=== PATIENT | female | born 1950 | race Caucasian/White ===

== ENCOUNTER 2019-07-11 01:48 | Emergency (ER) | payer MEDICARE, MEDICAID, SELFPAY ==
[2019-07-11 01:57] VITALS: BP 163/74; PULSE 77; RESP 16; TEMP 36.4; O2SAT 98; BMI 31.2
--- NOTE | 2019-07-11 02:05 | ED_ITS ---
Entered by Tram Arauz, acting as scribe for Everette Koroma MD Jul 11, 2019 01:48 HPI - Weakness General: Chief complaint: Weakness Stated complaint: LOW BLOOD SUGER Time Seen by Provider: 07/11/19 02:00 Source: patient and family Mode of arrival: ambulatory History of Present Illness: HPI Narrative: 68 y/o female presents to the ED with complaint of low BS and weakness. Pt states she accidentally took 40 units of novalog at 2130, instead of her Levemir. Her sugar was 76 at home; 117 upon triage. She has had increased lethargy since then. Complaint: lack of energy Onset (ago): hour(s) Duration: now resolved Severity: mild Associated symptoms: Denies chest pain, chills, dysuria, easy bruising, fever(s), headache(s), nausea or vomiting Review of Systems Const: Denies: fever, chills, body aches or change in appetite Eyes: Denies: blurry vision or eye discomfort ENMT: Denies: throat pain or dental pain Card: Denies: chest pain Resp: Denies: shortness of breath GI: Denies: abdominal pain, nausea, vomiting or diarrhea : Denies: painful urination Musc: Denies: neck pain or back pain Skin/Breast: Denies: rash Neuro: Denies: headache Psych: Denies: depression Alonzo/Lymph: Denies: easy bruising All/Imm: Denies: hives PFSH ED PFSH: Statuses (acute, chronic, etc) shown below reflect problem list status as previously entered and may not be historically accurate Social History Smoking and tobacco status: former smoker Physical Exam Const: COMMON NORMALS: no apparent distress, oriented x3, healthy appearing and alert HENMT: COMMON NORMALS: normocephalic and head/scalp atraumatic HEAD & SCALP: normocephalic and atraumatic Eye: COMMON NORMALS: PERRL and EOMs intact bilaterally PUPIL: Yes PERRL Neck/C-Spine: COMMON NORMALS: full ROM and supple Chest: COMMONS NORMALS: inspection of chest normal and palpation of chest normal Resp: COMMON NORMALS: normal respiratory effort, no retractions, no use of accessory muscles and clear to auscultation bilaterally AUSCULTATION: clear to auscultation bilaterally Cardio: COMMON NORMALS: regular rate, regular rhythm and no murmurs RATE: regular rate RHYTHM: regular rhythm GI: COMMON NORMALS: normal to inspection, nondistended, normoactive bowel sounds, soft to palpation, non-tender and no masses PALPATION: Yes soft Extremity: COMMON NORMALS: normal to inspection and full ROM Neuro: COMMON NORMALS: oriented x3, moves all extremities and no focal motor deficits SENSORIUM/ORIENTATION: Yes alert Psych: COMMON NORMALS: mental status grossly normal, thought process normal and cooperative THOUGHT PROCESS: normal thought process Skin: COMMON NORMALS: no rashes or lesions noted and no wounds GENERAL SKIN EXAM: no rashes or lesions noted Course Vital Signs: Vital signs: Vital Signs Temperature 97.6 F 07/11/19 01:57 Pulse Rate 67 07/11/19 03:01 Respiratory Rate 15 07/11/19 03:01 Blood Pressure 137/61 07/11/19 03:01 Pulse Oximetry 97 07/11/19 03:01 MDM - Weakness MDM Narrative: Medical decision making narrative: Patient presents here with hyperglycemia from taking too much insulin on accident. Patient took the insulin 4 hours ago and this past did speak. Patient's glucose is stabilized here and she is stable for discharge. Patient is to follow-up with primary care doctor in 3 to 5 days return if worsening. Lab Data: Labs: Lab Results 07/11/19 07/11/19 07/11/19 Range/Units 01:56 02:38 02:58 POC Glucose 117 140 140 (70-110) mg/dL Discharge Plan Discharge Patient Disposition: Home, Self-Care Clinical Impression: Hypoglycemia Condition: Stable Discharge Orders: Discharge Order (Routine); Ordered 07/11/19 Ordered By: Everette Koroma Referrals: Aquilino Kirby MD [Family Provider] - 4-7 days Discharge Diet: Advance as tolerated Discharge Activity: Resume usual activity Patient Instructions: Diabetic Hypoglycemia (ED) Discharge Date/Time: 07/11/19 03:02 Coding Level of Care Code ED Blind Eyeletter for Chg Fwd Exam Problem Focused The documentation recorded by the Davonte byrd Ashley, accurately reflects the service I personally performed and the decisions made by Ga blair Korby, MD Jul 11, 2019 01:48
[2019-07-11 02:12] LABS: Glucose Point of Care 117 mg/dL (70-110)
--- NOTE | 2019-07-11 02:15 | PC.NURSE ---
Patient reports that she took 40 units of her insulin by accident last night around 2100. Patient states that she has been trying to keep her BS up by eating some sugar. Patient reports that she feels very tired and just concerned that her BS is going to decrease.
[2019-07-11 02:42] LABS: Glucose Point of Care 140 mg/dL (70-110)
[2019-07-11 03:01] VITALS: BP 137/61; PULSE 67; RESP 15; O2SAT 97
[2019-07-11 03:03] LABS: Glucose Point of Care 140 mg/dL (70-110)
== END 2019-07-11 03:02 | disposition home or self-care (01) ==
PROVIDERS: Emergency Provider Emergency Medicine; Family Provider Family Medicine
DX: E16.0 Drug-induced hypoglycemia without coma (principal); T38.3X5A Adverse effect of insulin and oral hypoglycemic [antidiabetic] drugs, initial encounter; Z87.891 Personal history of nicotine dependence
CPT/HCPCS: 36416; 82962; 99281; 99282

== ENCOUNTER 2019-08-25 14:00 | Outpatient (CLI) | payer MEDICARE, MEDICAID, SELFPAY ==
--- NOTE | 2019-08-25 14:09 | CT_ITS ---
WS: [id number] CT scan of the abdominal aorta and arteries of the lower extremities. Additional two-dimensional joe nal and sagittal reconstruction was performed. MIP images were also performed. 08/25/2019 Clinical Data: PERIPHERAL ARTERIAL DISEASE Comparison: CTA abdominal aorta, 10/03/2012 DLP: 1340.[address] scans at [facility] use at least one of these dose optimization techniques: automat ed exposure control; mA and/or kV adjustment per patient size (includes targeted exams where dose is matched to clinical indication); or iterative reconstruction. Findings: The abdominal aorta shows atherosclerotic dilatation but no aneurysm. There is calcification of the w all with mural thrombus throughout the abdominal aorta. The patient is had a stent graft from the low er abdominal aorta extending into the right common iliac artery. The right internal iliac artery show s a central filling defect seen best at axial image 131 of 483. Contrast does flow about this central intraluminal filling defect. The common femoral arteries can bifurcate in the superficial femoral ar teries, popliteal arteries and arteries of the trifurcations show atherosclerotic change on the surfa ce but no occlusions or significant stenoses. Contrast material flows down to the ankles and feet. The lower lungs show no nodules masses or effusions. The intra-abdominal contents are unremarkable. T here are clips in the gallbladder fossa from cholecystectomy. The pelvis is unremarkable. There is de generative arthritic change of the lower thoracic vertebral bodies. There is bilateral spondylolysis at L5-S1. Impression: 1. 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 2. Distal abdominal aortic stent with extension into right common iliac artery. 3. Unusual central filling defect of the right internal iliac artery. 4. Moderate peripheral vascular disease of all the arteries of the lower extremities.
[2019-08-25 14:33] LABS: Blood Urea Nitrogen 21 mg/dL (8-23); Glomerular Filtration Rate 40.7 mL/min (90-130)
[2019-08-25] MEDS: iodixanol 320 mg/mL 100mL Btl IV (14:49)
== END 2019-08-25 14:01 | disposition home or self-care (01) ==
PROVIDERS: Family Provider Family Medicine; PCP Physician Assistant; Visit Provider Surgery
DX: I73.9 Peripheral vascular disease, unspecified (principal); I70.0 Atherosclerosis of aorta
CPT/HCPCS: 75635; 82565; 84520; Q9967

== ENCOUNTER 2019-10-19 17:58 | Inpatient (IN) | payer MEDICARE, MEDICAID, SELFPAY ==
[2019-10-19] VITALS (7 sets, daily range): BP systolic 139–173; BP diastolic 68–84; PULSE 87–93; RESP 15–18; TEMP 36.8–37.1; O2SAT 95–100; BMI 31.6
[2019-10-19 19:43] LABS: Basophils % 0.3 %; Eosinophils # 0.2 10^3/uL (0.0-0.8); Eosinophils % 1.7 %; Hematocrit 41.2 % (37.0-47.0); Hemoglobin 14.3 g/dL (11.5-15.3); Lymphocytes % 22.4 %; Mean Corpuscular HGB Conc 34.7 g/dL (30.0-36.0); Mean Corpuscular Hemoglobin 29.1 pg (28.0-34.0); Mean Corpuscular Volume 83.7 fL (81-99); Mean Platelet Volume 9.8 fL (7.4-10.4); Monocytes # 0.6 10^3/uL (0.2-0.9); Monocytes % 6.7 %; Neutrophils # 6.1 10^3/uL (1.8-7.7); Neutrophils % 68.3 %; Nucleated Red Blood Cells % 0 %; Platelet Count 363 10^3/cmm (130-400); Red Blood Count 4.92 10^6/uL (4.1-5.3); Red Cell Distribution Width 12.8 % (12.1-15.1)
[2019-10-19 20:01] LABS: Alanine Aminotransferase 14 U/L (0-33); Albumin Level 4.1 g/dL (3.5-5.2); Alkaline Phosphatase 80 IU/L (35-105); Anion Gap 16.7 (5-19); Aspartate Amino Transferase 29 U/L (0-32); Blood Urea Nitrogen 12 mg/dL (8-23); Calcium 9.9 mg/dL (8.5-10.5); Carbon Dioxide 27 mmol/L (22-29); Chloride 77 mmol/L (98-107); Globulin 3.2 g/dL (1.3-4.6); Glomerular Filtration Rate 44.7 mL/min (90-130); Glucose 185 mg/dL (65-115); Osmolality Calculated 245 mOsm/kg (285-295); Potassium 3.7 mmol/L (3.5-5.1); Total Bilirubin 0.6 mg/dL (0.15-1.2); Total Protein 7.3 g/dL (6.6-8.7)
[2019-10-19 20:08] LABS: Sodium 117 mmol/L (136-145)
--- NOTE | 2019-10-19 20:09 | W.ED.GENADLT ---
HPI - General Adult General: Chief complaint: General Medical Stated complaint: abnormal labs Time Seen by Provider: 10/19/19 20:09 Source: patient and RN notes reviewed History of Present Illness: HPI narrative: 68-year-old female sent by PCP for low sodium. Patient states that she has had generalized weakness for a week or more gradually worsening. She says day by day this gets worse as well as she feels a little fuzzy or confused at times. She had some loose stool last week that is now back to normal. No vomiting. No new medications. She tells me she is taking all of her medicines as directed. On review of systems she admits to some coughing that she attributes to seasonal allergies but does not feel short of breath at this time. No fever. Associated symptoms: Reports confusion (fuzzy at times and has trouble thinking but not actually confused); Deny chest pain, dyspnea, headache(s), nausea, rash or vomiting Review of Systems General: Reports: 10 or more systems reviewed and unremarkable except in HPI and below Const: Denies: fever(s) or chills Eyes: Denies: change in vision ENMT: Denies: throat pain Card: Denies: chest pain Resp: Denies: dyspnea GI: Denies: abdominal pain, nausea, vomiting or change in bowel habits : Denies: difficulty voiding Musc: Denies: muscle weakness Skin/Breast: Denies: rash Neuro: Reports: difficulty walking and confusion (fuzzy at times and has trouble thinking but not actually confused); Denies: headache(s) Psych: Denies: hopelessness or suicidal ideation Endo: Denies: polyuria Alonzo/Lymph: Denies: easy bruising or easy bleeding All/Imm: Denies: urticaria PFSH ED PFSH: Family History (Updated 07/20/19 @ 11:03 by Janet Zapata LPN) Other Anesthesia complication Social History Smoking and tobacco status: former smoker Physical Exam Const: COMMON NORMALS: no acute distress, average body habitus, patient oriented x3, no limitations, healthy appearing, alert and well nourished HENMT: COMMON NORMALS: normocephalic, external ears normal and Normal external nose present HEAD & SCALP: normocephalic NOSE: Normal external nose present EXTERNAL EAR: Yes external ears normal MOUTH: Normal oral and palatal mucosa present THROAT: posterior oropharynx normal Eye: COMMON NORMALS: Equal, round and reactive pupils present, EOMs intact bilaterally, conjunctivae normal, no scleral icterus and normal visual manning by confrontation CONJUNCTIVA: Yes conjunctivae normal PUPIL: Yes Equal, round and reactive pupils present Neck/C-Spine: COMMON NORMALS: full ROM, no lymphadenopathy, supple, no meningeal signs and no JVD CERVICAL SPINE: Yes cervical ROM normal Lymph: LYMPHATIC: no lymphadenopathy noted Chest: COMMONS NORMALS: normal inspection of the chest Resp: COMMON NORMALS: normal respiratory effort, No retractions, No use of accessory muscles and clear to auscultation bilaterally AUSCULTATION: clear to auscultation bilaterally Cardio: COMMON NORMALS: no JVD, regular rate, regular rhythm, No gallops present (Cardio), No clicks present (Cardio), No murmurs present (Cardio) and No rub (Cardio) RATE: regular rate RHYTHM: regular rhythm GI: COMMON NORMALS: Normal to inspection, nondistended, normoactive bowel sounds present, Soft to palpation and non-tender AUSCULTATION: Yes normoactive bowel sounds PALPATION: Yes Soft to palpation : COMMON NORMALS: Yes no CVA tenderness BLADDER/KIDNEY EXAM: Yes no CVA tenderness Back/Pelvis: COMMON NORMALS: no CVA tenderness Extremity: COMMON NORMALS: normal to inspection Neuro: COMMON NORMALS: patient oriented x3 SENSORIUM/ORIENTATION: Yes alert MENINGEAL SIGNS: Yes no meningeal signs SPEECH: speech normal Psych: COMMON NORMALS: mental status grossly normal, Normal thought process present, cooperative, normal affect, speech normal, activity/motor behavior normal, denies hallucinations, denies homicidal ideation and denies suicidal ideation SPEECH: Yes normal speech THOUGHT PROCESS: Normal thought process present Skin: COMMON NORMALS: no rashes or lesions noted GENERAL SKIN EXAM: no rashes or lesions noted Course Vital Signs: Vital signs: Vital Signs Temperature 98.2 F 10/19/19 18:10 Pulse Rate 92 10/19/19 20:30 Respiratory Rate 18 10/19/19 20:30 Blood Pressure 172/84 10/19/19 20:30 Pulse Oximetry 98 10/19/19 20:30 MDM - General Adult MDM Narrative: Medical decision making narrative: Hyponatremia without clear cause, patient is on hydrochlorothiazide but that is on a new medication. She is nontoxic-appearing. I discussed with the hospitalist who will admit her I have placed bridge orders and included a BMP. Continue IV fluids she received a bolus here and will get maintenance fluids of normal saline at 75 mL's an hour. She is alert and oriented x3 and can go to the [facility] floor at this point. Lab Data: Labs: Lab Results 10/19/19 10/19/19 Range/Units 19:00 19:00 WBC 9.0 (4.0-10.0) 10^3/ uL RBC 4.92 (4.1-5.3) 10^6/u L Hgb 14.3 (11.5-15.3) g/dL Hct 41.2 (37.0-47.0) % MCV 83.7 (81-99) fL MCH 29.1 (28.0-34.0) pg MCHC 34.7 (30.0-36.0) g/dL RDW 12.8 (12.1-15.1) % Plt Count 363 (130-400) 10^3/c mm MPV 9.8 (7.4-10.4) fL Neut % (Auto) 68.3 % Lymph % (Auto) 22.4 % [place] % (Auto) 6.7 % Eos % (Auto) 1.7 % Baso % (Auto) 0.3 % Neut # (Auto) 6.1 (1.8-7.7) 10^3/u L Lymph # (Auto) 2.0 (0.8-4.8) 10^3/u L [place] # (Auto) 0.6 (0.2-0.9) 10^3/u L Eos # (Auto) 0.2 (0.0-0.8) 10^3/u L Baso # (Auto) 0.0 (0.0-0.1) 10^3/u L Nucleated RBC % (a uto) 0 % Nucleated RBCs # 0.0 /100WBC Sodium 117 L* (136-145) mmol/L Potassium 3.7 (3.5-5.1) mmol/L Chloride 77 L (98-107) mmol/L Carbon Dioxide 27 (22-29) mmol/L Anion Gap 16.7 (5-19) BUN 12 (8-23) mg/dL Creatinine 1.2 H (0.5-0.9) mg/dL GFR Calculation 44.7 L (90-130) mL/min Glucose 185 H (65-115) mg/dL Calculated Osmolal ity 245 L (285-295) mOsm/k g Calcium 9.9 (8.5-10.5) mg/dL Total Bilirubin 0.6 (0.15-1.2) mg/dL AST 29 (0-32) U/L ALT 14 (0-33) U/L Alkaline Phosphata se 80 (35-105) IU/L Total Protein 7.3 (6.6-8.7) g/dL Albumin 4.1 (3.5-5.2) g/dL Globulin 3.2 (1.3-4.6) g/dL Imaging Data^: CXR: My impression: NAD Discharge Plan Discharge Patient Disposition: Admitted As Inpatient Condition: Stable Prescriptions: No Action carvedilol 25 mg tablet 25 mg PO BID RF: 0 methimazole 5 mg tablet 5 mg PO DAILY RF: 0 insulin aspart U-100 [Novolog U-100 Insulin aspart] 100 unit/mL solution 2 unit SUBCUT TID RF: 0 clopidogrel [Plavix] 75 mg tablet 75 mg PO DAILY RF: 0 fenofibrate nanocrystallized [Tricor] 145 mg tablet 145 mg PO DAILY RF: 0 rosuvastatin [Crestor] 40 mg tablet 40 mg PO DAILY RF: 0 losartan 50 mg tablet 50 mg PO BID RF: 0 Levemir U-100 Insulin 100 unit/mL solution 40 unit SUBCUT DAILY RF: 0 Anoro Ellipta 62.5-25 mcg/actuation blister with device 1 inh INHALATION DAILY RF: 0 isosorbide mononitrate 60 mg tablet extended release 24 hr 60 mg PO BID RF: 0 venlafaxine [Effexor XR] 150 mg capsule,extended release 24hr 150 mg PO DAILY RF: 0 tizanidine [Zanaflex] 4 mg capsule 4 mg PO DAILY PRN (Reason: MUSCLE SPASMS) RF: 0 hydrochlorothiazide 25 mg tablet 25 mg PO DAILY 90 Days Qty: 90 RF: 3 omeprazole 40 mg capsule,delayed release(DR/EC) See Rx Instructions .ROUTE .COMPLEX RF: 0 nitroglycerin 0.4 mg tablet, sublingual 0.4 mg sublingual PRN PRN (Reason: CHEST PAINS) RF: 0 Ventolin HFA 90 mcg/actuation HFA aerosol inhaler See Rx Instructions .ROUTE .COMPLEX RF: 0 Centrum Silver Women 8 mg iron-400 mcg-300 mcg Tablet 1 tab PO DAILY RF: 0 Referrals: Jocelyne Kirby PA [Primary Care Provider] - Coding Level of Care Code ED Button Tufting Machine Operator for Chg Fwd Exam Comprehensive
[2019-10-19] MEDS: sodium chloride 0.9% 1,000 ML 999 ML IV (20:28)
--- NOTE | 2019-10-19 20:31 | XR_ITS ---
WS: [id number] PORTABLE CHEST HISTORY: cough COMPARISON: 03/22/2019 Prior CABG. Lungs are clear and well expanded. No pleural effusion or pneumothorax. Cardiac size: Normal. Mediastinum/Aorta: Moderate atherosclerosis aorta. No mediastinal widening. No osseous abnormality seen. XR/XR chest 1V portable [id number] IMPRESSION: Moderate calcification thoracic aorta and prior CABG. No acute findings.
[2019-10-19] MEDS: ondansetron 4 MG Tablet PO (20:50)
[2019-10-19] MEDS: sodium chloride 0.9% 500 ML 75 ML IV (22:19)
--- NOTE | 2019-10-19 23:00 | ECG_ITS ---
Measurements Intervals [place] Rate: 90 P: 64 MO: 209 QRS: -47 QRSD: 110 T: 77 QT: 398 QTc: 488 SINUS RHYTHM MARKED LEFT AXIS DEVIATION [QRS AXIS < -30] INFERIOR MYOCARDIAL INFARCTION [40+ ms Q WAVE AND/OR ST/T ABNORMALITY IN II/aVF], OF INDETERMINATE AGE WITH POSTERIOR EXTENSION Compared to ECG 03/22/2019 05:54:43 Left-axis deviation now present T-wave abnormality no longer present Possible ischemia no longer present Myocardial infarct finding still present Electronically Signed On 10-20-2019 13:07:59 CDT by Rikki Stallworth M.D. [id number]
--- NOTE | 2019-10-19 23:12 | PM.HP ---
Providers/Chief Complaint Admitting Physician: Sb Varghese Primary Care Provider: Jocelyne Kirby Chief Complaint: HYPONATREMIA History of Present Illness Romi Yuan is a 68 year old female with past medical history of hypertension, diabetes, coronary artery disease, possible chronic kidney disease who was sent by the primary care provider due to hyponatremia. The patient is found to have sodium of 117. The patient reported generalized weakness and tiredness. The symptoms are present for a week or so. Mild symptoms. No modifying factors. There were no recent changes to her medications. The patient takes hydrochlorothiazide for management of the hypertension. She also reports that she is on strict low-sodium diet. Also the patient reports that she tries to drink a lot of fluids mostly water. She states that it helps with constant dysuria. She denies any chest pain, palpitations, focal muscle weaknesses or sensory loss. Denies headache. She states that her oxygen saturation was low in ER. However it is recorded as 95 on room air. No shortness of breath. She reports loose stools last several days currently resolved. Denies vomiting but reports decreased appetite. Denies fevers or chills. The patient denies any prior episodes of hyponatremia. Review of Systems General: Reports: 10 or more systems reviewed and unremarkable except in HPI and below Medications/Allergies Home Medications Medication Instructions Recorded Confirmed Last Taken Type carvedilol 25 mg tablet 25 mg PO BID 07/20/19 10/19/19 10/18/19 History clopidogrel 75 mg tablet 75 mg PO DAILY 07/20/19 10/19/19 10/18/19 History fenofibrate nanocrystallized 145 145 mg PO DAILY 07/20/19 10/19/19 10/18/19 History mg tablet insulin aspart U-100 100 unit/mL 2 unit SUBCUT TID ml 07/20/19 10/19/19 10/18/19 History subcutaneous solution insulin detemir U-100 100 unit/mL 40 unit SUBCUT DAILY ml 07/20/19 10/19/19 10/18/19 History subcutaneous solution isosorbide mononitrate 60 mg 60 mg PO BID tab 07/20/19 10/19/19 10/18/19 History tablet,extended release 24 hr losartan 50 mg tablet 50 mg PO BID 07/20/19 10/19/19 10/18/19 History methimazole 5 mg tablet 5 mg PO DAILY 07/20/19 10/19/19 10/18/19 History rosuvastatin 40 mg tablet 40 mg PO DAILY 07/20/19 10/19/19 10/18/19 History tizanidine 4 mg capsule 4 mg PO DAILY PRN cap 07/20/19 10/19/19 10/18/19 History umeclidinium 62.5 mcg-vilanterol 1 inh INHALATION DAILY 07/20/19 10/19/19 Unknown History 25 mcg/actuation powdr for inhalation venlafaxine 150 mg 150 mg PO DAILY 07/20/19 10/19/19 10/18/19 History capsule,extended release 24 hr hydrochlorothiazide 25 mg tablet 25 mg PO DAILY 90 Days #90 tab 08/31/19 10/19/19 10/18/19 Rx albuterol sulfate [Ventolin HFA] See Rx Instructions .ROUTE .COMPLEX 10/19/19 10/19/19 Unknown History deojfmvh-aoe-edmt-FA-lutein 1 tab PO DAILY 10/19/19 10/19/19 10/18/19 History [Centrum Silver Women] nitroglycerin 0.4 mg SUBLINGUAL PRN PRN 10/19/19 10/19/19 Unknown History omeprazole See Rx Instructions .ROUTE .COMPLEX 10/19/19 10/19/19 Unknown History Allergies Allergy/AdvReac Type Severity Reaction Status Date / Time cefuroxime [From Ceftin] Allergy ALGY-Rash Verified 07/11/19 02:06 cephalexin [From Keflex] Allergy ALGY-Rash Verified 07/11/19 02:06 hydroxyzine [From Vistaril] Allergy ALGY-Anaphy Verified 07/11/19 02:06 laxis Penicillins Allergy ALGY-Redness Verified 07/11/19 02:06 of Skin prochlorperazine Allergy ALGY-Anaphy Verified 07/11/19 02:06 [From Compazine] laxis promethazine [From Phenergan] Allergy ALGY-Anaphy Verified 07/11/19 02:06 laxis venom-honey bee Allergy ALGY-Anaphy Verified 07/11/19 02:06 laxis PFSH Acute PFSH: Family History (Updated 07/20/19 @ 11:03 by Janet Zapata LPN) Other Anesthesia complication Social History Smoking and tobacco status: former smoker Vitals/I&O/Wt Last Vital Signs Temp 98.8 F 10/19/19 22:00 Pulse 93 10/19/19 22:00 Resp 18 10/19/19 22:00 BP 159/75 10/19/19 22:00 Pulse Ox 95 10/19/19 22:00 Weight last 48 hrs Weight 73.482 kg Physical Exam Narrative: EXAM NARRATIVE: The patient is awake alert and oriented x3. No acute distress. Mood and affect are appropriate. Responses are adequate. Skin is warm and dry. Dry mucous membranes. Eyes PERRLA, extraocular muscle intact. Normal speech. No focal deficits. Cranial nerves II through XII are grossly intact. Heart S1, S2, regular Neck supple, no JVD Lungs are clear bilaterally. No respiratory distress Extremities. No edema cyanosis or calf tenderness bilaterally Data : 10/19/19 19:00 10/19/19 19:00 Other data: Chest x-ray. No significant cardiopulmonary abnormalities. Please see official radiology report when it is available. A&P Additional A&P Information 68-year-old female admitted for hyponatremia. No significant symptoms at this time. Most likely it was progressing for last several days or weeks. Most likely cause is polydipsia, salt restricted diet and hydrochlorothiazide. She might be a little bit dehydrated today due to recent diarrhea which is resolved. She is given a bolus of normal saline in the emergency room and is currently on maintenance NS at 75 cc/h. I am waiting for her second chemistry panel. I asked the nurse to call me with the results. We will adjust the treatments depending on the changes in the sodium level. I am ordering TSH, urine osmolality and sodium level. Additional testing might be necessary. Reported frequent urinations and dysuria. I will check UA. History of coronary artery disease. We will continue home beta-lexy, cholesterol medications and Plavix. Hypertension. Currently stable. I will order as needed hydralazine. DVT prophylaxis. Lovenox. CODE STATUS. Limited code. The patient is okay with chest compressions and defibrillator use but does not want intubation or mechanical ventilation. The plan of care was discussed with the patient. She verbalized understanding and agreement. Attestations Medical Necessity Statement*: Based on my assessment of her current condition and findings the patient will require more than 2 midnights in the hospital. Coding Level of Care Code Acute Career Guidance Counselor for Kiran Holland
[2019-10-19 23:16] LABS: Anion Gap 16.6 (5-19); Blood Urea Nitrogen 10 mg/dL (8-23); Calcium 9.4 mg/dL (8.5-10.5); Carbon Dioxide 26 mmol/L (22-29); Chloride 83 mmol/L (98-107); Creatinine Clr Calc Pharmacy 43.8081; Glomerular Filtration Rate 49.4 mL/min (90-130); Glucose 255 mg/dL (65-115); Osmolality Calculated 259 mOsm/kg (285-295); Potassium 3.6 mmol/L (3.5-5.1); Sodium 122 mmol/L (136-145)
[2019-10-19 23:57] LABS: Thyroid Stimulating Hormone 2.93 uIU/mL (0.27-4.20)
[2019-10-20] VITALS (11 sets, daily range): BP systolic 114–161; BP diastolic 62–78; PULSE 71–104; RESP 16–19; TEMP 36.7–37; O2SAT 93–98
[2019-10-20] MEDS: enoxaparin 40 mg/0.4 mL Syringe SUBCUT ×2 (00:39→22:15)
[2019-10-20 04:13] LABS: Add Urine Microscopic? NO
[2019-10-20 04:33] LABS: Bilirubin Urine Neg (NEGATIVE); Blood Urine Neg (Negative); Glucose Urine UA 1+ (Normal); Ketones Urine Negative (Negative); Leukocyte Esterase Urine Negative (Negative); Nitrate Urine Negative (Negative); Protein Urine Neg (Negative); Urine Appearance Clear (CLEAR); Urine Color Yellow (Yellow); Urobilinogen Urine Norm (Negative); pH Urine 8 (5-7)
[2019-10-20 04:34] LABS: Urine Random Sodium 36 mmol/L
[2019-10-20 04:35] LABS: Basophils % 0.6 %; Eosinophils # 0.1 10^3/uL (0.0-0.8); Eosinophils % 1.9 %; Hematocrit 40.5 % (37.0-47.0); Lymphocytes # 1.5 10^3/uL (0.8-4.8); Lymphocytes % 21.1 %; Mean Corpuscular HGB Conc 34.6 g/dL (30.0-36.0); Mean Corpuscular Hemoglobin 29.2 pg (28.0-34.0); Mean Corpuscular Volume 84.4 fL (81-99); Mean Platelet Volume 9.6 fL (7.4-10.4); Monocytes # 0.6 10^3/uL (0.2-0.9); Monocytes % 8.5 %; Neutrophils # 4.7 10^3/uL (1.8-7.7); Neutrophils % 67.6 %; Nucleated Red Blood Cells % 0 %; Platelet Count 325 10^3/cmm (130-400); Red Cell Distribution Width 12.9 % (12.1-15.1); White Blood Count 6.9 10^3/uL (4.0-10.0)
[2019-10-20 04:55] LABS: Anion Gap 14.6 (5-19); Blood Urea Nitrogen 10 mg/dL (8-23); Calcium 9.2 mg/dL (8.5-10.5); Carbon Dioxide 26 mmol/L (22-29); Chloride 89 mmol/L (98-107); Glomerular Filtration Rate 55.1 mL/min (90-130); Glucose 188 mg/dL (65-115); Osmolality Calculated 263 mOsm/kg (285-295); Potassium 3.6 mmol/L (3.5-5.1); Sodium 126 mmol/L (136-145)
[2019-10-20 04:58] LABS: Albumin Level 3.8 g/dL (3.5-5.2); Anion Gap 16.9 (5-19); Blood Urea Nitrogen 10 mg/dL (8-23); Calcium 9.4 mg/dL (8.5-10.5); Carbon Dioxide 25 mmol/L (22-29); Chloride 88 mmol/L (98-107); Glomerular Filtration Rate 55.1 mL/min (90-130); Glucose 186 mg/dL (65-115); Phosphorus 2.9 mg/dL (2.5-4.5); Potassium 3.9 mmol/L (3.5-5.1); Sodium 126 mmol/L (136-145)
[2019-10-20 05:01] LABS: Estmated Average Glucose 209; Hemoglobin A1C 8.9 % (4.0-6.0)
[2019-10-20 06:55] LABS: Glucose Point of Care 212 mg/dL (70-110)
[2019-10-20] MEDS: clopidogrel 75 mg Tablet PO (08:30)
[2019-10-20] MEDS: pantoprazole DR 40 mg Tablet PO (08:30)
[2019-10-20] MEDS: losartan 50 mg Tablet PO ×2 (08:30→17:13)
[2019-10-20] MEDS: isosorbide mononitrate ER 60 mg Tablet PO ×2 (08:31→17:13)
[2019-10-20] MEDS: carvedilol 25 mg Tablet PO ×2 (08:31→17:12)
[2019-10-20] MEDS: fenofibrate 145 mg Tablet PO (08:31)
[2019-10-20 09:28] LABS: Albumin Level 3.9 g/dL (3.5-5.2); Anion Gap 16.1 (5-19); Blood Urea Nitrogen 8 mg/dL (8-23); Calcium 10.4 mg/dL (8.5-10.5); Carbon Dioxide 26 mmol/L (22-29); Chloride 90 mmol/L (98-107); Glomerular Filtration Rate 55.1 mL/min (90-130); Glucose 189 mg/dL (65-115); Phosphorus 2.9 mg/dL (2.5-4.5); Potassium 4.1 mmol/L (3.5-5.1); Sodium 128 mmol/L (136-145)
--- NOTE | 2019-10-20 09:43 | PC.CHAP ---
Pastoral Care Encounter/Spiritual Assessment Type of Contact [] Declined engineering inspector visit [] Patient/Family/Request visit [] Outpatient visit [] Follow-up visit [] Physician referral [] Code/Alert [x] Routine visit [] Staff referral [] Actively dying [] Patient sleeping [] Family support [] [] Out of room [] Palliative care [] [] Receiving care in room [] Pre-surgical visit [] Trauma [] Long length of stay [] ICU visit [] Other: Relational/Emotional Strength [] Patient feels connected with others/family/visitors/staff [] Distress [] Loneliness/isolation [] Abandonment Spirituality of Patient [] Person of Evelin [] Attends Je[employer] Witness of their Evelin [] Believes in Prayer [] Reads Bible or Temple materials [] There are Spiritual issues to be addressed Junk Removal Specialist Interventions [x] Prayer [] Active listening [] Non-anxious presence [] Spiritual/emotional support [] Crisis/trauma care [] Spiritual counseling [] Bereavement support [] Provided bereavement packet [] Provided Bible/devotional materials [] Provided toy/stuffed animal, coloring book to patient or family member [] Provided Communion [] Anointing/[place] [] Salvation [x] Completed spiritual assessment [] Other: Impact on Illness or Injury [] Angry [] Fearful [] Anxious [] Often cries [] Exhaustion [] Unable to work [] Unable to attend yarsani [] Unable to walk/stand [] Unable to read [] Unable to drive [] Unable to eat/drink [] Unable to sleep [] Unable to be with family [] Patient intubated [] Other: Summary Patient relax and resting well Time spent with patient 10 min
[2019-10-20 11:19] LABS: Glucose Point of Care 250 mg/dL (70-110)
[2019-10-20 11:19] LABS: Glucose Point of Care 280 mg/dL (70-110)
[2019-10-20 12:29] LABS: Albumin Level 3.8 g/dL (3.5-5.2); Anion Gap 16.2 (5-19); Blood Urea Nitrogen 9 mg/dL (8-23); Calcium 10.5 mg/dL (8.5-10.5); Carbon Dioxide 27 mmol/L (22-29); Chloride 89 mmol/L (98-107); Creatinine Clr Calc Pharmacy 43.8081; Glomerular Filtration Rate 49.4 mL/min (90-130); Glucose 224 mg/dL (65-115); Phosphorus 3.2 mg/dL (2.5-4.5); Potassium 4.2 mmol/L (3.5-5.1); Sodium 128 mmol/L (136-145)
[2019-10-20 14:38] LABS: Sodium 125 mmol/L (136-145)
--- NOTE | 2019-10-20 15:01 | P.PN_ITS ---
Subjective Subjective: Interval history: Morning patient states that she is feeling better, no nausea, no vomiting, no episodes of confusion, she denies drinking more than 2 L of fluid a day, she denies dehydration, she states that she has been taking hydrochlorothiazide which she feels is likely the cause of her hyponatremia Vitals/I&O/Wt Last Vital Signs Temp 98.0 F 10/20/19 12:00 Pulse 71 10/20/19 12:00 Resp 18 10/20/19 12:00 BP 119/78 10/20/19 12:00 Pulse Ox 94 10/20/19 12:00 10/20/19 10/20/19 10/20/19 06:59 14:59 22:59 Intake Total 200 / 200 320 / 320 Output Total 650 / 650 Balance -450 / -450 320 / 320 Weight last 48 hrs Weight 73.482 kg Physical Exam Const: COMMON NORMALS: no acute distress and patient oriented x3 HENMT: COMMON NORMALS: normocephalic HEAD & SCALP: normocephalic Neck/C-Spine: COMMON NORMALS: no JVD Resp: COMMON NORMALS: normal respiratory effort, No retractions, No use of accessory muscles and clear to auscultation bilaterally AUSCULTATION: clear to auscultation bilaterally Cardio: COMMON NORMALS: no JVD, regular rate, regular rhythm, S1 normal heart sound present and S2 normal heart sound present RATE: regular rate RHYTHM: regular rhythm HEART SOUNDS: S1 normal heart sound present and S2 normal heart sound present GI: COMMON NORMALS: Normal to inspection, nondistended, normoactive bowel sounds present, Soft to palpation, non-tender, No hepatosplenomegaly present, no masses and no bruits PALPATION: Yes Soft to palpation and Yes No hepatosplenomegaly present Extremity: COMMON NORMALS: capillary refill normal, no clubbing, cyanosis or edema, no calf tenderness and no pedal edema Neuro: COMMON NORMALS: patient oriented x3 Psych: COMMON NORMALS: mental status grossly normal Data : 10/20/19 04:00 10/20/19 13:40 A&P Assessment and plan (1) Hyponatremia: -Serum sodium 125 -Some component of hypovolemic hyponatremia, will start gentle IV hydration -Hold hydrochlorothiazide on discharge Status: Acute (2) COPD (chronic obstructive pulmonary disease): Status: Acute (3) Diabetes mellitus: -Continue Levemir 40 units daily, low-dose sliding scale Status: Acute (4) Dyslipidemia: Status: Acute (5) ASHD (arteriosclerotic heart disease): Status: Acute (6) HTN (hypertension): Status: Acute Attestations Medical Necessity Statement*: Patient requires continued hospitalization for hyponatremia Coding Level of Care Code Acute Field Technical Assistant for [facility] Diagnoses Hyponatremia E87.1 COPD (chronic obstructive pulmonary disease) J44.9 Diabetes mellitus E11.9 Dyslipidemia E78.5 ASHD (arteriosclerotic heart disease) I25.10 HTN (hypertension) I10
[2019-10-20] MEDS: sodium chloride 0.9% 1,000 ML 100 ML IV (15:13)
[2019-10-20 16:57] LABS: Glucose Point of Care 190 mg/dL (70-110)
[2019-10-20 20:34] LABS: Sodium 126 mmol/L (136-145)
[2019-10-20 21:46] LABS: Glucose Point of Care 236 mg/dL (70-110)
[2019-10-21] VITALS (7 sets, daily range): BP systolic 118–166; BP diastolic 61–73; PULSE 80–83; RESP 16–20; TEMP 36.6–36.9; O2SAT 94–97
[2019-10-21 01:31] LABS: Sodium 132 mmol/L (136-145)
[2019-10-21] MEDS: sodium chloride 0.9% 1,000 ML 100 ML IV ×2 (01:35→12:17)
[2019-10-21 06:50] LABS: Glucose Point of Care 153 mg/dL (70-110)
[2019-10-21 07:32] LABS: Basophils % 0.2 %; Eosinophils # 0.1 10^3/uL (0.0-0.8); Eosinophils % 1.9 %; Hematocrit 36.1 % (37.0-47.0); Hemoglobin 12.3 g/dL (11.5-15.3); Lymphocytes # 1.7 10^3/uL (0.8-4.8); Lymphocytes % 29.4 %; Mean Corpuscular HGB Conc 34.1 g/dL (30.0-36.0); Mean Corpuscular Hemoglobin 29.6 pg (28.0-34.0); Mean Platelet Volume 9.4 fL (7.4-10.4); Monocytes # 0.4 10^3/uL (0.2-0.9); Monocytes % 7.7 %; Neutrophils # 3.4 10^3/uL (1.8-7.7); Neutrophils % 60.6 %; Nucleated Red Blood Cells % 0 %; Platelet Count 288 10^3/cmm (130-400); Red Blood Count 4.15 10^6/uL (4.1-5.3); Red Cell Distribution Width 13.2 % (12.1-15.1); White Blood Count 5.7 10^3/uL (4.0-10.0)
[2019-10-21 07:51] LABS: Blood Urea Nitrogen 13 mg/dL (8-23); Calcium 9.6 mg/dL (8.5-10.5); Carbon Dioxide 24 mmol/L (22-29); Chloride 100 mmol/L (98-107); Creatinine Clr Calc Pharmacy 43.8081; Glomerular Filtration Rate 49.4 mL/min (90-130); Glucose 162 mg/dL (65-115); Osmolality Calculated 278 mOsm/kg (285-295); Sodium 134 mmol/L (136-145)
[2019-10-21] MEDS: losartan 50 mg Tablet PO (08:04)
[2019-10-21] MEDS: fenofibrate 145 mg Tablet PO (08:04)
[2019-10-21] MEDS: clopidogrel 75 mg Tablet PO (08:05)
[2019-10-21] MEDS: isosorbide mononitrate ER 60 mg Tablet PO (08:05)
[2019-10-21] MEDS: pantoprazole DR 40 mg Tablet PO (08:05)
[2019-10-21 11:25] LABS: Glucose Point of Care 264 mg/dL (70-110)
--- NOTE | 2019-10-21 12:41 | PM.DCS ---
Discharge Providers Date of Admission: 10/19/19 21:23 Date of Discharge: October 21, 2019 Attending Provider at Admission: Sb Varghese Attending Provider at Discharge: Moe Butler MD Primary Care Provider: Jocelyne Kirby Diagnoses at Discharge Discharge Diagnosis (1) Hyponatremia: Status: Acute (2) COPD (chronic obstructive pulmonary disease): Status: Acute (3) Diabetes mellitus: Status: Acute (4) Dyslipidemia: Status: Acute (5) ASHD (arteriosclerotic heart disease): Status: Acute (6) HTN (hypertension): Status: Acute Reason for Visit Reason for Visit: Reason For Visit: HYPONATREMIA Hospital Course Discharge Summary: Romi Yuan is a 68 year old female with past medical history of hypertension, diabetes, coronary artery disease, possible chronic kidney disease who was sent by the primary care provider due to hyponatremia. The patient is found to have sodium of 117. The patient reported generalized weakness and tiredness. The symptoms are present for a week or so. Mild symptoms. No modifying factors. There were no recent changes to her medications. The patient takes hydrochlorothiazide for management of the hypertension. She also reports that she is on strict low-sodium diet. Also the patient reports that she tries to drink a lot of fluids mostly water. She states that it helps with constant dysuria. Patient was dehydrated on examination during admission so she was started on IV fluids and hydrochlorothiazide was withheld. She responded well to that treatment and her sodium had improved to 134 on day of discharge. Hydrochlorothiazide her blood pressure went into home the higher side so amlodipine was added to her regimen. She is been discharged in hemodynamically stable condition with advised to follow-up with her primary care physician in 7 to 10 days with a repeat BMP. Review of old records showed that her EF of 50 to 35% with mild concentric LVH and grade 1 diastolic dysfunction back in March 2019. Cardiac angiogram from March 2019 showed severe triple-vessel disease with occlusion of SVG to RCA and SVG to circumflex by LOVETT to LAD was patent. At that time patient was advised to follow-up with cardiology in 1 month she never did so a follow-up with Dr. Fiore has been told for her in 2 weeks. Patient has been made aware of the same. At present patient is chest pain-free and does not have any symptoms of unstable angina. Physical Exam Narrative: EXAM NARRATIVE: The patient is awake alert and oriented x3. No acute distress. Mood and affect are appropriate. Responses are adequate. Skin is warm and dry. Dry mucous membranes. Eyes PERRLA, extraocular muscle intact. Normal speech. No focal deficits. Cranial nerves II through XII are grossly intact. Heart S1, S2, regular Neck supple, no JVD Lungs are clear bilaterally. No respiratory distress Extremities. No edema cyanosis or calf tenderness bilaterally Discharge Data Data Completed and Pending: Completed Studies During Hospitalization Category Date Time Status XR chest 1V tez ble [id number] Stat Exams 10/19/19 20:31 Completed Pending at discharge Category Date Time Status Complete Blood Co unt w/Auto AM LABS Lab 10/22/19 04:00 Ordered Osmolality Urine Routine Lab 10/19/19 23:07 Received Sodium Q6H Lab 10/21/19 13:00 Ordered Labs from last 24 hours 10/21/19 10/21/19 10/21/19 11:01 07:15 07:15 WBC 5.7 RBC 4.15 Hgb 12.3 Hct 36.1 L MCV 87.0 MCH 29.6 MCHC 34.1 RDW 13.2 Plt Count 288 MPV 9.4 Neut % (Auto) 60.6 Lymph % (Auto) 29.4 Mckinley % (Auto) 7.7 Eos % (Auto) 1.9 Baso % (Auto) 0.2 Neut # (Auto) 3.4 Lymph # (Auto) 1.7 Mckinley # (Auto) 0.4 Eos # (Auto) 0.1 Baso # (Auto) 0.0 Nucleated RBC % (a uto) 0 Nucleated RBCs # 0.0 Sodium 134 L Potassium 4.0 Chloride 100 Carbon Dioxide 24 Anion Gap 14.0 BUN 13 Creatinine 1.1 H GFR Calculation 49.4 L Glucose 162 H POC Glucose 264 Calculated Osmolal ity 278 L Calcium 9.6 10/21/19 10/21/19 10/20/19 06:36 01:10 21:04 WBC RBC Hgb Hct MCV MCH MCHC RDW Plt Count MPV Neut % (Auto) Lymph % (Auto) Mckinley % (Auto) Eos % (Auto) Baso % (Auto) Neut # (Auto) Lymph # (Auto) Mckinley # (Auto) Eos # (Auto) Baso # (Auto) Nucleated RBC % (a uto) Nucleated RBCs # Sodium 132 L Potassium Chloride Carbon Dioxide Anion Gap BUN Creatinine GFR Calculation Glucose POC Glucose 153 236 Calculated Osmolal ity Calcium 10/20/19 10/20/19 10/20/19 19:50 16:16 13:40 WBC RBC Hgb Hct MCV MCH MCHC RDW Plt Count MPV Neut % (Auto) Lymph % (Auto) Mckinley % (Auto) Eos % (Auto) Baso % (Auto) Neut # (Auto) Lymph # (Auto) Mckinley # (Auto) Eos # (Auto) Baso # (Auto) Nucleated RBC % (a uto) Nucleated RBCs # Sodium 126 L 125 L Potassium Chloride Carbon Dioxide Anion Gap BUN Creatinine GFR Calculation Glucose POC Glucose 190 Calculated Osmolal ity Calcium Vitals: Last Vital Signs Temp 98.4 F 10/21/19 11:06 Pulse 83 10/21/19 11:06 Resp 18 10/21/19 11:06 BP 162/73 10/21/19 11:06 Pulse Ox 97 10/21/19 11:06 Discharge Plan Discharge Patient Disposition: Home, Self-Care Condition: Stable Prescriptions: New amlodipine 10 mg tablet 10 mg PO DAILY Qty: 30 RF: 0 Continued carvedilol 25 mg tablet 25 mg PO BID RF: 0 methimazole 5 mg tablet 5 mg PO DAILY RF: 0 insulin aspart U-100 [Novolog U-100 Insulin aspart] 100 unit/mL solution 2 unit SUBCUT TID RF: 0 clopidogrel [Plavix] 75 mg tablet 75 mg PO DAILY RF: 0 fenofibrate nanocrystallized [Tricor] 145 mg tablet 145 mg PO DAILY RF: 0 rosuvastatin [Crestor] 40 mg tablet 40 mg PO DAILY RF: 0 losartan 50 mg tablet 50 mg PO BID RF: 0 Levemir U-100 Insulin 100 unit/mL solution 40 unit SUBCUT DAILY RF: 0 Anoro Ellipta 62.5-25 mcg/actuation blister with device 1 inh INHALATION DAILY RF: 0 isosorbide mononitrate 60 mg tablet extended release 24 hr 60 mg PO BID RF: 0 venlafaxine [Effexor XR] 150 mg capsule,extended release 24hr 150 mg PO DAILY RF: 0 tizanidine [Zanaflex] 4 mg capsule 4 mg PO DAILY PRN (Reason: MUSCLE SPASMS) RF: 0 omeprazole 40 mg capsule,delayed release(DR/EC) See Rx Instructions .ROUTE .COMPLEX RF: 0 nitroglycerin 0.4 mg tablet, sublingual 0.4 mg sublingual PRN PRN (Reason: CHEST PAINS) RF: 0 Ventolin HFA 90 mcg/actuation HFA aerosol inhaler See Rx Instructions .ROUTE .COMPLEX RF: 0 Centrum Silver Women 8 mg iron-400 mcg-300 mcg Tablet 1 tab PO DAILY RF: 0 Discontinued hydrochlorothiazide 25 mg tablet 25 mg PO DAILY 90 Days Qty: 90 RF: 3 Discharge Orders: Discharge Order (Routine); Ordered 10/21/19 Ordered By: Moe Butler Referrals: Smiley Fiore MD [Physician] - 2 weeks ([facility] [place] [place]. You will need to call Wednesday and make an hospital follow up appointment in [address] Fiore.) Jocelyne Kirby PA [Primary Care Provider] - 7-10 days ([facility] is closed today. You will need to call Wednesday and make an hospital follow up appoinment with Dr. Kirby your primary care physician in 7-10 days.) Discharge Diet: Cardiac Discharge Activity: Resume usual activity Patient Instructions: Amlodipine (By mouth), Heart Healthy Diet (DC), Hyponatremia (DC) Activity Restrictions/Additional Instructions: Check BMP in 1 week and follow up with your PCP Discharge Date/Time: 10/21/19 15:17 Discharge Attestations Time Spent in Discharge Care*: greater than 30 min Specific Discharge Activities: Specific discharge activities: educating patient, discussing with pcp/other providers, discussing with casework supervisor/social workers/dc planners, documenting/other paperwork and evaluating patient/reviewing data Status at Discharge: Cognitive status at discharge: cognitively intact, Behavioral status at discharge: cooperative, Functional status at discharge: independent ambulation Overall status at discharge: patient is back to baseline Quality Metrics Clinical Quality Measures During this hospital stay, did patient experience: None Coding Level of Care Code Acute Administrative Dietitian for [facility] Diagnoses Hyponatremia E87.1 COPD (chronic obstructive pulmonary disease) J44.9 Diabetes mellitus E11.9 Dyslipidemia E78.5 ASHD (arteriosclerotic heart disease) I25.10 HTN (hypertension) I10
[2019-10-21 13:48] LABS: Sodium 133 mmol/L (136-145)
[2019-10-23 15:00] LABS: Osmolality Urine 123 mOsm/kg (50-1200)
== END 2019-10-21 15:17 | disposition home or self-care (01) | DRG 641 ==
LOC: ER 21:28 → MEDSURG 21:41
PROVIDERS: Emergency Medicine; Family Medicine; Admitting Provider Internal Medicine; PCP Physician Assistant; Visit Provider Student in an Organized Health Care Education/Training Program
DX: E87.1 Hypo-osmolality and hyponatremia (principal); E86.0 Dehydration; E11.22 Type 2 diabetes mellitus with diabetic chronic kidney disease; I12.9 Hypertensive chronic kidney disease with stage 1 through stage 4 chronic kidney disease, or unspecified chronic kidney disease; N18.9 Chronic kidney disease, unspecified; I25.10 Atherosclerotic heart disease of native coronary artery without angina pectoris; Z87.891 Personal history of nicotine dependence; J44.9 Chronic obstructive pulmonary disease, unspecified; E78.5 Hyperlipidemia, unspecified; Z79.4 Long term (current) use of insulin; Z79.02 Long term (current) use of antithrombotics/antiplatelets
CPT/HCPCS: 12345; 36415; 36416; 71045; 80048; 80053; 80069; 81003; 82962; 83036; 83735; 83935; 84295; 84300; 84443; 85025; 93005; 96372; 97116; 97161; 97165; 97530; 99282; J1650; J1815; J7030; J7040; Q0162

== ENCOUNTER 2019-11-03 09:53 | Outpatient (CLI) | payer MEDICARE, MEDICAID, SELFPAY ==
--- NOTE | 2019-11-03 10:32 | MR_ITS ---
WS: [id number] MRI CERVICAL SPINE NONCONTRAST TECHNIQUE: Sagittal T1, T2 and STIR imaging. Axial T2, gradient, and fiesta imaging. CLINICAL INFORMATION: ATAXIA COMPARISON: None. FINDINGS: Straightening of the normal cervical lordosis. Cord signal is normal. Mild disc bulging C3-C4 C4-C5 C 5-C6 and C6-C7. C2-C3: Normal. C3-C4: Central disc osteophyte protrusion with slight contact of the cervical cord. Mild central sarah l stenosis. Mild bilateral bony foraminal narrowing with mild to moderate facet arthropathy. C4-C5: Right pericentral disc osteophyte protrusion with slight indentation on the right ventral cerv ical cord. Mild central canal stenosis. Mild bilateral bony foraminal narrowing left greater than rig ht with moderate facet arthropathy. C5-C6: Disc osteophyte complexes with endplate ridging. Mild central canal stenosis. Moderate bilater al bony foraminal narrowing with moderate facet arthropathy. C6-C7: Left pericentral disc osteophyte protrusion with slight indentation on the cervical cord. Mild central canal stenosis. Moderate right and no significant left foraminal narrowing. Mild facet arthr opathy. C7-T1: Normal. Partially empty sella. Small vessel changes in the christine with lacunar infarcts. MR/MR cervical spin wo con* [id number] IMPRESSION: 1. Straightening of the normal cervical lordosis. Cord signal is normal. 2. Small disc osteophyte protrusions with mild central canal stenosis at C3-C4 C4-C5 C5-C6 and C6-C7 with slight indentation on cervical cord at these levels . 3. Moderate bony foraminal narrowing worse at bilateral C5-C6 and right C6-C7.
--- NOTE | 2019-11-03 10:32 | MR_ITS ---
WS: [id number] MRI HEAD WITH CONTRAST TECHNIQUE: Sagittal T1, T2 axial, T2 axial FLAIR, axial susceptibility weighted imaging, axial diffus ion weighted images, and coronal T2 images were obtained. Pre and post-T1 axial and post T1 coronal i mages. ADC and FSPGR images. CLINICAL INFORMATION: ATAXIA COMPARISON: None. FINDINGS: No evidence of restricted diffusion to suggest acute ischemia. Ventricular system and basal cisterns are patent. Moderate small vessel changes with mild parenchymal volume loss. Small vessel changes in the christine. Incidental retrocerebellar arachnoid cyst. Numerous chronic lacunar infarcts in the cerebel lum bilaterally. Chronic lacunar infarcts in the right williamson radiata and left thalamus. Proximal 7th and 8th cranial nerves appear normal. Normal vascular flow voids at the skull base. Trac e mucosal thickening in the mastoid air cells. Paranasal sinuses are well aerated with mild mucosal t hickening in the ethmoid air cells. Incidental partially empty sella. Normal optic chiasm and pituitary infundibulum. Moderate symmetric atrophy temporal lobes and hippocampal formations. No abnormal gadolinium enhancement. Dural venous s inuses are normal in appearance. MR/MR head wo/w con [id number] IMPRESSION: 1. No evidence of restricted diffusion to suggest acute ischemia. 2. Numerous chronic lacunar infarcts in the cerebellum bilaterally. Small vess el changes in the christine. 3. Moderate small vessel changes with mild parenchymal volume loss. 4. Chronic lacunar infarcts in the right williamson radiata and left thalamus. 5. Chronic small cortical infarct in the left parasagittal parietal lobe. 6. Incidental retrocerebellar arachnoid cyst. 7. Moderate symmetric atrophy involving the temporal lobes and hippocampal for mations. 8. No abnormal gadolinium enhancement.
== END 2019-11-03 09:54 | disposition home or self-care (01) ==
LOC: RADWPI 09:58
PROVIDERS: PCP Physician Assistant; Visit Provider Physician Assistant
DX: R27.0 Ataxia, unspecified (principal); I63.9 Cerebral infarction, unspecified; G93.0 Cerebral cysts; G31.9 Degenerative disease of nervous system, unspecified
CPT/HCPCS: 70553; 72141; A9579

== ENCOUNTER → 2020-02-21 12:57 | Outpatient (BNVA) | payer MEDICARE, MEDICAID, SELFPAY | PROVIDERS: PCP Physician Assistant; Referring Provider Physician Assistant; Visit Provider Internal Medicine | DX: E05.00 Thyrotoxicosis with diffuse goiter without thyrotoxic crisis or storm (principal); E11.22 Type 2 diabetes mellitus with diabetic chronic kidney disease; E11.65 Type 2 diabetes mellitus with hyperglycemia; E11.59 Type 2 diabetes mellitus with other circulatory complications; I25.10 Atherosclerotic heart disease of native coronary artery without angina pectoris; I10 Essential (primary) hypertension | CPT/HCPCS: 99204 ==

== ENCOUNTER → 2020-03-20 14:34 | Outpatient (BNVA) | payer MEDICARE, MEDICAID, SELFPAY | PROVIDERS: PCP Physician Assistant; Visit Provider Dermatology | DX: D48.9 Neoplasm of uncertain behavior, unspecified (principal) | CPT/HCPCS: 88304 ==

== ENCOUNTER 2020-07-05 13:08 | Outpatient (CLI) | payer MEDICARE, MEDICAID, SELFPAY ==
--- NOTE | 2020-07-05 13:16 | MM_ITS ---
WS: [id number] BILATERAL DIGITAL SCREENING MAMMOGRAPHY WITH CAD CLINICAL INFORMATION: SCREENING HISTORY: Screening mammogram. No current complaints. COMPARISON: 2015 TECHNIQUE: Bilateral CC and MLO views. FINDINGS: Scattered fibroglandular densities bilaterally. No suspicious focal mass, asymmetry, calcifications, or architectural distortion. No evidence of malignancy. Punctate and lucent centered calcifications. MM/[place] [id number] IMPRESSION: BI-RADS: 2-Benign FOLLOW UP: 1 Year Follow-up Recommend return to annual screening mammography.
== END 2020-07-05 13:09 | disposition home or self-care (01) ==
LOC: RADSHAW 13:10
PROVIDERS: PCP Physician Assistant; Visit Provider Physician Assistant
DX: Z12.31 Encounter for screening mammogram for malignant neoplasm of breast (principal)
CPT/HCPCS: 77067

== ENCOUNTER → 2020-09-10 11:06 | Outpatient (BNVA) | payer MEDICARE, MEDICAID, SELFPAY | PROVIDERS: PCP Physician Assistant; Visit Provider Surgery | DX: L98.9 Disorder of the skin and subcutaneous tissue, unspecified (principal); Z12.11 Encounter for screening for malignant neoplasm of colon | CPT/HCPCS: 87635 ==

== ENCOUNTER 2020-09-16 07:27 | Day surgery (SDC) | payer MEDICARE, MEDICAID, SELFPAY ==
[2020-09-13 11:27] VITALS: BMI 32.4
[2020-09-16] VITALS (7 sets, daily range): BP systolic 165–198; BP diastolic 92–111; PULSE 89–93; RESP 14–20; TEMP 36.1–36.6; O2SAT 96–100
--- NOTE | 2020-09-16 07:52 | ANES.PREANE2 ---
Pre-Anesthetic Assessment Pre-Anesthetic Assessment: Height/Weight: Height 1.52 m Weight 75.296 kg Preop Diagnosis: Screening colonoscopy, suspicious skin lesion left forearm Proposed Procedure: Operation Date: 09/16/20 09:00 Proposed Procedures p Colonoscopy [id number] Z12.11 L98.9(Not Applicable) - Abdifatah Tobar MD p Excision of left arm skin lesion(Left) - Abdifatah Tobar MD Was Beta Smitha taken within 24 hours: N/A Was Clonidine taken within 24 hours: N/A Social: Social History: No alcohol and No tobacco Exam: Pre-Anes Outpt Exam: alert, oriented x 3, clear to auscultation bilaterally and regular rate & rhythm Airway: Submandibular: WNL Cervical ROM: WNL MP: 2 Dentition: Chipped Pulmonary: Pulmonary: COPD Comments: former smoker CV/HEM: CV/HEM: CAD and HTN : : None reported Hepatic: Hepatic: None reported GI: GI: None reported Metabolic: Metabolic: DM and Hyperlipidemia Musc/skel: Musc/skel: None reported Neuropsych: Neuropsych: Depression Anesthetic Plan: ASA status: 3 Anesthesia: MAC PFSH Anesthesia PFSH: Medical History (Updated 08/26/20 @ 14:13 by Dionne Flores) Anxiety ASHD (arteriosclerotic heart disease) Carotid arterial disease COPD (chronic obstructive pulmonary disease) Diabetes mellitus Dyslipidemia History of CVA (cerebrovascular accident) History of myocardial infarction History of skin cancer HTN (hypertension) PAD (peripheral artery disease) Surgical History History of endovascular stent graft for abdominal aortic aneurysm (AAA) S/P CABG (coronary artery bypass graft) S/P cardiac catheterization S/P cataract surgery S/P cholecystectomy S/P hysterectomy with oophorectomy S/P skin and subcutaneous tissue surgery Family History Sister Mark's disease Sister No problems noted. Mother No problems noted. Other Anesthesia complication Social History Smoking and tobacco status: former smoker Alcohol intake: current Alcohol intake frequency: holidays/special occasions only Data Anesthesia Cardiac Studies: No Data to Display
[2020-09-16 08:01] LABS: Glucose Point of Care 30 mg/dL (70-110)
[2020-09-16 08:01] LABS: Glucose Point of Care 162 mg/dL (70-110)
--- NOTE | 2020-09-16 08:04 | W.PM.OPSUD ---
Surgery/Procedure H&P Update DATE OF PROCEDURE: September 16, 2020 DATE H&P PERFORMED: 08/26/20 H&P UPDATE INFORMATION: I have reviewed H&P completed within last 30 days, I have examined patient prior to procedure and No changes to prior documentation PREOP DIAGNOSIS: Screening colonoscopy, suspicious skin lesion left forearm PLANNED PROCEDURE: Operation Date: 09/16/20 09:00 Proposed Procedures p Colonoscopy [id number] Z12.11 L98.9(Not Applicable) - Abdifatah Tobar MD p Excision of left arm skin lesion(Left) - Abdifatah Tobar MD
[2020-09-16] MEDS: sodium chloride 0.9% 1,000 ML 30 ML IV (08:25)
[2020-09-16] MEDS: lidocaine 1% INJ 20 mL IM (10:28)
[2020-09-16] MEDS: neomycin-poly-bacitracin oint 28 gm 1 APPLIC TOPICAL (10:34)
--- NOTE | 2020-09-16 11:12 | ANE.PACU2 ---
Inpatient post-anesthesia follow up: Airway intact: Yes Vital signs: Temperature 97.7 F Pulse Rate 93 Respiratory Rate 18 Blood Pressure 168/95 Pulse Oximetry 96 Oxygen Delivery Me thod Room Air Oxygen Flow Rate Fraction of Inspir ed Oxygen Hydration adequate: No Nausea and vomiting: Yes Pain level: 3 Mental status: Baseline
--- NOTE | 2020-09-16 11:21 | PM.OP ---
Operative Report Date of procedure: September 16, 2020 Pre-op Diagnosis: 1. Screening colonoscopy 2. Suspicious skin lesion left forearm x2 Post-op Diagnosis: 1. Internal hemorrhoids 2. 7 mm pedunculated polyp descending colon 3. Sigmoid diverticulosis 4. 2 x 2 centimeter suspicious skin lesion left forearm distal 5. 2 x 2 and a separate 1 x 0.5cm suspicious skin lesion proximal forearm Procedure Done: 1. Colonoscopy with polypectomy using hot snare 2. Excision of suspicious skin lesion proximal left forearm of 2 lesions measuring 2 x 2 and 1 x 0.5 cm 3. Intermediate complex closure of surgical wound proximal left forearm of defect measuring 7 x 4 cm 4. Excision of suspicious skin lesion distal left forearm of suspicious skin lesion measuring 2 x 2 cm 5. Intermediate complex closure of surgical wound distal left forearm of defect measuring 5 x 3 cm Specimens removed/disposition: 1. Descending colon polyp 2. Suspicious skin lesion distal left forearm 3. Suspicious skin lesion proximal left forearm Surgeon: Abdifatah Tobar Anesthesia: MAC Condition: stable Disposition: PACU Procedure: The patient was taken to the operating room, placed under MAC and her left forearm was prepped and draped in a sterile manner. 1% lidocaine mixed with 0.5% Marcaine was infiltrated around the 2 lesions. Using 15 blade an elliptical oblique 7 x 4 cm incision was made to incorporate the 2 suspicious skin lesions proximally on the left forearm with one measuring 2 x 2 cm and another lesion measuring 1 x 0.5 cm and ensuring adequate margins. The subcutaneous tissues were divided using electrocautery and the specimen was dissected free from the underlying muscular fascia and sent to pathology in formalin. The defect could not be closed with simple closure and therefore using electrocautery undermining was performed under both the subcutaneous flaps for about 3 cm in order to approximate the skin edges. Hemostasis was ensured, the subcutaneous tissues were approximated using running 3-0 Vicryl suture and skin was closed using running 3-0 Prolene suture. Antibiotic cream, Telfa, Kerlix and Juanjo was used to cover the incisions. Using 15 blade an elliptical oblique 5 x 3 cm incision was made to incorporate the suspicious skin lesion distally on the left forearm with lesion measuring 2 x 2 and ensuring adequate margins. The subcutaneous tissues were divided using electrocautery and the specimen was dissected free from the underlying muscular fascia and sent to pathology in formalin. The defect could not be closed with simple closure and therefore using electrocautery undermining was performed under both the subcutaneous flaps for about 3 cm in order to approximate the skin edges. Hemostasis was ensured, the subcutaneous tissues were approximated using running 3-0 Vicryl suture and skin was closed using running 3-0 Prolene suture. Antibiotic cream, Telfa, Kerlix and Juanjo was used to cover the incisions. The patient was placed in left lateral position and a digital rectal exam revealed internal hemorrhoids. The colonoscope was introduced and advanced up to the cecum. The colon prep was fair. The colonoscope was slowly withdrawn/ Cecum: Normal Ascending colon: Normal Transverse colon: Normal Descending colon: 7 mm pedunculated polyp removed with a hot snare Sigmoid colon: Mild diverticulosis Rectum:: Internal hemorrhoids on retroflexion DEMOND:: Into hemorrhoids
== END 2020-09-16 12:30 | disposition home or self-care (01) ==
PROVIDERS: PCP Physician Assistant; Visit Provider Surgery
PROC: 0DJD8ZZ Inspection of Lower Intestinal Tract, Via Natural or Artificial Opening Endoscopic (ICD-10-PCS; CPT 45378; principal; 2020-09-16 08:50)
PROC: (CPT 11406; 2020-09-16 08:50)
DX: Z12.11 Encounter for screening for malignant neoplasm of colon (principal); L85.8 Other specified epidermal thickening; K64.8 Other hemorrhoids; D12.4 Benign neoplasm of descending colon; K57.30 Diverticulosis of large intestine without perforation or abscess without bleeding; J44.9 Chronic obstructive pulmonary disease, unspecified; Z87.891 Personal history of nicotine dependence; I25.10 Atherosclerotic heart disease of native coronary artery without angina pectoris; I10 Essential (primary) hypertension; E11.9 Type 2 diabetes mellitus without complications; E78.5 Hyperlipidemia, unspecified; Z86.73 Personal history of transient ischemic attack (TIA), and cerebral infarction without residual deficits; I25.2 Old myocardial infarction
CPT/HCPCS: 11406; 12034; 45385; 36416; 82962; 88304; 88305; J2704; J3490; J7030

== ENCOUNTER → 2020-10-29 12:20 | Outpatient (BNVA) | payer MEDICARE, MEDICAID, SELFPAY | PROVIDERS: PCP Physician Assistant; Visit Provider Surgery | DX: L98.9 Disorder of the skin and subcutaneous tissue, unspecified (principal) | CPT/HCPCS: 88304 ==

== ENCOUNTER 2021-03-18 15:31 | Outpatient (CLI) | payer MEDICARE, MEDICAID, SELFPAY ==
--- NOTE | 2021-03-18 15:45 | XR_ITS ---
WS: [id number] SCREENING DEXA SCAN [facility] CLINICAL INFORMATION: POSTMENOPAUSAL COMPARISON: 2015 FINDINGS: The L1-L4 bone mineral density measures 1.059 g/cm2. This corresponds to a T score score of -1.0 and Z score of 0.4. Left femoral neck bone mineral density measures 0.827 g/cm2. This corresponds to a T score of -1.4 an d Z score of -0.2. Right femoral neck bone mineral density measures 0.818 g/cm2. This corresponds to a T score -1.5of an d Z score of -0.2. Mean femoral neck bone mineral density measures 0.822 g/cm2. This corresponds to a T score of -1.5 an d Z score of -0.2. XR/XR DEXA axial skeleton* [id number] IMPRESSION: Osteopenia Patient's FRAX calculated 10 year probability for major osteoporotic fracture i s 39.6 % and osteoporotic hip fracture is 16.4%.
== END 2021-03-18 15:32 | disposition home or self-care (01) ==
PROVIDERS: PCP Physician Assistant; Visit Provider Physician Assistant
DX: Z78.0 Asymptomatic menopausal state (principal); M85.80 Other specified disorders of bone density and structure, unspecified site
CPT/HCPCS: 77080

== ENCOUNTER 2021-11-13 15:06 | Outpatient (CLI) | payer MEDICARE, MEDICAID, SELFPAY ==
--- NOTE | 2021-11-13 15:13 | CT_ITS ---
WS: [id number] CT HEAD TECHNIQUE: Noncontrast CT of the head obtained from the skullbase to the vertex. CLINICAL INFORMATION: CLOSED HEAD INJURY COMPARISON: MRI November 03, 2019 DLP: 1031.[address] scans at [facility] use at least one of these dose optimization techniques: automated e xposure control; mA and/or kV adjustment per patient size (includes targeted exams where dose is matc hed to clinical indication); or iterative reconstruction. FINDINGS: No evidence of intracranial hemorrhage or mass effect. Ventricular system and basal cisterns are chamberlain nt. Moderate small vessel changes with moderate parenchymal volume loss. Chronic lacunar infarcts in the RIGHT williamson radiata, RIGHT caudate, and bilateral thalami. Prominent perivascular space RIGHT la teral basal ganglia. Chronic infarcts in the LEFT cerebellum. Incidental retrocerebellar arachnoid cyst. No hydrocephalus. No evidence of mass or mass effect. Mast oid air cells are well aerated. Visualized paranasal sinuses are well aerated. Cavernous carotid calc ification. Normal visualized soft tissues. CT/CT head wo con* [id number] IMPRESSION: 1. No evidence of intracranial hemorrhage or mass effect. 2. Moderate small vessel changes. Moderate parenchymal volume loss. 3. Multiple chronic lacunar infarcts described above. Some of these appear new compared to November 03, 2019 4. Chronic infarcts in the LEFT cerebellum. 5. Incidental retrocerebellar arachnoid cyst appears unchanged the prior MRI. 6. No other significant findings.
== END 2021-11-13 15:07 | disposition home or self-care (01) ==
LOC: RAD 15:09
PROVIDERS: PCP Physician Assistant; Visit Provider Physician Assistant
DX: S09.90XA Unspecified injury of head, initial encounter (principal); X58.XXXA Exposure to other specified factors, initial encounter
CPT/HCPCS: 70450

== ENCOUNTER 2022-05-22 13:00 | Outpatient (CLI) | payer MEDICARE, MEDICAID, SELFPAY ==
--- NOTE | 2022-05-22 12:46 | CT_ITS ---
WS: [id number] LDCT LUNG CANCER SCREENING TECHNIQUE: Noncontrast CT of the chest with coronal and sagittal reformatted images. CLINICAL INFORMATION: HX OF TOBACCO USE COMPARISON: None. DLP: 79.87 mGy.cm DIvol: Mean CTDIvol: 1.60 (mGy) All CT scans at [facility] use at least one of these dose optimization techniques: automat ed exposure control; mA and/or kV adjustment per patient size (includes targeted exams where dose is matched to clinical indication); or iterative reconstruction. FINDINGS: No suspicious pulmonary parenchymal opacities. Aortic calcification. Normal caliber thoracic aorta. Prior CABG. Coronary calcification. Calcified RI GHT hilar nodes. No axillary lymphadenopathy. Normal GE junction. Adrenal glands are normal. Fatty atrophy of the pancreas. Moderate thoracic kypho sis. Anterior hypertrophic changes mid and lower thoracic spine. Calcified granulomas. CT/CT lung screening [id number] IMPRESSION: LUNG-RADS: 1-Negative FOLLOW UP: 12 Month: Continue annual screening with LDCT
== END 2022-05-22 13:01 | disposition home or self-care (01) ==
LOC: RAD 05-25 13:41
PROVIDERS: PCP Physician Assistant; Visit Provider Physician Assistant
DX: Z12.2 Encounter for screening for malignant neoplasm of respiratory organs (principal); Z87.891 Personal history of nicotine dependence
CPT/HCPCS: 71271

== ENCOUNTER 2022-06-09 22:08 | Inpatient (IN) | payer MEDICARE, MEDICAID, SELFPAY ==
[2022-06-09 22:12] VITALS: BP 197/98; PULSE 118; RESP 22; TEMP 36.9; O2SAT 90; BMI 26.3
--- NOTE | 2022-06-09 22:12 | XRR_ITS ---
PROCEDURE INFORMATION: Exam: XR Chest Exam date and time: 06/09/2022 10:20 PM Age: 71 years old Clinical indication: On breathing; Prior surgery; Surgery date: 6+ months; Surgery type: Cabg x 2, patient HX: Chest pain, patient currently wearing a heart monitor to eval this; Additional info: SOB TECHNIQUE: Imaging protocol: Radiologic exam of the chest. Views: 1 view. COMPARISON: CT lung screening [id number] 05/22/2022 1:14 PM FINDINGS: Tubes, catheters and devices: Metallic recorder device over the anterior chest wall. Lungs: Unremarkable. No consolidation. Pleural spaces: Unremarkable. No pleural effusion. No pneumothorax. Heart/Mediastinum: Borderline cardiomegaly. Bones/joints: Previous sternotomy. XR/XR chest 1V portable [id number] IMPRESSION: 1. Metallic recorder device over the anterior chest wall. 2. Previous sternotomy. 3. Borderline cardiomegaly.
--- NOTE | 2022-06-09 22:13 | ECG_ITS ---
[facility] Test Date: 2022-06-09 Pat Name: Romi Yuan Department: Room: Gender: Female Supervisor Fireworks Assembly: : 1950 Requested By: Everette Koroma Order Number: [id number] Tessa MD: Tristin Goldstein M.D. Measurements Intervals [place] Rate: 117 P: -51 TN: 132 QRS: -17 QRSD: 114 T: 84 QT: 341 QTc: 476 Interpretive Statements SINUS TACHYCARDIA MODERATE INTRAVENTRICULAR CONDUCTION DELAY [110+ ms QRS DURATION] NONSPECIFIC ST & T-WAVE ABNORMALITY Compared to ECG 10/19/2019 23:48:54 Intraventricular conduction delay now present T-wave abnormality now present Sinus rhythm no longer present Left-axis deviation no longer present Myocardial infarct finding no longer present Electronically Signed On 06-10-2022 10:28:11 MEATMAN by Tristin Goldstein M.D. [id number]
[2022-06-09 22:21] LABS: Basophils # 0.1 10^3/uL (0.0-0.1); Basophils % 0.4 %; Eosinophils # 0.2 10^3/uL (0.0-0.8); Eosinophils % 1.3 %; Hematocrit 41.9 % (37.0-47.0); Hemoglobin 13.7 g/dL (11.5-15.3); Lymphocytes # 3.8 10^3/uL (0.8-4.8); Mean Corpuscular HGB Conc 32.7 g/dL (30.0-36.0); Mean Corpuscular Hemoglobin 30.5 pg (28.0-34.0); Mean Corpuscular Volume 93.3 fl (81-99); Mean Platelet Volume 10.9 fL (7.4-10.4); Monocytes # 0.7 10^3/uL (0.2-0.9); Monocytes % 4.4 %; Neutrophils # 11.05 10^3/uL (1.8-7.7); Neutrophils % 69.6 %; Nucleated Red Blood Cells % 0 %; Platelet Count 334 10^3/cmm (130-400); Red Blood Count 4.49 10^6/uL (4.1-5.3); Red Cell Distribution Width 13.5 % (12.1-15.1); White Blood Count 15.9 10^3/uL (4.0-10.0)
[2022-06-09 22:42] LABS: INR 1.03 (0.8-1.2)
--- NOTE | 2022-06-09 22:50 | ED_ITS ---
HPI - SOB/Dyspnea General: Chief Complaint: Shortness of Breath/Dyspnea Stated Complaint: SOB/CP Time Seen by Provider: 06/09/22 22:10 Source: patient and EMS Mode of arrival: EMS Limitations: no limitations History of Present Illness: HPI Narrative: 71-year-old female states she wears 2 L oxygen at baseline states that she has been having some increasing shortness of breath along with a cough she denies any fever she states that she did not have her oxygen on and was unable to get in the house to get it and was having severe dyspnea and called EMS she is currently 90% here on 3 L. She has had been having some chest pain as well was given a DuoNeb nitro in route her chest pain is resolved she states her shortness of breath is improved. She denies any fevers. She does have a history of CHF she states she has not been taking her Lasix over the last week. Associated symptoms: Reports chest pain; Deny abdominal pain, fever(s), nausea or vomiting Review of Systems Const: Denies: fever(s), chills, body aches or change in appetite Eyes: Denies: blurry vision or eye discomfort ENMT: Denies: throat pain or dental pain Card: Reports: chest pain Resp: Reports: dyspnea and non-productive cough GI: Denies: abdominal pain, nausea, vomiting or diarrhea : Denies: dysuria Musc: Denies: neck pain or back pain Skin/Breast: Denies: rash Neuro: Denies: headache(s) Psych: Denies: depression Alonzo/Lymph: Denies: easy bruising All/Imm: Denies: urticaria PFSH ED PFSH: Medical History Anxiety ASHD (arteriosclerotic heart disease) Carotid arterial disease Colon polyps COPD (chronic obstructive pulmonary disease) Diabetes mellitus Dyslipidemia History of CVA (cerebrovascular accident) History of myocardial infarction History of skin cancer HTN (hypertension) PAD (peripheral artery disease) Surgical History History of endovascular stent graft for abdominal aortic aneurysm (AAA) Hx of local excision of skin lesion (09/16/20) Left forearm x2 S/P CABG (coronary artery bypass graft) S/P cardiac catheterization S/P cataract surgery S/P cholecystectomy S/P hysterectomy with oophorectomy S/P skin and subcutaneous tissue surgery Status post colonoscopy (09/16/20) Family History Sister Mark's disease Sister No problems noted. Mother No problems noted. Other Anesthesia complication Social History Smoking and tobacco status: former smoker Alcohol intake: current Alcohol intake frequency: holidays/special occasions only Physical Exam Const: COMMON NORMALS: patient oriented x3 GENERAL APPEARANCE: in distress HENMT: COMMON NORMALS: normocephalic and atraumatic HEAD & SCALP: normoce phalic and atraumatic Eye: COMMON NORMALS: Equal, round and reactive pupils present and EOMs intact bilaterally PUPIL: Yes Equal, round and reactive pupils present Neck/C-Spine: COMMON NORMALS: full ROM and supple Chest: COMMONS NORMALS: normal inspection of the chest and normal palpation of entire chest wall Resp: COMMON NORMALS: No retractions and No use of accessory muscles EFFORT & INSPECTION: Yes tachypneic and Yes respiratory distress AUSCULTATION: rales Cardio: COMMON NORMALS: regular rate, regular rhythm and No murmurs present (Cardio) RATE: regular rate RHYTHM: regular rhythm GI: COMMON NORMALS: Normal to inspection, nondistended, normoactive bowel sounds present, Soft to palpation, non-tender and no masses PALPATION: Yes Soft to palpation Extremity: COMMON NORMALS: full ROM OTHER: 2+ edema Neuro: COMMON NORMALS: patient oriented x3, moves all extremities and no focal motor deficits Psych: COMMON NORMALS: mental status grossly normal, Normal thought process present and cooperative THOUGHT PROCESS: Normal thought process present Skin: COMMON NORMALS: no rashes or lesions noted and no wounds GENERAL SKIN EXAM: no rashes or lesions noted Course Vital Signs: Vital signs: Vital Signs Temperature 98.5 F 06/09/22 22:12 Pulse Rate 118 H 06/09/22 22:12 Respiratory Rate 22 H 06/09/22 22:12 Blood Pressure 197/98 06/09/22 22:12 Pulse Oximetry 90 06/09/22 22:12 Oxygen Delivery Me thod 06/09/22 22:12 Oxygen Flow Rate 4 06/09/22 22:12 MDM - SOB/Dyspnea Medical Decision Making Patient presents here with dyspnea she is requiring increased oxygen here she only wears 2 L as needed at home she is using 5 here she has pulmonary edema likely CHF exacerbation she has not been taking her Lasix talk to the hospitalist will admit for diuresis and her hypoxia Lab Data 06/09/22 21:43 06/09/22 21:43 Labs/Radiology: Radiology Impressions Chest X-Ray 06/09/22 22:12 IMPRESSION: 1. Metallic recorder device over the anterior chest wall. 2. Previous sternotomy. 3. Borderline cardiomegaly. Laboratory Results WBC 15.9 10^3/uL (4.0-10.0) H 06/09/22 21:43 RBC 4.49 10^6/uL (4.1-5.3) 06/09/22 21:43 Hgb 13.7 g/dL (11.5-15.3) 06/09/22 21:43 Hct 41.9 % (37.0-47.0) 06/09/22 21:43 MCV 93.3 fl (81-99) 06/09/22 21:43 MCH 30.5 pg (28.0-34.0) 06/09/22 21:43 MCHC 32.7 g/dL (30.0-36.0) 06/09/22 21:43 RDW 13.5 % (12.1-15.1) 06/09/22 21:43 Plt Count 334 10^3/cmm (130-400) 06/09/22 21:43 MPV 10.9 fL (7.4-10.4) H 06/09/22 21:43 Neut % (Auto) 69.6 % 06/09/22 21:43 Lymph % (Auto) 24.0 % 06/09/22 21:43 [place] % (Auto) 4.4 % 06/09/22 21:43 Eos % (Auto) 1.3 % 06/09/22 21:43 Baso % (Auto) 0.4 % 06/09/22 21:43 Neut # (Auto) 11.05 10^3/uL (1.8-7.7) H 06/09/22 21:43 Lymph # (Auto) 3.8 10^3/uL (0.8-4.8) 06/09/22 21:43 [place] # (Auto) 0.7 10^3/uL (0.2-0.9) 06/09/22 21:43 Eos # (Auto) 0.2 10^3/uL (0.0-0.8) 06/09/22 21:43 Baso # (Auto) 0.1 10^3/uL (0.0-0.1) 06/09/22 21:43 Nucleated RBC % (auto) 0 % 06/09/22 21:43 Nucleated RBCs # 0.0 /100WBC 06/09/22 21:43 PT 13.80 SECONDS (12.1-14.9) 06/09/22 21:43 INR 1.03 (0.8-1.2) 06/09/22 21:43 Sodium 139 mmol/L (136-145) 06/09/22 21:43 Potassium 4.3 mmol/L (3.5-5.1) 06/09/22 21:43 Chloride 103 mmol/L (98-107) 06/09/22 21:43 Carbon Dioxide 20 mmol/L (22-29) L 06/09/22 21:43 Anion Gap 20.3 (5-19) H 06/09/22 21:43 BUN 14 mg/dL (8-23) 06/09/22 21:43 Creatinine 1.4 mg/dL (0.5-0.9) H 06/09/22 21:43 GFR Calculation Not Reportable 06/09/22 21:43 Glucose 279 mg/dL (65-115) H 06/09/22 21:43 Calculated Osmolality 299 mOsm/kg (285-295) H 06/09/22 21:43 Calcium 9.5 mg/dL (8.5-10.5) 06/09/22 21:43 Total Bilirubin 0.3 mg/dL (0.15-1.2) 06/09/22 21:43 AST 23 U/L (0-32) 06/09/22 21:43 ALT 12 U/L (0-33) 06/09/22 21:43 Alkaline Phosphatase 110 U/L (35-105) H 06/09/22 21:43 Troponin T Baseline 67 ng/L (0-10) H 06/09/22 21:43 NT-Pro-B Natriuret Pep 57833 pg/mL (0-125) H 06/09/22 21:43 Total Protein 6.7 g/dL (6.6-8.7) 06/09/22 21:43 Albumin 3.8 g/dL (3.5-5.2) 06/09/22 21:43 Globulin 2.9 g/dL (1.3-4.6) 06/09/22 21:43 Lipase 29 U/L (13-60) 06/09/22 21:43 Discharge Plan Discharge Patient Disposition: Admitted As Inpatient Clinical Impression: Acute exacerbation of CHF (congestive heart failure), Acute respiratory failure with hypoxia Condition: Stable Coding Level of Care Code ED Condenser Operator for Samg Fwd Exam Comprehensive
[2022-06-09 23:02] LABS: Troponin(5th) Baseline 67 ng/L (0-10)
[2022-06-09 23:15] LABS: Alanine Aminotransferase 12 U/L (0-33); Albumin Level 3.8 g/dL (3.5-5.2); Alkaline Phosphatase 110 U/L (35-105); Anion Gap 20.3 (5-19); Aspartate Amino Transferase 23 U/L (0-32); Blood Urea Nitrogen 14 mg/dL (8-23); Calcium 9.5 mg/dL (8.5-10.5); Carbon Dioxide 20 mmol/L (22-29); Chloride 103 mmol/L (98-107); Globulin 2.9 g/dL (1.3-4.6); Glucose 279 mg/dL (65-115); Lipase 29 U/L (13-60); Osmolality Calculated 299 mOsm/kg (285-295); Potassium 4.3 mmol/L (3.5-5.1); Sodium 139 mmol/L (136-145); Total Bilirubin 0.3 mg/dL (0.15-1.2); Total Protein 6.7 g/dL (6.6-8.7)
--- NOTE | 2022-06-09 23:46 | PM.HP ---
Providers/Chief Complaint Primary Care Provider: Jocelyne Kirby Chief Complaint: SOB/CP History of Present Illness Romi Yuan is a 71 year old female with past medical history of coronary artery disease status post CABG x2 years ago, chronic kidney disease, chronic congestive heart failure, hypertension, diabetes type 2, hypothyroidism, Graves' disease presented to the hospital with complaint of dyspnea on exertion that started today around 4 PM. She says she walks her dog every day and does not get short of breath but today became short of breath that kept worsening by the hour. She also had a chest pain on the left side of her shoulder and left side of her chest that was a squeezing pressure-like feeling. She has had an MO before. She says recently she was at [facility] for chest pain. She was asked to do a stress test as an outpatient which is next week on the . She has a legal billing coordinator that she follows in [place]. He does not remember the name of the doctor. She says she was nauseous along with dyspnea and having chest pain when she got to the hospital. She says when she was at [facility] she was taken off of her losartan and Lasix as she was told she does not need it anymore. She says she has noticed her lower extremities have been having increasing edema recently. Patient is somewhat of a poor historian remembers main events however unable to give any specific details about her medical history. We will need to obtain records from [facility]. At time of encounter he denies chest pain, shortness of breath, nausea, vomiting, diarrhea. At this time when seen patient denies any chest pain feels a lot better. She was given Lasix 60 IV x1 in the ER. Vitals are stable at this time. BNP 32,000, initial troponin 67, 2-hour to 23. Delta 156. COVID antigen positive, influenza negative. Creatinine 1.4. WBC 15.9. Medications/Allergies Home Medications Medication Instructions Recorded Confirmed Last Taken Type clopidogrel 75 mg tablet (Plavix) 75 mg PO DAILY 07/20/19 06/10/22 06/09/22 09:00 History fenofibrate nanocrystallized 145 145 mg PO DAILY 07/20/19 06/10/22 06/09/22 09:00 History mg tablet (Tricor) insulin detemir U-100 100 unit/mL 45 unit SUBCUT BEDTIME 07/20/19 06/10/22 06/09/22 09:00 History subcutaneous solution (Levemir U-100 Insulin) isosorbide mononitrate 60 mg 60 mg PO BID 07/20/19 06/10/22 06/09/22 17:00 History tablet,extended release 24 hr losartan 50 mg tablet 50 mg PO BID 07/20/19 06/10/22 06/09/22 17:00 History rosuvastatin 40 mg tablet (Crestor) 40 mg PO DAILY 07/20/19 06/10/22 06/09/22 09:00 History tizanidine 4 mg capsule (Zanaflex) 4 mg PO DAILY PRN MUSCLE SPASMS 07/20/19 06/10/22 06/08/22 19:00 History umeclidinium 62.5 mcg-vilanterol 1 inh inhalation DAILY 07/20/19 06/10/22 09/16/20 History 25 mcg/actuation powdr for inhalation (Anoro Ellipta) venlafaxine 150 mg 150 mg PO DAILY 07/20/19 06/10/22 09/14/20 History capsule,extended release 24 hr (Effexor XR) albuterol sulfate 90 mcg/actuation See Rx Instructions .Route .COMPLEX 10/19/19 06/10/22 1 Week Ago History aerosol inhaler (Ventolin HFA) ~06/03/22 multivit with 1 tab PO DAILY 10/19/19 06/10/22 06/09/22 09:00 History cabftzcx-oggu-IF-lutein 8 mg iron-400 mcg-300 mcg tablet (Centrum Silver Women) nitroglycerin 0.4 mg sublingual 0.4 mg sublingual PRN PRN CHEST 10/19/19 06/10/22 Unknown History tablet PAINS omeprazole 40 mg capsule,delayed See Rx Instructions .Route .COMPLEX 10/19/19 06/10/22 06/09/22 09:00 History release amlodipine 10 mg tablet 10 mg PO DAILY #90 tabs 01/16/20 06/10/22 06/09/22 09:00 Rx cholecalciferol (vitamin D3) 125 125 mcg PO Q7D 02/21/20 06/10/22 07/02/21 09:00 History mcg (5,000 unit) capsule insulin aspart U-100 100 unit/mL 6 unit SUBCUT QID 02/21/20 06/10/22 06/09/22 19:00 History subcutaneous solution (Novolog U-100 Insulin aspart) methimazole 5 mg tablet 5 mg PO DAILY #30 tabs 03/11/20 06/10/22 06/09/22 09:00 Rx clindamycin phosphate 1 % lotion 1 applic topical DAILY #60 mL 03/20/20 06/10/22 06/09/22 09:00 Rx aspirin 81 mg tablet,delayed 81 mg PO DAILY 05/15/20 06/10/22 09/08/20 History release (Adult Aspirin Regimen) furosemide 20 mg tablet (Lasix) 40 mg PO DAILY PRN swelling 05/15/20 06/10/22 06/09/22 09:00 History docusate sodium 100 mg capsule 100 mg PO BID #30 caps 09/16/20 06/10/22 06/09/22 09:00 Rx (Colace) hydrocodone 5 mg-acetaminophen 325 1 tab PO Q6H PRN pain #20 tabs 09/16/20 06/10/22 06/08/22 19:00 Rx mg tablet blood sugar diagnostic (Accu-Chek #120 ea 06/23/21 06/10/22 Unknown Rx Ana M Plus test strips) Allergies Allergy/AdvReac Type Severity Reaction Status Date / Time cefuroxime [From Ceftin] Allergy ALGY-Rash Verified 10/29/20 11:57 cephalexin [From Keflex] Allergy ALGY-Rash Verified 10/29/20 11:57 hydroxyzine [From Vistaril] Allergy ALGY-Anaphy Verified 10/29/20 11:57 laxis Penicillins Allergy ALGY-Redness Verified 10/29/20 11:57 of Skin prochlorperazine Allergy ALGY-Anaphy Verified 10/29/20 11:57 [From Compazine] laxis promethazine [From Phenergan] Allergy ALGY-Anaphy Verified 10/29/20 11:57 laxis venom-honey bee Allergy ALGY-Anaphy Verified 10/29/20 11:57 laxis simvastatin [From Zocor] AdvReac ADR-Heartbu Verified 10/29/20 11:57 rn PFSH Acute PFSH: Medical History Anxiety ASHD (arteriosclerotic heart disease) Carotid arterial disease Colon polyps COPD (chronic obstructive pulmonary disease) Diabetes mellitus Dyslipidemia History of CVA (cerebrovascular accident) History of myocardial infarction History of skin cancer HTN (hypertension) PAD (peripheral artery disease) Surgical History History of endovascular stent graft for abdominal aortic aneurysm (AAA) Hx of local excision of skin lesion (09/16/20) Left forearm x2 S/P CABG (coronary artery bypass graft) S/P cardiac catheterization S/P cataract surgery S/P cholecystectomy S/P hysterectomy with oophorectomy S/P skin and subcutaneous tissue surgery Status post colonoscopy (09/16/20) Family History Sister Mark's disease Sister No problems noted. Mother No problems noted. Other Anesthesia complication Social History Smoking and tobacco status: former smoker Alcohol intake: current Alcohol intake frequency: holidays/special occasions only Vitals/I&O/Wt Last Vital Signs Temp 98.5 F 06/09/22 22:12 Pulse 118 H 06/09/22 22:12 Resp 22 H 06/09/22 22:12 BP 197/98 06/09/22 22:12 Pulse Ox 90 06/09/22 22:12 O2 Del Method 06/09/22 22:12 O2 Flow Rate 4 06/09/22 22:12 Weight last 48 hrs Weight 65.317 kg Physical Exam Narrative: General: Alert oriented x3, patient seen sitting up in bed appearing comfortable on 2 L nasal cannula at this time. HEENT: Normocephalic, atraumatic, EOMI, breathing nasal cannula, no acute distress. Cardio: Regular rate rhythm, normal S1-S2 Respiratory: Clear to auscultation bilaterally no wheezes no rhonchi no crackles. GI: Abdomen soft, nontender, nondistended, bowel sounds + Behavior: Appropriate and cooperative Extremities: 2+ pitting edema bilateral lower extremities. Data 06/09/22 21:43 06/09/22 21:43 A&P Assessment and plan (1) Acute exacerbation of CHF (congestive heart failure): (2) Acute respiratory failure with hypoxia: (3) Chronic kidney disease due to diabetes mellitus: (4) HTN (hypertension): (5) Coronary artery disease due to type 2 diabetes mellitus: (6) Diabetes type 2, uncontrolled: Qualifiers: Glycemic state: with hyperglycemia Qualified Code(s): E11.65 - Type 2 diabetes mellitus with hyperglycemia (7) Hyperthyroidism: (8) Graves disease: Plan #Acute on chronic congestive heart failure, unsure systolic versus diastolic #NSTEMI #History of CAD status post CABG #History of MO #Diabetes type 2 with #Hypothyroidism #Graves' disease #CKD, baseline unknown #Leukocytosis possibly reactive #COVID-positive #Depression ? BNP 32,000, delta troponin 156 ? WBC 15.9, creatinine 1.4. Baseline unknown. Does have CKD. ? Continue aspirin, Plavix, therapeutic Lovenox renally dosed, rosuvastatin ? Sliding scale insulin ? Continue on Levemir ? Stress test in a.m. ? Continue diuresis Lasix 40 IV daily ? Check echo -Continue methimazole ? PT OT ? Consider cardiology consult ? N.p.o. at midnight -Continue venlafaxine ? DuoNeb every 4 hours as needed ? Continue Colace 100 twice daily ? Wean off oxygen as able ? Patient will need home O2 eval Full code DVT prophylaxis on therapeutic Lovenox at this time we will renally dosed. Attestations Medical Necessity Statement*: Will cross greater than 2 midnight stay for management of NSTEMI. IV diuresis for CHF exacerbation. Coding Level of Care Code Acute Data Center Architect for Kiran Holland Diagnoses Acute exacerbation of CHF (congestive heart failure) I50.9 Acute respiratory failure with hypoxia J96.01 Chronic kidney disease due to diabetes mellitus E11.22 HTN (hypertension) I10 Coronary artery disease due to type 2 diabetes mellitus E11.59; I25.10 Diabetes type 2, uncontrolled E11.65 Glycemic state: with hyperglycemia Hyperthyroidism E05.90 Graves disease E05.00
[2022-06-10] VITALS (53 sets, daily range): BP systolic 137–180; BP diastolic 70–105; PULSE 81–110; RESP 12–25; TEMP 36.7–37.3; O2SAT 93–100
[2022-06-10] MEDS: FUROsemide 10 mg/mL SDV 10mL 60 MG IVP (00:15)
--- NOTE | 2022-06-10 00:16 | ECG_ITS ---
[facility] Test Date: 2022-06-10 Pat Name: Romi Yuan Department: Room: 276 Gender: Female Combine Operator: : 1950 Requested By: Everette Koroma Order Number: [id number] Tessa MD: Tristin Goldstein M.D. Measurements Intervals [place] Rate: 96 P: 39 RI: 163 QRS: -26 QRSD: 113 T: 117 QT: 392 QTc: 498 Interpretive Statements SINUS RHYTHM POSSIBLE LEFT ATRIAL ENLARGEMENT [-0.1mV P-WAVE IN V1/V2] POSSIBLE INFERIOR MYOCARDIAL INFARCTION , OF INDETERMINATE AGE [30 ms Q WAVE IN II/aVF] MODERATE T-WAVE ABNORMALITY, CONSIDER LATERAL ISCHEMIA [-0.1+ mV T-WAVE IN I/aVL/V5/V6] Compared to ECG 06/09/2022 22:18:07 Myocardial infarct finding now present Possible ischemia now present Sinus tachycardia no longer present Intraventricular conduction delay no longer present T-wave abnormality still present Electronically Signed On 06-10-2022 10:30:04 MASON HELPER by Tristin Goldstein M.D. [id number]
[2022-06-10 01:01] LABS: Influenza A by IFA negative (Negative); Influenza B by IFA negative (Negative)
[2022-06-10 01:34] LABS: Troponin 5 2HR 223.5 ng/L (0-10)
[2022-06-10 01:35] LABS: Troponin 5 2HR Delta 156.5 ABS# (0-10)
[2022-06-10 02:22] LABS: SARS Covid-2 Antigen positive (Negative)
--- NOTE | 2022-06-10 03:13 | USCV_ITS ---
Romi Yuan Age: 71 Gender: F : 1950 Exam Date: 06/10/2022 03:31 Ordering Phys: Jackie Oliver MD Technologist: BAILEY Exam Location: [facility] [place] Indication: shortness of breath, history of CHF. BP: 147 / 84 HR: 83 Rhythm: Sinus Technical Quality: Adequate MEASUREMENTS (Male / Female) Normal Values 2D ECHO LV Diastolic Diameter PLAX 5.4 cm 4.2 - 5.9 / 3.9 - 5.3 cm LV Systolic Diameter PLAX 4.4 cm IVS Diastolic Thickness 1.1 cm 0.6 - 1.0 / 0.6 - 0.9 cm IVS Systolic Thickness 2.2 cm LVPW Diastolic Thickness 1.2 cm 0.6 - 1.0 / 0.6 - 0.9 cm LVPW Systolic Thickness 1.4 cm LVOT Diameter 1.9 cm LV Ejection Fraction 2D Teich 37.5 % LV Ejection Fraction MOD 2C 22.9 % LV Ejection Fraction 2C AL 21.8 % LA Diameter 4.2 cm LA Width 4.0 cm LA Height 5.5 cm RA Width 3.0 cm RA Height 4.4 cm Aorta at Sinotubular Diameter 2.6 cm IVC Diameter 1.1 cm M-MODE Aortic Annulus Diameter 2.7 cm LA Ao Ratio MM 1.7 MV E Point Septal Separation 1.7 cm DOPPLER AV Peak Velocity 134.0 cm/s LVOT Peak Velocity 64.0 cm/s AV Area Cont Eq vti 1.3 cm squared AV Area Cont Eq pk 1.4 cm squared MV Area PHT 3.5 cm squared Mitral E to A Ratio 0.7 MV E' Velocity 50.5 cm/s Mitral E to MV E' Ratio 29.7 Mitral E to LV E' Lateral Ratio 29.7 Mitral E to LV E' Septal Ratio 29.7 TV Peak E Velocity 60.0 cm/s PV Peak Velocity 115.0 cm/s RV Acceleration Time 0.1 s RV Ejection Time 0.3 s RV AcT/ET 0.4 FINDINGS Left Ventricle Left ventricle is normal in size. LV systolic function is moderately reduced with EF of 35 to 40%. Severe hypokinesis of inferior and inferolateral watters. Grade 1 diastolic dysfunction Right Ventricle Normal in size and function Right Atrium Normal in size Left Atrium Mildly dilated Mitral Valve Moderate mitral valve calcification seen. Mild to moderate mitral regurgitation. Aortic Valve Aortic valve is thickened and calcified. No significant stenosis or regurgitation is seen Tricuspid Valve Mild tricuspid regurgitation. Insufficient TR jet to calculate RVSP. Pulmonic Valve Not well visualized. Trace pulmonic regurgitation. Pericardium Normal Aorta Normal in size IVC Appears to be normal CONCLUSIONS LV systolic function is moderately reduced with EF 35 to 40%. Severe hypokinesis of inferior and inferolateral watters are seen. Grade 1 diastolic dysfunction Mildly dilated left atrium Mild to moderate mitral regurgitation Mild tricuspid regurgitation Trace pulmonic regurgitation. Normal better studies are available Tristin Goldstein MD (Electronically Signed) Final Date: 10 June 2022 10:55 S
[2022-06-10] MEDS: enoxaparin 100 mg/mL Syringe 70 MG SUBCUT (04:00)
[2022-06-10] MEDS: FUROsemide 10 mg/mL SDV 4mL 40 MG IVP ×2 (04:01→06:25)
[2022-06-10] MEDS: pantoprazole 40 mg SDV IVP (04:01)
--- NOTE | 2022-06-10 04:13 | ECG_ITS ---
[facility] Test Date: 2022-06-10 Pat Name: Romi Yuan Department: Room: 106 Gender: Female Construction Scheduler: : 1950 Requested By: Everette Koroma Order Number: [id number] Tessa MD: Tristin Goldstein M.D. Measurements Intervals [place] Rate: 89 P: 44 DE: 166 QRS: -15 QRSD: 105 T: 108 QT: 394 QTc: 480 Interpretive Statements SINUS RHYTHM WITH FREQUENT VENTRICULAR PREMATURE COMPLEXES POSSIBLE LEFT ATRIAL ENLARGEMENT [-0.1mV P-WAVE IN V1/V2] PROBABLE INFERIOR MYOCARDIAL INFARCTION , OF INDETERMINATE AGE [35 ms Q WAVE IN II/aVF] Compared to ECG 06/10/2022 00:16:54 Ventricular premature complex(es) now present T-wave abnormality no longer present Possible ischemia no longer present Myocardial infarct finding still present Electronically Signed On 06-10-2022 10:29:47 GLUE SPECIALTY SUPERVISOR by Tristin Goldstein M.D. [id number]
[2022-06-10 04:50] LABS: Basophils % 0.3 %; Eosinophils % 0.3 %; Hematocrit 39.4 % (37.0-47.0); Lymphocytes # 1.5 10^3/uL (0.8-4.8); Lymphocytes % 13.2 %; Mean Corpuscular Hemoglobin 30.4 pg (28.0-34.0); Mean Corpuscular Volume 92.1 fl (81-99); Mean Platelet Volume 10.3 fL (7.4-10.4); Monocytes # 0.6 10^3/uL (0.2-0.9); Monocytes % 5.5 %; Neutrophils # 9.28 10^3/uL (1.8-7.7); Neutrophils % 80.5 %; Nucleated Red Blood Cells % 0 %; Platelet Count 266 10^3/cmm (130-400); Red Blood Count 4.28 10^6/uL (4.1-5.3); Red Cell Distribution Width 13.3 % (12.1-15.1); White Blood Count 11.5 10^3/uL (4.0-10.0)
[2022-06-10 05:05] LABS: Estmated Average Glucose 160; Hemoglobin A1C 7.2 % (4.0-6.0)
[2022-06-10 05:09] LABS: Lactic Sepsis W/Reflex 1.3 mmol/L (0.5-2.2)
[2022-06-10 05:24] LABS: Procalcitonin 0.44 ng/mL (0-0.5); Thyroid Stimulating Hormone 2.19 uIU/mL (0.27-4.20)
[2022-06-10 05:35] LABS: Alanine Aminotransferase 13 U/L (0-33); Albumin Level 3.5 g/dL (3.5-5.2); Alkaline Phosphatase 91 U/L (35-105); Anion Gap 16.1 (5-19); Aspartate Amino Transferase 42 U/L (0-32); Blood Urea Nitrogen 15 mg/dL (8-23); Calcium 9.2 mg/dL (8.5-10.5); Carbon Dioxide 23 mmol/L (22-29); Chloride 104 mmol/L (98-107); Chol HDL Ratio 2.98 mg/dL (0.0-4.40); Cholesterol 194 mg/dL (0-200); Globulin 3.2 g/dL (1.3-4.6); Glucose 229 mg/dL (65-115); HDL Cholesterol 65 mg/dL (60-100); LDL Cholesterol Calculated 109 mg/dL (50-129); LDL HDL Ratio 1.68 RATIO (0.00-3.22); Osmolality Calculated 296 mOsm/kg (285-295); Potassium 4.1 mmol/L (3.5-5.1); Sodium 139 mmol/L (136-145); Total Bilirubin 0.4 mg/dL (0.15-1.2); Total Protein 6.7 g/dL (6.6-8.7); Triglycerides 101 mg/dL (0-150)
[2022-06-10] MEDS: cholecalciferol (vitamin D3) 5,000 unit Tablet 5000 UNIT PO (06:25)
[2022-06-10 06:46] LABS: Glucose Point of Care 209 mg/dL (70-110)
--- NOTE | 2022-06-10 08:13 | PM.CONSULT ---
Providers/Reason For Consult Consulting Physician/Specialty*: Tristin Goldstein MD/ Cardiology Reason for Consult*: NSTEMI Requesting Physician: Dr Oliver Attending Physician: Smiley Hanson MD Primary Care Provider: Jocelyne Kirby History of Present Illness History of Present Illness Romi Yuan is a 71 year old female with past medical history of hypertension, CAD with CABGs x2, multiple PCI's according to her history who follows with cardiology at [facility] has presented with 1-1/2 hours of chest discomfort and shortness of breath. According to patient it was severe. It has resolved now. Her troponin increased from a baseline of 67 to 6-hour high of 737. EKG has nonspecific ST-T wave changes. She is chest pain-free at this time. She is found to be COVID-positive on rapid antigen test. Her creatinine is elevated and is 1.5. Review of Systems Const: Denies: fever(s), chills, body aches or change in appetite Eyes: Denies: blurry vision or eye discomfort ENMT: Denies: throat pain or dental pain Card: Reports: chest pain Resp: Reports: dyspnea and non-productive cough GI: Denies: abdominal pain, nausea, vomiting or diarrhea : Denies: dysuria Musc: Denies: neck pain or back pain Skin/Breast: Denies: rash Neuro: Denies: headache(s) Psych: Denies: depression Alonzo/Lymph: Denies: easy bruising All/Imm: Denies: urticaria Medications/Allergies Home Medications Medication Instructions Recorded Confirmed Last Taken Type clopidogrel 75 mg tablet (Plavix) 75 mg PO DAILY 07/20/19 06/10/22 06/09/22 09:00 History fenofibrate nanocrystallized 145 145 mg PO DAILY 07/20/19 06/10/22 06/09/22 09:00 History mg tablet (Tricor) insulin detemir U-100 100 unit/mL 45 unit SUBCUT BEDTIME 07/20/19 06/10/22 06/09/22 09:00 History subcutaneous solution (Levemir U-100 Insulin) isosorbide mononitrate 60 mg 60 mg PO BID 07/20/19 06/10/22 06/09/22 17:00 History tablet,extended release 24 hr losartan 50 mg tablet 50 mg PO BID 07/20/19 06/10/22 06/09/22 17:00 History rosuvastatin 40 mg tablet (Crestor) 40 mg PO DAILY 07/20/19 06/10/22 06/09/22 09:00 History tizanidine 4 mg capsule (Zanaflex) 4 mg PO DAILY PRN MUSCLE SPASMS 07/20/19 06/10/22 06/08/22 19:00 History umeclidinium 62.5 mcg-vilanterol 1 inh inhalation DAILY 07/20/19 06/10/22 09/16/20 History 25 mcg/actuation powdr for inhalation (Anoro Ellipta) venlafaxine 150 mg 150 mg PO DAILY 07/20/19 06/10/22 09/14/20 History capsule,extended release 24 hr (Effexor XR) albuterol sulfate 90 mcg/actuation See Rx Instructions .Route .COMPLEX 10/19/19 06/10/22 1 Week Ago History aerosol inhaler (Ventolin HFA) ~06/03/22 multivit with 1 tab PO DAILY 10/19/19 06/10/22 06/09/22 09:00 History eolwznns-qptn-KI-lutein 8 mg iron-400 mcg-300 mcg tablet (Centrum Silver Women) nitroglycerin 0.4 mg sublingual 0.4 mg sublingual PRN PRN CHEST 10/19/19 06/10/22 Unknown History tablet PAINS omeprazole 40 mg capsule,delayed See Rx Instructions .Route .COMPLEX 10/19/19 06/10/22 06/09/22 09:00 History release amlodipine 10 mg tablet 10 mg PO DAILY #90 tabs 01/16/20 06/10/22 06/09/22 09:00 Rx cholecalciferol (vitamin D3) 125 125 mcg PO Q7D 02/21/20 06/10/22 07/02/21 09:00 History mcg (5,000 unit) capsule insulin aspart U-100 100 unit/mL 6 unit SUBCUT QID 02/21/20 06/10/22 06/09/22 19:00 History subcutaneous solution (Novolog U-100 Insulin aspart) methimazole 5 mg tablet 5 mg PO DAILY #30 tabs 03/11/20 06/10/22 06/09/22 09:00 Rx clindamycin phosphate 1 % lotion 1 applic topical DAILY #60 mL 03/20/20 06/10/22 06/09/22 09:00 Rx aspirin 81 mg tablet,delayed 81 mg PO DAILY 05/15/20 06/10/22 09/08/20 History release (Adult Aspirin Regimen) furosemide 20 mg tablet (Lasix) 40 mg PO DAILY PRN swelling 05/15/20 06/10/22 06/09/22 09:00 History docusate sodium 100 mg capsule 100 mg PO BID #30 caps 09/16/20 06/10/22 06/09/22 09:00 Rx (Colace) hydrocodone 5 mg-acetaminophen 325 1 tab PO Q6H PRN pain #20 tabs 09/16/20 06/10/22 06/08/22 19:00 Rx mg tablet blood sugar diagnostic (Accu-Chek #120 ea 06/23/21 06/10/22 Unknown Rx Ana M Plus test strips) Allergies Allergy/AdvReac Type Severity Reaction Status Date / Time cefuroxime [From Ceftin] Allergy ALGY-Rash Verified 10/29/20 11:57 cephalexin [From Keflex] Allergy ALGY-Rash Verified 10/29/20 11:57 hydroxyzine [From Vistaril] Allergy ALGY-Anaphy Verified 10/29/20 11:57 laxis Penicillins Allergy ALGY-Redness Verified 10/29/20 11:57 of Skin prochlorperazine Allergy ALGY-Anaphy Verified 10/29/20 11:57 [From Compazine] laxis promethazine [From Phenergan] Allergy ALGY-Anaphy Verified 10/29/20 11:57 laxis venom-honey bee Allergy ALGY-Anaphy Verified 10/29/20 11:57 laxis simvastatin [From Zocor] AdvReac ADR-Heartbu Verified 10/29/20 11:57 rn Current Medications Generic Name Dose Route Start Last Admin Trade Name Freq PRN Reason Stop Dose Admin Enoxaparin Sodium 70 mg 06/10/22 03:15 06/10/22 04:00 Enoxaparin 100 Mg/Ml Syringe 1 mg/kg (70 mg) 70 mg SUBCUT Administration Q24H YASMANI Furosemide 40 mg 06/10/22 04:31 06/10/22 06:25 Furosemide 10 Mg/Ml Sdv 4ml IVP 40 mg Q24H YASMANI Administration Insulin Human Lispro 0 unit 06/10/22 08:00 06/10/22 07:38 Insulin Lispro 100 Unit/1 Ml SUBCUT Not Given WM&BEDTIME YASMANI Protocol Pantoprazole Sodium 40 mg 06/10/22 03:15 06/10/22 04:01 Pantoprazole 40 Mg Sdv IVP 40 mg Q24H YASMANI Administration Vitamin D 5,000 unit 06/10/22 04:15 06/10/22 06:25 Cholecalciferol (Vitamin D3) 5,000 Unit Tablet PO 5,000 unit Q7D YASMANI Administration PFSH Acute PFSH: Medical History Anxiety ASHD (arteriosclerotic heart disease) Carotid arterial disease Colon polyps COPD (chronic obstructive pulmonary disease) Diabetes mellitus Dyslipidemia History of CVA (cerebrovascular accident) History of myocardial infarction History of skin cancer HTN (hypertension) PAD (peripheral artery disease) Surgical History History of endovascular stent graft for abdominal aortic aneurysm (AAA) Hx of local excision of skin lesion (09/16/20) Left forearm x2 S/P CABG (coronary artery bypass graft) S/P cardiac catheterization S/P cataract surgery S/P cholecystectomy S/P hysterectomy with oophorectomy S/P skin and subcutaneous tissue surgery Status post colonoscopy (09/16/20) Family History Sister Mark's disease Sister No problems noted. Mother No problems noted. Other Anesthesia complication Social History Smoking and tobacco status: former smoker Alcohol intake: current Alcohol intake frequency: holidays/special occasions only Vitals/I&O/Wt Last Vital Signs Temp 98.1 F 06/10/22 07:24 Pulse 92 06/10/22 07:24 Resp 17 06/10/22 04:15 BP 174/88 06/10/22 07:24 Pulse Ox 96 06/10/22 07:24 O2 Del Method 06/10/22 05:56 O2 Flow Rate 3 06/10/22 00:38 Weight last 48 hrs Weight 144 lb Physical Exam Narrative: GENERAL: Patient is alert, awake and oriented x3. [] NECK: No jugular vein distension. [] HEENT: No cyanosis. No icterus. No pallor. [] HEART: Regular S1 and S2. No murmur, rub or gallop. [] LUNGS: Diminished breath sounds bilaterally CENTRAL NERVOUS SYSTEM: Grossly nonfocal. [] EXTREMITIES: Lower extremities with 1+ edema bilaterally. Urinary Catheter Management: Munson: Cath Placed During This Visit: yes Reason for Continuing Indwelling Catheter: Acute Urinary Retention or Obstruction Urinary Catheter Date of Insertion: 06/10/22 Urinary Catheter Time of Insertion: 05:32 Data 06/10/22 04:40 06/10/22 04:40 Micro: Microbiology 06/10/22 04:42 Blood Culture - Preliminary Blood SPECIMEN COLLECTED 06/10/22 04:40 Blood Culture - Preliminary Blood SPECIMEN COLLECTED A&P Assessment and plan (1) Acute exacerbation of CHF (congestive heart failure): (2) Acute respiratory failure with hypoxia: (3) Chronic kidney disease due to diabetes mellitus: (4) HTN (hypertension): (5) Coronary artery disease due to type 2 diabetes mellitus: (6) Diabetes type 2, uncontrolled: Qualifiers: Glycemic state: with hyperglycemia Qualified Code(s): E11.65 - Type 2 diabetes mellitus with hyperglycemia (7) Hyperthyroidism: Plan Patient has presented with non-ST elevation RI. She is also COVID-positive. Has multiple bypasses with no records. Creatinine is elevated. As she is chest pain-free, we will medically treat her at this time. We will obtain records from [facility] in [place]. Gentle diuresis. Continue aspirin, Plavix and anticoagulation We will plan on coronary angiogram with possible percutaneous coronary intervention tomorrow. N.p.o. past midnight. Echocardiogram ordered. Thank you for involving us with care of this patient. We will continue to follow. Please call with questions. Consult Attestations Medical Necessity Statement: Care expected to cross 2 midnights. 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
[2022-06-10] MEDS: aspirin 81 mg EC Tablet PO (08:50)
[2022-06-10] MEDS: fenofibrate 145 mg Tablet PO (08:50)
[2022-06-10] MEDS: amlodipine 10 mg Tablet PO (08:50)
[2022-06-10] MEDS: methIMAzole 5 MG Tablet PO (08:50)
[2022-06-10] MEDS: venlafaxine ER (24HR) 150 mg Capsule PO (08:50)
[2022-06-10] MEDS: isosorbide mononitrate ER 60 mg Tablet PO ×2 (08:50→18:20)
[2022-06-10] MEDS: clopidogrel 75 mg Tablet PO (08:50)
[2022-06-10] MEDS: pantoprazole DR 40 mg Tablet PO (08:50)
[2022-06-10] MEDS: docusate sodium 100 mg Capsule PO ×2 (08:50→18:20)
[2022-06-10] MEDS: atorvastatin 40 mg Tablet PO (08:50)
--- NOTE | 2022-06-10 08:59 | P.PN_ITS ---
Subjective Subjective: This morning patient is on complain of any acute chest pain or shortness of breath, currently on room air COVID-19 positive on precautions Patient is vaccinated Patient is sitting in previous hospital her troponins were trending up but not like this during the hospital she was recommended a stress test Vitals/I&O/Wt Last Vital Signs Temp 98.1 F 06/10/22 07:24 Pulse 89 06/10/22 08:51 Resp 17 06/10/22 04:15 BP 143/70 06/10/22 08:51 Pulse Ox 95 06/10/22 08:51 O2 Del Method 06/10/22 05:56 O2 Flow Rate 3 06/10/22 00:38 Weight last 48 hrs Weight 65.317 kg Physical Exam Narrative: Patient is awake and alert Clinically no active signs of fluid overload S1, S2 Doing a little better Pleasant and cooperative Hemodynamically stable Abdomen soft Pleasant and cooperative Urinary Catheter Management: Munson: Cath Placed During This Visit: yes Reason for Continuing Indwelling Catheter: Acute Urinary Retention or Obstruction Urinary Catheter Date of Insertion: 06/10/22 Urinary Catheter Time of Insertion: 05:32 Data 06/10/22 04:40 06/10/22 04:40 Micro: Microbiology 06/10/22 04:42 Blood Culture - Preliminary Blood SPECIMEN COLLECTED 06/10/22 04:40 Blood Culture - Preliminary Blood SPECIMEN COLLECTED A&P Assessment and plan (1) NSTEMI (non-ST elevated myocardial infarction): (2) Acute exacerbation of CHF (congestive heart failure): (3) Coronary artery disease due to type 2 diabetes mellitus: (4) Diabetes type 2, uncontrolled: Qualifiers: Glycemic state: with hyperglycemia Qualified Code(s): E11.65 - Type 2 diabetes mellitus with hyperglycemia (5) Hyperthyroidism: (6) Graves disease: (7) Chronic kidney disease due to diabetes mellitus: Plan NSTEMI Current [employer] protocol No active chest pain or shortness of breath Being with a roommate Hemodialysis table Patient will be evaluated by cardiology Dr. Triston bosch medical management Start cardiac diet Will follow up with echo Obtain records from [facility] Chronic kidney disease creatinine seems to be around baseline, Monitor kidney function No signs of acidosis or hyperkalemia Avoid nephrotoxic agents COVID-19 positive currently on isolation Afebrile, not Cardioxane Judicious use of steroids considering type 2 diabetes hemoglobin A1c 7.2 Full code Patient doing well on room air Type 2 diabetes consistent carb cardiac diet Attestations Medical Necessity Statement*: Continue medical management Coding Level of Care Code Acute Director Of Market Analysis for g Fwd Diagnoses NSTEMI (non-ST elevated myocardial infarction) I21.4 Acute exacerbation of CHF (congestive heart failure) I50.9 Coronary artery disease due to type 2 diabetes mellitus E11.59; I25.10 Diabetes type 2, uncontrolled E11.65 Glycemic state: with hyperglycemia Hyperthyroidism E05.90 Graves disease E05.00 Chronic kidney disease due to diabetes mellitus E11.22
[2022-06-10 10:55] LABS: Glucose Point of Care 247 mg/dL (70-110)
[2022-06-10] MEDS: insulin lispro 100 unit/1 mL SUBCUT ×2 (11:18→21:12)
[2022-06-10 18:03] LABS: Glucose Point of Care 131 mg/dL (70-110)
[2022-06-10] MEDS: acetaminophen 325 mg Tablet 650 MG PO (19:51)
[2022-06-10 21:05] LABS: Glucose Point of Care 246 mg/dL (70-110)
[2022-06-10] MEDS: insulin glargine 100 units/1 mL 36 UNIT SUBCUT (21:12)
[2022-06-10] MEDS: albuterol 2.5 mg/3 mL Neb INHALATION (22:22)
[2022-06-11] VITALS (22 sets, daily range): BP systolic 142–184; BP diastolic 62–93; PULSE 93–120; RESP 14–23; TEMP 36.7–37.4; O2SAT 86–100
--- NOTE | 2022-06-11 02:54 | PC.NURSE ---
Pt lying in bed supine with eyes closed. Resp even and non-labored no distress or sob noted. Pts lung sounds wheezy and course throughout. O2 at 3Lpm. Pts IV patent no redness or swelling noted. Pt has edema in lower ext 2+. Pt had no c/o pain or discomfort at the present time. No Needs voiced at the present time. Call button in reach. Will continue to monitor.
[2022-06-11] MEDS: pantoprazole 40 mg SDV IVP (03:52)
[2022-06-11] MEDS: enoxaparin 80 mg/0.8 mL Syringe 70 MG SUBCUT (03:52)
[2022-06-11 04:29] LABS: Basophils % 0.3 %; Eosinophils # 0.2 10^3/uL (0.0-0.8); Eosinophils % 1.3 %; Hematocrit 38.2 % (37.0-47.0); Hemoglobin 12.8 g/dL (11.5-15.3); Lymphocytes # 2.3 10^3/uL (0.8-4.8); Lymphocytes % 20.5 %; Mean Corpuscular HGB Conc 33.5 g/dL (30.0-36.0); Mean Corpuscular Hemoglobin 30.8 pg (28.0-34.0); Mean Corpuscular Volume 91.8 fl (81-99); Mean Platelet Volume 10.7 fL (7.4-10.4); Monocytes # 0.7 10^3/uL (0.2-0.9); Monocytes % 5.9 %; Neutrophils # 7.97 10^3/uL (1.8-7.7); Neutrophils % 71.6 %; Nucleated Red Blood Cells % 0 %; Platelet Count 280 10^3/cmm (130-400); Red Blood Count 4.16 10^6/uL (4.1-5.3); Red Cell Distribution Width 13.3 % (12.1-15.1); White Blood Count 11.1 10^3/uL (4.0-10.0)
[2022-06-11 04:44] LABS: ABG PCO2 44.1 mmHg (35-45); ABG PH Result 7.32 (7.35-7.45); Arterial Blood Gas Hematocrit 41.7 % (37-47); Base Excess ABG -3.3 mmol/L (-2.0-2.0); Blood Gas Allen Test Pos; Blood Gas Sample Type Arterial; Carboxyhemoglobin 1.2 %THgb (0.4-20.1); HCO3 ABG 22.8 mmol/L (22-26); Ionized Calcium Level - ABG 1.3 mmol/L (1.1-1.4); Methemoglobin 0.7 % (0.4-1.5); Oxygen Saturation ABG 96.9; PO2 ABG 88.1 mmHg (80.0-100.0); Potassium Level - ABG 3.7 mmol/L (3.5-5.0); Total Hemoglobin 13.6 g/dL (12-16)
[2022-06-11 04:46] LABS: Blood Gas Sample Site Radial, right; Oxygen Device NRB
[2022-06-11] MEDS: albuterol 2.5 mg/3 mL Neb INHALATION ×6 (04:56→23:57)
[2022-06-11 04:57] LABS: Alanine Aminotransferase 11 U/L (0-33); Albumin Level 3.2 g/dL (3.5-5.2); Alkaline Phosphatase 81 U/L (35-105); Anion Gap 14.5 (5-19); Aspartate Amino Transferase 26 U/L (0-32); Blood Urea Nitrogen 25 mg/dL (8-23); Carbon Dioxide 24 mmol/L (22-29); Chloride 107 mmol/L (98-107); Globulin 3.2 g/dL (1.3-4.6); Glucose 110 mg/dL (65-115); Osmolality Calculated 299 mOsm/kg (285-295); Potassium 3.5 mmol/L (3.5-5.1); Sodium 142 mmol/L (136-145); Total Bilirubin 0.2 mg/dL (0.15-1.2); Total Protein 6.4 g/dL (6.6-8.7)
--- NOTE | 2022-06-11 05:02 | XRR_ITS ---
PROCEDURE INFORMATION: Exam: XR Chest Exam date and time: 06/11/2022 5:06 AM Age: 71 years old Clinical indication: Shortness of breath; Patient HX: Worsening SOB. Covid +; Additional info: Increased 02 demand TECHNIQUE: Imaging protocol: Radiologic exam of the chest. Views: 1 view. COMPARISON: CR (CHEST, ) 06/09/2022 10:20 PM FINDINGS: Lungs: Emphysematous change, interstitial disease, and mild basilar airspace disease. Pleural spaces: Questionable small right pleural effusion. Heart/Mediastinum: Bypass surgery and cardiomegaly. Vasculature: Calcification of the thoracic aorta. Bones/joints: Osteopenia and degenerative change. Calcific tendinitis about the left shoulder. XR/XR chest 1V portable [id number] IMPRESSION: Emphysematous change, interstitial disease, and mild basilar airspace disease.
[2022-06-11] MEDS: FUROsemide 10 mg/mL SDV 4mL 40 MG IVP ×2 (05:53→10:10)
[2022-06-11] MEDS: azithromycin 500 MG in sodium chloride 0.9% 250 ML 250 MG IV (05:53)
[2022-06-11 06:57] LABS: Glucose Point of Care 223 mg/dL (70-110)
[2022-06-11] MEDS: budesonide 0.5 mg/2 mL Neb INHALATION ×2 (08:29→20:21)
[2022-06-11] MEDS: aspirin 81 mg EC Tablet PO (08:54)
[2022-06-11] MEDS: fenofibrate 145 mg Tablet PO (08:55)
[2022-06-11] MEDS: clopidogrel 75 mg Tablet PO (08:55)
[2022-06-11] MEDS: amlodipine 10 mg Tablet PO (08:55)
[2022-06-11] MEDS: pantoprazole DR 40 mg Tablet PO (08:56)
[2022-06-11] MEDS: methIMAzole 5 MG Tablet PO (08:56)
[2022-06-11] MEDS: atorvastatin 40 mg Tablet PO (08:56)
[2022-06-11] MEDS: potassium chloride ER 20 mEq Tablet 40 MEQ PO (08:56)
[2022-06-11] MEDS: isosorbide mononitrate ER 60 mg Tablet PO ×2 (08:56→17:12)
[2022-06-11] MEDS: venlafaxine ER (24HR) 150 mg Capsule PO (08:57)
--- NOTE | 2022-06-11 09:21 | PM.PN ---
Subjective Subjective: Patient denies chest pain at rest. She had breathing difficulty last night. Had lasix and was put on Bipap. Slight worsening in creatinine. Records from [facility] reviewed. Her creatinine was around 2 there. She had and echo here that is unchanged from echo done at [facility] last month with same EF of 35-40% Vitals/I&O/Wt Last Vital Signs Temp 99.3 F 06/11/22 07:49 Pulse 99 06/11/22 08:44 Resp 18 06/11/22 08:29 BP 171/87 06/11/22 08:02 Pulse Ox 100 06/11/22 08:29 O2 Del Method 06/11/22 08:29 O2 Flow Rate 6 06/11/22 04:57 FiO2 40 06/11/22 08:29 06/10/22 06/11/22 06/11/22 22:59 06:59 14:59 Intake Total 340 / 860 250 / 250 Output Total 1250 / 2500 1000 / 3500 Balance -910 / -1640 -1000 / -2640 250 / 250 Weight last 48 hrs Weight 144 lb Physical Exam Narrative: GENERAL: Patient is alert, awake and oriented x3. [] NECK: No jugular vein distension. [] HEENT: No cyanosis. No icterus. No pallor. [] HEART: Regular S1 and S2. No murmur, rub or gallop. [] LUNGS: Diminished breath sounds bilaterally CENTRAL NERVOUS SYSTEM: Grossly nonfocal. [] EXTREMITIES: Lower extremities with 1+ edema bilaterally. Urinary Catheter Management: Munson: Cath Placed During This Visit: yes Reason for Continuing Indwelling Catheter: Other Urinary Catheter Date of Insertion: 06/10/22 Urinary Catheter Time of Insertion: 05:32 Data 06/11/22 03:44 06/11/22 03:44 Micro: Microbiology 06/10/22 04:42 Blood Culture - Preliminary Blood NEGATIVE TO DATE 06/10/22 04:40 Blood Culture - Preliminary Blood NEGATIVE TO DATE A&P Assessment and plan (1) Acute exacerbation of CHF (congestive heart failure): (2) Acute respiratory failure with hypoxia: (3) Chronic kidney disease due to diabetes mellitus: (4) HTN (hypertension): (5) Coronary artery disease due to type 2 diabetes mellitus: (6) Diabetes type 2, uncontrolled: Qualifiers: Glycemic state: with hyperglycemia Qualified Code(s): E11.65 - Type 2 diabetes mellitus with hyperglycemia (7) Hyperthyroidism: Plan Patient is chest pain-free however had significant breathing difficulty last night. Was put on BiPAP and given Lasix. Slight worsening of creatinine. Shortness of breath can be secondary to combination of CHF and COVID. Her echocardiogram performed yesterday shows systolic function is moderately reduced and EF is 35 to 40% which is unchanged from her recent echo at [facility] last month. We will hold off on cardiac cath today. Report from previous catheterization has not been received from outside hospital. She did have complex peripheral procedures performed in the past too. Blood pressure is high. We will add hydralazine 50 mg 3 times daily in addition to current medicines. Gentle diuresis. Repeat labs in the p.m. Tentatively will plan on coronary angiogram tomorrow. N.p.o. past midnight. Thank you for involving us with care of this patient. We will continue to follow. Please call with questions. Attestations Medical Necessity Statement*: Care expected to cross 2 midnights. 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
--- NOTE | 2022-06-11 09:31 | P.PN_ITS ---
Subjective Subjective: Overnight events noted Chest x-ray showing mild worsening of interstitial markings She was given extra dose of Lasix morning Laying flat Currently on nasal cannula, she was taken off BiPAP this morning We will let her eat Plan for angiogram tomorrow instead of today Creatinine 1.7 Outside records reveal her creatinine was around 2 at [facility], she has significant history of peripheral arterial disease Vitals/I&O/Wt Last Vital Signs Temp 99.3 F 06/11/22 07:49 Pulse 99 06/11/22 08:44 Resp 18 06/11/22 08:29 BP 171/87 06/11/22 08:02 Pulse Ox 100 06/11/22 08:29 O2 Del Method 06/11/22 08:29 O2 Flow Rate 6 06/11/22 04:57 FiO2 40 06/11/22 08:29 06/10/22 06/11/22 06/11/22 22:59 06:59 14:59 Intake Total 340 / 860 250 / 250 Output Total 1250 / 2500 1000 / 3500 Balance -910 / -1640 -1000 / -2640 250 / 250 Weight last 48 hrs Weight 65.317 kg Physical Exam Narrative: Patient is clinically dry however on lung auscultation she has significant crackles and rhonchi Awake and alert No active wheezing S1, S2 variable Abdomen soft Lower extremity no edema Awake and alert Nonfocal neuro exam Urinary Catheter Management: Munson: Cath Placed During This Visit: yes Reason for Continuing Indwelling Catheter: Other Urinary Catheter Date of Insertion: 06/10/22 Urinary Catheter Time of Insertion: 05:32 Data 06/11/22 03:44 06/11/22 03:44 Micro: Microbiology 06/10/22 04:42 Blood Culture - Preliminary Blood NEGATIVE TO DATE 06/10/22 04:40 Blood Culture - Preliminary Blood NEGATIVE TO DATE A&P Assessment and plan (1) NSTEMI (non-ST elevated myocardial infarction): (2) Acute exacerbation of CHF (congestive heart failure): (3) Acute respiratory failure with hypoxia: (4) Chronic kidney disease due to diabetes mellitus: (5) HTN (hypertension): (6) Diabetes type 2, uncontrolled: Qualifiers: Glycemic state: with hyperglycemia Qualified Code(s): E11.65 - Type 2 diabetes mellitus with hyperglycemia (7) Hyperthyroidism: (8) Graves disease: (9) Pneumonia due to COVID-19 virus: Plan NSTEMI Patient will need an angiogram Plan for angiogram tomorrow as per cardiology We will let her eat today She can have cardiac consistent carb diet Acute hypoxia related to COVID-19 and left-sided heart failure She was given extra dose of Lasix She is able to lay supine BiPAP to be turned off, she will can be transition to nasal cannula, Extra dose of Lasix givn Will recommend BiPAP at nighttime Anxiety/panic attack Will put Xanax for as needed use 3 times a day Chronic kidney disease Baseline creatinine seems to be between 1.5-2 COVID-19 pneumonia, will do remdesivir, she has been transitioned to IV methylprednisolone 7 Decadron overnight Hypertensive urgency: Hydralazine 50 mg 3 times daily has been added She is already on amlodipine 10 mg, hold SKY or ARB Continue Imdur Patient is on ACS protocol Given extra dose of Lasix today Patient is full code N.p.o. 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
--- NOTE | 2022-06-11 10:11 | PC.CHAP ---
Pastoral Care Encounter/Spiritual Assessment Type of Contact [] Declined director of athletics visit [] Patient/Family/Request visit [] Outpatient visit [] Follow-up visit [] Physician referral [] Code/Alert [] Routine visit [] Staff referral [] Actively dying [] Patient sleeping [] Family support [] [] Out of room [] Palliative care [] [] Receiving care in room [] Pre-surgical visit [] Trauma [] Long length of stay [] ICU visit [x] Other: Isolation Relational/Emotional Strength [] Patient feels connected with others/family/visitors/staff [] Distress [] Loneliness/isolation [] Abandonment Spirituality of Patient [] Person of Evelin [] Attends Jainism of their Evelin [] Believes in Prayer [] Reads Bible or Bahai materials [] There are Spiritual issues to be addressed Sound Controller Interventions [] Prayer [] Active listening [] Non-anxious presence [] Spiritual/emotional support [] Crisis/trauma care [] Spiritual counseling [] Bereavement support [] Provided bereavement packet [] Provided Bible/devotional materials [] Provided toy/stuffed animal, coloring book to patient or family member [] Provided Communion [] Anointing/[place] [] Salvation [] Completed spiritual assessment [] Other: Impact on Illness or Injury [] Angry [] Fearful [] Anxious [] Often cries [] Exhaustion [] Unable to work [] Unable to attend temple [] Unable to walk/stand [] Unable to read [] Unable to drive [] Unable to eat/drink [] Unable to sleep [] Unable to be with family [] Patient intubated [] Other: Summary Isolation Time spent with patient 5 mins
[2022-06-11] MEDS: hyDRALAzine 50 mg Tablet PO ×3 (10:32→21:35)
[2022-06-11 11:18] LABS: Glucose Point of Care 291 mg/dL (70-110)
[2022-06-11] MEDS: insulin lispro 100 unit/1 mL SUBCUT ×3 (12:10→21:36)
[2022-06-11 17:34] LABS: Glucose Point of Care 392 mg/dL (70-110)
[2022-06-11 19:01] LABS: Anion Gap 17.4 (5-19); Blood Urea Nitrogen 32 mg/dL (8-23); Calcium 9.1 mg/dL (8.5-10.5); Carbon Dioxide 21 mmol/L (22-29); Chloride 104 mmol/L (98-107); Glucose 408 mg/dL (65-115); Osmolality Calculated 310 mOsm/kg (285-295); Potassium 4.4 mmol/L (3.5-5.1); Sodium 138 mmol/L (136-145)
--- NOTE | 2022-06-11 19:26 | PC.NURSE ---
Physician order: 100cc an hour for 12hrs of NS
[2022-06-11] MEDS: sodium chloride 0.9% 1,000 ML 100 ML IV (20:06)
[2022-06-11 21:09] LABS: Glucose Point of Care 439 mg/dL (70-110)
[2022-06-11] MEDS: acetaminophen 325 mg Tablet 650 MG PO (21:34)
[2022-06-11] MEDS: insulin glargine 100 units/1 mL 22 UNIT SUBCUT (21:37)
[2022-06-12] VITALS (16 sets, daily range): BP systolic 115–143; BP diastolic 53–93; PULSE 94–111; RESP 12–26; TEMP 36.5–37.2; O2SAT 7–100
[2022-06-12 02:27] LABS: Glucose Point of Care 233 mg/dL (70-110)
[2022-06-12] MEDS: pantoprazole 40 mg SDV IVP (03:29)
[2022-06-12 03:43] LABS: Basophils % 0.1 %; Hematocrit 32.9 % (37.0-47.0); Hemoglobin 10.8 g/dL (11.5-15.3); Lymphocytes # 0.5 10^3/uL (0.8-4.8); Lymphocytes % 4.5 %; Mean Corpuscular HGB Conc 32.8 g/dL (30.0-36.0); Mean Corpuscular Hemoglobin 30.7 pg (28.0-34.0); Mean Corpuscular Volume 93.5 fl (81-99); Mean Platelet Volume 10.7 fL (7.4-10.4); Monocytes # 0.4 10^3/uL (0.2-0.9); Monocytes % 3.7 %; Neutrophils # 9.82 10^3/uL (1.8-7.7); Neutrophils % 91.2 %; Nucleated Red Blood Cells % 0 %; Platelet Count 226 10^3/cmm (130-400); Red Blood Count 3.52 10^6/uL (4.1-5.3); Red Cell Distribution Width 13.8 % (12.1-15.1); White Blood Count 10.8 10^3/uL (4.0-10.0)
[2022-06-12 04:14] LABS: Anion Gap 15.3 (5-19); Blood Urea Nitrogen 38 mg/dL (8-23); Calcium 8.6 mg/dL (8.5-10.5); Carbon Dioxide 22 mmol/L (22-29); Chloride 106 mmol/L (98-107); Glucose 221 mg/dL (65-115); Osmolality Calculated 304 mOsm/kg (285-295); Potassium 4.3 mmol/L (3.5-5.1); Sodium 139 mmol/L (136-145)
[2022-06-12] MEDS: albuterol 2.5 mg/3 mL Neb INHALATION ×5 (04:18→19:39)
[2022-06-12] MEDS: azithromycin 500 MG in sodium chloride 0.9% 250 ML 250 MG IV (05:41)
[2022-06-12 06:33] LABS: Glucose Point of Care 168 mg/dL (70-110)
--- NOTE | 2022-06-12 07:31 | PM.PN ---
Subjective Subjective: Patient's creatinine continued to worsen. Received IV hydration overnight. However this morning is again short of breath. Put on BiPAP again. Vitals/I&O/Wt Last Vital Signs Temp 97.8 F 06/12/22 03:28 Pulse 96 06/12/22 06:00 Resp 17 06/12/22 03:28 BP 143/76 06/12/22 03:28 Pulse Ox 99 06/12/22 04:00 O2 Del Method 06/12/22 04:00 O2 Flow Rate 2 06/12/22 04:00 FiO2 40 06/11/22 16:52 06/11/22 06/12/22 06/12/22 22:59 06:59 14:59 Intake Total 665 / 915 1000 / 1915 250 / 250 Output Total 1250 / 1250 350 / 1600 Balance -585 / -335 650 / 315 250 / 250 Physical Exam Narrative: GENERAL: Patient is alert, awake and oriented x3. [] NECK: No jugular vein distension. [] HEENT: No cyanosis. No icterus. No pallor. [] HEART: Regular S1 and S2. No murmur, rub or gallop. [] LUNGS: Diminished breath sounds bilaterally CENTRAL NERVOUS SYSTEM: Grossly nonfocal. [] EXTREMITIES: Lower extremities with 1+ edema bilaterally. Urinary Catheter Management: Munson: Cath Placed During This Visit: yes Reason for Continuing Indwelling Catheter: Acute Urinary Retention or Obstruction Urinary Catheter Date of Insertion: 06/10/22 Urinary Catheter Time of Insertion: 05:32 Data 06/12/22 03:32 06/12/22 03:32 Micro: Microbiology 06/10/22 04:42 Blood Culture - Preliminary Blood NEGATIVE TO DATE 06/10/22 04:40 Blood Culture - Preliminary Blood NEGATIVE TO DATE A&P Assessment and plan (1) Acute exacerbation of CHF (congestive heart failure): (2) Acute respiratory failure with hypoxia: (3) Chronic kidney disease due to diabetes mellitus: (4) HTN (hypertension): (5) Coronary artery disease due to type 2 diabetes mellitus: (6) Diabetes type 2, uncontrolled: Qualifiers: Glycemic state: with hyperglycemia Qualified Code(s): E11.65 - Type 2 diabetes mellitus with hyperglycemia (7) Hyperthyroidism: Plan Patient received IV fluids overnight to prepare for cardiac catheterization. Creatinine improved slightly however BUN is still low worsening. She also developed respiratory distress this morning requiring BiPAP use. Consider low-dose Lasix. She also shortness of breath can be secondary to combination of CHF and COVID. Her echocardiogram performed yesterday shows systolic function is moderately reduced and EF is 35 to 40% which is unchanged from her recent echo at [facility] last month. Patient had earlier mentioned that she had coronary angiogram at [facility] in [place]. However they do not have any records on cardiac catheterization. She did have peripheral procedures done there. She does not remember the name of labor custodian or hospital where these procedures were performed. As we do not have record of her prior bypass grafts, we will hold off on cardiac catheterization till renal function improved significantly. Blood pressure i still elevated. We will uptitrate hydralazine to 100 mg 3 times daily. Thank you for involving us with care of this patient. We will continue to follow. Please call with questions. Attestations Medical Necessity Statement*: Care expected to cross 2 midnights. Coding Level of Care Code Acute Entertainment Agent for Kiran [facility] Diagnoses Acute exacerbation of CHF (congestive heart failure) I50.9 Acute respiratory failure with hypoxia J96.01 Chronic kidney disease due to diabetes mellitus E11.22 HTN (hypertension) I10 Coronary artery disease due to type 2 diabetes mellitus E11.59; I25.10 Diabetes type 2, uncontrolled E11.65 Glycemic state: with hyperglycemia Hyperthyroidism E05.90
[2022-06-12] MEDS: ALPRAZolam 0.5 mg Tablet PO ×2 (07:43→21:21)
[2022-06-12] MEDS: budesonide 0.5 mg/2 mL Neb INHALATION ×2 (07:54→19:39)
--- NOTE | 2022-06-12 08:05 | XR_ITS ---
WS: [id number] Portable AP upright chest, 06/12/2022 Clinical Data: increased oxygen demand Comparison: Portable chest, 06/11/2022 Findings: The interstitial basilar opacities throughout the lungs remains the same. The diaphragms ar e flattened. The heart is enlarged. No nodules, masses or effusions are seen. Midline sternotomy sutu res and mediastinal clips are present. There are monitor leads on the chest wall. The aortic arch jc ws calcification. XR/XR chest 1V portable [id number] Impression: No change in hyperinflation, diffuse interstitial opacities, cardiomegaly and a therosclerosis.
[2022-06-12] MEDS: FUROsemide 10 mg/mL SDV 2mL 20 MG IVP ×3 (08:36→23:08)
--- NOTE | 2022-06-12 10:24 | PC.NURSE ---
approved to give patient morning meds late, Patient is resting with unlabored breathing, on bipap in room. Patient had an acute event this morning where she could not catch her breath. Respiratory and physician notified. Patient placed on bipap.
--- NOTE | 2022-06-12 10:58 | PM.PN ---
Vitals/I&O/Wt Last Vital Signs Temp 97.8 F 06/12/22 03:28 Pulse 109 H 06/12/22 08:04 Resp 20 H 06/12/22 08:04 BP 143/76 06/12/22 03:28 Pulse Ox 97 06/12/22 07:56 O2 Del Method 06/12/22 07:56 O2 Flow Rate 2 06/12/22 04:00 FiO2 40 06/12/22 07:56 06/11/22 06/12/22 06/12/22 22:59 06:59 14:59 Intake Total 665 / 915 1000 / 1915 250 / 250 Output Total 1250 / 1250 350 / 1600 Balance -585 / -335 650 / 315 250 / 250 Physical Exam Urinary Catheter Management: Munson: Cath Placed During This Visit: yes Reason for Continuing Indwelling Catheter: Acute Urinary Retention or Obstruction Urinary Catheter Date of Insertion: 06/10/22 Urinary Catheter Time of Insertion: 05:32 Data 06/12/22 03:32 06/12/22 03:32 A&P Assessment and plan (1) Pneumonia due to COVID-19 virus: (2) NSTEMI (non-ST elevated myocardial infarction): (3) Acute exacerbation of CHF (congestive heart failure): (4) Acute respiratory failure with hypoxia: (5) Hyperthyroidism: (6) Chronic kidney disease due to diabetes mellitus: Plan Worsening of shortness of breath overnight required Lasix and BiPAP She got fluids in anticipation of angiogram next day however did not tolerate fluids as well Repeat chest x-ray Continue BiPAP and wean off gradually Plan for angiogram on Wednesday once she is more stabilized Chronic kidney disease creatinine 1.9 slightly worsened from yesterday Baseline seems to be around 1.7-2 COVID-19 related hypoxia: Worsened secondary to fluid overload, Reduced ejection fraction heart failure exacerbation, she will require angiogram We will follow-up with cardiology Full code Attestations Medical Necessity Statement*: Continue continue medical management Time Spent in Patient Care: 30 Coding Level of Care Code Acute Caregivers Non Medical for [facility] Fwsumi Diagnoses Pneumonia due to COVID-19 virus U07.1; J12.82 NSTEMI (non-ST elevated myocardial infarction) I21.4 Acute exacerbation of CHF (congestive heart failure) I50.9 Acute respiratory failure with hypoxia J96.01 Hyperthyroidism E05.90 Chronic kidney disease due to diabetes mellitus E11.22
[2022-06-12] MEDS: venlafaxine ER (24HR) 150 mg Capsule PO (11:15)
[2022-06-12] MEDS: amlodipine 10 mg Tablet PO (11:15)
[2022-06-12] MEDS: clopidogrel 75 mg Tablet PO (11:15)
[2022-06-12] MEDS: levoFLOXacin 750 mg Tablet PO (11:15)
[2022-06-12] MEDS: pantoprazole DR 40 mg Tablet PO (11:15)
[2022-06-12] MEDS: atorvastatin 40 mg Tablet PO (11:15)
[2022-06-12] MEDS: isosorbide mononitrate ER 60 mg Tablet PO ×2 (11:15→17:28)
[2022-06-12] MEDS: methIMAzole 5 MG Tablet PO (11:15)
[2022-06-12] MEDS: aspirin 81 mg EC Tablet PO (11:15)
[2022-06-12] MEDS: fenofibrate 145 mg Tablet PO (11:15)
[2022-06-12 11:42] LABS: Procalcitonin 1.44 ng/mL (0-0.5)
[2022-06-12 12:14] LABS: Glucose Point of Care 233 mg/dL (70-110)
[2022-06-12 12:20] LABS: NT Pro B Type Natriuretic Pept 49604 pg/mL (0-125)
[2022-06-12] MEDS: insulin lispro 100 unit/1 mL SUBCUT ×3 (12:37→21:05)
[2022-06-12] MEDS: hyDRALAzine 50 mg Tablet PO ×2 (14:46→21:05)
[2022-06-12 17:02] LABS: Glucose Point of Care 150 mg/dL (70-110)
[2022-06-12] MEDS: remdesivir 100 MG in sodium chloride 0.9% (100 ml) 80 ML IV (17:54)
[2022-06-12 20:38] LABS: Glucose Point of Care 154 mg/dL (70-110)
[2022-06-12] MEDS: insulin glargine 100 units/1 mL 36 UNIT SUBCUT (21:12)
[2022-06-13] VITALS (20 sets, daily range): BP systolic 152–169; BP diastolic 75–85; PULSE 76–112; RESP 12–20; TEMP 36.4–36.7; O2SAT 95–100
[2022-06-13] MEDS: albuterol 2.5 mg/3 mL Neb INHALATION ×7 (00:50→23:52)
[2022-06-13] MEDS: enoxaparin 80 mg/0.8 mL Syringe 70 MG SUBCUT (03:07)
[2022-06-13] MEDS: pantoprazole 40 mg SDV IVP (03:07)
[2022-06-13] MEDS: azithromycin 500 MG in sodium chloride 0.9% 250 ML 250 MG IV (05:05)
[2022-06-13 05:48] LABS: Basophils % 0.1 %; Hematocrit 36.5 % (37.0-47.0); Hemoglobin 11.7 g/dL (11.5-15.3); Lymphocytes # 0.7 10^3/uL (0.8-4.8); Lymphocytes % 6.1 %; Mean Corpuscular HGB Conc 32.1 g/dL (30.0-36.0); Mean Corpuscular Hemoglobin 30.5 pg (28.0-34.0); Mean Corpuscular Volume 95.3 fl (81-99); Mean Platelet Volume 11.1 fL (7.4-10.4); Monocytes # 0.3 10^3/uL (0.2-0.9); Monocytes % 2.3 %; Neutrophils # 10.58 10^3/uL (1.8-7.7); Neutrophils % 90.9 %; Nucleated Red Blood Cells % 0 %; Platelet Count 274 10^3/cmm (130-400); Red Blood Count 3.83 10^6/uL (4.1-5.3); Red Cell Distribution Width 14.2 % (12.1-15.1); White Blood Count 11.6 10^3/uL (4.0-10.0)
[2022-06-13 06:08] LABS: Anion Gap 17.8 (5-19); Blood Urea Nitrogen 55 mg/dL (8-23); Carbon Dioxide 24 mmol/L (22-29); Chloride 102 mmol/L (98-107); Glucose 215 mg/dL (65-115); Osmolality Calculated 310 mOsm/kg (285-295); Potassium 4.8 mmol/L (3.5-5.1); Sodium 139 mmol/L (136-145)
[2022-06-13 06:09] LABS: Glucose Point of Care 247 mg/dL (70-110)
[2022-06-13] MEDS: budesonide 0.5 mg/2 mL Neb INHALATION ×2 (07:47→19:23)
[2022-06-13] MEDS: insulin lispro 100 unit/1 mL SUBCUT ×4 (08:27→21:36)
[2022-06-13] MEDS: hyDRALAzine 50 mg Tablet PO ×3 (08:28→21:34)
[2022-06-13] MEDS: aspirin 81 mg EC Tablet PO (08:28)
[2022-06-13] MEDS: fenofibrate 145 mg Tablet PO (08:28)
[2022-06-13] MEDS: clopidogrel 75 mg Tablet PO (08:28)
[2022-06-13] MEDS: methIMAzole 5 MG Tablet PO (08:28)
[2022-06-13] MEDS: isosorbide mononitrate ER 60 mg Tablet PO ×2 (08:28→17:02)
[2022-06-13] MEDS: pantoprazole DR 40 mg Tablet PO (08:28)
[2022-06-13] MEDS: amlodipine 10 mg Tablet PO (08:28)
[2022-06-13] MEDS: atorvastatin 40 mg Tablet PO (08:28)
[2022-06-13] MEDS: venlafaxine ER (24HR) 150 mg Capsule PO (08:28)
[2022-06-13] MEDS: docusate sodium 100 mg Capsule PO ×2 (08:29→17:02)
--- NOTE | 2022-06-13 10:12 | PM.PN ---
Subjective Subjective: Total cumulative -2300 fluid balance Patient is stating she is feeling much more energetic and wanted to get up and walk around she is feeling slightly better as compared to yesterday She is doing well on 2 L nasal cannula saturating 100% Sitting in a chair Happy with her progress Creatinine around baseline 2.0 She uses BiPAP every night In last 18 hours negative fluid balance 300 mL Vitals/I&O/Wt Last Vital Signs Temp 98.1 F 06/13/22 07:33 Pulse 93 06/13/22 07:57 Resp 16 06/13/22 07:47 BP 152/84 06/13/22 04:00 Pulse Ox 100 06/13/22 07:47 O2 Del Method 06/13/22 07:47 O2 Flow Rate 3.5 06/13/22 07:47 FiO2 30 06/13/22 04:05 06/12/22 06/13/22 06/13/22 22:59 06:59 14:59 Intake Total 580 / 830 250 / 1080 600 / 600 Output Total 1225 / 1225 500 / 1725 Balance -645 / -395 -250 / -645 600 / 600 Physical Exam Narrative: Patient clinically looks dehydrated Skin wrinkling is prominent Rhonchi and crackles of lung auscultation has improved as compared to yesterday however still present Awake and alert happy with the progress Currently on 2 L saturating 100% Awake and alert Nonfocal neuro exam Eating breakfast In good spirits Urinary Catheter Management: Munson: Cath Placed During This Visit: yes Reason for Continuing Indwelling Catheter: Acute Urinary Retention or Obstruction Urinary Catheter Date of Insertion: 06/10/22 Urinary Catheter Time of Insertion: 05:32 Data 06/13/22 03:28 06/13/22 03:28 A&P Assessment and plan (1) Pneumonia due to COVID-19 virus: (2) NSTEMI (non-ST elevated myocardial infarction): (3) Acute exacerbation of CHF (congestive heart failure): (4) Acute respiratory failure with hypoxia: (5) Chronic kidney disease due to diabetes mellitus: (6) HTN (hypertension): (7) Coronary artery disease due to type 2 diabetes mellitus: (8) Diabetes type 2, uncontrolled: Qualifiers: Glycemic state: with hyperglycemia Qualified Code(s): E11.65 - Type 2 diabetes mellitus with hyperglycemia (9) Hyperthyroidism: (10) Graves disease: Plan NSTEMI: Continue ACS protocol She was getting therapeutic Lovenox once a day finished 48 hours will transition to DVT prophylactic regimen now because of worsening of creatinine No active chest pain Plan for coronary angiogram once her respiratory status has improved patient is endorsing feeling better today Acute hypoxia related to COVID-19 and systolic CHF exacerbation Mixed cardiomyopathy Plan for angiogram once stable Currently on remdesivir Discontinue IV antibiotics She will only get p.o. antibiotics for now which will be renally dosed Levaquin every 48 hours Currently doing well on 2 L nasal cannula Uses BiPAP overnight Shortness of breath secondary to flash pulm edema with underlying COVID-19 She did not tolerate IV fluid at all Continue Lasix Chronic kidney disease creatinine seems to be fluctuating between 1.7-2 Adequate urine output Cut back on Lasix today to IV once daily instead of twice a day Is in negative fluid balance Hyperthyroid: No acute exacerbation continue methimazole Hypertensive urgency: Improved Full code Cardiac diet I will start her on heparin DVT prophylaxis now discontinue Lovenox therapeutic regimen which she has finished with 48 hours I am changing because of worsening of creatinine, will touch base with cardiology today if they want heparin drip instead Attestations Medical Necessity Statement*: Continue medical management Time Spent in Patient Care: 30 Coding Level of Care Code Acute Non Destructive Testing Specialist for [facility] Fwd Diagnoses Pneumonia due to COVID-19 virus U07.1; J12.82 NSTEMI (non-ST elevated myocardial infarction) I21.4 Acute exacerbation of CHF (congestive heart failure) I50.9 Acute respiratory failure with hypoxia J96.01 Chronic kidney disease due to diabetes mellitus E11.22 HTN (hypertension) I10 Coronary artery disease due to type 2 diabetes mellitus E11.59; I25.10 Diabetes type 2, uncontrolled E11.65 Glycemic state: with hyperglycemia Hyperthyroidism E05.90 Graves disease E05.00
[2022-06-13 10:58] LABS: D Dimer 0.79 ug/mIFEU (0-0.59)
[2022-06-13 11:17] LABS: Glucose Point of Care 458 mg/dL (70-110)
[2022-06-13] MEDS: heparin 5,000 unit/mL INJ 1 mL 5000 UNIT SUBCUT ×2 (11:36→21:36)
[2022-06-13] MEDS: FUROsemide 10 mg/mL SDV 2mL 20 MG IVP (11:36)
--- NOTE | 2022-06-13 14:59 | P.PN_ITS ---
Subjective Subjective: The patient is feeling okay. She has no fever. Her breathing is much better. She is currently on 2 L of oxygen by nasal cannula. She is also using the BiPAP in the night. No fever or chills. Has a cough. No other specific complaints. Medications: Medication Review Details: Current Medications Acetaminophen (Acetaminophen 325 Mg Tablet) 650 mg PO Q6H PRN PRN Reason: Mild/Mod Pain Or Temp >/= 101 Last Admin: 06/11/22 21:34 Dose: 650 mg Hydrocodone Bitart/Acetaminophen (Hydrocodone-Acetaminophen 5-325 Mg Tablet) 1 tab PO Q6H PRN PRN Reason: pain Albuterol Sulfate (Albuterol 2.5 Mg/3 Ml Neb) 2.5 mg INHALATION Q4H.RESPIRATORY [facility] Last Admin: 06/13/22 11:22 Dose: 2.5 mg Alprazolam (Alprazolam 0.5 Mg Tablet) 0.5 mg PO TID PRN PRN Reason: ANXIETY Last Admin: 06/12/22 21:21 Dose: 0.5 mg Amlodipine Besylate (Amlodipine 10 Mg Tablet) 10 mg PO DAILY [facility] Last Admin: 06/13/22 08:28 Dose: 10 mg Aspirin (Aspirin 81 Mg Ec Tablet) 81 mg PO DAILY [facility] Last Admin: 06/13/22 08:28 Dose: 81 mg Atorvastatin Calcium (Atorvastatin 40 Mg Tablet) 40 mg PO DAILY [facility] Last Admin: 06/13/22 08:28 Dose: 40 mg Budesonide (Budesonide 0.5 Mg/2 Ml Neb) 0.5 mg INHALATION BID.RESPIRATORY [facility] Last Admin: 06/13/22 07:47 Dose: 0.5 mg Clopidogrel Bisulfate (Clopidogrel 75 Mg Tablet) 75 mg PO DAILY [facility] Last Admin: 06/13/22 08:28 Dose: 75 mg Dextrose (Dextrose 50% Syringe 50 Ml) 25 ml IVP ONCE PRN; Protocol PRN Reason: hypoglycemia protocol Dextrose (Dextrose 50% Syringe 50 Ml) 50 ml IVP PRN PRN; Protocol PRN Reason: hypoglycemia protocol Docusate Sodium (Docusate Sodium 100 Mg Capsule) 100 mg PO BID [facility] Last Admin: 06/13/22 08:29 Dose: 100 mg Enoxaparin Sodium (Enoxaparin 80 Mg/0.8 Ml Syringe) 70 mg 1 mg/kg (70 mg) SUBCUT Q24H [facility] Last Admin: 06/13/22 03:07 Dose: 70 mg Fenofibrate (Fenofibrate 145 Mg Tablet) 145 mg PO DAILY [facility] Last Admin: 06/13/22 08:28 Dose: 145 mg Furosemide (Furosemide 10 Mg/Ml Sdv 4ml) 40 mg IVP Q24H [facility] Last Admin: 06/11/22 10:10 Dose: 40 mg Furosemide (Furosemide 10 Mg/Ml Sdv 2ml) 20 mg IVP Q24H [facility] Last Admin: 06/13/22 11:36 Dose: 20 mg Glucagon (Glucagon 1 Mg/Ml Inj 1 Ml) 1 mg IM ONCE PRN; Protocol PRN Reason: Adult Acute Hypoglycemia Prot. Heparin Sodium (Porcine) (Heparin 5,000 Unit/Ml Inj 1 Ml) 5,000 unit SUBCUT Q12H [facility] Last Admin: 06/13/22 11:36 Dose: 5,000 unit Hydralazine HCl (Hydralazine 50 Mg Tablet) 50 mg PO TID [facility] Last Admin: 06/13/22 08:28 Dose: 50 mg Dextrose (D5w) 500 mls @ 100 mls/hr IV ONCE PRN; Protocol PRN Reason: Adult Acute Hypoglycemia Prot Remdesivir 100 mg/ Sodium (Chloride) 100 mls @ 100 mls/hr IV Q24H [facility] Stop: 06/15/22 18:59 Last Infusion: 06/12/22 19:27 Dose: Infused Insulin Glargine (Insulin Glargine 100 Units/1 Ml) 36 unit SUBCUT BEDTIME [facility] Last Admin: 06/12/22 21:12 Dose: 36 unit Insulin Human Lispro (Insulin Lispro 100 Unit/1 Ml) 0 unit SUBCUT WM&BEDTIME [facility]; Protocol Last Admin: 06/13/22 12:29 Dose: 16 unit Isosorbide Mononitrate (Isosorbide Mononitrate Er 60 Mg Tablet) 60 mg PO BID [facility] Last Admin: 06/13/22 08:28 Dose: 60 mg Levofloxacin (Levofloxacin 750 Mg Tablet) 750 mg PO Q48H [facility]; Protocol Last Admin: 06/12/22 11:15 Dose: 750 mg Methimazole (Methimazole 5 Mg Tablet) 5 mg PO DAILY [facility] Last Admin: 06/13/22 08:28 Dose: 5 mg Methylprednisolone Sodium Succinate (Methylprednisolone Sod Succ 40 Mg/Ml Inj) 60 mg IVP Q12H [facility] Last Admin: 06/13/22 05:05 Dose: 60 mg Nitroglycerin (Nitroglycerin 0.4 Mg Sublingual Tablet) 0.4 mg SUBLINGUAL PRN PRN PRN Reason: CHEST PAINS Ondansetron HCl (Ondansetron 2 Mg/Ml Sdv 2 Ml) 4 mg IVP Q8H PRN PRN Reason: vomiting, or N/V if npo Pantoprazole Sodium (Pantoprazole 40 Mg Sdv) 40 mg IVP Q24H [facility] Last Admin: 06/13/22 03:07 Dose: 40 mg Pantoprazole Sodium (Pantoprazole Dr 40 Mg Tablet) 0 mg PO DAILY [facility] Last Admin: 06/13/22 08:28 Dose: 40 mg Venlafaxine HCl (Venlafaxine Er (24hr) 150 Mg Capsule) 150 mg PO DAILY [facility] Last Admin: 06/13/22 08:28 Dose: 150 mg Vitamin D (Cholecalciferol (Vitamin D3) 5,000 Unit Tablet) 5,000 unit PO Q7D [facility] Last Admin: 06/10/22 06:25 Dose: 5,000 unit Vitals/I&O/Wt Last Vital Signs Temp 98.1 F 06/13/22 07:33 Pulse 88 06/13/22 11:40 Resp 17 06/13/22 11:38 BP 159/75 06/13/22 11:38 Pulse Ox 100 06/13/22 11:38 O2 Del Method 06/13/22 11:29 O2 Flow Rate 2 06/13/22 11:29 FiO2 30 06/13/22 04:05 06/12/22 06/13/22 06/13/22 22:59 06:59 14:59 Intake Total 580 / 830 250 / 1080 960 / 960 Output Total 1225 / 1225 500 / 1725 Balance -645 / -395 -250 / -645 960 / 960 Physical Exam Narrative: GENERAL: The patient is alert and oriented times three. Not in any acute distress. HEENT: No significant pallor, icterus or lymphadenopathy.Oral cavity: There are no mucous membrane lesions. NECK: Trachea appears to be central. No masses noted. No JVD or thyromegaly appreciated. RESPIRATORY: Chest is symmetrical. No intercostals muscle retraction or any accessory muscle activation. There is no chest wall tenderness. Breath sounds are heard bilaterally. Scattered expiratory wheezing and some coarse crackles. BREASTS: Deferred. HEART: The heart sounds are normal. No S3 or S4. Systolic murmur grade 3 or 6 in the left sternal border. No pericardial rub ABDOMEN: No vessel pulsations or distention. No tenderness. No organomegaly appreciated. Bowel sounds are normally heard. : Deferred. RECTAL: Deferred. LYMPHATIC: No lymphadenopathy noted in the neck. EXTREMITIES: No edema or cyanosis. No clubbing. MUSCULOSKELETAL: No acute joint deformities or swelling SKIN: There are no significant rashes or ecchymosis NEUROPSYCHIATRIC: The patient is alert and oriented x3. Appears to be in a good mood. No tremors or rigidity noted. Urinary Catheter Management: Munson: Cath Placed During This Visit: yes Reason for Continuing Indwelling Catheter: Acute Urinary Retention or Obstruct ion Urinary Catheter Date of Insertion: 06/10/22 Urinary Catheter Time of Insertion: 05:32 Data 06/13/22 03:28 06/13/22 03:28 Other Labs: Laboratory Last Values WBC 11.6 10^3/uL (4.0-10.0) H 06/13/22 03:28 RBC 3.83 10^6/uL (4.1-5.3) L 06/13/22 03:28 Hgb 11.7 g/dL (11.5-15.3) 06/13/22 03:28 Hct 36.5 % (37.0-47.0) L 06/13/22 03:28 MCV 95.3 fl (81-99) 06/13/22 03:28 MCH 30.5 pg (28.0-34.0) 06/13/22 03:28 MCHC 32.1 g/dL (30.0-36.0) 06/13/22 03: RDW 14.2 % (12.1-15.1) 06/13/22 03:28 Plt Count 274 10^3/cmm (130-400) 06/13/22 03:28 MPV 11.1 fL (7.4-10.4) H 06/13/22 03:28 Neut % (Auto) 90.9 % 06/13/22 03:28 Lymph % (Auto) 6.1 % 06/13/22 03:28 Winkler % (Auto) 2.3 % 06/13/22 03:28 Eos % (Auto) 0.0 % 06/13/22 03:28 Baso % (Auto) 0.1 % 06/13/22 03:28 Neut # (Auto) 10.58 10^3/uL (1.8-7.7) H 06/13/22 03:28 Lymph # (Auto) 0.7 10^3/uL (0.8-4.8) L 06/13/22 03:28 Winkler # (Auto) 0.3 10^3/uL (0.2-0.9) 06/13/22 03:28 Eos # (Auto) 0.0 10^3/uL (0.0-0.8) 06/13/22 03:28 Baso # (Auto) 0.0 10^3/uL (0.0-0.1) 06/13/22 03:28 Nucleated RBC % (auto) 0 % 06/13/22 03:28 Nucleated RBCs # 0.0 /100WBC 06/13/22 03:28 PT 13.80 SECONDS (12.1-14.9) 06/09/22 21:43 INR 1.03 (0.8-1.2) 06/09/22 21:43 D-Dimer 0.79 ug/mIFEU (0-0.59) H 06/13/22 10:31 Specimen Type Arterial 06/11/22 04:40 Sample Site Radial, right 06/11/22 04:40 ABG pH 7.32 (7.35-7.45) L 06/11/22 04:40 ABG pCO2 44.1 mmHg (35-45) 06/11/22 04:40 ABG pO2 88.1 mmHg (80.0-100.0) 06/11/22 04:40 ABG HCO3 22.8 mmol/L (22-26) 06/11/22 04:40 ABG O2 Saturation 96.9 06/11/22 04:40 ABG Base Excess -3.3 mmol/L (-2.0-2.0) L 06/11/22 04:40 Rene Test Pos 06/11/22 04:40 A-a O2 Gradient 74.0 mmHg (5-10) H 06/11/22 04:40 Hematocrit 41.7 % (37-47) 06/11/22 04:40 Hgb O2 Saturation 95.0 % (95-100) 06/11/22 04:40 Carboxyhemoglobin 1.2 %THgb (0.4-20.1) 06/11/22 04:40 Methemoglobin 0.7 % (0.4-1.5) 06/11/22 04:40 Total Hemoglobin 13.6 g/dL (12-16) 06/11/22 04:40 Sodium 142.0 mmol/L (131-143) 06/11/22 04:40 Potassium 3.7 mmol/L (3.5-5.0) 06/11/22 04:40 Glucose 225.0 mg/dL (70-115) H 06/11/22 04:40 Ionized Calcium 1.3 mmol/L (1.1-1.4) 06/11/22 04:40 O2 Delivery Device Nrb 06/11/22 04:40 FiO2 100.0 % 06/11/22 04:40 Inventory Administrator ID Droch 06/11/22 04:40 Sodium 139 mmol/L (136-145) 06/13/22 03:28 Potassium 4.8 mmol/L (3.5-5.1) 06/13/22 03:28 Chloride 102 mmol/L (98-107) 06/13/22 03:28 Carbon Dioxide 24 mmol/L (22-29) 06/13/22 03:28 Anion Gap 17.8 (5-19) 06/13/22 03:28 BUN 55 mg/dL (8-23) H 06/13/22 03:28 Creatinine 2.1 mg/dL (0.5-0.9) H 06/13/22 03:28 GFR Calculation Not Reportable 06/13/22 03:28 Glucose 215 mg/dL (65-115) H 06/13/22 03:28 POC Glucose 458 mg/dL (70-110) H 06/13/22 11:10 Estimat Average Glucose 160 06/10/22 04:40 Hemoglobin A1c 7.2 % (4.0-6.0) H 06/10/22 04:40 Calculated Osmolality 310 mOsm/kg (285-295) H 06/13/22 03:28 Lactic Acid 1.3 mmol/L (0.5-2.2) 06/10/22 04:40 Calcium 9.0 mg/dL (8.5-10.5) 06/13/22 03:28 Total Bilirubin 0.2 mg/dL (0.15-1.2) 06/11/22 03:44 AST 26 U/L (0-32) 06/11/22 03:44 ALT 11 U/L (0-33) 06/11/22 03:44 Alkaline Phosphatase 81 U/L (35-105) 06/11/22 03:44 Troponin T Baseline 67 ng/L (0-10) H 06/09/22 21:43 Troponin T 120 Minute 223.5 ng/L (0-10) H 06/10/22 00:15 Delta Troponin T 156.5 ABS# (0-10) H* 06/10/22 00:15 Troponin T Hi Sens 6Hr 737.0 ng/L (0-10) H 06/10/22 04:40 Troponin T Hi Sens 6Hr Delta 670.0 ng/L (0-12) H* 06/10/22 04:40 NT-Pro-B Natriuret Pep 31189 pg/mL (0-125) H 06/12/22 03:32 Total Protein 6.4 g/dL (6.6-8.7) L 06/11/22 03:44 Albumin 3.2 g/dL (3.5-5.2) L 06/11/22 03:44 Globulin 3.2 g/dL (1.3-4.6) 06/11/22 03:44 Triglycerides 101 mg/dL (0-150) 06/10/22 04:40 Cholesterol 194 mg/dL (0-200) 06/10/22 04:40 LDL Cholesterol, Calc 109 mg/dL (50-129) 06/10/22 04:40 HDL Cholesterol 65 mg/dL (60-100) 06/10/22 04:40 LDL/HDL Ratio 1.68 RATIO (0.00-3.22) 06/10/22 04:40 Cholesterol/HDL Ratio 2.98 mg/dL (0.0-4.40) 06/10/22 04:40 Lipase 29 U/L (13-60) 06/09/22 21:43 Procalcitonin 1.44 ng/mL (0-0.5) H 06/12/22 03:32 TSH 2.19 uIU/mL (0.27-4.20) 06/10/22 04:40 Influenza Type A Ag negative (Negative) 06/09/22 23:58 Influenza Type B Ag negative (Negative) 06/09/22 23:58 SARS-CoV-2 Ag (Rapid) positive (Negative) 06/09/22 23:58 EKG 1: EKG computer-generated impression: The EKG from 06/10/2022 reveals sinus rhythm with some nonspecific ST-T changes in the high lateral leads. Features of old fever myocardial infarction. Nonspecific IVCD. A&P Assessment and plan (1) NSTEMI (non-ST elevated myocardial infarction): Patient is currently chest pain-free. The EKG changes are nonspecific. May co ntinue on the Lovenox, Plavix, aspirin and other symptomatic measures. (2) Acute exacerbation of CHF (congestive heart failure): May continue the careful IV diuresis. (3) Acute respiratory failure with hypoxia: The respiratory status is improving. Continue on the current management. (4) Pneumonia due to COVID-19 virus: As mentioned above. (5) Chronic kidney disease due to diabetes mellitus: The blood urea nitrogen/creatinine ratio is 55/2.1. The Lasix is on hold at this time. Plan The other problems are Dyslipidemia Type 2 diabetes COPD exacerbation We will check the BMP in the morning. May continue on the current medications. Possible cardiac catheterization on Wednesday Attestations Medical Necessity Statement*: Deferred to the primary Coding Level of Care Code Acute Directory Compiler for g Fwd History Expanded Problem Focused Exam Expanded Problem Focused Medical Decision Making Moderate Complexity Diagnoses NSTEMI (non-ST elevated myocardial infarction) I21.4 Acute exacerbation of CHF (congestive heart failure) I50.9 Acute respiratory failure with hypoxia J96.01 Pneumonia due to COVID-19 virus U07.1; J12.82 Chronic kidney disease due to diabetes mellitus E11.22
[2022-06-13 16:48] LABS: Glucose Point of Care 306 mg/dL (70-110)
[2022-06-13] MEDS: remdesivir 100 MG in sodium chloride 0.9% (100 ml) 80 ML IV (18:29)
[2022-06-13 20:47] LABS: Glucose Point of Care 246 mg/dL (70-110)
[2022-06-13] MEDS: ALPRAZolam 0.5 mg Tablet PO (21:34)
[2022-06-13] MEDS: acetaminophen 325 mg Tablet 650 MG PO (21:34)
[2022-06-13] MEDS: insulin glargine 100 units/1 mL 36 UNIT SUBCUT (21:35)
[2022-06-14] VITALS (13 sets, daily range): BP systolic 123–170; BP diastolic 58–96; PULSE 87–107; RESP 12–25; TEMP 36.4–37.4; O2SAT 94–100
[2022-06-14] MEDS: pantoprazole 40 mg SDV IVP (02:26)
[2022-06-14] MEDS: albuterol 2.5 mg/3 mL Neb INHALATION ×5 (04:09→21:10)
[2022-06-14 06:26] LABS: Glucose Point of Care 136 mg/dL (70-110)
[2022-06-14 06:54] LABS: Anion Gap 15.6 (5-19); Blood Urea Nitrogen 68 mg/dL (8-23); Calcium 8.9 mg/dL (8.5-10.5); Carbon Dioxide 23 mmol/L (22-29); Chloride 103 mmol/L (98-107); Creatinine Clr Calc Pharmacy 22.8844; Glucose 124 mg/dL (65-115); Osmolality Calculated 305 mOsm/kg (285-295); Potassium 4.6 mmol/L (3.5-5.1); Sodium 137 mmol/L (136-145)
[2022-06-14] MEDS: budesonide 0.5 mg/2 mL Neb INHALATION ×2 (07:33→21:10)
[2022-06-14] MEDS: venlafaxine ER (24HR) 150 mg Capsule PO (09:14)
[2022-06-14] MEDS: isosorbide mononitrate ER 60 mg Tablet PO ×2 (09:14→17:29)
[2022-06-14] MEDS: hyDRALAzine 50 mg Tablet PO ×3 (09:14→22:01)
[2022-06-14] MEDS: clopidogrel 75 mg Tablet PO (09:14)
[2022-06-14] MEDS: fenofibrate 145 mg Tablet PO (09:14)
[2022-06-14] MEDS: amlodipine 10 mg Tablet PO (09:14)
[2022-06-14] MEDS: methIMAzole 5 MG Tablet PO (09:14)
[2022-06-14] MEDS: pantoprazole DR 40 mg Tablet PO (09:14)
[2022-06-14] MEDS: atorvastatin 40 mg Tablet PO (09:15)
[2022-06-14] MEDS: aspirin 81 mg EC Tablet PO (09:15)
[2022-06-14] MEDS: docusate sodium 100 mg Capsule PO (09:15)
--- NOTE | 2022-06-14 09:49 | PM.PN ---
Subjective Subjective: Patient's breathing is much better. She also is feeling better. Still may have a little bit of cough. No chest pain. No fever or chills. No other specific complaints. Medications: Medication Review Details: Current Medications Acetaminophen (Acetaminophen 325 Mg Tablet) 650 mg PO Q6H PRN PRN Reason: Mild/Mod Pain Or Temp >/= 101 Last Admin: 06/13/22 21:34 Dose: 650 mg Albuterol Sulfate (Albuterol 2.5 Mg/3 Ml Neb) 2.5 mg INHALATION Q4H.RESPIRATORY YASMANI Last Admin: 06/14/22 07:33 Dose: 2.5 mg Alprazolam (Alprazolam 0.5 Mg Tablet) 0.5 mg PO TID PRN PRN Reason: ANXIETY Last Admin: 06/13/22 21:34 Dose: 0.5 mg Amlodipine Besylate (Amlodipine 10 Mg Tablet) 10 mg PO DAILY YASMANI Last Admin: 06/14/22 09:14 Dose: 10 mg Aspirin (Aspirin 81 Mg Ec Tablet) 81 mg PO DAILY YASMANI Last Admin: 06/14/22 09:15 Dose: 81 mg Atorvastatin Calcium (Atorvastatin 40 Mg Tablet) 40 mg PO DAILY YASMANI Last Admin: 06/14/22 09:15 Dose: 40 mg Budesonide (Budesonide 0.5 Mg/2 Ml Neb) 0.5 mg INHALATION BID.RESPIRATORY YASMANI Last Admin: 06/14/22 07:33 Dose: 0.5 mg Clopidogrel Bisulfate (Clopidogrel 75 Mg Tablet) 75 mg PO DAILY YASMANI Last Admin: 06/14/22 09:14 Dose: 75 mg Dextrose (Dextrose 50% Syringe 50 Ml) 25 ml IVP ONCE PRN; Protocol PRN Reason: hypoglycemia protocol Dextrose (Dextrose 50% Syringe 50 Ml) 50 ml IVP PRN PRN; Protocol PRN Reason: hypoglycemia protocol Docusate Sodium (Docusate Sodium 100 Mg Capsule) 100 mg PO BID YASMANI Last Admin: 06/14/22 09:15 Dose: 100 mg Enoxaparin Sodium (Enoxaparin 80 Mg/0.8 Ml Syringe) 70 mg 1 mg/kg (70 mg) SUBCUT Q24H YASMANI Last Admin: 06/13/22 03:07 Dose: 70 mg Fenofibrate (Fenofibrate 145 Mg Tablet) 145 mg PO DAILY YASMANI Last Admin: 06/14/22 09:14 Dose: 145 mg Furosemide (Furosemide 10 Mg/Ml Sdv 4ml) 40 mg IVP Q24H [facility] Last Admin: 06/11/22 10:10 Dose: 40 mg Furosemide (Furosemide 10 Mg/Ml Sdv 2ml) 20 mg IVP Q24H [facility] Last Admin: 06/13/22 11:36 Dose: 20 mg Glucagon (Glucagon 1 Mg/Ml Inj 1 Ml) 1 mg IM ONCE PRN; Protocol PRN Reason: Adult Acute Hypoglycemia Prot. Heparin Sodium (Porcine) (Heparin 5,000 Unit/Ml Inj 1 Ml) 5,000 unit SUBCUT Q12H [facility] Last Admin: 06/13/22 21:36 Dose: 5,000 unit Hydralazine HCl (Hydralazine 50 Mg Tablet) 50 mg PO TID [facility] Last Admin: 06/14/22 09:14 Dose: 50 mg Dextrose (D5w) 500 mls @ 100 mls/hr IV ONCE PRN; Protocol PRN Reason: Adult Acute Hypoglycemia Prot Remdesivir 100 mg/ Sodium (Chloride) 100 mls @ 100 mls/hr IV Q24H [facility] Stop: 06/15/22 18:59 Last Infusion: 06/13/22 20:05 Dose: Infused Insulin Glargine (Insulin Glargine 100 Units/1 Ml) 36 unit SUBCUT BEDTIME [facility] Last Admin: 06/13/22 21:35 Dose: 36 unit Insulin Human Lispro (Insulin Lispro 100 Unit/1 Ml) 0 unit SUBCUT WM&BEDTIME [facility]; Protocol Last Admin: 06/14/22 07:02 Dose: Not Given Isosorbide Mononitrate (Isosorbide Mononitrate Er 60 Mg Tablet) 60 mg PO BID [facility] Last Admin: 06/14/22 09:14 Dose: 60 mg Levofloxacin (Levofloxacin 750 Mg Tablet) 750 mg PO Q48H [facility]; Protocol Last Admin: 06/12/22 11:15 Dose: 750 mg Methimazole (Methimazole 5 Mg Tablet) 5 mg PO DAILY [facility] Last Admin: 06/14/22 09:14 Dose: 5 mg Methylprednisolone Sodium Succinate (Methylprednisolone Sod Succ 40 Mg/Ml Inj) 60 mg IVP Q12H [facility] Last Admin: 06/14/22 04:51 Dose: 60 mg Nitroglycerin (Nitroglycerin 0.4 Mg Sublingual Tablet) 0.4 mg SUBLINGUAL PRN PRN PRN Reason: CHEST PAINS Ondansetron HCl (Ondansetron 2 Mg/Ml Sdv 2 Ml) 4 mg IVP Q8H PRN PRN Reason: vomiting, or N/V if npo Pantoprazole Sodium (Pantoprazole 40 Mg Sdv) 40 mg IVP Q24H [facility] Last Admin: 06/14/22 02:26 Dose: 40 mg Pantoprazole Sodium (Pantoprazole Dr 40 Mg Tablet) 0 mg PO DAILY [facility] Last Admin: 06/14/22 09:14 Dose: 40 mg Venlafaxine HCl (Venlafaxine Er (24hr) 150 Mg Capsule) 150 mg PO DAILY [facility] Last Admin: 06/14/22 09:14 Dose: 150 mg Vitamin D (Cholecalciferol (Vitamin D3) 5,000 Unit Tablet) 5,000 unit PO Q7D [facility] Last Admin: 06/10/22 06:25 Dose: 5,000 unit Vitals/I&O/Wt Last Vital Signs Temp 98.0 F 06/14/22 04:00 Pulse 89 06/14/22 07:43 Resp 16 06/14/22 07:36 BP 145/74 06/14/22 07:15 Pulse Ox 99 06/14/22 07:36 O2 Del Method 06/14/22 07:36 O2 Flow Rate 2 06/14/22 07:36 FiO2 30 06/14/22 04:00 06/13/22 06/14/22 06/14/22 22:59 06:59 14:59 Intake Total 100 / 1060 240 / 240 Output Total 1550 / 1550 200 / 1750 Balance -1450 / -490 -200 / -690 240 / 240 Physical Exam Narrative: GENERAL: The patient is alert and oriented times three. Not in any acute distress. HEENT: No significant pallor, icterus or lymphadenopathy.Oral cavity: There are no mucous membrane lesions. NECK: Trachea appears to be central. No masses noted. No JVD or thyromegaly appreciated. RESPIRATORY: Chest is symmetrical. No intercostals muscle retraction or any accessory muscle activation. There is no chest wall tenderness. Breath sounds are heard bilaterally. Scattered expiratory wheezing BREASTS: Deferred. HEART: The heart sounds are normal. No S3 or S4. Systolic murmur grade 3 or 6 in the left sternal border. No pericardial rub ABDOMEN: No vessel pulsations or distention. No tenderness. No organomegaly appreciated. Bowel sounds are normally heard. : Deferred. RECTAL: Deferred. LYMPHATIC: No lymphadenopathy noted in the neck. EXTREMITIES: No edema or cyanosis. No clubbing. MUSCULOSKELETAL: No acute joint deformities or swelling SKIN: There are no significant rashes or ecchymosis NEUROPSYCHIATRIC: The patient is alert and oriented x3. Appears to be in a good mood. No tremors or rigidity noted. Urinary Catheter Management: Munson: Cath Placed During This Visit: yes Reason for Continuing Indwelling Catheter: Other Urinary Catheter Date of Insertion: 06/10/22 Urinary Catheter Time of Insertion: 05:32 Data 06/13/22 03:28 06/14/22 06:15 Other Labs: Laboratory Last Values WBC 11.6 10^3/uL (4.0-10.0) H 06/13/22 03:28 RBC 3.83 10^6/uL (4.1-5.3) L 06/13/22 03:28 Hgb 11.7 g/dL (11.5-15.3) 06/13/22 03:28 Hct 36.5 % (37.0-47.0) L 06/13/22 03:28 MCV 95.3 fl (81-99) 06/13/22 03:28 MCH 30.5 pg (28.0-34.0) 06/13/22 03:28 MCHC 32.1 g/dL (30.0-36.0) 06/13/22 03:28 RDW 14.2 % (12.1-15.1) 06/13/22 03:28 Plt Count 274 10^3/cmm (130-400) 06/13/22 03:28 MPV 11.1 fL (7.4-10.4) H 06/13/22 03:28 Neut % (Auto) 90.9 % 06/13/22 03:28 Lymph % (Auto) 6.1 % 06/13/22 03:28 [place] % (Auto) 2.3 % 06/13/22 03:28 Eos % (Auto) 0.0 % 06/13/22 03:28 Baso % (Auto) 0.1 % 06/13/22 03:28 Neut # (Auto) 10.58 10^3/uL (1.8-7.7) H 06/13/22 03:28 Lymph # (Auto) 0.7 10^3/uL (0.8-4.8) L 06/13/22 03:28 [place] # (Auto) 0.3 10^3/uL (0.2-0.9) 06/13/22 03:28 Eos # (Auto) 0.0 10^3/uL (0.0-0.8) 06/13/22 03:28 Baso # (Auto) 0.0 10^3/uL (0.0-0.1) 06/13/22 03:28 Nucleated RBC % (auto) 0 % 06/13/22 03:28 Nucleated RBCs # 0.0 /100WBC 06/13/22 03:28 PT 13.80 SECONDS (12.1-14.9) 06/09/22 21:43 INR 1.03 (0.8-1.2) 06/09/22 21:43 D-Dimer 0.79 ug/mIFEU (0-0.59) H 06/13/22 10:31 Specimen Type Arterial 06/11/22 04:40 Sample Site Radial, right 06/11/22 04:40 ABG pH 7.32 (7.35-7.45) L 06/11/22 04:40 ABG pCO2 44.1 mmHg (35-45) 06/11/22 04:40 ABG pO2 88.1 mmHg (80.0-100.0) 06/11/22 04:40 ABG HCO3 22.8 mmol/L (22-26) 06/11/22 04:40 ABG O2 Saturation 96.9 06/11/22 04:40 ABG Base Excess -3.3 mmol/L (-2.0-2.0) L 06/11/22 04:40 Rene Test Pos 06/11/22 04:40 A-a O2 Gradient 74.0 mmHg (5-10) H 06/11/22 04:40 Hematocrit 41.7 % (37-47) 06/11/22 04:40 Hgb O2 Saturation 95.0 % (95-100) 06/11/22 04:40 Carboxyhemoglobin 1.2 %THgb (0.4-20.1) 06/11/22 04:40 Methemoglobin 0.7 % (0.4-1.5) 06/11/22 04:40 Total Hemoglobin 13.6 g/dL (12-16) 06/11/22 04:40 Sodium 142.0 mmol/L (131-143) 06/11/22 04:40 Potassium 3.7 mmol/L (3.5-5.0) 06/11/22 04:40 Glucose 225.0 mg/dL (70-115) H 06/11/22 04:40 Ionized Calcium 1.3 mmol/L (1.1-1.4) 06/11/22 04:40 O2 Delivery Device Nrb 06/11/22 04:40 FiO2 100.0 % 06/11/22 04:40 Buckle Wire Inserter ID Droch 06/11/22 04:40 Sodium 137 mmol/L (136-145) 06/14/22 06:15 Potassium 4.6 mmol/L (3.5-5.1) 06/14/22 06:15 Chloride 103 mmol/L (98-107) 06/14/22 06:15 Carbon Dioxide 23 mmol/L (22-29) 06/14/22 06:15 Anion Gap 15.6 (5-19) 06/14/22 06:15 BUN 68 mg/dL (8-23) H 06/14/22 06:15 Creatinine 2.0 mg/dL (0.5-0.9) H 06/14/22 06:15 GFR Calculation Not Reportable 06/14/22 06:15 Glucose 124 mg/dL (65-115) H 06/14/22 06:15 POC Glucose 136 mg/dL (70-110) H 06/14/22 06:23 Estimat Average Glucose 160 06/10/22 04:40 Hemoglobin A1c 7.2 % (4.0-6.0) H 06/10/22 04:40 Calculated Osmolality 305 mOsm/kg (285-295) H 06/14/22 06:15 Lactic Acid 1.3 mmol/L (0.5-2.2) 06/10/22 04:40 Calcium 8.9 mg/dL (8.5-10.5) 06/14/22 06:15 Total Bilirubin 0.2 mg/dL (0.15-1.2) 06/11/22 03:44 AST 26 U/L (0-32) 06/11/22 03:44 ALT 11 U/L (0-33) 06/11/22 03:44 Alkaline Phosphatase 81 U/L (35-105) 06/11/22 03:44 Troponin T Baseline 67 ng/L (0-10) H 06/09/22 21:43 Troponin T 120 Minute 223.5 ng/L (0-10) H 06/10/22 00:15 Delta Troponin T 156.5 ABS# (0-10) H* 06/10/22 00:15 Troponin T Hi Sens 6Hr 737.0 ng/L (0-10) H 06/10/22 04:40 Troponin T Hi Sens 6Hr Delta 670.0 ng/L (0-12) H* 06/10/22 04:40 NT-Pro-B Natriuret Pep 61783 pg/mL (0-125) H 06/12/22 03:32 Total Protein 6.4 g/dL (6.6-8.7) L 06/11/22 03:44 Albumin 3.2 g/dL (3.5-5.2) L 06/11/22 03:44 Globulin 3.2 g/dL (1.3-4.6) 06/11/22 03:44 Triglycerides 101 mg/dL (0-150) 06/10/22 04:40 Cholesterol 194 mg/dL (0-200) 06/10/22 04:40 LDL Cholesterol, Calc 109 mg/dL (50-129) 06/10/22 04:40 HDL Cholesterol 65 mg/dL (60-100) 06/10/22 04:40 LDL/HDL Ratio 1.68 RATIO (0.00-3.22) 06/10/22 04:40 Cholesterol/HDL Ratio 2.98 mg/dL (0.0-4.40) 06/10/22 04:40 Lipase 29 U/L (13-60) 06/09/22 21:43 Procalcitonin 1.44 ng/mL (0-0.5) H 06/12/22 03:32 TSH 2.19 uIU/mL (0.27-4.20) 06/10/22 04:40 Influenza Type A Ag negative (Negative) 06/09/22 23:58 Influenza Type B Ag negative (Negative) 06/09/22 23:58 SARS-CoV-2 Ag (Rapid) positive (Negative) 06/09/22 23:58 A&P Assessment and plan (1) NSTEMI (non-ST elevated myocardial infarction): Patient is currently chest pain-free. The EKG changes are nonspecific. May continue on the Lovenox, Plavix, aspirin and other symptomatic measures. (2) Acute exacerbation of CHF (congestive heart failure): Heart failure is fairly compensated at this time. (3) Acute respiratory failure with hypoxia: The respiratory status is improving. Continue on the current management. (4) Pneumonia due to COVID-19 virus: Patient is oxygen saturation room air is 98%. (5) Chronic kidney disease due to diabetes mellitus: The BUN/creatinine ratio is remaining high Plan The other problems are Dyslipidemia Type 2 diabetes COPD exacerbation Patient requires a cardiac catheterization, to further evaluate the coronary status and decide on further management. In view of the worsening BUN/creatinine, we may have to hold off on this. I may do some careful hydration tonight and repeat the BMP in the morning. We will be starting on normal saline 75 cc/h tonight Attestations Medical Necessity Statement*: Patient requires continued hospital stay for close monitoring and further management Coding Level of Care Code Acute Curtain Supervisor for Chg Fwd History Expanded Problem Focused Exam Expanded Problem Focused Medical Decision Making Moderate Complexity Diagnoses NSTEMI (non-ST elevated myocardial infarction) I21.4 Acute exacerbation of CHF (congestive heart failure) I50.9 Acute respiratory failure with hypoxia J96.01 Pneumonia due to COVID-19 virus U07.1; J12.82 Chronic kidney disease due to diabetes mellitus E11.22
--- NOTE | 2022-06-14 10:24 | PM.PN ---
Subjective Subjective: Morning patient is on room air Feeling much better She is asking if angiogram could be delayed and she can follow-up outpatient for an elective angiogram I asked her to follow-up with cardiology today and then decide She is eating breakfast sitting at the bedside Lasix on hold today Creatinine around 2 adequate urine output Vitals/I&O/Wt Last Vital Signs Temp 98.0 F 06/14/22 04:00 Pulse 89 06/14/22 07:43 Resp 16 06/14/22 07:36 BP 145/74 06/14/22 07:15 Pulse Ox 99 06/14/22 07:36 O2 Del Method 06/14/22 07:36 O2 Flow Rate 2 06/14/22 07:36 FiO2 30 06/14/22 04:00 06/13/22 06/14/22 06/14/22 22:59 06:59 14:59 Intake Total 100 / 1060 240 / 240 Output Total 1550 / 1550 200 / 1750 Balance -1450 / -490 -200 / -690 240 / 240 Physical Exam Narrative: Clinical signs of fluid overload improving Bilateral breath sounds with mild rhonchi wheezing and crackles improved Currently on room air Awake and alert S1, S2 Hemodynamically stable Awake and alert nonfocal neuro exam Sitting at the bedside eating breakfast Urinary Catheter Management: Munson: Cath Placed During This Visit: yes Reason for Continuing Indwelling Catheter: Other Urinary Catheter Date of Insertion: 06/10/22 Urinary Catheter Time of Insertion: 05:32 Data 06/13/22 03:28 06/14/22 06:15 A&P Assessment and plan (1) Pneumonia due to COVID-19 virus: (2) NSTEMI (non-ST elevated myocardial infarction): (3) Acute exacerbation of CHF (congestive heart failure): (4) Acute respiratory failure with hypoxia: (5) Chronic kidney disease due to diabetes mellitus: (6) HTN (hypertension): (7) Coronary artery disease due to type 2 diabetes mellitus: (8) Diabetes type 2, uncontrolled: Qualifiers: Glycemic state: with hyperglycemia Qualified Code(s): E11.65 - Type 2 diabetes mellitus with hyperglycemia (9) Hyperthyroidism: Plan NSTEMI Patient is continuing aspirin and Plavix, Lovenox has been transitioned to DVT prophylactic dose now because of worsening of creatinine She has finished 48 hours on therapeutic Lovenox No active chest pain or shortness of Follow-up with cardiology if they are still planning for an angiogram Acute hypoxia: Resolved Currently on room air COVID-19 pneumonia We will discontinue isolation tomorrow If there is no plan for an angiogram on Wednesday I will discharge her and have her follow-up with cardiology outpatient for staged procedure Discontinue antibiotics at the time of discharge Systolic CHF exacerbation: Resolved Lasix on hold today Chronic kidney disease creatinine seems around baseline Likely hypertension and diabetes related Will need outpatient nephro consultation as well Full code Cardiac diet DVT prophylaxis on board Hyperthyroid:- no acute exacerbation:- continue methimazole Attestations Medical Necessity Statement*: Continue medical management Time Spent in Patient Care: 30 Coding Level of Care Code Acute Information Services Assistant for g Fwd Diagnoses Pneumonia due to COVID-19 virus U07.1; J12.82 NSTEMI (non-ST elevated myocardial infarction) I21.4 Acute exacerbation of CHF (congestive heart failure) I50.9 Acute respiratory failure with hypoxia J96.01 Chronic kidney disease due to diabetes mellitus E11.22 HTN (hypertension) I10 Coronary artery disease due to type 2 diabetes mellitus E11.59; I25.10 Diabetes type 2, uncontrolled E11.65 Glycemic state: with hyperglycemia Hyperthyroidism E05.90
[2022-06-14] MEDS: levoFLOXacin 750 mg Tablet PO (10:43)
[2022-06-14] MEDS: heparin 5,000 unit/mL INJ 1 mL 5000 UNIT SUBCUT ×2 (10:44→22:02)
[2022-06-14 11:28] LABS: Glucose Point of Care 335 mg/dL (70-110)
[2022-06-14] MEDS: insulin lispro 100 unit/1 mL SUBCUT ×2 (13:26→17:29)
[2022-06-14 16:57] LABS: Glucose Point of Care 164 mg/dL (70-110)
[2022-06-14] MEDS: remdesivir 100 MG in sodium chloride 0.9% (100 ml) 80 ML IV (17:30)
[2022-06-14 21:16] LABS: Glucose Point of Care 116 mg/dL (70-110)
[2022-06-14] MEDS: sodium chlor 0.9% + KCl 20 mEq 20 MEQ/1,000 ML BAG 75 MEQ IV (21:58)
[2022-06-14] MEDS: acetaminophen 325 mg Tablet 650 MG PO (22:01)
[2022-06-14] MEDS: insulin glargine 100 units/1 mL 36 UNIT SUBCUT (22:02)
[2022-06-14] MEDS: ALPRAZolam 0.5 mg Tablet PO (22:02)
[2022-06-15] VITALS (14 sets, daily range): BP systolic 118–185; BP diastolic 80–86; PULSE 84–106; RESP 14–22; TEMP 36.3–37.1; O2SAT 95–99
[2022-06-15] MEDS: albuterol 2.5 mg/3 mL Neb INHALATION ×5 (00:34→15:48)
[2022-06-15 04:03] LABS: Eosinophils # 0.1 10^3/uL (0.0-0.8); Eosinophils % 0.8 %; Hematocrit 36.5 % (37.0-47.0); Hemoglobin 11.5 g/dL (11.5-15.3); Lymphocytes # 2.7 10^3/uL (0.8-4.8); Lymphocytes % 29.4 %; Mean Corpuscular HGB Conc 31.5 g/dL (30.0-36.0); Mean Corpuscular Hemoglobin 30.3 pg (28.0-34.0); Mean Corpuscular Volume 96.3 fl (81-99); Mean Platelet Volume 10.7 fL (7.4-10.4); Monocytes # 0.6 10^3/uL (0.2-0.9); Monocytes % 6.1 %; Neutrophils # 5.82 10^3/uL (1.8-7.7); Neutrophils % 63.5 %; Nucleated Red Blood Cells % 0 %; Platelet Count 279 10^3/cmm (130-400); Red Blood Count 3.79 10^6/uL (4.1-5.3); White Blood Count 9.2 10^3/uL (4.0-10.0)
[2022-06-15 04:34] LABS: Anion Gap 14.5 (5-19); Blood Urea Nitrogen 69 mg/dL (8-23); Calcium 9.1 mg/dL (8.5-10.5); Carbon Dioxide 24 mmol/L (22-29); Chloride 107 mmol/L (98-107); Glucose 53 mg/dL (65-115); Osmolality Calculated 310 mOsm/kg (285-295); Potassium 4.5 mmol/L (3.5-5.1); Sodium 141 mmol/L (136-145)
[2022-06-15 04:35] LABS: Creatinine Clr Calc Pharmacy 22.8844
[2022-06-15 06:27] LABS: Glucose Point of Care 83 mg/dL (70-110)
[2022-06-15] MEDS: budesonide 0.5 mg/2 mL Neb INHALATION (07:36)
--- NOTE | 2022-06-15 09:03 | P.PN_ITS ---
Subjective Subjective: Patient is chest pain free. Renal function has not improved over the weekend. BUN is 69. She wants to go home. Vitals/I&O/Wt Last Vital Signs Temp 97.4 F L 06/15/22 04:00 Pulse 94 06/15/22 07:48 Resp 16 06/15/22 07:48 BP 118/80 06/15/22 04:00 Pulse Ox 95 06/15/22 07:48 O2 Del Method 06/15/22 07:48 O2 Flow Rate 2 06/14/22 07:36 FiO2 30 06/15/22 04:00 06/14/22 06/15/22 06/15/22 22:59 06:59 14:59 Intake Total 580 / 1290 550 / 1840 Output Total 1150 / 1150 250 / 1400 Balance -570 / 140 300 / 440 Physical Exam Narrative: GENERAL: Patient is alert, awake and oriented x3. [] NECK: No jugular vein distension. [] HEENT: No cyanosis. No icterus. No pallor. [] HEART: Regular S1 and S2. No murmur, rub or gallop. [] LUNGS: Diminished breath sounds bilaterally CENTRAL NERVOUS SYSTEM: Grossly nonfocal. [] EXTREMITIES: Lower extremities with 1+ edema bilaterally. Urinary Catheter Management: [place]: Cath Placed During This Visit: yes Reason for Continuing Indwelling Catheter: Other Urinary Catheter Date of Insertion: 06/10/22 Urinary Catheter Time of Insertion: 05:32 Data 06/15/22 03:40 06/15/22 03:40 Micro: Microbiology 06/10/22 04:42 Blood Culture - Final Blood NO GROWTH AFTER 5 DAYS 06/10/22 04:40 Blood Culture - Final Blood NO GROWTH AFTER 5 DAYS A&P Assessment and plan (1) Acute exacerbation of CHF (congestive heart failure): (2) Acute respiratory failure with hypoxia: (3) Chronic kidney disease due to diabetes mellitus: (4) HTN (hypertension): (5) Coronary artery disease due to type 2 diabetes mellitus: (6) Diabetes type 2, uncontrolled: Qualifiers: Glycemic state: with hyperglycemia Qualified Code(s): E11.65 - Type 2 diabetes mellitus with hyperglycemia (7) Hyperthyroidism: Plan All options were discussed with the patient regarding invasive coronary angiogram versus medical therapy versus stress test. Patient wants to go home. She is chest pain-free. Her EF is unchanged from recent echocardiogram performed last month at outside hospital. She wants to get work-up done as outpatient. She also does not want to proceed with angiography given her renal function. She understands the risks of having [place]. Low-dose Lasix at time of discharge. Dual antiplatelet therapy Outpatient creatinine and BUN in 3 to 5 days. Will need to follow with cardiology. She would also benefit from nephrology referral as her kidney function has deteriorated in the last 1 to 2 months. Thank you for involving us with care of this patient. We will continue to follow. Please call with questions. Attestations Medical Necessity Statement*: Care expected to cross 2 midnights. Coding Level of Care Code Acute Horticultural Manager for Kiran [place] Diagnoses Acute exacerbation of CHF (congestive heart failure) I50.9 Acute respiratory failure with hypoxia J96.01 Chronic kidney disease due to diabetes mellitus E11.22 HTN (hypertension) I10 Coronary artery disease due to type 2 diabetes mellitus E11.59; I25.10 Diabetes type 2, uncontrolled E11.65 Glycemic state: with hyperglycemia Hyperthyroidism E05.90
[2022-06-15] MEDS: fenofibrate 145 mg Tablet PO (09:53)
[2022-06-15] MEDS: aspirin 81 mg EC Tablet PO (09:53)
[2022-06-15] MEDS: methIMAzole 5 MG Tablet PO (09:54)
[2022-06-15] MEDS: isosorbide mononitrate ER 60 mg Tablet PO (09:54)
[2022-06-15] MEDS: venlafaxine ER (24HR) 150 mg Capsule PO (09:54)
[2022-06-15] MEDS: hyDRALAzine 50 mg Tablet PO ×2 (09:54→15:45)
[2022-06-15] MEDS: clopidogrel 75 mg Tablet PO (09:54)
[2022-06-15] MEDS: amlodipine 10 mg Tablet PO (09:54)
[2022-06-15] MEDS: pantoprazole DR 40 mg Tablet PO (09:55)
[2022-06-15] MEDS: atorvastatin 40 mg Tablet PO (09:55)
[2022-06-15] MEDS: heparin 5,000 unit/mL INJ 1 mL 5000 UNIT SUBCUT (09:55)
[2022-06-15 11:21] LABS: Glucose Point of Care 56 mg/dL (70-110)
--- NOTE | 2022-06-15 12:37 | PC.SOCIAL ---
IMM update IMM updated with patient. Verbalized an understanding. Copy Pg 2 provided. Initialled, dated, timed, and placed in chart.
[2022-06-15] MEDS: FUROsemide 20 mg Tablet PO (12:48)
--- NOTE | 2022-06-15 13:08 | P.DS_ITS ---
Discharge Providers Date of Admission: 06/10/22 01:35 Date of Discharge: June 15, 2022 Attending Provider at Admission: Jackie Oliver MD Attending Provider at Discharge: Smiley Hanson MD Primary Care Provider: Joceylne Kirby Diagnoses at Discharge Discharge Diagnosis (1) Acute exacerbation of CHF (congestive heart failure): Status: Acute (2) Acute respiratory failure with hypoxia: Status: Acute (3) Chronic kidney disease due to diabetes mellitus: Status: Acute (4) HTN (hypertension): Status: Acute (5) Coronary artery disease due to type 2 diabetes mellitus: Status: Acute (6) Diabetes type 2, uncontrolled: Status: Acute Qualifiers: Glycemic state: with hyperglycemia Qualified Code(s): E11.65 - Type 2 diabetes mellitus with hyperglycemia (7) Hyperthyroidism: Status: Acute Reason for Visit Reason for Visit: SOB/CP Hospital Course Hospital Course Romi Yuan is a 71 year old female with past medical history of coronary artery disease status post CABG x2 years ago, chronic kidney disease, chronic congestive heart failure, hypertension, diabetes type 2, hypothyroidism, Graves' disease presented to the hospital with complaint of dyspnea on exertion?.. She was diagnosed with COVID-19 pneumonia, NSTEMI. Cardiology was consulted for coronary angiogram when echo showed significant wall motion abnormality. There was plan for angiogram however this was delayed because of worsening of creatinine. Requested records from [facility] it seems like her baseline creatinine is around 1.7-2. She was kept in the hospital for about 5 days in anticipation that her creatinine will improve with IV diuresis for systolic CHF exacerbation. She finished ACS protocol, remained chest pain-free and hemodynamically stable. Her hypoxia worsened because of flash pulm edema required IV diuresis and better control of blood pressure. We were successful weaning her off from nasal cannula to room air. However at baseline patient uses 2 L of oxygen. Patient remained chest pain-free throughout hospitalization. EF is 35 to 40% severe hypokinesia inferior inferior lateral wall grade 1 diastolic function. -2 L fluid balance. Multiple discussions took place because of her chronic kidney disease and indication for the angiogram, patient had decided to follow-up with her c ardiologist back in [place] for an angiogram, she is stating that she would like to go home because she is chest pain-free and would like to take few weeks of recovery, she is agreeable to check her BMP within a week follow-up with Dr. Neumann as a new patient and then go for the angiogram if creatinine is improving. She does not want to go for an angiogram at this point. Creatinine at the time of discharge 2.0 Patient is on room air doing well She will get aspirin, Plavix, atorvastatin, Imdur, metoprolol succinate Losartan/SKY inhibitor on hold Physical Exam Narrative: Clinical signs of fluid overload proved significantly Bilateral breath sounds with mild rhonchi wheezing and crackles improved Currently on room air Awake and alert S1, S2 Hemodynamically stable Awake and alert nonfocal neuro exam Sitting at the bedside eating breakfast Urinary Catheter Management: Munson: Cath Placed During This Visit: yes Reason for Continuing Indwelling Catheter: Other Urinary Catheter Date of Insertion: 06/10/22 Urinary Catheter Time of Insertion: 05:32 Discharge Data Studies Completed and Pending Completed Studies During Hospitalization Category Date Time Status XR chest 1V portable [id number] Stat Exams 06/09/22 22:12 Completed XR chest 1V portable [id number] Stat Exams 06/11/22 05:02 Completed XR chest 1V portable [id number] Stat Exams 06/12/22 08:05 Completed CV. echo complete* [id number] Urgent Ultrasound 06/10/22 03:13 Completed Pending at discharge Category Date Time Status Sestamibi Stress Test Request Routine Exams 06/10/22 04:14 Stop Req Radiology Impressions Chest X-Ray 06/12/22 08:05 Impression: No change in hyperinflation, diffuse interstitial opacities, cardiomegaly and atherosclerosis. Laboratory Results WBC 9.2 10^3/uL (4.0-10.0) 06/15/22 03:40 RBC 3.79 10^6/uL (4.1-5.3) L 06/15/22 03:40 Hgb 11.5 g/dL (11.5-15.3) 06/15/22 03:40 Hct 36.5 % (37.0-47.0) L 06/15/22 03:40 MCV 96.3 fl (81-99) 06/15/22 03:40 MCH 30.3 pg (28.0-34.0) 06/15/22 03:40 MCHC 31.5 g/dL (30.0-36.0) 06/15/22 03:40 RDW 14.0 % (12.1-15.1) 06/15/22 03:40 Plt Count 279 10^3/cmm (130-400) 06/15/22 03:40 MPV 10.7 fL (7.4-10.4) H 06/15/22 03:40 Neut % (Auto) 63.5 % 06/15/22 03:40 Lymph % (Auto) 29.4 % 06/15/22 03:40 Miner % (Auto) 6.1 % 06/15/22 03:40 Eos % (Auto) 0.8 % 06/15/22 03:40 Baso % (Auto) 0.0 % 06/15/22 03:40 Neut # (Auto) 5.82 10^3/uL (1.8-7.7) 06/15/22 03:40 Lymph # (Auto) 2.7 10^3/uL (0.8-4.8) 06/15/22 03:40 Miner # (Auto) 0.6 10^3/uL (0.2-0.9) 06/15/22 03:40 Eos # (Auto) 0.1 10^3/uL (0.0-0.8) 06/15/22 03:40 Baso # (Auto) 0.0 10^3/uL (0.0-0.1) 06/15/22 03:40 Nucleated RBC % (auto) 0 % 06/15/22 03:40 Nucleated RBCs # 0.0 /100WBC 06/15/22 03:40 PT 13.80 SECONDS (12.1-14.9) 06/09/22 21:43 INR 1.03 (0.8-1.2) 06/09/22 21:43 D-Dimer 0.79 ug/mIFEU (0-0.59) H 06/13/22 10:31 Specimen Type Arterial 06/11/22 04:40 Sample Site Radial, right 06/11/22 04:40 ABG pH 7.32 (7.35-7.45) L 06/11/22 04:40 ABG pCO2 44.1 mmHg (35-45) 06/11/22 04:40 ABG pO2 88.1 mmHg (80.0-100.0) 06/11/22 04:40 ABG HCO3 22.8 mmol/L (22-26) 06/11/22 04:40 ABG O2 Saturation 96.9 06/11/22 04:40 ABG Base Excess -3.3 mmol/L (-2.0-2.0) L 06/11/22 04:40 Rene Test Pos 06/11/22 04:40 A-a O2 Gradient 74.0 mmHg (5-10) H 06/11/22 04:40 Hematocrit 41.7 % (37-47) 06/11/22 04:40 Hgb O2 Saturation 95.0 % (95-100) 06/11/22 04:40 Carboxyhemoglobin 1.2 %THgb (0.4-20.1) 06/11/22 04:40 Methemoglobin 0.7 % (0.4-1.5) 06/11/22 04:40 Total Hemoglobin 13.6 g/dL (12-16) 06/11/22 04:40 Sodium 142.0 mmol/L (131-143) 06/11/22 04:40 Potassium 3.7 mmol/L (3.5-5.0) 06/11/22 04:40 Glucose 225.0 mg/dL (70-115) H 06/11/22 04:40 Ionized Calcium 1.3 mmol/L (1.1-1.4) 06/11/22 04:40 O2 Delivery Device Nrb 06/11/22 04:40 FiO2 100.0 % 06/11/22 04:40 Fish And Wildlife Biologist ID Droch 06/11/22 04:40 Sodium 141 mmol/L (136-145) 06/15/22 03:40 Potassium 4.5 mmol/L (3.5-5.1) 06/15/22 03:40 Chloride 107 mmol/L (98-107) 06/15/22 03:40 Carbon Dioxide 24 mmol/L (22-29) 06/15/22 03:40 Anion Gap 14.5 (5-19) 06/15/22 03:40 BUN 69 mg/dL (8-23) H 06/15/22 03:40 Creatinine 2.0 mg/dL (0.5-0.9) H 06/15/22 03:40 GFR Calculation Not Reportable 06/15/22 03:40 Glucose 53 mg/dL (65-115) L 06/15/22 03:40 POC Glucose 56 mg/dL (70-110) L 06/15/22 11:04 Estimat Average Glucose 160 06/10/22 04:40 Hemoglobin A1c 7.2 % (4.0-6.0) H 06/10/22 04:40 Calculated Osmolality 310 mOsm/kg (285-295) H 06/15/22 03:40 Lactic Acid 1.3 mmol/L (0.5-2.2) 06/10/22 04:40 Calcium 9.1 mg/dL (8.5-10.5) 06/15/22 03:40 Total Bilirubin 0.2 mg/dL (0.15-1.2) 06/11/22 03:44 AST 26 U/L (0-32) 06/11/22 03:44 ALT 11 U/L (0-33) 06/11/22 03:44 Alkaline Phosphatase 81 U/L (35-105) 06/11/22 03:44 Troponin T Baseline 67 ng/L (0-10) H 06/09/22 21:43 Troponin T 120 Minute 223.5 ng/L (0-10) H 06/10/22 00:15 Delta Troponin T 156.5 ABS# (0-10) H* 06/10/22 00:15 Troponin T Hi Sens 6Hr 737.0 ng/L (0-10) H 06/10/22 04:40 Troponin T Hi Sens 6Hr Delta 670.0 ng/L (0-12) H* 06/10/22 04:40 NT-Pro-B Natriuret Pep 84741 pg/mL (0-125) H 06/12/22 03:32 Total Protein 6.4 g/dL (6.6-8.7) L 06/11/22 03:44 Albumin 3.2 g/dL (3.5-5.2) L 06/11/22 03:44 Globulin 3.2 g/dL (1.3-4.6) 06/11/22 03:44 Triglycerides 101 mg/dL (0-150) 06/10/22 04:40 Cholesterol 194 mg/dL (0-200) 06/10/22 04:40 LDL Cholesterol, Calc 109 mg/dL (50-129) 06/10/22 04:40 HDL Cholesterol 65 mg/dL (60-100) 06/10/22 04:40 LDL/HDL Ratio 1.68 RATIO (0.00-3.22) 06/10/22 04:40 Cholesterol/HDL Ratio 2.98 mg/dL (0.0-4.40) 06/10/22 04:40 Lipase 29 U/L (13-60) 06/09/22 21:43 Procalcitonin 1.44 ng/mL (0-0.5) H 06/12/22 03:32 TSH 2.19 uIU/mL (0.27-4.20) 06/10/22 04:40 Influenza Type A Ag negative (Negative) 06/09/22 23:58 Influenza Type B Ag negative (Negative) 06/09/22 23:58 SARS-CoV-2 Ag (Rapid) positive (Negative) 06/09/22 23:58 Vitals Last Vital Signs Temp 97.8 F 06/15/22 08:00 Pulse 95 06/15/22 12:58 Resp 16 06/15/22 12:58 BP 118/80 06/15/22 08:00 Pulse Ox 97 06/15/22 12:58 O2 Del Method 06/15/22 12:58 O2 Flow Rate 2 06/14/22 07:36 FiO2 30 06/15/22 04:00 Discharge Plan Discharge Patient Disposition: Home Condition: Stable Prescriptions: New metoprolol succinate [Toprol XL] 25 mg tablet extended release 24 hr 25 mg PO DAILY Qty: 30 3RF atorvastatin 40 mg Tablet 40 mg PO DAILY Qty: 60 0RF potassium chloride 10 mEq tablet extended release 10 meq PO DAILY Qty: 30 0RF Rx Instructions: Potassium only with Lasix Continued Levemir U-100 Insulin 100 unit/mL solution 45 unit SUBCUT BEDTIME Anoro Ellipta 62.5-25 mcg/actuation blister with device 1 inh INHALATION DAILY isosorbide mononitrate 60 mg tablet extended release 24 hr 60 mg PO BID venlafaxine [Effexor XR] 150 mg capsule,extended release 24hr 150 mg PO DAILY tizanidine [Zanaflex] 4 mg capsule 4 mg PO DAILY PRN (Reason: MUSCLE SPASMS) insulin aspart U-100 [Novolog U-100 Insulin aspart] 100 unit/mL solution 6 unit SUBCUT QID Rx Instructions: PT STATES SHE TAKES 6 UNITS UP TO 4 TIMES PER DAY. clindamycin phosphate 1 % lotion 1 applic TOPICAL DAILY Qty: 60 3RF Rx Instructions: Apply 1-2 times daily to face cholecalciferol (vitamin D3) 125 mcg (5,000 unit) capsule 125 mcg PO Q7D amlodipine 10 mg tablet 10 mg PO DAILY Qty: 90 3RF methimazole 5 mg tablet 5 mg PO DAILY Qty: 30 3RF (DME) Accu-Chek Ana M Plus test strp Strip See Rx Instructions .ROUTE .MEDSUPPLY Qty: 120 3RF Rx Instructions: check blood glucose four times a day hydrocodone-acetaminophen 5-325 mg tablet 1 tab PO Q6H PRN (Reason: pain) Qty: 20 0RF docusate sodium [Colace] 100 mg capsule 100 mg PO BID Qty: 30 0RF omeprazole 40 mg capsule,delayed release(DR/EC) See Rx Instructions .ROUTE .COMPLEX Rx Instructions: na nitroglycerin 0.4 mg tablet, sublingual 0.4 mg sublingual PRN PRN (Reason: CHEST PAINS) albuterol sulfate [Ventolin HFA] 90 mcg/actuation HFA aerosol inhaler See Rx Instructions .ROUTE .COMPLEX Rx Instructions: inhaled USE DIRECTED - aspirin [Adult Aspirin Regimen] 81 mg tablet,delayed release (DR/EC) 81 mg PO DAILY Qty: 60 2RF clopidogrel [Plavix] 75 mg tablet 75 mg PO DAILY Qty: 60 0RF Changed furosemide [Lasix] 20 mg tablet 20 mg PO DAILY PRN (Reason: swelling) Qty: 60 0RF Discontinued fenofibrate nanocrystallized [Tricor] 145 mg tablet 145 mg PO DAILY rosuvastatin [Crestor] 40 mg tablet 40 mg PO DAILY losartan 50 mg tablet 50 mg PO BID Centrum Silver Women 8 mg iron-400 mcg-300 mcg Tablet 1 tab PO DAILY Discharge Orders: Discharge Order (Routine); Ordered 06/15/22 Ordered By: Smiley Hanson Other Ambulatory Orders: Basic Metabolic Panel (Routine) Timeframe: 1 Week Facility: [facility] - Location: Lab - Main Lab Ordered By: Smiley Hanson Referrals: Erich Neumann MD [Referring] - 1 week (The [facility] [facility] will be calling you to set up a follow up appointment. Information they need has been faxed to them on 06-15-22. Please call the Office at [phone] if you have any questions or concerns. Thank you.) Tristin Goldstein M.D [Physician] - 6 Weeks Jocelyne Kirby PA [Primary Care Provider] - 06/25/22 9:30 am Discharge Diet: Cardiac Discharge Activity: Increase activity as tolerated Patient Instructions: Potassium Chloride (By mouth) (K-Dur, K-Ivette, K-Tab, Pernell Mur), Atorvastatin (By mouth) (Lipitor), Opioid Safety Discharge Attestations Time Spent in Discharge Care*: less than 30 min Status at Discharge: Cognitive status at discharge: cognitively intact , Behavioral status at discharge: cooperative , Quality Metrics Clinical Quality Measures [ No reported AMI, CVA or VTE this stay] Coding Level of Care Code Acute Chg FW DC note Diagnoses Acute exacerbation of CHF (congestive heart failure) I50.9 Acute respiratory failure with hypoxia J96.01 Chronic kidney disease due to diabetes mellitus E11.22 HTN (hypertension) I10 Coronary artery disease due to type 2 diabetes mellitus E11.59; I25.10 Diabetes type 2, uncontrolled E11.65 Glycemic state: with hyperglycemia Hyperthyroidism E05.90
--- NOTE | 2022-06-15 16:42 | PC.NURSE ---
Patent education provided by [facility]. Patient medications and follow up appointments addressed in detail. Patient and family member had no questions at time of discharge. 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
== END 2022-06-15 16:05 | disposition home or self-care (01) | DRG 280 ==
LOC: ER 23:35 → MEDSURG 06-10 00:25 → CSU 06-10 01:18 → MEDSURG 06-10 06:34
PROVIDERS: Internal Medicine; Admitting Provider Internal Medicine; Emergency Provider Emergency Medicine; PCP Physician Assistant; Visit Provider Internal Medicine
DX: I21.4 Non-ST elevation (NSTEMI) myocardial infarction (principal); I50.23 Acute on chronic systolic (congestive) heart failure; U07.1 COVID-19; J12.82 Pneumonia due to coronavirus disease 2019; J96.01 Acute respiratory failure with hypoxia; I13.0 Hypertensive heart and chronic kidney disease with heart failure and stage 1 through stage 4 chronic kidney disease, or unspecified chronic kidney disease; E11.22 Type 2 diabetes mellitus with diabetic chronic kidney disease; N18.9 Chronic kidney disease, unspecified; E11.59 Type 2 diabetes mellitus with other circulatory complications; I25.10 Atherosclerotic heart disease of native coronary artery without angina pectoris; E11.65 Type 2 diabetes mellitus with hyperglycemia; F32.A Depression, unspecified; J44.9 Chronic obstructive pulmonary disease, unspecified; E78.5 Hyperlipidemia, unspecified; I25.2 Old myocardial infarction; E11.51 Type 2 diabetes mellitus with diabetic peripheral angiopathy without gangrene; I16.0 Hypertensive urgency; F41.0 Panic disorder [episodic paroxysmal anxiety]; E05.90 Thyrotoxicosis, unspecified without thyrotoxic crisis or storm; Z79.85 Long-term (current) use of injectable non-insulin antidiabetic drugs; Z95.5 Presence of coronary angioplasty implant and graft; Z79.82 Long term (current) use of aspirin; Z86.73 Personal history of transient ischemic attack (TIA), and cerebral infarction without residual deficits; Z87.891 Personal history of nicotine dependence; Z95.1 Presence of aortocoronary bypass graft
CPT/HCPCS: 36415; 36416; 36600; 51702; 71045; 80048; 80051; 80053; 80061; 80069; 82330; 82805; 82962; 83036; 83605; 83690; 83880; 84145; 84443; 84484; 85025; 85378; 85610; 85730; 87040; 87426; 87804; 93005; 93306; 94640; 94660; 94664; 96365; 96372; 96374; 96375; 97161; 97165; 97530; 99285; C9113; J0248; J0360; J0456; J1644; J1650; J1815; J1940; J2920; J2930; J3480; J3490; J7030; J7050; J7120; J7613; J7626

== ENCOUNTER 2022-06-18 13:53 | Inpatient (IN) | payer MEDICARE, MEDICAID, SELFPAY ==
[2022-06-18] VITALS (60 sets, daily range): BP systolic 145–199; BP diastolic 68–117; PULSE 83–118; RESP 17–29; TEMP 36.6; O2SAT 90–97
--- NOTE | 2022-06-18 14:40 | XRR_ITS ---
PROCEDURE INFORMATION: Exam: XR Chest Exam date and time: 06/18/2022 2:45 PM Age: 71 years old Clinical indication: Shortness of breath TECHNIQUE: Imaging protocol: Radiologic exam of the chest. Views: 1 view. COMPARISON: CR XR chest 1V portable [id number] 06/12/2022 8:23 AM FINDINGS: Lungs: There is right lower lobe atelectasis. This finding was not present on prior exam. The lungs are otherwise clear No consolidation. Pleural spaces: Unremarkable. No pleural effusion. No pneumothorax. Heart/Mediastinum: Unremarkable. No cardiomegaly. Bones/joints: Metallic sternotomy wires are present. XR/XR chest 1V portable [id number] IMPRESSION: 1. Right lower lobe atelectasis. 2. Metallic sternotomy wires are present. 3. Otherwise negative examination
--- NOTE | 2022-06-18 14:46 | ECG_ITS ---
[facility] Test Date: 2022-06-18 Pat Name: Romi Yuan Department: Room: Gender: Female Landing Scaler: : 1950 Requested By: Pennie Delgado Order Number: [id number] Tessa MD: Ledy Pelayo M.D. Measurements Intervals [place] Rate: 93 P: 67 NC: 160 QRS: -9 QRSD: 108 T: 89 QT: 371 QTc: 464 Interpretive Statements SINUS RHYTHM WITH OCCASIONAL VENTRICULAR PREMATURE COMPLEXES POSSIBLE LEFT ATRIAL ENLARGEMENT [-0.1mV P-WAVE IN V1/V2] INDETERMINATE AXIS Compared to ECG 06/10/2022 04:24:46 Indeterminate axis now present Myocardial infarct finding no longer present Electronically Signed On 06-18-2022 20:44:17 ELECTRICAL AND RADIO MOCK UP MECHANIC by Ledy Pelayo M.D. [id number]
[2022-06-18 16:30] LABS: Basophils % 0.2 %; Eosinophils # 0.2 10^3/uL (0.0-0.8); Eosinophils % 1.4 %; Hematocrit 40.7 % (37.0-47.0); Hemoglobin 13.3 g/dL (11.5-15.3); Lymphocytes # 1.9 10^3/uL (0.8-4.8); Lymphocytes % 14.8 %; Mean Corpuscular HGB Conc 32.7 g/dL (30.0-36.0); Mean Corpuscular Hemoglobin 30.2 pg (28.0-34.0); Mean Corpuscular Volume 92.5 fl (81-99); Mean Platelet Volume 10.5 fL (7.4-10.4); Monocytes # 0.8 10^3/uL (0.2-0.9); Monocytes % 5.9 %; Neutrophils # 10.08 10^3/uL (1.8-7.7); Neutrophils % 77.3 %; Nucleated Red Blood Cells % 0 %; Platelet Count 349 10^3/cmm (130-400); Red Cell Distribution Width 13.4 % (12.1-15.1)
--- NOTE | 2022-06-18 16:46 | ECG_ITS ---
[facility] Test Date: 2022-06-18 Pat Name: Romi Yuan Department: Room: Gender: Female Acid Crane Operator: : 1950 Requested By: Pennie Delgado Order Number: [id number] Tessa MD: Ledy Pelayo M.D. Measurements Intervals [place] Rate: 98 P: 72 RI: 152 QRS: -9 QRSD: 110 T: 82 QT: 347 QTc: 445 Interpretive Statements SINUS RHYTHM POSSIBLE LEFT ATRIAL ENLARGEMENT [-0.1mV P-WAVE IN V1/V2] NONSPECIFIC T-WAVE ABNORMALITY Compared to ECG 06/18/2022 16:12:52 T-wave abnormality now present Ventricular premature complex(es) no longer present Indeterminate axis no longer present Electronically Signed On 06-18-2022 20:51:12 COUNT TEAM CLERK by Ledy Pelayo M.D. [id number]
[2022-06-18 17:04] LABS: Troponin(5th) Baseline 592 ng/L (0-10)
--- NOTE | 2022-06-18 17:09 | ED_ITS ---
HPI - SOB/Dyspnea General: Chief Complaint: Shortness of Breath/Dyspnea Stated Complaint: Low O2 Time Seen by Provider: 06/18/22 16:51 Source: patient and family Limitations: no limitations History of Present Illness: HPI Narrative: See nursing assessment. Patient with complaints of increasing shortness of breath today. Patient recently diagnosed with COVID-pneumonia, non-STEMI, chronic kidney disease. Patient states they were unable to do heart cath due to her kidney function. Patient normally wears supplemental oxygen at home 1 to 2 L. According to cousin her oxygen saturation was down to 88% on supplemental oxygen at home when she exerted herself. She states she gets chest pressure with walking. She also has dyspnea on exertion. She states when she rests the shortness of breath and chest pain improved. She denies any chest pain at this time. She denies any fever. She has an occasional rare nonproductive cough. She states she did have a productive cough of clear sputum while she was in the hospital. She states she was in the hospital for several days and was released from the hospital Wednesday evening. Associated symptoms: Reports chest pain; Deny abdominal pain, fever(s), nausea, palpitations or vomiting Review of Systems Const: Denies: fever(s) or chills Eyes: Denies: change in vision ENMT: Denies: throat pain Card: Reports: chest pain; Denies: palpitations or edema Resp: Reports: dyspnea and non-productive cough; Denies: wheezing GI: Denies: abdominal pain, nausea or vomiting : Denies: flank pain Musc: Denies: neck pain or back pain Skin/Breast: Denies: rash or pruritus Neuro: Denies: headache(s) or numbness in extremities Psych: Denies: anxiety Alonzo/Lymph: Denies: enlarged lymph nodes PFS ED PFSH: Medical History Acute exacerbation of CHF (congestive heart failure) Acute respiratory failure with hypoxia Anxiety ASHD (arteriosclerotic heart disease) Carotid arterial disease Chronic kidney disease due to diabetes mellitus Colon polyps COPD (chronic obstructive pulmonary disease) Coronary artery disease due to type 2 diabetes mellitus Diabetes mellitus Diabetes type 2, uncontrolled Dyslipidemia Graves disease History of CVA (cerebrovascular accident) History of myocardial infarction History of skin cancer HTN (hypertension) Hyperthyroidism NSTEMI (non-ST elevated myocardial infarction) PAD (peripheral artery disease) Pneumonia due to COVID-19 virus Surgical History History of endovascular stent graft for abdominal aortic aneurysm (AAA) Hx of local excision of skin lesion (09/16/20) Left forearm x2 S/P CABG (coronary artery bypass graft) S/P cardiac catheterization S/P cataract surgery S/P cholecystectomy S/P hysterectomy with oophorectomy S/P skin and subcutaneous tissue surgery Status post colonoscopy (09/16/20) Family History Sister Mark's disease Sister No problems noted. Mother No problems noted. Other Anesthesia complication Social History Smoking and tobacco status: former smoker Alcohol intake: current Alcohol intake frequency: holidays/special occasions only Physical Exam Const: COMMON NORMALS: no acute distress, patient oriented x3, no limitations and well nourished GENERAL APPEARANCE: cooperative HENMT: COMMON NORMALS: normocephalic and atraumatic HEAD & SCALP: normocephalic and atraumatic FACE & SINUS: normal facial exam Eye: COMMON NORMALS: EOMs intact bilaterally Neck/C-Spine: COMMON NORMALS: full ROM, no lymphadenopathy, supple and no meningeal signs GENERAL: Yes normal visual inspection Lymph: LYMPHATIC: no lymphadenopathy noted Chest: COMMONS NORMALS: normal inspection of the chest and normal palpation of entire chest wall CHEST: No Ecchymosis present and No rash Resp: COMMON NORMALS: normal respiratory effort and No retractions EFFORT & INSPECTION: No respiratory distress OTHER: Peripheral pulses 2 out of 4 bilaterally. Patient has crackles in the right lower lobe. Cardio: COMMON NORMALS: regular rate, regular rhythm and Peripheral pulses 2+ throughout JUGULAR VENOUS DISTENTION: no JVD RATE: regular rate RHYTHM: regular rhythm PERIPHERAL PULSES: Peripheral pulses 2+ throughout GI: COMMON NORMALS: Normal to inspection, nondistended, normoactive bowel sounds present and non-tender : COMMON NORMALS: Yes no CVA tenderness BLADDER/KIDNEY EXAM: Yes no CVA tenderness Back/Pelvis: COMMON NORMALS: no CVA tenderness Extremity: COMMON NORMALS: normal to inspection, full ROM and capillary refill normal Neuro: COMMON NORMALS: patient oriented x3, CN's II-XII intact bilaterally, no focal motor deficits and no sensory deficits noted MENINGEAL SIGNS: Yes no meningeal signs Psych: COMMON NORMALS: mental status grossly normal and Normal thought process present THOUGHT PROCESS: Normal thought process present Skin: COMMON NORMALS: no rashes or lesions noted and no wounds GENERAL SKIN EXAM: no rashes or lesions noted Course Vital Signs: Vital signs: Vital Signs Temperature 97.8 F 06/18/22 14:00 Pulse Rate 99 06/18/22 17:00 Respiratory Rate 23 H 06/18/22 17:00 Blood Pressure 164/97 06/18/22 17:00 Pulse Oximetry 94 06/18/22 17:00 Oxygen Delivery Me thod 06/18/22 14:58 MDM - SOB/Dyspnea Medical Decision Making Unstable angina, dyspnea on exertion; non-STEMI Medical Records I reviewed discharge summary from earlier this week. Patient diagnosed with COVID-pneumonia and non-STEMI. Patient also with chronic kidney disease that prevented her from having coronary heart cath. 1805: D/w with hospitalist Dr. Landry. admit to [facility]. consult cardiology. Dr. Meghan lopez and case discussed with her. Orders written. Lab Data 06/18/22 16:15 06/18/22 16:15 Labs/Radiology: Radiology Impressions Chest X-Ray 06/18/22 14:40 IMPRESSION: 1. Right lower lobe atelectasis. 2. Metallic sternotomy wires are present. 3. Otherwise negative examination Laboratory Results WBC 13.0 10^3/uL (4.0-10.0) H 06/18/22 16:15 RBC 4.40 10^6/uL (4.1-5.3) 06/18/22 16:15 Hgb 13.3 g/dL (11.5-15.3) 06/18/22 16:15 Hct 40.7 % (37.0-47.0) 06/18/22 16:15 MCV 92.5 fl (81-99) 06/18/22 16:15 MCH 30.2 pg (28.0-34.0) 06/18/22 16:15 MCHC 32.7 g/dL (30.0-36.0) 06/18/22 16:15 RDW 13.4 % (12.1-15.1) 06/18/22 16:15 Plt Count 349 10^3/cmm (130-400) 06/18/22 16:15 MPV 10.5 fL (7.4-10.4) H 06/18/22 16:15 Neut % (Auto) 77.3 % 06/18/22 16:15 Lymph % (Auto) 14.8 % 06/18/22 16:15 [place] % (Auto) 5.9 % 06/18/22 16:15 Eos % (Auto) 1.4 % 06/18/22 16:15 Baso % (Auto) 0.2 % 06/18/22 16:15 Neut # (Auto) 10.08 10^3/uL (1.8-7.7) H 06/18/22 16:15 Lymph # (Auto) 1.9 10^3/uL (0.8-4.8) 06/18/22 16:15 [place] # (Auto) 0.8 10^3/uL (0.2-0.9) 06/18/22 16:15 Eos # (Auto) 0.2 10^3/uL (0.0-0.8) 06/18/22 16:15 Baso # (Auto) 0.0 10^3/uL (0.0-0.1) 06/18/22 16:15 Nucleated RBC % (auto) 0 % 06/18/22 16:15 Nucleated RBCs # 0.0 /100WBC 06/18/22 16:15 Sodium 139 mmol/L (136-145) 06/18/22 16:15 Potassium 4.6 mmol/L (3.5-5.1) 06/18/22 16:15 Chloride 104 mmol/L (98-107) 06/18/22 16:15 Carbon Dioxide 24 mmol/L (22-29) 06/18/22 16:15 Anion Gap 15.6 (5-19) 06/18/22 16:15 BUN 47 mg/dL (8-23) H 06/18/22 16:15 Creatinine 2.0 mg/dL (0.5-0.9) H 06/18/22 16:15 GFR Calculation Not Reportable 06/18/22 16:15 Glucose 229 mg/dL (65-115) H 06/18/22 16:15 Calculated Osmolality 308 mOsm/kg (285-295) H 06/18/22 16:15 Lactic Acid 0.7 mmol/L (0.5-2.2) 06/18/22 17:07 Calcium 9.7 mg/dL (8.5-10.5) 06/18/22 16:15 Total Bilirubin 0.3 mg/dL (0.15-1.2) 06/18/22 16:15 AST 21 U/L (0-32) 06/18/22 16:15 ALT 18 U/L (0-33) 06/18/22 16:15 Alkaline Phosphatase 84 U/L (35-105) 06/18/22 16:15 Troponin T Baseline 592 ng/L (0-10) H* 06/18/22 16:15 Troponin T 120 Minute 597.4 ng/L (0-10) H 06/18/22 17:07 Delta Troponin T 5.4 ABS# (0-10) 06/18/22 17:07 NT-Pro-B Natriuret Pep 89886 pg/mL (0-125) H 06/18/22 16:15 Total Protein 6.7 g/dL (6.6-8.7) 06/18/22 16:15 Albumin 3.2 g/dL (3.5-5.2) L 06/18/22 16:15 Globulin 3.5 g/dL (1.3-4.6) 06/18/22 16:15 Imaging Data CXR: My impression: Mild atelectasis in both lower lobes. Prominently in the right lower lobe. Moderate cardiomegaly Radiologist's impression: PROCEDURE INFORMATION: Exam: XR Chest Exam date and time: 06/18/2022 2:45 PM Age: 71 years old Clinical indication: Shortness of breath TECHNIQUE: Imaging protocol: Radiologic exam of the chest. Views: 1 view. COMPARISON: CR XR chest 1V portable [id number] 06/12/2022 8:23 AM FINDINGS: Lungs:? There is right lower lobe atelectasis.? This finding was not present on prior exam.? The lungs are otherwise clear No consolidation. Pleural spaces: Unremarkable. No pleural effusion. No pneumothorax. Heart/Mediastinum: Unremarkable. No cardiomegaly. Bones/joints:? Metallic sternotomy wires are present. XR/XR chest 1V portable [id number] IMPRESSION: 1. Right lower lobe atelectasis. 2. Metallic sternotomy wires are present. 3. Otherwise negative examination ? Dictated By: Edilberto Reyes Signed By: Edilberto Reyes Signed Date/Time: 06/18/22 1523 EKG Data EKG 1: I personally reviewed and interpreted this EKG as follows: EKG Interpretation Date: 06/18/22 EKG interpretation time: 17:10 Interpretation: Normal sinus rhythm with heart rate of 93. Normal MN interval,, normal QT interval, normal axis. LVH, normal ST segment. 1 PAC, 1 PVC. Normal P waves, normal T waves. Computer Generated Interpretation: Ordering Provider/Ordering MD: Pennie Delgado Date of Service: 06/18/22 Procedure(s): ECG 12 lead EKG Accession Number(s): [id number] Report Number: [id number] ? [facility] ? Test Date:? ? 2022-06-18 Pat Name: ? ? Romi Yuan ? Department: ? Patient ID: ? [id number] ? Room: ? Gender: ? ? ? Female ? 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 :? 1950 ? Requested By: Pennie Delgado Order Number: [id number]? Reading MD: ? Measurements Intervals? [place]? Rate: ? 93 ? P:? 67 MN: ? 160? QRS:? -9 QRSD: ? 108? T:? 89 QT: ? 371? QTc:? 464? Interpretive Statements SINUS RHYTHM WITH OCCASIONAL VENTRICULAR PREMATURE COMPLEXES POSSIBLE LEFT ATRIAL ENLARGEMENT? [-0.1mV P-WAVE IN V1/V2] INDETERMINATE AXIS https: [email or web address] Dictated By: INTERFACE,USER Signed By: Signed Date/Time: DD/ 1612 EKG 2: I personally reviewed and interpreted this EKG as follows: EKG Interpretation Date: 06/18/22 EKG interpretation time: 17:25 Prior EKG tracings: available for review (EKG relatively unchanged from previous EKG) Interpretation: Normal sinus rhythm heart rate 98. Normal axis. LVH. Normal ST segment. Normal P waves, normal QT interval. Normal T waves. No evidence of ischemia. 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
[2022-06-18 17:10] LABS: Alanine Aminotransferase 18 U/L (0-33); Albumin Level 3.2 g/dL (3.5-5.2); Alkaline Phosphatase 84 U/L (35-105); Anion Gap 15.6 (5-19); Aspartate Amino Transferase 21 U/L (0-32); Blood Urea Nitrogen 47 mg/dL (8-23); Calcium 9.7 mg/dL (8.5-10.5); Carbon Dioxide 24 mmol/L (22-29); Chloride 104 mmol/L (98-107); Globulin 3.5 g/dL (1.3-4.6); Glucose 229 mg/dL (65-115); Osmolality Calculated 308 mOsm/kg (285-295); Potassium 4.6 mmol/L (3.5-5.1); Sodium 139 mmol/L (136-145); Total Bilirubin 0.3 mg/dL (0.15-1.2); Total Protein 6.7 g/dL (6.6-8.7)
[2022-06-18 17:44] LABS: Lactic Sepsis W/Reflex 0.7 mmol/L (0.5-2.2)
[2022-06-18 17:58] LABS: Troponin 5 2HR 597.4 ng/L (0-10); Troponin 5 2HR Delta 5.4 ABS# (0-10)
[2022-06-18] MEDS: hyDRALAzine 20 mg/mL INJ 1 mL 5 MG IVP (18:29)
[2022-06-18] MEDS: FUROsemide 10 mg/mL SDV 2mL 20 MG IVP (18:29)
--- NOTE | 2022-06-18 18:52 | P.HP_ITS ---
Providers/Chief Complaint Admitting Physician: Misa Landry MD Primary Care Provider: Jocelyne Kirby Chief Complaint: Low O2 History of Present Illness Romi Yuan is a 71 year old female with past medical history of coronary artery disease status post CABG x2 years ago, chronic kidney disease, chronic congestive heart failure, hypertension, diabetes type 2, hypothyroidism, Graves' disease recently admitted here 06/09 to 06/15 for COVID-19 pneumonia, NSTEMI.? Cardiology was consulted for coronary angiogram when echo showed significant wall motion abnormality.? There was plan for angiogram however this was delayed because of worsening of creatinine.?Baseline creatinine is around 1.7-2.? She was kept in the hospital for about 5 days in anticipation that her creatinine w ill improve with IV diuresis for systolic CHF exacerbation.? She finished ACS protocol, remained chest pain-free and hemodynamically stable.? Her hypoxia worsened because of flash pulm edema required IV diuresis and better control of blood pressure.?? Patient remained chest pain-free throughout hospitalization.? EF is 35 to 40% severe hypokinesia inferior inferior lateral wall grade 1 diastolic function. 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 She returns to the ER with c/o with complaints of increasing shortness of breath today. her oxygen saturation was down to 88% on supplemental oxygen at home when she exerted herself.? She states she gets chest pressure with walking. Her troponin today is at 592 compared to 67--> 200s at admission on June 09. BNP is elevated at 49,000, similar range on last admission. Chest x-ray shows right lower lobe atelectasis otherwise no signs of pneumonia. Lungs are clear. Review of Systems General: Reports: 10 or more systems reviewed and unremarkable except in HPI and below Const: Denies: fever(s), chills or body aches Eyes: Denies: change in vision, blurry vision or photophobia ENMT: Reports: hoarseness; Denies: throat pain, enlarged tonsils, odynophagia or nasal congestion Card: Reports: chest pain and edema; Denies: palpitations, irregular heart rhythm, swelling of feet/ankles, lightheadedness, pre-syncope, dyspnea on exertion or orthopnea Resp: Reports: dyspnea; Denies: productive cough, non-productive cough, wheezing, stridor, pain on inspiration, change in phlegm color, hemoptysis or chest congestion GI: Denies: abdominal pain, nausea, vomiting, hematemesis, coffee ground emesis, dysphagia, heartburn, diarrhea, constipation, GI cramping, change in stool character, hematochezia or melena : Denies: flank pain, difficulty voiding, dysuria, urinary frequency, urinary urgency, urinary hesitancy or hematuria Musc: Denies: neck pain, back pain, extremity pain, joint swelling, joint warmth or deformity Neuro: Denies: headache(s), numbness in extremities, weakness in extremities, sensory changes, difficulty walking, frequent falls, dizziness, vertigo, behavioral changes, Slurred speech present or seizure-like activity Psych: Denies: anxiety, depression, suicidal ideation or homicidal ideation Endo: Denies: polyuria, polydipsia, tired all the time, cold intolerance or hot flashes Alonzo/Lymph: Denies: easy bruising or easy bleeding Medications/Allergies Home Medications Medication Instructions Recorded Confirmed Last Taken Type insulin detemir U-100 100 unit/mL 45 unit SUBCUT BEDTIME 07/20/19 06/16/22 06/09/22 09:00 History subcutaneous solution (Levemir U-100 Insulin) isosorbide mononitrate 60 mg 60 mg PO BID 07/20/19 06/16/22 06/09/22 17:00 History tablet,extended release 24 hr tizanidine 4 mg capsule (Zanaflex) 4 mg PO DAILY PRN MUSCLE SPASMS 07/20/19 06/16/22 06/08/22 19:00 History umeclidinium 62.5 mcg-vilanterol 1 inh inhalation DAILY 07/20/19 06/16/22 09/16/20 History 25 mcg/actuation powdr for inhalation (Anoro Ellipta) venlafaxine 150 mg 150 mg PO DAILY 07/20/19 06/16/22 09/14/20 History capsule,extended release 24 hr (Effexor XR) albuterol sulfate 90 mcg/actuation See Rx Instructions .Route .COMPLEX 10/19/19 06/16/22 1 Week Ago History aerosol inhaler (Ventolin HFA) ~06/03/22 nitroglycerin 0.4 mg sublingual 0.4 mg sublingual PRN PRN CHEST 10/19/19 06/16/22 Unknown History tablet PAINS omeprazole 40 mg capsule,delayed See Rx Instructions .Route .COMPLEX 10/19/19 06/16/22 06/09/22 09:00 History release amlodipine 10 mg tablet 10 mg PO DAILY #90 tabs 01/16/20 06/16/22 06/09/22 09:00 Rx cholecalciferol (vitamin D3) 125 125 mcg PO Q7D 02/21/20 06/16/22 07/02/21 09:00 History mcg (5,000 unit) capsule insulin aspart U-100 100 unit/mL 6 unit SUBCUT QID 02/21/20 06/16/22 06/09/22 19:00 History subcutaneous solution (Novolog U-100 Insulin aspart) methimazole 5 mg tablet 5 mg PO DAILY #30 tabs 03/11/20 06/16/22 06/09/22 09:00 Rx clindamycin phosphate 1 % lotion 1 applic topical DAILY #60 mL 03/20/20 06/16/22 06/09/22 09:00 Rx docusate sodium 100 mg capsule 100 mg PO BID #30 caps 09/16/20 06/16/22 06/09/22 09:00 Rx (Colace) hydrocodone 5 mg-acetaminophen 325 1 tab PO Q6H PRN pain #20 tabs 09/16/20 06/16/22 06/08/22 19:00 Rx mg tablet blood sugar diagnostic (Accu-Chek #120 ea 06/23/21 06/16/22 Unknown Rx Ana M Plus test strips) aspirin 81 mg tablet,delayed 81 mg PO DAILY #60 tabs 06/15/22 06/16/22 09/08/20 Rx release (Adult Aspirin Regimen) atorvastatin 40 mg tablet 40 mg PO DAILY #60 tabs 06/15/22 06/16/22 Unknown Rx clopidogrel 75 mg tablet (Plavix) 75 mg PO DAILY #60 tabs 06/15/22 06/16/22 06/09/22 09:00 Rx furosemide 20 mg tablet (Lasix) 20 mg PO DAILY PRN swelling #60 06/15/22 06/16/22 06/09/22 09:00 Rx tabs hydralazine 25 mg tablet 25 mg PO BID #60 tabs 06/15/22 06/16/22 Unknown Rx metoprolol succinate 25 mg 25 mg PO DAILY #30 tabs 06/15/22 06/16/22 Unknown Rx tablet,extended release 24 hr (Toprol XL) potassium chloride 10 mEq 10 meq PO DAILY #30 tabs 06/15/22 06/16/22 Unknown Rx tablet,extended release Allergies Allergy/AdvReac Type Severity Reaction Status Date / Time cefuroxime [From Ceftin] Allergy ALGY-Rash Verified 10/29/20 11:57 cephalexin [From Keflex] Allergy ALGY-Rash Verified 10/29/20 11:57 hydroxyzine [From Vistaril] Allergy ALGY-Anaphy Verified 10/29/20 11:57 laxis Penicillins Allergy ALGY-Redness Verified 10/29/20 11:57 of Skin prochlorperazine Allergy ALGY-Anaphy Verified 10/29/20 11:57 [From Compazine] laxis promethazine [From Phenergan] Allergy ALGY-Anaphy Verified 10/29/20 11:57 laxis venom-honey bee Allergy ALGY-Anaphy Verified 10/29/20 11:57 laxis simvastatin [From Zocor] AdvReac ADR-Heartbu Verified 10/29/20 11:57 rn PFSH Acute PFSH: Medical History Acute exacerbation of CHF (congestive heart failure) Acute respiratory failure with hypoxia Anxiety ASHD (arteriosclerotic heart disease) Carotid arterial disease Chronic kidney disease due to diabetes mellitus Colon polyps COPD (chronic obstructive pulmonary disease) Coronary artery disease due to type 2 diabetes mellitus Diabetes mellitus Diabetes type 2, uncontrolled Dyslipidemia Graves disease History of CVA (cerebrovascular accident) History of myocardial infarction History of skin cancer HTN (hypertension) Hyperthyroidism NSTEMI (non-ST elevated myocardial infarction) PAD (peripheral artery disease) Pneumonia due to COVID-19 virus Surgical History History of endovascular stent graft for abdominal aortic aneurysm (AAA) Hx of local excision of skin lesion (09/16/20) Left forearm x2 S/P CABG (coronary artery bypass graft) S/P cardiac catheterization S/P cataract surgery S/P cholecystectomy S/P hysterectomy with oophorectomy S/P skin and subcutaneous tissue surgery Status post colonoscopy (09/16/20) Family History Sister Mark's disease Sister No problems noted. Mother No problems noted. Other Anesthesia complication Social History Smoking and tobacco status: former smoker Alcohol intake: current Alcohol intake frequency: holidays/special occasions only Vitals/I&O/Wt Last Vital Signs Temp 97.8 F 06/18/22 14:00 Pulse 100 06/18/22 18:00 Resp 22 H 06/18/22 18:00 BP 185/109 06/18/22 18:00 Pulse Ox 90 06/18/22 18:00 O2 Del Method 06/18/22 14:58 Weight last 48 hrs Weight 64.41 kg Physical Exam Narrative: General: No acute distress, AO x3 HEENT: PERRLA, pupils bilaterally equal and reactive, pallors not present Chest: Normal vesicular breath sounds, no added sounds, equal good air entry bilaterally CVS: S1-S2 regular, no murmurs, no tachycardia, no gallops, no rubs Abdomen: Soft, nontender, no organomegaly, bowel sounds present Neuro: No focal deficits, no facial deformity, AO x3, power 5/5 in all limbs Data 06/18/22 16:15 06/18/22 16:15 Micro: Microbiology 06/18/22 17:15 Blood Culture - Preliminary Blood SPECIMEN COLLECTED 06/18/22 17:07 Blood Culture - Preliminary Blood SPECIMEN COLLECTED A&P Assessment and plan (1) Non-STEMI (non-ST elevated myocardial infarction): Patient with recent HPI as above presenting today with dyspnea on exertion and recurrent chest pain after recently having had an NSTEMI which was managed conservatively. Troponins are up today to 592. At 2 hours trending up to 597. We will continue to trend. In the interim continue aspirin, Plavix. Will additionally start heparin drip. nitropatch Cardiology consult has already been called from the emergency room. 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 Recently echocardiogram was performed, would not repeat today. (2) LLOYD (dyspnea on exertion): (3) Chronic kidney disease: Qualifiers: Chronic kidney disease stage: stage 3 (moderate) Chronic kidney disease stage 3 subtype: unspecified whether 3a or 3b Qualified Code(s): N18.30 - Chronic kidney disease, stage 3 unspecified Attestations Medical Necessity Statement*: Anticipate greater than 2 midnight admission for NSTEMI, ongoing chest pain Coding Level of Care Code Acute Code for [facility] Diagnoses Non-STEMI (non-ST elevated myocardial infarction) I21.4 LLOYD (dyspnea on exertion) R06.09 Chronic kidney disease N18.30 Chronic kidney disease stage: stage 3 (moderate) Chronic kidney disease stage 3 subtype: unspecified whether 3a or 3b
--- NOTE | 2022-06-18 19:07 | PM.CONSULT ---
Providers/Reason For Consult Consulting Physician/Specialty*: Dr. Christianson, Cardiology Reason for Consult*: NSTEMI Primary Care Provider: Jocelyne Kirby History of Present Illness History of Present Illness Romi Yuan is a 71 year old female with complex cardiac history. She has a history of coronary disease and has had two previous bypass surgeries where three vessels were bypassed easch time. Her surgeries were in 1994 and in 2004. She had LOVETT to the LAD, saphenous venous graft to the diagonal branch of the left anterior descending and saphenous vein graft to the right coronary artery. She has also had multiple stents. Her last cardiac cath was at [facility] with Dr. iFore in 2019 where only patent bypass was LOVETT-LAD. SVG to RCA and SVG to LCx were occluded. Medical management was recommended. She was recently hospitalized with COVID-19 pneumonia and NSTEMI.? She also has CKD with baseline creatinine (1.7-2).? She was diuresed for systolic CHF exacerbation and because of drop in LV function from 50-55% in 2019--> 35-40% on last echo; coronary angiogram was considered but was held as patient remained stable and CP free. After discharge, she did well initially but yesterday she developed SOB and ?her oxygen saturation was down to 88% on supplemental oxygen at home when she exerted herself. She complains of some chest discomfort but only after coughing spells. Troponin T 592--> 597-->543 (increased from earlier this month but w/o much delta change). She has remained CP free overnight and feels better this morning while at rest.? Review of Systems Const: Denies: fever(s), chills, body aches or change in appetite Eyes: Denies: blurry vision or eye discomfort ENMT: Denies: throat pain or dental pain Card: Reports: chest pain Resp: Reports: dyspnea and non-productive cough GI: Denies: abdominal pain, nausea, vomiting or diarrhea : Denies: dysuria Musc: Denies: neck pain or back pain Skin/Breast: Denies: rash Neuro: Denies: headache(s) Psych: Denies: depression Alonzo/Lymph: Denies: easy bruising All/Imm: Denies: urticaria Medications/Allergies Home Medications Medication Instructions Recorded Confirmed Last Taken Type insulin detemir U-100 100 unit/mL 45 unit SUBCUT BEDTIME 07/20/19 06/16/22 06/09/22 09:00 History subcutaneous solution (Levemir U-100 Insulin) isosorbide mononitrate 60 mg 60 mg PO BID 07/20/19 06/16/22 06/09/22 17:00 History tablet,extended release 24 hr tizanidine 4 mg capsule (Zanaflex) 4 mg PO DAILY PRN MUSCLE SPASMS 07/20/19 06/16/22 06/08/22 19:00 History umeclidinium 62.5 mcg-vilanterol 1 inh inhalation DAILY 07/20/19 06/16/22 09/16/20 History 25 mcg/actuation powdr for inhalation (Anoro Ellipta) venlafaxine 150 mg 150 mg PO DAILY 07/20/19 06/16/22 09/14/20 History capsule,extended release 24 hr (Effexor XR) albuterol sulfate 90 mcg/actuation See Rx Instructions .Route .COMPLEX 10/19/19 06/16/22 1 Week Ago History aerosol inhaler (Ventolin HFA) ~06/03/22 nitroglycerin 0.4 mg sublingual 0.4 mg sublingual PRN PRN CHEST 10/19/19 06/16/22 Unknown History tablet PAINS amlodipine 10 mg tablet 10 mg PO DAILY #90 tabs 01/16/20 06/16/22 06/09/22 09:00 Rx cholecalciferol (vitamin D3) 125 125 mcg PO Q7D 02/21/20 06/16/22 07/02/21 09:00 History mcg (5,000 unit) capsule insulin aspart U-100 100 unit/mL 6 unit SUBCUT QID 02/21/20 06/16/22 06/09/22 19:00 History subcutaneous solution (Novolog U-100 Insulin aspart) methimazole 5 mg tablet 5 mg PO DAILY #30 tabs 03/11/20 06/16/22 06/09/22 09:00 Rx docusate sodium 100 mg capsule 100 mg PO BID #30 caps 09/16/20 06/16/22 06/09/22 09:00 Rx (Colace) blood sugar diagnostic (Accu-Chek #120 ea 06/23/21 06/16/22 Unknown Rx Ana M Plus test strips) aspirin 81 mg tablet,delayed 81 mg PO DAILY #60 tabs 06/15/22 06/16/22 09/08/20 Rx release (Adult Aspirin Regimen) clopidogrel 75 mg tablet (Plavix) 75 mg PO DAILY #60 tabs 06/15/22 06/16/22 06/09/22 09:00 Rx furosemide 20 mg tablet (Lasix) 20 mg PO DAILY PRN swelling #60 06/15/22 06/16/22 06/09/22 09:00 Rx tabs hydralazine 25 mg tablet 25 mg PO BID #60 tabs 06/15/22 06/16/22 Unknown Rx metoprolol succinate 25 mg 25 mg PO DAILY #30 tabs 06/15/22 06/16/22 Unknown Rx tablet,extended release 24 hr (Toprol XL) potassium chloride 10 mEq 10 meq PO DAILY #30 tabs 06/15/22 06/16/22 Unknown Rx tablet,extended release acitretin 10 mg capsule 10 mg PO DAILY 06/19/22 06/19/22 Unknown History atorvastatin 40 mg tablet 40 mg PO BEDTIME 06/19/22 06/19/22 Unknown History nystatin 100,000 unit/mL oral 100,000 unit PO DAILY 06/19/22 06/19/22 Unknown History suspension venlafaxine 75 mg capsule,extended 75 mg PO DAILY 06/19/22 06/19/22 Unknown History release 24 hr Allergies Allergy/AdvReac Type Severity Reaction Status Date / Time cefuroxime [From Ceftin] Allergy ALGY-Rash Verified 06/19/22 08:58 cephalexin [From Keflex] Allergy ALGY-Rash Verified 06/19/22 08:58 hydroxyzine [From Vistaril] Allergy ALGY-Anaphy Verified 06/19/22 08:58 laxis Penicillins Allergy ALGY-Redness Verified 06/19/22 08:58 of Skin prochlorperazine Allergy ALGY-Anaphy Verified 06/19/22 08:58 [From Compazine] laxis promethazine [From Phenergan] Allergy ALGY-Anaphy Verified 06/19/22 08:58 laxis venom-honey bee Allergy ALGY-Anaphy Verified 06/19/22 08:58 laxis simvastatin [From Zocor] AdvReac ADR-Heartbu Verified 06/19/22 08:58 rn Current Medications Acetaminophen (Acetaminophen 325 Mg Tablet) 650 mg PO Q6H PRN PRN Reason: Mild/Mod Pain Or Temp >/= 101 Last Admin: 06/19/22 09:26 Dose: 650 mg Hydrocodone Bitart/Acetaminophen (Hydrocodone-Acetaminophen 5-325 Mg Tablet) 1 tab PO Q6H PRN PRN Reason: pain Amlodipine Besylate (Amlodipine 10 Mg Tablet) 10 mg PO DAILY [facility] Last Admin: 06/19/22 09:07 Dose: 10 mg Aspirin (Aspirin 81 Mg Ec Tablet) 81 mg PO DAILY [facility] Last Admin: 06/19/22 09:07 Dose: 81 mg Atorvastatin Calcium (Atorvastatin 40 Mg Tablet) 40 mg PO DAILY [facility] Last Admin: 06/19/22 09:10 Dose: Not Given Clopidogrel Bisulfate (Clopidogrel 75 Mg Tablet) 75 mg PO DAILY [facility] Last Admin: 06/19/22 09:07 Dose: 75 mg Dextrose (Dextrose 50% Syringe 50 Ml) 25 ml IVP ONCE PRN; Protocol PRN Reason: hypoglycemia protocol Dextrose (Dextrose 50% Syringe 50 Ml) 50 ml IVP PRN PRN; Protocol PRN Reason: hypoglycemia protocol Glucagon (Glucagon 1 Mg/Ml Inj 1 Ml) 1 mg IM ONCE PRN; Protocol PRN Reason: Adult Acute Hypoglycemia Prot. Heparin Sodium (Porcine) (Heparin 5,000 Unit/Ml Inj 1 Ml) 0 unit IV PRN PRN; Protocol PRN Reason: Heparin weight-base protocol Hydralazine HCl (Hydralazine 25 Mg Tablet) 25 mg PO BID [facility] Last Admin: 06/19/22 09:07 Dose: 25 mg Heparin Sodium/Sodium Chloride (Heparin Drip) 25,000 unit in 500 mls @ 0 mls/hr IV .Q0M [facility]; Protocol Last Titration: 06/19/22 04:21 Dose: 13.97 unit/kg/hr, 18 mls/hr Dextrose (D5w) 500 mls @ 100 mls/hr IV ONCE PRN; Protocol PRN Reason: Adult Acute Hypoglycemia Prot Insulin Human Lispro (Insulin Lispro 100 Unit/1 Ml) 0 unit SUBCUT WM&BEDTIME [facility]; Protocol Last Admin: 06/19/22 09:10 Dose: 6 unit Labetalol HCl (Labetalol 5 Mg/Ml Sdv 20ml) 10 mg IVP Q6H PRN PRN Reason: HYPERTENSION Methimazole (Methimazole 5 Mg Tablet) 5 mg PO DAILY [facility] Last Admin: 06/19/22 09:07 Dose: 5 mg Metoprolol Succinate (Metoprolol Succinate Er (24 Hr) 25 Mg Tablet) 25 mg PO DAILY [facility] Last Admin: 06/19/22 09:07 Dose: 25 mg Nitroglycerin (Nitroglycerin 1 Gm/Inch Oint Pkt) 1 inch TOPICAL Q6H [facility] Last Admin: 06/19/22 06:31 Dose: 1 inch Ondansetron HCl (Ondansetron 2 Mg/Ml Sdv 2 Ml) 4 mg IVP Q6H PRN PRN Reason: NAUSEA AND VOMITING Pantoprazole Sodium (Pantoprazole Dr 40 Mg Tablet) 40 mg PO DAILY [facility] Last Admin: 06/19/22 09:07 Dose: 40 mg Venlafaxine HCl (Venlafaxine Er (24hr) 150 Mg Capsule) 150 mg PO BEDTIME [facility] Last Admin: 06/18/22 23:20 Dose: 150 mg PFSH Acute PFSH: Medical History (Updated 06/19/22 @ 09:33 by Nohemy Christianson MD) Acute exacerbation of CHF (congestive heart failure) Acute respiratory failure with hypoxia Anxiety ASHD (arteriosclerotic heart disease) Carotid arterial disease Chronic kidney disease due to diabetes mellitus Colon polyps COPD (chronic obstructive pulmonary disease) Coronary artery disease due to type 2 diabetes mellitus Diabetes mellitus Diabetes type 2, uncontrolled Dyslipidemia Graves disease History of CVA (cerebrovascular accident) History of myocardial infarction History of skin cancer HTN (hypertension) Hyperthyroidism NSTEMI (non-ST elevated myocardial infarction) PAD (peripheral artery disease) Pneumonia due to COVID-19 virus Surgical History History of endovascular stent graft for abdominal aortic aneurysm (AAA) Hx of local excision of skin lesion (09/16/20) Left forearm x2 S/P CABG (coronary artery bypass graft) S/P cardiac catheterization S/P cataract surgery S/P cholecystectomy S/P hysterectomy with oophorectomy S/P skin and subcutaneous tissue surgery Status post colonoscopy (09/16/20) Family History Sister Mrak's disease Sister No problems noted. Mother No problems noted. Other Anesthesia complication Social History Smoking and tobacco status: former smoker Alcohol intake: current Alcohol intake frequency: holidays/special occasions only Vitals/I&O/Wt Last Vital Signs Temp 97.8 F 06/18/22 14:00 Pulse 100 06/18/22 18:00 Resp 22 H 06/18/22 18:00 BP 185/109 06/18/22 18:00 Pulse Ox 90 06/18/22 18:00 O2 Del Method 06/18/22 14:58 Weight last 48 hrs Weight 142 lb Physical Exam Narrative: Gen: pleasant lady lasying in bed, NAD HEENT: No pallor or icterus, EOMI RS: CTAB/L except at b/l basal coarse rales+ CVS: S1, S2 regular, No murmur, rub or gallop heard. 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 ?Severe hypokinesis of inferior and inferolateral watters are seen.? ?Grade 1 diastolic dysfunction ?Mildly dilated left atrium ?Mild to moderate mitral regurgitation ?Mild tricuspid regurgitation ?Trace pulmonic regurgitation. ?Normal better studies are available [facility] (03/22/2019) Diagnostic Cath Status: Emergency Diagnostic Findings LM has 0% stenosis. pLAD: Severe 80% stenosis, EMILY: 3 flow. mLAD: Severe 85% stenosis, EMILY: 3 flow. pCIRC: Severe 90% stenosis, EMILY: 2 flow. mCIRC: Severe 80% stenosis, EMILY: 3 flow. pRCA to mRCA: Severe 100% stenosis, EMILY: 0 flow. Three grafts visualized. LOVETT to dLAD: patent. SVG to dCIRC: 100% stenosis, EMILY: 0 flow. SVG to dRCA: 100% stenosis, EMILY: 0 flow. Coronary angiography shows right dominance. PCI Status: Urgent PCI Indication: NSTE - ACS Conclusions There is severe coronary artery disease with three vessel disease. one graft patent, and two grafts diseased. SVG to RCA and SVG to circumflex were chronically occluded, LOVETT to LAD was patent. A&P Assessment and plan (1) Non-STEMI (non-ST elevated myocardial infarction): Creatinine slightly improved this morning. I discussed with patient option of continuing medical management and decision for LHC based on how her renal function does over the weekend and how she feels. -It is possible that even after LHC we might have to continue with medical management based on her last LHC findings. This was discussed with the patient as well -She may eat today and will continue ACS protocol for now and Plan for LHC based on clinical progression and renal function. (2) ASHD (arteriosclerotic heart disease): (3) Chronic kidney disease: continue to closely monitor creatinine Qualifiers: Chronic kidney disease stage: stage 3 (moderate) Chronic kidney disease stage 3 subtype: unspecified whether 3a or 3b Qualified Code(s): N18.30 - Chronic kidney disease, stage 3 unspecified (4) HTN (hypertension): (5) Dyslipidemia: (6) Graves disease: Plan Patient seen today via Telehealth by agreement and consent of patient. Telehealth technology used during the visit include video and audio. The patient has been advised of the potential risks and limitations of this mode of treatment (including but not limited to the absence of in-person examination) and has agreed to be treated in a remote fashion in spite of them. Any and all of the patient?s/patient?s family?s questions on this issue have been answered. Exam was conducted with the help of bedside nurse. Time spent in encounter 40 minutes with >50% time spent face to face. Coding Level of Care Code Acute Code for Chg Fwd Diagnoses Non-STEMI (non-ST elevated myocardial infarction) I21.4 ASHD (arteriosclerotic heart disease) I25.10 Chronic kidney disease N18.30 Chronic kidney disease stage: stage 3 (moderate) Chronic kidney disease stage 3 subtype: unspecified whether 3a or 3b HTN (hypertension) I10 Dyslipidemia E78.5 Graves disease E05.00
[2022-06-18 19:26] LABS: Glucose Point of Care 258 mg/dL (70-110)
--- NOTE | 2022-06-18 19:44 | PC.NURSE ---
Pt report attempted
[2022-06-18] MEDS: hyDRALAzine 25 mg Tablet PO (19:50)
[2022-06-18] MEDS: nitroglycerin 1 gm/inch oint Pkt 1 INCH TOPICAL (19:50)
[2022-06-18] MEDS: albuterol 2.5 mg/3 mL Neb INHALATION (20:56)
--- NOTE | 2022-06-18 20:58 | ECG_ITS ---
[facility] Test Date: 2022-06-18 Pat Name: Romi Yuan Department: Room: [facility] Gender: Female Disability Counselor: : 1950 Requested By: Pennie Delgado Order Number: [id number] Tessa MD: Nohemy Christianson M.D. Measurements Intervals [place]ers Rate: 106 P: 69 RI: 158 QRS: -44 QRSD: 106 T: 85 QT: 336 QTc: 447 Interpretive Statements SINUS TACHYCARDIA WITH OCCASIONAL VENTRICULAR PREMATURE COMPLEXES LEFT AXIS DEVIATION [QRS AXIS < -30] Compared to ECG 06/18/2022 17:22:55 Ventricular premature complex(es) now present Left-axis deviation now present Sinus rhythm no longer present T-wave abnormality no longer present Electronically Signed On 06-19-2022 17:05:22 IT DISASTER RECOVERY MANAGER by Nohemy Christianson M.D. [id number]
[2022-06-18 20:59] LABS: Glucose Point of Care 236 mg/dL (70-110)
[2022-06-18] MEDS: heparin drip 25,000 UNIT/500 ML PREMIX 19 UNIT IV (21:00)
[2022-06-18] MEDS: insulin lispro 100 unit/1 mL SUBCUT (21:42)
[2022-06-18] MEDS: venlafaxine ER (24HR) 150 mg Capsule PO (23:20)
[2022-06-18] MEDS: labetalol 5 mg/mL SDV 20mL 10 MG IVP (23:39)
[2022-06-18 23:48] LABS: Troponin 5 6HR 543.1 ng/L (0-10)
[2022-06-19] VITALS (83 sets, daily range): BP systolic 120–179; BP diastolic 57–115; PULSE 60–99; RESP 14–18; TEMP 36.8–36.9; O2SAT 93–99
[2022-06-19] MEDS: nitroglycerin 1 gm/inch oint Pkt 1 INCH TOPICAL ×4 (01:17→18:30)
[2022-06-19] MEDS: albuterol 2.5 mg/3 mL Neb INHALATION (03:16)
[2022-06-19 03:52] LABS: Basophils % 0.2 %; Eosinophils % 0.3 %; Hemoglobin 11.6 g/dL (11.5-15.3); Lymphocytes # 2.3 10^3/uL (0.8-4.8); Lymphocytes % 18.6 %; Mean Corpuscular HGB Conc 33.1 g/dL (30.0-36.0); Mean Corpuscular Hemoglobin 30.6 pg (28.0-34.0); Mean Corpuscular Volume 92.3 fl (81-99); Mean Platelet Volume 10.7 fL (7.4-10.4); Monocytes % 7.8 %; Neutrophils # 8.86 10^3/uL (1.8-7.7); Neutrophils % 72.7 %; Nucleated Red Blood Cells % 0 %; Platelet Count 310 10^3/cmm (130-400); Red Blood Count 3.79 10^6/uL (4.1-5.3); Red Cell Distribution Width 13.4 % (12.1-15.1); White Blood Count 12.2 10^3/uL (4.0-10.0)
[2022-06-19 04:19] LABS: Partial Thromboplastin Time 80.1 SECONDS (23.9-36.7)
[2022-06-19 04:41] LABS: Anion Gap 16.1 (5-19); Blood Urea Nitrogen 45 mg/dL (8-23); Calcium 8.8 mg/dL (8.5-10.5); Carbon Dioxide 22 mmol/L (22-29); Chloride 104 mmol/L (98-107); Glucose 185 mg/dL (65-115); Osmolality Calculated 302 mOsm/kg (285-295); Potassium 4.1 mmol/L (3.5-5.1); Sodium 138 mmol/L (136-145)
[2022-06-19 07:40] LABS: Glucose Point of Care 189 mg/dL (70-110)
[2022-06-19] MEDS: methIMAzole 5 MG Tablet PO (09:07)
[2022-06-19] MEDS: pantoprazole DR 40 mg Tablet PO (09:07)
[2022-06-19] MEDS: clopidogrel 75 mg Tablet PO (09:07)
[2022-06-19] MEDS: metoprolol succinate ER (24 HR) 25 mg Tablet PO (09:07)
[2022-06-19] MEDS: amlodipine 10 mg Tablet PO (09:07)
[2022-06-19] MEDS: hyDRALAzine 25 mg Tablet PO ×2 (09:07→18:27)
[2022-06-19] MEDS: aspirin 81 mg EC Tablet PO (09:07)
[2022-06-19] MEDS: insulin lispro 100 unit/1 mL SUBCUT ×4 (09:10→20:37)
[2022-06-19] MEDS: acetaminophen 325 mg Tablet 650 MG PO ×2 (09:26→20:37)
[2022-06-19 09:58] LABS: Partial Thromboplastin Time 115.4 SECONDS (23.9-36.7)
[2022-06-19 12:42] LABS: Glucose Point of Care 216 mg/dL (70-110)
--- NOTE | 2022-06-19 15:05 | PM.PN ---
Subjective Subjective: States that her pain is improving today. Evaluated by cardiology, plans for medical intervention for now with plans for cath dependent on her creatinine over the weekend. Medications: Reviewed: Yes Vitals/I&O/Wt Last Vital Signs Temp 98.5 F 06/19/22 01:15 Pulse 81 06/19/22 14:00 Resp 16 06/19/22 07:34 BP 131/69 06/19/22 12:30 Pulse Ox 95 06/19/22 12:15 O2 Del Method 06/19/22 07:34 06/19/22 06/19/22 06/19/22 06:59 14:59 22:59 Intake Total 139.65 / 139.65 578.9 / 578.9 Output Total 550 / 1050 150 / 150 Balance -410.35 / -910.35 428.9 / 428.9 Weight last 48 hrs Weight 67.495 kg Weight 64.41 kg Physical Exam Narrative: General: No acute distress, AO x3 HEENT: PERRLA, pupils bilaterally equal and reactive, pallors not present Chest: Normal vesicular breath sounds, no added sounds, equal good air entry bilaterally CVS: S1-S2 regular, no murmurs, no tachycardia, no gallops, no rubs Abdomen: Soft, nontender, no organomegaly, bowel sounds present Neuro: No focal deficits, no facial deformity, AO x3, power 5/5 in all limbs Data 06/19/22 03:15 06/19/22 03:15 Micro: Microbiology 06/18/22 17:15 Blood Culture - Preliminary Blood SPECIMEN COLLECTED 06/18/22 17:07 Blood Culture - Preliminary Blood SPECIMEN COLLECTED A&P Assessment and plan (1) Non-STEMI (non-ST elevated myocardial infarction): Patient with complicated past medical history as outlined in H&P presenting with dyspnea on exertion and recurrent chest pain after recently having had an NSTEMI which was managed conservatively. Patient was also diagnosed with a COVID infection at that time. Troponins are up today to 592 range, delta is less than 10 at 2 hours and 6 hours. However given to assess for possible left heart cath. persistence of symptoms cardiology consulted continue aspirin, Plavix. heparin drip. nitropatch Plan for cardiology to monitor creatinine over the weekend and if stable to improving likely proceed with catheterization. (2) LLOYD (dyspnea on exertion): (3) Chronic kidney disease: Qualifiers: Chronic kidney disease stage: stage 3 (moderate) Chronic kidney disease stage 3 subtype: unspecified whether 3a or 3b Qualified Code(s): N18.30 - Chronic kidney disease, stage 3 unspecified Attestations Medical Necessity Statement*: NSTEMI, on medical management, close monitoring of renal function. Coding Level of Care Code Acute Code for [facility] Fwd Diagnoses Non-STEMI (non-ST elevated myocardial infarction) I21.4 LLOYD (dyspnea on exertion) R06.09 Chronic kidney disease N18.30 Chronic kidney disease stage: stage 3 (moderate) Chronic kidney disease stage 3 subtype: unspecified whether 3a or 3b
[2022-06-19 17:18] LABS: Partial Thromboplastin Time 78.1 SECONDS (23.9-36.7)
[2022-06-19 18:24] LABS: Glucose Point of Care 186 mg/dL (70-110)
[2022-06-19] MEDS: venlafaxine ER (24HR) 150 mg Capsule PO (20:25)
[2022-06-19 20:31] LABS: Glucose Point of Care 217 mg/dL (70-110)
[2022-06-20] VITALS (11 sets, daily range): BP systolic 142–182; BP diastolic 71–96; PULSE 74–87; RESP 12–23; TEMP 36.2–37; O2SAT 96–99
[2022-06-20] MEDS: nitroglycerin 1 gm/inch oint Pkt 1 INCH TOPICAL ×4 (01:04→18:49)
[2022-06-20 01:24] LABS: Basophils % 0.2 %; Eosinophils # 0.4 10^3/uL (0.0-0.8); Hematocrit 38.8 % (37.0-47.0); Hemoglobin 12.6 g/dL (11.5-15.3); Lymphocytes # 4.1 10^3/uL (0.8-4.8); Lymphocytes % 34.7 %; Mean Corpuscular HGB Conc 32.5 g/dL (30.0-36.0); Mean Corpuscular Hemoglobin 30.1 pg (28.0-34.0); Mean Corpuscular Volume 92.6 fl (81-99); Mean Platelet Volume 10.2 fL (7.4-10.4); Monocytes # 0.9 10^3/uL (0.2-0.9); Monocytes % 7.2 %; Neutrophils # 6.47 10^3/uL (1.8-7.7); Neutrophils % 54.6 %; Nucleated Red Blood Cells % 0 %; Platelet Count 366 10^3/cmm (130-400); Red Blood Count 4.19 10^6/uL (4.1-5.3); Red Cell Distribution Width 13.5 % (12.1-15.1); White Blood Count 11.9 10^3/uL (4.0-10.0)
[2022-06-20 01:45] LABS: Partial Thromboplastin Time 74.1 SECONDS (23.9-36.7)
[2022-06-20 02:30] LABS: Alanine Aminotransferase 13 U/L (0-33); Alkaline Phosphatase 76 U/L (35-105); Anion Gap 14.3 (5-19); Aspartate Amino Transferase 19 U/L (0-32); Blood Urea Nitrogen 47 mg/dL (8-23); Calcium 8.9 mg/dL (8.5-10.5); Carbon Dioxide 23 mmol/L (22-29); Chloride 107 mmol/L (98-107); Globulin 3.3 g/dL (1.3-4.6); Glucose 72 mg/dL (65-115); Osmolality Calculated 301 mOsm/kg (285-295); Potassium 4.3 mmol/L (3.5-5.1); Sodium 140 mmol/L (136-145); Total Bilirubin 0.3 mg/dL (0.15-1.2); Total Protein 6.3 g/dL (6.6-8.7)
[2022-06-20] MEDS: heparin drip 25,000 UNIT/500 ML PREMIX 13 UNIT IV (05:34)
--- NOTE | 2022-06-20 06:00 | PC.NURSE ---
Report called to JNENIFER Cummings, will transfer to [id number].
--- NOTE | 2022-06-20 06:29 | PC.NURSE ---
Transferred to U 111-1 via wheelchair. Heparin continues to infuse at 13ml/h.
[2022-06-20 06:49] LABS: Glucose Point of Care 199 mg/dL (70-110)
[2022-06-20 07:40] LABS: Partial Thromboplastin Time 96.7 SECONDS (23.9-36.7)
[2022-06-20] MEDS: aspirin 81 mg EC Tablet PO (08:41)
[2022-06-20] MEDS: pantoprazole DR 40 mg Tablet PO (08:42)
[2022-06-20] MEDS: methIMAzole 5 MG Tablet PO (08:42)
[2022-06-20] MEDS: insulin lispro 100 unit/1 mL SUBCUT ×3 (08:42→21:48)
[2022-06-20] MEDS: metoprolol succinate ER (24 HR) 25 mg Tablet PO (08:42)
[2022-06-20] MEDS: amlodipine 10 mg Tablet PO (08:42)
[2022-06-20] MEDS: atorvastatin 40 mg Tablet PO (08:42)
[2022-06-20] MEDS: clopidogrel 75 mg Tablet PO (08:42)
[2022-06-20] MEDS: hyDRALAzine 25 mg Tablet PO ×2 (08:42→18:01)
--- NOTE | 2022-06-20 09:55 | P.PN_ITS ---
Subjective Subjective: Romi is a complicated patient who has a long list of medical problems. Those include coronary disease with bypass surgery twice. Apparently she had 3 grafts placed each time. At her last angiogram the only graft that was left was the internal mammary to the LAD. She also has severe diffuse na tive disease. She has a number of other underlying problems including chronic kidney disease, hypertension, heart failure, ischemic cardiomyopathy, chronic respiratory failure, carotid disease, diabetes, COPD, dyslipidemia, peripheral arterial disease, history of stroke, prior NH, Graves' disease and a history of COVID. She was admitted to this hospital from the third of this month through the ninth of this month with respiratory insufficiency, heart failure, worsening kidney disease. She was diagnosed with COVID and had a non-ST segment elevation NH. Her creatinine was high enough that she decided to hold off on cardiac catheterization. She was also thinking about going to [place] where she sees a drywall finisher foreman. During that hospital stay her ejection fraction decreased. She was treated medically and sent home. She was admitted 3 days later on the with increased shortness of breath, increased volume overload, decreased oxygen saturations and her troponins this time were almost 600. She had another non-ST segment elevation NH. Her creatinine is still 2.0. Her BNP is 50,000. Her chest x-ray was relatively unremarkable. Her echo on the showed an ejection fraction of 35 to 40% which is a new finding. This morning she thinks she is better. She has regained a bit of her appetite. She states she finally got some sleep and feels a little better. She is less short of breath. She is able to lie flat. She has no chest pain. She is in sinus rhythm. Vitals/I&O/Wt Last Vital Signs Temp 97.2 F L 06/20/22 08:30 Pulse 86 06/20/22 08:30 Resp 21 H 06/20/22 08:30 BP 182/96 06/20/22 08:30 Pulse Ox 98 06/20/22 08:30 O2 Del Method 06/20/22 06:29 06/19/22 06/20/22 06/20/22 22:59 06:59 14:59 Intake Total 389.7 / 968.6 281.75 / 1250.35 150.117 / 150.117 Output Total 300 / 450 Balance 89.7 / 518.6 281.75 / 800.35 150.117 / 150.117 Weight last 48 hrs Weight 148 lb 12.8 oz Weight 142 lb Physical Exam Narrative: GENERAL: In general she is awake alert lying flat. HEENT: Exam within normal limits. NECK: Supple without jugular vein distention. The carotid upstroke is normal without bruits. BACK: Exam normal. LUNGS: Clear. HEART: Regular rate and rhythm. ABDOMEN: Benign without organomegaly or tenderness. EXTREMITIES: No edema. NEUROLOGIC: Exam normal. SKIN: Unremarkable. Data 06/20/22 01:15 06/20/22 01:15 Micro: Microbiology 06/18/22 17:15 Blood Culture - Preliminary Blood NEGATIVE TO DATE 06/18/22 17:07 Blood Culture - Preliminary Blood NEGATIVE TO DATE A&P Assessment and plan (1) Graves disease: (2) HTN (hypertension): (3) Dyslipidemia: (4) Carotid arterial disease: (5) Chronic kidney disease due to diabetes mellitus: (6) ASHD (arteriosclerotic heart disease): (7) Non-STEMI (non-ST elevated myocardial infarction): (8) Chronic kidney disease: Qualifiers: Chronic kidney disease stage: stage 3 (moderate) Chronic kidney disease stage 3 subtype: unspecified whether 3a or 3b Qualified Code(s): N18.30 - Chronic kidney disease, stage 3 unspecified Plan I would prefer continued medical management. I think the potential benefit from cardiac catheterization is very low in this patient. It has been established that the only graft she has which is patent as the internal mammary to the LAD. That suggest that the recent release of enzymes is related to her severe underlying paimiut coronary artery disease. Therefore, it is not likely there would be any benefit to intervention. She is not a candidate for further open heart surgery. Risking worsening renal failure for little to no gain does not make a great deal of sense to me. No changes right now. Attestations Medical Necessity Statement*: Continued hospital stay for management of heart failure, myocardial infarction and respiratory insufficiency. Coding Level of Care Code Established Pt Acute Code for Chg Fwd Patient Type Established History Comprehensive Exam Comprehensive Medical Decision Making High Complexity Diagnoses Graves disease E05.00 HTN (hypertension) I10 Dyslipidemia E78.5 Carotid arterial disease I77.9 Chronic kidney disease due to diabetes mellitus E11.22 ASHD (arteriosclerotic heart disease) I25.10 Non-STEMI (non-ST elevated myocardial infarction) I21.4 Chronic kidney disease N18.30 Chronic kidney disease stage: stage 3 (moderate) Chronic kidney disease stage 3 subtype: unspecified whether 3a or 3b
--- NOTE | 2022-06-20 12:09 | PM.PN ---
Subjective Subjective: Patient denies chest pain. Endorses occasional shortness of breath. We discussed her creatinine results. She denies fevers, chills, nausea or emesis. Medications: Reviewed: Yes Vitals/I&O/Wt Last Vital Signs Temp 97.2 F L 06/20/22 08:30 Pulse 86 06/20/22 08:30 Resp 21 H 06/20/22 08:30 BP 182/96 06/20/22 08:30 Pulse Ox 98 06/20/22 08:30 O2 Del Method 06/20/22 06:29 06/19/22 06/20/22 06/20/22 22:59 06:59 14:59 Intake Total 389.7 / 968.6 281.75 / 1250.35 150.117 / 150.117 Output Total 300 / 450 Balance 89.7 / 518.6 281.75 / 800.35 150.117 / 150.117 Weight last 48 hrs Weight 67.495 kg Weight 64.41 kg Physical Exam Narrative: General: Patient is awake and alert. Head: Normocephalic. Atraumatic. EOM intact. Neck: No JVD. Cardiovascular: RRR. No gallops. No murmurs. Lungs: Breath sounds diminished bilateral bases, no use of accessory muscles, no crackles or wheezes. Skin: No jaundice. No rashes. Abdomen: Normal bowel sounds, abdomen soft and nontender. Genito Urinary: Genital exam not performed since complaints not related. Rectal: Rectal exam not performed since no symptoms indicated blood loss. Extremities: No cyanosis or clubbing. Musculoskeletal: Normal range of motion, no swollen or erythematous joints. Neurological: Moves all 4 extremities. No myoclonus. Data 06/20/22 01:15 06/20/22 01:15 Micro: Microbiology 06/18/22 17:15 Blood Culture - Preliminary Blood NEGATIVE TO DATE 06/18/22 17:07 Blood Culture - Preliminary Blood NEGATIVE TO DATE A&P Assessment and plan (1) Non-STEMI (non-ST elevated myocardial infarction): Continuous pulse oximetry Cardiology following, appreciate recommendations Continue aspirin Continue Plavix Continue high intensity atorvastatin Continue heparin drip (2) LLOYD (dyspnea on exertion): Suspected secondary to cardiac cause Continue to monitor Treat underlying NSTEMI (3) Chronic kidney disease due to diabetes mellitus: Creatinine remains at 2 Will administer some gentle IV fluids today (4) HTN (hypertension): Continue amlodipine Continue hydralazine Continue labetalol as needed Continue metoprolol (5) Diabetes type 2, uncontrolled: Sliding-scale insulin correction Qualifiers: Glycemic state: with hyperglycemia Qualified Code(s): E11.65 - Type 2 diabetes mellitus with hyperglycemia Plan DVT prophylaxis: Heparin drip CODE STATUS: Full code Attestations Medical Necessity Statement*: Patient admitted with NSTEMI complicated by requiring ongoing hospitalization for cardiology consultation, heparin drip, and supportive care. Coding Level of Care Code Acute Code for Chg Fwd Diagnoses Non-STEMI (non-ST elevated myocardial infarction) I21.4 LLOYD (dyspnea on exertion) R06.09 Chronic kidney disease due to diabetes mellitus E11.22 HTN (hypertension) I10 Diabetes type 2, uncontrolled E11.65 Glycemic state: with hyperglycemia
[2022-06-20 12:10] LABS: Glucose Point of Care 174 mg/dL (70-110)
[2022-06-20] MEDS: lactated ringers 500 ML 50 ML IV (13:16)
[2022-06-20 14:34] LABS: Partial Thromboplastin Time 48.3 SECONDS (23.9-36.7)
[2022-06-20 16:49] LABS: Glucose Point of Care 119 mg/dL (70-110)
[2022-06-20 20:29] LABS: Glucose Point of Care 238 mg/dL (70-110)
[2022-06-20 21:32] LABS: Partial Thromboplastin Time 47.3 SECONDS (23.9-36.7)
[2022-06-20] MEDS: heparin 5,000 unit/mL INJ 1 mL IV (21:48)
[2022-06-20] MEDS: venlafaxine ER (24HR) 150 mg Capsule PO (21:49)
[2022-06-21] VITALS (10 sets, daily range): BP systolic 115–159; BP diastolic 72–79; PULSE 76–95; RESP 14–26; TEMP 36.4–36.7; O2SAT 95–98
[2022-06-21] MEDS: nitroglycerin 1 gm/inch oint Pkt 1 INCH TOPICAL ×2 (03:30→08:34)
[2022-06-21 03:39] LABS: Basophils % 0.4 %; Eosinophils # 0.3 10^3/uL (0.0-0.8); Eosinophils % 3.9 %; Hemoglobin 11.3 g/dL (11.5-15.3); Lymphocytes # 2.2 10^3/uL (0.8-4.8); Lymphocytes % 27.5 %; Mean Corpuscular HGB Conc 32.3 g/dL (30.0-36.0); Mean Corpuscular Hemoglobin 30.4 pg (28.0-34.0); Mean Corpuscular Volume 94.1 fl (81-99); Mean Platelet Volume 10.2 fL (7.4-10.4); Monocytes # 0.6 10^3/uL (0.2-0.9); Monocytes % 7.9 %; Neutrophils # 4.87 10^3/uL (1.8-7.7); Neutrophils % 59.8 %; Nucleated Red Blood Cells % 0 %; Platelet Count 266 10^3/cmm (130-400); Red Blood Count 3.72 10^6/uL (4.1-5.3); Red Cell Distribution Width 13.6 % (12.1-15.1); White Blood Count 8.1 10^3/uL (4.0-10.0)
[2022-06-21 04:05] LABS: Partial Thromboplastin Time 61.2 SECONDS (23.9-36.7)
[2022-06-21 04:15] LABS: Alanine Aminotransferase 11 U/L (0-33); Albumin Level 2.7 g/dL (3.5-5.2); Alkaline Phosphatase 68 U/L (35-105); Anion Gap 12.1 (5-19); Aspartate Amino Transferase 18 U/L (0-32); Blood Urea Nitrogen 42 mg/dL (8-23); Calcium 8.4 mg/dL (8.5-10.5); Carbon Dioxide 22 mmol/L (22-29); Chloride 106 mmol/L (98-107); Globulin 2.9 g/dL (1.3-4.6); Glucose 113 mg/dL (65-115); Osmolality Calculated 293 mOsm/kg (285-295); Phosphorus 2.7 mg/dL (2.5-4.5); Potassium 4.1 mmol/L (3.5-5.1); Sodium 136 mmol/L (136-145); Total Bilirubin 0.2 mg/dL (0.15-1.2); Total Protein 5.6 g/dL (6.6-8.7)
[2022-06-21 06:22] LABS: Glucose Point of Care 154 mg/dL (70-110)
[2022-06-21] MEDS: insulin lispro 100 unit/1 mL SUBCUT ×3 (08:16→17:03)
[2022-06-21] MEDS: hyDRALAzine 25 mg Tablet PO ×2 (08:17→17:53)
[2022-06-21] MEDS: atorvastatin 40 mg Tablet PO (08:17)
[2022-06-21] MEDS: aspirin 81 mg EC Tablet PO (08:17)
[2022-06-21] MEDS: clopidogrel 75 mg Tablet PO (08:17)
[2022-06-21] MEDS: metoprolol succinate ER (24 HR) 25 mg Tablet PO (08:17)
[2022-06-21] MEDS: amlodipine 10 mg Tablet PO (08:17)
[2022-06-21] MEDS: methIMAzole 5 MG Tablet PO (08:17)
[2022-06-21] MEDS: pantoprazole DR 40 mg Tablet PO (08:17)
--- NOTE | 2022-06-21 09:17 | PM.PN ---
Subjective Subjective: Romi is continuing to slowly improve. She is able to get up and around without chest pain. She is mildly short of breath with exercise but she thinks this is better. She is eating better. She is able to lie flat. She was able to get some sleep last night. No chest pain. Rhythm remains sinus rhythm. Her creatinine is 2.1 this morning. Vitals/I&O/Wt Last Vital Signs Temp 98.0 F 06/21/22 07:34 Pulse 88 06/21/22 07:34 Resp 15 06/21/22 07:34 BP 142/78 06/21/22 07:34 Pulse Ox 96 06/21/22 07:34 O2 Del Method 06/21/22 03:49 06/20/22 06/21/22 06/21/22 22:59 06:59 14:59 Intake Total 429.3 / 819.417 Output Total 520 / 520 420 / 940 Balance -90.7 / 299.417 -420 / -120.583 Physical Exam Narrative: GENERAL: In general she is comfortable lying flat in bed able to carry on a conversation. HEENT: Exam within normal limits. NECK: Supple without jugular vein distention. The carotid upstroke is normal without bruits. BACK: Exam normal. LUNGS: Clear. HEART: Regular rate and rhythm. ABDOMEN: Benign without organomegaly or tenderness. EXTREMITIES: No edema. NEUROLOGIC: Exam normal. SKIN: Unremarkable. Data 06/21/22 03:28 06/21/22 03:28 A&P Assessment and plan (1) Diabetes type 2, uncontrolled: Qualifiers: Glycemic state: with hyperglycemia Qualified Code(s): E11.65 - Type 2 diabetes mellitus with hyperglycemia (2) History of endovascular stent graft for abdominal aortic aneurysm (AAA): (3) S/P CABG (coronary artery bypass graft): (4) Graves disease: (5) HTN (hypertension): (6) Dyslipidemia: (7) Carotid arterial disease: (8) Chronic kidney disease due to diabetes mellitus: (9) ASHD (arteriosclerotic heart disease): (10) Non-STEMI (non-ST elevated myocardial infarction): (11) LLOYD (dyspnea on exertion): Plan I spoke to her about coronary angiography today. She continues to prefer to wait and have it done later if necessary. She would like to be able to go home for a while and regain her strength. There is certainly no urgent need for angiography at this time. I continue to be concerned about the potential benefits of the angiogram given her severe underlying [place] disease which is not amenable to intervention and the only graft left is the left internal mammary to the LAD. Her creatinine continues to be elevated and is now 2.1. Attestations Medical Necessity Statement*: Continued hospitalization required for management of heart failure, coronary disease, acute on chronic renal insufficiency. Coding Level of Care Code Established Pt Acute Code for Chg Fwd Patient Type Established History Comprehensive Exam Comprehensive Medical Decision Making High Complexity Diagnoses Diabetes type 2, uncontrolled E11.65 Glycemic state: with hyperglycemia History of endovascular stent graft for abdominal aortic aneurysm (AAA) Z95.828 S/P CABG (coronary artery bypass graft) Z95.1 Graves disease E05.00 HTN (hypertension) I10 Dyslipidemia E78.5 Carotid arterial disease I77.9 Chronic kidney disease due to diabetes mellitus E11.22 ASHD (arteriosclerotic heart disease) I25.10 Non-STEMI (non-ST elevated myocardial infarction) I21.4 LLOYD (dyspnea on exertion) R06.09
--- NOTE | 2022-06-21 10:59 | PM.PN ---
Subjective Subjective: Patient denies chest pain. She does endorse shortness of breath when she is up and walking but feels like it is improving. She feels like her overall strength is improving. She feels that the recent pneumonia really was the cause of all of this. She reports good oral intake. Denies fevers, chills, abdominal pain, or headaches. She reports that she did not sleep well last night despite getting trazodone. She states at home she takes Zanaflex at bedtime due to neck pain and requested that it be restarted. Medications: Reviewed: Yes Vitals/I&O/Wt Last Vital Signs Temp 98.0 F 06/21/22 07:34 Pulse 88 06/21/22 07:34 Resp 15 06/21/22 07:34 BP 142/78 06/21/22 07:34 Pulse Ox 96 06/21/22 07:34 O2 Del Method 06/21/22 03:49 06/20/22 06/21/22 06/21/22 22:59 06:59 14:59 Intake Total 429.3 / 819.417 240 / 240 Output Total 520 / 520 420 / 940 300 / 300 Balance -90.7 / 299.417 -420 / -120.583 -60 / -60 Physical Exam Narrative: General: Patient is awake and alert. Pleasant. Head: Normocephalic. Atraumatic. Neck: No JVD. Cardiovascular: RRR. No gallops. No murmurs. Lungs: Breath sounds diminished bilateral bases, no use of accessory muscles, no crackles or wheezes. Skin: No jaundice. No rashes. Abdomen: Normal bowel sounds, abdomen soft and nontender. Genito Urinary: Genital exam not performed since complaints not related. Rectal: Rectal exam not performed since no symptoms indicated blood loss. Extremities: No cyanosis or clubbing. Musculoskeletal: Normal range of motion, no swollen or erythematous joints. Neurological: Moves all 4 extremities. No myoclonus. Data 06/21/22 03:28 06/21/22 03:28 A&P Assessment and plan (1) Non-STEMI (non-ST elevated myocardial infarction): Continuous pulse oximetry and telemetry Cardiology following, appreciate recommendations Continue aspirin Continue Plavix Continue high intensity atorvastatin Continue Imdur Due to beta-lexy Continue heparin drip Decision and timing of cardiac cath still to be determined (2) LLOYD (dyspnea on exertion): Suspected secondary to cardiac cause Continue to monitor Treat underlying NSTEMI (3) Chronic kidney disease due to diabetes mellitus: Creatinine remains elevated Encourage oral intake (4) HTN (hypertension): Continue amlodipine Continue hydralazine Continue labetalol as needed Continue metoprolol (5) Diabetes type 2, uncontrolled: Sliding-scale insulin correction Qualifiers: Glycemic state: with hyperglycemia Qualified Code(s): E11.65 - Type 2 diabetes mellitus with hyperglycemia (6) Insomnia: Continue trazodone Start home Zanaflex (7) Hyperthyroidism: Continue methimazole Plan DVT prophylaxis: Heparin drip CODE STATUS: Full code Attestations Medical Necessity Statement*: Patient admitted with NSTEMI complicated by requiring ongoing hospitalization for cardiology consultation, heparin drip, and supportive care. Coding Level of Care Code Acute Code for g Fwd Diagnoses Non-STEMI (non-ST elevated myocardial infarction) I21.4 LLOYD (dyspnea on exertion) R06.09 Chronic kidney disease due to diabetes mellitus E11.22 HTN (hypertension) I10 Diabetes type 2, uncontrolled E11.65 Glycemic state: with hyperglycemia Insomnia G47.00 Hyperthyroidism E05.90
[2022-06-21 11:19] LABS: Glucose Point of Care 188 mg/dL (70-110)
[2022-06-21 11:28] LABS: Partial Thromboplastin Time 50.8 SECONDS (23.9-36.7)
[2022-06-21] MEDS: isosorbide mononitrate ER 30 mg Tablet PO (12:36)
[2022-06-21 15:24] LABS: Glucose Point of Care 75 mg/dL (70-110)
[2022-06-21 16:24] LABS: Glucose Point of Care 183 mg/dL (70-110)
[2022-06-21 18:17] LABS: Partial Thromboplastin Time 54.8 SECONDS (23.9-36.7)
[2022-06-21 20:58] LABS: Glucose Point of Care 126 mg/dL (70-110)
[2022-06-21] MEDS: venlafaxine ER (24HR) 150 mg Capsule PO (21:13)
[2022-06-21] MEDS: trazodone 50 mg Tablet PO (21:15)
[2022-06-21] MEDS: heparin drip 25,000 UNIT/500 ML PREMIX 13 UNIT IV (21:21)
[2022-06-22] VITALS (9 sets, daily range): BP systolic 137–174; BP diastolic 58–96; PULSE 76–94; RESP 12–24; TEMP 36.7–37.4; O2SAT 94–100
[2022-06-22 01:31] LABS: Basophils % 0.3 %; Eosinophils # 0.2 10^3/uL (0.0-0.8); Eosinophils % 2.9 %; Hematocrit 34.1 % (37.0-47.0); Hemoglobin 10.9 g/dL (11.5-15.3); Lymphocytes # 2.3 10^3/uL (0.8-4.8); Lymphocytes % 29.8 %; Mean Corpuscular Hemoglobin 30.1 pg (28.0-34.0); Mean Corpuscular Volume 94.2 fl (81-99); Mean Platelet Volume 10.3 fL (7.4-10.4); Monocytes # 0.5 10^3/uL (0.2-0.9); Monocytes % 7.1 %; Neutrophils # 4.49 10^3/uL (1.8-7.7); Neutrophils % 59.2 %; Nucleated Red Blood Cells % 0 %; Platelet Count 251 10^3/cmm (130-400); Red Blood Count 3.62 10^6/uL (4.1-5.3); Red Cell Distribution Width 13.5 % (12.1-15.1); White Blood Count 7.6 10^3/uL (4.0-10.0)
[2022-06-22 01:41] LABS: Partial Thromboplastin Time 62.1 SECONDS (23.9-36.7)
[2022-06-22 01:53] LABS: Alanine Aminotransferase 13 U/L (0-33); Albumin Level 2.8 g/dL (3.5-5.2); Alkaline Phosphatase 68 U/L (35-105); Anion Gap 12.2 (5-19); Aspartate Amino Transferase 21 U/L (0-32); Blood Urea Nitrogen 36 mg/dL (8-23); Calcium 8.5 mg/dL (8.5-10.5); Carbon Dioxide 22 mmol/L (22-29); Chloride 104 mmol/L (98-107); Globulin 2.7 g/dL (1.3-4.6); Glucose 199 mg/dL (65-115); Osmolality Calculated 292 mOsm/kg (285-295); Phosphorus 2.7 mg/dL (2.5-4.5); Potassium 4.2 mmol/L (3.5-5.1); Sodium 134 mmol/L (136-145); Total Bilirubin 0.2 mg/dL (0.15-1.2); Total Protein 5.5 g/dL (6.6-8.7)
[2022-06-22 06:25] LABS: Glucose Point of Care 154 mg/dL (70-110)
[2022-06-22 07:27] LABS: Partial Thromboplastin Time 51.9 SECONDS (23.9-36.7)
[2022-06-22] MEDS: heparin 5,000 unit/mL INJ 1 mL IV (07:52)
[2022-06-22] MEDS: insulin lispro 100 unit/1 mL SUBCUT ×3 (07:57→21:52)
[2022-06-22] MEDS: atorvastatin 40 mg Tablet PO (08:04)
[2022-06-22] MEDS: pantoprazole DR 40 mg Tablet PO (08:04)
[2022-06-22] MEDS: clopidogrel 75 mg Tablet PO (08:04)
[2022-06-22] MEDS: metoprolol succinate ER (24 HR) 25 mg Tablet PO (08:04)
[2022-06-22] MEDS: amlodipine 10 mg Tablet PO (08:04)
[2022-06-22] MEDS: hyDRALAzine 25 mg Tablet PO (08:04)
[2022-06-22] MEDS: aspirin 81 mg EC Tablet PO (08:04)
[2022-06-22] MEDS: methIMAzole 5 MG Tablet PO (08:05)
[2022-06-22] MEDS: isosorbide mononitrate ER 30 mg Tablet PO (08:08)
--- NOTE | 2022-06-22 11:26 | PM.PN ---
Subjective Subjective: Seen and examined this morning, she is complaining of slight chest tightness, on exertion. Which is totally new for her, never had any such complaint in the past, prior to this admission. She is also complaining of dyspnea on exertion which she attributes to recent COVID. Serum creatinine is trending down, currently at baseline. Will discontinue heparin drip today, current plan is to monitor the patient for any worsening of chest pain And accordingly decide on discharge. Medications: Reviewed: Yes Medication Review Details: Generic Name Dose Route Start Last Admin Trade Name Freq PRN Reason Stop Dose Admin Acetaminophen 650 mg 06/18/22 18:10 06/19/22 20:37 Acetaminophen 32 5 Mg Tablet PO 650 mg Q6H PRN Administration Mild/Mod Pain Or Temp >/= 101 Amlodipine Besylat e 10 mg 06/19/22 09:00 06/22/22 08:04 Amlodipine 10 Mg Tablet PO 10 mg DAILY YASMANI Administration Aspirin 81 mg 06/19/22 09:00 06/22/22 08:04 Aspirin 81 Mg Ec Tablet PO 81 mg DAILY YASMANI Administration Atorvastatin Calci um 40 mg 06/19/22 09:00 06/22/22 08:04 Atorvastatin 40 Mg Tablet PO 40 mg DAILY YASMANI Administration Clopidogrel Bisulf ate 75 mg 06/19/22 09:00 06/22/22 08:04 Clopidogrel 75 M g Tablet PO 75 mg DAILY YASMANI Administration Insulin Human Lisp ro 0 unit 06/18/22 21:00 06/22/22 12:43 Insulin Lispro 1 00 Unit/1 Ml SUBCUT 4 unit WM&BEDTIME YASMANI Administration Protocol Methimazole 5 mg 06/19/22 09:00 06/22/22 08:05 Methimazole 5 Mg Tablet PO 5 mg DAILY YASMANI Administration Metoprolol Succina te 25 mg 06/19/22 09:00 06/22/22 08:04 Metoprolol Succi rosie Er (24 Hr) 25 Mg Tablet PO 25 mg DAILY YASMANI Administration Pantoprazole Sodiu m 40 mg 06/19/22 09:00 06/22/22 08:[address] 40 Mg Tablet PO 40 mg DAILY YASMANI Administration Trazodone HCl 50 mg 06/20/22 21:00 06/21/22 21:15 Trazodone 50 Mg Tablet PO 50 mg BEDTIME PRN Administration sleep Venlafaxine HCl 150 mg 06/18/22 23:30 06/21/22 21:13 Venlafaxine Er ( 24hr) 150 Mg Capsu le PO 150 mg BEDTIME YASMANI Administration Vitals/I&O/Wt Last Vital Signs Temp 98.0 F 06/22/22 07:27 Pulse 90 06/22/22 07:27 Resp 17 06/22/22 07:27 BP 155/82 06/22/22 07:27 Pulse Ox 97 06/22/22 07:27 O2 Del Method 06/22/22 07:27 06/21/22 06/22/22 06/22/22 22:59 06:59 14:59 Intake Total 1215.25 / 1899.25 50 / 1949.25 240 / 240 Output Total 500 / 1000 600 / 1600 Balance 715.25 / 899.25 -550 / 349.25 240 / 240 Physical Exam Const: COMMON NORMALS: patient oriented x3 HENMT: COMMON NORMALS: normocephalic and atraumatic HEAD & SCALP: normocephalic and atraumatic Resp: COMMON NORMALS: normal respiratory effort, No retractions, No use of accessory muscles and clear to auscultation bilaterally EFFORT & INSPECTION: Yes symmetric chest movement AUSCULTATION: clear to auscultation bilaterally Cardio: COMMON NORMALS: regular rate, regular rhythm, S1 normal heart sound present, S2 normal heart sound present, No gallops present (Cardio), No murmurs present (Cardio), No rub (Cardio) and Peripheral pulses 2+ throughout RATE: regular rate RHYTHM: regular rhythm HEART SOUNDS: S1 normal heart sound present and S2 normal heart sound present PERIPHERAL PULSES: Peripheral pulses 2+ throughout GI: COMMON NORMALS: Normal to inspection, nondistended, normoactive bowel sounds present, Soft to palpation, non-tender, No hepatosplenomegaly present and no masses AUSCULTATION: Yes normoactive bowel sounds PALPATION: Yes Soft to palpation and Yes No hepatosplenomegaly present RECTAL EXAM: deferred Extremity: COMMON NORMALS: no clubbing, cyanosis or edema and no pedal edema Neuro: COMMON NORMALS: patient oriented x3 Data 06/22/22 00:56 06/22/22 00:56 A&P Assessment and plan (1) Non-STEMI (non-ST elevated myocardial infarction): Continuous pulse oximetry and telemetry Continue aspirin Continue Plavix Continue high intensity atorvastatin Continue Imdur dose has been uptitrated to 60 twice daily, was her home dose Continue metoprolol 25 p.o. daily Was on heparin drip has been discontinued Cardiology on board, current plan is medical management and cardiology follow-up as outpatient. (2) LLOYD (dyspnea on exertion): Suspected secondary to cardiac cause Continue to monitor Treat underlying NSTEMI (3) Chronic kidney disease: Currently serum creatinine is at baseline. Monitor intake output charting Qualifiers: Chronic kidney disease stage: stage 3 (moderate) Chronic kidney disease stage 3 subtype: unspecified whether 3a or 3b Qualified Code(s): N18.30 - Chronic kidney disease, stage 3 unspecified (4) Hyperthyroidism: Continue methimazole (5) Diabetes type 2, uncontrolled: SSI Monitor fingerstick glucose Qualifiers: Glycemic state: with hyperglycemia Qualified Code(s): E11.65 - Type 2 diabetes mellitus with hyperglycemia (6) S/P CABG (coronary artery bypass graft): (7) HTN (hypertension): Continue amlodipine Continue hydralazine Continue labetalol as needed Continue metoprolol Attestations Medical Necessity Statement*: Patient is to be in hospital for management of NSTEMI, medical management optimization. Coding Level of Care Code Acute Code for Chg Fwd Exam Detailed Diagnoses Non-STEMI (non-ST elevated myocardial infarction) I21.4 LLOYD (dyspnea on exertion) R06.09 Chronic kidney disease N18.30 Chronic kidney disease stage: stage 3 (moderate) Chronic kidney disease stage 3 subtype: unspecified whether 3a or 3b Hyperthyroidism E05.90 Diabetes type 2, uncontrolled E11.65 Glycemic state: with hyperglycemia S/P CABG (coronary artery bypass graft) Z95.1 HTN (hypertension) I10
[2022-06-22 11:57] LABS: Glucose Point of Care 174 mg/dL (70-110)
--- NOTE | 2022-06-22 12:44 | P.PN_ITS ---
Subjective Subjective: Her chest tightness from this morning has resolved. Medications: Reviewed: Yes Vitals/I&O/Wt Last Vital Signs Temp 98.2 F 06/22/22 11:48 Pulse 76 06/22/22 11:48 Resp 24 H 06/22/22 11:48 BP 153/68 06/22/22 11:48 Pulse Ox 95 06/22/22 11:48 O2 Del Method 06/22/22 11:48 06/21/22 06/22/22 06/22/22 22:59 06:59 14:59 Intake Total 1215.25 / 1899.25 50 / 1949.25 480 / 480 Output Total 500 / 1000 600 / 1600 Balance 715.25 / 899.25 -550 / 349.25 480 / 480 Physical Exam Narrative: Gen: pleasant lady lasying in bed, NAD HEENT: No pallor or icterus, EOMI RS: CTAB/L except at b/l basal coarse rales+ CVS: S1, S2 regular, No murmur, rub or gallop heard. PA: soft, NT ND Ext: No edema, good periphearl pulses SHIRT IRONER: AAOx 3, No FND Data 06/22/22 00:56 06/22/22 00:56 A&P Assessment and plan (1) Non-STEMI (non-ST elevated myocardial infarction): Creatinine slightly improved this morning. I discussed with patient option of continuing medical management and decision for LHC based on how her renal function only if medical management fails. -It is possible that even after LHC we might have to continue with medical management based on her last [facility] findings. This was discussed with the patient as well -October d/c heparin gtt. -increase imdur to 60 mg BID. D/C hydralazine and increase metoprolol to 50 mg in morning based on BP/HR. (2) ASHD (arteriosclerotic heart disease): (3) Chronic kidney disease: continue to closely monitor creatinine; cr-1.7 today Qualifiers: Chronic kidney disease stage: stage 3 (moderate) Chronic kidney disease stage 3 subtype: unspecified whether 3a or 3b Qualified Code(s): N18.30 - Chronic kidney disease, stage 3 unspecified (4) HTN (hypertension): BP still elevated (5) Dyslipidemia: (6) Graves disease: Plan Patient seen today via Telehealth by agreement and consent of patient. Telehealth technology used during the visit include video and audio. The patient has been advised of the potential risks and limitations of this mode of treatment (including but not limited to the absence of in-person examination) and has agreed to be treated in a remote fashion in spite of them. Any and all of the patient?s/patient?s family?s questions on this issue have been answered. Exam was conducted with the help of bedside nurse. Time spent in encounter 20 minutes with >50% time spent face to face. Attestations Medical Necessity Statement*: needs hospital stay for med management. Coding Level of Care Code Acute Code for g Fwd Diagnoses Non-STEMI (non-ST elevated myocardial infarction) I21.4 ASHD (arteriosclerotic heart disease) I25.10 Chronic kidney disease N18.30 Chronic kidney disease stage: stage 3 (moderate) Chronic kidney disease stage 3 subtype: unspecified whether 3a or 3b HTN (hypertension) I10 Dyslipidemia E78.5 Graves disease E05.00
[2022-06-22 16:58] LABS: Glucose Point of Care 138 mg/dL (70-110)
[2022-06-22] MEDS: isosorbide mononitrate ER 60 mg Tablet PO (17:48)
[2022-06-22 20:52] LABS: Glucose Point of Care 228 mg/dL (70-110)
[2022-06-22] MEDS: venlafaxine ER (24HR) 150 mg Capsule PO (21:52)
[2022-06-22] MEDS: tizanidine 4 mg Tablet PO (22:00)
--- NOTE | 2022-06-22 22:00 | PC.NURSE ---
Patient has walked in the [facility] x 2 this evening. She was able to walk the entire length of the [place] without dyspnea.
[2022-06-23] MEDS: trazodone 50 mg Tablet PO (00:19)
[2022-06-23 03:53] VITALS: BP 120/68; PULSE 90; RESP 10; TEMP 37.3; O2SAT 95
[2022-06-23 05:58] LABS: Basophils % 0.3 %; Eosinophils # 0.3 10^3/uL (0.0-0.8); Hematocrit 35.1 % (37.0-47.0); Hemoglobin 11.4 g/dL (11.5-15.3); Lymphocytes # 2.4 10^3/uL (0.8-4.8); Mean Corpuscular HGB Conc 32.5 g/dL (30.0-36.0); Mean Corpuscular Hemoglobin 30.6 pg (28.0-34.0); Mean Corpuscular Volume 94.1 fl (81-99); Mean Platelet Volume 10.4 fL (7.4-10.4); Monocytes # 0.6 10^3/uL (0.2-0.9); Monocytes % 7.1 %; Neutrophils # 5.53 10^3/uL (1.8-7.7); Neutrophils % 62.2 %; Nucleated Red Blood Cells % 0 %; Platelet Count 287 10^3/cmm (130-400); Red Blood Count 3.73 10^6/uL (4.1-5.3); Red Cell Distribution Width 13.8 % (12.1-15.1); White Blood Count 8.9 10^3/uL (4.0-10.0)
[2022-06-23 05:59] LABS: Glucose Point of Care 192 mg/dL (70-110)
[2022-06-23 06:00] VITALS: PULSE 96
[2022-06-23 06:16] LABS: Anion Gap 14.4 (5-19); Blood Urea Nitrogen 36 mg/dL (8-23); Calcium 8.9 mg/dL (8.5-10.5); Carbon Dioxide 22 mmol/L (22-29); Chloride 109 mmol/L (98-107); Glucose 170 mg/dL (65-115); Osmolality Calculated 304 mOsm/kg (285-295); Potassium 4.4 mmol/L (3.5-5.1); Sodium 141 mmol/L (136-145)
[2022-06-23 07:57] VITALS: BP 170/88; PULSE 99; RESP 18; TEMP 36.4; O2SAT 95
[2022-06-23] MEDS: enoxaparin 30 mg/0.3 mL Syringe SUBCUT (08:32)
[2022-06-23] MEDS: isosorbide mononitrate ER 60 mg Tablet PO (08:33)
[2022-06-23] MEDS: pantoprazole DR 40 mg Tablet PO (08:33)
[2022-06-23] MEDS: methIMAzole 5 MG Tablet PO (08:33)
[2022-06-23] MEDS: amlodipine 10 mg Tablet PO (08:33)
[2022-06-23] MEDS: aspirin 81 mg EC Tablet PO (08:34)
[2022-06-23] MEDS: atorvastatin 40 mg Tablet PO (08:34)
[2022-06-23] MEDS: clopidogrel 75 mg Tablet PO (08:34)
[2022-06-23] MEDS: metoprolol succinate ER (24 HR) 50 mg Tablet PO (08:40)
[2022-06-23] MEDS: insulin lispro 100 unit/1 mL SUBCUT (08:41)
--- NOTE | 2022-06-23 10:14 | PM.DCS ---
Discharge Providers Date of Admission: 06/18/22 19:18 Date of Discharge: June 23, 2022 Attending Provider at Admission: Misa Landry MD Attending Provider at Discharge: Geoff Dinero MD Primary Care Provider: Jocelyne Kirby Diagnoses at Discharge Discharge Diagnosis (1) Non-STEMI (non-ST elevated myocardial infarction): Status: Acute (2) ASHD (arteriosclerotic heart disease): Status: Acute (3) Chronic kidney disease: Status: Acute Qualifiers: Chronic kidney disease stage: stage 3 (moderate) Chronic kidney disease stage 3 subtype: unspecified whether 3a or 3b Qualified Code(s): N18.30 - Chronic kidney disease, stage 3 unspecified (4) HTN (hypertension): Status: Acute (5) Dyslipidemia: Status: Acute (6) Graves disease: Status: Acute Reason for Visit Reason for Visit: Low O2 Hospital Course Hospital Course HPI: Misa Landry MD: Romi Yuan is a 71 year old female with past medical history of coronary artery disease status post CABG x2 years ago, chronic kidney disease, chronic congestive heart failure, hypertension, diabetes type 2, hypothyroidism, Graves' disease recently admitted here 06/09 to 06/15 for COVID-19 pneumonia, NSTEMI.? Cardiology was consulted for coronary angiogram when echo showed significant wall motion abnormality.? There was plan for angiogram however this was delayed because of worsening of creatinine.?Baseline creatinine is around 1.7-2.? She was kept in the hospital for about 5 days in anticipation that her creatinine will improve with IV diuresis for systolic CHF exacerbation.? She finished ACS protocol, remained chest pain-free and hemodynamically stable.? Her hypoxia worsened because of flash pulm edema required IV diuresis and better control of blood pressure.?? Patient remained chest pain-free throughout hospitalization.? EF is 35 to 40% severe hypokinesia inferior inferior lateral wall grade 1 diastolic function. 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 She returns to the ER with c/o with complaints of increasing shortness of breath today. her oxygen saturation was down to 88% on supplemental oxygen at home when she exerted herself.? She states she gets chest pressure with walking. Her troponin today is at 592 compared to 67--> 200s at? admission on June 09.? BNP is elevated at 49,000, similar range on last admission.? Chest x-ray shows right lower lobe atelectasis otherwise no signs of pneumonia.? Lungs are clear. Hospital course : She was admitted for the management of NSTEMI: was kept on ACS protocol: Therapeutic anticoagulation with heparin aspirin Plavix beta-lexy Imdur, most recent 2D echo results were appreciated. Cardiology was on board, given her underlying CKD: With baseline creatinine of 1.7-2, and possibility of Continued medical management, even after left heart cath, given her prior complex cath findings, it was decided to continue with medical management, metoprolol dose has been increased to 50 p.o. daily, She was continued on aspirin Plavix statin, Imdur dose was resumed to 60 twice daily. At the time of discharge chest pain has improved.She will follow cardiology as outpatient. Overall patient responded well to above medical management and was discharged in stable condition to home. Physical Exam Const: COMMON NORMALS: patient oriented x3 HENMT: COMMON NORMALS: normocephalic and atraumatic HEAD & SCALP: normocephalic and atraumatic Resp: COMMON NORMALS: normal respiratory effort, No retractions, No use of accessory muscles and clear to auscultation bilaterally EFFORT & INSPECTION: Yes symmetric chest movement AUSCULTATION: clear to auscultation bilaterally Cardio: COMMON NORMALS: regular rate, regular rhythm, S1 normal heart sound present, S2 normal heart sound present, No gallops present (Cardio), No murmurs present (Cardio), No rub (Cardio) and Peripheral pulses 2+ throughout RATE: regular rate RHYTHM: regular rhythm HEART SOUNDS: S1 normal heart sound present and S2 normal heart sound present PERIPHERAL PULSES: Peripheral pulses 2+ throughout GI: COMMON NORMALS: Normal to inspection, nondistended, normoactive bowel sounds present, Soft to palpation, non-tender, No hepatosplenomegaly present and no masses AUSCULTATION: Yes normoactive bowel sounds PALPATION: Yes Soft to palpation and Yes No hepatosplenomegaly present RECTAL EXAM: deferred Extremity: COMMON NORMALS: no clubbing, cyanosis or edema and no pedal edema Neuro: COMMON NORMALS: patient oriented x3 Discharge Data Studies Completed and Pending Completed Studies During Hospitalization Category Date Time Status XR chest 1V portable [id number] Stat Exams 06/18/22 14:40 Completed Pending at discharge Category Date Time Status BMP [Basic Metabolic Panel] AM LABS Lab 06/24/22 04:00 Ordered BMP [Basic Metabolic Panel] AM LABS Lab 06/25/22 04:00 Ordered Blood Culture Stat Lab 06/18/22 17:15 Results CBC Auto Diff [Complete Blood Count w/Auto] AM LABS Lab 06/24/22 04:00 Ordered CBC Auto Diff [Complete Blood Count w/Auto] AM LABS Lab 06/25/22 04:00 Ordered Radiology Impressions Chest X-Ray 06/18/22 14:40 IMPRESSION: 1. Right lower lobe atelectasis. 2. Metallic sternotomy wires are present. 3. Otherwise negative examination Laboratory Results WBC 8.9 10^3/uL (4.0-10.0) 06/23/22 05:10 RBC 3.73 10^6/uL (4.1-5.3) L 06/23/22 05:10 Hgb 11.4 g/dL (11.5-15.3) L 06/23/22 05:10 Hct 35.1 % (37.0-47.0) L 06/23/22 05:10 MCV 94.1 fl (81-99) 06/23/22 05:10 MCH 30.6 pg (28.0-34.0) 06/23/22 05:10 MCHC 32.5 g/dL (30.0-36.0) 06/23/22 05:10 RDW 13.8 % (12.1-15.1) 06/23/22 05:10 Plt Count 287 10^3/cmm (130-400) 06/23/22 05:10 MPV 10.4 fL (7.4-10.4) 06/23/22 05:10 Neut % (Auto) 62.2 % 06/23/22 05:10 Lymph % (Auto) 27.0 % 06/23/22 05:10 Grant % (Auto) 7.1 % 06/23/22 05:10 Eos % (Auto) 3.0 % 06/23/22 05:10 Baso % (Auto) 0.3 % 06/23/22 05:10 Neut # (Auto) 5.53 10^3/uL (1.8-7.7) 06/23/22 05:10 Lymph # (Auto) 2.4 10^3/uL (0.8-4.8) 06/23/22 05:10 Grant # (Auto) 0.6 10^3/uL (0.2-0.9) 06/23/22 05:10 Eos # (Auto) 0.3 10^3/uL (0.0-0.8) 06/23/22 05:10 Baso # (Auto) 0.0 10^3/uL (0.0-0.1) 06/23/22 05:10 Nucleated RBC % (auto) 0 % 06/23/22 05:10 Nucleated RBCs # 0.0 /100WBC 06/23/22 05:10 APTT 51.9 SECONDS (23.9-36.7) H 06/22/22 07:02 Sodium 141 mmol/L (136-145) 06/23/22 05:10 Potassium 4.4 mmol/L (3.5-5.1) 06/23/22 05:10 Chloride 109 mmol/L (98-107) H 06/23/22 05:10 Carbon Dioxide 22 mmol/L (22-29) 06/23/22 05:10 Anion Gap 14.4 (5-19) 06/23/22 05:10 BUN 36 mg/dL (8-23) H 06/23/22 05:10 Creatinine 1.8 mg/dL (0.5-0.9) H 06/23/22 05:10 GFR Calculation Not Reportable 06/23/22 05:10 Glucose 170 mg/dL (65-115) H 06/23/22 05:10 POC Glucose 192 mg/dL (70-110) H 06/23/22 05:55 Calculated Osmolality 304 mOsm/kg (285-295) H 06/23/22 05:10 Lactic Acid 0.7 mmol/L (0.5-2.2) 06/18/22 17:07 Calcium 8.9 mg/dL (8.5-10.5) 06/23/22 05:10 Phosphorus 2.7 mg/dL (2.5-4.5) 06/22/22 00:56 Total Bilirubin 0.2 mg/dL (0.15-1.2) 06/22/22 00:56 AST 21 U/L (0-32) 06/22/22 00:56 ALT 13 U/L (0-33) 06/22/22 00:56 Alkaline Phosphatase 68 U/L (35-105) 06/22/22 00:56 Troponin T Baseline 592 ng/L (0-10) H* 06/18/22 16:15 Troponin T 120 Minute 597.4 ng/L (0-10) H 06/18/22 17:07 Delta Troponin T 5.4 ABS# (0-10) 06/18/22 17:07 Troponin T Hi Sens 6Hr 543.1 ng/L (0-10) H 06/18/22 22:40 Troponin T Hi Sens 6Hr Delta -48.9 ng/L (0-12) L 06/18/22 22:40 NT-Pro-B Natriuret Pep 11061 pg/mL (0-125) H 06/18/22 16:15 Total Protein 5.5 g/dL (6.6-8.7) L 06/22/22 00:56 Albumin 2.8 g/dL (3.5-5.2) L 06/22/22 00:56 Globulin 2.7 g/dL (1.3-4.6) 06/22/22 00:56 Vitals Last Vital Signs Temp 97.6 F 06/23/22 07:57 Pulse 99 06/23/22 07:57 Resp 18 06/23/22 07:57 BP 170/88 06/23/22 07:57 Pulse Ox 95 06/23/22 07:57 O2 Del Method 06/23/22 07:57 Discharge Plan Discharge Patient Disposition: Home Health Service Condition: Stable Prescriptions: New metoprolol succinate 50 mg Tablet Extended Release 24 Hr 50 mg PO DAILY 30 Days Qty: 30 3RF Continued Levemir U-100 Insulin 100 unit/mL solution 45 unit SUBCUT BEDTIME Anoro Ellipta 62.5-25 mcg/actuation blister with device 1 inh INHALATION DAILY isosorbide mononitrate 60 mg tablet extended release 24 hr 60 mg PO BID venlafaxine [Effexor XR] 150 mg capsule,extended release 24hr 150 mg PO DAILY Rx Instructions: TAKE WITH 75 MG tizanidine [Zanaflex] 4 mg capsule 4 mg PO DAILY PRN (Reason: MUSCLE SPASMS) insulin aspart U-100 [Novolog U-100 Insulin aspart] 100 unit/mL solution 6 unit SUBCUT QID Rx Instructions: PT STATES SHE TAKES 6 UNITS UP TO 4 TIMES PER DAY. cholecalciferol (vitamin D3) 125 mcg (5,000 unit) capsule 125 mcg PO Q7D amlodipine 10 mg tablet 10 mg PO DAILY Qty: 90 3RF methimazole 5 mg tablet 5 mg PO DAILY Qty: 30 3RF (DME) Accu-Chek Ana M Plus test strp Strip See Rx Instructions .ROUTE .MEDSUPPLY Qty: 120 3RF Rx Instructions: check blood glucose four times a day docusate sodium [Colace] 100 mg capsule 100 mg PO BID Qty: 30 0RF nitroglycerin 0.4 mg tablet, sublingual 0.4 mg sublingual PRN PRN (Reason: CHEST PAINS) albuterol sulfate [Ventolin HFA] 90 mcg/actuation HFA aerosol inhaler See Rx Instructions .ROUTE .COMPLEX Rx Instructions: inhaled USE DIRECTED - potassium chloride 10 mEq tablet extended release 10 meq PO DAILY Qty: 30 0RF Rx Instructions: Potassium only with Lasix clopidogrel [Plavix] 75 mg tablet 75 mg PO DAILY Qty: 60 0RF aspirin [Adult Aspirin Regimen] 81 mg tablet,delayed release (DR/EC) 81 mg PO DAILY Qty: 60 2RF furosemide [Lasix] 20 mg tablet 20 mg PO DAILY PRN (Reason: swelling) Qty: 60 0RF atorvastatin 40 mg tablet 40 mg PO BEDTIME venlafaxine 75 mg capsule,extended release 24hr 75 mg PO DAILY Rx Instructions: TAKE WITH 150 MG nystatin 100,000 unit/mL Suspension 100,000 unit PO DAILY Rx Instructions: administer 1/2 of dose in each side of the mouth acitretin 10 mg capsule 10 mg PO DAILY Discontinued metoprolol succinate [Toprol XL] 25 mg tablet extended release 24 hr 25 mg PO DAILY Qty: 30 3RF hydralazine 25 mg tablet 25 mg PO BID Qty: 60 2RF Discharge Orders: Discharge Order (Routine); Ordered 06/23/22 Ordered By: Geoff Dinero Referrals: [facility] [Other] Katherin Win FNP [Nurse Practitioner] - 06/30/22 9:30 am ([facility] has scheduled an appointment with Katherin Win on 06/30/2022 at 9:30. If you have any questions, please call [phone].) Jocelyne Kirby PA [Primary Care Provider] - 06/26/22 1:15 pm ([facility] has scheduled an appointment for you with Dr. Jocelyne Kirby on 06/26/2022 at 1:15. If you hae any questions, please call [phone].) Discharge Diet: Cardiac Patient Instructions: Hypothyroidism (DC), Insomnia (DC), Graves Disease (DC), Opioid Safety Discharge Attestations Time Spent in Discharge Care*: greater than 30 min Status at Discharge: Cognitive status at discharge: cognitively intact, Behavioral status at discharge: cooperative, Quality Metrics Clinical Quality Measures [ No reported AMI, CVA or VTE this stay] Coding Level of Care Code Acute Chg FW DC note Exam Detailed Diagnoses Non-STEMI (non-ST elevated myocardial infarction) I21.4 ASHD (arteriosclerotic heart disease) I25.10 Chronic kidney disease N18.30 Chronic kidney disease stage: stage 3 (moderate) Chronic kidney disease stage 3 subtype: unspecified whether 3a or 3b HTN (hypertension) I10 Dyslipidemia E78.5 Graves disease E05.00
--- NOTE | 2022-06-23 10:32 | PC.SOCIAL ---
IMM update IMM updated with patient's mom, Geraldine. Copy of page 2 provided. Geraldine verbalized understanding. Copy in chart initialed, dated and timed.
[2022-06-23 10:57] VITALS: BP 170/88; PULSE 99; RESP 18; TEMP 36.4; O2SAT 95
[2022-06-23 11:11] LABS: Glucose Point of Care 143 mg/dL (70-110)
[2022-06-23 11:54] VITALS: BP 138/73; PULSE 78; RESP 15; TEMP 36.4; O2SAT 97
[2022-06-23 13:17] VITALS: BP 138/73; PULSE 78; RESP 15; TEMP 36.4
--- NOTE | 2022-06-23 15:23 | PC.NURSE ---
Patient was discharged via wheelchair at 1513. All instructions and education given and patient verbalized understanding. Prescriptions sent to pharmacy. IV removed and intact. Patient wheeled to main entrance with nurse where daughter was waiting.
== END 2022-06-23 15:13 | disposition home health service (06) | DRG 281 ==
LOC: ER 19:17 → ICU 19:19 → CSU 06-20 06:30
PROVIDERS: Family Medicine; Internal Medicine; Nurse Practitioner Family; Admitting Provider Student in an Organized Health Care Education/Training Program; Emergency Provider Family Medicine; PCP Physician Assistant; Visit Provider Internal Medicine
DX: I22.2 Subsequent non-ST elevation (NSTEMI) myocardial infarction (principal); I13.0 Hypertensive heart and chronic kidney disease with heart failure and stage 1 through stage 4 chronic kidney disease, or unspecified chronic kidney disease; I50.22 Chronic systolic (congestive) heart failure; I21.4 Non-ST elevation (NSTEMI) myocardial infarction; I25.10 Atherosclerotic heart disease of native coronary artery without angina pectoris; Z95.1 Presence of aortocoronary bypass graft; E11.22 Type 2 diabetes mellitus with diabetic chronic kidney disease; E11.65 Type 2 diabetes mellitus with hyperglycemia; N18.30 Chronic kidney disease, stage 3 unspecified; E11.51 Type 2 diabetes mellitus with diabetic peripheral angiopathy without gangrene; E78.5 Hyperlipidemia, unspecified; E05.00 Thyrotoxicosis with diffuse goiter without thyrotoxic crisis or storm; Z86.16 Personal history of COVID-19; Z87.01 Personal history of pneumonia (recurrent); Z79.4 Long term (current) use of insulin; Z79.51 Long term (current) use of inhaled steroids; Z79.02 Long term (current) use of antithrombotics/antiplatelets; Z79.82 Long term (current) use of aspirin; F41.9 Anxiety disorder, unspecified; J44.9 Chronic obstructive pulmonary disease, unspecified; Z86.73 Personal history of transient ischemic attack (TIA), and cerebral infarction without residual deficits; I25.5 Ischemic cardiomyopathy; Z87.891 Personal history of nicotine dependence; I71.40 Abdominal aortic aneurysm, without rupture, unspecified; I25.2 Old myocardial infarction; Z85.828 Personal history of other malignant neoplasm of skin
CPT/HCPCS: 36415; 36416; 71045; 80048; 80053; 80069; 82962; 83605; 83880; 84484; 85025; 85730; 87040; 93005; 94640; 96365; 96372; 96375; 97161; 99285; J0360; J1644; J1650; J1815; J1940; J3490; J7120; J7613

== ENCOUNTER 2022-06-24 07:43 | Inpatient (IN) | payer MEDICARE, MEDICAID, SELFPAY ==
[2022-06-24] VITALS (71 sets, daily range): BP systolic 152–193; BP diastolic 70–113; PULSE 90–126; RESP 13–33; TEMP 36.6–37; O2SAT 90–100; BMI 34.9
--- NOTE | 2022-06-24 07:44 | W.ED.SOB ---
HPI - SOB/Dyspnea General: Chief Complaint: Shortness of Breath/Dyspnea Stated Complaint: RESP. DISTRESS Time Seen by Provider: 06/24/22 07:44 History of Present Illness: HPI Narrative: Ms. Yuan is a 71-year-old lady with complex history including CAD, CABG, CKD, CHF, hypertension, hyperlipidemia, thyroid disorder, diabetes, COVID-19, recent hospitalization with NSTEMI presenting to the emergency department due to shortness of breath. She reports over the past few days feeling okay and when she woke up at approximately 5 AM she was doing okay. Shortly thereafter she developed increased shortness of breath which was worse with exertion. Denies associated chest pain or infectious symptoms. Intensity of symptoms was severe and currently moderate with some improvement in EMS treatment. She has as needed oxygen at home however has not needed it recently, currently on 4 LPM of oxygen via nasal cannula. No other specific changes in health, exacerbating, or alleviating factors identified. Onset (ago): hour(s) Context: other Timing: improved Severity: severe Exacerbating factors: lying flat and exertion Relieving factors: nothing Known history of: congestive heart failure and other Review of Systems General: Reports: 10 or more systems reviewed and unremarkable except in HPI and below PFSH ED PFSH: Medical History Acute exacerbation of CHF (congestive heart failure) Acute respiratory failure with hypoxia Anxiety ASHD (arteriosclerotic heart disease) Carotid arterial disease CHF (congestive heart failure) Chronic kidney disease Chronic kidney disease due to diabetes mellitus Colon polyps COPD (chronic obstructive pulmonary disease) Coronary artery disease due to type 2 diabetes mellitus Diabetes mellitus Diabetes type 2, uncontrolled LLOYD (dyspnea on exertion) Dyslipidemia Graves disease History of CVA (cerebrovascular accident) History of myocardial infarction History of skin cancer HTN (hypertension) Hypertensive urgency Hyperthyroidism Insomnia Non-STEMI (non-ST elevated myocardial infarction) NSTEMI (non-ST elevated myocardial infarction) PAD (peripheral artery disease) Pneumonia due to COVID-19 virus Surgical History History of endovascular stent graft for abdominal aortic aneurysm (AAA) Hx of local excision of skin lesion (09/16/20) Left forearm x2 S/P CABG (coronary artery bypass graft) S/P cardiac catheterization S/P cataract surgery S/P cholecystectomy S/P hysterectomy with oophorectomy S/P skin and subcutaneous tissue surgery Status post colonoscopy (09/16/20) Family History Sister Mark's disease Sister No problems noted. Mother No problems noted. Other Anesthesia complication Social History Smoking and tobacco status: former smoker Alcohol intake: current Alcohol intake frequency: holidays/special occasions only Physical Exam Const: COMMON NORMALS: alert GENERAL APPEARANCE: cooperative, well developed and ill appearing (Somewhat) HENMT: COMMON NORMALS: normocephalic and atraumatic HEAD & SCALP: normocephalic and atraumatic Eye: COMMON NORMALS: conjunctivae normal CONJUNCTIVA: Yes conjunctivae normal SCLERA: sclerae normal Neck/C-Spine: COMMON NORMALS: supple GENERAL: Yes trachea midline Resp: EFFORT & INSPECTION: Yes tachypneic AUSCULTATION: diminished lung sounds Cardio: COMMON NORMALS: regular rhythm RATE: tachycardic RHYTHM: regular rhythm GI: COMMON NORMALS: Soft to palpation PALPATION: Yes Soft to palpation and No Tenderness to palpation present (GI) Extremity: GENERAL: Yes normal exam except as noted and No edema Neuro: COMMON NORMALS: moves all extremities SENSORIUM/ORIENTATION: Yes alert and No Orientation impaired Psych: COMMON NORMALS: mental status grossly normal and Normal thought process present THOUGHT PROCESS: Normal thought process present Course Vital Signs: Vital signs: Vital Signs Temperature 98.5 F 07/02/22 11:42 Pulse Rate 72 07/02/22 11:42 Respiratory Rate 17 07/02/22 11:42 Blood Pressure 154/69 07/02/22 13:55 Pulse Oximetry 98 07/02/22 11:42 Oxygen Delivery Me thod 07/02/22 11:42 Oxygen Flow Rate 0 06/30/22 20:59 Fraction of Inspir ed Oxygen 30 07/02/22 12:00 MDM - SOB/Dyspnea Medical Decision Making 71-year-old lady with recent hospitalization for MN presenting for respiratory distress. Per EMS report patient hypoxemic on room air and mildly improved with supplemental oxygen. Exam as above. EKG notable for sinus rhythm, left axis deviation, nonspecific ST segment abnormalities, normal intervals with borderline interventricular conduction delay, no STEMI. In review of prior recent EKGs this is similar. Leukocytosis present, normal hemoglobin, normal platelet count. Metabolic panel with normal electrolytes, CKD similar to prior. Elevated baseline troponin with negative range delta. BNP is elevated. Urinalysis without evidence of infection and rapid viral testing is negative. Chest x-ray with increased interstitial lung markings concerning for pulmonary edema and pneumonia. No evidence of pneumothorax. Somewhat increased markings compared to prior. During ED course patient with Lasix, antibiotics, and RT treatment albuterol. Upon reassessment patient mildly improved though still required supplemental oxygen. Most likely etiology of patient symptoms is multifactorial including pneumonia exacerbation of underlying COPD and acute on chronic heart failure. Given degree of symptoms including hypoxemia prior to arrival and supplemental oxygen requirement the patient requires inpatient mission for further treatment and management. The results of ED evaluation were discussed with the patient including plan for admission due to requirement for level of care not available if discharged to prevent significant worsening/deterioration. Patient agreeable with plan. Discussed with hospitalist service who was agreeable to admit patient. Medical Records I reviewed the patient's medical records. Lab Data I reviewed the patient's lab results. 06/25/22 02:30 06/25/22 02:30 Labs/Radiology: Radiology Impressions Chest X-Ray 06/29/22 13:35 IMPRESSION: 1. Cardiac enlargement with pulmonary vascular congestion suggesting some degree of mild CHF. 2. Airspace infiltrate in the right lung base suspicious for superimposed pneumonia. Renal Ultrasound 06/29/22 15:00 IMPRESSION: 1. Moderate atrophy RIGHT kidney is new since 2009. Kidney has decreased in size also since the CT of 08/25/2019. Maximum length at that time was 9.1 cm. 2. Bilateral renal cysts. Unchanged in size since 2019. 3. Small RIGHT pleural effusion. Laboratory Results WBC 16.5 10^3/uL (4.0-10.0) H 06/24/22 07:52 RBC 3.99 10^6/uL (4.1-5.3) L 06/24/22 07:52 Hgb 12.3 g/dL (11.5-15.3) 06/24/22 07:52 Hct 38.2 % (37.0-47.0) 06/24/22 07:52 MCV 95.7 fl (81-99) 06/24/22 07:52 MCH 30.8 pg (28.0-34.0) 06/24/22 07:52 MCHC 32.2 g/dL (30.0-36.0) 06/24/22 07:52 RDW 13.9 % (12.1-15.1) 06/24/22 07:52 Plt Count 376 10^3/cmm (130-400) D 06/24/22 07:52 MPV 10.2 fL (7.4-10.4) 06/24/22 07:52 Neut % (Auto) 50.0 % 06/24/22 07:52 Lymph % (Auto) 39.9 % 06/24/22 07:52 Rowan % (Auto) 6.4 % 06/24/22 07:52 Eos % (Auto) 2.8 % 06/24/22 07:52 Baso % (Auto) 0.4 % 06/24/22 07:52 Neut # (Auto) 8.24 10^3/uL (1.8-7.7) H 06/24/22 07:52 Lymph # (Auto) 6.6 10^3/uL (0.8-4.8) H 06/24/22 07:52 Rowan # (Auto) 1.1 10^3/uL (0.2-0.9) H 06/24/22 07:52 Eos # (Auto) 0.5 10^3/uL (0.0-0.8) 06/24/22 07:52 Baso # (Auto) 0.1 10^3/uL (0.0-0.1) 06/24/22 07:52 Nucleated RBC % (auto) 0 % 06/24/22 07:52 Nucleated RBCs # 0.0 /100WBC 06/24/22 07:52 Sodium 141 mmol/L (136-145) 06/24/22 07:52 Potassium 4.6 mmol/L (3.5-5.1) 06/24/22 07:52 Chloride 107 mmol/L (98-107) 06/24/22 07:52 Carbon Dioxide 22 mmol/L (22-29) 06/24/22 07:52 Anion Gap 16.6 (5-19) 06/24/22 07:52 BUN 31 mg/dL (8-23) H 06/24/22 07:52 Creatinine 1.8 mg/dL (0.5-0.9) H 06/24/22 07:52 GFR Calculation Not Reportable 06/24/22 07:52 Glucose 228 mg/dL (65-115) H 06/24/22 07:52 Calculated Osmolality 306 mOsm/kg (285-295) H 06/24/22 07:52 Calcium 9.4 mg/dL (8.5-10.5) 06/24/22 07:52 Total Bilirubin 0.2 mg/dL (0.15-1.2) 06/24/22 07:52 AST 57 U/L (0-32) H 06/24/22 07:52 ALT 29 U/L (0-33) 06/24/22 07:52 Alkaline Phosphatase 104 U/L (35-105) 06/24/22 07:52 Troponin T Baseline 122 ng/L (0-10) H* 06/24/22 07:52 Troponin T 120 Minute 116.7 ng/L (0-10) H 06/24/22 10:03 Delta Troponin T -5.3 ABS# (0-10) L 06/24/22 10:03 Troponin T Hi Sens 6Hr 111.1 ng/L (0-10) H 06/24/22 14:04 Troponin T Hi Sens 6Hr Delta -10.9 ng/L (0-12) L 06/24/22 14:04 C-Reactive Protein 4.4 mg/L (0.0-4.9) 06/24/22 07:52 NT-Pro-B Natriuret Pep 47617 pg/mL (0-125) H 06/24/22 07:52 Total Protein 6.7 g/dL (6.6-8.7) 06/24/22 07:52 Albumin 3.5 g/dL (3.5-5.2) 06/24/22 07:52 Globulin 3.2 g/dL (1.3-4.6) 06/24/22 07:52 Procalcitonin 0.19 ng/mL (0-0.5) 06/24/22 07:52 Urine Color Yellow (Yellow) 06/24/22 09:37 Urine Appearance Clear (CLEAR) 06/24/22 09:37 Urine pH 6 (5-7) 06/24/22 09:37 Ur Specific [place] 1.015 (1.005-1.030) 06/24/22 09:37 Urine Protein 3+ (Negative) H 06/24/22 09:37 Urine Glucose (UA) 2+ (Normal) H 06/24/22 09:37 Urine Ketones Negative (Negative) 06/24/22 09:37 Urine Blood Neg (Negative) 06/24/22 09:37 Urine Nitrate Negative (Negative) 06/24/22 09:37 Urine Bilirubin Neg (Negative) 06/24/22 09:37 Urine Urobilinogen Neg mg/dL (Negative) 06/24/22 09:37 Ur Leukocyte Esterase Negative (Negative) 06/24/22 09:37 Urine RBC Rare /hpf (0-2) 06/24/22 09:37 Urine WBC Rare /hpf (0-5) 06/24/22 09:37 Ur Squamous Epith Cells Rare /hpf (0-5) 06/24/22 09:37 Amorphous Sediment Not Reportable 06/24/22 09:37 Urine Bacteria None /hpf (NONE) 06/24/22 09:37 Urine Mucus Trace /hpf 06/24/22 09:37 Influenza Type A Ag negative (Negative) 06/24/22 07:52 Influenza Type B Ag negative (Negative) 06/24/22 07:52 SARS-CoV-2 Ag (Rapid) negative (Negative) 06/24/22 07:52 Discharge Plan Discharge Patient Disposition: Placed in Observation Admit Provider: Geoff Dinero Clinical Impression: Acute exacerbation of CHF (congestive heart failure), Community acquired pneumonia, Acute exacerbation of chronic obstructive airways disease Discharge Diet: Cardiac and Diabetic Discharge Activity: Resume usual activity and Increase activity as tolerated Coding Level of Care Code ED [employer] Teacher for Chg Fwd Exam Comprehensive
--- NOTE | 2022-06-24 07:45 | XRR_ITS ---
PROCEDURE INFORMATION: Exam: XR Chest Exam date and time: 06/24/2022 7:55 AM Age: 71 years old Clinical indication: Shortness of breath; Additional info: SOB TECHNIQUE: Imaging protocol: Radiologic exam of the chest. Views: 1 view. COMPARISON: CR XR chest 1V portable [id number] 06/18/2022 2:45 PM FINDINGS: Lungs: Low lung volumes. There is increased interstitial markings and haziness of the lungs, which in the setting of cardiomegaly is consistent with pulmonary congestion. Pneumonia should be excluded clinically. Pleural spaces: Unremarkable. No pleural effusion. No pneumothorax. Heart/Mediastinum: Stable cardiomediastinal silhouette. The patient is status post CABG. Bones/joints: Median sternotomy changes seen. Degenerative changes of the spine seen. XR/XR chest 1V portable [id number] IMPRESSION: Imaging findings suggestive of pulmonary congestion. Pneumonia should be excluded clinically.
--- NOTE | 2022-06-24 07:53 | ECG_ITS ---
[facility] Test Date: 2022-06-24 Pat Name: Romi Yuan Department: Room: Gender: Female Irrigation Technician: : 1950 Requested By: Florin Keyes Order Number: [id number] Tessa MD: Nohemy Christianson M.D. Measurements Intervals [place] Rate: 97 P: 63 NV: 162 QRS: -17 QRSD: 114 T: 92 QT: 357 QTc: 454 Interpretive Statements SINUS RHYTHM WITH OCCASIONAL SUPRAVENTRICULAR PREMATURE COMPLEXES POSSIBLE LEFT ATRIAL ENLARGEMENT [-0.1mV P-WAVE IN V1/V2] PROBABLE INFERIOR MYOCARDIAL INFARCTION , OF INDETERMINATE AGE [35 ms Q WAVE IN II/aVF] Compared to ECG 06/18/2022 20:58:52 Myocardial infarct finding now present Sinus tachycardia no longer present Ventricular premature complex(es) no longer present Left-axis deviation no longer present Electronically Signed On 06-25-2022 10:07:35 FIRE ASSISTANT by Nohemy Christianson M.D. [id number]
[2022-06-24] MEDS: albuterol 2.5 mg/3 mL Neb INHALATION (08:07)
[2022-06-24 08:15] LABS: Basophils # 0.1 10^3/uL (0.0-0.1); Basophils % 0.4 %; Eosinophils # 0.5 10^3/uL (0.0-0.8); Eosinophils % 2.8 %; Hematocrit 38.2 % (37.0-47.0); Hemoglobin 12.3 g/dL (11.5-15.3); Lymphocytes # 6.6 10^3/uL (0.8-4.8); Lymphocytes % 39.9 %; Mean Corpuscular HGB Conc 32.2 g/dL (30.0-36.0); Mean Corpuscular Hemoglobin 30.8 pg (28.0-34.0); Mean Corpuscular Volume 95.7 fl (81-99); Mean Platelet Volume 10.2 fL (7.4-10.4); Monocytes # 1.1 10^3/uL (0.2-0.9); Monocytes % 6.4 %; Neutrophils # 8.24 10^3/uL (1.8-7.7); Nucleated Red Blood Cells % 0 %; Platelet Count 376 10^3/cmm (130-400); Red Blood Count 3.99 10^6/uL (4.1-5.3); Red Cell Distribution Width 13.9 % (12.1-15.1); White Blood Count 16.5 10^3/uL (4.0-10.0)
[2022-06-24 08:49] LABS: SARS Covid-2 Antigen negative (Negative)
[2022-06-24 08:50] LABS: Influenza A by IFA negative (Negative); Influenza B by IFA negative (Negative)
[2022-06-24 08:51] LABS: Alanine Aminotransferase 29 U/L (0-33); Albumin Level 3.5 g/dL (3.5-5.2); Alkaline Phosphatase 104 U/L (35-105); Anion Gap 16.6 (5-19); Aspartate Amino Transferase 57 U/L (0-32); Blood Urea Nitrogen 31 mg/dL (8-23); Calcium 9.4 mg/dL (8.5-10.5); Carbon Dioxide 22 mmol/L (22-29); Chloride 107 mmol/L (98-107); Globulin 3.2 g/dL (1.3-4.6); Glucose 228 mg/dL (65-115); Osmolality Calculated 306 mOsm/kg (285-295); Potassium 4.6 mmol/L (3.5-5.1); Sodium 141 mmol/L (136-145); Total Bilirubin 0.2 mg/dL (0.15-1.2); Total Protein 6.7 g/dL (6.6-8.7)
[2022-06-24 09:00] LABS: C Reactive Protein 4.4 mg/L (0.0-4.9); Troponin(5th) Baseline 122 ng/L (0-10)
[2022-06-24 09:04] LABS: Procalcitonin 0.19 ng/mL (0-0.5)
--- NOTE | 2022-06-24 09:45 | ECG_ITS ---
[facility] Test Date: 2022-06-24 Pat Name: Romi Yuan Department: Room: Gender: Female Aquatic Performer: : 1950 Requested By: Florin Keyes Order Number: [id number] Tessa MD: Nohemy Christianson M.D. Measurements Intervals [place] Rate: 94 P: 38 MS: 173 QRS: -42 QRSD: 108 T: 106 QT: 376 QTc: 470 Interpretive Statements SINUS RHYTHM POSSIBLE LEFT ATRIAL ENLARGEMENT [-0.1mV P-WAVE IN V1/V2] LEFT AXIS DEVIATION [QRS AXIS < -30] PROBABLE INFERIOR MYOCARDIAL INFARCTION , OF INDETERMINATE AGE [35 ms Q WAVE IN II/aVF] Compared to ECG 06/24/2022 07:53:33 Left-axis deviation now present Myocardial infarct finding still present Electronically Signed On 06-25-2022 10:13:10 WATCHMAKING TEACHER by Nohemy Christianson M.D. [id number]
[2022-06-24 10:28] LABS: Troponin 5 2HR Delta -5.3 ABS# (0-10)
[2022-06-24 10:30] LABS: Troponin 5 2HR 116.7 ng/L (0-10)
[2022-06-24] MEDS: levofloxacin-dextrose 5 % 750 MG/150 ML PREMIX 100 MG IV (11:11)
[2022-06-24] MEDS: FUROsemide 10 mg/mL SDV 2mL 20 MG IVP (11:11)
--- NOTE | 2022-06-24 13:12 | PM.HP ---
Providers/Chief Complaint Primary Care Provider: Jocelyne Kirby Chief Complaint: RESP. DISTRESS History of Present Illness 71 year old female with past medical history of coronary artery disease S/P two previous bypass surgeries where three vessels were bypassed easch time. Her surgeries were in 1994 and in 2004. She had LOVETT to the LAD, saphenous venous graft to the diagonal branch of the left anterior descending and saphenous vein graft to the right coronary artery. She has also had multiple stents. Her last cardiac cath was at [facility] with Dr. Fiore in 2019 where only patent bypass was LOVETT-LAD. SVG to RCA and SVG to LCx were occluded. Medical management was recommended. Hypertension diabetes, COPD not on home oxygen, hypothyroidism, heart failure with reduced ejection fraction, CKD stage III with baseline serum creatinine around 1.7-2, history of COVID-19 pneumonia, recent NSTEMI, was discharged yesterday after being managed for NSTEMI: On medical management, with close cardiology follow-up, as the patient was chest pain-free and denied any Worsening shortness of breath, prior to discharge, she was saturating well on room air, denied any significant pain with ambulation, came in today after acute onset of worsening shortness of breath Started today this morning, left-sided chest pressure, she denied any, cough abdominal pain palpitation diaphoresis. Upon arrival in the ER: X-ray chest showed: Pulmonary vascular congestion, EKG: Sinus rhythm, no acute ST-T wave changes, old inferior wall NV. Pertinent labs: WBC 16.5, H&H 12/38 , PLT : 376 , serum sodium 141 serum potassium 4.6, BUN 31 serum creatinine 1.8, Troponin trend: 122-116-111 proBNP 90134 Influenza and rapid COVID-negative Review of Systems General: Reports: 10 or more systems reviewed and unremarkable except in HPI and below Const: Denies: fever(s), chills, body aches, change in appetite or diaphoresis Card: Reports: dyspnea on exertion and orthopnea; Denies: palpitations, edema, swelling of feet/ankles or leg pain with exertion Resp: Reports: dyspnea; Denies: productive cough, wheezing or pain on inspiration GI: Denies: abdominal pain, nausea, vomiting, diarrhea or constipation : Denies: flank pain Musc: Denies: back pain, extremity pain or extremity swelling Neuro: Denies: headache(s), difficulty walking or confusion Medications/Allergies Home Medications Medication Instructions Recorded Confirmed Last Taken Type isosorbide mononitrate 60 mg 60 mg PO BID 07/20/19 06/24/22 06/23/22 History tablet,extended release 24 hr tizanidine 4 mg capsule (Zanaflex) 4 mg PO DAILY PRN MUSCLE SPASMS 07/20/19 06/24/22 06/23/22 History umeclidinium 62.5 mcg-vilanterol 1 inh inhalation DAILY 07/20/19 06/24/22 06/23/22 History 25 mcg/actuation powdr for inhalation (Anoro Ellipta) venlafaxine 150 mg 150 mg PO DAILY 07/20/19 06/24/22 06/23/22 History capsule,extended release 24 hr (Effexor XR) nitroglycerin 0.4 mg sublingual 0.4 mg sublingual PRN PRN CHEST 10/19/19 06/24/22 Unknown History tablet PAINS amlodipine 10 mg tablet 10 mg PO DAILY #90 tabs 01/16/20 06/24/22 06/23/22 Rx cholecalciferol (vitamin D3) 125 125 mcg PO Q7D 02/21/20 06/24/22 07/02/21 09:00 History mcg (5,000 unit) capsule insulin aspart U-100 100 unit/mL 6 unit SUBCUT QID 02/21/20 06/24/22 06/09/22 19:00 History subcutaneous solution (Novolog U-100 Insulin aspart) methimazole 5 mg tablet 5 mg PO DAILY #30 tabs 03/11/20 06/24/22 06/23/22 Rx blood sugar diagnostic (Accu-Chek #120 ea 06/23/21 06/24/22 Unknown Rx Ana M Plus test strips) aspirin 81 mg tablet,delayed 81 mg PO DAILY #60 tabs 06/15/22 06/24/22 06/23/22 Rx release (Adult Aspirin Regimen) clopidogrel 75 mg tablet (Plavix) 75 mg PO DAILY #60 tabs 06/15/22 06/24/22 06/23/22 Rx furosemide 20 mg tablet (Lasix) 20 mg PO DAILY PRN swelling #60 06/15/22 06/24/22 06/09/22 09:00 Rx tabs acitretin 10 mg capsule 10 mg PO DAILY 06/19/22 06/24/22 06/23/22 History atorvastatin 40 mg tablet 40 mg PO BEDTIME 06/19/22 06/24/22 06/23/22 History nystatin 100,000 unit/mL oral 100,000 unit PO DAILY 06/19/22 06/24/22 Unknown History suspension venlafaxine 75 mg capsule,extended 75 mg PO DAILY 06/19/22 06/24/22 06/23/22 History release 24 hr docusate sodium 100 mg capsule 100 mg PO BID PRN Constipation 06/24/22 06/24/22 Unknown History (Colace) hydralazine 25 mg tablet 25 mg PO BID 06/24/22 06/24/22 06/23/22 History metoprolol succinate 25 mg 25 mg PO DAILY 06/24/22 06/24/22 06/23/22 History tablet,extended release 24 hr potassium chloride 10 mEq 20 meq PO DAILY 06/24/22 06/24/22 Unknown History tablet,extended release Allergies Allergy/AdvReac Type Severity Reaction Status Date / Time cefuroxime [From Ceftin] Allergy ALGY-Rash Verified 06/24/22 10:16 cephalexin [From Keflex] Allergy ALGY-Rash Verified 06/24/22 10:16 hydroxyzine [From Vistaril] Allergy ALGY-Anaphy Verified 06/24/22 10:16 laxis Penicillins Allergy ALGY-Redness Verified 06/24/22 10:16 of Skin prochlorperazine Allergy ALGY-Anaphy Verified 06/24/22 10:16 [From Compazine] laxis promethazine [From Phenergan] Allergy ALGY-Anaphy Verified 06/24/22 10:16 laxis venom-honey bee Allergy ALGY-Anaphy Verified 06/24/22 10:16 laxis simvastatin [From Zocor] AdvReac ADR-Heartbu Verified 06/24/22 10:16 rn PFSH Acute PFSH: Medical History (Updated 06/24/22 @ 18:10 by Geoff Dinero MD) Acute exacerbation of CHF (congestive heart failure) Acute respiratory failure with hypoxia Anxiety ASHD (arteriosclerotic heart disease) Carotid arterial disease CHF (congestive heart failure) Chronic kidney disease Chronic kidney disease due to diabetes mellitus Colon polyps COPD (chronic obstructive pulmonary disease) Coronary artery disease due to type 2 diabetes mellitus Diabetes mellitus Diabetes type 2, uncontrolled LLOYD (dyspnea on exertion) Dyslipidemia Graves disease History of CVA (cerebrovascular accident) History of myocardial infarction History of skin cancer HTN (hypertension) Hypertensive urgency Hyperthyroidism Insomnia Non-STEMI (non-ST elevated myocardial infarction) NSTEMI (non-ST elevated myocardial infarction) PAD (peripheral artery disease) Pneumonia due to COVID-19 virus Surgical History History of endovascular stent graft for abdominal aortic aneurysm (AAA) Hx of local excision of skin lesion (09/16/20) Left forearm x2 S/P CABG (coronary artery bypass graft) S/P cardiac catheterization S/P cataract surgery S/P cholecystectomy S/P hysterectomy with oophorectomy S/P skin and subcutaneous tissue surgery Status post colonoscopy (09/16/20) Family History Sister Mark's disease Sister No problems noted. Mother No problems noted. Other Anesthesia complication Social History Smoking and tobacco status: former smoker Alcohol intake: current Alcohol intake frequency: holidays/special occasions only Vitals/I&O/Wt Last Vital Signs Temp 98.6 F 06/24/22 07:45 Pulse 94 06/24/22 12:52 Resp 17 06/24/22 12:52 BP 175/100 06/24/22 12:52 Pulse Ox 99 06/24/22 12:52 O2 Del Method 06/24/22 12:52 O2 Flow Rate 4 06/24/22 12:52 06/23/22 06/24/22 06/24/22 22:59 06:59 14:59 Intake Total 150 / 150 Balance 150 / 150 Weight last 48 hrs Weight 78.471 kg Physical Exam Const: COMMON NORMALS: patient oriented x3 HENMT: COMMON NORMALS: normocephalic and atraumatic Resp: OTHER: b/l Crackles present in both lungs [place], minimum b/l wheezing likely cardiac wheezing. Cardio: COMMON NORMALS: regular rate, regular rhythm, S1 normal heart sound present, S2 normal heart sound present, No gallops present (Cardio), No murmurs present (Cardio), No rub (Cardio) and Peripheral pulses 2+ throughout RATE: regular rate RHYTHM: regular rhythm HEART SOUNDS: S1 normal heart sound present and S2 normal heart sound present PERIPHERAL PULSES: Peripheral pulses 2+ throughout GI: COMMON NORMALS: Normal to inspection, nondistended, normoactive bowel sounds present, Soft to palpation, non-tender, No hepatosplenomegaly present and no masses AUSCULTATION: Yes normoactive bowel sounds PALPATION: Yes Soft to palpation and Yes No hepatosplenomegaly present RECTAL EXAM: deferred Extremity: NARRATIVE EXTREMITY EXAM: TRace B/L L/E Pitting edema. Neuro: COMMON NORMALS: patient oriented x3 Data 06/24/22 07:52 06/24/22 07:52 Micro: Microbiology 06/24/22 11:03 Blood Culture - Preliminary Blood SPECIMEN COLLECTED 06/24/22 11:00 Blood Culture - Preliminary Blood SPECIMEN COLLECTED A&P Assessment and plan (1) Acute exacerbation of CHF (congestive heart failure): (2) NSTEMI (non-ST elevated myocardial infarction): (3) Acute exacerbation of chronic obstructive airways disease: (4) Pneumonia: (5) CKD (chronic kidney disease) stage 3, GFR 30-59 ml/min: (6) HTN (hypertension): (7) Hyperthyroidism: (8) Diabetes mellitus: (9) Acute respiratory failure with hypoxia: Plan 71 year old female with past medical history of coronary artery disease S/P two previous bypass surgeries where three vessels were bypassed easch time. Her surgeries were in 1994 and in 2004. She had LOVETT to the LAD, saphenous venous graft to the diagonal branch of the left anterior descending and saphenous vein graft to the right coronary artery. She has also had multiple stents. Her last cardiac cath was at [facility] with Dr. Fiore in 2019 where only patent bypass was LOVETT-LAD. SVG to RCA and SVG to LCx were occluded. Medical management was recommended. Hypertension diabetes, COPD not on home oxygen, hypothyroidism, heart failure with reduced ejection fraction, CKD stage III with baseline serum creatinine around 1.7-2, history of COVID-19 pneumonia, recent NSTEMI, was discharged yesterday after being managed for NSTEMI: On medical management, with close cardiology follow-up, as the patient was chest pain-free and denied any Worsening shortness of breath, prior to discharge, she was saturating well on room air, denied any significant pain with ambulation, came in today after acute onset of worsening shortness of breath Started today this morning, left-sided chest pressure, she denied any, cough abdominal pain palpitation diaphoresis. Assessment: NSTEMI: Patient is coming with recurrent similar presentation, in the recent past.Lately she had attributed her shortness of breath to COVID. But given her underlying risk factors, and significant history of coronary artery disease, cardiac cause needs to be worked up. Patient has recent 2D echo done results appreciated: LV systolic function is moderately reduced with EF 35 to 40%.? Severe hypokinesis of inferior and inferolateral watters are seen.?Grade 1 diastolic dysfunction,Mildly dilated left atrium,?Mild to moderate mitral regurgitation,?Mild tricuspid regurgitation. Continue aspirin Plavix statin beta-lexy, sublingual nitro as needed, Imdur hydralazine. Cardiology on board Ac on chronic decompensated heart failure with reduced ejection fraction: X-ray chest is suggestive of pulmonary vascular congestion Trace bilateral lower extremity pitting edema Continue Lasix 40 IV daily Monitor intake output charting Monitor daily weight Monitor electrolytes Telemetry monitoring Possible pneumonia: Though less likely. X-ray chest is showing of possible infiltrates Procalcitonin is normal Follow sputum gram stain and culture Empirically on cefepime CKD stage III: Currently serum creatinine is at baseline Monitor BMP Avoid nephrotoxic's Strict intake output charting Low threshold for nephrology involvement, particularly so if the patient end up undergoing cardiac cath. COPD: Patient has minimum wheezing likely cardiac wheezing due to heart failure. Continue DuoNebs Solu-Medrol 40 twice daily Supplemental oxygen as needed Monitor x-ray chest as needed Monitor ABG as needed History of extensive coronary artery disease: Plan as above Diabetes: SSI Diabetic diet Monitor fingerstick glucose Hypertensive urgency: Has received hydralazine 10 mg IV one-time dose in the ER Continue hydralazine 25 mg TID, Imdur 60 twice daily, amlodipine 10 CODE STATUS: Full code DVT prophylaxis on subcu heparin Attestations Medical Necessity Statement*: Patient is to be in hospital management NSTEMI. Anticipated length of stay greater than 2 midnights. Time Spent in Patient Care: Greater than 35 minutes (>than 50% of time spent in counselling and/or direct pt care on unit). Critical Care Time: The high probability of a clinically significant, sudden or life threatening deterioration of the patient's [] system(s) required my full and direct attention, intervention and personal management. The critical care time is as shown. This time is in addition to time spent performing any reported procedures but includes the following: [x] Data and vital sign review and interpretation [x] Patient assessment, examination and intervention [x] Documentation [x] Medication orders and management Critical Care Time (min): 60 Coding Level of Care Code Acute Code for Chg Fwd Exam Expanded Problem Focused Diagnoses Acute exacerbation of CHF (congestive heart failure) I50.9 NSTEMI (non-ST elevated myocardial infarction) I21.4 Acute exacerbation of chronic obstructive airways disease J44.1 Pneumonia J18.9 CKD (chronic kidney disease) stage 3, GFR 30-59 ml/min N18.30 HTN (hypertension) I10 Hyperthyroidism E05.90 Diabetes mellitus E11.9 Acute respiratory failure with hypoxia J96.01
[2022-06-24] MEDS: heparin 5,000 unit/mL INJ 1 mL 5000 UNIT SUBCUT (13:17)
[2022-06-24] MEDS: hyDRALAzine 20 mg/mL INJ 1 mL 10 MG IVP (13:17)
[2022-06-24] MEDS: ipratropium-albuterol 3 mL Neb INHALATION ×2 (14:00→19:47)
--- NOTE | 2022-06-24 14:01 | ECG_ITS ---
[facility] Test Date: 2022-06-24 Pat Name: Romi Yuan Department: Room: Gender: Female Lawyers: : 1950 Requested By: Florin Keyes Order Number: [id number] Tessa MD: Nohemy Christianson M.D. Measurements Intervals [place] Rate: 94 P: 68 [place]: 176 QRS: -41 QRSD: 108 T: 102 QT: 369 QTc: 463 Interpretive Statements SINUS RHYTHM POSSIBLE LEFT ATRIAL ENLARGEMENT [-0.1mV P-WAVE IN V1/V2] LEFT AXIS DEVIATION [QRS AXIS < -30] POSSIBLE INFERIOR MYOCARDIAL INFARCTION , OF INDETERMINATE AGE [30 ms Q WAVE IN II/aVF] Compared to ECG 06/24/2022 10:04:40 No significant changes Electronically Signed On 06-25-2022 10:11:19 LAN SPECIALIST by Nohemy Christianson M.D. [id number]
[2022-06-24 14:37] LABS: Troponin 5 6HR Delta -10.9 ng/L (0-12)
[2022-06-24 14:38] LABS: Troponin 5 6HR 111.1 ng/L (0-10)
[2022-06-24 15:44] LABS: Urine Appearance Clear (CLEAR); Urine Color Yellow (Yellow); pH Urine 6 (5-7)
[2022-06-24 15:45] LABS: Bilirubin Urine Neg (Negative); Blood Urine Neg (Negative); Glucose Urine UA 2+ (Normal); Ketones Urine Negative (Negative); Leukocyte Esterase Urine Negative (Negative); Nitrate Urine Negative (Negative); Protein Urine 3+ (Negative); RBC Urine RARE /hpf (0-2); Specific Gravity, Urine 1.015 (1.005-1.030); Urobilinogen Urine Neg (Negative); WBC Urine RARE /hpf (0-5)
[2022-06-24 15:46] LABS: Add Urine Culture? No; Mucus Urine TRACE /hpf; Squamous Epithelial Cell Urine RARE /hpf (0-5)
[2022-06-24 17:37] LABS: Glucose Point of Care 280 mg/dL (70-110)
[2022-06-24] MEDS: meropenem 500 MG in sodium chloride 0.9% (plus) 50 ML 100 MG IV (17:39)
[2022-06-24] MEDS: hyDRALAzine 25 mg Tablet PO (17:40)
[2022-06-24] MEDS: insulin lispro 100 unit/1 mL SUBCUT ×2 (17:40→21:07)
[2022-06-24] MEDS: isosorbide mononitrate ER 60 mg Tablet PO (17:40)
--- NOTE | 2022-06-24 17:59 | PC.NURSE ---
Patient arrived to ICU at approximately 1710, patient is alert and orientated. No s/s of distress. Eating supper on side of bed.
--- NOTE | 2022-06-24 18:45 | PM.CONSULT ---
Providers/Reason For Consult Consulting Physician/Specialty*: Tristin Goldstein MD/ Cardiology Reason for Consult*: Recurrent pulmonary edema/unstable angina Requesting Physician: Dr Dinero Attending Physician: Geoff Dinero MD Primary Care Provider: Jocelyne Kirby History of Present Illness History of Present Illness Romi Yuan is a 71 year old female with past medical history of CAD s/p 2 CABG surgeries last one was in 2004. Last cardiac catheterization in 2019 showed patent LOVETT to LAD. SVG to RCA and SVG to diagonal artery were occluded. This is her fourth admission within the last 1 month with recurrent pulmonary edema. She recently had COVID infection and had an NSTEMI as well. She has presented this time to the hospital with worsening shortness of breath and chest pressure. Still having on and off chest discomfort episodes. Troponins are downtrending now.NT Pro BNP is elevated. She has CKD and on her previous admissions medical therapy was performed. EKG shows normal sinus rhythm with nonspecific ST-T wave changes. Review of Systems General: Reports: 10 or more systems reviewed and unremarkable except in HPI and below Const: Denies: fever(s), chills, body aches, change in appetite or diaphoresis Card: Reports: chest pain, dyspnea on exertion and orthopnea; Denies: palpitations, edema, swelling of feet/ankles or leg pain with exertion Resp: Reports: dyspnea; Denies: productive cough, wheezing or pain on inspiration GI: Denies: abdominal pain, nausea, vomiting, diarrhea or constipation : Denies: flank pain Musc: Denies: back pain, extremity pain or extremity swelling Neuro: Denies: headache(s), difficulty walking or confusion Medications/Allergies Home Medications Medication Instructions Recorded Confirmed Last Taken Type isosorbide mononitrate 60 mg 60 mg PO BID 07/20/19 06/24/22 06/23/22 History tablet,extended release 24 hr tizanidine 4 mg capsule (Zanaflex) 4 mg PO DAILY PRN MUSCLE SPASMS 07/20/19 06/24/22 06/23/22 History umeclidinium 62.5 mcg-vilanterol 1 inh inhalation DAILY 07/20/19 06/24/22 06/23/22 History 25 mcg/actuation powdr for inhalation (Anoro Ellipta) venlafaxine 150 mg 150 mg PO DAILY 07/20/19 06/24/22 06/23/22 History capsule,extended release 24 hr (Effexor XR) nitroglycerin 0.4 mg sublingual 0.4 mg sublingual PRN PRN CHEST 10/19/19 06/24/22 Unknown History tablet PAINS amlodipine 10 mg tablet 10 mg PO DAILY #90 tabs 01/16/20 06/24/22 06/23/22 Rx cholecalciferol (vitamin D3) 125 125 mcg PO Q7D 02/21/20 06/24/22 07/02/21 09:00 History mcg (5,000 unit) capsule insulin aspart U-100 100 unit/mL 6 unit SUBCUT QID 02/21/20 06/24/22 06/09/22 19:00 History subcutaneous solution (Novolog U-100 Insulin aspart) methimazole 5 mg tablet 5 mg PO DAILY #30 tabs 03/11/20 06/24/22 06/23/22 Rx blood sugar diagnostic (Accu-Chek #120 ea 06/23/21 06/24/22 Unknown Rx Ana M Plus test strips) aspirin 81 mg tablet,delayed 81 mg PO DAILY #60 tabs 06/15/22 06/24/22 06/23/22 Rx release (Adult Aspirin Regimen) clopidogrel 75 mg tablet (Plavix) 75 mg PO DAILY #60 tabs 06/15/22 06/24/22 06/23/22 Rx furosemide 20 mg tablet (Lasix) 20 mg PO DAILY PRN swelling #60 06/15/22 06/24/22 06/09/22 09:00 Rx tabs acitretin 10 mg capsule 10 mg PO DAILY 06/19/22 06/24/22 06/23/22 History atorvastatin 40 mg tablet 40 mg PO BEDTIME 06/19/22 06/24/22 06/23/22 History nystatin 100,000 unit/mL oral 100,000 unit PO DAILY 06/19/22 06/24/22 Unknown History suspension venlafaxine 75 mg capsule,extended 75 mg PO DAILY 06/19/22 06/24/22 06/23/22 History release 24 hr docusate sodium 100 mg capsule 100 mg PO BID PRN Constipation 06/24/22 06/24/22 Unknown History (Colace) hydralazine 25 mg tablet 25 mg PO BID 06/24/22 06/24/22 06/23/22 History metoprolol succinate 25 mg 25 mg PO DAILY 06/24/22 06/24/22 06/23/22 History tablet,extended release 24 hr potassium chloride 10 mEq 20 meq PO DAILY 06/24/22 06/24/22 Unknown History tablet,extended release Allergies Allergy/AdvReac Type Severity Reaction Status Date / Time cefuroxime [From Ceftin] Allergy ALGY-Rash Verified 06/24/22 10:16 cephalexin [From Keflex] Allergy ALGY-Rash Verified 06/24/22 10:16 hydroxyzine [From Vistaril] Allergy ALGY-Anaphy Verified 06/24/22 10:16 laxis Penicillins Allergy ALGY-Redness Verified 06/24/22 10:16 of Skin prochlorperazine Allergy ALGY-Anaphy Verified 06/24/22 10:16 [From Compazine] laxis promethazine [From Phenergan] Allergy ALGY-Anaphy Verified 06/24/22 10:16 laxis venom-honey bee Allergy ALGY-Anaphy Verified 06/24/22 10:16 laxis simvastatin [From Zocor] AdvReac ADR-Heartbu Verified 06/24/22 10:16 rn Current Medications Generic Name Dose Route Start Last Admin Trade Name Freq PRN Reason Stop Dose Admin Albuterol/Ipratropium 3 ml 06/24/22 14:00 06/24/22 14:00 Ipratropium-Albuterol 3 Ml Neb INHALATION 3 ml Q6H.RESP YASMANI Administration Heparin Sodium (Porcine) 5,000 unit 06/24/22 13:00 06/24/22 13:17 Heparin 5,000 Unit/Ml Inj 1 Ml SUBCUT 5,000 unit Q12H YASMANI Administration Hydralazine HCl 25 mg 06/24/22 21:00 06/24/22 18:38 Hydralazine 25 Mg Tablet PO Not Given TID YASMANI Meropenem 500 mg/ Sodium 50 mls @ 100 mls/hr 06/24/22 18:00 06/24/22 18:12 Chloride IV Infused Q12H YASMANI Infusion Insulin Human Lispro 0 unit 06/24/22 18:00 06/24/22 17:40 Insulin Lispro 100 Unit/1 Ml SUBCUT 1 unit WM&BEDTIME YASMANI Administration Protocol Isosorbide Mononitrate 60 mg 06/24/22 18:00 06/24/22 17:40 Isosorbide Mononitrate Er 60 Mg Tablet PO 60 mg BID YASMANI Administration Methylprednisolone Sodium Succinate 40 mg 06/24/22 18:00 06/24/22 17:40 Methylprednisolone Sod Succ 40 Mg/Ml Inj IVP 40 mg BID YASMANI Administration PFSH Acute PFSH: Medical History Acute exacerbation of CHF (congestive heart failure) Acute respiratory failure with hypoxia Anxiety ASHD (arteriosclerotic heart disease) Carotid arterial disease CHF (congestive heart failure) Chronic kidney disease Chronic kidney disease due to diabetes mellitus Colon polyps COPD (chronic obstructive pulmonary disease) Coronary artery disease due to type 2 diabetes mellitus Diabetes mellitus Diabetes type 2, uncontrolled LLOYD (dyspnea on exertion) Dyslipidemia Graves disease History of CVA (cerebrovascular accident) History of myocardial infarction History of skin cancer HTN (hypertension) Hypertensive urgency Hyperthyroidism Insomnia Non-STEMI (non-ST elevated myocardial infarction) NSTEMI (non-ST elevated myocardial infarction) PAD (peripheral artery disease) Pneumonia due to COVID-19 virus Surgical History History of endovascular stent graft for abdominal aortic aneurysm (AAA) Hx of local excision of skin lesion (09/16/20) Left forearm x2 S/P CABG (coronary artery bypass graft) S/P cardiac catheterization S/P cataract surgery S/P cholecystectomy S/P hysterectomy with oophorectomy S/P skin and subcutaneous tissue surgery Status post colonoscopy (09/16/20) Family History Sister Mark's disease Sister No problems noted. Mother No problems noted. Other Anesthesia complication Social History Smoking and tobacco status: former smoker Alcohol intake: current Alcohol intake frequency: holidays/special occasions only Vitals/I&O/Wt Last Vital Signs Temp 98.6 F 06/24/22 07:45 Pulse 93 06/24/22 17:00 Resp 18 06/24/22 17:00 BP 188/85 06/24/22 17:00 Pulse Ox 99 06/24/22 17:00 O2 Del Method 06/24/22 17:20 O2 Flow Rate 2 06/24/22 15:47 06/24/22 06/24/22 06/24/22 06:59 14:59 22:59 Intake Total 150 / 150 410 / 560 Output Total 350 / 350 Balance 150 / 150 60 / 210 Weight last 48 hrs Weight 173 lb Physical Exam Narrative: GENERAL: Patient is alert, awake and oriented x3. [] NECK: No jugular vein distension. [] HEENT: No cyanosis. No icterus. No pallor. [] HEART: Regular S1 and S2. No murmur, rub or gallop. [] LUNGS: Diminished breath sounds bilaterally, has mild crackles CENTRAL NERVOUS SYSTEM: Grossly nonfocal. [] EXTREMITIES: Lower extremities with 1+ edema bilaterally. Data 06/24/22 07:52 06/24/22 07:52 Micro: Microbiology 06/24/22 09:37 Bacterial Antigens - Final Urine,Voided 06/24/22 09:37 Legionella Urinary Antigen - Final Urine Catheterized 06/24/22 11:03 Blood Culture - Preliminary Blood SPECIMEN COLLECTED 06/24/22 11:00 Blood Culture - Preliminary Blood SPECIMEN COLLECTED A&P Assessment and plan (1) Acute respiratory failure with hypoxia: (2) Diabetes mellitus: (3) Hyperthyroidism: (4) HTN (hypertension): (5) CKD (chronic kidney disease) stage 3, GFR 30-59 ml/min: (6) Acute exacerbation of CHF (congestive heart failure): Plan Patient has had multiple admissions during the last 1 month for recurrent pulmonary edema/NSTEMI episodes. Previously she was treated medically given her high risk of renal dysfunction progression. However she has presented again with similar symptoms and on and off chest pressure. After detailed discussion with patient decision has been made to proceed with coronary angiogram. She understands the risk of complications including renal function worsening/need for permanent dialysis. N.p.o. past midnight. Continue aspirin and Plavix Thank you for involving us with care of this patient. We will continue to follow. Please call with questions Consult Attestations Medical Necessity Statement: Care expected to cross 2 midnights. Coding Level of Care Code Acute Code for [facility] Diagnoses Acute respiratory failure with hypoxia J96.01 Diabetes mellitus E11.9 Hyperthyroidism E05.90 HTN (hypertension) I10 CKD (chronic kidney disease) stage 3, GFR 30-59 ml/min N18.30 Acute exacerbation of CHF (congestive heart failure) I50.9
[2022-06-24 20:57] LABS: Glucose Point of Care 310 mg/dL (70-110)
[2022-06-24] MEDS: atorvastatin 40 mg Tablet PO (21:06)
[2022-06-24] MEDS: acetaminophen 325 mg Tablet 650 MG PO (22:36)
[2022-06-24] MEDS: tizanidine 4 mg Tablet PO (22:36)
[2022-06-25] VITALS (174 sets, daily range): BP systolic 109–235; BP diastolic 50–144; PULSE 82–146; RESP 10–32; TEMP 36.6; O2SAT 89–100
[2022-06-25] MEDS: heparin 5,000 unit/mL INJ 1 mL 5000 UNIT SUBCUT (01:37)
[2022-06-25] MEDS: ipratropium-albuterol 3 mL Neb INHALATION ×2 (02:44→20:10)
[2022-06-25 04:03] LABS: Basophils % 0.1 %; Hematocrit 32.5 % (37.0-47.0); Hemoglobin 10.7 g/dL (11.5-15.3); Lymphocytes # 0.5 10^3/uL (0.8-4.8); Lymphocytes % 6.3 %; Mean Corpuscular HGB Conc 32.9 g/dL (30.0-36.0); Mean Corpuscular Hemoglobin 30.5 pg (28.0-34.0); Mean Corpuscular Volume 92.6 fl (81-99); Mean Platelet Volume 10.5 fL (7.4-10.4); Monocytes # 0.3 10^3/uL (0.2-0.9); Monocytes % 3.1 %; Neutrophils # 7.29 10^3/uL (1.8-7.7); Nucleated Red Blood Cells % 0 %; Platelet Count 276 10^3/cmm (130-400); Red Blood Count 3.51 10^6/uL (4.1-5.3); Red Cell Distribution Width 14.1 % (12.1-15.1); White Blood Count 8.1 10^3/uL (4.0-10.0)
[2022-06-25] MEDS: nitroglycerin 0.4 mg sublingual Tablet SUBLINGUAL ×3 (04:07→05:51)
[2022-06-25 04:12] LABS: INR 1.09 (0.8-1.2)
--- NOTE | 2022-06-25 04:14 | ECG_ITS ---
[facility] Test Date: 2022-06-25 Pat Name: Romi Yuan Department: Room: [facility] Gender: Female Act Tutor: : 1950 Requested By: Geoff Dinero Order Number: [id number] Tessa MD: Tristin Goldstein M.D. Measurements Intervals [place] Rate: 113 P: 112 WV: 177 QRS: -9 QRSD: 105 T: 92 QT: 351 QTc: 482 Interpretive Statements SINUS TACHYCARDIA MODERATE ST DEPRESSION [0.05+ mV ST DEPRESSION] ABNORMAL QRS-T ANGLE [QRS-T AXIS DIFFERENCE > 60] Compared to ECG 06/24/2022 14:01:58 ST (T wave) deviation now present Sinus rhythm no longer present Left-axis deviation no longer present Myocardial infarct finding no longer present Electronically Signed On 06-25-2022 14:50:41 TOPPER PACKER by Tristin Goldstein M.D. [id number]
[2022-06-25 04:53] LABS: Alanine Aminotransferase 24 U/L (0-33); Albumin Level 3.1 g/dL (3.5-5.2); Alkaline Phosphatase 86 U/L (35-105); Anion Gap 16.7 (5-19); Aspartate Amino Transferase 27 U/L (0-32); Blood Urea Nitrogen 37 mg/dL (8-23); Calcium 9.3 mg/dL (8.5-10.5); Carbon Dioxide 22 mmol/L (22-29); Chloride 104 mmol/L (98-107); Free T4 Free Thyroxine 1.03 ng/dL (0.82-1.77); Globulin 2.8 g/dL (1.3-4.6); Glucose 282 mg/dL (65-115); Magnesium 1.9 mg/dL (1.7-2.3); Osmolality Calculated 305 mOsm/kg (285-295); Potassium 4.7 mmol/L (3.5-5.1); Sodium 138 mmol/L (136-145); T3 Free 1.6 PG/ML (2.0-4.4); Thyroid Stimulating Hormone 1.16 uIU/mL (0.27-4.20); Total Bilirubin 0.2 mg/dL (0.15-1.2); Total Protein 5.9 g/dL (6.6-8.7)
[2022-06-25 05:17] LABS: Troponin(5th) Baseline 84 ng/L (0-10)
[2022-06-25 05:44] LABS: Troponin 5 2HR 70.47 ng/L (0-10)
[2022-06-25 05:45] LABS: Troponin 5 2HR Delta -13.53 ABS# (0-10)
[2022-06-25] MEDS: hyDRALAzine 25 mg Tablet PO (05:48)
[2022-06-25] MEDS: meropenem 500 MG in sodium chloride 0.9% (plus) 50 ML 100 MG IV ×2 (05:48→17:27)
--- NOTE | 2022-06-25 05:56 | XR_ITS ---
WS: [id number] XR chest 1V portable [id number] REASON FOR EXAM: chest pain, shortness of breath FINDINGS: Status post coronary artery bypass surgery. Cardiomegaly. Central venous congestion. Coarse reticular interstitial lung opacities with presumed curly B lines along the lateral margin of the right lung. Patchy lung opacities in both lower lungs. XR/XR chest 1V portable [id number] IMPRESSION: Chest x-rays have demonstrated the findings of congestive heart failure/pulmona ry edema, at least since 06/11/2022. The lungs were clear on a CT scan of the [facility] st 05/22/2022. On the examination of 06/24/2022, in addition to the interstitial opacities, pat herman airspace disease has developed in both lower lobes more notably on the righ t. Those lung opacities in the right lower lobe appear more prominent on today' s exam compared to the previous day. This may represent worsening of the pulmonary edema or less likely due to super imposition of a pneumonitis.
--- NOTE | 2022-06-25 05:57 | ECG_ITS ---
[facility] Test Date: 2022-06-25 Pat Name: Romi Yuan Department: Room: [facility] Gender: Female [employer] Equipment Operator: : 1950 Requested By: Rod Batista Order Number: [id number] Tessa MD: Tristin Goldstein M.D. Measurements Intervals [place] Rate: 141 P: 18 IL: 107 QRS: -18 QRSD: 108 T: 76 QT: 279 QTc: 428 Interpretive Statements SINUS TACHYCARDIA WITH SHORT [place] INTERVAL, POSSIBLE ATRIAL FLUTTER LEFT VENTRICULAR HYPERTROPHY AND ST-T CHANGE [VOLTAGE CRITERIA PLUS ST/T ABNORMALITY] Compared to ECG 06/24/2022 14:01:58 Left ventricular hypertrophy now present ST (T wave) deviation now present Sinus rhythm no longer present Left-axis deviation no longer present Myocardial infarct finding no longer present Electronically Signed On 06-25-2022 14:48:44 CORPORATE ACCOUNTANT by Tristin Goldstein M.D. [id number]
--- NOTE | 2022-06-25 05:58 | PC.NURSE ---
Dr. Batista notified of patient having chest pain with shortness of breath with increased work of breathing. Heart rate 140's. Telephone order for chest x-ray, lasix, and Bipap received. Physician at bedside.
[2022-06-25] MEDS: FUROsemide 10 mg/mL SDV 4mL 40 MG IVP ×2 (06:02→08:15)
[2022-06-25] MEDS: metOLazone 5 MG Tablet PO (06:03)
[2022-06-25 06:32] LABS: ABG PCO2 37.2 mmHg (35-45); ABG PH Result 7.41 (7.35-7.45); Arterial Blood Gas Hematocrit 36.7 % (37-47); Base Excess ABG -1.1 mmol/L (-2.0-2.0); Blood Gas Allen Test Pos; Blood Gas Operator Identificat JB; Blood Gas Sample Site Radial, right; Blood Gas Sample Type Arterial; HCO3 ABG 23.3 mmol/L (22-26); Oxygen Device BIPAP
[2022-06-25] MEDS: nitroglycerin drip 50 MG/250 ML PREMIX IV (06:55)
[2022-06-25 07:05] LABS: Glucose Point of Care 312 mg/dL (70-110)
--- NOTE | 2022-06-25 07:08 | PC.NURSE ---
Patient experienced two bouts of chest pain through the morning requiring nitro tabs. Troponin series ran with first bout resulting decreasing levels. Order to admin Hydralazine early was received. On 2nd instance of angina patient's BP climbed into the 230s. Order for Bipap, Munson catheter, Lasix, Precedex prn and chest Xray received. Patient's breathing became much more controlled and heart rate dropped from 140s to low 100s. Air Hammer Stripper was informed of changes and gave order for Nitro drip to be started for controlling BP with Goal <140. Patient resting much more comfortably now with no reports of angina, Nitro drip started and Systolic in the 170s currently. Report given to Hyun RODRIGUEZ.
[2022-06-25] MEDS: aspirin 81 mg EC Tablet PO (08:15)
[2022-06-25] MEDS: clopidogrel 75 mg Tablet PO (08:15)
[2022-06-25] MEDS: amlodipine 10 mg Tablet PO (08:15)
[2022-06-25] MEDS: methIMAzole 5 MG Tablet PO (08:16)
[2022-06-25] MEDS: isosorbide mononitrate ER 60 mg Tablet PO ×2 (08:16→17:27)
[2022-06-25] MEDS: insulin lispro 100 unit/1 mL SUBCUT ×2 (08:16→17:27)
[2022-06-25] MEDS: venlafaxine ER (24HR) 75 mg Capsule PO (08:34)
[2022-06-25] MEDS: metoprolol succinate ER (24 HR) 25 mg Tablet PO (08:34)
[2022-06-25] MEDS: venlafaxine ER (24HR) 150 mg Capsule PO (08:34)
[2022-06-25 09:33] LABS: Troponin 5 6HR Delta 23.4 ng/L (0-12)
[2022-06-25 09:34] LABS: Troponin 5 6HR 107.4 ng/L (0-10)
--- NOTE | 2022-06-25 09:45 | XACV_ITS ---
Exam Room: [facility] Ht: 150 cm Wt: 78 kg BSA: 1.85 m2 Gender: Female : 1950 Any Known Allergies: Other Exam Priority: Routine Procedure(s): Procedure Description: Diagnostic procedure Procedure Description: Left Heart Catheterization Procedure Description: Venous Graft Catheterization Procedure Description: LOVETT Graft Catheterization Procedure Description: Coronary Angiography Diagnostic Cath Status: Elective Diagnostic Findings * INDICATION: 71 Year old woman who has been admitted multiple times during the last 1 month for recurrent pulmonary edema/NSTEMI episodes. Previously she was treated medically given her high risk of renal dysfunction progression. However she has presented again with similar symptoms and on and off chest pressure. After detailed discussion with patient decision has been made to proceed with coronary angiogram. She understands the risk of complications including renal function worsening/need for permanent dialysis. * Left main artery: Short, patent. Left circumflex artery: Has patent stents, no significant stenosis. LAD:Occluded in the midsegment. RCA: Known occluded. Not injected. SVG to diagonal artery and SVG to RCA are known occluded. Not injected. LOVETT to LAD: Patent.. * Coronary angiography shows right dominance. Conclusions 1. Left main artery: Short, patent. Left circumflex artery: Has patent stents, no significant stenosis. LAD:Occluded in the midsegment. RCA: Known occluded. Not injected. SVG to diagonal artery and SVG to RCA are known occluded. Not injected. LOVETT to LAD: Patent.. 2. Coronary anatomy unchanged compared to before. 3. Some difficulty noted in advancing catheter to subclavian artery. Can consider CT scan at a later time to assess subclavian stenosis. 4. Patient has prior CABG. Recommendations * Aggressive risk factor modification. * Outpatient cardiology follow up in 4 weeks. Interventional RX Recommendation: medical therapy and/or counseling Diagnostic RX Recommendation: medical therapy and/or counseling Anticoagulation: Heparin Pressures Phase:Rest AO : 205 / 86 ( 133 ) @ 10:17:00 AM 197 / 85 ( 128 ) @ 10:17:00 AM 176 / 82 ( 115 ) @ 10:20:00 AM LV : 182 / 5 / 26 @ 10:16:00 AM 184 / 6 / 28 @ 10:17:00 AM Valves Phase:DefaultPhase AV : 0.0 @ 10:29:01 AM Clinical Evaluation EBL: 5mL-10mL Procedural Details Procedure Consent Obtained. Current Diagnosis : Chest Pain. Pre-Procedure Time Out. Identified patient by full name and date of as verbalized by the patient/guarantor. Does the consent match the physician's order: Yes. Accurate & Complete Informed Consent: Yes. Inpatient/Outpatient History & Physical on Chart: No. If H&P is completed, is and addenduem needed: No; If yes, is the addendum complete: N/A. Visualize and Verify Site with Patient/Guarantor: N/A. Relevant Radiology Images available: Yes. Pre-op teaching completed and patient verbalized understanding. The risks, benefits, and alternatives of sedation and/or procedure were discussed by physician. The patient agrees to continue. Procedure started. [facility] Clinical Fraility Score: 4: Vulnerable. Brand Inspector Indications: Other: Unstable Angina and Pulmonary Edema. Chest Pain Symptom Assessment: Typical Angina Symptoms. Correct patient, site and procedure confirmed by cath team. Current diagnosis: Unstable angina. PERRLA. Strong, equal hand lien searcher bilaterally. Lungs clear x 5 lobes. IV Site on Arrival: 20 gauge in the right anticubital. IV Fluids: 0.9% NaCl at KVO. 0 mL infused prior to laboratory associate. Oxygen started at 2liters/min via nasal canula. bilateral groins was prepped with chloroprep then draped in the usual sterile fashion. Physician arrived. Baseline sample Acquired. HR: 111 BPM. Physician scrubbed in. Immediate Pre-Procedure Time Out. Correct Patient: Yes; Correct Procedure: Yes; Correct Site: Yes; Correct Patient Position: Yes; Correct Supplies: Yes; Dried Flammable Prep: Yes; Blood Products Available: N/A;. Lidocaine 1% infiltrated to the right groin. Arterial access obtained with micropuncture set. Wire unable to advance. Wire and needle removed. Manual pressure held until hemostasis was achieved. Arterial access obtained with micropuncture set. A 5 serbian JL4 catheter in over wire. Multiple views taken of left coronary artery. Catheter removed over the standard wire. A 5 serbian JR4 catheter in over wire. EDP Sample taken: LV 182/5,26; HR: 110 BPM; SpO2: 95%. Pullback taken: LV 184/6,28; AO 205/86(133); Mean: , Peak to Peak: 0mmHg, SEP: ; HR: 111 BPM; SpO2: 94%. Wire out. Inventory is TR Glidewire Angled Stiff Shaft .035 260cm. Glidewire inserted. Wire out. LOVETT to LAD visualized. Catheter removed over the standard wire. A Suture was successful obtaining hemostatsis at the Right Femoral artery insertion site. Sheath(s) sutured into position with 2-0 silk and sterile 4x4's and Op-site applied over the site. No oozing or signs and symptoms of hematoma noted. Arterial sheath flushed and connected to tranducer and pressure bag with heparinized saline. Post Procedure: Pulses reassessed and unchanged. PERRLA. Strong, equal hand lien searcher bilaterally. No VTE prophylaxis required. Complications: None. Estimated blood loss: 5mL-10mL. Responsiveness - Normal response to verbal stimuli; alert and oriented, PERRLA. Medication's Wasted: Lidocaine 1% = 2 mL. Total IV fluids: 33 mL. Airway - Unaffected, no intervention required; spontaneous ventilation. Circulation: W/N/L, pulses unchanged. Nausea/Vomiting: No. Procedure completed. Patient transferred by bed to CPRU. Vital chart was stopped. Access Site Site: Right Femoral artery Sheath Size: 6 Fr Hemostasis Method: Suture Hemostasis Success: Successful Procedure Medications Start: 10:14 AM Stop: 10:14 AM Medication: Versed Amount: 1 mg Route: I.V. Start: 10:14 AM Stop: 10:14 AM Medication: Fentanyl Amount: 50 mcg Route: I.V. Start: 10:02 AM Stop: 10:02 AM Medication: Versed Amount: 1 mg Route: I.V. Start: 10:02 AM Stop: 10:02 AM Medication: Fentanyl Amount: 50 mcg Route: I.V. I, the attending physician, have reviewed and verified all procedure medications. Yes, all medications given per verbal order History/Risk Factors Hypertension: Yes Dyslipidemia: Yes Peripheral Arterial Disease (PAD): No Myocardial Infarction (HI): No Obesity: No Renal Disease: No Tobacco Use: Former Prior Interventions PCI: No CABG: Yes Valve Surgery: No Report Signatures Finalized by Tristin Goldstein MD on 07/01/2022 02:33 PM
--- NOTE | 2022-06-25 10:00 | W.PM.OPSUD ---
Surgery/Procedure H&P Update DATE OF PROCEDURE: June 25, 2022 DATE H&P PERFORMED: 06/24/22 H&P UPDATE INFORMATION: I have reviewed H&P completed within last 30 days, I have examined patient prior to procedure and No changes to prior documentation PREOP DIAGNOSIS: Unstable angina/ recurrent pulmonary edema PRIMARY INDICATION FOR PROCEDURE: Unstable angina/ recurrent pulmonary edema PLANNED PROCEDURE: Left heart cath with possible percutaneous coronary intervention PATIENT REASSESSED PRIOR TO SEDATION, WITH NO CHANGE NOTED: Yes PHYSICAL EXAM: alert, oriented x 3, clear to auscultation bilaterally and regular rate & rhythm AIRWAY EVAL/ANESTHESIA PLAN: normal airway, ASA IV, Local Anesthesia, Risks, benefits & alternatives of sedation and/or procedure discussed and Patient agrees to continue as planned ADDITIONAL INFORMATION: Moderate sedation
--- NOTE | 2022-06-25 10:30 | SUR.PHASEI ---
POST CATH NOTE Patient brought to cpru for early recovery/sheath pull Access was right femoral arterial with pressure bag. Verbal orders from Dr Goldstein to pull on arrival to cpru. Sheath removed on arrival as ordered. Held for 15 minutes. Pull was uncomplicated. No hematoma formation noted. Vitals and assessments per PCS flowsheet. Verbal post cath instructions given which she understood well. Call light in reach. Informed to call for needs.
--- NOTE | 2022-06-25 10:46 | PM.PN ---
Subjective Subjective: Patient's coronary angiogram showed unchaged anatomy compared to prior [facility] in2 019. LOVETT to LAD is patent. She also has patent left circumflex artery. Vitals/I&O/Wt Last Vital Signs Temp 97.8 F 06/24/22 19:00 Pulse 106 H 06/25/22 09:45 Resp 19 H 06/25/22 09:45 BP 174/90 06/25/22 09:45 Pulse Ox 99 06/25/22 08:35 O2 Del Method 06/25/22 08:23 O2 Flow Rate 6 06/25/22 08:23 FiO2 45 06/25/22 08:21 06/24/22 06/25/22 06/25/22 22:59 06:59 14:59 Intake Total 810 / 960 110 / 110 Output Total 350 / 350 200 / 550 Balance 460 / 610 -200 / 410 110 / 110 Weight last 48 hrs Weight 173 lb Physical Exam Narrative: GENERAL: Patient is alert, awake and oriented x3. [] NECK: No jugular vein distension. [] HEENT: No cyanosis. No icterus. No pallor. [] HEART: Regular S1 and S2. No murmur, rub or gallop. [] LUNGS: Diminished breath sounds bilaterally, has mild crackles CENTRAL NERVOUS SYSTEM: Grossly nonfocal. [] EXTREMITIES: Lower extremities with 1+ edema bilaterally. Urinary Catheter Management: Munson: Cath Placed During This Visit: yes Urinary Catheter Date of Insertion: 06/25/22 Urinary Catheter Time of Insertion: 06:00 Data 06/25/22 02:30 06/25/22 02:30 Micro: Microbiology 06/24/22 09:37 Bacterial Antigens - Final Urine,Voided 06/24/22 09:37 Legionella Urinary Antigen - Final Urine Catheterized 06/24/22 11:03 Blood Culture - Preliminary Blood SPECIMEN COLLECTED 06/24/22 11:00 Blood Culture - Preliminary Blood SPECIMEN COLLECTED A&P Assessment and plan (1) Acute respiratory failure with hypoxia: (2) Diabetes mellitus: (3) Hyperthyroidism: (4) HTN (hypertension): (5) CKD (chronic kidney disease) stage 3, GFR 30-59 ml/min: (6) Acute exacerbation of CHF (congestive heart failure): Plan Patient underwent coronary angiogram today that shows unchanged anatomy compared to before. LOVETT to LAD is patent. Left circumflex artery is patent. Other SVG grafts are known occluded. Some concern for left subclavian stenosis. At some point she will need to have a CTA to assess that once renal function is stable Her with recurrent pulmonary edema episodes likely secondary to hypertensive urgency/CKD worsening on top of recent COVID infections. Lasix for now given her CKD and contrast use. Will need close renal monitoring as he is at high risk of contrast-induced nephropathy. Continue aspirin and Plavix Thank you for involving us with care of this patient. We will continue to follow. Please call with questions Attestations Medical Necessity Statement*: Care expected to cross 2midnights. Coding Level of Care Code Acute Code for Chg Fwd Diagnoses Acute respiratory failure with hypoxia J96.01 Diabetes mellitus E11.9 Hyperthyroidism E05.90 HTN (hypertension) I10 CKD (chronic kidney disease) stage 3, GFR 30-59 ml/min N18.30 Acute exacerbation of CHF (congestive heart failure) I50.9
[2022-06-25 12:06] LABS: Glucose Point of Care 121 mg/dL (70-110)
--- NOTE | 2022-06-25 14:09 | PM.PN ---
Subjective Subjective: Patient was seen and examined this morning she had rough night yesterday, she was complaining of shortness of breath as well as chest pain, for which she had to be given Lasix as well as metolazone, was placed on BiPAP, she was also placed on nitro drip this morning. patient underwent cardiac cath today, results awaited, but no intervention done. For Better blood culture control hydralazine dose has been increased to 50 3 times daily, metoprolol dose has been increased to 50 daily. Continue to adjust antihypertensive medications. Medications: Medication Review Details: Generic Name Dose Route Start Last Admin Trade Name Freq PRN Reason Stop Dose Admin Acetaminophen 650 mg 06/24/22 12:59 06/24/22 22:36 Acetaminophen 32 5 Mg Tablet PO 650 mg Q6H PRN Administration Mild/Mod Pain Or Temp >/= 101 Albuterol/Ipratrop ium 3 ml 06/24/22 14:00 06/25/22 14:11 Ipratropium-Albu terol 3 Ml Neb INHALATION Not Given Q6H.RESP YASMANI Amlodipine Besylat e 10 mg 06/25/22 09:00 06/25/22 08:15 Amlodipine 10 Mg Tablet PO 10 mg DAILY YASMANI Administration Aspirin 81 mg 06/25/22 09:00 06/25/22 08:15 Aspirin 81 Mg Ec Tablet PO 81 mg DAILY YASMANI Administration Atorvastatin Calci um 40 mg 06/24/22 21:00 06/24/22 21:06 Atorvastatin 40 Mg Tablet PO 40 mg BEDTIME YASMANI Administration Clopidogrel Bisulf ate 75 mg 06/25/22 09:00 06/25/22 08:15 Clopidogrel 75 M g Tablet PO 75 mg DAILY YASMANI Administration Furosemide 40 mg 06/25/22 09:00 06/25/22 08:15 Furosemide 10 Mg /Ml Sdv 4ml IVP 40 mg DAILY YASMANI Administration Heparin Sodium (Po rcine) 5,000 unit 06/24/22 13:00 06/25/22 13:18 Heparin 5,000 Un it/Ml Inj 1 Ml SUBCUT Not Given Q12H YASMANI Meropenem 500 mg/ Sodium 50 mls @ 100 mls/ hr 06/24/22 18:00 06/25/22 07:21 Chloride IV Infused Q12H YASMANI Infusion Nitroglycerin/Dext damien 50 mg in 250 mls @ 0 mls/hr 06/25/22 06:30 06/25/22 06:[address] ip IV 5 mcg/min .Q0M YASMANI 1.5 mls/hr Administration Protocol Per Protocol Insulin Human Lisp ro 0 unit 06/24/22 18:00 06/25/22 12:07 Insulin Lispro 1 00 Unit/1 Ml SUBCUT Not Given WM&BEDTIME YASMANI Protocol Isosorbide Mononit rate 60 mg 06/24/22 18:00 06/25/22 08:16 Isosorbide [place] itrate Er 60 Mg Ta blet PO 60 mg BID YASMANI Administration Methimazole 5 mg 06/25/22 09:00 06/25/22 08:16 Methimazole 5 Mg Tablet PO 5 mg DAILY YASMANI Administration Methylprednisolone Sodium Succinate 40 mg 06/24/22 18:00 06/25/22 08:35 Methylprednisolo ne Sod Succ 40 Mg/ Ml Inj IVP 40 mg BID YASMANI Administration Nitroglycerin 0.4 mg 06/24/22 16:53 06/25/22 05:51 Nitroglycerin 0. 4 Mg Sublingual Ta blet SUBLINGUAL 0.4 mg Q5M PRN Administration CHEST PAIN Tizanidine HCl 4 mg 06/24/22 13:16 06/24/22 22:36 Tizanidine 4 Mg Tablet PO 4 mg DAILY PRN Administration MUSCLE SPASMS Venlafaxine HCl 75 mg 06/25/22 09:00 06/25/22 08:34 Venlafaxine Er ( 24hr) 75 Mg Capsul e PO 75 mg DAILY YASMANI Administration Venlafaxine HCl 150 mg 06/25/22 09:00 06/25/22 08:34 Venlafaxine Er ( 24hr) 150 Mg Capsu le PO 150 mg DAILY YASMANI Administration Vitals/I&O/Wt Last Vital Signs Temp 97.8 F 06/24/22 19:00 Pulse 104 H 06/25/22 12:00 Resp 26 H 06/25/22 12:00 BP 139/77 06/25/22 12:00 Pulse Ox 96 06/25/22 11:15 O2 Del Method 06/25/22 11:15 O2 Flow Rate 2 06/25/22 11:15 FiO2 45 06/25/22 08:21 06/24/22 06/25/22 06/25/22 22:59 06:59 14:59 Intake Total 810 / 960 230 / 230 Output Total 350 / 350 200 / 550 1500 / 1500 Balance 460 / 610 -200 / 410 -1270 / -1270 Weight last 48 hrs Weight 78.471 kg Physical Exam Const: COMMON NORMALS: patient oriented x3 HENMT: COMMON NORMALS: normocephalic and atraumatic HEAD & SCALP: normocephalic and atraumatic Resp: OTHER: b/l Crackles present in both lungs manning, minimum b/l wheezing likely cardiac wheezing. Cardio: COMMON NORMALS: regular rate, regular rhythm, S1 normal heart sound present, S2 normal heart sound present, No gallops present (Cardio), No murmurs present (Cardio), No rub (Cardio) and Peripheral pulses 2+ throughout RATE: regular rate RHYTHM: regular rhythm HEART SOUNDS: S1 normal heart sound present and S2 normal heart sound present PERIPHERAL PULSES: Peripheral pulses 2+ throughout GI: COMMON NORMALS: Normal to inspection, nondistended, normoactive bowel sounds present, Soft to palpation, non-tender, No hepatosplenomegaly present and no masses AUSCULTATION: Yes normoactive bowel sounds PALPATION: Yes Soft to palpation and Yes No hepatosplenomegaly present RECTAL EXAM: deferred Extremity: NARRATIVE EXTREMITY EXAM: TRace B/L L/E Pitting edema. Neuro: COMMON NORMALS: patient oriented x3 Urinary Catheter Management: Munson: Cath Placed During This Visit: yes Urinary Catheter Date of Insertion: 06/25/22 Urinary Catheter Time of Insertion: 06:00 Data 06/25/22 02:30 06/25/22 02:30 Micro: Microbiology 06/24/22 11:00 Blood Culture - Preliminary Blood NEGATIVE TO DATE 06/24/22 11:03 Blood Culture - Preliminary Blood NEGATIVE TO DATE 06/24/22 09:37 Bacterial Antigens - Final Urine,Voided 06/24/22 09:37 Legionella Urinary Antigen - Final Urine Catheterized A&P Assessment and plan (1) Acute exacerbation of CHF (congestive heart failure): (2) NSTEMI (non-ST elevated myocardial infarction): (3) Acute exacerbation of chronic obstructive airways disease: (4) Pneumonia: (5) CKD (chronic kidney disease) stage 3, GFR 30-59 ml/min: (6) HTN (hypertension): (7) Hyperthyroidism: (8) Diabetes mellitus: (9) Acute respiratory failure with hypoxia: Plan 71 year old female with past medical history of coronary artery disease S/P two previous bypass surgeries where three vessels were bypassed easch time. Her surgeries were in 1994 and in 2004. She had LOVETT to the LAD, saphenous venous graft to the diagonal branch of the left anterior descending and saphenous vein graft to the right coronary artery. She has also had multiple stents. Her last cardiac cath was at [facility] with Dr. Fiore in 2019 where only patent bypass was LOVETT-LAD. SVG to RCA and SVG to LCx were occluded. Medical management was recommended. Hypertension diabetes, COPD not on home oxygen, hypothyroidism, heart failure with reduced ejection fraction, CKD stage III with baseline serum creatinine around 1.7-2, history of COVID-19 pneumonia, recent NSTEMI, was discharged yesterday after being managed for NSTEMI: On medical management, with close cardiology follow-up, as the patient was chest pain-free and denied any Worsening shortness of breath, prior to discharge, she was saturating well on room air, denied any significant pain with ambulation, came in today after acute onset of worsening shortness of breath Started today this morning, left-sided chest pressure, she denied any, cough abdominal pain palpitation diaphoresis. Assessment: NSTEMI: Patient is coming with recurrent similar presentation, in the recent past.Lately she had attributed her shortness of breath to COVID. But given her underlying risk factors, and significant history of coronary artery disease, cardiac cause needs to be worked up. Patient has recent 2D echo done results appreciated: LV systolic function is moderately reduced with EF 35 to 40%.? Severe hypokinesis of inferior and inferolateral watters are seen.?Grade 1 diastolic dysfunction,Mildly dilated left atrium,?Mild to moderate mitral regurgitation,?Mild tricuspid regurgitation. Continue aspirin Plavix statin beta-lexy, sublingual nitro as needed, Imdur hydralazine. Cardiology on board Ac on chronic decompensated heart failure with reduced ejection fraction: X-ray chest is suggestive of pulmonary vascular congestion Trace bilateral lower extremity pitting edema Continue Lasix 40 IV daily Monitor intake output charting Monitor daily weight Monitor electrolytes Telemetry monitoring Possible pneumonia: Though less likely. X-ray chest is showing of possible infiltrates Procalcitonin is normal Follow sputum gram stain and culture Empirically on cefepime CKD stage III: Currently serum creatinine is at baseline Monitor BMP Avoid nephrotoxic's Strict intake output charting Low threshold for nephrology involvement, particularly so if the patient end up undergoing cardiac cath. COPD: Patient has minimum wheezing likely cardiac wheezing due to heart failure. Continue DuoNebs Solu-Medrol 40 twice daily Supplemental oxygen as needed Monitor x-ray chest as needed Monitor ABG as needed History of extensive coronary artery disease: Plan as above Diabetes: SSI Diabetic diet Monitor fingerstick glucose Hypertensive urgency: Has received hydralazine 10 mg IV one-time dose in the ER Continue hydralazine 25 mg TID, Imdur 60 twice daily, amlodipine 10 CODE STATUS: Full code DVT prophylaxis on subcu heparin Attestations Medical Necessity Statement*: Patient is in hospital for management decompensated heart failure Coding Level of Care Code Acute Code for Chg Fwd Diagnoses Acute exacerbation of CHF (congestive heart failure) I50.9 NSTEMI (non-ST elevated myocardial infarction) I21.4 Acute exacerbation of chronic obstructive airways disease J44.1 Pneumonia J18.9 CKD (chronic kidney disease) stage 3, GFR 30-59 ml/min N18.30 HTN (hypertension) I10 Hyperthyroidism E05.90 Diabetes mellitus E11.9 Acute respiratory failure with hypoxia J96.01
[2022-06-25] MEDS: hyDRALAzine 25 mg Tablet 50 MG PO (15:24)
[2022-06-25 17:18] LABS: Glucose Point of Care 359 mg/dL (70-110)
[2022-06-25 20:45] LABS: Glucose Point of Care 139 mg/dL (70-110)
[2022-06-25] MEDS: atorvastatin 40 mg Tablet PO (21:09)
[2022-06-25] MEDS: hyDRALAzine 25 mg Tablet 75 MG PO (21:09)
[2022-06-25] MEDS: acetaminophen 325 mg Tablet 650 MG PO (23:24)
[2022-06-25] MEDS: tizanidine 4 mg Tablet PO (23:25)
[2022-06-26] VITALS (29 sets, daily range): BP systolic 104–152; BP diastolic 49–89; PULSE 61–103; RESP 13–26; TEMP 36.3–36.9; O2SAT 93–98
[2022-06-26] MEDS: heparin 5,000 unit/mL INJ 1 mL 5000 UNIT SUBCUT ×2 (01:06→12:58)
[2022-06-26 03:20] LABS: Basophils % 0.1 %; Hemoglobin 10.4 g/dL (11.5-15.3); Lymphocytes # 0.8 10^3/uL (0.8-4.8); Lymphocytes % 6.6 %; Mean Corpuscular HGB Conc 31.5 g/dL (30.0-36.0); Mean Corpuscular Hemoglobin 30.8 pg (28.0-34.0); Mean Corpuscular Volume 97.6 fl (81-99); Mean Platelet Volume 10.6 fL (7.4-10.4); Monocytes # 0.2 10^3/uL (0.2-0.9); Monocytes % 1.3 %; Neutrophils # 10.98 10^3/uL (1.8-7.7); Neutrophils % 91.6 %; Nucleated Red Blood Cells % 0 %; Platelet Count 278 10^3/cmm (130-400); Red Blood Count 3.38 10^6/uL (4.1-5.3); Red Cell Distribution Width 14.5 % (12.1-15.1)
[2022-06-26 03:37] LABS: Alanine Aminotransferase 20 U/L (0-33); Albumin Level 2.8 g/dL (3.5-5.2); Alkaline Phosphatase 79 U/L (35-105); Anion Gap 16.7 (5-19); Aspartate Amino Transferase 24 U/L (0-32); Blood Urea Nitrogen 46 mg/dL (8-23); Calcium 9.2 mg/dL (8.5-10.5); Carbon Dioxide 22 mmol/L (22-29); Chloride 103 mmol/L (98-107); Globulin 2.9 g/dL (1.3-4.6); Glucose 308 mg/dL (65-115); Osmolality Calculated 308 mOsm/kg (285-295); Potassium 4.7 mmol/L (3.5-5.1); Sodium 137 mmol/L (136-145); Total Bilirubin 0.2 mg/dL (0.15-1.2); Total Protein 5.7 g/dL (6.6-8.7)
--- NOTE | 2022-06-26 05:00 | XRR_ITS ---
PROCEDURE INFORMATION: Exam: XR Chest Exam date and time: 06/26/2022 5:12 AM Age: 71 years old Clinical indication: Shortness of breath; Prior surgery; Surgery type: Cabg; Patient HX: History--f/u for SOB. TECHNIQUE: Imaging protocol: Radiologic exam of the chest. Views: 1 view. COMPARISON: CR XR chest 1V portable [id number] 06/25/2022 6:24 AM FINDINGS: The thorax is partially obscured by overlying EKG leads. Lungs: Emphysematous change, interstitial prominence, and markedly improved basilar airspace disease. Pleural spaces: No significant pleural effusion. Heart/Mediastinum: Bypass surgery and borderline cardiomegaly. Bones/joints: Osteopenia and degenerative change. XR/XR chest 1V portable [id number] IMPRESSION: Emphysematous change, interstitial prominence, and markedly improved basilar airspace disease.
--- NOTE | 2022-06-26 05:33 | PC.NURSE ---
Patient rested comfortably through this nurse's shift. No complaints of chest pain or SOB. Patient remained on room air throughout the night. Report given to Alicia RODRIGUEZ for transfer to [facility].
[2022-06-26] MEDS: meropenem 500 MG in sodium chloride 0.9% (plus) 50 ML 100 MG IV ×2 (05:35→18:33)
--- NOTE | 2022-06-26 05:50 | PC.NURSE ---
Patient is transferred up to [facility] at this time. Patient has been settled into bed and call light is within reach.
[2022-06-26 06:27] LABS: Glucose Point of Care 290 mg/dL (70-110)
--- NOTE | 2022-06-26 06:48 | PM.PN ---
Subjective Subjective: Patient's coronary angiogram was unchanged from before. Renal function shows slight worsening with creatinine of 2.2 today. Vitals/I&O/Wt Last Vital Signs Temp 97.4 F L 06/26/22 05:57 Pulse 61 06/26/22 05:57 Resp 24 H 06/26/22 05:57 BP 123/62 06/26/22 05:57 Pulse Ox 95 06/26/22 05:57 O2 Del Method 06/26/22 05:57 O2 Flow Rate 2 06/26/22 02:00 FiO2 45 06/25/22 08:21 06/25/22 06/25/22 06/26/22 14:59 22:59 06:59 Intake Total 230 / 230 490 / 720 50 / 770 Output Total 1500 / 1500 600 / 2100 500 / 2600 Balance -1270 / -1270 -110 / -1380 -450 / -1830 Weight last 48 hrs Weight 146 lb 14.4 oz Weight 173 lb Physical Exam Narrative: GENERAL: Patient is alert, awake and oriented x3. [] NECK: No jugular vein distension. [] HEENT: No cyanosis. No icterus. No pallor. [] HEART: Regular S1 and S2. No murmur, rub or gallop. [] LUNGS: Diminished breath sounds bilaterally, has mild crackles CENTRAL NERVOUS SYSTEM: Grossly nonfocal. [] EXTREMITIES: Lower extremities with 1+ edema bilaterally. Urinary Catheter Management: Munson: Cath Placed During This Visit: yes Reason for Continuing Indwelling Catheter: Accurate Measurement of Urinary Output in Critically Ill Patients Urinary Catheter Date of Insertion: 06/25/22 Urinary Catheter Time of Insertion: 06:00 Data 06/26/22 02:06 06/26/22 02:06 Micro: Microbiology 06/24/22 11:00 Blood Culture - Preliminary Blood NEGATIVE TO DATE 06/24/22 11:03 Blood Culture - Preliminary Blood NEGATIVE TO DATE A&P Assessment and plan (1) Acute respiratory failure with hypoxia: (2) Diabetes mellitus: (3) Hyperthyroidism: (4) HTN (hypertension): (5) CKD (chronic kidney disease) stage 3, GFR 30-59 ml/min: (6) Acute exacerbation of CHF (congestive heart failure): Plan Patient underwent coronary angiogram that showed unchanged anatomy compared to before. LOVETT to LAD is patent. Left circumflex artery is patent. Other SVG grafts are known occluded. Some concern for left subclavian stenosis. At some point she will need to have a CTA to assess that once renal function is stable Her recurrent pulmonary edema episodes likely secondary to hypertensive urgency/CKD worsening on top of recent COVID infections. Holding lasix. Patient has slight worsening of renal function. Will need close monitoring as high risk of contrast induced nephropathy Continue aspirin and Plavix Thank you for involving us with care of this patient. We will continue to follow. Please call with questions Attestations Medical Necessity Statement*: Care expected to cross 2 midnights. Coding Level of Care Code Acute Code for Chg Fwd Diagnoses Acute respiratory failure with hypoxia J96.01 Diabetes mellitus E11.9 Hyperthyroidism E05.90 HTN (hypertension) I10 CKD (chronic kidney disease) stage 3, GFR 30-59 ml/min N18.30 Acute exacerbation of CHF (congestive heart failure) I50.9
[2022-06-26] MEDS: ipratropium-albuterol 3 mL Neb INHALATION ×3 (08:15→20:41)
[2022-06-26] MEDS: insulin lispro 100 unit/1 mL SUBCUT ×4 (08:54→22:28)
[2022-06-26] MEDS: methIMAzole 5 MG Tablet PO (08:57)
[2022-06-26] MEDS: venlafaxine ER (24HR) 75 mg Capsule PO (08:57)
[2022-06-26] MEDS: venlafaxine ER (24HR) 150 mg Capsule PO (08:57)
[2022-06-26] MEDS: amlodipine 10 mg Tablet PO (08:57)
[2022-06-26] MEDS: metoprolol succinate ER (24 HR) 50 mg Tablet PO (08:57)
[2022-06-26] MEDS: hyDRALAzine 25 mg Tablet 75 MG PO ×3 (08:58→20:14)
[2022-06-26] MEDS: clopidogrel 75 mg Tablet PO (08:58)
[2022-06-26] MEDS: aspirin 81 mg EC Tablet PO (08:58)
[2022-06-26] MEDS: isosorbide mononitrate ER 60 mg Tablet PO ×2 (08:58→18:32)
[2022-06-26 09:01] LABS: T4 Total 6.9 mcg/dL (5.1-11.9)
[2022-06-26 10:00] LABS: T3 Total 61 ng/dL (76-181)
[2022-06-26 12:27] LABS: Glucose Point of Care 185 mg/dL (70-110)
--- NOTE | 2022-06-26 13:00 | PM.PN ---
Subjective Subjective: Patient was seen and examined this morning sob has improved,chest x-ray has shown improvement, She underwent coronary angiogram yesterday. which had shown: No significant change since her prior cath in 2019, patent LAD patent LCx. Serum creatinine has slightly up trended. Blood pressure medication adjustments being made,lasix has been kept on hold today. Medications: Medication Review Details: Generic Name Dose Route Start Last Admin Trade Name Freq PRN Reason Stop Dose Admin Acetaminophen 650 mg 06/24/22 12:59 06/25/22 23:24 Acetaminophen 32 5 Mg Tablet PO 650 mg Q6H PRN Administration Mild/Mod Pain Or Temp >/= 101 Albuterol/Ipratrop ium 3 ml 06/24/22 14:00 06/26/22 08:15 Ipratropium-Albu terol 3 Ml Neb INHALATION 3 ml Q6H.RESP YASMANI Administration Aspirin 81 mg 06/25/22 09:00 06/26/22 08:58 Aspirin 81 Mg Ec Tablet PO 81 mg DAILY YASMANI Administration Atorvastatin Calci um 40 mg 06/24/22 21:00 06/25/22 21:09 Atorvastatin 40 Mg Tablet PO 40 mg BEDTIME YASMANI Administration Clopidogrel Bisulf ate 75 mg 06/25/22 09:00 06/26/22 08:58 Clopidogrel 75 M g Tablet PO 75 mg DAILY YASMANI Administration Furosemide 40 mg 06/25/22 09:00 06/25/22 08:15 Furosemide 10 Mg /Ml Sdv 4ml IVP 40 mg DAILY YASMANI Administration Heparin Sodium (Po rcine) 5,000 unit 06/24/22 13:00 06/26/22 12:58 Heparin 5,000 Un it/Ml Inj 1 Ml SUBCUT 5,000 unit Q12H YASMANI Administration Hydralazine HCl 75 mg 06/25/22 21:00 06/26/22 08:58 Hydralazine 25 M g Tablet PO 75 mg TID YASMANI Administration Meropenem 500 mg/ Sodium 50 mls @ 100 mls/ hr 06/24/22 18:00 06/26/22 06:11 Chloride IV Infused Q12H YASMANI Infusion Nitroglycerin/Dext damien 50 mg in 250 mls @ 0 mls/hr 06/25/22 06:30 06/25/22 06:[address] ip IV 5 mcg/min .Q0M YASMANI 1.5 mls/hr Administration Protocol Per Protocol Insulin Human Lisp ro 0 unit 06/24/22 18:00 06/26/22 12:58 Insulin Lispro 1 00 Unit/1 Ml SUBCUT 4 unit WM&BEDTIME YASMANI Administration Protocol Isosorbide Mononit rate 60 mg 06/24/22 18:00 06/26/22 08:58 Isosorbide [place] itrate Er 60 Mg Ta blet PO 60 mg BID YASMANI Administration Methimazole 5 mg 06/25/22 09:00 06/26/22 08:57 Methimazole 5 Mg Tablet PO 5 mg DAILY YASMANI Administration Methylprednisolone Sodium Succinate 40 mg 06/24/22 18:00 06/26/22 08:59 Methylprednisolo ne Sod Succ 40 Mg/ Ml Inj IVP 40 mg BID COUNT INCLUDES THE [facility] Administration Metoprolol Succina te 50 mg 06/26/22 09:00 06/26/22 08:57 Metoprolol Succi rosie Er (24 Hr) 50 Mg Tablet PO 50 mg DAILY COUNT INCLUDES THE [facility] Administration Nitroglycerin 0.4 mg 06/24/22 16:53 06/25/22 05:51 Nitroglycerin 0. 4 Mg Sublingual Ta blet SUBLINGUAL 0.4 mg Q5M PRN Administration CHEST PAIN Tizanidine HCl 4 mg 06/24/22 13:16 06/25/22 23:25 Tizanidine 4 Mg Tablet PO 4 mg DAILY PRN Administration MUSCLE SPASMS Venlafaxine HCl 75 mg 06/25/22 09:00 06/26/22 08:57 Venlafaxine Er ( 24hr) 75 Mg Capsul e PO 75 mg DAILY COUNT INCLUDES THE [facility] Administration Venlafaxine HCl 150 mg 06/25/22 09:00 06/26/22 08:57 Venlafaxine Er ( 24hr) 150 Mg Capsu le PO 150 mg DAILY COUNT INCLUDES THE [facility] Administration Vitals/I&O/Wt Last Vital Signs Temp 97.4 F L 06/26/22 05:57 Pulse 90 06/26/22 08:15 Resp 16 06/26/22 08:15 BP 146/76 06/26/22 08:00 Pulse Ox 96 06/26/22 08:15 O2 Del Method 06/26/22 08:15 O2 Flow Rate 2 06/26/22 02:00 FiO2 45 06/25/22 08:21 06/25/22 06/26/22 06/26/22 22:59 06:59 14:59 Intake Total 490 / 720 50 / 770 Output Total 600 / 2100 500 / 2600 Balance -110 / -1380 -450 / -1830 Weight last 48 hrs Weight 66.633 kg Physical Exam Const: COMMON NORMALS: patient oriented x3 HENMT: COMMON NORMALS: normocephalic and atraumatic HEAD & SCALP: normocephalic and atraumatic Resp: OTHER: Bilateral clear Cardio: COMMON NORMALS: regular rate, regular rhythm, S1 normal heart sound present, S2 normal heart sound present, No gallops present (Cardio), No murmurs present (Cardio), No rub (Cardio) and Peripheral pulses 2+ throughout RATE: regular rate RHYTHM: regular rhythm HEART SOUNDS: S1 normal heart sound present and S2 normal heart sound present PERIPHERAL PULSES: Peripheral pulses 2+ throughout GI: COMMON NORMALS: Normal to inspection, nondistended, normoactive bowel sounds present, Soft to palpation, non-tender, No hepatosplenomegaly present and no masses AUSCULTATION: Yes normoactive bowel sounds PALPATION: Yes Soft to palpation and Yes No hepatosplenomegaly present RECTAL EXAM: deferred Extremity: NARRATIVE EXTREMITY EXAM: TRace B/L L/E Pitting edema. Neuro: COMMON NORMALS: patient oriented x3 Urinary Catheter Management: Munson: Cath Placed During This Visit: yes Reason for Continuing Indwelling Catheter: Accurate Measurement of Urinary Output in Critically Ill Patients Urinary Catheter Date of Insertion: 06/25/22 Urinary Catheter Time of Insertion: 06:00 Data 06/26/22 02:06 06/26/22 02:06 Micro: Microbiology 06/24/22 11:00 Blood Culture - Preliminary Blood NEGATIVE TO DATE 06/24/22 11:03 Blood Culture - Preliminary Blood NEGATIVE TO DATE A&P Assessment and plan (1) Acute exacerbation of CHF (congestive heart failure): (2) NSTEMI (non-ST elevated myocardial infarction): (3) Acute exacerbation of chronic obstructive airways disease: (4) Pneumonia: (5) CKD (chronic kidney disease) stage 3, GFR 30-59 ml/min: (6) HTN (hypertension): (7) Hyperthyroidism: (8) Diabetes mellitus: (9) Acute respiratory failure with hypoxia: Plan 71 year old female with past medical history of coronary artery disease S/P two previous bypass surgeries where three vessels were bypassed easch time. Her surgeries were in 1994 and in 2004. She had LOVETT to the LAD, saphenous venous graft to the diagonal branch of the left anterior descending and saphenous vein graft to the right coronary artery. She has also had multiple stents. Her last cardiac cath was at [facility] with Dr. Fiore in 2019 where only patent bypass was LOVETT-LAD. SVG to RCA and SVG to LCx were occluded. Medical management was recommended. Hypertension diabetes, COPD not on home oxygen, hypothyroidism, heart failure with reduced ejection fraction, CKD stage III with baseline serum creatinine around 1.7-2, history of COVID-19 pneumonia, recent NSTEMI, was discharged yesterday after being managed for NSTEMI: On medical management, with close cardiology follow-up, as the patient was chest pain-free and denied any Worsening shortness of breath, prior to discharge, she was saturating well on room air, denied any significant pain with ambulation, came in today after acute onset of worsening shortness of breath Started today this morning, left-sided chest pressure, she denied any, cough abdominal pain palpitation diaphoresis. Assessment: NSTEMI: Patient is coming with recurrent similar presentation, in the recent past.Lately she had attributed her shortness of breath to COVID. But given her underlying risk factors, and significant history of coronary artery disease, cardiac cause needs to be worked up. Patient has recent 2D echo done results appreciated: LV systolic function is moderately reduced with EF 35 to 40%.? Severe hypokinesis of inferior and inferolateral watters are seen.?Grade 1 diastolic dysfunction,Mildly dilated left atrium,?Mild to moderate mitral regurgitation,?Mild tricuspid regurgitation. Continue aspirin Plavix statin beta-lexy, sublingual nitro as needed, Imdur hydralazine. Cardiology on board Ac on chronic decompensated heart failure with reduced ejection fraction: X-ray chest is suggestive of pulmonary vascular congestion Trace bilateral lower extremity pitting edema Continue Lasix 40 IV daily Monitor intake output charting Monitor daily weight Monitor electrolytes Telemetry monitoring Possible pneumonia: Though less likely. X-ray chest is showing of possible infiltrates Procalcitonin is normal Follow sputum gram stain and culture Empirically on meropenem CKD stage III: Currently serum creatinine is at baseline Monitor BMP Avoid nephrotoxic's Strict intake output charting Low threshold for nephrology involvement, particularly so if the patient end up undergoing cardiac cath. COPD: Patient has minimum wheezing likely cardiac wheezing due to heart failure. Continue DuoNebs Solu-Medrol 40 twice daily Supplemental oxygen as needed Monitor x-ray chest as needed Monitor ABG as needed History of extensive coronary artery disease: Plan as above Diabetes: SSI Diabetic diet Monitor fingerstick glucose Hypertensive urgency: Hydralazine 75 mg p.o. 3 times daily Imdur 60 twice daily Will switch amlodipine to nicardipine xl 90 daily CODE STATUS: Full code DVT prophylaxis on subcu heparin Attestations Medical Necessity Statement*: Patient is to be in hospital for management of heart failure, NSTEMI, medical management optimization. Coding Level of Care Code Acute Code for g Fwd Diagnoses Acute exacerbation of CHF (congestive heart failure) I50.9 NSTEMI (non-ST elevated myocardial infarction) I21.4 Acute exacerbation of chronic obstructive airways disease J44.1 Pneumonia J18.9 CKD (chronic kidney disease) stage 3, GFR 30-59 ml/min N18.30 HTN (hypertension) I10 Hyperthyroidism E05.90 Diabetes mellitus E11.9 Acute respiratory failure with hypoxia J96.01
[2022-06-26 17:34] LABS: Glucose Point of Care 409 mg/dL (70-110)
[2022-06-26] MEDS: atorvastatin 40 mg Tablet PO (20:14)
[2022-06-26 22:13] LABS: Glucose Point of Care 235 mg/dL (70-110)
[2022-06-26] MEDS: acetaminophen 325 mg Tablet 650 MG PO (22:24)
[2022-06-26] MEDS: tizanidine 4 mg Tablet PO (22:24)
[2022-06-27] VITALS (14 sets, daily range): BP systolic 100–158; BP diastolic 56–76; PULSE 58–83; RESP 16–19; TEMP 36.4–36.9; O2SAT 92–97
[2022-06-27] MEDS: heparin 5,000 unit/mL INJ 1 mL 5000 UNIT SUBCUT ×2 (00:58→12:52)
[2022-06-27] MEDS: meropenem 500 MG in sodium chloride 0.9% (plus) 50 ML 100 MG IV ×2 (05:14→19:40)
[2022-06-27 05:29] LABS: Hematocrit 30.3 % (37.0-47.0); Hemoglobin 9.6 g/dL (11.5-15.3); Lymphocytes # 0.9 10^3/uL (0.8-4.8); Lymphocytes % 10.3 %; Mean Corpuscular HGB Conc 31.7 g/dL (30.0-36.0); Mean Corpuscular Hemoglobin 30.3 pg (28.0-34.0); Mean Corpuscular Volume 95.6 fl (81-99); Mean Platelet Volume 10.8 fL (7.4-10.4); Monocytes # 0.2 10^3/uL (0.2-0.9); Monocytes % 2.1 %; Neutrophils # 7.72 10^3/uL (1.8-7.7); Neutrophils % 87.1 %; Nucleated Red Blood Cells % 0 %; Platelet Count 260 10^3/cmm (130-400); Red Blood Count 3.17 10^6/uL (4.1-5.3); Red Cell Distribution Width 14.4 % (12.1-15.1); White Blood Count 8.9 10^3/uL (4.0-10.0)
[2022-06-27 05:55] LABS: Alanine Aminotransferase 18 U/L (0-33); Albumin Level 2.7 g/dL (3.5-5.2); Alkaline Phosphatase 78 U/L (35-105); Anion Gap 16.3 (5-19); Aspartate Amino Transferase 20 U/L (0-32); Blood Urea Nitrogen 75 mg/dL (8-23); Carbon Dioxide 22 mmol/L (22-29); Chloride 100 mmol/L (98-107); Globulin 2.7 g/dL (1.3-4.6); Glucose 354 mg/dL (65-115); Osmolality Calculated 312 mOsm/kg (285-295); Potassium 5.3 mmol/L (3.5-5.1); Sodium 133 mmol/L (136-145); Total Bilirubin 0.2 mg/dL (0.15-1.2); Total Protein 5.4 g/dL (6.6-8.7)
[2022-06-27 06:31] LABS: Glucose Point of Care 343 mg/dL (70-110)
[2022-06-27] MEDS: hyDRALAzine 25 mg Tablet 75 MG PO ×3 (08:32→21:24)
[2022-06-27] MEDS: methIMAzole 5 MG Tablet PO (08:32)
[2022-06-27] MEDS: venlafaxine ER (24HR) 150 mg Capsule PO (08:32)
[2022-06-27] MEDS: aspirin 81 mg EC Tablet PO (08:32)
[2022-06-27] MEDS: isosorbide mononitrate ER 60 mg Tablet PO ×2 (08:32→19:30)
[2022-06-27] MEDS: metoprolol succinate ER (24 HR) 50 mg Tablet PO (08:35)
[2022-06-27] MEDS: insulin lispro 100 unit/1 mL SUBCUT ×4 (08:35→22:33)
[2022-06-27] MEDS: clopidogrel 75 mg Tablet PO (08:35)
[2022-06-27] MEDS: venlafaxine ER (24HR) 75 mg Capsule PO (08:35)
[2022-06-27] MEDS: NIFEdipine ER (24 hr) 30 mg Tablet 90 MG PO (08:35)
[2022-06-27] MEDS: ipratropium-albuterol 3 mL Neb INHALATION ×3 (08:51→19:20)
--- NOTE | 2022-06-27 09:09 | PM.PN ---
Subjective Subjective: Patient feels shortness of breath today. Creatinine and BUN worsened today. Vitals/I&O/Wt Last Vital Signs Temp 98.0 F 06/27/22 04:04 Pulse 83 06/27/22 09:01 Resp 18 06/27/22 08:51 BP 158/76 06/27/22 08:00 Pulse Ox 96 06/27/22 08:51 O2 Del Method 06/27/22 08:51 O2 Flow Rate 2 06/26/22 02:00 FiO2 45 06/25/22 08:21 06/26/22 06/27/22 06/27/22 22:59 06:59 14:59 Intake Total 410 / 1020 290 / 1310 Output Total 450 / 450 100 / 550 Balance -40 / 570 190 / 760 Weight last 48 hrs Weight 146 lb 6 oz Weight 146 lb 14.4 oz Physical Exam Narrative: GENERAL: Patient is alert, awake and oriented x3. [] NECK: No jugular vein distension. [] HEENT: No cyanosis. No icterus. No pallor. [] HEART: Regular S1 and S2. No murmur, rub or gallop. [] LUNGS: Diminished breath sounds bilaterally, has mild crackles CENTRAL NERVOUS SYSTEM: Grossly nonfocal. [] EXTREMITIES: Lower extremities with 1+ edema bilaterally. Urinary Catheter Management: Munson: Cath Placed During This Visit: yes Reason for Continuing Indwelling Catheter: Accurate Measurement of Urinary Output in Critically Ill Patients Urinary Catheter Date of Insertion: 06/25/22 Urinary Catheter Time of Insertion: 06:00 Data 06/27/22 04:34 06/27/22 04:34 A&P Assessment and plan (1) Acute respiratory failure with hypoxia: (2) Diabetes mellitus: (3) Hyperthyroidism: (4) HTN (hypertension): (5) CKD (chronic kidney disease) stage 3, GFR 30-59 ml/min: (6) Acute exacerbation of CHF (congestive heart failure): Plan Patient's renal function has worsened. 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 Can give gentle hydration. Her recurrent pulmonary edema episodes likely secondary to hypertensive urgency/CKD worsening on top of recent COVID infections. Continue holding lasix. Continue aspirin and Plavix Thank you for involving us with care of this patient. We will continue to follow. Please call with questions Attestations Medical Necessity Statement*: Care expected to cross 2 midnights. Coding Level of Care Code Acute Code for Chg Fwd Diagnoses Acute respiratory failure with hypoxia J96.01 Diabetes mellitus E11.9 Hyperthyroidism E05.90 HTN (hypertension) I10 CKD (chronic kidney disease) stage 3, GFR 30-59 ml/min N18.30 Acute exacerbation of CHF (congestive heart failure) I50.9
[2022-06-27 11:35] LABS: Glucose Point of Care 166 mg/dL (70-110)
[2022-06-27] MEDS: sodium chloride 0.9% 1,000 ML 30 ML IV (11:37)
--- NOTE | 2022-06-27 11:44 | PC.SOCIAL ---
Pg 2 IMM Explained to pt Pg 2 IMM. No questions voiced. Provided pt a copy. Initialed, dated, & timed a copy & placed in chart.
--- NOTE | 2022-06-27 16:08 | P.PN_ITS ---
Subjective Subjective: Patient was seen and examined this morning she had an episode of shortness of breath, this morning, Responded well to nebs, serum creatinine has slightly worsened today to 2.5, BUN has also trended up to 75, serum potassium is 5.3, blood pressure is better controlled, will start her on gentle IV hydration with NS at 30 cc an hour, monitor intake and output charting. Medications: Medication Review Details: Generic Name Dose Route Start Last Admin Trade Name Freq PRN Reason Stop Dose Admin Acetaminophen 650 mg 06/24/22 12:59 06/26/22 22:24 Acetaminophen 32 5 Mg Tablet PO 650 mg Q6H PRN Administration Mild/Mod Pain Or Temp >/= 101 Albuterol/Ipratrop ium 3 ml 06/24/22 14:00 06/27/22 14:18 Ipratropium-Albu terol 3 Ml Neb INHALATION 3 ml Q6H.RESP YASMANI Administration Aspirin 81 mg 06/25/22 09:00 06/27/22 08:32 Aspirin 81 Mg Ec Tablet PO 81 mg DAILY YASMANI Administration Atorvastatin Calci um 40 mg 06/24/22 21:00 06/26/22 20:14 Atorvastatin 40 Mg Tablet PO 40 mg BEDTIME YASMANI Administration Clopidogrel Bisulf ate 75 mg 06/25/22 09:00 06/27/22 08:35 Clopidogrel 75 M g Tablet PO 75 mg DAILY YASMANI Administration Furosemide 40 mg 06/25/22 09:00 06/25/22 08:15 Furosemide 10 Mg /Ml Sdv 4ml IVP 40 mg DAILY YASMANI Administration Heparin Sodium (Po rcine) 5,000 unit 06/24/22 13:00 06/27/22 12:52 Heparin 5,000 Un it/Ml Inj 1 Ml SUBCUT 5,000 unit Q12H YASMANI Administration Hydralazine HCl 75 mg 06/25/22 21:00 06/27/22 08:32 Hydralazine 25 M g Tablet PO 75 mg TID YASMANI Administration Meropenem 500 mg/ Sodium 50 mls @ 100 mls/ hr 06/24/22 18:00 06/27/22 05:56 Chloride IV Infused Q12H YASMANI Infusion Nitroglycerin/Dext damien 50 mg in 250 mls @ 0 mls/hr 06/25/22 06:30 06/25/22 06:[address] ip IV 5 mcg/min .Q0M YASMANI 1.5 mls/hr Administration Protocol Per Protocol Sodium Chloride 1,000 mls @ 30 ml s/hr 06/27/22 09:30 06/27/22 11:37 Sodium Chloride 0.9% IV 30 mls/hr .Q24H YASMANI Administration Insulin Human Lisp ro 0 unit 06/24/22 18:00 06/27/22 12:51 Insulin Lispro 1 00 Unit/1 Ml SUBCUT 2 unit WM&BEDTIME YASMANI Administration Protocol Isosorbide Mononit rate 60 mg 06/24/22 18:00 06/27/22 08:32 Isosorbide [place] itrate Er 60 Mg Ta blet PO 60 mg BID [facility] Administration Methimazole 5 mg 06/25/22 09:00 06/27/22 08:32 Methimazole 5 Mg Tablet PO 5 mg DAILY [facility] Administration Methylprednisolone Sodium Succinate 40 mg 06/27/22 09:30 06/27/22 10:54 Methylprednisolo ne Sod Succ 40 Mg/ Ml Inj IVP Not Given Q8H [facility] Metoprolol Succina te 50 mg 06/26/22 09:00 06/27/22 08:35 Metoprolol Succi rosie Er (24 Hr) 50 Mg Tablet PO 50 mg DAILY [facility] Administration Nifedipine 90 mg 06/27/22 09:00 06/27/22 08:35 Nifedipine Er (2 4 Hr) 30 Mg Tablet PO 90 mg DAILY [facility] Administration Nitroglycerin 0.4 mg 06/24/22 16:53 06/25/22 05:51 Nitroglycerin 0. 4 Mg Sublingual Ta blet SUBLINGUAL 0.4 mg Q5M PRN Administration CHEST PAIN Tizanidine HCl 4 mg 06/24/22 13:16 06/26/22 22:24 Tizanidine 4 Mg Tablet PO 4 mg DAILY PRN Administration MUSCLE SPASMS Venlafaxine HCl 75 mg 06/25/22 09:00 06/27/22 08:35 Venlafaxine Er ( 24hr) 75 Mg Capsul e PO 75 mg DAILY [facility] Administration Venlafaxine HCl 150 mg 06/25/22 09:00 06/27/22 08:32 Venlafaxine Er ( 24hr) 150 Mg Capsu le PO 150 mg DAILY [facility] Administration Vitals/I&O/Wt Last Vital Signs Temp 97.6 F 06/27/22 15:52 Pulse 68 06/27/22 15:52 Resp 17 06/27/22 14:19 BP 139/67 06/27/22 15:52 Pulse Ox 93 06/27/22 15:52 O2 Del Method 06/27/22 14:19 O2 Flow Rate 2 06/26/22 02:00 FiO2 45 06/25/22 08:21 06/27/22 06/27/22 06/27/22 06:59 14:59 22:59 Intake Total 290 / 1310 540 / 540 Output Total 100 / 550 Balance 190 / 760 540 / 540 Weight last 48 hrs Weight 66.395 kg Weight 66.633 kg Physical Exam Const: COMMON NORMALS: patient oriented x3 HENMT: COMMON NORMALS: normocephalic and atraumatic HEAD & SCALP: normocephalic and atraumatic Resp: OTHER: Minimal bilateral expiratory wheezing Cardio: COMMON NORMALS: regular rate, regular rhythm, S1 normal heart sound present, S2 normal heart sound present, No gallops present (Cardio), No murmurs present (Cardio), No rub (Cardio) and Peripheral pulses 2+ throughout RATE: regular rate RHYTHM: regular rhythm HEART SOUNDS: S1 normal heart sound p resent and S2 normal heart sound present PERIPHERAL PULSES: Peripheral pulses 2+ throughout GI: COMMON NORMALS: Normal to inspection, nondistended, normoactive bowel sounds present, Soft to palpation, non-tender, No hepatosplenomegaly present and no masses AUSCULTATION: Yes normoactive bowel sounds PALPATION: Yes Soft to palpation and Yes No hepatosplenomegaly present RECTAL EXAM: deferred Extremity: NARRATIVE EXTREMITY EXAM: TRace B/L L/E Pitting edema. Neuro: COMMON NORMALS: patient oriented x3 Urinary Catheter Management: Munson: Cath Placed During This Visit: yes Reason for Continuing Indwelling Catheter: Accurate Measurement of Urinary Output in Critically Ill Patients Urinary Catheter Date of Insertion: 06/25/22 Urinary Catheter Time of Insertion: 06:00 Data 06/27/22 04:34 06/27/22 04:34 A&P Assessment and plan (1) Acute exacerbation of CHF (congestive heart failure): (2) NSTEMI (non-ST elevated myocardial infarction): (3) Acute exacerbation of chronic obstructive airways disease: (4) Pneumonia: (5) CKD (chronic kidney disease) stage 3, GFR 30-59 ml/min: (6) HTN (hypertension): (7) Hyperthyroidism: (8) Diabetes mellitus: (9) Acute respiratory failure with hypoxia: Plan 71 year old female with past medical history of coronary artery disease S/P two previous bypass surgeries where three vessels were bypassed easch time. Her surgeries were in 1994 and in 2004. She had LOVETT to the LAD, saphenous venous graft to the diagonal branch of the left anterior descending and saphenous vein graft to the right coronary artery. She has also had multiple stents. Her last cardiac cath was at [facility] with Dr. Fiore in 2019 where only patent bypass was LOVETT- LAD. SVG to RCA and SVG to LCx were occluded. Medical management was recommended. Hypertension diabetes, COPD not on home oxygen, hypothyroidism, heart failure with reduced ejection fraction, CKD stage III with baseline serum creatinine around 1.7-2, history of COVID-19 pneumonia, recent NSTEMI, was discharged yesterday after being managed for NSTEMI: On medical management, with close cardiology follow-up, as the patient was chest pain-free and denied any Worsening shortness of breath, prior to discharge, she was saturating well on room air, denied any significant pain with ambulation, came in today after acute onset of worsening shortness of breath Started today this morning, left-sided chest pressure, she denied any, cough abdominal pain palpitation diaphoresis. Assessment: NSTEMI: Patient is coming with recurrent similar presentation, in the recent past.Lately she had attributed her shortness of breath to COVID. But given her underlying risk factors, and significant history of coronary artery disease, cardiac cause needs to be worked up. Patient has recent 2D echo done results appreciated: LV systolic function is moderately reduced with EF 35 to 40%.? Severe hypokinesis of inferior and inferolateral watters are seen.?Grade 1 diastolic dysfunction,Mildly dilated left atrium,?Mild to moderate mitral regurgitation,?Mild tricuspid regurgitation. Continue aspirin Plavix statin beta-lexy, sublingual nitro as needed, Imdur hydralazine. Cardiology on board Ac on chronic decompensated heart failure with reduced ejection fraction: X-ray chest is suggestive of pulmonary vascular congestion Trace bilateral lower extremity pitting edema Continue Lasix 40 IV daily Monitor intake output charting Monitor daily weight Monitor electrolytes Telemetry monitoring Possible pneumonia: Though less likely. X-ray chest is showing of possible infiltrates Procalcitonin is normal Follow sputum gram stain and culture Empirically on meropenem CKD stage III: Currently serum creatinine is at baseline Monitor BMP Avoid nephrotoxic's Strict intake output charting Low threshold for nephrology involvement, particularly so if the patient end up undergoing cardiac cath. COPD: Patient has minimum wheezing likely cardiac wheezing due to heart failure. Continue DuoNebs Solu-Medrol 40 TID Supplemental oxygen as needed Monitor x-ray chest as needed Monitor ABG as needed History of extensive coronary artery disease: Plan as above Diabetes: Lantus 15 unit subcu daily SSI Diabetic diet Monitor fingerstick glucose Hyperkalemia: Continue Nebs Telemetry monitoring Monitor BMP Hypertensive urgency: Hydralazine 75 mg p.o. 3 times daily Imdur 60 twice daily Will switch amlodipine to nicardipine xl 90 daily CODE STATUS: Full code DVT prophylaxis on subcu heparin Attestations Medical Necessity Statement*: Needs to be in hospital for monitoring of kidney function. Medical optimization Coding Level of Care Code Acute Code for Chg Fwd Exam Expanded Problem Focused Diagnoses Acute exacerbation of CHF (congestive heart failure) I50.9 NSTEMI (non-ST elevated myocardial infarction) I21.4 Acute exacerbation of chronic obstructive airways disease J44.1 Pneumonia J18.9 CKD (chronic kidney disease) stage 3, GFR 30-59 ml/min N18.30 HTN (hypertension) I10 Hyperthyroidism E05.90 Diabetes mellitus E11.9 Acute respiratory failure with hypoxia J96.01
[2022-06-27 16:53] LABS: Glucose Point of Care 359 mg/dL (70-110)
[2022-06-27] MEDS: atorvastatin 40 mg Tablet PO (21:24)
[2022-06-27 21:47] LABS: Glucose Point of Care 345 mg/dL (70-110)
[2022-06-27] MEDS: insulin glargine 100 units/1 mL 15 UNIT SUBCUT (22:33)
[2022-06-27] MEDS: tizanidine 4 mg Tablet PO (22:37)
[2022-06-27] MEDS: acetaminophen 325 mg Tablet 650 MG PO (22:37)
[2022-06-28] VITALS (22 sets, daily range): BP systolic 119–155; BP diastolic 61–74; PULSE 62–88; RESP 15–35; TEMP 36.3–36.7; O2SAT 85–98
[2022-06-28] MEDS: heparin 5,000 unit/mL INJ 1 mL 5000 UNIT SUBCUT ×2 (00:16→12:28)
[2022-06-28] MEDS: ipratropium-albuterol 3 mL Neb INHALATION ×4 (02:57→19:22)
[2022-06-28 05:49] LABS: Basophils % 0.1 %; Hematocrit 33.7 % (37.0-47.0); Hemoglobin 10.6 g/dL (11.5-15.3); Lymphocytes # 0.8 10^3/uL (0.8-4.8); Lymphocytes % 7.6 %; Mean Corpuscular HGB Conc 31.5 g/dL (30.0-36.0); Mean Corpuscular Hemoglobin 29.9 pg (28.0-34.0); Mean Corpuscular Volume 94.9 fl (81-99); Mean Platelet Volume 10.7 fL (7.4-10.4); Monocytes # 0.1 10^3/uL (0.2-0.9); Monocytes % 0.8 %; Neutrophils # 10.03 10^3/uL (1.8-7.7); Neutrophils % 91.1 %; Nucleated Red Blood Cells % 0 %; Platelet Count 321 10^3/cmm (130-400); Red Blood Count 3.55 10^6/uL (4.1-5.3); Red Cell Distribution Width 14.4 % (12.1-15.1)
[2022-06-28] MEDS: meropenem 500 MG in sodium chloride 0.9% (plus) 50 ML 100 MG IV ×2 (05:57→17:27)
[2022-06-28 06:22] LABS: Alanine Aminotransferase 22 U/L (0-33); Albumin Level 3.2 g/dL (3.5-5.2); Alkaline Phosphatase 80 U/L (35-105); Anion Gap 19.2 (5-19); Aspartate Amino Transferase 26 U/L (0-32); Blood Urea Nitrogen 77 mg/dL (8-23); Calcium 8.8 mg/dL (8.5-10.5); Carbon Dioxide 18 mmol/L (22-29); Chloride 102 mmol/L (98-107); Globulin 2.8 g/dL (1.3-4.6); Glucose 131 mg/dL (65-115); Osmolality Calculated 303 mOsm/kg (285-295); Potassium 5.2 mmol/L (3.5-5.1); Sodium 134 mmol/L (136-145); Total Bilirubin 0.2 mg/dL (0.15-1.2)
[2022-06-28 06:43] LABS: Glucose Point of Care 174 mg/dL (70-110)
--- NOTE | 2022-06-28 07:33 | P.PN_ITS ---
Subjective Subjective: Patient's renal function is stable today. Feeling short of breath Vitals/I&O/Wt Last Vital Signs Temp 97.9 F 06/28/22 04:32 Pulse 63 06/28/22 06:00 Resp 18 06/28/22 04:32 BP 128/66 06/28/22 04:32 Pulse Ox 91 06/28/22 04:32 O2 Del Method 06/28/22 04:32 O2 Flow Rate 2 06/26/22 02:00 FiO2 45 06/25/22 08:21 06/27/22 06/28/22 06/28/22 22:59 06:59 14:59 Intake Total 650 / 1190 170 / 1360 Output Total 900 / 900 100 / 1000 Balance -250 / 290 70 / 360 Weight last 48 hrs Weight 157 lb 5 oz Weight 146 lb 6 oz Physical Exam Narrative: GENERAL: Patient is alert, awake and oriented x3. [] NECK: No jugular vein distension. [] HEENT: No cyanosis. No icterus. No pallor. [] HEART: Regular S1 and S2. No murmur, rub or gallop. [] LUNGS: Diminished breath sounds bilaterally, has mild crackles CENTRAL NERVOUS SYSTEM: Grossly nonfocal. [] EXTREMITIES: Lower extremities with 1+ edema bilaterally. Urinary Catheter Management: Munson: Cath Placed During This Visit: yes Reason for Continuing Indwelling Catheter: Accurate Measurement of Urinary Output in Critically Ill Patients Urinary Catheter Date of Insertion: 06/25/22 Urinary Catheter Time of Insertion: 06:00 Data 06/28/22 04:48 06/28/22 04:48 A&P Assessment and plan (1) Acute respiratory failure with hypoxia: (2) Diabetes mellitus: (3) Hyperthyroidism: (4) HTN (hypertension): (5) CKD (chronic kidney disease) stage 3, GFR 30-59 ml/min: (6) Acute exacerbation of CHF (congestive heart failure): Plan Renal dysfunction secondary to RICARDO and underlying CKD. Continue to monitor. Will need to restart diuretics once renal function starts improving. Continue aspirin Plavix Thank you for involving us with care of this patient. We will continue to follow. Please call with questions Attestations Medical Necessity Statement*: Care expected to cross 2 midnights. Coding Level of Care Code Acute Code for [facility] Diagnoses Acute respiratory failure with hypoxia J96.01 Diabetes mellitus E11.9 Hyperthyroidism E05.90 HTN (hypertension) I10 CKD (chronic kidney disease) stage 3, GFR 30-59 ml/min N18.30 Acute exacerbation of CHF (congestive heart failure) I50.9
[2022-06-28] MEDS: insulin lispro 100 unit/1 mL SUBCUT ×4 (08:25→21:15)
[2022-06-28] MEDS: methIMAzole 5 MG Tablet PO (08:33)
[2022-06-28] MEDS: hyDRALAzine 25 mg Tablet 75 MG PO ×3 (08:33→21:16)
[2022-06-28] MEDS: isosorbide mononitrate ER 60 mg Tablet PO ×2 (08:33→17:28)
[2022-06-28] MEDS: metoprolol succinate ER (24 HR) 50 mg Tablet PO (08:33)
[2022-06-28] MEDS: NIFEdipine ER (24 hr) 30 mg Tablet 90 MG PO (08:34)
[2022-06-28] MEDS: aspirin 81 mg EC Tablet PO (08:34)
[2022-06-28] MEDS: venlafaxine ER (24HR) 75 mg Capsule PO (08:34)
[2022-06-28] MEDS: clopidogrel 75 mg Tablet PO (08:34)
[2022-06-28] MEDS: venlafaxine ER (24HR) 150 mg Capsule PO (08:35)
[2022-06-28 11:50] LABS: Glucose Point of Care 329 mg/dL (70-110)
[2022-06-28] MEDS: guaiFENesin 600 mg Tablet 1200 MG PO ×2 (12:27→17:28)
[2022-06-28] MEDS: pantoprazole DR 40 mg Tablet PO (12:28)
--- NOTE | 2022-06-28 13:54 | PM.PN ---
Subjective Subjective: Patient was seen and examined this morning she was complaining of shortness of breath with minimal exertion, serum creatinine appears to have peaked, though BUN is still going up, 1 L urine output yesterday, We will continue with gentle IV hydration, Lasix as needed, blood pressure is better controlled.She was also complaining of heartburn, has been started on po Protonix. Medications: Medication Review Details: Generic Name Dose Route Start Last Admin Trade Name Freq PRN Reason Stop Dose Admin Acetaminophen 650 mg 06/24/22 12:59 06/27/22 22:37 Acetaminophen 32 5 Mg Tablet PO 650 mg Q6H PRN Administration Mild/Mod Pain Or Temp >/= 101 Albuterol/Ipratrop ium 3 ml 06/24/22 14:00 06/28/22 13:46 Ipratropium-Albu terol 3 Ml Neb INHALATION 3 ml Q6H.RESP YASMANI Administration Aspirin 81 mg 06/25/22 09:00 06/28/22 08:34 Aspirin 81 Mg Ec Tablet PO 81 mg DAILY YASMANI Administration Atorvastatin Calci um 40 mg 06/24/22 21:00 06/27/22 21:24 Atorvastatin 40 Mg Tablet PO 40 mg BEDTIME YASMANI Administration Clopidogrel Bisulf ate 75 mg 06/25/22 09:00 06/28/22 08:34 Clopidogrel 75 M g Tablet PO 75 mg DAILY YASMANI Administration Furosemide 40 mg 06/25/22 09:00 06/25/22 08:15 Furosemide 10 Mg /Ml Sdv 4ml IVP 40 mg DAILY YASMANI Administration Guaifenesin 1,200 mg 06/28/22 10:10 06/28/22 12:27 Guaifenesin 600 Mg Tablet PO 1,200 mg BID YASMANI Administration Heparin Sodium (Po rcine) 5,000 unit 06/24/22 13:00 06/28/22 12:28 Heparin 5,000 Un it/Ml Inj 1 Ml SUBCUT 5,000 unit Q12H YASMANI Administration Hydralazine HCl 75 mg 06/25/22 21:00 06/28/22 08:33 Hydralazine 25 M g Tablet PO 75 mg TID YASMANI Administration Meropenem 500 mg/ Sodium 50 mls @ 100 mls/ hr 06/24/22 18:00 06/28/22 06:32 Chloride IV Infused Q12H YASMANI Infusion Nitroglycerin/Dext damien 50 mg in 250 mls @ 0 mls/hr 06/25/22 06:30 06/25/22 06:[address] ip IV 5 mcg/min .Q0M YASMANI 1.5 mls/hr Administration Protocol Per Protocol Sodium Chloride 1,000 mls @ 30 ml s/hr 06/27/22 09:30 06/27/22 11:37 Sodium Chloride 0.9% IV 30 mls/hr .Q24H YASMANI Administration Insulin Glargine 15 unit 06/27/22 21:00 06/27/22 22:33 Insulin Glargine 100 Units/1 Ml SUBCUT 15 unit BEDTIME YASMANI Administration Insulin Human Lisp ro 0 unit 06/24/22 18:00 06/28/22 12:27 Insulin Lispro 1 00 Unit/1 Ml SUBCUT 10 unit WM&BEDTIME YASMANI Administration Protocol Isosorbide Mononit rate 60 mg 06/24/22 18:00 06/28/22 08:33 Isosorbide Ferrum itrate Er 60 Mg Ta blet PO 60 mg BID YASMANI Administration Methimazole 5 mg 06/25/22 09:00 06/28/22 08:33 Methimazole 5 Mg Tablet PO 5 mg DAILY [facility] Administration Methylprednisolone Sodium Succinate 40 mg 06/27/22 09:30 06/28/22 08:34 Methylprednisolo ne Sod Succ 40 Mg/ Ml Inj IVP 40 mg Q8H YASMANI Administration Metoprolol Succina te 50 mg 06/26/22 09:00 06/28/22 08:33 Metoprolol Succi rosie Er (24 Hr) 50 Mg Tablet PO 50 mg DAILY YASMANI Administration Nifedipine 90 mg 06/27/22 09:00 06/28/22 08:34 Nifedipine Er (2 4 Hr) 30 Mg Tablet PO 90 mg DAILY [facility] Administration Nitroglycerin 0.4 mg 06/24/22 16:53 06/25/22 05:51 Nitroglycerin 0. 4 Mg Sublingual Ta blet SUBLINGUAL 0.4 mg Q5M PRN Administration CHEST PAIN Pantoprazole Sodiu m 40 mg 06/28/22 10:45 06/28/22 12:[address] 40 Mg Tablet PO 40 mg DAILY YASMANI Administration Tizanidine HCl 4 mg 06/24/22 13:16 06/27/22 22:37 Tizanidine 4 Mg Tablet PO 4 mg DAILY PRN Administration MUSCLE SPASMS Venlafaxine HCl 75 mg 06/25/22 09:00 06/28/22 08:34 Venlafaxine Er ( 24hr) 75 Mg Capsul e PO 75 mg DAILY YASMANI Administration Venlafaxine HCl 150 mg 06/25/22 09:00 06/28/22 08:35 Venlafaxine Er ( 24hr) 150 Mg Capsu le PO 150 mg DAILY YASMANI Administration Vitals/I&O/Wt Last Vital Signs Temp 97.5 F L 06/28/22 11:54 Pulse 76 06/28/22 13:49 Resp 16 06/28/22 13:47 BP 149/70 06/28/22 11:54 Pulse Ox 92 06/28/22 13:47 O2 Del Method 06/28/22 13:47 O2 Flow Rate 2 06/26/22 02:00 FiO2 45 06/25/22 08:21 06/27/22 06/28/22 06/28/22 22:59 06:59 14:59 Intake Total 650 / 1190 170 / 1360 840 / 840 Output Total 900 / 900 100 / 1000 Balance -250 / 290 70 / 360 840 / 840 Weight last 48 hrs Weight 71.356 kg Weight 66.395 kg Physical Exam Const: COMMON NORMALS: patient oriented x3 HENMT: COMMON NORMALS: normocephalic and atraumatic HEAD & SCALP: normocephalic and atraumatic Resp: OTHER: Minimal bilateral expiratory wheezing, minimal bilateral basal crackles. Cardio: COMMON NORMALS: regular rate, regular rhythm, S1 normal heart sound present, S2 normal heart sound present, No gallops present (Cardio), No murmurs present (Cardio), No rub (Cardio) and Peripheral pulses 2+ throughout RATE: regular rate RHYTHM: regular rhythm HEART SOUNDS: S1 normal heart sound present and S2 normal heart sound present PERIPHERAL PULSES: Peripheral pulses 2+ throughout GI: COMMON NORMALS: Normal to inspection, nondistended, normoactive bowel sounds present, Soft to palpation, non-tender, No hepatosplenomegaly present and no masses AUSCULTATION: Yes normoactive bowel sounds PALPATION: Yes Soft to palpation and Yes No hepatosplenomegaly present RECTAL EXAM: deferred Extremity: NARRATIVE EXTREMITY EXAM: TRace B/L L/E Pitting edema. Neuro: COMMON NORMALS: patient oriented x3 Urinary Catheter Management: Munson: Cath Placed During This Visit: yes Reason for Continuing Indwelling Catheter: Accurate Measurement of Urinary Output in Critically Ill Patients Urinary Catheter Date of Insertion: 06/25/22 Urinary Catheter Time of Insertion: 06:00 Data 06/28/22 04:48 06/28/22 04:48 A&P Assessment and plan (1) Acute exacerbation of CHF (congestive heart failure): (2) NSTEMI (non-ST elevated myocardial infarction): (3) Acute exacerbation of chronic obstructive airways disease: (4) Pneumonia: (5) CKD (chronic kidney disease) stage 3, GFR 30-59 ml/min: (6) HTN (hypertension): (7) Hyperthyroidism: (8) Diabetes mellitus: (9) Acute respiratory failure with hypoxia: Plan 71 year old female with past medical history of coronary artery disease S/P two previous bypass surgeries where three vessels were bypassed easch time. Her surgeries were in 1994 and in 2004. She had LOVETT to the LAD, saphenous venous graft to the diagonal branch of the left anterior descending and saphenous vein graft to the right coronary artery. She has also had multiple stents. Her last cardiac cath was at [facility] with Dr. Fiore in 2019 where only patent bypass was LOVETT-LAD. SVG to RCA and SVG to LCx were occluded. Medical management was recommended. Hypertension diabetes, COPD not on home oxygen, hypothyroidism, heart failure with reduced ejection fraction, CKD stage III with baseline serum creatinine around 1.7-2, history of COVID-19 pneumonia, recent NSTEMI, was discharged yesterday after being managed for NSTEMI: On medical management, with close cardiology follow-up, as the patient was chest pain-free and denied any Worsening shortness of breath, prior to discharge, she was saturating well on room air, denied any significant pain with ambulation, came in today after acute onset of worsening shortness of breath Started today this morning, left-sided chest pressure, she denied any, cough abdominal pain palpitation diaphoresis. Assessment: NSTEMI: Patient is coming with recurrent similar presentation, in the recent past.Lately she had attributed her shortness of breath to COVID. But given her underlying risk factors, and significant history of coronary artery disease, cardiac cause needs to be worked up. Patient has recent 2D echo done results appreciated: LV systolic function is moderately reduced with EF 35 to 40%.? Severe hypokinesis of inferior and inferolateral watters are seen.?Grade 1 diastolic dysfunction,Mildly dilated left atrium,?Mild to moderate mitral regurgitation,?Mild tricuspid regurgitation. Continue aspirin Plavix statin beta-lexy, sublingual nitro as needed, Imdur hydralazine. S/p: Coronary angiogram: No significant change since her prior cath in 2019, patent LAD patent LCx. Cardiology on board Ac on chronic decompensated heart failure with reduced ejection fraction: X-ray chest is suggestive of pulmonary vascular congestion Trace bilateral lower extremity pitting edema Was on Lasix 40 IV daily, currently on hold. Monitor intake output charting Monitor daily weight Monitor electrolytes Telemetry monitoring Possible pneumonia: Though less likely. X-ray chest is showing of possible infiltrates Procalcitonin is normal Follow sputum gram stain and culture Empirically on meropenem DOLORES ON CKD stage III: Likely multifactorial secondary decompensated heart failure, possible RICARDO, possible secondary to hypertensive emergency. Admission serum creatinine was at baseline at 1.8 Maximum up trended serum creatinine has been 2.5 Monitor BMP Avoid nephrotoxic's Strict intake output charting Low threshold for nephrology involvement, if kidney function continues to worsen. COPD: Patient has minimum wheezing likely cardiac wheezing due to heart failure. Continue DuoNebs Solu-Medrol 40 TID Supplemental oxygen as needed Monitor x-ray chest as needed Monitor ABG as needed History of extensive coronary artery disease: Plan as above Diabetes: Lantus 15 unit subcu daily SSI Diabetic diet Monitor fingerstick glucose Hyperkalemia: Continue Nebs Telemetry monitoring Monitor BMP Hypertensive emergency.: Hydralazine 75 mg p.o. 3 times daily Imdur 60 twice daily Will switch amlodipine to nicardipine xl 90 daily CODE STATUS: Full code DVT prophylaxis on subcu heparin Attestations Medical Necessity Statement*: For monitoring of kidney function. Coding Level of Care Code Acute Code for Chg Fwd Exam Expanded Problem Focused Diagnoses Acute exacerbation of CHF (congestive heart failure) I50.9 NSTEMI (non-ST elevated myocardial infarction) I21.4 Acute exacerbation of chronic obstructive airways disease J44.1 Pneumonia J18.9 CKD (chronic kidney disease) stage 3, GFR 30-59 ml/min N18.30 HTN (hypertension) I10 Hyperthyroidism E05.90 Diabetes mellitus E11.9 Acute respiratory failure with hypoxia J96.01
[2022-06-28 16:31] LABS: Glucose Point of Care 223 mg/dL (70-110)
--- NOTE | 2022-06-28 16:35 | PC.NURSE ---
1600 Patient C/O of shortness of breath and asked to be placed on bipap. resp rate 32 [id number] on room air. placed on 2 liters 02 per nc and 02 sat increased to 86%. patient monitered. RT notified. 1610 02 increased to 2.5 lpm sa02 increased to 88% 1615 Sa02 87-89 % 02 increased to 3 lpm. 1620 RT at bedside patient sa02 90% on 3 lpm. patient placed on bipap sa02 increased from 90to 94 % patient states it is now easier to breath with bipap on.
[2022-06-28 21:00] LABS: Glucose Point of Care 218 mg/dL (70-110)
[2022-06-28] MEDS: sodium chloride 0.9% 1,000 ML 30 ML IV (21:15)
[2022-06-28] MEDS: atorvastatin 40 mg Tablet PO (21:16)
[2022-06-28] MEDS: insulin glargine 100 units/1 mL 15 UNIT SUBCUT (21:16)
[2022-06-28] MEDS: acetaminophen 325 mg Tablet 650 MG PO (21:47)
[2022-06-28] MEDS: tizanidine 4 mg Tablet PO (21:48)
[2022-06-29] VITALS (16 sets, daily range): BP systolic 104–157; BP diastolic 52–83; PULSE 50–105; RESP 13–26; TEMP 36.3–36.7; O2SAT 93–100
[2022-06-29] MEDS: ipratropium-albuterol 3 mL Neb INHALATION ×3 (01:42→13:31)
[2022-06-29] MEDS: heparin 5,000 unit/mL INJ 1 mL 5000 UNIT SUBCUT ×2 (01:48→12:23)
[2022-06-29 04:55] LABS: Hematocrit 32.2 % (37.0-47.0); Hemoglobin 10.1 g/dL (11.5-15.3); Lymphocytes # 0.9 10^3/uL (0.8-4.8); Mean Corpuscular HGB Conc 31.4 g/dL (30.0-36.0); Mean Corpuscular Hemoglobin 29.9 pg (28.0-34.0); Mean Corpuscular Volume 95.3 fl (81-99); Mean Platelet Volume 11.1 fL (7.4-10.4); Monocytes # 0.3 10^3/uL (0.2-0.9); Monocytes % 3.6 %; Neutrophils # 7.36 10^3/uL (1.8-7.7); Nucleated Red Blood Cells % 0 %; Platelet Count 257 10^3/cmm (130-400); Red Blood Count 3.38 10^6/uL (4.1-5.3); Red Cell Distribution Width 14.5 % (12.1-15.1); White Blood Count 8.6 10^3/uL (4.0-10.0)
[2022-06-29 05:00] LABS: Albumin Level 2.8 g/dL (3.5-5.2); Alkaline Phosphatase 72 U/L (35-105); Blood Urea Nitrogen 77 mg/dL (8-23); Calcium 8.4 mg/dL (8.5-10.5); Carbon Dioxide 20 mmol/L (22-29); Chloride 101 mmol/L (98-107); Globulin 2.8 g/dL (1.3-4.6); Glucose 144 mg/dL (65-115); Osmolality Calculated 298 mOsm/kg (285-295); Sodium 131 mmol/L (136-145); Total Bilirubin 0.2 mg/dL (0.15-1.2); Total Protein 5.6 g/dL (6.6-8.7)
[2022-06-29 05:03] LABS: Anion Gap 15.5 (5-19)
[2022-06-29 05:04] LABS: Alanine Aminotransferase 23 U/L (0-33); Aspartate Amino Transferase 30 U/L (0-32); Potassium 5.5 mmol/L (3.5-5.1)
[2022-06-29] MEDS: meropenem 500 MG in sodium chloride 0.9% (plus) 50 ML 100 MG IV (06:32)
[2022-06-29 06:51] LABS: Glucose Point of Care 177 mg/dL (70-110)
[2022-06-29] MEDS: insulin lispro 100 unit/1 mL SUBCUT ×3 (08:32→21:12)
[2022-06-29] MEDS: venlafaxine ER (24HR) 75 mg Capsule PO (08:32)
[2022-06-29] MEDS: hyDRALAzine 25 mg Tablet 75 MG PO ×3 (08:33→21:06)
[2022-06-29] MEDS: isosorbide mononitrate ER 60 mg Tablet PO ×2 (08:33→17:45)
[2022-06-29] MEDS: clopidogrel 75 mg Tablet PO (08:34)
[2022-06-29] MEDS: aspirin 81 mg EC Tablet PO (08:34)
[2022-06-29] MEDS: metoprolol succinate ER (24 HR) 50 mg Tablet PO (08:34)
[2022-06-29] MEDS: methIMAzole 5 MG Tablet PO (08:34)
[2022-06-29] MEDS: pantoprazole DR 40 mg Tablet PO (08:34)
[2022-06-29] MEDS: NIFEdipine ER (24 hr) 30 mg Tablet 90 MG PO (08:34)
[2022-06-29] MEDS: guaiFENesin 600 mg Tablet 1200 MG PO ×2 (08:34→17:45)
[2022-06-29] MEDS: venlafaxine ER (24HR) 150 mg Capsule PO (08:34)
[2022-06-29] MEDS: sodium chloride 0.9% 1,000 ML 30 ML IV (08:35)
[2022-06-29 11:32] LABS: Glucose Point of Care 248 mg/dL (70-110)
--- NOTE | 2022-06-29 13:35 | XR_ITS ---
WS: [id number] Exam: XR chest 1V portable [id number] Date/Time of Exam: 06/29/2022 1:40 PM Reason For Exam: sob Comparison 06/26/2022. Increasing airspace infiltrate in the right lung base. Mild cardiac enlargement unchanged. No pleural effusions. The lungs are completely expanded. Pulmonary vascular congestion. Signs of median sternot joseph and coronary artery bypass graft surgery. XR/XR chest 1V portable [id number] IMPRESSION: 1. Cardiac enlargement with pulmonary vascular congestion suggesting some degre e of mild CHF. 2. Airspace infiltrate in the right lung base suspicious for superimposed pneum onia.
[2022-06-29] MEDS: insulin regular-human 10 UNIT in SYRINGE 1 EACH IVP (14:03)
--- NOTE | 2022-06-29 14:36 | P.PN_ITS ---
Subjective Subjective: Hospital course, labs appreciated. On examination patient is on BiPAP. Patient states he feels out of breath when coming off the BiPAP. Otherwise has remained hemodynamically stable and afebrile. Is awake and alert able to have complete conversations. Blood pressures well controlled. Documen jared urine output in last 24 hours over 1 L. Vitals/I&O/Wt Last Vital Signs Temp 97.3 F L 06/29/22 12:00 Pulse 67 06/29/22 13:36 Resp 16 06/29/22 13:33 BP 121/64 06/29/22 12:00 Pulse Ox 100 06/29/22 13:33 O2 Del Method 06/29/22 13:33 O2 Flow Rate 2 06/29/22 07:38 FiO2 40 06/29/22 13:33 06/28/22 06/29/22 06/29/22 22:59 06:59 14:59 Intake Total 1290 / 2130 870 / 870 Output Total 600 / 600 300 / 900 350 / 350 Balance 690 / 1530 -300 / 1230 520 / 520 Weight last 48 hrs Weight 72.603 kg Weight 71.356 kg Physical Exam Const: COMMON NORMALS: patient oriented x3 HENMT: COMMON NORMALS: normocephalic and atraumatic HEAD & SCALP: normocephalic and atraumatic Resp: OTHER: Minimal bilateral expiratory wheezing, minimal bilateral basal crackles. Cardio: COMMON NORMALS: regular rate, regular rhythm, S1 normal heart sound present, S2 normal heart sound present, No gallops present (Cardio), No murmurs present (Cardio), No rub (Cardio) and Peripheral pulses 2+ throughout RATE: regular rate RHYTHM: regular rhythm HEART SOUNDS: S1 normal heart sound present and S2 normal heart sound present PERIPHERAL PULSES: Peripheral pulses 2+ throughout GI: COMMON NORMALS: Normal to inspection, nondistended, normoactive bowel sounds present, Soft to palpation, non-tender, No hepatosplenomegaly present and no masses AUSCULTATION: Yes normoactive bowel sounds PALPATION: Yes Soft to palpation and Yes No hepatosplenomegaly present RECTAL EXAM: deferred Extremity: NARRATIVE EXTREMITY EXAM: TRace B/L L/E Pitting edema. Neuro: COMMON NORMALS: patient oriented x3 Urinary Catheter Management: Munson: Cath Placed During This Visit: yes Reason for Continuing Indwelling Catheter: Other Urinary Catheter Date of Insertion: 06/25/22 Urinary Catheter Time of Insertion: 06:00 Data 06/29/22 03:54 06/29/22 03:54 Micro: Microbiology 06/24/22 11:03 Blood Culture - Final Blood NO GROWTH AFTER 5 DAYS 06/24/22 11:00 Blood Culture - Final Blood NO GROWTH AFTER 5 DAYS A&P Assessment and plan (1) Acute respiratory failure with hypoxia: (2) Acute exacerbation of CHF (congestive heart failure): (3) NSTEMI (non-ST elevated myocardial infarction): (4) Acute exacerbation of chronic obstructive airways disease: (5) Pneumonia: (6) CKD (chronic kidney disease) stage 3, GFR 30-59 ml/min: (7) HTN (hypertension): (8) Hyperthyroidism: (9) Diabetes mellitus: Plan 71 year old female with past medical history of coronary artery disease S/P two previous bypass surgeries where three vessels were bypassed easch time. Her surgeries were in 1994 and in 2004. She had LOVETT to the LAD, saphenous venous graft to the diagonal branch of the left anterior descending and saphenous vein graft to the right coronary artery. She has also had multiple stents. Her last cardiac cath was at [facility] with Dr. Fiore in 2019 where only patent bypass was LOVETT-LAD. SVG to RCA and SVG to LCx were occluded. Medical management was recommended. Hypertension diabetes, COPD not on home oxygen, hypothyroidism, heart failure with reduced ejection fraction, CKD stage III with baseline serum creatinine around 1.7-2, history of COVID-19 pneumonia, recent NSTEMI, was discharged yesterday after being managed for NSTEMI. On medical management, with close cardiology follow-up, as the patient was chest pain-free and denied any Worsening shortness of breath, prior to discharge, she was saturating well on room air, denied any significant pain with ambulation, came in today after acute onset of worsening shortness of breath. Started today this morning, left-sided chest pressure, she denied any, cough abdominal pain palpitation diaphoresis. Assessment: NSTEMI: Post cardiac angiogram. Patent stent to LAD and LCx. No intervention done. Continue with aspirin, Plavix, statin, beta-lexy. Continue with Imdur and hydralazine. Echocardiogram done showed an EF of 35 to 40% with grade 1 diastolic dysfunction, dilated LA and moderate MR. Appreciate cardiology recommendations. Acute hypoxic respiratory failure in setting of decompensated heart failure: Appreciate echocardiogram results. Strict input output charting. IV Lasix 40 mg daily. Restart today. Target 1 L negative in next 24 hours. Patient net 1500 cc positive since admission. Daily weights. Stop IV fluids. Pneumonia less likely. Stop IV antibiotics. We will continue to monitor. COPD exacerbation: Continue with DuoNebs every 6 hour, budesonide twice daily. Continue with Solu-Medrol 40 mg every 8 hourly. Will wean off within next 24 hours. Oxygen supplementation keeping saturation over 90%. BiPAP nightly and as needed. DOLORES on CKD: Most likely in setting of CRS along with RICARDO. Baseline creatinine 1-1.4. Stabilizing for now. Around 2.4. Given hypoxic respiratory failure most likely secondary to congestive heart failure. IV fluids and start on IV Lasix. Will continue to monitor BMP daily. Medical reconciliation done for nephrotoxic drugs. Renal ultrasound. Hyperkalemia: In setting of kidney dysfunction. D50/insulin 10 units. Monitor BMP every 12 hourly. Telemetry. Diabetes: Lantus 15 unit subcu daily SSI Diabetic diet Monitor fingerstick glucose Hypertensive emergency/hypertension: Goal blood pressure less than 140/90 mmHg. Continue with hydralazine 75 mg p.o. 3 times daily, Imdur 60 twice daily, nifedipine 90 mg daily. Analgesia: Tylenol as needed. Glycemic control: Insulin sliding scale moderate dose protocol, Lantus 15 units nightly Nutrition: Switch to carb consistent cardiac diet CODE STATUS: Full code PUD prophylaxis: Protonix DVT prophylaxis: Heparin 5000 every 12 hourly Discharge planning: Plan to discharge home with possible home health once medically stable. Transfer to U. This documentation was created by [employer] sales and service consultant software. Every effort was made to ensure accuracy of sales and service consultant. Any obvious errors or omissions should be clarified with the author of the document. Attestations Medical Necessity Statement*: Requires further hospitalization for management of acute hypoxic respiratory failure in setting of decompensated heart failure, non-ST elevation CO, post cardiac angiogram, DOLORES on CKD in setting of possible RICARDO Time Spent in Patient Care: Greater than 35 minutes Coding Level of Care Code Acute Code for [facility] Diagnoses Acute respiratory failure with hypoxia J96.01 Acute exacerbation of CHF (congestive heart failure) I50.9 NSTEMI (non-ST elevated myocardial infarction) I21.4 Acute exacerbation of chronic obstructive airways disease J44.1 Pneumonia J18.9 CKD (chronic kidney disease) stage 3, GFR 30-59 ml/min N18.30 HTN (hypertension) I10 Hyperthyroidism E05.90 Diabetes mellitus E11.9
--- NOTE | 2022-06-29 15:00 | US_ITS ---
WS: [id number] RENAL ULTRASOUND HISTORY: Acute kidney injury COMPARISON: None available. TECHNIQUE: 2-D and color Doppler imaging of the kidney submitted. Right kidney: 7.0 cm x 3.5 cm x 3.2 cm. Small size kidney. Moderate atrophy which is new since 2009. No hydronephrosis. Cortical thinning. Co rtex measures 7 mm. Small cortical cysts superior pole measures 1.1 cm. No solid mass. Left kidney: 9.8 cm x 4.4 cm x 5.0 cm. Normal echogenicity with no hydronephrosis or mass. Normal cortex at 1.0 cm. Hypoechoic mass exophyti c from the LEFT kidney measures 1.6 cm. This is not completely cystic by ultrasound. In part this is due to body habitus. On a prior CT from 2019. This did appear to be a cyst and is unchanged in size. Aorta: Mild dilatation abdominal aorta to 3.1 cm. Urinary Bladder: Nondistended urinary bladder. Patient has a Munson catheter. Small RIGHT pleural effusion. US/US renal BI* [id number] IMPRESSION: 1. Moderate atrophy RIGHT kidney is new since 2009. Kidney has decreased in si ze also since the CT of 08/25/2019. Maximum length at that time was 9.1 cm. 2. Bilateral renal cysts. Unchanged in size since 2020. 3. Small RIGHT pleural effusion.
--- NOTE | 2022-06-29 16:49 | PC.NURSE ---
received from med/surg via w/c at 1610,into room 105.report received.pt is alert and oriented x 4.denies pain at present.sr on monitor.o2 on at 4 l per nasal cannula..o2 sat 95%.oriented to room environment.instructed to notify staff for any chest pain/pressure,sob,or for any concerns or needs at all.pt verb understanding of instructions
[2022-06-29 16:54] LABS: Glucose Point of Care 110 mg/dL (70-110)
[2022-06-29 18:30] LABS: Anion Gap 14.6 (5-19); Calcium 9.4 mg/dL (8.5-10.5); Carbon Dioxide 22 mmol/L (22-29); Chloride 101 mmol/L (98-107); Glucose 95 mg/dL (65-115); Osmolality Calculated 301 mOsm/kg (285-295); Potassium 4.6 mmol/L (3.5-5.1); Sodium 133 mmol/L (136-145)
[2022-06-29 18:35] LABS: Blood Urea Nitrogen 82 mg/dL (8-23)
[2022-06-29] MEDS: FUROsemide 10 mg/mL SDV 4mL 40 MG IVP (18:57)
[2022-06-29 20:17] LABS: Glucose Point of Care 202 mg/dL (70-110)
[2022-06-29] MEDS: atorvastatin 40 mg Tablet PO (21:06)
[2022-06-29] MEDS: insulin glargine 100 units/1 mL 15 UNIT SUBCUT (21:12)
[2022-06-29] MEDS: ipratropium 0.5 mg/2.5 mL Neb INHALATION (21:40)
[2022-06-29] MEDS: albuterol 2.5 mg/3 mL Neb INHALATION (21:40)
[2022-06-29] MEDS: tizanidine 4 mg Tablet PO (22:14)
[2022-06-29] MEDS: acetaminophen 325 mg Tablet 650 MG PO (22:14)
[2022-06-30] VITALS (18 sets, daily range): BP systolic 114–166; BP diastolic 46–81; PULSE 49–75; RESP 14–19; TEMP 36.4–37.2; O2SAT 94–99
[2022-06-30] MEDS: heparin 5,000 unit/mL INJ 1 mL 5000 UNIT SUBCUT ×2 (01:00→12:42)
[2022-06-30] MEDS: albuterol 2.5 mg/3 mL Neb INHALATION ×4 (02:31→20:58)
[2022-06-30] MEDS: ipratropium 0.5 mg/2.5 mL Neb INHALATION ×4 (02:32→20:58)
[2022-06-30 04:28] LABS: Hematocrit 32.2 % (37.0-47.0); Hemoglobin 10.5 g/dL (11.5-15.3); Lymphocytes # 0.5 10^3/uL (0.8-4.8); Lymphocytes % 5.9 %; Mean Corpuscular HGB Conc 32.6 g/dL (30.0-36.0); Mean Corpuscular Hemoglobin 30.9 pg (28.0-34.0); Mean Corpuscular Volume 94.7 fl (81-99); Mean Platelet Volume 10.6 fL (7.4-10.4); Monocytes # 0.2 10^3/uL (0.2-0.9); Monocytes % 2.2 %; Neutrophils # 7.01 10^3/uL (1.8-7.7); Neutrophils % 91.4 %; Nucleated Red Blood Cells % 0 %; Platelet Count 235 10^3/cmm (130-400); Red Cell Distribution Width 14.2 % (12.1-15.1); White Blood Count 7.7 10^3/uL (4.0-10.0)
[2022-06-30 04:53] LABS: Alanine Aminotransferase 23 U/L (0-33); Albumin Level 2.9 g/dL (3.5-5.2); Alkaline Phosphatase 72 U/L (35-105); Anion Gap 15.8 (5-19); Aspartate Amino Transferase 24 U/L (0-32); Blood Urea Nitrogen 80 mg/dL (8-23); Calcium 8.3 mg/dL (8.5-10.5); Carbon Dioxide 20 mmol/L (22-29); Chloride 106 mmol/L (98-107); Globulin 2.3 g/dL (1.3-4.6); Glucose 135 mg/dL (65-115); Osmolality Calculated 310 mOsm/kg (285-295); Potassium 4.8 mmol/L (3.5-5.1); Sodium 137 mmol/L (136-145); Total Bilirubin 0.2 mg/dL (0.15-1.2); Total Protein 5.2 g/dL (6.6-8.7)
--- NOTE | 2022-06-30 06:18 | PM.PN ---
Subjective Subjective: Patient still has shortness of breath. urine output is good. Vitals/I&O/Wt Last Vital Signs Temp 97.6 F 06/30/22 04:00 Pulse 49 L 06/30/22 04:00 Resp 14 06/30/22 04:00 BP 114/49 06/30/22 04:00 Pulse Ox 96 06/30/22 04:35 O2 Del Method 06/30/22 04:00 O2 Flow Rate 3 06/30/22 04:00 FiO2 35 06/30/22 04:35 06/29/22 06/29/22 06/30/22 14:59 22:59 06:59 Intake Total 920 / 920 1338.225 / 2258.225 Output Total 350 / 350 775 / 1125 600 / 1725 Balance 570 / 570 563.225 / 1133.225 -600 / 533.225 Weight last 48 hrs Weight 160 lb 1 oz Physical Exam Narrative: GENERAL: Patient is alert, awake and oriented x3. [] NECK: No jugular vein distension. [] HEENT: No cyanosis. No icterus. No pallor. [] HEART: Regular S1 and S2. No murmur, rub or gallop. [] LUNGS: Diminished breath sounds bilaterally, has mild crackles CENTRAL NERVOUS SYSTEM: Grossly nonfocal. [] EXTREMITIES: Lower extremities with 1+ edema bilaterally. Urinary Catheter Management: Munson: Cath Placed During This Visit: yes Reason for Continuing Indwelling Catheter: Accurate Measurement of Urinary Output in Critically Ill Patients Urinary Catheter Date of Insertion: 06/25/22 Urinary Catheter Time of Insertion: 06:00 Data 06/30/22 03:58 06/30/22 03:58 Micro: Microbiology 06/24/22 11:03 Blood Culture - Final Blood NO GROWTH AFTER 5 DAYS 06/24/22 11:00 Blood Culture - Final Blood NO GROWTH AFTER 5 DAYS A&P Assessment and plan (1) Acute respiratory failure with hypoxia: (2) Diabetes mellitus: (3) Hyperthyroidism: (4) HTN (hypertension): (5) CKD (chronic kidney disease) stage 3, GFR 30-59 ml/min: (6) Acute exacerbation of CHF (congestive heart failure): Plan Gentle diuresis. Monitor renal function Continue aspirin Plavix Thank you for involving us with care of this patient. We will continue to follow. Please call with questions Attestations Medical Necessity Statement*: Care expected to cross 2 midnights. Coding Level of Care Code Acute Code for Chg Fwd Diagnoses Acute respiratory failure with hypoxia J96.01 Diabetes mellitus E11.9 Hyperthyroidism E05.90 HTN (hypertension) I10 CKD (chronic kidney disease) stage 3, GFR 30-59 ml/min N18.30 Acute exacerbation of CHF (congestive heart failure) I50.9
[2022-06-30 06:27] LABS: Glucose Point of Care 165 mg/dL (70-110)
[2022-06-30] MEDS: insulin lispro 100 unit/1 mL SUBCUT ×3 (07:31→17:24)
[2022-06-30] MEDS: FUROsemide 10 mg/mL SDV 4mL 40 MG IVP ×2 (08:21→12:43)
[2022-06-30] MEDS: hyDRALAzine 25 mg Tablet 75 MG PO ×3 (08:23→20:48)
[2022-06-30] MEDS: guaiFENesin 600 mg Tablet 1200 MG PO ×2 (08:25→17:24)
[2022-06-30] MEDS: aspirin 81 mg EC Tablet PO (08:25)
[2022-06-30] MEDS: clopidogrel 75 mg Tablet PO (08:25)
[2022-06-30] MEDS: metoprolol succinate ER (24 HR) 50 mg Tablet PO (08:26)
[2022-06-30] MEDS: NIFEdipine ER (24 hr) 30 mg Tablet 90 MG PO (08:26)
[2022-06-30] MEDS: pantoprazole DR 40 mg Tablet PO (08:27)
[2022-06-30] MEDS: isosorbide mononitrate ER 60 mg Tablet PO ×2 (08:27→17:24)
[2022-06-30] MEDS: venlafaxine ER (24HR) 150 mg Capsule PO (08:27)
[2022-06-30] MEDS: venlafaxine ER (24HR) 75 mg Capsule PO (08:27)
[2022-06-30] MEDS: methIMAzole 5 MG Tablet PO (08:28)
[2022-06-30 11:27] LABS: Glucose Point of Care 219 mg/dL (70-110)
--- NOTE | 2022-06-30 12:25 | PM.PN ---
Subjective Subjective: No overnight. Today morning examination patient sitting up in bed on room air. States feeling a lot better. Denies any nausea vomiting, headache. Was on BiPAP overnight. Patient has been off BiPAP for considerable amount of time now. Documented urine output in last 24 hours over 1700 cc. Vitals/I&O/Wt Last Vital Signs Temp 97.5 F L 06/30/22 07:43 Pulse 64 06/30/22 08:40 Resp 19 H 06/30/22 08:40 BP 124/46 06/30/22 07:43 Pulse Ox 98 06/30/22 08:40 O2 Del Method 06/30/22 08:40 O2 Flow Rate 3 06/30/22 04:00 FiO2 35 06/30/22 04:35 06/29/22 06/30/22 06/30/22 22:59 06:59 14:59 Intake Total 1338.225 / 2258.225 620 / 620 Output Total 775 / 1125 600 / 1725 Balance 563.225 / 1133.225 -600 / 533.225 620 / 620 Weight last 48 hrs Weight 69.003 kg Weight 72.603 kg Physical Exam Const: COMMON NORMALS: patient oriented x3 HENMT: COMMON NORMALS: normocephalic and atraumatic HEAD & SCALP: normocephalic and atraumatic Resp: OTHER: Minimal bilateral expiratory wheezing, minimal bilateral basal crackles. Cardio: COMMON NORMALS: regular rate, regular rhythm, S1 normal heart sound present, S2 normal heart sound present, No gallops present (Cardio), No murmurs present (Cardio), No rub (Cardio) and Peripheral pulses 2+ throughout RATE: regular rate RHYTHM: regular rhythm HEART SOUNDS: S1 normal heart sound present and S2 normal heart sound present PERIPHERAL PULSES: Peripheral pulses 2+ throughout GI: COMMON NORMALS: Normal to inspection, nondistended, normoactive bowel sounds present, Soft to palpation, non-tender, No hepatosplenomegaly present and no masses AUSCULTATION: Yes normoactive bowel sounds PALPATION: Yes Soft to palpation and Yes No hepatosplenomegaly present RECTAL EXAM: deferred Extremity: NARRATIVE EXTREMITY EXAM: TRace B/L L/E Pitting edema. Neuro: COMMON NORMALS: patient oriented x3 Urinary Catheter Management: Munson: Cath Placed During This Visit: yes Reason for Continuing Indwelling Catheter: Accurate Measurement of Urinary Output in Critically Ill Patients Urinary Catheter Date of Insertion: 06/25/22 Urinary Catheter Time of Insertion: 06:00 Data 06/30/22 03:58 06/30/22 03:58 Micro: Microbiology 06/24/22 11:03 Blood Culture - Final Blood NO GROWTH AFTER 5 DAYS 06/24/22 11:00 Blood Culture - Final Blood NO GROWTH AFTER 5 DAYS A&P Assessment and plan (1) Acute respiratory failure with hypoxia: (2) Acute exacerbation of CHF (congestive heart failure): (3) NSTEMI (non-ST elevated myocardial infarction): (4) Acute exacerbation of chronic obstructive airways disease: (5) Pneumonia: (6) CKD (chronic kidney disease) stage 3, GFR 30-59 ml/min: (7) HTN (hypertension): (8) Hyperthyroidism: (9) Diabetes mellitus: Plan 71 year old female with past medical history of coronary artery disease S/P two previous bypass surgeries where three vessels were bypassed easch time. Her surgeries were in 1994 and in 2004. She had LOVETT to the LAD, saphenous venous graft to the diagonal branch of the left anterior descending and saphenous vein graft to the right coronary artery. She has also had multiple stents. Her last cardiac cath was at [facility] with Dr. Fiore in 2019 where only patent bypass was LOVETT-LAD. SVG to RCA and SVG to LCx were occluded. Medical management was recommended. Hypertension diabetes, COPD not on home oxygen, hypothyroidism, heart failure with reduced ejection fraction, CKD stage III with baseline serum creatinine around 1.7-2, history of COVID-19 pneumonia, recent NSTEMI, was discharged yesterday after being managed for NSTEMI. On medical management, with close cardiology follow-up, as the patient was chest pain-free and denied any Worsening shortness of breath, prior to discharge, she was saturating well on room air, denied any significant pain with ambulation, came in today after acute onset of worsening shortness of breath. Started today this morning, left-sided chest pressure, she denied any, cough abdominal pain palpitation diaphoresis. Assessment: NSTEMI: Post cardiac angiogram. Patent stent to LAD and LCx. No intervention done. Continue with aspirin, Plavix, statin, beta-lexy. Continue with Imdur and hydralazine. Echocardiogram done showed an EF of 35 to 40% with grade 1 diastolic dysfunction, dilated LA and moderate MR. Appreciate cardiology recommendations. Acute hypoxic respiratory failure in setting of decompensated heart failure: Resolving today. Off BiPAP. Appreciate echocardiogram results. Strict input output charting. Continue with IV Lasix 40 mg daily. Target net 1 L negative. Fluid restriction up to 1500 cc. Daily weights. Stop IV fluids. Pneumonia less likely. IV antibiotics stopped on 06/29. We will continue to monitor. COPD exacerbation: Continue with DuoNebs every 6 hour, budesonide twice daily. Wean down Solu-Medrol to 40 mg IV daily. Will wean off within next 24 hours. Oxygen supplementation keeping saturation over 90%. BiPAP nightly and as needed. High likelihood patient has baseline obstructive sleep apnea which is undiagnosed. Will advise patient to get a sleep study as an outpatient through primary care provider. Patient is agreeable. DOLORES on CKD: Most likely in setting of CRS along with RICARDO. Baseline creatinine 1.4-2. Stabilizing for now. Around 2.2. BUN stabilizing. Given hypoxic respiratory failure most likely secondary to congestive heart failure. IV fluids and start on IV Lasix. Will continue to monitor BMP daily. Medical reconciliation done for nephrotoxic drugs. Renal ultrasound consistent with atrophied right kidney. Hyperkalemia: Resolved. Diabetes: Sugars better controlled. Lantus 15 unit subcu daily SSI Diabetic diet Monitor fingerstick glucose Hypertensive emergency/hypertension: Goal blood pressure less than 140/90 mmHg. Blood pressure is better controlled. Continue with hydralazine 75 mg p.o. 3 times daily, Imdur 60 twice daily, nifedipine 90 mg daily. Analgesia: Tylenol as needed. Glycemic control: Insulin sliding scale moderate dose protocol, Lantus 15 units nightly Nutrition: Switch to carb consistent cardiac diet CODE STATUS: Full code PUD prophylaxis: Protonix DVT prophylaxis: Heparin 5000 every 12 hourly Discharge planning: Plan to discharge home with possible home health once medically stable. Continue care at CSU level. This documentation was created by [employer] supervisor area software. Every effort was made to ensure accuracy of supervisor area. Any obvious errors or omissions should be clarified with the author of the document. Attestations Medical Necessity Statement*: Patient requires further hospitalization for management of hypoxic respiratory failure and CHF exacerbation, non-ST elevation PR post cardiac angiogram, DOLORES and CKD secondary to RICARDO. Time Spent in Patient Care: Greater than 35 minutes Coding Level of Care Code Acute Code for Chg Fwd Diagnoses Acute respiratory failure with hypoxia J96.01 Acute exacerbation of CHF (congestive heart failure) I50.9 NSTEMI (non-ST elevated myocardial infarction) I21.4 Acute exacerbation of chronic obstructive airways disease J44.1 Pneumonia J18.9 CKD (chronic kidney disease) stage 3, GFR 30-59 ml/min N18.30 HTN (hypertension) I10 Hyperthyroidism E05.90 Diabetes mellitus E11.9
[2022-06-30 17:01] LABS: Glucose Point of Care 161 mg/dL (70-110)
[2022-06-30] MEDS: atorvastatin 40 mg Tablet PO (20:48)
[2022-06-30 20:53] LABS: Glucose Point of Care 73 mg/dL (70-110)
[2022-06-30] MEDS: insulin glargine 100 units/1 mL 15 UNIT SUBCUT (20:54)
[2022-06-30] MEDS: tizanidine 4 mg Tablet PO (22:39)
[2022-06-30] MEDS: acetaminophen 325 mg Tablet 650 MG PO (22:39)
[2022-06-30 22:44] LABS: Glucose Point of Care 74 mg/dL (70-110)
[2022-07-01] VITALS (14 sets, daily range): BP systolic 130–161; BP diastolic 66–80; PULSE 55–98; RESP 16–18; TEMP 36.4–36.8; O2SAT 94–97
[2022-07-01] MEDS: heparin 5,000 unit/mL INJ 1 mL 5000 UNIT SUBCUT ×2 (01:07→12:43)
[2022-07-01] MEDS: albuterol 2.5 mg/3 mL Neb INHALATION ×4 (01:33→20:26)
[2022-07-01] MEDS: ipratropium 0.5 mg/2.5 mL Neb INHALATION ×4 (01:33→20:26)
[2022-07-01 04:13] LABS: Eosinophils # 0.1 10^3/uL (0.0-0.8); Eosinophils % 1.4 %; Hematocrit 31.8 % (37.0-47.0); Hemoglobin 10.2 g/dL (11.5-15.3); Lymphocytes # 2.3 10^3/uL (0.8-4.8); Lymphocytes % 23.9 %; Mean Corpuscular HGB Conc 32.1 g/dL (30.0-36.0); Mean Corpuscular Hemoglobin 29.7 pg (28.0-34.0); Mean Corpuscular Volume 92.7 fl (81-99); Mean Platelet Volume 10.9 fL (7.4-10.4); Monocytes # 0.7 10^3/uL (0.2-0.9); Monocytes % 6.9 %; Neutrophils # 6.52 10^3/uL (1.8-7.7); Neutrophils % 67.4 %; Nucleated Red Blood Cells % 0 %; Platelet Count 256 10^3/cmm (130-400); Red Blood Count 3.43 10^6/uL (4.1-5.3); White Blood Count 9.7 10^3/uL (4.0-10.0)
[2022-07-01 04:35] LABS: Alanine Aminotransferase 22 U/L (0-33); Albumin Level 2.7 g/dL (3.5-5.2); Alkaline Phosphatase 74 U/L (35-105); Anion Gap 17.1 (5-19); Aspartate Amino Transferase 25 U/L (0-32); Calcium 8.1 mg/dL (8.5-10.5); Carbon Dioxide 21 mmol/L (22-29); Chloride 101 mmol/L (98-107); Globulin 2.5 g/dL (1.3-4.6); Glucose 80 mg/dL (65-115); Osmolality Calculated 306 mOsm/kg (285-295); Potassium 4.1 mmol/L (3.5-5.1); Sodium 135 mmol/L (136-145); Total Bilirubin 0.2 mg/dL (0.15-1.2); Total Protein 5.2 g/dL (6.6-8.7)
[2022-07-01 05:26] LABS: Blood Urea Nitrogen 88 mg/dL (8-23)
[2022-07-01 06:25] LABS: Glucose Point of Care 71 mg/dL (70-110)
--- NOTE | 2022-07-01 07:39 | PC.NURSE ---
Bedside report was given to me by Rogers Rhodes RN at bedside, with patient awake and alert. Allergy band and ID band on. Plan for the day discussed. Possible discharge.
[2022-07-01] MEDS: methIMAzole 5 MG Tablet PO (08:27)
[2022-07-01] MEDS: pantoprazole DR 40 mg Tablet PO (08:28)
[2022-07-01] MEDS: metoprolol succinate ER (24 HR) 50 mg Tablet PO (08:29)
[2022-07-01] MEDS: hyDRALAzine 25 mg Tablet 75 MG PO ×3 (08:29→20:40)
[2022-07-01] MEDS: aspirin 81 mg EC Tablet PO (08:30)
[2022-07-01] MEDS: NIFEdipine ER (24 hr) 30 mg Tablet 90 MG PO (08:30)
[2022-07-01] MEDS: venlafaxine ER (24HR) 75 mg Capsule PO (08:30)
[2022-07-01] MEDS: isosorbide mononitrate ER 60 mg Tablet PO ×2 (08:30→18:05)
[2022-07-01] MEDS: guaiFENesin 600 mg Tablet 1200 MG PO ×2 (08:31→18:05)
[2022-07-01] MEDS: clopidogrel 75 mg Tablet PO (08:31)
[2022-07-01] MEDS: venlafaxine ER (24HR) 150 mg Capsule PO (08:31)
[2022-07-01] MEDS: FUROsemide 10 mg/mL SDV 4mL 40 MG IVP (08:32)
--- NOTE | 2022-07-01 10:17 | P.PN_ITS ---
Subjective Subjective: Patient is doing well. No complaints of chest pain Vitals/I&O/Wt Last Vital Signs Temp 98.0 F 07/01/22 04:00 Pulse 64 07/01/22 08:00 Resp 18 07/01/22 08:00 BP 151/69 07/01/22 07:31 Pulse Ox 95 07/01/22 08:00 O2 Del Method 07/01/22 08:00 O2 Flow Rate 0 06/30/22 20:59 FiO2 30 07/01/22 04:05 06/30/22 07/01/22 07/01/22 22:59 06:59 14:59 Intake Total 480 / 1580 237 / 1817 360 / 360 Output Total 1100 / 1999 775 / 2775 Balance -620 / -420 -538 / -958 360 / 360 Weight last 48 hrs Weight 152 lb 2 oz Physical Exam Narrative: GENERAL: Patient is alert, awake and oriented x3. [] NECK: No jugular vein distension. [] HEENT: No cyanosis. No icterus. No pallor. [] HEART: Regular S1 and S2. No murmur, rub or gallop. [] LUNGS: Diminished breath sounds bilaterally, has mild crackles CENTRAL NERVOUS SYSTEM: Grossly nonfocal. [] EXTREMITIES: Lower extremities with 1+ edema bilaterally. Urinary Catheter Management: Munson: Cath Placed During This Visit: yes Reason for Continuing Indwelling Catheter: Acute Urinary Retention or Obstruction Urinary Catheter Date of Insertion: 06/25/22 Urinary Catheter Time of Insertion: 06:00 Data 07/01/22 03:23 07/01/22 03:23 A&P Assessment and plan (1) Acute respiratory failure with hypoxia: (2) Diabetes mellitus: (3) Hyperthyroidism: (4) HTN (hypertension): (5) CKD (chronic kidney disease) stage 3, GFR 30-59 ml/min: (6) Acute exacerbation of CHF (congestive heart failure): Plan Continue current medications. Good urine output. Strict I and O2. Monitor renal function Thank you for involving us with care of this patient. We will continue to follow. Please call with questions Attestations Medical Necessity Statement*: Care expected to cross 2 midnights. Coding Level of Care Code Acute Code for [facility] Diagnoses Acute respiratory failure with hypoxia J96.01 Diabetes mellitus E11.9 Hyperthyroidism E05.90 HTN (hypertension) I10 CKD (chronic kidney disease) stage 3, GFR 30-59 ml/min N18.30 Acute exacerbation of CHF (congestive heart failure) I50.9
[2022-07-01] MEDS: FUROsemide 40 mg Tablet 60 MG PO (10:24)
--- NOTE | 2022-07-01 10:47 | PC.NURSE ---
Patient reyes removed at 0856 this morning without incident. Approx 85 ml emptied out of bag.
--- NOTE | 2022-07-01 11:30 | PC.SOCIAL ---
IMM Update pg 2 of IMM updated w/ patient. Copy provided and copy in chart dated and initialed.
[2022-07-01 12:40] LABS: Glucose Point of Care 159 mg/dL (70-110)
--- NOTE | 2022-07-01 14:44 | P.PN_ITS ---
Subjective Subjective: No acute events overnight. Patient denies any nausea, vomiting, headache. Seen sitting up in chair today. Denies any chest pain. Documented urine output appreciated. Asking to be possibly discharged tomorrow she lives out in an RV all by herself especially with snow[place]covered road it will be d ifficult for her to travel . Vitals/I&O/Wt Last Vital Signs Temp 98.0 F 07/01/22 04:00 Pulse 64 07/01/22 08:00 Resp 18 07/01/22 08:00 BP 151/69 07/01/22 07:31 Pulse Ox 95 07/01/22 08:00 O2 Del Method 07/01/22 08:00 O2 Flow Rate 0 06/30/22 20:59 FiO2 30 07/01/22 08:00 06/30/22 07/01/22 07/01/22 22:59 06:59 14:59 Intake Total 480 / 1580 237 / 1817 600 / 600 Output Total 1100 / 2000 775 / 2775 885 / 885 Balance -620 / -420 -538 / -958 -285 / -285 Weight last 48 hrs Weight 69.003 kg Physical Exam Const: COMMON NORMALS: patient oriented x3 HENMT: COMMON NORMALS: normocephalic and atraumatic HEAD & SCALP: normocephalic and atraumatic Resp: OTHER: Minimal bilateral expiratory wheezing, minimal bilateral basal crackles. Cardio: COMMON NORMALS: regular rate, regular rhythm, S1 normal heart sound present, S2 normal heart sound present, No gallops present (Cardio), No murmurs present (Cardio), No rub (Cardio) and Peripheral pulses 2+ throughout RATE: regular rate RHYTHM: regular rhythm HEART SOUNDS: S1 normal heart sound present and S2 normal heart sound present PERIPHERAL PULSES: Peripheral pulses 2+ throughout GI: COMMON NORMALS: Normal to inspection, nondistended, normoactive bowel sounds present, Soft to palpation, non-tender, No hepatosplenomegaly present and no masses AUSCULTATION: Yes normoactive bowel sounds PALPATION: Yes Soft to palpation and Yes No hepatosplenomegaly present RECTAL EXAM: deferred Extremity: NARRATIVE EXTREMITY EXAM: TRace B/L L/E Pitting edema. Neuro: COMMON NORMALS: patient oriented x3 Urinary Catheter Management: Munson: Cath Placed During This Visit: yes, but has since been removed by the nurse Reason for Continuing Indwelling Catheter: Decision to DC Catheter Urinary Catheter Date of Insertion: 06/25/22 Urinary Catheter Time of Insertion: 06:00 Date Urinary Catheter Removed: 07/01/22 Time Urinary Catheter Discontinued: 08:56 Data 07/01/22 03:23 07/01/22 03:23 A&P Assessment and plan (1) Acute respiratory failure with hypoxia: (2) Acute exacerbation of CHF (congestive heart failure): (3) NSTEMI (non-ST elevated myocardial infarction): (4) Acute exacerbation of chronic obstructive airways disease: (5) Pneumonia: (6) CKD (chronic kidney disease) stage 3, GFR 30-59 ml/min: (7) HTN (hypertension): (8) Hyperthyroidism: (9) Diabetes mellitus: Plan 71 year old female with past medical history of coronary artery disease S/P two previous bypass surgeries where three vessels were bypassed easch time. Her surgeries were in 1994 and in 2004. She had LOVETT to the LAD, saphenous venous graft to the diagonal branch of the left anterior descending and saphenous vein graft to the right coronary artery. She has also had multiple stents. Her last cardiac cath was at [facility] with Dr. Fiore in 2019 where only patent bypass was LOVETT-LAD. SVG to RCA and SVG to LCx were occluded. Medical management was recommended. Hypertension diabetes, COPD not on home oxygen, hypothyroidism, heart failure with reduced ejection fraction, CKD stage III with baseline serum creatinine around 1.7-2, history of COVID-19 pneumonia, recent NSTEMI, was discharged yesterday after being managed for NSTEMI. On medical management, with close cardiology follow-up, as the patient was chest pain-free and denied any Worsening shortness of breath, prior to discharge, she was saturating well on room air, denied any significant pain with ambulation, came in today after acute onset of worsening shortness of breath. Started today this morning, left-sided chest pressure, she denied any, cough abdominal pain palpitation diaphoresis. Assessment: NSTEMI: Post cardiac angiogram. Patent stent to LAD and LCx. No intervention done. Continue with aspirin, Plavix, statin, beta-lexy. Continue with Imdur and hydralazine. Echocardiogram done showed an EF of 35 to 40% with grade 1 diastolic dysfunction, dilated LA and moderate MR. Appreciate cardiology recommendations. Acute hypoxic respiratory failure in setting of decompensated heart failure: Resolving today. Off BiPAP. Appreciate echocardiogram results. Strict input output charting. Continue with IV Lasix 40 mg daily. Target net 1 L negative. Fluid restriction up to 1500 cc. Daily weights. Stop IV fluids. Pneumonia less likely. IV antibiotics stopped on 06/29. We will continue to monitor. COPD exacerbation: Continue with DuoNebs every 6 hour, budesonide twice daily. Wean down Solu-Medrol to 40 mg IV daily. Will wean off within next 24 hours. Oxygen supplementation keeping saturation over 90%. BiPAP nightly and as needed. High likelihood patient has baseline obstructive sleep apnea which is undiagnosed. Will advise patient to get a sleep study as an outpatient through primary care provider. Patient is agreeable. DOLORES on CKD: Most likely in setting of CRS along with RICARDO. Baseline creatinine 1.4-2. Stabilizing for now. Around 2.2. BUN stabilizing. Given hypoxic respiratory failure most likely secondary to congestive heart failure. IV fluids and start on IV Lasix. Will continue to monitor BMP daily. Medical reconciliation done for nephrotoxic drugs. Renal ultrasound consistent with atrophied right kidney. Hyperkalemia: Resolved. Diabetes: Sugars better controlled. Lantus 15 unit subcu daily SSI Diabetic diet Monitor fingerstick glucose Hypertensive emergency/hypertension: Goal blood pressure less than 140/90 mmHg. Blood pressure is better controlled. Continue with hydralazine 75 mg p.o. 3 times daily, Imdur 60 twice daily, nifedipine 90 mg daily. Plan for the day: YANELI Munson. Switch from IV Lasix 40 mg daily to oral 60 mg daily. Monitor BMP in AM. Out of bed to chair. Analgesia: Tylenol as needed. Glycemic control: Insulin sliding scale moderate dose protocol, Lantus 15 units nightly Nutrition: Switch to carb consistent cardiac diet CODE STATUS: Full code PUD prophylaxis: Protonix DVT prophylaxis: Heparin 5000 every 12 hourly Discharge planning: Plan to discharge home with possible home health once medically stable. Continue care at CSU level. This documentation was created by [employer] inclinometer tester software. Every effort was made to ensure accuracy of inclinometer tester. Any obvious errors or omissions should be clarified with the author of the document. Attestations Medical Necessity Statement*: Requires further hospitalization for management congestive heart failure, DOLORES on CKD in setting of recent cardiac angiogram with the possibility of RICARDO Time Spent in Patient Care: Greater than 35 minutes Coding Level of Care Code Acute Code for Chg Fwd Diagnoses Acute respiratory failure with hypoxia J96.01 Acute exacerbation of CHF (congestive heart failure) I50.9 NSTEMI (non-ST elevated myocardial infarction) I21.4 Acute exacerbation of chronic obstructive airways disease J44.1 Pneumonia J18.9 CKD (chronic kidney disease) stage 3, GFR 30-59 ml/min N18.30 HTN (hypertension) I10 Hyperthyroidism E05.90 Diabetes mellitus E11.9
[2022-07-01] MEDS: insulin lispro 100 unit/1 mL SUBCUT ×2 (18:05→20:47)
[2022-07-01] MEDS: atorvastatin 40 mg Tablet PO (20:40)
[2022-07-01] MEDS: insulin glargine 100 units/1 mL 15 UNIT SUBCUT (20:41)
[2022-07-01 20:45] LABS: Glucose Point of Care 185 mg/dL (70-110)
[2022-07-01] MEDS: tizanidine 4 mg Tablet PO (23:30)
[2022-07-01] MEDS: acetaminophen 325 mg Tablet 650 MG PO (23:30)
[2022-07-02] VITALS (7 sets, daily range): BP systolic 121–170; BP diastolic 50–69; PULSE 60–72; RESP 13–23; TEMP 36.6–36.9; O2SAT 96–98
[2022-07-02 00:03] LABS: Glucose Point of Care 103 mg/dL (70-110)
[2022-07-02 00:03] LABS: Glucose Point of Care 64 mg/dL (70-110)
[2022-07-02 00:03] LABS: Glucose Point of Care 57 mg/dL (70-110)
[2022-07-02] MEDS: ipratropium 0.5 mg/2.5 mL Neb INHALATION ×2 (01:54→08:59)
[2022-07-02] MEDS: albuterol 2.5 mg/3 mL Neb INHALATION ×2 (01:54→08:59)
[2022-07-02 02:36] LABS: Glucose Point of Care 128 mg/dL (70-110)
[2022-07-02 06:04] LABS: Glucose Point of Care 142 mg/dL (70-110)
[2022-07-02] MEDS: metoprolol succinate ER (24 HR) 50 mg Tablet PO (09:29)
[2022-07-02] MEDS: guaiFENesin 600 mg Tablet 1200 MG PO (09:29)
[2022-07-02] MEDS: isosorbide mononitrate ER 60 mg Tablet PO (09:29)
[2022-07-02] MEDS: venlafaxine ER (24HR) 150 mg Capsule PO (09:29)
[2022-07-02] MEDS: venlafaxine ER (24HR) 75 mg Capsule PO (09:29)
[2022-07-02] MEDS: hyDRALAzine 25 mg Tablet 75 MG PO (09:29)
[2022-07-02] MEDS: pantoprazole DR 40 mg Tablet PO (09:30)
[2022-07-02] MEDS: methIMAzole 5 MG Tablet PO (09:30)
[2022-07-02] MEDS: aspirin 81 mg EC Tablet PO (09:30)
[2022-07-02] MEDS: NIFEdipine ER (24 hr) 30 mg Tablet 90 MG PO (09:30)
[2022-07-02] MEDS: FUROsemide 40 mg Tablet 60 MG PO (09:30)
[2022-07-02] MEDS: clopidogrel 75 mg Tablet PO (09:31)
--- NOTE | 2022-07-02 09:38 | PM.PN ---
Subjective Subjective: Patient is stable. No chest pain. Vitals/I&O/Wt Last Vital Signs Temp 97.9 F 07/02/22 07:25 Pulse 67 07/02/22 08:59 Resp 20 H 07/02/22 08:59 BP 166/67 07/02/22 07:25 Pulse Ox 97 07/02/22 08:59 O2 Del Method 07/02/22 08:59 O2 Flow Rate 0 06/30/22 20:59 FiO2 30 07/01/22 08:00 07/01/22 07/02/22 07/02/22 22:59 06:59 14:59 Intake Total 250 / 850 720 / 720 Output Total 1000 / 1885 350 / 2235 900 / 900 Balance -750 / -1035 -350 / -1385 -180 / -180 Weight last 48 hrs Weight 143 lb 4.8 oz Weight 144 lb 7 oz Physical Exam Narrative: GENERAL: Patient is alert, awake and oriented x3. [] NECK: No jugular vein distension. [] HEENT: No cyanosis. No icterus. No pallor. [] HEART: Regular S1 and S2. No murmur, rub or gallop. [] LUNGS: Diminished breath sounds bilaterally, has mild crackles CENTRAL NERVOUS SYSTEM: Grossly nonfocal. [] EXTREMITIES: Lower extremities with 1+ edema bilaterally. Urinary Catheter Management: Munson: Cath Placed During This Visit: yes, but has since been removed by the nurse Reason for Continuing Indwelling Catheter: Decision to DC Catheter Urinary Catheter Date of Insertion: 06/25/22 Urinary Catheter Time of Insertion: 06:00 Date Urinary Catheter Removed: 07/01/22 Time Urinary Catheter Discontinued: 08:56 Data 07/01/22 03:23 07/01/22 03:23 A&P Assessment and plan (1) Acute respiratory failure with hypoxia: (2) Diabetes mellitus: (3) Hyperthyroidism: (4) HTN (hypertension): (5) CKD (chronic kidney disease) stage 3, GFR 30-59 ml/min: (6) Acute exacerbation of CHF (congestive heart failure): Plan Patient is stable. Not having symptoms today. Her urine output is good. She is stable to be discharged from cardiology standpoint. Please call with questions Attestations Medical Necessity Statement*: Care expected to cross 2 midnights. Coding Level of Care Code Acute Code for g Fwd Diagnoses Acute respiratory failure with hypoxia J96.01 Diabetes mellitus E11.9 Hyperthyroidism E05.90 HTN (hypertension) I10 CKD (chronic kidney disease) stage 3, GFR 30-59 ml/min N18.30 Acute exacerbation of CHF (congestive heart failure) I50.9
[2022-07-02 10:44] LABS: Calcium 8.4 mg/dL (8.5-10.5); Carbon Dioxide 22 mmol/L (22-29); Chloride 98 mmol/L (98-107); Glucose 298 mg/dL (65-115); Osmolality Calculated 315 mOsm/kg (285-295); Sodium 135 mmol/L (136-145)
[2022-07-02 10:55] LABS: Anion Gap 19.2 (5-19); Blood Urea Nitrogen 81 mg/dL (8-23); Potassium 4.2 mmol/L (3.5-5.1)
--- NOTE | 2022-07-02 10:56 | PC.NURSE ---
Received a call from lab with a critical BUN of 81. Called Dr. Butler, awaiting response.
--- NOTE | 2022-07-02 11:10 | PC.NURSE ---
Dr. Frankel gave no new ordered regarding BUN.
--- NOTE | 2022-07-02 11:12 | P.DS_ITS ---
Discharge Providers Date of Admission: 06/24/22 17:10 Date of Discharge: July 02, 2022 Attending Provider at Admission: Geoff Dinero MD Attending Provider at Discharge: Moe Butler MD Consults: Cardiology: Dr. Goldstein Primary Care Provider: Jocelyne Kirby Diagnoses at Discharge Discharge Diagnosis (1) Acute respiratory failure with hypoxia: Status: Acute (2) Diabetes mellitus: Status: Acute (3) Hyperthyroidism: Status: Acute (4) HTN (hypertension): Status: Acute (5) CKD (chronic kidney disease) stage 3, GFR 30-59 ml/min: Status: Acute (6) Acute exacerbation of CHF (congestive heart failure): Status: Acute Reason for Visit Reason for Visit: RESP. DISTRESS Hospital Course Hospital Course Romi Yuan is a 71 year old female with past medical history of CAD s/p 2 CABG surgeries last one was in 2004, CKD, peripheral and renal stents, dyslipidemia, hypertensive urgency, hypothyroidism, recent COVID-19 who presented to the hospital on June 24 for shortness of breath.? Last cardiac catheterization in 2018 showed patent LOVETT to LAD.? SVG to RCA and SVG to diagonal artery were occluded.? This is her fourth admission within the last 1 month with recurrent pulmonary edema.? She recently had COVID infection and had an NSTEMI as well.? She has presented this time to the hospital with worsening shortness of breath and chest pressure.? Still having on and off chest disc omfort episodes.? Troponins are downtrending now.NT Pro BNP is elevated. Patient going to the hospital further evaluation and management. She was started on IV diuresis. Given multiple admissions for similar complaints cardiology was consulted she underwent cardiac angiogram June 25 which was basically unchanged from before. Post cardiac angiogram given her history of CKD there was concern for DOLORES secondary to RICARDO hence diuretics were withheld for few days and she had worsening of congestive heart failure. Eventually diuresis were restarted after which her renal function stabilized with creatinine around 2.1 and BUN of 81. Her hospitalization was otherwise unremarkable and she continued to self saturate well on room air. She has been discharged in medically stable condition back home on oral diuretics with advised to follow-up with cardiology within next 1 week. There is a high chance that she has undiagnosed sleep apnea for which she is to follow with a primary care provider for a sleep study as an outpatient. Physical Exam Const: COMMON NORMALS: patient oriented x3 HENMT: COMMON NORMALS: normocephalic and atraumatic HEAD & SCALP: normocephalic and atraumatic Resp: OTHER: Minimal bilateral expiratory wheezing, minimal bilateral basal crackles. Cardio: COMMON NORMALS: regular rate, regular rhythm, S1 normal heart sound present, S2 normal heart sound present, No gallops present (Cardio), No murmurs present (Cardio), No rub (Cardio) and Peripheral pulses 2+ throughout RATE: regular rate RHYTHM: regular rhythm HEART SOUNDS: S1 normal heart sound present and S2 normal heart sound present PERIPHERAL PULSES: Peripheral pulses 2+ throughout GI: COMMON NORMALS: Normal to inspection, nondistended, normoactive bowel sounds present, Soft to palpation, non-tender, No hepatosplenomegaly present and no masses AUSCULTATION: Yes normoactive bowel sounds PALPATION: Yes Soft to palpation and Yes No hepatosplenomegaly present RECTAL EXAM: deferred Extremity: NARRATIVE EXTREMITY EXAM: TRace B/L L/E Pitting edema. 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 Cardiac enlargement with pulmonary vascular congestion suggesting some degree of mild CHF. 2. Airspace infiltrate in the right lung base suspicious for superimposed pneumonia. Renal Ultrasound 06/29/22 15:00 IMPRESSION: 1. Moderate atrophy RIGHT kidney is new since 2009. Kidney has decreased in size also since the CT of 08/25/2019. Maximum length at that time was 9.1 cm. 2. Bilateral renal cysts. Unchanged in size since 2019. 3. Small RIGHT pleural effusion. Laboratory Results WBC 9.7 10^3/uL (4.0-10.0) 07/01/22 03: RBC 3.43 10^6/uL (4.1-5.3) L 07/01/22 03: Hgb 10.2 g/dL (11.5-15.3) L 07/01/22 03: Hct 31.8 % (37.0-47.0) L 07/01/22 03: MCV 92.7 fl (81-99) 07/01/22 03: MCH 29.7 pg (28.0-34.0) 07/01/22 03: MCHC 32.1 g/dL (30.0-36.0) 07/01/22 03: RDW 14.0 % (12.1-15.1) 07/01/22 03: Plt Count 256 10^3/cmm (130-400) 07/01/22 03: MPV 10.9 fL (7.4-10.4) H 07/01/22 03: Neut % (Auto) 67.4 % 07/01/22 03: Lymph % (Auto) 23.9 % 07/01/22 03: [place] % (Auto) 6.9 % 07/01/22 03: Eos % (Auto) 1.4 % 07/01/22 03:23 Baso % (Auto) 0.0 % 07/01/22 03: Neut # (Auto) 6.52 10^3/uL (1.8-7.7) 07/01/22 03: Lymph # (Auto) 2.3 10^3/uL (0.8-4.8) 07/01/22 03: [place] # (Auto) 0.7 10^3/uL (0.2-0.9) 07/01/22 03:23 Eos # (Auto) 0.1 10^3/uL (0.0-0.8) 07/01/22 03:23 Baso # (Auto) 0.0 10^3/uL (0.0-0.1) 07/01/22 03:23 Nucleated RBC % (auto) 0 % 07/01/22 03:23 Nucleated RBCs # 0.0 /100WBC 07/01/22 03:23 PT 14.50 SECONDS (12.1-14.9) 06/25/22 02:30 INR 1.09 (0.8-1.2) 06/25/22 02:30 Specimen Type Arterial 06/25/22 06:18 Sample Site Radial, right 06/25/22 06:18 ABG pH 7.41 (7.35-7.45) 06/25/22 06:18 ABG pCO2 37.2 mmHg (35-45) 06/25/22 06:18 ABG pO2 183.0 mmHg (80.0-100.0) H 06/25/22 06:18 ABG HCO3 23.3 mmol/L (22-26) 06/25/22 06:18 ABG Base Excess -1.1 mmol/L (-2.0-2.0) 06/25/22 06:18 Rene Test Pos 06/25/22 06:18 Hematocrit 36.7 % (37-47) L 06/25/22 06:18 O2 Delivery Device Bipap 06/25/22 06:18 FiO2 60.0 % 06/25/22 06:18 Clinical Programmer ID Tera 06/25/22 06:18 Sodium 135 mmol/L (136-145) L 07/02/22 10:19 Potassium 4.2 mmol/L (3.5-5.1) 07/02/22 10:19 Chloride 98 mmol/L (98-107) 07/02/22 10:19 Carbon Dioxide 22 mmol/L (22-29) 07/02/22 10:19 Anion Gap 19.2 (5-19) H 07/02/22 10:19 BUN 81 mg/dL (8-23) H 07/02/22 10:19 Creatinine 2.1 mg/dL (0.5-0.9) H 07/02/22 10:19 GFR Calculation Not Reportable 07/02/22 10:19 Glucose 298 mg/dL (65-115) H 07/02/22 10:19 POC Glucose 142 mg/dL (70-110) H 07/02/22 05:53 Calculated Osmolality 315 mOsm/kg (285-295) H 07/02/22 10:19 Calcium 8.4 mg/dL (8.5-10.5) L 07/02/22 10:19 Magnesium 1.9 mg/dL (1.7-2.3) 06/25/22 02:30 Total Bilirubin 0.2 mg/dL (0.15-1.2) 07/01/22 03:23 AST 25 U/L (0-32) 07/01/22 03:23 ALT 22 U/L (0-33) 07/01/22 03:23 Alkaline Phosphatase 74 U/L (35-105) 07/01/22 03:23 Troponin T Baseline 84 ng/L (0-10) H 06/25/22 02:30 Troponin T 120 Minute 70.47 ng/L (0-10) H 06/25/22 05:16 Delta Troponin T -13.53 ABS# (0-10) L 06/25/22 05:16 Troponin T Hi Sens 6Hr 107.4 ng/L (0-10) H 06/25/22 08:32 Troponin T Hi Sens 6Hr Delta 23.4 ng/L (0-12) H* 06/25/22 08:32 C-Reactive Protein 4.4 mg/L (0.0-4.9) 06/24/22 07:52 NT-Pro-B Natriuret Pep 80193 pg/mL (0-125) H 06/29/22 03:54 Total Protein 5.2 g/dL (6.6-8.7) L 07/01/22 03:23 Albumin 2.7 g/dL (3.5-5.2) L 07/01/22 03:23 Globulin 2.5 g/dL (1.3-4.6) 07/01/22 03:23 Procalcitonin 0.19 ng/mL (0-0.5) 06/24/22 07:52 TSH 1.16 uIU/mL (0.27-4.20) 06/25/22 02:30 Free T4 1.03 ng/dL (0.82-1.77) 06/25/22 02:30 Thyroxine (T4) 6.9 mcg/dL (5.1-11.9) 06/25/22 02:30 Free T3 1.6 PG/ML (2.0-4.4) L 06/25/22 02:30 Total T3 61 ng/dL (76-181) L 06/25/22 02:30 Urine Color Yellow (Yellow) 06/24/22 09:37 Urine Appearance Clear (CLEAR) 06/24/22 09:37 Urine pH 6 (5-7) 06/24/22 09:37 Ur Specific [place] 1.015 (1.005-1.030) 06/24/22 09:37 Urine Protein 3+ (Negative) H 06/24/22 09:37 Urine Glucose (UA) 2+ (Normal) H 06/24/22 09:37 Urine Ketones Negative (Negative) 06/24/22 09:37 Urine Blood Neg (Negative) 06/24/22 09:37 Urine Nitrate Negative (Negative) 06/24/22 09:37 Urine Bilirubin Neg (Negative) 06/24/22 09:37 Urine Urobilinogen Neg mg/dL (Negative) 06/24/22 09:37 Ur Leukocyte Esterase Negative (Negative) 06/24/22 09:37 Urine RBC Rare /hpf (0-2) 06/24/22 09:37 Urine WBC Rare /hpf (0-5) 06/24/22 09:37 Ur Squamous Epith Cells Rare /hpf (0-5) 06/24/22 09:37 Amorphous Sediment Not Reportable 06/24/22 09:37 Urine Bacteria None /hpf (NONE) 06/24/22 09:37 Urine Mucus Trace /hpf 06/24/22 09:37 Influenza Type A Ag negative (Negative) 06/24/22 07:52 Influenza Type B Ag negative (Negative) 06/24/22 07:52 SARS-CoV-2 Ag (Rapid) negative (Negative) 06/24/22 07:52 Vitals Last Vital Signs Temp 97.9 F 07/02/22 07:25 Pulse 67 07/02/22 08:59 Resp 20 H 07/02/22 08:59 BP 166/67 07/02/22 07:25 Pulse Ox 97 07/02/22 08:59 O2 Del Method 07/02/22 08:59 O2 Flow Rate 0 06/30/22 20:59 FiO2 30 07/02/22 08:00 Discharge Plan Discharge Patient Disposition: Home Health Service Condition: Stable Prescriptions: New nifedipine 30 mg Tablet Extended Release 24hr 90 mg PO DAILY 30 Days Qty: 90 0RF pantoprazole 40 mg Tablet,Delayed Release (Dr/Ec) 40 mg PO DAILY 14 Days Qty: 14 0RF hydralazine 25 mg Tablet 75 mg PO TID 30 Days Qty: 270 0RF furosemide 40 mg Tablet 60 mg PO DAILY@0800 30 Days Qty: 45 0RF Continued Anoro Ellipta 62.5-25 mcg/actuation blister with device 1 inh INHALATION DAILY isosorbide mononitrate 60 mg tablet extended release 24 hr 60 mg PO BID venlafaxine [Effexor XR] 150 mg capsule,extended release 24hr 150 mg PO DAILY Rx Instructions: TAKE WITH 75 MG tizanidine [Zanaflex] 4 mg capsule 4 mg PO DAILY PRN (Reason: MUSCLE SPASMS) insulin aspart U-100 [Novolog U-100 Insulin aspart] 100 unit/mL solution 6 unit SUBCUT QID Rx Instructions: PT STATES SHE TAKES 6 UNITS UP TO 4 TIMES PER DAY. cholecalciferol (vitamin D3) 125 mcg (5,000 unit) capsule 125 mcg PO Q7D methimazole 5 mg tablet 5 mg PO DAILY Qty: 30 3RF (DME) Accu-Chek Ana M Plus test strp Strip See Rx Instructions .ROUTE .MEDSUPPLY Qty: 120 3RF Rx Instructions: check blood glucose four times a day nitroglycerin 0.4 mg tablet, sublingual 0.4 mg sublingual PRN PRN (Reason: CHEST PAINS) clopidogrel [Plavix] 75 mg tablet 75 mg PO DAILY Qty: 60 0RF aspirin [Adult Aspirin Regimen] 81 mg tablet,delayed release (DR/EC) 81 mg PO DAILY Qty: 60 2RF atorvastatin 40 mg tablet 40 mg PO BEDTIME venlafaxine 75 mg capsule,extended release 24hr 75 mg PO DAILY Rx Instructions: TAKE WITH 150 MG nystatin 100,000 unit/mL Suspension 100,000 unit PO DAILY Rx Instructions: administer 1/2 of dose in each side of the mouth acitretin 10 mg capsule 10 mg PO DAILY metoprolol succinate 25 mg tablet extended release 24 hr 25 mg PO DAILY potassium chloride 10 mEq tablet extended release 20 meq PO DAILY Rx Instructions: Potassium only with Lasix Colace 100 mg capsule 100 mg PO BID PRN (Reason: Constipation) Discontinued amlodipine 10 mg tablet 10 mg PO DAILY Qty: 90 3RF furosemide [Lasix] 20 mg tablet 20 mg PO DAILY PRN (Reason: swelling) Qty: 60 0RF hydralazine 25 mg tablet 25 mg PO BID Discharge Orders: Discharge Order (Routine); Ordered 07/02/22 Ordered By: Moe Butler Referrals: [facility] [Other] Jocelyne Kirby PA [Primary Care Provider] - 7-10 days Tristin Goldstein M.D [Physician] - 1 month Katherin Win FNP [Nurse Practitioner] - 7-10 days Discharge Diet: Cardiac and Diabetic Discharge Activity: Resume usual activity and Increase activity as tolerated Patient Instructions: Opioid Safety Activity Restrictions/Additional Instructions: Multiple antihypertensives has been changed. Dose of hydralazine has been changed to 75 3 times daily, nifedipine has been added at 90 mg daily, Lasix has been added at 60 mg daily. Do not take amlodipine anymore. Please follow-up with a primary care provider within next 1 week for repeat BMP. Please follow-up with Katherin Win/nurse practitioner from [facility] in [address] Goldstein next 1 month. You should have a sleep study done through your primary care provider for a high chance of undiagnosed sleep apnea. Discharge Attestations Time Spent in Discharge Care*: greater than 30 min Specific Discharge Activities: educating patient, discussing with pcp/other providers, discussing with human services case manager/social workers/dc planners, docu menting/other paperwork and evaluating patient/reviewing data Status at Discharge: Cognitive status at discharge: cognitively intact , Behavioral status at discharge: cooperative , Functional status at discharge: independent ambulation , Overall status at discharge: patient is back to baseline Quality Metrics Clinical Quality Measures [ No reported AMI, CVA or VTE this stay] Coding Level of Care Code Acute Chg FW DC note Diagnoses Acute respiratory failure with hypoxia J96.01 Diabetes mellitus E11.9 Hyperthyroidism E05.90 HTN (hypertension) I10 CKD (chronic kidney disease) stage 3, GFR 30-59 ml/min N18.30 Acute exacerbation of CHF (congestive heart failure) I50.9
[2022-07-02 11:27] LABS: Glucose Point of Care 265 mg/dL (70-110)
[2022-07-02] MEDS: insulin lispro 100 unit/1 mL SUBCUT (12:03)
== END 2022-07-02 14:18 | disposition home health service (06) | DRG 286 ==
LOC: ER 11:17 → ICU 06-25 00:47 → MEDSURG 06-26 05:17 → CSU 06-29 16:24
PROVIDERS: Family Medicine; Internal Medicine; Admitting Provider Internal Medicine; Emergency Provider Emergency Medicine; PCP Physician Assistant; Visit Provider Student in an Organized Health Care Education/Training Program
PROC: 4A023N7 Measurement of Cardiac Sampling and Pressure, Left Heart, Percutaneous Approach (ICD-10-PCS; principal; 2022-06-25 10:00)
DX: I13.0 Hypertensive heart and chronic kidney disease with heart failure and stage 1 through stage 4 chronic kidney disease, or unspecified chronic kidney disease (principal); I50.23 Acute on chronic systolic (congestive) heart failure; J96.01 Acute respiratory failure with hypoxia; I25.810 Atherosclerosis of coronary artery bypass graft(s) without angina pectoris; J44.1 Chronic obstructive pulmonary disease with (acute) exacerbation; N17.9 Acute kidney failure, unspecified; N18.30 Chronic kidney disease, stage 3 unspecified; E11.22 Type 2 diabetes mellitus with diabetic chronic kidney disease; I25.2 Old myocardial infarction; I25.82 Chronic total occlusion of coronary artery; I25.10 Atherosclerotic heart disease of native coronary artery without angina pectoris; Z95.1 Presence of aortocoronary bypass graft; Z95.5 Presence of coronary angioplasty implant and graft; Z86.16 Personal history of COVID-19; F41.9 Anxiety disorder, unspecified; E11.51 Type 2 diabetes mellitus with diabetic peripheral angiopathy without gangrene; E78.5 Hyperlipidemia, unspecified; G47.33 Obstructive sleep apnea (adult) (pediatric); E87.5 Hyperkalemia; N14.11 Contrast-induced nephropathy; T50.8X5A Adverse effect of diagnostic agents, initial encounter; E05.00 Thyrotoxicosis with diffuse goiter without thyrotoxic crisis or storm; Z88.0 Allergy status to penicillin; I16.0 Hypertensive urgency; I08.1 Rheumatic disorders of both mitral and tricuspid valves; Z87.891 Personal history of nicotine dependence; Z87.01 Personal history of pneumonia (recurrent); Z85.828 Personal history of other malignant neoplasm of skin; Z86.73 Personal history of transient ischemic attack (TIA), and cerebral infarction without residual deficits
CPT/HCPCS: 36415; 36416; 51702; 71045; 76770; 80048; 80053; 81001; 82803; 82962; 83735; 83880; 84145; 84436; 84439; 84443; 84480; 84481; 84484; 85025; 85610; 86140; 86403; 87040; 87070; 87205; 87426; 87449; 87804; 93005; 93459; 94640; 94660; 96365; 96372; 96375; 99152; 99153; 99285; C1769; C1887; C1894; J0360; J1644; J1815; J1940; J1956; J2185; J2250; J2920; J3010; J3490; J7030; J7613; J7644; Q9967

== ENCOUNTER 2022-07-08 19:47 | Inpatient (IN) | payer MEDICARE, MEDICAID, SELFPAY ==
[2022-07-08] VITALS (35 sets, daily range): BP systolic 153–178; BP diastolic 57–106; PULSE 85–103; RESP 13–34; TEMP 36.9; O2SAT 97–100; BMI 29.0; BMI 28.9
--- NOTE | 2022-07-08 19:51 | ECG_ITS ---
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 Measurements Intervals [place] Rate: 84 P: 66 [place]: 164 QRS: -20 QRSD: 111 T: 88 QT: 346 QTc: 411 Interpretive Statements SINUS RHYTHM MODERATE INTRAVENTRICULAR CONDUCTION DELAY [110+ ms QRS DURATION] ST DEVIATION AND MODERATE T-WAVE ABNORMALITY, CONSIDER LATERAL ISCHEMIA [-0.1+ mV T-WAVE IN I/aVL/V5/V6] Compared to ECG 06/25/2022 05:57:35 Intraventricular conduction delay now present T-wave abnormality now present Possible ischemia now present Left ventricular hypertrophy no longer present ST (T wave) deviation no longer present Electronically Signed On 07-09-2022 8:08:49 UNDER BASTER by Tristin Goldstein M.D. [email or web address]
--- NOTE | 2022-07-08 19:56 | XRR_ITS ---
PROCEDURE INFORMATION: Exam: XR Chest Exam date and time: 07/08/2022 8:08 PM Age: 71 years old Clinical indication: Dyspnea; Prior surgery; Additional info: SOB TECHNIQUE: Imaging protocol: Radiologic exam of the chest. Views: 1 view. COMPARISON: CR XR chest 1V portable [id number] 06/29/2022 1:45 PM FINDINGS: Lungs: There is diffuse lower lobe pulmonary vascular congestion likely secondary to CHF mildly improved from earlier examination. Pleural spaces: Unremarkable. No pleural effusion. No pneumothorax. Heart/Mediastinum: Cardiac silhouette is moderately enlarged with pulmonary vascular redistribution indicating elevated central venous pressure.. Evidence of previous CABG. Bones/joints: Evidence of prior median sternotomy. XR/XR chest 1V portable [id number] IMPRESSION: Cardiomegaly with mild-moderate CHF pattern
--- NOTE | 2022-07-08 19:57 | ED_ITS ---
HPI - SOB/Dyspnea General: Chief Complaint: Shortness of Breath/Dyspnea Stated Complaint: RESP. DISTRESS Time Seen by Provider: 07/08/22 19:50 Source: patient and EMS Mode of arrival: EMS Limitations: no limitations History of Present Illness: HPI Narrative: This patient returns to the emergency department from her home by EMS transport. She has had increasing shortness of breath that has not responded to her usual home therapy. She states she has been taking all her medications as prescribed and using her nebulizer and inhalers as recommended. She has a history of rece nt hospitalizations due to exacerbation of congestive heart failureIn addition to her other comorbidities. She is had a steady downhill course since her recent COVID infection. She currently lives alone. EMS reports that upon arrival despite using oxygen via nasal cannula her pulse oximetry was at approximately 87 to 88%. He had significant work of breathing and therefore the instituted CPAP in route. During transport she also received beta agonist, steroids and terbutaline subcutaneously. MD elicited complaint: shortness of breath Pertinent past history: COPD and congestive heart failure Context: recent illness Relieving factors: oxygen, bronchodilators and medication Known history of: congestive heart failure Associated symptoms: Deny abdominal pain, chest pain, extremity pain, nausea, palpitations or vomiting Treatment prior to arrival: bronchodilator and NIPPV Review of Systems Const: Reports: fatigue Eyes: Denies: change in vision ENMT: Denies: throat pain, odynophagia, nasal discharge or nasal congestion Card: Reports: edema and swelling of feet/ankles; Denies: chest pain or palpitations Resp: Reports: dyspnea and wheezing GI: Denies: abdominal pain, nausea, vomiting or diarrhea : Denies: flank pain, difficulty voiding, dysuria or urinary frequency Musc: Denies: neck pain, back pain, extremity pain or extremity swelling Skin/Breast: Denies: rash Neuro: Denies: headache(s), numbness in extremities or weakness in extremities Psych: Reports: sleeping less PFSH ED PFSH: Medical History Acute exacerbation of CHF (congestive heart failure) Acute respiratory failure with hypoxia Anxiety ASHD (arteriosclerotic heart disease) Carotid arterial disease CHF (congestive heart failure) Chronic kidney disease Chronic kidney disease due to diabetes mellitus Colon polyps COPD (chronic obstructive pulmonary disease) Coronary artery disease due to type 2 diabetes mellitus Diabetes mellitus Diabetes type 2, uncontrolled LLOYD (dyspnea on exertion) Dyslipidemia Graves disease History of CVA (cerebrovascular accident) History of myocardial infarction History of skin cancer HTN (hypertension) Hypertensive urgency Hyperthyroidism Insomnia Non-STEMI (non-ST elevated myocardial infarction) NSTEMI (non-ST elevated myocardial infarction) PAD (peripheral artery disease) Pneumonia due to COVID-19 virus Surgical History History of endovascular stent graft for abdominal aortic aneurysm (AAA) Hx of local excision of skin lesion (09/16/20) Left forearm x2 S/P CABG (coronary artery bypass graft) S/P cardiac catheterization S/P cataract surgery S/P cholecystectomy S/P hysterectomy with oophorectomy S/P skin and subcutaneous tissue surgery Status post colonoscopy (09/16/20) Family History Sister Mark's disease Sister No problems noted. Mother No problems noted. Other Anesthesia complication Social History Smoking and tobacco status: former smoker Alcohol intake: current Alcohol intake frequency: holidays/special occasions only Physical Exam Narrative: EXAM NARRATIVE: Patient is alert and responsive. She is currently receiving noninvasive ventilatory support via facemask which limits her communication somewhat but she does respond in short declarative sentences. Const: COMMON NORMALS: patient oriented x3 GENERAL APPEARANCE: disheveled, ill appearing and appears older than stated age ORIENTATION/CONSCIOUSNESS: Yes awake HENMT: COMMON NORMALS: normocephalic, atraumatic, Normal nasal mucous membranes and turbinates present and moist oral mucous membranes HEAD & SCALP: normocephalic and atraumatic FACE & SINUS: normal facial exam NOSE: Normal nasal mucous membranes and turbinates present Eye: COMMON NORMALS: Equal, round and reactive pupils present, EOMs intact bilaterally and conjunctivae normal CONJUNCTIVA: Yes conjunctivae normal PUPIL: Yes Equal, round and reactive pupils present Neck/C-Spine: COMMON NORMALS: full ROM, no lymphadenopathy, no JVD and No carotid bruits Chest: COMMONS NORMALS: normal inspection of the chest Resp: EFFORT & INSPECTION: Yes labored and Yes uses accessory muscles AUSCULTATION: rhonchi, wheezes and diminished lung sounds Cardio: COMMON NORMALS: no JVD, regular rate, regular rhythm, No murmurs present (Cardio) and Peripheral pulses 2+ throughout JUGULAR VENOUS DISTENTION: no JVD RATE: regular rate RHYTHM: regular rhythm PERIPHERAL PULSES: Peripheral pulses 2+ throughout GI: COMMON NORMALS: Normal to inspection, nondistended, normoactive bowel s ounds present, Soft to palpation and non-tender PALPATION: Yes Soft to pa lpation : COMMON NORMALS: Yes no CVA tenderness BLADDER/KIDNEY EXAM: Yes no CVA tenderness Back/Pelvis: COMMON NORMALS: no CVA tenderness and no thoracic nor lumbar tenderness Extremity: COMMON NORMALS: capillary refill normal and no calf tenderness GENERAL: Yes edema (Pretibial edema noted bilaterally lower extremities) Neuro: COMMON NORMALS: patient oriented x3, moves all extremities and no focal motor deficits CRANIAL NERVES: Yes CN normal except as noted Psych: COMMON NORMALS: mental status grossly normal Skin: COMMON NORMALS: no rashes or lesions noted and turgor normal GENERAL SKIN EXAM: no rashes or lesions noted and turgor normal Course Reevaluation(s): Reevaluation #1: The patient is still receiving BiPAP. She appears to be comfortable and tolerating noninvasive ventilatory support well. I discussed her current presentation and results and the implications. We also discussed her desires for aggressive intervention. We discussed whether she would want to proceed with mechanical ventilation with intubation should that be necessary and she voiced that she would be willing to do so if it was a temporary measure. She does not prefer to be ventilatory dependent for long-term. She also agreed to aggressive resuscitative efforts if they had hopes of restoring her to her usual premorbid state. Bedside ultrasound was used to evaluate her IVC and it appeared to be distended without any respiratory variation. Time: 21:38 Vital Signs: Vital signs: Vital Signs Pulse Rate 87 07/08/22 21:35 Respiratory Rate 27 H 07/08/22 21:35 Blood Pressure 169/85 07/08/22 21:35 Pulse Oximetry 100 07/08/22 21:40 Oxygen Delivery Me thod 07/08/22 21:40 Fraction of Inspir ed Oxygen 100 07/08/22 20:18 MDM - SOB/Dyspnea Medical Decision Making This patient presented to the emergency department via EMS with increasing respiratory difficulty. She has had a somewhat stormy course since jose armando COVID number of weeks ago with multiple hospitalizations for exacerbations of chronic congestive heart failure, chronic obstructive pulmonary disease. She is now in the emergency department with a similar occurrence requiring noninvasive ventilatory support with a significant leukocytosis, elevation in her brain natruretic peptide and as well as concomitant chronic kidney disease etc. No obvious source of infection at the time of this note however urinalysis is still pending. Her chest x-ray did not reveal any infiltrative process but just findings suggestive of exacerbation of heart failure with pulmonary congestion. She has a concomitant elevation in her lactate but also has an element of chronic kidney disease which can contribute to lactate elevation however she is not displayed that perturbation of portion of her biochemistry and her previous illnesses. Given her significant leukocytosis and lactate elevation she is being treated with as a loading dose of empiric HTN M as well as vancomycin until further elucidation of potential infection sources can be undertaken. Given her heart failure picture with elevated troponin, plump IVC on bedside ult rasound is not clinically reasonable to give her empiric large amounts of IV fluids at this juncture. We also discussed her resuscitative desires during her emergency department stay. She is being admitted to the hospitalist service for further work-up, treatment and supportive care. Medical Records I reviewed the patient's medical records. Prior hospitalizations that included noninvasive ventilatory support, treatment for a non-Q wave NE as well as COVID-19. Lab Data I reviewed the patient's lab results. 07/08/22 19:49 07/08/22 19:49 Labs/Radiology: Radiology Impressions Chest X-Ray 07/08/22 19:56 IMPRESSION: Cardiomegaly with mild-moderate CHF pattern Laboratory Results WBC 27.8 10^3/uL (4.0-10.0) H 07/08/22 19:49 RBC 4.05 10^6/uL (4.1-5.3) L 07/08/22 19:49 Hgb 12.3 g/dL (11.5-15.3) 07/08/22 19:49 Hct 39.6 % (37.0-47.0) 07/08/22 19:49 MCV 97.8 fl (81-99) 07/08/22 19:49 MCH 30.4 pg (28.0-34.0) 07/08/22 19:49 MCHC 31.1 g/dL (30.0-36.0) 07/08/22 19:49 RDW 14.3 % (12.1-15.1) 07/08/22 19:49 Plt Count 365 10^3/cmm (130-400) 07/08/22 19:49 MPV 10.8 fL (7.4-10.4) H 07/08/22 19:49 Neut % (Auto) 53.0 % 07/08/22 19:49 Lymph % (Auto) 37.7 % 07/08/22 19:49 [place] % (Auto) 6.0 % 07/08/22 19:49 Eos % (Auto) 2.3 % 07/08/22 19:49 Baso % (Auto) 0.3 % 07/08/22 19:49 Neut # (Auto) 14.72 10^3/uL (1.8-7.7) H 07/08/22 19:49 Lymph # (Auto) 10.5 10^3/uL (0.8-4.8) H 07/08/22 19:49 [place] # (Auto) 1.7 10^3/uL (0.2-0.9) H 07/08/22 19:49 Eos # (Auto) 0.7 10^3/uL (0.0-0.8) 07/08/22 19:49 Baso # (Auto) 0.1 10^3/uL (0.0-0.1) 07/08/22 19:49 Nucleated RBC % (auto) 0 % 07/08/22 19:49 Nucleated RBCs # 0.0 /100WBC 07/08/22 19:49 Sodium 137 mmol/L (136-145) 07/08/22 19:49 Potassium 5.0 mmol/L (3.5-5.1) 07/08/22 19:49 Chloride 96 mmol/L (98-107) L 07/08/22 19:49 Carbon Dioxide 19 mmol/L (22-29) L 07/08/22 19:49 Anion Gap 27.0 (5-19) H 07/08/22 19:49 BUN 31 mg/dL (8-23) H 07/08/22 19:49 Creatinine 2.1 mg/dL (0.5-0.9) H 07/08/22 19:49 GFR Calculation Not Reportable 07/08/22 19:49 Glucose 298 mg/dL (65-115) H 07/08/22 19:49 Calculated Osmolality 302 mOsm/kg (285-295) H 07/08/22 19:49 Lactic Acid 4.1 mmol/L (0.5-2.2) H* 07/08/22 20:01 Calcium 8.8 mg/dL (8.5-10.5) 07/08/22 19:49 Total Bilirubin 0.3 mg/dL (0.15-1.2) 07/08/22 19:49 AST 28 U/L (0-32) 07/08/22 19:49 ALT 22 U/L (0-33) 07/08/22 19:49 Alkaline Phosphatase 130 U/L (35-105) H 07/08/22 19:49 Troponin T Baseline 95 ng/L (0-10) H 07/08/22 19:49 NT-Pro-B Natriuret Pep 80824 pg/mL (0-125) H 07/08/22 19:49 Total Protein 6.3 g/dL (6.6-8.7) L 07/08/22 19:49 Albumin 3.7 g/dL (3.5-5.2) 07/08/22 19:49 Globulin 2.6 g/dL (1.3-4.6) 07/08/22 19:49 Urine Color Yellow (Yellow) 07/08/22 21:10 Urine Appearance Clear (CLEAR) 07/08/22 21:10 Urine pH 6 (5-7) 07/08/22 21:10 Ur Specific [place] 1.020 (1.005-1.030) 07/08/22 21:10 Urine Protein 3+ (Negative) H 07/08/22 21:10 Urine Glucose (UA) 4+ (Normal) H 07/08/22 21:10 Urine Ketones Negative (Negative) 07/08/22 21:10 Urine Blood 2+ (Negative) H 07/08/22 21:10 Urine Nitrate Negative (Negative) 07/08/22 21:10 Urine Bilirubin Neg (Negative) 07/08/22 21:10 Urine Urobilinogen Norm mg/dL (Negative) 07/08/22 21:10 Ur Leukocyte Esterase Negative (Negative) 07/08/22 21:10 Urine RBC 5-10 /hpf (0-2) H 07/08/22 21:10 Urine WBC 0-4 /hpf (0-5) H 07/08/22 21:10 Ur Squamous Epith Cells 15-25 /hpf (0-5) H 07/08/22 21:10 Ur Transition Epith Cell 5-10 /hpf 07/08/22 21:10 Ur Renal Epithelial Cell 5-10 /hpf 07/08/22 21:10 Amorphous Sediment 1+ /hpf 07/08/22 21:10 Urine Bacteria Trace /hpf (NONE) 07/08/22 21:10 Hyaline Casts 5-10 /lpf H 07/08/22 21:10 Fine Granular Casts 0-5 /lpf 07/08/22 21:10 Coarse Granular Casts 0-2 /lpf 07/08/22 21:10 EKG Data EKG 1: I personally reviewed and interpreted this EKG as follows: Interpretation: Contemporaneous review of EKG reveals a ventricular rate of 84 bpm. Normal WA interval, normal QRS duration, normal corrected QT interval. She has normal axis. She has some baseline interference but no acute ST-T wave changes noted at this time. Underlying EKG rhythm essentially unchanged from prior EKGs within the system. Discharge Plan Discharge Patient Disposition: Admitted As Inpatient Admit Provider: Smiley Hanson Clinical Impression: CKD (chronic kidney disease) stage 3, GFR 30-59 ml/min, Congestive heart failure, Acute exacerbation of chronic obstructive airways disease Condition: Stable Coding Level of Care Code ED [employer] for Chg Fwd Exam Comprehensive
[2022-07-08 20:04] LABS: Basophils # 0.1 10^3/uL (0.0-0.1); Basophils % 0.3 %; Eosinophils # 0.7 10^3/uL (0.0-0.8); Eosinophils % 2.3 %; Hematocrit 39.6 % (37.0-47.0); Hemoglobin 12.3 g/dL (11.5-15.3); Lymphocytes # 10.5 10^3/uL (0.8-4.8); Lymphocytes % 37.7 %; Mean Corpuscular HGB Conc 31.1 g/dL (30.0-36.0); Mean Corpuscular Hemoglobin 30.4 pg (28.0-34.0); Mean Corpuscular Volume 97.8 fl (81-99); Mean Platelet Volume 10.8 fL (7.4-10.4); Monocytes # 1.7 10^3/uL (0.2-0.9); Neutrophils # 14.72 10^3/uL (1.8-7.7); Nucleated Red Blood Cells % 0 %; Platelet Count 365 10^3/cmm (130-400); Red Blood Count 4.05 10^6/uL (4.1-5.3); Red Cell Distribution Width 14.3 % (12.1-15.1); White Blood Count 27.8 10^3/uL (4.0-10.0)
[2022-07-08 20:17] LABS: Troponin(5th) Baseline 95 ng/L (0-10)
[2022-07-08] MEDS: ipratropium-albuterol 3 mL Neb INHALATION (20:17)
[2022-07-08 20:24] LABS: Alanine Aminotransferase 22 U/L (0-33); Albumin Level 3.7 g/dL (3.5-5.2); Alkaline Phosphatase 130 U/L (35-105); Aspartate Amino Transferase 28 U/L (0-32); Blood Urea Nitrogen 31 mg/dL (8-23); Calcium 8.8 mg/dL (8.5-10.5); Carbon Dioxide 19 mmol/L (22-29); Chloride 96 mmol/L (98-107); Globulin 2.6 g/dL (1.3-4.6); Glucose 298 mg/dL (65-115); Osmolality Calculated 302 mOsm/kg (285-295); Sodium 137 mmol/L (136-145); Total Bilirubin 0.3 mg/dL (0.15-1.2); Total Protein 6.3 g/dL (6.6-8.7)
[2022-07-08 20:30] LABS: Lactic Sepsis W/Reflex 4.1 mmol/L (0.5-2.2)
[2022-07-08 20:54] LABS: Reflex Lactate Order REFLEX LACTIC ORDERD
[2022-07-08] MEDS: FUROsemide 10 mg/mL SDV 4mL 40 MG IVP (21:48)
[2022-07-08] MEDS: vancomycin 1,000 MG in sodium chloride 0.9% 250 ML 250 MG IV (21:49)
[2022-07-08] MEDS: aztreonam 1,000 MG in sodium chloride 0.9% (plus) 50 ML 100 MG IV (21:53)
--- NOTE | 2022-07-08 21:57 | ECG_ITS ---
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 Measurements Intervals [place] Rate: 88 P: 99 ND: 152 QRS: 18 QRSD: 113 T: 107 QT: 377 QTc: 457 Interpretive Statements SINUS RHYTHM WITH FREQUENT VENTRICULAR PREMATURE COMPLEXES INDETERMINATE AXIS POSSIBLE INFERIOR MYOCARDIAL INFARCTION , PROBABLY OLD [30 ms Q WAVE IN II/aVF] Compared to ECG 07/08/2022 19:51:56 Ventricular premature complex(es) now present Indeterminate axis now present Myocardial infarct finding now present Intraventricular conduction delay no longer present T-wave abnormality no longer present Possible ischemia no longer present Electronically Signed On 07-09-2022 8:09:36 ACID REGENERATOR by Tristin Goldstein M.D. [id number]
--- NOTE | 2022-07-08 22:02 | P.HP_ITS ---
Providers/Chief Complaint Admitting Physician: Smiley Hanson MD Primary Care Provider: Jocelyne Kirby Chief Complaint: RESP. DISTRESS History of Present Illness Romi Yuan is a 71 year old female with past medical history of CAD s/p 2 CABG surgeries last one was in 2004, CKD, peripheral and renal stents, dyslipidemia, hypertensive urgency, hypothyroidism, recent COVID-19 who presented to the hospital on June 24 for shortness of breath.? Last cardiac catheterization in 2018 showed patent LOVETT to LAD.? SVG to RCA and SVG to diagonal artery were occluded.? This will be her fifth admission within the last 1 month with recurrent pulmonary edema.? She has presented this time to the hospital with worsening shortness of breath. Patient is stating that she is using oxygen on as-needed basis, lives alone, she is denying fever, productive cough, stating that she is compliant with her medications, today she started getting short of breath on exertion. Around 3 PM she was also getting chest pain which she describes as pressure-like sensation which lasted until she took nitroglycerin. She denies syncopal event, nausea, vomiting. Patient is stating that she could not finish sentences, she was very short of breath she overworked herself. She never took any steroids at home In the ER she was diagnosed with pulm edema, CHF exacerbation, high lactic acid due to increased work of breathing, significant leukocytosis without any febrile events, she was given broad-spectrum antibiotics however chest x-ray is consistent with pulm edema, At the time of my evaluation she is on BiPAP very comfortable with normal hemodynamics Saturating 100% Work of breathing decreased with BiPAP Review of Systems Const: Reports: chills and body aches Eyes: Denies: change in vision ENMT: Denies: throat pain Card: Reports: chest pain, dyspnea on exertion and orthopnea; Denies: swelling of feet/ankles Resp: Reports: dyspnea GI: Denies: abdominal pain : Denies: flank pain Musc: Denies: neck pain Skin/Breast: Denies: rash Neuro: Denies: headache(s) Psych: Denies: anxiety Endo: Denies: polyuria Alonzo/Lymph: Denies: easy bruising All/Imm: Denies: urticaria Medications/Allergies Home Medications Medication Instructions Recorded Confirmed Last Taken Type isosorbide mononitrate 60 mg 60 mg PO BID 07/20/19 07/03/22 06/23/22 History tablet,extended release 24 hr tizanidine 4 mg capsule (Zanaflex) 4 mg PO DAILY PRN MUSCLE SPASMS 07/20/19 07/03/22 06/23/22 History umeclidinium 62.5 mcg-vilanterol 1 inh inhalation DAILY 07/20/19 07/03/22 06/23/22 History 25 mcg/actuation powdr for inhalation (Anoro Ellipta) venlafaxine 150 mg 150 mg PO DAILY 07/20/19 07/03/22 06/23/22 History capsule,extended release 24 hr (Effexor XR) nitroglycerin 0.4 mg sublingual 0.4 mg sublingual PRN PRN CHEST 10/19/19 07/03/22 Unknown History tablet PAINS cholecalciferol (vitamin D3) 125 125 mcg PO Q7D 02/21/20 07/03/22 07/02/21 09:00 History mcg (5,000 unit) capsule insulin aspart U-100 100 unit/mL 6 unit SUBCUT QID 02/21/20 07/03/22 06/09/22 19:00 History subcutaneous solution (Novolog U-100 Insulin aspart) methimazole 5 mg tablet 5 mg PO DAILY #30 tabs 03/11/20 07/03/22 06/23/22 Rx blood sugar diagnostic (Accu-Chek #120 ea 06/23/21 07/03/22 Unknown Rx Ana M Plus test strips) aspirin 81 mg tablet,delayed 81 mg PO DAILY #60 tabs 06/15/22 07/03/22 06/23/22 Rx release (Adult Aspirin Regimen) clopidogrel 75 mg tablet (Plavix) 75 mg PO DAILY #60 tabs 06/15/22 07/03/22 06/23/22 Rx acitretin 10 mg capsule 10 mg PO DAILY 06/19/22 07/03/22 06/23/22 History atorvastatin 40 mg tablet 40 mg PO BEDTIME 06/19/22 07/03/22 06/23/22 History nystatin 100,000 unit/mL oral 100,000 unit PO DAILY 06/19/22 07/03/22 Unknown History suspension venlafaxine 75 mg capsule,extended 75 mg PO DAILY 06/19/22 07/03/22 06/23/22 History release 24 hr docusate sodium 100 mg capsule 100 mg PO BID PRN Constipation 06/24/22 07/03/22 Unknown History (Colace) metoprolol succinate 25 mg 25 mg PO DAILY 06/24/22 07/03/22 06/23/22 History tablet,extended release 24 hr potassium chloride 10 mEq 20 meq PO DAILY 06/24/22 07/03/22 Unknown History tablet,extended release furosemide 40 mg tablet 60 mg PO DAILY@0800 30 days #45 07/02/22 07/03/22 Unknown Rx tabs hydralazine 25 mg tablet 75 mg PO TID 30 days #270 tabs 07/02/22 07/03/22 Unknown Rx nifedipine 30 mg tablet,extended 90 mg PO DAILY 30 days #90 tabs 07/02/22 07/03/22 Unknown Rx release 24 hr pantoprazole 40 mg tablet,delayed 40 mg PO DAILY 14 days #14 tabs 07/02/22 07/03/22 Unknown Rx release Allergies Allergy/AdvReac Type Severity Reaction Status Date / Time cefuroxime [From Ceftin] Allergy ALGY-Rash Verified 06/30/22 08:40 cephalexin [From Keflex] Allergy ALGY-Rash Verified 06/30/22 08:40 hydroxyzine [From Vistaril] Allergy ALGY-Anaphy Verified 06/30/22 08:40 laxis Penicillins Allergy ALGY-Redness Verified 06/30/22 08:40 of Skin prochlorperazine Allergy ALGY-Anaphy Verified 06/30/22 08:40 [From Compazine] laxis promethazine [From Phenergan] Allergy ALGY-Anaphy Verified 06/30/22 08:40 laxis venom-honey bee Allergy ALGY-Anaphy Verified 06/30/22 08:40 laxis simvastatin [From Zocor] AdvReac ADR-Heartbu Verified 06/30/22 08:40 rn PFSH Acute PFSH: Medical History Acute exacerbation of CHF (congestive heart failure) Acute respiratory failure with hypoxia Anxiety ASHD (arteriosclerotic heart disease) Carotid arterial disease CHF (congestive heart failure) Chronic kidney disease Chronic kidney disease due to diabetes mellitus Colon polyps COPD (chronic obstructive pulmonary disease) Coronary artery disease due to type 2 diabetes mellitus Diabetes mellitus Diabetes type 2, uncontrolled LLOYD (dyspnea on exertion) Dyslipidemia Graves disease History of CVA (cerebrovascular accident) History of myocardial infarction History of skin cancer HTN (hypertension) Hypertensive urgency Hyperthyroidism Insomnia Non-STEMI (non-ST elevated myocardial infarction) NSTEMI (non-ST elevated myocardial infarction) PAD (peripheral artery disease) Pneumonia due to COVID-19 virus Surgical History History of endovascular stent graft for abdominal aortic aneurysm (AAA) Hx of local excision of skin lesion (09/16/20) Left forearm x2 S/P CABG (coronary artery bypass graft) S/P cardiac catheterization S/P cataract surgery S/P cholecystectomy S/P hysterectomy with oophorectomy S/P skin and subcutaneous tissue surgery Status post colonoscopy (09/16/20) Family History Sister Mark's disease Sister No problems noted. Mother No problems noted. Other Anesthesia complication Social History Smoking and tobacco status: former smoker Alcohol intake: current Alcohol intake frequency: holidays/special occasions only Vitals/I&O/Wt Last Vital Signs Pulse 87 07/08/22 21:35 Resp 27 H 07/08/22 21:35 BP 169/85 07/08/22 21:35 Pulse Ox 100 07/08/22 21:40 O2 Del Method 07/08/22 21:40 FiO2 100 07/08/22 20:18 Weight last 48 hrs Weight 65.317 kg Physical Exam Narrative: Patient is on BiPAP Awake and alert Pleasant and cooperative Clinically looks overloaded with 2+ edema of legs Nondistended abdomen Pleasant and cooperative GCS 15 EOMI, PERRLA Mild cardiac wheezing Appropriate mood and affect Nonfocal neuro exam Munson catheter draining dilute urine Urinary Catheter Management: Munson: Cath Placed During This Visit: yes Urinary Catheter Date of Insertion: 07/08/22 Urinary Catheter Time of Insertion: 21:00 Data 07/08/22 19:49 07/08/22 19:49 Micro: Microbiology 07/08/22 20:21 Blood Culture - Preliminary Blood SPECIMEN COLLECTED 07/08/22 20:40 Blood Culture - Preliminary Blood SPECIMEN COLLECTED A&P Assessment and plan (1) Congestive heart failure: (2) CKD (chronic kidney disease) stage 3, GFR 30-59 ml/min: (3) Acute exacerbation of CHF (congestive heart failure): (4) Acute exacerbation of chronic obstructive airways disease: Plan Recurrent CHF exacerbation EF 35 to 40% Grade 1 diastolic function Start IV diuresis Untreated sleep apnea? Noncompliance with oxygen Patient is stating that he uses oxygen on as-needed basis, does not use a daily basis Patient is stating she lives alone compliant with her medications No active chest pain Continue BiPAP to decrease work of breathing Acute hypercapnic respiratory failure Currently on BiPAP Plan to give her BiPAP break in the morning to her eat We will repeat ABG in the morning currently hemodynamically stable, normal mentation GCS 15 Unstable angina Troponin serial along serial EKGs No active chest pain Chest pain relieved with nitro Continue aspirin and Plavix Currently hemodynamically stable High lactic acid most likely due to increased work of breathing I do not see any signs of pneumonia on chest x-ray, pneumonia needs to be ruled out For now because of her recent hospitalization we will treat her for possible infection with broad-spectrum antibiotics vancomycin and aztreonam Allergic to multiple medications She is not a candidate for septic bolus She has significant lactic acidemia and leukocytosis Afebrile Chronic kidney disease without acute exacerbation Full code Cardiac diet DVT prophylaxis on board Patient will need sleep study referral at the time of discharge, cardiac rehab This is her fifth admission for CHF exacerbation She lives alone, I do believe other family members should be educated to prevent sodium overload, reduced readmissions due to noncompliance with her oxygen and perhaps switching diuretics from Lasix to Bumex Attestations Medical Necessity Statement*: Anticipating more than 2 midnight for hypercap maye respite failure, CHF exacerbation Time Spent in Patient Care: 40 Coding Level of Care Code Acute Code for Chg Fwd Diagnoses Congestive heart failure I50.9 CKD (chronic kidney disease) stage 3, GFR 30-59 ml/min N18.30 Acute exacerbation of CHF (congestive heart failure) I50.9 Acute exacerbation of chronic obstructive airways disease J44.1
[2022-07-08 22:03] LABS: ABG PCO2 57.2 mmHg (35-45); ABG PH Result 7.28 (7.35-7.45); Arterial Blood Gas Hematocrit 35.2 % (37-47); Base Excess ABG -0.8 mmol/L (-2.0-2.0); Base Excess VBG -0.8 mmol/L (-3.0-3.0); Blood Gas Allen Test Pos; Blood Gas Sample Type Venous; Carboxyhemoglobin 1.5 %THgb (0.4-20.1); HCO3 ABG 26.7 mmol/L (22-26); HCO3 VBG 26.7 mmol/L (24-28); PCO2 VBG 57.2 mmHg (41-51); Total Hemoglobin 11.5 g/dL (12-16); Venous Blood Gas Hematocrit 35.2 % (37-47); pH VBG 7.28 (7.32-7.42)
[2022-07-08 22:03] LABS: Add Urine Microscopic? YES; Bilirubin Urine Neg (Negative); Blood Urine 2+ (Negative); Glucose Urine UA 4+ (Normal); Ketones Urine Negative (Negative); Leukocyte Esterase Urine Negative (Negative); Nitrate Urine Negative (Negative); Protein Urine 3+ (Negative); Urine Appearance Clear (CLEAR); Urine Color Yellow (Yellow); Urobilinogen Urine Norm (Negative); pH Urine 6 (5-7)
[2022-07-08 22:04] LABS: Amorphous Sediment Urine 1+ /hpf; Bacteria Urine TRACE /hpf; Coarse Granular Casts Urine 0-2 /lpf; Fine Granular Casts Urine 0-5 /lpf; Squamous Epithelial Cell Urine 15-25 /hpf (0-5); WBC Urine 0-4 /hpf (0-5)
[2022-07-08 22:05] LABS: Oxygen Device BIPAP
[2022-07-08 22:05] LABS: Add Urine Culture? No
[2022-07-08 22:21] LABS: Troponin 5 2HR 94.03 ng/L (0-10)
[2022-07-08 22:37] LABS: Influenza A by IFA negative (Negative); Influenza B by IFA negative (Negative); SARS Covid-2 Antigen negative (Negative)
[2022-07-08 22:39] LABS: Troponin 5 2HR Delta -0.97 ABS# (0-10)
[2022-07-08] MEDS: FUROsemide 10 mg/mL SDV 10mL 60 MG IVP (23:12)
[2022-07-08 23:47] LABS: Lactic Acid level (Lactate) 1.5 mmol/L (0.5-2.2)
[2022-07-09] VITALS (94 sets, daily range): BP systolic 116–186; BP diastolic 45–89; PULSE 67–103; RESP 5–35; TEMP 37–37.3; O2SAT 94–100
--- NOTE | 2022-07-09 01:57 | ECG_ITS ---
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 Measurements Intervals [place] Rate: 82 P: 39 MA: 173 QRS: -14 QRSD: 112 T: 119 QT: 388 QTc: 455 Interpretive Statements SINUS RHYTHM WITH FREQUENT VENTRICULAR PREMATURE COMPLEXES LEFT VENTRICULAR HYPERTROPHY AND ST-T CHANGE [VOLTAGE CRITERIA PLUS ST/T ABNORMALITY] PROBABLE INFERIOR MYOCARDIAL INFARCTION , PROBABLY OLD [35 ms Q WAVE IN II/aVF] Compared to ECG 07/08/2022 21:56:45 Left ventricular hypertrophy now present ST (T wave) deviation now present Indeterminate axis no longer present Myocardial infarct finding still present Electronically Signed On 07-09-2022 8:39:47 MISSING [employer] INVESTIGATOR by Nohemy Christianson M.D. [id number]
[2022-07-09 02:56] LABS: Anion Gap 20.8 (5-19); Blood Urea Nitrogen 33 mg/dL (8-23); C Reactive Protein 16.5 mg/L (0.0-4.9); Carbon Dioxide 20 mmol/L (22-29); Chloride 102 mmol/L (98-107); Glucose 374 mg/dL (65-115); Magnesium 1.6 mg/dL (1.7-2.3); Osmolality Calculated 309 mOsm/kg (285-295); Phosphorus 3.4 mg/dL (2.5-4.5); Potassium 4.8 mmol/L (3.5-5.1); Sodium 138 mmol/L (136-145)
[2022-07-09 02:57] LABS: Troponin 5 6HR 85.04 ng/L (0-10)
[2022-07-09 02:57] LABS: Glucose Point of Care 384 mg/dL (70-110)
[2022-07-09 02:58] LABS: Troponin 5 6HR Delta -9.96 ng/L (0-12)
--- NOTE | 2022-07-09 03:45 | PC.NURSE ---
Insulin Patient's glucose [address] Hanson contacted and order to be placed for insulin sliding scale. At 0615, Dr. Hanson contacted and order placed for moderate insulin sliding scale with meals and at bedtime, first dose starting now. See MAR for administration.
[2022-07-09 03:53] LABS: D Dimer > 20.00 ug/mIFEU (0-0.59)
--- NOTE | 2022-07-09 04:00 | NM_ITS ---
WS: [id number] NUCLEAR MEDICINE LUNG VENTILATION AND PERFUSION CLINICAL INFORMATION: HYPOXIA TECHNIQUE: Ventilation/perfusion lung scan with 32.8 mCi technetium 99m DTPA. 4.8 mCi MAA COMPARISON: Chest radiograph July 08, 2022 FINDINGS: Chest radiograph reviewed. Cardiomegaly with interstitial edema. No focal pneumonia. Slightly patchy heterogeneous perfusion with normal ventilatory images. Decreased ventilation in the upper lobes compatible with emphysematous change. A few small matched defects. No mismatched or lobar defects to indicate pulmonary embolus. NM/NM pul vent and perfus* [id number] IMPRESSION: 1. Low probability for pulmonary embolus.
[2022-07-09 04:43] LABS: Basophils % 0.1 %; Hematocrit 32.9 % (37.0-47.0); Hemoglobin 10.8 g/dL (11.5-15.3); Lymphocytes # 0.7 10^3/uL (0.8-4.8); Lymphocytes % 5.7 %; Mean Corpuscular HGB Conc 32.8 g/dL (30.0-36.0); Mean Corpuscular Hemoglobin 30.5 pg (28.0-34.0); Mean Corpuscular Volume 92.9 fl (81-99); Mean Platelet Volume 10.5 fL (7.4-10.4); Monocytes # 0.3 10^3/uL (0.2-0.9); Monocytes % 2.1 %; Neutrophils # 10.89 10^3/uL (1.8-7.7); Neutrophils % 91.4 %; Nucleated Red Blood Cells % 0 %; Platelet Count 220 10^3/cmm (130-400); Red Blood Count 3.54 10^6/uL (4.1-5.3); Red Cell Distribution Width 14.1 % (12.1-15.1); White Blood Count 11.9 10^3/uL (4.0-10.0)
[2022-07-09] MEDS: heparin drip 25,000 UNIT/500 ML PREMIX 18 UNIT IV (05:06)
[2022-07-09 05:13] LABS: Partial Thromboplastin Time 17.3 SECONDS (23.9-36.7)
[2022-07-09] MEDS: heparin 5,000 unit/mL INJ 1 mL IV (05:17)
[2022-07-09 07:06] LABS: Glucose Point of Care 322 mg/dL (70-110)
[2022-07-09] MEDS: insulin lispro 100 unit/1 mL SUBCUT ×3 (07:09→17:29)
[2022-07-09] MEDS: methIMAzole 5 MG Tablet PO (08:32)
[2022-07-09] MEDS: aspirin 81 mg EC Tablet PO (08:32)
[2022-07-09] MEDS: isosorbide mononitrate ER 60 mg Tablet PO ×2 (08:32→17:29)
[2022-07-09] MEDS: hyDRALAzine 25 mg Tablet 75 MG PO ×3 (08:32→20:32)
[2022-07-09] MEDS: clopidogrel 75 mg Tablet PO (08:32)
--- NOTE | 2022-07-09 08:50 | PC.PHAR ---
pt states she takes care of her own medications-pt states she has only been taking nifedipine er 30mg daily rx filled 07/02/22 30d/s for 90mg daily-pt states still using the nystatin 5ml qid ext med history shows last filled 06/17/22 10d/s-pt states she uses her insulin prn-pt states she uses humalog kwikpen ss tid prn [facility] last filled 07/15/2020-levemir flexpen 8-10 units daily prn [facility] last filled 05/12/2021 30 units daily-notes are made in the pharmacy comments
[2022-07-09] MEDS: aztreonam 1,000 MG in sodium chloride 0.9% (plus) 50 ML 100 MG IV (09:14)
[2022-07-09 11:45] LABS: Partial Thromboplastin Time > 250.0 SECONDS (23.9-36.7)
[2022-07-09] MEDS: FUROsemide 10 mg/mL SDV 10mL 60 MG IVP ×2 (11:50→22:43)
[2022-07-09 12:04] LABS: Glucose Point of Care 154 mg/dL (70-110)
--- NOTE | 2022-07-09 12:17 | USCV_ITS ---
Romi Yuan Age: 71 Gender: F : 1950 Exam Date: 07/09/2022 13:03 Ordering Phys: Geoff Dinero MD Technologist: Alberto Underwood [place] [facility] [place] Indication: PROCEDURES: Bilaterally, the common femoral, superficial femoral, profunda femoral, popliteal, posterior tibial, greater saphenous veins, and the peroneal trunk were identified and interrogated in the standard fashion. These veins were found to be easily compressible with spontaneous blood flow. No evidence of insufficiency or thrombus noted. In addition, the posterior tibial veins were evaluated. FINDINGS: Normal 2-D Doppler and augmentation and compressibility throughout the lower extremity venous structures. Additional imaging through the proximal calf veins also reveals no thrombus. Limited evaluation of the greater saphenous vein is patent with no thrombus. CONCLUSIONS No DVT bilateral lower extremities. Dr. Rosario Doyle DO (Electronically Signed) Final Date: 09 July 2022 16:10 S
--- NOTE | 2022-07-09 12:26 | PC.NURSE ---
PTT came back greater than 250, notified Dr. Dinero, VQ scan was negative, heparin order discontinued.
[2022-07-09] MEDS: meropenem 500 MG in sodium chloride 0.9% (plus) 50 ML 100 MG IV ×2 (13:39→20:33)
[2022-07-09 17:36] LABS: Glucose Point of Care 173 mg/dL (70-110)
--- NOTE | 2022-07-09 18:06 | PM.PN ---
Subjective Subjective: Patient was seen and examined this morning shortness of breath is improved, VQ scan is negative for PE, No DVT, heparin drip has been stopped. Medications: Medication Review Details: Generic Name Dose Route Start Last Admin Trade Name Freq PRN Reason Stop Dose Admin Aspirin 81 mg 07/09/22 09:00 07/09/22 08:32 Aspirin 81 Mg Ec Tablet PO 81 mg DAILY YASMANI Administration Clopidogrel Bisulf ate 75 mg 07/09/22 09:00 07/09/22 08:32 Clopidogrel 75 M g Tablet PO 75 mg DAILY YASMANI Administration Furosemide 60 mg 07/08/22 22:42 07/09/22 11:50 Furosemide 10 Mg /Ml Sdv 10ml IVP 60 mg Q12H YASMANI Administration Heparin Sodium (Po rcine) 0 unit 07/09/22 04:02 07/09/22 05:17 Heparin 5,000 Un it/Ml Inj 1 Ml IV 3,300 unit PRN PRN Administration Heparin weight-ba se protocol Protocol Hydralazine HCl 75 mg 07/09/22 09:00 07/09/22 15:26 Hydralazine 25 M g Tablet PO 75 mg TID YASMANI Administration Meropenem 500 mg/ Sodium 50 mls @ 100 mls/ hr 07/09/22 13:00 07/09/22 15:10 Chloride IV Infused Q8H YASMANI Infusion Protocol Insulin Human Lisp ro 0 unit 07/09/22 06:17 07/09/22 17:29 Insulin Lispro 1 00 Unit/1 Ml SUBCUT 4 unit TIDWM YASMANI Administration Protocol Isosorbide Mononit rate 60 mg 07/09/22 09:00 07/09/22 17:29 Isosorbide [place] itrate Er 60 Mg Ta blet PO 60 mg BID YASMANI Administration Methimazole 5 mg 07/09/22 09:00 07/09/22 08:32 Methimazole 5 Mg Tablet PO 5 mg DAILY YASMANI Administration Vancomycin HCl 125 mg 07/09/22 17:00 07/09/22 18:05 Vancomycin 1,000 Mg Oral Ivette (Btl) PO 125 mg QID YASMANI Administration Vitals/I&O/Wt Last Vital Signs Temp 98.6 F 07/09/22 04:00 Pulse 87 07/09/22 17:15 Resp 21 H 07/09/22 17:15 BP 163/73 07/09/22 17:15 Pulse Ox 98 07/09/22 17:15 O2 Del Method 07/09/22 16:00 O2 Flow Rate 3 07/09/22 08:59 FiO2 40 07/09/22 04:39 07/09/22 07/09/22 07/09/22 06:59 14:59 22:59 Intake Total 250 / 250 584.2 / 584.2 290 / 874.2 Output Total 1300 / 1300 950 / 950 Balance -1050 / -1050 584.2 / 584.2 -660 / -75.8 Weight last 48 hrs Weight 64.954 kg Weight 65.317 kg Physical Exam Const: COMMON NORMALS: patient oriented x3 HENMT: COMMON NORMALS: normocephalic and atraumatic HEAD & SCALP: normocephalic and atraumatic Resp: EFFORT & INSPECTION: Yes symmetric chest movement OTHER: Minimal bilateral wheezing Cardio: COMMON NORMALS: regular rate, regular rhythm, S1 normal heart sound present, S2 normal heart sound present, No gallops present (Cardio), No murmurs present (Cardio), No rub (Cardio) and Peripheral pulses 2+ throughout RATE: regular rate RHYTHM: regular rhythm HEART SOUNDS: S1 normal heart sound present and S2 normal heart sound present PERIPHERAL PULSES: Peripheral pulses 2+ throughout GI: COMMON NORMALS: Normal to inspection, nondistended, normoactive bowel sounds present, Soft to palpation, non-tender, No hepatosplenomegaly present and no masses AUSCULTATION: Yes normoactive bowel sounds PALPATION: Yes Soft to palpation and Yes No hepatosplenomegaly present RECTAL EXAM: deferred Extremity: NARRATIVE EXTREMITY EXAM: 1+ bilateral lower extremity pitting edema Neuro: COMMON NORMALS: patient oriented x3 Urinary Catheter Management: Munson: Cath Placed During This Visit: yes Reason for Continuing Indwelling Catheter: Accurate Measurement of Urinary Output in Critically Ill Patients Urinary Catheter Date of Insertion: 07/08/22 Urinary Catheter Time of Insertion: 21:00 Data 07/09/22 04:30 07/09/22 02:11 Micro: Microbiology 07/08/22 21:05 C.difficile Toxin B Gene (PCR) - Final Stool - Stool Aspirate 07/08/22 23:09 MRSA Culture - Final Nose 07/08/22 20:21 Blood Culture - Preliminary Blood SPECIMEN COLLECTED 02/01/23 20:40 Blood Culture - Preliminary Blood SPECIMEN COLLECTED A&P Assessment and plan (1) Congestive heart failure: (2) CKD (chronic kidney disease) stage 3, GFR 30-59 ml/min: (3) Acute exacerbation of CHF (congestive heart failure): (4) Acute exacerbation of chronic obstructive airways disease: (5) Clostridioides difficile infection: Plan Recurrent CHF exacerbation EF 35 to 40% Grade 1 diastolic function Start IV diuresis Untreated sleep apnea? Noncompliance with oxygen Patient is stating that he uses oxygen on as-needed basis, does not use a daily basis Patient is stating she lives alone compliant with her medications No active chest pain Continue BiPAP to decrease work of breathing Acute hypercapnic respiratory failure Currently on BiPAP Plan to give her BiPAP break in the morning to her eat We will repeat ABG in the morning currently hemodynamically stable, normal mentation GCS 15 Unstable angina Troponin serial along serial EKGs No active chest pain Chest pain relieved with nitro Continue aspirin and Plavix Currently hemodynamically stable High lactic acid most likely due to increased work of breathing I do not see any signs of pneumonia on chest x-ray, pneumonia needs to be ruled out For now because of her recent hospitalization we will treat her for possible infection with broad-spectrum antibiotics vancomycin and aztreonam Allergic to multiple medications She is not a candidate for septic bolus She has significant lactic acidemia and leukocytosis Afebrile Chronic kidney disease without acute exacerbation Full code Cardiac diet DVT prophylaxis on board Patient will need sleep study referral at the time of discharge, cardiac rehab This is her fifth admission for CHF exacerbation She lives alone, I do believe other family members should be educated to prevent sodium overload, reduced readmissions due to noncompliance with her oxygen and perhaps switching diuretics from Lasix to Bumex Attestations Medical Necessity Statement*: Patient is in hospital for management of decompensated heart failure. Coding Level of Care Code Acute Code for Chg Fwd Exam Detailed Diagnoses Congestive heart failure I50.9 CKD (chronic kidney disease) stage 3, GFR 30-59 ml/min N18.30 Acute exacerbation of CHF (congestive heart failure) I50.9 Acute exacerbation of chronic obstructive airways disease J44.1 Clostridioides difficile infection A49.8
--- NOTE | 2022-07-09 18:16 | PC.NURSE ---
Patient tested positive for CDIFF, precautions outside of room
[2022-07-09] MEDS: atorvastatin 40 mg Tablet PO (20:32)
[2022-07-10] VITALS (39 sets, daily range): BP systolic 128–180; BP diastolic 59–89; PULSE 78–109; RESP 13–28; TEMP 36.6–37.1; O2SAT 94–100
[2022-07-10] MEDS: ipratropium-albuterol 3 mL Neb INHALATION ×4 (02:31→20:30)
[2022-07-10 03:52] LABS: Basophils % 0.4 %; Eosinophils # 0.2 10^3/uL (0.0-0.8); Eosinophils % 2.7 %; Hematocrit 31.2 % (37.0-47.0); Hemoglobin 10.2 g/dL (11.5-15.3); Lymphocytes # 2.2 10^3/uL (0.8-4.8); Lymphocytes % 25.6 %; Mean Corpuscular HGB Conc 32.7 g/dL (30.0-36.0); Mean Corpuscular Hemoglobin 30.7 pg (28.0-34.0); Mean Platelet Volume 10.7 fL (7.4-10.4); Monocytes # 0.5 10^3/uL (0.2-0.9); Monocytes % 5.3 %; Neutrophils # 5.55 10^3/uL (1.8-7.7); Neutrophils % 65.4 %; Nucleated Red Blood Cells % 0 %; Platelet Count 208 10^3/cmm (130-400); Red Blood Count 3.32 10^6/uL (4.1-5.3); Red Cell Distribution Width 14.7 % (12.1-15.1); White Blood Count 8.5 10^3/uL (4.0-10.0)
[2022-07-10] MEDS: meropenem 500 MG in sodium chloride 0.9% (plus) 50 ML 100 MG IV (04:17)
[2022-07-10 04:31] LABS: Alanine Aminotransferase 15 U/L (0-33); Albumin Level 2.8 g/dL (3.5-5.2); Alkaline Phosphatase 90 U/L (35-105); Anion Gap 16.2 (5-19); Aspartate Amino Transferase 17 U/L (0-32); Blood Urea Nitrogen 30 mg/dL (8-23); Calcium 8.3 mg/dL (8.5-10.5); Carbon Dioxide 25 mmol/L (22-29); Chloride 104 mmol/L (98-107); Globulin 2.6 g/dL (1.3-4.6); Glucose 216 mg/dL (65-115); Osmolality Calculated 305 mOsm/kg (285-295); Potassium 4.2 mmol/L (3.5-5.1); Sodium 141 mmol/L (136-145); Total Bilirubin 0.2 mg/dL (0.15-1.2); Total Protein 5.4 g/dL (6.6-8.7)
--- NOTE | 2022-07-10 05:14 | PC.NURSE ---
Transfer- pt transferred to [facility], room 105. Report called to Pauline RODRIGUEZ
--- NOTE | 2022-07-10 05:19 | PC.NURSE ---
Patient received at 0500 on hospital bed. No oxygen O2 saturation 97%. Patient is alert and oriented. Inno apparent distress. Munson catheter in place.
[2022-07-10] MEDS: heparin 5,000 unit/mL INJ 1 mL 5000 UNIT SUBCUT ×2 (06:09→18:14)
[2022-07-10 06:26] LABS: Glucose Point of Care 197 mg/dL (70-110)
[2022-07-10] MEDS: clopidogrel 75 mg Tablet PO (08:43)
[2022-07-10] MEDS: aspirin 81 mg EC Tablet PO (08:43)
[2022-07-10] MEDS: methIMAzole 5 MG Tablet PO (08:44)
[2022-07-10] MEDS: hyDRALAzine 25 mg Tablet 75 MG PO ×3 (08:44→20:11)
[2022-07-10] MEDS: isosorbide mononitrate ER 60 mg Tablet PO ×2 (08:44→17:09)
[2022-07-10] MEDS: insulin lispro 100 unit/1 mL SUBCUT ×3 (08:44→17:54)
[2022-07-10] MEDS: pantoprazole DR 40 mg Tablet PO (08:55)
[2022-07-10] MEDS: NIFEdipine ER (24 hr) 30 mg Tablet 60 MG PO (08:56)
[2022-07-10] MEDS: FUROsemide 10 mg/mL SDV 4mL 40 MG IVP ×3 (08:57→20:13)
[2022-07-10] MEDS: vancomycin 750 MG in sodium chloride 0.9% 250 ML 250 MG IV (09:05)
[2022-07-10 11:37] LABS: Glucose Point of Care 148 mg/dL (70-110)
--- NOTE | 2022-07-10 13:04 | PM.PN ---
Subjective Subjective: Patient was seen and examined this morning she was complaining of nonproductive cough, denied any significant shortness of breath, at rest. Lower extremity swelling is going down. Medications: Medication Review Details: Generic Name Dose Route Start Last Admin Trade Name Freq PRN Reason Stop Dose Admin Albuterol/Ipratrop ium 3 ml 07/09/22 20:00 07/10/22 07:51 Ipratropium-Albu terol 3 Ml Neb INHALATION 3 ml Q6H.RESP YASMANI Administration Aspirin 81 mg 07/09/22 09:00 07/10/22 08:43 Aspirin 81 Mg Ec Tablet PO 81 mg DAILY YASMANI Administration Atorvastatin Calci um 40 mg 07/09/22 21:00 07/09/22 20:32 Atorvastatin 40 Mg Tablet PO 40 mg BEDTIME YASMANI Administration Clopidogrel Bisulf ate 75 mg 07/09/22 09:00 07/10/22 08:43 Clopidogrel 75 M g Tablet PO 75 mg DAILY YASMANI Administration Furosemide 40 mg 07/10/22 09:00 07/10/22 08:57 Furosemide 10 Mg /Ml Sdv 4ml IVP 40 mg TID YASMANI Administration Heparin Sodium (Po rcine) 0 unit 07/09/22 04:02 07/09/22 05:17 Heparin 5,000 Un it/Ml Inj 1 Ml IV 3,300 unit PRN PRN Administration Heparin weight-ba se protocol Protocol Heparin Sodium (Po rcine) 5,000 unit 07/10/22 07:00 07/10/22 06:09 Heparin 5,000 Un it/Ml Inj 1 Ml SUBCUT 5,000 unit Q12H YASMANI Administration Hydralazine HCl 75 mg 07/09/22 09:00 07/10/22 08:44 Hydralazine 25 M g Tablet PO 75 mg TID YASMANI Administration Vancomycin HCl 750 mg/ Sodium 250 mls @ 250 mls /hr 07/10/22 10:00 07/10/22 10:05 Chloride IV Infused Q24H YASMANI Infusion Insulin Human Lisp ro 0 unit 07/09/22 06:17 07/10/22 12:04 Insulin Lispro 1 00 Unit/1 Ml SUBCUT 4 unit TIDWM YASMANI Administration Protocol Isosorbide Mononit rate 60 mg 07/09/22 09:00 07/10/22 08:44 Isosorbide [place] itrate Er 60 Mg Ta blet PO 60 mg BID YASMANI Administration Methimazole 5 mg 07/09/22 09:00 07/10/22 08:44 Methimazole 5 Mg Tablet PO 5 mg DAILY YASMANI Administration Nifedipine 60 mg 07/10/22 09:00 07/10/22 08:56 Nifedipine Er (2 4 Hr) 30 Mg Tablet PO 60 mg DAILY YASMANI Administration Pantoprazole Sodiu m 40 mg 07/10/22 09:00 07/10/22 08:[address] 40 Mg Tablet PO 40 mg DAILY YASMANI Administration Vancomycin HCl 125 mg 07/09/22 17:00 07/10/22 08:43 Vancomycin 1,000 Mg Oral Ivette (Btl) PO 125 mg QID YASMANI Administration Vitals/I&O/Wt Last Vital Signs Temp 97.9 F 07/10/22 11:00 Pulse 105 H 07/10/22 11:00 Resp 21 H 07/10/22 11:00 BP 160/79 07/10/22 11:00 Pulse Ox 97 07/10/22 07:52 O2 Del Method 07/10/22 11:00 O2 Flow Rate 3 07/09/22 08:59 FiO2 40 07/09/22 04:39 07/09/22 07/10/22 07/10/22 22:59 06:59 14:59 Intake Total 580 / 1164.2 610 / 610 Output Total 950 / 950 1350 / 2300 Balance -370 / 214.2 -1350 / -1135.8 610 / 610 Weight last 48 hrs Weight 64.954 kg Weight 65.317 kg Physical Exam Const: COMMON NORMALS: patient oriented x3 HENMT: COMMON NORMALS: normocephalic and atraumatic HEAD & SCALP: normocephalic and atraumatic Resp: EFFORT & INSPECTION: Yes symmetric chest movement OTHER: Minimal bilateral crackles in both lung manning right greater than left Cardio: COMMON NORMALS: regular rate, regular rhythm, S1 normal heart sound present, S2 normal heart sound present, No gallops present (Cardio), No murmurs present (Cardio), No rub (Cardio) and Peripheral pulses 2+ throughout RATE: regular rate RHYTHM: regular rhythm HEART SOUNDS: S1 normal heart sound present and S2 normal heart sound present PERIPHERAL PULSES: Peripheral pulses 2+ throughout GI: COMMON NORMALS: Normal to inspection, nondistended, normoactive bowel sounds present, Soft to palpation, non-tender, No hepatosplenomegaly present and no masses AUSCULTATION: Yes normoactive bowel sounds PALPATION: Yes Soft to palpation and Yes No hepatosplenomegaly present RECTAL EXAM: deferred Extremity: NARRATIVE EXTREMITY EXAM: 1+ bilateral lower extremity pitting edema Neuro: COMMON NORMALS: patient oriented x3 Urinary Catheter Management: Munson: Cath Placed During This Visit: yes Reason for Continuing Indwelling Catheter: Accurate Measurement of Urinary Output in Critically Ill Patients Urinary Catheter Date of Insertion: 07/08/22 Urinary Catheter Time of Insertion: 21:00 Data 07/10/22 02:56 07/10/22 02:56 Micro: Microbiology 07/08/22 20:21 Blood Culture - Preliminary Blood NEGATIVE TO DATE 07/08/22 20:40 Blood Culture - Preliminary Blood NEGATIVE TO DATE 07/08/22 21:05 C.difficile Toxin B Gene (PCR) - Final Stool - Stool Aspirate 07/08/22 23:09 MRSA Culture - Final Nose A&P Assessment and plan (1) Congestive heart failure: (2) CKD (chronic kidney disease) stage 3, GFR 30-59 ml/min: (3) Acute exacerbation of CHF (congestive heart failure): (4) Acute exacerbation of chronic obstructive airways disease: (5) Clostridioides difficile infection: Plan 71 year old female with past medical history of coronary artery disease S/P two previous bypass surgeries where three vessels were bypassed easch time. Her surgeries were in 1994 and in 2004. She had LOVETT to the LAD, saphenous venous graft to the diagonal branch of the left anterior descending and saphenous vein graft to the right coronary artery. She has also had multiple stents. Her last cardiac cath was at [facility] with Dr. Fiore in 2019 where only patent bypass was LOVETT-LAD. SVG to RCA and SVG to LCx were occluded. Medical management was recommended.? Hypertension diabetes, COPD not on home oxygen, hypothyroidism, heart failure with reduced ejection fraction, CKD stage III with baseline serum creatinine around 1.7-2, history of COVID-19 pneumonia. She was brought from home with chief complaint of acute onset of worsening shortness of breath. Currently she is being managed for: Assessment: Sepsis secondary to C. difficile infection as well as pneumonia: Patient qualifies for sepsis, she has tachycardia tachypnea, came in with elevated white count, elevated lactic acid ,has C. difficile infection, endorgan involvement in terms of pneumonia with requiring of BiPAP within supplemental oxygen. Patient is at risk for health care associated pneumonia though this term is no longer used, but given her recurrent hospitalization she is at risk for pneumonia. Blood culture:NTD MRSA PCR negative C. difficile PCR positive Sputum Gram stain and culture pending Urine culture Monitor x-ray chest Monitor ABG as needed Currently she is empirically on broad-spectrum antibiotics vancomycin meropenem She is on p.o. vancomycin 125 4 times daily will complete 10-day course Acute on chronic decompensated heart failure with reduced ejection fraction X-ray chest showing pulmonary vascular congestion Patient 2D echo done in the recent past: Results appreciated Currently she is on Lasix 40 IV 3 times daily, with good urine output Monitor intake output charting Monitor daily weight Fluid restriction 1000cc Monitor electrolytes Continue telemetry monitoring Continue BiPAP as needed Acute on chronic respiratory failure with hypoxia and hypercapnia: Secondary to decompensated heart failure pneumonia Elevated D-dimer VQ scan negative for PE Lower extremity Doppler negative for DVT He was initially on heparin drip which has been discontinued. DuoNebs Supplemental oxygen as needed Antibiotics as above Chronic stable angina: Continue Imdur, nitro as needed History of coronary artery disease : on Aspirin Plavix statin CKD stage III: Serum creatinine at baseline is around 1.7-2 Currently serum creatinine is at baseline Monitor BMP Avoid nephrotoxic's Monitor intake output charting Hypertension: Patient potentially has resistant hypertension. She has prior history of hypertensive emergency with recurrent flash pulmonary edema. Renal artery duplex: Continue hydralazine nifedipine Imdur metoprolol. Monitor blood pressure History of diabetes; On SSI, monitor fingerstick glucose. CODE STATUS: Full code DVT prophylaxis subcu heparin Attestations Medical Necessity Statement*: Patient needs to be in hospital for management of sepsis. Time Spent in Patient Care: Greater than 35 minutes The high probability of a clinically significant, sudden or life threatening deterioration of the patient's [] system(s) required my full and direct attention, intervention and personal management. The critical care time is as shown. This time is in addition to time spent performing any reported procedures but includes the following: [x] Data and vital sign review and interpretation [x] Patient assessment, examination and intervention [x] Documentation [x] Medication orders and management Critical Care Time: Critical Care Time (min): 40 Coding Level of Care Code Acute Code for Chg Fwd Diagnoses Congestive heart failure I50.9 CKD (chronic kidney disease) stage 3, GFR 30-59 ml/min N18.30 Acute exacerbation of CHF (congestive heart failure) I50.9 Acute exacerbation of chronic obstructive airways disease J44.1 Clostridioides difficile infection A49.8
[2022-07-10] MEDS: acetaminophen 500 mg Tablet PO ×2 (16:01→21:52)
[2022-07-10 16:57] LABS: Glucose Point of Care 209 mg/dL (70-110)
[2022-07-10] MEDS: venlafaxine ER (24HR) 150 mg Capsule PO (20:10)
[2022-07-10] MEDS: venlafaxine ER (24HR) 75 mg Capsule PO (20:10)
[2022-07-10] MEDS: atorvastatin 40 mg Tablet PO (20:11)
[2022-07-10 20:31] LABS: Glucose Point of Care 240 mg/dL (70-110)
[2022-07-10] MEDS: insulin glargine 100 units/1 mL 10 UNIT SUBCUT (20:49)
[2022-07-10] MEDS: tizanidine 4 mg Tablet PO (21:52)
[2022-07-11] VITALS (15 sets, daily range): BP systolic 119–147; BP diastolic 62–77; PULSE 78–104; RESP 13–18; TEMP 36.7–37.3; O2SAT 94–99
[2022-07-11] MEDS: ipratropium-albuterol 3 mL Neb INHALATION ×4 (01:16→19:28)
--- NOTE | 2022-07-11 01:22 | USR_ITS ---
PROCEDURE INFORMATION: Exam: US Duplex Artery and Vein of the Abdominal and/or Reproductive Organs, Complete Kidneys Exam date and time: 07/11/2022 1:29 AM Age: 71 years old Clinical indication: Condition or disease; Other: Hypertension; Additional info: [place] TECHNIQUE: Imaging protocol: Real-time duplex ultrasound scan of the arterial and venous flow with color Doppler flow and spectral waveform analysis with image documentation. Complete duplex exam focused on the kidneys. Duplex exam was performed to evaluate for vascular conditions. COMPARISON: US renal BI* [id number] 06/29/2022 4:31 PM FINDINGS: Right kidney: Normal. No hydronephrosis. No masses. There is a 1.4 cm cyst in the mid kidney. Right renal artery: Normal duplex of the renal artery. Duplex waveforms are within normal limits. No hemodynamically significant stenosis. Right interlobar/arcuate arteries: 0.85 superior, 0.66 mid and 0.57 inferior. Right renal vein: Patent Left kidney: Normal. No hydronephrosis. No masses. There is a 1.8 cm cyst in the mid kidney. Left renal artery: Normal duplex of the renal artery. Duplex waveforms are within normal limits. No hemodynamically significant stenosis. Left interlobar/arcuate arteries: 0.78 superior, 0.72 mid and 0.73 inferior Left renal vein: Patent US/CV renal doppler [id number] IMPRESSION: Normal kidneys. No hemodynamically significant stenosis.
[2022-07-11 04:26] LABS: Basophils % 0.3 %; Eosinophils # 0.2 10^3/uL (0.0-0.8); Eosinophils % 2.5 %; Hematocrit 33.1 % (37.0-47.0); Hemoglobin 10.7 g/dL (11.5-15.3); Lymphocytes # 1.5 10^3/uL (0.8-4.8); Lymphocytes % 22.4 %; Mean Corpuscular HGB Conc 32.3 g/dL (30.0-36.0); Mean Corpuscular Hemoglobin 30.4 pg (28.0-34.0); Mean Platelet Volume 10.6 fL (7.4-10.4); Monocytes # 0.5 10^3/uL (0.2-0.9); Monocytes % 6.9 %; Neutrophils # 4.53 10^3/uL (1.8-7.7); Neutrophils % 67.5 %; Nucleated Red Blood Cells % 0 %; Platelet Count 210 10^3/cmm (130-400); Red Blood Count 3.52 10^6/uL (4.1-5.3); Red Cell Distribution Width 14.8 % (12.1-15.1); White Blood Count 6.7 10^3/uL (4.0-10.0)
[2022-07-11 04:51] LABS: Alanine Aminotransferase 14 U/L (0-33); Albumin Level 2.9 g/dL (3.5-5.2); Alkaline Phosphatase 92 U/L (35-105); Aspartate Amino Transferase 18 U/L (0-32); Blood Urea Nitrogen 38 mg/dL (8-23); Calcium 8.8 mg/dL (8.5-10.5); Carbon Dioxide 26 mmol/L (22-29); Chloride 103 mmol/L (98-107); Globulin 2.5 g/dL (1.3-4.6); Glucose 209 mg/dL (65-115); Osmolality Calculated 305 mOsm/kg (285-295); Sodium 140 mmol/L (136-145); Total Bilirubin 0.2 mg/dL (0.15-1.2); Total Protein 5.4 g/dL (6.6-8.7)
[2022-07-11 05:01] LABS: Anion Gap 15.3 (5-19); Potassium 4.3 mmol/L (3.5-5.1)
[2022-07-11] MEDS: metoprolol succinate ER (24 HR) 50 mg Tablet PO (05:14)
[2022-07-11] MEDS: heparin 5,000 unit/mL INJ 1 mL 5000 UNIT SUBCUT (06:10)
[2022-07-11 06:26] LABS: Glucose Point of Care 213 mg/dL (70-110)
[2022-07-11] MEDS: FUROsemide 10 mg/mL SDV 10mL 60 MG IVP (08:37)
[2022-07-11] MEDS: NIFEdipine ER (24 hr) 30 mg Tablet 60 MG PO (08:38)
[2022-07-11] MEDS: insulin lispro 100 unit/1 mL SUBCUT ×2 (08:38→12:16)
[2022-07-11] MEDS: pantoprazole DR 40 mg Tablet PO (08:38)
[2022-07-11] MEDS: isosorbide mononitrate ER 60 mg Tablet PO ×2 (08:38→18:03)
[2022-07-11] MEDS: hyDRALAzine 25 mg Tablet 75 MG PO ×3 (08:38→21:42)
[2022-07-11] MEDS: clopidogrel 75 mg Tablet PO (08:38)
[2022-07-11] MEDS: methIMAzole 5 MG Tablet PO (08:38)
[2022-07-11] MEDS: aspirin 81 mg EC Tablet PO (08:38)
--- NOTE | 2022-07-11 09:57 | PC.SOCIAL ---
Pg 2 IMM Explained to pt Pg 2 IMM. No questions voiced. Provided pt a copy. Initialed, dated, & timed a copy & placed in chart.
[2022-07-11] MEDS: vancomycin 750 MG in sodium chloride 0.9% 250 ML 250 MG IV (09:58)
--- NOTE | 2022-07-11 11:00 | PM.PN ---
Subjective Subjective: Patient was seen and examined this morning she was complaining of bleeding from the sc heparin site,was little more active today, continue to have good urine output. Medications: Medication Review Details: Generic Name Dose Route Start Last Admin Trade Name Marisol PRN Reason Stop Dose Admin Acetaminophen 500 mg 07/08/22 22:42 07/10/22 21:52 Acetaminophen 50 0 Mg Tablet PO 500 mg Q4H PRN Administration fever Albuterol/Ipratrop ium 3 ml 07/09/22 20:00 07/11/22 08:11 Ipratropium-Albu terol 3 Ml Neb INHALATION 3 ml Q6H.RESP YASMANI Administration Aspirin 81 mg 07/09/22 09:00 07/11/22 08:38 Aspirin 81 Mg Ec Tablet PO 81 mg DAILY YASMANI Administration Atorvastatin Calci um 40 mg 07/09/22 21:00 07/10/22 20:11 Atorvastatin 40 Mg Tablet PO 40 mg BEDTIME YASMANI Administration Clopidogrel Bisulf ate 75 mg 07/09/22 09:00 07/11/22 08:38 Clopidogrel 75 M g Tablet PO 75 mg DAILY YASMANI Administration Furosemide 60 mg 07/11/22 08:00 07/11/22 08:37 Furosemide 10 Mg /Ml Sdv 10ml IVP 60 mg Q24H YASMANI Administration Heparin Sodium (Po rcine) 0 unit 07/09/22 04:02 07/09/22 05:17 Heparin 5,000 Un it/Ml Inj 1 Ml IV 3,300 unit PRN PRN Administration Heparin weight-ba se protocol Protocol Heparin Sodium (Po rcine) 5,000 unit 07/10/22 07:00 07/11/22 06:10 Heparin 5,000 Un it/Ml Inj 1 Ml SUBCUT 5,000 unit Q12H YASMANI Administration Hydralazine HCl 75 mg 07/09/22 09:00 07/11/22 08:38 Hydralazine 25 M g Tablet PO 75 mg TID YASMANI Administration Vancomycin HCl 750 mg/ Sodium 250 mls @ 250 mls /hr 07/10/22 10:00 07/11/22 09:58 Chloride IV 250 mls/hr Q24H YASMANI Administration Meropenem 250 mg/ Sodium 50 mls @ 100 mls/ hr 07/10/22 16:00 07/11/22 04:24 Chloride IV Infused Q12H YASMANI Infusion Insulin Glargine 10 unit 07/10/22 21:00 07/10/22 20:49 Insulin Glargine 100 Units/1 Ml SUBCUT 10 unit BEDTIME YASMANI Administration Insulin Human Lisp ro 0 unit 07/09/22 06:17 07/11/22 08:38 Insulin Lispro 1 00 Unit/1 Ml SUBCUT 6 unit TIDWM YASMANI Administration Protocol Isosorbide Mononit rate 60 mg 07/09/22 09:00 07/11/22 08:38 Isosorbide [place] itrate Er 60 Mg Ta blet PO 60 mg BID YASMANI Administration Methimazole 5 mg 07/09/22 09:00 07/11/22 08:38 Methimazole 5 Mg Tablet PO 5 mg DAILY YASMANI Administration Metoprolol Succina te 50 mg 07/11/22 06:00 07/11/22 05:14 Metoprolol Succi rosie Er (24 Hr) 50 Mg Tablet PO 50 mg QAM YASMANI Administration Nifedipine 60 mg 07/10/22 09:00 07/11/22 08:38 Nifedipine Er (2 4 Hr) 30 Mg Tablet PO 60 mg DAILY YASMANI Administration Pantoprazole Sodiu m 40 mg 07/10/22 09:00 07/11/22 08:[address] 40 Mg Tablet PO 40 mg DAILY YASMANI Administration Tizanidine HCl 4 mg 07/10/22 21:00 07/10/22 21:52 Tizanidine 4 Mg Tablet PO 4 mg BEDTIME YASMANI Administration Vancomycin HCl 125 mg 07/09/22 17:00 07/11/22 09:57 Vancomycin 1,000 Mg Oral Ivette (Btl) PO 125 mg QID YASMANI Administration Venlafaxine HCl 150 mg 07/10/22 21:00 07/10/22 20:10 Venlafaxine Er ( 24hr) 150 Mg Capsu le PO 150 mg BEDTIME YASMANI Administration Venlafaxine HCl 75 mg 07/10/22 21:00 07/10/22 20:10 Venlafaxine Er ( 24hr) 75 Mg Capsul e PO 75 mg BEDTIME YASMANI Administration Vitals/I&O/Wt Last Vital Signs Temp 98.7 F 07/11/22 10:32 Pulse 92 07/11/22 08:15 Resp 16 07/11/22 08:12 BP 119/65 07/11/22 03:43 Pulse Ox 99 07/11/22 10:32 O2 Del Method 07/11/22 08:12 O2 Flow Rate 3 07/09/22 08:59 FiO2 40 07/09/22 04:39 07/10/22 07/11/22 07/11/22 22:59 06:59 14:59 Intake Total 590 / 1200 50 / 1250 118 / 118 Output Total 3550 / 3550 600 / 4150 540 / 540 Balance -2960 / -2350 -550 / -2900 -422 / -422 Physical Exam Const: COMMON NORMALS: patient oriented x3 HENMT: COMMON NORMALS: normocephalic and atraumatic HEAD & SCALP: normocephalic and atraumatic Resp: EFFORT & INSPECTION: Yes symmetric chest movement OTHER: Minimal bilateral crackles in both lung manning right greater than left Cardio: COMMON NORMALS: regular rate, regular rhythm, S1 normal heart sound present, S2 normal heart sound present, No gallops present (Cardio), No murmurs present (Cardio), No rub (Cardio) and Peripheral pulses 2+ throughout RATE: regular rate RHYTHM: regular rhythm HEART SOUNDS: S1 normal heart sound present and S2 normal heart sound present PERIPHERAL PULSES: Peripheral pulses 2+ throughout GI: COMMON NORMALS: Normal to inspection, nondistended, normoactive bowel sounds present, Soft to palpation, non-tender, No hepatosplenomegaly present and no masses AUSCULTATION: Yes normoactive bowel sounds PALPATION: Yes Soft to palpation and Yes No hepatosplenomegaly present RECTAL EXAM: deferred Extremity: NARRATIVE EXTREMITY EXAM: 1+ bilateral lower extremity pitting edema Neuro: COMMON NORMALS: patient oriented x3 Urinary Catheter Management: Munson: Cath Placed During This Visit: yes Reason for Continuing Indwelling Catheter: Accurate Measurement of Urinary Output in Critically Ill Patients Urinary Catheter Date of Insertion: 07/08/22 Urinary Catheter Time of Insertion: 21:00 Data 07/11/22 03:15 07/11/22 03:15 A&P Assessment and plan (1) Congestive heart failure: (2) CKD (chronic kidney disease) stage 3, GFR 30-59 ml/min: (3) Acute exacerbation of CHF (congestive heart failure): (4) Acute exacerbation of chronic obstructive airways disease: (5) Clostridioides difficile infection: Plan 71 year old female with past medical history of coronary artery disease S/P two previous bypass surgeries where three vessels were bypassed easch time. Her surgeries were in 1994 and in 2004. She had LOVETT to the LAD, saphenous venous graft to the diagonal branch of the left anterior descending and saphenous vein graft to the right coronary artery. She has also had multiple stents. Her last cardiac cath was at [facility] with Dr. Fiore in 2019 where only patent bypass was LOVETT-LAD. SVG to RCA and SVG to LCx were occluded. Medical management was recommended.? Hypertension diabetes, COPD not on home oxygen, hypothyroidism, heart failure with reduced ejection fraction, CKD stage III with baseline serum creatinine around 1.7-2, history of COVID-19 pneumonia. She was brought from home with chief complaint of acute onset of worsening shortness of breath. Currently she is being managed for: Assessment: Sepsis secondary to C. difficile infection as well as pneumonia: Patient qualifies for sepsis, she has tachycardia tachypnea, came in with elevated white count, elevated lactic acid ,has C. difficile infection, endorgan involvement in terms of pneumonia with requiring of BiPAP within supplemental oxygen. Patient is at risk for health care associated pneumonia though this term is no longer used, but given her recurrent hospitalization she is at risk for pneumonia. Blood culture:NTD MRSA PCR negative C. difficile PCR positive Sputum Gram stain and culture pending Urine culture Monitor x-ray chest Monitor ABG as needed Currently she is empirically on broad-spectrum antibiotics vancomycin meropenem She is on p.o. vancomycin 125 4 times daily will complete 10-day course Acute on chronic decompensated heart failure with reduced ejection fraction X-ray chest showing pulmonary vascular congestion Patient 2D echo done in the recent past: Results appreciated Currently she is on Lasix 40 IV 3 times daily, with good urine output Monitor intake output charting Monitor daily weight Fluid restriction 1000cc Monitor electrolytes Continue telemetry monitoring Continue BiPAP as needed Acute on chronic respiratory failure with hypoxia and hypercapnia: Secondary to decompensated heart failure pneumonia Elevated D-dimer VQ scan negative for PE Lower extremity Doppler negative for DVT He was initially on heparin drip which has been discontinued. DuoNebs Supplemental oxygen as needed Antibiotics as above Chronic stable angina: Continue Imdur, nitro as needed History of coronary artery disease : on Aspirin Plavix statin CKD stage III: Serum creatinine at baseline is around 1.7-2 Currently serum creatinine is at baseline Monitor BMP Avoid nephrotoxic's Monitor intake output charting Hypertension: Patient potentially has resistant hypertension. She has prior history of hypertensive emergency with recurrent flash pulmonary edema. Renal artery duplex: Continue hydralazine nifedipine Imdur metoprolol. Monitor blood pressure History of diabetes; On SSI, monitor fingerstick glucose. CODE STATUS: Full code DVT prophylaxis subcu heparin Attestations Medical Necessity Statement*: Needs to be in hospital for the management of heart failure. Coding Level of Care Code Acute Code for Chg Fwd Exam Detailed Diagnoses Congestive heart failure I50.9 CKD (chronic kidney disease) stage 3, GFR 30-59 ml/min N18.30 Acute exacerbation of CHF (congestive heart failure) I50.9 Acute exacerbation of chronic obstructive airways disease J44.1 Clostridioides difficile infection A49.8
[2022-07-11 11:36] LABS: Glucose Point of Care 217 mg/dL (70-110)
[2022-07-11] MEDS: nystatin powder 15 gm Btl 1 APPLIC TOPICAL (12:16)
--- NOTE | 2022-07-11 13:39 | PC.ADMIT ---
[id number] Admission Note: The patient,Romi Yuan,71 y/o, was given written information regarding hospital policies, unit procedures and contact persons. Patient's smoking status: former smoker. Vital Signs - 8 hr 07/11/22 08:12 07/11/22 08:15 07/11/22 10:32 Temperature 98.7 F Pulse Rate 95 92 Respiratory Rate 16 Blood Pressure Pulse Oximetry 99 99 Oxygen Delivery Method Room Air 07/11/22 11:30 Temperature 98.7 F Pulse Rate 78 Respiratory Rate Blood Pressure 146/77 Pulse Oximetry 98 Oxygen Delivery Method Room Air
[2022-07-11 17:06] LABS: Glucose Point of Care 99 mg/dL (70-110)
[2022-07-11 20:44] LABS: Glucose Point of Care 261 mg/dL (70-110)
[2022-07-11] MEDS: acetaminophen 500 mg Tablet PO (21:42)
[2022-07-11] MEDS: venlafaxine ER (24HR) 75 mg Capsule PO (21:43)
[2022-07-11] MEDS: venlafaxine ER (24HR) 150 mg Capsule PO (21:43)
[2022-07-11] MEDS: tizanidine 4 mg Tablet PO (21:44)
[2022-07-11] MEDS: insulin glargine 100 units/1 mL 10 UNIT SUBCUT (21:44)
[2022-07-11] MEDS: atorvastatin 40 mg Tablet PO (21:44)
[2022-07-12] VITALS (14 sets, daily range): BP systolic 147–163; BP diastolic 79–92; PULSE 70–89; RESP 13–19; TEMP 36.6–37.2; O2SAT 93–98
[2022-07-12] MEDS: ipratropium-albuterol 3 mL Neb INHALATION ×4 (02:13→21:22)
--- NOTE | 2022-07-12 05:00 | XRR_ITS ---
PROCEDURE INFORMATION: Exam: XR Chest Exam date and time: 07/12/2022 5:16 AM Age: 71 years old Clinical indication: Shortness of breath; Prior surgery; Surgery date: 6+ months; Surgery type: Open heart x2; Additional info: SOB TECHNIQUE: Imaging protocol: Radiologic exam of the chest. Views: 1 view. COMPARISON: CR (CHEST, ) 07/08/2022 8:08 PM FINDINGS: Lungs: Unremarkable. No consolidation. Pleural spaces: Unremarkable. No pleural effusion. No pneumothorax. Heart/Mediastinum: Unremarkable. No cardiomegaly. Bones/joints: Unremarkable. XR/XR chest 1V portable [id number] IMPRESSION: No acute findings.
[2022-07-12 05:38] LABS: Basophils % 0.7 %; Eosinophils # 0.2 10^3/uL (0.0-0.8); Hematocrit 34.6 % (37.0-47.0); Hemoglobin 10.8 g/dL (11.5-15.3); Lymphocytes # 1.4 10^3/uL (0.8-4.8); Lymphocytes % 24.2 %; Mean Corpuscular HGB Conc 31.2 g/dL (30.0-36.0); Mean Corpuscular Hemoglobin 29.8 pg (28.0-34.0); Mean Corpuscular Volume 95.6 fl (81-99); Mean Platelet Volume 10.2 fL (7.4-10.4); Monocytes # 0.4 10^3/uL (0.2-0.9); Monocytes % 7.4 %; Neutrophils # 3.65 10^3/uL (1.8-7.7); Neutrophils % 63.2 %; Nucleated Red Blood Cells % 0 %; Platelet Count 213 10^3/cmm (130-400); Red Blood Count 3.62 10^6/uL (4.1-5.3); Red Cell Distribution Width 14.7 % (12.1-15.1); White Blood Count 5.8 10^3/uL (4.0-10.0)
[2022-07-12 05:55] LABS: Anion Gap 14.1 (5-19); Blood Urea Nitrogen 41 mg/dL (8-23); Calcium 9.3 mg/dL (8.5-10.5); Carbon Dioxide 26 mmol/L (22-29); Chloride 104 mmol/L (98-107); Glucose 176 mg/dL (65-115); Osmolality Calculated 304 mOsm/kg (285-295); Potassium 4.1 mmol/L (3.5-5.1); Sodium 140 mmol/L (136-145)
[2022-07-12] MEDS: enoxaparin 30 mg/0.3 mL Syringe SUBCUT (06:11)
[2022-07-12] MEDS: metoprolol succinate ER (24 HR) 50 mg Tablet PO (06:11)
[2022-07-12 06:24] LABS: Glucose Point of Care 178 mg/dL (70-110)
[2022-07-12] MEDS: insulin lispro 100 unit/1 mL SUBCUT ×2 (08:02→12:24)
[2022-07-12] MEDS: methIMAzole 5 MG Tablet PO (08:03)
[2022-07-12] MEDS: hyDRALAzine 25 mg Tablet 75 MG PO ×3 (08:03→21:03)
[2022-07-12] MEDS: clopidogrel 75 mg Tablet PO (08:04)
[2022-07-12] MEDS: isosorbide mononitrate ER 60 mg Tablet PO ×2 (08:04→17:57)
[2022-07-12] MEDS: pantoprazole DR 40 mg Tablet PO (08:04)
[2022-07-12] MEDS: FUROsemide 10 mg/mL SDV 10mL 60 MG IVP (08:04)
[2022-07-12] MEDS: aspirin 81 mg EC Tablet PO (08:06)
[2022-07-12] MEDS: NIFEdipine ER (24 hr) 30 mg Tablet 90 MG PO (08:48)
[2022-07-12] MEDS: nystatin powder 15 gm Btl 1 APPLIC TOPICAL ×2 (09:28→17:58)
[2022-07-12 09:44] LABS: Vancomycin Trough 13.2 ug/mL (10-15)
[2022-07-12 11:09] LABS: Glucose Point of Care 220 mg/dL (70-110)
[2022-07-12] MEDS: vancomycin 750 MG in sodium chloride 0.9% 250 ML 250 MG IV (11:23)
--- NOTE | 2022-07-12 11:39 | PM.PN ---
Subjective Subjective: Patient was seen and examined this morning, shortness of breath is improved lower extremity swelling has not resolved, she is more active. Medications: Medication Review Details: Generic Name Dose Route Start Last Admin Trade Name Marisol PRN Reason Stop Dose Admin Acetaminophen 500 mg 07/08/22 22:42 07/10/22 21:52 Acetaminophen 50 0 Mg Tablet PO 500 mg Q4H PRN Administration fever Albuterol/Ipratrop ium 3 ml 07/09/22 20:00 07/11/22 08:11 Ipratropium-Albu terol 3 Ml Neb INHALATION 3 ml Q6H.RESP YASMANI Administration Aspirin 81 mg 07/09/22 09:00 07/11/22 08:38 Aspirin 81 Mg Ec Tablet PO 81 mg DAILY YASMANI Administration Atorvastatin Calci um 40 mg 07/09/22 21:00 07/10/22 20:11 Atorvastatin 40 Mg Tablet PO 40 mg BEDTIME YASMANI Administration Clopidogrel Bisulf ate 75 mg 07/09/22 09:00 07/11/22 08:38 Clopidogrel 75 M g Tablet PO 75 mg DAILY YASMANI Administration Furosemide 60 mg 07/11/22 08:00 07/11/22 08:37 Furosemide 10 Mg /Ml Sdv 10ml IVP 60 mg Q24H YASMANI Administration Heparin Sodium (Po rcine) 0 unit 07/09/22 04:02 07/09/22 05:17 Heparin 5,000 Un it/Ml Inj 1 Ml IV 3,300 unit PRN PRN Administration Heparin weight-ba se protocol Protocol Heparin Sodium (Po rcine) 5,000 unit 07/10/22 07:00 07/11/22 06:10 Heparin 5,000 Un it/Ml Inj 1 Ml SUBCUT 5,000 unit Q12H YASMANI Administration Hydralazine HCl 75 mg 07/09/22 09:00 07/11/22 08:38 Hydralazine 25 M g Tablet PO 75 mg TID YASMANI Administration Vancomycin HCl 750 mg/ Sodium 250 mls @ 250 mls /hr 07/10/22 10:00 07/11/22 09:58 Chloride IV 250 mls/hr Q24H YASMANI Administration Meropenem 250 mg/ Sodium 50 mls @ 100 mls/ hr 07/10/22 16:00 07/11/22 04:24 Chloride IV Infused Q12H YASMANI Infusion Insulin Glargine 10 unit 07/10/22 21:00 07/10/22 20:49 Insulin Glargine 100 Units/1 Ml SUBCUT 10 unit BEDTIME YASMANI Administration Insulin Human Lisp ro 0 unit 07/09/22 06:17 07/11/22 08:38 Insulin Lispro 1 00 Unit/1 Ml SUBCUT 6 unit TIDWM YASMANI Administration Protocol Isosorbide Mononit rate 60 mg 07/09/22 09:00 07/11/22 08:38 Isosorbide [place] itrate Er 60 Mg Ta blet PO 60 mg BID YASMANI Administration Methimazole 5 mg 07/09/22 09:00 07/11/22 08:38 Methimazole 5 Mg Tablet PO 5 mg DAILY YASMANI Administration Metoprolol Succina te 50 mg 07/11/22 06:00 07/11/22 05:14 Metoprolol Succi rosie Er (24 Hr) 50 Mg Tablet PO 50 mg QAM YASMANI Administration Nifedipine 60 mg 07/10/22 09:00 07/11/22 08:38 Nifedipine Er (2 4 Hr) 30 Mg Tablet PO 60 mg DAILY YASMANI Administration Pantoprazole Sodiu m 40 mg 07/10/22 09:00 07/11/22 08:[address] 40 Mg Tablet PO 40 mg DAILY YASMANI Administration Tizanidine HCl 4 mg 07/10/22 21:00 07/10/22 21:52 Tizanidine 4 Mg Tablet PO 4 mg BEDTIME YSAMANI Administration Vancomycin HCl 125 mg 07/09/22 17:00 07/11/22 09:57 Vancomycin 1,000 Mg Oral Ivette (Btl) PO 125 mg QID YASMANI Administration Venlafaxine HCl 150 mg 07/10/22 21:00 07/10/22 20:10 Venlafaxine Er ( 24hr) 150 Mg Capsu le PO 150 mg BEDTIME YASMANI Administration Venlafaxine HCl 75 mg 07/10/22 21:00 07/10/22 20:10 Venlafaxine Er ( 24hr) 75 Mg Capsul e PO 75 mg BEDTIME YASMANI Administration Vitals/I&O/Wt Last Vital Signs Temp 98.0 F 07/12/22 07:42 Pulse 85 07/12/22 07:42 Resp 18 07/12/22 07:42 BP 163/80 07/12/22 07:42 Pulse Ox 96 02/05/23 07:42 O2 Del Method 07/12/22 07:42 O2 Flow Rate 3 07/09/22 08:59 FiO2 40 07/09/22 04:39 07/11/22 07/12/22 07/12/22 22:59 06:59 14:59 Intake Total 286 / 1132 50 / 1182 460 / 460 Output Total 900 / 1440 200 / 1640 Balance -614 / -308 -150 / -458 460 / 460 Physical Exam Const: COMMON NORMALS: patient oriented x3 HENMT: COMMON NORMALS: normocephalic and atraumatic HEAD & SCALP: normocephalic and atraumatic Resp: EFFORT & INSPECTION: Yes symmetric chest movement OTHER: Minimal bilateral crackles in both lung manning right greater than left Cardio: COMMON NORMALS: regular rate, regular rhythm, S1 normal heart sound present, S2 normal heart sound present, No gallops present (Cardio), No murmurs present (Cardio), No rub (Cardio) and Peripheral pulses 2+ throughout RATE: regular rate RHYTHM: regular rhythm HEART SOUNDS: S1 normal heart sound present and S2 normal heart sound present PERIPHERAL PULSES: Peripheral pulses 2+ throughout GI: COMMON NORMALS: Normal to inspection, nondistended, normoactive bowel sounds present, Soft to palpation, non-tender, No hepatosplenomegaly present and no masses AUSCULTATION: Yes normoactive bowel sounds PALPATION: Yes Soft to palpation and Yes No hepatosplenomegaly present RECTAL EXAM: deferred Extremity: NARRATIVE EXTREMITY EXAM: 1+ bilateral lower extremity pitting edema Neuro: COMMON NORMALS: patient oriented x3 Urinary Catheter Management: Munson: Cath Placed During This Visit: yes Reason for Continuing Indwelling Catheter: Accurate Measurement of Urinary Output in Critically Ill Patients Urinary Catheter Date of Insertion: 07/08/22 Urinary Catheter Time of Insertion: 21:00 Data 07/12/22 05:05 07/12/22 05:05 A&P Assessment and plan (1) Congestive heart failure: (2) CKD (chronic kidney disease) stage 3, GFR 30-59 ml/min: (3) Acute exacerbation of CHF (congestive heart failure): (4) Acute exacerbation of chronic obstructive airways disease: (5) Clostridioides difficile infection: Plan 71 year old female with past medical history of coronary artery disease S/P two previous bypass surgeries where three vessels were bypassed easch time. Her surgeries were in 1994 and in 2004. She had LOVETT to the LAD, saphenous venous graft to the diagonal branch of the left anterior descending and saphenous vein graft to the right coronary artery. She has also had multiple stents. Her last cardiac cath was at [facility] with Dr. Fiore in 2019 where only patent bypass was LOVETT-LAD. SVG to RCA and SVG to LCx were occluded. Medical management was recommended.? Hypertension diabetes, COPD not on home oxygen, hypothyroidism, heart failure with reduced ejection fraction, CKD stage III with baseline serum creatinine around 1.7-2, history of COVID-19 pneumonia. She was brought from home with chief complaint of acute onset of worsening shortness of breath. Currently she is being managed for: Assessment: Sepsis secondary to C. difficile infection as well as pneumonia: Patient qualifies for sepsis, she has tachycardia tachypnea, came in with elevated white count, elevated lactic acid ,has C. difficile infection, endorgan involvement in terms of pneumonia with requiring of BiPAP within supplemental oxygen. Patient is at risk for health care associated pneumonia though this term is no longer used, but given her recurrent hospitalization she is at risk for pneumonia. Blood culture:NTD MRSA PCR negative C. difficile PCR positive Sputum Gram stain and culture pending Urine culture Monitor x-ray chest Monitor ABG as needed Currently she is empirically on broad-spectrum antibiotics vancomycin and meropenem. Vancomycin was discontinued on:07/12/2022 She is on p.o. vancomycin 125 4 times daily will complete 10-day course Acute on chronic decompensated heart failure with reduced ejection fraction X-ray chest on admission was showing pulmonary vascular congestion Repeat chest x-ray done today has shown significant improvement in pulm vascular congestion Patient 2D echo done in the recent past: Results appreciated Currently she is on Lasix 60 IV daily, with good urine output Monitor intake output charting Monitor daily weight Fluid restriction 1000cc Monitor electrolytes Continue telemetry monitoring Continue BiPAP as needed Acute on chronic respiratory failure with hypoxia and hypercapnia: Secondary to decompensated heart failure pneumonia Elevated D-dimer VQ scan negative for PE Lower extremity Doppler negative for DVT She was initially on heparin drip which has been discontinued. DuoNebs Supplemental oxygen as needed Antibiotics as above Chronic stable angina: Continue Imdur, nitro as needed History of coronary artery disease : on Aspirin Plavix statin CKD stage III: Serum creatinine at baseline is around 1.7-2 Currently serum creatinine is at baseline Monitor BMP Avoid nephrotoxic's Monitor intake output charting Hypertension: Patient potentially has resistant hypertension. She has prior history of hypertensive emergency with recurrent flash pulmonary edema. Renal artery duplex: No renal artery stenosis noted Continue hydralazine nifedipine Imdur metoprolol. Monitor blood pressure History of diabetes; On SSI, monitor fingerstick glucose. CODE STATUS: Full code DVT prophylaxis subcu heparin Disposition: Home: Once patient is more clinically stable I am anticipating discharge in next 24 to 48 hours. Attestations Medical Necessity Statement*: Needs to be in hospital for management of sepsis Coding Level of Care Code Acute Code for Chg Fwd Diagnoses Congestive heart failure I50.9 CKD (chronic kidney disease) stage 3, GFR 30-59 ml/min N18.30 Acute exacerbation of CHF (congestive heart failure) I50.9 Acute exacerbation of chronic obstructive airways disease J44.1 Clostridioides difficile infection A49.8
[2022-07-12] MEDS: FUROsemide 10 mg/mL SDV 2mL 20 MG IVP (16:06)
[2022-07-12 17:24] LABS: Glucose Point of Care 101 mg/dL (70-110)
[2022-07-12 20:43] LABS: Glucose Point of Care 145 mg/dL (70-110)
[2022-07-12] MEDS: acetaminophen 500 mg Tablet PO (21:04)
[2022-07-12] MEDS: tizanidine 4 mg Tablet PO (21:04)
[2022-07-12] MEDS: venlafaxine ER (24HR) 150 mg Capsule PO (21:04)
[2022-07-12] MEDS: venlafaxine ER (24HR) 75 mg Capsule PO (21:04)
[2022-07-12] MEDS: atorvastatin 40 mg Tablet PO (21:04)
[2022-07-12] MEDS: insulin glargine 100 units/1 mL 10 UNIT SUBCUT (21:05)
[2022-07-13] VITALS (17 sets, daily range): BP systolic 102–152; BP diastolic 42–83; PULSE 67–92; RESP 12–17; TEMP 36.6–36.9; O2SAT 95–98
[2022-07-13 04:06] LABS: Basophils % 0.6 %; Eosinophils # 0.3 10^3/uL (0.0-0.8); Eosinophils % 5.1 %; Hematocrit 33.8 % (37.0-47.0); Hemoglobin 10.6 g/dL (11.5-15.3); Lymphocytes # 1.4 10^3/uL (0.8-4.8); Lymphocytes % 26.3 %; Mean Corpuscular HGB Conc 31.4 g/dL (30.0-36.0); Mean Corpuscular Hemoglobin 29.6 pg (28.0-34.0); Mean Corpuscular Volume 94.4 fl (81-99); Mean Platelet Volume 10.4 fL (7.4-10.4); Monocytes # 0.4 10^3/uL (0.2-0.9); Monocytes % 6.4 %; Neutrophils # 3.32 10^3/uL (1.8-7.7); Nucleated Red Blood Cells % 0 %; Platelet Count 200 10^3/cmm (130-400); Red Blood Count 3.58 10^6/uL (4.1-5.3); Red Cell Distribution Width 14.6 % (12.1-15.1); White Blood Count 5.4 10^3/uL (4.0-10.0)
[2022-07-13 04:27] LABS: Anion Gap 11.9 (5-19); Blood Urea Nitrogen 36 mg/dL (8-23); Calcium 8.9 mg/dL (8.5-10.5); Carbon Dioxide 29 mmol/L (22-29); Chloride 101 mmol/L (98-107); Glucose 223 mg/dL (65-115); Osmolality Calculated 301 mOsm/kg (285-295); Potassium 3.9 mmol/L (3.5-5.1); Sodium 138 mmol/L (136-145)
[2022-07-13] MEDS: enoxaparin 30 mg/0.3 mL Syringe SUBCUT (06:11)
[2022-07-13] MEDS: levoFLOXacin 750 mg Tablet PO (06:11)
[2022-07-13] MEDS: metoprolol succinate ER (24 HR) 50 mg Tablet PO (06:11)
[2022-07-13 06:42] LABS: Glucose Point of Care 198 mg/dL (70-110)
[2022-07-13] MEDS: ipratropium-albuterol 3 mL Neb INHALATION ×3 (07:47→20:44)
[2022-07-13] MEDS: NIFEdipine ER (24 hr) 30 mg Tablet 90 MG PO (08:15)
[2022-07-13] MEDS: methIMAzole 5 MG Tablet PO (08:16)
[2022-07-13] MEDS: clopidogrel 75 mg Tablet PO (08:16)
[2022-07-13] MEDS: pantoprazole DR 40 mg Tablet PO (08:16)
[2022-07-13] MEDS: aspirin 81 mg EC Tablet PO (08:16)
[2022-07-13] MEDS: hyDRALAzine 25 mg Tablet 75 MG PO ×3 (08:16→21:31)
[2022-07-13] MEDS: isosorbide mononitrate ER 60 mg Tablet PO ×2 (08:16→17:20)
[2022-07-13] MEDS: insulin lispro 100 unit/1 mL SUBCUT ×2 (08:16→17:20)
[2022-07-13] MEDS: FUROsemide 10 mg/mL SDV 10mL 60 MG IVP (08:17)
[2022-07-13] MEDS: nystatin powder 15 gm Btl 1 APPLIC TOPICAL (08:18)
[2022-07-13 11:13] LABS: Glucose Point of Care 135 mg/dL (70-110)
--- NOTE | 2022-07-13 11:40 | PC.NURSE ---
Orders to discontinue reyes catheter.
--- NOTE | 2022-07-13 13:09 | P.PN_ITS ---
Subjective Subjective: Hospital course, labs appreciated. On examination patient lying comfortably in bed. Denies any nausea, vomiting, headache. Urine output of around 2.3 L in last 24 hours. Munson placed We discussed in detail regarding reasons for recurrent admissions. Patient states she was not aware of restriction on fluid intake daily and is being strict with fluid restrictions for now. We discussed for possible discharge to SNF for proper monitoring for 2 weeks. Patient declined and would want to go to possibly get home health. Otherwise has remained hemodynamically stable and afebrile. Vitals/I&O/Wt Last Vital Signs Temp 98.0 F 07/13/22 07:27 Pulse 83 07/13/22 07:55 Resp 16 07/13/22 07:46 BP 151/82 07/13/22 07:26 Pulse Ox 95 07/13/22 07:46 O2 Del Method 07/13/22 07:46 O2 Flow Rate 3 07/09/22 08:59 FiO2 40 07/09/22 04:39 07/12/22 07/13/22 07/13/22 22:59 06:59 14:59 Intake Total 960 / 960 Output Total 650 / 1400 500 / 1900 375 / 375 Balance -650 / -210 -500 / -710 585 / 585 Physical Exam Const: COMMON NORMALS: patient oriented x3 HENMT: COMMON NORMALS: normocephalic and atraumatic HEAD & SCALP: normocephalic and atraumatic Resp: EFFORT & INSPECTION: Yes symmetric chest movement OTHER: Minimal bilateral crackles in both lung manning right greater than left Cardio: COMMON NORMALS: regular rate, regular rhythm, S1 normal heart sound present, S2 normal heart sound present, No gallops present (Cardio), No murmurs present (Cardio), No rub (Cardio) and Peripheral pulses 2+ throughout RATE: regular rate RHYTHM: regular rhythm HEART SOUNDS: S1 normal heart sound present and S2 normal heart sound present PERIPHERAL PULSES: Peripheral pulses 2+ throughout GI: COMMON NORMALS: Normal to inspection, nondistended, normoactive bowel sounds present, Soft to palpation, non-tender, No hepatosplenomegaly present and no masses AUSCULTATION: Yes normoactive bowel sounds PALPATION: Yes Soft to palpation and Yes No hepatosplenomegaly present RECTAL EXAM: deferred Extremity: NARRATIVE EXTREMITY EXAM: 1+ bilateral lower extremity pitting edema Neuro: COMMON NORMALS: patient oriented x3 Urinary Catheter Management: Munson: Cath Placed During This Visit: yes Reason for Continuing Indwelling Catheter: Accurate Measurement of Urinary Output in Critically Ill Patients Urinary Catheter Date of Insertion: 07/08/22 Urinary Catheter Time of Insertion: 21:00 Data 07/13/22 03:10 07/13/22 03:10 A&P Assessment and plan (1) Congestive heart failure: Qualifiers: Heart failure type: combined systolic and diastolic Heart failure chronicity: acute on chronic Qualified Code(s): I50.43 - Acute on chronic combined systolic (congestive) and diastolic (congestive) heart failure (2) CKD (chronic kidney disease) stage 3, GFR 30-59 ml/min: (3) Acute exacerbation of CHF (congestive heart failure): (4) Acute exacerbation of chronic obstructive airways disease: (5) Clostridioides difficile infection: Plan 71 year old female with past medical history of coronary artery disease S/P two previous bypass surgeries where three vessels were bypassed each time, multiple stents, cardiac catheterization within the last 1 month showing patent stents, recurrent admissions with congestive heart failure, CKD with baseline creatinine of around 1.7-2, COPD not on home oxygen. She was brought from home with chief complaint of acute onset of worsening shortness of breath. Currently she is being managed for: Assessment: Sepsis secondary to C. difficile infection as well as pneumonia: Present on admission. Patient qualifies for sepsis, she has tachycardia tachypnea, came in with e levated white count, elevated lactic acid ,has C. difficile infection, endorgan involvement in terms of pneumonia with requiring of BiPAP within supplemental oxygen. Patient is at risk for health care associated pneumonia though this term is no longer used, but given her recurrent hospitalization she is at risk for pneumonia. Blood culture:NTD MRSA PCR negative Continue with oral vancomycin 125 4 times daily will complete 14 day course. Acute on chronic decompensated heart failure with reduced ejection fraction: Resolving. Continue with IV Lasix 60 mg IV daily. We will plan to discharge on higher dose of Lasix and possibly with metaxalone. Strict input output charting. Daily weights. Fluid restriction up to 1 to 1.5 L. DC Munson. Oxygen supplementation keeping saturation over 88%. Acute on chronic respiratory failure with hypoxia and hypercapnia: Secondary to decompensated heart failure, pneumonia since admission has been ruled out. Stop Levaquin. Elevated D-dimer, VQ scan negative for PE, Lower extremity Doppler negative for DVT DuoNebs every 6 hours, budesonide twice daily. Chronic stable angina: Recent angiogram showing patent stents Continue Imdur, nitro as needed History of coronary artery disease : on Aspirin Plavix statin CKD stage III: Serum creatinine at baseline is around 1.7-2 Currently serum creatinine is at baseline Monitor BMP Avoid nephrotoxic's Monitor intake output charting Hypertension: Blood pressure is better controlled. Renal artery duplex: No renal artery stenosis noted Continue home dose of hydralazine, nifedipine, metoprolol succinate, Imdur. History of diabetes; On SSI, monitor fingerstick glucose. CODE STATUS: Full code DVT prophylaxis subcu heparin Discharge planning: Patient did admitted multiple times within the last couple of months for exacerbation of congestive heart failure. Discussed in detail with patient for possible discharge to SNF for closer monitoring. Patient states she has all the tools she needs to take care of herself at home. She states she was not aware of fluid restrictions in the past but is now aware of the same and cannot continue doing the same at home. Plan to discharge home within next 24 hours with home health. Case management alerted. Attestations Medical Necessity Statement*: Requires further hospitalization for management of acute on chronic hypoxic and hypercapnic respiratory failure in the setting of congestive heart failure, COPD exacerbation, C. difficile Coding Level of Care Code 97986 Moderate MDM includes risk/complexity, reviewing previous or external records, reviewing test results, ordering lab/other test(s), independently interpretating test(s) (not separately recorded) and discussion of management or test(s) w/ other healthcare professional and Moderate Time for a total of 35 minutes, includes reviewing past or interval history, examining/interviewing patient, placing orders, counseling patient/family/other support, updating patient/family/other support, discussing plan of care with staff, communicating with other healthcare providers, documenting encounter and coordinating care Diagnoses Congestive heart failure I50.43 Heart failure type: combined systolic and diastolic Heart failure chronicity: acute on chronic CKD (chronic kidney disease) stage 3, GFR 30-59 ml/min N18.30 Acute exacerbation of CHF (congestive heart failure) I50.9 Acute exacerbation of chronic obstructive airways disease J44.1 Clostridioides difficile infection A49.8
[2022-07-13 16:45] LABS: Glucose Point of Care 173 mg/dL (70-110)
[2022-07-13 20:31] LABS: Glucose Point of Care 144 mg/dL (70-110)
[2022-07-13] MEDS: tizanidine 4 mg Tablet PO (21:30)
[2022-07-13] MEDS: atorvastatin 40 mg Tablet PO (21:30)
[2022-07-13] MEDS: venlafaxine ER (24HR) 150 mg Capsule PO (21:31)
[2022-07-13] MEDS: venlafaxine ER (24HR) 75 mg Capsule PO (21:31)
[2022-07-13] MEDS: insulin glargine 100 units/1 mL 10 UNIT SUBCUT (21:32)
[2022-07-13] MEDS: acetaminophen 500 mg Tablet PO (21:38)
[2022-07-14] VITALS (9 sets, daily range): BP systolic 121–140; BP diastolic 57–86; PULSE 68–90; RESP 16–20; TEMP 36.6–36.7; O2SAT 92–100
[2022-07-14 05:12] LABS: Basophils % 0.2 %; Eosinophils # 0.3 10^3/uL (0.0-0.8); Hematocrit 31.9 % (37.0-47.0); Hemoglobin 10.5 g/dL (11.5-15.3); Lymphocytes # 1.4 10^3/uL (0.8-4.8); Lymphocytes % 24.6 %; Mean Corpuscular HGB Conc 32.9 g/dL (30.0-36.0); Mean Corpuscular Hemoglobin 30.6 pg (28.0-34.0); Mean Platelet Volume 10.3 fL (7.4-10.4); Monocytes # 0.5 10^3/uL (0.2-0.9); Monocytes % 8.6 %; Neutrophils # 3.43 10^3/uL (1.8-7.7); Neutrophils % 61.2 %; Nucleated Red Blood Cells % 0 %; Platelet Count 180 10^3/cmm (130-400); Red Blood Count 3.43 10^6/uL (4.1-5.3); Red Cell Distribution Width 14.8 % (12.1-15.1); White Blood Count 5.6 10^3/uL (4.0-10.0)
[2022-07-14 05:30] LABS: Magnesium 1.9 mg/dL (1.7-2.3)
[2022-07-14 05:31] LABS: Alanine Aminotransferase 15 U/L (0-33); Albumin Level 3.1 g/dL (3.5-5.2); Alkaline Phosphatase 91 U/L (35-105); Aspartate Amino Transferase 22 U/L (0-32); Blood Urea Nitrogen 44 mg/dL (8-23); Calcium 8.6 mg/dL (8.5-10.5); Carbon Dioxide 25 mmol/L (22-29); Chloride 102 mmol/L (98-107); Globulin 2.3 g/dL (1.3-4.6); Glucose 147 mg/dL (65-115); Osmolality Calculated 300 mOsm/kg (285-295); Sodium 138 mmol/L (136-145); Total Bilirubin 0.3 mg/dL (0.15-1.2); Total Protein 5.4 g/dL (6.6-8.7)
[2022-07-14] MEDS: metoprolol succinate ER (24 HR) 50 mg Tablet PO (05:35)
[2022-07-14] MEDS: enoxaparin 30 mg/0.3 mL Syringe SUBCUT (05:35)
[2022-07-14 06:33] LABS: Glucose Point of Care 138 mg/dL (70-110)
[2022-07-14] MEDS: FUROsemide 10 mg/mL SDV 10mL 60 MG IVP (08:27)
[2022-07-14] MEDS: clopidogrel 75 mg Tablet PO (08:28)
[2022-07-14] MEDS: aspirin 81 mg EC Tablet PO (08:28)
[2022-07-14] MEDS: nystatin powder 15 gm Btl 1 APPLIC TOPICAL (08:28)
[2022-07-14] MEDS: hyDRALAzine 25 mg Tablet 75 MG PO (08:28)
[2022-07-14] MEDS: isosorbide mononitrate ER 60 mg Tablet PO (08:28)
[2022-07-14] MEDS: pantoprazole DR 40 mg Tablet PO (08:28)
[2022-07-14] MEDS: methIMAzole 5 MG Tablet PO (08:28)
[2022-07-14] MEDS: NIFEdipine ER (24 hr) 30 mg Tablet 90 MG PO (08:28)
[2022-07-14] MEDS: ipratropium-albuterol 3 mL Neb INHALATION (08:35)
[2022-07-14 11:34] LABS: Glucose Point of Care 259 mg/dL (70-110)
[2022-07-14] MEDS: insulin lispro 100 unit/1 mL SUBCUT (11:48)
--- NOTE | 2022-07-14 12:56 | PM.DCS ---
Discharge Providers Date of Admission: 07/08/22 21:31 Date of Discharge: July 14, 2022 Attending Provider at Admission: Smiley Hanson MD Attending Provider at Discharge: Moe Butler MD Primary Care Provider: Jocelyne Kirby Diagnoses at Discharge Discharge Diagnosis (1) Congestive heart failure: Status: Acute Qualifiers: Heart failure chronicity: acute on chronic Heart failure type: combined systolic and diastolic Qualified Code(s): I50.43 - Acute on chronic combined systolic (congestive) and diastolic (congestive) heart failure (2) CKD (chronic kidney disease) stage 3, GFR 30-59 ml/min: Status: Acute (3) Acute exacerbation of CHF (congestive heart failure): Status: Acute (4) Acute exacerbation of chronic obstructive airways disease: Status: Acute (5) Clostridioides difficile infection: Status: Acute Reason for Visit Reason for Visit: RESP. DISTRESS Brief History: Romi Yuan is a 71 year old female with past medical history of CAD s/p 2 CABG surgeries last one was in 2004, CKD, peripheral and renal stents, dyslipidemia, hypertensive urgency, hypothyroidism, recent COVID-19 who presented to the hospital on June 24 for shortness of breath.? Last cardiac catheterization in 2019 showed patent LOVETT to LAD.? SVG to RCA and SVG to diagonal artery were occluded.? This will be her fifth admission within the last 1 month with recurrent pulmonary edema.? She has presented this time to the hospital with worsening shortness of breath. Patient is stating that she is using oxygen on as-needed basis, lives alone, she is denying fever, productive cough, stating that she is compliant with her medications, today she started getting short of breath on exertion.? Around 3 PM she was also getting chest pain which she describes as pressure-like sensation which lasted until she took nitroglycerin.? She denies syncopal event, nausea, vomiting.? Patient is stating that she could not finish sentences, she was very short of breath she overworked herself.? She never took any steroids at home In the ER she was diagnosed with pulm edema, CHF exacerbation, high lactic acid due to increased work of breathing, significant leukocytosis without any febrile events, she was given broad-spectrum antibiotics however chest x-ray is consistent with pulm edema. Hospital Course Hospital Course Patient was admitted to hospital further evaluation and management of shortness of breath secondary to flash pulmonary edema. She was started on aggressive IV diuresis. She responded well to the treatment and has been at her baseline hemodynamics and room air for last 2 days. She is able to ambulate safely during hospitalization. Her creatinine has remained stable around 2. During hospitalization she did have few episodes of diarrhea for which stool studies were checked and she was found to be positive for C. difficile. She was started on oral vancomycin which she is supposed to finish in 10 days. Physical Exam Const: COMMON NORMALS: patient oriented x3 HENMT: COMMON NORMALS: normocephalic and atraumatic HEAD & SCALP: normocephalic and atraumatic Resp: EFFORT & INSPECTION: Yes symmetric chest movement OTHER: Minimal bilateral crackles in both lung manning right greater than left Cardio: COMMON NORMALS: regular rate, regular rhythm, S1 normal heart sound present, S2 normal heart sound present, No gallops present (Cardio), No murmurs present (Cardio), No rub (Cardio) and Peripheral pulses 2+ throughout RATE: regular rate RHYTHM: regular rhythm HEART SOUNDS: S1 normal heart sound present and S2 normal heart sound present PERIPHERAL PULSES: Peripheral pulses 2+ throughout GI: COMMON NORMALS: Normal to inspection, nondistended, normoactive bowel sounds present, Soft to palpation, non-tender, No hepatosplenomegaly present and no masses AUSCULTATION: Yes normoactive bowel sounds PALPATION: Yes Soft to palpation and Yes No hepatosplenomegaly present RECTAL EXAM: deferred Extremity: NARRATIVE EXTREMITY EXAM: 1+ bilateral lower extremity pitting edema Neuro: COMMON NORMALS: patient oriented x3 Urinary Catheter Management: Munson: Cath Placed During This Visit: yes, but has since been removed by the nurse Reason for Continuing Indwelling Catheter: Other Urinary Catheter Date of Insertion: 07/08/22 Urinary Catheter Time of Insertion: 21:00 Date Urinary Catheter Removed: 07/13/22 Time Urinary Catheter Discontinued: 13:00 Discharge Data Studies Completed and Pending Completed Studies During Hospitalization Category Date Time Status XR chest 1V portable [id number] Routine Exams 07/12/22 05:00 Completed XR chest 1V portable [id number] Stat Exams 07/08/22 19:56 Completed NM pul vent and perfus* [id number] Routine Nuc Med 07/09/22 04:00 Completed US renal doppler [CV renal doppler 20027] Routine Ultrasound 07/11/22 01:22 Completed US venous duplex lower extremity bilat [CV venous Ultrasound 07/09/22 12:17 [place] [id number]] Routine Pending at discharge Category Date Time Status Arterial Blood Gas W/Coox Stat Lab 07/08/22 22:00 Results Sputum Culture and Gram Stain Routine Lab 07/09/22 13:09 Uncollected VBG [Venous Blood Gas] Stat Lab 07/08/22 22:00 Results Radiology Impressions Pulmonary Perfusion Imaging 07/09/22 04:00 IMPRESSION: 1. Low probability for pulmonary embolus. Renal Ultrasound 07/11/22 01:22 IMPRESSION: Normal kidneys. No hemodynamically significant stenosis. Chest X-Ray 07/12/22 05:00 IMPRESSION: No acute findings. Laboratory Results WBC 5.6 10^3/uL (4.0-10.0) 07/14/22 04:43 Corrected WBC Cancelled 07/09/22 02:11 RBC 3.43 10^6/uL (4.1-5.3) L 07/14/22 04:43 Hgb 10.5 g/dL (11.5-15.3) L 07/14/22 04:43 Hct 31.9 % (37.0-47.0) L 07/14/22 04:43 MCV 93.0 fl (81-99) 07/14/22 04:43 MCH 30.6 pg (28.0-34.0) 07/14/22 04:43 MCHC 32.9 g/dL (30.0-36.0) 07/14/22 04:43 RDW 14.8 % (12.1-15.1) 07/14/22 04:43 Plt Count 180 10^3/cmm (130-400) 07/14/22 04:43 MPV 10.3 fL (7.4-10.4) 07/14/22 04:43 Gran % Cancelled 07/09/22 02:11 Neut % (Auto) 61.2 % 07/14/22 04:43 Lymph % (Auto) 24.6 % 07/14/22 04:43 [place] % (Auto) 8.6 % 07/14/22 04:43 Eos % (Auto) 5.0 % 07/14/22 04:43 Baso % (Auto) 0.2 % 07/14/22 04:43 Neut # (Auto) 3.43 10^3/uL (1.8-7.7) 07/14/22 04:43 Lymph # (Auto) 1.4 10^3/uL (0.8-4.8) 07/14/22 04:43 [place] # (Auto) 0.5 10^3/uL (0.2-0.9) 07/14/22 04:43 Eos # (Auto) 0.3 10^3/uL (0.0-0.8) 07/14/22 04:43 Baso # (Auto) 0.0 10^3/uL (0.0-0.1) 07/14/22 04:43 Absolute Gran (auto) Cancelled 07/09/22 02:11 Nucleated RBC % (auto) 0 % 07/14/22 04:43 Nucleated RBCs # 0.0 /100WBC 07/14/22 04:43 APTT > 250.0 SECONDS (23.9-36.7) H* D 07/09/22 10:50 D-Dimer > 20.00 ug/mIFEU (0-0.59) H 07/09/22 02:11 Specimen Type Venous 07/08/22 22:00 ABG pH 7.28 (7.35-7.45) L 07/08/22 22:00 ABG pCO2 57.2 mmHg (35-45) H 07/08/22 22:00 ABG pO2 24.0 mmHg (80.0-100.0) L* 07/08/22 22:00 ABG HCO3 26.7 mmol/L (22-26) H 07/08/22 22:00 ABG Base Excess -0.8 mmol/L (-2.0-2.0) 07/08/22 22:00 Rene Test Pos 07/08/22 22:00 VBG pH 7.28 (7.32-7.42) L 07/08/22 22:00 VBG pCO2 57.2 mmHg (41-51) H 07/08/22 22:00 VBG pO2 24.0 mmHg (25-40) L 07/08/22 22:00 VBG HCO3 26.7 mmol/L (24-28) 07/08/22 22:00 VBG Base Excess -0.8 mmol/L (-3.0-3.0) 07/08/22 22:00 VBG Hematocrit 35.2 % (37-47) L 07/08/22 22:00 Hematocrit 35.2 % (37-47) L 07/08/22 22:00 Hgb O2 Saturation 36.0 % (95-100) L 07/08/22 22:00 Carboxyhemoglobin 1.5 %THgb (0.4-20.1) 07/08/22 22:00 Methemoglobin 1.0 % (0.4-1.5) 07/08/22 22:00 Total Hemoglobin 11.5 g/dL (12-16) L 07/08/22 22:00 O2 Delivery Device Bipap 07/08/22 22:00 FiO2 100.0 % 07/08/22 22:00 PEEP 6.0 cmH20 07/08/22 22:00 Hourly Team Members ID [email or web address] 07/08/22 22:00 Sodium 138 mmol/L (136-145) 07/14/22 04:43 Potassium 4.0 mmol/L (3.5-5.1) 07/14/22 04:43 Chloride 102 mmol/L (98-107) 07/14/22 04:43 Carbon Dioxide 25 mmol/L (22-29) 07/14/22 04:43 Anion Gap 15.0 (5-19) 07/14/22 04:43 BUN 44 mg/dL (8-23) H 07/14/22 04:43 Creatinine 2.1 mg/dL (0.5-0.9) H 07/14/22 04:43 GFR Calculation Not Reportable 07/14/22 04:43 Glucose 147 mg/dL (65-115) H 07/14/22 04:43 POC Glucose 259 mg/dL (70-110) H 07/14/22 11:24 Calculated Osmolality 300 mOsm/kg (285-295) H 07/14/22 04:43 Lactic Acid 4.1 mmol/L (0.5-2.2) H* 07/08/22 20:01 Lactic Acid (Sepsis) 1.5 mmol/L (0.5-2.2) 07/08/22 23:07 Calcium 8.6 mg/dL (8.5-10.5) 07/14/22 04:43 Phosphorus 3.4 mg/dL (2.5-4.5) 07/09/22 02:11 Magnesium 1.9 mg/dL (1.7-2.3) 07/14/22 04:43 Total Bilirubin 0.3 mg/dL (0.15-1.2) 07/14/22 04:43 AST 22 U/L (0-32) 07/14/22 04:43 ALT 15 U/L (0-33) 07/14/22 04:43 Alkaline Phosphatase 91 U/L (35-105) 07/14/22 04:43 Troponin T Baseline 95 ng/L (0-10) H 07/08/22 19:49 Troponin T 120 Minute 94.03 ng/L (0-10) H 07/08/22 21:50 Delta Troponin T -0.97 ABS# (0-10) L 07/08/22 21:50 Troponin T Hi Sens 6Hr 85.04 ng/L (0-10) H 07/09/22 02:11 Troponin T Hi Sens 6Hr Delta -9.96 ng/L (0-12) L 07/09/22 02:11 C-Reactive Protein 16.5 mg/L (0.0-4.9) H 07/09/22 02:11 NT-Pro-B Natriuret Pep 65615 pg/mL (0-125) H 07/08/22 19:49 Total Protein 5.4 g/dL (6.6-8.7) L 07/14/22 04:43 Albumin 3.1 g/dL (3.5-5.2) L 07/14/22 04:43 Globulin 2.3 g/dL (1.3-4.6) 07/14/22 04:43 Procalcitonin 0.30 ng/mL (0-0.5) 07/08/22 21:50 Urine Color Yellow (Yellow) 07/08/22 21:10 Urine Appearance Clear (CLEAR) 07/08/22 21:10 Urine pH 6 (5-7) 07/08/22 21:10 Ur Specific [place] 1.020 (1.005-1.030) 07/08/22 21:10 Urine Protein 3+ (Negative) H 07/08/22 21:10 Urine Glucose (UA) 4+ (Normal) H 07/08/22 21:10 Urine Ketones Negative (Negative) 07/08/22 21:10 Urine Blood 2+ (Negative) H 07/08/22 21:10 Urine Nitrate Negative (Negative) 07/08/22 21:10 Urine Bilirubin Neg (Negative) 07/08/22 21:10 Urine Urobilinogen Norm mg/dL (Negative) 07/08/22 21:10 Ur Leukocyte Esterase Negative (Negative) 07/08/22 21:10 Urine RBC 5-10 /hpf (0-2) H 07/08/22 21:10 Urine WBC 0-4 /hpf (0-5) H 07/08/22 21:10 Ur Squamous Epith Cells 15-25 /hpf (0-5) H 07/08/22 21:10 Ur Transition Epith Cell 5-10 /hpf 07/08/22 21:10 Ur Renal Epithelial Cell 5-10 /hpf 07/08/22 21:10 Amorphous Sediment 1+ /hpf 07/08/22 21:10 Urine Bacteria Trace /hpf (NONE) 07/08/22 21:10 Hyaline Casts 5-10 /lpf H 07/08/22 21:10 Fine Granular Casts 0-5 /lpf 07/08/22 21:10 Coarse Granular Casts 0-2 /lpf 07/08/22 21:10 Vancomycin Trough 13.2 ug/mL (10-15) 07/12/22 09:08 Influenza Type A Ag negative (Negative) 07/08/22 22:00 Influenza Type B Ag negative (Negative) 07/08/22 22:00 SARS-CoV-2 Ag (Rapid) negative (Negative) 07/08/22 22:00 Vitals Last Vital Signs Temp 97.8 F 07/14/22 12:00 Pulse 83 07/14/22 12:00 Resp 18 07/14/22 12:00 BP 136/71 07/14/22 12:00 Pulse Ox 98 07/14/22 12:00 O2 Del Method 07/14/22 12:00 O2 Flow Rate 3 07/09/22 08:59 FiO2 40 07/09/22 04:39 Discharge Plan Discharge Patient Disposition: Home Health Service Condition: Stable Prescriptions: New furosemide [Lasix] 40 mg tablet 40 mg PO QPM Qty: 30 0RF vancomycin [Vancocin] 125 mg capsule 125 mg PO Q6H 10 Days Qty: 40 0RF Continued Anoro Ellipta 62.5-25 mcg/actuation blister with device 1 inh INHALATION DAILY isosorbide mononitrate 60 mg tablet extended release 24 hr 60 mg PO BID venlafaxine [Effexor XR] 150 mg capsule,extended release 24hr 150 mg PO BEDTIME Rx Instructions: TAKE WITH 75 MG methimazole 5 mg tablet 5 mg PO DAILY Qty: 30 3RF (DME) Accu-Chek Ana M Plus test strp Strip See Rx Instructions .ROUTE .MEDSUPPLY Qty: 120 3RF Rx Instructions: check blood glucose four times a day nifedipine 30 mg tablet extended release 24hr 30 mg PO DAILY tizanidine 4 mg tablet 4 mg PO BEDTIME metoprolol succinate 50 mg tablet extended release 24 hr 50 mg PO QAM Aspir-81 81 mg Tablet,Delayed Release (Dr/Ec) 81 mg PO BEDTIME Nitrostat 0.4 mg Tablet, Sublingual 0.4 mg SUBLINGUAL Q5M PRN (Reason: Chest Pain) Rx Instructions: do not exceed 3 doses per episode Humalog KwikPen Insulin 100 unit/mL Insulin Pen See Rx Instructions .ROUTE .COMPLEX Rx Instructions: sliding scale tid prn blood sugar Levemir FlexPen 100 unit/mL (3 mL) Insulin Pen 8 - 10 unit SUBCUT DAILY PRN (Reason: blood sugar) Tylenol Ex Str Rapid Release 500 mg Tablet 500 mg PO BEDTIME Ventolin HFA 90 mcg/actuation Hfa Aerosol Inhaler 2 puff INHALATION QID PRN (Reason: Shortness Of Breath) clopidogrel [Plavix] 75 mg tablet 75 mg PO DAILY Qty: 60 0RF atorvastatin 40 mg tablet 40 mg PO BEDTIME venlafaxine 75 mg capsule,extended release 24hr 75 mg PO BEDTIME Rx Instructions: TAKE WITH 150 MG nystatin 100,000 unit/mL Suspension 5 ml PO QID Rx Instructions: administer 1/2 of dose in each side of the mouth acitretin 10 mg capsule 10 mg PO QAM potassium chloride 10 mEq tablet extended release 10 meq PO DAILY Rx Instructions: Potassium only with Lasix docusate sodium [Colace] 100 mg capsule 100 mg PO BID PRN (Reason: Constipation) furosemide 40 mg Tablet 60 mg PO DAILY@0800 30 Days Qty: 45 0RF hydralazine 25 mg Tablet 75 mg PO TID 30 Days Qty: 270 0RF pantoprazole 40 mg Tablet,Delayed Release (Dr/Ec) 40 mg PO DAILY 14 Days Qty: 14 0RF Discharge Orders: Discharge Order (Routine); Ordered 07/14/22 Ordered By: Moe Butler Referrals: [facility] [Other] Jocelyne Kirby PA [Primary Care Provider] - 4-7 days Katherin Win FNP [Nurse Practitioner] - 7-10 days Discharge Diet: Cardiac Discharge Activity: Resume usual activity and Increase activity as tolerated Patient Instructions: CHF Stoplight, Opioid Safety Activity Restrictions/Additional Instructions: Dose of Lasix has been changed. Take 60 mg in the morning and 40 mg in evening. Restrict fluid to around 1500 cc/day. Check your body weight daily. If your body weight is 5 pounds higher than the body weight today take an extra dose of Lasix till the morning when it comes down to your dry weight. Please monitor your CMP in 1 week with your primary care provider. Take oral vancomycin 125 mg 4 times a day for next 10 days for C. difficile. Please follow-up with cardiology within next 1 week. Discharge Attestations Time Spent in Discharge Care*: greater than 30 min Specific Discharge Activities: educating patient, discussing with pcp/other providers, discussing with housing case manager/social workers/dc planners, documenting/other paperwork and evaluating patient/reviewing data Status at Discharge: Cognitive status at discharge: cognitively intact, Behavioral status at discharge: cooperative, Functional status at discharge: independent ambulation, Overall status at discharge: patient is back to baseline Quality Metrics Clinical Quality Measures [ No reported AMI, CVA or VTE this stay] Coding Level of Care Code 07285 Total time (in minutes) for Discharge: 35 Diagnoses Congestive heart failure I50.43 Heart failure chronicity: acute on chronic Heart failure type: combined systolic and diastolic CKD (chronic kidney disease) stage 3, GFR 30-59 ml/min N18.30 Acute exacerbation of CHF (congestive heart failure) I50.9 Acute exacerbation of chronic obstructive airways disease J44.1 Clostridioides difficile infection A49.8
--- NOTE | 2022-07-14 14:25 | PC.NURSE ---
Discharge Note Patient discharged to home via private vehicle accompanied by cousin. Discharge instructions reviewed with patient and/or instruments sales representative. Mobile pharmacy medications and/or prescriptions provided. Belongings/home medications returned.
[2022-07-14 15:27] LABS: Blood Gas Sample Site VENOUS
== END 2022-07-14 14:25 | disposition home or self-care (01) | DRG 291 ==
LOC: ER 21:47 → ICU 22:01 → CSU 07-10 05:02
PROVIDERS: Internal Medicine; Admitting Provider Internal Medicine; Emergency Provider Emergency Medicine; PCP Physician Assistant; Visit Provider Student in an Organized Health Care Education/Training Program
DX: I13.0 Hypertensive heart and chronic kidney disease with heart failure and stage 1 through stage 4 chronic kidney disease, or unspecified chronic kidney disease (principal); I50.43 Acute on chronic combined systolic (congestive) and diastolic (congestive) heart failure; J96.22 Acute and chronic respiratory failure with hypercapnia; J96.21 Acute and chronic respiratory failure with hypoxia; J44.1 Chronic obstructive pulmonary disease with (acute) exacerbation; A04.72 Enterocolitis due to Clostridium difficile, not specified as recurrent; I25.110 Atherosclerotic heart disease of native coronary artery with unstable angina pectoris; E11.22 Type 2 diabetes mellitus with diabetic chronic kidney disease; N18.30 Chronic kidney disease, stage 3 unspecified; E11.69 Type 2 diabetes mellitus with other specified complication; I25.2 Old myocardial infarction; E03.9 Hypothyroidism, unspecified; R79.1 Abnormal coagulation profile; Z79.4 Long term (current) use of insulin; Z79.02 Long term (current) use of antithrombotics/antiplatelets; Z79.82 Long term (current) use of aspirin; Z86.73 Personal history of transient ischemic attack (TIA), and cerebral infarction without residual deficits; Z87.891 Personal history of nicotine dependence; Z86.16 Personal history of COVID-19; Z95.1 Presence of aortocoronary bypass graft; Z95.5 Presence of coronary angioplasty implant and graft; Z99.81 Dependence on supplemental oxygen; Z91.199 Patient's noncompliance with other medical treatment and regimen due to unspecified reason
CPT/HCPCS: 36415; 36416; 36600; 51702; 71045; 78014; 80048; 80053; 80202; 81001; 82803; 82805; 82962; 83605; 83735; 83880; 84100; 84145; 84484; 85025; 85378; 85730; 86140; 87040; 87426; 87493; 87641; 87804; 93005; 93970; 93975; 94640; 94660; 96365; 96372; 96374; 96375; 96376; 99291; A9540; A9567; J1644; J1650; J1815; J1940; J2185; J3370; J3490; J7050; P9046

== ENCOUNTER → 2022-08-06 10:41 | Outpatient (BNVA) | payer MEDICARE, MEDICAID, SELFPAY | PROVIDERS: PCP Physician Assistant; Visit Provider Nurse Practitioner Family | DX: I13.0 Hypertensive heart and chronic kidney disease with heart failure and stage 1 through stage 4 chronic kidney disease, or unspecified chronic kidney disease (principal); I50.43 Acute on chronic combined systolic (congestive) and diastolic (congestive) heart failure; Z87.891 Personal history of nicotine dependence; E11.22 Type 2 diabetes mellitus with diabetic chronic kidney disease; N18.9 Chronic kidney disease, unspecified; Z79.4 Long term (current) use of insulin | CPT/HCPCS: 99214 ==

== ENCOUNTER 2022-08-25 10:11 | Inpatient (IN) | payer MEDICARE, MEDICAID, SELFPAY ==
[2022-08-25] VITALS (54 sets, daily range): BP systolic 146–203; BP diastolic 78–127; PULSE 102–118; RESP 13–38; TEMP 36.4–37.2; O2SAT 92–97
--- NOTE | 2022-08-25 10:25 | ECG_ITS ---
[facility] Test Date: 2022-08-25 Pat Name: Romi Yuan Department: Room: Gender: Female Circus Trainer: : 1950 Requested By: Jocelyne Mo Order Number: [id number] Tessa MD: Ledy Pelayo M.D. Measurements Intervals [place] Rate: 102 P: 56 [place]: 150 QRS: -26 QRSD: 101 T: 75 QT: 349 QTc: 457 Interpretive Statements SINUS TACHYCARDIA POSSIBLE INFERIOR MYOCARDIAL INFARCTION , OF INDETERMINATE AGE [30 ms Q WAVE IN II/aVF] Compared to ECG 07/09/2022 02:02:56 Sinus rhythm no longer present Ventricular premature complex(es) no longer present Left ventricular hypertrophy no longer present ST (T wave) deviation no longer present Myocardial infarct finding still present Electronically Signed On 08-25-2022 23:08:28 CDT by Ledy Pelayo M.D. [email or web address]
--- NOTE | 2022-08-25 11:43 | XR_ITS ---
WS: [id number] EXAMINATION: XR chest 1V portable [id number] REASON FOR EXAM: chest pain COMPARISON: 07/12/2022 ORDER DATE: 08/25/2022 11:45 AM TECHNIQUE: A single, portable frontal chest x-ray was obtained. FINDINGS: Lungs: Unremarkable. No consolidation. Pleural spaces: Unremarkable. No pleural effusion. No pneumothorax. Heart/Mediastinum: Postsurgical mediastinal changes with atherosclerotic aortic change and mild cardi omegaly. Bones/joints: Unremarkable. XR/XR chest 1V portable [id number] IMPRESSION: No acute findings. Mild cardiomegaly
--- NOTE | 2022-08-25 11:58 | W.ED.SOB ---
HPI - SOB/Dyspnea General: Chief Complaint: Shortness of Breath/Dyspnea Stated Complaint: sob, chest pain Time Seen by Provider: 08/25/22 11:41 Source: patient Mode of arrival: ambulatory History of Present Illness: HPI Narrative: 71-year-old female with a history of COPD presents to the emergency room complaining of chest pain began around 5 AM this morning and also some shortness of breath. She took a nitro it did relieve it. She has a history of COPD she has not had any recent fever sweats or chills or productive cough no radiation of the pain to the neck arms or back. No nausea vomiting or diaphoresis. Patient does have a history of coronary artery disease. MD elicited complaint: shortness of breath Pertinent past history: COPD Onset (ago): hour(s) Timing: intermittent Severity: mild Exacerbating factors: nothing Relieving factors: other Associated symptoms: Deny abdominal pain, chest pain, fever(s), nausea, orthopnea or vomiting Review of Systems Const: Denies: fever(s), chills, body aches, change in appetite, fatigue or malaise ENMT: Denies: throat pain, ear or mastoid pain, nasal discharge or nasal congestion Card: Denies: chest pain, edema, dyspnea on exertion or orthopnea Resp: Denies: dyspnea, productive cough or non-productive cough GI: Denies: abdominal pain, nausea, vomiting, hematemesis, coffee ground emesis, diarrhea, constipation, bloating, hematochezia or melena : Denies: flank pain, difficulty voiding, dysuria, urinary frequency or urinary urgency Skin/Breast: Denies: rash or pruritus PFSH ED PFSH: Medical History Anxiety ASHD (arteriosclerotic heart disease) Carotid arterial disease CHF (congestive heart failure) Chronic kidney disease Clostridioides difficile infection (07/2022) Colon polyps COPD (chronic obstructive pulmonary disease) Diabetes mellitus Dyslipidemia Eczema Graves disease History of CVA (cerebrovascular accident) History of skin cancer HTN (hypertension) Hypertensive urgency Hyperthyroidism Insomnia PAD (peripheral artery disease) Pneumonia due to COVID-19 virus (~06/2022) Surgical History History of cardiac catheterization 06/25/2022 Left main artery: Short, patent. Left circumflex artery: Has patent stents, no significant stenosis. LAD:Occluded in the midsegment. RCA: Known occluded. Not injected. SVG to diagonal artery and SVG to RCA are known occluded. Not injected. LOVETT to LAD: Patent. Coronary anatomy unchanged compared to before. History of coronary artery stent placement History of endovascular stent graft for abdominal aortic aneurysm (AAA) History of renal stent Hx of local excision of skin lesion (09/16/20) Left forearm x2 S/P CABG (coronary artery bypass graft) twice, last in 2004 S/P cataract surgery S/P cholecystectomy S/P hysterectomy with oophorectomy S/P skin and subcutaneous tissue surgery Status post colonoscopy (09/16/20) Status post insertion of iliac artery stent Family History Sister Mark's disease Sister No problems noted. Mother No problems noted. Other Anesthesia complication Social History Smoking and tobacco status: former smoker Alcohol intake: current Alcohol intake frequency: holidays/special occasions only Physical Exam Const: GENERAL APPEARANCE: cooperative and comfortable ORIENTATION/CONSCIOUSNESS: Yes awake, Yes oriented to person, Yes oriented to place and Yes oriented to time HENMT: COMMON NORMALS: normocephalic, atraumatic and hearing grossly normal bilaterally HEAD & SCALP: normocephalic and atraumatic Resp: COMMON NORMALS: normal respiratory effort, No retractions, No use of accessory muscles and clear to auscultation bilaterally AUSCULTATION: clear to auscultation bilaterally Cardio: COMMON NORMALS: regular rate, regular rhythm and No murmurs present (Cardio) RATE: regular rate RHYTHM: regular rhythm GI: COMMON NORMALS: Soft to palpation and No hepatosplenomegaly present AUSCULTATION: Yes normoactive bowel sounds PALPATION: Yes Soft to palpation, No Tenderness to palpation present (GI), No Guarding due to palpation present (GI) and Yes No hepatosplenomegaly present Extremity: COMMON NORMALS: normal to inspection, capillary refill normal, no clubbing, cyanosis or edema, no calf tenderness and no pedal edema Neuro: SENSORIUM/ORIENTATION: Yes oriented to person, Yes oriented to place and Yes oriented to time Skin: COMMON NORMALS: no rashes or lesions noted GENERAL SKIN EXAM: no rashes or lesions noted Course Vital Signs: Vital signs: Vital Signs Temperature 98.7 F 08/26/22 04:00 Pulse Rate 90 08/26/22 04:42 Respiratory Rate 13 08/26/22 04:00 Blood Pressure 135/83 08/26/22 04:00 Pulse Oximetry 96 08/26/22 04:00 Oxygen Delivery Me thod 08/26/22 04:00 MDM - SOB/Dyspnea Medical Decision Making Labs imaging and EKG reviewed. EKG did not show any acute changes from previous EKG from early July. Troponin on the first result is elevated at 134-second result is positive delta troponin. We had already heparinized her and place topical nitro she had reported pain earlier today was not having any further pain. Patient had angiogram in June. Did show significant coronary artery disease medical management was recommended. Will admit for NSTEMI discussed with hospitalist reviewed orders written Medical Records I reviewed the patient's medical records. Lab Data I reviewed the patient's lab results. 08/25/22 11:55 08/25/22 11:55 Labs/Radiology: Radiology Impressions Chest X-Ray 08/25/22 11:43 IMPRESSION: No acute findings. Mild cardiomegaly Laboratory Results WBC 15.9 10^3/uL (4.0-10.0) H 08/25/22 11:55 RBC 4.45 10^6/uL (4.1-5.3) 08/25/22 11:55 Hgb 12.5 g/dL (11.5-15.3) 08/25/22 11:55 Hct 39.3 % (37.0-47.0) 08/25/22 11:55 MCV 88.3 fl (81-99) 08/25/22 11:55 MCH 28.1 pg (28.0-34.0) 08/25/22 11:55 MCHC 31.8 g/dL (30.0-36.0) 08/25/22 11:55 RDW 14.4 % (12.1-15.1) 08/25/22 11:55 Plt Count 333 10^3/cmm (130-400) 08/25/22 11:55 MPV 10.1 fL (7.4-10.4) 08/25/22 11:55 Neut % (Auto) 77.7 % 08/25/22 11:55 Lymph % (Auto) 15.6 % 08/25/22 11:55 [place] % (Auto) 3.7 % 08/25/22 11:55 Eos % (Auto) 2.1 % 08/25/22 11:55 Baso % (Auto) 0.5 % 08/25/22 11:55 Neut # (Auto) 12.35 10^3/uL (1.8-7.7) H 08/25/22 11:55 Lymph # (Auto) 2.5 10^3/uL (0.8-4.8) 08/25/22 11:55 [place] # (Auto) 0.6 10^3/uL (0.2-0.9) 08/25/22 11:55 Eos # (Auto) 0.3 10^3/uL (0.0-0.8) 08/25/22 11:55 Baso # (Auto) 0.1 10^3/uL (0.0-0.1) 08/25/22 11:55 Nucleated RBC % (auto) 0 % 08/25/22 11:55 Nucleated RBCs # 0.0 /100WBC 08/25/22 11:55 PT 13.30 SECONDS (12.1-14.9) 08/25/22 11:44 INR 0.99 (0.8-1.2) 08/25/22 11:44 APTT 30.7 SECONDS (23.9-36.7) 08/25/22 11:44 Sodium 141 mmol/L (136-145) 08/25/22 11:55 Potassium 4.7 mmol/L (3.5-5.1) 08/25/22 11:55 Chloride 104 mmol/L (98-107) 08/25/22 11:55 Carbon Dioxide 26 mmol/L (22-29) 08/25/22 11:55 Anion Gap 15.7 (5-19) 08/25/22 11:55 BUN 23 mg/dL (8-23) 08/25/22 11:55 Creatinine 1.7 mg/dL (0.5-0.9) H 08/25/22 11:55 GFR Calculation Not Reportable 08/25/22 11:55 Glucose 162 mg/dL (65-115) H 08/25/22 11:55 Calculated Osmolality 299 mOsm/kg (285-295) H 08/25/22 11:55 Calcium 9.5 mg/dL (8.5-10.5) 08/25/22 11:55 Total Bilirubin 0.4 mg/dL (0.15-1.2) 08/25/22 11:55 AST 21 U/L (0-32) 08/25/22 11:55 ALT 9 U/L (0-33) 08/25/22 11:55 Alkaline Phosphatase 152 U/L (35-105) H 08/25/22 11:55 Troponin T Baseline 134 ng/L (0-10) H* 08/25/22 11:55 Troponin T 120 Minute 163.0 ng/L (0-10) H 08/25/22 13:24 Delta Troponin T 29.0 ABS# (0-10) H* 08/25/22 13:24 Total Protein 7.1 g/dL (6.6-8.7) 08/25/22 11:55 Albumin 3.5 g/dL (3.5-5.2) 08/25/22 11:55 Globulin 3.6 g/dL (1.3-4.6) 08/25/22 11:55 Discharge Plan Discharge Patient Disposition: Admitted As Inpatient Admit Provider: Nuris Price Clinical Impression: NSTEMI (non-ST elevated myocardial infarction), Chronic kidney disease, CHF (congestive heart failure), CAD (coronary artery disease), PAD (peripheral artery disease), COPD (chronic obstructive pulmonary disease) Condition: Stable Coding Level of Care Code ED Director Of Income Tax for Kiran Holland
[2022-08-25 12:06] LABS: Basophils # 0.1 10^3/uL (0.0-0.1); Basophils % 0.5 %; Eosinophils # 0.3 10^3/uL (0.0-0.8); Eosinophils % 2.1 %; Hematocrit 39.3 % (37.0-47.0); Hemoglobin 12.5 g/dL (11.5-15.3); Lymphocytes # 2.5 10^3/uL (0.8-4.8); Lymphocytes % 15.6 %; Mean Corpuscular HGB Conc 31.8 g/dL (30.0-36.0); Mean Corpuscular Hemoglobin 28.1 pg (28.0-34.0); Mean Corpuscular Volume 88.3 fl (81-99); Mean Platelet Volume 10.1 fL (7.4-10.4); Monocytes # 0.6 10^3/uL (0.2-0.9); Monocytes % 3.7 %; Neutrophils # 12.35 10^3/uL (1.8-7.7); Neutrophils % 77.7 %; Nucleated Red Blood Cells % 0 %; Platelet Count 333 10^3/cmm (130-400); Red Blood Count 4.45 10^6/uL (4.1-5.3); Red Cell Distribution Width 14.4 % (12.1-15.1); White Blood Count 15.9 10^3/uL (4.0-10.0)
[2022-08-25] MEDS: aspirin 81 mg Chew Tablet 324 MG PO (12:09)
[2022-08-25 12:25] LABS: Alanine Aminotransferase 9 U/L (0-33); Albumin Level 3.5 g/dL (3.5-5.2); Alkaline Phosphatase 152 U/L (35-105); Anion Gap 15.7 (5-19); Aspartate Amino Transferase 21 U/L (0-32); Blood Urea Nitrogen 23 mg/dL (8-23); Calcium 9.5 mg/dL (8.5-10.5); Carbon Dioxide 26 mmol/L (22-29); Chloride 104 mmol/L (98-107); Globulin 3.6 g/dL (1.3-4.6); Glucose 162 mg/dL (65-115); Osmolality Calculated 299 mOsm/kg (285-295); Potassium 4.7 mmol/L (3.5-5.1); Sodium 141 mmol/L (136-145); Total Bilirubin 0.4 mg/dL (0.15-1.2); Total Protein 7.1 g/dL (6.6-8.7)
[2022-08-25 12:29] LABS: Troponin(5th) Baseline 134 ng/L (0-10)
--- NOTE | 2022-08-25 13:02 | PC.PHAR ---
pt not able to verify medications- waiting for visitor to bring in med list
[2022-08-25 13:05] LABS: INR 0.99 (0.8-1.2)
[2022-08-25 13:06] LABS: Partial Thromboplastin Time 30.7 SECONDS (23.9-36.7)
[2022-08-25] MEDS: nitroglycerin 1 gm/inch oint Pkt 1 INCH TOPICAL (13:37)
--- NOTE | 2022-08-25 13:49 | ECG_ITS ---
[facility] Test Date: 2022-08-25 Pat Name: Romi Yuan Department: Room: Gender: Female Reconcilement Clerk: : 1950 Requested By: Tae Mo Order Number: [id number] Tessa MD: Ledy Pelayo M.D. Measurements Intervals [place] Rate: 104 P: 52 UT: 158 QRS: -4 QRSD: 98 T: 92 QT: 348 QTc: 459 Interpretive Statements SINUS TACHYCARDIA WITH OCCASIONAL VENTRICULAR PREMATURE COMPLEXES NONSPECIFIC ST & T-WAVE ABNORMALITY Compared to ECG 08/25/2022 10:22:23 Ventricular premature complex(es) now present T-wave abnormality now present Myocardial infarct finding no longer present Electronically Signed On 08-25-2022 23:16:22 CDT by Ledy Pelayo M.D. [id number]
[2022-08-25] MEDS: heparin 5,000 unit/mL INJ 1 mL IV (13:50)
[2022-08-25] MEDS: heparin drip 25,000 UNIT/500 ML PREMIX 17 UNIT IV (14:01)
--- NOTE | 2022-08-25 14:09 | PC.PHAR ---
medications verified using external med list- list from pt and calling [facility] pharmacy where pt fills scripts- pharmacist states pt has not filled several medications lately and pt should be out- last filled noted on those scripts
--- NOTE | 2022-08-25 16:51 | PC.NURSE ---
attempted to call report to CSU. nurse unavailable at this time
--- NOTE | 2022-08-25 17:07 | P.HP_ITS ---
Providers/Chief Complaint Admitting Physician: Nuris Price MD Primary Care Provider: Jocelyne Kirby Chief Complaint: sob, chest pain History of Present Illness Romi Yuan is a 71 year old female who presented to the emergency room with a chief complaint of chest pain. She has a known history of coronary artery disease, chronic kidney disease, hypertension with hypertensive emergency at times and COPD among other diagnoses as noted below. She has been having recurrent admissions for the last few months with flash pulmonary edema. Difficulty breathing is usually her primary complaint. She was last discharged on July 14. She is done much better in the interval timeframe compared to previous stays. She followed up with cardiology on August 06. She says that she has been watching her weight and taking Lasix if her weight increases too much. She reports compliance with other medications also recently. She is on oxygen as needed at home. She had actually started trying to walk a bit more and was able to walk with her dog out to the mailbox last few days preceding admission without the same degree of difficulty breathing or any chest discomfort. After she did that she worked on cleaning up the house a bit and did a lot of vacuuming. After the vacuuming she started having some wheezing and rattling in her chest. She felt like she had increased sputum production but was not able to get it up feeling like it was stuck in her throat some. Her breathing seemed to get better overnight with resting but she was unable to sleep. She reports that her hands and her feet were itching her. With her restlessness and itching she was moving around a lot in bed. She had an episode this morning of chest pain that was a tightness in the center of her chest. She was short of breath during the episode but it was more the chest tightness that was concerning to her. She took 1 nitroglycerin with improvement. Denies any nausea or vomiting. She did not really notice any palpitations or diaphoresis. Given the severity of the pain at the time she came into the emergency room for further evaluation. Initial troponin was found to be 134. Most recent comparable baseline troponin at the end of June and early July was 84-95. At the beginning of June she had a baseline troponin as high as 592. She had some nonspecific EKG changes. She was given some Nitropaste in the emergency room and started on a heparin drip. Cardiac catheterization that was done in June showed a patent but short left main, patent stents in left circumflex artery, occlusion in the LAD and a patent LOVETT to the LAD. RCA was known to be occluded as was saphenous vein graft to the diagonal and RCA. With recurrent symptoms hospitalist for contacted for admission. At the time of my evaluation patient is chest pain- free. She did not take any of her medications this morning. She did not weigh herself this morning because of the acute symptoms. She denies any bleeding, blood in her stools or black tarry stools. No longer having diarrhea. She did have C. difficile during her last stay in July. No recent fevers. The itching of her hands and feet has been a relatively new problem for her. Interestingly she has found that Tylenol helps it more than anything. Review of Systems General: Reports: Other (ROS as per HPI or as otherwise noted here) Medications/Allergies Home Medications Medication Instructions Recorded Confirmed Last Taken Type isosorbide mononitrate 60 mg 60 mg PO BID 07/20/19 08/25/22 08/24/22 History tablet,extended release 24 hr umeclidinium 62.5 mcg-vilanterol 1 inh inhalation DAILY 07/20/19 08/25/22 08/24/22 History 25 mcg/actuation powdr for inhalation (Anoro Ellipta) venlafaxine 150 mg 150 mg PO BEDTIME 07/20/19 08/25/22 08/24/22 History capsule,extended release 24 hr (Effexor XR) methimazole 5 mg tablet 5 mg PO DAILY #30 tabs 03/11/20 08/25/22 08/24/22 Rx blood sugar diagnostic (Accu-Chek #120 ea 06/23/21 08/25/22 Unknown Rx Ana M Plus test strips) clopidogrel 75 mg tablet (Plavix) 75 mg PO DAILY #60 tabs 06/15/22 08/25/22 08/24/22 Rx acitretin 10 mg capsule 10 mg PO QAM 06/19/22 08/25/22 08/24/22 History atorvastatin 40 mg tablet 40 mg PO BEDTIME 06/19/22 08/25/22 08/24/22 History venlafaxine 75 mg capsule,extended 75 mg PO BEDTIME 06/19/22 08/25/22 08/24/22 History release 24 hr docusate sodium 100 mg capsule 100 mg PO BID PRN Constipation 06/24/22 08/25/22 08/24/22 History (Colace) acetaminophen 500 mg tablet 500 mg PO BEDTIME 07/09/22 08/25/22 Unknown History albuterol sulfate 90 mcg/actuation 2 puff inhalation QID PRN 07/09/22 08/25/22 Unknown History aerosol inhaler (Ventolin HFA) Shortness Of Breath aspirin 81 mg tablet,delayed 81 mg PO BEDTIME 07/09/22 08/25/22 08/24/22 History release insulin detemir U-100 100 unit/mL 8 - 10 unit SUBCUT DAILY PRN blood 07/09/22 08/25/22 Unknown History (3 mL) subcutaneous pen (Levemir sugar FlexPen) insulin lispro 100 unit/mL See Rx Instructions .Route .COMPLEX 07/09/22 08/25/22 Unknown History subcutaneous pen (Humalog KwikPen (U-100) Insulin) nitroglycerin 0.4 mg sublingual 0.4 mg sublingual Q5M PRN Chest 07/09/22 08/25/22 Unknown History tablet (Nitrostat) Pain tizanidine 4 mg tablet 4 mg PO BEDTIME 07/09/22 08/25/22 Unknown History cholecalciferol (vitamin D3) 125 125 mcg PO DAILY 08/06/22 08/25/22 08/24/22 History mcg (5,000 unit) capsule furosemide 40 mg tablet (Lasix) 40 mg PO DIRECTED 08/06/22 08/25/22 08/24/22 History hydralazine 25 mg tablet 75 mg PO TID 08/06/22 08/25/22 08/24/22 History nifedipine 30 mg tablet,extended 90 mg PO DAILY 08/06/22 08/25/22 08/24/22 History release 24 hr pantoprazole 40 mg tablet,delayed 40 mg PO DAILY 08/06/22 08/25/22 08/24/22 History release potassium chloride 10 mEq 10 meq PO DAILY 08/06/22 08/25/22 08/24/22 History tablet,extended release metoprolol succinate 50 mg 50 mg PO QAM 08/25/22 08/25/22 08/24/22 History tablet,extended release 24 hr Allergies Allergy/AdvReac Type Severity Reaction Status Date / Time cefuroxime [From Ceftin] Allergy ALGY-Rash Verified 08/25/22 13:45 cephalexin [From Keflex] Allergy ALGY-Rash Verified 08/25/22 13:45 hydroxyzine [From Vistaril] Allergy ALGY-Anaphy Verified 08/25/22 13:45 laxis Penicillins Allergy ALGY-Redness Verified 08/25/22 13:45 of Skin prochlorperazine Allergy ALGY-Anaphy Verified 08/25/22 13:45 [From Compazine] laxis promethazine [From Phenergan] Allergy ALGY-Anaphy Verified 08/25/22 13:45 laxis venom-honey bee Allergy ALGY-Anaphy Verified 08/25/22 13:45 laxis simvastatin [From Zocor] AdvReac ADR-Heartbu Verified 08/25/22 13:45 rn PFSH Acute PFSH: Medical History (Updated 08/25/22 @ 20:20 by Nuris Price MD) Anxiety ASHD (arteriosclerotic heart disease) Carotid arterial disease CHF (congestive heart failure) Chronic kidney disease Clostridioides difficile infection (07/2022) Colon polyps COPD (chronic obstructive pulmonary disease) Diabetes mellitus Dyslipidemia Eczema Graves disease History of CVA (cerebrovascular accident) History of skin cancer HTN (hypertension) Hypertensive urgency Hyperthyroidism Insomnia PAD (peripheral artery disease) Pneumonia due to COVID-19 virus (~06/2022) Surgical History (Updated 08/25/22 @ 20:24 by Nuris Price MD) History of cardiac catheterization 06/25/2022 Left main artery: Short, patent. Left circumflex artery: Has patent stents, no significant stenosis. LAD:Occluded in the midsegment. RCA: Known occluded. Not injected. SVG to diagonal artery and SVG to RCA are known occluded. Not injected. LOVETT to LAD: Patent. Coronary anatomy unchanged compared to before. History of coronary artery stent placement History of endovascular stent graft for abdominal aortic aneurysm (AAA) History of renal stent Hx of local excision of skin lesion (09/16/20) Left forearm x2 S/P CABG (coronary artery bypass graft) twice, last in 2004 S/P cataract surgery S/P cholecystectomy S/P hysterectomy with oophorectomy S/P skin and subcutaneous tissue surgery Status post colonoscopy (09/16/20) Status post insertion of iliac artery stent Family History Sister Mark's disease Sister No problems noted. Mother No problems noted. Other Anesthesia complication Social History Smoking and tobacco status: former smoker Alcohol intake: current Alcohol intake frequency: holidays/special occasions only Vitals/I&O/Wt Last Vital Signs Temp 97.6 F 08/25/22 10:14 Pulse 113 H 08/25/22 16:35 Resp 17 08/25/22 16:35 BP 194/105 08/25/22 16:30 Pulse Ox 96 08/25/22 16:35 O2 Del Method 08/25/22 10:14 Weight last 48 hrs Weight 61.235 kg Physical Exam Narrative: Patient is awake and alert. Able to provide history. Normocephalic, pupils are equally reactive, nasopharynx is clear, oropharynx with moist membranes. Neck is supple. Lungs are clear to auscultation without any rales rhonchi or wheezes noted. No accessory muscle use. Chest wall is not tender to palpation. She has a regular rate and rhythm. Pulses are 1+ and equal x4. Abdomen is soft, nontender with positive bowel sounds. 3+ pitting edema to both lower extremities. No calf tenderness. Skin is dry with evidence of prior sun exposure and old scars. Has some minor scratches and sores in different stages of healing noted on her face arms and legs including feet all noted a few millimeters at most in diameter. Speech is clear, face symmetric, moves all extremities. Data 08/25/22 11:55 08/25/22 11:55 Other Labs: Radiology Impressions Chest X-Ray 08/25/22 11:43 IMPRESSION: No acute findings. Mild cardiomegaly Laboratory Results WBC 15.9 10^3/uL (4.0-10.0) H 08/25/22 11:55 RBC 4.45 10^6/uL (4.1-5.3) 08/25/22 11:55 Hgb 12.5 g/dL (11.5-15.3) 08/25/22 11:55 Hct 39.3 % (37.0-47.0) 08/25/22 11:55 MCV 88.3 fl (81-99) 08/25/22 11:55 MCH 28.1 pg (28.0-34.0) 08/25/22 11:55 MCHC 31.8 g/dL (30.0-36.0) 08/25/22 11:55 RDW 14.4 % (12.1-15.1) 08/25/22 11:55 Plt Count 333 10^3/cmm (130-400) 08/25/22 11:55 MPV 10.1 fL (7.4-10.4) 08/25/22 11:55 Neut % (Auto) 77.7 % 08/25/22 11:55 Lymph % (Auto) 15.6 % 08/25/22 11:55 [place] % (Auto) 3.7 % 08/25/22 11:55 Eos % (Auto) 2.1 % 08/25/22 11:55 Baso % (Auto) 0.5 % 08/25/22 11:55 Neut # (Auto) 12.35 10^3/uL (1.8-7.7) H 08/25/22 11:55 Lymph # (Auto) 2.5 10^3/uL (0.8-4.8) 08/25/22 11:55 [place] # (Auto) 0.6 10^3/uL (0.2-0.9) 08/25/22 11:55 Eos # (Auto) 0.3 10^3/uL (0.0-0.8) 08/25/22 11:55 Baso # (Auto) 0.1 10^3/uL (0.0-0.1) 08/25/22 11:55 Nucleated RBC % (auto) 0 % 08/25/22 11:55 Nucleated RBCs # 0.0 /100WBC 08/25/22 11:55 PT 13.30 SECONDS (12.1-14.9) 08/25/22 11:44 INR 0.99 (0.8-1.2) 08/25/22 11:44 APTT 30.7 SECONDS (23.9-36.7) 08/25/22 11:44 Sodium 141 mmol/L (136-145) 08/25/22 11:55 Potassium 4.7 mmol/L (3.5-5.1) 08/25/22 11:55 Chloride 104 mmol/L (98-107) 08/25/22 11:55 Carbon Dioxide 26 mmol/L (22-29) 08/25/22 11:55 Anion Gap 15.7 (5-19) 08/25/22 11:55 BUN 23 mg/dL (8-23) 08/25/22 11:55 Creatinine 1.7 mg/dL (0.5-0.9) H 08/25/22 11:55 GFR Calculation Not Reportable 08/25/22 11:55 Glucose 162 mg/dL (65-115) H 08/25/22 11:55 Calculated Osmolality 299 mOsm/kg (285-295) H 08/25/22 11:55 Calcium 9.5 mg/dL (8.5-10.5) 08/25/22 11:55 Total Bilirubin 0.4 mg/dL (0.15-1.2) 08/25/22 11:55 AST 21 U/L (0-32) 08/25/22 11:55 ALT 9 U/L (0-33) 08/25/22 11:55 Alkaline Phosphatase 152 U/L (35-105) H 08/25/22 11:55 Troponin T Baseline 134 ng/L (0-10) H* 08/25/22 11:55 Troponin T 120 Minute 163.0 ng/L (0-10) H 08/25/22 13:24 Delta Troponin T 29.0 ABS# (0-10) H* 08/25/22 13:24 Total Protein 7.1 g/dL (6.6-8.7) 08/25/22 11:55 Albumin 3.5 g/dL (3.5-5.2) 08/25/22 11:55 Globulin 3.6 g/dL (1.3-4.6) 08/25/22 11:55 Laboratory Tests 08/25/22 17:38 Troponin T Hi Sens 6Hr 276.9 H Troponin T Hi Sens 6Hr Delta 142.9 H* A&P Assessment and plan (1) NSTEMI (non-ST elevated myocardial infarction): In a patient with known coronary artery disease status post multiple prior interventions including bypass surgery x2 and stent placements. Last catheterization was in June of this year without many areas that might be amenable to further intervention. This episode does not appear to have been brought on by flash pulmonary edema as most of the more recent episodes have been making it standout from available history. She reports compliance with medications other than today. Pain was relieved with nitroglycerin. Chronically on aspirin, Plavix, statin, nitrates and beta-blockade (2) Congestive heart failure: Acute on chronic systolic/reduced ejection fraction CHF with EF at 35 to 40% on last echocardiogram performed in June of this year demonstrating severe hypokinesis of inferior and inferior lateral watters with grade 1 diastolic dysfunction. From available history patient takes diuretics based on weight fluctuations rather than scheduled. (3) HTN (hypertension): Secondary hypertension with hypertensive urgency. She does report not taking her usual medications this morning, though review of records shows that she of ten presents similarly during acute events. She is chronically on multiple medications for blood pressure control including as needed diuretics, hydralazine, isosorbide, metoprolol, nifedipine. I will note she is also on venlafaxine chronically that may be contributing factor at times. (4) Itching of both hands: In a patient with reported history of eczema. The itching appears to be relatively recent in onset. She has been doing some cleaning around the house. I do wonder if its not secondary to exposure to something. Have significant azotemia presently. Skin is dry. With isolation to hands and feet neuropathy is also a consideration. Seems less likely to be parasitic in nature with distribution though certainly within the differential. Reported severe allergies to antihistamines limit options for symptom control beyond moisturizing. (5) Diabetes mellitus: Type II, insulin requiring, with chronic kidney disease stage III, unspecified at this time if a or b. On Levemir and lispro chronically. (6) Chronic kidney disease: Stage III, unspecified at this time if a or b. (7) PAD (peripheral artery disease): Has history of renal artery and aortic stents/interventions, known carotid disease (8) Dyslipidemia: On chronic statin therapy (9) Hyperthyroidism: Chronically on methimazole (10) COPD (chronic obstructive pulmonary disease): Chronic, not currently acute, on as needed oxygen and breathing treatments/inhalers as needed, no longer smokes Plan History of C. difficile colitis in July of this year History of COVID associated pneumonia in June this year Leukocytosis with left shift, no current evidence of acute infection, suspect reactive in nature at this time Inpatient admission Continue heparin drip as part of medical management for NSTEMI Continue aspirin, Plavix, statin, beta-blockade and nitrates Case was reviewed with Dr. Goldstein with cardiology, he will see her Repeat echocardiogram IV Lasix Strict I's and O's and daily weights Monitor renal function for changes Check uric acid Resume home nifedipine and hydralazine in addition to other medicines which might impact blood pressures For now we will continue home venlafaxine though at a total amount of 150 at bedtime; with difficult to control blood pressures chronically may be beneficial to try to taper off of this and switch to an alternative agent that is less likely to contribute to hypertensive emergency Long and short acting insulin for diabetes Check TSH, continue home methimazole Moisturizers and calamine lotion for itching hands and feet Breathing treatments as needed Supportive care otherwise Findings, concerns and plans were discussed with patient and she was given an opportunity to ask questions Anticipate discharge home with outpatient follow-up to primary care provider and cardiology Depending on clinical course and potential options for management reasonable to start having focused goal of care discussions with patient and/or family when available. Full code Attestations Medical Necessity Statement*: Anticipated stay greater than two midnights in a patient presenting with chest pain that was relieved with nitroglycerin ultimately found to have non-ST elevation KS with significant delta troponin of 142 at 6 hours. She has known significant coronary and peripheral vascular disease among other diagnoses noted above. Currently requiring continuous heparin infusion, multiple medications for blood pressure control and cardiology evaluation to facilitate determination of management options at this point. At high risk continued rapid cardiac decline without inpatient management. Diagnoses NSTEMI (non-ST elevated myocardial infarction) I21.4 Congestive heart failure I50.9 HTN (hypertension) I10 Itching of both hands L29.9 Diabetes mellitus E11.9 Chronic kidney disease N18.9 PAD (peripheral artery disease) I73.9 Dyslipidemia E78.5 Hyperthyroidism E05.90 COPD (chronic obstructive pulmonary disease) J44.9
--- NOTE | 2022-08-25 17:43 | ECG_ITS ---
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 Measurements Intervals [place] Rate: 106 P: 59 MT: 158 QRS: -31 QRSD: 95 T: 81 QT: 350 QTc: 466 Interpretive Statements SINUS TACHYCARDIA LEFT AXIS DEVIATION [QRS AXIS < -30] NONSPECIFIC ST & T-WAVE ABNORMALITY Compared to ECG 08/25/2022 13:49:28 Left-axis deviation now present Ventricular premature complex(es) no longer present T-wave abnormality still present Electronically Signed On 08-25-2022 23:17:01 CDT by Ledy Pelayo M.D. [email or web address] specialty hospital - [email or web address].Second [id number]
[2022-08-25 18:14] LABS: Glucose Point of Care 142 mg/dL (70-110)
--- NOTE | 2022-08-25 18:16 | USCV_ITS ---
Romi Yuan Age: 71 Gender: F : 1950 Exam Date: 08/25/2022 23:27 Ordering Phys: Nuris Price MD Technologist: BAILEY Exam Location: [facility] [place] Indication: nstemi, chf, known cad s/p CABD twice, last 2008, followed with stenting, BP: 194 / 105 HR: 80 Rhythm: Sinus Technical Quality: Adequate MEASUREMENTS (Male / Female) Normal Values 2D ECHO LV Diastolic Diameter PLAX 5.2 cm 4.2 - 5.9 / 3.9 - 5.3 cm LV Systolic Diameter PLAX 4.5 cm IVS Diastolic Thickness 1.5 cm 0.6 - 1.0 / 0.6 - 0.9 cm IVS Systolic Thickness 1.8 cm LVPW Diastolic Thickness 1.1 cm 0.6 - 1.0 / 0.6 - 0.9 cm LVPW Systolic Thickness 1.2 cm LVOT Diameter 1.8 cm LV Ejection Fraction 2D Teich 27.3 % LV Ejection Fraction MOD 2C 30.4 % LV Ejection Fraction 2C AL 32.6 % LA Diameter 5.0 cm LA Width 4.3 cm LA Height 5.9 cm RA Width 2.5 cm RA Height 3.5 cm Aorta at Sinotubular Diameter 2.3 cm IVC Diameter 0.9 cm M-MODE Aortic Annulus Diameter 2.6 cm LA Ao Ratio MM 2.1 MV E Point Septal Separation 2.0 cm DOPPLER AV Peak Velocity 139.0 cm/s LVOT Peak Velocity 63.0 cm/s AV Area Cont Eq vti 1.1 cm squared AV Area Cont Eq pk 1.1 cm squared MV Area PHT 4.0 cm squared Mitral E to A Ratio 0.9 MV E' Velocity 57.5 cm/s Mitral E to MV E' Ratio 45.0 Mitral E to LV E' Lateral Ratio 41.7 Mitral E to LV E' Septal Ratio 51.1 TV Peak E Velocity 34.0 cm/s PV Peak Velocity 127.0 cm/s RV Acceleration Time 0.1 s RV Ejection Time 0.3 s RV AcT/ET 0.3 FINDINGS Left Ventricle Left ventricle is normal in size. LV systolic function is severely reduced with EF of 30-35%. Severe global hypokinesis. Grade 1 diastolic dysfunction Right Ventricle Normal in size and function Right Atrium Normal in size Left Atrium Dilated Mitral Valve Mild mitral annular calcification. Moderate mitral regurgitation. Aortic Valve Thickened aortic valve. No significant aortic stenosis. Tricuspid Valve Trace tricuspid regurgitation. Insufficient TR jet to calculate RVSP Pulmonic Valve Not well visualized Pericardium Normal Aorta Noraml in size IVC Appears to be normal CONCLUSIONS LV systolic function is severely reduced with EF 50 to 55%. Severe global hypokinesis. Grade 1 diastolic dysfunction Left atrial dilation Moderate mitral regurgitation. Trace tricuspid regurgitation Compared to prior echocardiogram from 06/15/2022,LV systolic function has decreased. Tristin Goldstein MD (Electronically Signed) Final Date: 26 August 2022 10:08 S
[2022-08-25 18:24] LABS: Troponin 5 6HR 276.9 ng/L (0-10); Troponin 5 6HR Delta 142.9 ng/L (0-12)
[2022-08-25] MEDS: FUROsemide 10 mg/mL SDV 4mL 40 MG IVP (18:50)
[2022-08-25] MEDS: isosorbide mononitrate ER 60 mg Tablet PO (18:51)
[2022-08-25] MEDS: insulin lispro 100 unit/1 mL SUBCUT (18:51)
[2022-08-25 20:01] LABS: Add Urine Microscopic? YES; Bilirubin Urine Neg (Negative); Blood Urine Neg (Negative); Glucose Urine UA Norm (Normal); Ketones Urine Negative (Negative); Leukocyte Esterase Urine Negative (Negative); Nitrate Urine Negative (Negative); Protein Urine 3+ (Negative); Specific Gravity, Urine 1.005 (1.005-1.030); Urine Appearance Hazy (CLEAR); Urine Color Light yellow (Yellow); Urobilinogen Urine Neg (Negative); pH Urine 7 (5-7)
[2022-08-25 20:02] LABS: Add Urine Culture? No; Squamous Epithelial Cell Urine 0-4 /hpf (0-5); WBC Urine 0-4 /hpf (0-5)
[2022-08-25 20:53] LABS: Glucose Point of Care 122 mg/dL (70-110)
[2022-08-25] MEDS: atorvastatin 40 mg Tablet PO (21:13)
[2022-08-25] MEDS: hyDRALAzine 25 mg Tablet 75 MG PO (21:13)
[2022-08-25] MEDS: tizanidine 4 mg Tablet PO (21:13)
[2022-08-25] MEDS: venlafaxine ER (24HR) 150 mg Capsule PO (21:13)
[2022-08-25] MEDS: metoprolol tartrate 25 mg Tablet PO (21:13)
[2022-08-25] MEDS: aspirin 81 mg EC Tablet PO (21:13)
[2022-08-25] MEDS: insulin glargine 100 units/1 mL 6 UNIT SUBCUT (21:14)
[2022-08-25] MEDS: acetaminophen 500 mg Tablet PO (21:14)
--- NOTE | 2022-08-25 21:36 | PC.NURSE ---
Ptt is 70.0. No rate change to current heparin drip..
[2022-08-26] VITALS (13 sets, daily range): BP systolic 135–178; BP diastolic 76–105; PULSE 59–97; RESP 13–29; TEMP 36.9–37.5; O2SAT 94–98
[2022-08-26 04:25] LABS: Basophils # 0.1 10^3/uL (0.0-0.1); Basophils % 0.7 %; Eosinophils # 0.2 10^3/uL (0.0-0.8); Eosinophils % 2.1 %; Hemoglobin 11.9 g/dL (11.5-15.3); Lymphocytes # 2.7 10^3/uL (0.8-4.8); Lymphocytes % 25.3 %; Mean Corpuscular HGB Conc 32.2 g/dL (30.0-36.0); Mean Corpuscular Hemoglobin 28.7 pg (28.0-34.0); Mean Corpuscular Volume 89.4 fl (81-99); Mean Platelet Volume 10.6 fL (7.4-10.4); Monocytes # 0.6 10^3/uL (0.2-0.9); Monocytes % 5.3 %; Neutrophils # 7.12 10^3/uL (1.8-7.7); Neutrophils % 66.2 %; Nucleated Red Blood Cells % 0 %; Platelet Count 304 10^3/cmm (130-400); Red Blood Count 4.14 10^6/uL (4.1-5.3); Red Cell Distribution Width 14.6 % (12.1-15.1); White Blood Count 10.8 10^3/uL (4.0-10.0)
[2022-08-26 04:47] LABS: Partial Thromboplastin Time 91.5 SECONDS (23.9-36.7)
[2022-08-26] MEDS: FUROsemide 10 mg/mL SDV 4mL 40 MG IVP ×2 (04:52→17:45)
[2022-08-26 04:53] LABS: Alanine Aminotransferase 8 U/L (0-33); Albumin Level 2.8 g/dL (3.5-5.2); Alkaline Phosphatase 123 U/L (35-105); Anion Gap 15.3 (5-19); Aspartate Amino Transferase 24 U/L (0-32); Blood Urea Nitrogen 26 mg/dL (8-23); Calcium 9.1 mg/dL (8.5-10.5); Carbon Dioxide 25 mmol/L (22-29); Chloride 109 mmol/L (98-107); Globulin 3.1 g/dL (1.3-4.6); Glucose 137 mg/dL (65-115); Magnesium 2.1 mg/dL (1.7-2.3); Osmolality Calculated 307 mOsm/kg (285-295); Phosphorus 3.4 mg/dL (2.5-4.5); Potassium 4.3 mmol/L (3.5-5.1); Sodium 145 mmol/L (136-145); Total Bilirubin 0.4 mg/dL (0.15-1.2); Total Protein 5.9 g/dL (6.6-8.7); Uric Acid 9.6 mg/dL (2.4-5.7)
[2022-08-26] MEDS: metoprolol succinate ER (24 HR) 50 mg Tablet PO (04:53)
[2022-08-26 05:33] LABS: NT Pro B Type Natriuretic Pept > 70000 pg/mL (0-125)
[2022-08-26 06:39] LABS: Glucose Point of Care 144 mg/dL (70-110)
--- NOTE | 2022-08-26 07:33 | P.CONIM_ITS ---
Providers/Reason For Consult Consulting Physician/Specialty*: Tristin Goldstein MD/ Cardiology Reason for Consult*: NSTEMI Requesting Physician: Dr Price Attending Physician: Nuris Price MD Primary Care Provider: Jocelyne Kirby History of Present Illness History of Present Illness Romi Yuan is a 71 year old female with past medical history of hypertension, hyperlipidemia, diabetes, CAD s/p CABG was presented to hospital with chest pain symptoms. Patient with nitros however pain was not resolving so presented to the hospital. Since being in the hospital, she is chest pain-free. She was started on heparin drip. Her troponin is still significantly trend up from 134 at baseline to 276 at 6 hours. She has significant CKD. Also had multiple admissions with recurrent pulmonary edema. Also has dyspnea on exertion. EKG shows normal sinus rhythm without significant ischemic changes. Review of Systems General: Reports: 10 or more systems reviewed and unremarkable except in HPI and below Const: Denies: fever(s), chills, body aches, change in appetite or diaphoresis Card: Reports: chest pain, dyspnea on exertion and orthopnea; Denies: palpitations, edema, swelling of feet/ankles or leg pain with exertion Resp: Reports: dyspnea; Denies: productive cough, wheezing or pain on inspiration GI: Denies: abdominal pain, nausea, vomiting, diarrhea or constipation : Denies: flank pain Musc: Denies: back pain, extremity pain or extremity swelling Neuro: Denies: headache(s), difficulty walking or confusion Medications/Allergies Home Medications Medication Instructions Recorded Confirmed Last Taken Type isosorbide mononitrate 60 mg 60 mg PO BID 07/20/19 08/25/22 08/24/22 History tablet,extended release 24 hr umeclidinium 62.5 mcg-vilanterol 1 inh inhalation DAILY 07/20/19 08/25/22 08/24/22 History 25 mcg/actuation powdr for inhalation (Anoro Ellipta) venlafaxine 150 mg 150 mg PO BEDTIME 07/20/19 08/25/22 08/24/22 History capsule,extended release 24 hr (Effexor XR) methimazole 5 mg tablet 5 mg PO DAILY #30 tabs 03/11/20 08/25/22 08/24/22 Rx blood sugar diagnostic (Accu-Chek #120 ea 06/23/21 08/25/22 Unknown Rx Ana M Plus test strips) clopidogrel 75 mg tablet (Plavix) 75 mg PO DAILY #60 tabs 06/15/22 08/25/22 08/24/22 Rx acitretin 10 mg capsule 10 mg PO QAM 06/19/22 08/25/22 08/24/22 History atorvastatin 40 mg tablet 40 mg PO BEDTIME 06/19/22 08/25/22 08/24/22 History venlafaxine 75 mg capsule,extended 75 mg PO BEDTIME 06/19/22 08/25/22 08/24/22 History release 24 hr docusate sodium 100 mg capsule 100 mg PO BID PRN Constipation 06/24/22 08/25/22 08/24/22 History (Colace) acetaminophen 500 mg tablet 500 mg PO BEDTIME 07/09/22 08/25/22 Unknown History albuterol sulfate 90 mcg/actuation 2 puff inhalation QID PRN 07/09/22 08/25/22 Unknown History aerosol inhaler (Ventolin HFA) Shortness Of Breath aspirin 81 mg tablet,delayed 81 mg PO BEDTIME 07/09/22 08/25/22 08/24/22 History release insulin detemir U-100 100 unit/mL 8 - 10 unit SUBCUT DAILY PRN blood 07/09/22 08/25/22 Unknown History (3 mL) subcutaneous pen (Levemir sugar FlexPen) insulin lispro 100 unit/mL See Rx Instructions .Route .COMPLEX 07/09/22 08/25/22 Unknown History subcutaneous pen (Humalog KwikPen (U-100) Insulin) nitroglycerin 0.4 mg sublingual 0.4 mg sublingual Q5M PRN Chest 07/09/22 08/25/22 Unknown History tablet (Nitrostat) Pain tizanidine 4 mg tablet 4 mg PO BEDTIME 07/09/22 08/25/22 Unknown History cholecalciferol (vitamin D3) 125 125 mcg PO DAILY 08/06/22 08/25/22 08/24/22 History mcg (5,000 unit) capsule furosemide 40 mg tablet (Lasix) 40 mg PO DIRECTED 08/06/22 08/25/22 08/24/22 History hydralazine 25 mg tablet 75 mg PO TID 08/06/22 08/25/22 08/24/22 History nifedipine 30 mg tablet,extended 90 mg PO DAILY 08/06/22 08/25/22 08/24/22 History release 24 hr pantoprazole 40 mg tablet,delayed 40 mg PO DAILY 08/06/22 08/25/22 08/24/22 History release potassium chloride 10 mEq 10 meq PO DAILY 08/06/22 08/25/22 08/24/22 History tablet,extended release metoprolol succinate 50 mg 50 mg PO QAM 08/25/22 08/25/22 08/24/22 History tablet,extended release 24 hr Allergies Allergy/AdvReac Type Severity Reaction Status Date / Time cefuroxime [From Ceftin] Allergy ALGY-Rash Verified 08/25/22 13:45 cephalexin [From Keflex] Allergy ALGY-Rash Verified 08/25/22 13:45 hydroxyzine [From Vistaril] Allergy ALGY-Anaphy Verified 08/25/22 13:45 laxis Penicillins Allergy ALGY-Redness Verified 08/25/22 13:45 of Skin prochlorperazine Allergy ALGY-Anaphy Verified 08/25/22 13:45 [From Compazine] laxis promethazine [From Phenergan] Allergy ALGY-Anaphy Verified 08/25/22 13:45 laxis venom-honey bee Allergy ALGY-Anaphy Verified 08/25/22 13:45 laxis simvastatin [From Zocor] AdvReac ADR-Heartbu Verified 08/25/22 13:45 rn Current Medications Generic Name Dose Route Start Last Admin Trade Name Freq PRN Reason Stop Dose Admin Acetaminophen 500 mg 08/25/22 21:00 08/25/22 21:14 Acetaminophen 500 Mg Tablet PO 500 mg BEDTIME YASMANI Administration Aspirin 81 mg 08/25/22 21:00 08/25/22 21:13 Aspirin 81 Mg Ec Tablet PO 81 mg BEDTIME YASMANI Administration Atorvastatin Calcium 40 mg 08/25/22 21:00 08/25/22 21:13 Atorvastatin 40 Mg Tablet PO 40 mg BEDTIME YASMANI Administration Furosemide 40 mg 08/25/22 18:16 08/26/22 04:52 Furosemide 10 Mg/Ml Sdv 4ml IVP 40 mg Q12H YASMANI Administration Heparin Sodium (Porcine) 0 unit 08/25/22 12:35 08/25/22 13:50 Heparin 5,000 Unit/Ml Inj 1 Ml IV 3,100 unit PRN PRN Administration Heparin weight-base protocol Protocol Hydralazine HCl 75 mg 08/25/22 21:00 08/25/22 21:13 Hydralazine 25 Mg Tablet PO 75 mg TID YASMANI Administration Heparin Sodium/Sodium Chloride 25,000 unit in 500 mls @ 0 mls/hr 08/25/22 12:45 08/26/22 04:53 Heparin Drip IV 12.25 unit/kg/hr .Q0M YASMANI 15 mls/hr Titration Protocol Per Protocol Insulin Glargine 6 unit 08/25/22 21:00 08/25/22 21:14 Insulin Glargine 100 Units/1 Ml SUBCUT 6 unit BEDTIME YASMANI Administration Insulin Human Lispro 0 unit 08/25/22 21:00 08/25/22 21:14 Insulin Lispro 100 Unit/1 Ml SUBCUT Not Given BEDTIME YASMANI Protocol Insulin Human Lispro 0 unit 08/25/22 18:16 08/25/22 18:51 Insulin Lispro 100 Unit/1 Ml SUBCUT 2 unit TIDWM YASMANI Administration Protocol Isosorbide Mononitrate 60 mg 08/25/22 18:16 08/25/22 18:51 Isosorbide Mononitrate Er 60 Mg Tablet PO 60 mg BID YASMANI Administration Metoprolol Succinate 50 mg 08/26/22 06:00 08/26/22 04:53 Metoprolol Succinate Er (24 Hr) 50 Mg Tablet PO 50 mg QAM YASMANI Administration Tizanidine HCl 4 mg 08/25/22 21:00 08/25/22 21:13 Tizanidine 4 Mg Tablet PO 4 mg BEDTIME YASMANI Administration Venlafaxine HCl 150 mg 08/25/22 21:00 08/25/22 21:13 Venlafaxine Er (24hr) 150 Mg Capsule PO 150 mg BEDTIME YASMANI Administration PFSH Acute PFSH: Medical History Anxiety ASHD (arteriosclerotic heart disease) Carotid arterial disease CHF (congestive heart failure) Chronic kidney disease Clostridioides difficile infection (07/2022) Colon polyps COPD (chronic obstructive pulmonary disease) Diabetes mellitus Dyslipidemia Eczema Graves disease History of CVA (cerebrovascular accident) History of skin cancer HTN (hypertension) Hypertensive urgency Hyperthyroidism Insomnia PAD (peripheral artery disease) Pneumonia due to COVID-19 virus (~06/2022) Surgical History History of cardiac catheterization 06/25/2022 Left main artery: Short, patent. Left circumflex artery: Has patent stents, no significant stenosis. LAD:Occluded in the midsegment. RCA: Known occluded. Not injected. SVG to diagonal artery and SVG to RCA are known occluded. Not injected. LOVETT to LAD: Patent. Coronary anatomy unchanged compared to before. History of coronary artery stent placement History of endovascular stent graft for abdominal aortic aneurysm (AAA) History of renal stent Hx of local excision of skin lesion (09/16/20) Left forearm x2 S/P CABG (coronary artery bypass graft) twice, last in 2004 S/P cataract surgery S/P cholecystectomy S/P hysterectomy with oophorectomy S/P skin and subcutaneous tissue surgery Status post colonoscopy (09/16/20) Status post insertion of iliac artery stent Family History Sister Mark's disease Sister No problems noted. Mother No problems noted. Other Anesthesia complication Social History Smoking and tobacco status: former smoker Alcohol intake: current Alcohol intake frequency: holidays/special occasions only Vitals/I&O/Wt Last Vital Signs Temp 98.7 F 08/26/22 04:00 Pulse 90 08/26/22 04:42 Resp 13 08/26/22 04:00 BP 135/83 08/26/22 04:00 Pulse Ox 96 08/26/22 04:00 O2 Del Method 08/26/22 04:00 08/25/22 08/26/22 08/26/22 22:59 06:59 14:59 Intake Total 240 / 240 252.733 / 492.733 Output Total 300 / 300 500 / 800 Balance -60 / -60 -247.267 / -307.267 Weight last 48 hrs Weight 139 lb 8 oz Weight 142 lb 8 oz Weight 135 lb Physical Exam Narrative: GENERAL: Patient is alert, awake and oriented x3. [] NECK: No jugular vein distension. [] HEENT: No cyanosis. No icterus. No pallor. [] HEART: Regular S1 and S2. No murmur, rub or gallop. [] LUNGS: Diminished breath sounds bilaterally, has mild crackles CENTRAL NERVOUS SYSTEM: Grossly nonfocal. [] EXTREMITIES: Lower extremities with 1+ edema bilaterally. Data 08/26/22 03:27 08/26/22 03:27 A&P Assessment and plan (1) PAD (peripheral artery disease): (2) Chronic kidney disease: (3) CHF (congestive heart failure): (4) NSTEMI (non-ST elevated myocardial infarction): (5) CAD (coronary artery disease): (6) HTN (hypertension): (7) Dyslipidemia: (8) Diabetes mellitus: Plan Patient has presented with chest pain symptoms and troponins trended up significantly. Given her CKD, I discussed with patient all possible options including invasive coronary angiogram versus medical therapy. She wants to proceed with medical therapy. Continue dual antiplatelet therapy with an aspirin and Plavix. Continue heparin drip for 48 hours. Gentle IV diuresis. Close monitoring of renal function. Echocardiogram performed that showed slightly decreased LV systolic function compared to before and EF is 30 to 35% Thank you for involving us with care of this patient. We will continue to follow. Please call with questions. Consult Attestations Medical Necessity Statement: Care expected to cross 2 midnights. Coding Level of Care Code Acute Code for [facility] Fwd Diagnoses PAD (peripheral artery disease) I73.9 Chronic kidney disease N18.9 CHF (congestive heart failure) I50.9 NSTEMI (non-ST elevated myocardial infarction) I21.4 CAD (coronary artery disease) I25.10 HTN (hypertension) I10 Dyslipidemia E78.5 Diabetes mellitus E11.9
[2022-08-26] MEDS: insulin lispro 100 unit/1 mL SUBCUT ×3 (08:10→20:57)
[2022-08-26] MEDS: clopidogrel 75 mg Tablet PO (10:18)
[2022-08-26] MEDS: NIFEdipine ER (24 hr) 30 mg Tablet 90 MG PO (10:18)
[2022-08-26] MEDS: isosorbide mononitrate ER 60 mg Tablet PO ×2 (10:19→17:44)
[2022-08-26] MEDS: hyDRALAzine 25 mg Tablet 75 MG PO ×3 (10:19→20:09)
[2022-08-26] MEDS: cholecalciferol (vitamin D3) 1,000 unit Tablet 1000 UNIT PO (10:20)
[2022-08-26] MEDS: methIMAzole 5 MG Tablet PO (10:20)
[2022-08-26] MEDS: potassium chloride ER 10 mEq Tablet PO (10:21)
[2022-08-26 11:17] LABS: Glucose Point of Care 153 mg/dL (70-110)
--- NOTE | 2022-08-26 13:49 | P.PN_ITS ---
Subjective Subjective: No new complaints today. Evaluated by cardiology. Continue on heparin drip. Plans for conservative management. Medications: Reviewed: Yes Vitals/I&O/Wt Last Vital Signs Temp 99.5 F 08/26/22 11:51 Pulse 97 08/26/22 12:02 Resp 29 H 08/26/22 12:02 BP 168/88 08/26/22 12:02 Pulse Ox 98 08/26/22 12:02 O2 Del Method 08/26/22 08:00 08/25/22 08/26/22 08/26/22 22:59 06:59 14:59 Intake Total 240 / 240 252.733 / 492.733 600 / 600 Output Total 300 / 300 500 / 800 Balance -60 / -60 -247.267 / -307.267 600 / 600 Weight last 48 hrs Weight 63.276 kg Weight 64.637 kg Weight 61.235 kg Physical Exam Narrative: General: No acute distress, AO x3 HEENT: PERRLA, pupils bilaterally equal and reactive, pallors not present Chest: Normal vesicular breath sounds, no added sounds, equal good air entry bilaterally CVS: S1-S2 regular, no murmurs, no tachycardia, no gallops, no rubs Abdomen: Soft, nontender, no organomegaly, bowel sounds present Neuro: No focal deficits, no facial deformity, AO x3, power 5/5 in all limbs Data 08/26/22 03:27 08/26/22 03:27 A&P Assessment and plan (1) NSTEMI (non-ST elevated myocardial infarction): In a patient with known coronary artery disease status post multiple prior interventions including bypass surgery x2 and stent placements. Last catheterization was in June of this year without many areas that might be amenable to further intervention. This episode does not appear to have been brought on by flash pulmonary edema as most of the more recent episodes have been making it standout from available history. She reports compliance with medications other than today. Pain was relieved with nitroglycerin. Chronically on aspirin, Plavix, statin, nitrates and beta-blockade (2) Congestive heart failure: Acute on chronic systolic/reduced ejection fraction CHF with EF at 35 to 40% on last echocardiogram performed in June of this year demonstrating severe hypokinesis of inferior and inferior lateral watters with grade 1 diastolic dysfun ction. From available history patient takes diuretics based on weight fluctuations rather than scheduled. (3) HTN (hypertension): Secondary hypertension with hypertensive urgency. She does report not taking her usual medications this morning, though review of records shows that she often presents similarly during acute events. She is chronically on multiple medications for blood pressure control including as needed diuretics, hydralazine, isosorbide, metoprolol, nifedipine. I will note she is also on venlafaxine chronically that may be contributing factor at times. (4) Itching of both hands: In a patient with reported history of eczema. The itching appears to be relatively recent in onset. She has been doing some cleaning around the house. I do wonder if its not secondary to exposure to something. Have significant azotemia presently. Skin is dry. With isolation to hands and feet neuropathy is also a consideration. Seems less likely to be parasitic in nature with distribution though certainly within the differential. Reported severe allergies to antihistamines limit options for symptom control beyond moisturizing. (5) Diabetes mellitus: Type II, insulin requiring, with chronic kidney disease stage III, unspecified at this time if a or b. On Levemir and lispro chronically. (6) Chronic kidney disease: Stage III, unspecified at this time if a or b. (7) PAD (peripheral artery disease): Has history of renal artery and aortic stents/interventions, known carotid disease (8) Dyslipidemia: On chronic statin therapy (9) Hyperthyroidism: Chronically on methimazole (10) COPD (chronic obstructive pulmonary disease): Chronic, not currently acute, on as needed oxygen and breathing treatments/inhalers as needed, no longer smokes Plan Plan: continue heparin drip for medical management for the next 48 hrs Attestations Medical Necessity Statement*: danielle gtt, medical mgmt of NSTEMI Coding Level of Care Code Acute Code for g Fwd Diagnoses NSTEMI (non-ST elevated myocardial infarction) I21.4 Congestive heart failure I50.9 HTN (hypertension) I10 Itching of both hands L29.9 Diabetes mellitus E11.9 Chronic kidney disease N18.9 PAD (peripheral artery disease) I73.9 Dyslipidemia E78.5 Hyperthyroidism E05.90 COPD (chronic obstructive pulmonary disease) J44.9
[2022-08-26 16:18] LABS: Glucose Point of Care 126 mg/dL (70-110)
[2022-08-26 16:24] LABS: Partial Thromboplastin Time 63.8 SECONDS (23.9-36.7)
[2022-08-26] MEDS: tizanidine 4 mg Tablet PO (20:09)
[2022-08-26] MEDS: venlafaxine ER (24HR) 150 mg Capsule PO (20:09)
[2022-08-26] MEDS: atorvastatin 40 mg Tablet PO (20:09)
[2022-08-26] MEDS: aspirin 81 mg EC Tablet PO (20:09)
[2022-08-26] MEDS: acetaminophen 500 mg Tablet PO (20:09)
[2022-08-26 20:24] LABS: Glucose Point of Care 182 mg/dL (70-110)
[2022-08-26] MEDS: insulin glargine 100 units/1 mL 6 UNIT SUBCUT (20:57)
[2022-08-26] MEDS: heparin drip 25,000 UNIT/500 ML PREMIX 15 UNIT IV (21:37)
[2022-08-26] MEDS: ipratropium-albuterol 3 mL Neb INHALATION (21:38)
[2022-08-27] VITALS (9 sets, daily range): BP systolic 118–148; BP diastolic 55–80; PULSE 50–80; RESP 14–20; TEMP 36.6–37.2; O2SAT 92–96
[2022-08-27] MEDS: FUROsemide 10 mg/mL SDV 4mL 40 MG IVP ×2 (03:43→17:56)
[2022-08-27] MEDS: metoprolol succinate ER (24 HR) 50 mg Tablet PO (03:43)
[2022-08-27 04:13] LABS: Partial Thromboplastin Time 69.7 SECONDS (23.9-36.7)
[2022-08-27 06:51] LABS: Glucose Point of Care 126 mg/dL (70-110)
[2022-08-27] MEDS: clopidogrel 75 mg Tablet PO (09:35)
[2022-08-27] MEDS: NIFEdipine ER (24 hr) 30 mg Tablet 90 MG PO (09:35)
[2022-08-27] MEDS: potassium chloride ER 10 mEq Tablet PO (09:35)
[2022-08-27] MEDS: hyDRALAzine 25 mg Tablet 75 MG PO ×3 (09:35→20:45)
[2022-08-27] MEDS: cholecalciferol (vitamin D3) 1,000 unit Tablet 1000 UNIT PO (09:35)
[2022-08-27] MEDS: isosorbide mononitrate ER 60 mg Tablet PO ×2 (09:36→17:57)
[2022-08-27] MEDS: methIMAzole 5 MG Tablet PO (09:36)
[2022-08-27 10:55] LABS: Glucose Point of Care 198 mg/dL (70-110)
[2022-08-27] MEDS: insulin lispro 100 unit/1 mL SUBCUT ×2 (11:42→21:51)
--- NOTE | 2022-08-27 11:57 | P.PN_ITS ---
Subjective Subjective: Patient is doing well. no chest pain. Vitals/I&O/Wt Last Vital Signs Temp 98.5 F 08/27/22 08:00 Pulse 67 08/27/22 08:00 Resp 16 08/27/22 08:00 BP 146/74 08/27/22 08:00 Pulse Ox 95 08/27/22 08:00 O2 Del Method 08/27/22 08:00 O2 Flow Rate 3 08/26/22 20:57 08/26/22 08/27/22 08/27/22 22:59 06:59 14:59 Intake Total 847.267 / 1447.267 240 / 1687.267 480 / 480 Output Total 1000 / 1000 400 / 1400 Balance -152.733 / 447.267 -160 / 287.267 480 / 480 Weight last 48 hrs Weight 140 lb 8 oz Weight 139 lb 8 oz Weight 142 lb 8 oz Physical Exam Narrative: GENERAL: Patient is alert, awake and oriented x3. [] NECK: No jugular vein distension. [] HEENT: No cyanosis. No icterus. No pallor. [] HEART: Regular S1 and S2. No murmur, rub or gallop. [] LUNGS: Diminished breath sounds bilaterally, has mild crackles CENTRAL NERVOUS SYSTEM: Grossly nonfocal. [] EXTREMITIES: Lower extremities with 1+ edema bilaterally. Data 08/26/22 03:27 08/26/22 03:27 A&P Assessment and plan (1) PAD (peripheral artery disease): (2) Chronic kidney disease: (3) CHF (congestive heart failure): (4) NSTEMI (non-ST elevated myocardial infarction): (5) CAD (coronary artery disease): (6) HTN (hypertension): (7) Dyslipidemia: (8) Diabetes mellitus: Plan Continue heparin for 48 hours for medical management of NSTEMI. Continue dual antiplatelet therapy with an aspirin and Plavix. Monitor renal function. Gentle diuresis Echocardiogram performed that showed slightly decreased LV systolic function compared to before and EF is 30 to 35% Thank you for involving us with care of this patient. We will continue to follow. Please call with questions. Attestations Medical Necessity Statement*: Care expected to cross 2 midnights. Coding Level of Care Code Acute Code for [facility] Diagnoses PAD (peripheral artery disease) I73.9 Chronic kidney disease N18.9 CHF (congestive heart failure) I50.9 NSTEMI (non-ST elevated myocardial infarction) I21.4 CAD (coronary artery disease) I25.10 HTN (hypertension) I10 Dyslipidemia E78.5 Diabetes mellitus E11.9
[2022-08-27 16:46] LABS: Partial Thromboplastin Time 57.2 SECONDS (23.9-36.7)
[2022-08-27 17:21] LABS: Glucose Point of Care 111 mg/dL (70-110)
--- NOTE | 2022-08-27 17:56 | PM.PN ---
Subjective Subjective: No chest pain while at rest. States that she gets a little winded when she attempts to get out of bed and walk around. Hemodynamically stable. Continues to be on a heparin drip. No acute interim events. Medications: Reviewed: Yes Vitals/I&O/Wt Last Vital Signs Temp 99.0 F 08/27/22 15:35 Pulse 79 08/27/22 15:35 Resp 17 08/27/22 15:35 BP 127/63 08/27/22 15:35 Pulse Ox 96 08/27/22 15:35 O2 Del Method 08/27/22 15:35 O2 Flow Rate 3 08/26/22 20:57 08/27/22 08/27/22 08/27/22 06:59 14:59 22:59 Intake Total 240 / 1687.267 840 / 840 480 / 1320 Output Total 400 / 1400 1000 / 1000 Balance -160 / 287.267 -160 / -160 480 / 320 Weight last 48 hrs Weight 63.73 kg Weight 63.276 kg Weight 64.637 kg Physical Exam Narrative: General: No acute distress, AO x3 HEENT: PERRLA, pupils bilaterally equal and reactive, pallors not present Chest: Normal vesicular breath sounds, no added sounds, equal good air entry bilaterally CVS: S1-S2 regular, no murmurs, no tachycardia, no gallops, no rubs Abdomen: Soft, nontender, no organomegaly, bowel sounds present Neuro: No focal deficits, no facial deformity, AO x3, power 5/5 in all limbs Data 08/26/22 03:27 08/26/22 03:27 A&P Assessment and plan (1) NSTEMI (non-ST elevated myocardial infarction): In a patient with known coronary artery disease status post multiple prior interventions including bypass surgery x2 and stent placements. Last catheterization was in June of this year without many areas that might be amenable to further intervention. This episode does not appear to have been brought on by flash pulmonary edema as most of the more recent episodes have been making it standout from available history. She reports compliance with medications other than today. Pain was relieved with nitroglycerin. Chronically on aspirin, Plavix, statin, nitrates and beta-blockade (2) Congestive heart failure: Acute on chronic systolic/reduced ejection fraction CHF with EF at 35 to 40% on last echocardiogram performed in June of this year demonstrating severe hypokinesis of inferior and inferior lateral watters with grade 1 diastolic dysfunction. From available history patient takes diuretics based on weight fluctuations rather than scheduled. (3) HTN (hypertension): Secondary hypertension with hypertensive urgency. She does report not taking her usual medications this morning, though review of records shows that she often presents similarly during acute events. She is chronically on multiple medications for blood pressure control including as needed diuretics, hydralazine, isosorbide, metoprolol, nifedipine. I will note she is also on venlafaxine chronically that may be contributing factor at times. (4) Itching of both hands: In a patient with reported history of eczema. The itching appears to be relatively recent in onset. She has been doing some cleaning around the house. I do wonder if its not secondary to exposure to something. Have significant azotemia presently. Skin is dry. With isolation to hands and feet neuropathy is also a consideration. Seems less likely to be parasitic in nature with distribution though certainly within the differential. Reported severe allergies to antihistamines limit options for symptom control beyond moisturizing. (5) Diabetes mellitus: Type II, insulin requiring, with chronic kidney disease stage III, unspecified at this time if a or b. On Levemir and lispro chronically. (6) Chronic kidney disease: Stage III, unspecified at this time if a or b. (7) PAD (peripheral artery disease): Has history of renal artery and aortic stents/interventions, known carotid disease (8) Dyslipidemia: On chronic statin therapy (9) Hyperthyroidism: Chronically on methimazole (10) COPD (chronic obstructive pulmonary disease): Chronic, not currently acute, on as needed oxygen and breathing treatments/inhalers as needed, no longer smokes Plan Plan for today: Continued medical management, heparin drip ongoing, will plan to discontinue tomorrow after about 48 hours. Additionally transition IV to p.o. Lasix. Lower extremity edema is much improved today. DC IV Lasix 40 twice daily, changed to 60 p.o. twice daily. Clinically appears to be euvolemic today. Attestations Medical Necessity Statement*: Heparin drip, transition IV to p.o. diuretics and monitor for response Coding Level of Care Code Acute Code for [facility] Diagnoses NSTEMI (non-ST elevated myocardial infarction) I21.4 Congestive heart failure I50.9 HTN (hypertension) I10 Itching of both hands L29.9 Diabetes mellitus E11.9 Chronic kidney disease N18.9 PAD (peripheral artery disease) I73.9 Dyslipidemia E78.5 Hyperthyroidism E05.90 COPD (chronic obstructive pulmonary disease) J44.9
[2022-08-27] MEDS: aspirin 81 mg EC Tablet PO (20:46)
[2022-08-27] MEDS: acetaminophen 500 mg Tablet PO (20:46)
[2022-08-27] MEDS: venlafaxine ER (24HR) 150 mg Capsule PO (20:46)
[2022-08-27] MEDS: tizanidine 4 mg Tablet PO (20:46)
[2022-08-27] MEDS: atorvastatin 40 mg Tablet PO (20:46)
[2022-08-27 21:36] LABS: Glucose Point of Care 215 mg/dL (70-110)
[2022-08-27] MEDS: insulin glargine 100 units/1 mL 6 UNIT SUBCUT (21:51)
[2022-08-27 23:09] LABS: Partial Thromboplastin Time 55.6 SECONDS (23.9-36.7)
[2022-08-28] VITALS: BP 111/50; PULSE 56; RESP 18; TEMP 36.8; O2SAT 94
[2022-08-28 04:00] VITALS: BP 108/56; PULSE 79; RESP 21; TEMP 36.7; O2SAT 96
[2022-08-28 05:36] LABS: Basophils # 0.1 10^3/uL (0.0-0.1); Basophils % 0.6 %; Eosinophils # 0.6 10^3/uL (0.0-0.8); Eosinophils % 6.8 %; Hematocrit 33.5 % (37.0-47.0); Hemoglobin 10.3 g/dL (11.5-15.3); Lymphocytes # 3.6 10^3/uL (0.8-4.8); Lymphocytes % 42.4 %; Mean Corpuscular HGB Conc 30.7 g/dL (30.0-36.0); Mean Corpuscular Hemoglobin 27.7 pg (28.0-34.0); Mean Corpuscular Volume 90.1 fl (81-99); Mean Platelet Volume 10.9 fL (7.4-10.4); Monocytes # 0.6 10^3/uL (0.2-0.9); Monocytes % 6.7 %; Neutrophils # 3.71 10^3/uL (1.8-7.7); Neutrophils % 43.3 %; Nucleated Red Blood Cells % 0 %; Platelet Count 278 10^3/cmm (130-400); Red Blood Count 3.72 10^6/uL (4.1-5.3); Red Cell Distribution Width 14.6 % (12.1-15.1); White Blood Count 8.6 10^3/uL (4.0-10.0)
[2022-08-28 05:38] VITALS: PULSE 69
[2022-08-28 05:38] LABS: Partial Thromboplastin Time 57.2 SECONDS (23.9-36.7)
[2022-08-28 05:43] LABS: Alanine Aminotransferase 7 U/L (0-33); Albumin Level 2.7 g/dL (3.5-5.2); Alkaline Phosphatase 97 U/L (35-105); Anion Gap 14.5 (5-19); Aspartate Amino Transferase 19 U/L (0-32); Blood Urea Nitrogen 30 mg/dL (8-23); Calcium 8.8 mg/dL (8.5-10.5); Carbon Dioxide 24 mmol/L (22-29); Chloride 106 mmol/L (98-107); Globulin 2.8 g/dL (1.3-4.6); Glucose 75 mg/dL (65-115); Osmolality Calculated 297 mOsm/kg (285-295); Potassium 3.5 mmol/L (3.5-5.1); Sodium 141 mmol/L (136-145); Total Bilirubin 0.2 mg/dL (0.15-1.2); Total Protein 5.5 g/dL (6.6-8.7)
[2022-08-28 06:28] LABS: Glucose Point of Care 94 mg/dL (70-110)
[2022-08-28] MEDS: heparin drip 25,000 UNIT/500 ML PREMIX 15 UNIT IV (06:32)
[2022-08-28 08:00] VITALS: BP 116/58; PULSE 78; PULSE 80; RESP 18; TEMP 36.9; O2SAT 95
--- NOTE | 2022-08-28 08:55 | P.PN_ITS ---
Subjective Subjective: Patient is doing well. No chest pain Vitals/I&O/Wt Last Vital Signs Temp 98.4 F 08/28/22 08:00 Pulse 78 08/28/22 08:00 Resp 21 H 08/28/22 04:00 BP 116/58 08/28/22 08:00 Pulse Ox 95 08/28/22 08:00 O2 Del Method 08/28/22 08:00 O2 Flow Rate 3 08/26/22 20:57 08/27/22 08/28/22 08/28/22 22:59 06:59 14:59 Intake Total 930 / 1770 693.75 / 2463.75 Output Total 540 / 1540 300 / 1840 Balance 390 / 230 393.75 / 623.75 Weight last 48 hrs Weight 140 lb 1.6 oz Weight 140 lb 8 oz Physical Exam Narrative: GENERAL: Patient is alert, awake and oriented x3. [] NECK: No jugular vein distension. [] HEENT: No cyanosis. No icterus. No pallor. [] HEART: Regular S1 and S2. No murmur, rub or gallop. [] LUNGS: Diminished breath sounds bilaterally, has mild crackles CENTRAL NERVOUS SYSTEM: Grossly nonfocal. [] EXTREMITIES: Lower extremities with 1+ edema bilaterally. Data 08/28/22 04:22 08/28/22 04:22 A&P Assessment and plan (1) PAD (peripheral artery disease): (2) Chronic kidney disease: (3) CHF (congestive heart failure): (4) NSTEMI (non-ST elevated myocardial infarction): (5) CAD (coronary artery disease): (6) HTN (hypertension): (7) Dyslipidemia: (8) Diabetes mellitus: Plan Patient will complete 48 hours of anticoagulation. Continue dual antiplatelet therapy with an aspirin and Plavix. Outpatient renal function monitoring Echocardiogram performed that showed slightly decreased LV systolic function compared to before and EF is 30 to 35% Thank you for involving us with care of this patient. Patient is stable to be discharged from cardiology standpoint. Please call with questions. Attestations Medical Necessity Statement*: Care expected to cross 2 midnights. Coding Level of Care Code Acute Code for [facility] Diagnoses PAD (peripheral artery disease) I73.9 Chronic kidney disease N18.9 CHF (congestive heart failure) I50.9 NSTEMI (non-ST elevated myocardial infarction) I21.4 CAD (coronary artery disease) I25.10 HTN (hypertension) I10 Dyslipidemia E78.5 Diabetes mellitus E11.9
[2022-08-28] MEDS: cholecalciferol (vitamin D3) 1,000 unit Tablet 1000 UNIT PO (09:02)
[2022-08-28] MEDS: clopidogrel 75 mg Tablet PO (09:02)
[2022-08-28] MEDS: NIFEdipine ER (24 hr) 30 mg Tablet 90 MG PO (09:02)
[2022-08-28] MEDS: potassium chloride ER 10 mEq Tablet PO (09:02)
[2022-08-28] MEDS: methIMAzole 5 MG Tablet PO (09:02)
[2022-08-28] MEDS: isosorbide mononitrate ER 60 mg Tablet PO (09:02)
[2022-08-28] MEDS: FUROsemide 40 mg Tablet 60 MG PO (09:13)
--- NOTE | 2022-08-28 09:15 | PC.SOCIAL ---
Pg 2 IMM Explained to pt Pg 2 IMM. No questions voiced. Provided pt a copy. Initialed, dated, timed a copy & placed in chart.
[2022-08-28 11:27] LABS: Glucose Point of Care 153 mg/dL (70-110)
[2022-08-28 12:00] VITALS: BP 153/77; PULSE 78; RESP 20; O2SAT 97
[2022-08-28] MEDS: insulin lispro 100 unit/1 mL SUBCUT (12:49)
[2022-08-28 14:26] VITALS: BP 153/77; PULSE 78; RESP 20; O2SAT 97
--- NOTE | 2022-08-28 18:20 | PM.DCS ---
Discharge Providers Date of Admission: 08/25/22 16:48 Date of Discharge: August 28, 2022 Attending Provider at Admission: Nuris Price MD Attending Provider at Discharge: Misa Landry MD Primary Care Provider: Jocelyne Kirby Diagnoses at Discharge Discharge Diagnosis (1) PAD (peripheral artery disease): Status: Chronic (2) Chronic kidney disease: Status: Chronic (3) CHF (congestive heart failure): Status: Chronic (4) NSTEMI (non-ST elevated myocardial infarction): Status: Acute (5) CAD (coronary artery disease): Status: Chronic (6) HTN (hypertension): Status: Chronic (7) Dyslipidemia: Status: Chronic (8) Diabetes mellitus: Status: Chronic Reason for Visit Reason for Visit: sob, chest pain Hospital Course Hospital Course Romi Yuan is a 71 year old female with past medical history of hypertension, hyperlipidemia, diabetes, CAD s/p CABG presented to hospital with chest pain not relieved with nitro sublingually. Since being in the hospital, she is chest pain-free, however has had some dyspnea with exertion.? Her troponin tredned up from 134 at baseline to 276 at 6 hours. She has significant CKD. Also had multiple admissions with recurrent pulmonary edema.? EKG showed normal sinus rhythm without significant ischemic changes.Given her CKD, cardiology discussed with patient all possible options including invasive coronary angiogram versus medical therapy.? She elected to proceed with medical therapy. She was treated with dual antiplatelet therapy with an aspirin and Plavix, heparin drip for over 48 hours and Gentle IV diuresis with Close monitoring of renal function. Echocardiogram performed that showed slightly decreased LV systolic function compared to before and EF is 30 to 35%. Overnight on 08/28 she developed transient episode of hypotension after receiving hydralazine. In the mornign her BP is controlled at 150/77 at time of discharge. Dose of hydralazine has been reduced at discharge for this reason. She did not have any recurrence of chest pain. She is still undecided about whether she would uli to pursue ischemic evaluation with coronary angiogram down the line. Encouraged her to discuss this further at her outpatient cardiology appt and discuss all risks and benefits. Physical Exam Narrative: GEN: Awake, alert and oriented, no acute distress CVS: S1S2 N RS: CTA B/L Abd: Soft, nt/nd , bs+ RADIO TOWER TECHNICIAN: no focal neuro deficits EXT: no edema ,clubbing or cyanosis Discharge Data Studies Completed and Pending Completed Studies During Hospitalization Category Date Time Status XR chest 1V portable [id number] Stat Exams 08/25/22 11:43 Completed CV. echo complete* [id number] Routine Ultrasound 08/25/22 18:16 Completed Radiology Impressions Chest X-Ray 08/25/22 11:43 IMPRESSION: No acute findings. Mild cardiomegaly Laboratory Results WBC 8.6 10^3/uL (4.0-10.0) 08/28/22 04:22 RBC 3.72 10^6/uL (4.1-5.3) L 08/28/22 04:22 Hgb 10.3 g/dL (11.5-15.3) L 08/28/22 04:22 Hct 33.5 % (37.0-47.0) L 08/28/22 04:22 MCV 90.1 fl (81-99) 08/28/22 04:22 MCH 27.7 pg (28.0-34.0) L 08/28/22 04:22 MCHC 30.7 g/dL (30.0-36.0) 08/28/22 04:22 RDW 14.6 % (12.1-15.1) 08/28/22 04:22 Plt Count 278 10^3/cmm (130-400) 08/28/22 04:22 MPV 10.9 fL (7.4-10.4) H 08/28/22 04:22 Neut % (Auto) 43.3 % 08/28/22 04:22 Lymph % (Auto) 42.4 % 08/28/22 04:22 [place] % (Auto) 6.7 % 08/28/22 04:22 Eos % (Auto) 6.8 % 08/28/22 04:22 Baso % (Auto) 0.6 % 08/28/22 04:22 Neut # (Auto) 3.71 10^3/uL (1.8-7.7) 08/28/22 04:22 Lymph # (Auto) 3.6 10^3/uL (0.8-4.8) 08/28/22 04:22 [place] # (Auto) 0.6 10^3/uL (0.2-0.9) 08/28/22 04:22 Eos # (Auto) 0.6 10^3/uL (0.0-0.8) 08/28/22 04:22 Baso # (Auto) 0.1 10^3/uL (0.0-0.1) 08/28/22 04:22 Nucleated RBC % (auto) 0 % 08/28/22 04:22 Nucleated RBCs # 0.0 /100WBC 08/28/22 04:22 PT 13.30 SECONDS (12.1-14.9) 08/25/22 11:44 INR 0.99 (0.8-1.2) 08/25/22 11:44 APTT 57.2 SECONDS (23.9-36.7) H 08/28/22 04:22 Sodium 141 mmol/L (136-145) 08/28/22 04:22 Potassium 3.5 mmol/L (3.5-5.1) 08/28/22 04:22 Chloride 106 mmol/L (98-107) 08/28/22 04:22 Carbon Dioxide 24 mmol/L (22-29) 08/28/22 04:22 Anion Gap 14.5 (5-19) 08/28/22 04:22 BUN 30 mg/dL (8-23) H 08/28/22 04:22 Creatinine 2.0 mg/dL (0.5-0.9) H 08/28/22 04:22 GFR Calculation Not Reportable 08/28/22 04:22 Glucose 75 mg/dL (65-115) 08/28/22 04:22 POC Glucose 153 mg/dL (70-110) H 08/28/22 11:13 Calculated Osmolality 297 mOsm/kg (285-295) H 08/28/22 04:22 Uric Acid 9.6 mg/dL (2.4-5.7) H 08/26/22 03:27 Calcium 8.8 mg/dL (8.5-10.5) 08/28/22 04:22 Phosphorus 3.4 mg/dL (2.5-4.5) 08/26/22 03:27 Magnesium 2.1 mg/dL (1.7-2.3) 08/26/22 03:27 Total Bilirubin 0.2 mg/dL (0.15-1.2) 08/28/22 04:22 AST 19 U/L (0-32) 08/28/22 04:22 ALT 7 U/L (0-33) 08/28/22 04:22 Alkaline Phosphatase 97 U/L (35-105) 08/28/22 04:22 Troponin T Baseline 134 ng/L (0-10) H* 08/25/22 11:55 Troponin T 120 Minute 163.0 ng/L (0-10) H 08/25/22 13:24 Delta Troponin T 29.0 ABS# (0-10) H* 08/25/22 13:24 Troponin T Hi Sens 6Hr 276.9 ng/L (0-10) H 08/25/22 17:38 Troponin T Hi Sens 6Hr Delta 142.9 ng/L (0-12) H* 08/25/22 17:38 NT-Pro-B Natriuret Pep > 06610 pg/mL (0-125) H 08/26/22 03:27 Total Protein 5.5 g/dL (6.6-8.7) L 08/28/22 04:22 Albumin 2.7 g/dL (3.5-5.2) L 08/28/22 04:22 Globulin 2.8 g/dL (1.3-4.6) 08/28/22 04:22 Urine Color Light yellow (Yellow) 08/25/22 19:45 Urine Appearance Hazy (CLEAR) A 08/25/22 19:45 Urine pH 7 (5-7) 08/25/22 19:45 Ur Specific [place] 1.005 (1.005-1.030) 08/25/22 19:45 Urine Protein 3+ (Negative) H 08/25/22 19:45 Urine Glucose (UA) Norm (Normal) 08/25/22 19:45 Urine Ketones Negative (Negative) 08/25/22 19:45 Urine Blood Neg (Negative) 08/25/22 19:45 Urine Nitrate Negative (Negative) 08/25/22 19:45 Urine Bilirubin Neg (Negative) 08/25/22 19:45 Urine Urobilinogen Neg mg/dL (Negative) 08/25/22 19:45 Ur Leukocyte Esterase Negative (Negative) 08/25/22 19:45 Urine RBC None /hpf (0-2) 08/25/22 19:45 Urine WBC 0-4 /hpf (0-5) H 08/25/22 19:45 Ur Squamous Epith Cells 0-4 /hpf (0-5) H 08/25/22 19:45 Amorphous Sediment Not Reportable 08/25/22 19:45 Urine Bacteria None /hpf (NONE) 08/25/22 19:45 Vitals Last Vital Signs Temp 98.4 F 08/28/22 08:00 Pulse 78 08/28/22 14:26 Resp 20 H 08/28/22 14:26 BP 153/77 08/28/22 14:26 Pulse Ox 97 08/28/22 14:26 O2 Del Method 08/28/22 12:00 O2 Flow Rate 3 08/26/22 20:57 Discharge Plan Discharge Patient Disposition: Home Condition: Stable Prescriptions: Continued Anoro Ellipta 62.5-25 mcg/actuation blister with device 1 inh INHALATION DAILY isosorbide mononitrate 60 mg tablet extended release 24 hr 60 mg PO BID venlafaxine [Effexor XR] 150 mg capsule,extended release 24hr 150 mg PO BEDTIME Rx Instructions: TAKE WITH 75 MG Lasix 40 mg tablet 40 mg PO DIRECTED Rx Instructions: 40mg in AM, 20mg in PM IF gain >5# double pantoprazole 40 mg tablet,delayed release (DR/EC) 40 mg PO DAILY cholecalciferol (vitamin D3) 125 mcg (5,000 unit) capsule 125 mcg PO DAILY methimazole 5 mg tablet 5 mg PO DAILY Qty: 30 3RF (DME) Accu-Chek Ana M Plus test strp Strip See Rx Instructions .ROUTE .MEDSUPPLY Qty: 120 3RF Rx Instructions: check blood glucose four times a day tizanidine 4 mg tablet 4 mg PO BEDTIME aspirin 81 mg Tablet,Delayed Release (Dr/Ec) 81 mg PO BEDTIME nitroglycerin [Nitrostat] 0.4 mg Tablet, Sublingual 0.4 mg SUBLINGUAL Q5M PRN (Reason: Chest Pain) Rx Instructions: do not exceed 3 doses per episode insulin lispro [Humalog KwikPen Insulin] 100 unit/mL Insulin Pen See Rx Instructions .ROUTE .COMPLEX Rx Instructions: sliding scale tid prn blood sugar Levemir FlexPen 100 unit/mL (3 mL) Insulin Pen 8 - 10 unit SUBCUT DAILY PRN (Reason: blood sugar) acetaminophen 500 mg Tablet 500 mg PO BEDTIME albuterol sulfate [Ventolin HFA] 90 mcg/actuation Hfa Aerosol Inhaler 2 puff INHALATION QID PRN (Reason: Shortness Of Breath) nifedipine 30 mg tablet extended release 24hr 90 mg PO DAILY clopidogrel [Plavix] 75 mg tablet 75 mg PO DAILY Qty: 60 0RF atorvastatin 40 mg tablet 40 mg PO BEDTIME venlafaxine 75 mg capsule,extended release 24hr 75 mg PO BEDTIME Rx Instructions: TAKE WITH 150 MG acitretin 10 mg capsule 10 mg PO QAM docusate sodium [Colace] 100 mg capsule 100 mg PO BID PRN (Reason: Constipation) potassium chloride 10 mEq tablet extended release 10 meq PO DAILY Rx Instructions: Potassium only with Lasix metoprolol succinate 50 mg tablet extended release 24 hr 50 mg PO QAM Changed hydralazine 25 mg tablet 25 mg PO TID 30 Days Qty: 90 0RF Discharge Orders: Discharge Order (Routine); Ordered 08/28/22 Ordered By: Misa Landry Referrals: Tristin Goldstein M.D [Physician] - 1 month Katherin Win FNP [Nurse Practitioner] - 1 week Jocelyne Kirby PA [Primary Care Provider] - 09/03/22 8:20 am (You have a previously scheduled appointment on 09-03-22 at 8:20 am. Please keep this appointment as your follow up appointment. ) Discharge Diet: Cardiac Discharge Activity: Resume usual activity Patient Instructions: Opioid Safety Discharge Attestations Time Spent in Discharge Care*: greater than 30 min Status at Discharge: Cognitive status at discharge: cognitively intact, Behavioral status at discharge: cooperative, Quality Metrics Clinical Quality Measures [ No reported AMI, CVA or VTE this stay] Coding Level of Care Code Acute Code for [facility] Fwd Diagnoses PAD (peripheral artery disease) I73.9 Chronic kidney disease N18.9 CHF (congestive heart failure) I50.9 NSTEMI (non-ST elevated myocardial infarction) I21.4 CAD (coronary artery disease) I25.10 HTN (hypertension) I10 Dyslipidemia E78.5 Diabetes mellitus E11.9
== END 2022-08-28 15:33 | disposition home or self-care (01) | DRG 280 ==
LOC: ER 14:54 → CSU 16:48
PROVIDERS: Admitting Provider Hospitalist; Emergency Provider Family Medicine; PCP Physician Assistant; Visit Provider Student in an Organized Health Care Education/Training Program
DX: I21.4 Non-ST elevation (NSTEMI) myocardial infarction (principal); I50.33 Acute on chronic diastolic (congestive) heart failure; I13.0 Hypertensive heart and chronic kidney disease with heart failure and stage 1 through stage 4 chronic kidney disease, or unspecified chronic kidney disease; N18.30 Chronic kidney disease, stage 3 unspecified; E11.22 Type 2 diabetes mellitus with diabetic chronic kidney disease; E11.51 Type 2 diabetes mellitus with diabetic peripheral angiopathy without gangrene; E78.5 Hyperlipidemia, unspecified; I25.10 Atherosclerotic heart disease of native coronary artery without angina pectoris; Z95.1 Presence of aortocoronary bypass graft; Z95.5 Presence of coronary angioplasty implant and graft; Z79.82 Long term (current) use of aspirin; Z79.4 Long term (current) use of insulin; Z79.02 Long term (current) use of antithrombotics/antiplatelets; Z99.81 Dependence on supplemental oxygen; F41.9 Anxiety disorder, unspecified; Z86.73 Personal history of transient ischemic attack (TIA), and cerebral infarction without residual deficits; E05.00 Thyrotoxicosis with diffuse goiter without thyrotoxic crisis or storm; Z87.01 Personal history of pneumonia (recurrent); Z86.16 Personal history of COVID-19; I16.0 Hypertensive urgency; L30.9 Dermatitis, unspecified; Z87.891 Personal history of nicotine dependence
CPT/HCPCS: 36415; 36416; 71045; 80053; 81001; 82962; 83735; 83880; 84100; 84484; 84550; 85025; 85610; 85730; 93005; 93306; 94640; 96365; 96366; 96372; 96375; 96376; 99291; J1644; J1815; J1940

== ENCOUNTER → 2022-09-07 14:46 | Outpatient (BNVA) | payer MEDICARE, MEDICAID, SELFPAY | PROVIDERS: PCP Physician Assistant; Visit Provider Nurse Practitioner Family | DX: I25.10 Atherosclerotic heart disease of native coronary artery without angina pectoris (principal); I13.0 Hypertensive heart and chronic kidney disease with heart failure and stage 1 through stage 4 chronic kidney disease, or unspecified chronic kidney disease; E11.22 Type 2 diabetes mellitus with diabetic chronic kidney disease; N18.9 Chronic kidney disease, unspecified; I50.9 Heart failure, unspecified; Z87.891 Personal history of nicotine dependence; Z79.4 Long term (current) use of insulin; Z95.1 Presence of aortocoronary bypass graft | CPT/HCPCS: 99214 ==

== ENCOUNTER 2022-09-20 06:29 | Emergency (ER) | payer MEDICARE, MEDICAID, SELFPAY ==
[2022-09-20 06:30] VITALS: BP 205/93; PULSE 85; RESP 18; TEMP 36.6; O2SAT 97; BMI 20.2
--- NOTE | 2022-09-20 06:34 | ECG_ITS ---
Test Date: 2022-09-20 Pat Name: Romi Yuan Department: Room: Gender: Female Aligning Checker: : 1950 Requested By: Florin Keyes Order Number: [id number] Tessa MD: Tristin Goldstein M.D. Measurements Intervals [place] Rate: 86 P: -33 [place]: 139 QRS: -41 QRSD: 111 T: 109 QT: 397 QTc: 475 Interpretive Statements SINUS RHYTHM LEFT AXIS DEVIATION [QRS AXIS < -30] INCOMPLETE RIGHT BUNDLE BRANCH BLOCK [90+ ms QRS DURATION, TERMINAL R IN V1/V2, 40+ ms S IN I/aVL/V4/V5/V6] ST DEVIATION AND MODERATE T-WAVE ABNORMALITY, CONSIDER LATERAL ISCHEMIA [-0.1+ mV T-WAVE IN I/aVL/V5/V6] Compared to ECG 08/25/2022 17:43:09 Incomplete right bundle-branch block now present Possible ischemia now present Sinus tachycardia no longer present T-wave abnormality still present Electronically Signed On 09-20-2022 11:49:15 CDT by Tristin Goldstein M.D. [id number]
--- NOTE | 2022-09-20 06:34 | XRR_ITS ---
PROCEDURE INFORMATION: Exam: XR Chest Exam date and time: 09/20/2022 6:39 AM Age: 71 years old Clinical indication: Pain; Angina pectoris; Prior surgery; Surgery type: Heart; Additional info: Cp TECHNIQUE: Imaging protocol: Radiologic exam of the chest. Views: 1 view. COMPARISON: CR XR chest 1V portable [id number] 07/12/2022 5:16 AM FINDINGS: Lungs: The lung parenchyma is clear. Pleural spaces: No pneumothorax. No pleural effusion. Heart/Mediastinum: Postsurgical changes in mediastinum. The heart is enlarged for size, similar to prior exam. Bones/joints: Median sternotomy wires noted. XR/XR chest 1V portable [id number] IMPRESSION: Stable cardiomegaly.
--- NOTE | 2022-09-20 06:34 | ED_ITS ---
HPI - Chest Pain General: Chief Complaint: Chest Pain Stated Complaint: STEMI Time Seen by Provider: 09/20/22 06:30 History of Present Illness: Ms. Yuan is a 71-year-old lady with complex past medical history including arterial disease, COPD, insulin-dependent diabetes, hypertension, hyperlipidemia presenting to the emergency department for STEMI. STEMI activation by [facility] prior to arrival. Patient reports being at her baseline health, she woke up with chest pain in the substernal and left anterior chest with radiation up to the neck and down the arm described as heaviness. Initially moderate to severe in intensity associated with mild dyspnea. Patient took 3 nitro prior to arrival and EMS administered 2 more as well as 324 of chewable aspirin and pain is currently down to 3 out of 10. She does report increased lower extremity edema however no other significant ranges and changes in health. She has been compliant with her medication regimen. No other specific changes in health, exacerbating, or alleviating factors identified. Onset (ago): minute(s) Timing of current episode: constant Prior episodes: Yes Onset: awoke with symptoms Pain location: substernal Pain radiation: left arm and neck Severity: moderate Quality: aching and heaviness Relieving factors: nitroglycerin Exacerbating factors: nothing Associated symptoms: Reports dyspnea and leg edema Review of Systems General: Reports: 10 or more systems reviewed and unremarkable except in HPI and below Resp: Reports: dyspnea PFSH ED PFSH: Medical History Anxiety ASHD (arteriosclerotic heart disease) Carotid arterial disease CHF (congestive heart failure) Chronic kidney disease Clostridioides difficile infection (07/2022) Colon polyps COPD (chronic obstructive pulmonary disease) Diabetes mellitus Dyslipidemia Eczema Graves disease History of CVA (cerebrovascular accident) History of skin cancer HTN (hypertension) Hypertensive urgency Hyperthyroidism Insomnia PAD (peripheral artery disease) Pneumonia due to COVID-19 virus (~06/2022) Surgical History History of cardiac catheterization 06/25/2022 Left main artery: Short, patent. Left circumflex artery: Has patent stents, no significant stenosis. LAD:Occluded in the midsegment. RCA: Known occluded. Not injected. SVG to diagonal artery and SVG to RCA are known occluded. Not injected. LOVETT to LAD: Patent. Coronary anatomy unchanged compared to before. History of coronary artery stent placement History of endovascular stent graft for abdominal aortic aneurysm (AAA) History of renal stent Hx of local excision of skin lesion (09/16/20) Left forearm x2 S/P CABG (coronary artery bypass graft) twice, last in 2004 S/P cataract surgery S/P cholecystectomy S/P hysterectomy with oophorectomy S/P skin and subcutaneous tissue surgery Status post colonoscopy (09/16/20) Status post insertion of iliac artery stent Family History Sister Mark's disease Sister No problems noted. Mother No problems noted. Other Anesthesia complication Social History Smoking and tobacco status: former smoker Alcohol intake: current Alcohol intake frequency: holidays/special occasions only Substance/Drug Use: current Physical Exam Const: COMMON NORMALS: alert GENERAL APPEARANCE: cooperative and well developed HENMT: COMMON NORMALS: normocephalic and atraumatic HEAD & SCALP: normoc ephalic and atraumatic THROAT: posterior oropharynx normal Eye: COMMON NORMALS: conjunctivae normal CONJUNCTIVA: Yes conjunctivae normal SCLERA: sclerae normal Neck/C-Spine: COMMON NORMALS: supple GENERAL: Yes trachea midline Resp: COMMON NORMALS: clear to auscultation bilaterally EFFORT & INSPECTION: Yes able to speak in complete sentences AUSCULTATION: clear to auscultation bilaterally Cardio: COMMON NORMALS: regular rate and regular rhythm RATE: regular rate RHYTHM: regular rhythm GI: COMMON NORMALS: Soft to palpation PALPATION: Yes Soft to palpation and No Tenderness to palpation present (GI) Extremity: GENERAL: Yes normal exam except as noted and Yes edema Neuro: COMMON NORMALS: moves all extremities SENSORIUM/ORIENTATION: Yes alert and No Orientation impaired Psych: COMMON NORMALS: mental status grossly normal and Normal thought process present THOUGHT PROCESS: Normal thought process present Course Vital Signs: Vital signs: Vital Signs Temperature 97.9 F 09/20/22 06:30 Pulse Rate 88 09/20/22 08:43 Respiratory Rate 14 09/20/22 08:43 Blood Pressure 170/84 09/20/22 08:43 Pulse Oximetry 97 09/20/22 08:43 Oxygen Delivery Me thod Room Air 09/20/22 08:43 MDM - Chest Pain Medical Decision Making 71-year-old lady presenting with chest pain and abnormal EKG. Exam as above. EKG demonstrates sinus rhythm with incomplete right bundle branch block and nonspecific ST segment abnormalities not meeting STEMI criteria. Discussed with interventional cardiology on-call Dr. Goldstein. He is in agreement that initial EKG does not meet STEMI criteria. Cancel STEMI activation. I will plan to proceed with regular cardiac evaluation. Labs with no leukocytosis, normal hemoglobin and platelet count. Metabolic panel with paroxysmal dehydration, creatinine is similar to prior. Initial troponin elevated with negative range 2-hour delta. BNP is improved. Chest x-ray with stable cardiomegaly, no lobar consolidation or pneumothorax. Patient treated with labetalol and hydralazine for hypertension. On reassessment patient feels improved. Disposition options including admission for further testing, patient is comfortable with continued outpatient management given Pull Over Machine Operator procedure performed in June this year. The results of ED evaluation were discussed with the patient including possible disposition options. I discussed risk stratification by heart score and estimated risk of major adverse cardiac events. The patient wishes to proceed with outpatient management. I discussed prescriptions and/or symptomatic cares (if applicable) including appropriate and responsible use, followup plan, and return precautions. The patient verbalized understanding and felt safe for discharge. Medical Records I reviewed the patient's medical records. Lab Data I reviewed the patient's lab results. 09/20/22 06:38 09/20/22 06:38 Radiology Impressions Chest X-Ray 09/20/22 06:34 IMPRESSION: Stable cardiomegaly. Laboratory Results WBC 11.6 10^3/uL (4.0-10.0) H 09/20/22 06:38 RBC 4.38 10^6/uL (4.1-5.3) 09/20/22 06:38 Hgb 12.1 g/dL (11.5-15.3) 09/20/22 06:38 Hct 37.7 % (37.0-47.0) 09/20/22 06:38 MCV 86.1 fl (81-99) 09/20/22 06:38 MCH 27.6 pg (28.0-34.0) L 09/20/22 06:38 MCHC 32.1 g/dL (30.0-36.0) 09/20/22 06:38 RDW 14.6 % (12.1-15.1) 09/20/22 06:38 Plt Count 344 10^3/cmm (130-400) 09/20/22 06:38 MPV 10.5 fL (7.4-10.4) H 09/20/22 06:38 Neut % (Auto) 62.0 % 09/20/22 06:38 Lymph % (Auto) 25.1 % 09/20/22 06:38 [place] % (Auto) 6.0 % 09/20/22 06:38 Eos % (Auto) 5.9 % 09/20/22 06:38 Baso % (Auto) 0.6 % 09/20/22 06:38 Neut # (Auto) 7.20 10^3/uL (1.8-7.7) 09/20/22 06:38 Lymph # (Auto) 2.9 10^3/uL (0.8-4.8) 09/20/22 06:38 [place] # (Auto) 0.7 10^3/uL (0.2-0.9) 09/20/22 06:38 Eos # (Auto) 0.7 10^3/uL (0.0-0.8) 09/20/22 06:38 Baso # (Auto) 0.1 10^3/uL (0.0-0.1) 09/20/22 06:38 Nucleated RBC % (auto) 0 % 09/20/22 06:38 Nucleated RBCs # 0.0 /100WBC 09/20/22 06:38 PT 12.90 SECONDS (12.1-14.9) 09/20/22 06:38 INR 0.95 (0.8-1.2) 09/20/22 06:38 APTT 32.6 SECONDS (23.9-36.7) 09/20/22 06:38 Sodium 135 mmol/L (136-145) L 09/20/22 06:38 Potassium 3.8 mmol/L (3.5-5.1) 09/20/22 06:38 Chloride 98 mmol/L (98-107) 09/20/22 06:38 Carbon Dioxide 24 mmol/L (22-29) 09/20/22 06:38 Anion Gap 16.8 (5-19) 09/20/22 06:38 BUN 26 mg/dL (8-23) H 09/20/22 06:38 Creatinine 2.0 mg/dL (0.5-0.9) H 09/20/22 06:38 GFR Calculation Not Reportable 09/20/22 06:38 Glucose 208 mg/dL (65-115) H 09/20/22 06:38 Calculated Osmolality 291 mOsm/kg (285-295) 09/20/22 06:38 Calcium 8.9 mg/dL (8.5-10.5) 09/20/22 06:38 Total Bilirubin 0.2 mg/dL (0.15-1.2) 09/20/22 06:38 AST 14 U/L (0-32) 09/20/22 06:38 ALT 7 U/L (0-33) 09/20/22 06:38 Alkaline Phosphatase 123 U/L (35-105) H 09/20/22 06:38 Troponin T Baseline 51 ng/L (0-10) H 09/20/22 06:38 Troponin T 120 Minute 48.66 ng/L (0-10) H 09/20/22 08:20 Delta Troponin T -2.34 ABS# (0-10) L 09/20/22 08:20 NT-Pro-B Natriuret Pep 11008 pg/mL (0-125) H 09/20/22 06:38 Total Protein 6.9 g/dL (6.6-8.7) 09/20/22 06:38 Albumin 3.4 g/dL (3.5-5.2) L 09/20/22 06:38 Globulin 3.5 g/dL (1.3-4.6) 09/20/22 06:38 Lipase 40 U/L (13-60) 09/20/22 06:38 Discharge Plan Discharge Patient Disposition: Home Clinical Impression: Chest pain, HTN (hypertension) Condition: Stable Prescriptions: No Action Anoro Ellipta 62.5-25 mcg/actuation blister with device 1 inh INHALATION DAILY isosorbide mononitrate 60 mg tablet extended release 24 hr 60 mg PO BID venlafaxine [Effexor XR] 150 mg capsule,extended release 24hr 150 mg PO BEDTIME Rx Instructions: TAKE WITH 75 MG Lasix 40 mg tablet 40 mg PO DIRECTED Rx Instructions: 40mg in AM, 20mg in PM IF gain >5# double cholecalciferol (vitamin D3) 125 mcg (5,000 unit) capsule 125 mcg PO .Weekly Jardiance 10 mg tablet 10 mg PO DAILY methimazole 5 mg tablet 5 mg PO DAILY Qty: 30 3RF (DME) Accu-Chek Ana M Plus test strp Strip See Rx Instructions .ROUTE .MEDSUPPLY Qty: 120 3RF Rx Instructions: check blood glucose four times a day tizanidine 4 mg tablet 4 mg PO BEDTIME aspirin 81 mg Tablet,Delayed Release (Dr/Ec) 81 mg PO BEDTIME nitroglycerin [Nitrostat] 0.4 mg Tablet, Sublingual 0.4 mg SUBLINGUAL Q5M PRN (Reason: Chest Pain) Rx Instructions: do not exceed 3 doses per episode insulin lispro [Humalog KwikPen Insulin] 100 unit/mL Insulin Pen See Rx Instructions .ROUTE .COMPLEX Rx Instructions: sliding scale tid prn blood sugar acetaminophen 500 mg Tablet 500 mg PO BEDTIME albuterol sulfate [Ventolin HFA] 90 mcg/actuation Hfa Aerosol Inhaler 2 puff INHALATION QID PRN (Reason: Shortness Of Breath) nifedipine 30 mg tablet extended release 24hr 90 mg PO DAILY Levemir FlexPen 100 unit/mL (3 mL) insulin pen 8 - 10 unit SUBCUT DAILY PRN (Reason: blood sugar) clopidogrel [Plavix] 75 mg tablet 75 mg PO DAILY Qty: 60 0RF atorvastatin 40 mg tablet 40 mg PO BEDTIME venlafaxine 75 mg capsule,extended release 24hr 75 mg PO BEDTIME Rx Instructions: TAKE WITH 150 MG acitretin 10 mg capsule 10 mg PO QAM docusate sodium [Colace] 100 mg capsule 100 mg PO BID PRN (Reason: Constipation) potassium chloride 10 mEq tablet extended release 10 meq PO DAILY Rx Instructions: Potassium only with Lasix metoprolol succinate 50 mg tablet extended release 24 hr 50 mg PO QAM hydralazine 25 mg tablet 25 mg PO TID 30 Days Qty: 90 0RF Discharge Orders: Discharge ED (Routine); Ordered 09/20/22 Ordered By: Florin Keyes Referrals: Jocelyne Kirby PA [Primary Care Provider] - Discharge Diet: Usual diet Discharge Activity: Resume usual activity Patient Instructions: Chest Pain (ED), Chronic Hypertension (ED), Opioid Safety Activity Restrictions/Additional Instructions: Thank you for visiting the emergency department. You were seen and evaluated for chest pain. The exact cause of your symptoms is unclear. As discussed you are not low risk for major adverse cardiac events. I offered admission which you declined at this time which I feel is reasonable given prior evaluation and discussion. I will message case management for outpatient testing and cardiology follow-up Please follow-up with your primary care provider. Please continue your medications. Return to the emergency department for anything that you are concerned about and feel needs emergency department evaluation. Coding Level of Care Code ED Manager Intr[employer] for Kir[facility]
[2022-09-20 06:40] VITALS: BP 205/93; PULSE 85; RESP 15; O2SAT 97
[2022-09-20 06:46] LABS: Basophils # 0.1 10^3/uL (0.0-0.1); Basophils % 0.6 %; Eosinophils # 0.7 10^3/uL (0.0-0.8); Eosinophils % 5.9 %; Hematocrit 37.7 % (37.0-47.0); Hemoglobin 12.1 g/dL (11.5-15.3); Lymphocytes # 2.9 10^3/uL (0.8-4.8); Lymphocytes % 25.1 %; Mean Corpuscular HGB Conc 32.1 g/dL (30.0-36.0); Mean Corpuscular Hemoglobin 27.6 pg (28.0-34.0); Mean Corpuscular Volume 86.1 fl (81-99); Mean Platelet Volume 10.5 fL (7.4-10.4); Monocytes # 0.7 10^3/uL (0.2-0.9); Nucleated Red Blood Cells % 0 %; Platelet Count 344 10^3/cmm (130-400); Red Blood Count 4.38 10^6/uL (4.1-5.3); Red Cell Distribution Width 14.6 % (12.1-15.1); White Blood Count 11.6 10^3/uL (4.0-10.0)
[2022-09-20 07:00] LABS: INR 0.95 (0.8-1.2)
[2022-09-20 07:01] LABS: Partial Thromboplastin Time 32.6 SECONDS (23.9-36.7)
[2022-09-20 07:11] LABS: Troponin(5th) Baseline 51 ng/L (0-10)
[2022-09-20 07:15] LABS: Alanine Aminotransferase 7 U/L (0-33); Albumin Level 3.4 g/dL (3.5-5.2); Alkaline Phosphatase 123 U/L (35-105); Anion Gap 16.8 (5-19); Aspartate Amino Transferase 14 U/L (0-32); Blood Urea Nitrogen 26 mg/dL (8-23); Calcium 8.9 mg/dL (8.5-10.5); Carbon Dioxide 24 mmol/L (22-29); Chloride 98 mmol/L (98-107); Globulin 3.5 g/dL (1.3-4.6); Glucose 208 mg/dL (65-115); Lipase 40 U/L (13-60); NT Pro B Type Natriuretic Pept 19017 pg/mL (0-125); Osmolality Calculated 291 mOsm/kg (285-295); Potassium 3.8 mmol/L (3.5-5.1); Sodium 135 mmol/L (136-145); Total Bilirubin 0.2 mg/dL (0.15-1.2); Total Protein 6.9 g/dL (6.6-8.7)
[2022-09-20 07:52] VITALS: BP 178/105; PULSE 89; RESP 14; O2SAT 94
[2022-09-20] MEDS: labetalol 5 mg/mL SDV 20mL 10 MG IVP (07:53)
--- NOTE | 2022-09-20 08:34 | ECG_ITS ---
[facility] Test Date: 2022-09-20 Pat Name: Romi Yuan Department: Room: Gender: Female Pipe And Test Supervisor: : 1950 Requested By: Florin Keyes Order Number: [id number] Tessa MD: Tristin Goldstein M.D. Measurements Intervals [place] Rate: 82 P: 44 [place]: 183 QRS: -39 QRSD: 115 T: 119 QT: 406 QTc: 476 Interpretive Statements SINUS RHYTHM LEFT AXIS DEVIATION [QRS AXIS < -30] INCOMPLETE RIGHT BUNDLE BRANCH BLOCK [90+ ms QRS DURATION, TERMINAL R IN V1/V2, 40+ ms S IN I/aVL/V4/V5/V6] LEFT VENTRICULAR HYPERTROPHY AND ST-T CHANGE [VOLTAGE CRITERIA PLUS ST/T ABNORMALITY] Compared to ECG 09/20/2022 07:15:42 Left ventricular hypertrophy now present ST (T wave) deviation now present T-wave abnormality no longer present Possible ischemia no longer present Electronically Signed On 09-20-2022 11:50:36 CDT by Tristin Goldstein M.D. [email or web address]
[2022-09-20 08:43] VITALS: BP 170/84; PULSE 88; RESP 14; O2SAT 97
[2022-09-20] MEDS: hyDRALAzine 25 mg Tablet PO (09:03)
[2022-09-20 09:39] LABS: Troponin 5 2HR 48.66 ng/L (0-10)
[2022-09-20 09:46] LABS: Troponin 5 2HR Delta -2.34 ABS# (0-10)
--- NOTE | 2022-09-21 10:41 | DCPLANNER ---
Addendum entered by Kristine eZpeda 10/02/22 09:57: Patient had a follow up appointment scheduled with [facility] - patient did not attend appointment. Addendum entered by Kristine Zepeda 09/23/22 07:44: Patient has a follow up appointment scheduled for , October 01, 2022 at 2:[address] Gomez at [facility]. Original Note: systems project manager had message to schedule an outpatient stress test and echocardiogram for patient. systems project manager faxed signed order to centralized scheduling, who will call patient with appointment information. systems project manager had message to schedule a follow up appointment for patient with cardiology. systems project manager sent patients information to the front office staff at [facility]. Patients information will be printed and reviewed. Clinic will call patient with appointment information.
== END 2022-09-20 11:02 | disposition home or self-care (01) ==
PROVIDERS: Emergency Provider Emergency Medicine; PCP Physician Assistant
DX: R07.9 Chest pain, unspecified (principal); Z79.82 Long term (current) use of aspirin; Z79.4 Long term (current) use of insulin; Z79.02 Long term (current) use of antithrombotics/antiplatelets; Z87.891 Personal history of nicotine dependence; Z95.1 Presence of aortocoronary bypass graft; I13.0 Hypertensive heart and chronic kidney disease with heart failure and stage 1 through stage 4 chronic kidney disease, or unspecified chronic kidney disease; E11.22 Type 2 diabetes mellitus with diabetic chronic kidney disease; N18.9 Chronic kidney disease, unspecified; I50.9 Heart failure, unspecified; J44.9 Chronic obstructive pulmonary disease, unspecified; E78.5 Hyperlipidemia, unspecified; Z86.73 Personal history of transient ischemic attack (TIA), and cerebral infarction without residual deficits
CPT/HCPCS: 36415; 71045; 80053; 83690; 83880; 84484; 85025; 85610; 85730; 93005; 96374; 99285; J3490

== ENCOUNTER → 2022-11-26 14:00 | Outpatient (BNVA) | payer MEDICARE, MEDICAID, SELFPAY | PROVIDERS: PCP Physician Assistant; Visit Provider Internal Medicine Cardiovascular Disease | DX: I13.0 Hypertensive heart and chronic kidney disease with heart failure and stage 1 through stage 4 chronic kidney disease, or unspecified chronic kidney disease (principal); N18.9 Chronic kidney disease, unspecified; I50.9 Heart failure, unspecified; E11.22 Type 2 diabetes mellitus with diabetic chronic kidney disease; Z87.891 Personal history of nicotine dependence; I25.10 Atherosclerotic heart disease of native coronary artery without angina pectoris; I73.9 Peripheral vascular disease, unspecified; E78.5 Hyperlipidemia, unspecified; Z79.4 Long term (current) use of insulin | CPT/HCPCS: 99214 ==

== ENCOUNTER 2022-12-16 14:37 | Emergency (ER) | payer MEDICARE, MEDICAID, SELFPAY ==
[2022-12-16] VITALS (8 sets, daily range): BP systolic 134–169; BP diastolic 58–98; PULSE 63–79; RESP 16–18; TEMP 36.6; O2SAT 93–99; BMI 30.2
--- NOTE | 2022-12-16 14:46 | CTR_ITS ---
PROCEDURE INFORMATION: Exam: CT Head Without Contrast Exam date and time: 12/16/2022 2:58 PM Age: 72 years old Clinical indication: Dizziness; Additional info: Severe dizziness. Overall TECHNIQUE: Imaging protocol: Computed tomography of the head without contrast. 284image(s) are provided. Radiation optimization: All CT scans at this facility use at least one of these dose optimization techniques: automated exposure control; mA and/or kV adjustment per patient size (includes targeted exams where dose is matched to clinical indication); or iterative reconstruction. Other technique: Axial images are available with sagittal and coronal reconstruction views. Automated dose exposure control is utilized. The DLP is 1005.08. REPORTING DATA: Count of CT and Cardiac NM exams in prior 12 months: This patient has received [address] and 0 known cardiac nuclear medicine studies in the 12 months prior to the current study. COMPARISON: CT head wo con* [id number] 11/13/2021 3:32 PM RADIATION DOSE METRICS: Total DLP (mGy-cm): 1005.88 FINDINGS: Brain: There are moderate cerebral atrophic changes overall.There are central lacunar changes demonstrated.There are chronic periventricular white matter changes present.No mass effect or layering hemorrhage is appreciated. Tolbert, white matter differentiation appears maintained. There is some developmental appearing cystic related change about the posterior fossa similar and corresponding with the previous description. There is some chronic encephalomalacia about the cerebellar hemispheres left more so than right similar overall. Cerebral ventricles: There is some compensatory ventricular enlargement with no interval hydrocephalus appreciated. Pituitary gland and sella: Partially empty sella variant is demonstrated. Paranasal sinuses: There is some slight ethmoidal air cell mucosal thickening on the right. Mastoid air cells: The mastoid air cells appear well-aerated overall. Orbital cavities: Symmetric appearance of the orbital soft tissues is demonstrated. Bones/joints: Osseous alignment is maintained.No interval displaced fracture or dislocation is appreciated. There is hyperostosis frontalis demonstrated. Soft tissues: No radiopaque foreign body or subcutaneous emphysema is appreciated. Vasculature: There are atherosclerotic vascular calcifications present. Other findings: There is some motion artifact present. No significant interval changes are appreciated. CT/CT head wo con* [id number] IMPRESSION: No interval mass effect, layering hemorrhage or hydrocephalus is demonstrated. No significant interval intracranial changes are appreciated.
--- NOTE | 2022-12-16 14:47 | ECG_ITS ---
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 Measurements Intervals [place] Rate: 76 P: 61 IA: 196 QRS: -17 QRSD: 118 T: 102 QT: 433 QTc: 489 Interpretive Statements SINUS RHYTHM POSSIBLE LEFT ATRIAL ENLARGEMENT [-0.1mV P-WAVE IN V1/V2] MODERATE INTRAVENTRICULAR CONDUCTION DELAY [110+ ms QRS DURATION] ST DEVIATION AND MODERATE T-WAVE ABNORMALITY, CONSIDER LATERAL ISCHEMIA [-0.1+ mV T-WAVE IN I/aVL/V5/V6] Compared to ECG 09/20/2022 08:41:12 Intraventricular conduction delay now present T-wave abnormality now present Possible ischemia now present Left-axis deviation no longer present Incomplete right bundle-branch block no longer present Left ventricular hypertrophy no longer present ST (T wave) deviation no longer present Electronically Signed On 12-16-2022 17:00:36 CDT by Ledy Pelayo M.D. [id number]
[2022-12-16 15:01] LABS: Basophils # 0.1 10^3/uL (0.0-0.1); Basophils % 0.5 %; Eosinophils # 0.3 10^3/uL (0.0-0.8); Eosinophils % 3.2 %; Hematocrit 41.7 % (37.0-47.0); Lymphocytes # 4.5 10^3/uL (0.8-4.8); Lymphocytes % 43.2 %; Mean Corpuscular HGB Conc 31.2 g/dL (30.0-36.0); Mean Corpuscular Hemoglobin 25.3 pg (28.0-34.0); Mean Corpuscular Volume 81.3 fl (81-99); Mean Platelet Volume 10.5 fL (7.4-10.4); Monocytes # 0.6 10^3/uL (0.2-0.9); Monocytes % 5.3 %; Neutrophils # 4.92 10^3/uL (1.8-7.7); Neutrophils % 47.5 %; Nucleated Red Blood Cells % 0 %; Platelet Count 351 10^3/cmm (130-400); Red Blood Count 5.13 10^6/uL (4.1-5.3); Red Cell Distribution Width 17.2 % (12.1-15.1); White Blood Count 10.4 10^3/uL (4.0-10.0)
[2022-12-16] MEDS: methylPREDNISolone sod succ 125 mg SDV 60 MG IVP (15:29)
[2022-12-16 15:33] LABS: Alanine Aminotransferase 9 U/L (0-33); Alkaline Phosphatase 160 U/L (35-105); Anion Gap 20.5 (5-19); Aspartate Amino Transferase 16 U/L (0-32); Blood Urea Nitrogen 28 mg/dL (8-23); Calcium 10.1 mg/dL (8.5-10.5); Carbon Dioxide 21 mmol/L (22-29); Chloride 101 mmol/L (98-107); Globulin 3.2 g/dL (1.3-4.6); Glucose 193 mg/dL (65-115); Osmolality Calculated 297 mOsm/kg (285-295); Potassium 4.5 mmol/L (3.5-5.1); Sodium 138 mmol/L (136-145); Total Bilirubin 0.4 mg/dL (0.15-1.2); Total Protein 7.2 g/dL (6.6-8.7)
[2022-12-16 15:37] LABS: Troponin(5th) Baseline 51 ng/L (0-10)
[2022-12-16 16:39] LABS: Add Urine Microscopic? YES; Bilirubin Urine Neg (Negative); Blood Urine Neg (Negative); Glucose Urine UA 4+ (Normal); Ketones Urine Negative (Negative); Leukocyte Esterase Urine Negative (Negative); Nitrate Urine Negative (Negative); Protein Urine 3+ (Negative); Urine Appearance Hazy (CLEAR); Urine Color Yellow (Yellow); Urobilinogen Urine Norm (Negative); pH Urine 7 (5-7)
[2022-12-16 16:40] LABS: Add Urine Culture? No; Bacteria Urine TRACE /hpf
[2022-12-16] MEDS: meclizine 25 mg tablet PO (16:42)
--- NOTE | 2022-12-16 16:45 | ED_ITS ---
HPI - Weakness General: Chief complaint: Weakness Stated complaint: N/V Time Seen by Provider: 12/16/22 14:42 History of Present Illness: 72-year-old female presents emergency room via EMS with sudden onset dizziness described the sensation as severe spinning sensation with head movement. Denies any headache, blurry vision, numbness or tingling. No fall or head injury. Chest pain, shortness of breath cough or coughing up blood. Associated symptoms: Reports nausea and vomiting; Denies chills, confusion, fever(s) or headache(s) Review of Systems Const: Denies: fever(s), chills, body aches or change in appetite Eyes: Denies: change in vision, blurry vision, blind spots or photophobia Resp: Denies: dyspnea or productive cough GI: Reports: nausea and vomiting; Denies: abdominal pain, coffee ground emesis, dysphagia, heartburn, early satiety, diarrhea, constipation or belching Musc: Denies: neck pain, back pain, extremity pain or extremity swelling Skin/Breast: Denies: rash, pruritus, erythema, photosensitivity or skin pain Neuro: Reports: dizziness and vertigo; Denies: headache(s), numbness in extremities, weakness in extremities, sensory changes, lack of coordination, difficulty walking, confusion, behavioral changes, Slurred speech present, difficulty communicating thoughts, seizure-like activity, involuntary movements or restless legs Psych: Denies: anxiety, depression, mood swings, panic attacks, sleeping less, sleeping more or hopelessness PFS ED PFSH: Medical History Anxiety ASHD (arteriosclerotic heart disease) Carotid arterial disease CHF (congestive heart failure) Chronic kidney disease Clostridioides difficile infection (07/2022) Colon polyps COPD (chronic obstructive pulmonary disease) Diabetes mellitus Dyslipidemia Eczema Graves disease History of CVA (cerebrovascular accident) History of skin cancer HTN (hypertension) Hypertensive urgency Hyperthyroidism Insomnia PAD (peripheral artery disease) Pneumonia due to COVID-19 virus (~06/2022) Surgical History History of cardiac catheterization 06/25/2022 Left main artery: Short, patent. Left circumflex artery: Has patent stents, no significant stenosis. LAD:Occluded in the midsegment. RCA: Known occluded. Not injected. SVG to diagonal artery and SVG to RCA are known occluded. Not injected. LOVETT to LAD: Patent. Coronary anatomy unchanged compared to before. History of coronary artery stent placement History of endovascular stent graft for abdominal aortic aneurysm (AAA) History of renal stent Hx of local excision of skin lesion (09/16/20) Left forearm x2 S/P CABG (coronary artery bypass graft) twice, last in 2004 S/P cataract surgery S/P cholecystectomy S/P hysterectomy with oophorectomy S/P skin and subcutaneous tissue surgery Status post colonoscopy (09/16/20) Status post insertion of iliac artery stent Family History Sister Mark's disease Sister No problems noted. Mother No problems noted. Other Anesthesia complication Social History Smoking and tobacco status: former smoker Alcohol intake: current Alcohol intake frequency: holidays/special occasions only Substance/Drug Use: current Physical Exam Const: COMMON NORMALS: no acute distress, average body habitus, patient oriented x3, no limitations, healthy appearing, alert and well nourished Eye: COMMON NORMALS: Equal, round and reactive pupils present, no scleral icterus and no papilledema PUPIL: Yes Equal, round and reactive pupils present DIRECT OPHTHALMOSCOPY: Yes no papilledema Neck/C-Spine: COMMON NORMALS: no meningeal signs Chest: COMMONS NORMALS: normal inspection of the chest, normal palpation of entire chest wall, normal inspection of the breasts and normal palpation of the breasts Breast/axilla inspection: Yes normal inspection of the breasts BREAST/AXILLA PALPATION: Yes normal palpation of the breasts Resp: COMMON NORMALS: normal respiratory effort, No retractions, No use of accessory muscles, clear to auscultation bilaterally and percussion normal AUSCULTATION: clear to auscultation bilaterally PERCUSSION: percussion normal GI: COMMON NORMALS: Normal to inspection, nondistended, normoactive bowel sounds present, Soft to palpation, non-tender, No hepatosplenomegaly present, no masses and no bruits PALPATION: Yes Soft to palpation and Yes No hep atosplenomegaly present Neuro: ADRIEL COMA SCALE: document GCS findings Adriel coma scale eye opening: Spontaneous Adriel coma scale verbal response: Orientated [place] coma scale motor response: Obey commands Adriel coma scale total score: 15 COMMON NORMALS: patient oriented x3 SENSORIUM/ORIENTATION: Yes alert MENINGEAL SIGNS: Yes no meningeal signs, No nuccal rigidity, No Brudzinski's sign present and No Kernig's sign presnet COORDINATION/BALANCE: [id number] test normal, goui-az-hska test normal, No sways with eyes open and No does not sway with eyes open SPEECH: speech normal COORDINATION: ynajbp-rv-[id number] test normal, lcla-vi-urri test normal and sways with eyes open Course Reevaluation(s): Reevaluation #1: Per assessment patient was stable talking to a friend at bedside. Acute distress patient reports that the medication did help significantly. She would like to be discharged home. Time: 18:22 Vital Signs: Vital signs: Vital Signs Temperature 97.9 F 12/16/22 14:44 Pulse Rate 75 12/16/22 16:42 Respiratory Rate 16 12/16/22 17:37 Blood Pressure 157/83 12/16/22 16:42 Pulse Oximetry 97 12/16/22 17:37 Oxygen Delivery Me thod Room Air 12/16/22 14:44 MDM - Weakness Medical Decision Making RightPatient made comfortable emergency room. And Antivert. Scan was done and reviewed with patient. Labs study discussed with patient patient had 2 set of cardiac enzymes within normal limit. Was reviewed with patient upper assessment patient remained stable without acute distress. Lab Data 12/16/22 14:43 12/16/22 14:[address] 12/16/22 14:46 IMPRESSION: No interval mass effect, layering hemorrhage or hydrocephalus is demonstrated. No significant interval intracranial changes are appreciated. Laboratory Results WBC 10.4 10^3/uL (4.0-10.0) H 12/16/22 14:43 RBC 5.13 10^6/uL (4.1-5.3) 12/16/22 14:43 Hgb 13.0 g/dL (11.5-15.3) 12/16/22 14:43 Hct 41.7 % (37.0-47.0) 12/16/22 14:43 MCV 81.3 fl (81-99) 12/16/22 14:43 MCH 25.3 pg (28.0-34.0) L 12/16/22 14:43 MCHC 31.2 g/dL (30.0-36.0) 12/16/22 14:43 RDW 17.2 % (12.1-15.1) H 12/16/22 14:43 Plt Count 351 10^3/cmm (130-400) 12/16/22 14:43 MPV 10.5 fL (7.4-10.4) H 12/16/22 14:43 Neut % (Auto) 47.5 % 12/16/22 14:43 Lymph % (Auto) 43.2 % 12/16/22 14:43 [place] % (Auto) 5.3 % 12/16/22 14:43 Eos % (Auto) 3.2 % 12/16/22 14:43 Baso % (Auto) 0.5 % 12/16/22 14:43 Neut # (Auto) 4.92 10^3/uL (1.8-7.7) 12/16/22 14:43 Lymph # (Auto) 4.5 10^3/uL (0.8-4.8) 12/16/22 14:43 [place]dwell # (Auto) 0.6 10^3/uL (0.2-0.9) 12/16/22 14:43 Eos # (Auto) 0.3 10^3/uL (0.0-0.8) 12/16/22 14:43 Baso # (Auto) 0.1 10^3/uL (0.0-0.1) 12/16/22 14:43 Nucleated RBC % (auto) 0 % 12/16/22 14:43 Nucleated RBCs # 0.0 /100WBC 12/16/22 14:43 Sodium 138 mmol/L (136-145) 12/16/22 14:43 Potassium 4.5 mmol/L (3.5-5.1) 12/16/22 14:43 Chloride 101 mmol/L (98-107) 12/16/22 14:43 Carbon Dioxide 21 mmol/L (22-29) L 12/16/22 14:43 Anion Gap 20.5 (5-19) H 12/16/22 14:43 BUN 28 mg/dL (8-23) H 12/16/22 14:43 Creatinine 2.4 mg/dL (0.5-0.9) H 12/16/22 14:43 GFR Calculation Not Reportable 12/16/22 14:43 Glucose 193 mg/dL (65-115) H 12/16/22 14:43 Calculated Osmolality 297 mOsm/kg (285-295) H 12/16/22 14:43 Calcium 10.1 mg/dL (8.5-10.5) 12/16/22 14:43 Total Bilirubin 0.4 mg/dL (0.15-1.2) 12/16/22 14:43 AST 16 U/L (0-32) 12/16/22 14:43 ALT 9 U/L (0-33) 12/16/22 14:43 Alkaline Phosphatase 160 U/L (35-105) H 12/16/22 14:43 Troponin T Gen 5 ng/L 47 ng/L (0-10) H 12/16/22 16:57 Troponin T Baseline 51 ng/L (0-10) H 12/16/22 14:43 Total Protein 7.2 g/dL (6.6-8.7) 12/16/22 14:43 Albumin 4.0 g/dL (3.5-5.2) 12/16/22 14:43 Globulin 3.2 g/dL (1.3-4.6) 12/16/22 14:43 Urine Color Yellow (Yellow) 12/16/22 15:45 Urine Appearance Hazy (CLEAR) A 12/16/22 15:45 Urine pH 7 (5-7) 12/16/22 15:45 Ur Specific [place] 1.010 (1.005-1.030) 12/16/22 15:45 Urine Protein 3+ (Negative) H 12/16/22 15:45 Urine Glucose (UA) 4+ (Normal) H 12/16/22 15:45 Urine Ketones Negative (Negative) 12/16/22 15:45 Urine Blood Neg (Negative) 12/16/22 15:45 Urine Nitrate Negative (Negative) 12/16/22 15:45 Urine Bilirubin Neg (Negative) 12/16/22 15:45 Urine Urobilinogen Norm mg/dL (Negative) 12/16/22 15:45 Ur Leukocyte Esterase Negative (Negative) 12/16/22 15:45 Urine RBC None /hpf (0-2) 12/16/22 15:45 Urine WBC 10-15 /hpf (0-5) H 12/16/22 15:45 Ur Squamous Epith Cells 5-10 /hpf (0-5) H 12/16/22 15:45 Amorphous Sediment Not Reportable 12/16/22 15:45 Urine Bacteria Trace /hpf (NONE) 12/16/22 15:[address] Head: My impression: CT head no obvious acute process. EKG Data EKG 1: Interpretation: Heart rhythm rate of 76 SC interval [address] changes. UT 433 URS duration 118. Discharge Plan Discharge Patient Disposition: Home Clinical Impression: Vertigo, Chronic progressive renal failure Condition: Stable Prescriptions: New Antivert 25 mg tablet,chewable 25 mg PO TID PRN (Reason: dizziness or vertigo) Qty: 20 0RF No Action Anoro Ellipta 62.5-25 mcg/actuation blister with device 1 inh INHALATION DAILY isosorbide mononitrate 60 mg tablet extended release 24 hr 60 mg PO BID venlafaxine [Effexor XR] 150 mg capsule,extended release 24hr 150 mg PO BEDTIME Rx Instructions: TAKE WITH 75 MG cholecalciferol (vitamin D3) 125 mcg (5,000 unit) capsule 125 mcg PO .Weekly hydralazine 25 mg tablet 25 mg PO BID potassium chloride 10 mEq tablet extended release 10 meq PO BID Qty: 180 1RF Lasix 40 mg tablet 60 mg PO DIRECTED Qty: 135 1RF Rx Instructions: 40mg (1 tab) in AM and 20mg (0.5 tab) in PM Jardiance 10 mg tablet 10 mg PO DAILY methimazole 5 mg tablet 5 mg PO DAILY Qty: 30 3RF (DME) Accu-Chek Ana M Plus test strp Strip See Rx Instructions .ROUTE .MEDSUPPLY Qty: 120 3RF Rx Instructions: check blood glucose four times a day tizanidine 4 mg tablet 4 mg PO BEDTIME aspirin 81 mg Tablet,Delayed Release (Dr/Ec) 81 mg PO BEDTIME nitroglycerin [Nitrostat] 0.4 mg Tablet, Sublingual 0.4 mg SUBLINGUAL Q5M PRN (Reason: Chest Pain) Rx Instructions: do not exceed 3 doses per episode insulin lispro [Humalog KwikPen Insulin] 100 unit/mL Insulin Pen See Rx Instructions .ROUTE .COMPLEX Rx Instructions: sliding scale tid prn blood sugar acetaminophen 500 mg Tablet 500 mg PO BEDTIME albuterol sulfate [Ventolin HFA] 90 mcg/actuation Hfa Aerosol Inhaler 2 puff INHALATION QID PRN (Reason: Shortness Of Breath) Levemir FlexPen 100 unit/mL (3 mL) insulin pen 8 - 10 unit SUBCUT DAILY PRN (Reason: blood sugar) nifedipine 30 mg tablet extended release 24hr 30 mg PO BID clopidogrel [Plavix] 75 mg tablet 75 mg PO DAILY Qty: 60 0RF atorvastatin 40 mg tablet 40 mg PO BEDTIME venlafaxine 75 mg capsule,extended release 24hr 75 mg PO BEDTIME Rx Instructions: TAKE WITH 150 MG acitretin 10 mg capsule 10 mg PO QAM docusate sodium [Colace] 100 mg capsule 100 mg PO BID PRN (Reason: Constipation) metoprolol succinate 50 mg tablet extended release 24 hr 50 mg PO QAM Discharge Orders: Discharge ED (Routine); Ordered 12/16/22 Ordered By: Narayan Crump Referrals: Jocelyne Kirby PA [Primary Care Provider] - Discharge Diet: Advance as tolerated Discharge Activity: Resume usual activity Patient Instructions: Opioid Safety, Pain Management Activity Restrictions/Additional Instructions: Patient was told to stay with a friend or family tonight. Patient to return to emergency room if symptoms persist or worsen Coding Level of Care Code ED Phlebotomist Supervisor/Instructor for Kiran Holland
[2022-12-16 17:53] LABS: Troponin T (5th) Once 47 ng/L (0-10)
== END 2022-12-16 18:37 | disposition home or self-care (01) ==
PROVIDERS: Emergency Provider Family Medicine; PCP Physician Assistant
DX: R42 Dizziness and giddiness (principal); N19 Unspecified kidney failure
CPT/HCPCS: 36415; 70450; 80053; 81001; 84484; 85025; 93005; 96374; 99285; J2930; J8597

== ENCOUNTER → 2023-01-27 10:53 | Outpatient (BNVA) | payer MEDICARE, MEDICAID, SELFPAY | PROVIDERS: PCP Physician Assistant; Visit Provider Internal Medicine Cardiovascular Disease | DX: I13.0 Hypertensive heart and chronic kidney disease with heart failure and stage 1 through stage 4 chronic kidney disease, or unspecified chronic kidney disease (principal); E11.22 Type 2 diabetes mellitus with diabetic chronic kidney disease; I50.9 Heart failure, unspecified; N18.9 Chronic kidney disease, unspecified; Z87.891 Personal history of nicotine dependence; Z79.4 Long term (current) use of insulin; I25.10 Atherosclerotic heart disease of native coronary artery without angina pectoris; E78.5 Hyperlipidemia, unspecified; I73.9 Peripheral vascular disease, unspecified | CPT/HCPCS: 99214 ==

== ENCOUNTER 2023-02-26 22:53 | Inpatient (IN) | payer MEDICARE, MEDICAID, SELFPAY ==
[2023-02-26 22:55] VITALS: BP 219/116; PULSE 110; RESP 19; TEMP 36.8; O2SAT 95; BMI 27.0
--- NOTE | 2023-02-26 22:59 | ECG_ITS ---
[facility] Test Date: 2023-02-26 Pat Name: Romi Yuan Department: Room: Gender: Female Kettle Skimmer: : 1950 Requested By: Christian Huynh Order Number: [id number] Tessa MD: Tristin Goldstein M.D. Measurements Intervals [place] Rate: 110 P: 71 MA: 170 QRS: -49 QRSD: 113 T: 75 QT: 344 QTc: 465 Interpretive Statements SINUS TACHYCARDIA LEFT AXIS DEVIATION [QRS AXIS < -30] INCOMPLETE RIGHT BUNDLE BRANCH BLOCK [90+ ms QRS DURATION, TERMINAL R IN V1/V2, 40+ ms S IN I/aVL/V4/V5/V6] LEFT VENTRICULAR HYPERTROPHY AND ST-T CHANGE [VOLTAGE CRITERIA PLUS ST/T ABNORMALITY] Compared to ECG 12/16/2022 15:07:48 Left-axis deviation now present Incomplete right bundle-branch block now present Left ventricular hypertrophy now present ST (T wave) deviation now present Possible ischemia no longer present Electronically Signed On 02-27-2023 7:11:57 CDT by Tristin Goldstein M.D. [id number]
--- NOTE | 2023-02-26 23:08 | XRR_ITS ---
PROCEDURE INFORMATION: Exam: XR Chest Exam date and time: 02/26/2023 11:12 PM Age: 72 years old Clinical indication: Pain; Chest pressure; Prior surgery; Surgery date: 6+ months; Surgery type: Cabg. Gb; Additional info: Chest pain TECHNIQUE: Imaging protocol: Radiologic exam of the chest. Views: 1 view. COMPARISON: CR (CHEST, ) 09/20/2022 6:39 AM FINDINGS: Lungs: Unremarkable. No consolidation. Pleural spaces: Unremarkable. No pleural effusion. No pneumothorax. Heart/Mediastinum: Cardiomegaly. Bones/joints: Sternotomy wires. XR/XR chest 1V portable [id number] IMPRESSION: Cardiomegaly, negative for infiltrate.
[2023-02-26 23:20] LABS: Basophils # 0.1 10^3/uL (0.0-0.1); Basophils % 0.4 %; Eosinophils # 0.2 10^3/uL (0.0-0.8); Eosinophils % 1.2 %; Hematocrit 42.3 % (36-47); Lymphocytes # 4.5 10^3/uL (0.8-4.8); Lymphocytes % 28.6 %; Mean Corpuscular Hemoglobin 25.2 pg (27-33); Mean Corpuscular Volume 81.3 fl (85-98); Mean Platelet Volume 10.1 fL (7.4-10.4); Monocytes # 0.9 10^3/uL (0.2-0.9); Monocytes % 5.5 %; Neutrophils # 9.99 10^3/uL (1.8-7.7); Nucleated Red Blood Cells % 0 %; Platelet Count 346 10^3/cmm (157-399); Red Cell Distribution Width 16.4 % (12.1-15.1); White Blood Count 15.61 10^3/uL (3.29-11.43)
[2023-02-26 23:27] LABS: INR 0.99 (0.8-1.2)
[2023-02-26 23:28] LABS: Partial Thromboplastin Time 29.2 SECONDS (23.9-36.7)
[2023-02-26 23:37] LABS: Troponin(5th) Baseline 60 ng/L (0-10)
[2023-02-26 23:38] LABS: Alanine Aminotransferase 12 U/L (0-33); Alkaline Phosphatase 170 U/L (35-105); Anion Gap 20.2 (5-19); Aspartate Amino Transferase 20 U/L (0-32); Blood Urea Nitrogen 21 mg/dL (8-23); Calcium 9.5 mg/dL (8.5-10.5); Carbon Dioxide 21 mmol/L (22-29); Chloride 105 mmol/L (98-107); Globulin 2.8 g/dL (1.3-4.6); Glucose 194 mg/dL (65-115); Osmolality Calculated 302 mOsm/kg (285-295); Potassium 4.2 mmol/L (3.5-5.1); Sodium 142 mmol/L (136-145); Total Bilirubin 0.3 mg/dL (0.15-1.2); Total Protein 6.8 g/dL (6.6-8.7)
--- NOTE | 2023-02-26 23:38 | CTR_ITS ---
PROCEDURE INFORMATION: Exam: CTA Chest With Contrast Exam date and time: 02/27/2023 1:00 AM Age: 72 years old Clinical indication: Shortness of breath; Chest pressure; Prior surgery; Surgery date: 6+ months; Surgery type: Cabg. Gb; Patient HX: Chest pain with SOB and tachycardia. TECHNIQUE: Imaging protocol: Computed tomographic angiography of the chest with contrast. Exam focused on the arteries. 3D rendering (Not supervised by radiologist): MIP and/or 3D reconstructed images were created by the technologist. Radiation optimization: All CT scans at this facility use at least one of these dose optimization techniques: automated exposure control; mA and/or kV adjustment per patient size (includes targeted exams where dose is matched to clinical indication); or iterative reconstruction. Contrast material: OMNI 350; Contrast volume: 57 ml; Contrast route: INTRAVENOUS (IV); REPORTING DATA: Count of CT and Cardiac NM exams in prior 12 months: This patient has received 2 known CTs and 0 known cardiac nuclear medicine studies in the 12 months prior to the current study. COMPARISON: CT lung screening [id number] 05/22/2022 1:14 PM RADIATION DOSE METRICS: Total DLP (mGy-cm): 330.96 FINDINGS: Pulmonary arteries: Normal. No pulmonary emboli. Aorta: Ascending thoracic aorta mildly dilated 3.3 cm. Lungs: Emphysematous changes. Minimal dependent atelectasis. Pleural spaces: Unremarkable. No pneumothorax. No pleural effusion. Heart: Cardiomegaly. Coronary arteries: Coronary artery atherosclerotic calcifications. Lymph nodes: Unremarkable. No enlarged lymph nodes. Adrenal glands: Left adrenal hypertrophy. Kidneys and ureters: Bilateral renal cysts incompletely visualized. Bilateral punctate nonobstructing renal calyceal stones. Bones/joints: Sternotomy wires. Soft tissues: Unremarkable. CT/CT angio chest PE protcl [id number] IMPRESSION: 1. Negative for pulmonary embolus. 2. Cardiomegaly. 3. Coronary artery atherosclerotic calcifications. 4. Left adrenal hypertrophy. 5. Bilateral renal cysts incompletely visualized. 6. Bilateral punctate nonobstructing renal calyceal stones. 7. Sternotomy wires. 8. Emphysematous changes. 9. Minimal dependent atelectasis. 10. Ascending thoracic aorta mildly dilated 3.3 cm. COMMENTS: 1. Consistent with the [employer]'s Incidental Findings Committee white paper (J Am Zayra Radiol 2018): Any incidental renal lesion less than 1 cm or classified as too small to characterize, or any incidental cystic renal lesion characterized as simple-appearing, is likely benign. No follow-up imaging is recommended for these lesions per consensus recommendations based on imaging criteria. 2. In the absence of a history or active diagnosis of lung cancer, it is recommended that this patient with emphysema be evaluated for enrollment in a low dose CT lung cancer screening program.
[2023-02-26] MEDS: metoprolol tartrate 1 mg/1 mL SDV 5 mL 5 MG IVP (23:57)
[2023-02-26] MEDS: ondansetron 2 mg/ML SDV 2 mL 4 MG IVP (23:57)
[2023-02-26] MEDS: nitroglycerin 1 gm/inch oint Pkt 2 INCH TOPICAL (23:57)
[2023-02-27] VITALS (14 sets, daily range): BP systolic 129–210; BP diastolic 55–102; PULSE 52–96; RESP 16–27; TEMP 36.7–36.9; O2SAT 94–100
[2023-02-27] MEDS: ipratropium-albuterol 3 mL Neb INHALATION (00:14)
[2023-02-27 00:25] LABS: Glucose Urine UA 4+ (Normal); Ketones Urine Negative (Negative); Protein Urine 3+ (Negative); Urine Appearance Clear (CLEAR); Urine Color Yellow (Yellow); pH Urine 6 (5-7)
[2023-02-27 00:26] LABS: Add Urine Culture? No; Add Urine Microscopic? YES; Bacteria Urine TRACE /hpf; Bilirubin Urine Neg (Negative); Blood Urine Trace (Negative); Leukocyte Esterase Urine Negative (Negative); Nitrate Urine Negative (Negative); RBC Urine RARE /hpf (0-2); Urobilinogen Urine Neg (Negative); WBC Urine RARE /hpf (0-5)
[2023-02-27 00:28] LABS: ABG PCO2 36.7 mmHg (35-45); ABG PH Result 7.38 (7.35-7.45); Arterial Blood Gas Hematocrit 40.6 % (37-47); Base Excess ABG -3.1 mmol/L (-2.0-2.0); Blood Gas Sample Type Arterial; HCO3 ABG 21.6 mmol/L (22-26); PO2 ABG 74.5 mmHg (80.0-100.0)
[2023-02-27 00:29] LABS: Blood Gas Sample Site Brachial, right; Oxygen Device NC
--- NOTE | 2023-02-27 00:36 | W.ED.CHESTPA ---
HPI - Chest Pain General: Chief Complaint: Chest Pain Stated Complaint: CP Time Seen by Provider: 02/26/23 23:05 Source: patient History of Present Illness: 72-year-old female with a history of coronary disease and chronic kidney disease. She presents after developing chest pain while washing her dog at home. She is short of breath as well. She was given nitroglycerin by EMS with some improvement in her pain. She states that she took her nighttime medicine this evening. She denies fever or increased cough. She denies increased swelling of her lower extremities. MD complaint: chest pain Pertinent past history: coronary artery disease Associated symptoms: Reports dyspnea and nausea; Deny abdominal pain, fever(s), palpitations or vomiting Review of Systems Const: Denies: fever(s) ENMT: Denies: throat pain Card: Reports: chest pain; Denies: palpitations Resp: Reports: dyspnea; Denies: productive cough or non-productive cough GI: Reports: nausea; Denies: abdominal pain or vomiting [facility] ED PFSH: Medical History Anxiety ASHD (arteriosclerotic heart disease) Carotid arterial disease CHF (congestive heart failure) Chronic kidney disease Clostridioides difficile infection (07/2022) Colon polyps COPD (chronic obstructive pulmonary disease) Diabetes mellitus Dyslipidemia Eczema Graves disease History of CVA (cerebrovascular accident) History of skin cancer HTN (hypertension) Hypertensive urgency Hyperthyroidism Insomnia PAD (peripheral artery disease) Pneumonia due to COVID-19 virus (~06/2022) Surgical History History of cardiac catheterization 06/25/2022 Left main artery: Short, patent. Left circumflex artery: Has patent stents, no significant stenosis. LAD:Occluded in the midsegment. RCA: Known occluded. Not injected. SVG to diagonal artery and SVG to RCA are known occluded. Not injected. LOVETT to LAD: Patent. Coronary anatomy unchanged compared to before. History of coronary artery stent placement History of endovascular stent graft for abdominal aortic aneurysm (AAA) History of renal stent Hx of local excision of skin lesion (09/16/20) Left forearm x2 S/P CABG (coronary artery bypass graft) twice, last in 2004 S/P cataract surgery S/P cholecystectomy S/P hysterectomy with oophorectomy S/P skin and subcutaneous tissue surgery Status post colonoscopy (09/16/20) Status post insertion of iliac artery stent Family History Sister Mark's disease Sister No problems noted. Mother No problems noted. Other Anesthesia complication Social History Smoking and tobacco status: former smoker Alcohol intake: current Alcohol intake frequency: holidays/special occasions only Substance/Drug Use: current Physical Exam Const: GENERAL APPEARANCE: cooperative, ill appearing and frail appearing HENMT: COMMON NORMALS: normocephalic, atraumatic and Normal external nose present HEAD & SCALP: normocephalic and atraumatic FACE & SINUS: normal facial exam and face symmetric NOSE: Normal external nose present Eye: COMMON NORMALS: Equal, round and reactive pupils present and EOMs intact bilaterally PUPIL: Yes Equal, round and reactive pupils present Neck/C-Spine: GENERAL: Yes trachea midline Chest: CHEST: Yes Symmetrical chest wall rise Resp: EFFORT & INSPECTION: Yes symmetric chest movement, Yes tachypneic and Yes labored AUSCULTATION: wheezes (intermittent) Cardio: COMMON NORMALS: regular rhythm RATE: tachycardic RHYTHM: regular rhythm GI: COMMON NORMALS: Normal to inspection, nondistended, normoactive bowel sounds present and Soft to palpation PALPATION: Yes Soft to palpation Extremity: COMMON NORMALS: no pedal edema Neuro: ADRIEL COMA SCALE: document GCS findings [place] coma scale eye opening: Spontaneous Adriel coma scale verbal response: Orientated [place] coma scale motor response: Obey commands Adriel coma scale total score: 15 SENSORY EXAM: Yes extremities (intact) Psych: COMMON NORMALS: speech normal SPEECH: Yes normal speech Skin: COMMON NORMALS: no rashes or lesions noted GENERAL SKIN EXAM: no rashes or lesions noted Course ED course: 72-year-old female with chest discomfort and shortness of breath. She is very hypertensive on arrival. She is given metoprolol IV once, followed by IV labetalol and oral amlodipine. Currently blood pressure 166/92. EKG shows a sinus rhythm to sinus tachycardia with an incomplete right bundle branch block, LVH criteria, rate of 100, QRS duration mildly long at [address] elevation present. There is minimal lateral depression. Chest x-ray reveals cardiomegaly and vascular congestion. CTA of the chest reveals the same. There is no PE. Vital Signs: Vital signs: Vital Signs Temperature 98.3 F 02/26/23 22:55 Pulse Rate 88 02/27/23 01:53 Respiratory Rate 18 02/27/23 01:53 Blood Pressure 210/93 02/27/23 01:53 Pulse Oximetry 95 02/27/23 01:53 Oxygen Delivery Me thod Nasal Cannula 02/27/23 01:53 Oxygen Flow Rate 2 02/27/23 01:53 MDM - Chest Pain Medical Decision Making Blood pressures quite high on presentation, 210s over 110s. Chest pain was improved after nitroglycerin in the ambulance. She still having nausea. This is improved after Nitropaste and Zofran. EKG shows sinus tachycardia with a rate of 110, LVH criteria are met, QRS is slightly prolonged at 113, axis is normal. Minimal ST depression laterally. Delta troponin is significantly elevated. Blood pressure is more under control after labetalol, amlodipine. Creatinine is at baseline 1.9. BNP is elevated in the 40,000's. Given the increased troponin delta, significantly higher pressures that are difficult to control, and significant shortness of breath that remains, she will be admitted. CSU. Hospitalist will see the patient. Lab Data 02/26/23 23:05 02/26/23 23:05 Radiology Impressions Chest X-Ray 02/26/23 23:08 IMPRESSION: Cardiomegaly, negative for infiltrate. Chest CTA 02/26/23 23:38 IMPRESSION: 1. Negative for pulmonary embolus. 2. Cardiomegaly. 3. Coronary artery atherosclerotic calcifications. 4. Left adrenal hypertrophy. 5. Bilateral renal cysts incompletely visualized. 6. Bilateral punctate nonobstructing renal calyceal stones. 7. Sternotomy wires. 8. Emphysematous changes. 9. Minimal dependent atelectasis. 10. Ascending thoracic aorta mildly dilated 3.3 cm. COMMENTS: 1. Consistent with the [employer]'s Incidental Findings Committee white paper (J Am Zayra Radiol 2018): Any incidental renal lesion less than 1 cm or classified as too small to characterize, or any incidental cystic renal lesion characterized as simple-appearing, is likely benign. No follow-up imaging is recommended for these lesions per consensus recommendations based on imaging criteria. 2. In the absence of a history or active diagnosis of lung cancer, it is recommended that this patient with emphysema be evaluated for enrollment in a low dose CT lung cancer screening program. Laboratory Results WBC 15.61 10^3/uL (3.29-11.43) H 02/26/23 23:05 RBC 5.20 10^6/uL (3.85-5.65) 02/26/23 23:05 Hgb 13.10 g/dL (11.27-16.99) 02/26/23 23:05 Hct 42.3 % (36-47) 02/26/23 23:05 MCV 81.3 fl (85-98) L 02/26/23 23:05 MCH 25.2 pg (27-33) L 02/26/23 23:05 MCHC 31.0 g/dL (30-55) 02/26/23 23:05 RDW 16.4 % (12.1-15.1) H 02/26/23 23:05 Plt Count 346 10^3/cmm (157-399) 02/26/23 23:05 MPV 10.1 fL (7.4-10.4) 02/26/23 23:05 Neut % (Auto) 64.0 % 02/26/23 23:05 Lymph % (Auto) 28.6 % 02/26/23 23:05 Hopkins % (Auto) 5.5 % 02/26/23 23:05 Eos % (Auto) 1.2 % 02/26/23 23:05 Baso % (Auto) 0.4 % 02/26/23 23:05 Neut # (Auto) 9.99 10^3/uL (1.8-7.7) H 02/26/23 23:05 Lymph # (Auto) 4.5 10^3/uL (0.8-4.8) 02/26/23 23:05 Hopkins # (Auto) 0.9 10^3/uL (0.2-0.9) 02/26/23 23:05 Eos # (Auto) 0.2 10^3/uL (0.0-0.8) 02/26/23 23:05 Baso # (Auto) 0.1 10^3/uL (0.0-0.1) 02/26/23 23:05 Nucleated RBC % (auto) 0 % 02/26/23 23:05 Nucleated RBCs # 0.0 /100WBC 02/26/23 23:05 PT 13.40 SECONDS (12.1-14.9) 02/26/23 23:05 INR 0.99 (0.8-1.2) 02/26/23 23:05 APTT 29.2 SECONDS (23.9-36.7) 02/26/23 23:05 Specimen Type Arterial 02/27/23 00:25 Sample Site Brachial, right 02/27/23 00:25 ABG pH 7.38 (7.35-7.45) 02/27/23 00:25 ABG pCO2 36.7 mmHg (35-45) 02/27/23 00:25 ABG pO2 74.5 mmHg (80.0-100.0) L 02/27/23 00:25 ABG HCO3 21.6 mmol/L (22-26) L 02/27/23 00:25 ABG Base Excess -3.1 mmol/L (-2.0-2.0) L 02/27/23 00:25 Rene Test N/a 02/27/23 00:25 Hematocrit 40.6 % (37-47) 02/27/23 00:25 O2 Delivery Device Nc 02/27/23 00:25 O2 Liters/Min 2.0 % 02/27/23 00:25 FiO2 28.0 % 02/27/23 00:25 Hollow Handle Bench Worker ID [email or web address] 02/27/23 00:25 Sodium 142 mmol/L (136-145) 02/26/23 23:05 Potassium 4.2 mmol/L (3.5-5.1) 02/26/23 23:05 Chloride 105 mmol/L (98-107) 02/26/23 23:05 Carbon Dioxide 21 mmol/L (22-29) L 02/26/23 23:05 Anion Gap 20.2 (5-19) H 02/26/23 23:05 BUN 21 mg/dL (8-23) 02/26/23 23:05 Creatinine 1.9 mg/dL (0.5-0.9) H 02/26/23 23:05 GFR Calculation Not Reportable 02/26/23 23:05 Glucose 194 mg/dL (65-115) H 02/26/23 23:05 Calculated Osmolality 302 mOsm/kg (285-295) H 02/26/23 23:05 Calcium 9.5 mg/dL (8.5-10.5) 02/26/23 23:05 Total Bilirubin 0.3 mg/dL (0.15-1.2) 02/26/23 23:05 AST 20 U/L (0-32) 02/26/23 23:05 ALT 12 U/L (0-33) 02/26/23 23:05 Alkaline Phosphatase 170 U/L (35-105) H 02/26/23 23:05 Troponin T Baseline 60 ng/L (0-10) H 02/26/23 23:05 Troponin T 120 Minute 140.0 ng/L (0-10) H 02/27/23 01:25 Delta Troponin T 80.0 ABS# (0-10) H* 02/27/23 01:25 NT-Pro-B Natriuret Pep 60308 pg/mL (0-125) H 02/26/23 23:05 Total Protein 6.8 g/dL (6.6-8.7) 02/26/23 23:05 Albumin 4.0 g/dL (3.5-5.2) 02/26/23 23:05 Globulin 2.8 g/dL (1.3-4.6) 02/26/23 23:05 Urine Color Yellow (Yellow) 02/26/23 23:43 Urine Appearance Clear (CLEAR) 02/26/23 23:43 Urine pH 6 (5-7) 02/26/23 23:43 Ur Specific Weld 1.010 (1.005-1.030) 02/26/23 23:43 Urine Protein 3+ (Negative) H 02/26/23 23:43 Urine Glucose (UA) 4+ (Normal) H 02/26/23 23:43 Urine Ketones Negative (Negative) 02/26/23 23:43 Urine Blood Trace (Negative) H 02/26/23 23:43 Urine Nitrate Negative (Negative) 02/26/23 23:43 Urine Bilirubin Neg (Negative) 02/26/23 23:43 Urine Urobilinogen Neg mg/dL (Negative) 02/26/23 23:43 Ur Leukocyte Esterase Negative (Negative) 02/26/23 23:43 Urine RBC Rare /hpf (0-2) 02/26/23 23:43 Urine WBC Rare /hpf (0-5) 02/26/23 23:43 Ur Squamous Epith Cells 10-15 /hpf (0-5) H 02/26/23 23:43 Amorphous Sediment Not Reportable 02/26/23 23:43 Urine Bacteria Trace /hpf (NONE) 02/26/23 23:43 XR interpretation done by ED provider, pending radiology final review Discharge Plan Discharge Patient Disposition: Admitted As Inpatient Admit Provider: Misa Landry Clinical Impression: NSTEMI (non-ST elevated myocardial infarction), HTN (hypertension), Chronic kidney disease Condition: Stable Coding Level of Care Code ED Construction Person for Kiran Holland
[2023-02-27] MEDS: FUROsemide 10 mg/mL SDV 10mL 60 MG IVP (00:50)
[2023-02-27] MEDS: iohexol 350 mg/mL 500 mL Btl (per mL) IV (01:01)
--- NOTE | 2023-02-27 01:08 | ECG_ITS ---
[facility] Test Date: 2023-02-26 Pat Name: Romi Yuan Department: Room: Gender: Female [facility]plement[facility] Therapists: : 1950 Requested By: Christian Huynh Order Number: [id number] Tessa MD: Tristin Goldstein M.D. Measurements Intervals Hughes Rate: 110 P: 71 MI: 170 QRS: -49 QRSD: 113 T: 75 QT: 344 QTc: 465 Interpretive Statements SINUS TACHYCARDIA LEFT AXIS DEVIATION [QRS AXIS < -30] INCOMPLETE RIGHT BUNDLE BRANCH BLOCK [90+ ms QRS DURATION, TERMINAL R IN V1/V2, 40+ ms S IN I/aVL/V4/V5/V6] LEFT VENTRICULAR HYPERTROPHY AND ST-T CHANGE [VOLTAGE CRITERIA PLUS ST/T ABNORMALITY] Compared to ECG 12/16/2022 15:07:48 Left-axis deviation now present Incomplete right bundle-branch block now present Left ventricular hypertrophy now present Possible ischemia no longer present Electronically Signed On 02-27-2023 7:12:27 CDT by Tristin Goldstein M.D. [email or web address]
[2023-02-27] MEDS: amlodipine 10 mg Tablet PO (01:48)
[2023-02-27] MEDS: labetalol 5 mg/mL SDV 20mL 20 MG IVP (01:49)
--- NOTE | 2023-02-27 02:59 | PC.NURSE ---
Report called to JENNIFER Cummings in CSU. All questions and concerns addressed at time of report.
--- NOTE | 2023-02-27 05:22 | PM.HP ---
Providers/Chief Complaint Admitting Physician: Misa Landry MD Primary Care Provider: Jocelyne Kirby Chief Complaint: CP History of Present Illness Romi Yuan is a 72 year old female with past medical history of hypertension, hyperlipidemia, diabetes, CAD s/p CABG presented to hospital with chest pain while bathing her dog earlier today. She is also c/o dyspnea, She received nitro and ASA en route via EMS and this relived her pain. She is currently chest pain free. baseline and 2 hr trop are elevated with significant delta. Also has evidence of CHF exacerbation. She has significant CKD. Also had multiple admissions with recurrent pulmonary edema.? EKG showed normal sinus rhythm without significant ischemic changes. She was last admitted here in August 2022 for NSTEMI and opted for medical mgmt in view of her CKD. Echocardiogram performed that admission showed slightly decreased LV systolic function compared to before and EF is 30 to 35%. Review of Systems General: Reports: 10 or more systems reviewed and unremarkable except in HPI and below Const: Denies: fever(s), chills or body aches Eyes: Denies: change in vision, blurry vision or photophobia ENMT: Reports: hoarseness; Denies: throat pain, enlarged tonsils, odynophagia or nasal congestion Card: Denies: chest pain, palpitations, irregular heart rhythm, edema, swelling of feet/ankles, lightheadedness, pre-syncope, dyspnea on exertion or orthopnea Resp: Denies: dyspnea, productive cough, non-productive cough, wheezing, stridor, pain on inspiration, change in phlegm color, hemoptysis or chest congestion GI: Denies: abdominal pain, nausea, vomiting, hematemesis, coffee ground emesis, dysphagia, heartburn, diarrhea, constipation, GI cramping, change in stool character, hematochezia or melena : Denies: flank pain, difficulty voiding, dysuria, urinary frequency, urinary urgency, urinary hesitancy or hematuria Musc: Denies: neck pain, back pain, extremity pain, joint swelling, joint warmth or deformity Neuro: Denies: headache(s), numbness in extremities, weakness in extremities, sensory changes, difficulty walking, frequent falls, dizziness, vertigo, behavioral changes, Slurred speech present or seizure-like activity Psych: Denies: anxiety, depression, suicidal ideation or homicidal ideation Endo: Denies: polyuria, polydipsia, tired all the time, cold intolerance or hot flashes Alonzo/Lymph: Denies: easy bruising or easy bleeding Medications/Allergies Home Medications Medication Instructions Recorded Confirmed Last Taken Type isosorbide mononitrate 60 mg 60 mg PO BID 07/20/19 02/27/23 02/26/23 History tablet,extended release 24 hr umeclidinium 62.5 mcg-vilanterol 1 inh inhalation DAILY 07/20/19 02/27/23 02/26/23 History 25 mcg/actuation powdr for inhalation (Anoro Ellipta) venlafaxine 150 mg 150 mg PO BEDTIME 07/20/19 02/27/23 02/26/23 21:00 History capsule,extended release 24 hr (Effexor XR) methimazole 5 mg tablet 5 mg PO DAILY #30 tabs 03/11/20 02/27/23 02/26/23 08:00 Rx blood sugar diagnostic (Accu-Chek #120 ea 06/23/21 02/27/23 Unknown Rx Ana M Plus test strips) clopidogrel 75 mg tablet (Plavix) 75 mg PO DAILY #60 tabs 06/15/22 02/27/23 02/26/23 08:00 Rx acitretin 10 mg capsule 10 mg PO QAM 06/19/22 02/27/23 02/26/23 08:00 History atorvastatin 40 mg tablet 40 mg PO BEDTIME 06/19/22 02/27/23 02/26/23 21:00 History venlafaxine 75 mg capsule,extended 75 mg PO BEDTIME 06/19/22 02/27/23 02/26/23 History release 24 hr docusate sodium 100 mg capsule 100 mg PO BID PRN Constipation 06/24/22 02/27/23 02/26/23 History (Colace) acetaminophen 500 mg tablet 500 mg PO BEDTIME 07/09/22 02/27/23 02/26/23 21:00 History albuterol sulfate 90 mcg/actuation 2 puff inhalation QID PRN 07/09/22 02/27/23 02/26/23 History aerosol inhaler (Ventolin HFA) Shortness Of Breath insulin lispro 100 unit/mL See Rx Instructions .Route .COMPLEX 07/09/22 02/27/23 02/26/23 History subcutaneous pen (Humalog KwikPen (U-100) Insulin) nitroglycerin 0.4 mg sublingual 0.4 mg sublingual Q5M PRN Chest 07/09/22 02/27/23 02/26/23 History tablet (Nitrostat) Pain tizanidine 4 mg tablet 4 mg PO BEDTIME 07/09/22 02/27/23 02/26/23 History metoprolol succinate 50 mg 50 mg PO QAM 08/25/22 02/27/23 02/26/23 08:00 History tablet,extended release 24 hr cholecalciferol (vitamin D3) 125 125 mcg PO .Weekly 09/07/22 02/27/23 Unknown History mcg (5,000 unit) capsule empagliflozin 10 mg tablet 10 mg PO DAILY 09/07/22 02/27/23 02/26/23 08:00 History (Jardiance) insulin detemir U-100 100 unit/mL 8 - 10 unit SUBCUT DAILY PRN blood 09/07/22 02/27/23 02/26/23 History (3 mL) subcutaneous pen (Levemir sugar FlexPen) potassium chloride 10 mEq 10 meq PO BID #180 tabs 11/26/22 02/27/23 02/26/23 Rx tablet,extended release meclizine 25 mg chewable tablet 25 mg PO TID PRN dizziness or 12/16/22 02/27/23 Unknown Rx (Antivert) vertigo #20 tabs aspirin 81 mg tablet,delayed 81 mg PO BEDTIME #90 tabs 01/27/23 02/27/23 02/26/23 08:00 Rx release hydralazine 50 mg tablet 50 mg PO BID #180 tabs 01/27/23 02/27/23 02/26/23 Rx furosemide 20 mg tablet 20 mg PO 1600 02/27/23 02/27/23 02/26/23 16:30 History furosemide 40 mg tablet 40 mg PO DAILY 02/27/23 02/27/23 02/26/23 08:00 History Allergies Allergy/AdvReac Type Severity Reaction Status Date / Time cefuroxime [From Ceftin] Allergy ALGY-Rash Verified 02/26/23 23:03 cephalexin [From Keflex] Allergy ALGY-Rash Verified 02/26/23 23:03 hydroxyzine [From Vistaril] Allergy ALGY-Anaphy Verified 02/26/23 23:03 laxis Penicillins Allergy ALGY-Redness Verified 02/26/23 23:03 of Skin prochlorperazine Allergy ALGY-Anaphy Verified 02/26/23 23:03 [From Compazine] laxis promethazine [From Phenergan] Allergy ALGY-Anaphy Verified 02/26/23 23:03 laxis venom-honey bee Allergy ALGY-Anaphy Verified 02/26/23 23:03 laxis simvastatin [From Zocor] AdvReac ADR-Heartbu Verified 02/26/23 23:03 rn PFSH Acute PFSH: Medical History Anxiety ASHD (arteriosclerotic heart disease) Carotid arterial disease CHF (congestive heart failure) Chronic kidney disease Clostridioides difficile infection (07/2022) Colon polyps COPD (chronic obstructive pulmonary disease) Diabetes mellitus Dyslipidemia Eczema Graves disease History of CVA (cerebrovascular accident) History of skin cancer HTN (hypertension) Hypertensive urgency Hyperthyroidism Insomnia PAD (peripheral artery disease) Pneumonia due to COVID-19 virus (~06/2022) Surgical History History of cardiac catheterization 06/25/2022 Left main artery: Short, patent. Left circumflex artery: Has patent stents, no significant stenosis. LAD:Occluded in the midsegment. RCA: Known occluded. Not injected. SVG to diagonal artery and SVG to RCA are known occluded. Not injected. LOVETT to LAD: Patent. Coronary anatomy unchanged compared to before. History of coronary artery stent placement History of endovascular stent graft for abdominal aortic aneurysm (AAA) History of renal stent Hx of local excision of skin lesion (09/16/20) Left forearm x2 S/P CABG (coronary artery bypass graft) twice, last in 2004 S/P cataract surgery S/P cholecystectomy S/P hysterectomy with oophorectomy S/P skin and subcutaneous tissue surgery Status post colonoscopy (09/16/20) Status post insertion of iliac artery stent Family History Sister Mark's disease Sister No problems noted. Mother No problems noted. Other Anesthesia complication Social History Smoking and tobacco status: former smoker Alcohol intake: current Alcohol intake frequency: holidays/special occasions only Substance/Drug Use: current Vitals/I&O/Wt Last Vital Signs Temp 98.5 F 02/27/23 03:40 Pulse 86 02/27/23 04:33 Resp 20 H 02/27/23 03:40 BP 199/102 02/27/23 03:40 Pulse Ox 98 02/27/23 03:40 O2 Del Method Nasal Cannula 02/27/23 03:47 O2 Flow Rate 2 02/27/23 01:53 Weight last 48 hrs Weight 60.781 kg Physical Exam Narrative: General: No acute distress, AO x3 HEENT: PERRLA, pupils bilaterally equal and reactive, pallors not present Chest: Normal vesicular breath sounds, no added sounds, equal good air entry bilaterally CVS: S1-S2 regular, no murmurs, no tachycardia, no gallops, no rubs Abdomen: Soft, nontender, no organomegaly, bowel sounds present Neuro: No focal deficits, no facial deformity, AO x3, power 5/5 in all limbs Data 02/27/23 05:25 02/26/23 23:05 Other data: Procedure(s): CV. echo complete* [id number] Accession Number(s): [id number] Report Number: [id number] FINDINGS ?Left Ventricle ?Left ventricle is normal in size. LV systolic function is ?severely reduced with EF of 30-35%. Severe global hypokinesis. ?Grade 1 diastolic dysfunction A&P Assessment and plan (1) NSTEMI (non-ST elevated myocardial infarction): Today with chest pain, elevated troponins, overall clinical picture concerning for NSTEMI. Troponin trend 60---> 140---> 351 Received aspirin 325 and sublingual nitro which has relieved her chest pain. Start heparin infusion Continue home doses of aspirin 81 mg daily and Plavix 75 mg daily Continue atorvastatin 40 mg daily Cardiology consulted in view of NSTEMI. Patient was last admitted in August with NSTEMI, elected for medical management at that time in view of her CKD and concern for progression to RICARDO. (2) CHF (congestive heart failure): Acute on chronic systolic and diastolic heart failure Last known EF 30 to 35% with global hypokinesia from August 2022. Received Lasix 60 mg IV in the emergency room following which her dyspnea is improving. Start scheduled Lasix 40 mg IV every 12 hours thereafter, closely monitor renal function and urine output. (3) HTN (hypertension): Blood pressure upon arrival to the emergency room 210/79. She has received labetalol and metoprolol IV pushes, 10 mg of p.o. amlodipine. Blood pressure improved for a while but thereafter now trending back up to 180/79. Add hydralazine as needed Continue home medications including hydralazine 50 twice daily, Imdur 60 twice daily, metoprolol 50 every morning (4) Diabetes mellitus: Insulin sliding scale Plan DVT prophylaxis: Currently on a heparin drip Full code Attestations Medical Necessity Statement*: Greater than 2 midnight admission is anticipated in view of NSTEMI, CHF exacerbation, need for heparin infusion, IV diuretics, cardiology assessment Coding Level of Care Code Acute Code for Chg Fwd High MDM includes number and complexity of problems actively addressed during encounter, amount and/or complexity of data reviewed/ordered and described risk of complication, morbidity or mortality of management as documented Diagnoses NSTEMI (non-ST elevated myocardial infarction) I21.4 CHF (congestive heart failure) I50.9 HTN (hypertension) I10 Diabetes mellitus E11.9
[2023-02-27 05:43] LABS: Platelet Count 280 10^3/cmm (157-399)
[2023-02-27] MEDS: heparin drip 25,000 UNIT/500 ML PREMIX 17 UNIT IV (05:57)
[2023-02-27] MEDS: metoprolol succinate ER (24 HR) 50 mg Tablet PO (05:58)
[2023-02-27] MEDS: heparin 5,000 unit/mL INJ 1 mL IV (05:58)
[2023-02-27 06:18] LABS: Troponin 5 6HR 351.9 ng/L (0-10); Troponin 5 6HR Delta 291.9 ng/L (0-12)
--- NOTE | 2023-02-27 06:30 | USCV_ITS ---
Romi Yuan Age: 72 Gender: F : 1950 Exam Date: 02/27/2023 07:15 Ordering Phys: Misa Landry MD Technologist: DANETTE Exam Location: [facility] – [place], [place] Indication: nstemi BP: 180 / 79 HR: 82 Rhythm: Sinus Technical Quality: Adequate MEASUREMENTS (Male / Female) Normal Values 2D ECHO LVOT Diameter 2.0 cm LV Ejection Fraction MOD 2C 36.0 % LV Ejection Fraction 2C AL 35.4 % LA Diameter 4.3 cm LA Width 3.9 cm LA Height 4.7 cm RA Width 3.5 cm RA Height 4.2 cm Aorta at Sinotubular Diameter 2.0 cm IVC Diameter 1.3 cm M-MODE Aortic Annulus Diameter 1.5 cm LA Ao Ratio MM 2.8 MV E Point Septal Separation 1.4 cm DOPPLER Right Atrial Pressure 3.0 mmHg FINDINGS Left Ventricle Right Ventricle Right Atrium Left Atrium Mitral Valve Aortic Valve Tricuspid Valve Pulmonic Valve Pericardium Aorta IVC CONCLUSIONS This is a limited echocardiogram performed to assess LV systolic function. LV systolic function is moderately reduced with EF of 35 to 40%. Moderate global hypokinesis. Compared to prior echocardiogram from 08/25/2022, LV systolic function appears to be slightly improved. Tristin Goldstein MD (Electronically Signed) Final Date: 27 February 2023 11:37 S
[2023-02-27] MEDS: hyDRALAzine 20 mg/mL INJ 1 mL 10 MG IVP (06:33)
[2023-02-27 08:48] LABS: Glucose Point of Care 225 mg/dL (70-110)
[2023-02-27] MEDS: isosorbide mononitrate ER 60 mg Tablet PO ×2 (09:02→17:26)
[2023-02-27] MEDS: pantoprazole DR 40 mg Tablet PO (09:02)
[2023-02-27] MEDS: FUROsemide 10 mg/mL SDV 4mL 40 MG IVP ×2 (09:02→20:14)
[2023-02-27] MEDS: clopidogrel 75 mg Tablet PO (09:02)
[2023-02-27] MEDS: aspirin 81 mg Chew Tablet PO (09:02)
[2023-02-27] MEDS: insulin lispro 100 unit/1 mL SUBCUT ×3 (09:02→21:26)
[2023-02-27] MEDS: methIMAzole 5 MG Tablet PO (09:02)
[2023-02-27] MEDS: hyDRALAzine 50 mg Tablet PO ×2 (09:02→17:26)
--- NOTE | 2023-02-27 09:27 | P.CONIM_ITS ---
Providers/Reason For Consult Consulting Physician/Specialty*: Tristin Goldstein MD/ Cardiology Reason for Consult*: NSTEMI Requesting Physician: Dr Landry Attending Physician: Misa Landry MD Primary Care Provider: Jocelyne Kirby History of Present Illness History of Present Illness Romi Yuan is a 72 year old female with past medical history of CAD s/p CABG, CKD who has some recurrent episodes of NSTEMI/obstructive pulmonary edema presented to hospital with chest pain. Troponins were elevated and trended up significantly. EKG shows sinus tachycardia with incomplete right bundle branch block.ECHO shows LV systolic function is moderately reduced but slightly improved from before. Review of Systems General: Reports: 10 or more systems reviewed and unremarkable except in HPI and below Const: Denies: fever(s), chills or body aches Eyes: Denies: change in vision, blurry vision or photophobia ENMT: Reports: hoarseness; Denies: throat pain, enlarged tonsils, odynophagia or nasal congestion Card: Denies: chest pain, palpitations, irregular heart rhythm, edema, swelling of feet/ankles, lightheadedness, pre-syncope, dyspnea on exertion or orthopnea Resp: Denies: dyspnea, productive cough, non-productive cough, wheezing, stridor, pain on inspiration, change in phlegm color, hemoptysis or chest congestion GI: Denies: abdominal pain, nausea, vomiting, hematemesis, coffee ground emesis, dysphagia, heartburn, diarrhea, constipation, GI cramping, change in stool character, hematochezia or melena : Denies: flank pain, difficulty voiding, dysuria, urinary frequency, urinary urgency, urinary hesitancy or hematuria Musc: Denies: neck pain, back pain, extremity pain, joint swelling, joint warmth or deformity Neuro: Denies: headache(s), numbness in extremities, weakness in extremities, sensory changes, difficulty walking, frequent falls, dizziness, vertigo, behavioral changes, Slurred speech present or seizure-like activity Psych: Denies: anxiety, depression, suicidal ideation or homicidal ideation Endo: Denies: polyuria, polydipsia, tired all the time, cold intolerance or hot flashes Alonzo/Lymph: Denies: easy bruising or easy bleeding Medications/Allergies Home Medications Medication Instructions Recorded Confirmed Last Taken Type isosorbide mononitrate 60 mg 60 mg PO BID 07/20/19 02/27/23 02/26/23 History tablet,extended release 24 hr umeclidinium 62.5 mcg-vilanterol 1 inh inhalation DAILY 07/20/19 02/27/23 02/26/23 History 25 mcg/actuation powdr for inhalation (Anoro Ellipta) venlafaxine 150 mg 150 mg PO BEDTIME 07/20/19 02/27/23 02/26/23 21:00 History capsule,extended release 24 hr (Effexor XR) methimazole 5 mg tablet 5 mg PO DAILY #30 tabs 03/11/20 02/27/23 02/26/23 08:00 Rx blood sugar diagnostic (Accu-Chek #120 ea 06/23/21 02/27/23 Unknown Rx Ana M Plus test strips) clopidogrel 75 mg tablet (Plavix) 75 mg PO DAILY #60 tabs 06/15/22 02/27/23 02/26/23 08:00 Rx acitretin 10 mg capsule 10 mg PO QAM 06/19/22 02/27/23 02/26/23 08:00 History atorvastatin 40 mg tablet 40 mg PO BEDTIME 06/19/22 02/27/23 02/26/23 21:00 History venlafaxine 75 mg capsule,extended 75 mg PO BEDTIME 06/19/22 02/27/23 02/26/23 History release 24 hr docusate sodium 100 mg capsule 100 mg PO BID PRN Constipation 06/24/22 02/27/23 02/26/23 History (Colace) acetaminophen 500 mg tablet 500 mg PO BEDTIME 07/09/22 02/27/23 02/26/23 21:00 History albuterol sulfate 90 mcg/actuation 2 puff inhalation QID PRN 07/09/22 02/27/23 02/26/23 History aerosol inhaler (Ventolin HFA) Shortness Of Breath insulin lispro 100 unit/mL See Rx Instructions .Route .COMPLEX 07/09/22 02/27/23 02/26/23 History subcutaneous pen (Humalog KwikPen (U-100) Insulin) nitroglycerin 0.4 mg sublingual 0.4 mg sublingual Q5M PRN Chest 07/09/22 02/27/23 02/26/23 History tablet (Nitrostat) Pain tizanidine 4 mg tablet 4 mg PO BEDTIME 07/09/22 02/27/23 02/26/23 History metoprolol succinate 50 mg 50 mg PO QAM 08/25/22 02/27/23 02/26/23 08:00 History tablet,extended release 24 hr cholecalciferol (vitamin D3) 125 125 mcg PO .Weekly 09/07/22 02/27/23 Unknown History mcg (5,000 unit) capsule empagliflozin 10 mg tablet 10 mg PO DAILY 09/07/22 02/27/23 02/26/23 08:00 History (Jardiance) insulin detemir U-100 100 unit/mL 8 - 10 unit SUBCUT DAILY PRN blood 09/07/22 02/27/23 02/26/23 History (3 mL) subcutaneous pen (Levemir sugar FlexPen) potassium chloride 10 mEq 10 meq PO BID #180 tabs 11/26/22 02/27/23 02/26/23 Rx tablet,extended release meclizine 25 mg chewable tablet 25 mg PO TID PRN dizziness or 12/16/22 02/27/23 Unknown Rx (Antivert) vertigo #20 tabs aspirin 81 mg tablet,delayed 81 mg PO BEDTIME #90 tabs 01/27/23 02/27/23 02/26/23 08:00 Rx release hydralazine 50 mg tablet 50 mg PO BID #180 tabs 01/27/23 02/27/23 02/26/23 Rx furosemide 20 mg tablet 20 mg PO 1600 02/27/23 02/27/23 02/26/23 16:30 History furosemide 40 mg tablet 40 mg PO DAILY 02/27/23 02/27/23 02/26/23 08:00 History Allergies Allergy/AdvReac Type Severity Reaction Status Date / Time cefuroxime [From Ceftin] Allergy ALGY-Rash Verified 02/26/23 23:03 cephalexin [From Keflex] Allergy ALGY-Rash Verified 02/26/23 23:03 hydroxyzine [From Vistaril] Allergy ALGY-Anaphy Verified 02/26/23 23:03 laxis Penicillins Allergy ALGY-Redness Verified 02/26/23 23:03 of Skin prochlorperazine Allergy ALGY-Anaphy Verified 02/26/23 23:03 [From Compazine] laxis promethazine [From Phenergan] Allergy ALGY-Anaphy Verified 02/26/23 23:03 laxis venom-honey bee Allergy ALGY-Anaphy Verified 02/26/23 23:03 laxis simvastatin [From Zocor] AdvReac ADR-Heartbu Verified 02/26/23 23:03 rn Current Medications Generic Name Dose Route Start Last Admin Trade Name Jameq PRN Reason Stop Dose Admin Aspirin 81 mg 02/27/23 09:00 02/27/23 09:02 Aspirin 81 Mg Chew Tablet PO 81 mg DAILY YASMANI Administration Clopidogrel Bisulfate 75 mg 02/27/23 09:00 02/27/23 09:02 Clopidogrel 75 Mg Tablet PO 75 mg DAILY YASMANI Administration Furosemide 40 mg 02/27/23 09:00 02/27/23 09:02 Furosemide 10 Mg/Ml Sdv 4ml IVP 40 mg Q12H YASMANI Administration Heparin Sodium (Porcine) 0 unit 02/27/23 05:15 02/27/23 05:58 Heparin 5,000 Unit/Ml Inj 1 Ml IV 3,100 unit PRN PRN Administration Heparin weight-base protocol Protocol Hydralazine HCl 10 mg 02/27/23 05:15 02/27/23 06:33 Hydralazine 20 Mg/Ml Inj 1 Ml IVP 10 mg Q4H PRN Administration SBP > 170 Hydralazine HCl 50 mg 02/27/23 09:00 02/27/23 09:02 Hydralazine 50 Mg Tablet PO 50 mg BID YASMANI Administration Heparin Sodium/Sodium Chloride 25,000 unit in 500 mls @ 0 mls/hr 02/27/23 05:15 02/27/23 06:08 Heparin Drip IV 13.98 unit/kg/hr .Q0M YASMANI 17 mls/hr Titration Protocol Per Protocol Insulin Human Lispro 0 unit 02/27/23 08:00 02/27/23 09:02 Insulin Lispro 100 Unit/1 Ml SUBCUT 8 unit WM&BEDTIME YASMANI Administration Protocol Isosorbide Mononitrate 60 mg 02/27/23 09:00 02/27/23 09:02 Isosorbide Mononitrate Er 60 Mg Tablet PO 60 mg BID YASMANI Administration Methimazole 5 mg 02/27/23 09:00 02/27/23 09:02 Methimazole 5 Mg Tablet PO 5 mg DAILY YASMANI Administration Metoprolol Succinate 50 mg 02/27/23 06:00 02/27/23 05:58 Metoprolol Succinate Er (24 Hr) 50 Mg Tablet PO 50 mg QAM YASMANI Administration Pantoprazole Sodium 40 mg 02/27/23 09:00 02/27/23 09:[address] 40 Mg Tablet PO 40 mg DAILY YASMANI Administration PFSH Acute PFSH: Medical History Anxiety ASHD (arteriosclerotic heart disease) Carotid arterial disease CHF (congestive heart failure) Chronic kidney disease Clostridioides difficile infection (07/2022) Colon polyps COPD (chronic obstructive pulmonary disease) Diabetes mellitus Dyslipidemia Eczema Graves disease History of CVA (cerebrovascular accident) History of skin cancer HTN (hypertension) Hypertensive urgency Hyperthyroidism Insomnia PAD (peripheral artery disease) Pneumonia due to COVID-19 virus (~06/2022) Surgical History History of cardiac catheterization 06/25/2022 Left main artery: Short, patent. Left circumflex artery: Has paten t stents, no significant stenosis. LAD:Occluded in the midsegment. RCA: Known occluded. Not injected. SVG to diagonal artery and SVG to RCA are known occluded. Not injected. LOVETT to LAD: Patent. Coronary anatomy unchanged compared to before. History of coronary artery stent placement History of endovascular stent graft for abdominal aortic aneurysm (AAA) History of renal stent Hx of local excision of skin lesion (09/16/20) Left forearm x2 S/P CABG (coronary artery bypass graft) twice, last in 2004 S/P cataract surgery S/P cholecystectomy S/P hysterectomy with oophorectomy S/P skin and subcutaneous tissue surgery Status post colonoscopy (09/16/20) Status post insertion of iliac artery stent Family History Sister Mark's disease Sister No problems noted. Mother No problems noted. Other Anesthesia complication Social History Smoking and tobacco status: former smoker Alcohol intake: current Alcohol intake frequency: holidays/special occasions only Substance/Drug Use: current Vitals/I&O/Wt Last Vital Signs Temp 98.5 F 02/27/23 03:40 Pulse 87 02/27/23 08:00 Resp 18 02/27/23 08:00 BP 174/73 02/27/23 08:00 Pulse Ox 97 02/27/23 08:00 O2 Del Method Room Air 02/27/23 08:00 O2 Flow Rate 2 02/27/23 06:29 02/26/23 02/27/23 02/27/23 22:59 06:59 14:59 Intake Total 3.117 / 3.117 Balance 3.117 / 3.117 Weight last 48 hrs Weight 134 lb Physical Exam Narrative: GENERAL: Patient is alert, awake and oriented x3. [] NECK: No jugular vein distension. [] HEENT: No cyanosis. No icterus. No pallor. [] HEART: Regular S1 and S2. No murmur, rub or gallop. [] LUNGS: Diminished breath sounds bilaterally, has mild crackles CENTRAL NERVOUS SYSTEM: Grossly nonfocal. [] EXTREMITIES: Lower extremities with 1+ edema bilaterally. Data 02/28/23 03:10 02/28/23 03:10 A&P Assessment and plan (1) PAD (peripheral artery disease): (2) Chronic kidney disease: (3) CHF (congestive heart failure): (4) NSTEMI (non-ST elevated myocardial infarction): (5) CAD (coronary artery disease): (6) HTN (hypertension): (7) Dyslipidemia: (8) Diabetes mellitus: Plan Patient does not want invasive work-up. She understands the risks of it. She has significant CKD. Continue dual antiplatelelet therapy. IV heparin for 48 hours. ECHO shows improved LV function Thank you for involving us with care of this patient. Patient is stable to be discharged from cardiology standpoint. Please call with questions. Consult Attestations Medical Necessity Statement: Care expected to cross 2 midnights. Coding Level of Care Code Acute Code for [facility] Fwd Diagnoses PAD (peripheral artery disease) I73.9 Chronic kidney disease N18.9 CHF (congestive heart failure) I50.9 NSTEMI (non-ST elevated myocardial infarction) I21.4 CAD (coronary artery disease) I25.10 HTN (hypertension) I10 Dyslipidemia E78.5 Diabetes mellitus E11.9
[2023-02-27 12:15] LABS: Partial Thromboplastin Time 119.1 SECONDS (23.9-36.7)
--- NOTE | 2023-02-27 12:27 | PM.MISC ---
Miscellaneous Note Note: Patient to resume her diet She does not want angiogram Continue ACS protocol for 48 hours with anticoagulation Start cardiac consistent carb diet Patient is want to change his CODE STATUS DNR/DNI
[2023-02-27 13:33] LABS: Glucose Point of Care 207 mg/dL (70-110)
[2023-02-27 17:30] LABS: Glucose Point of Care 90 mg/dL (70-110)
[2023-02-27 17:30] LABS: Glucose Point of Care 79 mg/dL (70-110)
[2023-02-27 17:30] LABS: Glucose Point of Care 288 mg/dL (70-110)
[2023-02-27] MEDS: venlafaxine ER (24HR) 150 mg Capsule PO (20:22)
[2023-02-27] MEDS: tizanidine 4 mg Tablet PO (20:22)
[2023-02-27] MEDS: atorvastatin 40 mg Tablet PO (20:22)
[2023-02-27 21:00] LABS: Partial Thromboplastin Time 79.6 SECONDS (23.9-36.7)
[2023-02-27 21:02] LABS: Glucose Point of Care 225 mg/dL (70-110)
[2023-02-28] VITALS (59 sets, daily range): BP systolic 102–206; BP diastolic 52–83; PULSE 49–82; RESP 7–25; TEMP 36.7–37.1; O2SAT 93–100
[2023-02-28 03:19] LABS: Basophils % 0.6 %; Eosinophils # 0.2 10^3/uL (0.0-0.8); Eosinophils % 2.4 %; Lymphocytes # 1.9 10^3/uL (0.8-4.8); Lymphocytes % 26.5 %; Mean Corpuscular HGB Conc 31.4 g/dL (30-55); Mean Corpuscular Hemoglobin 25.9 pg (27-33); Mean Corpuscular Volume 82.6 fl (85-98); Mean Platelet Volume 9.8 fL (7.4-10.4); Monocytes # 0.6 10^3/uL (0.2-0.9); Monocytes % 8.1 %; Neutrophils # 4.38 10^3/uL (1.8-7.7); Neutrophils % 62.1 %; Nucleated Red Blood Cells % 0 %; Platelet Count 231 10^3/cmm (157-399); Red Blood Count 4.36 10^6/uL (3.85-5.65); Red Cell Distribution Width 16.5 % (12.1-15.1); White Blood Count 7.05 10^3/uL (3.29-11.43)
[2023-02-28 03:36] LABS: Alanine Aminotransferase 9 U/L (0-33); Albumin Level 2.8 g/dL (3.5-5.2); Alkaline Phosphatase 113 U/L (35-105); Anion Gap 12.8 (5-19); Aspartate Amino Transferase 18 U/L (0-32); Blood Urea Nitrogen 25 mg/dL (8-23); Carbon Dioxide 26 mmol/L (22-29); Chloride 105 mmol/L (98-107); Globulin 2.8 g/dL (1.3-4.6); Glucose 86 mg/dL (65-115); Magnesium 2.1 mg/dL (1.7-2.3); Osmolality Calculated 294 mOsm/kg (285-295); Potassium 3.8 mmol/L (3.5-5.1); Sodium 140 mmol/L (136-145); Total Bilirubin 0.4 mg/dL (0.15-1.2); Total Protein 5.6 g/dL (6.6-8.7)
[2023-02-28 03:41] LABS: Partial Thromboplastin Time 83.2 SECONDS (23.9-36.7)
--- NOTE | 2023-02-28 06:18 | PC.NURSE ---
during the night patient's heart rate was bradycardic ranging from high 40's - low 60's, ER metoprolol 50mg PO due at 0600 this am. patients heart rate still mid to low 60's at this time. performed a one time dose adjustment to administer medication at 0900 with morning medications on day shift.
[2023-02-28 06:24] LABS: Glucose Point of Care 117 mg/dL (70-110)
[2023-02-28] MEDS: clopidogrel 75 mg Tablet PO (09:04)
[2023-02-28] MEDS: hyDRALAzine 50 mg Tablet PO ×2 (09:04→18:27)
[2023-02-28] MEDS: metoprolol succinate ER (24 HR) 50 mg Tablet PO (09:04)
[2023-02-28] MEDS: aspirin 81 mg Chew Tablet PO (09:04)
[2023-02-28] MEDS: FUROsemide 10 mg/mL SDV 4mL 40 MG IVP ×2 (09:04→20:07)
[2023-02-28] MEDS: pantoprazole DR 40 mg Tablet PO (09:04)
[2023-02-28] MEDS: isosorbide mononitrate ER 60 mg Tablet PO ×2 (09:04→18:27)
[2023-02-28] MEDS: methIMAzole 5 MG Tablet PO (09:04)
--- NOTE | 2023-02-28 09:28 | PM.PN ---
Subjective Subjective: To finish 48 hours on heparin No active pain at this point No overnight events Vitals/I&O/Wt Last Vital Signs Temp 98.0 F 02/28/23 04:00 Pulse 66 02/28/23 06:00 Resp 17 02/28/23 04:00 BP 155/60 02/28/23 04:00 Pulse Ox 98 02/28/23 04:00 O2 Del Method Room Air 02/28/23 04:00 O2 Flow Rate 2 02/27/23 06:29 02/27/23 02/28/23 02/28/23 22:59 06:59 14:59 Intake Total 452.083 / 827.800 301 / 1128.800 240 / 240 Output Total 1200 / 1200 400 / 1600 Balance -747.917 / -372.200 -99 / -471.200 240 / 240 Weight last 48 hrs Weight 60.781 kg Physical Exam Narrative: Awake and alert Pleasant well-appearing sitting at the bedside Eating breakfast Currently on room air GCS 15 Hemodynamically stable GCS 15 Data 02/28/23 03:10 02/28/23 03:10 A&P Assessment and plan (1) HTN (hypertension): (2) Dyslipidemia: (3) Diabetes mellitus: (4) PAD (peripheral artery disease): (5) Anxiety: (6) NSTEMI (non-ST elevated myocardial infarction): (7) CAD (coronary artery disease): Plan Non-STEMI Medical management Patient is DNR/DNI Finish 48 hours on heparin Likely discharge on Wednesday Optimize antianginal medications Chronic kidney disease: Creatinine at baseline CTA rule out PE Systolic CHF exacerbation continue Lasix EF is 35% Will suspect with cardiology Likely discharge tomorrow Attestations Medical Necessity Statement*: Discharge tomorrow Diagnoses HTN (hypertension) I10 Dyslipidemia E78.5 Diabetes mellitus E11.9 PAD (peripheral artery disease) I73.9 Anxiety F41.9 NSTEMI (non-ST elevated myocardial infarction) I21.4 CAD (coronary artery disease) I25.10
[2023-02-28 10:37] LABS: Partial Thromboplastin Time 41.7 SECONDS (23.9-36.7)
[2023-02-28 11:30] LABS: Glucose Point of Care 190 mg/dL (70-110)
--- NOTE | 2023-02-28 11:51 | PM.PN ---
Subjective Subjective: Patient is doing well. No chest pain. Vitals/I&O/Wt Last Vital Signs Temp 98.0 F 02/28/23 04:00 Pulse 61 02/28/23 09:30 Resp 24 H 02/28/23 09:30 BP 155/60 02/28/23 06:00 Pulse Ox 98 02/28/23 08:20 O2 Del Method Room Air 02/28/23 04:00 O2 Flow Rate 2 02/27/23 06:29 02/27/23 02/28/23 02/28/23 22:59 06:59 14:59 Intake Total 452.083 / 827.800 301 / 1128.800 314.983 / 314.983 Output Total 1200 / 1200 400 / 1600 Balance -747.917 / -372.200 -99 / -471.200 314.983 / 314.983 Weight last 48 hrs Weight 134 lb Physical Exam Narrative: GENERAL: Patient is alert, awake and oriented x3. [] NECK: No jugular vein distension. [] HEENT: No cyanosis. No icterus. No pallor. [] HEART: Regular S1 and S2. No murmur, rub or gallop. [] LUNGS: Diminished breath sounds bilaterally, has mild crackles CENTRAL NERVOUS SYSTEM: Grossly nonfocal. [] EXTREMITIES: Lower extremities with 1+ edema bilaterally. Data 03/01/23 05:54 02/28/23 03:10 A&P Assessment and plan (1) PAD (peripheral artery disease): (2) Chronic kidney disease: (3) CHF (congestive heart failure): (4) NSTEMI (non-ST elevated myocardial infarction): (5) CAD (coronary artery disease): (6) HTN (hypertension): (7) Dyslipidemia: (8) Diabetes mellitus: Plan Continue dual antiplatelet therapy with aspirin and Plavix. Tomorrow she will complete 48 hours of heparin drip. At that time she can be discharged. Thank you for involving us with care of this patient. Please call with questions. Attestations Medical Necessity Statement*: Care expected to cross 2 midnights. Coding Level of Care Code Acute Code for [facility] Diagnoses PAD (peripheral artery disease) I73.9 Chronic kidney disease N18.9 CHF (congestive heart failure) I50.9 NSTEMI (non-ST elevated myocardial infarction) I21.4 CAD (coronary artery disease) I25.10 HTN (hypertension) I10 Dyslipidemia E78.5 Diabetes mellitus E11.9
[2023-02-28] MEDS: insulin lispro 100 unit/1 mL SUBCUT ×2 (12:26→20:07)
[2023-02-28 16:36] LABS: Glucose Point of Care 132 mg/dL (70-110)
--- NOTE | 2023-02-28 17:28 | PC.NURSE ---
Called lab to come draw a scheduled timed PTT that was due at 16:45. They stated they would be on their way now.
[2023-02-28 18:14] LABS: Partial Thromboplastin Time 59.6 SECONDS (23.9-36.7)
[2023-02-28 19:28] LABS: Glucose Point of Care 278 mg/dL (70-110)
[2023-02-28] MEDS: atorvastatin 40 mg Tablet PO (20:07)
[2023-02-28] MEDS: venlafaxine ER (24HR) 150 mg Capsule PO (20:07)
[2023-02-28] MEDS: heparin drip 25,000 UNIT/500 ML PREMIX 13 UNIT IV (20:17)
--- NOTE | 2023-02-28 22:10 | PC.NURSE ---
Patient c/o feeling hot and sweaty. BS 57. PPatient alert & oriented. Given with milk and juice.
[2023-02-28 22:45] LABS: Glucose Point of Care 84 mg/dL (70-110)
[2023-02-28 22:45] LABS: Glucose Point of Care 57 mg/dL (70-110)
[2023-02-28 23:32] LABS: Glucose Point of Care 145 mg/dL (70-110)
[2023-02-28 23:42] LABS: Partial Thromboplastin Time 62.1 SECONDS (23.9-36.7)
[2023-03-01 04:00] VITALS: PULSE 70; RESP 72; O2SAT 100
[2023-03-01 05:53] LABS: Glucose Point of Care 203 mg/dL (70-110)
[2023-03-01 06:00] VITALS: PULSE 65
[2023-03-01] MEDS: metoprolol succinate ER (24 HR) 50 mg Tablet PO (06:03)
[2023-03-01 06:53] LABS: Platelet Count 285 10^3/cmm (157-399)
[2023-03-01 07:02] LABS: Partial Thromboplastin Time 61.1 SECONDS (23.9-36.7)
--- NOTE | 2023-03-01 07:46 | PM.PN ---
Subjective Subjective: Patient is doing well. No chest pain. Vitals/I&O/Wt Last Vital Signs Temp 98.7 F 02/28/23 23:28 Pulse 65 03/01/23 06:00 Resp 72 H 03/01/23 04:00 BP 159/64 02/28/23 23:28 Pulse Ox 100 03/01/23 04:00 O2 Del Method Room Air 02/28/23 23:28 O2 Flow Rate 2 02/27/23 06:29 02/28/23 03/01/23 03/01/23 22:59 06:59 14:59 Intake Total 593.1 / 1148.083 Output Total 870 / 870 415 / 1285 Balance -276.9 / 278.083 -415 / -136.917 Physical Exam Narrative: GENERAL: Patient is alert, awake and oriented x3. [] NECK: No jugular vein distension. [] HEENT: No cyanosis. No icterus. No pallor. [] HEART: Regular S1 and S2. No murmur, rub or gallop. [] LUNGS: Diminished breath sounds bilaterally, has mild crackles CENTRAL NERVOUS SYSTEM: Grossly nonfocal. [] EXTREMITIES: Lower extremities with 1+ edema bilaterally. Data 03/01/23 05:54 02/28/23 03:10 A&P Assessment and plan (1) PAD (peripheral artery disease): (2) Chronic kidney disease: (3) CHF (congestive heart failure): (4) NSTEMI (non-ST elevated myocardial infarction): (5) CAD (coronary artery disease): (6) HTN (hypertension): (7) Dyslipidemia: (8) Diabetes mellitus: Plan Patient is stable. No more chest pain. Continue with aspirin and Plavix. 48 hours of anticoagulation completed. Thank you for involving us with care of this patient. Please call with questions. Attestations Medical Necessity Statement*: Care expected to cross 2 midnights. Coding Level of Care Code Acute Code for [facility] Diagnoses PAD (peripheral artery disease) I73.9 Chronic kidney disease N18.9 CHF (congestive heart failure) I50.9 NSTEMI (non-ST elevated myocardial infarction) I21.4 CAD (coronary artery disease) I25.10 HTN (hypertension) I10 Dyslipidemia E78.5 Diabetes mellitus E11.9
[2023-03-01 07:50] VITALS: BP 171/97; PULSE 61; RESP 18; TEMP 37; O2SAT 97
[2023-03-01] MEDS: pantoprazole DR 40 mg Tablet PO (08:15)
[2023-03-01] MEDS: isosorbide mononitrate ER 60 mg Tablet PO (08:15)
[2023-03-01] MEDS: clopidogrel 75 mg Tablet PO (08:15)
[2023-03-01] MEDS: methIMAzole 5 MG Tablet PO (08:15)
[2023-03-01] MEDS: aspirin 81 mg Chew Tablet PO (08:15)
[2023-03-01] MEDS: hyDRALAzine 50 mg Tablet PO (08:15)
[2023-03-01] MEDS: insulin lispro 100 unit/1 mL SUBCUT (08:16)
--- NOTE | 2023-03-01 08:47 | P.DS_ITS ---
Discharge Providers Date of Admission: 02/27/23 02:43 Date of Discharge: February 28, 2023 Attending Provider at Admission: Misa Landry MD Attending Provider at Discharge: Smiley Hanson MD Primary Care Provider: Jocelyne Kirby Diagnoses at Discharge Discharge Diagnosis (1) NSTEMI (non-ST elevated myocardial infarction): Status: Acute (2) CHF (congestive heart failure): Status: Chronic (3) HTN (hypertension): Status: Chronic (4) Diabetes mellitus: Status: Chronic Reason for Visit Reason for Visit: CP Hospital Course Hospital Course 72-year-old female with chronic angina, past medical history significant for chronic kidney disease creatinine seems to be around 2, CABG, presented to hospital for chief complaint of shortness of breath and chest pain she was diagnosed with non-STEMI she was put on ACS protocol she received anticoagulating agent for 48 hours, patient stated that she would not go for coronary angiogram, cardiology was consulted, medical management was recommended, angiogram earlier this year showed nonlimiting bill coronary disease. Patient is on metoprolol succinate, Imdur, dual antiplatelet therapy. Her heart rate stays around 60 and goes below 60 when she sleeps, she needs optimization of her antianginal medications. She will be discharged back home with close follow-up with cardiology. Her EF is 30 to 35%. She is at risk of recurrent admissions. Physical Exam Narrative: Signs of fluid overload improving No active chest pain She is a 50 Nonfocal neuro exam Currently on room air Pleasant and cooperative Discharge Data Studies Completed and Pending Completed Studies During Hospitalization Category Date Time Status CT angio chest PE protcl [id number] Urgent Cat Scan 02/26/23 23:38 Completed XR chest 1V portable [id number] Stat Exams 02/26/23 23:08 Completed CV. echo limited [id number] Routine Ultrasound 02/27/23 06:30 Completed Pending at discharge Category Date Time Status PTT [Partial Thromboplastin Time] Timed Lab 02/28/23 10:00 Ordered Platelet Count Q2D Lab 03/01/23 04:00 Ordered Platelet Count Q2D Lab 03/03/23 04:00 Ordered Radiology Impressions Chest X-Ray 02/26/23 23:08 IMPRESSION: Cardiomegaly, negative for infiltrate. Chest CTA 02/26/23 23:38 IMPRESSION: 1. Negative for pulmonary embolus. 2. Cardiomegaly. 3. Coronary artery atherosclerotic calcifications. 4. Left adrenal hypertrophy. 5. Bilateral renal cysts incompletely visualized. 6. Bilateral punctate nonobstructing renal calyceal stones. 7. Sternotomy wires. 8. Emphysematous changes. 9. Minimal dependent atelectasis. 10. Ascending thoracic aorta mildly dilated 3.3 cm. COMMENTS: 1. Consistent with the [employer]'s Incidental Findings Committee white paper (J Am Zayra Radiol 2018): Any incidental renal lesion less than 1 cm or classified as too small to characterize, or any incidental cystic renal lesion characterized as simple-appearing, is likely benign. No follow-up imaging is recommended for these lesions per consensus recommendations based on imaging criteria. 2. In the absence of a history or active diagnosis of lung cancer, it is recommended that this patient with emphysema be evaluated for enrollment in a low dose CT lung cancer screening program. Laboratory Results WBC 7.05 10^3/uL (3.29-11.43) 02/28/23 03:10 RBC 4.36 10^6/uL (3.85-5.65) 02/28/23 03:10 Hgb 11.30 g/dL (11.27-16.99) 02/28/23 03:10 Hct 36.0 % (36-47) 02/28/23 03:10 MCV 82.6 fl (85-98) L 02/28/23 03:10 MCH 25.9 pg (27-33) L 02/28/23 03:10 MCHC 31.4 g/dL (30-55) 02/28/23 03:10 RDW 16.5 % (12.1-15.1) H 02/28/23 03:10 Plt Count 231 10^3/cmm (157-399) 02/28/23 03:10 MPV 9.8 fL (7.4-10.4) 02/28/23 03:10 Neut % (Auto) 62.1 % 02/28/23 03:10 Lymph % (Auto) 26.5 % 02/28/23 03:10 [place] % (Auto) 8.1 % 02/28/23 03:10 Eos % (Auto) 2.4 % 02/28/23 03:10 Baso % (Auto) 0.6 % 02/28/23 03:10 Neut # (Auto) 4.38 10^3/uL (1.8-7.7) 02/28/23 03:10 Lymph # (Auto) 1.9 10^3/uL (0.8-4.8) 02/28/23 03:10 [place] # (Auto) 0.6 10^3/uL (0.2-0.9) 02/28/23 03:10 Eos # (Auto) 0.2 10^3/uL (0.0-0.8) 02/28/23 03:10 Baso # (Auto) 0.0 10^3/uL (0.0-0.1) 02/28/23 03:10 Nucleated RBC % (auto) 0 % 02/28/23 03:10 Nucleated RBCs # 0.0 /100WBC 02/28/23 03:10 PT 13.40 SECONDS (12.1-14.9) 02/26/23 23:05 INR 0.99 (0.8-1.2) 02/26/23 23:05 APTT 83.2 SECONDS (23.9-36.7) H 02/28/23 03:10 Specimen Type Arterial 02/27/23 00:25 Sample Site Brachial, right 02/27/23 00:25 ABG pH 7.38 (7.35-7.45) 02/27/23 00:25 ABG pCO2 36.7 mmHg (35-45) 02/27/23 00:25 ABG pO2 74.5 mmHg (80.0-100.0) L 02/27/23 00:25 ABG HCO3 21.6 mmol/L (22-26) L 02/27/23 00:25 ABG Base Excess -3.1 mmol/L (-2.0-2.0) L 02/27/23 00:25 Rene Test N/a 02/27/23 00:25 Hematocrit 40.6 % (37-47) 02/27/23 00:25 O2 Delivery Device Nc 02/27/23 00:25 O2 Liters/Min 2.0 % 02/27/23 00:25 FiO2 28.0 % 02/27/23 00:25 Fire Equipment Operator ID [email or web address] 02/27/23 00:25 Sodium 140 mmol/L (136-145) 02/28/23 03:10 Potassium 3.8 mmol/L (3.5-5.1) 02/28/23 03:10 Chloride 105 mmol/L (98-107) 02/28/23 03:10 Carbon Dioxide 26 mmol/L (22-29) 02/28/23 03:10 Anion Gap 12.8 (5-19) 02/28/23 03:10 BUN 25 mg/dL (8-23) H 02/28/23 03:10 Creatinine 2.1 mg/dL (0.5-0.9) H 02/28/23 03:10 GFR Calculation Not Reportable 02/28/23 03:10 Glucose 86 mg/dL (65-115) 02/28/23 03:10 POC Glucose 117 mg/dL (70-110) H 02/28/23 06:14 Calculated Osmolality 294 mOsm/kg (285-295) 02/28/23 03:10 Calcium 9.0 mg/dL (8.5-10.5) 02/28/23 03:10 Magnesium 2.1 mg/dL (1.7-2.3) 02/28/23 03:10 Total Bilirubin 0.4 mg/dL (0.15-1.2) 02/28/23 03:10 AST 18 U/L (0-32) 02/28/23 03:10 ALT 9 U/L (0-33) 02/28/23 03:10 Alkaline Phosphatase 113 U/L (35-105) H 02/28/23 03:10 Troponin T Baseline 60 ng/L (0-10) H 02/26/23 23:05 Troponin T 120 Minute 140.0 ng/L (0-10) H 02/27/23 01:25 Delta Troponin T 80.0 ABS# (0-10) H* 02/27/23 01:25 Troponin T Hi Sens 6Hr 351.9 ng/L (0-10) H 02/27/23 05:25 Troponin T Hi Sens 6Hr Delta 291.9 ng/L (0-12) H* 02/27/23 05:25 NT-Pro-B Natriuret Pep 68320 pg/mL (0-125) H 02/26/23 23:05 Total Protein 5.6 g/dL (6.6-8.7) L 02/28/23 03:10 Albumin 2.8 g/dL (3.5-5.2) L 02/28/23 03:10 Globulin 2.8 g/dL (1.3-4.6) 02/28/23 03:10 Urine Color Yellow (Yellow) 02/26/23 23:43 Urine Appearance Clear (CLEAR) 02/26/23 23:43 Urine pH 6 (5-7) 02/26/23 23:43 Ur Specific [place] 1.010 (1.005-1.030) 02/26/23 23:43 Urine Protein 3+ (Negative) H 02/26/23 23:43 Urine Glucose (UA) 4+ (Normal) H 02/26/23 23:43 Urine Ketones Negative (Negative) 02/26/23 23:43 Urine Blood Trace (Negative) H 02/26/23 23:43 Urine Nitrate Negative (Negative) 02/26/23 23:43 Urine Bilirubin Neg (Negative) 02/26/23 23:43 Urine Urobilinogen Neg mg/dL (Negative) 02/26/23 23:43 Ur Leukocyte Esterase Negative (Negative) 02/26/23 23:43 Urine RBC Rare /hpf (0-2) 02/26/23 23:43 Urine WBC Rare /hpf (0-5) 02/26/23 23:43 Ur Squamous Epith Cells 10-15 /hpf (0-5) H 02/26/23 23:43 Amorphous Sediment Not Reportable 02/26/23 23:43 Urine Bacteria Trace /hpf (NONE) 02/26/23 23:43 Vitals Last Vital Signs Temp 98.0 F 02/28/23 04:00 Pulse 66 02/28/23 06:00 Resp 17 02/28/23 04:00 BP 155/60 02/28/23 04:00 Pulse Ox 98 02/28/23 04:00 O2 Del Method Room Air 02/28/23 04:00 O2 Flow Rate 2 02/27/23 06:29 Discharge Plan Discharge Patient Disposition: Home Condition: Stable Prescriptions: Continued Anoro Ellipta 62.5-25 mcg/actuation blister with device 1 inh INHALATION DAILY isosorbide mononitrate 60 mg tablet extended release 24 hr 60 mg PO BID venlafaxine [Effexor XR] 150 mg capsule,extended release 24hr 150 mg PO BEDTIME Rx Instructions: TAKE WITH 75 MG cholecalciferol (vitamin D3) 125 mcg (5,000 unit) capsule 125 mcg PO .Weekly potassium chloride 10 mEq tablet extended release 10 meq PO BID Qty: 180 1RF Jardiance 10 mg tablet 10 mg PO DAILY aspirin 81 mg tablet,delayed release (DR/EC) 81 mg PO BEDTIME Qty: 90 3RF hydralazine 50 mg tablet 50 mg PO BID Qty: 180 2RF methimazole 5 mg tablet 5 mg PO DAILY Qty: 30 3RF (DME) Accu-Chek Ana M Plus test strp Strip See Rx Instructions .ROUTE .MEDSUPPLY Qty: 120 3RF Rx Instructions: check blood glucose four times a day tizanidine 4 mg tablet 4 mg PO BEDTIME nitroglycerin [Nitrostat] 0.4 mg Tablet, Sublingual 0.4 mg SUBLINGUAL Q5M PRN (Reason: Chest Pain) Rx Instructions: do not exceed 3 doses per episode insulin lispro [Humalog KwikPen Insulin] 100 unit/mL Insulin Pen See Rx Instructions .ROUTE .COMPLEX Rx Instructions: sliding scale tid prn blood sugar acetaminophen 500 mg Tablet 500 mg PO BEDTIME albuterol sulfate [Ventolin HFA] 90 mcg/actuation Hfa Aerosol Inhaler 2 puff INHALATION QID PRN (Reason: Shortness Of Breath) Levemir FlexPen 100 unit/mL (3 mL) insulin pen 8 - 10 unit SUBCUT DAILY PRN (Reason: blood sugar) furosemide 40 mg Tablet 40 mg PO DAILY furosemide 20 mg Tablet 20 mg PO 1600 clopidogrel [Plavix] 75 mg tablet 75 mg PO DAILY Qty: 60 0RF atorvastatin 40 mg tablet 40 mg PO BEDTIME venlafaxine 75 mg capsule,extended release 24hr 75 mg PO BEDTIME Rx Instructions: TAKE WITH 150 MG acitretin 10 mg capsule 10 mg PO QAM docusate sodium [Colace] 100 mg capsule 100 mg PO BID PRN (Reason: Constipation) metoprolol succinate 50 mg tablet extended release 24 hr 50 mg PO QAM Discontinued meclizine [Antivert] 25 mg tablet,chewable 25 mg PO TID PRN (Reason: dizziness or vertigo) Qty: 20 0RF Discharge Orders: Discharge Order (Routine); Ordered 03/01/23 Ordered By: Smiley Hanson Referrals: Katherin Win FNP [Nurse Practitioner] - 1 week (We have notified [facility] of the need for a follow-up appointment to be scheduled. If you have not heard from them within the next 2 business days, please call them directly. You may also reach out to our manager of data at [phone] and she can assist you.) Jocelyne Kirby PA [Primary Care Provider] - 4-7 days (Please call for an follow- up appointment within 4 to 7 days. ) Patient Instructions: Heart Failure (DC), CHF Stoplight, Opioid Safety, Post Heart Attack Stoplight Discharge Attestations Time Spent in Discharge Care*: greater than 30 min Status at Discharge: Cognitive status at discharge: cognitively intact , Behavioral status at discharge: cooperative , Quality Metrics Clinical Quality Measures [ No reported AMI, CVA or VTE this stay] Coding Level of Care Code Acute Code for Chg Fwd Diagnoses NSTEMI (non-ST elevated myocardial infarction) I21.4 CHF (congestive heart failure) I50.9 HTN (hypertension) I10 Diabetes mellitus E11.9
[2023-03-01 09:42] VITALS: BP 171/97; PULSE 61; RESP 18; TEMP 37; O2SAT 97
--- NOTE | 2023-03-01 10:18 | PC.NURSE ---
Discharge Note Patient discharged to [home] via [w/c] accompanied by [friend]. Discharge instructions reviewed with patient and/or passenger representative. Mobile pharmacy medications and/or prescriptions provided. Belongings/home medications returned.
== END 2023-03-01 10:15 | disposition home or self-care (01) | DRG 281 ==
LOC: ER 02-27 00:38 → CSU 02-27 02:55
PROVIDERS: Internal Medicine; Admitting Provider Student in an Organized Health Care Education/Training Program; Emergency Provider Emergency Medicine; PCP Physician Assistant; Visit Provider Internal Medicine
DX: I21.4 Non-ST elevation (NSTEMI) myocardial infarction (principal); I13.0 Hypertensive heart and chronic kidney disease with heart failure and stage 1 through stage 4 chronic kidney disease, or unspecified chronic kidney disease; I50.22 Chronic systolic (congestive) heart failure; N18.9 Chronic kidney disease, unspecified; E11.22 Type 2 diabetes mellitus with diabetic chronic kidney disease; I25.10 Atherosclerotic heart disease of native coronary artery without angina pectoris; Z95.1 Presence of aortocoronary bypass graft; Z95.5 Presence of coronary angioplasty implant and graft; Z79.84 Long term (current) use of oral hypoglycemic drugs; Z79.82 Long term (current) use of aspirin; Z79.4 Long term (current) use of insulin; Z79.51 Long term (current) use of inhaled steroids; Z79.02 Long term (current) use of antithrombotics/antiplatelets; E78.5 Hyperlipidemia, unspecified; F41.9 Anxiety disorder, unspecified; J44.9 Chronic obstructive pulmonary disease, unspecified; Z86.73 Personal history of transient ischemic attack (TIA), and cerebral infarction without residual deficits; Z85.828 Personal history of other malignant neoplasm of skin; E11.51 Type 2 diabetes mellitus with diabetic peripheral angiopathy without gangrene; Z87.01 Personal history of pneumonia (recurrent); Z86.16 Personal history of COVID-19; Z87.891 Personal history of nicotine dependence; Z66 Do not resuscitate
CPT/HCPCS: 36415; 36416; 36600; 71045; 71275; 80053; 81001; 82803; 82962; 83735; 83880; 84484; 85025; 85049; 85610; 85730; 93005; 93308; 94640; 96372; 96374; 96375; 96376; 99285; A9270; J0360; J1644; J1815; J1940; J2405; J3490; Q9967

== ENCOUNTER 2023-04-17 14:33 | Observation (INO) | payer MEDICARE, MEDICAID, SELFPAY ==
[2023-04-17] VITALS (39 sets, daily range): BP systolic 142–249; BP diastolic 67–154; PULSE 100–140; RESP 16–34; TEMP 36.8–37; O2SAT 88–99; BMI 26.2
--- NOTE | 2023-04-17 14:36 | ECG_ITS ---
[facility] Test Date: 2023-04-17 Pat Name: Romi Yuan Department: Room: Gender: Female Wall Worker: : 1950 Requested By: Narayan Siddiqi Order Number: [id number] Reading MD: Nohemy Christianson M.D. Measurements Intervals [place] Rate: 104 P: 71 NE: 169 QRS: -48 QRSD: 113 T: 82 QT: 354 QTc: 466 Interpretive Statements SINUS TACHYCARDIA INCOMPLETE RIGHT BUNDLE BRANCH BLOCK LEFT ANTERIOR FASCICULAR BLOCK LEFT VENTRICULAR HYPERTROPHY AND ST-T CHANGE Compared to ECG 02/26/2023 22:59:43 Right ventricular hypertrophy now present Left anterior fascicular block now present Left-axis deviation no longer present ST (T wave) deviation still present Electronically Signed On 04-19-2023 18:44:17 OFFAL SEPARATOR by Nohemy Christianson M.D. [id number]
--- NOTE | 2023-04-17 14:50 | XRR_ITS ---
PROCEDURE INFORMATION: Exam: XR Chest Exam date and time: 04/17/2023 3:18 PM Age: 72 years old Clinical indication: Chest pressure; Prior surgery; Surgery date: 6+ months; Patient HX: Chest pain; HX HTN, diabetes, copd, asthma; Cabg x 2; Ex smoker (40+ yrs); Cabg x 2 TECHNIQUE: Imaging protocol: Radiologic exam of the chest. Views: 1 view. COMPARISON: CR (CHEST, ) 02/26/2023 11:12 PM FINDINGS: Lungs: Unremarkable. No consolidation. Pleural spaces: Unremarkable. No pleural effusion. No pneumothorax. Heart/Mediastinum: Similar cardiomegaly. Sequela of prior CABG. Bones/joints: Sternotomy wires noted. XR/XR chest 1V portable [id number] IMPRESSION: Stable exam, no acute findings.
[2023-04-17 14:56] LABS: Basophils % 0.2 %; Eosinophils # 0.1 10^3/uL (0.0-0.8); Eosinophils % 0.8 %; Hematocrit 40.2 % (36-47); Lymphocytes # 2.8 10^3/uL (0.8-4.8); Lymphocytes % 20.8 %; Mean Corpuscular HGB Conc 30.8 g/dL (30-55); Mean Corpuscular Hemoglobin 25.5 pg (27-33); Mean Corpuscular Volume 82.7 fl (85-98); Mean Platelet Volume 10.2 fL (7.4-10.4); Monocytes # 0.7 10^3/uL (0.2-0.9); Neutrophils # 9.72 10^3/uL (1.8-7.7); Neutrophils % 72.9 %; Nucleated Red Blood Cells % 0 %; Platelet Count 322 10^3/cmm (157-399); Red Blood Count 4.86 10^6/uL (3.85-5.65); White Blood Count 13.32 10^3/uL (3.29-11.43)
[2023-04-17 15:10] LABS: Troponin(5th) Baseline 83 ng/L (0-10)
[2023-04-17 15:20] LABS: Alanine Aminotransferase 15 U/L (0-33); Albumin Level 3.7 g/dL (3.5-5.2); Alkaline Phosphatase 164 U/L (35-105); Aspartate Amino Transferase 23 U/L (0-32); Blood Urea Nitrogen 23 mg/dL (8-23); Calcium 9.1 mg/dL (8.5-10.5); Carbon Dioxide 22 mmol/L (22-29); Chloride 104 mmol/L (98-107); Globulin 3.4 g/dL (1.3-4.6); Glucose 189 mg/dL (65-115); Osmolality Calculated 297 mOsm/kg (285-295); Sodium 139 mmol/L (136-145); Total Bilirubin 0.4 mg/dL (0.15-1.2); Total Protein 7.1 g/dL (6.6-8.7)
[2023-04-17 15:22] LABS: Anion Gap 17.1 (5-19); Potassium 4.1 mmol/L (3.5-5.1)
[2023-04-17] MEDS: methylPREDNISolone sod succ 60 MG in water for injection-sterile 0.96 ML 11.52 MG IVP (15:33)
[2023-04-17 15:40] LABS: NT Pro B Type Natriuretic Pept 33926 pg/mL (0-125)
[2023-04-17] MEDS: FUROsemide 10 mg/mL SDV 4mL 40 MG IVP (16:33)
--- NOTE | 2023-04-17 16:42 | ED_ITS ---
HPI - Chest Pain General: Chief Complaint: Chest Pain Stated Complaint: CHEST PAIN Time Seen by Provider: 04/17/23 14:36 History of Present Illness: 70-year-old female with complex medical history including coronary disease, PDA, COPD, history of tobacco abuse, diabetes, CHF, hypertension. Presents emergency room via EMS with chest pain. According to patient pain started few hours ago and described pain as sharp sensation mostly across the chest with severity of 7 out of 10. Patient was given aspirin and nitro in route to the emergency room. Upon present emergency room patient was found to be chest pain-free. No acute distress. Associated symptoms: Reports dyspnea; Deny abdominal pain, fever(s), nausea, palpitations, syncope or vomiting Review of Systems General: Reports: 10 or more systems reviewed and unremarkable except in HPI and below Const: Denies: fever(s), chills or body aches Card: Reports: chest pain; Denies: palpitations, irregular heart rhythm, swelling of feet/ankles, lightheadedness, syncope, dyspnea on exertion or orthopnea Resp: Reports: dyspnea and wheezing; Denies: productive cough or non-productive cough GI: Denies: abdominal pain, nausea, vomiting or hematemesis : Denies: flank pain, difficulty voiding or dysuria PFSH ED PFSH: Medical History (Updated 04/18/23 @ 11:53 by Paulino Gomez MD) Anxiety ASHD (arteriosclerotic heart disease) CAD (coronary artery disease) Carotid arterial disease CHF (congestive heart failure) Chronic kidney disease Clostridioides difficile infection (07/2022) Colon polyps COPD (chronic obstructive pulmonary disease) Diabetes mellitus Dyslipidemia Eczema Graves disease History of CVA (cerebrovascular accident) History of skin cancer HTN (hypertension) Hypertensive urgency Hyperthyroidism Insomnia NSTEMI (non-ST elevated myocardial infarction) PAD (peripheral artery disease) Pneumonia due to COVID-19 virus (~06/2022) Surgical History History of cardiac catheterization 06/25/2022 Left main artery: Short, patent. Left circumflex artery: Has patent stents, no significant stenosis. LAD:Occluded in the midsegment. RCA: Known occluded. Not injected. SVG to diagonal artery and SVG to RCA are known occluded. Not injected. LOVETT to LAD: Patent. Coronary anatomy unchanged compared to before. History of coronary artery stent placement History of endovascular stent graft for abdominal aortic aneurysm (AAA) History of renal stent Hx of local excision of skin lesion (09/16/20) Left forearm x2 S/P CABG (coronary artery bypass graft) twice, last in 2004 S/P cataract surgery S/P cholecystectomy S/P hysterectomy with oophorectomy S/P skin and subcutaneous tissue surgery Status post colonoscopy (09/16/20) Status post insertion of iliac artery stent Family History Sister Mark's disease Sister No problems noted. Mother No problems noted. Other Anesthesia complication Social History Smoking and tobacco/nicotine status: former use of tobacco/nicotine Alcohol intake: current Alcohol intake frequency: holidays/special occasions only Substance/Drug Use: current Physical Exam Const: COMMON NORMALS: no acute distress, average body habitus, patient oriented x3, no limitations, healthy appearing, alert and well nourished HENMT: COMMON NORMALS: normocephalic, atraumatic, hearing grossly normal bilaterally, external ears normal, EAC's normal, TM's normal bilaterally, Normal external nose present, Normal nasal mucous membranes and turbinates present, moist oral mucous membranes, oropharynx normal, dentition normal and gingiva normal HEAD & SCALP: normocephalic and atraumatic NOSE: Normal external n ose present and Normal nasal mucous membranes and turbinates present EXTERNAL EAR: Yes external ears normal EXTERNAL AUDITORY CANAL: EAC's normal TYMPANIC MEMBRANE: TM's normal bilaterally Neck/C-Spine: COMMON NORMALS: full ROM, no lymphadenopathy, supple, no menin geal signs, no JVD, Thyroid normal and No carotid bruits THYROID: Thyroid normal Chest: COMMONS NORMALS: normal inspection of the chest, normal palpation of entire chest wall, normal inspection of the breasts and normal palpation of the breasts Breast/axilla inspection: Yes normal inspection of the breasts BREAST/AXILLA PALPATION: Yes normal palpation of the breasts Resp: COMMON NORMALS: normal respiratory effort, No retractions, No use of accessory muscles and percussion normal AUSCULTATION: no crackles, no rales, no rhonchi, wheezes, breath sounds present, no bronchial breath sounds and no bronchovesicular breath sounds PERCUSSION: percussion normal Cardio: COMMON NORMALS: no JVD and regular rhythm RATE: tachycardic RHYTHM: regular rhythm GI: COMMON NORMALS: Normal to inspection, nondistended, normoactive bowel sounds present, Soft to palpation, non-tender, No hepatosplenomegaly present, no masses and no bruits PALPATION: Yes Soft to palpation and Yes No hepatosplenomegaly present Neuro: COMMON NORMALS: patient oriented x3 SENSORIUM/ORIENTATION: Yes alert MENINGEAL SIGNS: Yes no meningeal signs Course Reevaluation(s): Reevaluation #1: Patient reassessed at this time patient is resting comfortably in acute distress still pain-free Consultations: Consultation #1: Discussed patient with the hospitalist at this time and she recommended consultation with accounting software specialist Consultation #2: Spoke with accounting software specialist and recommended low-dose Lovenox and admit for observation given her complex medical history. Vital Signs: Vital signs: Vital Signs Temperature 97.8 F 04/18/23 07:53 Pulse Rate 101 H 04/18/23 08:20 Respiratory Rate 16 04/18/23 08:20 Blood Pressure 145/72 04/18/23 07:53 Pulse Oximetry 100 04/18/23 08:20 Oxygen Delivery Me thod Nasal Cannula 04/18/23 08:20 Oxygen Flow Rate 2 04/18/23 08:20 Fraction of Inspir ed Oxygen 30 04/17/23 20:28 MDM - Chest Pain Medical Decision Making Patient made comfortable emergency room. Patient extensive work-up with CBC, CMP, troponin, BMP. Patient was given IV Lasix DuoNeb, steroid. I discussed patient with accounting software specialist and the hospitalist. I was able to review past medical history and records including recent discharge instruction and cath report. Differential Diagnosis Likely acute massive pulmonary embolism, acute respiratory failure, acute myocardial infarction, cardiac arrest and sudden cardiac Lab Data 04/18/23 03:29 04/18/23 03:29 Radiology Impressions Chest X-Ray 04/17/23 14:50 IMPRESSION: Stable exam, no acute findings. Pulmonary Perfusion Imaging 04/18/23 20:13 IMPRESSION: Intermediate probability of pulmonary embolism. Laboratory Results WBC 13.32 10^3/uL (3.29-11.43) H 04/17/23 14:41 RBC 4.86 10^6/uL (3.85-5.65) 04/17/23 14:41 Hgb 12.40 g/dL (11.27-16.99) 04/17/23 14:41 Hct 40.2 % (36-47) 04/17/23 14:41 MCV 82.7 fl (85-98) L 04/17/23 14:41 MCH 25.5 pg (27-33) L 04/17/23 14:41 MCHC 30.8 g/dL (30-55) 04/17/23 14:41 RDW 17.0 % (12.1-15.1) H 04/17/23 14:41 Plt Count 322 10^3/cmm (157-399) 04/17/23 14:41 MPV 10.2 fL (7.4-10.4) 04/17/23 14:41 Neut % (Auto) 72.9 % 04/17/23 14:41 Lymph % (Auto) 20.8 % 04/17/23 14:41 [place] % (Auto) 5.0 % 04/17/23 14:41 Eos % (Auto) 0.8 % 04/17/23 14:41 Baso % (Auto) 0.2 % 04/17/23 14:41 Neut # (Auto) 9.72 10^3/uL (1.8-7.7) H 04/17/23 14:41 Lymph # (Auto) 2.8 10^3/uL (0.8-4.8) 04/17/23 14:41 [place] # (Auto) 0.7 10^3/uL (0.2-0.9) 04/17/23 14:41 Eos # (Auto) 0.1 10^3/uL (0.0-0.8) 04/17/23 14:41 Baso # (Auto) 0.0 10^3/uL (0.0-0.1) 04/17/23 14:41 Nucleated RBC % (auto) 0 % 04/17/23 14:41 Nucleated RBCs # 0.0 /100WBC 04/17/23 14:41 D-Dimer 1.27 ug/mLFEU (0-0.59) H 04/17/23 14:41 Sodium 139 mmol/L (136-145) 04/17/23 14:41 Potassium 4.1 mmol/L (3.5-5.1) 04/17/23 14:41 Chloride 104 mmol/L (98-107) 04/17/23 14:41 Carbon Dioxide 22 mmol/L (22-29) 04/17/23 14:41 Anion Gap 17.1 (5-19) 04/17/23 14:41 BUN 23 mg/dL (8-23) 04/17/23 14:41 Creatinine 1.8 mg/dL (0.5-0.9) H 04/17/23 14:41 GFR Calculation Not Reportable 04/17/23 14:41 Glucose 189 mg/dL (65-115) H 04/17/23 14:41 Calculated Osmolality 297 mOsm/kg (285-295) H 04/17/23 14:41 Calcium 9.1 mg/dL (8.5-10.5) 04/17/23 14:41 Total Bilirubin 0.4 mg/dL (0.15-1.2) 04/17/23 14:41 AST 23 U/L (0-32) 04/17/23 14:41 ALT 15 U/L (0-33) 04/17/23 14:41 Alkaline Phosphatase 164 U/L (35-105) H 04/17/23 14:41 Troponin T Baseline 83 ng/L (0-10) H 04/17/23 14:41 NT-Pro-B Natriuret Pep 73981 pg/mL (0-125) H 04/17/23 14:41 Total Protein 7.1 g/dL (6.6-8.7) 04/17/23 14:41 Albumin 3.7 g/dL (3.5-5.2) 04/17/23 14:41 Globulin 3.4 g/dL (1.3-4.6) 04/17/23 14:41 XR interpretation done by ED provider, pending radiology final review EKG Data EKG 1: Interpretation: Select next sinus tachycardia rate of [address] changes. NC interval 169 QRS duration 113 QT 354. Discharge Plan Discharge Patient Disposition: Placed in Observation Admit Provider: Jackie Oliver Clinical Impression: Congestive heart failure, COPD (chronic obstructive pulmonary disease), Stable angina Coding Level of Care Code ED Manager Professional Development for Kiran Holland
--- NOTE | 2023-04-17 16:59 | ECG_ITS ---
[facility] Test Date: 2023-04-17 Pat Name: Romi Yuan Department: Room: 106 Gender: Female Buccaro: : 1950 Requested By: Narayan Siddiqi Order Number: [id number] Reading MD: Nohemy Christianson M.D. Measurements Intervals [place] Rate: 138 P: 27 MD: 149 QRS: -39 QRSD: 114 T: 83 QT: 301 QTc: 457 Interpretive Statements SINUS TACHYCARDIA LEFT AXIS DEVIATION [QRS AXIS < -30] LEFT VENTRICULAR HYPERTROPHY AND ST-T CHANGE [VOLTAGE CRITERIA PLUS ST/T ABNORMALITY] INTERPRETATION BASED ON A DEFAULT AGE OF 40 YEARS Compared to ECG 04/17/2023 14:36:39 Left-axis deviation now present Right ventricular hypertrophy no longer present Incomplete right bundle-branch block no longer present Left anterior fascicular block no longer present ST (T wave) deviation still present Electronically Signed On 04-19-2023 8:11:47 ELECTRICAL PROJECT ENGINEER by Nohemy Christianson M.D. [id number]
--- NOTE | 2023-04-17 17:03 | PM.HP ---
Providers/Chief Complaint Admitting Physician: Jackie Oliver MD Primary Care Provider: Jocelyne Kirby Chief Complaint: CHEST PAIN History of Present Illness Romi Yuan is a 72 year old female with history of chronic kidney disease baseline creatinine around 2, oxygen dependent, lives alone, DNR/DNI, was recently discharged from the hospital after management of non-STEMI cardiology managed medically, patient refused coronary angiogram for fear of dialysis, presenting today for further setting of shortness of breath. Patient is stating that she does not smoke, today she was experiencing shortness of breath that prompted her visit to the ER. She is denying active chest pain at the time of my evaluation. Patient has been giving Ativan which has made her very drowsy however she is verbally redirectable and getting agitated when I am trying to wake her up. She is able to answer my questions appropriately. Patient is stating that not sure why everybody is asking regarding smoking history I have asked CSU nurse to use BiPAP overnight to avoid hypoventilation patient is DNR/DNI from last admission Review of Systems Const: Denies: fever(s) Eyes: Denies: change in vision ENMT: Denies: throat pain Card: Reports: swelling of feet/ankles Resp: Reports: dyspnea GI: Denies: abdominal pain : Denies: flank pain Musc: Denies: neck pain Skin/Breast: Reports: rash Neuro: Denies: headache(s) Psych: Reports: anxiety Medications/Allergies Home Medications Medication Instructions Recorded Confirmed Last Taken Type isosorbide mononitrate 60 mg 60 mg PO BID 07/20/19 04/17/23 04/16/23 History tablet,extended release 24 hr umeclidinium 62.5 mcg-vilanterol 1 inh inhalation DAILY 07/20/19 04/17/23 04/16/23 History 25 mcg/actuation powdr for inhalation (Anoro Ellipta) venlafaxine 150 mg 150 mg PO BEDTIME 07/20/19 04/17/23 04/16/23 History capsule,extended release 24 hr (Effexor XR) methimazole 5 mg tablet 5 mg PO DAILY #30 tabs 03/11/20 04/17/23 04/16/23 Rx blood sugar diagnostic (Accu-Chek #120 ea 06/23/21 04/17/23 Unknown Rx Ana M Plus test strips) clopidogrel 75 mg tablet (Plavix) 75 mg PO DAILY #60 tabs 06/15/22 04/17/23 04/16/23 Rx acitretin 10 mg capsule 10 mg PO QAM 06/19/22 04/17/23 04/17/23 History atorvastatin 40 mg tablet 40 mg PO BEDTIME 06/19/22 04/17/23 04/16/23 History venlafaxine 75 mg capsule,extended 75 mg PO BEDTIME 06/19/22 04/17/23 04/16/23 History release 24 hr docusate sodium 100 mg capsule 100 mg PO BID PRN Constipation 06/24/22 04/17/23 02/26/23 History (Colace) acetaminophen 500 mg tablet 500 mg PO BEDTIME 07/09/22 04/17/23 04/16/23 History albuterol sulfate 90 mcg/actuation 2 puff inhalation QID PRN 07/09/22 04/17/23 02/26/23 History aerosol inhaler (Ventolin HFA) Shortness Of Breath insulin lispro 100 unit/mL See Rx Instructions .Route .COMPLEX 07/09/22 04/17/23 02/26/23 History subcutaneous pen (Humalog KwikPen (U-100) Insulin) nitroglycerin 0.4 mg sublingual 0.4 mg sublingual Q5M PRN Chest 07/09/22 04/17/23 02/26/23 History tablet (Nitrostat) Pain tizanidine 4 mg tablet 4 mg PO BEDTIME 07/09/22 04/17/23 04/16/23 History metoprolol succinate 50 mg 50 mg PO QAM 08/25/22 04/17/23 04/16/23 History tablet,extended release 24 hr cholecalciferol (vitamin D3) 125 125 mcg PO .Weekly 09/07/22 04/17/23 Unknown History mcg (5,000 unit) capsule empagliflozin 10 mg tablet 10 mg PO DAILY 09/07/22 04/17/23 04/16/23 History (Jardiance) insulin detemir U-100 100 unit/mL 11 unit SUBCUT DAILY PRN blood 09/07/22 04/17/23 02/26/23 History (3 mL) subcutaneous pen (Levemir sugar FlexPen) potassium chloride 10 mEq 10 meq PO BID #180 tabs 11/26/22 04/17/23 04/16/23 Rx tablet,extended release aspirin 81 mg tablet,delayed 81 mg PO BEDTIME #90 tabs 01/27/23 04/17/23 04/16/23 Rx release hydralazine 50 mg tablet 50 mg PO BID #180 tabs 01/27/23 04/17/23 04/17/23 Rx furosemide 40 mg tablet 40 mg PO DAILY 02/27/23 04/17/23 04/17/23 History Allergies Allergy/AdvReac Type Severity Reaction Status Date / Time cefuroxime [From Ceftin] Allergy ALGY-Rash Verified 04/17/23 14:52 cephalexin [From Keflex] Allergy ALGY-Rash Verified 04/17/23 14:52 hydroxyzine [From Vistaril] Allergy ALGY-Anaphy Verified 04/17/23 14:52 laxis Penicillins Allergy ALGY-Redness Verified 04/17/23 14:52 of Skin prochlorperazine Allergy ALGY-Anaphy Verified 04/17/23 14:52 [From Compazine] laxis promethazine [From Phenergan] Allergy ALGY-Anaphy Verified 04/17/23 14:52 laxis venom-honey bee Allergy ALGY-Anaphy Verified 04/17/23 14:52 laxis simvastatin [From Zocor] AdvReac ADR-Heartbu Verified 04/17/23 14:52 rn PFSH Acute PFSH: Medical History (Updated 04/17/23 @ 18:53 by Smiley Hanson MD) Anxiety ASHD (arteriosclerotic heart disease) CAD (coronary artery disease) Carotid arterial disease CHF (congestive heart failure) Chronic kidney disease Clostridioides difficile infection (07/2022) Colon polyps COPD (chronic obstructive pulmonary disease) Diabetes mellitus Dyslipidemia Eczema Graves disease History of CVA (cerebrovascular accident) History of skin cancer HTN (hypertension) Hypertensive urgency Hyperthyroidism Insomnia NSTEMI (non-ST elevated myocardial infarction) PAD (peripheral artery disease) Pneumonia due to COVID-19 virus (~06/2022) Surgical History History of cardiac catheterization 06/25/2022 Left main artery: Short, patent. Left circumflex artery: Has patent stents, no significant stenosis. LAD:Occluded in the midsegment. RCA: Known occluded. Not injected. SVG to diagonal artery and SVG to RCA are known occluded. Not injected. LOVETT to LAD: Patent. Coronary anatomy unchanged compared to before. History of coronary artery stent placement History of endovascular stent graft for abdominal aortic aneurysm (AAA) History of renal stent Hx of local excision of skin lesion (09/16/20) Left forearm x2 S/P CABG (coronary artery bypass graft) twice, last in 2004 S/P cataract surgery S/P cholecystectomy S/P hysterectomy with oophorectomy S/P skin and subcutaneous tissue surgery Status post colonoscopy (09/16/20) Status post insertion of iliac artery stent Family History Sister Mark's disease Sister No problems noted. Mother No problems noted. Other Anesthesia complication Social History Smoking and tobacco/nicotine status: former use of tobacco/nicotine Alcohol intake: current Alcohol intake frequency: holidays/special occasions only Substance/Drug Use: current Vitals/I&O/Wt Last Vital Signs Temp 98.2 F 04/17/23 14:34 Pulse 115 H 04/17/23 16:45 Resp 22 H 04/17/23 16:45 BP 169/107 04/17/23 16:45 Pulse Ox 90 04/17/23 16:45 O2 Del Method Room Air 04/17/23 14:34 04/17/23 04/17/23 04/17/23 06:59 14:59 22:59 Intake Total 0.96 / 0.96 Balance 0.96 / 0.96 Weight last 48 hrs Weight 58.967 kg Physical Exam Narrative: Skin rash present on her face Mild sign of fluid overload Drowsy however will be redirectable Currently on 4 L saturating 98% No active signs of crackles or stridor No active distress Patient seems comfortable No active chest pain S1, S2 tachycardia Blood pressure 162/79 mmHg Nonfocal neuro exam Data 04/17/23 14:41 04/17/23 14:41 A&P Assessment and plan (1) COPD (chronic obstructive pulmonary disease): (2) Hyperthyroidism: (3) Congestive heart failure: (4) Itching of both hands: (5) Chronic kidney disease: (6) Unstable angina: Plan 72-year-old female with history of diabetes, chronic kidney disease, CABG presented to the hospital for worsening of shortness of breath Reduced ejection fraction heart failure exacerbation acute on chronic Continue Lasix with potassium supplement Chronic kidney disease: Creatinine seems around baseline Acute on chronic hypoxia currently requiring 4 L, due to use of Ativan patient is very drowsy I would use BiPAP overnight to prevent hypoventilation DNR/DNI Unstable angina/chronic angina: Delta troponin not significant, will wait for 6-hour troponin no active chest pain May benefit from ranolazine Monitor for bradycardia which was noticed on last admission Currently she is tachycardic We will request D-dimer Continue metoprolol succinate She was on Imdur, metoprolol succinate, Hypertensive urgency she has received hydralazine, optimize antihypertensive regimen DNR/DNI Consistent carb diet No need to repeat echo Patient has EF 35 to 40% Attestations Medical Necessity Statement*: Anticipating discharge within 48 hours Diagnoses COPD (chronic obstructive pulmonary disease) J44.9 Hyperthyroidism E05.90 Congestive heart failure I50.9 Itching of both hands L29.9 Chronic kidney disease N18.9 Unstable angina I20.0
[2023-04-17] MEDS: ipratropium-albuterol 3 mL Neb INHALATION ×2 (17:06→20:28)
[2023-04-17] MEDS: LORazepam 2 mg/mL INJ 1 mL IVP (17:08)
[2023-04-17 17:09] LABS: Troponin 5 2HR 84.95 ng/L (0-10)
[2023-04-17 17:11] LABS: Troponin 5 2HR Delta 1.95 ABS# (0-10)
[2023-04-17] MEDS: hyDRALAzine 20 mg/mL INJ 1 mL 5 MG IVP (17:25)
[2023-04-17 18:32] LABS: Glucose Point of Care 259 mg/dL (70-110)
[2023-04-17] MEDS: enoxaparin 30 mg/0.3 mL Syringe SUBCUT (18:36)
[2023-04-17 19:39] LABS: D Dimer 1.27 ug/mLFEU (0-0.59)
[2023-04-17 21:13] LABS: Glucose Point of Care 324 mg/dL (70-110)
[2023-04-18] VITALS (12 sets, daily range): BP systolic 142–189; BP diastolic 58–90; PULSE 75–101; RESP 14–27; TEMP 36.6–37.3; O2SAT 95–100
[2023-04-18 04:46] LABS: Basophils % 0.1 %; Hematocrit 37.8 % (36-47); Lymphocytes % 13.1 %; Mean Corpuscular Hemoglobin 25.7 pg (27-33); Mean Corpuscular Volume 82.9 fl (85-98); Mean Platelet Volume 10.3 fL (7.4-10.4); Monocytes # 0.2 10^3/uL (0.2-0.9); Neutrophils % 83.5 %; Nucleated Red Blood Cells % 0 %; Platelet Count 249 10^3/cmm (157-399); Red Blood Count 4.56 10^6/uL (3.85-5.65); Red Cell Distribution Width 17.2 % (12.1-15.1); White Blood Count 7.42 10^3/uL (3.29-11.43)
[2023-04-18 05:11] LABS: Anion Gap 15.9 (5-19); Blood Urea Nitrogen 26 mg/dL (8-23); C Reactive Protein 41.3 mg/L (0.0-4.9); Calcium 8.8 mg/dL (8.5-10.5); Carbon Dioxide 23 mmol/L (22-29); Chloride 106 mmol/L (98-107); Glucose 254 mg/dL (65-115); Magnesium 2.2 mg/dL (1.7-2.3); Osmolality Calculated 305 mOsm/kg (285-295); Potassium 3.9 mmol/L (3.5-5.1); Sodium 141 mmol/L (136-145)
[2023-04-18 06:29] LABS: Glucose Point of Care 169 mg/dL (70-110)
[2023-04-18] MEDS: metoprolol succinate ER (24 HR) 50 mg Tablet PO (06:47)
[2023-04-18] MEDS: insulin lispro 100 unit/1 mL SUBCUT ×2 (09:09→17:38)
[2023-04-18] MEDS: methIMAzole 5 MG Tablet PO (09:09)
[2023-04-18] MEDS: FUROsemide 40 mg Tablet PO (09:09)
[2023-04-18] MEDS: hyDRALAzine 50 mg Tablet PO ×2 (09:09→17:38)
[2023-04-18] MEDS: isosorbide mononitrate ER 60 mg Tablet PO ×2 (09:09→17:38)
[2023-04-18] MEDS: clopidogrel 75 mg Tablet PO (09:10)
[2023-04-18] MEDS: insulin glargine 100 units/1 mL 10 UNIT SUBCUT (10:43)
[2023-04-18 11:25] LABS: Glucose Point of Care 115 mg/dL (70-110)
--- NOTE | 2023-04-18 11:49 | PM.CONSULT ---
Providers/Reason For Consult Consulting Physician/Specialty*: Cardiology Reason for Consult*: Chest pain CAD Attending Physician: Jackie Oliver MD Primary Care Provider: Jocelyne Kirby History of Present Illness History of Present Illness Romi Yuan is a 72 year old female with known history of coronary disease status post PCI and prior CABG. Patient apparently has been here multiple times with recent admission with non-STEMI. Patient was offered angiogram however she declined due to the risk of contrast nephropathy. Patient was admitted again yesterday with shortness of breath and chest discomfort. Troponins mildly elevated but not significantly changed from before. No acute EKG changes. Currently doing well without any chest pain or shortness of breath. She is on room air with saturation of 96% no obvious CHF symptoms. Review of Systems Const: Denies: fever(s) Eyes: Denies: change in vision ENMT: Denies: throat pain Card: Reports: swelling of feet/ankles Resp: Reports: dyspnea GI: Denies: abdominal pain : Denies: flank pain Musc: Denies: neck pain Skin/Breast: Reports: rash Neuro: Denies: headache(s) Psych: Reports: anxiety Alonzo/Lymph: Denies: easy bruising or easy bleeding Medications/Allergies Home Medications Medication Instructions Recorded Confirmed Last Taken Type isosorbide mononitrate 60 mg 60 mg PO BID 07/20/19 04/17/23 04/16/23 History tablet,extended release 24 hr umeclidinium 62.5 mcg-vilanterol 1 inh inhalation DAILY 07/20/19 04/17/23 04/16/23 History 25 mcg/actuation powdr for inhalation (Anoro Ellipta) venlafaxine 150 mg 150 mg PO BEDTIME 07/20/19 04/17/23 04/16/23 History capsule,extended release 24 hr (Effexor XR) methimazole 5 mg tablet 5 mg PO DAILY #30 tabs 03/11/20 04/17/23 04/16/23 Rx blood sugar diagnostic (Accu-Chek #120 ea 06/23/21 04/17/23 Unknown Rx Ana M Plus test strips) clopidogrel 75 mg tablet (Plavix) 75 mg PO DAILY #60 tabs 06/15/22 04/17/23 04/16/23 Rx acitretin 10 mg capsule 10 mg PO QAM 06/19/22 04/17/23 04/17/23 History atorvastatin 40 mg tablet 40 mg PO BEDTIME 06/19/22 04/17/23 04/16/23 History venlafaxine 75 mg capsule,extended 75 mg PO BEDTIME 06/19/22 04/17/23 04/16/23 History release 24 hr docusate sodium 100 mg capsule 100 mg PO BID PRN Constipation 06/24/22 04/17/23 02/26/23 History (Colace) acetaminophen 500 mg tablet 500 mg PO BEDTIME 07/09/22 04/17/23 04/16/23 History albuterol sulfate 90 mcg/actuation 2 puff inhalation QID PRN 07/09/22 04/17/23 02/26/23 History aerosol inhaler (Ventolin HFA) Shortness Of Breath insulin lispro 100 unit/mL See Rx Instructions .Route .COMPLEX 07/09/22 04/17/23 02/26/23 History subcutaneous pen (Humalog KwikPen (U-100) Insulin) nitroglycerin 0.4 mg sublingual 0.4 mg sublingual Q5M PRN Chest 07/09/22 04/17/23 02/26/23 History tablet (Nitrostat) Pain tizanidine 4 mg tablet 4 mg PO BEDTIME 07/09/22 04/17/23 04/16/23 History metoprolol succinate 50 mg 50 mg PO QAM 08/25/22 04/17/23 04/16/23 History tablet,extended release 24 hr cholecalciferol (vitamin D3) 125 125 mcg PO .Weekly 09/07/22 04/17/23 Unknown History mcg (5,000 unit) capsule empagliflozin 10 mg tablet 10 mg PO DAILY 09/07/22 04/17/23 04/16/23 History (Jardiance) insulin detemir U-100 100 unit/mL 11 unit SUBCUT DAILY PRN blood 09/07/22 04/17/23 02/26/23 History (3 mL) subcutaneous pen (Levemir sugar FlexPen) potassium chloride 10 mEq 10 meq PO BID #180 tabs 11/26/22 04/17/23 04/16/23 Rx tablet,extended release aspirin 81 mg tablet,delayed 81 mg PO BEDTIME #90 tabs 01/27/23 04/17/23 04/16/23 Rx release hydralazine 50 mg tablet 50 mg PO BID #180 tabs 01/27/23 04/17/23 04/17/23 Rx furosemide 40 mg tablet 40 mg PO DAILY 02/27/23 04/17/23 04/17/23 History Allergies Allergy/AdvReac Type Severity Reaction Status Date / Time cefuroxime [From Ceftin] Allergy ALGY-Rash Verified 04/17/23 14:52 cephalexin [From Keflex] Allergy ALGY-Rash Verified 04/17/23 14:52 hydroxyzine [From Vistaril] Allergy ALGY-Anaphy Verified 04/17/23 14:52 laxis Penicillins Allergy ALGY-Redness Verified 04/17/23 14:52 of Skin prochlorperazine Allergy ALGY-Anaphy Verified 04/17/23 14:52 [From Compazine] laxis promethazine [From Phenergan] Allergy ALGY-Anaphy Verified 04/17/23 14:52 laxis venom-honey bee Allergy ALGY-Anaphy Verified 04/17/23 14:52 laxis simvastatin [From Zocor] AdvReac ADR-Heartbu Verified 04/17/23 14:52 rn Current Medications Generic Name Dose Route Start Last Admin Trade Name Freq PRN Reason Stop Dose Admin Acetaminophen 500 mg 04/17/23 21:00 04/17/23 21:26 Acetaminophen 500 Mg Tablet PO Not Given BEDTIME YASMANI Albuterol/Ipratropium 3 ml 04/17/23 17:42 04/17/23 20:28 Ipratropium-Albuterol 3 Ml Neb INHALATION 3 ml Q6H PRN Administration SHORTNESS OF BREATH Aspirin 81 mg 04/17/23 21:00 04/17/23 21:27 Aspirin 81 Mg Ec Tablet PO Not Given BEDTIME YASMANI Atorvastatin Calcium 40 mg 04/17/23 21:00 04/17/23 21:27 Atorvastatin 40 Mg Tablet PO Not Given BEDTIME YASMANI Clopidogrel Bisulfate 75 mg 04/18/23 09:00 04/18/23 09:10 Clopidogrel 75 Mg Tablet PO 75 mg DAILY YASMANI Administration Furosemide 40 mg 04/18/23 09:00 04/18/23 09:09 Furosemide 40 Mg Tablet PO 40 mg DAILY YASMANI Administration Hydralazine HCl 50 mg 04/17/23 18:00 04/18/23 09:09 Hydralazine 50 Mg Tablet PO 50 mg BID YASMANI Administration Insulin Glargine 10 unit 04/18/23 09:00 04/18/23 10:43 Insulin Glargine 100 Units/1 Ml SUBCUT 10 unit DAILY YASMANI Administration Insulin Human Lispro 0 unit 04/17/23 18:00 04/18/23 11:43 Insulin Lispro 100 Unit/1 Ml SUBCUT Not Given TIDWM YASMANI Protocol Insulin Human Lispro 0 unit 04/17/23 22:30 04/18/23 02:42 Insulin Lispro 100 Unit/1 Ml SUBCUT Not Given BEDTIME YASMANI Protocol Isosorbide Mononitrate 60 mg 04/17/23 18:00 04/18/23 09:09 Isosorbide Mononitrate Er 60 Mg Tablet PO 60 mg BID YASMANI Administration Methimazole 5 mg 04/18/23 09:00 04/18/23 09:09 Methimazole 5 Mg Tablet PO 5 mg DAILY YASMANI Administration Metoprolol Succinate 50 mg 04/18/23 06:00 04/18/23 06:47 Metoprolol Succinate Er (24 Hr) 50 Mg Tablet PO 50 mg QAM YASMANI Administration Tizanidine HCl 4 mg 04/17/23 21:00 04/17/23 21:27 Tizanidine 4 Mg Tablet PO Not Given BEDTIME YASMANI Venlafaxine HCl 150 mg 04/17/23 21:00 04/17/23 21:27 Venlafaxine Er (24hr) 150 Mg Capsule PO Not Given BEDTIME YASMANI PFSH Acute PFSH: Medical History (Updated 04/18/23 @ 11:53 by Paulino Gomez MD) Anxiety ASHD (arteriosclerotic heart disease) CAD (coronary artery disease) Carotid arterial disease CHF (congestive heart failure) Chronic kidney disease Clostridioides difficile infection (07/2022) Colon polyps COPD (chronic obstructive pulmonary disease) Diabetes mellitus Dyslipidemia Eczema Graves disease History of CVA (cerebrovascular accident) History of skin cancer HTN (hypertension) Hypertensive urgency Hyperthyroidism Insomnia NSTEMI (non-ST elevated myocardial infarction) PAD (peripheral artery disease) Pneumonia due to COVID-19 virus (~06/2022) Surgical History History of cardiac catheterization 06/25/2022 Left main artery: Short, patent. Left circumflex artery: Has patent stents, no significant stenosis. LAD:Occluded in the midsegment. RCA: Known occluded. Not injected. SVG to diagonal artery and SVG to RCA are known occluded. Not injected. LOVETT to LAD: Patent. Coronary anatomy unchanged compared to before. History of coronary artery stent placement History of endovascular stent graft for abdominal aortic aneurysm (AAA) History of renal stent Hx of local excision of skin lesion (09/16/20) Left forearm x2 S/P CABG (coronary artery bypass graft) twice, last in 2004 S/P cataract surgery S/P cholecystectomy S/P hysterectomy with oophorectomy S/P skin and subcutaneous tissue surgery Status post colonoscopy (09/16/20) Status post insertion of iliac artery stent Family History Sister Mark's disease Sister No problems noted. Mother No problems noted. Other Anesthesia complication Social History Smoking and tobacco/nicotine status: former use of tobacco/nicotine Alcohol intake: current Alcohol intake frequency: holidays/special occasions only Substance/Drug Use: current Dietary Habits: Current diet type/program: regular Caffeine: Yes Caffeine intake frequency: coffee Vitals/I&O/Wt Last Vital Signs Temp 97.8 F 04/18/23 07:53 Pulse 101 H 04/18/23 08:20 Resp 16 04/18/23 08:20 BP 145/72 04/18/23 07:53 Pulse Ox 100 04/18/23 08:20 O2 Del Method Nasal Cannula 04/18/23 08:20 O2 Flow Rate 2 04/18/23 08:20 FiO2 30 04/17/23 20:28 04/17/23 04/18/23 04/18/23 22:59 06:59 14:59 Intake Total 20.96 / 20.96 440 / 460.96 236 / 236 Output Total 850 / 850 Balance 20.96 / 20.96 -410 / -389.04 236 / 236 Weight last 48 hrs Weight 130 lb Physical Exam Const: COMMON NORMALS: no acute distress, patient oriented x3, no limitations, alert and well nourished HENMT: COMMON NORMALS: normocephalic, atraumatic, hearing grossly normal bilaterally and gingiva normal HEAD & SCALP: normocephalic and atraumatic Eye: COMMON NORMALS: Equal, round and reactive pupils present and EOMs intact bilaterally GENERAL EYE: appearance normal, both eyes and all related structures PUPIL: Yes Equal, round and reactive pupils present Neck/C-Spine: COMMON NORMALS: no JVD GENERAL: Yes normal visual inspection CAROTIDS: Yes normal carotid upstroke Chest: COMMONS NORMALS: normal inspection of the chest CHEST: Yes Symmetrical chest wall rise Resp: COMMON NORMALS: normal respiratory effort, No retractions, clear to auscultation bilaterally and percussion normal EFFORT & INSPECTION: Yes symmetric chest movement AUSCULTATION: clear to auscultation bilaterally PERCUSSION: percussion normal Cardio: COMMON NORMALS: no JVD, regular rate, regular rhythm, S1 normal heart sound present, S2 normal heart sound present, No gallops present (Cardio), No clicks present (Cardio), No murmurs present (Cardio) and No rub (Cardio) RATE: regular rate RHYTHM: regular rhythm HEART SOUNDS: S1 normal heart sound present and S2 normal heart sound present GI: COMMON NORMALS: Normal to inspection, nondistended, normoactive bowel sounds present, Soft to palpation and non-tender PALPATION: Yes Soft to palpation : COMMON NORMALS: Yes no CVA tenderness BLADDER/KIDNEY EXAM: Yes no CVA tenderness Back/Pelvis: COMMON NORMALS: no CVA tenderness Extremity: COMMON NORMALS: normal to inspection, full ROM, no joint enlargement, no clubbing, cyanosis or edema and no calf tenderness Neuro: COMMON NORMALS: patient oriented x3, moves all extremities, no focal motor deficits and no sensory deficits noted SENSORIUM/ORIENTATION: Yes alert GAIT: Yes Normal gait present Psych: COMMON NORMALS: mental status grossly normal APPEARANCE: Yes grossly normal Skin: COMMON NORMALS: no rashes or lesions noted GENERAL SKIN EXAM: no rashes or lesions noted Urinary Catheter Management: Munson Latex Free: Cath Placed During This Visit: yes Reason for Continuing Indwelling Catheter: Accurate Measurement of Urinary Output in Critically Ill Patients Urinary Catheter Date of Insertion: 04/17/23 Data 04/18/23 03:29 04/18/23 03:29 A&P Assessment and plan (1) CAD (coronary artery disease): Status post CABG and PCI with drug-eluting stent to the left main. Patient was admitted recently with non-ST elevation [place] declined angiogram. Being treated medically. I reoffered her angiogram however she still wants medical therapy. Continue Plavix. Patient is being considered to be started on Eliquis due to intermediate probability of PE on VQ scan. Will discontinue aspirin continue on Plavix and Eliquis if started to minimize risk of bleeding. Consider adding low-dose amlodipine 2.5 mg once a day to her regimen. Patient is on metoprolol and isosorbide. Patient can be discharged home from cardiac standpoint to follow-up with Dr. leong in 1 to 2 weeks (2) Chronic kidney disease: Creatinine is 1.8 around her baseline. (3) COPD (chronic obstructive pulmonary disease): Managed by hospitalist. Coding Level of Care Code 76857 Diagnoses CAD (coronary artery disease) I25.10 Chronic kidney disease N18.9 COPD (chronic obstructive pulmonary disease) J44.9
--- NOTE | 2023-04-18 12:26 | PM.PN ---
Subjective Subjective: This morning. Patient returned from ventilation/perfusion scan which shows intermediate probability of pulmonary embolism right lower lung area perfusion defect. Dimer elevated at 1.27. Patient did not have any more chest pain since overnight. She is currently on 2 L nasal cannula. She saturating 100%. She is requesting to have Munson catheter removed. Patient states she is not interested in an angiogram even if needed at this point. Vitals/I&O/Wt Last Vital Signs Temp 97.8 F 04/18/23 07:53 Pulse 101 H 04/18/23 08:20 Resp 16 04/18/23 08:20 BP 145/72 04/18/23 07:53 Pulse Ox 100 04/18/23 08:20 O2 Del Method Nasal Cannula 04/18/23 08:20 O2 Flow Rate 2 04/18/23 08:20 FiO2 30 04/17/23 20:28 04/17/23 04/18/23 04/18/23 22:59 06:59 14:59 Intake Total 20.96 / 20.96 440 / 460.96 236 / 236 Output Total 850 / 850 Balance 20.96 / 20.96 -410 / -389.04 236 / 236 Weight last 48 hrs Weight 58.967 kg Physical Exam Narrative: Skin rash present on her face Appears euvolemic at this time On 2 L nasal cannula Mild bilateral crackles at bases on auscultation, no wheezes no rhonchi. No active distress, Patient seems comfortable No active chest pain S1, S2 tachycardia Nonfocal neuro exam Sitting up on the edge of the bed talking and smiling. Urinary Catheter Management: Munson Latex Free: Cath Placed During This Visit: yes Reason for Continuing Indwelling Catheter: Accurate Measurement of Urinary Output in Critically Ill Patients Urinary Catheter Date of Insertion: 04/17/23 Data 04/18/23 03:29 04/18/23 03:29 A&P Assessment and plan (1) COPD (chronic obstructive pulmonary disease): (2) Hyperthyroidism: (3) Congestive heart failure: (4) Itching of both hands: (5) Chronic kidney disease: (6) Unstable angina: (7) CAD (coronary artery disease): (8) Stable angina: (9) Pulmonary embolism: Plan 72-year-old female with history of diabetes, chronic kidney disease, CABG presented to the hospital for worsening of shortness of breath Reduced ejection fraction heart failure exacerbation acute on chronic Continue Lasix with potassium supplement Chronic kidney disease: Creatinine seems around baseline Acute on chronic hypoxia On 2 L nasal cannula. Continue oxygen supplementation. Unstable angina/chronic angina: Probable pulmonary embolism Delta troponin negative. It is not significant. VQ scan was done which showed intermediate probability pulmonary embolism Discussed with cardiology. Patient's D-dimer is 1.27. We will stop aspirin at this point and put her on renally dosed Eliquis along with Plavix. We will monitor in the hospital today as she will be on a high risk medication. She may be discharged to home tomorrow if remains stable. Continue metoprolol succinate Continue Imdur, Toprol Patient is not interested in an angiogram at this time. See cardiology note. Hypertensive urgency she has received hydralazine, optimize antihypertensive regimen DNR/DNI Consistent carb diet No need to repeat echo Patient has EF 35 to 40% Attestations Medical Necessity Statement*: Plan for dc tomorrow if remains stable. She requires diuresis today and will be started on low dose eliquis. Diagnoses COPD (chronic obstructive pulmonary disease) J44.9 Hyperthyroidism E05.90 Congestive heart failure I50.9 Itching of both hands L29.9 Chronic kidney disease N18.9 Unstable angina I20.0 CAD (coronary artery disease) I25.10 Stable angina I20.89 Pulmonary embolism I26.99
--- NOTE | 2023-04-18 12:56 | PC.NURSE ---
Pt stated she wants us to cardiopulmonary resuscitate her when she coded but does not be in prolonged coma state if no amenable neurological stability returns. Dr notified of her wishes.
[2023-04-18] MEDS: amlodipine 5 mg Tablet 2.5 MG PO (13:06)
[2023-04-18 16:52] LABS: Glucose Point of Care 249 mg/dL (70-110)
--- NOTE | 2023-04-18 20:13 | NMR_ITS ---
PROCEDURE INFORMATION: Exam: WI Lung Ventilation and Perfusion Imaging Exam date and time: 04/18/2023 8:13 PM Age: 72 years old Clinical indication: Abnormal findings; Abnormal diagnostic tests; Elevated d-dimer; Prior surgery; Surgery date: 6+ months; Surgery type: Cabg x 2, cholecystectomy; Patient HX: Diabetes, cabg x2, ; additional info: Sinus tach, elevated dimer TECHNIQUE: Imaging protocol: Nuclear pulmonary ventilation with aerosol or gas was performed followed by perfusion. Views: Ventilation acquired with multiple projections. Perfusion acquired with multiple projections. Radiopharmaceutical: 5.1 mCi Tc-99m MAA (Macroaggregated Albumin), IV. 30.1 mCi Tc-99m DTPA (DTPA Aerosol), Inhalation. COMPARISON: WI pul vent and perfus* [id number] 07/09/2022 10:47 AM FINDINGS: Ventilation: See perfusion. Perfusion: [id number] matched ventilation perfusion defect in the posterior right lung. [id number] matched ventilation perfusion defect in the posterior left lung. No other significant ventilation or perfusion defects. WI/WI pul vent and perfus* [id number] IMPRESSION: Intermediate probability of pulmonary embolism.
[2023-04-18 20:58] LABS: Glucose Point of Care 94 mg/dL (70-110)
[2023-04-18] MEDS: apixaban 5 mg Tablet 2.5 MG PO (21:44)
[2023-04-18] MEDS: venlafaxine ER (24HR) 150 mg Capsule PO (21:44)
[2023-04-18] MEDS: tizanidine 4 mg Tablet PO (21:44)
[2023-04-18] MEDS: atorvastatin 40 mg Tablet PO (21:45)
[2023-04-18] MEDS: acetaminophen 500 mg Tablet PO (21:45)
[2023-04-19] VITALS (7 sets, daily range): BP systolic 142–174; BP diastolic 74–84; PULSE 79–83; RESP 13–18; TEMP 36.1–37; O2SAT 96–99
[2023-04-19 05:30] LABS: Basophils % 0.2 %; Eosinophils # 0.1 10^3/uL (0.0-0.8); Eosinophils % 0.9 %; Hematocrit 40.6 % (36-47); Lymphocytes # 2.3 10^3/uL (0.8-4.8); Lymphocytes % 26.6 %; Mean Corpuscular HGB Conc 29.8 g/dL (30-55); Mean Corpuscular Hemoglobin 25.2 pg (27-33); Mean Corpuscular Volume 84.4 fl (85-98); Mean Platelet Volume 10.2 fL (7.4-10.4); Monocytes # 0.5 10^3/uL (0.2-0.9); Monocytes % 5.7 %; Neutrophils # 5.79 10^3/uL (1.8-7.7); Neutrophils % 66.4 %; Nucleated Red Blood Cells % 0 %; Platelet Count 270 10^3/cmm (157-399); Red Blood Count 4.81 10^6/uL (3.85-5.65); Red Cell Distribution Width 17.4 % (12.1-15.1); White Blood Count 8.73 10^3/uL (3.29-11.43)
[2023-04-19 05:52] LABS: Anion Gap 11.8 (5-19); Blood Urea Nitrogen 33 mg/dL (8-23); Calcium 8.8 mg/dL (8.5-10.5); Carbon Dioxide 26 mmol/L (22-29); Chloride 106 mmol/L (98-107); Glucose 138 mg/dL (65-115); Magnesium 2.3 mg/dL (1.7-2.3); Osmolality Calculated 299 mOsm/kg (285-295); Potassium 3.8 mmol/L (3.5-5.1); Sodium 140 mmol/L (136-145)
[2023-04-19 06:08] LABS: Glucose Point of Care 146 mg/dL (70-110)
[2023-04-19] MEDS: metoprolol succinate ER (24 HR) 50 mg Tablet PO (06:08)
[2023-04-19] MEDS: apixaban 5 mg Tablet 2.5 MG PO (10:28)
[2023-04-19] MEDS: amlodipine 5 mg Tablet 2.5 MG PO (10:28)
[2023-04-19] MEDS: clopidogrel 75 mg Tablet PO (10:29)
[2023-04-19] MEDS: isosorbide mononitrate ER 60 mg Tablet PO (10:29)
[2023-04-19] MEDS: FUROsemide 40 mg Tablet PO (10:29)
[2023-04-19] MEDS: methIMAzole 5 MG Tablet PO (10:29)
[2023-04-19] MEDS: insulin lispro 100 unit/1 mL SUBCUT (10:30)
[2023-04-19] MEDS: hyDRALAzine 50 mg Tablet PO (10:37)
[2023-04-19 11:59] LABS: Glucose Point of Care 148 mg/dL (70-110)
--- NOTE | 2023-04-19 12:06 | P.DS_ITS ---
Discharge Providers Date of Admission: 04/17/23 16:39 Date of Discharge: April 19, 2023 Attending Provider at Admission: Jackie Oliver MD Attending Provider at Discharge: Jackie Oliver MD Primary Care Provider: Jocelyne Kirby Diagnoses at Discharge Discharge Diagnosis (1) COPD (chronic obstructive pulmonary disease): Status: Chronic (2) Hyperthyroidism: Status: Chronic (3) Congestive heart failure: Status: Chronic (4) Itching of both hands: Status: Acute (5) Chronic kidney disease: Status: Acute (6) Unstable angina: Status: Resolved (7) CAD (coronary artery disease): Status: Acute (8) Stable angina: Status: Acute (9) Pulmonary embolism: Status: Acute Reason for Visit Reason for Visit: CHEST PAIN Hospital Course Hospital Course admitted for chest pain and was seen by cardiology. patient has refused angiogram in the past. she is optimized on medical therapy and would like to continue medical management. she was tachycardic therefore dimer was requested. elevated at 1.27. V/Q scan performed showed intermediate prob of PE. Aspirin stopped. Mary Anne started Also had goals of care discussion. SHe would like limited resuscitation. SHe would like to be intubated and have ACLS medications. Would like to opt out of chest compressions. RN at bedside during this discussion. Patient's SOB improved and she was back to her baseline and dc home in stable condition. Physical Exam Narrative: Skin rash present on her face Appears euvolemic at this time On 2 L nasal cannula no crackles at bases on auscultation, no wheezes no rhonchi. improved since admission No active distress, Patient seems comfortable No active chest pain S1, S2 tachycardia Nonfocal neuro exam Sitting up on the edge of the bed talking and smiling. Urinary Catheter Management: [place]son Latex Free: Cath Placed During This Visit: yes, but has since been removed by the nurse Reason for Continuing Indwelling Catheter: Decision to DC Catheter Urinary Catheter Date of Insertion: 04/17/23 Date Urinary Catheter Removed: 04/18/23 Time Urinary Catheter Discontinued: 12:30 Discharge Data Studies Completed and Pending Completed Studies During Hospitalization Category Date Time Status XR chest 1V portable [id number] Stat Exams 04/17/23 14:50 Completed NM pul vent and perfus* [id number] Routine Nuc Med 04/18/23 20:13 Completed Radiology Impressions Chest X-Ray 04/17/23 14:50 IMPRESSION: Stable exam, no acute findings. Pulmonary Perfusion Imaging 04/18/23 20:13 IMPRESSION: Intermediate probability of pulmonary embolism. Laboratory Results WBC 8.73 10^3/uL (3.29-11.43) 04/19/23 05:02 RBC 4.81 10^6/uL (3.85-5.65) 04/19/23 05:02 Hgb 12.10 g/dL (11.27-16.99) 04/19/23 05:02 Hct 40.6 % (36-47) 04/19/23 05:02 MCV 84.4 fl (85-98) L 04/19/23 05:02 MCH 25.2 pg (27-33) L 04/19/23 05:02 MCHC 29.8 g/dL (30-55) L 04/19/23 05:02 RDW 17.4 % (12.1-15.1) H 04/19/23 05:02 Plt Count 270 10^3/cmm (157-399) 04/19/23 05:02 MPV 10.2 fL (7.4-10.4) 04/19/23 05:02 Neut % (Auto) 66.4 % 04/19/23 05:02 Lymph % (Auto) 26.6 % 04/19/23 05:02 [place] % (Auto) 5.7 % 04/19/23 05:02 Eos % (Auto) 0.9 % 04/19/23 05:02 Baso % (Auto) 0.2 % 04/19/23 05:02 Neut # (Auto) 5.79 10^3/uL (1.8-7.7) 04/19/23 05:02 Lymph # (Auto) 2.3 10^3/uL (0.8-4.8) 04/19/23 05:02 [place] # (Auto) 0.5 10^3/uL (0.2-0.9) 04/19/23 05:02 Eos # (Auto) 0.1 10^3/uL (0.0-0.8) 04/19/23 05:02 Baso # (Auto) 0.0 10^3/uL (0.0-0.1) 04/19/23 05:02 Nucleated RBC % (auto) 0 % 04/19/23 05:02 Nucleated RBCs # 0.0 /100WBC 04/19/23 05:02 D-Dimer 1.27 ug/mLFEU (0-0.59) H 04/17/23 14:41 Sodium 140 mmol/L (136-145) 04/19/23 05:02 Potassium 3.8 mmol/L (3.5-5.1) 04/19/23 05:02 Chloride 106 mmol/L (98-107) 04/19/23 05:02 Carbon Dioxide 26 mmol/L (22-29) 04/19/23 05:02 Anion Gap 11.8 (5-19) 04/19/23 05:02 BUN 33 mg/dL (8-23) H 04/19/23 05:02 Creatinine 2.2 mg/dL (0.5-0.9) H 04/19/23 05:02 GFR Calculation Not Reportable 04/19/23 05:02 Glucose 138 mg/dL (65-115) H 04/19/23 05:02 POC Glucose 148 mg/dL (70-110) H 04/19/23 11:20 Calculated Osmolality 299 mOsm/kg (285-295) H 04/19/23 05:02 Calcium 8.8 mg/dL (8.5-10.5) 04/19/23 05:02 Magnesium 2.3 mg/dL (1.7-2.3) 04/19/23 05:02 Total Bilirubin 0.4 mg/dL (0.15-1.2) 04/17/23 14:41 AST 23 U/L (0-32) 04/17/23 14:41 ALT 15 U/L (0-33) 04/17/23 14:41 Alkaline Phosphatase 164 U/L (35-105) H 04/17/23 14:41 Troponin T Baseline 83 ng/L (0-10) H 04/17/23 14:41 Troponin T 120 Minute 84.95 ng/L (0-10) H 04/17/23 16:39 Delta Troponin T 1.95 ABS# (0-10) 04/17/23 16:39 C-Reactive Protein 41.3 mg/L (0.0-4.9) H 04/18/23 03:29 NT-Pro-B Natriuret Pep 11430 pg/mL (0-125) H 04/17/23 14:41 Total Protein 7.1 g/dL (6.6-8.7) 04/17/23 14:41 Albumin 3.7 g/dL (3.5-5.2) 04/17/23 14:41 Globulin 3.4 g/dL (1.3-4.6) 04/17/23 14:41 Vitals Last Vital Signs Temp 96.9 F L 04/19/23 11:00 Pulse 79 04/19/23 11:00 Resp 18 04/19/23 07:25 BP 171/74 04/19/23 11:00 Pulse Ox 99 04/19/23 11:00 O2 Del Method Room Air 04/19/23 11:00 O2 Flow Rate 2 04/18/23 20:20 FiO2 30 04/17/23 20:28 Discharge Plan Discharge Patient Disposition: Home Condition: Stable Prescriptions: New amlodipine 5 mg Tablet 2.5 mg PO DAILY Qty: 30 0RF Eliquis 5 mg Tablet 2.5 mg PO BID@0900,2100 Qty: 30 0RF Continued Anoro Ellipta 62.5-25 mcg/actuation blister with device 1 inh INHALATION DAILY isosorbide mononitrate 60 mg tablet extended release 24 hr 60 mg PO BID venlafaxine [Effexor XR] 150 mg capsule,extended release 24hr 150 mg PO BEDTIME Rx Instructions: TAKE WITH 75 MG cholecalciferol (vitamin D3) 125 mcg (5,000 unit) capsule 125 mcg PO .Weekly potassium chloride 10 mEq tablet extended release 10 meq PO BID Qty: 180 1RF Jardiance 10 mg tablet 10 mg PO DAILY hydralazine 50 mg tablet 50 mg PO BID Qty: 180 2RF methimazole 5 mg tablet 5 mg PO DAILY Qty: 30 3RF (DME) Accu-Chek Ana M Plus test strp Strip See Rx Instructions .ROUTE .MEDSUPPLY Qty: 120 3RF Rx Instructions: check blood glucose four times a day tizanidine 4 mg tablet 4 mg PO BEDTIME nitroglycerin [Nitrostat] 0.4 mg Tablet, Sublingual 0.4 mg SUBLINGUAL Q5M PRN (Reason: Chest Pain) Rx Instructions: do not exceed 3 doses per episode insulin lispro [Humalog KwikPen Insulin] 100 unit/mL Insulin Pen See Rx Instructions .ROUTE .COMPLEX Rx Instructions: sliding scale tid prn blood sugar acetaminophen 500 mg Tablet 500 mg PO BEDTIME albuterol sulfate [Ventolin HFA] 90 mcg/actuation Hfa Aerosol Inhaler 2 puff INHALATION QID PRN (Reason: Shortness Of Breath) Levemir FlexPen 100 unit/mL (3 mL) insulin pen 11 unit SUBCUT DAILY PRN (Reason: blood sugar) furosemide 40 mg Tablet 40 mg PO DAILY clopidogrel [Plavix] 75 mg tablet 75 mg PO DAILY Qty: 60 0RF atorvastatin 40 mg tablet 40 mg PO BEDTIME venlafaxine 75 mg capsule,extended release 24hr 75 mg PO BEDTIME Rx Instructions: TAKE WITH 150 MG acitretin 10 mg capsule 10 mg PO QAM docusate sodium [Colace] 100 mg capsule 100 mg PO BID PRN (Reason: Constipation) metoprolol succinate 50 mg tablet extended release 24 hr 50 mg PO QAM Discontinued aspirin 81 mg tablet,delayed release (DR/EC) 81 mg PO BEDTIME Qty: 90 3RF Discharge Orders: Discharge Order (Routine); Ordered 04/19/23 Ordered By: Jackie Oliver Referrals: Jocelyne Kirby PA [Primary Care Provider] - 04/22/23 2:00 pm Nohemy Christianson MD [Physician] - 05/19/23 9:00 am Discharge Diet: Cardiac and Diabetic Discharge Activity: Resume usual activity and Oxygen as instructed Patient Instructions: Anticoagulation Therapy, Amlodipine (By mouth), Apixaban (By mouth) (Eliquis), Heart Failure (DC), Coronary Artery Disease (DC), Chest Pain (DC), Pulmonary Embolism (DC), Chronic Kidney Disease (DC), Hyperthyroidism (DC), COPD (Chronic Obstructive Pulmonary Disease) (DC), Anticoagulation Therapy, CHF Stoplight, Opioid Safety Discharge Attestations Time Spent in Discharge Care*: greater than 30 min Status at Discharge: Cognitive status at discharge: cognitively intact , Behavioral status at discharge: cooperative , Quality Metrics Clinical Quality Measures [ No reported AMI, CVA or VTE this stay] Coding Level of Care Code Acute Code for [facility] Fwd Diagnoses COPD (chronic obstructive pulmonary disease) J44.9 Hyperthyroidism E05.90 Congestive heart failure I50.9 Itching of both hands L29.9 Chronic kidney disease N18.9 Unstable angina I20.0 CAD (coronary artery disease) I25.10 Stable angina I20.89 Pulmonary embolism I26.99
--- NOTE | 2023-04-19 15:27 | PC.NURSE ---
Discharge Note Patient discharged to [home] via [w/c to POV] accompanied by [friend]. 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 Mobile pharmacy medications and/or prescriptions provided. Belongings/home medications returned.
== END 2023-04-19 15:28 | disposition home or self-care (01) ==
LOC: ER 16:38 → CSU 17:01
PROVIDERS: Internal Medicine; Admitting Provider Internal Medicine; Emergency Provider Family Medicine; PCP Physician Assistant; Visit Provider Internal Medicine
DX: R07.9 Chest pain, unspecified (principal); R00.0 Tachycardia, unspecified; R79.1 Abnormal coagulation profile; J44.9 Chronic obstructive pulmonary disease, unspecified; E05.90 Thyrotoxicosis, unspecified without thyrotoxic crisis or storm; L29.9 Pruritus, unspecified; E11.22 Type 2 diabetes mellitus with diabetic chronic kidney disease; I13.0 Hypertensive heart and chronic kidney disease with heart failure and stage 1 through stage 4 chronic kidney disease, or unspecified chronic kidney disease; N18.9 Chronic kidney disease, unspecified; I50.9 Heart failure, unspecified; I25.110 Atherosclerotic heart disease of native coronary artery with unstable angina pectoris; I26.99 Other pulmonary embolism without acute cor pulmonale; Z95.1 Presence of aortocoronary bypass graft; Z66 Do not resuscitate; I25.2 Old myocardial infarction; E03.9 Hypothyroidism, unspecified; Z87.891 Personal history of nicotine dependence; Z99.81 Dependence on supplemental oxygen
CPT/HCPCS: 36415; 36416; 51702; 71045; 78014; 80048; 80053; 82962; 83735; 83880; 84484; 85025; 85378; 86140; 93005; 94640; 94660; 96361; 96372; 96374; 96375; 96376; 99285; A9540; A9567; G0378; J0360; J1650; J1815; J1940; J2060; J2930

== ENCOUNTER → 2023-05-19 08:38 | Outpatient (BNVA) | payer MEDICARE, MEDICAID, SELFPAY | PROVIDERS: PCP Physician Assistant; Visit Provider Nurse Practitioner Family | DX: I25.10 Atherosclerotic heart disease of native coronary artery without angina pectoris (principal); I13.0 Hypertensive heart and chronic kidney disease with heart failure and stage 1 through stage 4 chronic kidney disease, or unspecified chronic kidney disease; E11.22 Type 2 diabetes mellitus with diabetic chronic kidney disease; N18.9 Chronic kidney disease, unspecified; I50.42 Chronic combined systolic (congestive) and diastolic (congestive) heart failure; I26.94 Multiple subsegmental thrombotic pulmonary emboli without acute cor pulmonale; Z87.891 Personal history of nicotine dependence; Z79.01 Long term (current) use of anticoagulants; Z79.4 Long term (current) use of insulin | CPT/HCPCS: 99214 ==

== ENCOUNTER 2023-06-16 19:38 | Inpatient (IN) | payer MEDICARE, MEDICAID, SELFPAY ==
[2023-06-16 19:39] VITALS: BP 219/111; PULSE 111; RESP 20; TEMP 36.7; O2SAT 92; BMI 26.4
--- NOTE | 2023-06-16 19:40 | ED_ITS ---
HPI - SOB/Dyspnea 2 General: Chief Complaint: ER Hold Stated Complaint: SOB Time Seen by Provider: 06/16/23 19:40 History of Present Illness: HPI Narrative: 72-year-old female presents emergency de partment via EMS personnel with longstanding history of COPD and coronary artery disease. She states that she started having nonproductive cough approximately 2 days ago and then became much more short of breath just prior to arrival requiring EMS intervention and transport. She denies chest pain at present. EMS personnel state that they provided the patient with a DuoNeb breathing treatment, terbutaline and dexamethasone and had significant improvement of the patient's respiratory status. Review of Systems 2 General: Reports: 10 or more systems reviewed and unremarkable except in HPI and below Resp: Reports: dyspnea, non-productive cough and wheezing PFSH ED 2 PFSH: Medical History Eczema CAD (coronary artery disease) NSTEMI (non-ST elevated myocardial infarction) Clostridioides difficile infection (07/2022) Insomnia CHF (congestive heart failure) Chronic kidney disease Hypertensive urgency Pneumonia due to COVID-19 virus (~06/2022) Colon polyps History of skin cancer Hyperthyroidism Graves disease History of CVA (cerebrovascular accident) COPD (chronic obstructive pulmonary disease) Anxiety PAD (peripheral artery disease) Diabetes mellitus Carotid arterial disease Dyslipidemia ASHD (arteriosclerotic heart disease) HTN (hypertension) Surgical History Status post insertion of iliac artery stent History of coronary artery stent placement History of cardiac catheterization 06/25/2022 Left main artery: Short, patent. Left circumflex artery: Has patent stents, no significant stenosis. LAD:Occluded in the midsegment. RCA: Known occluded. Not injected. SVG to diagonal artery and SVG to RCA are known occluded. Not injected. LOVETT to LAD: Patent. Coronary anatomy unchanged compared to before. History of renal stent Hx of local excision of skin lesion (09/16/20) Left forearm x2 Status post colonoscopy (09/16/20) S/P hysterectomy with oophorectomy S/P cholecystectomy S/P CABG (coronary artery bypass graft) twice, last in 2004 History of endovascular stent graft for abdominal aortic aneurysm (AAA) S/P cataract surgery S/P skin and subcutaneous tissue surgery Family History Sister Mark's disease Sister No problems noted. Mother No problems noted. Other Anesthesia complication Social History Smoking and tobacco/nicotine status: former use of tobacco/nicotine Alcohol intake: current Alcohol intake frequency: holidays/special occasions only Substance/Drug Use: current Physical Exam 2 Narrative: EXAM NARRATIVE: Constitutional: the patient appears well nourished and of normal development. Vital signs as documented. No acute distress at present. Alert and oriented-to person, place, time and situation. Head, eyes, ears, nose, mouth, throat: Normocephalic, atraumatic. Pupils-equal, round, reactive to light. No scleral icterus. Normal-appearing external ears. Normal appearing nasal turbinates, no drainage. No obvious oral lesions, posterior oropharynx without erythema or exudates. Neck: Supple, trachea is midline, no lymphadenopathy, no jugular venous distension, thyromegaly, or carotid bruits. Carotid upstrokes are brisk bilaterally. Lungs: Faint scattered expiratory wheezes throughout symmetrical rise and fall of chest, no obvious signs of increased work of breathing at present. Cardiac: Regular rate and rhythm, positive S1, S2. No murmurs, rubs or gallops that I can appreciate Abdomen: Soft, non-tender to palpation, normal active bowel sounds to all quadrants. No palpable masses, no organomegaly and abdominal bruits. Extremities: 2+ pulses in the upper extremities that are equal bilaterally, 2+ pulses in the lower extremities that are equal bilaterally. Non-edematous. Moves all extremities well, sensation to all extremities are noted. Skin: Warm, dry, intact. Course 2 Reevaluation(s): Reevaluation #1: Patient remained as an ER hold down here in the emergency department she advised that she started having left sided chest pain. Repeat EKG was obtained and does have changes from her previous EKG she now has ST depression in leads V4, V5, and V6 as well as V3. I did contact the hospital physician who accepted the patient to advise them of the EKG changes and that I had requested the patient receive a heparin bolus and heparin drip as well as nitroglycerin drip. Time: 02:20 Vital Signs: Vital signs: Vital Signs Temperature 98.1 F 06/16/23 19:39 Pulse Rate 109 H 06/17/23 02:42 Respiratory Rate 17 06/17/23 02:42 Blood Pressure 185/83 06/17/23 02:42 Pulse Oximetry 94 06/17/23 02:42 Oxygen Delivery Me thod Room Air 06/17/23 02:42 MDM - SOB/Dyspnea Medical Decision Making Physical exam completed and documented, I will obtain a CBC, CMP chest x-ray BNP cardiac enzymes twelve-lead EKG given her COPD history and coronary artery disease history. I will obtain COVID and influenza swabs as well as provide her an hour-long albuterol treatment. Medical Records I reviewed the patient's medical records. Lab Data I reviewed the patient's lab results. 06/16/23 20:27 06/16/23 20:27 Labs/Radiology: Radiology Impressions Chest X-Ray 06/16/23 19:43 IMPRESSION: 1. Cardiomegaly. 2. Bilateral mid to lower lung field ground-glass airspace opacities reflecting alveolar edema and/or pneumonic infiltrates. 3. Sternotomy wires. Laboratory Results WBC 13.55 10^3/uL (3.29-11.43) H 06/16/23 20: RBC 4.92 10^6/uL (3.85-5.65) 06/16/23 20: Hgb 12.70 g/dL (11.27-16.99) 06/16/23 20: Hct 41.5 % (36-47) 06/16/23 20: MCV 84.3 fl (85-98) L 06/16/23 20: MCH 25.8 pg (27-33) L 06/16/23 20: MCHC 30.6 g/dL (30-55) 06/16/23 20: RDW 16.5 % (12.1-15.1) H 06/16/23 20: Plt Count 252 10^3/cmm (157-399) 06/16/23 20: MPV 9.8 fL (7.4-10.4) 06/16/23 20: Neut % (Auto) 80.4 % 06/16/23 20: Lymph % (Auto) 13.5 % 06/16/23 20:27 [place] % (Auto) 4.9 % 06/16/23 20: Eos % (Auto) 0.4 % 06/16/23 20: Baso % (Auto) 0.4 % 06/16/23 20: Neut # (Auto) 10.90 10^3/uL (1.8-7.7) H 06/16/23 20: Lymph # (Auto) 1.8 10^3/uL (0.8-4.8) 06/16/23 20: [place] # (Auto) 0.7 10^3/uL (0.2-0.9) 06/16/23 20: Eos # (Auto) 0.1 10^3/uL (0.0-0.8) 06/16/23: Baso # (Auto) 0.1 10^3/uL (0.0-0.1) 06/16/23 20: Nucleated RBC % (auto) 0 % 06/16/23: Nucleated RBCs # 0.0 /100WBC 06/16/23 20: Sodium 140 mmol/L (136-145) 06/16/23 20: Potassium 3.9 mmol/L (3.5-5.1) 06/16/23 20: Chloride 106 mmol/L (98-107) 06/16/23 20: Carbon Dioxide 23 mmol/L (22-29) 06/16/23 20: Anion Gap 14.9 (5-19) 06/16/23 20: BUN 20 mg/dL (8-23) 06/16/23 20: Creatinine 1.7 mg/dL (0.5-0.9) H 06/16/23 20: GFR Calculation Not Reportable 06/16/23 20: Glucose 256 mg/dL (65-115) H 06/16/23 20: Calculated Osmolality 301 mOsm/kg (285-295) H 06/16/23: Calcium 9.2 mg/dL (8.5-10.5) 06/16/23 20: Total Bilirubin 0.4 mg/dL (0.15-1.2) 06/16/23 20: AST 18 U/L (0-32) 01/10/24 20:27 ALT 10 U/L (0-33) 06/16/23 20:27 Alkaline Phosphatase 143 U/L (35-105) H 06/16/23 20:27 Troponin T Baseline 56 ng/L (0-10) H 06/16/23 20:27 Troponin T 120 Minute 59.50 ng/L (0-10) H 06/17/23 00:40 Delta Troponin T 3.50 ABS# (0-10) 06/17/23 00:40 NT-Pro-B Natriuret Pep 37721 pg/mL (0-125) H 06/16/23 20:27 Total Protein 6.8 g/dL (6.6-8.7) 06/16/23 20: Albumin 3.3 g/dL (3.5-5.2) L 06/16/23 20:27 Globulin 3.5 g/dL (1.3-4.6) 06/16/23 20:27 Influenza Type A Ag negative (Negative) 06/16/23 20:03 Influenza Type B Ag negative (Negative) 06/16/23 20:03 SARS-CoV-2 Ag (Rapid) negative (Negative) 06/16/23 20:03 All radiology interpretation(s) finalized by discharge Critical Care Time 2 Critical Care Time: Critical Care Time: Yes Total Critical Care Time: 75 Attestation: The patients was emergently evaluated as this patient's presentation and case had a high probability of a clinically significant, sudden, or life threatening deterioration of this patient's initial critical presentation or condition which required my full and direct attention, intervention and personal management. Discharge Plan Discharge Patient Disposition: Admitted As Inpatient Admit Provider: Misa Landry Clinical Impression: Acute non-ST elevation myocardial infarction (NSTEMI), Hypertension, uncontrolled CHF exacerbation Qualifiers: Heart failure type: unspecified Qualified Code(s): I50.9 - Heart failure, unspecified Condition: Stable Coding Level of Care Code ED Infusion Therapy Nurse for Kiran Holland
--- NOTE | 2023-06-16 19:43 | XRR_ITS ---
PROCEDURE INFORMATION: Exam: XR Chest Exam date and time: 06/16/2023 8:07 PM Age: 72 years old Clinical indication: Dyspnea TECHNIQUE: Imaging protocol: Radiologic exam of the chest. Views: 1 view. COMPARISON: CR XR chest 1V portable [id number] 04/17/2023 3:18 PM FINDINGS: Lungs: Bilateral mid to lower lung field ground-glass airspace opacities reflecting alveolar edema and/or pneumonic infiltrates. Pleural spaces: Unremarkable. No pleural effusion. No pneumothorax. Heart/Mediastinum: Cardiomegaly. Bones/joints: Sternotomy wires. XR/XR chest 1V portable [id number] IMPRESSION: 1. Cardiomegaly. 2. Bilateral mid to lower lung field ground-glass airspace opacities reflecting alveolar edema and/or pneumonic infiltrates. 3. Sternotomy wires.
[2023-06-16 20:30] VITALS: PULSE 108; RESP 20; O2SAT 92
[2023-06-16 20:30] LABS: Influenza A by IFA negative (Negative); Influenza B by IFA negative (Negative); SARS Covid-2 Antigen negative (Negative)
[2023-06-16] MEDS: albuterol 2.5 mg/3 mL Neb 10 MG INHALATION (20:30)
[2023-06-16 20:33] LABS: Basophils # 0.1 10^3/uL (0.0-0.1); Basophils % 0.4 %; Eosinophils # 0.1 10^3/uL (0.0-0.8); Eosinophils % 0.4 %; Hematocrit 41.5 % (36-47); Lymphocytes # 1.8 10^3/uL (0.8-4.8); Lymphocytes % 13.5 %; Mean Corpuscular HGB Conc 30.6 g/dL (30-55); Mean Corpuscular Hemoglobin 25.8 pg (27-33); Mean Corpuscular Volume 84.3 fl (85-98); Mean Platelet Volume 9.8 fL (7.4-10.4); Monocytes # 0.7 10^3/uL (0.2-0.9); Monocytes % 4.9 %; Neutrophils % 80.4 %; Nucleated Red Blood Cells % 0 %; Platelet Count 252 10^3/cmm (157-399); Red Blood Count 4.92 10^6/uL (3.85-5.65); Red Cell Distribution Width 16.5 % (12.1-15.1); White Blood Count 13.55 10^3/uL (3.29-11.43)
[2023-06-16 20:58] VITALS: BP 200/109; PULSE 107; RESP 22; O2SAT 93
[2023-06-16 21:03] LABS: Alanine Aminotransferase 10 U/L (0-33); Albumin Level 3.3 g/dL (3.5-5.2); Alkaline Phosphatase 143 U/L (35-105); Anion Gap 14.9 (5-19); Aspartate Amino Transferase 18 U/L (0-32); Blood Urea Nitrogen 20 mg/dL (8-23); Calcium 9.2 mg/dL (8.5-10.5); Carbon Dioxide 23 mmol/L (22-29); Chloride 106 mmol/L (98-107); Globulin 3.5 g/dL (1.3-4.6); Glucose 256 mg/dL (65-115); Osmolality Calculated 301 mOsm/kg (285-295); Potassium 3.9 mmol/L (3.5-5.1); Sodium 140 mmol/L (136-145); Total Bilirubin 0.4 mg/dL (0.15-1.2); Total Protein 6.8 g/dL (6.6-8.7)
[2023-06-16] MEDS: hyDRALAzine 20 mg/mL INJ 1 mL IVP (21:59)
[2023-06-16] MEDS: FUROsemide 10 mg/mL SDV 10mL 60 MG IVP (22:28)
--- NOTE | 2023-06-16 23:45 | ECG_ITS ---
[facility] Test Date: 2023-06-16 Pat Name: Romi Yuan Department: Room: Gender: Female [employer] Labor: : 1950 Requested By: John Monroe Order Number: [id number] Tessa MD: Ledy Pelayo M.D. Measurements Intervals [place] Rate: 110 P: 0 AR: 0 QRS: -38 QRSD: 113 T: 114 QT: 339 QTc: 460 Interpretive Statements Sinus TACHYCARDIA LEFT AXIS DEVIATION [QRS AXIS < -30] LEFT VENTRICULAR HYPERTROPHY AND ST-T CHANGE [VOLTAGE CRITERIA PLUS ST/T ABNORMALITY] Compared to ECG 04/17/2023 16:59:37 Sinus tachycardia no longer present ST (T wave) deviation still present Electronically Signed On 06-17-2023 21:47:42 PERSONAL INJURY LEGAL ASSISTANT by Ledy Pelayo M.D. [email or web address]
[2023-06-16 23:49] LABS: Troponin(5th) Baseline 56 ng/L (0-10)
[2023-06-17] VITALS (62 sets, daily range): BP systolic 139–197; BP diastolic 55–102; PULSE 75–113; RESP 9–36; TEMP 36.6–36.8; O2SAT 90–99
--- NOTE | 2023-06-17 01:53 | ECG_ITS ---
[facility] Test Date: 2023-06-17 Pat Name: Romi Yuan Department: Room: Gender: Female Loss Prevention Associate: : 1950 Requested By: John Monroe Order Number: [id number] Tessa MD: Ledy Pelayo M.D. Measurements Intervals [place] Rate: 111 P: -15 OR: 128 QRS: -28 QRSD: 114 T: 95 QT: 366 QTc: 499 Interpretive Statements SINUS TACHYCARDIA LEFT VENTRICULAR HYPERTROPHY AND ST-T CHANGE [VOLTAGE CRITERIA PLUS ST/T ABNORMALITY] Compared to ECG 06/16/2023 23:45:55 Supraventricular tachycardia no longer present Left-axis deviation no longer present ST (T wave) deviation still present Electronically Signed On 06-17-2023 21:50:50 [employer]UCK CAR AND BUS CLEANER by Ledy Pelayo M.D. [id number]
[2023-06-17] MEDS: heparin 5,000 unit/mL INJ 1 mL 4000 UNIT IVP (02:28)
[2023-06-17] MEDS: heparin drip 25,000 UNIT/500 ML PREMIX 17 UNIT IV (03:17)
[2023-06-17] MEDS: nitroglycerin drip 50 MG/250 ML PREMIX IV (03:28)
--- NOTE | 2023-06-17 03:50 | P.HP_ITS ---
Providers/Chief Complaint 2 Admitting Physician: Misa Landry MD Primary Care Provider: Jocelyne Kirby Chief Complaint: SOB History of Present Illness Romi Yuan is a 72 year old female with past medical history of CAD s/p CABG , recurrent admissions for pulmonary edema and CHF exacerbation. Most recently she was admitted here in April 2023 at which time she had NSTEMI, was recommended a coronary angiogram, however patient refused due to fear of landing on dialysis. She presents to the emergency room today complaining of midsternal chest pressure and shortness of breath. She has had slight cough with minimal expectoration recently without significant relief with inhalers. While in the emergency room she was noted to have some new ST depression and dynamic EKG changes which raise concern for NSTEMI and patient was started on heparin infusion. Review of Systems 2 General: Reports: 10 or more systems reviewed and unremarkable except in HPI and below Const: Denies: fever(s), chills or body aches Eyes: Denies: change in vision, blurry vision or photophobia ENMT: Reports: hoarseness; Denies: throat pain, enlarged tonsils, odynophagia or nasal congestion Card: Denies: chest pain, palpitations, irregular heart rhythm, edema, swelling of feet/ankles, lightheadedness, pre-syncope, dyspnea on exertion or orthopnea Resp: Denies: dyspnea, productive cough, non-productive cough, wheezing, stridor, pain on inspiration, change in phlegm color, hemoptysis or chest congestion GI: Denies: abdominal pain, nausea, vomiting, hematemesis, coffee ground emesis, dysphagia, heartburn, diarrhea, constipation, GI cramping, change in stool character, hematochezia or melena : Denies: flank pain, difficulty voiding, dysuria, urinary frequency, urinary urgency, urinary hesitancy or hematuria Musc: Denies: neck pain, back pain, extremity pain, joint swelling, joint warmth or deformity Neuro: Denies: headache(s), numbness in extremities, weakness in extremities, sensory changes, difficulty walking, frequent falls, dizziness, vertigo, behavioral changes, Slurred speech present or seizure-like activity Psych: Denies: anxiety, depression, suicidal ideation or homicidal ideation Endo: Denies: polyuria, polydipsia, tired all the time, cold intolerance or hot flashes Alonzo/Lymph: Denies: easy bruising or easy bleeding Medications/Allergies Home Medications Medication Instructions Recorded Confirmed Last Taken Type isosorbide mononitrate 60 mg 60 mg PO BID 07/20/19 05/19/23 04/16/23 History tablet,extended release 24 hr umeclidinium 62.5 mcg-vilanterol 1 inh inhalation DAILY 07/20/19 05/19/23 04/16/23 History 25 mcg/actuation powdr for inhalation (Anoro Ellipta) venlafaxine 150 mg 150 mg PO BEDTIME 07/20/19 05/19/23 04/16/23 History capsule,extended release 24 hr (Effexor XR) methimazole 5 mg tablet 5 mg PO DAILY #30 tabs 03/11/20 05/19/23 04/16/23 Rx blood sugar diagnostic (Accu-Chek #120 ea 06/23/21 05/19/23 Unknown Rx Ana M Plus test strips) clopidogrel 75 mg tablet (Plavix) 75 mg PO DAILY #60 tabs 06/15/22 05/19/23 04/16/23 Rx acitretin 10 mg capsule 10 mg PO QAM 06/19/22 05/19/23 04/17/23 History atorvastatin 40 mg tablet 40 mg PO BEDTIME 06/19/22 05/19/23 04/16/23 History venlafaxine 75 mg capsule,extended 75 mg PO BEDTIME 06/19/22 05/19/23 04/16/23 History release 24 hr docusate sodium 100 mg capsule 100 mg PO BID PRN Constipation 06/24/22 05/19/23 02/26/23 History (Colace) acetaminophen 500 mg tablet 500 mg PO BEDTIME 07/09/22 05/19/23 04/16/23 History albuterol sulfate 90 mcg/actuation 2 puff inhalation QID PRN 07/09/22 05/19/23 02/26/23 History aerosol inhaler (Ventolin HFA) Shortness Of Breath insulin lispro 100 unit/mL See Rx Instructions .Route .COMPLEX 07/09/22 05/19/23 02/26/23 History subcutaneous pen (Humalog KwikPen (U-100) Insulin) nitroglycerin 0.4 mg sublingual 0.4 mg sublingual Q5M PRN Chest 07/09/22 05/19/23 02/26/23 History tablet (Nitrostat) Pain tizanidine 4 mg tablet 4 mg PO BEDTIME 07/09/22 05/19/23 04/16/23 History metoprolol succinate 50 mg 50 mg PO QAM 08/25/22 05/19/23 04/16/23 History tablet,extended release 24 hr cholecalciferol (vitamin D3) 125 125 mcg PO .Weekly 09/07/22 05/19/23 Unknown History mcg (5,000 unit) capsule empagliflozin 10 mg tablet 10 mg PO DAILY 09/07/22 05/19/23 04/16/23 History (Jardiance) insulin detemir U-100 100 unit/mL 11 unit SUBCUT DAILY PRN blood 09/07/22 05/19/23 02/26/23 History (3 mL) subcutaneous pen (Levemir sugar FlexPen) potassium chloride 10 mEq 10 meq PO BID #180 tabs 11/26/22 05/19/23 04/16/23 Rx tablet,extended release furosemide 40 mg tablet 40 mg PO DAILY 02/27/23 05/19/23 04/17/23 History hydralazine 50 mg tablet See Rx Instructions .Route 04/28/23 05/19/23 Unknown Rx .COMPLEX #180 tabs apixaban 2.5 mg tablet 2.5 mg PO BID #180 tabs 05/19/23 05/19/23 Unknown Rx nifedipine 90 mg tablet,extended 90 mg PO DAILY 06/16/23 Unknown History release Allergies Allergy/AdvReac Type Severity Reaction Status Date / Time cefuroxime [From Ceftin] Allergy ALGY-Rash Verified 04/17/23 14:52 cephalexin [From Keflex] Allergy ALGY-Rash Verified 04/17/23 14:52 hydroxyzine [From Vistaril] Allergy ALGY-Anaphy Verified 04/17/23 14:52 laxis Penicillins Allergy ALGY-Redness Verified 04/17/23 14:52 of Skin prochlorperazine Allergy ALGY-Anaphy Verified 04/17/23 14:52 [From Compazine] laxis promethazine [From Phenergan] Allergy ALGY-Anaphy Verified 04/17/23 14:52 laxis venom-honey bee Allergy ALGY-Anaphy Verified 04/17/23 14:52 laxis simvastatin [From Zocor] AdvReac ADR-Heartbu Verified 04/17/23 14:52 rn PFSH Acute 2 PFSH: Medical History (Updated 06/17/23 @ 04:00 by Misa Landry MD) NSTEMI (non-ST elevated myocardial infarction) Eczema CAD (coronary artery disease) Clostridioides difficile infection (07/2022) Insomnia CHF (congestive heart failure) Chronic kidney disease Hypertensive urgency Pneumonia due to COVID-19 virus (~06/2022) Colon polyps History of skin cancer Hyperthyroidism Graves disease History of CVA (cerebrovascular accident) COPD (chronic obstructive pulmonary disease) Anxiety PAD (peripheral artery disease) Diabetes mellitus Carotid arterial disease Dyslipidemia ASHD (arteriosclerotic heart disease) HTN (hypertension) Surgical History Status post insertion of iliac artery stent History of coronary artery stent placement History of cardiac catheterization 06/25/2022 Left main artery: Short, patent. Left circumflex artery: Has patent stents, no significant stenosis. LAD:Occluded in the midsegment. RCA: Known occluded. Not injected. SVG to diagonal artery and SVG to RCA are known occluded. Not injected. LOVETT to LAD: Patent. Coronary anatomy unchanged compared to before. History of renal stent Hx of local excision of skin lesion (09/16/20) Left forearm x2 Status post colonoscopy (09/16/20) S/P hysterectomy with oophorectomy S/P cholecystectomy S/P CABG (coronary artery bypass graft) twice, last in 2004 History of endovascular stent graft for abdominal aortic aneurysm (AAA) S/P cataract surgery S/P skin and subcutaneous tissue surgery Family History Sister Mark's disease Sister No problems noted. Mother No problems noted. Other Anesthesia complication Social History Smoking and tobacco/nicotine status: former use of tobacco/nicotine Alcohol intake: current Alcohol intake frequency: holidays/special occasions only Substance/Drug Use: current Vitals/I&O/Wt Last Vital Signs Temp 98.1 F 06/16/23 19:39 Pulse 109 H 06/17/23 02:42 Resp 17 06/17/23 02:42 BP 185/83 06/17/23 02:42 Pulse Ox 94 06/17/23 02:42 O2 Del Method Room Air 06/17/23 02:42 Weight last 48 hrs Weight 61.235 kg Physical Exam 2 Narrative: General: No acute distress, AO x3 HEENT: PERRLA, pupils bilaterally equal and reactive, pallors not present Chest: Normal vesicular breath sounds, no added sounds, equal good air entry bilaterally CVS: S1-S2 regular, no murmurs, no tachycardia, no gallops, no rubs Abdomen: Soft, nontender, no organomegaly, bowel sounds present Neuro: No focal deficits, no facial deformity, AO x3, power 5/5 in all limbs Data 06/16/23 20:27 06/16/23 20:27 Other data: Radiology Impressions Chest X-Ray 06/16/23 19:43 IMPRESSION: 1. Cardiomegaly. 2. Bilateral mid to lower lung field ground-glass airspace opacities reflecting alveolar edema and/or pneumonic infiltrates. 3. Sternotomy wires. Laboratory Results WBC 13.55 10^3/uL (3.29-11.43) H 06/16/23 20: RBC 4.92 10^6/uL (3.85-5.65) 06/16/23 20: Hgb 12.70 g/dL (11.27-16.99) 06/16/23 20: Hct 41.5 % (36-47) 06/16/23 20: MCV 84.3 fl (85-98) L 06/16/23 20: MCH 25.8 pg (27-33) L 06/16/23 20: MCHC 30.6 g/dL (30-55) 06/16/23 20: RDW 16.5 % (12.1-15.1) H 06/16/23 20: Plt Count 252 10^3/cmm (157-399) 06/16/23 20: MPV 9.8 fL (7.4-10.4) 06/16/23 20: Neut % (Auto) 80.4 % 06/16/23 20: Lymph % (Auto) 13.5 % 06/16/23 20:27 Rogers % (Auto) 4.9 % 06/16/23 20: Eos % (Auto) 0.4 % 06/16/23 20: Baso % (Auto) 0.4 % 06/16/23 20: Neut # (Auto) 10.90 10^3/uL (1.8-7.7) H 06/16/23 20: Lymph # (Auto) 1.8 10^3/uL (0.8-4.8) 06/16/23 20: Rogers # (Auto) 0.7 10^3/uL (0.2-0.9) 06/16/23 20: Eos # (Auto) 0.1 10^3/uL (0.0-0.8) 06/16/23: Baso # (Auto) 0.1 10^3/uL (0.0-0.1) 06/16/23 20: Nucleated RBC % (auto) 0 % 06/16/23: Nucleated RBCs # 0.0 /100WBC 06/16/23 20: Sodium 140 mmol/L (136-145) 06/16/23 20: Potassium 3.9 mmol/L (3.5-5.1) 06/16/23: Chloride 106 mmol/L (98-107) 06/16/23: Carbon Dioxide 23 mmol/L (22-29) 06/16/23 20: Anion Gap 14.9 (5-19) 06/16/23 20: BUN 20 mg/dL (8-23) 06/16/23 20: Creatinine 1.7 mg/dL (0.5-0.9) H 06/16/23 20: GFR Calculation Not Reportable 06/16/23 20: Glucose 256 mg/dL (65-115) H 06/16/23: Calculated Osmolality 301 mOsm/kg (285-295) H 06/16/23: Calcium 9.2 mg/dL (8.5-10.5) 06/16/23 20: Total Bilirubin 0.4 mg/dL (0.15-1.2) 06/16/23 20: AST 18 U/L (0-32) 06/16/23 20: ALT 10 U/L (0-33) 06/16/23 20:27 Alkaline Phosphatase 143 U/L (35-105) H 06/16/23 20:27 Troponin T Baseline 56 ng/L (0-10) H 06/16/23 20: Troponin T 120 Minute 59.50 ng/L (0-10) H 06/17/23 00:40 Delta Troponin T 3.50 ABS# (0-10) 06/17/23 00:40 NT-Pro-B Natriuret Pep 84678 pg/mL (0-125) H 06/16/23 20:27 Total Protein 6.8 g/dL (6.6-8.7) 06/16/23 20: Albumin 3.3 g/dL (3.5-5.2) L 06/16/23 20: Globulin 3.5 g/dL (1.3-4.6) 06/16/23 20:27 Influenza Type A Ag negative (Negative) 06/16/23 20:03 Influenza Type B Ag negative (Negative) 06/16/23 20:03 SARS-CoV-2 Ag (Rapid) negative (Negative) 06/16/23 20:03 A&P Assessment and plan (1) CHF exacerbation: Acute on chronic systolic CHF exacerbation. Qualifiers: Heart failure type: unspecified Qualified Code(s): I50.9 - Heart failure, unspecified (2) NSTEMI (non-ST elevated myocardial infarction): (3) COPD (chronic obstructive pulmonary disease): Plan 72-year-old lady with a longstanding history of coronary artery disease, CHF exacerbation and pulmonary edema necessitating multiple hospital admissions for the same. Currently presenting with chest pain and increased dyspnea. Has elevated BNP at 47,000, chest x-ray showing bilateral infiltrates, Rales on exam with overall picture concerning for acute on chronic systolic CHF exacerbation. Received Lasix 60 mg IV x 1 in the emergency room Closely monitor urine output and kidney function and titrate Lasix dose based on those parameters. Patient also complaining of chest discomfort and during ER evaluation she has been found to have ongoing ST-T wave depression developed between first and serial EKGs. Baseline troponin at 59, pending 2 one 6-hour trend Started on heparin infusion and nitroglycerin infusion at this time. With initiation of nitro infusion her chest pain is currently improved. Aspirin 325 mg now followed by 81 mg p.o. daily. Atorvastatin 40mg daily. Continue plavix 75mg daily. Hold Eliquis while on heparin drip. Per review of chart patient appears to be on Eliquis due to suspected PE on her admission in April 2023. This was based on a moderate probability of PE on VQ scan. Last echocardiogr from February 2023 with ejection fraction of 35%. Cardiology consult in a.m. to assess for possible cardiac cath, patient is agreeable currently. Duoneb and budesonide schedule dnebulizations for known COPD, not currently exacerbated Attestations 2 Medical Necessity Statement*: Anticipate greater than 2 midnight admission at this time for IV diuresis, ongoing heparin and nitroglycerin infusions, cardiology assessment Coding Level of Care Code Acute Code for Chg Fwd High MDM includes number and complexity of problems actively addressed during encounter, amount and/or complexity of data reviewed/ordered and described risk of complication, morbidity or mortality of management as documented Diagnoses CHF exacerbation I50.9 Heart failure type: unspecified NSTEMI (non-ST elevated myocardial infarction) I21.4 COPD (chronic obstructive pulmonary disease) J44.9
[2023-06-17] MEDS: aspirin 81 mg Chew Tablet 324 MG PO (04:57)
[2023-06-17] MEDS: metoprolol succinate ER (24 HR) 50 mg Tablet PO (04:57)
--- NOTE | 2023-06-17 05:20 | ECG_ITS ---
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 Measurements Intervals [place] Rate: 85 P: 46 [place]: 151 QRS: -34 QRSD: 110 T: 128 QT: 416 QTc: 497 Interpretive Statements SINUS RHYTHM POSSIBLE LEFT ATRIAL ENLARGEMENT [-0.1mV P-WAVE IN V1/V2] LEFT AXIS DEVIATION [QRS AXIS < -30] LEFT VENTRICULAR HYPERTROPHY AND ST-T CHANGE [VOLTAGE CRITERIA PLUS ST/T ABNORMALITY] Compared to ECG 06/17/2023 01:53:38 Left-axis deviation now present Sinus tachycardia no longer present ST (T wave) deviation still present Electronically Signed On 06-17-2023 21:51:14 [employer] by Ledy Pelayo M.D. [email or web address]
[2023-06-17 05:33] LABS: Troponin 5 6HR 133.9 ng/L (0-10); Troponin 5 6HR Delta 77.9 ng/L (0-12)
--- NOTE | 2023-06-17 05:43 | PC.NURSE ---
Dr Ladnry notified of patients 6hr delta results.
--- NOTE | 2023-06-17 07:55 | PC.PHAR ---
06/17/23 PT STATES TOOK ONLY AM MEDICATIONS YESTERDAY AND NONE OF HER MEDICATIONS IN THE EVENING.
[2023-06-17 08:36] LABS: Glucose Point of Care 242 mg/dL (70-110)
--- NOTE | 2023-06-17 08:42 | P.CONIM_ITS ---
Providers/Reason For Consult 2 Consulting Physician/Specialty*: Jamin Pelayo MD/cardiology Reason for Consult*: Patient with features of [id number] myocardial infarction/congestive heart failure Requesting Physician: Dr Timoteo Landry/Dr. Fu Attending Physician: Berto Fu MD Primary Care Provider: Jocelyne Kirby History of Present Illness History of Present Illness Romi Yuan is a 72 year old female with a history of coronary artery disease, status post coronary bypass surgery, status post PCI, status post multiple hospital admissions with a NSTEMI and heart failure is admitted with complaints of chest pain and shortness of breath. This patient apparently has been at baseline state of health up until yesterday 3:00 when she tried having some chest heaviness and shortness of breath. The shortness of breath is slowly getting worse. Every time when she gets up and move around, she was significantly short of breath. For this reason, she was brought to the emergency room. She was having some upper respiratory infection symptoms for the last few days. While being in the emergency room, she started having chest pain. The pain was radiated to the left side of the neck and also to her jaw. Initial troponin Ts was found to be elevated. She had a positive delta at 2 hours. For this reason, she is admitted to hospital for further evaluation management. This patient has a history of coronary disease and had three-vessel coronary bypass surgery 1994. This was done in [facility]. She had a redo coronary artery bypass surgery in 2004 at the [facility] in [facility].. According the patient, this time also she had a three-vessel coronary artery bypass surgery. Based on the cardiac catheterization in June 2022, she was found to have occluded venous graft to the RCA and the diagonal arteries. The LOVETT to the LAD was patent. Patient was admitted to the hospital in February and April of last year with features of non-ST relation myocardial infarction complicated with congestive heart failure. She also was found to have features of acute kidney injury. It was opted to treat her medically at that time. This patient also has a history of peripheral arterial disease and had? A kissing stent placement to the aortic bifurcation. She has a history of hypertension, dyslipidemia, chronic kidney disease, type 2 diabetes and COPD. She used to be a heavy smoker. No alcohol abuse or any other substance abuse. Review of Systems 2 Narrative: CONSTITUTIONAL: No fever or chills. Has been having some upper respiratory infection symptoms for the last couple of days. EYES: No blurring of vision or other visual disturbances lately. ENT: No hoarseness of voice, auditory disturbances or sore throat. CARDIOVASCULAR: As mentioned above. RESPIRATORY: No significant cough. GASTROINTESTINAL: No hematemesis or melena. GENITOURINARY: History of chronic kidney disease INTEGUMENTARY: No skin rashes or history of skin cancer. NEURO: No transient ischemic attacks or amaurosis. PSYCHIATRIC: No history of psychosis or major depression. HEMATOLOGIC: No bleeding disorders or significant anemia. ENDOCRINE: History of diabetes MUSCULOSKELETAL: No recent joint pain or swelling. ALLERGY/IMMUNOLOGY: As mentioned above. Medications/Allergies Home Medications Medication Instructions Recorded Confirmed Last Taken Type isosorbide mononitrate 60 mg 60 mg PO BID 07/20/19 06/17/23 06/16/23 History tablet,extended release 24 hr umeclidinium 62.5 mcg-vilanterol 1 inh inhalation DAILY 07/20/19 06/17/23 06/16/23 History 25 mcg/actuation powdr for inhalation (Anoro Ellipta) venlafaxine 150 mg See Rx Instructions .Route .COMPLEX 07/20/19 06/17/23 06/15/23 History capsule,extended release 24 hr (Effexor XR) methimazole 5 mg tablet 5 mg PO DAILY #30 tabs 03/11/20 06/17/23 06/16/23 Rx blood sugar diagnostic (Accu-Chek #120 ea 06/23/21 06/17/23 Unknown Rx Ana M Plus test strips) clopidogrel 75 mg tablet (Plavix) 75 mg PO DAILY #60 tabs 06/15/22 06/17/23 06/16/23 Rx acitretin 10 mg capsule 10 mg PO QAM 06/19/22 06/17/23 06/16/23 History atorvastatin 40 mg tablet 40 mg PO BEDTIME 06/19/22 06/17/23 06/15/23 History venlafaxine 75 mg capsule,extended See Rx Instructions .Route .COMPLEX 06/19/22 06/17/23 06/15/23 History release 24 hr acetaminophen 500 mg tablet 500 mg PO BEDTIME 07/09/22 06/17/23 06/15/23 History albuterol sulfate 90 mcg/actuation 2 puff inhalation QID PRN 07/09/22 06/17/23 02/26/23 History aerosol inhaler (Ventolin HFA) Shortness Of Breath insulin lispro 100 unit/mL See Rx Instructions .Route .COMPLEX 07/09/22 06/17/23 02/26/23 History subcutaneous pen (Humalog KwikPen (U-100) Insulin) nitroglycerin 0.4 mg sublingual 0.4 mg sublingual Q5M PRN Chest 07/09/22 06/17/23 02/26/23 History tablet (Nitrostat) Pain tizanidine 4 mg tablet 4 mg PO BEDTIME 07/09/22 06/17/23 06/15/23 History metoprolol succinate 50 mg 50 mg PO QAM 08/25/22 06/17/23 06/16/23 History tablet,extended release 24 hr cholecalciferol (vitamin D3) 125 125 mcg PO Q7D 09/07/22 06/17/23 06/13/23 History mcg (5,000 unit) capsule empagliflozin 10 mg tablet 10 mg PO DAILY 09/07/22 06/17/23 06/16/23 History (Jardiance) insulin detemir U-100 100 unit/mL 11 unit SUBCUT DAILY PRN blood 09/07/22 06/17/23 06/16/23 History (3 mL) subcutaneous pen (Levemir sugar FlexPen) potassium chloride 10 mEq 10 meq PO BID #180 tabs 11/26/22 06/17/23 06/16/23 Rx tablet,extended release furosemide 40 mg tablet See Rx Instructions .Route .COMPLEX 02/27/23 06/17/23 06/16/23 History apixaban 2.5 mg tablet 2.5 mg PO BID #180 tabs 05/19/23 06/17/23 06/16/23 Rx nifedipine 90 mg tablet,extended 90 mg PO DAILY 06/16/23 06/17/23 06/16/23 History release amlodipine 5 mg tablet 2.5 mg PO BEDTIME 06/17/23 06/17/23 06/15/23 History calcitriol 0.25 mcg capsule See Rx Instructions .Route .COMPLEX 06/17/23 06/17/23 06/16/23 History hydralazine 50 mg tablet 50 mg PO BID 06/17/23 06/17/23 06/16/23 History Allergies Allergy/AdvReac Type Severity Reaction Status Date / Time cefuroxime [From Ceftin] Allergy ALGY-Rash Verified 04/17/23 14:52 cephalexin [From Keflex] Allergy ALGY-Rash Verified 04/17/23 14:52 hydroxyzine [From Vistaril] Allergy ALGY-Anaphy Verified 04/17/23 14:52 laxis Penicillins Allergy ALGY-Redness Verified 04/17/23 14:52 of Skin prochlorperazine Allergy ALGY-Anaphy Verified 04/17/23 14:52 [From Compazine] laxis promethazine [From Phenergan] Allergy ALGY-Anaphy Verified 04/17/23 14:52 laxis venom-honey bee Allergy ALGY-Anaphy Verified 04/17/23 14:52 laxis simvastatin [From Zocor] AdvReac ADR-Heartbu Verified 04/17/23 14:52 rn Current Medications Generic Name Dose Route Start Last Admin Trade Name Freq PRN Reason Stop Dose Admin Heparin Sodium/Sodium Chloride 25,000 unit in 500 mls @ 17.146 mls/hr 06/17/23 02:15 06/17/23 03:17 Heparin Drip IV 13.88 unit/kg/hr .Q24H YASMANI 17 mls/hr Administration 14 UNIT/KG/HR Nitroglycerin/Dextrose 50 mg in 250 mls @ 0 mls/hr 06/17/23 02:15 06/17/23 04:58 Nitroglycerin Drip IV 10 mcg/min .Q0M YASMANI 3 mls/hr Titration Protocol Per Protocol Metoprolol Succinate 50 mg 06/17/23 04:20 06/17/23 04:57 Metoprolol Succinate Er (24 Hr) 50 Mg Tablet PO 50 mg DAILY YASMANI Administration PFSH Acute 2 PFSH: Medical History (Updated 06/17/23 @ 17:04 by Ledy Pelayo MD) PAD (peripheral artery disease) Dyslipidemia HTN (hypertension) NSTEMI (non-ST elevated myocardial infarction) Eczema CAD (coronary artery disease) Clostridioides difficile infection (07/2022) Insomnia CHF (congestive heart failure) Chronic kidney disease Hypertensive urgency Pneumonia due to COVID-19 virus (~06/2022) Colon polyps History of skin cancer Hyperthyroidism Graves disease History of CVA (cerebrovascular accident) COPD (chronic obstructive pulmonary disease) Anxiety Diabetes mellitus Carotid arterial disease ASHD (arteriosclerotic heart disease) Surgical History Status post insertion of iliac artery stent History of coronary artery stent placement History of cardiac catheterization 06/25/2022 Left main artery: Short, patent. Left circumflex artery: Has patent stents, no significant stenosis. LAD:Occluded in the midsegment. RCA: Known occluded. Not injected. SVG to diagonal artery and SVG to RCA are known occluded. Not injected. LOVETT to LAD: Patent. Coronary anatomy unchanged compared to before. History of renal stent Hx of local excision of skin lesion (09/16/20) Left forearm x2 Status post colonoscopy (09/16/20) S/P hysterectomy with oophorectomy S/P cholecystectomy S/P CABG (coronary artery bypass graft) twice, last in 2004 History of endovascular stent graft for abdominal aortic aneurysm (AAA) S/P cataract surgery S/P skin and subcutaneous tissue surgery Family History Sister Mark's disease Sister No problems noted. Mother No problems noted. Other Anesthesia complication Social History Smoking and tobacco/nicotine status: former use of tobacco/nicotine Alcohol intake: current Alcohol intake frequency: holidays/special occasions only Substance/Drug Use: current Vitals/I&O/Wt Last Vital Signs Temp 98.1 F 06/16/23 19:39 Pulse 85 06/17/23 05:59 Resp 18 06/17/23 05:59 BP 139/55 06/17/23 05:59 Pulse Ox 94 06/17/23 05:59 O2 Del Method Room Air 06/17/23 05:59 06/16/23 06/17/23 06/17/23 22:59 06:59 14:59 Intake Total 2.25 / 2.25 Balance 2.25 / 2.25 Weight last 48 hrs Weight 135 lb Physical Exam 2 Narrative: GENERAL: The patient is alert and oriented times three. Not in any acute distress. HEENT: No significant pallor, icterus or lymphadenopathy.Oral cavity: There are no mucous membrane lesions. NECK: Trachea appears to be central. No masses noted. No JVD or thyromegaly appreciated. RESPIRATORY: Chest is symmetrical. No intercostals muscle retraction or any accessory muscle activation. There is no chest wall tenderness. Breath sounds are heard bilaterally. No rales or rhonchi heard. No evidence of any consolidation. BREASTS: Deferred. HEART: The heart sounds are normal. No S3 or S4. Short systolic murmur at the left sternal border. No pericardial rub ABDOMEN: No vessel pulsations or distention. No tenderness. No organomegaly appreciated. Bowel sounds are normally heard. : Deferred. RECTAL: Deferred. LYMPHATIC: No lymphadenopathy noted in the neck. EXTREMITIES: The peripheral pulses are VERY weak bilaterally MUSCULOSKELETAL: No acute joint deformities or swelling SKIN: There are no significant rashes or ecchymosis NEUROPSYCHIATRIC: The patient is alert and oriented x3. Appears to be in a good mood. No tremors or rigidity noted. Data 06/17/23 09:56 06/17/23 09:56 Other Labs: Laboratory Last Values WBC 9.44 10^3/uL (3.29-11.43) 06/17/23 09:56 RBC 4.67 10^6/uL (3.85-5.65) 06/17/23 09:56 Hgb 12.00 g/dL (11.27-16.99) 06/17/23 09:56 Hct 38.2 % (36-47) 06/17/23 09:56 MCV 81.8 fl (85-98) L 06/17/23 09:56 MCH 25.7 pg (27-33) L 06/17/23 09:56 MCHC 31.4 g/dL (30-55) 06/17/23 09:56 RDW 16.8 % (12.1-15.1) H 06/17/23 09:56 Plt Count 268 10^3/cmm (157-399) 06/17/23 09:56 MPV 10.5 fL (7.4-10.4) H 06/17/23 09:56 Neut % (Auto) 77.0 % 06/17/23 09:56 Lymph % (Auto) 17.4 % 06/17/23 09:56 Drew % (Auto) 5.2 % 06/17/23 09:56 Eos % (Auto) 0.0 % 06/17/23 09:56 Baso % (Auto) 0.2 % 06/17/23 09:56 Neut # (Auto) 7.27 10^3/uL (1.8-7.7) 06/17/23 09:56 Lymph # (Auto) 1.6 10^3/uL (0.8-4.8) 06/17/23 09:56 Drew # (Auto) 0.5 10^3/uL (0.2-0.9) 06/17/23 09:56 Eos # (Auto) 0.0 10^3/uL (0.0-0.8) 06/17/23 09:56 Baso # (Auto) 0.0 10^3/uL (0.0-0.1) 06/17/23 09:56 Nucleated RBC % (auto) 0 % 06/17/23 09:56 Nucleated RBCs # 0.0 /100WBC 06/17/23 09:56 APTT 92.3 SECONDS (23.9-36.7) H 06/17/23 12:20 Sodium 142 mmol/L (136-145) 06/17/23 09:56 Potassium 4.0 mmol/L (3.5-5.1) 06/17/23 09:56 Chloride 106 mmol/L (98-107) 06/17/23 09:56 Carbon Dioxide 24 mmol/L (22-29) 06/17/23 09:56 Anion Gap 16.0 (5-19) 06/17/23 09:56 BUN 24 mg/dL (8-23) H 06/17/23 09:56 Creatinine 1.8 mg/dL (0.5-0.9) H 06/17/23 09:56 GFR Calculation Not Reportable 06/17/23 09:56 Glucose 227 mg/dL (65-115) H 06/17/23 09:56 POC Glucose 124 mg/dL (70-110) H 06/17/23 16:17 Calculated Osmolality 305 mOsm/kg (285-295) H 06/17/23 09:56 Calcium 9.1 mg/dL (8.5-10.5) 06/17/23 09:56 Total Bilirubin 0.4 mg/dL (0.15-1.2) 06/16/23 20: AST 18 U/L (0-32) 06/16/23 20: ALT 10 U/L (0-33) 06/16/23 20: Alkaline Phosphatase 143 U/L (35-105) H 06/16/23 20:27 Troponin T Baseline 56 ng/L (0-10) H 06/16/23 20: Troponin T 120 Minute 59.50 ng/L (0-10) H 06/17/23 00:40 Delta Troponin T 3.50 ABS# (0-10) 06/17/23 00:40 Troponin T Hi Sens 6Hr 133.9 ng/L (0-10) H 06/17/23 05:07 Troponin T Hi Sens 6Hr Delta 77.9 ng/L (0-12) H* 06/17/23 05:07 NT-Pro-B Natriuret Pep 05322 pg/mL (0-125) H 06/16/23 20: Total Protein 6.8 g/dL (6.6-8.7) 06/16/23 20: Albumin 3.3 g/dL (3.5-5.2) L 06/16/23 20: Globulin 3.5 g/dL (1.3-4.6) 06/16/23 20: TSH 2.58 uIU/mL (0.27-4.20) 06/16/23 20: Free T4 1.27 ng/dL (0.82-1.77) 06/16/23 20: Free T3 2.7 PG/ML (2.0-4.4) 06/16/23 20:27 Influenza Type A Ag negative (Negative) 06/16/23 20:03 Influenza Type B Ag negative (Negative) 06/16/23 20: SARS-CoV-2 Ag (Rapid) negative (Negative) 06/16/23 20: EKG 1: My Interpretation: Normal sinus rhythm with left axis deviation. Possible left atrial enlargement. Features of LVH. Diffuse nonspecific ST-T changes. Possible old inferior wall WA. Other data: Echocardiogram on 02/27/2023 This is a limited echocardiogram performed to assess LV systolic function. LV systolic function is moderately reduced with EF of 35 to 40%. Moderate global hypokinesis. Compared to prior echocardiogram from 08/25/2022, LV systolic function appears to be slightly improved. Echocardiogram on 08/25/2022 LV systolic function is severely reduced with EF 50 to 55%. Severe global hypokinesis. Grade 1 diastolic dysfunction Left atrial dilation Moderate mitral regurgitation. Trace tricuspid regurgitation Compared to prior echocardiogram from 06/15/2022,LV systolic function has decreased. Cardiac catheterization on 06/24/2022 1. Left main artery: Short, patent. Left circumflex artery: Has patent stents, no significant stenosis. LAD:Occluded in the midsegment. RCA: Known occluded. Not injected. SVG to diagonal artery and SVG to RCA are known occluded. Not injected. LOVETT to LAD: Patent.. 2. Coronary anatomy unchanged compared to before. 3. Some difficulty noted in advancing catheter to subclavian artery. Can consider CT scan at a later time to assess subclavian stenosis. 4. Patient has prior CABG. Abdominal aortogram with runoff on 08/25/2019 1. 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 2. Distal abdominal aortic stent with extension into right common iliac artery. 3. Unusual central filling defect of the right internal iliac artery. 4. Moderate peripheral vascular disease of all the arteries of the lower extremities. A&P Assessment and plan (1) NSTEMI (non-ST elevated myocardial infarction): The patient the clinical features are consistent with a non-ST ovation myocardial infarction. EKG showing diffuse nonspecific ST-T changes. This patient may be treated with heparin, Plavix, aspirin and other symptomatic measures. (2) Atherosclerotic heart disease of [place] coronary artery with other forms of angina pectoris: Patient had open heart surgery x 2 and also multiple PCI's. The most recent angiogram findings are as mentioned below. In view of the recurrent [id number]-svytywlva myocardial infarction and congestive heart failure, a repeat angiogram might be appropriate. However patient carries a higher risk for contrast-induced nephropathy and other complications. (3) Congestive heart failure: Patient will be carefully treated with IV diuretics. Qualifiers: Heart failure chronicity: chronic Heart failure type: combined systolic and diastolic Qualified Code(s): I50.42 - Chronic combined systolic (congestive) and diastolic (congestive) heart failure (4) Ischemic cardiomyopathy: The LV ejection fraction was around 35% echocardiogram in February.. A repeat echocardiogram be appropriate to reevaluate the ejection fraction especially in view of the repeated myocardial infarctionS and decompensated heart failure versus. Based on the results, further recommendations will be made (5) Chronic kidney disease: Patient's kidney function seems to be stable. There is also may need to be closely monitored. Qualifiers: Chronic kidney disease stage: stage 3 (moderate) Chronic kidney disease stage 3 subtype: stage 3a (GFR 45-59) Qualified Code(s): N18.31 - Chronic kidney disease, stage 3a (6) HTN (hypertension): The blood pressures are stage II. Antihypertensive medications need to be optimized. Qualifiers: Hypertension type: primary hypertension Qualified Code(s): I10 - Essential (primary) hypertension (7) Dyslipidemia: May continue on the current medications. (8) PAD (peripheral artery disease): I may go ahead and do an arterial Doppler examination to follow-up on the peripheral arterial disease. Based on the results, further recommendations will be made (9) COPD (chronic obstructive pulmonary disease): Management as per the primary. Qualifiers: COPD type: unspecified COPD Qualified Code(s): J44.9 - Chronic obstructive pulmonary disease, unspecified Plan Based on the results of the above tests and the patient's clinical progress, further recommendations will be made. Thank you for the opportunity to evaluate this patient and make these recommendations Consult Attestations 2 Medical Necessity Statement: Patient requires continued hospital stay for close monitoring and further management Coding Level of Care Code 07661 Diagnoses NSTEMI (non-ST elevated myocardial infarction) I21.4 Atherosclerotic heart disease of [place] coronary artery with other forms of angina pectoris I25.118 Chronic combined systolic and diastolic congestive heart failure I50.42 Heart failure chronicity: chronic Heart failure type: combined systolic and diastolic Ischemic cardiomyopathy I25.5 Stage 3a chronic kidney disease N18.31 Chronic kidney disease stage: stage 3 (moderate) Chronic kidney disease stage 3 subtype: stage 3a (GFR 45-59) Primary hypertension I10 Hypertension type: primary hypertension Dyslipidemia E78.5 PAD (peripheral artery disease) I73.9 Chronic obstructive pulmonary disease, unspecified COPD type J44.9 COPD type: unspecified COPD
[2023-06-17] MEDS: budesonide 0.5 mg/2 mL Neb INHALATION ×2 (09:07→20:22)
[2023-06-17] MEDS: ipratropium-albuterol 3 mL Neb INHALATION ×3 (09:07→20:22)
[2023-06-17] MEDS: isosorbide mononitrate ER 60 mg Tablet PO ×2 (09:30→18:07)
[2023-06-17] MEDS: aspirin 81 mg EC Tablet PO (09:30)
[2023-06-17] MEDS: pantoprazole DR 40 mg Tablet PO (09:30)
[2023-06-17] MEDS: clopidogrel 75 mg Tablet PO (09:30)
[2023-06-17] MEDS: insulin lispro 100 unit/1 mL SUBCUT ×2 (09:30→20:44)
--- NOTE | 2023-06-17 09:34 | W.PM.EVENTAC ---
Event Note Event Note: History and physical reviewed. Patient presents with CHF exacerbation, non-ST elevation myocardial infarction. Currently on a nitroglycerin drip, heparin, aspirin, statin, beta-lexy. Cardiology evaluating. Has known ischemic cardiomyopathy. Will also check TSH, free T4, free T3 as she is on methimazole
[2023-06-17 09:47] LABS: Free T4 Free Thyroxine 1.27 ng/dL (0.82-1.77); T3 Free 2.7 PG/ML (2.0-4.4); Thyroid Stimulating Hormone 2.58 uIU/mL (0.27-4.20)
--- NOTE | 2023-06-17 09:49 | PC.NURSE ---
NITRO DRIP TITRATED TO 20MCG/MIN PER DR REAVES VERBAL ORDER AT BEDSIDE. PT DENIES CHEST PAIN AT THIS TIME.
[2023-06-17] MEDS: FUROsemide 10 mg/mL SDV 4mL 40 MG IVP (10:06)
[2023-06-17 10:11] LABS: Basophils % 0.2 %; Hematocrit 38.2 % (36-47); Lymphocytes # 1.6 10^3/uL (0.8-4.8); Lymphocytes % 17.4 %; Mean Corpuscular HGB Conc 31.4 g/dL (30-55); Mean Corpuscular Hemoglobin 25.7 pg (27-33); Mean Corpuscular Volume 81.8 fl (85-98); Mean Platelet Volume 10.5 fL (7.4-10.4); Monocytes # 0.5 10^3/uL (0.2-0.9); Monocytes % 5.2 %; Neutrophils # 7.27 10^3/uL (1.8-7.7); Nucleated Red Blood Cells % 0 %; Platelet Count 268 10^3/cmm (157-399); Red Blood Count 4.67 10^6/uL (3.85-5.65); Red Cell Distribution Width 16.8 % (12.1-15.1); White Blood Count 9.44 10^3/uL (3.29-11.43)
[2023-06-17 10:22] LABS: Blood Urea Nitrogen 24 mg/dL (8-23); Calcium 9.1 mg/dL (8.5-10.5); Carbon Dioxide 24 mmol/L (22-29); Chloride 106 mmol/L (98-107); Glucose 227 mg/dL (65-115); Osmolality Calculated 305 mOsm/kg (285-295); Sodium 142 mmol/L (136-145)
[2023-06-17 12:51] LABS: Partial Thromboplastin Time 92.3 SECONDS (23.9-36.7)
[2023-06-17 13:10] LABS: Glucose Point of Care 81 mg/dL (70-110)
[2023-06-17 16:42] LABS: Glucose Point of Care 124 mg/dL (70-110)
--- NOTE | 2023-06-17 16:49 | USCV_ITS ---
Romi Yuan Age: 72 Gender: F : 1950 Exam Date: 06/17/2023 18:18 Ordering Phys: Ledy Pelayo MD ([email or web address]) Technologist: CAROLANN Exam Location: [facility] [place] Indication: CHF, NSTEMI, hx COPD, hx CAD, s/p CABG 1994, 2004 BP: 181 / 82 HR: 81 Rhythm: Sinus Technical Quality: Adequate MEASUREMENTS (Male / Female) Normal Values 2D ECHO LV Diastolic Diameter PLAX 5.1 cm 4.2 - 5.9 / 3.9 - 5.3 cm LV Systolic Diameter PLAX 4.7 cm IVS Diastolic Thickness 2.1 cm 0.6 - 1.0 / 0.6 - 0.9 cm IVS Systolic Thickness 2.1 cm LVPW Diastolic Thickness 1.0 cm 0.6 - 1.0 / 0.6 - 0.9 cm LVPW Systolic Thickness 0.8 cm LVOT Diameter 1.9 cm LV Ejection Fraction 2D Teich 19.7 % LV Ejection Fraction MOD 2C 32.5 % LV Ejection Fraction 2C AL 33.7 % LA Diameter 5.0 cm LA Width 4.6 cm LA Height 5.9 cm RA Width 3.3 cm RA Height 5.2 cm Aorta at Sinotubular Diameter 2.5 cm IVC Diameter 0.9 cm M-MODE Aortic Annulus Diameter 2.6 cm LA Ao Ratio MM 2.0 MV E Point Septal Separation 2.0 cm DOPPLER AV Peak Velocity 170.0 cm/s LVOT Peak Velocity 46.0 cm/s AV Area Cont Eq vti 0.9 cm squared AV Area Cont Eq pk 0.7 cm squared MV Peak Velocity 160.0 cm/s MV Area PHT 3.1 cm squared Mitral E to A Ratio 0.7 MV E' Velocity 44.5 cm/s Mitral E to MV E' Ratio 27.3 Mitral E to LV E' Lateral Ratio 24.2 Mitral E to LV E' Septal Ratio 31.3 TV Peak E Velocity 69.0 cm/s PV Peak Velocity 132.0 cm/s RV Acceleration Time 0.1 s RV Ejection Time 0.4 s RV AcT/ET 0.3 FINDINGS Left Ventricle Diffuse hypokinesia of the left ventricular ejection fraction of 33%.Grade I/IV diastolic dysfunction (abnormal relaxation filling pattern), normal to mildly elevated filling pressures. Right Ventricle The right ventricle is normal in size and function. Right Atrium Normal right atrial size. Left Atrium Mildly increased left atrial size. Mitral Valve Thickened mitral valve. Mild mitral annular calcification. Moderate mitral valve regurgitation. Aortic Valve Thickened aortic valve. Tricuspid Valve No gross abnormalities noted Pulmonic Valve No gross abnormalities noted Pericardium No pericardial effusion. Aorta Normal ascending aorta dimension. IVC Inferior vena cava not visualized. CONCLUSIONS Diffuse hypokinesia of the left ventricular ejection fraction of 33%.Grade I/IV diastolic dysfunction (abnormal relaxation filling pattern), normal to mildly elevated filling pressures. Mildly increased left atrial size. Thickened mitral valve. Mild mitral annular calcification. Moderate mitral valve regurgitation. Thickened aortic valve. There is no pericardial effusion. There are no intracardiac masses. Compared to the study from 02/27/2023 there is slight decline in the LV ejection fraction Dr Ledy Pelayo MD FAC (Electronically Signed) Final Date: 17 June 2023 19:41 S
--- NOTE | 2023-06-17 17:00 | USCV_ITS ---
Romi Yuan Age: 72 Gender: F : 1950 Exam Date: 06/17/2023 19:03 Ordering Phys: Ledy Pelayo MD ([email or web address]) Technologist: BAILEY Exam Location: [facility] [place] Indication: PAD, s/p bilateral JIM stenting 2019, IDDM X 7years, quit smoking 2005, weak pulse. Risk Factors: PAD, s/p bilateral JIM stenting 2019, IDDM X 7years, quit smoking 2004, weak pulse. Previous Vascular Surgery: bilateral JIM stenting 2019 RIGHT LEFT BP: 181.0 / 82.00 BP: / 0 Waveform Velocity (cm/s) Velocity (cm/s) Waveform Biphasic 159.5 Iliac Prox 140.7 Biphasic Biphasic 160.0 Iliac Mid 159.1 Biphasic Biphasic 90.4 Iliac Distal 130.1 Biphasic Biphasic 341.8 BOW MAKING MACHINE OPERATOR 122.1 Biphasic Biphasic SFA Prox Biphasic 239.3 216.5 Biphasic 109.7 SFA Mid 93.1 Biphasic Biphasic 81.0 SFA Dist 89.7 Biphasic Biphasic 79.2 POP 64.9 Biphasic Biphasic STEAM BLOCKER 53.8 Biphasic 82.7 Biphasic 93.7 DPA 53.8 Monophasic 1.0 MARCELO 0.9 FINDINGS Mild to moderate diffuse plaques in the iliac, femoral and popliteal artery on the right side Elevated velocity with a cough or turbulent color flow turbulence at the junction of the common femoral and takeoff of the profundofemoral artery on the right side suggesting greater than 60% stenosis Resting MARCELO 1.0 on the right side and 0.9 on the left side CONCLUSIONS 1. Elevated Doppler flow velocity with a flow turbulence suggesting greater than 60% stenosis in the right common femoral artery at the takeoff of the profunda femoral. 2. Normal resting MARCELO on the right side with a slightly diminished resting MARCELO on the left side 3. Mild to moderate diffuse plaques in the iliac, femoral and popliteal arteries bilaterally Dr Ledy Pelayo MD [facility] (Electronically Signed) Final Date: 18 June 2023 12:19 S
[2023-06-17] MEDS: hyDRALAzine 50 mg Tablet PO (18:07)
[2023-06-17 20:16] LABS: Glucose Point of Care 236 mg/dL (70-110)
[2023-06-17] MEDS: venlafaxine ER (24HR) 150 mg Capsule PO (20:44)
[2023-06-17] MEDS: atorvastatin 40 mg Tablet PO (20:44)
[2023-06-17] MEDS: amlodipine 5 mg Tablet 2.5 MG PO (20:44)
[2023-06-17 21:42] LABS: Partial Thromboplastin Time 65.2 SECONDS (23.9-36.7)
[2023-06-17 23:15] LABS: Platelet Count 254 10^3/cmm (157-399)
[2023-06-17] MEDS: heparin drip 25,000 UNIT/500 ML PREMIX 15 UNIT IV (23:35)
[2023-06-18] VITALS (80 sets, daily range): BP systolic 130–175; BP diastolic 66–106; PULSE 71–106; RESP 4–34; TEMP 36.7–36.9; O2SAT 93–100
[2023-06-18] MEDS: ipratropium-albuterol 3 mL Neb INHALATION ×4 (02:41→20:06)
[2023-06-18 03:52] LABS: Basophils % 0.4 %; Eosinophils # 0.1 10^3/uL (0.0-0.8); Eosinophils % 1.1 %; Hematocrit 39.2 % (36-47); Lymphocytes # 2.2 10^3/uL (0.8-4.8); Lymphocytes % 27.1 %; Mean Corpuscular HGB Conc 31.1 g/dL (30-55); Mean Corpuscular Hemoglobin 25.3 pg (27-33); Mean Corpuscular Volume 81.3 fl (85-98); Mean Platelet Volume 9.9 fL (7.4-10.4); Monocytes # 0.5 10^3/uL (0.2-0.9); Monocytes % 6.6 %; Neutrophils # 5.19 10^3/uL (1.8-7.7); Neutrophils % 64.7 %; Nucleated Red Blood Cells % 0 %; Platelet Count 241 10^3/cmm (157-399); Red Blood Count 4.82 10^6/uL (3.85-5.65); Red Cell Distribution Width 16.6 % (12.1-15.1); White Blood Count 8.03 10^3/uL (3.29-11.43)
[2023-06-18 04:04] LABS: Partial Thromboplastin Time 59.5 SECONDS (23.9-36.7)
[2023-06-18 04:16] LABS: Alanine Aminotransferase 7 U/L (0-33); Alkaline Phosphatase 118 U/L (35-105); Aspartate Amino Transferase 23 U/L (0-32); Blood Urea Nitrogen 32 mg/dL (8-23); Calcium 9.6 mg/dL (8.5-10.5); Carbon Dioxide 24 mmol/L (22-29); Chloride 107 mmol/L (98-107); Globulin 3.5 g/dL (1.3-4.6); Glucose 205 mg/dL (65-115); Magnesium 2.1 mg/dL (1.7-2.3); Osmolality Calculated 311 mOsm/kg (285-295); Sodium 144 mmol/L (136-145); Total Bilirubin 0.3 mg/dL (0.15-1.2); Total Protein 6.5 g/dL (6.6-8.7)
[2023-06-18 06:14] LABS: Glucose Point of Care 210 mg/dL (70-110)
--- NOTE | 2023-06-18 08:16 | P.PN_ITS ---
Subjective 2 Subjective: No chest discomfort overnight. In discussion with cardiology regarding possible angiogram. Medications: Reviewed: Yes Vitals/I&O/Wt Last Vital Signs Temp 98.2 F 06/18/23 06:15 Pulse 99 06/18/23 06:18 Resp 25 H 06/18/23 06:15 BP 158/82 06/18/23 06:15 Pulse Ox 95 06/18/23 06:15 O2 Del Method Room Air 06/18/23 02:42 06/17/23 06/18/23 06/18/23 22:59 06:59 14:59 Intake Total 369.5 / 557.75 Output Total 200 / 200 Balance 169.5 / 357.75 Weight last 48 hrs Weight 61.235 kg Physical Exam 2 Narrative: General exam no distress Neck is supple no lymphadenopathy or megaly Cardiovascular regular rate and rhythm without murmur Lungs clear Abdomen is soft Extremities no cyanosis clubbing or edema Data 06/18/23 03:46 06/18/23 03:46 A&P Assessment and plan (1) NSTEMI (non-ST elevated myocardial infarction): Significant increase in troponin, consistent with non-ST elevation myocardial infarction Heparin continued currently, oral anticoagulant on hold Cardiology consult appreciated Echo limited demonstrated EF of 33%, 1/4 diastolic dysfunction with slight decline in EF since last echo EKG was concerning for ST depression on admission, concern for ischemia Continue statin, aspirin, Plavix, beta-lexy Currently on a nitroglycerin drip. Depending on cardiology plans may consider weaning this off Previous CABG/procedures Defer possibility of indication of LifeVest to cardiology CBC, CMP, magnesium level daily (2) Congestive heart failure: Continue diuresis with Lasix 40 mg IV every 24 hours. She appears compensated currently Qualifiers: Heart failure chronicity: chronic Heart failure type: combined systolic and diastolic Qualified Code(s): I50.42 - Chronic combined systolic (congestive) and diastolic (congestive) heart failure (3) Pulmonary embolism: Has history of pulmonary embolism on anticoagulant. Holding this as procedure may be indicated. Currently on heparin IV Qualifiers: Pulmonary embolism type: multiple subsegmental (without acute cor pulmonale) Qualified Code(s): I26.94 - Multiple subsegmental pulmonary emboli without acute cor pulmonale Plan Chronic kidney disease. Appears at better than baseline currently with creatinine of 1.8 History of hypothyroidism. TSH, free T4 and free T3 normal on methimazole Hypertension. Increase Norvasc to 5 mg daily Other medical problems as noted in past medical history AND Heparin will suffice for DVT prophylaxis Attestations 2 Medical Necessity Statement*: Needs continued hospitalization for evaluation of ischemic heart disease, with non-ST elevation myocardial infarction Diagnoses NSTEMI (non-ST elevated myocardial infarction) I21.4 Chronic combined systolic and diastolic congestive heart failure I50.42 Heart failure chronicity: chronic Heart failure type: combined systolic and diastolic Multiple subsegmental pulmonary emboli without acute cor pulmonale I26.94 Pulmonary embolism type: multiple subsegmental (without acute cor pulmonale) Time Spent (min) 34
[2023-06-18] MEDS: budesonide 0.5 mg/2 mL Neb INHALATION ×2 (08:50→20:06)
[2023-06-18] MEDS: aspirin 81 mg EC Tablet PO (09:00)
[2023-06-18] MEDS: hyDRALAzine 50 mg Tablet PO ×3 (09:01→20:43)
[2023-06-18] MEDS: insulin lispro 100 unit/1 mL SUBCUT ×3 (09:01→21:32)
[2023-06-18] MEDS: isosorbide mononitrate ER 60 mg Tablet PO ×2 (09:01→17:31)
[2023-06-18] MEDS: methIMAzole 5 MG Tablet PO (09:01)
[2023-06-18] MEDS: pantoprazole DR 40 mg Tablet PO (09:01)
[2023-06-18] MEDS: clopidogrel 75 mg Tablet PO (09:01)
[2023-06-18] MEDS: metoprolol succinate ER (24 HR) 50 mg Tablet PO (09:01)
--- NOTE | 2023-06-18 09:18 | PC.CHAP ---
Pastoral Care Encounter/Spiritual Assessment Type of Contact [] Declined coin box inspector visit [] Patient/Family/Request visit [] Outpatient visit [] Follow-up visit [] Physician referral [] Code/Alert [x] Routine visit [] Staff referral [] Actively dying [] Patient sleeping [] Family support [] [] Out of room [] Palliative care [] [] Receiving care in room [] Pre-surgical visit [] Trauma [] Long length of stay [] ICU visit [] Other: Relational/Emotional Strength [x] Patient feels connected with others/family/visitors/staff [] Distress [] Loneliness/isolation [] Abandonment Spirituality of Patient [x] Person of [place]in [x] Attends Rastafarian of their [place] [x] Believes in Prayer [x] Reads Bible or Mandaen materials [] There are Spiritual issues to be addressed Contact Lens Molder Interventions [x] Prayer [x] Active listening [] Non-anxious presence [x] Spiritual/emotional support [] Crisis/trauma care [] Spiritual counseling [] Bereavement support [] Provided bereavement packet [] Provided Bible/devotional materials [] Provided toy/stuffed animal, coloring book to patient or family member [] Provided Communion [] Anointing/[place] [] Salvation [x] Completed spiritual assessment [] Other: Impact on Illness or Injury [] Angry [] Fearful [] Anxious [] Often cries [] Exhaustion [] Unable to work [] Unable to attend christian [] Unable to walk/stand [] Unable to read [] Unable to drive [] Unable to eat/drink [] Unable to sleep [] Unable to be with family [] Patient intubated [] Other: Summary Time spent with patient 10 min
--- NOTE | 2023-06-18 10:15 | XACV_ITS ---
Exam Room: [facility] Ht: 152 cm Wt: 61 kg BSA: 1.63 m2 Gender: Female : 1950 Any Known Allergies: Other Exam Priority: Routine Procedure(s): Procedure Description: Diagnostic procedure Procedure Description: LOVETT Graft Catheterization Procedure Description: Coronary Angiography Diagnostic Cath Status: Urgent Diagnostic Findings * INDICATION: NSTEMI. * Left Main is short, patent. * Circumflex has patent prior stent. * Right Coronary Artery not injected as is known occluded. * Mid Left Anterior Descending: chronic total occlusion, EMILY: 0 flow. * Bypass grafts: LOVETT to LAD is patent. SVG grafts to RCA and OM are occluded. Subclavian artery has 40-50% stenosis.. * Coronary angiography shows right dominance. Conclusions 1. Severe lime coronary artery disease. Patent LOVETT to LAD and lime Left circumflex artery. 2. Patient has prior CABG. Recommendations * Aggressive medical therapy. * Outpatient cardiology follow up in 2 weeks. Interventional RX Recommendation: medical therapy and/or counseling Diagnostic RX Recommendation: medical therapy and/or counseling Pressures Phase:Rest AO : 166 / 78 ( 104 ) @ 11:14:00 AM 169 / 69 ( 100 ) @ 11:19:00 AM 132 / 65 ( 93 ) @ 11:28:00 AM 147 / 63 ( 97 ) @ 11:30:00 AM 168 / 56 ( 96 ) @ 11:32:00 AM 169 / 55 ( 96 ) @ 11:32:00 AM LV : 180 / 1 / 15 @ 11:32:00 AM 179 / 1 / 15 @ 11:32:00 AM Valves Phase:DefaultPhase AV : 11.0 @ 11:37:28 AM 11.0 @ 11:37:28 AM AV Mean Gradient: 12.0 @ 11:37:28 AM 12.0 @ 11:37:28 AM Clinical Evaluation EBL: 5mL-10mL Procedural Details Procedure Consent Obtained. Admit Source: In Patient. Pre-Procedure Time Out. Identified patient by full name and date of as verbalized by the patient/guarantor. Does the consent match the physician's order: Yes. Accurate & Complete Informed Consent: Yes. Inpatient/Outpatient History & Physical on Chart: Yes. If H&P is completed, is and addenduem needed: No; If yes, is the addendum complete: N/A. Visualize and Verify Site with Patient/Guarantor: N/A. Relevant Radiology Images available: N/A. The risks, benefits, and alternatives of sedation and/or procedure were discussed by physician. The patient agrees to continue. Procedure started. [facility] Clinical Fraility Score: 4: Vulnerable. 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 Chest Pain Symptom Assessment: Typical Angina Symptoms. Correct patient, site and procedure confirmed by cath team. Correct patient, site and procedure confirmed by cath team. Current diagnosis: NSTEMI. PERRLA. Strong, equal hand bleach packer bilaterally. Lungs clear x 5 lobes. IV Site on Arrival: 20 gauge in the right forearm. IV Site on Arrival: 20 gauge in the left anticubital. IV Fluids: 0.9% NaCl at 75ml/hr. 0 mL infused prior to corn lab technician. Pre Procedural Pulses: bilateral radial was 2+. Pre Procedural Pulses: bilateral posterior tibial was 2+. Pre Procedural Pulses: bilateral dorsalis pedis was 2+. Oxygen started at 2liters/min via nasal canula. bilateral groins was prepped with chloroprep then draped in the usual sterile fashion. Baseline sample Acquired. HR: 82 BPM. Physician notified. Physician arrived. Physician scrubbed in. Immediate Pre-Procedure Time Out. Correct Patient: Yes; Correct Procedure: Yes; Correct Site: Yes; Correct Patient Position: Yes; Correct Supplies: Yes; Dried Flammable Prep: Yes; Blood Products Available: No;. Lidocaine 1% infiltrated to the right groin. Arterial access obtained with micropuncture set. A 5 andorran JL4 catheter in over wire. Multiple views taken of left coronary artery. SVG to RCA and OM are known occluded. Grafts were not injected. Catheter removed over the standard wire. A 5 andorran JR4 catheter in over wire. View taken of right coronary artery, RCA occluded. Catheter redirected to left subclavian. LOVETT to LAD visualized. Glidewire advanced through catheter to left subclavian artery. Catheter pulled back into aorta , Pressure gradient obtained across subclavian artery. EDP Sample taken: LV 180/1,15; HR: 77 BPM; SpO2: 100%. Pullback taken: LV 179/1,15; AO 168/56(96); Mean: 12mmHg, Peak to Peak: 11mmHg, SEP: 22sec/min; HR: 75 BPM; SpO2: 100%. Catheter removed over the standard wire. A Right femoral angiogram was performed to determine safe placement of closure device. Physician scrubbed out. Post Procedure: Pulses reassessed and unchanged. PERRLA. Strong, equal hand bleach packer bilaterally. No VTE prophylaxis required. Medication's Wasted: Lidocaine 1% = 10 mL. Medication's Wasted: Other = Fentanyl 100mcg. Medication's Wasted: Heparin = 4000 unit. Total IV fluids: 50 mL. A Suture was successful obtaining hemostatsis at the Right Femoral artery insertion site. Post-op diagnosis: Patent LOVETT to LAD, Patent Circumflex artery. Complications: None. Estimated blood loss: 5mL-10mL. Responsiveness - Normal response to verbal stimuli; alert and oriented, PERRLA. Airway - Unaffected, no intervention required; spontaneous ventilation. Circulation: W/N/L, pulses unchanged. Nausea/Vomiting:No. Procedure completed. Patient transferred by bed to 1st floor. Vital chart was stopped. Access Site Site: Right Femoral artery Sheath Size: 6 Fr Hemostasis Method: Suture Hemostasis Success: Successful Procedure Medications Start: 11:06 AM Stop: 11:06 AM Medication: Versed Amount: 1 mg Route: I.V. Start: 11:18 AM Stop: 11:18 AM Medication: Versed Amount: 1 mg Route: I.V. I, the attending physician, have reviewed and verified all procedure medications. Yes, all medications given per verbal order History/Risk Factors Hypertension: Yes Dyslipidemia: Yes Peripheral Arterial Disease (PAD): Yes Myocardial Infarction ([place]): No Obesity: No Renal Disease: No Tobacco Use: Former Prior Interventions PCI: Yes CABG: Yes Valve Surgery: No Report Signatures Finalized by Tristin Godlstein MD on 07/01/2023 05:38 PM
[2023-06-18 10:42] LABS: Partial Thromboplastin Time 62.5 SECONDS (23.9-36.7)
--- NOTE | 2023-06-18 11:06 | W.PM.OPSUD ---
Surgery/Procedure H&P Update DATE OF PROCEDURE: June 18, 2023 DATE H&P PERFORMED: 06/17/23 H&P UPDATE INFORMATION: I have reviewed H&P completed within last 30 days, I have examined patient prior to procedure and No changes to prior documentation PREOP DIAGNOSIS: NSTEMI PRIMARY INDICATION FOR PROCEDURE: NSTEMI PLANNED PROCEDURE: Left heart cath with possible percutaneous coronary intervention PATIENT REASSESSED PRIOR TO SEDATION, WITH NO CHANGE NOTED: Yes PHYSICAL EXAM: alert, oriented x 3, clear to auscultation bilaterally and regular rate & rhythm AIRWAY EVAL/ANESTHESIA PLAN: normal airway, ASA III, Local Anesthesia, Risks, benefits & alternatives of sedation and/or procedure discussed and Patient agrees to continue as planned ADDITIONAL INFORMATION: Moderate sedation
[2023-06-18 11:07] LABS: Glucose Point of Care 288 mg/dL (70-110)
--- NOTE | 2023-06-18 11:18 | PC.SOCIAL ---
IMM Update pg 2 of IMM updated and reviewed w/ patient. Copy provided and copy dated, initialed and placed in chart.
[2023-06-18] MEDS: FUROsemide 10 mg/mL SDV 4mL 40 MG IVP (12:00)
--- NOTE | 2023-06-18 12:05 | P.PN_ITS ---
Subjective 2 Subjective: Patient had coronary angiogram today. Has patent LOVETT to LAD. Patent left circumflex artery. SVG graft to RCA, SVG graft to OM and [place] RCA are known occluded. There is a small to medium size diagonal artery which has subtotal occlusion. This is chronic and has not changed since angiogram from last year. She has moderate subclavian artery stenosis that is 40% and not significant. Vitals/I&O/Wt Last Vital Signs Temp 98.0 F 06/18/23 08:00 Pulse 81 06/18/23 08:57 Resp 20 H 06/18/23 08:50 BP 170/96 06/18/23 08:00 Pulse Ox 96 06/18/23 08:50 O2 Del Method Room Air 06/18/23 08:50 06/17/23 06/18/23 06/18/23 22:59 06:59 14:59 Intake Total 369.5 / 557.75 Output Total 200 / 200 Balance 169.5 / 357.75 Weight last 48 hrs Weight 135 lb Physical Exam 2 Narrative: GENERAL: Patient is alert, awake and oriented x3. [] NECK: No jugular vein distension. [] HEENT: No cyanosis. No icterus. No pallor. [] HEART: Regular S1 and S2. No murmur, rub or gallop. [] LUNGS: Clear to auscultate bilaterally. [] CENTRAL NERVOUS SYSTEM: Grossly nonfocal. [] EXTREMITIES: Lower extremities with no edema bilaterally. Data 06/18/23 03:46 06/18/23 03:46 A&P Assessment and plan (1) CHF exacerbation: Qualifiers: Heart failure type: unspecified Qualified Code(s): I50.9 - Heart failure, unspecified (2) Hypertension, uncontrolled: (3) Pulmonary embolism: Qualifiers: Pulmonary embolism type: multiple subsegmental (without acute cor pulmonale) Qualified Code(s): I26.94 - Multiple subsegmental pulmonary emboli without acute cor pulmonale (4) Hypertensive emergency: (5) Troponin level elevated: Plan Given unchanged coronary angiogram findings from before, her troponin elevation and chest pain secondary to hypertensive emergency. Her blood pressure was over 200 mmHg at admission. Will recommend uptitrating amlodipine to 10 mg, hydralazine to 100 mg 3 times daily and metoprolol to 100 mg. Medication compliance emphasized. She needs close follow-up as outpatient. Low-sodium diet recommended She has femoral sheath, that will be pulled later today. If no hematoma, resume Eliquis at 8 PM (4-6 hours post sheath pull). Hold heparin gtt ECHO shows similar cardiac function as before Continue plavix Hold diuresis for today Monitor renal function today Thank you for involving us with care of this patient. We will continue to follow. Please call with questions. Attestations 2 Medical Necessity Statement*: Care expected to cross 2 midnights. Coding Level of Care Code Acute Code for Chg Fwd Diagnoses CHF exacerbation I50.9 Heart failure type: unspecified Hypertension, uncontrolled I10 Multiple subsegmental pulmonary emboli without acute cor pulmonale I26.94 Pulmonary embolism type: multiple subsegmental (without acute cor pulmonale) Hypertensive emergency I16.1 Troponin level elevated R79.89
--- NOTE | 2023-06-18 12:08 | PC.NURSE ---
Patient arrived back from cathlab approx 12:00pm. label pinker staff at bedside, nurse verified sheath placement. No hematoma or oozing present. She is sutured in to right groin connected to pressure bag. Ptt was ordered for 12:15. Nurse will remove sheath per protocol. Patient is aware of activity restrictions. Nurse will monitor Q15m.
[2023-06-18 13:30] LABS: Partial Thromboplastin Time 25.4 SECONDS (23.9-36.7)
[2023-06-18 14:32] LABS: Glucose Point of Care 173 mg/dL (70-110)
[2023-06-18 17:10] LABS: Glucose Point of Care 182 mg/dL (70-110)
[2023-06-18 18:25] LABS: Partial Thromboplastin Time 30.3 SECONDS (23.9-36.7)
[2023-06-18] MEDS: venlafaxine ER (24HR) 150 mg Capsule PO (20:42)
[2023-06-18] MEDS: atorvastatin 40 mg Tablet PO (20:43)
[2023-06-18] MEDS: amlodipine 10 mg Tablet PO (20:43)
[2023-06-18] MEDS: ALPRAZolam 0.5 mg Tablet 0.25 MG PO (20:49)
[2023-06-18 21:14] LABS: Glucose Point of Care 327 mg/dL (70-110)
[2023-06-19] VITALS (10 sets, daily range): BP systolic 142–168; BP diastolic 54–79; PULSE 69–83; RESP 16–26; TEMP 36.6–36.9; O2SAT 96–100
[2023-06-19] MEDS: ipratropium-albuterol 3 mL Neb INHALATION ×3 (02:41→13:40)
[2023-06-19 03:24] LABS: Basophils % 0.4 %; Eosinophils # 0.1 10^3/uL (0.0-0.8); Eosinophils % 1.5 %; Hematocrit 39.5 % (36-47); Lymphocytes # 1.8 10^3/uL (0.8-4.8); Lymphocytes % 21.8 %; Mean Corpuscular HGB Conc 30.6 g/dL (30-55); Mean Corpuscular Hemoglobin 25.4 pg (27-33); Mean Platelet Volume 10.5 fL (7.4-10.4); Monocytes # 0.6 10^3/uL (0.2-0.9); Monocytes % 7.6 %; Neutrophils # 5.79 10^3/uL (1.8-7.7); Neutrophils % 68.5 %; Nucleated Red Blood Cells % 0 %; Platelet Count 273 10^3/cmm (157-399); Red Blood Count 4.76 10^6/uL (3.85-5.65); Red Cell Distribution Width 16.8 % (12.1-15.1); White Blood Count 8.45 10^3/uL (3.29-11.43)
[2023-06-19 03:47] LABS: Alanine Aminotransferase 7 U/L (0-33); Albumin Level 2.9 g/dL (3.5-5.2); Alkaline Phosphatase 109 U/L (35-105); Anion Gap 14.3 (5-19); Aspartate Amino Transferase 16 U/L (0-32); Blood Urea Nitrogen 32 mg/dL (8-23); Calcium 9.3 mg/dL (8.5-10.5); Carbon Dioxide 25 mmol/L (22-29); Chloride 109 mmol/L (98-107); Globulin 3.2 g/dL (1.3-4.6); Glucose 69 mg/dL (65-115); Magnesium 2.2 mg/dL (1.7-2.3); Osmolality Calculated 305 mOsm/kg (285-295); Potassium 3.3 mmol/L (3.5-5.1); Sodium 145 mmol/L (136-145); Total Bilirubin 0.2 mg/dL (0.15-1.2); Total Protein 6.1 g/dL (6.6-8.7)
[2023-06-19 06:31] LABS: Glucose Point of Care 145 mg/dL (70-110)
[2023-06-19] MEDS: insulin lispro 100 unit/1 mL SUBCUT ×2 (08:11→12:41)
[2023-06-19] MEDS: metoprolol succinate ER (24 HR) 50 mg Tablet 100 MG PO (08:12)
[2023-06-19] MEDS: apixaban 5 mg Tablet 2.5 MG PO (08:12)
[2023-06-19] MEDS: pantoprazole DR 40 mg Tablet PO (08:13)
[2023-06-19] MEDS: isosorbide mononitrate ER 60 mg Tablet PO (08:13)
[2023-06-19] MEDS: methIMAzole 5 MG Tablet PO (08:13)
[2023-06-19] MEDS: hyDRALAzine 50 mg Tablet PO ×2 (08:13→14:43)
[2023-06-19] MEDS: clopidogrel 75 mg Tablet PO (08:13)
[2023-06-19] MEDS: budesonide 0.5 mg/2 mL Neb INHALATION (09:13)
--- NOTE | 2023-06-19 09:14 | P.PN_ITS ---
Subjective 2 Subjective: Patient is alert awake does not have any chest pain or shortness of breath. Blood pressure is in proved 151/80 heart rate in the 70s sinus rhythm. Vitals/I&O/Wt Last Vital Signs Temp 97.9 F 06/19/23 07:17 Pulse 83 06/19/23 07:17 Resp 26 H 06/19/23 07:17 BP 151/79 06/19/23 07:17 Pulse Ox 97 06/19/23 07:17 O2 Del Method Room Air 06/19/23 07:17 06/18/23 06/19/23 06/19/23 22:59 06:59 14:59 Intake Total 1530.00 / 1530.00 500 / 2030.00 240 / 240 Output Total 300 / 300 750 / 1050 Balance 1230.00 / 1230.00 -250 / 980.00 240 / 240 Physical Exam 2 Narrative: GENERAL: Patient is alert, awake and oriented x3. [] NECK: No jugular vein distension. [] HEENT: No cyanosis. No icterus. No pallor. [] HEART: Regular S1 and S2. No murmur, rub or gallop. [] LUNGS: Clear to auscultate bilaterally. [] CENTRAL NERVOUS SYSTEM: Grossly nonfocal. [] EXTREMITIES: Lower extremities with no edema bilaterally. Data 06/19/23 02:53 06/19/23 02:53 A&P Assessment and plan (1) HTN (hypertension): Improved. We will titrate the medication for better blood pressure control. Replace her potassium which was 3.3. Creatinine remained stable. Patient can be discharged home later on today to follow-up with Dr. Goldstein in 1 week. Qualifiers: Hypertension type: primary hypertension Qualified Code(s): I10 - Essential (primary) hypertension (2) Atherosclerotic heart disease of [place] coronary artery with other forms of angina pectoris: Status post CABG with cardiac cath yesterday showed patent LOVETT to LAD and vein graft to OM. Patient to continue medical therapy and risk factor modification. (3) Dyslipidemia: LDL goal is less than 70 patient on statin. Attestations 2 Medical Necessity Statement*: Patient be discharged home today Coding Level of Care Code 22098 Diagnoses Primary hypertension I10 Hypertension type: primary hypertension Atherosclerotic heart disease of [place] coronary artery with other forms of angina pectoris I25.118 Dyslipidemia E78.5
[2023-06-19] MEDS: cloNIDine 0.1 mg Tablet PO (09:38)
[2023-06-19] MEDS: potassium chloride ER 20 mEq Tablet 40 MEQ PO (09:39)
--- NOTE | 2023-06-19 11:10 | PM.DCS ---
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 Most recently she was admitted here in April 2023 at which time she had NSTEMI, was recommended a coronary angiogram, however patient refused due to fear of landing on dialysis. She presents to the emergency room today complaining of midsternal chest pressure and shortness of breath. She has had slight cough with minimal expectoration recently without significant relief with inhalers. While in the emergency room she was noted to have some new ST depression and dynamic EKG changes which raise concern for NSTEMI and patient was started on heparin infusion. Patient was admitted to [facility] for NSTEMI, managed on heparin drip, show drip, cardiology consulted, EF of 33% on echo, EKG showing ST depressions, underwent coronary angiography:Has patent LOVETT to LAD. Patent left circumflex artery. SVG graft to RCA, SVG graft to OM and kake RCA are known occluded. There is a small to medium size diagonal artery which has subtotal occlusion. This is chronic and has not changed since angiogram from last year. She has moderate subclavian artery stenosis that is 40% and not significant. Thus medically managed continue her Plavix, Eliquis, statin, beta-lexy, follow-up with cardiology as outpatient Patient had hypertensive urgency throughout her hospitalization requiring titration of her blood pressure medication, likely a component to her NSTEMI, on discharge she will discharge on hydralazine 50 4 times daily, metoprolol 100 mg once daily, clonidine 0.1 twice daily, lisinopril 20 mg once daily, Norvasc 10 mg, Imdur 60 mg twice daily, she should see your primary care provider early next week for blood pressure check, continue blood pressure logs, if any chest pain, palpitations strokelike symptoms please call 911 Physical Exam Const: COMMON NORMALS: no acute distress and patient oriented x3 Resp: COMMON NORMALS: normal respiratory effort, No retractions, No use of accessory muscles and clear to auscultation bilaterally AUSCULTATION: clear to auscultation bilaterally Cardio: COMMON NORMALS: regular rate, regular rhythm, S1 normal heart sound present and S2 normal heart sound present RATE: regular rate RHYTHM: regular rhythm HEART SOUNDS: S1 normal heart sound present and S2 normal heart sound present GI: COMMON NORMALS: Normal to inspection, nondistended, normoactive bowel sounds present and non-tender Extremity: COMMON NORMALS: no pedal edema Neuro: COMMON NORMALS: patient oriented x3 Psych: COMMON NORMALS: mental status grossly normal Discharge Data Studies Completed and Pending Completed Studies During Hospitalization Category Date Time Status XR chest 1V portable [id number] Stat Exams 06/16/23 19:43 Completed CV. 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 Cardiomegaly. 2. Bilateral mid to lower lung field ground-glass airspace opacities reflecting alveolar edema and/or pneumonic infiltrates. 3. Sternotomy wires. Laboratory Results WBC 8.45 10^3/uL (3.29-11.43) 06/19/23 02:53 RBC 4.76 10^6/uL (3.85-5.65) 06/19/23 02:53 Hgb 12.10 g/dL (11.27-16.99) 06/19/23 02:53 Hct 39.5 % (36-47) 06/19/23 02:53 MCV 83.0 fl (85-98) L 06/19/23 02:53 MCH 25.4 pg (27-33) L 06/19/23 02:53 MCHC 30.6 g/dL (30-55) 06/19/23 02:53 RDW 16.8 % (12.1-15.1) H 06/19/23 02:53 Plt Count 273 10^3/cmm (157-399) 06/19/23 02:53 MPV 10.5 fL (7.4-10.4) H 06/19/23 02:53 Neut % (Auto) 68.5 % 06/19/23 02:53 Lymph % (Auto) 21.8 % 06/19/23 02:53 [place] % (Auto) 7.6 % 06/19/23 02:53 Eos % (Auto) 1.5 % 06/19/23 02:53 Baso % (Auto) 0.4 % 06/19/23 02:53 Neut # (Auto) 5.79 10^3/uL (1.8-7.7) 06/19/23 02:53 Lymph # (Auto) 1.8 10^3/uL (0.8-4.8) 06/19/23 02:53 [place] # (Auto) 0.6 10^3/uL (0.2-0.9) 06/19/23 02:53 Eos # (Auto) 0.1 10^3/uL (0.0-0.8) 06/19/23 02:53 Baso # (Auto) 0.0 10^3/uL (0.0-0.1) 06/19/23 02:53 Nucleated RBC % (auto) 0 % 06/19/23 02:53 Nucleated RBCs # 0.0 /100WBC 06/19/23 02:53 APTT 30.3 SECONDS (23.9-36.7) 06/18/23 18:00 Sodium 145 mmol/L (136-145) 06/19/23 02:53 Potassium 3.3 mmol/L (3.5-5.1) L 06/19/23 02:53 Chloride 109 mmol/L (98-107) H 06/19/23 02:53 Carbon Dioxide 25 mmol/L (22-29) 06/19/23 02:53 Anion Gap 14.3 (5-19) 06/19/23 02:53 BUN 32 mg/dL (8-23) H 06/19/23 02:53 Creatinine 1.9 mg/dL (0.5-0.9) H 06/19/23 02:53 GFR Calculation Not Reportable 06/19/23 02:53 Glucose 69 mg/dL (65-115) 06/19/23 02:53 POC Glucose 145 mg/dL (70-110) H 06/19/23 06:23 Calculated Osmolality 305 mOsm/kg (285-295) H 06/19/23 02:53 Calcium 9.3 mg/dL (8.5-10.5) 06/19/23 02:53 Magnesium 2.2 mg/dL (1.7-2.3) 06/19/23 02:53 Total Bilirubin 0.2 mg/dL (0.15-1.2) 06/19/23 02:53 AST 16 U/L (0-32) 06/19/23 02:53 ALT 7 U/L (0-33) 06/19/23 02:53 Alkaline Phosphatase 109 U/L (35-105) H 06/19/23 02:53 Troponin T Baseline 56 ng/L (0-10) H 06/16/23 20:27 Troponin T 120 Minute 59.50 ng/L (0-10) H 06/17/23 00:40 Delta Troponin T 3.50 ABS# (0-10) 06/17/23 00:40 Troponin T Hi Sens 6Hr 133.9 ng/L (0-10) H 06/17/23 05:07 Troponin T Hi Sens 6Hr Delta 77.9 ng/L (0-12) H* 06/17/23 05:07 NT-Pro-B Natriuret Pep 22745 pg/mL (0-125) H 06/16/23 20:27 Total Protein 6.1 g/dL (6.6-8.7) L 06/19/23 02:53 Albumin 2.9 g/dL (3.5-5.2) L 06/19/23 02:53 Globulin 3.2 g/dL (1.3-4.6) 06/19/23 02:53 TSH 2.58 uIU/mL (0.27-4.20) 06/16/23 20:27 Free T4 1.27 ng/dL (0.82-1.77) 06/16/23 20:27 Free T3 2.7 PG/ML (2.0-4.4) 06/16/23 20:27 Influenza Type A Ag negative (Negative) 06/16/23 20:03 Influenza Type B Ag negative (Negative) 06/16/23 20:03 SARS-CoV-2 Ag (Rapid) negative (Negative) 06/16/23 20:03 Vitals Last Vital Signs Temp 97.9 F 06/19/23 07:17 Pulse 77 06/19/23 09:17 Resp 16 06/19/23 09:13 BP 151/79 06/19/23 09:38 Pulse Ox 96 06/19/23 09:13 O2 Del Method Room Air 06/19/23 09:13 Discharge Plan Discharge Patient Disposition: Home Condition: Stable Prescriptions: New amlodipine 10 mg Tablet 10 mg PO BEDTIME 30 Days Qty: 30 0RF clonidine HCl 0.1 mg Tablet 0.1 mg PO BID 30 Days Qty: 30 0RF lisinopril 20 mg tablet 20 mg PO DAILY 30 Days Qty: 30 0RF metoprolol succinate 50 mg Tablet Extended Release 24 Hr 100 mg PO DAILY 30 Days Qty: 30 0RF Continued Anoro Ellipta 62.5-25 mcg/actuation blister with device 1 inh INHALATION DAILY isosorbide mononitrate 60 mg tablet extended release 24 hr 60 mg PO BID venlafaxine [Effexor XR] 150 mg capsule,extended release 24hr See Rx Instructions .ROUTE .COMPLEX Rx Instructions: TAKE 150 MG BY MOUTH AT BEDTIME ALONG WITH 75 MG cholecalciferol (vitamin D3) 125 mcg (5,000 unit) capsule 125 mcg PO Q7D Jardiance 10 mg tablet 10 mg PO DAILY apixaban 2.5 mg tablet 2.5 mg PO BID Qty: 180 2RF methimazole 5 mg tablet 5 mg PO DAILY Qty: 30 3RF (DME) Accu-Chek Ana M Plus test strp Strip See Rx Instructions .ROUTE .MEDSUPPLY Qty: 120 3RF Rx Instructions: check blood glucose four times a day tizanidine 4 mg tablet 4 mg PO BEDTIME nitroglycerin [Nitrostat] 0.4 mg Tablet, Sublingual 0.4 mg SUBLINGUAL Q5M PRN (Reason: Chest Pain) Rx Instructions: do not exceed 3 doses per episode insulin lispro [Humalog KwikPen Insulin] 100 unit/mL Insulin Pen See Rx Instructions .ROUTE .COMPLEX Rx Instructions: sliding scale tid prn blood sugar acetaminophen 500 mg Tablet 500 mg PO BEDTIME albuterol sulfate [Ventolin HFA] 90 mcg/actuation Hfa Aerosol Inhaler 2 puff INHALATION QID PRN (Reason: Shortness Of Breath) Levemir FlexPen 100 unit/mL (3 mL) insulin pen 11 unit SUBCUT DAILY PRN (Reason: blood sugar) calcitriol 0.25 mcg capsule See Rx Instructions .ROUTE .COMPLEX Rx Instructions: TAKE 0.25 mcg orally 3 TIMES WEEKLY ON WEDNESDAY, WEDNESDAY, AND WEDNESDAY IN THE MORNING. clopidogrel [Plavix] 75 mg tablet 75 mg PO DAILY Qty: 60 0RF atorvastatin 40 mg tablet 40 mg PO BEDTIME venlafaxine 75 mg capsule,extended release 24hr See Rx Instructions .ROUTE .COMPLEX Rx Instructions: TAKE 75 MG BY MOUTH AT BEDTIME ALONG WITH 150 MG acitretin 10 mg capsule 10 mg PO QAM Changed hydralazine 50 mg tablet 50 mg PO QID 30 Days Qty: 120 0RF Held potassium chloride 10 mEq tablet extended release 10 meq PO BID Qty: 180 1RF Hold Instructions: Resume on 06/20/23. furosemide 40 mg Tablet See Rx Instructions .ROUTE .COMPLEX Hold Instructions: Resume on 06/20/23. Rx Instructions: TAKE 1 TABLET IN THE MORNING AND 1/2 TABLET IN THE EVENING. Discontinued nifedipine 90 mg tablet extended release 90 mg PO DAILY amlodipine 5 mg tablet 2.5 mg PO BEDTIME metoprolol succinate 50 mg tablet extended release 24 hr 50 mg PO QAM Discharge Orders: Discharge Order (Routine); Ordered 06/19/23 Ordered By: Rod Batista Referrals: Tristin Goldstein M.D [Physician] - (Your Dr. Goldstein follow up appointment will be scheduled during your Katherin Win appointment. Thank you.) Katherin Win FNP [Nurse Practitioner] - 07/05/23 1:30 pm Jocelyne Kirby PA [Primary Care Provider] - 06/23/23 1:00 pm Patient Instructions: Heart Failure (DC), Hypertensive Crisis (DC), Coronary Angioplasty (DC), CHF Stoplight, Opioid Safety, Post Angiogram Home Care Instructions, Post Heart Attack Stoplight Activity Restrictions/Additional Instructions: - See primary care provider on next week for blood pressure check, ? Check blood pressure twice daily, record and blood pressure log see primary care provider ? 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
[2023-06-19] MEDS: lisinopril 20 mg Tablet PO (11:16)
[2023-06-19 11:45] LABS: Glucose Point of Care 237 mg/dL (70-110)
--- NOTE | 2023-06-19 14:50 | PC.NURSE ---
discharge instructions given and explained.pt verb understanding of instructions.discharged to exit via w/c at this time.cousin to drive pt home.
== END 2023-06-19 14:51 | disposition home or self-care (01) | DRG 280 ==
LOC: ER 22:35 → ER IP 06-17 02:18 → CSU 06-17 11:31
PROVIDERS: Internal Medicine; Internal Medicine Cardiovascular Disease; Admitting Provider Student in an Organized Health Care Education/Training Program; Emergency Provider Internal Medicine; PCP Physician Assistant; Visit Provider Family Medicine
PROC: B211YZZ Fluoroscopy of Multiple Coronary Arteries using Other Contrast (ICD-10-PCS; principal; 2023-06-18 11:00)
DX: I21.4 Non-ST elevation (NSTEMI) myocardial infarction (principal); I50.43 Acute on chronic combined systolic (congestive) and diastolic (congestive) heart failure; I25.810 Atherosclerosis of coronary artery bypass graft(s) without angina pectoris; I13.0 Hypertensive heart and chronic kidney disease with heart failure and stage 1 through stage 4 chronic kidney disease, or unspecified chronic kidney disease; I25.10 Atherosclerotic heart disease of native coronary artery without angina pectoris; N18.31 Chronic kidney disease, stage 3a; E11.22 Type 2 diabetes mellitus with diabetic chronic kidney disease; G47.00 Insomnia, unspecified; J44.9 Chronic obstructive pulmonary disease, unspecified; E03.9 Hypothyroidism, unspecified; I25.5 Ischemic cardiomyopathy; E78.5 Hyperlipidemia, unspecified; E11.51 Type 2 diabetes mellitus with diabetic peripheral angiopathy without gangrene; F41.9 Anxiety disorder, unspecified; I25.2 Old myocardial infarction; Z79.02 Long term (current) use of antithrombotics/antiplatelets; Z79.4 Long term (current) use of insulin; Z85.828 Personal history of other malignant neoplasm of skin; Z86.73 Personal history of transient ischemic attack (TIA), and cerebral infarction without residual deficits; Z86.16 Personal history of COVID-19; Z87.01 Personal history of pneumonia (recurrent); Z86.711 Personal history of pulmonary embolism; Z79.84 Long term (current) use of oral hypoglycemic drugs; Z87.891 Personal history of nicotine dependence; Z11.52 Encounter for screening for COVID-19; Z95.820 Peripheral vascular angioplasty status with implants and grafts
CPT/HCPCS: 36415; 36416; 71045; 80048; 80053; 82962; 83735; 83880; 84439; 84443; 84481; 84484; 85025; 85049; 85730; 87426; 87804; 93005; 93308; 93459; 93925; 94640; 96365; 96367; 96372; 96375; 96376; 99152; 99153; 99285; C1769; C1887; C1894; J0360; J1644; J1815; J1940; J2250; J3010; J3490; J7030; J7613; J7626; Q9967

== ENCOUNTER → 2023-07-05 13:22 | Outpatient (BNVA) | payer MEDICARE, MEDICAID, SELFPAY | PROVIDERS: PCP Physician Assistant; Visit Provider Nurse Practitioner Family | DX: I13.0 Hypertensive heart and chronic kidney disease with heart failure and stage 1 through stage 4 chronic kidney disease, or unspecified chronic kidney disease (principal); E11.22 Type 2 diabetes mellitus with diabetic chronic kidney disease; N18.9 Chronic kidney disease, unspecified; I50.9 Heart failure, unspecified; Z87.891 Personal history of nicotine dependence; Z79.4 Long term (current) use of insulin; I25.10 Atherosclerotic heart disease of native coronary artery without angina pectoris | CPT/HCPCS: 99214 ==

== ENCOUNTER → 2023-08-05 10:21 | Outpatient (BNVA) | payer MEDICARE, MEDICAID, SELFPAY | PROVIDERS: PCP Physician Assistant; Visit Provider Nurse Practitioner Family | DX: I13.0 Hypertensive heart and chronic kidney disease with heart failure and stage 1 through stage 4 chronic kidney disease, or unspecified chronic kidney disease (principal); I50.42 Chronic combined systolic (congestive) and diastolic (congestive) heart failure; E11.22 Type 2 diabetes mellitus with diabetic chronic kidney disease; N18.9 Chronic kidney disease, unspecified; Z87.891 Personal history of nicotine dependence; Z79.4 Long term (current) use of insulin; I25.10 Atherosclerotic heart disease of native coronary artery without angina pectoris | CPT/HCPCS: 99214 ==

== ENCOUNTER 2023-09-03 08:31 | Inpatient (IN) | payer MEDICARE, MEDICAID, SELFPAY ==
[2023-09-03] VITALS (93 sets, daily range): BP systolic 95–220; BP diastolic 44–108; PULSE 66–101; RESP 12–30; TEMP 36.4–36.9; O2SAT 86–100
--- NOTE | 2023-09-03 08:34 | XR_ITS ---
WS: [id number] Exam: XR chest 1V [id number] Date/Time of Exam: 09/03/2023 8:34 AM Reason For Exam: shortness of breath Comparison 06/16/2023. The heart is enlarged there is increased pulmonary vascularity noted. Prominent septal lines in the l ateral lung zones probably indicates some degree of mild cardiac decompensation. No focal infiltrates or pleural effusions are seen. The mediastinum is normal in contour. Signs of previous CABG surgery. IMPRESSION: 1. Cardiac enlargement with signs of mild pulmonary vascular congestion suggesting low-grade CHF.
--- NOTE | 2023-09-03 08:34 | ECG_ITS ---
[facility] Test Date: 2023-09-03 Pat Name: Romi Yuan Department: Room: Gender: Female Supervisor Stripping: : 1950 Requested By: Anamika Mo Order Number: [id number] Tessa MD: Tristin Goldstein M.D. Measurements Intervals [place] Rate: 91 P: 0 KS: 0 QRS: -25 QRSD: 109 T: 110 QT: 339 QTc: 418 Interpretive Statements ATRIAL FIBRILLATION BORDERLINE LEFT AXIS DEVIATION [QRS AXIS < -20] ST DEVIATION AND MODERATE T-WAVE ABNORMALITY, CONSIDER LATERAL ISCHEMIA [-0.1+ mV T-WAVE IN I/aVL/V5/V6] Compared to ECG 06/17/2023 06:56:03 T-wave abnormality now present Possible ischemia now present Sinus rhythm no longer present Left ventricular hypertrophy no longer present ST (T wave) deviation no longer present Electronically Signed On 09-03-2023 12:32:05 CDT by Tristin Goldstein M.D. [id number]
[2023-09-03 08:40] LABS: ABG PCO2 54.9 mmHg (35-45); ABG PH Result 7.14 (7.35-7.45); Base Excess ABG -10.4 mmol/L (-2.0-2.0); Blood Gas Allen Test Pos; Blood Gas Operator Identificat WALCI; Blood Gas Sample Site Radial, right; Blood Gas Sample Type Arterial; Carboxyhemoglobin 3.9 %THgb (0.4-20.1); HCO3 ABG 18.7 mmol/L (22-26); HGB O2 Sat 90.9 % (95-100); Ionized Calcium Level - ABG 1.2 mmol/L (1.1-1.4); Methemoglobin < 0.0 % (0.4-1.5); Oxygen Device SIMPLE MASK; Oxygen Saturation ABG 93.6; PO2 ABG 82.9 mmHg (80.0-100.0); Potassium Level - ABG 5.2 mmol/L (3.5-5.0); Total Hemoglobin 11.4 g/dL (12-16)
[2023-09-03 08:50] LABS: Basophils # 0.1 10^3/uL (0.0-0.1); Basophils % 0.3 %; Eosinophils # 0.5 10^3/uL (0.0-0.8); Eosinophils % 1.8 %; Hematocrit 41.5 % (36-47); Lymphocytes # 12.8 10^3/uL (0.8-4.8); Lymphocytes % 50.4 %; Mean Corpuscular HGB Conc 29.4 g/dL (30-55); Mean Corpuscular Hemoglobin 25.5 pg (27-33); Mean Corpuscular Volume 86.8 fl (85-98); Mean Platelet Volume 10.7 fL (7.4-10.4); Monocytes # 1.3 10^3/uL (0.2-0.9); Monocytes % 4.9 %; Neutrophils # 10.69 10^3/uL (1.8-7.7); Neutrophils % 42.3 %; Nucleated Red Blood Cells % 0 %; Platelet Count 377 10^3/cmm (157-399); Red Blood Count 4.78 10^6/uL (3.85-5.65); Red Cell Distribution Width 16.3 % (12.1-15.1)
[2023-09-03] MEDS: etomidate 2 mg/mL INJ SDV 10 mL 20 MG IVP (08:52)
[2023-09-03] MEDS: succinylcholine 20 mg/mL SDV 10mL 100 MG IVP (08:52)
--- NOTE | 2023-09-03 08:52 | PC.NURSE ---
intubation 100mg succinycholine, 20mg etomidate 0855 tube placement 24@ teeth
--- NOTE | 2023-09-03 08:59 | W.ED.SOB ---
HPI - SOB/Dyspnea General: Chief Complaint: Shortness of Breath/Dyspnea Stated Complaint: RESPIRATORY DISTRESS Time Seen by Provider: 09/03/23 08:34 History of Present Illness: HPI Narrative: 72-year-old female with a history of hypertension, congestive heart failure, insulin-dependent diabetes, COPD (it does not appear that she is on home oxygen), peripheral vascular disease with history of AAA repair and iliac stents, coronary artery disease with a history of CABG and coronary stents and she is on Plavix and Eliquis who presents to the emergency room in respiratory distress. Unable to obtain much history. She does answer a couple of questions but is unable to answer many secondary to her respiratory distress. She does tell me she does not smoke. She received 6 mg of dexamethasone on the ambulance and 2 breathing treatments. ABG was done immediately upon arrival and she was intubated emergently secondary to the results of this. She was quite hypertensive on presentation. Family arrives later and informs me she does have a history of pulmonary embolism and she thinks this is why she is on Eliquis. Review of Systems General: Reports: ROS unobtainable due to medical condition PFS ED PFSH: Medical History (Updated 09/03/23 @ 11:22 by Berto Fu MD) Diabetes mellitus PAD (peripheral artery disease) Dyslipidemia HTN (hypertension) NSTEMI (non-ST elevated myocardial infarction) Eczema CAD (coronary artery disease) Clostridioides difficile infection (07/2022) Insomnia CHF (congestive heart failure) Chronic kidney disease Hypertensive urgency Pneumonia due to COVID-19 virus (~06/2022) Colon polyps History of skin cancer Hyperthyroidism Graves disease History of CVA (cerebrovascular accident) COPD (chronic obstructive pulmonary disease) Anxiety Carotid arterial disease ASHD (arteriosclerotic heart disease) Surgical History Status post insertion of iliac artery stent History of coronary artery stent placement History of cardiac catheterization 06/25/2022 Left main artery: Short, patent. Left circumflex artery: Has patent stents, no significant stenosis. LAD:Occluded in the midsegment. RCA: Known occluded. Not injected. SVG to diagonal artery and SVG to RCA are known occluded. Not injected. LOVETT to LAD: Patent. Coronary anatomy unchanged compared to before. History of renal stent Hx of local excision of skin lesion (09/16/20) Left forearm x2 Status post colonoscopy (09/16/20) S/P hysterectomy with oophorectomy S/P cholecystectomy S/P CABG (coronary artery bypass graft) twice, last in 2004 History of endovascular stent graft for abdominal aortic aneurysm (AAA) S/P cataract surgery S/P skin and subcutaneous tissue surgery Family History Sister Mark's disease Sister No problems noted. Mother No problems noted. Other Anesthesia complication Social History Smoking and tobacco/nicotine status: former use of tobacco/nicotine Alcohol intake: current Alcohol intake frequency: holidays/special occasions only Substance/Drug Use: current Physical Exam Narrative: EXAM NARRATIVE: General: Patient is alert, but a.m. appears in severe distress. Skin: Warm, dry. Head: Normocephalic, atraumatic. Neck: Supple, trachea midline. Eye: Extraocular movements are intact. Ears, nose, mouth and throat: Dry mucosa . Cardiovascular: Regular, patient has some lower extremity mottling. Respiratory: Patient has severe increased work of breathing, retractions, tachypnea, scattered wheeze. Gastrointestinal: Soft, Nontender, Non distended, Normal bowel sounds. Musculoskeletal: Normal ROM, no deformity. Neurological: Alert, No focal neurological deficit observed. Psychiatric: Unable to assess Course Vital Signs: Vital signs: Vital Signs Temperature 98.4 F 09/03/23 08:31 Pulse Rate 89 09/03/23 11:45 Respiratory Rate 16 09/03/23 11:25 Blood Pressure 140/58 09/03/23 11:45 Pulse Oximetry 99 09/03/23 11:45 Oxygen Delivery Me thod Mechanical Ventil ation 09/03/23 09:22 Oxygen Flow Rate 6 09/03/23 08:50 Fraction of Inspir ed Oxygen 75 09/03/23 10:34 MDM - SOB/Dyspnea Medical Decision Making Differential diagnosis for patient with shortness of breath includes but is not limited to and based on the above HPI, review of systems and physical exam: Pneumonia. Bronchitis. Asthma or COPD with acute exacerbation. Acute coronary syndrome / [place]. Pulmonary embolism. Anxiety. Congestive heart failure. Viral infections including influenza and Covid-19. Atrial fibrillation. Anxiety. Pleural effusion. Pneumothorax. Also would have concern for diabetic ketoacidosis Workup: Lab work, chest X-ray and EKG ordered to evaluate, rule in and rule out above pathologies Lab Review: Laboratory results were reviewed and interpreted by myself the emergency room physician. Initial blood gas: 7.1 this is on a nonrebreather. Shows a glucose of 286. CBC: White count was 25.3. Hemoglobin is 12.2. Platelets are 377. Initial lactate is 6.8. Initial troponin is 58 proBNP is 57,000. Last measurement was around 49,000. Chest x-ray: I see no obvious new focal infiltrates, possibly some mild early failure/pulmonary edema. She has stable cardiomegaly. Sternotomy wires. This was reviewed and interpreted by myself the ER physician. Chest x-ray: ET tube was placed but it is a bit deep in the right mainstem. This was reviewed and interpreted by myself the ER physician. Chest x-ray ET tube adjustment: ET tube now appears appropriate This was reviewed and interpreted by myself the ER physician. Chest x-ray for CVL placement: Right internal jugular line is now in place and in the atrium. No infiltrate. No pneumothorax. No cardiomegaly. This was reviewed and interpreted by myself the ER physician. EKG: Time 8:38 AM rate 91 atrial fibrillation with controlled rate, No ST-T changes, no ectopy, This was reviewed and interpreted by myself the ER physician at 8:42 AM. Endotracheal intubation Time: 850am Confirmed: Patient, procedure, and site correct. Consent: , Emergent. Indication: Respiratory failure. Procedural sedation: Succinylcholine and etomidate . Monitoring: Cardiac, blood pressure, continuous pulse oximetry. Preparation: Pre oxygenated, Inline stabilization of cervical spine maintained, Ensured proper cuff inflation. Technique: Oral intubation: An 8 ET tube was inserted, glydescope, visualized cords and ett passing through cords. . Confirmation of tube placement: Bilateral chest rise, Positive color change indicated on end title CO2. Post procedure exam: Equal breath sounds. Complications: None. Performed by: Self. Total time: 10 minutes. Ultrasound guided Internal Jugular Central Line Procedure Note Time: 1115 INDICATION: Need for central venous access in emergent situation. Preformed by myself. Line: 7 mongolian triple lumen IJ CONSENT: The procedure was emergent, the patient was unable to provide consent, and a designee was not immediately available. PROCEDURE SUMMARY: handwash prior to starting sterile technique. A time out was performed. My hands were washed immediately prior to the procedure. I wore a surgical cap, mask with protective eyewear, full gown and sterile gloves throughout the procedure. The patient was placed in Trendelenburg position. RIGHT chest region was prepped using chlorhexidine scrub and draped in sterile fashion using a full drape and sterile probe cover and sterile gel employed. The medial and lateral heads of the sternocleidomastoid muscle were identified as was the carotid pulse. The Internal Jugular vein was identified using the ultrasound. Local anesthesia was not needed, patient intubated and sedated. Using real-time out of plane guidance, the introducer needle was inserted into the Internal Jugular vein under direct ultrasound visualization. Venous blood was withdrawn. The syringe was removed and a guidewire was advanced into the introducer needle. The guidewire was visualized in the Internal Jugular Vein by ultrasound. A small incision was made at the skin surface with a scalpel and the introducer needle was exchanged for a dilator over the guidewire. After appropriate dilation was obtained, the dilator was exchanged over the wire for a 17 mongolian central venous catheter. The wire was removed and the catheter was sutured in place A sterile sorbaview shield was placed over the catheter at the insertion site. The patient tolerated the procedure without any hemodynamic compromise. At time of procedure completion, all ports aspirated and flushed properly. Post-procedure chest x-ray is pending at this time. Estimated blood loss is 1cc. Reexamination: Patient is now intubated. Oxygen saturations are much better on the vent. She has been a bit difficult to sedate. She was initially quite hypertensive so propofol was used. This has been increased from 5 to 25/h and now she is borderline hypotensive. Family states she has anxiety and it appears she has been on benzodiazepines at home so adding Versed and Versed drip. Lab Data 09/03/23 08:30 09/03/23 08:30 Labs/Radiology: Laboratory Results WBC 25.30 10^3/uL (3.29-11.43) H 09/03/23 08:30 RBC 4.78 10^6/uL (3.85-5.65) 09/03/23 08:30 Hgb 12.20 g/dL (11.27-16.99) 09/03/23 08:30 Hct 41.5 % (36-47) 09/03/23 08:30 MCV 86.8 fl (85-98) 09/03/23 08:30 MCH 25.5 pg (27-33) L 09/03/23 08:30 MCHC 29.4 g/dL (30-55) L 09/03/23 08:30 RDW 16.3 % (12.1-15.1) H 09/03/23 08:30 Plt Count 377 10^3/cmm (157-399) 09/03/23 08:30 MPV 10.7 fL (7.4-10.4) H 09/03/23 08:30 Neut % (Auto) 42.3 % 09/03/23 08:30 Lymph % (Auto) 50.4 % 09/03/23 08:30 [place] % (Auto) 4.9 % 09/03/23 08:30 Eos % (Auto) 1.8 % 09/03/23 08:30 Baso % (Auto) 0.3 % 09/03/23 08:30 Neut # (Auto) 10.69 10^3/uL (1.8-7.7) H 09/03/23 08:30 Lymph # (Auto) 12.8 10^3/uL (0.8-4.8) H 09/03/23 08:30 [place] # (Auto) 1.3 10^3/uL (0.2-0.9) H 09/03/23 08:30 Eos # (Auto) 0.5 10^3/uL (0.0-0.8) 09/03/23 08:30 Baso # (Auto) 0.1 10^3/uL (0.0-0.1) 09/03/23 08:30 Nucleated RBC % (auto) 0 % 09/03/23 08: Nucleated RBCs # 0.0 /100WBC 09/03/23 08:30 Specimen Type Arterial 09/03/23 10:19 Sample Site Radial, right 09/03/23 10:19 ABG pH 7.25 (7.35-7.45) L 09/03/23 10:19 ABG pCO2 49.3 mmHg (35-45) H 09/03/23 10:19 ABG pO2 92.3 mmHg (80.0-100.0) 09/03/23 10:19 ABG PO2/FiO2 Ratio 0 09/03/23 10:19 ABG HCO3 21.5 mmol/L (22-26) L 09/03/23 10:19 ABG O2 Saturation 93.6 09/03/23 08:29 ABG Base Excess -5.8 mmol/L (-2.0-2.0) L 09/03/23 10:19 Rene Test Pos 09/03/23 10:19 A-a O2 Gradient Not Reportable 09/03/23 08:29 Hematocrit 34.4 % (37-47) L 09/03/23 10:19 Hgb O2 Saturation 90.9 % (95-100) L 09/03/23 08:29 Carboxyhemoglobin 3.9 %THgb (0.4-20.1) 09/03/23 08:29 Methemoglobin < 0.0 % (0.4-1.5) L 09/03/23 08:29 Total Hemoglobin 11.4 g/dL (12-16) L 09/03/23 08:29 Sodium 142.0 mmol/L (131-143) 09/03/23 08:29 Potassium 5.2 mmol/L (3.5-5.0) H 09/03/23 08:29 Glucose 286.0 mg/dL (70-115) H 09/03/23 08:29 Ionized Calcium 1.2 mmol/L (1.1-1.4) 09/03/23 08:29 O2 Delivery Device Vent 09/03/23 10:19 O2 Liters/Min 8.0 % 09/03/23 08:29 FiO2 75.0 % 09/03/23 10:19 Tidal Volume 0.36 09/03/23 10:19 PEEP 5.0 cmH20 09/03/23 10:19 Lining Closer ID [place] 09/03/23 10:19 Sodium 141 mmol/L (136-145) 09/03/23 08:30 Potassium 4.7 mmol/L (3.5-5.1) 09/03/23 08:30 Chloride 106 mmol/L (98-107) 09/03/23 08:30 Carbon Dioxide 18 mmol/L (22-29) L 09/03/23 08:30 Anion Gap 21.7 (5-19) H 09/03/23 08:30 BUN 28 mg/dL (8-23) H 09/03/23 08:30 Creatinine 1.9 mg/dL (0.5-0.9) H 09/03/23 08:30 GFR Calculation Not Reportable 09/03/23 08:30 Glucose 216 mg/dL (65-115) H 09/03/23 08:30 Calculated Osmolality 304 mOsm/kg (285-295) H 09/03/23 08:30 Lactic Acid 6.8 mmol/L (0.5-2.2) H* 09/03/23 08:30 Lactic Acid (Sepsis) 0.6 mmol/L (0.5-2.2) 09/03/23 11:47 Calcium 9.0 mg/dL (8.5-10.5) 09/03/23 08:30 Total Bilirubin 0.2 mg/dL (0.15-1.2) 09/03/23 08:30 AST 20 U/L (0-32) 09/03/23 08:30 ALT 10 U/L (0-33) 09/03/23 08:30 Alkaline Phosphatase 134 U/L (35-105) H 09/03/23 08:30 Troponin T Baseline 58 ng/L (0-10) H 09/03/23 08:30 Troponin T 120 Minute 68.42 ng/L (0-10) H 09/03/23 11:47 Delta Troponin T 10.42 ABS# (0-10) H* 09/03/23 11:47 C-Reactive Protein 11.8 mg/L (0.0-4.9) H 09/03/23 08:30 NT-Pro-B Natriuret Pep 34754 pg/mL (0-125) H 09/03/23 08:30 Total Protein 6.8 g/dL (6.6-8.7) 09/03/23 08:30 Albumin 3.6 g/dL (3.5-5.2) 09/03/23 08:30 Globulin 3.2 g/dL (1.3-4.6) 09/03/23 08:30 Procalcitonin 0.15 ng/mL (0-0.5) 09/03/23 08:30 Urine Color Light yellow (Yellow) 09/03/23 10:54 Urine Appearance Clear (CLEAR) 09/03/23 10:54 Urine pH 5 (5-7) 09/03/23 10:54 Ur Specific Magna 1.015 (1.005-1.030) 09/03/23 10:54 Urine Protein 3+ (Negative) H 09/03/23 10:54 Urine Glucose (UA) 4+ (Normal) H 09/03/23 10:54 Urine Ketones Negative (Negative) 09/03/23 10:54 Urine Blood Neg (Negative) 09/03/23 10:54 Urine Nitrate Positive (Negative) H 09/03/23 10:54 Urine Bilirubin Neg (Negative) 09/03/23 10:54 Urine Urobilinogen Neg mg/dL (Negative) 09/03/23 10:54 Ur Leukocyte Esterase Negative (Negative) 09/03/23 10:54 Urine RBC None /hpf (0-2) 09/03/23 10:54 Urine WBC 0-4 /hpf (0-5) H 09/03/23 10:54 Ur Squamous Epith Cells None /hpf (0-5) 09/03/23 10:54 Amorphous Sediment Not Reportable 09/03/23 10:54 Urine Bacteria 4+ /hpf (NONE) H 09/03/23 10:54 Serum Ketones Negative (Negative) 09/03/23 08:50 Coronavirus 229E (PCR) Not detected (NOT DETECT) 09/03/23 09:20 Influenza Type A Ag negative (Negative) 09/03/23 09:20 Influenza Type B Ag negative (Negative) 09/03/23 09:20 SARS-CoV-2 (PCR) Not detected (NOT DETECT) 09/03/23 09:20 All radiology interpretation(s) finalized by discharge Other Data Assessment and plan: Hypoxemic respiratory failure Acute COPD exacerbation -Patient was intubated emergently secondary to work of breathing and acidosis. -Seems to be mostly of metabolic acidosis as she has just a mild elevation in her CO2. -Multiple updraft given, IV Decadron was given, IV antibiotics. -Patient is now stable on the vent with much better oxygenation. -Sedation was not adequate with propofol so Versed has been added. -Central line was placed Possible sepsis - currently not giving any fluids as she appears to be in early heart failure and quite hypertensive on presentation. -Broad-spectrum antibiotics were administered. Given severe lactic acidosis and leukocytosis with respiratory failure I am treating her with broad-spectrum antibiotics. Possible sepsis. Zyvox and meropenem were given. -Sepsis quality measures. -Lactic acid with a reflex was ordered. -Blood cultures were ordered. Procalcitonin ordered. Atrial fibrillation -Currently rate controlled and patient is anticoagulated Congestive heart failure -Possible early failure on chest x-ray. -Patient is currently intubated with concern for sepsis not giving any Lasix. Admission -I discussed the patient with Dr. Fu who is admitting. Line was placed at his request. Urine was ordered. -I discussed the patient with the hospitalist on-call who is admitting the patient. - All laboratory values were reviewed and interpreted personally by myself, the ER physician - All imaging was reviewed and interpreted personally by myself, the ER physician. - Evaluation and treatment of this problem were appropriate in the emergency setting -I spent a total of >70 minutes of critical care time managing the patient, independent of any other practitioner. -The time involved in the performance of separately reportable procedures was not counted towards critical care time. Discharge Plan Discharge Admit Provider: Berto Fu Condition: Stable Coding Level of Care Code ED [employer] Supervisor for Kiran Holland
--- NOTE | 2023-09-03 09:04 | PC.PHAR ---
Addendum entered by Faina Lopez 09/03/23 10:14: talked to pts family heriberto she states the pt takes care of her own medications-heriberto brought in med list from clinics but doesnt match up what ext med history shows-asked [facility] to fax med list they have on file for the pt Original Note: pt is intubated-medications entered are what ext med history shows has been filled recently-ext med history shows aspirin 81mg daily filled 07/14/23 90d,s-eliquis 2.5mg bid filled 08/10/23 30d/s and plavix 75mg daily filled 08/10/23 30d/s-ext shows hydralazine 50mg bid filled 08/10/23 rx written 07/05/23 100mg tid ext doesnt show filled-ext shows metoprolol succ er 50mg daily filled 08/10/23 30d/s discharge papers from 06/19/23 shows changed to 100mg daily ext doesnt show filled -notes are made in the pharmacy comments
[2023-09-03 09:12] LABS: Troponin(5th) Baseline 58 ng/L (0-10)
[2023-09-03 09:15] LABS: Lactic Sepsis W/Reflex 6.8 mmol/L (0.5-2.2)
[2023-09-03] MEDS: propofol 1,000 MG/100 ML INJ 2.45000000000000018 MG IV (09:15)
[2023-09-03 09:22] LABS: Procalcitonin 0.15 ng/mL (0-0.5)
--- NOTE | 2023-09-03 09:24 | PC.NURSE ---
Addendum entered by Kori Cyr RN 09/03/23 12:08: at 0930 pt began to try and pull out tube, provider notified and ordered to give an additional 40mg bolus of propofol. Original Note: sedation after pt was intubated provider put in orders for propofol--started at 5mcg/kg/hr, pt started to [place] the vent and wake up, provider gave orders to give a 20mg bolus and then titrate drip to 20mcg/kg/min at 0918.
[2023-09-03 09:29] LABS: Ketone (Acetest) Serum Negative (Negative)
[2023-09-03 09:35] LABS: Alanine Aminotransferase 10 U/L (0-33); Albumin Level 3.6 g/dL (3.5-5.2); Alkaline Phosphatase 134 U/L (35-105); Anion Gap 21.7 (5-19); Aspartate Amino Transferase 20 U/L (0-32); Blood Urea Nitrogen 28 mg/dL (8-23); C Reactive Protein 11.8 mg/L (0.0-4.9); Carbon Dioxide 18 mmol/L (22-29); Chloride 106 mmol/L (98-107); Creatinine Clr Calc Pharmacy 25.3335; Globulin 3.2 g/dL (1.3-4.6); Glucose 216 mg/dL (65-115); Osmolality Calculated 304 mOsm/kg (285-295); Potassium 4.7 mmol/L (3.5-5.1); Sodium 141 mmol/L (136-145); Total Bilirubin 0.2 mg/dL (0.15-1.2); Total Protein 6.8 g/dL (6.6-8.7)
[2023-09-03 09:42] LABS: NT Pro B Type Natriuretic Pept 57176 pg/mL (0-125)
[2023-09-03 09:43] LABS: Influenza A by IFA negative (Negative); Influenza B by IFA negative (Negative)
[2023-09-03] MEDS: midazolam 1 mg/mL INJ 2 mL 2 MG IVP (10:03)
--- NOTE | 2023-09-03 10:09 | XR_ITS ---
WS: [id number] Exam: XR chest 1V portable [id number] Date/Time of Exam: 09/03/2023 10:16 AM Reason For Exam: Postintubation Comparison made with the prior study performed on the same day at 8:45 a.m. An ET tube has been placed and enters the proximal RIGHT mainstem bronchus. The lungs remain well scott tilated. The heart is mildly enlarged. Pulmonary vascular congestion unchanged. No pneumothorax. IMPRESSION: 1. ET tube entering the proximal RIGHT mainstem bronchus. The tube should be withdrawn 4 to 5 cm for optimal position. 2. Cardiac enlargement with pulmonary vascular congestion unchanged. These findings and recommendations were discussed by phone with Anamika Camarena the attending ER fahad torres at 10:41 a.m. 09/03/2023.
[2023-09-03] MEDS: midazolam hcl 100 MG/100 ML BAG IV (10:20)
[2023-09-03 10:31] LABS: ABG PCO2 49.3 mmHg (35-45); ABG PH Result 7.25 (7.35-7.45); Arterial Blood Gas Hematocrit 34.4 % (37-47); Base Excess ABG -5.8 mmol/L (-2.0-2.0); Blood Gas Allen Test Pos; Blood Gas Operator Identificat WALCI; Blood Gas Sample Site Radial, right; Blood Gas Sample Type Arterial; Blood Gas Tidal Volume 0.36; HCO3 ABG 21.5 mmol/L (22-26); Oxygen Device VENT; PO2 ABG 92.3 mmHg (80.0-100.0); PO2 FiO2 Ratio Arterial Blood 0
[2023-09-03 10:34] LABS: Reflex Lactate Order REFLEX LACTIC ORDERD
--- NOTE | 2023-09-03 10:37 | XR_ITS ---
WS: [id number] Exam: XR chest 1V [id number] Date/Time of Exam: 09/03/2023 10:45 AM Reason For Exam: ett pulled back Comparison with the latest exam 03/05/2024 at 10:28 a.m. The ET tube has been retracted and now ends about 3 cm above the joao. The lungs are adequately scott tilated. Again noted is cardiac enlargement with increased pulmonary vascularity. IMPRESSION: 1. ET tube has been retracted and now ends about 3 cm above the joao in satisfactory position. The chest is otherwise unchanged.
[2023-09-03] MEDS: rocuronium 10 mg/mL INJ 5mL 100 MG IVP (11:09)
--- NOTE | 2023-09-03 11:10 | P.HP_ITS ---
Providers/Chief Complaint 2 Admitting Physician: Berto Fu MD, hospitalist Primary Care Provider: Jocelyne Kirby Chief Complaint: RESPIRATORY DISTRESS History of Present Illness Romi Yuan is a 72 year old female is a 72-year-old white female, brought into the emergency department by EMS in significant respiratory distress. Apparently she was answering questions, unable to move extremities but required emergent intubation. Elevated blood pressure was also noted during this timeframe. She was brought in on 100% FiO2. Her most recent hospital stay was she was discharged on June 19 with hypertension, CHF exacerbation, and concern for a cardiac event. During this hospital stay her EF was found to be 35%. She underwent an angiogram demonstrating severe [place] coronary disease with patent LOVETT to LAD and recommendations were made for medical treatment. She was also aggressively treated for hypertension. Other history is unable to be obtained from the patient at this time. Review of Systems 2 General: Reports: ROS unobtainable due to endotracheal tube Medications/Allergies Home Medications Medication Instructions Recorded Confirmed Last Taken Type isosorbide mononitrate 60 mg 60 mg PO BID 07/20/19 09/03/23 06/16/23 History tablet,extended release 24 hr umeclidinium 62.5 mcg-vilanterol 1 inh inhalation DAILY 07/20/19 09/03/23 06/16/23 History 25 mcg/actuation powdr for inhalation (Anoro Ellipta) venlafaxine 150 mg See Rx Instructions .Route .COMPLEX 07/20/19 09/03/23 06/15/23 History capsule,extended release 24 hr (Effexor XR) methimazole 5 mg tablet 5 mg PO DAILY #30 tabs 03/11/20 09/03/23 06/16/23 Rx blood sugar diagnostic (Accu-Chek #120 ea 06/23/21 09/03/23 Unknown Rx Ana M Plus test strips) clopidogrel 75 mg tablet (Plavix) 75 mg PO DAILY #60 tabs 06/15/22 09/03/23 06/16/23 Rx acitretin 10 mg capsule 10 mg PO QAM 06/19/22 09/03/23 06/16/23 History atorvastatin 40 mg tablet 40 mg PO BEDTIME 06/19/22 09/03/23 06/15/23 History venlafaxine 75 mg capsule,extended See Rx Instructions .Route .COMPLEX 06/19/22 09/03/23 06/15/23 History release 24 hr acetaminophen 500 mg tablet 500 mg PO BEDTIME 07/09/22 09/03/23 06/15/23 History albuterol sulfate 90 mcg/actuation 2 puff inhalation QID PRN 07/09/22 09/03/23 02/26/23 History aerosol inhaler (Ventolin HFA) Shortness Of Breath insulin lispro 100 unit/mL See Rx Instructions .Route .COMPLEX 07/09/22 09/03/23 02/26/23 History subcutaneous pen (Humalog KwikPen (U-100) Insulin) nitroglycerin 0.4 mg sublingual 0.4 mg sublingual Q5M PRN Chest 07/09/22 09/03/23 02/26/23 History tablet (Nitrostat) Pain tizanidine 4 mg tablet 4 mg PO BEDTIME 07/09/22 09/03/23 06/15/23 History empagliflozin 10 mg tablet 10 mg PO DAILY 09/07/22 09/03/23 06/16/23 History (Jardiance) potassium chloride 10 mEq 10 meq PO BID #180 tabs 11/26/22 09/03/23 06/16/23 Rx tablet,extended release apixaban 2.5 mg tablet 2.5 mg PO BID #180 tabs 05/19/23 09/03/23 06/16/23 Rx calcitriol 0.25 mcg capsule See Rx Instructions .Route .COMPLEX 06/17/23 09/03/23 06/16/23 History furosemide 40 mg tablet See Rx Instructions .Route 07/15/23 09/03/23 Unknown Rx .COMPLEX #135 tabs aspirin 81 mg tablet,delayed 81 mg PO BEDTIME 09/03/23 09/03/23 Unknown History release ergocalciferol (vitamin D2) 1,250 50,000 unit PO Q7D 09/03/23 09/03/23 Unknown History mcg (50,000 unit) capsule (Vitamin D2) hydralazine 50 mg tablet 50 mg PO BID 09/03/23 09/03/23 Unknown History insulin glargine 100 unit/mL (3 See Rx Instructions .Route .COMPLEX 09/03/23 09/03/23 Unknown History mL) subcutaneous pen (Lantus Solostar U-100 Insulin) metoprolol succinate 50 mg 50 mg PO DAILY 09/03/23 09/03/23 Unknown History tablet,extended release 24 hr sacubitril 24 mg-valsartan 26 mg 1 tab PO BID 09/03/23 09/03/23 Unknown History tablet (Entresto) Allergies Allergy/AdvReac Type Severity Reaction Status Date / Time cefuroxime [From Ceftin] Allergy ALGY-Rash Verified 08/05/23 10:37 cephalexin [From Keflex] Allergy ALGY-Rash Verified 08/05/23 10:37 hydroxyzine [From Vistaril] Allergy ALGY-Anaphy Verified 08/05/23 10:37 laxis Penicillins Allergy ALGY-Redness Verified 08/05/23 10:37 of Skin prochlorperazine Allergy ALGY-Anaphy Verified 08/05/23 10:37 [From Compazine] laxis promethazine [From Phenergan] Allergy ALGY-Anaphy Verified 08/05/23 10:37 laxis venom-honey bee Allergy ALGY-Anaphy Verified 08/05/23 10:37 laxis simvastatin [From Zocor] AdvReac ADR-Heartbu Verified 08/05/23 10:37 rn PFSH Acute 2 PFSH: Medical History (Updated 09/03/23 @ 11:22 by Berto Fu MD) Diabetes mellitus PAD (peripheral artery disease) Dyslipidemia HTN (hypertension) NSTEMI (non-ST elevated myocardial infarction) Eczema CAD (coronary artery disease) Clostridioides difficile infection (07/2022) Insomnia CHF (congestive heart failure) Chronic kidney disease Hypertensive urgency Pneumonia due to COVID-19 virus (~06/2022) Colon polyps History of skin cancer Hyperthyroidism Graves disease History of CVA (cerebrovascular accident) COPD (chronic obstructive pulmonary disease) Anxiety Carotid arterial disease ASHD (arteriosclerotic heart disease) Surgical History Status post insertion of iliac artery stent History of coronary artery stent placement History of cardiac catheterization 06/25/2022 Left main artery: Short, patent. Left circumflex artery: Has patent stents, no significant stenosis. LAD:Occluded in the midsegment. RCA: Known occluded. Not injected. SVG to diagonal artery and SVG to RCA are known occluded. Not injected. LOVETT to LAD: Patent. Coronary anatomy unchanged compared to before. History of renal stent Hx of local excision of skin lesion (09/16/20) Left forearm x2 Status post colonoscopy (09/16/20) S/P hysterectomy with oophorectomy S/P cholecystectomy S/P CABG (coronary artery bypass graft) twice, last in 2004 History of endovascular stent graft for abdominal aortic aneurysm (AAA) S/P cataract surgery S/P skin and subcutaneous tissue surgery Family History Sister Mark's disease Sister No problems noted. Mother No problems noted. Other Anesthesia complication Social History Smoking and tobacco/nicotine status: former use of tobacco/nicotine Alcohol intake: current Alcohol intake frequency: holidays/special occasions only Substance/Drug Use: current Vitals/I&O/Wt Last Vital Signs Temp 98.4 F 09/03/23 08:31 Pulse 80 09/03/23 10:55 Resp 16 09/03/23 10:55 BP 136/64 09/03/23 10:55 Pulse Ox 99 09/03/23 10:55 O2 Del Method Mechanical Ventilation 09/03/23 09:22 O2 Flow Rate 6 09/03/23 08:50 FiO2 75 09/03/23 10:34 09/02/23 09/03/23 09/03/23 22:59 06:59 14:59 Intake Total 16.047 / 16.047 Balance 16.047 / 16.047 Weight last 48 hrs Weight 81.647 kg Physical Exam 2 Narrative: General exam is a white female, intubated and sedated but spontaneously moving all 4 extremities HEENT: Atraumatic normocephalic. Pupils equally round. Oropharynx demonstrates endotracheal tube Neck is supple no lymphadenopathy thyromegaly Cardiovascular regular, 2/6 systolic murmur Lungs bilateral expiratory wheezes. Coarse breath sounds at the bases Abdomen is soft. Bowel sounds are noted. No obvious organomegaly. exam demonstrates no [place] yet. Extremities show no cyanosis clubbing or edema, cap refill brisk Skin no rash Neuro no obvious focal deficits Data 09/03/23 08:30 09/03/23 08:30 Other Labs: Initial ABG pH 7.14, pCO2 55, pO2 83. I believe this was on 100% FiO2. Lactic acid 6.8 LFTs normal with the exception of alk phos of 134 Troponin baseline 58 CRP 11.8 BNP 57,000. Note that it has been markedly elevated in the past as well. Urinalysis demonstrates positive nitrate 0-4 white blood cells and 4+ bacteria. No blood cells are noted Ketones are negative Influenza coronavirus negative Chest x-ray by my review demonstrates previous sternotomy, calcification of the aorta, cardiomegaly, bibasilar infiltrates.X-ray was repeated several times. The last x-ray demonstrates an endotracheal tube approximately 3 to 4 cm above the joao and below the clavicles with appropriate position. I do not see an OG tube at this time. Blood and urine cultures were obtained EKG per my review demonstrates sinus rhythm, left axis deviation, ST depression V5 through 6 as well as laterally. These EKG changes are previous to similar EKGs. Micro: Microbiology 09/03/23 09:44 Blood Culture - Preliminary Blood SPECIMEN COLLECTED 09/03/23 09:37 Blood Culture - Preliminary Blood SPECIMEN COLLECTED A&P Assessment and plan (1) Acute respiratory failure with hypoxia: Patient presents with acute hypoxic respiratory failure. It is hard to know exactly the etiology of this. I think it is likely the patient has an acute COPD exacerbation. With x-ray pattern, elevated white blood cell count, cannot completely exclude pneumonia or acute CHF. BNP is markedly elevated and patient's ejection fraction at last check was around 35%. Continue ventilator currently. Currently she is on a PEEP of 5, and FiO2 of 75%. Wean as tolerated. Propofol, fentanyl for sedation (2) Acute exacerbation of chronic obstructive airways disease: IV steroids Solu-Medrol 60 mg IV every 12 hours DuoNeb every 4 hours Budesonide twice daily (3) Acute exacerbation of CHF (congestive heart failure): There is concern for acute congestive heart failure. She has a known EF of around 35%, and ischemic cardiomyopathy. Lasix 40 mg IV x 1 No IV fluids Close follow-up of creatinine, respiratory status tomorrow. It appears like her creatinine is baseline at 1.9. Hold Entresto currently (4) Diabetes mellitus: Patient has diabetes. Obviously steroids will increase blood sugar. Mild sliding scale insulin. No evidence of DKA. (5) CAD (coronary artery disease): Patient with significant coronary disease, but no ability to do intervention on recent angiogram Continue aspirin, Plavix, statin. Restart Imdur as tolerated by blood pressure. Continue beta-lexy. Qualifiers: Associated angina: without angina Coronary Disease-Associated Artery/Lesion type: [place] artery [place] vs. transplanted heart: [place] heart Qualified Code(s): I25.10 - Atherosclerotic heart disease of [place] coronary artery without angina pectoris (6) HTN (hypertension): Continue home blood pressure medication as tolerated, but will have to monitor closely secondary to sedation for ventilator Qualifiers: Hypertension type: primary hypertension Qualified Code(s): I10 - Essential (primary) hypertension (7) Chronic kidney disease: Avoid renal toxic medication BMP daily Urinalysis with questionable UTI. IV antibiotics consisting of meropenem and vancomycin initially secondary to concern of pneumonia will be sufficient Await cultures Qualifiers: Chronic kidney disease stage: stage 3 (moderate) Chronic kidney disease stage 3 subtype: stage 3a (GFR 45-59) Qualified Code(s): N18.31 - Chronic kidney disease, stage 3a Plan Past history of PE. She is on Eliquis at home. Multiple other medical problems as outlined in past medical history Full code currently SCDs for DVT prophylaxis. Eliquis at home will be changed to subcutaneous heparin currently. Troponin is not significantly elevated considering circumstances and renal function. Will trend. Consider heparin drip if any concerns. Protonix for GI prophylaxis I was able to talk to a cousin who helps to attend her needs here. She reports she had had some shortness of breath in the last week. She had not been complaining of any abdominal pain, fever. Attestations 2 Medical Necessity Statement*: Will require greater than 2 midnight stay for evaluation and treatment of acute hypoxic respiratory failure requiring ventilatory support Critical Care Time: The high probability of a clinically significant, sudden or life threatening deterioration of the patient's [renal, infectious, pulmonary, cardiac] system(s) required my full and direct attention, intervention and personal management. The critical care time is as shown. This time is in addition to time spent performing any reported procedures but includes the following: [x] Data and vital sign review and interpretation [x] Patient assessment, examination and intervention [x] Documentation [x] Medication orders and management Critical Care Time (min): 67 Coding Level of Care Code Critical Care >/= 30 minutes Critical care time (in minutes): 67 The high probability of a clinically significant, sudden or life threatening deterioration, as referenced in this documentation, required my full and direct attention, intervention and personal management. The critical care time shown is in addition to time spent performing any reported separately billable procedures and includes the following: [x] Data and vital sign review and interpretation [x ] Patient assessment, examination and intervention [x] Medication orders and management [x] Patient/Family updates as able [x] Care Coordination and Documentation. Diagnoses Acute respiratory failure with hypoxia J96.01 Acute exacerbation of chronic obstructive airways disease J44.1 Acute exacerbation of CHF (congestive heart failure) I50.9 Diabetes mellitus E11.9 Coronary artery disease involving [place]-bil[place] coronary artery of [place] heart without angina pectoris I25.10 Associated angina: without angina Coronary Disease-Associated Artery/Lesion type: [place] artery [place] vs. transplanted heart: [place] heart Primary hypertension I10 Hypertension type: primary hypertension Stage 3a chronic kidney disease N18.31 Chronic kidney disease stage: stage 3 (moderate) Chronic kidney disease stage 3 subtype: stage 3a (GFR 45-59)
[2023-09-03 11:13] LABS: Adenovirus Not Detected (NOT DETECT); Chlamydia Pneumoniae Not Detected (NOT DETECT); Coronavirus 229E,HKU1,NL63,OC4 Not Detected (NOT DETECT); Human Metapneumovirus Not Detected (NOT DETECT); Human Rhinovirus/Enterovirus Not Detected (NOT DETECT); Influenza A Not Detected (NOT DETECT); Influenza A H1 Not Detected (NOT DETECT); Influenza A H1-2009 Not Detected (NOT DETECT); Influenza A H3 Not Detected (NOT DETECT); Influenza B Not Detected (NOT DETECT); Mycoplasma Pneumoniae Not Detected (NOT DETECT); Parainfluenza Virus Type 1 Not Detected (NOT DETECT); Parainfluenza Virus Type 2 Not Detected (NOT DETECT); Parainfluenza Virus Type 3 Not Detected (NOT DETECT); Parainfluenza Virus Type 4 Not Detected (NOT DETECT); Respiratory Syncytial Virus A Not Detected (NOT DETECT); Respiratory Syncytial Virus B Not Detected (NOT DETECT); SARS-COV-2 Not Detected (NOT DETECT)
[2023-09-03 11:13] LABS: Bacteria Urine 4+ /hpf; Bilirubin Urine Neg (Negative); Blood Urine Neg (Negative); Glucose Urine UA 4+ (Normal); Ketones Urine Negative (Negative); Leukocyte Esterase Urine Negative (Negative); Nitrate Urine Positive (Negative); Protein Urine 3+ (Negative); Specific Gravity, Urine 1.015 (1.005-1.030); Urine Appearance Clear (CLEAR); Urine Color Light yellow (Yellow); Urobilinogen Urine Neg (Negative); WBC Urine 0-4 /hpf (0-5); pH Urine 5 (5-7)
[2023-09-03 11:14] LABS: Add Urine Culture? Yes
--- NOTE | 2023-09-03 11:38 | XR_ITS ---
WS: [id number] Exam: XR chest 1V portable [id number] Date/Time of Exam: 09/03/2023 11:43 AM Reason For Exam: cvl placement Comparison 09/03/2023. A right-sided IJ catheter has been placed and ends at the cavoatrial junction in satisfactory locatio n. ET tube ends 3 to 4 cm above the joao in good position. The lungs are adequately ventilated. Mil d cardiac enlargement unchanged. Decreased pulmonary vascular congestion since the prior exam at 1058 hours on the same day. IMPRESSION: 1. RIGHT IJ catheter ending at the cavoatrial junction. 2. ET tube remains in satisfactory position. 3. Improved pulmonary vascular congestion since the latest study.
[2023-09-03] MEDS: meropenem 500 MG in sodium chloride 0.9% (plus) 50 ML 100 MG IV (11:58)
[2023-09-03] MEDS: linezolid premix 600 MG/300 ML PREMIX 300 MG IV (12:02)
--- NOTE | 2023-09-03 12:06 | PC.NURSE ---
antibiotics were administered late d/t limited IV access and medications were not compatible, provider notified and central line was started to obtain more access.
[2023-09-03] MEDS: methylPREDNISolone sod succ 125 mg/2 mL INJ IVP (12:25)
[2023-09-03 12:26] LABS: Troponin 5 2HR 68.42 ng/L (0-10)
[2023-09-03 12:27] LABS: Lactic Acid level (Lactate) 0.6 mmol/L (0.5-2.2); Troponin 5 2HR Delta 10.42 ABS# (0-10)
[2023-09-03] MEDS: FUROsemide 10 mg/mL SDV 4mL 40 MG IVP (12:28)
[2023-09-03] MEDS: ipratropium-albuterol 3 mL Neb INHALATION ×4 (13:49→23:40)
--- NOTE | 2023-09-03 14:06 | XR_ITS ---
WS: [id number] Exam: XR chest 1V portable [id number] Date/Time of Exam: 09/03/2023 2:11 PM Reason For Exam: og placement Comparison made with previous exam performed on the same day at 11:47 a.m. An enteric tube has been placed and ends in the body the stomach. Lungs are fully expanded. Heart siz e is unchanged. Mild infiltrate in the RIGHT base. Right-sided IJ catheter appears to extend into the RIGHT atrium. ET tube ends about 3 cm above the joao unchanged. IMPRESSION: 1. Enteric tube ending in the stomach. ET tube unchanged in position. RIGHT IJ central line ending in the RIGHT atrium. 2. Mild infiltrate in the RIGHT lower lung zone.
--- NOTE | 2023-09-03 14:21 | PC.NURSE ---
MTS on unit and gave all patient information in person.
[2023-09-03] MEDS: propofol 1,000 MG/100 ML INJ 45 MG IV (14:53)
[2023-09-03] MEDS: pantoprazole 40 mg SDV IVP (14:53)
[2023-09-03] MEDS: heparin 5,000 unit/mL INJ 1 mL 5000 UNIT SUBCUT (14:54)
[2023-09-03] MEDS: vancomycin 1,000 MG in sodium chloride 0.9% 250 ML 250 MG IV (14:54)
[2023-09-03] MEDS: fentaNYL 1,000 MCG/100 ML BAG 2.5 MCG IV (14:56)
[2023-09-03 16:32] LABS: Troponin 5 6HR 68.27 ng/L (0-10); Troponin 5 6HR Delta 10.27 ng/L (0-12)
[2023-09-03 17:07] LABS: Glucose Point of Care 331 mg/dL (70-110)
[2023-09-03] MEDS: insulin lispro 100 unit/1 mL SUBCUT ×2 (17:18→21:23)
[2023-09-03] MEDS: hyDRALAzine 50 mg Tablet PO (17:18)
[2023-09-03] MEDS: isosorbide mononitrate ER 60 mg Tablet PO (17:18)
[2023-09-03] MEDS: propofol 1,000 MG/100 ML INJ 35 MG IV (18:48)
[2023-09-03] MEDS: budesonide 0.5 mg/2 mL Neb INHALATION (20:08)
[2023-09-03 21:20] LABS: Glucose Point of Care 208 mg/dL (70-110)
[2023-09-03] MEDS: venlafaxine ER (24HR) 150 mg Capsule PO (21:23)
[2023-09-03] MEDS: methylPREDNISolone sod succ 125 mg/2 mL INJ 60 MG IVP (21:23)
[2023-09-03] MEDS: venlafaxine ER (24HR) 75 mg Capsule PO (21:23)
[2023-09-03] MEDS: atorvastatin 40 mg Tablet PO (21:23)
[2023-09-03] MEDS: aspirin 81 mg EC Tablet PO (21:24)
[2023-09-03] MEDS: metoprolol tartrate 25 mg Tablet PO (21:25)
[2023-09-04] VITALS (45 sets, daily range): BP systolic 87–168; BP diastolic 41–91; PULSE 79–141; RESP 14–19; TEMP 36.6–36.9; O2SAT 94–100
[2023-09-04] MEDS: chlorhexidine gluconate 4% Btl 118 mL 1 APPLIC TOPICAL (01:49)
[2023-09-04] MEDS: heparin 5,000 unit/mL INJ 1 mL 5000 UNIT SUBCUT ×2 (01:51→12:32)
[2023-09-04] MEDS: propofol 1,000 MG/100 ML INJ 25 MG IV ×3 (02:28→12:31)
[2023-09-04] MEDS: ipratropium-albuterol 3 mL Neb INHALATION ×6 (04:00→23:52)
[2023-09-04 04:16] LABS: Hematocrit 31.3 % (36-47); Lymphocytes # 0.3 10^3/uL (0.8-4.8); Lymphocytes % 4.6 %; Mean Corpuscular HGB Conc 30.4 g/dL (30-55); Mean Corpuscular Hemoglobin 25.4 pg (27-33); Mean Corpuscular Volume 83.7 fl (85-98); Mean Platelet Volume 10.6 fL (7.4-10.4); Monocytes # 0.2 10^3/uL (0.2-0.9); Monocytes % 2.2 %; Neutrophils # 6.18 10^3/uL (1.8-7.7); Neutrophils % 92.8 %; Nucleated Red Blood Cells % 0 %; Platelet Count 228 10^3/cmm (157-399); Red Blood Count 3.74 10^6/uL (3.85-5.65); Red Cell Distribution Width 16.3 % (12.1-15.1); White Blood Count 6.67 10^3/uL (3.29-11.43)
[2023-09-04 04:22] LABS: ABG PCO2 42.3 mmHg (35-45); ABG PH Result 7.34 (7.35-7.45); Arterial Blood Gas Hematocrit 32.6 % (37-47); Base Excess ABG -2.8 mmol/L (-2.0-2.0); Blood Gas Allen Test Pos; Blood Gas Sample Site Radial, right; Blood Gas Sample Type Arterial; Blood Gas Tidal Volume 0.36; HCO3 ABG 22.8 mmol/L (22-26); Oxygen Device VENT; PO2 FiO2 Ratio Arterial Blood 0
[2023-09-04 04:38] LABS: Alanine Aminotransferase 10 U/L (0-33); Albumin Level 2.8 g/dL (3.5-5.2); Alkaline Phosphatase 121 U/L (35-105); Anion Gap 16.9 (5-19); Aspartate Amino Transferase 19 U/L (0-32); Blood Urea Nitrogen 37 mg/dL (8-23); Calcium 8.7 mg/dL (8.5-10.5); Carbon Dioxide 22 mmol/L (22-29); Chloride 108 mmol/L (98-107); Creatinine Clr Calc Pharmacy 31.2116; Globulin 2.9 g/dL (1.3-4.6); Glucose 225 mg/dL (65-115); Magnesium 2.1 mg/dL (1.7-2.3); Osmolality Calculated 310 mOsm/kg (285-295); Potassium 4.9 mmol/L (3.5-5.1); Sodium 142 mmol/L (136-145); Total Bilirubin 0.2 mg/dL (0.15-1.2); Total Protein 5.7 g/dL (6.6-8.7)
--- NOTE | 2023-09-04 07:00 | XRR_ITS ---
PROCEDURE INFORMATION: Exam: XR Chest Exam date and time: 09/04/2023 8:01 AM Age: 72 years old Clinical indication: Shortness of breath; Patient HX: Ventilated patient f/u; Additional info: Resp failure TECHNIQUE: Imaging protocol: Radiologic exam of the chest. Views: 1 view. COMPARISON: CR XR chest 1V portable [id number] 09/03/2023 1:20 PM FINDINGS: Tubes, catheters and devices: There is an ETT with tip at the clavicular heads, orogastric tube with tip in the stomach and right IJ central line with tip in the right atrium. Lungs: There is improving vascular congestion/CHF. Improving airspace opacities in the lower lobes with mild residual ground-glass opacity medial right lower lobe. Pleural spaces: Unremarkable. No pleural effusion. No pneumothorax. Heart/Mediastinum: The heart is enlarged. Bones/joints: Sternotomy wires and mediastinal surgical clips are present, consistent with previous coronary arterial bypass grafting. XR/XR chest 1V portable [id number] IMPRESSION: 1. Lines and tubes unchanged in good position 2. There is improving vascular congestion/CHF. 3. Improving airspace opacities in the lower lobes with mild residual ground-glass opacity medial right lower lobe.
[2023-09-04 07:01] LABS: Glucose Point of Care 194 mg/dL (70-110)
[2023-09-04] MEDS: fentaNYL 1,000 MCG/100 ML BAG 7.5 MCG IV ×2 (07:41→19:49)
[2023-09-04] MEDS: insulin lispro 100 unit/1 mL SUBCUT ×3 (07:42→17:21)
[2023-09-04] MEDS: budesonide 0.5 mg/2 mL Neb INHALATION ×2 (07:54→19:36)
[2023-09-04] MEDS: methIMAzole 5 MG Tablet PO (08:30)
[2023-09-04] MEDS: isosorbide mononitrate ER 60 mg Tablet PO ×2 (08:30→17:21)
[2023-09-04] MEDS: hyDRALAzine 50 mg Tablet PO ×2 (08:30→17:21)
[2023-09-04] MEDS: metoprolol tartrate 25 mg Tablet PO ×2 (08:30→20:28)
[2023-09-04] MEDS: clopidogrel 75 mg Tablet PO (08:30)
[2023-09-04] MEDS: methylPREDNISolone sod succ 125 mg/2 mL INJ 60 MG IVP ×2 (09:15→22:19)
[2023-09-04 12:28] LABS: Glucose Point of Care 163 mg/dL (70-110)
[2023-09-04] MEDS: pantoprazole 40 mg SDV IVP (12:30)
[2023-09-04] MEDS: meropenem 1,000 MG in sodium chloride 0.9% (plus) 50 ML 100 MG IV ×2 (12:31→23:50)
--- NOTE | 2023-09-04 15:56 | PM.PN ---
Subjective Subjective: On mechanical ventilatory support, receiving sedation. Does wake up to voice, shoulder touch, slow to respond, but nods no denying any pain. Vitals/I&O/Wt Last Vital Signs Temp 98 F 09/04/23 12:00 Pulse 100 09/04/23 15:31 Resp 14 09/04/23 15:24 BP 109/48 09/04/23 14:00 Pulse Ox 98 09/04/23 15:24 O2 Del Method Mechanical Ventilation 09/04/23 15:22 O2 Flow Rate 6 09/03/23 08:50 FiO2 30 09/04/23 15:24 09/04/23 09/04/23 09/04/23 06:59 14:59 22:59 Intake Total 226.708 / 858.899 218.625 / 218.625 Output Total 200 / 950 400 / 400 Balance 26.708 / -91.101 -181.375 / -181.375 Weight last 48 hrs Weight 81.647 kg Physical Exam Const: GENERAL APPEARANCE: cooperative and patient mechanically ventilated ORIENTATION/CONSCIOUSNESS: Yes awake HENMT: COMMON NORMALS: oropharynx normal Neck/C-Spine: COMMON NORMALS: no JVD Resp: COMMON NORMALS: normal respiratory effort and clear to auscultation bilaterally AUSCULTATION: clear to auscultation bilaterally Cardio: COMMON NORMALS: no JVD, regular rhythm, S1 normal heart sound present, S2 normal heart sound present and No murmurs present (Cardio) RHYTHM: regular rhythm HEART SOUNDS: S1 normal heart sound present and S2 normal heart sound present GI: COMMON NORMALS: Normal to inspection, nondistended, normoactive bowel sounds present, Soft to palpation and non-tender PALPATION: Yes Soft to palpation Extremity: COMMON NORMALS: no joint enlargement and no pedal edema Neuro: COMMON NORMALS: moves all extremities Skin: COMMON NORMALS: no rashes or lesions noted GENERAL SKIN EXAM: no rashes or lesions noted Urinary Catheter Management: Munson: Cath Placed During This Visit: yes Reason for Continuing Indwelling Catheter: Accurate Measurement of Urinary Output in Critically Ill Patients Urinary Catheter Date of Insertion: 09/03/23 Data 09/04/23 03:34 09/04/23 03:34 Micro: Microbiology 09/03/23 09:26 Gram Stain - Final Sputum - Endotracheal Tube Aspirate Sputum Culture - Preliminary 03/29/24 09:44 Blood Culture - Preliminary Blood NEGATIVE TO DATE 09/03/23 09:37 Blood Culture - Preliminary Blood NEGATIVE TO DATE 09/03/23 10:54 Urine Culture - Preliminary Urine,Clean Catch Gram Negative Rods A&P Assessment and plan (1) Acute respiratory failure with hypoxia: Reviewed vitals, ventilator settings, CBC, ABG, CMP, chest x-ray from this morning. Discussed with respiratory therapy. Discussed weaning of mechanical insulation, FiO2 is decreased down to 30%. Per discussion with RT, however, she had a very large amount of secretions suctioned earlier this morning. Not deemed ready for extubation at current time. Continue pulmonary toilet. Continue treatment of COPD exacerbation, IV steroids, breathing treatments, empiric antibiotic coverage with meropenem, vancomycin. Reviewed MRSA PCR, still pending. Continue to reassess readiness for extubation. Reviewed intake and output, appears in negative balance, hold off additional diuretic for now. Noted some worsening renal function, BUN up to 37, creatinine up to 2.1. Reassess pulm status, kidney function. Patient presents with acute hypoxic respiratory failure. It is hard to know exactly the etiology of this. I think it is likely the patient has an acute COPD exacerbation. With x-ray pattern, elevated white blood cell count, cannot completely exclude pneumonia or acute CHF. BNP is markedly elevated and patient's ejection fraction at last check was around 35%. History of PE, though currently does not appear to show signs to suggest active PE. Was transition to subcutaneous heparin while in the hospital. Is noted to have some acute anemia 9.5 will not escalate anticoagulation for the time being. Check Hemoccult. Continue PPI. Monitor for any active bleeding. No reports of hematochezia or melanotic stools, no bloody secretions and no GI or ET suctioning. No hematuria. Noted microcytic anemia, possibly of underlying chronic DEBORAH. Check Hemoccult. At current time no suggestion of hemolysis. Follow-up bilirubin, CBC. Check LDH, haptoglobin, reticulocyte, peripheral smear. Platelet level is okay. (2) Anemia: Noted microcytic anemia, possibly of underlying chronic DEBORAH. Check Hemoccult. At current time no suggestion of hemolysis. Follow-up bilirubin, CBC. Check LDH, haptoglobin, reticulocyte, peripheral smear. Platelet level is okay. Check TIBC, ferritin. Follow-up CBC (3) Acute exacerbation of chronic obstructive airways disease: Large amount of secretions suctioned this morning. Sputum culture obtained. Follow-up results. Treatment for COPD exacerbation. IV steroids Solu-Medrol 60 mg IV every 12 hours DuoNeb every 4 hours Budesonide twice daily Empiric antibiotic coverage with meropenem. (4) Acute exacerbation of CHF (congestive heart failure): As above, noted worsening renal function. Hold off additional diuretics. Reassess volume status. There is concern for acute congestive heart failure. She has a known EF of around 35%, and ischemic cardiomyopathy. No IV fluids Close follow-up of creatinine, respiratory status tomorrow. It appears like her creatinine is baseline at 1.9. Hold Entresto currently (5) Diabetes mellitus: Patient has diabetes. Obviously steroids will increase blood sugar. Mild sliding scale insulin. No evidence of DKA. (6) CAD (coronary artery disease): Patient with significant coronary disease, but no ability to do intervention on recent angiogram Continue aspirin, Plavix, statin. Restart Imdur as tolerated by blood pressure. Continue beta-lexy. Qualifiers: Associated angina: without angina Coronary Disease-Associated Artery/Lesion type: [place] artery [place] vs. transplanted heart: [place] heart Qualified Code(s): I25.10 - Atherosclerotic heart disease of [place] coronary artery without angina pectoris (7) HTN (hypertension): Continue home blood pressure medication as tolerated, but will have to monitor closely secondary to sedation for ventilator Qualifiers: Hypertension type: primary hypertension Qualified Code(s): I10 - Essential (primary) hypertension (8) Chronic kidney disease: Avoid renal toxic medication BMP daily Urinalysis with questionable UTI. IV antibiotics consisting of meropenem and vancomycin initially secondary to concern of pneumonia will be sufficient Await cultures Qualifiers: Chronic kidney disease stage: stage 3 (moderate) Chronic kidney disease stage 3 subtype: stage 3a (GFR 45-59) Qualified Code(s): N18.31 - Chronic kidney disease, stage 3a Plan Past history of PE. She is on Eliquis at home. Multiple other medical problems as outlined in past medical history Full code currently SCDs for DVT prophylaxis. Eliquis at home will be changed to subcutaneous heparin currently. Troponin is not significantly elevated considering circumstances and renal function. Unremarkable trend on review. Protonix for GI prophylaxis A cousin who helps to attend her needs here. She reports she had had some shortness of breath in the last week. She had not been complaining of any abdominal pain, fever. Attestations Medical Necessity Statement*: Continue admission for assessment management of respiratory failure, COPD exacerbation, possible pneumonia, CHF, worsening renal function, and lady with underlying CAD, CKD, additional medical problems. Coding Level of Care Code Critical Care >/= 30 minutes Critical care time (in minutes): 35 The high probability of a clinically significant, sudden or life threatening deterioration, as referenced in this documentation, required my full and direct attention, intervention and personal management. The critical care time shown is in addition to time spent performing any reported separately billable procedures and includes the following: [x] Data and vital sign review and interpretation [x] Patient assessment, examination and intervention [x] Medication orders and management [x] Patient/Family updates as able [x] Care Coordination and Documentation. Diagnoses Acute respiratory failure with hypoxia J96.01 Anemia D64.9 Acute exacerbation of chronic obstructive airways disease J44.1 Acute exacerbation of CHF (congestive heart failure) I50.9 Diabetes mellitus E11.9 Coronary artery disease involving [place] coronary artery of [place] heart without angina pectoris I25.10 Associated angina: without angina Coronary Disease-Associated Artery/Lesion type: [place] artery [place] vs. transplanted heart: [place] heart Primary hypertension I10 Hypertension type: primary hypertension Stage 3a chronic kidney disease N18.31 Chronic kidney disease stage: stage 3 (moderate) Chronic kidney disease stage 3 subtype: stage 3a (GFR 45-59)
[2023-09-04 16:59] LABS: LAB Peripheral Smear Sent for Review
[2023-09-04 17:13] LABS: Glucose Point of Care 168 mg/dL (70-110)
[2023-09-04 17:15] LABS: Hematocrit 32.3 % (36-47); Retic Production Index 1.37; Reticulocyte % 1.7 % (0.5-2.0)
[2023-09-04 17:36] LABS: Ferritin 20 ng/mL (15-150); Iron 9 ug/dL (37-145); Lactate Dehydrogenase 177 U/L (135-214); Percent Saturation 3.8 % (20-50); Total Iron Binding Capacity 234 mcg/dl; Unsaturated Iron Binding 225 ug/dL (112-347)
[2023-09-04] MEDS: propofol 1,000 MG/100 ML INJ 50 MG IV (17:37)
[2023-09-04] MEDS: atorvastatin 40 mg Tablet PO (20:28)
[2023-09-04] MEDS: venlafaxine ER (24HR) 150 mg Capsule PO (20:28)
[2023-09-04] MEDS: venlafaxine ER (24HR) 75 mg Capsule PO (20:28)
[2023-09-04] MEDS: aspirin 81 mg EC Tablet PO (20:28)
[2023-09-04 20:37] LABS: Glucose Point of Care 127 mg/dL (70-110)
[2023-09-04 22:14] LABS: Magnesium 2.3 mg/dL (1.7-2.3)
[2023-09-04] MEDS: propofol 1,000 MG/100 ML INJ 30 MG IV (23:51)
[2023-09-05] VITALS (37 sets, daily range): BP systolic 110–172; BP diastolic 52–98; PULSE 78–109; RESP 10–18; TEMP 36.4–37.1; O2SAT 89–99
[2023-09-05] MEDS: chlorhexidine gluconate 4% Btl 118 mL 1 APPLIC TOPICAL (00:09)
[2023-09-05] MEDS: heparin 5,000 unit/mL INJ 1 mL 5000 UNIT SUBCUT ×2 (02:48→13:38)
[2023-09-05] MEDS: ipratropium-albuterol 3 mL Neb INHALATION ×5 (03:13→19:50)
[2023-09-05 04:26] LABS: Basophils % 0.1 %; Hematocrit 30.3 % (36-47); Lymphocytes # 0.3 10^3/uL (0.8-4.8); Mean Corpuscular HGB Conc 30.4 g/dL (30-55); Mean Corpuscular Hemoglobin 25.8 pg (27-33); Mean Corpuscular Volume 84.9 fl (85-98); Mean Platelet Volume 10.3 fL (7.4-10.4); Monocytes # 0.1 10^3/uL (0.2-0.9); Neutrophils % 95.3 %; Nucleated Red Blood Cells % 0 %; Platelet Count 226 10^3/cmm (157-399); Red Blood Count 3.57 10^6/uL (3.85-5.65); Red Cell Distribution Width 16.6 % (12.1-15.1); White Blood Count 10.07 10^3/uL (3.29-11.43)
[2023-09-05 04:44] LABS: Alanine Aminotransferase 11 U/L (0-33); Albumin Level 2.7 g/dL (3.5-5.2); Alkaline Phosphatase 99 U/L (35-105); Anion Gap 16.7 (5-19); Aspartate Amino Transferase 49 U/L (0-32); Blood Urea Nitrogen 48 mg/dL (8-23); Calcium 8.6 mg/dL (8.5-10.5); Carbon Dioxide 21 mmol/L (22-29); Chloride 106 mmol/L (98-107); Creatinine Clr Calc Pharmacy 27.3102; Globulin 2.7 g/dL (1.3-4.6); Glucose 175 mg/dL (65-115); Osmolality Calculated 305 mOsm/kg (285-295); Potassium 4.7 mmol/L (3.5-5.1); Sodium 139 mmol/L (136-145); Total Bilirubin 0.2 mg/dL (0.15-1.2); Total Protein 5.4 g/dL (6.6-8.7)
[2023-09-05] MEDS: propofol 1,000 MG/100 ML INJ 30 MG IV (04:58)
[2023-09-05] MEDS: budesonide 0.5 mg/2 mL Neb INHALATION ×2 (07:27→19:50)
[2023-09-05] MEDS: fentaNYL 1,000 MCG/100 ML BAG 2.5 MCG IV (07:58)
[2023-09-05] MEDS: insulin lispro 100 unit/1 mL SUBCUT ×2 (08:09→17:10)
[2023-09-05] MEDS: clopidogrel 75 mg Tablet PO (08:09)
[2023-09-05] MEDS: hyDRALAzine 50 mg Tablet PO ×2 (08:09→17:09)
[2023-09-05] MEDS: methIMAzole 5 MG Tablet PO (08:09)
[2023-09-05] MEDS: isosorbide mononitrate ER 60 mg Tablet PO ×2 (08:09→17:09)
[2023-09-05] MEDS: metoprolol tartrate 25 mg Tablet PO ×2 (08:09→20:33)
[2023-09-05] MEDS: methylPREDNISolone sod succ 125 mg/2 mL INJ 60 MG IVP (09:48)
[2023-09-05] MEDS: albumin 25 G/100 ML BAG 60 G IV (10:26)
--- NOTE | 2023-09-05 10:48 | PC.NURSE ---
weaning medication at this time preparing to wean vent oral care done
--- NOTE | 2023-09-05 10:49 | PC.NURSE ---
sedation ,propofol off placed on cpap per vent , awake and alert somewhat anxious permission obtained for kael
[2023-09-05 11:30] LABS: Glucose Point of Care 203 mg/dL (70-110)
[2023-09-05 11:30] LABS: Glucose Point of Care 89 mg/dL (70-110)
[2023-09-05] MEDS: meropenem 1,000 MG in sodium chloride 0.9% (plus) 50 ML 100 MG IV ×2 (12:17→23:09)
--- NOTE | 2023-09-05 12:21 | PC.NURSE ---
Addendum entered by GLADYS Landon 09/05/23 12:24: Witnessed wasted medications. Original Note: extubated at this time wasted versed 99cc in room ,, fentynl 95 cc and propfol infused
--- NOTE | 2023-09-05 13:01 | P.PN_ITS ---
Vitals/I&O/Wt Last Vital Signs Temp 98 F 09/05/23 10:00 Pulse 93 09/05/23 11:08 Resp 10 L 09/05/23 11:44 BP 117/53 09/05/23 10:00 Pulse Ox 96 09/05/23 11:44 O2 Del Method Mechanical Ventilation 09/05/23 11:00 O2 Flow Rate 6 09/03/23 08:50 FiO2 30 09/05/23 11:00 09/04/23 09/05/23 09/05/23 22:59 06:59 14:59 Intake Total 341.000 / 559.625 100 / 659.625 446.108 / 446.108 Output Total 200 / 600 150 / 750 Balance 141.000 / -40.375 -50 / -90.375 446.108 / 446.108 Weight last 48 hrs Weight 62.369 kg Physical Exam 2 Const: GENERAL APPEARANCE: cooperative and patient mechanically ventilated ORIENTATION/CONSCIOUSNESS: Yes awake HENMT: COMMON NORMALS: oropharynx normal Neck/C-Spine: COMMON NORMALS: no JVD Resp: COMMON NORMALS: normal respiratory effort and clear to auscultation bilaterally AUSCULTATION: clear to auscultation bilaterally Cardio: COMMON NORMALS: no JVD, regular rhythm, S1 normal heart sound present, S2 normal heart sound present and No murmurs present (Cardio) RHYTHM: regular rhythm HEART SOUNDS: S1 normal heart sound present and S2 normal heart sound present GI: COMMON NORMALS: Normal to inspection, nondistended, normoactive bowel sounds present, Soft to palpation and non-tender PALPATION: Yes Soft to palpation Extremity: COMMON NORMALS: no joint enlargement and no pedal edema Neuro: COMMON NORMALS: moves all extremities Skin: COMMON NORMALS: no rashes or lesions noted GENERAL SKIN EXAM: no rashes or lesions noted Urinary Catheter Management: Munson: Cath Placed During This Visit: yes Reason for Continuing Indwelling Catheter: Accurate Measurement of Urinary Output in Critically Ill Patients Urinary Catheter Date of Insertion: 09/03/23 Data 09/05/23 04:11 09/05/23 04:11 Micro: Microbiology 09/03/23 10:54 Urine Culture - Final Urine,Clean Catch Klebsiella oxytoca 09/03/23 09:26 Gram Stain - Final Sputum - Endotracheal Tube Aspirate Sputum Culture - Final 09/03/23 09:44 Blood Culture - Preliminary Blood NEGATIVE TO DATE 09/03/23 09:37 Blood Culture - Preliminary Blood NEGATIVE TO DATE A&P Assessment and plan (1) Acute respiratory failure with hypoxia: Reviewed vitals, CBC, CMP, magnesium, mechanical ventilator settings, discussed with respiratory therapist, she is doing much better today, breathing trial, RSBI 30s-40s, decision to proceed with extubation. Extubated to 2 L nasal cannula, per report so far maintaining saturation 96%. Discussed may even decrease if maintaining oxygen targeting sats 88-92% given COPD, CO2 retention on presentation. Will decrease Solu-Medrol dose to 40 mg. Continue empiric antibiotics with meropenem. Noted DOLORES, stop vancomycin for now. Reviewed MRSA PCR, noted pending. Follow-up result. Continue treatment of severe exacerbation of COPD, possible pneumonia, with underlying CHF, initially with possible component of decompensated CHF. Reassess volume status. Further diuresis on hold with DOLORES. Underlying EF 35%. History of PE, though currently does not appear to show signs to suggest active PE. Was transition to subcutaneous heparin while in the hospital. Is noted to have some acute anemia 9.5 will not escalate anticoagulation for the time being. Check Hemoccult. Continue PPI. Monitor for any active bleeding. No reports of hematochezia or melanotic stools, no bloody secretions and no GI or ET suctioning. No hematuria. Noted microcytic anemia, possibly of underlying chronic DEBORAH. Check Hemoccult. At current time no suggestion of hemolysis. Follow-up bilirubin, CBC. Check LDH, haptoglobin, reticulocyte, peripheral smear. Platelet level is okay. (2) DOLORES (acute kidney injury): Reviewed BUN, creatinine, anion gap, bicarb, potassium, magnesium, noted DOLORES, creatinine up to 2.4, BUN 48. Possibly prerenal. Reviewed blood pressures, noted without hypotension. Hold off any additional diuretics. Reviewed albumin, noted low, 2.7. Will give albumin infusion. Additionally stop vancomycin. Follow-up MRSA PCR. Obtain kidney ultrasound. Follow-up renal function. Monitor MARY ANNE. (3) Anemia: Further slight worsening of anemia down to 9.2 and hemoglobin, reviewed hemoglobin, platelets. Platelets are normal. Reviewed iron studies TIBC, reviewed ferritin. Noted iron deficiency anemia. Chronically on anticoagulation with Eliquis. Will need follow-up for additional assessment of iron deficiency anemia, endoscopy to rule out malignancy, other causes. Increase Protonix to twice daily. For now continue with low-dose heparin prophylaxis but low threshold to discontinue. Follow-up CBC due to risk of bleeding. Will give IV iron supplementation for now. Transition to oral iron at discharge. Will need follow-up for additional workup of iron deficiency anemia. Reviewed haptoglobin, LDH, T. bili, reticulocyte, platelet level, not suggestive of hemolysis. Follow-up CBC (4) Acute exacerbation of chronic obstructive airways disease: As above. Treatment for COPD exacerbation. Decrease Solu-Medrol dose. DuoNeb every 4 hours Budesonide twice daily Empiric antibiotic coverage with meropenem. (5) Acute exacerbation of CHF (congestive heart failure): As above, noted worsening renal function. Hold off additional diuretics. Reassess volume status. There is concern for acute congestive heart failure. She has a known EF of around 35%, and ischemic cardiomyopathy. No IV fluids Close follow-up of creatinine, respiratory status tomorrow. It appears like her creatinine is baseline at 1.9. Hold Entresto currently (6) Diabetes mellitus: Patient has diabetes. Obviously steroids will increase blood sugar. Mild sliding scale insulin. No evidence of DKA. Decrease steroid dose. Reviewed Accu-Cheks. Follow-up. (7) CAD (coronary artery disease): Patient with significant coronary disease, but no ability to do intervention on recent angiogram Continue aspirin, Plavix, statin. Restart Imdur as tolerated by blood pressure. Continue beta-lexy. Qualifiers: Associated angina: without angina Coronary Disease-Associated Artery/Lesion type: [place] artery [place] vs. transplanted heart: [place] heart Qualified Code(s): I25.10 - Atherosclerotic heart disease of [place] coronary artery without angina pectoris (8) HTN (hypertension): Continue home blood pressure medication as tolerated, but will have to monitor closely secondary to sedation for ventilator Qualifiers: Hypertension type: primary hypertension Qualified Code(s): I10 - Essential (primary) hypertension (9) Chronic kidney disease: DOLORES on CKD as above. Avoid renal toxic medication BMP daily Qualifiers: Chronic kidney disease stage: stage 3 (moderate) Chronic kidney disease stage 3 subtype: stage 3a (GFR 45-59) Qualified Code(s): N18.31 - Chronic kidney disease, stage 3a Plan UTI: Urine culture reviewed, growing Klebsiella. Covered with meropenem. Past history of PE. She is on Eliquis at home. Multiple other medical problems as outlined in past medical history Full code currently SCDs for DVT prophylaxis. Eliquis at home will be changed to subcutaneous heparin currently. Troponin is not significantly elevated considering circumstances and renal function. Unremarkable trend on review. Protonix for GI prophylaxis A cousin who helps to attend her needs here. She reports she had had some shortness of breath in the last week. She had not been complaining of any abdominal pain, fever. Attestations 2 Medical Necessity Statement*: Continue admission for assessment management of respiratory failure, COPD exacerbation, possible pneumonia, CHF, worsening renal function, and lady with underlying CAD, CKD, additional medical problems. Coding Level of Care Code Critical Care >/= 30 minutes Critical care time (in minutes): 40 The high probability of a clinically significant, sudden or life threatening deterioration, as referenced in this documentation, required my full and direct attention, intervention and personal management. The critical care time shown is in addition to time spent performing any reported separately billable procedures and includes the following: [x] Data and vital sign review and interpretation [x ] Patient assessment, examination and intervention [x] Medication orders and management [x] Patient/Family updates as able [x] Care Coordination and Documentation. Diagnoses Acute respiratory failure with hypoxia J96.01 DOLORES (acute kidney injury) N17.9 Anemia D64.9 Acute exacerbation of chronic obstructive airways disease J44.1 Acute exacerbation of CHF (congestive heart failure) I50.9 Diabetes mellitus E11.9 Coronary artery disease involving [place] coronary artery of [place] heart without angina pectoris I25.10 Associated angina: without angina Coronary Disease-Associated Artery/Lesion type: [place] artery [place] vs. transplanted heart: [place] heart Primary hypertension I10 Hypertension type: primary hypertension Stage 3a chronic kidney disease N18.31 Chronic kidney disease stage: stage 3 (moderate) Chronic kidney disease stage 3 subtype: stage 3a (GFR 45-59)
--- NOTE | 2023-09-05 13:05 | USR_ITS ---
PROCEDURE INFORMATION: Exam: US Retroperitoneal; Complete; Kidneys and Bladder Exam date and time: 09/05/2023 2:08 PM Age: 72 years old Clinical indication: Condition or disease; Other: Scooter TECHNIQUE: Imaging protocol: Real-time ultrasound of the retroperitoneum with image documentation. Complete exam focused on the kidneys and bladder. COMPARISON: US renal BI* [id number] 06/29/2022 4:31 PM FINDINGS: Right kidney: The right kidney measures 6.6 x 4.3 x 3.8 centimeters, right renal cortex measures 0.8 centimeters. Left kidney: The left kidney measures 8.8 x 5.2 x 3.6 centimeters, the left renal cortex measures 1.2 centimeters. Left upper pole renal cyst measuring 1.5 centimeters. Aorta: Ectatic dilatation of the aorta measuring up to 2.3 centimeters. Urinary bladder: Bladder decompressed with Munson in place. Other findings: No hydronephrosis, or obstructing nephroureterolithiasis. Right upper pole simple anechoic cyst measuring 1.5 centimeters. US/US renal BI* [id number] IMPRESSION: 1. No hydronephrosis, or obstructing nephroureterolithiasis. 2. Ectatic dilatation of the aorta measuring up to 2.3 centimeters.
[2023-09-05] MEDS: pantoprazole 40 mg SDV IVP ×2 (13:39→23:08)
[2023-09-05] MEDS: iron sucrose 200 MG in sodium chloride 0.9% (100 ml) 100 ML 220 MG IV (13:59)
[2023-09-05 17:08] LABS: Glucose Point of Care 190 mg/dL (70-110)
[2023-09-05] MEDS: methylPREDNISolone sod succ 40 mg/mL INJ IVP (20:33)
[2023-09-05] MEDS: venlafaxine ER (24HR) 150 mg Capsule PO (20:33)
[2023-09-05] MEDS: aspirin 81 mg EC Tablet PO (20:33)
[2023-09-05] MEDS: atorvastatin 40 mg Tablet PO (20:33)
[2023-09-05] MEDS: venlafaxine ER (24HR) 75 mg Capsule PO (20:33)
[2023-09-05 21:24] LABS: Glucose Point of Care 128 mg/dL (70-110)
[2023-09-06] VITALS (18 sets, daily range): BP systolic 100–153; BP diastolic 58–78; PULSE 72–88; RESP 16–20; TEMP 36.2–36.7; O2SAT 87–99
[2023-09-06] MEDS: ipratropium-albuterol 3 mL Neb INHALATION ×6 (00:01→20:33)
[2023-09-06] MEDS: heparin 5,000 unit/mL INJ 1 mL 5000 UNIT SUBCUT (01:46)
[2023-09-06 04:03] LABS: Hematocrit 30.5 % (36-47); Lymphocytes # 0.6 10^3/uL (0.8-4.8); Lymphocytes % 6.8 %; Mean Corpuscular HGB Conc 30.2 g/dL (30-55); Mean Corpuscular Hemoglobin 25.3 pg (27-33); Mean Corpuscular Volume 83.8 fl (85-98); Mean Platelet Volume 10.8 fL (7.4-10.4); Monocytes # 0.2 10^3/uL (0.2-0.9); Monocytes % 2.5 %; Neutrophils # 8.09 10^3/uL (1.8-7.7); Neutrophils % 90.1 %; Nucleated Red Blood Cells % 0 %; Platelet Count 262 10^3/cmm (157-399); Red Blood Count 3.64 10^6/uL (3.85-5.65); Red Cell Distribution Width 16.4 % (12.1-15.1); White Blood Count 8.97 10^3/uL (3.29-11.43)
[2023-09-06 04:19] LABS: Alanine Aminotransferase 17 U/L (0-33); Albumin Level 3.3 g/dL (3.5-5.2); Alkaline Phosphatase 130 U/L (35-105); Anion Gap 19.3 (5-19); Aspartate Amino Transferase 73 U/L (0-32); Blood Urea Nitrogen 64 mg/dL (8-23); Carbon Dioxide 20 mmol/L (22-29); Chloride 107 mmol/L (98-107); Creatinine Clr Calc Pharmacy 20.7404; Globulin 2.6 g/dL (1.3-4.6); Glucose 226 mg/dL (65-115); Osmolality Calculated 317 mOsm/kg (285-295); Potassium 5.3 mmol/L (3.5-5.1); Sodium 141 mmol/L (136-145); Total Bilirubin 0.3 mg/dL (0.15-1.2); Total Protein 5.9 g/dL (6.6-8.7)
[2023-09-06 06:36] LABS: Glucose Point of Care 169 mg/dL (70-110)
[2023-09-06] MEDS: budesonide 0.5 mg/2 mL Neb INHALATION ×2 (07:43→20:33)
[2023-09-06] MEDS: insulin lispro 100 unit/1 mL SUBCUT ×2 (08:51→18:50)
[2023-09-06] MEDS: clopidogrel 75 mg Tablet PO (08:51)
[2023-09-06] MEDS: isosorbide mononitrate ER 60 mg Tablet PO ×2 (08:51→18:45)
[2023-09-06] MEDS: hyDRALAzine 50 mg Tablet PO ×2 (08:51→18:45)
[2023-09-06] MEDS: methIMAzole 5 MG Tablet PO (08:51)
[2023-09-06] MEDS: metoprolol tartrate 25 mg Tablet PO (08:51)
[2023-09-06] MEDS: pantoprazole 40 mg SDV IVP ×2 (08:52→20:20)
[2023-09-06] MEDS: methylPREDNISolone sod succ 40 mg/mL INJ IVP (08:52)
--- NOTE | 2023-09-06 09:35 | PC.CHAP ---
Pastoral Care Encounter/Spiritual Assessment Type of Contact [] Declined cleater visit [] Patient/Family/Request visit [] Outpatient visit [] Follow-up visit [] Physician referral [] Code/Alert [x] Routine visit [] Staff referral [] Actively dying [] Patient sleeping [] Family support [] [] Out of room [] Palliative care [] [] Receiving care in room [] Pre-surgical visit [] Trauma [] Long length of stay [] ICU visit [] Other: Relational/Emotional Strength [] Patient feels connected with others/family/visitors/staff [] Distress [] Loneliness/isolation [] Abandonment Spirituality of Patient [] Person of Evelin [] Attends Jainism of their Evelin [] Believes in Prayer [] Reads Bible or Adventist materials [] There are Spiritual issues to be addressed Sales Account Director Interventions [x] Prayer [] Active listening [] Non-anxious presence [] Spiritual/emotional support [] Crisis/trauma care [] Spiritual counseling [] Bereavement support [] Provided bereavement packet [] Provided Bible/devotional materials [] Provided toy/stuffed animal, coloring book to patient or family member [] Provided Communion [] Anointing/[place] [] Salvation [] Completed spiritual assessment [] Other: Impact on Illness or Injury [] Angry [] Fearful [] Anxious [] Often cries [] Exhaustion [] Unable to work [] Unable to attend islam [] Unable to walk/stand [] Unable to read [] Unable to drive [] Unable to eat/drink [] Unable to sleep [] Unable to be with family [] Patient intubated [] Other: Summary sleep Time spent with patient
--- NOTE | 2023-09-06 10:55 | PC.SOCIAL ---
Pg 2 IMM Explained to pt Pg 2 IMM. No questions voiced. Copy provided to pt. Initialed, dated, & timed a copy & placed in chart.
[2023-09-06 10:58] LABS: Glucose Point of Care 72 mg/dL (70-110)
[2023-09-06 11:25] LABS: Glucose Point of Care 66 mg/dL (70-110)
[2023-09-06 12:16] LABS: Glucose Point of Care 81 mg/dL (70-110)
[2023-09-06] MEDS: calcium gluconate 0.9% NaCL 1 GM/50 ML PREMIX IV (12:32)
[2023-09-06 12:35] LABS: Methicillin-Resist S.aureu PCR NOT DETECTED (NOT DETECTED)
--- NOTE | 2023-09-06 12:40 | PC.NURSE ---
Attempted to call report to Andrzej Patel. Nurse not available as she is changing a dressing. Will call back in 15 minutes.
[2023-09-06] MEDS: FUROsemide 10 mg/mL SDV 4mL 40 MG IVP (12:51)
--- NOTE | 2023-09-06 14:54 | PM.PN ---
Subjective Subjective: Hospital course, labs appreciated. Examination patient seen on [facility] floor. Laying comfortably in bed. On full dysphoric [place] mentation saturating more than 92%. Denies any nausea vomiting, headache. States she is still having difficulty with her breathing with episodes of cough and expectoration. States overall she is improving though. States she is fairly weak. Vitals/I&O/Wt Last Vital Signs Temp 97.1 F L 09/06/23 12:44 Pulse 78 09/06/23 12:44 Resp 18 09/06/23 12:44 BP 127/74 09/06/23 12:44 Pulse Ox 95 09/06/23 12:44 O2 Del Method Nasal Cannula 09/06/23 12:44 O2 Flow Rate 4 09/06/23 11:46 FiO2 30 09/05/23 11:00 09/05/23 09/06/23 09/06/23 22:59 06:59 14:59 Intake Total 820 / 1416.108 170 / 1586.108 720 / 720 Output Total 350 / 700 300 / 1000 Balance 470 / 716.108 -130 / 586.108 720 / 720 Weight last 48 hrs Weight 62.006 kg Weight 62.369 kg Physical Exam Narrative: General: No acute distress, AO x3, chronically sick appearing HEENT: PERRLA, pupils bilaterally equal and reactive Chest: Bilateral bronchial breath sounds all over lung manning with occasional rhonchi in posterior close present, fine crackles in bilateral lower zone CVS: S1-S2 regular, soft pansystolic murmur at apex radiating to axilla Urmurs, no tachycardia, no gallops, no rubs, JVD mildly elevated Abdomen: Soft, nontender, no organomegaly, bowel sounds present Neuro: No focal deficits, no facial deformity, AO x3, power 5/5 in all limbs Urinary Catheter Management: Munson: Cath Placed During This Visit: yes Reason for Continuing Indwelling Catheter: Other Urinary Catheter Date of Insertion: 09/03/23 Data 09/06/23 03:35 09/06/23 03:35 Micro: Microbiology 09/03/23 10:54 Urine Culture - Final Urine,Clean Catch Klebsiella oxytoca 09/03/23 09:26 Gram Stain - Final Sputum - Endotracheal Tube Aspirate Sputum Culture - Final A&P Assessment and plan (1) Acute respiratory failure with hypoxia: In setting of COPD exacerbation. Extubated on 09/04. Wean supplementation keeping saturation over 90%. C/w pulmicort, duoneb Q4h. Wean solumedrol to 20 mg Q12h. Patient does have history of congestive heart failure as well. With last echocardiogram done in 2022 showing an EF of 35%, global hypokinesia with grade 1 diastolic dysfunction, moderate MR. Cannot rule out mild component of congestive heart failure. IV Lasix 40 mg one-time. Strict input output charting. Daily weights. Sputum culture negative. MRSA swab negative. Continue to hold off on vancomycin. Switch from meropenem to IV ceftriaxone 1 g daily. Does have history of pulmonary embolism. Currently suspicion of PE low. No D-dimer or CTA done since admission. If shows worsening oxygenation will plan. (2) DOLORES (acute kidney injury): History of CKD. Creatinine up to 2.1-2.4 in the past. Currently 2.4 today. Stable. Continue to monitor BMP daily. Medical reconstruction done for nephrotoxic drugs. Appreciate renal ultrasound. (3) Anemia: Hemoglobin stable at 9.2. No signs of active bleeding. Has remained stable over the last 3 days. Concerns for iron deficiency anemia. Platelets stable. Restart home dose of Eliquis. Continue with Protonix twice daily. Labs not suggestive for hemolysis. (4) Acute exacerbation of chronic obstructive airways disease: As above. (5) Acute exacerbation of CHF (congestive heart failure): As above. (6) Diabetes mellitus: Last known A1c of 7.4. Continue with insulin sliding scale. (7) CAD (coronary artery disease): Patient with significant coronary disease, but no ability to do intervention on recent angiogram Continue aspirin, Plavix, statin. Restart Imdur as tolerated by blood pressure. Continue beta-lexy. Qualifiers: Associated angina: without angina Coronary Disease-Associated Artery/Lesion type: [place] artery [place] vs. transplanted heart: [place] heart Qualified Code(s): I25.10 - Atherosclerotic heart disease of [place] coronary artery without angina pectoris (8) HTN (hypertension): Goal blood pressure less than 140/90 mmHg. Blood pressure so far stable on home dose of hydralazine, Imdur, metoprolol. Holding off on Entresto for now. Qualifiers: Hypertension type: primary hypertension Qualified Code(s): I10 - Essential (primary) hypertension (9) Chronic kidney disease: As above. Qualifiers: Chronic kidney disease stage: stage 3 (moderate) Chronic kidney disease stage 3 subtype: stage 3a (GFR 45-59) Qualified Code(s): N18.31 - Chronic kidney disease, stage 3a Plan UTI: Urine culture reviewed, growing Klebsiella. Covered with meropenem. Full code Protonix will be sufficient for PUD prophylaxis Eliquis will be sufficient for DVT prophylaxis. Discharge plan: Plan to discharge home. Patient is not agreeable to SNF. Patient does have concerns for physical deconditioning. PT evaluation awaited. Will plan for home with home health accordingly. Attestations Medical Necessity Statement*: Requires further hospitalization for management of postextubation care in a patient admitted for respiratory failure in setting of COPD exacerbation, congestive heart failure while safe discharge planning is sought. Diagnoses Acute respiratory failure with hypoxia J96.01 DOLORES (acute kidney injury) N17.9 Anemia D64.9 Acute exacerbation of chronic obstructive airways disease J44.1 Acute exacerbation of CHF (congestive heart failure) I50.9 Diabetes mellitus E11.9 Coronary artery disease involving [place] coronary artery of [place] heart without angina pectoris I25.10 Associated angina: without angina Coronary Disease-Associated Artery/Lesion type: [place] artery [place] vs. transplanted heart: [place] heart Primary hypertension I10 Hypertension type: primary hypertension Stage 3a chronic kidney disease N18.31 Chronic kidney disease stage: stage 3 (moderate) Chronic kidney disease stage 3 subtype: stage 3a (GFR 45-59)
[2023-09-06] MEDS: cefTRIAXone 1,000 MG in sodium chloride 0.9% (plus) 50 ML 100 MG IV (16:20)
[2023-09-06] MEDS: ALPRAZolam 0.5 mg Tablet 0.25 MG PO (16:20)
[2023-09-06 16:41] LABS: Glucose Point of Care 229 mg/dL (70-110)
[2023-09-06] MEDS: ferrous gluconate 324 mg Tablet PO (18:45)
[2023-09-06] MEDS: apixaban 5 mg Tablet 2.5 MG PO (18:45)
[2023-09-06] MEDS: methylPREDNISolone sod succ 40 mg/mL INJ 20 MG IVP (18:46)
[2023-09-06 19:49] LABS: Anion Gap 17.9 (5-19); Blood Urea Nitrogen 74 mg/dL (8-23); Calcium 9.2 mg/dL (8.5-10.5); Carbon Dioxide 21 mmol/L (22-29); Chloride 109 mmol/L (98-107); Glucose 255 mg/dL (65-115); Osmolality Calculated 325 mOsm/kg (285-295); Potassium 5.9 mmol/L (3.5-5.1); Sodium 142 mmol/L (136-145)
[2023-09-06] MEDS: venlafaxine ER (24HR) 150 mg Capsule PO (20:19)
[2023-09-06] MEDS: venlafaxine ER (24HR) 75 mg Capsule PO (20:19)
[2023-09-06] MEDS: atorvastatin 40 mg Tablet PO (20:19)
[2023-09-06 20:33] LABS: Glucose Point of Care 203 mg/dL (70-110)
[2023-09-07] VITALS (15 sets, daily range): BP systolic 116–169; BP diastolic 49–77; PULSE 63–91; RESP 16–22; TEMP 36.4–36.8; O2SAT 92–99; BMI 28.9
[2023-09-07] MEDS: ipratropium-albuterol 3 mL Neb INHALATION ×7 (00:19→23:35)
[2023-09-07 04:48] LABS: Hematocrit 29.9 % (36-47); Lymphocytes # 1.1 10^3/uL (0.8-4.8); Lymphocytes % 16.4 %; Mean Corpuscular HGB Conc 30.1 g/dL (30-55); Mean Corpuscular Hemoglobin 25.6 pg (27-33); Mean Corpuscular Volume 85.2 fl (85-98); Mean Platelet Volume 10.5 fL (7.4-10.4); Monocytes # 0.4 10^3/uL (0.2-0.9); Monocytes % 6.7 %; Neutrophils % 76.4 %; Nucleated Red Blood Cells % 0 %; Platelet Count 235 10^3/cmm (157-399); Red Blood Count 3.51 10^6/uL (3.85-5.65); Red Cell Distribution Width 16.5 % (12.1-15.1); White Blood Count 6.41 10^3/uL (3.29-11.43)
[2023-09-07 05:07] LABS: Alanine Aminotransferase 13 U/L (0-33); Albumin Level 3.3 g/dL (3.5-5.2); Alkaline Phosphatase 98 U/L (35-105); Anion Gap 16.6 (5-19); Aspartate Amino Transferase 38 U/L (0-32); Blood Urea Nitrogen 75 mg/dL (8-23); Calcium 9.2 mg/dL (8.5-10.5); Carbon Dioxide 21 mmol/L (22-29); Chloride 111 mmol/L (98-107); Creatinine Clr Calc Pharmacy 16.7371; Globulin 2.3 g/dL (1.3-4.6); Glucose 134 mg/dL (65-115); Osmolality Calculated 320 mOsm/kg (285-295); Potassium 5.6 mmol/L (3.5-5.1); Sodium 143 mmol/L (136-145); Total Bilirubin 0.2 mg/dL (0.15-1.2); Total Protein 5.6 g/dL (6.6-8.7)
[2023-09-07] MEDS: methylPREDNISolone sod succ 40 mg/mL INJ 20 MG IVP ×2 (05:16→17:19)
[2023-09-07 06:38] LABS: Glucose Point of Care 117 mg/dL (70-110)
[2023-09-07] MEDS: budesonide 0.5 mg/2 mL Neb INHALATION ×2 (08:12→19:44)
[2023-09-07] MEDS: apixaban 5 mg Tablet 2.5 MG PO ×2 (09:10→17:19)
[2023-09-07] MEDS: ferrous gluconate 324 mg Tablet PO ×2 (09:10→17:19)
[2023-09-07] MEDS: methIMAzole 5 MG Tablet PO (09:10)
[2023-09-07] MEDS: pantoprazole 40 mg SDV IVP ×2 (09:10→21:03)
[2023-09-07] MEDS: clopidogrel 75 mg Tablet PO (09:10)
[2023-09-07] MEDS: hyDRALAzine 50 mg Tablet PO ×2 (09:10→17:19)
[2023-09-07] MEDS: isosorbide mononitrate ER 60 mg Tablet PO ×2 (09:10→17:19)
[2023-09-07] MEDS: metoprolol tartrate 25 mg Tablet PO ×2 (09:10→21:04)
[2023-09-07] MEDS: sodium chloride 0.9% 1,000 ML 50 ML IV (09:11)
[2023-09-07] MEDS: insulin regular-human 10 UNIT in SYRINGE 1 EACH 0.100000000000000006 UNIT IVP ×2 (09:14→16:27)
[2023-09-07] MEDS: calcium gluconate 0.1 gm/mL 10% SDV 10mL 1 GM IVP (09:15)
--- NOTE | 2023-09-07 09:47 | PC.CHAP ---
Pastoral Care Encounter/Spiritual Assessment Type of Contact [] Declined foreign food cook specialty visit [] Patient/Family/Request visit [] Outpatient visit [] Follow-up visit [] Physician referral [] Code/Alert [x] Routine visit [] Staff referral [] Actively dying [] Patient sleeping [] Family support [] [] Out of room [] Palliative care [] [] Receiving care in room [] Pre-surgical visit [] Trauma [] Long length of stay [] ICU visit [] Other: Relational/Emotional Strength [x] Patient feels connected with others/family/visitors/staff [] Distress [] Loneliness/isolation [] Abandonment Spirituality of Patient [x] Person of Evelin [x] Attends Yazidi of their [place] [x] Believes in Prayer [x] Reads Bible or Methodist materials [] There are Spiritual issues to be addressed Compensation Associate Interventions [x] Prayer [x] Active listening [x] Non-anxious presence [x] Spiritual/emotional support [] Crisis/trauma care [] Spiritual counseling [] Bereavement support [] Provided bereavement packet [] Provided Bible/devotional materials [] Provided toy/stuffed animal, coloring book to patient or family member [] Provided Communion [] Anointing/[place] [] Salvation [x] Completed spiritual assessment [] Other: Impact on Illness or Injury [] Angry [] Fearful [] Anxious [] Often cries [] Exhaustion [] Unable to work [] Unable to attend anglican [] Unable to walk/stand [] Unable to read [] Unable to drive [] Unable to eat/drink [] Unable to sleep [] Unable to be with family [] Patient intubated [] Other: Summary Time spent with patient 10 min
--- NOTE | 2023-09-07 11:07 | P.PN_ITS ---
Subjective 2 Subjective: No acute events overnight. Patient did have episodes of anxiety yesterday when she felt she was out of breath though she was saturating more than 92%. Today morning examination remained to be in bed. Sat up in chair during breakfast without any difficulty today. Denies any nausea, vomiting, headache, chest pain. Has remained hemodynamically stable and afebrile. Saturating more than 95% on 2-1/2 L. Vitals/I&O/Wt Last Vital Signs Temp 97.5 F L 09/07/23 08:00 Pulse 81 09/07/23 08:14 Resp 20 H 09/07/23 08:14 BP 149/49 09/07/23 08:00 Pulse Ox 96 09/07/23 08:14 O2 Del Method Nasal Cannula 09/07/23 08:14 O2 Flow Rate 2.5 09/07/23 08:14 FiO2 30 09/05/23 11:00 09/06/23 09/07/23 09/07/23 22:59 06:59 14:59 Intake Total 460 / 1180 120 / 1300 480 / 480 Output Total 450 / 450 600 / 1050 Balance 10 / 730 -480 / 250 480 / 480 Weight last 48 hrs Weight 67.268 kg Weight 62.006 kg Physical Exam 2 Narrative: General: No acute distress, AO x3, chronically sick appearing HEENT: PERRLA, pupils bilaterally equal and reactive Chest: Bilateral bronchial breath sounds all over lung [place] with occasional rhonchi in posterior close present, fine crackles in bilateral lower zone CVS: S1-S2 regular, soft pansystolic murmur at apex radiating to axilla Urmurs, no tachycardia, no gallops, no rubs, JVD mildly elevated Abdomen: Soft, nontender, no organomegaly, bowel sounds present Neuro: No focal deficits, no facial deformity, AO x3, power 5/5 in all limbs Urinary Catheter Management: Munson: Cath Placed During This Visit: yes, but has since been removed by the nurse Reason for Continuing Indwelling Catheter: Other Urinary Catheter Date of Insertion: 09/03/23 Date Urinary Catheter Removed: 09/07/23 Time Urinary Catheter Discontinued: 09:20 Data 09/07/23 04:19 09/07/23 04:19 A&P Assessment and plan (1) Acute respiratory failure with hypoxia: In setting of COPD exacerbation. Extubated on 09/04. Wean supplementation keeping saturation over 90%. C/w pulmicort, duoneb Q4h. Wean solumedrol to 20 mg Q12h. Patient does have history of congestive heart failure as well. With last echocardiogram done in 2022 showing an EF of 35%, global hypokinesia with grade 1 diastolic dysfunction, moderate MR. Cannot rule out mild component of congestive heart failure. IV Lasix 40 mg one- time. Strict input output charting. Daily weights. Sputum culture negative. MRSA swab negative. Continue to hold off on vancomycin. Switch from meropenem to IV ceftriaxone 1 g daily. Does have history of pulmonary embolism. Currently suspicion of PE low. No D- dimer or CTA done since admission. If shows worsening oxygenation will plan. (2) DOLORES (acute kidney injury): History of CKD. Creatinine up to 2.1-2.4 in the past. Currently 2.4 today. Stable. Continue to monitor BMP daily. Medical reconstruction done for nephrotoxic drugs. Appreciate renal ultrasound. (3) Anemia: Hemoglobin stable at 9.2. No signs of active bleeding. Has remained stable over the last 3 days. Concerns for iron deficiency anemia. Platelets stable. Restart home dose of Eliquis. Continue with Protonix twice daily. Labs not suggestive for hemolysis. (4) Acute exacerbation of chronic obstructive airways disease: As above. (5) Acute exacerbation of CHF (congestive heart failure): As above. (6) Diabetes mellitus: Last known A1c of 7.4. Continue with insulin sliding scale. (7) CAD (coronary artery disease): Patient with significant coronary disease, but no ability to do intervention on recent angiogram Continue aspirin, Plavix, statin. Restart Imdur as tolerated by blood pressure. Continue beta-lxey. Qualifiers: Associated angina: without angina Coronary Disease-Associated Artery/Lesion type: [place] artery [place] vs. transplanted heart: [place] heart Qualified Code(s): I25.10 - Atherosclerotic heart disease of [place] coronary artery without angina pectoris (8) HTN (hypertension): Goal blood pressure less than 140/90 mmHg. Blood pressure so far stable on home dose of hydralazine, Imdur, metoprolol. Holding off on Entresto for now. Qualifiers: Hypertension type: primary hypertension Qualified Code(s): I10 - Essential (primary) hypertension (9) Chronic kidney disease: As above. Qualifiers: Chronic kidney disease stage: stage 3 (moderate) Chronic kidney disease stage 3 subtype: stage 3a (GFR 45-59) Qualified Code(s): N18.31 - Chronic kidney disease, stage 3a Plan UTI: Urine culture reviewed, growing Klebsiella. Covered with meropenem. Full code Protonix will be sufficient for PUD prophylaxis Eliquis will be sufficient for DVT prophylaxis. Plan for the day: Continue with current nebulization treatment. Hold off on weaning from steroids today. Oxygen supplementation keeping saturation more than 90%. Out of bed to chair. Continue with incentive spirometry and flutter valve. Patient clinically slightly dehydrated today. Start on gentle IV hydration with normal saline at 50 cc/h. Watch for fluid overload. DC Munson catheter. DC central line. Blood pressure stable. Continue with current antihypertensives. Discharge plan: Discussed in detail with patient again today. She states she does feel weak and would be agreeable to go to SNF for short-term for rehabitation. Case management alerted. Attestations 2 Medical Necessity Statement*: Requires further hospitalization for management of DOLORES on CKD, respiratory failure postextubation in setting of COPD exacerbation, UTI while safe discharge planning resort. Diagnoses Acute respiratory failure with hypoxia J96.01 DOLORES (acute kidney injury) N17.9 Anemia D64.9 Acute exacerbation of chronic obstructive airways disease J44.1 Acute exacerbation of CHF (congestive heart failure) I50.9 Diabetes mellitus E11.9 Coronary artery disease involving [place] coronary artery of [place] heart without angina pectoris I25.10 Associated angina: without angina Coronary Disease-Associated Artery/Lesion type: [place] artery [place] vs. transplanted heart: [place] heart Primary hypertension I10 Hypertension type: primary hypertension Stage 3a chronic kidney disease N18.31 Chronic kidney disease stage: stage 3 (moderate) Chronic kidney disease stage 3 subtype: stage 3a (GFR 45-59)
[2023-09-07 11:30] LABS: Glucose Point of Care 97 mg/dL (70-110)
[2023-09-07 14:41] LABS: Anion Gap 18.5 (5-19); Calcium 9.6 mg/dL (8.5-10.5); Carbon Dioxide 19 mmol/L (22-29); Chloride 107 mmol/L (98-107); Glucose 192 mg/dL (65-115); Osmolality Calculated 318 mOsm/kg (285-295); Potassium 5.5 mmol/L (3.5-5.1); Sodium 139 mmol/L (136-145)
[2023-09-07 14:47] LABS: Creatinine Clr Calc Pharmacy 16.7371
[2023-09-07 14:49] LABS: Blood Urea Nitrogen 81 mg/dL (8-23)
[2023-09-07] MEDS: cefTRIAXone 1,000 MG in sodium chloride 0.9% (plus) 50 ML 100 MG IV (15:59)
[2023-09-07 16:09] LABS: Glucose Point of Care 186 mg/dL (70-110)
[2023-09-07] MEDS: dextrose 10% 250 ML 1000 ML IV ×2 (16:27→16:51)
[2023-09-07] MEDS: insulin lispro 100 unit/1 mL SUBCUT ×2 (17:20→21:04)
[2023-09-07] MEDS: ALPRAZolam 0.5 mg Tablet 0.25 MG PO (19:02)
[2023-09-07 20:31] LABS: Glucose Point of Care 162 mg/dL (70-110)
[2023-09-07] MEDS: atorvastatin 40 mg Tablet PO (21:03)
[2023-09-07] MEDS: venlafaxine ER (24HR) 150 mg Capsule PO (21:03)
[2023-09-07] MEDS: venlafaxine ER (24HR) 75 mg Capsule PO (21:03)
[2023-09-08] VITALS (16 sets, daily range): BP systolic 164–178; BP diastolic 67–85; PULSE 82–105; RESP 16–22; TEMP 36.6–37.1; O2SAT 91–98
[2023-09-08] MEDS: ipratropium-albuterol 3 mL Neb INHALATION ×6 (03:24→23:26)
[2023-09-08 05:31] LABS: Eosinophils % 0.2 %; Hematocrit 31.7 % (36-47); Lymphocytes # 1.4 10^3/uL (0.8-4.8); Lymphocytes % 16.7 %; Mean Corpuscular HGB Conc 30.3 g/dL (30-55); Mean Corpuscular Hemoglobin 25.5 pg (27-33); Mean Corpuscular Volume 84.3 fl (85-98); Mean Platelet Volume 10.7 fL (7.4-10.4); Monocytes # 0.6 10^3/uL (0.2-0.9); Neutrophils % 75.9 %; Nucleated Red Blood Cells % 0 %; Platelet Count 236 10^3/cmm (157-399); Red Blood Count 3.76 10^6/uL (3.85-5.65); Red Cell Distribution Width 16.4 % (12.1-15.1); White Blood Count 8.31 10^3/uL (3.29-11.43)
[2023-09-08 05:47] LABS: Alanine Aminotransferase 23 U/L (0-33); Albumin Level 3.3 g/dL (3.5-5.2); Alkaline Phosphatase 134 U/L (35-105); Aspartate Amino Transferase 47 U/L (0-32); Blood Urea Nitrogen 74 mg/dL (8-23); Calcium 9.5 mg/dL (8.5-10.5); Carbon Dioxide 21 mmol/L (22-29); Chloride 109 mmol/L (98-107); Creatinine Clr Calc Pharmacy 19.7802; Globulin 2.7 g/dL (1.3-4.6); Glucose 112 mg/dL (65-115); Osmolality Calculated 313 mOsm/kg (285-295); Sodium 140 mmol/L (136-145); Total Bilirubin 0.3 mg/dL (0.15-1.2)
[2023-09-08] MEDS: methylPREDNISolone sod succ 40 mg/mL INJ 20 MG IVP ×2 (06:08→09:17)
[2023-09-08 06:30] LABS: Glucose Point of Care 105 mg/dL (70-110)
[2023-09-08] MEDS: pantoprazole 40 mg SDV IVP ×2 (08:06→21:21)
[2023-09-08] MEDS: metoprolol tartrate 25 mg Tablet PO (08:07)
[2023-09-08] MEDS: isosorbide mononitrate ER 60 mg Tablet PO ×2 (08:07→17:03)
[2023-09-08] MEDS: clopidogrel 75 mg Tablet PO (08:07)
[2023-09-08] MEDS: methIMAzole 5 MG Tablet PO (08:07)
[2023-09-08] MEDS: hyDRALAzine 50 mg Tablet PO ×3 (08:07→21:21)
[2023-09-08] MEDS: apixaban 5 mg Tablet 2.5 MG PO ×2 (08:07→17:03)
[2023-09-08] MEDS: ferrous gluconate 324 mg Tablet PO ×2 (08:07→17:03)
[2023-09-08] MEDS: budesonide 0.5 mg/2 mL Neb INHALATION ×2 (08:47→20:25)
[2023-09-08] MEDS: sodium chloride 0.9% 1,000 ML 50 ML IV (09:17)
[2023-09-08] MEDS: carvedilol 6.25 mg Tablet PO ×2 (09:17→17:03)
[2023-09-08 10:47] LABS: Glucose Point of Care 216 mg/dL (70-110)
[2023-09-08] MEDS: insulin regular-human 10 UNIT in SYRINGE 1 EACH IVP (10:54)
[2023-09-08] MEDS: dextrose 10% 250 ML IV (10:54)
--- NOTE | 2023-09-08 11:01 | P.PN_ITS ---
Subjective 2 Subjective: No acute events overnight. Patient states she is feeling better. Sitting up in chair. Working with physical therapy. Denies any nausea, ting, headache. Currently on 2 L of oxygen supplementation saturating 92%. Vitals/I&O/Wt Last Vital Signs Temp 98 F 09/08/23 08:00 Pulse 100 09/08/23 08:00 Resp 16 09/08/23 08:00 BP 171/72 09/08/23 08:00 Pulse Ox 92 09/08/23 08:00 O2 Del Method Nasal Cannula 09/08/23 08:00 O2 Flow Rate 2 09/08/23 08:00 FiO2 30 09/05/23 11:00 09/07/23 09/08/23 09/08/23 22:59 06:59 14:59 Intake Total 910.1 / 1750.2 1150.833 / 2901.033 240 / 240 Output Total 250 / 250 300 / 300 Balance 910.1 / 1750.2 900.833 / 2651.033 -60 / -60 Weight last 48 hrs Weight 64.41 kg Weight 67.268 kg Physical Exam 2 Narrative: General: No acute distress, AO x3, chronically sick appearing HEENT: PERRLA, pupils bilaterally equal and reactive Chest: Bilateral bronchial breath sounds all over lung [place] with occasional rhonchi in posterior close present, fine crackles in bilateral lower zone CVS: S1-S2 regular, soft pansystolic murmur at apex radiating to axilla Urmurs, no tachycardia, no gallops, no rubs, JVD mildly elevated Abdomen: Soft, nontender, no organomegaly, bowel sounds present Neuro: No focal deficits, no facial deformity, AO x3, power 5/5 in all limbs Urinary Catheter Management: Munson: Cath Placed During This Visit: yes, but has since been removed by the nurse Reason for Continuing Indwelling Catheter: Other Urinary Catheter Date of Insertion: 09/03/23 Date Urinary Catheter Removed: 09/07/23 Time Urinary Catheter Discontinued: 09:20 Data 09/08/23 05:24 09/08/23 05:24 Micro: Microbiology 09/03/23 09:44 Blood Culture - Final Blood NO GROWTH AFTER 5 DAYS 09/03/23 09:37 Blood Culture - Final Blood NO GROWTH AFTER 5 DAYS A&P Assessment and plan (1) Acute respiratory failure with hypoxia: In setting of COPD exacerbation. Extubated on 09/04. Wean supplementation keeping saturation over 90%. C/w pulmicort, duoneb Q4h. Wean solumedrol to 20 mg daily. Transition over to oral steroids from tomorrow. Patient does have history of congestive heart failure as well. With last echocardiogram done in 2022 showing an EF of 35%, global hypokinesia with grade 1 diastolic dysfunction, moderate MR. Patient euvolemic currently. Hold off on any further Lasix. Strict input output charting. Daily weights. Sputum culture negative. MRSA swab negative. Continue with IV ceftriaxone. Last dose of antibiotics on 09/08. Does have history of pulmonary embolism. Currently suspicion of PE low. No D- dimer or CTA done since admission. If shows worsening oxygenation will plan. (2) DOLORES (acute kidney injury): History of CKD. Creatinine up to 2.1-2.4 in the past. Creatinine trending down to 2.2. Trending down slightly. Continue with normal saline at 50 cc/h 24 more hours. BUN trending down. Continue to monitor BMP daily. Medical reconstruction done for nephrotoxic drugs. Appreciate renal ultrasound. Persistent hyperkalemia. Difficult to control. Today at 5. Repeat D50 along with 10 units of insulin. Kayexalate 15 g 1 dose today. Repeat BMP at 3 PM. (3) Anemia: Hemoglobin stable at 9.2. No signs of active bleeding. Has remained stable over the last 3 days. Concerns for iron deficiency anemia. Platelets stable. Patient's hemoglobin has remained stable while being on Eliquis. Continue with home dose of 2.5 mg twice daily. Continue with home dose of Plavix. Continue with Protonix twice daily. Labs not suggestive for hemolysis. (4) Acute exacerbation of chronic obstructive airways disease: As above. (5) Acute exacerbation of CHF (congestive heart failure): As above. (6) Diabetes mellitus: Last known A1c of 7.4. Continue with insulin sliding scale. (7) CAD (coronary artery disease): Patient with significant coronary disease, but no ability to do intervention on recent angiogram Continue aspirin, Plavix, statin. Restart Imdur as tolerated by blood pressure. Continue beta-lexy. Qualifiers: Associated angina: without angina Coronary Disease-Associated Artery/Lesion type: [place] artery [place] vs. transplanted heart: [place] heart Qualified Code(s): I25.10 - Atherosclerotic heart disease of [place] coronary artery without angina pectoris (8) HTN (hypertension): Goal blood pressure less than 140/90 mmHg. Continue with home dose of hydralazine, Imdur, metoprolol. Blood pressure slightly elevated today. Will uptitrate blood pressure medications according to protocol blood pressures. If needed can change hydralazine 50 twice daily to 50 3 times daily. Qualifiers: Hypertension type: primary hypertension Qualified Code(s): I10 - Essential (primary) hypertension (9) Chronic kidney disease: As above. Qualifiers: Chronic kidney disease stage: stage 3 (moderate) Chronic kidney disease stage 3 subtype: stage 3a (GFR 45-59) Qualified Code(s): N18.31 - Chronic kidney disease, stage 3a Plan UTI: Urine culture reviewed, growing Klebsiella. Continue with ceftriaxone as above. Full code Protonix will be sufficient for PUD prophylaxis Eliquis will be sufficient for DVT prophylaxis. Discharge plan: Discussed in detail with patient again today. She states she does feel weak and would be agreeable to go to SNF for short-term for rehabitation. Case management alerted. Attestations 2 Medical Necessity Statement*: Requires further hospitalization for management of hypoxia in setting of COPD exacerbation postextubation status, DOLORES on CKD, Persistent hyperkalemia while safe discharge planning is sought. Diagnoses Acute respiratory failure with hypoxia J96.01 DOLORES (acute kidney injury) N17.9 Anemia D64.9 Acute exacerbation of chronic obstructive airways disease J44.1 Acute exacerbation of CHF (congestive heart failure) I50.9 Diabetes mellitus E11.9 Coronary artery disease involving [place] coronary artery of [place] heart without angina pectoris I25.10 Associated angina: without angina Coronary Disease-Associated Artery/Lesion type: [place] artery [place] vs. transplanted heart: [place] heart Primary hypertension I10 Hypertension type: primary hypertension Stage 3a chronic kidney disease N18.31 Chronic kidney disease stage: stage 3 (moderate) Chronic kidney disease stage 3 subtype: stage 3a (GFR 45-59)
[2023-09-08] MEDS: insulin lispro 100 unit/1 mL SUBCUT ×2 (11:08→21:21)
[2023-09-08] MEDS: sodium polystyrene sulfonate 15 gm/60 mL Btl PO (11:13)
--- NOTE | 2023-09-08 12:21 | PC.SOCIAL ---
IMM updated Updated pt on IMM. No questions voiced. Provided pt a copy. Initialed, dated, & timed copy in chart.
[2023-09-08 15:25] LABS: Anion Gap 18.3 (5-19); Blood Urea Nitrogen 69 mg/dL (8-23); Calcium 9.4 mg/dL (8.5-10.5); Carbon Dioxide 19 mmol/L (22-29); Chloride 110 mmol/L (98-107); Glucose 113 mg/dL (65-115); Osmolality Calculated 315 mOsm/kg (285-295); Potassium 5.3 mmol/L (3.5-5.1); Sodium 142 mmol/L (136-145)
[2023-09-08 15:27] LABS: Creatinine Clr Calc Pharmacy 21.2993
[2023-09-08] MEDS: cefTRIAXone 1,000 MG in sodium chloride 0.9% (plus) 50 ML 100 MG IV (16:07)
[2023-09-08 16:49] LABS: Glucose Point of Care 123 mg/dL (70-110)
--- NOTE | 2023-09-08 19:34 | PC.NURSE ---
SHIFT SUMMARY Patient has done well today. Ambulated to the bathroom and back multiple times. Sat up for all meals. Down to 2L NC. Patient has had 3 BM's since kayexalate given. Good output. Encourage PO intake. Currently resting in bed.
[2023-09-08 20:50] LABS: Glucose Point of Care 201 mg/dL (70-110)
[2023-09-08] MEDS: atorvastatin 40 mg Tablet PO (21:21)
[2023-09-08] MEDS: venlafaxine ER (24HR) 150 mg Capsule PO (21:21)
[2023-09-08] MEDS: ALPRAZolam 0.5 mg Tablet 0.25 MG PO (21:21)
[2023-09-08] MEDS: venlafaxine ER (24HR) 75 mg Capsule PO (21:21)
--- NOTE | 2023-09-08 23:05 | PC.NURSE ---
Patient says she can't sleep because she is short of breath and anxious. Her oxygen saturation is maintaining in the 90s on 2 liters. She has inspiratory and expiratory wheezes. She received 0.25 mg Xanax at 21:21 tonight. She is asking for another dose of Xanax. RT notified. Dr. Batista notified and ordered 0.25 mg Xanax x1.
[2023-09-09] VITALS (14 sets, daily range): BP systolic 164–184; BP diastolic 68–83; PULSE 79–102; RESP 16–20; TEMP 36.3–37.1; O2SAT 93–99
[2023-09-09] MEDS: ALPRAZolam 0.5 mg Tablet 0.25 MG PO ×2 (00:23→20:25)
[2023-09-09] MEDS: ipratropium-albuterol 3 mL Neb INHALATION ×5 (03:22→20:00)
[2023-09-09 04:14] LABS: Eosinophils # 0.1 10^3/uL (0.0-0.8); Hematocrit 31.5 % (36-47); Lymphocytes # 1.4 10^3/uL (0.8-4.8); Lymphocytes % 14.5 %; Mean Corpuscular HGB Conc 30.2 g/dL (30-55); Mean Corpuscular Hemoglobin 25.5 pg (27-33); Mean Corpuscular Volume 84.7 fl (85-98); Mean Platelet Volume 10.6 fL (7.4-10.4); Monocytes # 0.7 10^3/uL (0.2-0.9); Monocytes % 7.2 %; Neutrophils # 7.26 10^3/uL (1.8-7.7); Nucleated Red Blood Cells % 0 %; Platelet Count 314 10^3/cmm (157-399); Red Blood Count 3.72 10^6/uL (3.85-5.65); Red Cell Distribution Width 16.3 % (12.1-15.1); White Blood Count 9.43 10^3/uL (3.29-11.43)
[2023-09-09 04:33] LABS: Alanine Aminotransferase 28 U/L (0-33); Albumin Level 3.4 g/dL (3.5-5.2); Alkaline Phosphatase 130 U/L (35-105); Anion Gap 15.8 (5-19); Aspartate Amino Transferase 48 U/L (0-32); Blood Urea Nitrogen 65 mg/dL (8-23); Calcium 9.1 mg/dL (8.5-10.5); Carbon Dioxide 22 mmol/L (22-29); Chloride 112 mmol/L (98-107); Creatinine Clr Calc Pharmacy 21.9693; Globulin 2.7 g/dL (1.3-4.6); Glucose 108 mg/dL (65-115); Osmolality Calculated 319 mOsm/kg (285-295); Potassium 4.8 mmol/L (3.5-5.1); Sodium 145 mmol/L (136-145); Total Bilirubin 0.3 mg/dL (0.15-1.2); Total Protein 6.1 g/dL (6.6-8.7)
[2023-09-09] MEDS: sodium chloride 0.9% 1,000 ML 50 ML IV (05:08)
[2023-09-09 06:14] LABS: Glucose Point of Care 158 mg/dL (70-110)
[2023-09-09] MEDS: budesonide 0.5 mg/2 mL Neb INHALATION ×2 (08:14→20:00)
[2023-09-09] MEDS: clopidogrel 75 mg Tablet PO (08:56)
[2023-09-09] MEDS: hyDRALAzine 50 mg Tablet PO ×3 (08:56→20:25)
[2023-09-09] MEDS: apixaban 5 mg Tablet 2.5 MG PO ×2 (08:56→17:16)
[2023-09-09] MEDS: ferrous gluconate 324 mg Tablet PO ×2 (08:57→17:16)
[2023-09-09] MEDS: pantoprazole 40 mg SDV IVP ×2 (08:57→20:35)
[2023-09-09] MEDS: isosorbide mononitrate ER 60 mg Tablet PO ×2 (08:57→17:16)
[2023-09-09] MEDS: carvedilol 6.25 mg Tablet PO ×2 (08:57→17:16)
[2023-09-09] MEDS: methylPREDNISolone sod succ 40 mg/mL INJ 20 MG IVP (08:57)
[2023-09-09] MEDS: methIMAzole 5 MG Tablet PO (08:57)
[2023-09-09] MEDS: insulin lispro 100 unit/1 mL SUBCUT ×3 (08:59→17:18)
--- NOTE | 2023-09-09 09:45 | XR_ITS ---
WS: [id number] Examination: XR chest 1V portable [id number] Reason for Exam: Sob Date: September 09, 2023 Comparison: September 04, 2023 Findings: In the interval the ET tube and NG tube have been removed as has the right jugular line The heart is enlarged. Sternal wires are in place There is evidence of interval development of pulmonary edema and bilateral pleural effusions. Impression: There is cardiomegaly with evidence of congestive heart failure.
[2023-09-09] MEDS: FUROsemide 10 mg/mL SDV 2mL 20 MG IVP ×2 (10:27)
[2023-09-09 11:13] LABS: Glucose Point of Care 188 mg/dL (70-110)
[2023-09-09] MEDS: acetylcysteine 200 mg/mL SDV 4 mL 100 MG INHALATION ×3 (12:22→20:00)
--- NOTE | 2023-09-09 14:00 | PM.PN ---
Subjective Subjective: No acute events overnight. Patient remains on 2 L of oxygen supplementation but today morning seemed out of breath. She states she is getting out of breath especially after ambulation. Denies any nausea, vomiting, headache. Does better with sitting or bending down. Not able to sleep at night because of the same. Blood pressure slightly elevated. Vitals/I&O/Wt Last Vital Signs Temp 98.8 F 09/09/23 12:00 Pulse 94 09/09/23 12:27 Resp 20 H 09/09/23 12:20 BP 182/83 09/09/23 12:00 Pulse Ox 99 09/09/23 12:20 O2 Del Method Nasal Cannula 09/09/23 12:20 O2 Flow Rate 2 09/09/23 12:20 FiO2 30 09/05/23 11:00 09/08/23 09/09/23 09/09/23 22:59 06:59 14:59 Intake Total 230 / 840.1 1222.5 / 2062.6 732.5 / 732.5 Output Total 250 / 550 Balance -20 / 290.1 1222.5 / 1512.6 732.5 / 732.5 Weight last 48 hrs Weight 68.583 kg Weight 64.41 kg Physical Exam Narrative: General: No acute distress, AO x3, chronically sick appearing HEENT: PERRLA, pupils bilaterally equal and reactive Chest: Bilateral bronchial breath sounds all over lung manning with occasional rhonchi in posterior close present, expiratory wheeze present. CVS: S1-S2 regular, soft pansystolic murmur at apex radiating to axilla Urmurs, no tachycardia, no gallops, no rubs, JVD mildly elevated Abdomen: Soft, nontender, no organomegaly, bowel sounds present Neuro: No focal deficits, no facial deformity, AO x3, power 5/5 in all limbs Urinary Catheter Management: Munson: Cath Placed During This Visit: yes, but has since been removed by the nurse Reason for Continuing Indwelling Catheter: Other Urinary Catheter Date of Insertion: 09/03/23 Date Urinary Catheter Removed: 09/07/23 Time Urinary Catheter Discontinued: 09:20 Data 09/09/23 04:03 09/09/23 04:03 Micro: Microbiology 09/09/23 09:42 Occult Blood (FIT) - Final Stool - Stool Aspirate 09/03/23 09:44 Blood Culture - Final Blood NO GROWTH AFTER 5 DAYS 09/03/23 09:37 Blood Culture - Final Blood NO GROWTH AFTER 5 DAYS A&P Assessment and plan (1) Acute respiratory failure with hypoxia: In setting of COPD exacerbation. Extubated on 09/04. Wean supplementation keeping saturation over 90%. C/w pulmicort, duoneb Q4h. Wean solumedrol to 20 mg daily. Transition over to oral steroids from tomorrow. Patient does have history of congestive heart failure as well. With last echocardiogram done in 2022 showing an EF of 35%, global hypokinesia with grade 1 diastolic dysfunction, moderate MR. Patient euvolemic currently. Hold off on any further Lasix. Strict input output charting. Daily weights. Sputum culture negative. MRSA swab negative. Continue with IV ceftriaxone. Last dose of antibiotics on 09/08. Does have history of pulmonary embolism. Currently suspicion of PE low. No D-dimer or CTA done since admission. If shows worsening oxygenation will plan. (2) DOLORES (acute kidney injury): History of CKD. Creatinine up to 2.1-2.4 in the past. Creatinine trending down to 2.2. Trending down slightly. Continue with normal saline at 50 cc/h 24 more hours. BUN trending down. Continue to monitor BMP daily. Medical reconstruction done for nephrotoxic drugs. Appreciate renal ultrasound. Persistent hyperkalemia. Difficult to control. Today at 5. Repeat D50 along with 10 units of insulin. Kayexalate 15 g 1 dose today. Repeat BMP at 3 PM. (3) Anemia: Hemoglobin stable at 9.2. No signs of active bleeding. Has remained stable over the last 3 days. Concerns for iron deficiency anemia. Platelets stable. Patient's hemoglobin has remained stable while being on Eliquis. Continue with home dose of 2.5 mg twice daily. Continue with home dose of Plavix. Continue with Protonix twice daily. Labs not suggestive for hemolysis. (4) Acute exacerbation of chronic obstructive airways disease: As above. (5) Acute exacerbation of CHF (congestive heart failure): As above. (6) Diabetes mellitus: Last known A1c of 7.4. Continue with insulin sliding scale. (7) CAD (coronary artery disease): Patient with significant coronary disease, but no ability to do intervention on recent angiogram Continue aspirin, Plavix, statin. Restart Imdur as tolerated by blood pressure. Continue beta-lexy. Qualifiers: Associated angina: without angina Coronary Disease-Associated Artery/Lesion type: [place] artery [place] vs. transplanted heart: [place] heart Qualified Code(s): I25.10 - Atherosclerotic heart disease of [place] coronary artery without angina pectoris (8) HTN (hypertension): Goal blood pressure less than 140/90 mmHg. Continue with home dose of hydralazine, Imdur, metoprolol. Blood pressure slightly elevated today. Will uptitrate blood pressure medications according to protocol blood pressures. If needed can change hydralazine 50 twice daily to 50 3 times daily. Qualifiers: Hypertension type: primary hypertension Qualified Code(s): I10 - Essential (primary) hypertension (9) Chronic kidney disease: As above. Qualifiers: Chronic kidney disease stage: stage 3 (moderate) Chronic kidney disease stage 3 subtype: stage 3a (GFR 45-59) Qualified Code(s): N18.31 - Chronic kidney disease, stage 3a Plan UTI: Urine culture reviewed, growing Klebsiella. Continue with ceftriaxone as above. Full code Protonix will be sufficient for PUD prophylaxis Eliquis will be sufficient for DVT prophylaxis. Plan for the day: Patient does have expiratory wheeze today. Symptoms concerning for mild orthopnea. Stop IV fluids. Check chest x-ray. IV Lasix 40 mg one-time. Continue with nebulization treatment add Mucomyst every 4 hourly for now. Continue with incentive spirometry. Add flutter valve. Blood pressure still mildly elevated. Continue with Coreg, hydralazine 50 3 times daily, Imdur 60 twice daily. Add amlodipine 10 mg oral daily. Blood pressure less than 140/90 mmHg. Continue with IV ceftriaxone for Klebsiella UTI. Last dose today. Patient has been accepted at SNF. Required P2P discussion with insurance. Has been approved. Discharge plan: Plan to discharge in next 24 hours to SNF for further rehabilitation if remains hemodynamically stable and on baseline oxygen supplementation. Attestations Medical Necessity Statement*: Requires further hospitalization for management of acute hypoxic respiratory failure, postextubation care in a patient admitted for COPD exacerbation, CHF while antihypertensives were adjusted and safe discharge planning is sought Diagnoses Acute respiratory failure with hypoxia J96.01 DOLORES (acute kidney injury) N17.9 Anemia D64.9 Acute exacerbation of chronic obstructive airways disease J44.1 Acute exacerbation of CHF (congestive heart failure) I50.9 Diabetes mellitus E11.9 Coronary artery disease involving [place] coronary artery of [place] heart without angina pectoris I25.10 Associated angina: without angina Coronary Disease-Associated Artery/Lesion type: [place] artery [place] vs. transplanted heart: [place] heart Primary hypertension I10 Hypertension type: primary hypertension Stage 3a chronic kidney disease N18.31 Chronic kidney disease stage: stage 3 (moderate) Chronic kidney disease stage 3 subtype: stage 3a (GFR 45-59)
[2023-09-09] MEDS: cefTRIAXone 1,000 MG in sodium chloride 0.9% (plus) 50 ML 100 MG IV (14:13)
[2023-09-09] MEDS: amlodipine 10 mg Tablet PO (14:13)
[2023-09-09 16:46] LABS: Glucose Point of Care 158 mg/dL (70-110)
[2023-09-09] MEDS: venlafaxine ER (24HR) 75 mg Capsule PO (20:25)
[2023-09-09] MEDS: atorvastatin 40 mg Tablet PO (20:25)
[2023-09-09] MEDS: venlafaxine ER (24HR) 150 mg Capsule PO (20:25)
[2023-09-09 20:39] LABS: Glucose Point of Care 139 mg/dL (70-110)
[2023-09-10] VITALS (9 sets, daily range): BP systolic 125–179; BP diastolic 64–85; PULSE 89–103; RESP 14–20; TEMP 36.6–36.9; O2SAT 95–99
[2023-09-10 04:27] LABS: Basophils % 0.1 %; Eosinophils # 0.2 10^3/uL (0.0-0.8); Eosinophils % 1.9 %; Hematocrit 29.2 % (36-47); Lymphocytes # 1.2 10^3/uL (0.8-4.8); Lymphocytes % 14.8 %; Mean Corpuscular HGB Conc 30.8 g/dL (30-55); Mean Corpuscular Hemoglobin 25.9 pg (27-33); Mean Corpuscular Volume 83.9 fl (85-98); Mean Platelet Volume 10.5 fL (7.4-10.4); Monocytes # 0.5 10^3/uL (0.2-0.9); Monocytes % 6.4 %; Neutrophils # 6.27 10^3/uL (1.8-7.7); Neutrophils % 76.3 %; Nucleated Red Blood Cells % 0 %; Platelet Count 261 10^3/cmm (157-399); Red Blood Count 3.48 10^6/uL (3.85-5.65); Red Cell Distribution Width 16.3 % (12.1-15.1); White Blood Count 8.23 10^3/uL (3.29-11.43)
[2023-09-10 04:50] LABS: Alanine Aminotransferase 25 U/L (0-33); Albumin Level 2.9 g/dL (3.5-5.2); Alkaline Phosphatase 110 U/L (35-105); Anion Gap 16.2 (5-19); Aspartate Amino Transferase 34 U/L (0-32); Blood Urea Nitrogen 60 mg/dL (8-23); Calcium 8.9 mg/dL (8.5-10.5); Carbon Dioxide 21 mmol/L (22-29); Chloride 112 mmol/L (98-107); Creatinine Clr Calc Pharmacy 25.1266; Globulin 2.6 g/dL (1.3-4.6); Glucose 191 mg/dL (65-115); Osmolality Calculated 322 mOsm/kg (285-295); Potassium 4.2 mmol/L (3.5-5.1); Sodium 145 mmol/L (136-145); Total Bilirubin 0.3 mg/dL (0.15-1.2); Total Protein 5.5 g/dL (6.6-8.7)
[2023-09-10 06:28] LABS: Glucose Point of Care 222 mg/dL (70-110)
[2023-09-10] MEDS: carvedilol 6.25 mg Tablet PO (08:11)
[2023-09-10] MEDS: isosorbide mononitrate ER 60 mg Tablet PO (08:11)
[2023-09-10] MEDS: ferrous gluconate 324 mg Tablet PO (08:12)
[2023-09-10] MEDS: hyDRALAzine 50 mg Tablet PO (08:12)
[2023-09-10] MEDS: clopidogrel 75 mg Tablet PO (08:13)
[2023-09-10] MEDS: ALPRAZolam 0.5 mg Tablet 0.25 MG PO (08:13)
[2023-09-10] MEDS: methIMAzole 5 MG Tablet PO (08:13)
[2023-09-10] MEDS: amlodipine 10 mg Tablet PO (08:13)
[2023-09-10] MEDS: apixaban 5 mg Tablet 2.5 MG PO (08:15)
[2023-09-10] MEDS: pantoprazole 40 mg SDV IVP (08:19)
[2023-09-10] MEDS: methylPREDNISolone sod succ 40 mg/mL INJ 20 MG IVP (08:19)
[2023-09-10] MEDS: insulin lispro 100 unit/1 mL SUBCUT (08:21)
[2023-09-10] MEDS: acetylcysteine 200 mg/mL SDV 4 mL 100 MG INHALATION ×2 (09:22→11:35)
[2023-09-10] MEDS: budesonide 0.5 mg/2 mL Neb INHALATION (09:22)
[2023-09-10] MEDS: ipratropium-albuterol 3 mL Neb INHALATION ×2 (09:22→11:33)
--- NOTE | 2023-09-10 10:11 | PC.SOCIAL ---
IMM Updated Updated pt on IMM. No questions voiced. Provided pt a copy. Initialed, dated, & timed copy in chart.
--- NOTE | 2023-09-10 11:02 | PM.DCS ---
Discharge Providers Date of Admission: 09/03/23 12:07 Date of Discharge: September 10, 2023 Attending Provider at Admission: Berto Fu MD Attending Provider at Discharge: Moe Butler MD Primary Care Provider: Jocelyne Kirby Diagnoses at Discharge Discharge Diagnosis (1) Acute respiratory failure with hypoxia: Status: Acute (2) DOLORES (acute kidney injury): Status: Acute (3) Anemia: Status: Acute (4) Acute exacerbation of chronic obstructive airways disease: Status: Acute (5) Acute exacerbation of CHF (congestive heart failure): Status: Acute (6) Diabetes mellitus: Status: Acute (7) CAD (coronary artery disease): Status: Acute Qualifiers: Associated angina: without angina Coronary Disease-Associated Artery/Lesion type: [place] artery [place] vs. transplanted heart: [place] heart Qualified Code(s): I25.10 - Atherosclerotic heart disease of [place] coronary artery without angina pectoris (8) HTN (hypertension): Status: Acute Qualifiers: Hypertension type: primary hypertension Qualified Code(s): I10 - Essential (primary) hypertension (9) Chronic kidney disease: Status: Acute Qualifiers: Chronic kidney disease stage: stage 3 (moderate) Chronic kidney disease stage 3 subtype: stage 3a (GFR 45-59) Qualified Code(s): N18.31 - Chronic kidney disease, stage 3a Reason for Visit Reason for Visit: RESPIRATORY DISTRESS Brief History: History as per HPI: Romi Yuan is a 72 year old female brought into the emergency department by EMS in significant respiratory distress. Apparently she was answering questions, unable to move extremities but required emergent intubation. Elevated blood pressure was also noted during this timeframe. She was brought in on 100% FiO2. Her most recent hospital stay was she was discharged on June 19 with hypertension, CHF exacerbation, and concern for a cardiac event. During this hospital stay her EF was found to be 35%. She underwent an angiogram demonstrating severe [place] coronary disease with patent LOVETT to LAD and recommendations were made for medical treatment. She was also aggressively treated for hypertension. Other history is unable to be obtained from the patient at this time. Hospital Course Hospital Course Patient was admitted to the hospital for evaluation and management of respiratory distress for which she was intubated in the ER. She was thought to have respiratory distress in setting of COPD and CHF exacerbation. She was started on broad-spectrum antibiotics and nebulization treatment and was gradually extubated on 09/04. During hospitalization blood cultures remain negative, urine culture grew Klebsiella. Her hospitalization was complicated and prolonged by significant deconditioning, slow improvement in respiratory failure. Initially she improved with occasional doses of diuretics, nebulization treatment and steroid. Patient has been ambulating well with physical therapy and has been on room air to 2 L of oxygen supplementation to maintain saturation over 90%. She will discharge plan were discussed in detail with the patient and she is agreeable for transfer to SNF for further pulmonary and physical rehabilitation. She has been discharged in hemodynamically stable condition Physical Exam Narrative: General: No acute distress, AO x3, chronically sick appearing HEENT: PERRLA, pupils bilaterally equal and reactive Chest: Bilateral bronchial breath sounds all over lung manning with occasional rhonchi in posterior close present, expiratory wheeze present. CVS: S1-S2 regular, soft pansystolic murmur at apex radiating to axilla Urmurs, no tachycardia, no gallops, no rubs, JVD mildly elevated Abdomen: Soft, nontender, no organomegaly, bowel sounds present Neuro: No focal deficits, no facial deformity, AO x3, power 5/5 in all limbs Urinary Catheter Management: Munson: Cath Placed During This Visit: yes, but has since been removed by the nurse Reason for Continuing Indwelling Catheter: Other Urinary Catheter Date of Insertion: 09/03/23 Date Urinary Catheter Removed: 09/07/23 Time Urinary Catheter Discontinued: 09:20 Discharge Data Studies Completed and Pending Completed Studies During Hospitalization Category Date Time Status CXRP [XR chest 1V portable [id number]] Routine Exams 09/03/23 14:06 Completed XR chest 1V 51292 Stat Exams 09/03/23 08:34 Completed XR chest 1V [id number] Stat Exams 09/03/23 10:37 Completed XR chest 1V portable [id number] Routine Exams 09/04/23 07:00 Completed XR chest 1V portable [id number] Routine Exams 09/09/23 09:45 Completed XR chest 1V portable [id number] Stat Exams 09/03/23 10:09 Completed XR chest 1V portable [id number] Stat Exams 09/03/23 11:38 Completed US renal BI* [id number] Routine Ultrasound 09/05/23 13:05 Completed Pending at discharge Category Date Time Status SARS Covid-2 Antigen Stat Lab 09/10/23 08:44 Uncollected Radiology Impressions Renal Ultrasound 09/05/23 13:05 IMPRESSION: 1. No hydronephrosis, or obstructing nephroureterolithiasis. 2. Ectatic dilatation of the aorta measuring up to 2.3 centimeters. Laboratory Results WBC 8.23 10^3/uL (3.29-11.43) 09/10/23 04:05 RBC 3.48 10^6/uL (3.85-5.65) L 09/10/23 04:05 Hgb 9.00 g/dL (11.27-16.99) L 09/10/23 04:05 Hct 29.2 % (36-47) L 09/10/23 04:05 MCV 83.9 fl (85-98) L 09/10/23 04:05 MCH 25.9 pg (27-33) L 09/10/23 04:05 MCHC 30.8 g/dL (30-55) 09/10/23 04:05 RDW 16.3 % (12.1-15.1) H 09/10/23 04:05 Plt Count 261 10^3/cmm (157-399) 09/10/23 04:05 MPV 10.5 fL (7.4-10.4) H 09/10/23 04:05 Neut % (Auto) 76.3 % 09/10/23 04:05 Lymph % (Auto) 14.8 % 09/10/23 04:05 [place] % (Auto) 6.4 % 09/10/23 04:05 Eos % (Auto) 1.9 % 09/10/23 04:05 Baso % (Auto) 0.1 % 09/10/23 04:05 Reticulocyte % (Auto) 1.7 % (0.5-2.0) 09/04/23 17:07 Neut # (Auto) 6.27 10^3/uL (1.8-7.7) 09/10/23 04:05 Lymph # (Auto) 1.2 10^3/uL (0.8-4.8) 09/10/23 04:05 [place] # (Auto) 0.5 10^3/uL (0.2-0.9) 09/10/23 04:05 Eos # (Auto) 0.2 10^3/uL (0.0-0.8) 09/10/23 04:05 Baso # (Auto) 0.0 10^3/uL (0.0-0.1) 09/10/23 04:05 Nucleated RBC % (auto) 0 % 09/10/23 04:05 Nucleated RBCs # 0.0 /100WBC 09/10/23 04:05 Peripher Smr Path Cons Sent for review 09/04/23 03:34 Retic Production Index 1.37 09/04/23 17:07 Haptoglobin 158.0 mg/L (30-200) 09/04/23 17:07 Specimen Type Arterial 09/04/23 04:10 Sample Site Radial, right 09/04/23 04:10 ABG pH 7.34 (7.35-7.45) L 09/04/23 04:10 ABG pCO2 42.3 mmHg (35-45) 09/04/23 04:10 ABG pO2 128.0 mmHg (80.0-100.0) H 09/04/23 04:10 ABG PO2/FiO2 Ratio 0 09/04/23 04:10 ABG HCO3 22.8 mmol/L (22-26) 09/04/23 04:10 ABG O2 Saturation 93.6 09/03/23 08:29 ABG Base Excess -2.8 mmol/L (-2.0-2.0) L 09/04/23 04:10 Rene Test Pos 09/04/23 04:10 A-a O2 Gradient Not Reportable 09/03/23 08:29 Hematocrit 32.6 % (37-47) L 09/04/23 04:10 Hgb O2 Saturation 90.9 % (95-100) L 09/03/23 08:29 Carboxyhemoglobin 3.9 %THgb (0.4-20.1) 09/03/23 08:29 Methemoglobin < 0.0 % (0.4-1.5) L 09/03/23 08:29 Total Hemoglobin 11.4 g/dL (12-16) L 09/03/23 08:29 Sodium 142.0 mmol/L (131-143) 09/03/23 08:29 Potassium 5.2 mmol/L (3.5-5.0) H 09/03/23 08:29 Glucose 286.0 mg/dL (70-115) H 09/03/23 08:29 Ionized Calcium 1.2 mmol/L (1.1-1.4) 09/03/23 08:29 O2 Delivery Device Vent 09/04/23 04:10 O2 Liters/Min 8.0 % 09/03/23 08:29 FiO2 45.0 % 09/04/23 04:10 Tidal Volume 0.36 09/04/23 04:10 PEEP 5.0 cmH20 09/04/23 04:10 Hydramatic Mechanic ID [place] 09/04/23 04:10 Sodium 145 mmol/L (136-145) 09/10/23 04:05 Potassium 4.2 mmol/L (3.5-5.1) 09/10/23 04:05 Chloride 112 mmol/L (98-107) H 09/10/23 04:05 Carbon Dioxide 21 mmol/L (22-29) L 09/10/23 04:05 Anion Gap 16.2 (5-19) 09/10/23 04:05 BUN 60 mg/dL (8-23) H 09/10/23 04:05 Creatinine 1.7 mg/dL (0.5-0.9) H 09/10/23 04:05 GFR Calculation Not Reportable 09/10/23 04:05 Glucose 191 mg/dL (65-115) H 09/10/23 04:05 POC Glucose 222 mg/dL (70-110) H 09/10/23 06:18 Calculated Osmolality 322 mOsm/kg (285-295) H 09/10/23 04:05 Lactic Acid 6.8 mmol/L (0.5-2.2) H* 09/03/23 08:30 Lactic Acid (Sepsis) 0.6 mmol/L (0.5-2.2) 09/03/23 11:47 Calcium 8.9 mg/dL (8.5-10.5) 09/10/23 04:05 Magnesium 2.3 mg/dL (1.7-2.3) 09/04/23 21:49 Iron 9 ug/dL (37-145) L 09/04/23 17:07 TIBC 234 mcg/dl 09/04/23 17:07 % Saturation 3.8 % (20-50) L 09/04/23 17:07 Unsat Iron Binding 225 ug/dL (112-347) 09/04/23 17:07 Ferritin 20 ng/mL (15-150) 09/04/23 17:07 Total Bilirubin 0.3 mg/dL (0.15-1.2) 09/10/23 04:05 AST 34 U/L (0-32) H 09/10/23 04:05 ALT 25 U/L (0-33) 09/10/23 04:05 Alkaline Phosphatase 110 U/L (35-105) H 09/10/23 04:05 Lactate Dehydrogenase 177 U/L (135-214) 09/04/23 17:07 Troponin T Baseline 58 ng/L (0-10) H 09/03/23 08:30 Troponin T 120 Minute 68.42 ng/L (0-10) H 09/03/23 11:47 Delta Troponin T 10.42 ABS# (0-10) H* 09/03/23 11:47 Troponin T Hi Sens 6Hr 68.27 ng/L (0-10) H 09/03/23 15:25 Troponin T Hi Sens 6Hr Delta 10.27 ng/L (0-12) 09/03/23 15:25 C-Reactive Protein 11.8 mg/L (0.0-4.9) H 09/03/23 08:30 NT-Pro-B Natriuret Pep 09222 pg/mL (0-125) H 09/03/23 08:30 Total Protein 5.5 g/dL (6.6-8.7) L 09/10/23 04:05 Albumin 2.9 g/dL (3.5-5.2) L 09/10/23 04:05 Globulin 2.6 g/dL (1.3-4.6) 09/10/23 04:05 Procalcitonin 0.15 ng/mL (0-0.5) 09/03/23 08:30 Urine Color Light yellow (Yellow) 09/03/23 10:54 Urine Appearance Clear (CLEAR) 09/03/23 10:54 Urine pH 5 (5-7) 09/03/23 10:54 Ur Specific [place] 1.015 (1.005-1.030) 09/03/23 10:54 Urine Protein 3+ (Negative) H 09/03/23 10:54 Urine Glucose (UA) 4+ (Normal) H 09/03/23 10:54 Urine Ketones Negative (Negative) 09/03/23 10:54 Urine Blood Neg (Negative) 09/03/23 10:54 Urine Nitrate Positive (Negative) H 09/03/23 10:54 Urine Bilirubin Neg (Negative) 09/03/23 10:54 Urine Urobilinogen Neg mg/dL (Negative) 09/03/23 10:54 Ur Leukocyte Esterase Negative (Negative) 09/03/23 10:54 Urine RBC None /hpf (0-2) 09/03/23 10:54 Urine WBC 0-4 /hpf (0-5) H 09/03/23 10:54 Ur Squamous Epith Cells None /hpf (0-5) 09/03/23 10:54 Amorphous Sediment Not Reportable 09/03/23 10:54 Urine Bacteria 4+ /hpf (NONE) H 09/03/23 10:54 Serum Ketones Negative (Negative) 09/03/23 08:50 Coronavirus 229E (PCR) Not detected (NOT DETECT) 09/03/23 09:20 Influenza Type A Ag negative (Negative) 09/03/23 09:20 Influenza Type B Ag negative (Negative) 09/03/23 09:20 SARS-CoV-2 (PCR) Not detected (NOT DETECT) 09/03/23 09:20 MRSA (PCR) Not detected (NOT DETECTED) 09/03/23 17:25 Vitals Last Vital Signs Temp 98.3 F 09/10/23 07:47 Pulse 99 09/10/23 09:26 Resp 20 H 09/10/23 09:10 BP 179/85 09/10/23 07:47 Pulse Ox 98 09/10/23 09:10 O2 Del Method Nasal Cannula 09/10/23 09:10 O2 Flow Rate 2 09/10/23 09:10 FiO2 30 09/05/23 11:00 Discharge Plan Discharge Patient Disposition: Xfer SNF Condition: Stable Prescriptions: New ferrous gluconate 324 mg (37.5 mg iron) Tablet 324 mg PO EVERY OTHER DAY Qty: 14 0RF amlodipine 10 mg Tablet 10 mg PO DAILY Qty: 30 0RF bumetanide 1 mg Tablet 1 mg PO DAILY Qty: 60 0RF hydralazine 50 mg Tablet 75 mg PO TID Qty: 90 0RF prednisone 10 mg tablet See Taper PO DIRECTED Qty: 42 0RF Taper: predniSONE 60-10 60 mg Daily for 2 Days and 0 Hour 50 mg Daily for 2 Days and 0 Hour 40 mg Daily for 2 Days and 0 Hour 30 mg Daily for 2 Days and 0 Hour 20 mg Daily for 2 Days and 0 Hour 10 mg Daily for 2 Days and 0 Hour Rx Instructions: Start 60 mg, taper 10 mg every 2-day until you run out of the medication carvedilol 6.25 mg Tablet 6.25 mg PO BID Qty: 60 0RF Continued Anoro Ellipta 62.5-25 mcg/actuation blister with device 1 inh INHALATION DAILY isosorbide mononitrate 60 mg tablet extended release 24 hr 60 mg PO BID venlafaxine [Effexor XR] 150 mg capsule,extended release 24hr See Rx Instructions .ROUTE .COMPLEX Rx Instructions: TAKE 150 MG BY MOUTH AT BEDTIME ALONG WITH 75 MG potassium chloride 10 mEq tablet extended release 10 meq PO BID Qty: 180 1RF Hold Instructions: Resume on 06/20/23. Jardiance 10 mg tablet 10 mg PO DAILY apixaban 2.5 mg tablet 2.5 mg PO BID Qty: 180 2RF methimazole 5 mg tablet 5 mg PO DAILY Qty: 30 3RF (DME) Accu-Chek Ana M Plus test strp Strip See Rx Instructions .ROUTE .MEDSUPPLY Qty: 120 3RF Rx Instructions: check blood glucose four times a day tizanidine 4 mg tablet 4 mg PO BEDTIME nitroglycerin [Nitrostat] 0.4 mg Tablet, Sublingual 0.4 mg SUBLINGUAL Q5M PRN (Reason: Chest Pain) Rx Instructions: do not exceed 3 doses per episode insulin lispro [Humalog KwikPen Insulin] 100 unit/mL Insulin Pen See Rx Instructions .ROUTE .COMPLEX Rx Instructions: 10 UNITS TID DIRECTED acetaminophen 500 mg Tablet 500 mg PO BEDTIME albuterol sulfate [Ventolin HFA] 90 mcg/actuation Hfa Aerosol Inhaler 2 puff INHALATION QID PRN (Reason: Shortness Of Breath) calcitriol 0.25 mcg capsule See Rx Instructions .ROUTE .COMPLEX Rx Instructions: TAKE 0.25 mcg orally 3 TIMES WEEKLY ON WEDNESDAY, WEDNESDAY, AND WEDNESDAY IN THE MORNING. clopidogrel [Plavix] 75 mg tablet 75 mg PO DAILY Qty: 60 0RF atorvastatin 40 mg tablet 40 mg PO BEDTIME venlafaxine 75 mg capsule,extended release 24hr See Rx Instructions .ROUTE .COMPLEX Rx Instructions: TAKE 75 MG BY MOUTH AT BEDTIME ALONG WITH 150 MG acitretin 10 mg capsule 10 mg PO QAM Aspir-81 81 mg Tablet,Delayed Release (Dr/Ec) 81 mg PO BEDTIME Lantus Solostar U-100 Insulin 100 unit/mL (3 mL) insulin pen See Rx Instructions .ROUTE .COMPLEX Rx Instructions: 20 unit subcutaneously daily as directed Vitamin D2 1,250 mcg (50,000 unit) capsule 50,000 unit PO Q7D Discontinued furosemide 40 mg tablet See Rx Instructions .ROUTE .COMPLEX Qty: 135 1RF Hold Instructions: Resume on 06/20/23. Dose Instruction: TAKE 1 TABLET BY MOUTH EVERY MORNING AND ONE-HALF EVERY EVENING Rx Instructions: TAKE 1 TABLET (40mg)BY MOUTH EVERY MORNING AND ONE-HALF TAB (20MG) EVERY EVENING Entresto 24-26 mg tablet 1 tab PO BID metoprolol succinate 50 mg tablet extended release 24 hr 50 mg PO DAILY hydralazine 50 mg tablet 50 mg PO BID Discharge Orders: Discharge Order (Routine); Ordered 09/10/23 Ordered By: Moe Butler Referrals: [facility] [Other] (Call this number to get In home services setup. They will ask you questions. Based off your answers, you are given points. You have to have a certain number of points to qualify for services. ) [facility]Other[facility] (Call this number to see if they can assist you with a house keeper at home. ) [facility] [Outside] Jocelyne Kirby PA [Primary Care Provider] - 09/14/23 9:20 am Discharge Diet: Cardiac and Diabetic Discharge Activity: Resume usual activity and Increase activity as tolerated Patient Instructions: Opioid Safety Activity Restrictions/Additional Instructions: Please continue to increase physical activity physical therapy daily. Continue doing your incentive spirometry and flutter valve going forward at least 3-4 times a day. Restrict fluid intake to less than 1500 cc, salt intake to less than 2 g daily. Advised to check his weight daily at home. Is advised that weight today would be the dry weight and if body weight increases by around 5 pounds, patient is to take an extra dose of Bumex daily till body weight comes down to weight today. If not able to come down to dry body weight in 1 week, then is to call cardiology office for further recommendations. Patient was counseled in detail to take medications regularly as prescribed. Discharge Attestations Time Spent in Discharge Care*: greater than 30 min Specific Discharge Activities: educating patient, educating and/or supporting family/caregiver, discussing with pcp/other providers, discussing with case finisher/social workers/dc planners, documenting/other paperwork and evaluating patient/reviewing data Status at Discharge: Cognitive status at discharge: cognitively intact, Behavioral status at discharge: cooperative, Functional status at discharge: uses cane/walker, Overall status at discharge: patient is progressing back to baseline Quality Metrics Clinical Quality Measures [ No reported AMI, CVA or VTE this stay] Coding Level of Care Code 63930 Total time (in minutes) for Discharge: 70 Diagnoses Acute respiratory failure with hypoxia J96.01 DOLORES (acute kidney injury) N17.9 Anemia D64.9 Acute exacerbation of chronic obstructive airways disease J44.1 Acute exacerbation of CHF (congestive heart failure) I50.9 Diabetes mellitus E11.9 Coronary artery disease involving [place] coronary artery of [place] heart without angina pectoris I25.10 Associated angina: without angina Coronary Disease-Associated Artery/Lesion type: [place] artery [place] vs. transplanted heart: [place] heart Primary hypertension I10 Hypertension type: primary hypertension Stage 3a chronic kidney disease N18.31 Chronic kidney disease stage: stage 3 (moderate) Chronic kidney disease stage 3 subtype: stage 3a (GFR 45-59)
[2023-09-10 11:20] LABS: Glucose Point of Care 138 mg/dL (70-110)
[2023-09-10] MEDS: bumetanide 1 mg Tablet PO (11:38)
[2023-09-10] MEDS: hyDRALAzine 25 mg Tablet PO (11:38)
[2023-09-10 12:11] LABS: SARS Covid-2 Antigen negative (Negative)
== END 2023-09-10 13:52 | disposition skilled nursing facility (03) | DRG 208 ==
LOC: ER 09:02 → ICU 12:07 → MEDSURG 09-06 03:05
PROVIDERS: Internal Medicine; Admitting Provider Internal Medicine; Emergency Provider Emergency Medicine; PCP Physician Assistant; Visit Provider Student in an Organized Health Care Education/Training Program
DX: J96.01 Acute respiratory failure with hypoxia (principal); I50.23 Acute on chronic systolic (congestive) heart failure; I13.0 Hypertensive heart and chronic kidney disease with heart failure and stage 1 through stage 4 chronic kidney disease, or unspecified chronic kidney disease; N17.9 Acute kidney failure, unspecified; N39.0 Urinary tract infection, site not specified; J44.1 Chronic obstructive pulmonary disease with (acute) exacerbation; N18.31 Chronic kidney disease, stage 3a; E11.22 Type 2 diabetes mellitus with diabetic chronic kidney disease; E11.51 Type 2 diabetes mellitus with diabetic peripheral angiopathy without gangrene; E78.5 Hyperlipidemia, unspecified; I25.2 Old myocardial infarction; I25.10 Atherosclerotic heart disease of native coronary artery without angina pectoris; B96.1 Klebsiella pneumoniae [K. pneumoniae] as the cause of diseases classified elsewhere; D63.1 Anemia in chronic kidney disease; D50.9 Iron deficiency anemia, unspecified; F41.9 Anxiety disorder, unspecified; Z11.52 Encounter for screening for COVID-19; Z79.02 Long term (current) use of antithrombotics/antiplatelets; Z79.82 Long term (current) use of aspirin; Z79.4 Long term (current) use of insulin; Z95.820 Peripheral vascular angioplasty status with implants and grafts; Z95.5 Presence of coronary angioplasty implant and graft; Z95.1 Presence of aortocoronary bypass graft; Z86.16 Personal history of COVID-19; Z86.010 Personal history of colon polyps; Z85.828 Personal history of other malignant neoplasm of skin; Z86.73 Personal history of transient ischemic attack (TIA), and cerebral infarction without residual deficits; Z86.711 Personal history of pulmonary embolism
CPT/HCPCS: 31500; 36415; 36416; 36556; 36592; 36600; 51702; 71045; 76770; 80048; 80051; 80053; 80503; 81001; 82009; 82274; 82330; 82728; 82803; 82805; 82962; 83010; 83540; 83550; 83605; 83615; 83735; 83880; 84145; 84484; 85014; 85025; 85045; 86140; 87040; 87070; 87077; 87086; 87186; 87205; 87426; 87635; 87641; 87804; 93005; 94002; 94003; 94640; 94799; 96365; 96366; 96367; 96372; 96375; 96376; 97110; 97116; 97161; 97530; 99291; 99292; C9113; J0330; J0610; J0612; J0696; J1644; J1756; J1815; J1940; J2020; J2185; J2250; J2704; J2920; J2930; J3010; J3370; J3490; J7030; J7050; J7608; J7626; J7799; P9046

== ENCOUNTER 2023-09-11 09:27 | Inpatient (IN) | payer MEDICARE, MEDICAID, SELFPAY ==
[2023-09-11] VITALS (31 sets, daily range): BP systolic 116–190; BP diastolic 72–102; PULSE 88–116; RESP 13–26; TEMP 36.7–37.1; O2SAT 92–98; BMI 25.9
--- NOTE | 2023-09-11 09:31 | XRR_ITS ---
PROCEDURE INFORMATION: Exam: XR Chest Exam date and time: 09/11/2023 9:48 AM Age: 72 years old Clinical indication: Cough; Additional info: Dyspnea/cough TECHNIQUE: Imaging protocol: Radiologic exam of the chest. Views: 1 view. COMPARISON: CR XR chest 1V portable [id number] 09/09/2023 8:54 AM FINDINGS: Lungs: There is right basilar consolidation with a small pleural effusion. Pleural spaces: See Lungs finding. Heart/Mediastinum: Moderate cardiomegaly is noted.Sternal sutures are noted. Bones/joints: See Heart/Mediastinum finding. XR/XR chest 1V portable [id number] IMPRESSION: Persistent right basilar consolidation and effusion. No exchange underwriting consultant the past 2 days.
--- NOTE | 2023-09-11 09:32 | ECG_ITS ---
[facility] Test Date: 2023-09-11 Pat Name: Romi Yuan Department: Room: Gender: Female Administrative Technician: : 1950 Requested By: Tae Mo Order Number: [id number] Tessa MD: Tristin Goldstein M.D. Measurements Intervals [place] Rate: 99 P: 69 UT: 152 QRS: -36 QRSD: 112 T: 87 QT: 341 QTc: 438 Interpretive Statements SINUS RHYTHM LEFT AXIS DEVIATION [QRS AXIS < -30] MODERATE INTRAVENTRICULAR CONDUCTION DELAY [105+ ms QRS DURATION, 80+ ms Q/S IN V1/V2, NO Q AND 60+ ms R IN I/aVL/V5/V6] NONSPECIFIC ST & T-WAVE ABNORMALITY Compared to ECG 09/03/2023 08:38:59 Intraventricular conduction delay now present Atrial fibrillation no longer present Possible ischemia no longer present T-wave abnormality still present Electronically Signed On 09-12-2023 11:11:13 CDT by Tristin Goldstein M.D. [id number]
[2023-09-11 09:39] LABS: Eosinophils # 0.1 10^3/uL (0.0-0.8); Eosinophils % 0.7 %; Hematocrit 34.4 % (36-47); Lymphocytes % 7.7 %; Mean Corpuscular HGB Conc 30.5 g/dL (30-55); Mean Corpuscular Hemoglobin 25.4 pg (27-33); Mean Corpuscular Volume 83.3 fl (85-98); Mean Platelet Volume 10.6 fL (7.4-10.4); Monocytes # 0.5 10^3/uL (0.2-0.9); Monocytes % 3.5 %; Neutrophils # 11.64 10^3/uL (1.8-7.7); Neutrophils % 87.7 %; Nucleated Red Blood Cells % 0 %; Platelet Count 338 10^3/cmm (157-399); Red Blood Count 4.13 10^6/uL (3.85-5.65); Red Cell Distribution Width 16.9 % (12.1-15.1); White Blood Count 13.26 10^3/uL (3.29-11.43)
--- NOTE | 2023-09-11 09:41 | ED_ITS ---
HPI - SOB/Dyspnea 2 General: Chief Complaint: Shortness of Breath/Dyspnea Stated Complaint: SOB Time Seen by Provider: 09/11/23 09:28 Source: patient Mode of arrival: ambulatory History of Present Illness: HPI Narrative: 70-year-old female presents emergency ro om complaining of shortness of breath with productive cough. She was discharged yesterday for treatment for pneumonia and COPD exacerbation. She was discharged to the retirement with 2 L by nasal cannula of oxygen support. She was admitted to the hospital with acute respiratory failure acute kidney injury anemia as well exacerbation of COPD and CHF. She denies any fever sweats or chills. No chest pain. She has noticed some increased swelling in her lower extremities. Discharge summary reviewed from yesterday patient was discharged home on carvedilol and a prednisone taper. MD elicited complaint: shortness of breath and cough Pertinent past history: COPD, congestive heart failure and other (CAD) Exacerbating factors: nothing Relieving factors: nothing Known history of: COPD, congestive heart failure and other (CAD) Associated symptoms: Reports chest congestion and cough; Deny abdominal pain, chest pain, diaphoresis, dizziness, extremity pain, fever(s), hemoptysis, lightheadedness, myalgias, nausea, orthopnea, palpitations, paresthesias, polydipsia, polyuria, rash, sense of impending doom, syncope or vomiting Treatment prior to arrival: none Review of Systems 2 Const: Denies: fever(s), chills or diaphoresis Card: Denies: chest pain, palpitations, lightheadedness, syncope or orthopnea Resp: Reports: dyspnea, productive cough and chest congestion; Denies: hemoptysis GI: Denies: abdominal pain, nausea or vomiting : Denies: dysuria, urinary frequency or urinary urgency Musc: Denies: neck pain, back pain or extremity pain Skin/Breast: Denies: rash Neuro: Denies: dizziness Endo: Denies: polyuria or polydipsia PFSH ED 2 PFSH: Medical History Diabetes mellitus PAD (peripheral artery disease) Dyslipidemia HTN (hypertension) NSTEMI (non-ST elevated myocardial infarction) Eczema CAD (coronary artery disease) Clostridioides difficile infection (07/2022) Insomnia CHF (congestive heart failure) Chronic kidney disease Hypertensive urgency Pneumonia due to COVID-19 virus (~06/2022) Colon polyps History of skin cancer Hyperthyroidism Graves disease History of CVA (cerebrovascular accident) COPD (chronic obstructive pulmonary disease) Anxiety Carotid arterial disease ASHD (arteriosclerotic heart disease) Surgical History Status post insertion of iliac artery stent History of coronary artery stent placement History of cardiac catheterization 06/25/2022 Left main artery: Short, patent. Left circumflex artery: Has patent stents, no significant stenosis. LAD:Occluded in the midsegment. RCA: Known occluded. Not injected. SVG to diagonal artery and SVG to RCA are known occluded. Not injected. LOVETT to LAD: Patent. Coronary anatomy unchanged compared to before. History of renal stent Hx of local excision of skin lesion (09/16/20) Left forearm x2 Status post colonoscopy (09/16/20) S/P hysterectomy with oophorectomy S/P cholecystectomy S/P CABG (coronary artery bypass graft) twice, last in 2004 History of endovascular stent graft for abdominal aortic aneurysm (AAA) S/P cataract surgery S/P skin and subcutaneous tissue surgery Family History Sister Mark's disease Sister No problems noted. Mother No problems noted. Other Anesthesia complication Social History Smoking and tobacco/nicotine status: former use of tobacco/nicotine Alcohol intake: current Alcohol intake frequency: holidays/special occasions only Substance/Drug Use: current Physical Exam 2 Const: GENERAL APPEARANCE: cooperative and comfortable O RIENTATION/CONSCIOUSNESS: Yes awake, Yes oriented to person, Yes oriented to place and Yes oriented to time HENMT: COMMON NORMALS: normocephalic, atraumatic and hearing grossly normal bilaterally HEAD & SCALP: normocephalic and atraumatic Resp: COMMON NORMALS: normal respiratory effort, No retractions and No use of accessory muscles AUSCULTATION: crackles Laterality: bilateral (bases) Cardio: COMMON NORMALS: regular rate, regular rhythm and No murmurs present (Cardio) RATE: regular rate RHYTHM: regular rhythm GI: COMMON NORMALS: Soft to palpation and No hepatosplenomegaly present A USCULTATION: Yes normoactive bowel sounds PALPATION: Yes Soft to palpation, No Tenderness to palpation present (GI), No Guarding due to palpation present (GI) and Yes No hepatosplenomegaly present : COMMON NORMALS: Yes no CVA tenderness BLADDER/KIDNEY EXAM: Yes no CVA tenderness Back/Pelvis: COMMON NORMALS: no CVA tenderness Extremity: COMMON NORMALS: normal to inspection, capillary refill normal, no clubbing, cyanosis or edema, no calf tenderness and no pedal edema Neuro: SENSORIUM/ORIENTATION: Yes oriented to person, Yes oriented to place and Yes oriented to time Skin: COMMON NORMALS: no rashes or lesions noted GENERAL SKIN EXAM: no rashes or lesions noted Course 2 Vital Signs: Vital signs: Vital Signs Temperature 98.2 F 09/11/23 09:29 Pulse Rate 101 H 09/11/23 10:50 Respiratory Rate 19 H 09/11/23 10:23 Blood Pressure 177/89 09/11/23 10:50 Pulse Oximetry 96 09/11/23 10:23 Oxygen Delivery Me thod Nasal Cannula 09/11/23 10:23 Oxygen Flow Rate 2 09/11/23 10:23 MDM - SOB/Dyspnea Medical Decision Making Exacerbation CHF with NSTEMI. Patient has known coronary disease recently had a angiogram of the most recent hospitalization on amenable to intervention. They had opted for maximizing medical therapy. Patient was discharged home on a steroid taper as well which I think accounts for her elevated white count. No acute infiltrate on chest x-ray this morning. Patient was heparinized topical nitro started. Discussed Dr. Butler discharge patient history as well as Dr. Fountain who attended to the patient during the most recent hospitalization will admit. Medical Records I reviewed the patient's medical records. Lab Data I reviewed the patient's lab results. 09/11/23 09:34 09/11/23 09:34 Labs/Radiology: Radiology Impressions Chest X-Ray 09/11/23 09:31 IMPRESSION: Persistent right basilar consolidation and effusion. No size changer the past 2 days. Laboratory Results WBC 13.26 10^3/uL (3.29-11.43) H 09/11/23 09:34 RBC 4.13 10^6/uL (3.85-5.65) 09/11/23 09:34 Hgb 10.50 g/dL (11.27-16.99) L 09/11/23 09:34 Hct 34.4 % (36-47) L 09/11/23 09:34 MCV 83.3 fl (85-98) L 09/11/23 09:34 MCH 25.4 pg (27-33) L 09/11/23 09:34 MCHC 30.5 g/dL (30-55) 09/11/23 09:34 RDW 16.9 % (12.1-15.1) H 09/11/23 09:34 Plt Count 338 10^3/cmm (157-399) 09/11/23 09:34 MPV 10.6 fL (7.4-10.4) H 09/11/23 09:34 Neut % (Auto) 87.7 % 09/11/23 09:34 Lymph % (Auto) 7.7 % 09/11/23 09:34 Cameron % (Auto) 3.5 % 09/11/23 09:34 Eos % (Auto) 0.7 % 09/11/23 09:34 Baso % (Auto) 0.0 % 09/11/23 09:34 Neut # (Auto) 11.64 10^3/uL (1.8-7.7) H 09/11/23 09:34 Lymph # (Auto) 1.0 10^3/uL (0.8-4.8) 09/11/23 09:34 Cameron # (Auto) 0.5 10^3/uL (0.2-0.9) 09/11/23 09:34 Eos # (Auto) 0.1 10^3/uL (0.0-0.8) 09/11/23 09:34 Baso # (Auto) 0.0 10^3/uL (0.0-0.1) 09/11/23 09:34 Nucleated RBC % (auto) 0 % 09/11/23 09:34 Nucleated RBCs # 0.0 /100WBC 09/11/23 09:34 Sodium 143 mmol/L (136-145) 09/11/23 09:34 Potassium 4.6 mmol/L (3.5-5.1) 09/11/23 09:34 Chloride 109 mmol/L (98-107) H 09/11/23 09:34 Carbon Dioxide 22 mmol/L (22-29) 09/11/23 09:34 Anion Gap 16.6 (5-19) 09/11/23 09:34 BUN 53 mg/dL (8-23) H 09/11/23 09:34 Creatinine 1.7 mg/dL (0.5-0.9) H 09/11/23 09:34 GFR Calculation Not Reportable 09/11/23 09:34 Glucose 206 mg/dL (65-115) H 09/11/23 09:34 Calculated Osmolality 316 mOsm/kg (285-295) H 09/11/23 09:34 Calcium 9.5 mg/dL (8.5-10.5) 09/11/23 09:34 Total Bilirubin 0.4 mg/dL (0.15-1.2) 09/11/23 09:34 AST 30 U/L (0-32) 09/11/23 09:34 ALT 25 U/L (0-33) 09/11/23 09:34 Alkaline Phosphatase 123 U/L (35-105) H 09/11/23 09:34 Troponin T Baseline 2824 ng/L (0-10) H* 09/11/23 09:34 NT-Pro-B Natriuret Pep > 98945 pg/mL (0-125) H 09/11/23 09:34 Total Protein 6.2 g/dL (6.6-8.7) L 09/11/23 09:34 Albumin 3.6 g/dL (3.5-5.2) 09/11/23 09:34 Globulin 2.6 g/dL (1.3-4.6) 09/11/23 09:34 All radiology interpretation(s) finalized by discharge Discharge Plan Discharge Patient Disposition: Admitted As Inpatient Clinical Impression: Acute non-ST elevation myocardial infarction (NSTEMI), Acute exacerbation of CHF (congestive heart failure), HTN (hypertension), Chronic kidney disease, Diabetes mellitus Condition: Stable Prescriptions: No Action Anoro Ellipta 62.5-25 mcg/actuation blister with device 1 inh INHALATION DAILY isosorbide mononitrate 60 mg tablet extended release 24 hr 60 mg PO BID venlafaxine [Effexor XR] 150 mg capsule,extended release 24hr See Rx Instructions .ROUTE .COMPLEX Rx Instructions: TAKE 150 MG BY MOUTH AT BEDTIME ALONG WITH 75 MG potassium chloride 10 mEq tablet extended release 10 meq PO BID Qty: 180 1RF Hold Instructions: Resume on 06/20/23. Jardiance 10 mg tablet 10 mg PO DAILY apixaban 2.5 mg tablet 2.5 mg PO BID Qty: 180 2RF methimazole 5 mg tablet 5 mg PO DAILY Qty: 30 3RF (DME) Accu-Chek Ana M Plus test strp Strip See Rx Instructions .ROUTE .MEDSUPPLY Qty: 120 3RF Rx Instructions: check blood glucose four times a day tizanidine 4 mg tablet 4 mg PO BEDTIME nitroglycerin [Nitrostat] 0.4 mg Tablet, Sublingual 0.4 mg SUBLINGUAL Q5M PRN (Reason: Chest Pain) Rx Instructions: do not exceed 3 doses per episode insulin lispro [Humalog KwikPen Insulin] 100 unit/mL Insulin Pen See Rx Instructions .ROUTE .COMPLEX Rx Instructions: 10 UNITS TID DIRECTED acetaminophen 500 mg Tablet 500 mg PO BEDTIME albuterol sulfate [Ventolin HFA] 90 mcg/actuation Hfa Aerosol Inhaler 2 puff INHALATION QID PRN (Reason: Shortness Of Breath) calcitriol 0.25 mcg capsule See Rx Instructions .ROUTE .COMPLEX Rx Instructions: TAKE 0.25 mcg orally 3 TIMES WEEKLY ON WEDNESDAY, WEDNESDAY, AND WEDNESDAY IN THE MORNING. clopidogrel [Plavix] 75 mg tablet 75 mg PO DAILY Qty: 60 0RF atorvastatin 40 mg tablet 40 mg PO BEDTIME venlafaxine 75 mg capsule,extended release 24hr See Rx Instructions .ROUTE .COMPLEX Rx Instructions: TAKE 75 MG BY MOUTH AT BEDTIME ALONG WITH 150 MG acitretin 10 mg capsule 10 mg PO QAM aspirin 81 mg Tablet,Delayed Release (Dr/Ec) 81 mg PO BEDTIME insulin glargine [Lantus Solostar U-100 Insulin] 100 unit/mL (3 mL) insulin pen See Rx Instructions .ROUTE .COMPLEX Rx Instructions: 20 unit subcutaneously daily as directed ergocalciferol (vitamin D2) [Vitamin D2] 1,250 mcg (50,000 unit) capsule 50,000 unit PO Q7D ferrous gluconate 324 mg (37.5 mg iron) Tablet 324 mg PO EVERY OTHER DAY Qty: 14 0RF hydralazine 50 mg Tablet 75 mg PO TID Qty: 90 0RF amlodipine 10 mg Tablet 10 mg PO DAILY Qty: 30 0RF carvedilol 6.25 mg Tablet 6.25 mg PO BID Qty: 60 0RF bumetanide 1 mg Tablet 1 mg PO DAILY Qty: 60 0RF prednisone 10 mg tablet See Taper PO DIRECTED Qty: 42 0RF Taper: predniSONE 60-10 60 mg Daily for 2 Days and 0 Hour 50 mg Daily for 2 Days and 0 Hour 40 mg Daily for 2 Days and 0 Hour 30 mg Daily for 2 Days and 0 Hour 20 mg Daily for 2 Days and 0 Hour 10 mg Daily for 2 Days and 0 Hour Rx Instructions: Start 60 mg, taper 10 mg every 2-day until you run out of the medication acetaminophen 325 mg Tablet 650 mg PO QID PRN (Reason: pain/fever) Dulcolax (bisacodyl) 10 mg Suppository 10 mg NV DAILY PRN (Reason: Constipation) Referrals: Jocelyne Kirby PA [Primary Care Provider] - Coding Level of Care Code ED Polysomnograph Tech for Kiran Holland
[2023-09-11 10:11] LABS: Alanine Aminotransferase 25 U/L (0-33); Albumin Level 3.6 g/dL (3.5-5.2); Alkaline Phosphatase 123 U/L (35-105); Anion Gap 16.6 (5-19); Aspartate Amino Transferase 30 U/L (0-32); Blood Urea Nitrogen 53 mg/dL (8-23); Calcium 9.5 mg/dL (8.5-10.5); Carbon Dioxide 22 mmol/L (22-29); Chloride 109 mmol/L (98-107); Globulin 2.6 g/dL (1.3-4.6); Glucose 206 mg/dL (65-115); Osmolality Calculated 316 mOsm/kg (285-295); Potassium 4.6 mmol/L (3.5-5.1); Sodium 143 mmol/L (136-145); Total Bilirubin 0.4 mg/dL (0.15-1.2); Total Protein 6.2 g/dL (6.6-8.7)
[2023-09-11] MEDS: bumetanide 0.25 mg/mL SDV 4 mL 1 MG IVP (10:22)
[2023-09-11 10:29] LABS: Troponin(5th) Baseline 2824 ng/L (0-10)
[2023-09-11 10:43] LABS: NT Pro B Type Natriuretic Pept > 70000 pg/mL (0-125)
[2023-09-11] MEDS: nitroglycerin 1 gm/inch oint Pkt 1 INCH TOPICAL (10:50)
[2023-09-11] MEDS: heparin 5,000 unit/mL INJ 1 mL IV (10:56)
[2023-09-11] MEDS: heparin drip 25,000 UNIT/500 ML PREMIX 16.8900000000000006 UNIT IV (10:59)
[2023-09-11] MEDS: hyDRALAzine 20 mg/mL INJ 1 mL 10 MG IVP (11:29)
--- NOTE | 2023-09-11 11:31 | ECG_ITS ---
[facility] Test Date: 2023-09-11 Pat Name: Romi Yuan Department: Room: Gender: Female Rand Sewer: : 1950 Requested By: Tae Mo Order Number: [id number] Tessa MD: Tristin Goldstein M.D. Measurements Intervals [place] Rate: 96 P: 78 AL: 156 QRS: -43 QRSD: 112 T: 90 QT: 355 QTc: 451 Interpretive Statements SINUS RHYTHM LEFT AXIS DEVIATION [QRS AXIS < -30] MODERATE INTRAVENTRICULAR CONDUCTION DELAY [105+ ms QRS DURATION, 80+ ms Q/S IN V1/V2, NO Q AND 60+ ms R IN I/aVL/V5/V6] NONSPECIFIC ST & T-WAVE ABNORMALITY Compared to ECG 09/11/2023 09:32:40 No significant changes Electronically Signed On 09-12-2023 11:20:22 CDT by Tristin Goldstein M.D. [id number]
[2023-09-11 12:21] LABS: Troponin 5 2HR 2638 ng/L (0-10); Troponin 5 2HR Delta -186 ABS# (0-10)
[2023-09-11] MEDS: ipratropium-albuterol 3 mL Neb INHALATION (14:08)
--- NOTE | 2023-09-11 14:37 | PM.HP ---
Providers/Chief Complaint Admitting Physician: Moe Butler MD Primary Care Provider: Jocelyne Kirby Chief Complaint: SOB History of Present Illness Romi Yuan is a 72 year old female with past medical history of CAD post CABG, CHF with most recent cardiac angiogram in June 2023 which showed patent LOVETT to LAD, patent LCx. SVG graft to RCA, SVG to OM and pilot station RCA known occluded with subtotal occlusion of small to medium diagonal and moderate subclavian artery stenosis. She was recently in the hospital for 1 week for respiratory failure for COPD exacerbation and CHF and was discharged to SNF for rehabitation on 09/09. She presented again to the ER today morning because of difficulty in breathing and not able to catch her breath. Patient states she had a very restful night but when she woke up today morning she was having difficulty breathing not improving with nebulization treatment and presented to the ER. In the ER she was found to have an elevated troponin of more than 2800. Patient was hemodynamically stable saturating more than 95% on 2 L. Examination in CSU patient is laying comfortably in bed still complaining of mild chest pressure but improved with nitro patch. Breathing is better now. Review of Systems General: Reports: 10 or more systems reviewed and unremarkable except in HPI and below Const: Denies: fever(s), chills, body aches, change in appetite, change in weight, malaise, night sweats, diaphoresis, change in sleep pattern, daytime sleepiness or snoring Eyes: Denies: change in vision, blurry vision, photophobia, eye discomfort or eye discharge ENMT: Denies: throat pain, enlarged tonsils, hoarseness, mouth pain, oral sores, dry mouth, tinnitus, nasal congestion or post nasal drip Card: Denies: chest pain, palpitations, irregular heart rhythm, edema, swelling of feet/ankles, lightheadedness, syncope, pre-syncope, dyspnea on exertion, orthopnea, leg pain with exertion or acrocyanosis Resp: Denies: dyspnea, productive cough, non-productive cough, wheezing, stridor, pain on inspiration, change in phlegm color, hemoptysis or chest congestion GI: Denies: abdominal pain, nausea, vomiting, hematemesis, coffee ground emesis, dysphagia, heartburn, diarrhea, constipation, bloating, GI cramping, change in bowel habits, pain on defecation, hematochezia or melena : Denies: flank pain, dysuria, urinary frequency, urinary urgency, urinary hesitancy, nocturia or hematuria Musc: Denies: neck pain, back pain, extremity pain, joint pain, joint swelling, joint redness, joint stiffness or limited range of motion Neuro: Denies: headache(s), numbness in extremities, weakness in extremities, sensory changes, lack of coordination, difficulty walking, frequent falls, dizziness, vertigo, confusion, Slurred speech present, difficulty communicating thoughts or seizure-like activity Psych: Denies: anxiety, depression, mood swings, panic attacks, hopelessness or irritability Endo: Denies: polyuria, polydipsia, tired all the time, cold intolerance, excessive sweating, flushing or heat intolerance Alonzo/Lymph: Denies: easy bruising or easy bleeding All/Imm: Denies: tongue swelling, facial swelling or acute wheezing Medications/Allergies Home Medications Medication Instructions Recorded Confirmed Last Taken Type isosorbide mononitrate 60 mg 60 mg PO BID 07/20/19 09/11/23 09/11/23 History tablet,extended release 24 hr umeclidinium 62.5 mcg-vilanterol 1 inh inhalation DAILY 07/20/19 09/11/23 09/11/23 History 25 mcg/actuation powdr for inhalation (Anoro Ellipta) venlafaxine 150 mg See Rx Instructions .Route .COMPLEX 07/20/19 09/11/23 09/10/23 History capsule,extended release 24 hr (Effexor XR) methimazole 5 mg tablet 5 mg PO DAILY #30 tabs 03/11/20 09/11/23 09/11/23 Rx blood sugar diagnostic (Accu-Chek #120 ea 06/23/21 09/11/23 Unknown Rx Ana M Plus test strips) clopidogrel 75 mg tablet (Plavix) 75 mg PO DAILY #60 tabs 06/15/22 09/11/23 09/11/23 Rx acitretin 10 mg capsule 10 mg PO QAM 06/19/22 09/11/23 06/16/23 History atorvastatin 40 mg tablet 40 mg PO BEDTIME 06/19/22 09/11/23 09/10/23 History venlafaxine 75 mg capsule,extended See Rx Instructions .Route .COMPLEX 06/19/22 09/11/23 09/10/23 History release 24 hr acetaminophen 500 mg tablet 500 mg PO BEDTIME 07/09/22 09/11/23 09/10/23 History albuterol sulfate 90 mcg/actuation 2 puff inhalation QID PRN 07/09/22 09/11/23 09/11/23 History aerosol inhaler (Ventolin HFA) Shortness Of Breath insulin lispro 100 unit/mL See Rx Instructions .Route .COMPLEX 07/09/22 09/11/23 09/11/23 History subcutaneous pen (Humalog KwikPen (U-100) Insulin) nitroglycerin 0.4 mg sublingual 0.4 mg sublingual Q5M PRN Chest 07/09/22 09/11/23 02/26/23 History tablet (Nitrostat) Pain tizanidine 4 mg tablet 4 mg PO BEDTIME 07/09/22 09/11/23 09/10/23 History empagliflozin 10 mg tablet 10 mg PO DAILY 09/07/22 09/11/23 09/11/23 History (Jardiance) potassium chloride 10 mEq 10 meq PO BID #180 tabs 11/26/22 09/11/23 09/11/23 Rx tablet,extended release apixaban 2.5 mg tablet 2.5 mg PO BID #180 tabs 05/19/23 09/11/23 09/11/23 Rx calcitriol 0.25 mcg capsule See Rx Instructions .Route .COMPLEX 06/17/23 09/11/23 06/16/23 History aspirin 81 mg tablet,delayed 81 mg PO BEDTIME 09/03/23 09/11/23 09/10/23 History release ergocalciferol (vitamin D2) 1,250 50,000 unit PO Q7D 09/03/23 09/11/23 09/08/23 History mcg (50,000 unit) capsule (Vitamin D2) insulin glargine 100 unit/mL (3 See Rx Instructions .Route .COMPLEX 09/03/23 09/11/23 09/10/23 History mL) subcutaneous pen (Lantus Solostar U-100 Insulin) amlodipine 10 mg tablet 10 mg PO DAILY #30 tabs 09/10/23 09/11/23 09/11/23 Rx bumetanide 1 mg tablet 1 mg PO DAILY #60 tabs 09/10/23 09/11/23 Unknown Rx carvedilol 6.25 mg tablet 6.25 mg PO BID #60 tabs 09/10/23 09/11/23 09/11/23 Rx ferrous gluconate 324 mg (37.5 mg 324 mg PO EVERY OTHER DAY #14 tabs 09/10/23 09/11/23 Unknown Rx iron) tablet hydralazine 50 mg tablet 75 mg (1.5 x 50 mg) PO TID #90 tabs 09/10/23 09/11/23 09/11/23 Rx prednisone 10 mg tablet See Taper PO DIRECTED #42 tabs 09/10/23 09/11/23 09/11/23 Rx acetaminophen 325 mg tablet 650 mg PO QID PRN pain/fever 09/11/23 09/11/23 Unknown History bisacodyl 10 mg rectal suppository 10 mg RI DAILY PRN Constipation 09/11/23 09/11/23 Unknown History (Dulcolax (bisacodyl)) Allergies Allergy/AdvReac Type Severity Reaction Status Date / Time cefuroxime [From Ceftin] Allergy ALGY-Rash Verified 09/11/23 10:19 cephalexin [From Keflex] Allergy ALGY-Rash Verified 09/11/23 10:19 hydroxyzine [From Vistaril] Allergy ALGY-Anaphy Verified 09/11/23 10:19 laxis Penicillins Allergy ALGY-Redness Verified 09/11/23 10:19 of Skin prochlorperazine Allergy ALGY-Anaphy Verified 09/11/23 10:19 [From Compazine] laxis promethazine [From Phenergan] Allergy ALGY-Anaphy Verified 09/11/23 10:19 laxis venom-honey bee Allergy ALGY-Anaphy Verified 09/11/23 10:19 laxis simvastatin [From Zocor] AdvReac ADR-Heartbu Verified 09/11/23 10:19 rn PFSH Acute PFSH: Medical History Diabetes mellitus PAD (peripheral artery disease) Dyslipidemia HTN (hypertension) NSTEMI (non-ST elevated myocardial infarction) Eczema CAD (coronary artery disease) Clostridioides difficile infection (07/2022) Insomnia CHF (congestive heart failure) Chronic kidney disease Hypertensive urgency Pneumonia due to COVID-19 virus (~06/2022) Colon polyps History of skin cancer Hyperthyroidism Graves disease History of CVA (cerebrovascular accident) COPD (chronic obstructive pulmonary disease) Anxiety Carotid arterial disease ASHD (arteriosclerotic heart disease) Surgical History Status post insertion of iliac artery stent History of coronary artery stent placement History of cardiac catheterization 06/25/2022 Left main artery: Short, patent. Left circumflex artery: Has patent stents, no significant stenosis. LAD:Occluded in the midsegment. RCA: Known occluded. Not injected. SVG to diagonal artery and SVG to RCA are known occluded. Not injected. LOVETT to LAD: Patent. Coronary anatomy unchanged compared to before. History of renal stent Hx of local excision of skin lesion (09/16/20) Left forearm x2 Status post colonoscopy (09/16/20) S/P hysterectomy with oophorectomy S/P cholecystectomy S/P CABG (coronary artery bypass graft) twice, last in 2004 History of endovascular stent graft for abdominal aortic aneurysm (AAA) S/P cataract surgery S/P skin and subcutaneous tissue surgery Family History Sister Mark's disease Sister No problems noted. Mother No problems noted. Other Anesthesia complication Social History Smoking and tobacco/nicotine status: former use of tobacco/nicotine Alcohol intake: current Alcohol intake frequency: holidays/special occasions only Substance/Drug Use: current Vitals/I&O/Wt Last Vital Signs Temp 98.2 F 09/11/23 09:29 Pulse 105 H 09/11/23 14:19 Resp 18 09/11/23 14:19 BP 168/77 09/11/23 12:39 Pulse Ox 97 09/11/23 14:19 O2 Del Method Nasal Cannula 09/11/23 14:19 O2 Flow Rate 2 09/11/23 14:19 Weight last 48 hrs Weight 60.328 kg Physical Exam Narrative: General: No acute distress, AO x3, chronically sick appearing, anxious HEENT: PERRLA, pupils bilaterally equal and reactive Chest: Bilateral bronchial breath sounds with occasional rhonchi, finder was present in bilateral lower zone CVS: S1-S2 regular, pansystolic murmur at apex radiating to axilla , no tachycardia, no gallops, no rubs Abdomen: Soft, nontender, no organomegaly, bowel sounds present Neuro: No focal deficits, no facial deformity, AO x3, power 5/5 in all limbs Data 09/11/23 09:34 09/11/23 09:34 A&P Assessment and plan (1) Acute non-ST elevation myocardial infarction (NSTEMI): Recurrent admissions. Post CABG. Most recent cardiac angiogram in June 2023. Was decided to be managed medically at that time. Denies any active chest pain,. Troponins elevated. Cycle troponin. Echocardiogram. Continue with home dose of aspirin, Plavix, statin, beta-lexy for now. Cardiology consulted from the ER. Patient would like to have conservative treatment. She does not want to undergo cardiac angiogram because she is aware that she is at a high risk of needing dialysis and she does not want to risk that. Toprol could be elevated also in setting of possible pulmonary embolism. Follow-up echocardiogram. VQ scan once available. Continue with heparin drip for now. (2) Atherosclerotic heart disease of pilot station coronary artery with other forms of angina pectoris: Continue with home dose of Imdur 60 mg twice daily. Will uptitrate as her blood pressures. Can plan to add Ranexa. Will await cardiology recommendations. (3) Congestive heart failure: Currently euvolemic. Continue with Bumex 1 mg twice daily. Check to confirm starting, daily weights. Munson catheter. Qualifiers: Heart failure chronicity: chronic Heart failure type: combined systolic and diastolic Qualified Code(s): I50.42 - Chronic combined systolic (congestive) and diastolic (congestive) heart failure (4) Ischemic cardiomyopathy: (5) HTN (hypertension): Goal blood pressure less than 140/90 mmHg. For now continue with home dose of amlodipine, hydralazine, Imdur, Coreg. Uptitrate as per goal blood pressures. Qualifiers: Hypertension type: primary hypertension Qualified Code(s): I10 - Essential (primary) hypertension (6) Pulmonary embolism: Past medical history. Chronically on Eliquis. Cannot rule out symptoms in setting of acute pulmonary embolism. Patient chronically on Eliquis 2.5 mg twice daily but should be on 5 mg twice daily given advanced age. Can plan to check nuclear study to rule out PE. Till that time continue with heparin drip which will also suffice for treatment for pulmonary embolism. Qualifiers: Pulmonary embolism type: multiple subsegmental (without acute cor pulmonale) Qualified Code(s): I26.94 - Multiple subsegmental pulmonary emboli without acute cor pulmonale (7) Chronic kidney disease: Creatinine stable at 1.7 for now. Monitor electrolytes and BMP daily. Qualifiers: Chronic kidney disease stage: stage 3 (moderate) Chronic kidney disease stage 3 subtype: stage 3a (GFR 45-59) Qualified Code(s): N18.31 - Chronic kidney disease, stage 3a (8) Diabetes mellitus: Sliding scale. Carb consistent diet. Plan CODE STATUS: Discussed today with the patient. Patient states she is tired. Does not want to to have aggressive treatment. She does not want cardiac angiogram or CTA as that would put her at higher risk of needing dialysis. CODE STATUS DNR/DNI. Carb consistent cardiac Diet Protonix for PUD Prophylaxis Heparin Drip Will Be Sufficient for DVT Prophylaxis Attestations Medical Necessity Statement*: Admission: 2 midnight for non-ST elevation NV in a patient who was recently discharged for COPD exacerbation postextubation, past medical history of CAD post CABG Diagnoses Acute non-ST elevation myocardial infarction (NSTEMI) I21.4 Atherosclerotic heart disease of pilot station coronary artery with other forms of angina pectoris I25.118 Chronic combined systolic and diastolic congestive heart failure I50.42 Heart failure chronicity: chronic Heart failure type: combined systolic and diastolic Ischemic cardiomyopathy I25.5 Primary hypertension I10 Hypertension type: primary hypertension Multiple subsegmental pulmonary emboli without acute cor pulmonale I26.94 Pulmonary embolism type: multiple subsegmental (without acute cor pulmonale) Stage 3a chronic kidney disease N18.31 Chronic kidney disease stage: stage 3 (moderate) Chronic kidney disease stage 3 subtype: stage 3a (GFR 45-59) Diabetes mellitus E11.9
[2023-09-11] MEDS: hyDRALAzine 50 mg Tablet 75 MG PO ×2 (16:28→21:20)
--- NOTE | 2023-09-11 16:30 | ECG_ITS ---
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 Measurements Intervals Barnes Rate: 117 P: 77 TX: 158 QRS: -37 QRSD: 111 T: 63 QT: 318 QTc: 445 Interpretive Statements SINUS TACHYCARDIA LEFT AXIS DEVIATION [QRS AXIS < -30] MODERATE INTRAVENTRICULAR CONDUCTION DELAY [105+ ms QRS DURATION, 80+ ms Q/S IN V1/V2, NO Q AND 60+ ms R IN I/aVL/V5/V6] MODERATE ST DEPRESSION [0.05+ mV ST DEPRESSION] Compared to ECG 09/11/2023 11:33:57 ST (T wave) deviation now present Sinus rhythm no longer present T-wave abnormality no longer present Electronically Signed On 09-12-2023 11:18:39 CDT by Tristin Goldstein M.D. [id number]
[2023-09-11 16:36] LABS: Troponin 5 6HR 1999 ng/L (0-10); Troponin 5 6HR Delta -825 ng/L (0-12)
[2023-09-11 16:56] LABS: Glucose Point of Care 185 mg/dL (70-110)
[2023-09-11] MEDS: insulin lispro 100 unit/1 mL SUBCUT (16:58)
[2023-09-11] MEDS: isosorbide mononitrate ER 60 mg Tablet PO (16:58)
[2023-09-11] MEDS: bumetanide 1 mg Tablet PO (16:58)
[2023-09-11] MEDS: potassium chloride ER 10 mEq Tablet PO (16:58)
[2023-09-11] MEDS: metoprolol tartrate 1 mg/1 mL SDV 5 mL 5 MG IVP (17:05)
[2023-09-11] MEDS: predniSONE 10 mg Tablet 40 MG PO (17:57)
[2023-09-11] MEDS: ALPRAZolam 0.5 mg Tablet 0.25 MG PO (17:57)
[2023-09-11] MEDS: levalbuterol 0.63 mg/3 mL Neb 0.630000000000000004 MG INHALATION (19:46)
[2023-09-11] MEDS: ipratropium 0.5 mg/2.5 mL Neb INHALATION (19:46)
--- NOTE | 2023-09-11 20:39 | P.CONIM_ITS ---
Providers/Reason For Consult 2 Consulting Physician/Specialty*: Tristin Goldstein MD/ Cardiology Reason for Consult*: NSTEMI/ Respiratory failure Requesting Physician: Dr Menchaca Attending Physician: Moe Butler MD Primary Care Provider: Jocelyne Kirby History of Present Illness History of Present Illness Romi Yuan is a 72 year old female with past medical history of CAD and prior CABG, diabetes was recurrent admissions with hypertensive emergency, troponin elevation and pulmonary edema. She presented to hospital with acute shortness of breath. Denies chest pain. Her initial troponin was elevated at 2800 and has trended downward since. Blood pressure was very high. She is not very compliant with medications. Review of Systems 2 General: Reports: 10 or more systems reviewed and unremarkable except in HPI and below Const: Denies: fever(s), chills or body aches Eyes: Denies: change in vision, blurry vision or photophobia ENMT: Reports: hoarseness; Denies: throat pain, enlarged tonsils, odynophagia or nasal congestion Card: Reports: dyspnea on exertion; Denies: chest pain, palpitations, irregular heart rhythm, edema, swelling of feet/ankles, lightheadedness, pre-syncope or orthopnea Resp: Denies: dyspnea, productive cough, non-productive cough, wheezing, stridor, pain on inspiration, change in phlegm color, hemoptysis or chest congestion GI: Denies: abdominal pain, nausea, vomiting, hematemesis, coffee ground emesis, dysphagia, heartburn, diarrhea, constipation, GI cramping, change in stool character, hematochezia or melena : Denies: flank pain, difficulty voiding, dysuria, urinary frequency, urinary urgency, urinary hesitancy or hematuria Musc: Denies: neck pain, back pain, extremity pain, joint swelling, joint warmth or deformity Neuro: Denies: headache(s), numbness in extremities, weakness in extremities, sensory changes, difficulty walking, frequent falls, dizziness, vertigo, behavioral changes, Slurred speech present or seizure-like activity Psych: Denies: anxiety, depression, suicidal ideation or homicidal ideation Endo: Denies: polyuria, polydipsia, tired all the time, cold intolerance or hot flashes Alonzo/Lymph: Denies: easy bruising or easy bleeding Medications/Allergies Home Medications Medication Instructions Recorded Confirmed Last Taken Type isosorbide mononitrate 60 mg 60 mg PO BID 07/20/19 09/11/23 09/11/23 History tablet,extended release 24 hr umeclidinium 62.5 mcg-vilanterol 1 inh inhalation DAILY 07/20/19 09/11/23 09/11/23 History 25 mcg/actuation powdr for inhalation (Anoro Ellipta) venlafaxine 150 mg See Rx Instructions .Route .COMPLEX 07/20/19 09/11/23 09/10/23 History capsule,extended release 24 hr (Effexor XR) methimazole 5 mg tablet 5 mg PO DAILY #30 tabs 03/11/20 09/11/23 09/11/23 Rx blood sugar diagnostic (Accu-Chek #120 ea 06/23/21 09/11/23 Unknown Rx Ana M Plus test strips) clopidogrel 75 mg tablet (Plavix) 75 mg PO DAILY #60 tabs 06/15/22 09/11/23 09/11/23 Rx acitretin 10 mg capsule 10 mg PO QAM 06/19/22 09/11/23 06/16/23 History atorvastatin 40 mg tablet 40 mg PO BEDTIME 06/19/22 09/11/23 09/10/23 History venlafaxine 75 mg capsule,extended See Rx Instructions .Route .COMPLEX 06/19/22 09/11/23 09/10/23 History release 24 hr acetaminophen 500 mg tablet 500 mg PO BEDTIME 07/09/22 09/11/23 09/10/23 History albuterol sulfate 90 mcg/actuation 2 puff inhalation QID PRN 07/09/22 09/11/23 09/11/23 History aerosol inhaler (Ventolin HFA) Shortness Of Breath insulin lispro 100 unit/mL See Rx Instructions .Route .COMPLEX 07/09/22 09/11/23 09/11/23 History subcutaneous pen (Humalog KwikPen (U-100) Insulin) nitroglycerin 0.4 mg sublingual 0.4 mg sublingual Q5M PRN Chest 07/09/22 09/11/23 02/26/23 History tablet (Nitrostat) Pain tizanidine 4 mg tablet 4 mg PO BEDTIME 07/09/22 09/11/23 09/10/23 History empagliflozin 10 mg tablet 10 mg PO DAILY 09/07/22 09/11/23 09/11/23 History (Jardiance) potassium chloride 10 mEq 10 meq PO BID #180 tabs 11/26/22 09/11/23 09/11/23 Rx tablet,extended release apixaban 2.5 mg tablet 2.5 mg PO BID #180 tabs 05/19/23 09/11/23 09/11/23 Rx calcitriol 0.25 mcg capsule See Rx Instructions .Route .COMPLEX 06/17/23 09/11/23 06/16/23 History aspirin 81 mg tablet,delayed 81 mg PO BEDTIME 09/03/23 09/11/23 09/10/23 History release ergocalciferol (vitamin D2) 1,250 50,000 unit PO Q7D 09/03/23 09/11/23 09/08/23 History mcg (50,000 unit) capsule (Vitamin D2) insulin glargine 100 unit/mL (3 See Rx Instructions .Route .COMPLEX 09/03/23 09/11/23 09/10/23 History mL) subcutaneous pen (Lantus Solostar U-100 Insulin) amlodipine 10 mg tablet 10 mg PO DAILY #30 tabs 09/10/23 09/11/23 09/11/23 Rx bumetanide 1 mg tablet 1 mg PO DAILY #60 tabs 09/10/23 09/11/23 Unknown Rx carvedilol 6.25 mg tablet 6.25 mg PO BID #60 tabs 09/10/23 09/11/23 09/11/23 Rx ferrous gluconate 324 mg (37.5 mg 324 mg PO EVERY OTHER DAY #14 tabs 09/10/23 09/11/23 Unknown Rx iron) tablet hydralazine 50 mg tablet 75 mg (1.5 x 50 mg) PO TID #90 tabs 09/10/23 09/11/23 09/11/23 Rx prednisone 10 mg tablet See Taper PO DIRECTED #42 tabs 09/10/23 09/11/23 09/11/23 Rx acetaminophen 325 mg tablet 650 mg PO QID PRN pain/fever 09/11/23 09/11/23 Unknown History bisacodyl 10 mg rectal suppository 10 mg [place] DAILY PRN Constipation 09/11/23 09/11/23 Unknown History (Dulcolax (bisacodyl)) Allergies Allergy/AdvReac Type Severity Reaction Status Date / Time cefuroxime [From Ceftin] Allergy ALGY-Rash Verified 09/11/23 10:19 cephalexin [From Keflex] Allergy ALGY-Rash Verified 09/11/23 10:19 hydroxyzine [From Vistaril] Allergy ALGY-Anaphy Verified 09/11/23 10:19 laxis Penicillins Allergy ALGY-Redness Verified 09/11/23 10:19 of Skin prochlorperazine Allergy ALGY-Anaphy Verified 09/11/23 10:19 [From Compazine] laxis promethazine [From Phenergan] Allergy ALGY-Anaphy Verified 09/11/23 10:19 laxis venom-honey bee Allergy ALGY-Anaphy Verified 09/11/23 10:19 laxis simvastatin [From Zocor] AdvReac ADR-Heartbu Verified 09/11/23 10:19 rn Current Medications Generic Name Dose Route Start Last Admin Trade Name Freq PRN Reason Stop Dose Admin Alprazolam 0.25 mg 09/11/23 17:30 09/11/23 17:57 Alprazolam 0.5 Mg Tablet PO 0.25 mg BID PRN Administration ANXIETY Bumetanide 1 mg 09/11/23 18:00 09/11/23 16:58 Bumetanide 1 Mg Tablet PO 1 mg BIDWM YASMANI Administration Heparin Sodium (Porcine) 0 unit 09/11/23 10:30 09/11/23 10:56 Heparin 5,000 Unit/Ml Inj 1 Ml IV 4,000 unit PRN PRN Administration Heparin weight-base protocol Protocol Hydralazine HCl 75 mg 09/11/23 15:00 09/11/23 16:28 Hydralazine 50 Mg Tablet PO 75 mg TID YASMANI Administration Heparin Sodium/Sodium Chloride 25,000 unit in 500 mls @ 0 mls/hr 09/11/23 10:30 09/11/23 10:59 Heparin Drip IV 14 unit/kg/hr .Q0M YASMANI 16.89 mls/hr Administration Protocol Per Protocol Insulin Human Lispro 0 unit 09/11/23 18:00 09/11/23 16:58 Insulin Lispro 100 Unit/1 Ml SUBCUT 4 unit WM&BEDTIME YASMANI Administration Protocol Ipratropium Monon 0.5 mg 09/11/23 20:00 09/11/23 19:46 Ipratropium 0.5 Mg/2.5 Ml Neb INHALATION 0.5 mg Q6H.RESP YASMANI Administration Isosorbide Mononitrate 60 mg 09/11/23 18:00 09/11/23 16:58 Isosorbide Mononitrate Er 60 Mg Tablet PO 60 mg BID YASMANI Administration Levalbuterol HCl 0.63 mg 09/11/23 20:00 09/11/23 19:46 Levalbuterol 0.63 Mg/3 Ml Neb INHALATION 0.63 mg Q6H.RESP YASMANI Administration Potassium Chloride 10 meq 09/11/23 18:00 09/11/23 16:58 Potassium Chloride Er 10 Meq Tablet PO 10 meq BID YASMANI Administration Prednisone 60 mg 09/11/23 13:15 09/11/23 17:57 Prednisone 10 Mg Tablet PO 09/23/23 13:14 60 mg DAILY YASMANI Administration Taper PFSH Acute 2 PFSH: Medical History Diabetes mellitus PAD (peripheral artery disease) Dyslipidemia HTN (hypertension) NSTEMI (non-ST elevated myocardial infarction) Eczema CAD (coronary artery disease) Clostridioides difficile infection (07/2022) Insomnia CHF (congestive heart failure) Chronic kidney disease Hypertensive urgency Pneumonia due to COVID-19 virus (~06/2022) Colon polyps History of skin cancer Hyperthyroidism Graves disease History of CVA (cerebrovascular accident) COPD (chronic obstructive pulmonary disease) Anxiety Carotid arterial disease ASHD (arteriosclerotic heart disease) Surgical History Status post insertion of iliac artery stent History of coronary artery stent placement History of cardiac catheterization 06/25/2022 Left main artery: Short, patent. Left circumflex artery: Has patent stents, no significant stenosis. LAD:Occluded in the midsegment. RCA: Known occluded. Not injected. SVG to diagonal artery and SVG to RCA are known occluded. Not injected. LOVETT to LAD: Patent. Coronary anatomy unchanged compared to before. History of renal stent Hx of local excision of skin lesion (09/16/20) Left forearm x2 Status post colonoscopy (09/16/20) S/P hysterectomy with oophorectomy S/P cholecystectomy S/P CABG (coronary artery bypass graft) twice, last in 2004 History of endovascular stent graft for abdominal aortic aneurysm (AAA) S/P cataract surgery S/P skin and subcutaneous tissue surgery Family History Sister Mark's disease Sister No problems noted. Mother No problems noted. Other Anesthesia complication Social History Smoking and tobacco/nicotine status: former use of tobacco/nicotine Alcohol intake: current Alcohol intake frequency: holidays/special occasions only Substance/Drug Use: current Vitals/I&O/Wt Last Vital Signs Temp 98.0 F 09/11/23 20:00 Pulse 94 09/11/23 20:00 Resp 20 H 09/11/23 20:00 BP 116/74 09/11/23 20:00 Pulse Ox 95 09/11/23 20:00 O2 Del Method BiPAP 09/11/23 20:00 O2 Flow Rate 2 09/11/23 14:19 FiO2 30 09/11/23 19:50 09/11/23 09/11/23 09/11/23 06:59 14:59 22:59 Intake Total 120 / 120 Balance 120 / 120 Weight last 48 hrs Weight 133 lb Weight 133 lb Physical Exam 2 Narrative: GENERAL: Patient is alert, awake and oriented x3. [] NECK: No jugular vein distension. [] HEENT: No cyanosis. No icterus. No pallor. [] HEART: Regular S1 and S2. No murmur, rub or gallop. [] LUNGS: Bilateral crackles CENTRAL NERVOUS SYSTEM: Grossly nonfocal. [] EXTREMITIES: Lower extremities with 1+ edema bilaterally. Data 09/13/23 04:17 09/13/23 04:17 A&P Assessment and plan (1) Acute non-ST elevation myocardial infarction (NSTEMI): (2) Atherosclerotic heart disease of [place] coronary artery with other forms of angina pectoris: (3) Congestive heart failure: Qualifiers: Heart failure chronicity: chronic Heart failure type: combined systolic and diastolic Qualified Code(s): I50.42 - Chronic combined systolic (congestive) and diastolic (congestive) heart failure (4) Ischemic cardiomyopathy: (5) HTN (hypertension): Qualifiers: Hypertension type: primary hypertension Qualified Code(s): I10 - Essential (primary) hypertension (6) Pulmonary embolism: Qualifiers: Pulmonary embolism type: multiple subsegmental (without acute cor pulmonale) Qualified Code(s): I26.94 - Multiple subsegmental pulmonary emboli without acute cor pulmonale (7) Chronic kidney disease: Qualifiers: Chronic kidney disease stage: stage 3 (moderate) Chronic kidney disease stage 3 subtype: stage 3a (GFR 45-59) Qualified Code(s): N18.31 - Chronic kidney disease, stage 3a (8) Diabetes mellitus: Plan Patient's presentation of significant troponin elevation, shortness of breath and pulmonary edema likely secondary to hypertensive emergency. She is not compliant with medications. Continue BiPAP. Continue anticoagulation with heparin. Continue diuretics. We will obtain echocardiogram. If significant drop in EF we will discuss coronary angiogram. Otherwise will recommend to medically manage. She is in agreement. Does not want to have contrast secondary to risk of contrast-induced nephropathy. Had a recent coronary angiogram that was unchanged from before. Thanku for involving us with care of this patient. We will continue to follow. please call with questions. Consult Attestations 2 Medical Necessity Statement: Care expected to cross 2 midnights. Coding Level of Care Code Acute Code for [facility] Diagnoses Acute non-ST elevation myocardial infarction (NSTEMI) I21.4 Atherosclerotic heart disease of [place] coronary artery with other forms of angina pectoris I25.118 Chronic combined systolic and diastolic congestive heart failure I50.42 Heart failure chronicity: chronic Heart failure type: combined systolic and diastolic Ischemic cardiomyopathy I25.5 Primary hypertension I10 Hypertension type: primary hypertension Multiple subsegmental pulmonary emboli without acute cor pulmonale I26.94 Pulmonary embolism type: multiple subsegmental (without acute cor pulmonale) Stage 3a chronic kidney disease N18.31 Chronic kidney disease stage: stage 3 (moderate) Chronic kidney disease stage 3 subtype: stage 3a (GFR 45-59) Diabetes mellitus E11.9
[2023-09-11 20:50] LABS: Glucose Point of Care 115 mg/dL (70-110)
[2023-09-11] MEDS: venlafaxine ER (24HR) 75 mg Capsule PO (21:19)
[2023-09-11] MEDS: metoprolol tartrate 50 mg Tablet PO (21:19)
[2023-09-11] MEDS: venlafaxine ER (24HR) 150 mg Capsule PO (21:19)
[2023-09-11] MEDS: atorvastatin 40 mg Tablet PO (21:19)
[2023-09-11] MEDS: aspirin 81 mg EC Tablet PO (21:20)
[2023-09-11 21:53] LABS: Partial Thromboplastin Time 159.5 SECONDS (23.9-36.7)
[2023-09-12] VITALS (14 sets, daily range): BP systolic 127–175; BP diastolic 57–90; PULSE 15–97; RESP 13–25; TEMP 36.3–37; O2SAT 94–99
[2023-09-12] MEDS: levalbuterol 0.63 mg/3 mL Neb 0.630000000000000004 MG INHALATION ×4 (02:00→20:01)
[2023-09-12] MEDS: ipratropium 0.5 mg/2.5 mL Neb INHALATION ×4 (02:00→20:01)
[2023-09-12 03:52] LABS: Hematocrit 31.2 % (36-47); Lymphocytes # 0.6 10^3/uL (0.8-4.8); Lymphocytes % 6.1 %; Mean Corpuscular HGB Conc 30.8 g/dL (30-55); Mean Corpuscular Hemoglobin 25.8 pg (27-33); Mean Corpuscular Volume 83.9 fl (85-98); Mean Platelet Volume 10.9 fL (7.4-10.4); Monocytes # 0.1 10^3/uL (0.2-0.9); Monocytes % 0.7 %; Neutrophils # 8.42 10^3/uL (1.8-7.7); Neutrophils % 92.8 %; Nucleated Red Blood Cells % 0 %; Platelet Count 290 10^3/cmm (157-399); Red Blood Count 3.72 10^6/uL (3.85-5.65); Red Cell Distribution Width 17.2 % (12.1-15.1); White Blood Count 9.07 10^3/uL (3.29-11.43)
[2023-09-12 03:56] LABS: Partial Thromboplastin Time 31.7 SECONDS (23.9-36.7)
[2023-09-12 04:05] LABS: Alanine Aminotransferase 18 U/L (0-33); Albumin Level 3.2 g/dL (3.5-5.2); Alkaline Phosphatase 105 U/L (35-105); Anion Gap 16.7 (5-19); Aspartate Amino Transferase 20 U/L (0-32); Blood Urea Nitrogen 56 mg/dL (8-23); Calcium 9.4 mg/dL (8.5-10.5); Carbon Dioxide 22 mmol/L (22-29); Chloride 110 mmol/L (98-107); Globulin 2.5 g/dL (1.3-4.6); Glucose 208 mg/dL (65-115); Osmolality Calculated 320 mOsm/kg (285-295); Phosphorus 2.7 mg/dL (2.5-4.5); Potassium 4.7 mmol/L (3.5-5.1); Sodium 144 mmol/L (136-145); Total Bilirubin 0.3 mg/dL (0.15-1.2); Total Protein 5.7 g/dL (6.6-8.7)
[2023-09-12 06:26] LABS: Glucose Point of Care 221 mg/dL (70-110)
[2023-09-12] MEDS: bumetanide 1 mg Tablet PO ×2 (08:38→18:19)
[2023-09-12] MEDS: pantoprazole DR 40 mg Tablet PO (08:38)
[2023-09-12] MEDS: predniSONE 10 mg Tablet 40 MG PO (08:38)
[2023-09-12] MEDS: methIMAzole 5 MG Tablet PO (08:39)
[2023-09-12] MEDS: isosorbide mononitrate ER 60 mg Tablet PO (08:39)
[2023-09-12] MEDS: amlodipine 10 mg Tablet PO (08:39)
[2023-09-12] MEDS: hyDRALAzine 50 mg Tablet 75 MG PO ×3 (08:39→22:01)
[2023-09-12] MEDS: metoprolol tartrate 50 mg Tablet PO ×2 (08:39→22:00)
[2023-09-12] MEDS: clopidogrel 75 mg Tablet PO (08:39)
[2023-09-12] MEDS: insulin lispro 100 unit/1 mL SUBCUT ×4 (08:43→22:04)
[2023-09-12] MEDS: potassium chloride ER 10 mEq Tablet PO ×2 (08:43→18:19)
[2023-09-12 08:49] LABS: Partial Thromboplastin Time 77.6 SECONDS (23.9-36.7)
--- NOTE | 2023-09-12 09:40 | P.PN_ITS ---
Subjective 2 Subjective: No complaints overnight. States feeling a lot better today. Seen sitting up in chair today. Slept well on BiPAP. Currently on nasal cannula. Denies any further chest pain or chest pressure. States she is feeling almost back to her baseline. Vitals/I&O/Wt Last Vital Signs Temp 97.4 F L 09/12/23 07:15 Pulse 77 09/12/23 07:21 Resp 14 09/12/23 07:21 BP 127/70 09/12/23 07:15 Pulse Ox 99 09/12/23 07:21 O2 Del Method BiPAP 09/12/23 07:21 O2 Flow Rate 2 09/11/23 14:19 FiO2 30 09/12/23 07:21 09/11/23 09/12/23 09/12/23 22:59 06:59 14:59 Intake Total 311.702 / 311.702 380 / 691.702 540 / 540 Output Total 1300 / 1300 Balance 311.702 / 311.702 -920 / -608.298 540 / 540 Weight last 48 hrs Weight 60.464 kg Weight 60.328 kg Weight 60.328 kg Physical Exam 2 Narrative: General: No acute distress, AO x3, chronically sick appearing, anxious HEENT: PERRLA, pupils bilaterally equal and reactive Chest: Bilateral bronchial breath sounds with occasional rhonchi, finder was present in bilateral lower zone CVS: S1-S2 regular, pansystolic murmur at apex radiating to axilla , no tachycardia, no gallops, no rubs Abdomen: Soft, nontender, no organomegaly, bowel sounds present Neuro: No focal deficits, no facial deformity, AO x3, power 5/5 in all limbs Data 09/12/23 02:30 09/12/23 02:30 A&P Assessment and plan (1) Acute non-ST elevation myocardial infarction (NSTEMI): Recurrent admissions. Post CABG. Most recent cardiac angiogram in June 2023. Was decided to be managed medically at that time. Denies any active chest pain,. Troponins elevated. Cycle troponin. Echocardiogram. Continue with home dose of aspirin, Plavix, statin, beta-lexy for now. Cardiology consulted from the ER. Patient would like to have conservative treatment. She does not want to undergo cardiac angiogram because she is aware that she is at a high risk of needing dialysis and she does not want to risk that. Toprol could be elevated also in setting of possible pulmonary embolism. Follow-up echocardiogram. VQ scan once available. Continue with heparin drip for now. (2) Atherosclerotic heart disease of [place] coronary artery with other forms of angina pectoris: Continue with home dose of Imdur 60 mg twice daily. Will uptitrate as her blood pressures. Can plan to add Ranexa. Will await cardiology recommendations. (3) Congestive heart failure: Currently euvolemic. Continue with Bumex 1 mg twice daily. Check to confirm starting, daily weights. [place]son catheter. Qualifiers: Heart failure chronicity: chronic Heart failure type: combined systolic and diastolic Qualified Code(s): I50.42 - Chronic combined systolic (congestive) and diastolic (congestive) heart failure (4) Ischemic cardiomyopathy: (5) HTN (hypertension): Goal blood pressure less than 140/90 mmHg. For now continue with home dose of amlodipine, hydralazine, Imdur, Coreg. Uptitrate as per goal blood pressures. Qualifiers: Hypertension type: primary hypertension Qualified Code(s): I10 - Essential (primary) hypertension (6) Pulmonary embolism: Past medical history. Chronically on Eliquis. Cannot rule out symptoms in setting of acute pulmonary embolism. Patient chronically on Eliquis 2.5 mg twice daily but should be on 5 mg twice daily given advanced age. Can plan to check nuclear study to rule out PE. Till that time continue with heparin drip which will also suffice for treatment for pulmonary embolism. Qualifiers: Pulmonary embolism type: multiple subsegmental (without acute cor pulmonale) Qualified Code(s): I26.94 - Multiple subsegmental pulmonary emboli without acute cor pulmonale (7) Chronic kidney disease: Creatinine stable at 1.7 for now. Monitor electrolytes and BMP daily. Qualifiers: Chronic kidney disease stage: stage 3 (moderate) Chronic kidney disease stage 3 subtype: stage 3a (GFR 45-59) Qualified Code(s): N18.31 - Chronic kidney disease, stage 3a (8) Diabetes mellitus: Sliding scale. Carb consistent diet. Plan Plan for the day: No further chest pain. Add troponins to morning lab which shows elevation due to 2252 today morning. Echocardiogram results appreciated which shows actually improvement in the EF up to 45-50 % with global LV hypokinesia with mild MS. Continue with heparin drip. Continue with aspirin, Plavix, statin, beta- lexy. Coreg switched over to metoprolol yesterday for better heart rate control. Heart rate well-controlled today. Plan to uptitrate Imdur. Goal blood pressure less than 140/90 mmHg. Hold off on amlodipine to make room to uptitrate Imdur. For now continue with Bumex 1 mg oral twice daily. Fluid restriction up to 1500 cc. For now continue with hydralazine 75 mg twice daily, increase Imdur to 90 mg twice daily, metoprolol 50 mg twice daily. Already on steroid taper. Continue to finish out the steroid taper. Supplementation keeping saturation over 90%. Symptoms on admission concerning for non-ST elevation NE though PE cannot be ruled out. Continue with heparin drip for now. No plan for cardiac angiogram for now as last angiogram in June 2023 after which she was advised medical management. Patient does not want to risk dialysis. Plan for VQ scan in AM for possibility of PE. CODE STATUS: Discussed today with the patient. Patient states she is tired. Does not want to to have aggressive treatment. She does not want cardiac angiogram or CTA as that would put her at higher risk of needing dialysis. CODE STATUS DNR/DNI. Carb consistent cardiac Diet Protonix for PUD Prophylaxis Heparin Drip Will Be Sufficient for DVT Prophylaxis Attestations 2 Medical Necessity Statement*: Requires further hospitalization for management of non-ST elevation NE in a patient with history of CABG, recent respiratory failure requiring intubation, extubated within the last 1 week Diagnoses Acute non-ST elevation myocardial infarction (NSTEMI) I21.4 Atherosclerotic heart disease of [place] coronary artery with other forms of angina pectoris I25.118 Chronic combined systolic and diastolic congestive heart failure I50.42 Heart failure chronicity: chronic Heart failure type: combined systolic and diastolic Ischemic cardiomyopathy I25.5 Primary hypertension I10 Hypertension type: primary hypertension Multiple subsegmental pulmonary emboli without acute cor pulmonale I26.94 Pulmonary embolism type: multiple subsegmental (without acute cor pulmonale) Stage 3a chronic kidney disease N18.31 Chronic kidney disease stage: stage 3 (moderate) Chronic kidney disease stage 3 subtype: stage 3a (GFR 45-59) Diabetes mellitus E11.9
[2023-09-12 09:45] LABS: Troponin T (5th) Once 2252 ng/L (0-10)
--- NOTE | 2023-09-12 10:59 | P.PN_ITS ---
Subjective 2 Subjective: Patient feeling better. No chest pain. Breathing has improved Vitals/I&O/Wt Last Vital Signs Temp 97.4 F L 09/12/23 07:15 Pulse 77 09/12/23 07:21 Resp 14 09/12/23 07:21 BP 127/70 09/12/23 07:15 Pulse Ox 99 09/12/23 07:21 O2 Del Method BiPAP 09/12/23 07:21 O2 Flow Rate 2 09/11/23 14:19 FiO2 30 09/12/23 07:21 09/11/23 09/12/23 09/12/23 22:59 06:59 14:59 Intake Total 311.702 / 311.702 380 / 691.702 540 / 540 Output Total 1300 / 1300 Balance 311.702 / 311.702 -920 / -608.298 540 / 540 Weight last 48 hrs Weight 133 lb 4.8 oz Weight 133 lb Weight 133 lb Physical Exam 2 Narrative: GENERAL: Patient is alert, awake and oriented x3. [] NECK: No jugular vein distension. [] HEENT: No cyanosis. No icterus. No pallor. [] HEART: Regular S1 and S2. No murmur, rub or gallop. [] LUNGS: Bilateral crackles CENTRAL NERVOUS SYSTEM: Grossly nonfocal. [] EXTREMITIES: Lower extremities with 1+ edema bilaterally. Data 09/13/23 04:17 09/13/23 04:17 A&P Assessment and plan (1) Acute non-ST elevation myocardial infarction (NSTEMI): (2) Atherosclerotic heart disease of [place] coronary artery with other forms of angina pectoris: (3) Congestive heart failure: Qualifiers: Heart failure chronicity: chronic Heart failure type: combined systolic and diastolic Qualified Code(s): I50.42 - Chronic combined systolic (congestive) and diastolic (congestive) heart failure (4) Ischemic cardiomyopathy: (5) HTN (hypertension): Qualifiers: Hypertension type: primary hypertension Qualified Code(s): I10 - Essential (primary) hypertension (6) Pulmonary embolism: Qualifiers: Pulmonary embolism type: multiple subsegmental (without acute cor pulmonale) Qualified Code(s): I26.94 - Multiple subsegmental pulmonary emboli without acute cor pulmonale (7) Chronic kidney disease: Qualifiers: Chronic kidney disease stage: stage 3 (moderate) Chronic kidney disease stage 3 subtype: stage 3a (GFR 45-59) Qualified Code(s): N18.31 - Chronic kidney disease, stage 3a (8) Diabetes mellitus: Plan Patient's echo shows improved LV systolic function compared to before. Presentation is consistent with hypertensive emergency.. Will continue with medical management. Continue heparin drip for 48 hours. Continue diuresis. Monitor renal function. Close I and Os Thankyou for involving us with care of this patient. We will continue to follow. please call with questions. Attestations 2 Medical Necessity Statement*: Care expected to cross 2 midnights. Coding Level of Care Code Acute Code for [facility] Diagnoses Acute non-ST elevation myocardial infarction (NSTEMI) I21.4 Atherosclerotic heart disease of [place] coronary artery with other forms of angina pectoris I25.118 Chronic combined systolic and diastolic congestive heart failure I50.42 Heart failure chronicity: chronic Heart failure type: combined systolic and diastolic Ischemic cardiomyopathy I25.5 Primary hypertension I10 Hypertension type: primary hypertension Multiple subsegmental pulmonary emboli without acute cor pulmonale I26.94 Pulmonary embolism type: multiple subsegmental (without acute cor pulmonale) Stage 3a chronic kidney disease N18.31 Chronic kidney disease stage: stage 3 (moderate) Chronic kidney disease stage 3 subtype: stage 3a (GFR 45-59) Diabetes mellitus E11.9
[2023-09-12 11:35] LABS: Glucose Point of Care 312 mg/dL (70-110)
--- NOTE | 2023-09-12 11:54 | USCV_ITS ---
Romi Yuan Age: 72 Gender: F : 1950 Exam Date: 09/12/2023 08:04 Ordering Phys: Moe Butler MD Technologist: Jb Hull Exam Location: [facility] [place] Indication: nstemi BP: 175 / 90 HR: 75 Rhythm: Sinus Technical Quality: Adequate MEASUREMENTS (Male / Female) Normal Values 2D ECHO LVOT Diameter 2.0 cm LV Ejection Fraction MOD 2C 44.9 % LV Ejection Fraction 2C AL 48.3 % LA Diameter 4.4 cm RA Systolic Volume 4C AL 36.1 ml RA Systolic Volume 4C MOD 37.0 ml Aorta at Sinotubular Diameter 2.3 cm IVC Diameter 1.4 cm M-MODE LA Ao Ratio MM 1.5 AV Cusp Separation MM 1.1 cm DOPPLER AV Peak Velocity 169.0 cm/s LVOT Peak Velocity 57.0 cm/s AV Area Cont Eq vti 1.1 cm squared AV Area Cont Eq pk 1.1 cm squared MV Peak Velocity 435.3 cm/s MV Area PHT 6.2 cm squared Mitral E to A Ratio 1.4 PV Peak Velocity 108.0 cm/s RV Ejection Time 0.3 s FINDINGS Left Ventricle Left ventricle is normal in size. LV systolic function is mildly reduced with EF of 45 to 50%. Mild global hypokinesis. Right Ventricle Normal in size and function Right Atrium Normal in size Left Atrium Normal in size Mitral Valve Mild mitral annular calcification. Moderate mitral regurgitation. Mild mitral stenosis with mean gradient across the mitral valve of 5 mmHg. Aortic Valve Structurally normal aortic valve. No significant stenosis or regurgitation. Tricuspid Valve Insufficient TR jet to calculate RVSP. Pulmonic Valve Trace pulmonic regurgitation. Pericardium Normal Aorta Normal in size IVC Appears to be normal CONCLUSIONS LV systolic function is mildly reduced with EF of 45 to 50%. Mild mitral stenosis. Moderate mitral regurgitation. Trace pulmonic regurgitation Compared to prior echocardiogram from 06/2023, LV systolic function has improved significantly and is only mildly reduced now. Tristin Goldstein MD (Electronically Signed) Final Date: 12 September 2023 09:35 S
[2023-09-12 15:10] LABS: Partial Thromboplastin Time 94.2 SECONDS (23.9-36.7)
[2023-09-12 16:27] LABS: Glucose Point of Care 207 mg/dL (70-110)
[2023-09-12] MEDS: isosorbide mononitrate ER 60 mg Tablet 90 MG PO (18:17)
[2023-09-12 21:03] LABS: Glucose Point of Care 205 mg/dL (70-110)
[2023-09-12] MEDS: venlafaxine ER (24HR) 150 mg Capsule PO (22:00)
[2023-09-12] MEDS: aspirin 81 mg EC Tablet PO (22:00)
[2023-09-12] MEDS: atorvastatin 40 mg Tablet PO (22:00)
[2023-09-12] MEDS: venlafaxine ER (24HR) 75 mg Capsule PO (22:00)
[2023-09-12] MEDS: heparin drip 25,000 UNIT/500 ML PREMIX 14 UNIT IV (22:05)
[2023-09-13] VITALS (16 sets, daily range): BP systolic 130–160; BP diastolic 54–74; PULSE 51–75; RESP 12–22; TEMP 36.4–36.8; O2SAT 95–99
[2023-09-13] MEDS: levalbuterol 0.63 mg/3 mL Neb 0.630000000000000004 MG INHALATION ×4 (01:40→20:57)
[2023-09-13] MEDS: ipratropium 0.5 mg/2.5 mL Neb INHALATION ×4 (01:41→20:57)
[2023-09-13 05:42] LABS: Basophils % 0.1 %; Eosinophils % 0.1 %; Hematocrit 28.9 % (36-47); Lymphocytes # 1.6 10^3/uL (0.8-4.8); Lymphocytes % 15.3 %; Mean Corpuscular HGB Conc 30.8 g/dL (30-55); Mean Corpuscular Hemoglobin 26.1 pg (27-33); Mean Corpuscular Volume 84.8 fl (85-98); Monocytes # 0.7 10^3/uL (0.2-0.9); Monocytes % 6.2 %; Neutrophils # 8.34 10^3/uL (1.8-7.7); Neutrophils % 77.6 %; Nucleated Red Blood Cells % 0 %; Platelet Count 279 10^3/cmm (157-399); Red Blood Count 3.41 10^6/uL (3.85-5.65); Red Cell Distribution Width 17.7 % (12.1-15.1); White Blood Count 10.74 10^3/uL (3.29-11.43)
[2023-09-13 05:47] LABS: Partial Thromboplastin Time 78.3 SECONDS (23.9-36.7)
[2023-09-13 06:05] LABS: Alanine Aminotransferase 16 U/L (0-33); Alkaline Phosphatase 96 U/L (35-105); Anion Gap 14.4 (5-19); Aspartate Amino Transferase 16 U/L (0-32); Blood Urea Nitrogen 67 mg/dL (8-23); Calcium 9.3 mg/dL (8.5-10.5); Carbon Dioxide 24 mmol/L (22-29); Chloride 111 mmol/L (98-107); Creatinine Clr Calc Pharmacy 20.4983; Globulin 2.4 g/dL (1.3-4.6); Glucose 133 mg/dL (65-115); Osmolality Calculated 321 mOsm/kg (285-295); Potassium 4.4 mmol/L (3.5-5.1); Sodium 145 mmol/L (136-145); Total Bilirubin 0.3 mg/dL (0.15-1.2); Total Protein 5.4 g/dL (6.6-8.7)
[2023-09-13 06:36] LABS: Glucose Point of Care 190 mg/dL (70-110)
--- NOTE | 2023-09-13 07:56 | PM.PN ---
Subjective Subjective: Patient is feeling better. Has completed 48 hours of anticoagulation. Vitals/I&O/Wt Last Vital Signs Temp 97.5 F L 09/13/23 04:00 Pulse 75 09/13/23 04:00 Resp 14 09/13/23 04:00 BP 133/57 09/13/23 04:00 Pulse Ox 97 09/13/23 04:00 O2 Del Method BiPAP 09/13/23 04:00 O2 Flow Rate 28 09/12/23 20:06 FiO2 28 09/13/23 04:00 09/12/23 09/13/23 09/13/23 22:59 06:59 14:59 Intake Total 483.131 / 1088.298 108.733 / 1197.031 Output Total 300 / 900 250 / 1150 Balance 183.131 / 188.298 -141.267 / 47.031 Weight last 48 hrs Weight 133 lb Weight 131 lb Weight 133 lb 4.8 oz Weight 133 lb Weight 133 lb Physical Exam Narrative: GENERAL: Patient is alert, awake and oriented x3. [] NECK: No jugular vein distension. [] HEENT: No cyanosis. No icterus. No pallor. [] HEART: Regular S1 and S2. No murmur, rub or gallop. [] LUNGS: Bilateral crackles CENTRAL NERVOUS SYSTEM: Grossly nonfocal. [] EXTREMITIES: Lower extremities with 1+ edema bilaterally. Urinary Catheter Management: Munson: Cath Placed During This Visit: no Reason for Continuing Indwelling Catheter: Other Data 09/13/23 04:17 09/13/23 04:17 A&P Assessment and plan (1) Acute non-ST elevation myocardial infarction (NSTEMI): (2) Atherosclerotic heart disease of [place] coronary artery with other forms of angina pectoris: (3) Congestive heart failure: Qualifiers: Heart failure chronicity: chronic Heart failure type: combined systolic and diastolic Qualified Code(s): I50.42 - Chronic combined systolic (congestive) and diastolic (congestive) heart failure (4) Ischemic cardiomyopathy: (5) HTN (hypertension): Qualifiers: Hypertension type: primary hypertension Qualified Code(s): I10 - Essential (primary) hypertension (6) Pulmonary embolism: Qualifiers: Pulmonary embolism type: multiple subsegmental (without acute cor pulmonale) Qualified Code(s): I26.94 - Multiple subsegmental pulmonary emboli without acute cor pulmonale (7) Chronic kidney disease: Qualifiers: Chronic kidney disease stage: stage 3 (moderate) Chronic kidney disease stage 3 subtype: stage 3a (GFR 45-59) Qualified Code(s): N18.31 - Chronic kidney disease, stage 3a (8) Diabetes mellitus: Plan Patient doing well. Creatinine went. Down titrate diuretic therapy. Has completed 48 hours of diuretic therapy. Monitor renal function Clementineyou for involving us with care of this patient. We will continue to follow. please call with questions. Attestations Medical Necessity Statement*: Care expected to cross 2 midnights. Coding Level of Care [facility] Diagn[facility] Acute non-ST elevation myocardial infarction (NSTEMI) I21.4 Atherosclerotic heart disease of [place] coronary artery with other forms of angina pectoris I25.118 Chronic combined systolic and diastolic congestive heart failure I50.42 Heart failure chronicity: chronic Heart failure type: combined systolic and diastolic Ischemic cardiomyopathy I25.5 Primary hypertension I10 Hypertension type: primary hypertension Multiple subsegmental pulmonary emboli without acute cor pulmonale I26.94 Pulmonary embolism type: multiple subsegmental (without acute cor pulmonale) Stage 3a chronic kidney disease N18.31 Chronic kidney disease stage: stage 3 (moderate) Chronic kidney disease stage 3 subtype: stage 3a (GFR 45-59) Diabetes mellitus E11.9
[2023-09-13] MEDS: predniSONE 10 mg Tablet 40 MG PO (09:00)
[2023-09-13] MEDS: insulin lispro 100 unit/1 mL SUBCUT ×3 (10:12→21:01)
[2023-09-13] MEDS: isosorbide mononitrate ER 60 mg Tablet 90 MG PO ×2 (10:13→17:16)
[2023-09-13] MEDS: metoprolol tartrate 50 mg Tablet PO ×2 (10:14→20:58)
[2023-09-13] MEDS: hyDRALAzine 50 mg Tablet 75 MG PO ×3 (10:14→20:59)
[2023-09-13] MEDS: bumetanide 1 mg Tablet PO ×2 (10:15→17:16)
[2023-09-13] MEDS: clopidogrel 75 mg Tablet PO (10:15)
[2023-09-13] MEDS: methIMAzole 5 MG Tablet PO (10:16)
[2023-09-13] MEDS: potassium chloride ER 10 mEq Tablet PO ×2 (10:19→17:16)
[2023-09-13] MEDS: pantoprazole DR 40 mg Tablet PO (10:19)
--- NOTE | 2023-09-13 12:02 | PC.NURSE ---
Patient was sitting up on the side of bed and got a skin tear on her left wrist area. Area is covered.
[2023-09-13 12:16] LABS: Glucose Point of Care 210 mg/dL (70-110)
[2023-09-13 12:31] LABS: Partial Thromboplastin Time 51.3 SECONDS (23.9-36.7)
--- NOTE | 2023-09-13 13:19 | PM.PN ---
Subjective Subjective: Ms. Roger seen this morning, was comfortably sitting in bed with nasal cannula in place. Admits feeling better, slept well overnight with BiPAP. Denies any chest pain shortness of breath dizziness or weakness. Medications: Reviewed: Yes Vitals/I&O/Wt Last Vital Signs Temp 98.0 F 09/13/23 12:00 Pulse 59 L 09/13/23 12:00 Resp 22 H 09/13/23 12:00 BP 145/72 09/13/23 12:00 Pulse Ox 95 09/13/23 12:00 O2 Del Method Nasal Cannula 09/13/23 09:18 O2 Flow Rate 2 09/13/23 09:18 FiO2 28 09/13/23 04:00 09/12/23 09/13/23 09/13/23 22:59 06:59 14:59 Intake Total 483.131 / 1088.298 108.733 / 1197.031 328 / 328 Output Total 300 / 900 250 / 1150 Balance 183.131 / 188.298 -141.267 / 47.031 328 / 328 Weight last 48 hrs Weight 60.328 kg Weight 59.421 kg Weight 60.464 kg Weight 60.328 kg Physical Exam Narrative: She is alert awake oriented x 3 pleasant Chest occasional rhonchi present bilaterally Cardiovascular normal heart sounds Abdomen soft nontender nondistended normal bowel sounds Extremities no edema seen Urinary Catheter Management: Munson: Cath Placed During This Visit: no Reason for Continuing Indwelling Catheter: Other Data 09/13/23 04:17 09/13/23 04:17 Echo: Radiologist's impression: LV systolic function is mildly reduced with EF of 45 to 50%. Mild mitral stenosis. Moderate mitral regurgitation. Trace pulmonic regurgitation Compared to prior echocardiogram from 06/2023, LV systolic function has improved significantly and is only mildly reduced now. A&P Assessment and plan (1) DOLORES (acute kidney injury): (2) Anemia: (3) Acute exacerbation of CHF (congestive heart failure): (4) Acute respiratory failure with hypoxia: (5) Ischemic cardiomyopathy: (6) NSTEMI (non-ST elevated myocardial infarction): (7) Chronic kidney disease: Qualifiers: Chronic kidney disease stage: stage 3 (moderate) Chronic kidney disease stage 3 subtype: stage 3a (GFR 45-59) Qualified Code(s): N18.31 - Chronic kidney disease, stage 3a (8) COPD (chronic obstructive pulmonary disease): Qualifiers: COPD type: unspecified COPD Qualified Code(s): J44.9 - Chronic obstructive pulmonary disease, unspecified Plan (1) Acute non-ST elevation myocardial infarction (NSTEMI): Recurrent admissions. Post CABG. Most recent cardiac angiogram in June 2023. Was decided to be managed medically at that time. Continue with home dose of aspirin, Plavix, statin, beta-lexy for now. Patient would like to have conservative treatment. She does not want to undergo cardiac angiogram because she is aware that she is at a high risk of needing dialysis and she does not want to risk that. Less likely to have a PE, will hold off on VQ scan and discontinue IV heparin drip. Patient was on p.o. Eliquis 2.5 mg twice a day at home for history of PE, will continue with the same dose (2) ischemic heart disease/ischemic cardiomyopathy Continue with home dose of Imdur 60 mg twice daily. (3) Congestive heart failure: Currently euvolemic. Continue with Bumex 1 mg twice daily. Check to confirm starting, daily weights. Munson catheter. (5) HTN (hypertension): Goal blood pressure less than 140/90 mmHg. For now continue with home dose of amlodipine, hydralazine, Imdur, Coreg. (7) Chronic kidney disease: Worsening creatinine of 2.0 likely secondary to acute on chronic kidney disease. Will monitor for now and if trending up, will reduce p.o. Bumex to 1 mg daily (8) Diabetes mellitus: Sliding scale. (9) anemia likely secondary to anemia of chronic disease Hemoccult negative will continue to monitor H&H for now Carb consistent diet. She is on p.o. Eliquis, will continue same for DVT prophylaxis P.o. Protonix for GI prophylaxis She is DNR/DNI for now. Attestations Medical Necessity Statement*: Patient is doing well and improving, plan to discharge to subacute correction in a.m. Time Spent in Patient Care: 30 minutes Coding Level of Care Code Acute Code for [facility] Fwd Moderate MDM includes number and complexity of problems actively addressed during encounter as documented Diagnoses DOLORES (acute kidney injury) N17.9 Anemia D64.9 Acute exacerbation of CHF (congestive heart failure) I50.9 Acute respiratory failure with hypoxia J96.01 Ischemic cardiomyopathy I25.5 NSTEMI (non-ST elevated myocardial infarction) I21.4 Stage 3a chronic kidney disease N18.31 Chronic kidney disease stage: stage 3 (moderate) Chronic kidney disease stage 3 subtype: stage 3a (GFR 45-59) Chronic obstructive pulmonary disease, unspecified COPD type J44.9 COPD type: unspecified COPD Time Spent (min) 30
[2023-09-13 17:00] LABS: Glucose Point of Care 98 mg/dL (70-110)
--- NOTE | 2023-09-13 20:20 | PC.NURSE ---
Patient is due to receive eliquis tonight but no orders on when to stop the heparin gtt. mentioned in her note to discontinue the gtt and restart PO eliquis but did not give time of when to stop gtt. . Spoke with regarding the issue and gave orders to stop the heparin gtt at 23:00.
[2023-09-13 20:44] LABS: Glucose Point of Care 188 mg/dL (70-110)
[2023-09-13] MEDS: aspirin 81 mg EC Tablet PO (20:57)
[2023-09-13] MEDS: venlafaxine ER (24HR) 150 mg Capsule PO (20:58)
[2023-09-13] MEDS: venlafaxine ER (24HR) 75 mg Capsule PO (20:58)
[2023-09-13] MEDS: apixaban 5 mg Tablet 2.5 MG PO (20:58)
[2023-09-13] MEDS: atorvastatin 40 mg Tablet PO (20:59)
--- NOTE | 2023-09-13 21:32 | PC.NURSE ---
Spoke with regarding patient complaint of congestion but not able to cough up phlem. States she had previously had mucomyst in her breathing treatments and that helped. ordered mucinex PO PRN for congestion.
[2023-09-13 21:50] LABS: Partial Thromboplastin Time 58.9 SECONDS (23.9-36.7)
[2023-09-13] MEDS: guaiFENesin 600 mg Tablet 1200 MG PO (21:50)
[2023-09-13] MEDS: ALPRAZolam 0.5 mg Tablet 0.25 MG PO (22:45)
[2023-09-14] VITALS (18 sets, daily range): BP systolic 139–163; BP diastolic 55–81; PULSE 49–95; RESP 14–22; TEMP 36.4–36.7; O2SAT 94–98; BMI 28.2
[2023-09-14] MEDS: levalbuterol 0.63 mg/3 mL Neb 0.630000000000000004 MG INHALATION ×4 (01:52→20:15)
[2023-09-14] MEDS: ipratropium 0.5 mg/2.5 mL Neb INHALATION ×4 (01:52→20:15)
[2023-09-14 06:20] LABS: Glucose Point of Care 136 mg/dL (70-110)
--- NOTE | 2023-09-14 08:46 | P.PN_ITS ---
Subjective 2 Subjective: Patient feeling better. Breathing is improved. Vitals/I&O/Wt Last Vital Signs Temp 98.0 F 09/14/23 04:00 Pulse 67 09/14/23 08:29 Resp 17 09/14/23 08:20 BP 163/81 09/14/23 07:30 Pulse Ox 98 09/14/23 08:20 O2 Del Method Nasal Cannula 09/14/23 08:20 O2 Flow Rate 2 09/14/23 08:20 FiO2 28 09/14/23 04:30 09/13/23 09/14/23 09/14/23 22:59 06:59 14:59 Intake Total 324.85 / 892.85 333.6 / 1226.45 60 / 60 Output Total 550 / 550 700 / 1250 Balance -225.15 / 342.85 -366.4 / -23.55 60 / 60 Weight last 48 hrs Weight 144 lb 6.4 oz Weight 134 lb 6.4 oz Weight 133 lb Weight 131 lb Physical Exam 2 Narrative: GENERAL: Patient is alert, awake and oriented x3. [] NECK: No jugular vein distension. [] HEENT: No cyanosis. No icterus. No pallor. [] HEART: Regular S1 and S2. No murmur, rub or gallop. [] LUNGS: Bilateral crackles CENTRAL NERVOUS SYSTEM: Grossly nonfocal. [] EXTREMITIES: Lower extremities with 1+ edema bilaterally. Urinary Catheter Management: Munson: Cath Placed During This Visit: no Reason for Continuing Indwelling Catheter: Acute Urinary Retention or Obstruction Data 09/15/23 03:38 09/13/23 04:17 A&P Assessment and plan (1) Acute non-ST elevation myocardial infarction (NSTEMI): (2) Atherosclerotic heart disease of [place] coronary artery with other forms of angina pectoris: (3) Congestive heart failure: Qualifiers: Heart failure chronicity: chronic Heart failure type: combined systolic and diastolic Qualified Code(s): I50.42 - Chronic combined systolic (congestive) and diastolic (congestive) heart failure (4) Ischemic cardiomyopathy: (5) HTN (hypertension): Qualifiers: Hypertension type: primary hypertension Qualified Code(s): I10 - Essential (primary) hypertension (6) Pulmonary embolism: Qualifiers: Pulmonary embolism type: multiple subsegmental (without acute cor pulmonale) Qualified Code(s): I26.94 - Multiple subsegmental pulmonary emboli without acute cor pulmonale (7) Chronic kidney disease: Qualifiers: Chronic kidney disease stage: stage 3 (moderate) Chronic kidney disease stage 3 subtype: stage 3a (GFR 45-59) Qualified Code(s): N18.31 - Chronic kidney disease, stage 3a (8) Diabetes mellitus: Plan Patient is overall improved. Check labs to assess renal function we will uptitrate hydralazine to 100mg TID Low sodium diet Jarocho for involving us with care of this patient. We will continue to follow. please call with questions. Attestations 2 Medical Necessity Statement*: Care expected to cross 2 midnights. Coding Level of Care Code Acute Code for [facility] Diagnoses Acute non-ST elevation myocardial infarction (NSTEMI) I21.4 Atherosclerotic heart disease of [place] coronary artery with other forms of angina pectoris I25.118 Chronic combined systolic and diastolic congestive heart failure I50.42 Heart failure chronicity: chronic Heart failure type: combined systolic and diastolic Ischemic cardiomyopathy I25.5 Primary hypertension I10 Hypertension type: primary hypertension Multiple subsegmental pulmonary emboli without acute cor pulmonale I26.94 Pulmonary embolism type: multiple subsegmental (without acute cor pulmonale) Stage 3a chronic kidney disease N18.31 Chronic kidney disease stage: stage 3 (moderate) Chronic kidney disease stage 3 subtype: stage 3a (GFR 45-59) Diabetes mellitus E11.9
[2023-09-14] MEDS: apixaban 5 mg Tablet 2.5 MG PO ×2 (09:05→21:20)
[2023-09-14] MEDS: methIMAzole 5 MG Tablet PO (09:05)
[2023-09-14] MEDS: predniSONE 10 mg Tablet 40 MG PO (09:05)
[2023-09-14] MEDS: hyDRALAzine 50 mg Tablet 75 MG PO ×3 (09:05→21:20)
[2023-09-14] MEDS: bumetanide 1 mg Tablet PO ×2 (09:05→17:03)
[2023-09-14] MEDS: potassium chloride ER 10 mEq Tablet PO ×2 (09:06→17:03)
[2023-09-14] MEDS: pantoprazole DR 40 mg Tablet PO (09:06)
[2023-09-14] MEDS: clopidogrel 75 mg Tablet PO (09:06)
[2023-09-14] MEDS: isosorbide mononitrate ER 60 mg Tablet 90 MG PO ×2 (09:06→17:03)
[2023-09-14] MEDS: metoprolol tartrate 50 mg Tablet PO ×2 (09:06→21:20)
[2023-09-14 11:38] LABS: Glucose Point of Care 292 mg/dL (70-110)
[2023-09-14] MEDS: insulin lispro 100 unit/1 mL SUBCUT ×3 (11:46→21:25)
[2023-09-14 12:31] LABS: ABG PCO2 37.6 mmHg (35-45); Alveolar-Arterial Oxygen Gradi 3.7 mmHg (5-10); Arterial Blood Gas Hematocrit 29.3 % (37-47); Base Excess ABG -1.4 mmol/L (-2.0-2.0); Blood Gas Operator Identificat GD; Blood Gas Sample Site Radial, right; Blood Gas Sample Type Arterial; Carboxyhemoglobin 1.3 %THgb (0.4-20.1); HCO3 ABG 23.2 mmol/L (22-26); HGB O2 Sat 94.2 % (95-100); Ionized Calcium Level - ABG 1.3 mmol/L (1.1-1.4); Methemoglobin 0.6 % (0.4-1.5); Oxygen Device NC; Oxygen Saturation ABG 96.1; PO2 ABG 74.2 mmHg (80.0-100.0); Potassium Level - ABG 4.5 mmol/L (3.5-5.0); Total Hemoglobin 9.6 g/dL (12-16)
--- NOTE | 2023-09-14 14:22 | P.PN_ITS ---
Subjective 2 Subjective: No acute overnight events noted. She admits sleeping well on BiPAP at night. She wishes to go home on home oxygen therapy and BiPAP, refusing for halfway placement Medications: Reviewed: Yes Vitals/I&O/Wt Last Vital Signs Temp 97.9 F 09/14/23 11:12 Pulse 55 L 09/14/23 14:05 Resp 18 09/14/23 14:05 BP 146/59 09/14/23 11:12 Pulse Ox 95 09/14/23 14:05 O2 Del Method Nasal Cannula 09/14/23 14:05 O2 Flow Rate 1 09/14/23 14:05 FiO2 28 09/14/23 04:30 09/13/23 09/14/23 09/14/23 22:59 06:59 14:59 Intake Total 324.85 / 892.85 333.6 / 1226.45 420 / 420 Output Total 550 / 550 700 / 1250 Balance -225.15 / 342.85 -366.4 / -23.55 420 / 420 Weight last 48 hrs Weight 65.499 kg Weight 65.499 kg Weight 60.963 kg Weight 60.328 kg Physical Exam 2 Narrative: She is alert awake oriented x 3 pleasant Chest occasional rhonchi present bilaterally Cardiovascular normal heart sounds Abdomen soft nontender nondistended normal bowel sounds Extremities no edema seen Urinary Catheter Management: Munson: Cath Placed During This Visit: no Reason for Continuing Indwelling Catheter: Acute Urinary Retention or Obstruction Data 09/13/23 04:17 09/13/23 04:17 A&P Assessment and plan (1) DOLORES (acute kidney injury): (2) Anemia: (3) Acute exacerbation of CHF (congestive heart failure): (4) Acute respiratory failure with hypoxia: (5) Ischemic cardiomyopathy: (6) NSTEMI (non-ST elevated myocardial infarction): (7) Chronic kidney disease: Qualifiers: Chronic kidney disease stage: stage 3 (moderate) Chronic kidney disease stage 3 subtype: stage 3a (GFR 45-59) Qualified Code(s): N18.31 - Chronic kidney disease, stage 3a (8) COPD (chronic obstructive pulmonary disease): Qualifiers: COPD type: unspecified COPD Qualified Code(s): J44.9 - Chronic obstructive pulmonary disease, unspecified Plan Plan to discharge home with home oxygen therapy and BiPAP. Will need ABG and overnight pulse ox monitoring for documentation of oxygen saturation. Follow-up case management for discharge planning Carb consistent diet. She is on p.o. Eliquis, will continue same for DVT prophylaxis P.o. Protonix for GI prophylaxis She is DNR/DNI for now. Attestations 2 Medical Necessity Statement*: She is hemodynamically stable but needs home oxygen therapy and BiPAP for hypoxic respiratory failure. Will need ABG overnight pulse ox monitoring for documentation of oxygen saturation. Will follow-up case management for discharge planning in a.m. Time Spent in Patient Care: 20 Coding Level of Care Code Acute Code for Chg Fwd Diagnoses DOLORES (acute kidney injury) N17.9 Anemia D64.9 Acute exacerbation of CHF (congestive heart failure) I50.9 Acute respiratory failure with hypoxia J96.01 Ischemic cardiomyopathy I25.5 NSTEMI (non-ST elevated myocardial infarction) I21.4 Stage 3a chronic kidney disease N18.31 Chronic kidney disease stage: stage 3 (moderate) Chronic kidney disease stage 3 subtype: stage 3a (GFR 45-59) Chronic obstructive pulmonary disease, unspecified COPD type J44.9 COPD type: unspecified COPD Time Spent (min) 20
[2023-09-14 17:40] LABS: Glucose Point of Care 297 mg/dL (70-110)
[2023-09-14 20:49] LABS: Glucose Point of Care 399 mg/dL (70-110)
[2023-09-14 21:02] LABS: Glucose Point of Care 387 mg/dL (70-110)
[2023-09-14] MEDS: venlafaxine ER (24HR) 75 mg Capsule PO (21:19)
[2023-09-14] MEDS: guaiFENesin 600 mg Tablet 1200 MG PO (21:19)
[2023-09-14] MEDS: atorvastatin 40 mg Tablet PO (21:20)
[2023-09-14] MEDS: aspirin 81 mg EC Tablet PO (21:20)
[2023-09-14] MEDS: venlafaxine ER (24HR) 150 mg Capsule PO (21:22)
[2023-09-15] VITALS (145 sets, daily range): BP systolic 123–167; BP diastolic 57–81; PULSE 53–76; RESP 11–26; TEMP 36.5–36.8; O2SAT 92–99
[2023-09-15] MEDS: levalbuterol 0.63 mg/3 mL Neb 0.630000000000000004 MG INHALATION ×4 (03:11→20:37)
[2023-09-15] MEDS: ipratropium 0.5 mg/2.5 mL Neb INHALATION ×4 (03:11→20:37)
[2023-09-15 03:50] LABS: Platelet Count 262 10^3/cmm (157-399)
[2023-09-15 06:28] LABS: Glucose Point of Care 125 mg/dL (70-110)
--- NOTE | 2023-09-15 06:55 | PM.PN ---
Subjective Subjective: Patient feeling better. Denies chest pain. Vitals/I&O/Wt Last Vital Signs Temp 98.2 F 09/15/23 04:00 Pulse 62 09/15/23 05:29 Resp 17 09/15/23 04:00 BP 167/71 09/15/23 04:00 Pulse Ox 96 09/15/23 04:00 O2 Del Method Nasal Cannula 09/15/23 04:00 O2 Flow Rate 2 09/15/23 04:00 FiO2 28 09/14/23 04:30 09/14/23 09/14/23 09/15/23 14:59 22:59 06:59 Intake Total 420 / 420 180 / 600 Output Total 600 / 600 925 / 1525 Balance 420 / 420 -420 / 0 -925 / -925 Weight last 48 hrs Weight 130 lb Weight 144 lb 6.4 oz Weight 144 lb 6.4 oz Weight 134 lb 6.4 oz Physical Exam Narrative: GENERAL: Patient is alert, awake and oriented x3. [] NECK: No jugular vein distension. [] HEENT: No cyanosis. No icterus. No pallor. [] HEART: Regular S1 and S2. No murmur, rub or gallop. [] LUNGS: Bilateral crackles CENTRAL NERVOUS SYSTEM: Grossly nonfocal. [] EXTREMITIES: Lower extremities with 1+ edema bilaterally. Urinary Catheter Management: Munson: Cath Placed During This Visit: no Reason for Continuing Indwelling Catheter: Acute Urinary Retention or Obstruction Data 09/15/23 10:39 09/15/23 10:39 A&P Assessment and plan (1) Acute non-ST elevation myocardial infarction (NSTEMI): (2) Atherosclerotic heart disease of [place] coronary artery with other forms of angina pectoris: (3) Congestive heart failure: Qualifiers: Heart failure chronicity: chronic Heart failure type: combined systolic and diastolic Qualified Code(s): I50.42 - Chronic combined systolic (congestive) and diastolic (congestive) heart failure (4) Ischemic cardiomyopathy: (5) HTN (hypertension): Qualifiers: Hypertension type: primary hypertension Qualified Code(s): I10 - Essential (primary) hypertension (6) Pulmonary embolism: Qualifiers: Pulmonary embolism type: multiple subsegmental (without acute cor pulmonale) Qualified Code(s): I26.94 - Multiple subsegmental pulmonary emboli without acute cor pulmonale (7) Chronic kidney disease: Qualifiers: Chronic kidney disease stage: stage 3 (moderate) Chronic kidney disease stage 3 subtype: stage 3a (GFR 45-59) Qualified Code(s): N18.31 - Chronic kidney disease, stage 3a (8) Diabetes mellitus: Plan Blood pressure still elevated. Hydralazine uptitrated to 100 mg 3 times daily. Monitor renal function. Thankyou for involving us with care of this patient.please call with questions. Attestations Medical Necessity Statement*: Care expected to cross 2 midnights. Coding Level of Care Code Acute Code for [facility] Fwd Diagnoses Acute non-ST elevation myocardial infarction (NSTEMI) I21.4 Atherosclerotic heart disease of [place] coronary artery with other forms of angina pectoris I25.118 Chronic combined systolic and diastolic congestive heart failure I50.42 Heart failure chronicity: chronic Heart failure type: combined systolic and diastolic Ischemic cardiomyopathy I25.5 Primary hypertension I10 Hypertension type: primary hypertension Multiple subsegmental pulmonary emboli without acute cor pulmonale I26.94 Pulmonary embolism type: multiple subsegmental (without acute cor pulmonale) Stage 3a chronic kidney disease N18.31 Chronic kidney disease stage: stage 3 (moderate) Chronic kidney disease stage 3 subtype: stage 3a (GFR 45-59) Diabetes mellitus E11.9
[2023-09-15] MEDS: apixaban 5 mg Tablet 2.5 MG PO ×2 (09:09→21:29)
[2023-09-15] MEDS: isosorbide mononitrate ER 60 mg Tablet 90 MG PO ×2 (09:09→18:18)
[2023-09-15] MEDS: clopidogrel 75 mg Tablet PO (09:09)
[2023-09-15] MEDS: hyDRALAzine 50 mg Tablet 100 MG PO ×3 (09:11→21:30)
[2023-09-15] MEDS: predniSONE 10 mg Tablet 40 MG PO (09:11)
[2023-09-15] MEDS: potassium chloride ER 10 mEq Tablet PO ×2 (09:11→18:18)
[2023-09-15] MEDS: pantoprazole DR 40 mg Tablet PO (09:12)
[2023-09-15] MEDS: methIMAzole 5 MG Tablet PO (09:12)
[2023-09-15] MEDS: bumetanide 1 mg Tablet PO ×2 (09:12→18:18)
[2023-09-15] MEDS: metoprolol tartrate 50 mg Tablet PO ×2 (09:15→21:29)
[2023-09-15 10:48] LABS: Basophils % 0.1 %; Eosinophils # 0.1 10^3/uL (0.0-0.8); Eosinophils % 0.5 %; Hematocrit 28.4 % (36-47); Lymphocytes # 1.3 10^3/uL (0.8-4.8); Lymphocytes % 10.7 %; Mean Corpuscular Hemoglobin 26.3 pg (27-33); Mean Platelet Volume 10.8 fL (7.4-10.4); Monocytes # 0.7 10^3/uL (0.2-0.9); Monocytes % 5.4 %; Neutrophils # 9.99 10^3/uL (1.8-7.7); Neutrophils % 82.7 %; Nucleated Red Blood Cells % 0 %; Platelet Count 245 10^3/cmm (157-399); Red Blood Count 3.34 10^6/uL (3.85-5.65); White Blood Count 12.07 10^3/uL (3.29-11.43)
[2023-09-15 11:07] LABS: Anion Gap 13.3 (5-19); Blood Urea Nitrogen 77 mg/dL (8-23); Calcium 9.2 mg/dL (8.5-10.5); Carbon Dioxide 23 mmol/L (22-29); Chloride 105 mmol/L (98-107); Creatinine Clr Calc Pharmacy 19.4528; Glucose 216 mg/dL (65-115); Osmolality Calculated 314 mOsm/kg (285-295); Potassium 4.3 mmol/L (3.5-5.1); Sodium 137 mmol/L (136-145)
[2023-09-15 11:46] LABS: Glucose Point of Care 243 mg/dL (70-110)
[2023-09-15] MEDS: insulin lispro 100 unit/1 mL SUBCUT ×3 (12:05→21:47)
[2023-09-15 18:01] LABS: Glucose Point of Care 321 mg/dL (70-110)
--- NOTE | 2023-09-15 18:39 | P.PN_ITS ---
Subjective 2 Subjective: No acute overnight events noted, she is hemodynamically stable Medications: Reviewed: Yes Vitals/I&O/Wt Last Vital Signs Temp 98.2 F 09/15/23 04:00 Pulse 57 L 09/15/23 15:50 Resp 12 09/15/23 15:50 BP 142/81 09/15/23 15:50 Pulse Ox 96 09/15/23 15:50 O2 Del Method Nasal Cannula 09/15/23 13:46 O2 Flow Rate 1 09/15/23 13:46 FiO2 28 09/14/23 04:30 09/15/23 09/15/23 09/15/23 06:59 14:59 22:59 Intake Total 360 / 360 Output Total 925 / 1525 Balance -925 / -925 360 / 360 Weight last 48 hrs Weight 58.967 kg Weight 65.499 kg Weight 65.499 kg Physical Exam 2 Narrative: She is alert awake oriented x 3 pleasant Chest occasional rhonchi present bilaterally Cardiovascular normal heart sounds Abdomen soft nontender nondistended normal bowel sounds Extremities no edema seen Urinary Catheter Management: Munson: Cath Placed During This Visit: no Reason for Continuing Indwelling Catheter: Acute Urinary Retention or Obstruction Data 09/15/23 10:39 09/15/23 10:39 A&P Assessment and plan (1) DOLORES (acute kidney injury): (2) Anemia: (3) Acute exacerbation of CHF (congestive heart failure): (4) Acute respiratory failure with hypoxia: (5) Ischemic cardiomyopathy: (6) NSTEMI (non-ST elevated myocardial infarction): (7) Chronic kidney disease: Qualifiers: Chronic kidney disease stage: stage 3 (moderate) Chronic kidney disease stage 3 subtype: stage 3a (GFR 45-59) Qualified Code(s): N18.31 - Chronic kidney disease, stage 3a (8) COPD (chronic obstructive pulmonary disease): Qualifiers: COPD type: unspecified COPD Qualified Code(s): J44.9 - Chronic obstructive pulmonary disease, unspecified Plan Plan to discharge home with home oxygen therapy ABG noted, she does not have chronic hypercarbia hence do not need BiPAP Follow-up case management for discharge planning Carb consistent diet. She is on p.o. Eliquis, will continue same for DVT prophylaxis P.o. Protonix for GI prophylaxis She is DNR/DNI for now. Attestations 2 Medical Necessity Statement*: She is hemodynamically stable, waiting for social work to go home with home oxygen therapy and home health services. Time Spent in Patient Care: 15 minutes Coding Level of Care Code Acute Code for [facility] Fwd Diagnoses DOLORES (acute kidney injury) N17.9 Anemia D64.9 Acute exacerbation of CHF (congestive heart failure) I50.9 Acute respiratory failure with hypoxia J96.01 Ischemic cardiomyopathy I25.5 NSTEMI (non-ST elevated myocardial infarction) I21.4 Stage 3a chronic kidney disease N18.31 Chronic kidney disease stage: stage 3 (moderate) Chronic kidney disease stage 3 subtype: stage 3a (GFR 45-59) Chronic obstructive pulmonary disease, unspecified COPD type J44.9 COPD type: unspecified COPD Time Spent (min) 15
[2023-09-15] MEDS: venlafaxine ER (24HR) 75 mg Capsule PO (21:28)
[2023-09-15] MEDS: atorvastatin 40 mg Tablet PO (21:29)
[2023-09-15] MEDS: venlafaxine ER (24HR) 150 mg Capsule PO (21:29)
[2023-09-15] MEDS: aspirin 81 mg EC Tablet PO (21:30)
[2023-09-15 21:32] LABS: Glucose Point of Care 323 mg/dL (70-110)
[2023-09-16] VITALS (10 sets, daily range): BP systolic 143–171; BP diastolic 62–71; PULSE 6–68; RESP 15–17; TEMP 36.5–36.7; O2SAT 96–98
[2023-09-16] MEDS: ipratropium 0.5 mg/2.5 mL Neb INHALATION ×3 (02:22→13:27)
[2023-09-16] MEDS: levalbuterol 0.63 mg/3 mL Neb 0.630000000000000004 MG INHALATION ×3 (02:22→13:27)
--- NOTE | 2023-09-16 06:35 | P.PN_ITS ---
Subjective 2 Subjective: Doing well. no chest pain Vitals/I&O/Wt Last Vital Signs Temp 98.1 F 09/16/23 04:00 Pulse 58 L 09/16/23 06:13 Resp 17 09/16/23 04:00 BP 160/66 09/16/23 04:00 Pulse Ox 97 09/16/23 04:00 O2 Del Method Nasal Cannula 09/16/23 04:00 O2 Flow Rate 2 09/16/23 02:24 FiO2 28 09/14/23 04:30 09/15/23 09/15/23 09/16/23 14:59 22:59 06:59 Intake Total 360 / 360 740 / 1100 Output Total 1000 / 1000 1050 / 2050 Balance 360 / 360 -260 / 100 -1050 / -950 Weight last 48 hrs Weight 139 lb 9 oz Weight 130 lb Weight 144 lb 6.4 oz Physical Exam 2 Narrative: GENERAL: Patient is alert, awake and oriented x3. [] NECK: No jugular vein distension. [] HEENT: No cyanosis. No icterus. No pallor. [] HEART: Regular S1 and S2. No murmur, rub or gallop. [] LUNGS: Bilateral crackles CENTRAL NERVOUS SYSTEM: Grossly nonfocal. [] EXTREMITIES: Lower extremities with 1+ edema bilaterally. Urinary Catheter Management: Munson: Cath Placed During This Visit: no Reason for Continuing Indwelling Catheter: Acute Urinary Retention or Obstruction Data 09/15/23 10:39 09/15/23 10:39 A&P Assessment and plan (1) Acute non-ST elevation myocardial infarction (NSTEMI): (2) Atherosclerotic heart disease of [place] coronary artery with other forms of angina pectoris: (3) Congestive heart failure: Qualifiers: Heart failure chronicity: chronic Heart failure type: combined systolic and diastolic Qualified Code(s): I50.42 - Chronic combined systolic (congestive) and diastolic (congestive) heart failure (4) Ischemic cardiomyopathy: (5) HTN (hypertension): Qualifiers: Hypertension type: primary hypertension Qualified Code(s): I10 - Essential (primary) hypertension (6) Pulmonary embolism: Qualifiers: Pulmonary embolism type: multiple subsegmental (without acute cor pulmonale) Qualified Code(s): I26.94 - Multiple subsegmental pulmonary emboli without acute cor pulmonale (7) Chronic kidney disease: Qualifiers: Chronic kidney disease stage: stage 3 (moderate) Chronic kidney disease stage 3 subtype: stage 3a (GFR 45-59) Qualified Code(s): N18.31 - Chronic kidney disease, stage 3a (8) Diabetes mellitus: Plan Blood pressure better but still on the higher side. Continue current medications. Can titrate antihypertensive regimen as outpatient. Attestations 2 Medical Necessity Statement*: Care expected to cross 2 midnights. Coding Level of Care Code Acute Code for [facility] Diagnoses Acute non-ST elevation myocardial infarction (NSTEMI) I21.4 Atherosclerotic heart disease of [place] coronary artery with other forms of angina pectoris I25.118 Chronic combined systolic and diastolic congestive heart failure I50.42 Heart failure chronicity: chronic Heart failure type: combined systolic and diastolic Ischemic cardiomyopathy I25.5 Primary hypertension I10 Hypertension type: primary hypertension Multiple subsegmental pulmonary emboli without acute cor pulmonale I26.94 Pulmonary embolism type: multiple subsegmental (without acute cor pulmonale) Stage 3a chronic kidney disease N18.31 Chronic kidney disease stage: stage 3 (moderate) Chronic kidney disease stage 3 subtype: stage 3a (GFR 45-59) Diabetes mellitus E11.9
[2023-09-16 06:36] LABS: Glucose Point of Care 115 mg/dL (70-110)
[2023-09-16] MEDS: clopidogrel 75 mg Tablet PO (08:42)
[2023-09-16] MEDS: apixaban 5 mg Tablet 2.5 MG PO (08:42)
[2023-09-16] MEDS: predniSONE 10 mg Tablet 40 MG PO (08:42)
[2023-09-16] MEDS: bumetanide 1 mg Tablet PO (08:42)
[2023-09-16] MEDS: hyDRALAzine 50 mg Tablet 100 MG PO ×2 (08:42→14:24)
[2023-09-16] MEDS: methIMAzole 5 MG Tablet PO (08:43)
[2023-09-16] MEDS: isosorbide mononitrate ER 60 mg Tablet 90 MG PO (08:43)
[2023-09-16] MEDS: potassium chloride ER 10 mEq Tablet PO (08:43)
[2023-09-16] MEDS: pantoprazole DR 40 mg Tablet PO (08:43)
[2023-09-16 11:19] LABS: Glucose Point of Care 220 mg/dL (70-110)
--- NOTE | 2023-09-16 12:19 | PM.DCS ---
Discharge Providers Date of Admission: 09/11/23 11:01 Date of Discharge: September 16, 2023 Attending Provider at Admission: Moe Butler MD Attending Provider at Discharge: Alyssa Paul MD Consults: cardiology Primary Care Provider: Jocelyne Kirby Diagnoses at Discharge Discharge Diagnosis (1) Acute non-ST elevation myocardial infarction (NSTEMI): Status: Acute (2) Atherosclerotic heart disease of [place] coronary artery with other forms of angina pectoris: Status: Acute (3) Congestive heart failure: Status: Chronic Qualifiers: Heart failure chronicity: chronic Heart failure type: combined systolic and diastolic Qualified Code(s): I50.42 - Chronic combined systolic (congestive) and diastolic (congestive) heart failure (4) Ischemic cardiomyopathy: Status: Acute (5) HTN (hypertension): Status: Acute Qualifiers: Hypertension type: primary hypertension Qualified Code(s): I10 - Essential (primary) hypertension (6) Pulmonary embolism: Status: Acute Qualifiers: Pulmonary embolism type: multiple subsegmental (without acute cor pulmonale) Qualified Code(s): I26.94 - Multiple subsegmental pulmonary emboli without acute cor pulmonale (7) Chronic kidney disease: Status: Acute Qualifiers: Chronic kidney disease stage: stage 3 (moderate) Chronic kidney disease stage 3 subtype: stage 3a (GFR 45-59) Qualified Code(s): N18.31 - Chronic kidney disease, stage 3a (8) Diabetes mellitus: Status: Acute Reason for Visit Reason for Visit: SOB Brief History: Romi Yuan is a 72 year old female with past medical history of CAD post CABG, CHF with most recent cardiac angiogram in June 2023 which showed patent LOVETT to LAD, patent LCx. SVG graft to RCA, SVG to OM and [place] RCA known occluded with subtotal occlusion of small to medium diagonal and moderate subclavian artery stenosis. She was recently in the hospital for 1 week for respiratory failure for COPD exacerbation and CHF and was discharged to SNF for rehabitation on 09/09. She presented again to the ER today morning because of difficulty in breathing and not able to catch her breath. Patient states she had a very restful night but when she woke up today morning she was having difficulty breathing not improving with nebulization treatment and presented to the ER. In the ER she was found to have an elevated troponin of more than 2800. Patient was hemodynamically stable saturating more than 95% on 2 L. Hospital Course Hospital Course Cardiology consulted from the ER. Patient would like to have conservative treatment. She did not want to undergo cardiac angiogram because she is aware that she is at a high risk of needing dialysis and she does not want to risk that. She was started on IV heparin drip for NSTEMI and questionable PE. She also underwent dialysis for congestive heart failure. Her shortness of breath improved and there was less chance of new PE, hence heparin drip discontinued and she was started on home dose of p.o. Eliquis twice a day. She is feeling much better shortness of breath improved with nebulization diuresis and supplemental oxygen. She is doing better and is ready to be discharged home with home oxygen therapy Physical Exam Narrative: She is alert awake oriented x 3 pleasant Chest occasional rhonchi present bilaterally Cardiovascular normal heart sounds Abdomen soft nontender nondistended normal bowel sounds Extremities no edema seen Urinary Catheter Management: Munson: Cath Placed During This Visit: no Reason for Continuing Indwelling Catheter: Acute Urinary Retention or Obstruction Discharge Data Studies Completed and Pending Completed Studies During Hospitalization Category Date Time Status XR chest 1V portable [id number] Stat Exams 09/11/23 09:31 Completed CV. echo complete* [id number] Routine Ultrasound 09/12/23 11:54 Completed Radiology Impressions Chest X-Ray 09/11/23 09:31 IMPRESSION: Persistent right basilar consolidation and effusion. No size changer the past 2 days. Laboratory Results WBC 12.07 10^3/uL (3.29-11.43) H 09/15/23 10:39 RBC 3.34 10^6/uL (3.85-5.65) L 09/15/23 10:39 Hgb 8.80 g/dL (11.27-16.99) L 09/15/23 10:39 Hct 28.4 % (36-47) L 09/15/23 10:39 MCV 85.0 fl (85-98) 09/15/23 10:39 MCH 26.3 pg (27-33) L 09/15/23 10:39 MCHC 31.0 g/dL (30-55) 09/15/23 10:39 RDW 18.0 % (12.1-15.1) H 09/15/23 10:39 Plt Count 245 10^3/cmm (157-399) 09/15/23 10:39 MPV 10.8 fL (7.4-10.4) H 09/15/23 10:39 Neut % (Auto) 82.7 % 09/15/23 10:39 Lymph % (Auto) 10.7 % 09/15/23 10:39 [place] % (Auto) 5.4 % 09/15/23 10:39 Eos % (Auto) 0.5 % 09/15/23 10:39 Baso % (Auto) 0.1 % 09/15/23 10:39 Neut # (Auto) 9.99 10^3/uL (1.8-7.7) H 09/15/23 10:39 Lymph # (Auto) 1.3 10^3/uL (0.8-4.8) 09/15/23 10:39 [place] # (Auto) 0.7 10^3/uL (0.2-0.9) 09/15/23 10:39 Eos # (Auto) 0.1 10^3/uL (0.0-0.8) 09/15/23 10:39 Baso # (Auto) 0.0 10^3/uL (0.0-0.1) 09/15/23 10:39 Nucleated RBC % (auto) 0 % 09/15/23 10:39 Nucleated RBCs # 0.0 /100WBC 09/15/23 10:39 APTT 58.9 SECONDS (23.9-36.7) H 09/13/23 21:29 Specimen Type Arterial 09/14/23 12:10 Sample Site Radial, right 09/14/23 12:10 ABG pH 7.40 (7.35-7.45) 09/14/23 12:10 ABG pCO2 37.6 mmHg (35-45) 09/14/23 12:10 ABG pO2 74.2 mmHg (80.0-100.0) L 09/14/23 12:10 ABG HCO3 23.2 mmol/L (22-26) 09/14/23 12:10 ABG O2 Saturation 96.1 09/14/23 12:10 ABG Base Excess -1.4 mmol/L (-2.0-2.0) 09/14/23 12:10 Rene Test N/a 09/14/23 12:10 A-a O2 Gradient 3.7 mmHg (5-10) L 09/14/23 12:10 Hematocrit 29.3 % (37-47) L 09/14/23 12:10 Hgb O2 Saturation 94.2 % (95-100) L 09/14/23 12:10 Carboxyhemoglobin 1.3 %THgb (0.4-20.1) 09/14/23 12:10 Methemoglobin 0.6 % (0.4-1.5) 09/14/23 12:10 Total Hemoglobin 9.6 g/dL (12-16) L 09/14/23 12:10 Sodium 142.0 mmol/L (131-143) 09/14/23 12:10 Potassium 4.5 mmol/L (3.5-5.0) 09/14/23 12:10 Glucose 194.0 mg/dL (70-115) H 09/14/23 12:10 Ionized Calcium 1.3 mmol/L (1.1-1.4) 09/14/23 12:10 O2 Delivery Device Nc 09/14/23 12:10 O2 Liters/Min 1.0 % 09/14/23 12:10 Word Processing Operator ID Gd 09/14/23 12:10 Sodium 137 mmol/L (136-145) 09/15/23 10:39 Potassium 4.3 mmol/L (3.5-5.1) 09/15/23 10:39 Chloride 105 mmol/L (98-107) 09/15/23 10:39 Carbon Dioxide 23 mmol/L (22-29) 09/15/23 10:39 Anion Gap 13.3 (5-19) 09/15/23 10:39 BUN 77 mg/dL (8-23) H 09/15/23 10:39 Creatinine 2.1 mg/dL (0.5-0.9) H 09/15/23 10:39 GFR Calculation Not Reportable 09/15/23 10:39 Glucose 216 mg/dL (65-115) H 09/15/23 10:39 POC Glucose 220 mg/dL (70-110) H 09/16/23 10:57 Calculated Osmolality 314 mOsm/kg (285-295) H 09/15/23 10:39 Calcium 9.2 mg/dL (8.5-10.5) 09/15/23 10:39 Phosphorus 2.7 mg/dL (2.5-4.5) 09/12/23 02:30 Magnesium 2.0 mg/dL (1.7-2.3) 09/12/23 02:30 Total Bilirubin 0.3 mg/dL (0.15-1.2) 09/13/23 04:17 AST 16 U/L (0-32) 09/13/23 04:17 ALT 16 U/L (0-33) 09/13/23 04:17 Alkaline Phosphatase 96 U/L (35-105) 09/13/23 04:17 Troponin T 5th Gen ng/L 2252 ng/L (0-10) H* 09/12/23 08:24 Troponin T Baseline 2824 ng/L (0-10) H* 09/11/23 09:34 Troponin T 120 Minute 2638 ng/L (0-10) H 09/11/23 11:46 Delta Troponin T -186 ABS# (0-10) L 09/11/23 11:46 Troponin T Hi Sens 6Hr 1999 ng/L (0-10) H 09/11/23 16:04 Troponin T Hi Sens 6Hr Delta -825 ng/L (0-12) L 09/11/23 16:04 NT-Pro-B Natriuret Pep > 36597 pg/mL (0-125) H 09/11/23 09:34 Total Protein 5.4 g/dL (6.6-8.7) L 09/13/23 04:17 Albumin 3.0 g/dL (3.5-5.2) L 09/13/23 04:17 Globulin 2.4 g/dL (1.3-4.6) 09/13/23 04:17 Vitals Last Vital Signs Temp 97.7 F 09/16/23 07:29 Pulse 63 09/16/23 10:58 Resp 17 09/16/23 10:58 BP 171/62 09/16/23 10:58 Pulse Ox 97 09/16/23 10:58 O2 Del Method Room Air 09/16/23 10:58 O2 Flow Rate 1 09/16/23 08:18 FiO2 28 09/14/23 04:30 Discharge Plan Discharge Patient Disposition: Home Condition: Stable Prescriptions: New metoprolol tartrate 50 mg Tablet 50 mg PO BID@0900,2100 7 Days Qty: 14 0RF hydralazine 50 mg Tablet 100 mg PO TID 10 Days Qty: 60 0RF Continued Anoro Ellipta 62.5-25 mcg/actuation blister with device 1 inh INHALATION DAILY isosorbide mononitrate 60 mg tablet extended release 24 hr 60 mg PO BID venlafaxine [Effexor XR] 150 mg capsule,extended release 24hr See Rx Instructions .ROUTE .COMPLEX Rx Instructions: TAKE 150 MG BY MOUTH AT BEDTIME ALONG WITH 75 MG potassium chloride 10 mEq tablet extended release 10 meq PO BID Qty: 180 1RF Hold Instructions: Resume on 06/20/23. Jardiance 10 mg tablet 10 mg PO DAILY apixaban 2.5 mg tablet 2.5 mg PO BID Qty: 180 2RF methimazole 5 mg tablet 5 mg PO DAILY Qty: 30 3RF (DME) Accu-Chek Ana M Plus test strp Strip See Rx Instructions .ROUTE .MEDSUPPLY Qty: 120 3RF Rx Instructions: check blood glucose four times a day tizanidine 4 mg tablet 4 mg PO BEDTIME nitroglycerin [Nitrostat] 0.4 mg Tablet, Sublingual 0.4 mg SUBLINGUAL Q5M PRN (Reason: Chest Pain) Rx Instructions: do not exceed 3 doses per episode albuterol sulfate [Ventolin HFA] 90 mcg/actuation Hfa Aerosol Inhaler 2 puff INHALATION QID PRN (Reason: Shortness Of Breath) calcitriol 0.25 mcg capsule See Rx Instructions .ROUTE .COMPLEX Rx Instructions: TAKE 0.25 mcg orally 3 TIMES WEEKLY ON WEDNESDAY, WEDNESDAY, AND WEDNESDAY IN THE MORNING. clopidogrel [Plavix] 75 mg tablet 75 mg PO DAILY Qty: 60 0RF atorvastatin 40 mg tablet 40 mg PO BEDTIME venlafaxine 75 mg capsule,extended release 24hr See Rx Instructions .ROUTE .COMPLEX Rx Instructions: TAKE 75 MG BY MOUTH AT BEDTIME ALONG WITH 150 MG acitretin 10 mg capsule 10 mg PO QAM aspirin 81 mg Tablet,Delayed Release (Dr/Ec) 81 mg PO BEDTIME insulin glargine [Lantus Solostar U-100 Insulin] 100 unit/mL (3 mL) insulin pen See Rx Instructions .ROUTE .COMPLEX Rx Instructions: 20 unit subcutaneously daily as directed ergocalciferol (vitamin D2) [Vitamin D2] 1,250 mcg (50,000 unit) capsule 50,000 unit PO Q7D ferrous gluconate 324 mg (37.5 mg iron) Tablet 324 mg PO EVERY OTHER DAY Qty: 14 0RF amlodipine 10 mg Tablet 10 mg PO DAILY Qty: 30 0RF carvedilol 6.25 mg Tablet 6.25 mg PO BID Qty: 60 0RF bumetanide 1 mg Tablet 1 mg PO DAILY Qty: 60 0RF acetaminophen 325 mg Tablet 650 mg PO QID PRN (Reason: pain/fever) Dulcolax (bisacodyl) 10 mg Suppository 10 mg [place] DAILY PRN (Reason: Constipation) Discontinued insulin lispro [Humalog KwikPen Insulin] 100 unit/mL Insulin Pen See Rx Instructions .ROUTE .COMPLEX Rx Instructions: 10 UNITS TID DIRECTED acetaminophen 500 mg Tablet 500 mg PO BEDTIME prednisone 10 mg tablet See Taper PO DIRECTED Qty: 42 0RF Taper: predniSONE 60-10 60 mg Daily for 2 Days and 0 Hour 50 mg Daily for 2 Days and 0 Hour 40 mg Daily for 2 Days and 0 Hour 30 mg Daily for 2 Days and 0 Hour 20 mg Daily for 2 Days and 0 Hour 10 mg Daily for 2 Days and 0 Hour Rx Instructions: Start 60 mg, taper 10 mg every 2-day until you run out of the medication No Action hydralazine 50 mg Tablet 75 mg PO TID Qty: 90 0RF Other Ambulatory Orders: DME: Gómez (Order) Location: None Selected Ordered By: Alyssa Paul Referrals: Jocelyne Kirby PA [Primary Care Provider] - 09/22/23 1:40 pm Discharge Diet: Advance as tolerated Discharge Activity: Increase activity as tolerated Patient Instructions: Opioid Safety Activity Restrictions/Additional Instructions: follow up PCP in 1 week Discharge Attestations Time Spent in Discharge Care*: less than 30 min Status at Discharge: Cognitive status at discharge: cognitively intact, Behavioral status at discharge: cooperative, Quality Metrics Clinical Quality Measures [ No reported AMI, CVA or VTE this stay] Coding Level of Care Code Acute Code for [facility] Diagnoses Acute non-ST elevation myocardial infarction (NSTEMI) I21.4 Atherosclerotic heart disease of [place] coronary artery with other forms of angina pectoris I25.118 Chronic combined systolic and diastolic congestive heart failure I50.42 Heart failure chronicity: chronic Heart failure type: combined systolic and diastolic Ischemic cardiomyopathy I25.5 Primary hypertension I10 Hypertension type: primary hypertension Multiple subsegmental pulmonary emboli without acute cor pulmonale I26.94 Pulmonary embolism type: multiple subsegmental (without acute cor pulmonale) Stage 3a chronic kidney disease N18.31 Chronic kidney disease stage: stage 3 (moderate) Chronic kidney disease stage 3 subtype: stage 3a (GFR 45-59) Diabetes mellitus E11.9 Time Spent (min) 25
[2023-09-16] MEDS: insulin lispro 100 unit/1 mL SUBCUT (12:22)
== END 2023-09-16 16:38 | disposition home health service (06) | DRG 280 ==
LOC: ER 11:21 → CSU 11:46 → MEDSURG 09-16 00:34
PROVIDERS: Family Medicine; Internal Medicine; Admitting Provider Student in an Organized Health Care Education/Training Program; Emergency Provider Family Medicine; PCP Physician Assistant; Visit Provider Internal Medicine
DX: I21.4 Non-ST elevation (NSTEMI) myocardial infarction (principal); J96.01 Acute respiratory failure with hypoxia; I13.0 Hypertensive heart and chronic kidney disease with heart failure and stage 1 through stage 4 chronic kidney disease, or unspecified chronic kidney disease; I16.1 Hypertensive emergency; I50.42 Chronic combined systolic (congestive) and diastolic (congestive) heart failure; N17.9 Acute kidney failure, unspecified; I25.118 Atherosclerotic heart disease of native coronary artery with other forms of angina pectoris; E11.22 Type 2 diabetes mellitus with diabetic chronic kidney disease; N18.31 Chronic kidney disease, stage 3a; J44.9 Chronic obstructive pulmonary disease, unspecified; E11.51 Type 2 diabetes mellitus with diabetic peripheral angiopathy without gangrene; E78.5 Hyperlipidemia, unspecified; I25.2 Old myocardial infarction; G47.00 Insomnia, unspecified; F41.9 Anxiety disorder, unspecified; D63.1 Anemia in chronic kidney disease; I25.5 Ischemic cardiomyopathy; Z79.02 Long term (current) use of antithrombotics/antiplatelets; Z79.4 Long term (current) use of insulin; Z79.82 Long term (current) use of aspirin; Z79.01 Long term (current) use of anticoagulants; Z79.84 Long term (current) use of oral hypoglycemic drugs; Z95.1 Presence of aortocoronary bypass graft; Z87.01 Personal history of pneumonia (recurrent); Z87.891 Personal history of nicotine dependence; Z95.820 Peripheral vascular angioplasty status with implants and grafts; Z86.010 Personal history of colon polyps; Z85.828 Personal history of other malignant neoplasm of skin; Z86.73 Personal history of transient ischemic attack (TIA), and cerebral infarction without residual deficits; Z86.711 Personal history of pulmonary embolism
CPT/HCPCS: 36415; 36416; 36600; 71045; 80048; 80051; 80053; 82330; 82805; 82962; 83735; 83880; 84100; 84484; 85025; 85049; 85730; 93005; 93306; 94640; 94660; 94664; 96365; 96366; 96372; 96375; 96376; 99285; J0360; J1644; J1815; J3490; J7512; J7614; J7644

== ENCOUNTER 2023-11-11 15:55 | Observation (INO) | payer MEDICARE, MEDICAID, SELFPAY ==
[2023-11-11] VITALS (13 sets, daily range): BP systolic 139–201; BP diastolic 76–109; PULSE 79–114; RESP 14–26; TEMP 36.7–37.3; O2SAT 91–99; BMI 24.7
--- NOTE | 2023-11-11 16:05 | ECG_ITS ---
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 Measurements Intervals [place] Rate: 101 P: 51 [place]: 165 QRS: -40 QRSD: 135 T: 91 QT: 365 QTc: 475 Interpretive Statements SINUS TACHYCARDIA WITH OCCASIONAL VENTRICULAR PREMATURE COMPLEXES LEFT AXIS DEVIATION [QRS AXIS < -30] INTRAVENTRICULAR CONDUCTION DELAY [130+ ms QRS DURATION] LEFT VENTRICULAR HYPERTROPHY AND ST-T CHANGE [VOLTAGE CRITERIA PLUS ST/T ABNORMALITY] Compared to ECG 09/11/2023 16:30:27 Ventricular premature complex(es) now present Left ventricular hypertrophy now present ST (T wave) deviation still present Electronically Signed On 11-12-2023 0:40:13 CDT by Tristin Goldstein M.D. [email or web address]
--- NOTE | 2023-11-11 16:09 | XRR_ITS ---
PROCEDURE INFORMATION: Exam: XR Chest Exam date and time: 11/11/2023 4:14 PM Age: 73 years old Clinical indication: Dyspnea; Additional info: SOB TECHNIQUE: Imaging protocol: Radiologic exam of the chest. Views: 1 view. COMPARISON: CR (CHEST, ) 09/11/2023 9:48 AM FINDINGS: Lungs: Increased interstitial lung markings at the lung bases. No consolidation. Pleural spaces: No pleural effusion. No pneumothorax. Heart/Mediastinum: Sequela of prior CABG. Similar cardiomegaly. Bones/joints: Sternotomy wires noted. Visualized osseous structures are intact. XR/XR chest 1V portable [id number] IMPRESSION: Increased interstitial lung markings at the lung bases suggestive of interstitial pulmonary edema. Cardiomegaly.
--- NOTE | 2023-11-11 16:17 | ED_ITS ---
HPI - SOB/Dyspnea 2 General: Chief Complaint: Shortness of Breath/Dyspnea Stated Complaint: SOB Time Seen by Provider: 11/11/23 16:00 Source: patient and EMS Mode of arrival: EMS Limitations: no limitations History of Present Illness: HPI Narrative: 73-year-old female has a history of COPD along with CHF and hypertension. States she has not been taking her hypertension medicines been having some increasing dyspnea in the last 2 days. States it is worse with exertion she has tried breathing treatments with minimal relief denies any fever denies any new cough denies any chest pain. Associated symptoms: Deny abdominal pain, chest pain, fever(s), nausea or vomiting Review of Systems 2 Const: Denies: fever(s), chills, body aches or change in appetite ENMT: Denies: throat pain or dental pain Card: Denies: chest pain Resp: Reports: dyspnea GI: Denies: abdominal pain, nausea, vomiting or diarrhea Musc: Denies: neck pain or back pain Skin/Breast: Denies: rash Neuro: Denies: headache(s) PFSH ED 2 PFSH: Medical History Anemia Ischemic cardiomyopathy Atherosclerotic heart disease of [place] coronary artery with other forms of angina pectoris CHF exacerbation Acute non-ST elevation myocardial infarction (NSTEMI) Pulmonary embolism Congestive heart failure Acute respiratory failure with hypoxia Acute exacerbation of CHF (congestive heart failure) Diabetes mellitus PAD (peripheral artery disease) Dyslipidemia HTN (hypertension) NSTEMI (non-ST elevated myocardial infarction) Eczema CAD (coronary artery disease) Clostridioides difficile infection (07/2022) Insomnia CHF (congestive heart failure) Chronic kidney disease Hypertensive urgency Pneumonia due to COVID-19 virus (~06/2022) Colon polyps History of skin cancer Hyperthyroidism Graves disease History of CVA (cerebrovascular accident) COPD (chronic obstructive pulmonary disease) Anxiety Carotid arterial disease ASHD (arteriosclerotic heart disease) Surgical History Status post insertion of iliac artery stent History of coronary artery stent placement History of cardiac catheterization 06/25/2022 Left main artery: Short, patent. Left circumflex artery: Has patent stents, no significant stenosis. LAD:Occluded in the midsegment. RCA: Known occluded. Not injected. SVG to diagonal artery and SVG to RCA are known occluded. Not injected. LOVETT to LAD: Patent. Coronary anatomy unchanged compared to before. History of renal stent Hx of local excision of skin lesion (09/16/20) Left forearm x2 Status post colonoscopy (09/16/20) S/P hysterectomy with oophorectomy S/P cholecystectomy S/P CABG (coronary artery bypass graft) twice, last in 2004 History of endovascular stent graft for abdominal aortic aneurysm (AAA) S/P cataract surgery S/P skin and subcutaneous tissue surgery Family History Sister Mark's disease Sister No problems noted. Mother No problems noted. Other Anesthesia complication Social History Smoking and tobacco/nicotine status: former use of tobacco/nicotine Alcohol intake: current Alcohol intake frequency: holidays/special occasions only Substance/Drug Use: current Physical Exam 2 Const: COMMON NORMALS: patient oriented x3 HENMT: COMMON NORMALS: normocephalic and atraumatic HEAD & SCALP: n ormocephalic and atraumatic Eye: COMMON NORMALS: Equal, round and reactive pupils present and EOMs intact bilaterally PUPIL: Yes Equal, round and reactive pupils present Neck/C-Spine: COMMON NORMALS: full ROM and supple Chest: COMMONS NORMALS: normal inspection of the chest and normal palpation of entire chest wall Resp: COMMON NORMALS: normal respiratory effort, No retractions, No use of accessory muscles and clear to auscultation bilaterally AUSCULTATION: clear to auscultation bilaterally Cardio: COMMON NORMALS: regular rate, regular rhythm and No murmurs present (Cardio) RATE: regular rate RHYTHM: regular rhythm GI: COMMON NORMALS: Normal to inspection, nondistended, normoactive bowel sounds present, Soft to palpation, non-tender and no masses PALPATION: Yes Soft to palpation Extremity: COMMON NORMALS: normal to inspection and full ROM Neuro: COMMON NORMALS: patient oriented x3, moves all extremities and no focal motor deficits Psych: COMMON NORMALS: mental status grossly normal, Normal thought process present and cooperative THOUGHT PROCESS: Normal thought process present Skin: COMMON NORMALS: no rashes or lesions noted and no wounds GENERAL SKIN EXAM: no rashes or lesions noted Course 2 Vital Signs: Vital signs: Vital Signs Temperature 99.1 F 11/11/23 16:01 Pulse Rate 107 H 11/11/23 17:11 Respiratory Rate 20 H 11/11/23 17:11 Blood Pressure 171/108 11/11/23 17:11 Pulse Oximetry 95 11/11/23 17:11 Oxygen Delivery Me thod Nasal Cannula 11/11/23 17:11 Oxygen Flow Rate 3 11/11/23 17:42 MDM - SOB/Dyspnea Medical Decision Making Patient presents here with increasing shortness of breath likely from CHF versus a pneumonia x-ray did show increased lung markings at the bases her BNP is elevated does have an elevated white count as well did get blood cultures start antibiotics. Patient not given any fluids here due to her severe CHF. Medical Records I reviewed the patient's medical records. Lab Data I reviewed the patient's lab results. 11/11/23 15:40 11/11/23 15:40 Labs/Radiology: Radiology Impressions Chest X-Ray 11/11/23 16:09 IMPRESSION: Increased interstitial lung markings at the lung bases suggestive of interstitial pulmonary edema. Cardiomegaly. Laboratory Results WBC 16.33 10^3/uL (3.29-11.43) H 11/11/23 15:40 RBC 4.72 10^6/uL (3.85-5.65) 11/11/23 15:40 Hgb 12.20 g/dL (11.27-16.99) 11/11/23 15:40 Hct 40.2 % (36-47) 11/11/23 15:40 MCV 85.2 fl (85-98) 11/11/23 15:40 MCH 25.8 pg (27-33) L 11/11/23 15:40 MCHC 30.3 g/dL (30-55) 11/11/23 15:40 RDW 15.8 % (12.1-15.1) H 11/11/23 15:40 Plt Count 410 10^3/cmm (157-399) H 11/11/23 15:40 MPV 11.0 fL (7.4-10.4) H 11/11/23 15:40 Neut % (Auto) 81.0 % 11/11/23 15:40 Lymph % (Auto) 12.8 % 11/11/23 15:40 [place] % (Auto) 5.5 % 11/11/23 15:40 Eos % (Auto) 0.1 % 11/11/23 15:40 Baso % (Auto) 0.2 % 11/11/23 15:40 Neut # (Auto) 13.22 10^3/uL (1.8-7.7) H 11/11/23 15:40 Lymph # (Auto) 2.1 10^3/uL (0.8-4.8) 11/11/23 15:40 [place] # (Auto) 0.9 10^3/uL (0.2-0.9) 11/11/23 15:40 Eos # (Auto) 0.0 10^3/uL (0.0-0.8) 11/11/23 15:40 Baso # (Auto) 0.0 10^3/uL (0.0-0.1) 11/11/23 15:40 Nucleated RBC % (auto) 0 % 11/11/23 15:40 Nucleated RBCs # 0.0 /100WBC 11/11/23 15:40 D-Dimer Cancelled 11/11/23 15:40 Specimen Type Arterial 11/11/23 17:09 Sample Site Radial, left 11/11/23 17:09 ABG pH 7.52 (7.35-7.45) H 11/11/23 17:09 ABG pCO2 30.2 mmHg (35-45) L 11/11/23 17:09 ABG pO2 63.2 mmHg (80.0-100.0) L 11/11/23 17:09 ABG PO2/FiO2 Ratio 0 11/11/23 17:09 ABG HCO3 24.7 mmol/L (22-26) 11/11/23 17:09 ABG Base Excess 2.3 mmol/L (-2.0-2.0) H 11/11/23 17:09 Rene Test Pos 11/11/23 17:09 Hematocrit 35.3 % (37-47) L 11/11/23 17:09 Hgb O2 Saturation 92.5 % (95-100) L 11/11/23 17:09 Carboxyhemoglobin 2.9 %THgb (0.4-20.1) 11/11/23 17:09 Methemoglobin 0.4 % (0.4-1.5) 11/11/23 17:09 Total Hemoglobin 11.5 g/dL (12-16) L 11/11/23 17:09 O2 Delivery Device Nc 11/11/23 17:09 O2 Liters/Min 2.0 % 11/11/23 17:09 FiO2 28.0 % 11/11/23 17:09 Enrichment Assistant ID glc 11/11/23 17:09 Sodium 142 mmol/L (136-145) 11/11/23 15:40 Potassium 4.0 mmol/L (3.5-5.1) 11/11/23 15:40 Chloride 103 mmol/L (98-107) 11/11/23 15:40 Carbon Dioxide 23 mmol/L (22-29) 11/11/23 15:40 Anion Gap 20.0 (5-19) H 11/11/23 15:40 BUN 29 mg/dL (8-23) H 11/11/23 15:40 Creatinine 1.7 mg/dL (0.5-0.9) H 11/11/23 15:40 GFR Calculation Not Reportable 11/11/23 15:40 Glucose 353 mg/dL (65-115) H 11/11/23 15:40 Calculated Osmolality 314 mOsm/kg (285-295) H 11/11/23 15:40 Lactic Acid 3.1 mmol/L (0.5-2.2) H 11/11/23 15:40 Calcium 9.5 mg/dL (8.5-10.5) 11/11/23 15:40 Total Bilirubin 0.4 mg/dL (0.15-1.2) 11/11/23 15:40 AST 34 U/L (0-32) H 11/11/23 15:40 ALT 16 U/L (0-33) 11/11/23 15:40 Alkaline Phosphatase 169 U/L (35-105) H 11/11/23 15:40 NT-Pro-B Natriuret Pep > 60476 pg/mL (0-125) H 11/11/23 15:40 Total Protein 7.6 g/dL (6.6-8.7) 11/11/23 15:40 Albumin 3.8 g/dL (3.5-5.2) 11/11/23 15:40 Globulin 3.8 g/dL (1.3-4.6) 11/11/23 15:40 All radiology interpretation(s) finalized by discharge Discharge Plan Discharge Patient Disposition: Admitted As Inpatient Clinical Impression: Community acquired pneumonia, Congestive heart failure Condition: Stable Coding Level of Care Code ED Blending Line Attendant for Kiran Holland
[2023-11-11] MEDS: hyDRALAzine 20 mg/mL INJ 1 mL 10 MG IVP (16:19)
[2023-11-11] MEDS: methylPREDNISolone sod succ 125 mg/2 mL INJ IV (16:21)
[2023-11-11 16:35] LABS: Basophils % 0.2 %; Eosinophils % 0.1 %; Hematocrit 40.2 % (36-47); Lymphocytes # 2.1 10^3/uL (0.8-4.8); Lymphocytes % 12.8 %; Mean Corpuscular HGB Conc 30.3 g/dL (30-55); Mean Corpuscular Hemoglobin 25.8 pg (27-33); Mean Corpuscular Volume 85.2 fl (85-98); Monocytes # 0.9 10^3/uL (0.2-0.9); Monocytes % 5.5 %; Neutrophils # 13.22 10^3/uL (1.8-7.7); Nucleated Red Blood Cells % 0 %; Platelet Count 410 10^3/cmm (157-399); Red Blood Count 4.72 10^6/uL (3.85-5.65); Red Cell Distribution Width 15.8 % (12.1-15.1); White Blood Count 16.33 10^3/uL (3.29-11.43)
[2023-11-11] MEDS: ipratropium-albuterol 3 mL Neb INHALATION ×2 (16:50→21:25)
[2023-11-11] MEDS: albuterol 2.5 mg/3 mL Neb INHALATION (16:50)
[2023-11-11 17:11] LABS: Alanine Aminotransferase 16 U/L (0-33); Albumin Level 3.8 g/dL (3.5-5.2); Alkaline Phosphatase 169 U/L (35-105); Aspartate Amino Transferase 34 U/L (0-32); Blood Urea Nitrogen 29 mg/dL (8-23); Calcium 9.5 mg/dL (8.5-10.5); Carbon Dioxide 23 mmol/L (22-29); Chloride 103 mmol/L (98-107); Creatinine Clr Calc Pharmacy 23.4232; Globulin 3.8 g/dL (1.3-4.6); Glucose 353 mg/dL (65-115); Osmolality Calculated 314 mOsm/kg (285-295); Sodium 142 mmol/L (136-145); Total Bilirubin 0.4 mg/dL (0.15-1.2); Total Protein 7.6 g/dL (6.6-8.7)
[2023-11-11 17:20] LABS: ABG PCO2 30.2 mmHg (35-45); ABG PH Result 7.52 (7.35-7.45); Arterial Blood Gas Hematocrit 35.3 % (37-47); Base Excess ABG 2.3 mmol/L (-2.0-2.0); Blood Gas Allen Test Pos; Blood Gas Operator Identificat glc; Blood Gas Sample Site Radial, left; Blood Gas Sample Type Arterial; Carboxyhemoglobin 2.9 %THgb (0.4-20.1); HCO3 ABG 24.7 mmol/L (22-26); HGB O2 Sat 92.5 % (95-100); Methemoglobin 0.4 % (0.4-1.5); Oxygen Device NC; PO2 ABG 63.2 mmHg (80.0-100.0); PO2 FiO2 Ratio Arterial Blood 0; Total Hemoglobin 11.5 g/dL (12-16)
[2023-11-11 17:45] LABS: NT Pro B Type Natriuretic Pept > 70000 pg/mL (0-125)
[2023-11-11 17:56] LABS: Lactic Sepsis W/Reflex 3.1 mmol/L (0.5-2.2)
[2023-11-11] MEDS: FUROsemide 10 mg/mL SDV 10mL 60 MG IVP (18:10)
--- NOTE | 2023-11-11 18:20 | P.HP_ITS ---
Providers/Chief Complaint 2 Primary Care Provider: Jocelyne Kirby Chief Complaint: SOB History of Present Illness Romi Yuan is a 73 year old female who has had multiple admissions to hospital related to non-STEMI and CHF exacerbation, present to the hospital for worsening of shortness of orthopnea and PND. Patient stating that she was not sure that she had to use oxygen 24/7 on last admission she was prescribed 2 L of oxygen which she did not use on daily basis. She is not a smoker anymore, watches her sodium and fluid intake, compliant with her medications. In the ER she was diagnosed with CHF exacerbation, she also has leukocytosis, patient is stating that her last Eliquis dose was in the morning along with aspirin and Plavix, She is compliant with her Bumex as well creatinine is 1.7 Review of Systems 2 Const: Denies: fever(s) Eyes: Denies: change in vision ENMT: Denies: throat pain Card: Denies: chest pain Resp: Reports: dyspnea GI: Denies: abdominal pain or coffee ground emesis Medications/Allergies Home Medications Medication Instructions Recorded Confirmed Last Taken Type isosorbide mononitrate 60 mg 60 mg PO BID 07/20/19 09/11/23 09/11/23 History tablet,extended release 24 hr umeclidinium 62.5 mcg-vilanterol 1 inh inhalation DAILY 07/20/19 09/11/23 09/11/23 History 25 mcg/actuation powdr for inhalation (Anoro Ellipta) venlafaxine 150 mg See Rx Instructions .Route .COMPLEX 07/20/19 09/11/23 09/10/23 History capsule,extended release 24 hr (Effexor XR) methimazole 5 mg tablet 5 mg PO DAILY #30 tabs 03/11/20 09/11/23 09/11/23 Rx blood sugar diagnostic (Accu-Chek #120 ea 06/23/21 09/11/23 Unknown Rx Ana M Plus test strips) clopidogrel 75 mg tablet (Plavix) 75 mg PO DAILY #60 tabs 06/15/22 09/11/23 09/11/23 Rx acitretin 10 mg capsule 10 mg PO QAM 06/19/22 09/11/23 06/16/23 History atorvastatin 40 mg tablet 40 mg PO BEDTIME 06/19/22 09/11/23 09/10/23 History venlafaxine 75 mg capsule,extended See Rx Instructions .Route .COMPLEX 06/19/22 09/11/23 09/10/23 History release 24 hr acetaminophen 500 mg tablet 500 mg PO BEDTIME 07/09/22 09/11/23 09/10/23 History albuterol sulfate 90 mcg/actuation 2 puff inhalation QID PRN 07/09/22 09/11/23 09/11/23 History aerosol inhaler (Ventolin HFA) Shortness Of Breath insulin lispro 100 unit/mL See Rx Instructions .Route .COMPLEX 07/09/22 09/11/23 09/11/23 History subcutaneous pen (Humalog KwikPen (U-100) Insulin) nitroglycerin 0.4 mg sublingual 0.4 mg sublingual Q5M PRN Chest 07/09/22 09/11/23 02/26/23 History tablet (Nitrostat) Pain tizanidine 4 mg tablet 4 mg PO BEDTIME 07/09/22 09/11/23 09/10/23 History empagliflozin 10 mg tablet 10 mg PO DAILY 09/07/22 09/11/23 09/11/23 History (Jardiance) potassium chloride 10 mEq 10 meq PO BID #180 tabs 11/26/22 09/11/23 09/11/23 Rx tablet,extended release apixaban 2.5 mg tablet 2.5 mg PO BID #180 tabs 05/19/23 09/11/23 09/11/23 Rx calcitriol 0.25 mcg capsule See Rx Instructions .Route .COMPLEX 06/17/23 09/11/23 06/16/23 History aspirin 81 mg tablet,delayed 81 mg PO BEDTIME 09/03/23 09/11/23 09/10/23 History release ergocalciferol (vitamin D2) 1,250 50,000 unit PO Q7D 09/03/23 09/11/23 09/08/23 History mcg (50,000 unit) capsule (Vitamin D2) insulin glargine 100 unit/mL (3 See Rx Instructions .Route .COMPLEX 09/03/23 09/11/23 09/10/23 History mL) subcutaneous pen (Lantus Solostar U-100 Insulin) amlodipine 10 mg tablet 10 mg PO DAILY #30 tabs 0409/11/23 09/11/23 Rx bumetanide 1 mg tablet 1 mg PO DAILY #60 tabs 09/10/23 09/11/23 Unknown Rx carvedilol 6.25 mg tablet 6.25 mg PO BID #60 tabs 09/10/23 09/11/23 09/11/23 Rx ferrous gluconate 324 mg (37.5 mg 324 mg PO EVERY OTHER DAY #14 tabs 09/10/23 09/11/23 Unknown Rx iron) tablet hydralazine 50 mg tablet 75 mg (1.5 x 50 mg) PO TID #90 tabs 09/10/23 09/11/23 09/11/23 Rx prednisone 10 mg tablet See Taper PO DIRECTED #42 tabs 09/10/23 09/11/23 09/11/23 Rx acetaminophen 325 mg tablet 650 mg PO QID PRN pain/fever 09/11/23 09/11/23 Unknown History bisacodyl 10 mg rectal suppository 10 mg MO DAILY PRN Constipation 09/11/23 09/11/23 Unknown History (Dulcolax (bisacodyl)) Allergies Allergy/AdvReac Type Severity Reaction Status Date / Time cefuroxime [From Ceftin] Allergy ALGY-Rash Verified 11/11/23 16:11 cephalexin [From Keflex] Allergy ALGY-Rash Verified 11/11/23 16:11 hydroxyzine [From Vistaril] Allergy ALGY-Anaphy Verified 11/11/23 16:11 laxis Penicillins Allergy ALGY-Redness Verified 11/11/23 16:11 of Skin prochlorperazine Allergy ALGY-Anaphy Verified 11/11/23 16:11 [From Compazine] laxis promethazine [From Phenergan] Allergy ALGY-Anaphy Verified 11/11/23 16:11 laxis venom-honey bee Allergy ALGY-Anaphy Verified 11/11/23 16:11 laxis simvastatin [From Zocor] AdvReac ADR-Heartbu Verified 11/11/23 16:11 rn PFSH Acute 2 PFSH: Medical History Anemia Ischemic cardiomyopathy Atherosclerotic heart disease of [place] coronary artery with other forms of angina pectoris CHF exacerbation Acute non-ST elevation myocardial infarction (NSTEMI) Pulmonary embolism Congestive heart failure Acute respiratory failure with hypoxia Acute exacerbation of CHF (congestive heart failure) Diabetes mellitus PAD (peripheral artery disease) Dyslipidemia HTN (hypertension) NSTEMI (non-ST elevated myocardial infarction) Eczema CAD (coronary artery disease) Clostridioides difficile infection (07/2022) Insomnia CHF (congestive heart failure) Chronic kidney disease Hypertensive urgency Pneumonia due to COVID-19 virus (~06/2022) Colon polyps History of skin cancer Hyperthyroidism Graves disease History of CVA (cerebrovascular accident) COPD (chronic obstructive pulmonary disease) Anxiety Carotid arterial disease ASHD (arteriosclerotic heart disease) Surgical History Status post insertion of iliac artery stent History of coronary artery stent placement History of cardiac catheterization 06/25/2022 Left main artery: Short, patent. Left circumflex artery: Has patent stents, no significant stenosis. LAD:Occluded in the midsegment. RCA: Known occluded. Not injected. SVG to diagonal artery and SVG to RCA are known occluded. Not injected. LOVETT to LAD: Patent. Coronary anatomy unchanged compared to before. History of renal stent Hx of local excision of skin lesion (09/16/20) Left forearm x2 Status post colonoscopy (09/16/20) S/P hysterectomy with oophorectomy S/P cholecystectomy S/P CABG (coronary artery bypass graft) twice, last in 2004 History of endovascular stent graft for abdominal aortic aneurysm (AAA) S/P cataract surgery S/P skin and subcutaneous tissue surgery Family History Sister Mark's disease Sister No problems noted. Mother No problems noted. Other Anesthesia complication Social History Smoking and tobacco/nicotine status: former use of tobacco/nicotine Alcohol intake: current Alcohol intake frequency: holidays/special occasions only Substance/Drug Use: current Vitals/I&O/Wt Last Vital Signs Temp 99.1 F 11/11/23 16:01 Pulse 102 H 11/11/23 18:16 Resp 20 H 11/11/23 18:16 BP 171/108 11/11/23 17:11 Pulse Ox 98 11/11/23 18:16 O2 Del Method Nasal Cannula 11/11/23 18:16 O2 Flow Rate 2 11/11/23 18:16 Weight last 48 hrs Weight 57.606 kg Physical Exam 2 Narrative: Mild signs of fluid overload Crackles positive Currently on 2 L S1, S2 Awake and alert Currently on 2 L pleasant cooperative Low 70s on C3 D1 Data 11/11/23 15:40 11/11/23 15:40 Micro: Microbiology 11/11/23 17:43 Blood Culture - Preliminary Blood SPECIMEN COLLECTED 11/11/23 17:38 Blood Culture - Preliminary Blood SPECIMEN COLLECTED A&P Assessment and plan (1) Hypertension, uncontrolled: (2) Congestive heart failure: (3) Stable angina: (4) PAD (peripheral artery disease): (5) Hyperthyroidism: (6) Community acquired pneumonia: Plan Preserved ejection fraction heart exacerbation Patient is watching her fluid and sodium intake Acute on chronic hypoxia Currently on 2 L Patient is stating that she was not sure that she was supposed to use oxygen 28/12 I would not repeat echo I will give her IV Bumex Continue Plavix along Eliquis Likely will be discharged within 48 hours DNR/DNI Lives alone, Previous admission she was manage medically for non-STEMI Chronic kidney disease without acute exacerbation Attestations 2 Medical Necessity Statement*: Anticipating discharge within 48 hours Diagnoses Hypertension, uncontrolled I10 Congestive heart failure I50.9 Stable angina I20.89 PAD (peripheral artery disease) I73.9 Hyperthyroidism E05.90 Community acquired pneumonia J18.9
[2023-11-11] MEDS: levofloxacin-dextrose 5 % 750 MG/150 ML PREMIX 100 MG IV (18:30)
[2023-11-11 19:13] LABS: Procalcitonin 0.16 ng/mL (0-0.5)
[2023-11-11 19:16] LABS: Reflex Lactate Order REFLEX LACTIC ORDERD
[2023-11-11 20:26] LABS: Glucose Point of Care 367 mg/dL (70-110)
[2023-11-11 20:34] LABS: Lactic Acid level (Lactate) 2.2 mmol/L (0.5-2.2)
[2023-11-11] MEDS: hyDRALAzine 50 mg Tablet 75 MG PO (20:42)
[2023-11-11] MEDS: bumetanide 0.25 mg/mL SDV 10 mL 2 MG IVP (20:43)
[2023-11-11] MEDS: insulin glargine 100 units/1 mL 20 UNIT SUBCUT (20:56)
[2023-11-11] MEDS: insulin regular-human 10 UNIT in SYRINGE 1 EACH IVP (20:57)
[2023-11-12] VITALS (9 sets, daily range): BP systolic 137–163; BP diastolic 61–70; PULSE 68–85; RESP 14–22; TEMP 36.6–36.8; O2SAT 98–100
[2023-11-12] MEDS: ipratropium-albuterol 3 mL Neb INHALATION (02:47)
[2023-11-12 06:25] LABS: Glucose Point of Care 239 mg/dL (70-110)
[2023-11-12 06:37] LABS: Basophils % 0.2 %; Hematocrit 35.1 % (36-47); Lymphocytes # 1.2 10^3/uL (0.8-4.8); Mean Corpuscular HGB Conc 29.9 g/dL (30-55); Mean Corpuscular Hemoglobin 25.4 pg (27-33); Mean Platelet Volume 10.5 fL (7.4-10.4); Monocytes # 0.5 10^3/uL (0.2-0.9); Monocytes % 7.9 %; Neutrophils # 4.58 10^3/uL (1.8-7.7); Neutrophils % 72.4 %; Nucleated Red Blood Cells % 0 %; Platelet Count 279 10^3/cmm (157-399); Red Blood Count 4.13 10^6/uL (3.85-5.65); Red Cell Distribution Width 15.8 % (12.1-15.1); White Blood Count 6.32 10^3/uL (3.29-11.43)
[2023-11-12 07:05] LABS: Anion Gap 14.3 (5-19); Blood Urea Nitrogen 33 mg/dL (8-23); Calcium 9.3 mg/dL (8.5-10.5); Carbon Dioxide 27 mmol/L (22-29); Chloride 104 mmol/L (98-107); Creatinine Clr Calc Pharmacy 23.4376; Glucose 231 mg/dL (65-115); Magnesium 2.4 mg/dL (1.7-2.3); Osmolality Calculated 309 mOsm/kg (285-295); Potassium 3.3 mmol/L (3.5-5.1); Sodium 142 mmol/L (136-145)
--- NOTE | 2023-11-12 08:57 | PC.CHAP ---
Pastoral Care Encounter/Spiritual Assessment Type of Contact [] Declined matcher visit [] Patient/Family/Request visit [] Outpatient visit [] Follow-up visit [] Physician referral [] Code/Alert [x] Routine visit [] Staff referral [] Actively dying [] Patient sleeping [] Family support [] [] Out of room [] Palliative care [] [] Receiving care in room [] Pre-surgical visit [] Trauma [] Long length of stay [] ICU visit [] Other: Relational/Emotional Strength [x] Patient feels connected with others/family/visitors/staff [] Distress [] Loneliness/isolation [] Abandonment Spirituality of Patient [x] Person of Evelin [] Attends Pentecostal of their Evelin [x] Believes in Prayer [] Reads Bible or Presybeterian materials [] There are Spiritual issues to be addressed [employer]ter Interventions [x] Prayer [x] Active listening [] Non-anxious presence [x] Spiritual/emotional support [] Crisis/trauma care [] Spiritual counseling [] Bereavement support [] Provided bereavement packet [] Provided Bible/devotional materials [] Provided toy/stuffed animal, coloring book to patient or family member [] Provided Communion [] Anointing/[place] [] Salvation [x] Completed spiritual assessment [] Other: Impact on Illness or Injury [] Angry [] Fearful [] Anxious [] Often cries [] Exhaustion [] Unable to work [] Unable to attend zoroastrian [] Unable to walk/stand [] Unable to read [] Unable to drive [] Unable to eat/drink [] Unable to sleep [] Unable to be with family [] Patient intubated [] Other: Summary Time spent with patient 10 min
[2023-11-12] MEDS: bumetanide 0.25 mg/mL SDV 10 mL 2 MG IVP (09:00)
[2023-11-12] MEDS: insulin lispro 100 unit/1 mL SUBCUT (09:00)
[2023-11-12] MEDS: carvedilol 6.25 mg Tablet PO (09:01)
[2023-11-12] MEDS: clopidogrel 75 mg Tablet PO (09:01)
[2023-11-12] MEDS: hyDRALAzine 50 mg Tablet 75 MG PO (09:01)
[2023-11-12] MEDS: amlodipine 10 mg Tablet PO (09:01)
[2023-11-12] MEDS: apixaban 5 mg Tablet 2.5 MG PO (09:01)
[2023-11-12] MEDS: isosorbide mononitrate ER 60 mg Tablet PO (09:01)
--- NOTE | 2023-11-12 09:32 | PC.PHAR ---
PT UNABLE TO VERIFY HOME MEDS DUE TO BIPAP. MED REC DONE VIA PREVIOUS INTERNAL AND EXTERNAL MED LIST. PHONED PHARMACY FOR MOST CURRENT MEDICATIONS. AMLODIPINE, HYDRALAZINE,ISOSORBIDE MONONITRATE, AND POTASSIUM CHL REMOVED FROM MED LIST DUE TO LAST FILL AND PUNCH HAND BEING LONGER THAN 60 DAYS.
--- NOTE | 2023-11-12 09:45 | P.DS_ITS ---
Discharge Providers Date of Admission: 11/11/23 19:16 Date of Discharge: November 12, 2023 Attending Provider at Admission: Smiley Hanson MD Attending Provider at Discharge: Smiley Hanson MD Primary Care Provider: Jocelyne Kirby Diagnoses at Discharge Discharge Diagnosis (1) Hypertension, uncontrolled: Status: Acute (2) Congestive heart failure: Status: Acute (3) Stable angina: Status: Acute (4) PAD (peripheral artery disease): Status: Acute (5) Hyperthyroidism: Status: Chronic (6) Community acquired pneumonia: Status: Acute Reason for Visit Reason for Visit: SOB Hospital Course Hospital Course 73-year-old female who was admitted for management evaluation orthopnea PND mild CHF exacerbation, patient is stating that she does have Inogen but she was not sure that she had to use 28/12, she was only using it on as-needed basis, she has stopped smoking, she watches her fluid and sodium intake, compliant with her medications, she takes Eliquis for her A-fib as well. She has not noticed any GI bleed. She lives alone manages daily activities without any difficulties. With IV diuresis in the hospital patient is stating that she is feeling much better, she is hemodynamically stable, doing well on 2 L nasal cannula. Clinically she does not look fluid overloaded, bilateral breath sounds without any cardiac wheezing or significant crackles. Hemoglobin has remained stable. Urine output has not been calculated but patient is stating that she has voided with the IV diuretics. Recent echo showed EF 45 to 50%. Physical Exam Narrative: Patient clinically is euvolemic Currently on 2 L Hemodynamically stable Pleasant cooperative Abdomen soft Discharge Data Studies Completed and Pending Completed Studies During Hospitalization Category Date Time Status XR chest 1V portable [id number] Stat Exams 11/11/23 16:09 Completed Pending at discharge Category Date Time Status Blood Culture Stat Lab 11/11/23 17:43 Results Radiology Impressions Chest X-Ray 11/11/23 16:09 IMPRESSION: Increased interstitial lung markings at the lung bases suggestive of interstitial pulmonary edema. Cardiomegaly. Laboratory Results WBC 6.32 10^3/uL (3.29-11.43) 11/12/23 06:11 RBC 4.13 10^6/uL (3.85-5.65) 11/12/23 06:11 Hgb 10.50 g/dL (11.27-16.99) L 11/12/23 06:11 Hct 35.1 % (36-47) L 11/12/23 06:11 MCV 85.0 fl (85-98) 11/12/23 06:11 MCH 25.4 pg (27-33) L 11/12/23 06:11 MCHC 29.9 g/dL (30-55) L 11/12/23 06:11 RDW 15.8 % (12.1-15.1) H 11/12/23 06:11 Plt Count 279 10^3/cmm (157-399) D 11/12/23 06:11 MPV 10.5 fL (7.4-10.4) H 11/12/23 06:11 Neut % (Auto) 72.4 % 11/12/23 06:11 Lymph % (Auto) 19.0 % 11/12/23 06:11 Mineral % (Auto) 7.9 % 11/12/23 06:11 Eos % (Auto) 0.0 % 11/12/23 06:11 Baso % (Auto) 0.2 % 11/12/23 06:11 Neut # (Auto) 4.58 10^3/uL (1.8-7.7) 11/12/23 06:11 Lymph # (Auto) 1.2 10^3/uL (0.8-4.8) 11/12/23 06:11 Mineral # (Auto) 0.5 10^3/uL (0.2-0.9) 11/12/23 06:11 Eos # (Auto) 0.0 10^3/uL (0.0-0.8) 11/12/23 06:11 Baso # (Auto) 0.0 10^3/uL (0.0-0.1) 11/12/23 06:11 Nucleated RBC % (auto) 0 % 11/12/23 06:11 Nucleated RBCs # 0.0 /100WBC 11/12/23 06:11 D-Dimer Cancelled 11/11/23 15:40 Specimen Type Arterial 11/11/23 17:09 Sample Site Radial, left 11/11/23 17:09 ABG pH 7.52 (7.35-7.45) H 11/11/23 17:09 ABG pCO2 30.2 mmHg (35-45) L 11/11/23 17:09 ABG pO2 63.2 mmHg (80.0-100.0) L 11/11/23 17:09 ABG PO2/FiO2 Ratio 0 11/11/23 17:09 ABG HCO3 24.7 mmol/L (22-26) 11/11/23 17:09 ABG Base Excess 2.3 mmol/L (-2.0-2.0) H 11/11/23 17:09 Rene Test Pos 11/11/23 17:09 Hematocrit 35.3 % (37-47) L 11/11/23 17:09 Hgb O2 Saturation 92.5 % (95-100) L 11/11/23 17:09 Carboxyhemoglobin 2.9 %THgb (0.4-20.1) 11/11/23 17:09 Methemoglobin 0.4 % (0.4-1.5) 11/11/23 17:09 Total Hemoglobin 11.5 g/dL (12-16) L 11/11/23 17:09 O2 Delivery Device Nc 11/11/23 17:09 O2 Liters/Min 2.0 % 11/11/23 17:09 FiO2 28.0 % 11/11/23 17:09 Station Repairer ID glc 11/11/23 17:09 Sodium 142 mmol/L (136-145) 11/12/23 06:11 Potassium 3.3 mmol/L (3.5-5.1) L 11/12/23 06:11 Chloride 104 mmol/L (98-107) 11/12/23 06:11 Carbon Dioxide 27 mmol/L (22-29) 11/12/23 06:11 Anion Gap 14.3 (5-19) 11/12/23 06:11 BUN 33 mg/dL (8-23) H 11/12/23 06:11 Creatinine 1.8 mg/dL (0.5-0.9) H 11/12/23 06:11 GFR Calculation Not Reportable 11/12/23 06:11 Glucose 231 mg/dL (65-115) H 11/12/23 06:11 POC Glucose 239 mg/dL (70-110) H 11/12/23 06:16 Calculated Osmolality 309 mOsm/kg (285-295) H 11/12/23 06:11 Lactic Acid 3.1 mmol/L (0.5-2.2) H 11/11/23 15:40 Lactic Acid (Sepsis) 2.2 mmol/L (0.5-2.2) 11/11/23 17:50 Calcium 9.3 mg/dL (8.5-10.5) 11/12/23 06:11 Magnesium 2.4 mg/dL (1.7-2.3) H 11/12/23 06:11 Total Bilirubin 0.4 mg/dL (0.15-1.2) 11/11/23 15:40 AST 34 U/L (0-32) H 11/11/23 15:40 ALT 16 U/L (0-33) 11/11/23 15:40 Alkaline Phosphatase 169 U/L (35-105) H 11/11/23 15:40 NT-Pro-B Natriuret Pep > 05985 pg/mL (0-125) H 11/11/23 15:40 Total Protein 7.6 g/dL (6.6-8.7) 11/11/23 15:40 Albumin 3.8 g/dL (3.5-5.2) 11/11/23 15:40 Globulin 3.8 g/dL (1.3-4.6) 11/11/23 15:40 Procalcitonin 0.16 ng/mL (0-0.5) 11/11/23 15:40 Vitals Last Vital Signs Temp 97.9 F 11/12/23 04:10 Pulse 68 11/12/23 08:30 Resp 18 11/12/23 04:10 BP 163/70 11/12/23 04:10 Pulse Ox 100 11/12/23 08:30 O2 Del Method BiPAP 11/12/23 02:47 O2 Flow Rate 2 11/11/23 19:36 FiO2 28 11/12/23 08:30 Discharge Plan Discharge Patient Disposition: Home Condition: Stable Prescriptions: New potassium chloride 10 mEq tablet extended release 10 meq PO DAILY Qty: 20 0RF Continued Anoro Ellipta 62.5-25 mcg/actuation blister with device 1 inh INHALATION DAILY venlafaxine [Effexor XR] 150 mg capsule,extended release 24hr See Rx Instructions .ROUTE .COMPLEX Rx Instructions: TAKE 150 MG BY MOUTH AT BEDTIME ALONG WITH 75 MG Jardiance 10 mg tablet 10 mg PO DAILY apixaban 2.5 mg tablet 2.5 mg PO BID Qty: 180 2RF methimazole 5 mg tablet 5 mg PO DAILY Qty: 30 3RF (DME) Accu-Chek Ana M Plus test strp Strip See Rx Instructions .ROUTE .MEDSUPPLY Qty: 120 3RF Rx Instructions: check blood glucose four times a day tizanidine 4 mg tablet 4 mg PO BEDTIME nitroglycerin [Nitrostat] 0.4 mg Tablet, Sublingual 0.4 mg SUBLINGUAL Q5M PRN (Reason: Chest Pain) Rx Instructions: do not exceed 3 doses per episode insulin lispro [Humalog KwikPen Insulin] 100 unit/mL Insulin Pen See Rx Instructions .ROUTE .COMPLEX Rx Instructions: 10 UNITS TID DIRECTED albuterol sulfate [Ventolin HFA] 90 mcg/actuation Hfa Aerosol Inhaler 2 puff INHALATION QID PRN (Reason: Shortness Of Breath) calcitriol 0.25 mcg capsule See Rx Instructions .ROUTE .COMPLEX Rx Instructions: TAKE 0.25 mcg orally 3 TIMES WEEKLY ON WEDNESDAY, WEDNESDAY, AND WEDNESDAY IN THE MORNING. metoprolol succinate 50 mg tablet extended release 24 hr 50 mg PO DAILY Entresto 49-51 mg tablet 1 tab PO BID furosemide 40 mg tablet See Rx Instructions .ROUTE .COMPLEX Qty: 60 0RF Rx Instructions: TAKE 1 TABLET BY MOUTH EVERY MORNING AND ONE-HALF EVERY EVENING. clopidogrel [Plavix] 75 mg tablet 75 mg PO DAILY Qty: 60 0RF atorvastatin 40 mg tablet 40 mg PO BEDTIME venlafaxine 75 mg capsule,extended release 24hr See Rx Instructions .ROUTE .COMPLEX Rx Instructions: TAKE 75 MG BY MOUTH AT BEDTIME ALONG WITH 150 MG acitretin 10 mg capsule 10 mg PO QAM aspirin 81 mg Tablet,Delayed Release (Dr/Ec) 81 mg PO BEDTIME insulin glargine [Lantus Solostar U-100 Insulin] 100 unit/mL (3 mL) insulin pen See Rx Instructions .ROUTE .COMPLEX Rx Instructions: 20 unit subcutaneously daily as directed ergocalciferol (vitamin D2) [Vitamin D2] 1,250 mcg (50,000 unit) capsule 50,000 unit PO Q7D ferrous gluconate 324 mg (37.5 mg iron) Tablet 324 mg PO EVERY OTHER DAY Qty: 14 0RF acetaminophen 325 mg Tablet 650 mg PO QID PRN (Reason: pain/fever) bisacodyl [Dulcolax (bisacodyl)] 10 mg Suppository 10 mg MD DAILY PRN (Reason: Constipation) Discharge Orders: Discharge Order (Routine); Ordered 11/12/23 Ordered By: Smiley Hanson Referrals: Jocelyne Kirby PA [Primary Care Provider] - Discharge Diet: Cardiac Discharge Activity: Increase activity as tolerated Patient Instructions: Opioid Safety Activity Restrictions/Additional Instructions: Please use your oxygen 2 to 3 L 28/12 You are already watching your fluid and sodium intake which is very good, please keep in mind whenever you use Lasix you have to take potassium with it to avoid low potassium Your kidney function remained stable Discharge Attestations Time Spent in Discharge Care*: less than 30 min Status at Discharge: Cognitive status at discharge: cognitively intact , Behavioral status at discharge: cooperative , Quality Metrics Clinical Quality Measures [ No reported AMI, CVA or VTE this stay] Coding Level of Care Code Acute Code for Chg Fwd Diagnoses Hypertension, uncontrolled I10 Congestive heart failure I50.9 Stable angina I20.89 PAD (peripheral artery disease) I73.9 Hyperthyroidism E05.90 Community acquired pneumonia J18.9
[2023-11-12] MEDS: methIMAzole 5 MG Tablet PO (11:06)
[2023-11-12 11:28] LABS: Glucose Point of Care 230 mg/dL (70-110)
== END 2023-11-12 14:15 | disposition home or self-care (01) ==
LOC: ER 18:06 → MEDSURG 20:58
PROVIDERS: Admitting Provider Internal Medicine; Emergency Provider Emergency Medicine; PCP Physician Assistant; Visit Provider Internal Medicine
DX: I11.0 Hypertensive heart disease with heart failure (principal); I50.9 Heart failure, unspecified; I73.9 Peripheral vascular disease, unspecified; E05.90 Thyrotoxicosis, unspecified without thyrotoxic crisis or storm; J18.9 Pneumonia, unspecified organism; I48.91 Unspecified atrial fibrillation; Z79.01 Long term (current) use of anticoagulants; Z79.4 Long term (current) use of insulin; I25.110 Atherosclerotic heart disease of native coronary artery with unstable angina pectoris; I25.2 Old myocardial infarction; N18.9 Chronic kidney disease, unspecified; Z86.73 Personal history of transient ischemic attack (TIA), and cerebral infarction without residual deficits; F41.9 Anxiety disorder, unspecified; Z95.5 Presence of coronary angioplasty implant and graft; Z95.1 Presence of aortocoronary bypass graft; Z87.891 Personal history of nicotine dependence
CPT/HCPCS: 36415; 36416; 36600; 71045; 80048; 80053; 82805; 82962; 83605; 83735; 83880; 84145; 85025; 87040; 93005; 94640; 94660; 96365; 96372; 96375; 97161; 99285; G0378; J0360; J1815; J1940; J1956; J2919; J3490; J7613

== ENCOUNTER 2023-11-28 09:57 | Inpatient (IN) | payer MEDICARE, MEDICAID, SELFPAY ==
[2023-11-28] VITALS (40 sets, daily range): BP systolic 103–212; BP diastolic 43–122; PULSE 67–102; RESP 6–26; TEMP 36.6–37.2; O2SAT 93–100; BMI 26.6
--- NOTE | 2023-11-28 10:26 | XRR_ITS ---
PROCEDURE INFORMATION: Exam: XR Chest Exam date and time: 11/28/2023 10:30 AM Age: 73 years old Clinical indication: Shortness of breath; Additional info: SOB, suspect pulmonary edema TECHNIQUE: Imaging protocol: Radiologic exam of the chest. Views: 1 view. COMPARISON: CR (CHEST, ) 11/11/2023 4:14 PM FINDINGS: Lungs: Unremarkable. No consolidation. Pleural spaces: Unremarkable. No pleural effusion. No pneumothorax. Heart/Mediastinum: Unremarkable. No cardiomegaly. Bones/joints: Metallic sternotomy wires are present. Soft tissues: Comparison to prior chest examination similar findings seen XR/XR chest 1V portable [id number] IMPRESSION: 1. No acute findings. 2. Status post sternotomy
[2023-11-28 10:34] LABS: Basophils # 0.1 10^3/uL (0.0-0.1); Basophils % 0.5 %; Eosinophils # 0.2 10^3/uL (0.0-0.8); Eosinophils % 0.9 %; Lymphocytes # 7.4 10^3/uL (0.8-4.8); Lymphocytes % 36.9 %; Mean Corpuscular HGB Conc 29.2 g/dL (30-55); Mean Corpuscular Hemoglobin 25.2 pg (27-33); Mean Corpuscular Volume 86.4 fl (85-98); Mean Platelet Volume 10.4 fL (7.4-10.4); Monocytes # 0.9 10^3/uL (0.2-0.9); Monocytes % 4.4 %; Neutrophils # 11.35 10^3/uL (1.8-7.7); Neutrophils % 56.9 %; Nucleated Red Blood Cells % 0 %; Platelet Count 431 10^3/cmm (157-399); Red Blood Count 4.28 10^6/uL (3.85-5.65); Red Cell Distribution Width 15.3 % (12.1-15.1); White Blood Count 19.92 10^3/uL (3.29-11.43)
[2023-11-28 10:44] LABS: ABG PCO2 46.3 mmHg (35-45); ABG PH Result 7.25 (7.35-7.45); Base Excess ABG -7.1 mmol/L (-2.0-2.0); Blood Gas Allen Test Pos; Blood Gas Operator Identificat WALCI; Blood Gas Sample Site Radial, right; Blood Gas Sample Type Arterial; Carboxyhemoglobin 2.6 %THgb (0.4-20.1); Methemoglobin 0.2 % (0.4-1.5); Oxygen Device CONT NEB; PO2 ABG 94.9 mmHg (80.0-100.0); Total Hemoglobin 10.8 g/dL (12-16)
[2023-11-28] MEDS: FUROsemide 10 mg/mL SDV 10mL 60 MG IVP (10:50)
[2023-11-28] MEDS: nitroglycerin drip 50 MG/250 ML PREMIX IV (10:53)
[2023-11-28 10:55] LABS: Alanine Aminotransferase 9 U/L (0-33); Albumin Level 3.3 g/dL (3.5-5.2); Alkaline Phosphatase 150 U/L (35-105); Anion Gap 18.8 (5-19); Aspartate Amino Transferase 27 U/L (0-32); Blood Urea Nitrogen 29 mg/dL (8-23); Calcium 8.8 mg/dL (8.5-10.5); Carbon Dioxide 22 mmol/L (22-29); Chloride 102 mmol/L (98-107); Globulin 3.1 g/dL (1.3-4.6); Glucose 433 mg/dL (65-115); Osmolality Calculated 310 mOsm/kg (285-295); Potassium 4.8 mmol/L (3.5-5.1); Sodium 138 mmol/L (136-145); Total Bilirubin 0.3 mg/dL (0.15-1.2); Total Protein 6.4 g/dL (6.6-8.7)
--- NOTE | 2023-11-28 10:55 | ED_ITS ---
HPI - SOB/Dyspnea 2 General: Chief Complaint: Shortness of Breath/Dyspnea Stated Complaint: SOB Time Seen by Provider: 11/28/23 10:07 Source: patient and EMS Mode of arrival: EMS Limitations: physical limitation History of Present Illness: HPI Narrative: Patient arrives in respiratory distress. EMS have given DuoNeb and Decadron however patient appears to have high blood pressure and sound of light rales in lungs. I do not auscultate any wheezing at this time. Patient is minimally able to provide history due to her respiratory distress. I can gather that she was very short of breath. It really kicked up on her this morning. No fever. Related Data: Home oxygen amount: 2 liters Review of Systems 2 General: Reports: ROS unobtainable due to medical condition PFSH ED 2 PFSH: Medical History Anemia Ischemic cardiomyopathy Atherosclerotic heart disease of [place] coronary artery with other forms of angina pectoris CHF exacerbation Acute non-ST elevation myocardial infarction (NSTEMI) Pulmonary embolism Congestive heart failure Acute respiratory failure with hypoxia Acute exacerbation of CHF (congestive heart failure) Diabetes mellitus PAD (peripheral artery disease) Dyslipidemia HTN (hypertension) NSTEMI (non-ST elevated myocardial infarction) Eczema CAD (coronary artery disease) Clostridioides difficile infection (07/2022) Insomnia CHF (congestive heart failure) Chronic kidney disease Hypertensive urgency Pneumonia due to COVID-19 virus (~06/2022) Colon polyps History of skin cancer Hyperthyroidism Graves disease History of CVA (cerebrovascular accident) COPD (chronic obstructive pulmonary disease) Anxiety Carotid arterial disease ASHD (arteriosclerotic heart disease) Surgical History Status post insertion of iliac artery stent History of coronary artery stent placement History of cardiac catheterization 06/25/2022 Left main artery: Short, patent. Left circumflex artery: Has patent stents, no significant stenosis. LAD:Occluded in the midsegment. RCA: Known occluded. Not injected. SVG to diagonal artery and SVG to RCA are known occluded. Not injected. LOVETT to LAD: Patent. Coronary anatomy unchanged compared to before. History of renal stent Hx of local excision of skin lesion (09/16/20) Left forearm x2 Status post colonoscopy (09/16/20) S/P hysterectomy with oophorectomy S/P cholecystectomy S/P CABG (coronary artery bypass graft) twice, last in 2004 History of endovascular stent graft for abdominal aortic aneurysm (AAA) S/P cataract surgery S/P skin and subcutaneous tissue surgery Family History Sister Mark's disease Sister No problems noted. Mother No problems noted. Other Anesthesia complication Social History Smoking and tobacco/nicotine status: former use of tobacco/nicotine Alcohol intake: current Alcohol intake frequency: holidays/special occasions only Substance/Drug Use: current Physical Exam 2 Const: COMMON NORMALS: average body habitus, patient oriented x3, alert and well nourished GENERAL APPEARANCE: well kempt, well developed, in distress, disheveled and diaphoretic ORIENTATION/CONSCIOUSNESS: Yes awake, Yes oriented to person, Yes oriented to place and Yes oriented to time HENMT: COMMON NORMALS: normocephalic, atraumatic, external ears normal and moist oral mucous membranes HEAD & SCALP: normocephalic and atraumatic E XTERNAL EAR: Yes external ears normal Eye: COMMON NORMALS: Equal, round and reactive pupils present, EOMs intact bilaterally and conjunctivae normal CONJUNCTIVA: Yes conjunctivae normal P UPIL: Yes Equal, round and reactive pupils present Neck/C-Spine: COMMON NORMALS: full ROM, no lymphadenopathy and supple Chest: CHEST: Yes Symmetrical chest wall rise and No Surgical scars present (Chest) Resp: EFFORT & INSPECTION: Yes tachypneic, Yes respiratory distress, Yes pursed lip breathing, Yes labored, Yes grunting, Yes uses accessory muscles and Yes tripod positioning AUSCULTATION: rales (wet) bilateral and diffuse Cardio: COMMON NORMALS: regular rhythm, S1 normal heart sound present, S2 normal heart sound present, No gallops present (Cardio), No clicks present (Cardio), No murmurs present (Cardio) and No rub (Cardio) RATE: tachycardic RHYTHM: regular rhythm HEART SOUNDS: S1 normal heart sound present, S2 normal heart sound present and no murmurs PERIPHERAL PULSES: other (Radial pulses 2+ and symmetric) GI: COMMON NORMALS: Soft to palpation, non-tender and no masses INSPECTION: No abdominal distension PALPATION: Yes Soft to palpation, No Guarding due to palpation present (GI) and No Rebound tenderness present : COMMON NORMALS: Yes no CVA tenderness BLADDER/KIDNEY EXAM: Yes no CVA tenderness Back/Pelvis: COMMON NORMALS: no CVA tenderness Extremity: COMMON NORMALS: normal to inspection, full ROM, capillary refill normal and no clubbing, cyanosis or edema Neuro: COMMON NORMALS: patient oriented x3 SENSORIUM/ORIENTATION: Yes alert, Yes oriented to person, Yes oriented to place and Yes oriented to time Psych: APPEARANCE: Yes well kempt Skin: COMMON NORMALS: no rashes or lesions noted, no wounds, turgor normal and no jaundice GENERAL SKIN EXAM: no rashes or lesions noted and turgor normal Course 2 Reevaluation(s): Reevaluation #1: Patient on BiPAP and appears in less distress now. ABGs reviewed shows 7.25/46/95/20. Time: 10:59 Vital Signs: Vital signs: Vital Signs Temperature 98.9 F 11/28/23 16:15 Pulse Rate 98 11/28/23 20:30 Respiratory Rate 14 11/28/23 20:30 Blood Pressure 150/66 11/28/23 20:30 Pulse Oximetry 99 11/28/23 20:30 Oxygen Delivery Me thod Nasal Cannula 11/28/23 20:30 Oxygen Flow Rate 2 11/28/23 20:30 Fraction of Inspir ed Oxygen 30 11/28/23 16:24 MDM - SOB/Dyspnea Medical Decision Making Patient came in with acute pulmonary edema secondary to hypertensive emergency. She did not appear to be in a sympathetic crash response and so therapy with BiPAP and regular dose nitro was initiated along with Lasix. Patient had significant improvement in the ED and only nitro drip was able to hold pressure at 150 over 70s. Patient on the BiPAP is resting much easier and no longer appears in distress after this treatment and will be admitted to the ICU per Dr. Oliver. Personal review of her EKG initially showed some new ST depressions however the repeat ABG 2 hours later was much improved regarding this. EKG #2 was done at 1231 and reviewed at 1233 and the depressions had resolved still has sinus rhythm, no prolonged intervals with some LVH changes. X-ray of the chest personally reviewed and shows a pattern of diffuse pulmonary edema. Medical Records I reviewed the patient's medical records. Lab Data I reviewed the patient's lab results. 11/28/23 10:20 11/28/23 10:20 Labs/Radiology: Radiology Impressions Chest X-Ray 11/28/23 10:26 IMPRESSION: 1. No acute findings. 2. Status post sternotomy Laboratory Results WBC 19.92 10^3/uL (3.29-11.43) H 11/28/23 10:20 RBC 4.28 10^6/uL (3.85-5.65) 11/28/23 10:20 Hgb 10.80 g/dL (11.27-16.99) L 11/28/23 10:20 Hct 37.0 % (36-47) 11/28/23 10:20 MCV 86.4 fl (85-98) 11/28/23 10:20 MCH 25.2 pg (27-33) L 11/28/23 10:20 MCHC 29.2 g/dL (30-55) L 11/28/23 10:20 RDW 15.3 % (12.1-15.1) H 11/28/23 10:20 Plt Count 431 10^3/cmm (157-399) H 11/28/23 10:20 MPV 10.4 fL (7.4-10.4) 11/28/23 10:20 Neut % (Auto) 56.9 % 11/28/23 10:20 Lymph % (Auto) 36.9 % 11/28/23 10:20 [place] % (Auto) 4.4 % 11/28/23 10:20 Eos % (Auto) 0.9 % 11/28/23 10:20 Baso % (Auto) 0.5 % 11/28/23 10:20 Neut # (Auto) 11.35 10^3/uL (1.8-7.7) H 11/28/23 10:20 Lymph # (Auto) 7.4 10^3/uL (0.8-4.8) H 11/28/23 10:20 [place] # (Auto) 0.9 10^3/uL (0.2-0.9) 11/28/23 10:20 Eos # (Auto) 0.2 10^3/uL (0.0-0.8) 11/28/23 10:20 Baso # (Auto) 0.1 10^3/uL (0.0-0.1) 11/28/23 10:20 Nucleated RBC % (auto) 0 % 11/28/23 10:20 Nucleated RBCs # 0.0 /100WBC 11/28/23 10:20 Specimen Type Arterial 11/28/23 10:33 Sample Site Radial, right 11/28/23 10:33 ABG pH 7.25 (7.35-7.45) L 11/28/23 10:33 ABG pCO2 46.3 mmHg (35-45) H 11/28/23 10:33 ABG pO2 94.9 mmHg (80.0-100.0) 11/28/23 10:33 ABG HCO3 20.0 mmol/L (22-26) L 11/28/23 10:33 ABG Base Excess -7.1 mmol/L (-2.0-2.0) L 11/28/23 10:33 Rene Test Pos 11/28/23 10:33 Hematocrit 33.0 % (37-47) L 11/28/23 10:33 Hgb O2 Saturation 94.0 % (95-100) L 11/28/23 10:33 Carboxyhemoglobin 2.6 %THgb (0.4-20.1) 11/28/23 10:33 Methemoglobin 0.2 % (0.4-1.5) L 11/28/23 10:33 Total Hemoglobin 10.8 g/dL (12-16) L 11/28/23 10:33 O2 Delivery Device Cont neb 11/28/23 10:33 O2 Liters/Min 10.0 % 11/28/23 10:33 Carbon Setter ID [place] 11/28/23 10:33 Sodium 138 mmol/L (136-145) 11/28/23 10:20 Potassium 4.8 mmol/L (3.5-5.1) 11/28/23 10:20 Chloride 102 mmol/L (98-107) 11/28/23 10:20 Carbon Dioxide 22 mmol/L (22-29) 11/28/23 10:20 Anion Gap 18.8 (5-19) 11/28/23 10:20 BUN 29 mg/dL (8-23) H 11/28/23 10:20 Creatinine 2.0 mg/dL (0.5-0.9) H 11/28/23 10:20 GFR Calculation Not Reportable 11/28/23 10:20 Glucose 433 mg/dL (65-115) H 11/28/23 10:20 Calculated Osmolality 310 mOsm/kg (285-295) H 11/28/23 10:20 Calcium 8.8 mg/dL (8.5-10.5) 11/28/23 10:20 Total Bilirubin 0.3 mg/dL (0.15-1.2) 11/28/23 10:20 AST 27 U/L (0-32) 11/28/23 10:20 ALT 9 U/L (0-33) 11/28/23 10:20 Alkaline Phosphatase 150 U/L (35-105) H 11/28/23 10:20 Troponin T Baseline 85 ng/L (0-10) H 11/28/23 10:20 Troponin T 120 Minute 92.94 ng/L (0-10) H 11/28/23 12:20 Delta Troponin T 7.94 ABS# (0-10) 11/28/23 12:20 NT-Pro-B Natriuret Pep 98423 pg/mL (0-125) H 11/28/23 10:20 Total Protein 6.4 g/dL (6.6-8.7) L 11/28/23 10:20 Albumin 3.3 g/dL (3.5-5.2) L 11/28/23 10:20 Globulin 3.1 g/dL (1.3-4.6) 11/28/23 10:20 All radiology interpretation(s) finalized by discharge ED provider radiology interpretation(s): Bilateral pulmonary edema findings on x-ray EKG Data EKG 1: I personally reviewed and interpreted this EKG as follows: EKG Interpretation Date: 11/28/23 EKG interpretation time: 11:27 Prior EKG tracings: available for review Interpretation: Leftward axis, no prolonged intervals. Does show some depression in leads I, V3, V4 and V6 that was not present in the previous EKG. Critical Care Time 2 Critical Care Time: Critical Care Time: Yes Total Critical Care Time: 55 Attestation: Code care time consisting of bedside management, short order cook, discussion with nurse, discussion with patient, discussion with other physician as well as notation Discharge Plan Discharge Patient Disposition: Admitted As Inpatient Admit Provider: Jackie Oliver Clinical Impression: Acute and chronic respiratory failure with hypoxia, Hypertensive emergency, Acute on chronic diastolic (congestive) heart failure Condition: Stable Coding Level of Care Code ED Solid Waste Management Engineer for Kiran Holland
[2023-11-28 11:21] LABS: NT Pro B Type Natriuretic Pept 46513 pg/mL (0-125)
--- NOTE | 2023-11-28 11:30 | PC.NURSE ---
PATIENT FAMILY STATES PATIENT CALLED HER THIS MORNING AND COULD ONLY SAY COME, HELP . FAMILY CALLED THE AMBULANCE IMMEDIATELY. WHEN EMS AND FAMILY GOT THERE SHE WAS ON THE GROUND WITHOUT HER O2 BUT WAS CLOSE BY. FAMILY THINKS SHE MIGHT HAVE FALLEN. FAMILY STATES PATIENT HAS HX OF MANY FALLS.
[2023-11-28 11:52] LABS: Troponin(5th) Baseline 85 ng/L (0-10)
--- NOTE | 2023-11-28 12:31 | ECG_ITS ---
[facility] Test Date: 2023-11-28 Pat Name: Romi Yuan Department: Room: Gender: Female Hog Dropper: : 1950 Requested By: Joshua hCeney Order Number: [id number] Tessa MD: Rikki Stallworth M.D. Measurements Intervals [place] Rate: 90 P: 40 TN: 168 QRS: -16 QRSD: 113 T: 118 QT: 384 QTc: 472 Interpretive Statements SINUS RHYTHM WITH OCCASIONAL VENTRICULAR PREMATURE COMPLEXES LEFT VENTRICULAR HYPERTROPHY AND ST-T CHANGE [VOLTAGE CRITERIA PLUS ST/T ABNORMALITY] Compared to ECG 11/11/2023 16:05:33 Sinus tachycardia no longer present Intraventricular conduction delay no longer present ST (T wave) deviation still present Electronically Signed On 11-29-2023 14:49:16 CDT by Rikki Stallworth M.D. [email or web address]
[2023-11-28 12:53] LABS: Troponin 5 2HR 92.94 ng/L (0-10); Troponin 5 2HR Delta 7.94 ABS# (0-10)
[2023-11-28] MEDS: insulin regular-human 100 units/1 mL 10 UNIT IVP (13:10)
--- NOTE | 2023-11-28 15:00 | P.HP_ITS ---
Providers/Chief Complaint 2 Admitting Physician: Jackie Oliver MD Primary Care Provider: Jocelyne Kirby Chief Complaint: SOB History of Present Illness Romi Yuan is a 73 year old female past medical history of CKD, pneumonia, skin cancer, hypothyroidism, anemia, ischemic cardiopathy, NSTEMI, congestive heart failure, diabetes mellitus, peripheral arterial disease, hypertension, dyslipidemia, anxiety who has had recurrent admissions in the past and was recently discharged on 11 November. She was recently admitted for shortness of breath orthopnea PND. She was prescribed 2 L of oxygen which she uses on daily basis. She has quit smoking already. Watches her sodium and fluid intake. Is compliant with her medication. Previous admission she was admitted for CHF exacerbation and treated with IV Bumex. Send echo showed EF 45 to 50%. Today patient presents back to the hospital for complaint of shortness of breath. EMS gave patient DuoNeb and dexamethasone. On arrival her blood pressure was 200 systolic range and did have rales on lungs. On arrival blood pressure 212/122, respiratory 23, pulse 95, temperature 97.9. Patient was placed on BiPAP. Also given 60 IV Lasix x 1. Admitted to ICU at this time. Nitro drip was started. Medications/Allergies Home Medications Medication Instructions Recorded Confirmed Last Taken Type umeclidinium 62.5 mcg-vilanterol 1 inh inhalation DAILY 07/20/19 11/12/23 09/11/23 History 25 mcg/actuation powdr for inhalation (Anoro Ellipta) venlafaxine 150 mg See Rx Instructions .Route .COMPLEX 07/20/19 11/12/23 09/10/23 History capsule,extended release 24 hr (Effexor XR) methimazole 5 mg tablet 5 mg PO DAILY #30 tabs 03/11/20 11/12/23 09/11/23 Rx blood sugar diagnostic (Accu-Chek #120 ea 06/23/21 11/12/23 Unknown Rx Ana M Plus test strips) clopidogrel 75 mg tablet (Plavix) 75 mg PO DAILY #60 tabs 06/15/22 11/12/23 09/11/23 Rx acitretin 10 mg capsule 10 mg PO QAM 06/19/22 11/12/23 06/16/23 History atorvastatin 40 mg tablet 40 mg PO BEDTIME 06/19/22 11/12/23 09/10/23 History venlafaxine 75 mg capsule,extended See Rx Instructions .Route .COMPLEX 06/19/22 11/12/23 09/10/23 History release 24 hr albuterol sulfate 90 mcg/actuation 2 puff inhalation QID PRN 07/09/22 11/12/23 09/11/23 History aerosol inhaler (Ventolin HFA) Shortness Of Breath insulin lispro 100 unit/mL See Rx Instructions .Route .COMPLEX 07/09/22 11/12/23 09/11/23 History subcutaneous pen (Humalog KwikPen (U-100) Insulin) nitroglycerin 0.4 mg sublingual 0.4 mg sublingual Q5M PRN Chest 07/09/22 11/12/23 02/26/23 History tablet (Nitrostat) Pain tizanidine 4 mg tablet 4 mg PO BEDTIME 07/09/22 11/12/23 09/10/23 History empagliflozin 10 mg tablet 10 mg PO DAILY 09/07/22 11/12/23 09/11/23 History (Jardiance) apixaban 2.5 mg tablet 2.5 mg PO BID #180 tabs 05/19/23 11/12/23 09/11/23 Rx calcitriol 0.25 mcg capsule See Rx Instructions .Route .COMPLEX 06/17/23 11/12/23 06/16/23 History aspirin 81 mg tablet,delayed 81 mg PO BEDTIME 09/03/23 11/12/23 09/10/23 History release ergocalciferol (vitamin D2) 1,250 50,000 unit PO Q7D 09/03/23 11/12/23 09/08/23 History mcg (50,000 unit) capsule (Vitamin D2) insulin glargine 100 unit/mL (3 See Rx Instructions .Route .COMPLEX 09/03/23 11/12/23 09/10/23 History mL) subcutaneous pen (Lantus Solostar U-100 Insulin) ferrous gluconate 324 mg (37.5 mg 324 mg PO EVERY OTHER DAY #14 tabs 09/10/23 11/12/23 Unknown Rx iron) tablet acetaminophen 325 mg tablet 650 mg PO QID PRN pain/fever 09/11/23 11/12/23 Unknown History bisacodyl 10 mg rectal suppository 10 mg MI DAILY PRN Constipation 09/11/23 11/12/23 Unknown History (Dulcolax (bisacodyl)) furosemide 40 mg tablet See Rx Instructions .Route 11/12/23 Unknown Rx .COMPLEX #60 tabs metoprolol succinate 50 mg 50 mg PO DAILY 11/12/23 11/12/23 Unknown History tablet,extended release 24 hr potassium chloride 10 mEq 10 meq PO DAILY #20 tabs 11/12/23 Unknown Rx tablet,extended release sacubitril 49 mg-valsartan 51 mg 1 tab PO BID 11/12/23 11/12/23 Unknown History tablet (Entresto) Allergies Allergy/AdvReac Type Severity Reaction Status Date / Time cefuroxime [From Ceftin] Allergy ALGY-Rash Verified 11/11/23 16:11 cephalexin [From Keflex] Allergy ALGY-Rash Verified 11/11/23 16:11 hydroxyzine [From Vistaril] Allergy ALGY-Anaphy Verified 11/11/23 16:11 laxis Penicillins Allergy ALGY-Redness Verified 11/11/23 16:11 of Skin prochlorperazine Allergy ALGY-Anaphy Verified 11/11/23 16:11 [From Compazine] laxis promethazine [From Phenergan] Allergy ALGY-Anaphy Verified 11/11/23 16:11 laxis venom-honey bee Allergy ALGY-Anaphy Verified 11/11/23 16:11 laxis simvastatin [From Zocor] AdvReac ADR-Heartbu Verified 11/11/23 16:11 rn PFSH Acute 2 PFSH: Medical History Anemia Ischemic cardiomyopathy Atherosclerotic heart disease of [place] coronary artery with other forms of angina pectoris CHF exacerbation Acute non-ST elevation myocardial infarction (NSTEMI) Pulmonary embolism Congestive heart failure Acute respiratory failure with hypoxia Acute exacerbation of CHF (congestive heart failure) Diabetes mellitus PAD (peripheral artery disease) Dyslipidemia HTN (hypertension) NSTEMI (non-ST elevated myocardial infarction) Eczema CAD (coronary artery disease) Clostridioides difficile infection (07/2022) Insomnia CHF (congestive heart failure) Chronic kidney disease Hypertensive urgency Pneumonia due to COVID-19 virus (~06/2022) Colon polyps History of skin cancer Hyperthyroidism Graves disease History of CVA (cerebrovascular accident) COPD (chronic obstructive pulmonary disease) Anxiety Carotid arterial disease ASHD (arteriosclerotic heart disease) Surgical History Status post insertion of iliac artery stent History of coronary artery stent placement History of cardiac catheterization 06/25/2022 Left main artery: Short, patent. Left circumflex artery: Has patent stents, no significant stenosis. LAD:Occluded in the midsegment. RCA: Known occluded. Not injected. SVG to diagonal artery and SVG to RCA are known occluded. Not injected. LOVETT to LAD: Patent. Coronary anatomy unchanged compared to before. History of renal stent Hx of local excision of skin lesion (09/16/20) Left forearm x2 Status post colonoscopy (09/16/20) S/P hysterectomy with oophorectomy S/P cholecystectomy S/P CABG (coronary artery bypass graft) twice, last in 2004 History of endovascular stent graft for abdominal aortic aneurysm (AAA) S/P cataract surgery S/P skin and subcutaneous tissue surgery Family History Sister Mark's disease Sister No problems noted. Mother No problems noted. Other Anesthesia complication Social History Smoking and tobacco/nicotine status: former use of tobacco/nicotine Alcohol intake: current Alcohol intake frequency: holidays/special occasions only Substance/Drug Use: current Vitals/I&O/Wt Last Vital Signs Temp 97.9 F 11/28/23 14:08 Pulse 80 11/28/23 14:45 Resp 13 11/28/23 14:45 BP 144/68 11/28/23 14:45 Pulse Ox 99 11/28/23 14:45 O2 Del Method BiPAP 11/28/23 14:00 FiO2 40 11/28/23 12:57 11/28/23 11/28/23 11/28/23 06:59 14:59 22:59 Output Total 650 / 650 Balance -650 / -650 Weight last 48 hrs Weight 62 kg Weight 58.967 kg Physical Exam 2 Narrative: Appears fluid overloaded Currently on 2 L Hemodynamically stable Pleasant cooperative Abdomen soft Mild crackles bilaterally at bases Currently on BiPAP Urinary Catheter Management: Munson: Cath Placed During This Visit: yes Urinary Catheter Date of Insertion: 11/28/23 Urinary Catheter Time of Insertion: 11:11 Data 11/28/23 10:20 11/28/23 10:20 A&P Assessment and plan (1) Hypertensive emergency: (2) Troponin level elevated: (3) Dyslipidemia: (4) Acute exacerbation of chronic obstructive airways disease: (5) Acute exacerbation of CHF (congestive heart failure): (6) Anxiety: (7) CHF (congestive heart failure): (8) Chronic kidney disease: Qualifiers: Chronic kidney disease stage: stage 3 (moderate) Chronic kidney disease stage 3 subtype: stage 3a (GFR 45-59) Qualified Code(s): N18.31 - Chronic kidney disease, stage 3a (9) Diabetes mellitus: (10) Hyperthyroidism: Plan #Hypertensive urgency #Flash pulmonary edema #Acute on chronic systolic congestive heart failure EF 45 to 50% #Diabetes mellitus type 2 #COPD #CKD #Peripheral arterial disease #CAD, ischemic cardiomyopathy #Anxiety #History of NSTEMI ? Patient currently on nitro drip. Will wean down. Not to lower blood pressure more than 25% in for 6 hours. ? Do accurate med rec for the patient. ? Continue Plavix Entresto, metoprolol succinate, venlafaxine ? Continue Eliquis ? Continue aspirin ? Follow troponin series. EKG did not show any acute ischemic changes ? ABG initially showed pH 7.25/46. Will repeat a gas in few hours. Continue BiPAP for now. ? Continue Lantus 17 units nightly, moderate dose intensity sliding scale insulin ? Check chest x-ray in AM. ? I will not repeat echo since there was one done recently. ? Will need to diurese. Placed on Lasix 40 IV twice daily ? Check BMP daily monitor electrolytes replete as needed. Keep magnesium above 2 and potassium above 4. ? Patient on the methimazole at home 5 mg daily. Will check TSH. Full code DVT prophylaxis: Patient is on Eliquis. Attestations 2 Medical Necessity Statement*: Greater than 2 midnight stay for management of hypertensive urgency. Diagnoses Hypertensive emergency I16.1 Troponin level elevated R79.89 Dyslipidemia E78.5 Acute exacerbation of chronic obstructive airways disease J44.1 Acute exacerbation of CHF (congestive heart failure) I50.9 Anxiety F41.9 CHF (congestive heart failure) I50.9 Stage 3a chronic kidney disease N18.31 Chronic kidney disease stage: stage 3 (moderate) Chronic kidney disease stage 3 subtype: stage 3a (GFR 45-59) Diabetes mellitus E11.9 Hyperthyroidism E05.90
[2023-11-28] MEDS: ipratropium-albuterol 3 mL Neb INHALATION ×2 (16:24→20:03)
[2023-11-28] MEDS: apixaban 5 mg Tablet 2.5 MG PO (17:01)
[2023-11-28] MEDS: sacubitril/valsartan 24-26 mg Tablet 2 EACH PO (17:01)
[2023-11-28 17:05] LABS: ABG PCO2 36.3 mmHg (35-45); ABG PH Result 7.41 (7.35-7.45); Alveolar-Arterial Oxygen Gradi 4.8 mmHg (5-10); Base Excess ABG -1.5 mmol/L (-2.0-2.0); Blood Gas Allen Test Pos; Blood Gas Operator Identificat BROMA; Blood Gas Sample Site Radial, right; Blood Gas Sample Type Arterial; Carboxyhemoglobin 1.4 %THgb (0.4-20.1); HCO3 ABG 22.9 mmol/L (22-26); HGB O2 Sat 97.9 % (95-100); Ionized Calcium Level - ABG 1.2 mmol/L (1.1-1.4); Methemoglobin 0.5 % (0.4-1.5); Oxygen Device BIPAP; Oxygen Saturation ABG 99.7; PO2 FiO2 Ratio Arterial Blood 0; Potassium Level - ABG 3.9 mmol/L (3.5-5.0); Total Hemoglobin 10.1 g/dL (12-16)
--- NOTE | 2023-11-28 17:20 | PC.RESP ---
pt had initial ekg ordered for 1025. however, ekg was missed in er. 2nd ekg was performed on time. first ekg cancelled
[2023-11-28] MEDS: insulin lispro 100 unit/1 mL SUBCUT ×2 (17:30→20:35)
--- NOTE | 2023-11-28 17:33 | ECG_ITS ---
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 Measurements Intervals [place] Rate: 93 P: 28 DC: 166 QRS: -26 QRSD: 114 T: 127 QT: 376 QTc: 468 Interpretive Statements SINUS RHYTHM BORDERLINE LEFT AXIS DEVIATION [QRS AXIS < -20] LEFT VENTRICULAR HYPERTROPHY AND ST-T CHANGE [VOLTAGE CRITERIA PLUS ST/T ABNORMALITY] Compared to ECG 11/28/2023 12:31:27 Ventricular premature complex(es) no longer present ST (T wave) deviation still present Electronically Signed On 11-29-2023 14:50:08 CDT by Rikki Stallworth M.D. [id number]
[2023-11-28 19:39] LABS: Troponin 5 6HR 95.65 ng/L (0-10); Troponin 5 6HR Delta 10.65 ng/L (0-12)
[2023-11-28] MEDS: tizanidine 4 mg Tablet PO (20:33)
[2023-11-28] MEDS: venlafaxine ER (24HR) 150 mg Capsule PO (20:33)
[2023-11-28] MEDS: atorvastatin 40 mg Tablet PO (20:33)
[2023-11-28] MEDS: aspirin 81 mg EC Tablet PO (20:33)
[2023-11-28] MEDS: venlafaxine ER (24HR) 75 mg Capsule PO (20:33)
[2023-11-28] MEDS: FUROsemide 10 mg/mL SDV 4mL 40 MG IVP (20:36)
[2023-11-29] VITALS (40 sets, daily range): BP systolic 109–182; BP diastolic 48–97; PULSE 0–96; RESP 12–33; TEMP 36.4–36.8; O2SAT 94–100
[2023-11-29 05:11] LABS: Glucose Point of Care 173 mg/dL (70-110)
[2023-11-29 05:11] LABS: Glucose Point of Care 213 mg/dL (70-110)
[2023-11-29 05:52] LABS: Alanine Aminotransferase 16 U/L (0-33); Albumin Level 2.8 g/dL (3.5-5.2); Alkaline Phosphatase 121 U/L (35-105); Blood Urea Nitrogen 31 mg/dL (8-23); Calcium 8.8 mg/dL (8.5-10.5); Carbon Dioxide 24 mmol/L (22-29); Chloride 106 mmol/L (98-107); Creatinine Clr Calc Pharmacy 21.6893; Globulin 2.8 g/dL (1.3-4.6); Glucose 113 mg/dL (65-115); Magnesium 2.2 mg/dL (1.7-2.3); Osmolality Calculated 301 mOsm/kg (285-295); Sodium 142 mmol/L (136-145); Total Bilirubin 0.3 mg/dL (0.15-1.2); Total Protein 5.6 g/dL (6.6-8.7)
[2023-11-29 05:53] LABS: Anion Gap 16.2 (5-19); Potassium 4.2 mmol/L (3.5-5.1)
[2023-11-29 05:54] LABS: Aspartate Amino Transferase 26 U/L (0-32)
[2023-11-29] MEDS: ipratropium-albuterol 3 mL Neb INHALATION ×4 (07:49→19:32)
[2023-11-29 08:17] LABS: Glucose Point of Care 124 mg/dL (70-110)
[2023-11-29] MEDS: apixaban 5 mg Tablet 2.5 MG PO ×2 (08:36→17:34)
[2023-11-29] MEDS: clopidogrel 75 mg Tablet PO (08:36)
[2023-11-29] MEDS: methIMAzole 5 MG Tablet PO (08:37)
[2023-11-29] MEDS: FUROsemide 10 mg/mL SDV 4mL 40 MG IVP ×2 (08:37→19:46)
[2023-11-29] MEDS: metoprolol succinate ER (24 HR) 50 mg Tablet PO (08:37)
[2023-11-29] MEDS: insulin glargine 100 units/1 mL 17 UNIT SUBCUT (08:40)
[2023-11-29] MEDS: sacubitril/valsartan 24-26 mg Tablet 2 EACH PO ×2 (08:43→17:34)
[2023-11-29] MEDS: calcitriol 0.25 mcg Capsule PEG-TUBE (08:46)
[2023-11-29 10:53] LABS: Basophils % 0.1 %; Eosinophils # 0.1 10^3/uL (0.0-0.8); Eosinophils % 0.8 %; Hematocrit 29.6 % (36-47); Lymphocytes # 1.8 10^3/uL (0.8-4.8); Lymphocytes % 23.9 %; Mean Corpuscular HGB Conc 29.7 g/dL (30-55); Mean Corpuscular Hemoglobin 24.9 pg (27-33); Mean Corpuscular Volume 83.6 fl (85-98); Mean Platelet Volume 11.3 fL (7.4-10.4); Monocytes # 0.5 10^3/uL (0.2-0.9); Monocytes % 6.1 %; Neutrophils # 5.17 10^3/uL (1.8-7.7); Neutrophils % 68.8 %; Nucleated Red Blood Cells % 0 %; Platelet Count 248 10^3/cmm (157-399); Red Blood Count 3.54 10^6/uL (3.85-5.65); Red Cell Distribution Width 15.2 % (12.1-15.1); White Blood Count 7.52 10^3/uL (3.29-11.43)
[2023-11-29 12:18] LABS: Glucose Point of Care 208 mg/dL (70-110)
[2023-11-29] MEDS: insulin lispro 100 unit/1 mL SUBCUT (12:30)
[2023-11-29] MEDS: isosorbide mononitrate ER 30 mg Tablet PO (13:59)
--- NOTE | 2023-11-29 16:59 | P.PN_ITS ---
Subjective 2 Subjective: Hospital course, labs appreciated. Examination of day on room air. Off nitro drip. States feeling a lot better. Blood pressure is better controlled. Denies any nausea vomiting, headache, chest pain. Vitals/I&O/Wt Last Vital Signs Temp 98.2 F 11/29/23 12:33 Pulse 82 11/29/23 16:00 Resp 18 11/29/23 16:00 BP 161/81 11/29/23 16:00 Pulse Ox 97 11/29/23 16:00 O2 Del Method Room Air 11/29/23 16:00 O2 Flow Rate 2 11/29/23 04:00 FiO2 30 11/28/23 16:24 11/29/23 11/29/23 11/29/23 06:59 14:59 22:59 Intake Total 360 / 360 Output Total 950 / 1600 650 / 650 Balance -950 / -1289.375 -290 / -290 Weight last 48 hrs Weight 59.874 kg Weight 62 kg Weight 58.967 kg Physical Exam 2 Narrative: General: No acute distress, AO x3 HEENT: PERRLA, pupils bilaterally equal and reactive Chest: Bilateral bronchial breath sounds all over lung manning with occasional rhonchi and coarse crackles, fine crackles present in bilateral lower zone CVS: S1-S2 regular, soft pansystolic murmur present in apex radiating to the anterior axillary line 2/6, no tachycardia, no gallops, no rubs Abdomen: Soft, nontender, no organomegaly, bowel sounds present Neuro: No focal deficits, no facial deformity, AO x3, power 5/5 in all limbs Urinary Catheter Management: Munson: Cath Placed During This Visit: yes Urinary Catheter Date of Insertion: 11/28/23 Urinary Catheter Time of Insertion: 11:11 Data 11/29/23 05:22 11/29/23 05:22 Micro: Microbiology 11/29/23 06:16 Gram Stain - Final Sputum - Expectorated Sputum A&P Assessment and plan (1) Hypertensive emergency: Goal blood pressure less than 140/90 mmHg. Hypertensive urgency on admission. Nitro drip has been discontinued. Continue with home dose of metoprolol, Entresto. Add Imdur 30 mg daily. Will uptitrate as for goal blood pressures. (2) Troponin level elevated: History of CAD post CABG in past. Last angiogram in June 2023. Found to have patent graft. Decision to medical management. Continue with home dose of aspirin, Eliquis, statin, beta-lexy. Add Imdur as above. (3) Acute exacerbation of CHF (congestive heart failure): Currently euvolemic. Last echocardiogram showed an EF of 45 to 50% with moderate MR, mild MS. Continue with Lasix 40 mg twice daily IV for now. Fluid restriction up to 1500 cc. Monitor renal functions. (4) Chronic kidney disease: Baseline creatinine 1.7-2.1. Currently creatinine at baseline. Continue to monitor renal functions and electrolytes daily for now. Qualifiers: Chronic kidney disease stage: stage 3 (moderate) Chronic kidney disease stage 3 subtype: stage 3a (GFR 45-59) Qualified Code(s): N18.31 - Chronic kidney disease, stage 3a (5) Dyslipidemia: (6) Acute exacerbation of chronic obstructive airways disease: (7) Anxiety: (8) CHF (congestive heart failure): (9) Diabetes mellitus: (10) Hyperthyroidism: Plan Continue other chronic medications. Full code Cardiac carb consistent diet Fluid restriction up to 1500 cc Protonix OPD prophylaxis Eliquis will be sufficient for DVT prophylaxis Transfer to CSU. Attestations 2 Medical Necessity Statement*: Requires further hospitalization for management of congestive heart failure in setting of hypertensive urgency while outpatient medications are adjusted Diagnoses Hypertensive emergency I16.1 Troponin level elevated R79.89 Acute exacerbation of CHF (congestive heart failure) I50.9 Stage 3a chronic kidney disease N18.31 Chronic kidney disease stage: stage 3 (moderate) Chronic kidney disease stage 3 subtype: stage 3a (GFR 45-59) Dyslipidemia E78.5 Acute exacerbation of chronic obstructive airways disease J44.1 Anxiety F41.9 CHF (congestive heart failure) I50.9 Diabetes mellitus E11.9 Hyperthyroidism E05.90
[2023-11-29 17:11] LABS: Glucose Point of Care 88 mg/dL (70-110)
[2023-11-29 17:11] LABS: Glucose Point of Care 128 mg/dL (70-110)
--- NOTE | 2023-11-29 17:13 | ECG_ITS ---
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 Measurements Intervals [place] Rate: 86 P: 36 PA: 161 QRS: -34 QRSD: 114 T: 115 QT: 386 QTc: 463 Interpretive Statements SINUS RHYTHM LEFT AXIS DEVIATION [QRS AXIS < -30] LEFT VENTRICULAR HYPERTROPHY AND ST-T CHANGE [VOLTAGE CRITERIA PLUS ST/T ABNORMALITY] Compared to ECG 11/28/2023 17:22:31 No significant changes Electronically Signed On 11-30-2023 23:51:21 CDT by Ledy Pelayo M.D. [id number]
[2023-11-29] MEDS: aspirin 81 mg EC Tablet PO (21:00)
[2023-11-29] MEDS: venlafaxine ER (24HR) 75 mg Capsule PO (21:00)
[2023-11-29] MEDS: atorvastatin 40 mg Tablet PO (21:00)
[2023-11-29] MEDS: tizanidine 4 mg Tablet PO (21:01)
[2023-11-29] MEDS: venlafaxine ER (24HR) 150 mg Capsule PO (21:01)
[2023-11-29 21:06] LABS: Glucose Point of Care 102 mg/dL (70-110)
--- NOTE | 2023-11-29 21:15 | PC.NURSE ---
Report given to Kailyn on [facility] [place]. All evening medications given in ICU. Patient transferred up at 2110 with all vitals stable. Receiving nurse at bedside.
[2023-11-30] VITALS (8 sets, daily range): BP systolic 116–147; BP diastolic 59–74; PULSE 70–86; RESP 17–19; TEMP 36.4–36.9; O2SAT 93–100
[2023-11-30 06:05] LABS: Alanine Aminotransferase 15 U/L (0-33); Albumin Level 2.9 g/dL (3.5-5.2); Alkaline Phosphatase 109 U/L (35-105); Blood Urea Nitrogen 36 mg/dL (8-23); Calcium 8.9 mg/dL (8.5-10.5); Carbon Dioxide 25 mmol/L (22-29); Chloride 105 mmol/L (98-107); Glucose 90 mg/dL (65-115); Osmolality Calculated 300 mOsm/kg (285-295); Sodium 141 mmol/L (136-145); Total Bilirubin 0.2 mg/dL (0.15-1.2); Total Protein 5.9 g/dL (6.6-8.7)
[2023-11-30 06:07] LABS: Anion Gap 15.9 (5-19); Aspartate Amino Transferase 25 U/L (0-32); Potassium 4.9 mmol/L (3.5-5.1)
[2023-11-30 06:41] LABS: Glucose Point of Care 101 mg/dL (70-110)
[2023-11-30] MEDS: ipratropium-albuterol 3 mL Neb INHALATION (07:10)
[2023-11-30] MEDS: FUROsemide 10 mg/mL SDV 4mL 40 MG IVP (09:15)
[2023-11-30] MEDS: sacubitril/valsartan 24-26 mg Tablet 2 EACH PO (09:15)
[2023-11-30] MEDS: apixaban 5 mg Tablet 2.5 MG PO (09:17)
[2023-11-30] MEDS: ferrous gluconate 324 mg Tablet PO (09:17)
[2023-11-30] MEDS: isosorbide mononitrate ER 30 mg Tablet PO (09:17)
[2023-11-30] MEDS: methIMAzole 5 MG Tablet PO (09:18)
[2023-11-30] MEDS: pantoprazole DR 40 mg Tablet PO (09:18)
[2023-11-30] MEDS: metoprolol succinate ER (24 HR) 50 mg Tablet PO (09:18)
[2023-11-30] MEDS: clopidogrel 75 mg Tablet PO (09:18)
[2023-11-30 10:17] LABS: Basophils % 0.5 %; Eosinophils # 0.2 10^3/uL (0.0-0.8); Eosinophils % 3.5 %; Hematocrit 30.4 % (36-47); Lymphocytes # 1.6 10^3/uL (0.8-4.8); Lymphocytes % 24.2 %; Mean Corpuscular HGB Conc 30.3 g/dL (30-55); Mean Corpuscular Hemoglobin 25.1 pg (27-33); Mean Corpuscular Volume 82.8 fl (85-98); Mean Platelet Volume 10.7 fL (7.4-10.4); Monocytes # 0.3 10^3/uL (0.2-0.9); Monocytes % 5.1 %; Neutrophils # 4.44 10^3/uL (1.8-7.7); Neutrophils % 66.5 %; Nucleated Red Blood Cells % 0 %; Platelet Count 270 10^3/cmm (157-399); Red Blood Count 3.67 10^6/uL (3.85-5.65); Red Cell Distribution Width 15.1 % (12.1-15.1); White Blood Count 6.66 10^3/uL (3.29-11.43)
--- NOTE | 2023-11-30 10:53 | PC.NURSE ---
This RN has reviewed JENNIFER Ramon nurse residence charting and agrees with all documentation.
[2023-11-30 11:19] LABS: Glucose Point of Care 269 mg/dL (70-110)
--- NOTE | 2023-11-30 11:31 | P.DS_ITS ---
Discharge Providers Date of Admission: 11/28/23 13:25 Date of Discharge: November 30, 2023 Attending Provider at Admission: Jackie Oliver MD Attending Provider at Discharge: Moe Butler MD Primary Care Provider: Jocelyne Kirby Diagnoses at Discharge Discharge Diagnosis (1) Hypertensive emergency: Status: Acute (2) Troponin level elevated: Status: Acute (3) Acute exacerbation of CHF (congestive heart failure): Status: Inactive (4) Chronic kidney disease: Status: Inactive Qualifiers: Chronic kidney disease stage: stage 3 (moderate) Chronic kidney disease stage 3 subtype: stage 3a (GFR 45-59) Qualified Code(s): N18.31 - Chronic kidney disease, stage 3a (5) Dyslipidemia: Status: Acute (6) Acute exacerbation of chronic obstructive airways disease: Status: Acute (7) Anxiety: Status: Inactive (8) CHF (congestive heart failure): Status: Inactive (9) Diabetes mellitus: Status: Inactive (10) Hyperthyroidism: Status: Inactive Reason for Visit Reason for Visit: SOB Brief History: History as per HPI: Romi Yuan is a 73 year old female past medical history of CKD, pneumonia, skin cancer, hypothyroidism, anemia, ischemic cardiopathy, NSTEMI, congestive heart failure, diabetes mellitus, peripheral arterial disease, hypertension, dyslipidemia, anxiety who has had recurrent admissions in the past and was recently discharged on 11 November. She was recently admitted for shortness of breath orthopnea PND. She was prescribed 2 L of oxygen which she uses on daily basis. She has quit smoking already. Watches her sodium and fluid intake. Is compliant with her medication. Previous admission she was admitted for CHF exacerbation and treated with IV Bumex. Send echo showed EF 45 to 50%. Today patient presents back to the hospital for complaint of shortness of breath. EMS gave patient DuoNeb and dexamethasone. On arrival her blood pressure was 200 systolic range and did have rales on lungs. On arrival blood pressure 212/122, respiratory 23, pulse 95, temperature 97.9. Patient was placed on BiPAP. Also given 60 IV Lasix x 1. Admitted to ICU at this time. Nitro drip was started. Hospital Course Hospital Course Patient was admitted to the hospital for evaluation and management of congestive heart failure in setting of hypertensive urgency. She was started on nitro drip along with IV diuretics. She responded well to the treatment and has been on room air for last 36 hours. Her antihypertensive during hospitalization was adj usted. She is been discharged in medically stable condition with adjusted antihypertensive advised to follow-up with primary care provider within next 1 week. She was counseled in detail about lifestyle modification with congestive heart failure. Physical Exam Narrative: General: No acute distress, AO x3 HEENT: PERRLA, pupils bilaterally equal and reactive Chest: Bilateral bronchial breath sounds all over lung manning with occasional rhonchi and coarse crackles, fine crackles present in bilateral lower zone CVS: S1-S2 regular, soft pansystolic murmur present in apex radiating to the anterior axillary line 2/6, no tachycardia, no gallops, no rubs Abdomen: Soft, nontender, no organomegaly, bowel sounds present Neuro: No focal deficits, no facial deformity, AO x3, power 5/5 in all limbs Urinary Catheter Management: Munson: Cath Placed During This Visit: yes Urinary Catheter Date of Insertion: 11/28/23 Urinary Catheter Time of Insertion: 11:11 Discharge Data Studies Completed and Pending Completed Studies During Hospitalization Category Date Time Status XR chest 1V portable [id number] Stat Exams 11/28/23 10:26 Completed Pending at discharge Category Date Time Status Complete Blood Count w/Auto DAILY Lab 12/01/23 10:00 Ordered Comprehensive Metabolic Panel AM LABS Lab 12/01/23 04:00 Ordered Sputum Culture and Gram Stain Stat Lab 11/29/23 06:16 Results Radiology Impressions Chest X-Ray 11/28/23 10:26 IMPRESSION: 1. No acute findings. 2. Status post sternotomy Laboratory Results WBC 6.66 10^3/uL (3.29-11.43) 11/30/23 10:06 RBC 3.67 10^6/uL (3.85-5.65) L 11/30/23 10:06 Hgb 9.20 g/dL (11.27-16.99) L 11/30/23 10:06 Hct 30.4 % (36-47) L 11/30/23 10:06 MCV 82.8 fl (85-98) L 11/30/23 10:06 MCH 25.1 pg (27-33) L 11/30/23 10:06 MCHC 30.3 g/dL (30-55) 11/30/23 10:06 RDW 15.1 % (12.1-15.1) 11/30/23 10:06 Plt Count 270 10^3/cmm (157-399) 11/30/23 10:06 MPV 10.7 fL (7.4-10.4) H 11/30/23 10:06 Neut % (Auto) 66.5 % 11/30/23 10:06 Lymph % (Auto) 24.2 % 11/30/23 10:06 [place] % (Auto) 5.1 % 11/30/23 10:06 Eos % (Auto) 3.5 % 11/30/23 10:06 Baso % (Auto) 0.5 % 11/30/23 10:06 Neut # (Auto) 4.44 10^3/uL (1.8-7.7) 11/30/23 10:06 Lymph # (Auto) 1.6 10^3/uL (0.8-4.8) 11/30/23 10:06 [place] # (Auto) 0.3 10^3/uL (0.2-0.9) 11/30/23 10:06 Eos # (Auto) 0.2 10^3/uL (0.0-0.8) 11/30/23 10:06 Baso # (Auto) 0.0 10^3/uL (0.0-0.1) 11/30/23 10:06 Nucleated RBC % (auto) 0 % 11/30/23 10:06 Nucleated RBCs # 0.0 /100WBC 11/30/23 10:06 Specimen Type Arterial 11/28/23 16:50 Sample Site Radial, right 11/28/23 16:50 ABG pH 7.41 (7.35-7.45) 11/28/23 16:50 ABG pCO2 36.3 mmHg (35-45) 11/28/23 16:50 ABG pO2 129.0 mmHg (80.0-100.0) H 11/28/23 16:50 ABG PO2/FiO2 Ratio 0 11/28/23 16:50 ABG HCO3 22.9 mmol/L (22-26) 11/28/23 16:50 ABG O2 Saturation 99.7 11/28/23 16:50 ABG Base Excess -1.5 mmol/L (-2.0-2.0) 11/28/23 16:50 Rene Test Pos 11/28/23 16:50 A-a O2 Gradient 4.8 mmHg (5-10) L 11/28/23 16:50 Hematocrit 31.0 % (37-47) L 11/28/23 16:50 Hgb O2 Saturation 97.9 % (95-100) 11/28/23 16:50 Carboxyhemoglobin 1.4 %THgb (0.4-20.1) 11/28/23 16:50 Methemoglobin 0.5 % (0.4-1.5) 11/28/23 16:50 Total Hemoglobin 10.1 g/dL (12-16) L 11/28/23 16:50 Sodium 141.0 mmol/L (131-143) 11/28/23 16:50 Potassium 3.9 mmol/L (3.5-5.0) 11/28/23 16:50 Glucose 196.0 mg/dL (70-115) H 11/28/23 16:50 Ionized Calcium 1.2 mmol/L (1.1-1.4) 11/28/23 16:50 O2 Delivery Device Bipap 11/28/23 16:50 O2 Liters/Min 10.0 % 11/28/23 10:33 FiO2 30.0 % 11/28/23 16:50 Radio Script Writer ID Broma 11/28/23 16:50 Sodium 141 mmol/L (136-145) 11/30/23 05:30 Potassium 4.9 mmol/L (3.5-5.1) 11/30/23 05:30 Chloride 105 mmol/L (98-107) 11/30/23 05:30 Carbon Dioxide 25 mmol/L (22-29) 11/30/23 05:30 Anion Gap 15.9 (5-19) 11/30/23 05:30 BUN 36 mg/dL (8-23) H 11/30/23 05:30 Creatinine 1.8 mg/dL (0.5-0.9) H 11/30/23 05:30 GFR Calculation Not Reportable 11/30/23 05:30 Glucose 90 mg/dL (65-115) 11/30/23 05:30 POC Glucose 269 mg/dL (70-110) H 11/30/23 11:04 Calculated Osmolality 300 mOsm/kg (285-295) H 11/30/23 05:30 Calcium 8.9 mg/dL (8.5-10.5) 11/30/23 05:30 Magnesium 2.2 mg/dL (1.7-2.3) 11/29/23 05:22 Total Bilirubin 0.2 mg/dL (0.15-1.2) 11/30/23 05:30 AST 25 U/L (0-32) 11/30/23 05:30 ALT 15 U/L (0-33) 11/30/23 05:30 Alkaline Phosphatase 109 U/L (35-105) H 11/30/23 05:30 Troponin T Baseline 85 ng/L (0-10) H 11/28/23 10:20 Troponin T 120 Minute 92.94 ng/L (0-10) H 11/28/23 12:20 Delta Troponin T 7.94 ABS# (0-10) 11/28/23 12:20 Troponin T Hi Sens 6Hr 95.65 ng/L (0-10) H 11/28/23 19:00 Troponin T Hi Sens 6Hr Delta 10.65 ng/L (0-12) 11/28/23 19:00 NT-Pro-B Natriuret Pep 65254 pg/mL (0-125) H 11/28/23 10:20 Total Protein 5.9 g/dL (6.6-8.7) L 11/30/23 05:30 Albumin 2.9 g/dL (3.5-5.2) L 11/30/23 05:30 Globulin 3.0 g/dL (1.3-4.6) 11/30/23 05:30 Vitals Last Vital Signs Temp 98.4 F 11/30/23 11:05 Pulse 86 11/30/23 11:05 Resp 17 11/30/23 11:05 BP 147/72 11/30/23 11:05 Pulse Ox 94 11/30/23 11:05 O2 Del Method Room Air 11/30/23 11:05 O2 Flow Rate 2 11/29/23 04:00 FiO2 30 11/29/23 23:33 Discharge Plan Discharge Patient Disposition: Home Condition: Stable Prescriptions: New isosorbide mononitrate 30 mg Tablet Extended Release 24 Hr 30 mg PO BIDWM Qty: 60 0RF Continued Anoro Ellipta 62.5-25 mcg/actuation blister with device 1 inh INHALATION DAILY venlafaxine [Effexor XR] 150 mg capsule,extended release 24hr See Rx Instructions .ROUTE .COMPLEX Rx Instructions: TAKE 150 MG BY MOUTH AT BEDTIME ALONG WITH 75 MG Jardiance 10 mg tablet 10 mg PO DAILY apixaban 2.5 mg tablet 2.5 mg PO BID Qty: 180 2RF methimazole 5 mg tablet 5 mg PO DAILY Qty: 30 3RF (DME) Accu-Chek Ana M Plus test strp Strip See Rx Instructions .ROUTE .MEDSUPPLY Qty: 120 3RF Rx Instructions: check blood glucose four times a day tizanidine 4 mg tablet 4 mg PO BEDTIME nitroglycerin [Nitrostat] 0.4 mg Tablet, Sublingual 0.4 mg SUBLINGUAL Q5M PRN (Reason: Chest Pain) Rx Instructions: do not exceed 3 doses per episode insulin lispro [Humalog KwikPen Insulin] 100 unit/mL Insulin Pen 10 unit SUBCUT TID albuterol sulfate [Ventolin HFA] 90 mcg/actuation Hfa Aerosol Inhaler 2 puff INHALATION QID PRN (Reason: Shortness Of Breath) calcitriol 0.25 mcg capsule See Rx Instructions .ROUTE .COMPLEX Rx Instructions: TAKE 0.25 mcg orally 3 TIMES WEEKLY ON WEDNESDAY, WEDNESDAY, AND WEDNESDAY IN THE MORNING. metoprolol succinate 50 mg tablet extended release 24 hr 50 mg PO DAILY potassium chloride 10 mEq tablet extended release 10 meq PO DAILY Qty: 20 0RF furosemide 40 mg tablet See Rx Instructions .ROUTE .COMPLEX Qty: 60 0RF Rx Instructions: TAKE 1 TABLET BY MOUTH EVERY MORNING AND ONE-HALF EVERY EVENING. acetaminophen 500 mg Tablet 500 mg PO BEDTIME ipratropium-albuterol 0.5 mg-3 mg(2.5 mg base)/3 mL solution for nebulization 3 ml INHALATION QID PRN (Reason: Shortness Of Breath) hydralazine 50 mg tablet 100 mg PO TID PRN (Reason: Systolic blood pressure more than 180 mmHg) Qty: 7 0RF clopidogrel [Plavix] 75 mg tablet 75 mg PO DAILY Qty: 60 0RF atorvastatin 40 mg tablet 40 mg PO BEDTIME venlafaxine 75 mg capsule,extended release 24hr See Rx Instructions .ROUTE .COMPLEX Rx Instructions: TAKE 75 MG BY MOUTH AT BEDTIME ALONG WITH 150 MG acitretin 10 mg capsule 10 mg PO QAM aspirin 81 mg Tablet,Delayed Release (Dr/Ec) 81 mg PO QAM insulin glargine [Lantus Solostar U-100 Insulin] 100 unit/mL (3 mL) insulin pen See Rx Instructions .ROUTE .COMPLEX Rx Instructions: 20 unit subcutaneously daily as directed ergocalciferol (vitamin D2) [Vitamin D2] 1,250 mcg (50,000 unit) capsule 50,000 unit PO Q7D Rx Instructions: WEDNESDAY EVENINGS acetaminophen 325 mg Tablet 650 mg PO QID PRN (Reason: pain/fever) Changed Entresto 24-26 mg tablet 2 tab PO BID Qty: 60 0RF Discharge Orders: Discharge Order (Routine); Ordered 11/30/23 Ordered By: Moe Butler Referrals: Jocelyne Kirby PA [Primary Care Provider] - 12/07/23 10:20 am Discharge Diet: Cardiac and Diabetic Discharge Activity: Resume usual activity and Increase activity as tolerated Patient Instructions: Isosorbide Mononitrate (By mouth), Heart Failure (GEN), CHF Stoplight, Opioid Safety Activity Restrictions/Additional Instructions: Goal blood pressure less than 140/90 mmHg. Imdur 30 mg twice daily has been added to your medication list. Check your blood pressure daily at home maintain a blood pressure diary. Restrict fluid intake to less than 1500 cc, salt intake to less than 2 g daily. Advised to check her body weight daily at home and maintain a diary. Is advised that weight today would be the dry weight and if body weight increases by around 5 pounds, patient is to take an extra dose of Lasix daily till body weight comes down to weight today. If not able to come down to dry body weight in 1 week, then is to call cardiology office for further recommendations. Patient was counseled in detail to take medications regularly as prescribed. Discharge Attestations Time Spent in Discharge Care*: greater than 30 min Specific Discharge Activities: educating patient, discussing with pcp/other providers, discussing with shelter case manager/social workers/dc planners, documenting/other paperwork and evaluating patient/reviewing data Status at Discharge: Cognitive status at discharge: cognitively intact , Behavioral status at discharge: cooperative , Functional status at discharge: other assisted ambulation , Overall status at discharge: patient is progressing back to baseline Quality Metrics Clinical Quality Measures [ No reported AMI, CVA or VTE this stay] Coding Level of Care Code 84851 Total time (in minutes) for Discharge: 60 Diagnoses Hypertensive emergency I16.1 Troponin level elevated R79.89 Acute exacerbation of CHF (congestive heart failure) I50.9 Stage 3a chronic kidney disease N18.31 Chronic kidney disease stage: stage 3 (moderate) Chronic kidney disease stage 3 subtype: stage 3a (GFR 45-59) Dyslipidemia E78.5 Acute exacerbation of chronic obstructive airways disease J44.1 Anxiety F41.9 CHF (congestive heart failure) I50.9 Diabetes mellitus E11.9 Hyperthyroidism E05.90
[2023-11-30] MEDS: insulin lispro 100 unit/1 mL SUBCUT (12:16)
--- NOTE | 2023-11-30 13:32 | PC.NURSE ---
Munson catheter removed on 11/30/23 at 1300.
--- NOTE | 2023-11-30 15:30 | PC.NURSE ---
Discharge Note Patient discharged to home via POV accompanied by family. Discharge instructions reviewed with patient and/or pharmaceutical service representative. Mobile pharmacy medications and/or prescriptions provided. Belongings/home medications returned.
== END 2023-11-30 15:30 | disposition home or self-care (01) | DRG 304 ==
LOC: ER 11:27 → ICU 13:30 → MEDSURG 11-29 21:36
PROVIDERS: Admitting Provider Internal Medicine; Emergency Provider Emergency Medicine; PCP Physician Assistant; Visit Provider Student in an Organized Health Care Education/Training Program
DX: I16.1 Hypertensive emergency (principal); I50.33 Acute on chronic diastolic (congestive) heart failure; J44.1 Chronic obstructive pulmonary disease with (acute) exacerbation; N18.31 Chronic kidney disease, stage 3a; E78.5 Hyperlipidemia, unspecified; F41.9 Anxiety disorder, unspecified; E11.9 Type 2 diabetes mellitus without complications; E05.00 Thyrotoxicosis with diffuse goiter without thyrotoxic crisis or storm; Z87.891 Personal history of nicotine dependence; Z79.02 Long term (current) use of antithrombotics/antiplatelets; Z79.4 Long term (current) use of insulin; Z79.01 Long term (current) use of anticoagulants; Z79.82 Long term (current) use of aspirin; Z99.81 Dependence on supplemental oxygen; I13.0 Hypertensive heart and chronic kidney disease with heart failure and stage 1 through stage 4 chronic kidney disease, or unspecified chronic kidney disease; I25.10 Atherosclerotic heart disease of native coronary artery without angina pectoris; I25.5 Ischemic cardiomyopathy; D64.9 Anemia, unspecified
CPT/HCPCS: 36415; 36416; 36600; 51702; 71045; 80051; 80053; 82330; 82805; 82962; 83735; 83880; 84484; 85025; 87070; 87205; 93005; 94640; 94660; 94664; 96365; 96366; 96372; 96374; 96375; 96376; 99291; J1815; J1940; J3490

== ENCOUNTER 2023-12-26 10:41 | Inpatient (IN) | payer MEDICARE, MEDICAID, SELFPAY ==
[2023-12-26] VITALS (80 sets, daily range): BP systolic 145–192; BP diastolic 54–103; PULSE 66–98; RESP 12–26; TEMP 36.4–37.2; O2SAT 96–100; BMI 25.9
--- NOTE | 2023-12-26 10:54 | XRR_ITS ---
PROCEDURE INFORMATION: Exam: XR Chest Exam date and time: 12/26/2023 11:08 AM Age: 73 years old Clinical indication: Dyspnea TECHNIQUE: Imaging protocol: Radiologic exam of the chest. Views: 1 view. COMPARISON: CR (CHEST, ) 11/28/2023 10:30 AM FINDINGS: Lungs: No large focal consolidation. Pleural spaces: No large pleural effusion. No distinct pneumothorax. Heart/Mediastinum: Cardiomediastinal silhouette is midline and stable in size. Vasculature: Calcific disease of the aorta. Bones/joints: Postsurgical changes of prior median sternotomy. XR/XR chest 1V portable [id number] IMPRESSION: No acute cardiopulmonary findings.
[2023-12-26] MEDS: ipratropium-albuterol 3 mL Neb 6 ML INHALATION (10:57)
--- NOTE | 2023-12-26 10:59 | ED_ITS ---
HPI - SOB/Dyspnea 2 General: Chief Complaint: Shortness of Breath/Dyspnea Stated Complaint: SOB Time Seen by Provider: 12/26/23 10:50 History of Present Illness: HPI Narrative: Romi Yuan is a 73 year old female past medical history of CKD, pneumonia, skin cancer, hypothyroidism, anemia, ischemic cardiopathy, NSTEMI, congestive heart failure, diabetes mellitus, peripheral arterial disease, hypertension, dyslipidemia, tobacco smoking, anxiety who has had recurrent admissions in the past and was recently discharged on November 29 and before that on November 11. EMS reports patient complained of shortness of breath starting last night. Patient states it really started most severely at around 5 AM this morning. Patient uses 2 L of oxygen by nasal cannula at home. EMS placed her on BiPAP after noticing rales and respiratory distress. They also gave 400 mcg of nitroglycerin IV and push doses. Her blood pressure was significantly elevated and this seemed to help reduce her rales and her blood pressure. Between the BiPAP and the nitroglycerin, she has dramatically improved upon arrival. Patient has a former history of smoking but is no longer using tobacco products. Last dose of medications was last night; she reports compliance with all medications. Denies fever, chills, discolored sputum production. Associated symptoms: Deny abdominal pain, chest pain, extremity pain, fever(s), nausea, syncope or vomiting Review of Systems 2 General: Reports: 10 or more systems reviewed and unremarkable except in HPI and below Const: Denies: fever(s), chills or body aches Eyes: Denies: change in vision ENMT: Denies: throat pain Card: Denies: chest pain, edema or syncope GI: Denies: abdominal pain, nausea, vomiting or diarrhea : Denies: flank pain, dysuria or urinary frequency Musc: Denies: neck pain, back pain, extremity pain or extremity swelling Skin/Breast: Denies: rash or erythema Neuro: Denies: headache(s), numbness in extremities, weakness in extremities or lack of coordination PFSH ED 2 PFSH: Medical History Anemia Ischemic cardiomyopathy Atherosclerotic heart disease of [place] coronary artery with other forms of angina pectoris CHF exacerbation Acute non-ST elevation myocardial infarction (NSTEMI) Pulmonary embolism Congestive heart failure Acute respiratory failure with hypoxia Acute exacerbation of CHF (congestive heart failure) Diabetes mellitus PAD (peripheral artery disease) Dyslipidemia HTN (hypertension) NSTEMI (non-ST elevated myocardial infarction) Eczema CAD (coronary artery disease) Clostridioides difficile infection (07/2022) Insomnia CHF (congestive heart failure) Chronic kidney disease Hypertensive urgency Pneumonia due to COVID-19 virus (~06/2022) Colon polyps History of skin cancer Hyperthyroidism Graves disease History of CVA (cerebrovascular accident) COPD (chronic obstructive pulmonary disease) Anxiety Carotid arterial disease ASHD (arteriosclerotic heart disease) Surgical History Status post insertion of iliac artery stent History of coronary artery stent placement History of cardiac catheterization 06/25/2022 Left main artery: Short, patent. Left circumflex artery: Has patent stents, no significant stenosis. LAD:Occluded in the midsegment. RCA: Known occluded. Not injected. SVG to diagonal artery and SVG to RCA are known occluded. Not injected. [place] to LAD: Patent. Coronary anatomy unchanged compared to before. History of renal stent Hx of local excision of skin lesion (09/16/20) Left forearm x2 Status post colonoscopy (09/16/20) S/P hysterectomy with oophorectomy S/P cholecystectomy S/P CABG (coronary artery bypass graft) twice, last in 2004 History of endovascular stent graft for abdominal aortic aneurysm (AAA) S/P cataract surgery S/P skin and subcutaneous tissue surgery Family History Sister Mark's disease Sister No problems noted. Mother No problems noted. Other Anesthesia complication Social History Smoking and tobacco/nicotine status: former use of tobacco/nicotine Alcohol intake: current Alcohol intake frequency: holidays/special occasions only Substance/Drug Use: current Physical Exam 2 Narrative: EXAM NARRATIVE: Patient is on BiPAP on arrival. After it was removed for a trial of room air, her work of breathing did increase. She developed accessory muscle use and tachypnea. Her breath sounds are decreased. She has rales in the bases. No wheezing appreciated. Lower extremities are not discolored, edematous, or exhibiting any signs of asymmetry. Heart rate in the 80s. Const: COMMON NORMALS: alert and well nourished EXAM LIMITATIONS: no altered mental status HENMT: COMMON NORMALS: normocephalic, atraumatic and external ears normal H EAD & SCALP: normocephalic and atraumatic EXTERNAL EAR: Yes external ears normal MOUTH: no muffled voice Neck/C-Spine: GENERAL: Yes normal visual inspection and Yes trachea midline Cardio: COMMON NORMALS: regular rate and regular rhythm RATE: regular rate RHYTHM: regular rhythm GI: PALPATION: No Guarding due to palpation present (GI) Extremity: COMMON NORMALS: normal to inspection Neuro: COMMON NORMALS: moves all extremities, no focal motor deficits and no sensory deficits noted SENSORIUM/ORIENTATION: Yes alert SPEECH: speech normal Psych: COMMON NORMALS: mental status grossly normal, Normal thought process present, cooperative, normal affect and speech normal SPEECH: Yes normal speech THOUGHT PROCESS: Normal thought process present Skin: COMMON NORMALS: no rashes or lesions noted, turgor normal and no jaundice GENERAL SKIN EXAM: no rashes or lesions noted and turgor normal Course 2 ED course: Patient is currently on the BiPAP and is resting comfortably. Tidal volumes around 375, FiO2 30%, respiratory rate currently 20. Her blood pressure is still elevated but not critically so. We will allow time for the oral medications to work. Her chest x-ray was reviewed by me and I do not see any large pleural effusions, pneumothorax, focal infiltrate or significant pulmonary edema. The patient will require admission as she continues to require BiPAP. Vital Signs: Vital signs: Vital Signs Temperature 97.6 F 12/26/23 10:46 Pulse Rate 78 12/26/23 11:29 Respiratory Rate 21 H 12/26/23 11:29 Blood Pressure 175/73 12/26/23 11:30 Pulse Oximetry 98 12/26/23 11:29 Oxygen Delivery Me thod BiPAP 12/26/23 11:29 Oxygen Flow Rate 3 12/26/23 10:57 Fraction of Inspir ed Oxygen 30 12/26/23 11:08 MDM - SOB/Dyspnea Medical Decision Making Differential diagnosis includes flash pulmonary edema from hypertensive emergency, CHF exacerbation, pulmonary embolism, COPD exacerbation, pulmonary hypertension, pleural effusion, pneumonia, anemia, myocardial infarction, multiple other potential etiologies. We tried the patient on room air and she quickly developed respiratory distress with increased accessory muscle use, tachypnea, tripod position, etc. We restarted BiPAP. A blood gas was obtained during the room air trial on 3 L and showed a pH of 7.277 with a pCO2 of 45.1 and a pO2 of 67.2. It was noted that the patient's blood pressure quickly went up shortly after arrival. Not sure if this is coinciding with the respiratory distress; it could be primary or secondary. I have ordered her home meds including hydralazine, metoprolol, isosorbide mononitrate for blood pressure control. I have also asked that they give nitroglycerin sublingual until these medicines start to work. We may be forced to use nitroglycerin drip if she does not show signs of improvement; this has worked for her in the past. Lab Data 12/26/23 10:50 12/26/23 10:50 Labs/Radiology: Radiology Impressions Chest X-Ray 12/26/23 10:54 IMPRESSION: No acute cardiopulmonary findings. Laboratory Results WBC 18.71 10^3/uL (3.29-11.43) H 12/26/23 10:50 RBC 4.19 10^6/uL (3.85-5.65) 12/26/23 10:50 Hgb 9.80 g/dL (11.27-16.99) L 12/26/23 10:50 Hct 34.5 % (36-47) L 12/26/23 10:50 MCV 82.3 fl (85-98) L 12/26/23 10:50 MCH 23.4 pg (27-33) L 12/26/23 10:50 MCHC 28.4 g/dL (30-55) L 12/26/23 10:50 RDW 15.2 % (12.1-15.1) H 12/26/23 10:50 Plt Count 402 10^3/cmm (157-399) H 12/26/23 10:50 MPV 10.9 fL (7.4-10.4) H 12/26/23 10:50 Neut % (Auto) 38.4 % 12/26/23 10:50 Lymph % (Auto) 52.3 % 12/26/23 10:50 [place] % (Auto) 5.3 % 12/26/23 10:50 Eos % (Auto) 3.3 % 12/26/23 10:50 Baso % (Auto) 0.4 % 12/26/23 10:50 Neut # (Auto) 7.19 10^3/uL (1.8-7.7) 12/26/23 10:50 Lymph # (Auto) 9.8 10^3/uL (0.8-4.8) H 12/26/23 10:50 [place] # (Auto) 1.0 10^3/uL (0.2-0.9) H 12/26/23 10:50 Eos # (Auto) 0.6 10^3/uL (0.0-0.8) 12/26/23 10:50 Baso # (Auto) 0.1 10^3/uL (0.0-0.1) 12/26/23 10:50 Nucleated RBC % (auto) 0 % 12/26/23 10:50 Nucleated RBCs # 0.0 /100WBC 12/26/23 10:50 D-Dimer 0.99 ug/mLFEU (0-0.59) H 12/26/23 10:50 Specimen Type Arterial 12/26/23 10:54 Sample Site Brachial, right 12/26/23 10:54 ABG pH 7.28 (7.35-7.45) L 12/26/23 10:54 ABG pCO2 45.1 mmHg (35-45) H 12/26/23 10:54 ABG pO2 67.2 mmHg (80.0-100.0) L 12/26/23 10:54 ABG PO2/FiO2 Ratio 240 12/26/23 10:54 ABG HCO3 21.0 mmol/L (22-26) L 12/26/23 10:54 ABG Base Excess -5.5 mmol/L (-2.0-2.0) L 12/26/23 10:54 Rene Test Pos 12/26/23 10:54 Hematocrit 28.5 % (37-47) L 12/26/23 10:54 Hgb O2 Saturation 88.7 % (95-100) L 12/26/23 10:54 Carboxyhemoglobin 2.4 %THgb (0.4-20.1) 12/26/23 10:54 Methemoglobin 0.5 % (0.4-1.5) 12/26/23 10:54 Total Hemoglobin 9.3 g/dL (12-16) L 12/26/23 10:54 O2 Delivery Device Nc 12/26/23 10:54 O2 Liters/Min 2.0 % 12/26/23 10:54 FiO2 28.0 % 12/26/23 10:54 Audio Visual Technician ID Kristi 12/26/23 10:54 Sodium 144 mmol/L (136-145) 12/26/23 10:50 Potassium 4.4 mmol/L (3.5-5.1) 12/26/23 10:50 Chloride 110 mmol/L (98-107) H 12/26/23 10:50 Carbon Dioxide 20 mmol/L (22-29) L 12/26/23 10:50 Anion Gap 18.4 (5-19) 12/26/23 10:50 BUN 35 mg/dL (8-23) H 12/26/23 10:50 Creatinine 2.2 mg/dL (0.5-0.9) H 12/26/23 10:50 GFR Calculation Not Reportable 12/26/23 10:50 Glucose 186 mg/dL (65-115) H 12/26/23 10:50 Calculated Osmolality 311 mOsm/kg (285-295) H 12/26/23 10:50 Calcium 8.8 mg/dL (8.5-10.5) 12/26/23 10:50 Total Bilirubin 0.2 mg/dL (0.15-1.2) 12/26/23 10:50 AST 18 U/L (0-32) 12/26/23 10:50 ALT 8 U/L (0-33) 12/26/23 10:50 Alkaline Phosphatase 120 U/L (35-105) H 12/26/23 10:50 Troponin T Baseline 82 ng/L (0-10) H 12/26/23 10:50 Total Protein 6.8 g/dL (6.6-8.7) 12/26/23 10:50 Albumin 3.6 g/dL (3.5-5.2) 12/26/23 10:50 Globulin 3.2 g/dL (1.3-4.6) 12/26/23 10:50 All radiology interpretation(s) finalized by discharge ED provider radiology interpretation(s): ED interpretation, single view chest x-ray, previous sternotomy, appears to have previous heart valve replacement, no significant pleural effusions, no focal infiltrates, no significant pulmonary edema. Few small air bronchograms. Critical Care Time 2 Critical Care Time: Critical Care Time: Yes Total Critical Care Time: 30 Attestation: Respiratory failure, hypertensive emergency Complex decision making involving bipap, abg, reassessment, chart review, medication selection, cardiac output measures. Discharge Plan Discharge Patient Disposition: Admitted As Inpatient Clinical Impression: Hypertensive emergency, Acute and chronic respiratory failure with hypoxia Condition: Stable Coding Level of Care Code ED Veterinary Surgery Technologist for Kiran Holland
[2023-12-26 11:04] LABS: Basophils # 0.1 10^3/uL (0.0-0.1); Basophils % 0.4 %; Eosinophils # 0.6 10^3/uL (0.0-0.8); Eosinophils % 3.3 %; Hematocrit 34.5 % (36-47); Lymphocytes # 9.8 10^3/uL (0.8-4.8); Lymphocytes % 52.3 %; Mean Corpuscular HGB Conc 28.4 g/dL (30-55); Mean Corpuscular Hemoglobin 23.4 pg (27-33); Mean Corpuscular Volume 82.3 fl (85-98); Mean Platelet Volume 10.9 fL (7.4-10.4); Monocytes % 5.3 %; Neutrophils # 7.19 10^3/uL (1.8-7.7); Neutrophils % 38.4 %; Nucleated Red Blood Cells % 0 %; Platelet Count 402 10^3/cmm (157-399); Red Blood Count 4.19 10^6/uL (3.85-5.65); Red Cell Distribution Width 15.2 % (12.1-15.1); White Blood Count 18.71 10^3/uL (3.29-11.43)
--- NOTE | 2023-12-26 11:07 | ECG_ITS ---
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 Measurements Intervals [place] Rate: 89 P: 46 SD: 184 QRS: -44 QRSD: 112 T: 85 QT: 350 QTc: 426 Interpretive Statements SINUS RHYTHM WITH OCCASIONAL VENTRICULAR PREMATURE COMPLEXES LEFT AXIS DEVIATION [QRS AXIS < -30] LEFT VENTRICULAR HYPERTROPHY AND ST-T CHANGE [VOLTAGE CRITERIA PLUS ST/T ABNORMALITY] Compared to ECG 11/29/2023 17:13:22 Ventricular premature complex(es) now present ST (T wave) deviation still present Electronically Signed On 12-26-2023 15:28:51 CDT by Rikki Stallworth M.D. [id number]
[2023-12-26 11:08] LABS: ABG PH Result 7.28 (7.35-7.45); Arterial Blood Gas Hematocrit 28.5 % (37-47); Blood Gas Allen Test Pos; Blood Gas Sample Site Brachial, right; Blood Gas Sample Type Arterial; Total Hemoglobin 9.3 g/dL (12-16)
[2023-12-26 11:10] LABS: ABG PCO2 45.1 mmHg (35-45); Base Excess ABG -5.5 mmol/L (-2.0-2.0); Blood Gas Operator Identificat MONRO; Carboxyhemoglobin 2.4 %THgb (0.4-20.1); HGB O2 Sat 88.7 % (95-100); Methemoglobin 0.5 % (0.4-1.5); Oxygen Device NC; PO2 ABG 67.2 mmHg (80.0-100.0); PO2 FiO2 Ratio Arterial Blood 240
[2023-12-26 11:21] LABS: D Dimer 0.99 ug/mLFEU (0-0.59)
[2023-12-26] MEDS: FUROsemide 10 mg/mL SDV 4mL 40 MG IVP ×2 (11:21→15:03)
[2023-12-26 11:23] LABS: Troponin(5th) Baseline 82 ng/L (0-10)
[2023-12-26] MEDS: apixaban 5 mg Tablet 2.5 MG PO ×2 (11:24→20:07)
[2023-12-26] MEDS: hyDRALAzine 25 mg Tablet 100 MG PO (11:25)
[2023-12-26] MEDS: metoprolol succinate ER (24 HR) 50 mg Tablet PO (11:25)
[2023-12-26] MEDS: isosorbide mononitrate 20 mg Tablet 30 MG PO (11:26)
[2023-12-26 11:30] LABS: Alanine Aminotransferase 8 U/L (0-33); Albumin Level 3.6 g/dL (3.5-5.2); Alkaline Phosphatase 120 U/L (35-105); Anion Gap 18.4 (5-19); Aspartate Amino Transferase 18 U/L (0-32); Blood Urea Nitrogen 35 mg/dL (8-23); Calcium 8.8 mg/dL (8.5-10.5); Carbon Dioxide 20 mmol/L (22-29); Chloride 110 mmol/L (98-107); Globulin 3.2 g/dL (1.3-4.6); Glucose 186 mg/dL (65-115); Osmolality Calculated 311 mOsm/kg (285-295); Potassium 4.4 mmol/L (3.5-5.1); Sodium 144 mmol/L (136-145); Total Bilirubin 0.2 mg/dL (0.15-1.2); Total Protein 6.8 g/dL (6.6-8.7)
[2023-12-26 11:50] LABS: NT Pro B Type Natriuretic Pept 34102 pg/mL (0-125)
[2023-12-26] MEDS: clopidogrel 75 mg Tablet PO (12:22)
[2023-12-26] MEDS: aspirin 325 mg Tablet PO (12:22)
[2023-12-26] MEDS: nitroglycerin 0.4 mg sublingual Tablet SUBLINGUAL (12:25)
[2023-12-26 13:56] LABS: Troponin 5 2HR 84.67 ng/L (0-10); Troponin 5 2HR Delta 2.67 ABS# (0-10)
--- NOTE | 2023-12-26 14:19 | P.HP_ITS ---
Providers/Chief Complaint 2 Admitting Physician: Jackie Oliver MD Primary Care Provider: Jocelyne Kirby Chief Complaint: SOB History of Present Illness Romi Yuan is a 73 year old female with past medical history of CKD, pneumonia, skin cancer, hypothyroidism, anemia, ischemic cardiopathy, NSTEMI, congestive heart failure, diabetes mellitus, peripheral arterial disease, hypertension, dyslipidemia, anxiety who has had recurrent admissions in the past and was recently discharged on 11 November. She was recently admitted for shortness of breath orthopnea PND. She was prescribed 2 L of oxygen which she uses on daily basis. She has quit smoking already. Watches her sodium and fluid intake. Is compliant with her medication. Previous admission she was admitted for CHF exacerbation and treated with IV Bumex. Recent echo showed EF 45 to 50%. She was admitted admitted for congestive heart failure in setting of hypertensive urgency she was placed on nitro drip along with IV diuretics and she responded well to diet and was sent home in stable condition after adjustment of antihypertensives. Today patient presents back to the hospital with complaint of sudden onset shortness of breath that started last night and has been worsening. It got severe around 5 in the morning. She is on 2 L nasal cannula at baseline. She was placed on BiPAP by EMS and 400 mg of nitroglycerin was given. Blood pressure was significantly elevated on arrival. She feels a lot better at this time. She is a former smoker. Denies fever chills sputum production. She says she feels great at this time. Medications/Allergies Home Medications Medication Instructions Recorded Confirmed Last Taken Type umeclidinium 62.5 mcg-vilanterol 1 inh inhalation DAILY 07/20/19 11/29/23 11/27/23 History 25 mcg/actuation powdr for inhalation (Anoro Ellipta) venlafaxine 150 mg See Rx Instructions .Route .COMPLEX 07/20/19 11/29/23 11/27/23 History capsule,extended release 24 hr (Effexor XR) methimazole 5 mg tablet 5 mg PO DAILY #30 tabs 03/11/20 11/29/23 11/27/23 Rx blood sugar diagnostic (Accu-Chek #120 ea 06/23/21 11/29/23 Unknown Rx Ana M Plus test strips) clopidogrel 75 mg tablet (Plavix) 75 mg PO DAILY #60 tabs 06/15/22 11/29/23 11/27/23 Rx acitretin 10 mg capsule 10 mg PO QAM 06/19/22 11/29/23 11/27/23 History atorvastatin 40 mg tablet 40 mg PO BEDTIME 06/19/22 11/29/23 11/27/23 History venlafaxine 75 mg capsule,extended See Rx Instructions .Route .COMPLEX 06/19/22 11/29/23 11/27/23 History release 24 hr albuterol sulfate 90 mcg/actuation 2 puff inhalation QID PRN 07/09/22 11/29/23 09/11/23 History aerosol inhaler (Ventolin HFA) Shortness Of Breath insulin lispro 100 unit/mL 10 unit SUBCUT TID 07/09/22 11/29/23 11/27/23 History subcutaneous pen (Humalog KwikPen (U-100) Insulin) nitroglycerin 0.4 mg sublingual 0.4 mg sublingual Q5M PRN Chest 07/09/22 11/29/23 02/26/23 History tablet (Nitrostat) Pain tizanidine 4 mg tablet 4 mg PO BEDTIME 07/09/22 11/29/23 11/27/23 History empagliflozin 10 mg tablet 10 mg PO DAILY 09/07/22 11/29/23 11/27/23 History (Jardiance) apixaban 2.5 mg tablet 2.5 mg PO BID #180 tabs 05/19/23 11/29/23 11/27/23 Rx calcitriol 0.25 mcg capsule See Rx Instructions .Route .COMPLEX 06/17/23 11/29/23 11/26/23 History aspirin 81 mg tablet,delayed 81 mg PO QAM 09/03/23 11/29/23 11/27/23 History release ergocalciferol (vitamin D2) 1,250 50,000 unit PO Q7D 09/03/23 11/29/23 11/24/23 History mcg (50,000 unit) capsule (Vitamin D2) insulin glargine 100 unit/mL (3 See Rx Instructions .Route .COMPLEX 09/03/23 11/29/23 09/10/23 History mL) subcutaneous pen (Lantus Solostar U-100 Insulin) acetaminophen 325 mg tablet 650 mg PO QID PRN pain/fever 09/11/23 11/29/23 Unknown History furosemide 40 mg tablet See Rx Instructions .Route 11/12/23 11/29/23 11/27/23 Rx .COMPLEX #60 tabs metoprolol succinate 50 mg 50 mg PO DAILY 11/12/23 11/29/23 11/27/23 History tablet,extended release 24 hr potassium chloride 10 mEq 10 meq PO DAILY #20 tabs 11/12/23 11/29/23 11/27/23 Rx tablet,extended release acetaminophen 500 mg tablet 500 mg PO BEDTIME 11/29/23 11/29/23 11/27/23 History ipratropium 0.5 mg-albuterol 3 mg 3 ml inhalation QID PRN Shortness 11/29/23 11/29/23 Unknown History (2.5 mg base)/3 mL nebulization Of Breath soln hydralazine 50 mg tablet 100 mg (2 x 50 mg) PO TID PRN 11/30/23 11/29/23 Unknown Rx Systolic blood pressure more than 180 mmHg #7 tabs isosorbide mononitrate 30 mg 30 mg PO BIDWM #60 tabs 11/30/23 Unknown Rx tablet,extended release 24 hr sacubitril 24 mg-valsartan 26 mg 2 tab PO BID #60 tabs 11/30/23 11/29/23 11/27/23 Rx tablet (Entresto) Allergies Allergy/AdvReac Type Severity Reaction Status Date / Time cefuroxime [From Ceftin] Allergy ALGY-Rash Verified 12/26/23 10:54 cephalexin [From Keflex] Allergy ALGY-Rash Verified 12/26/23 10:54 hydroxyzine [From Vistaril] Allergy ALGY-Anaphy Verified 12/26/23 10:54 laxis Penicillins Allergy ALGY-Redness Verified 12/26/23 10:54 of Skin prochlorperazine Allergy ALGY-Anaphy Verified 12/26/23 10:54 [From Compazine] laxis promethazine [From Phenergan] Allergy ALGY-Anaphy Verified 12/26/23 10:54 laxis venom-honey bee Allergy ALGY-Anaphy Verified 12/26/23 10:54 laxis simvastatin [From Zocor] AdvReac ADR-Heartbu Verified 12/26/23 10:54 rn PFSH Acute 2 PFSH: Medical History (Updated 12/26/23 @ 14:22 by Jackie Oliver MD) Diabetes mellitus Congestive heart failure Community acquired pneumonia Hypertension, uncontrolled Stable angina Anemia Ischemic cardiomyopathy Atherosclerotic heart disease of [place] coronary artery with other forms of angina pectoris CHF exacerbation Acute non-ST elevation myocardial infarction (NSTEMI) Pulmonary embolism Congestive heart failure Acute respiratory failure with hypoxia Acute exacerbation of CHF (congestive heart failure) PAD (peripheral artery disease) Dyslipidemia HTN (hypertension) NSTEMI (non-ST elevated myocardial infarction) Eczema CAD (coronary artery disease) Clostridioides difficile infection (07/2022) Insomnia CHF (congestive heart failure) Chronic kidney disease Hypertensive urgency Pneumonia due to COVID-19 virus (~06/2022) Colon polyps History of skin cancer Hyperthyroidism Graves disease History of CVA (cerebrovascular accident) COPD (chronic obstructive pulmonary disease) Anxiety Carotid arterial disease ASHD (arteriosclerotic heart disease) Surgical History Status post insertion of iliac artery stent History of coronary artery stent placement History of cardiac catheterization 06/25/2022 Left main artery: Short, patent. Left circumflex artery: Has patent stents, no significant stenosis. LAD:Occluded in the midsegment. RCA: Known occluded. Not injected. SVG to diagonal artery and SVG to RCA are known occluded. Not injected. LOVETT to LAD: Patent. Coronary anatomy unchanged compared to before. History of renal stent Hx of local excision of skin lesion (09/16/20) Left forearm x2 Status post colonoscopy (09/16/20) S/P hysterectomy with oophorectomy S/P cholecystectomy S/P CABG (coronary artery bypass graft) twice, last in 2004 History of endovascular stent graft for abdominal aortic aneurysm (AAA) S/P cataract surgery S/P skin and subcutaneous tissue surgery Family History Sister Mark's disease Sister No problems noted. Mother No problems noted. Other Anesthesia complication Social History Smoking and tobacco/nicotine status: former use of tobacco/nicotine Alcohol intake: current Alcohol intake frequency: holidays/special occasions only Substance/Drug Use: current Vitals/I&O/Wt Last Vital Signs Temp 97.6 F 12/26/23 10:46 Pulse 78 12/26/23 14:15 Resp 13 12/26/23 14:15 BP 192/87 12/26/23 14:15 Pulse Ox 100 12/26/23 14:15 O2 Del Method Nasal Cannula 12/26/23 12:51 O2 Flow Rate 3 12/26/23 10:57 FiO2 30 12/26/23 14:00 Weight last 48 hrs Weight 60.413 kg Weight 58.06 kg Physical Exam 2 Narrative: laying in bed on 2L nC saturating 100% Feels better and back to normal Lungs b/l crackles at bases Normal S1, S2 Abdomen soft 1+ edema b/l lower extremity RN at bedside patient happy and pleasant, no conversational dyspnea, no shortness of breath Data 12/26/23 10:50 12/26/23 10:50 A&P Assessment and plan (1) Hypertensive emergency: (2) Acute on chronic diastolic (congestive) heart failure: (3) Diabetes mellitus: (4) Chronic kidney disease: Qualifiers: Chronic kidney disease stage: stage 3 (moderate) Chronic kidney disease stage 3 subtype: stage 3a (GFR 45-59) Qualified Code(s): N18.31 - Chronic kidney disease, stage 3a (5) CAD (coronary artery disease): Qualifiers: Associated angina: without angina Coronary Disease-Associated Artery/Lesion type: [place] artery [place] vs. transplanted heart: [place] heart Qualified Code(s): I25.10 - Atherosclerotic heart disease of [place] coronary artery without angina pectoris (6) Dyslipidemia: (7) Hypertensive urgency: (8) S/P CABG (coronary artery bypass graft): (9) Anxiety: Plan #Hypertensive urgency #Flash pulmonary edema #Acute on chronic systolic congestive heart failure EF 45 to 50% #Diabetes mellitus type 2 #COPD #CKD, cr at baseline #Peripheral arterial disease #CAD, ischemic cardiomyopathy #Anxiety #History of NSTEMI ? BP elevated at admission, nitro was given, bipap was placed. Pt probably had flash pulm edema 2/2 to hypertensive urgency ? Continue Plavix Entresto, metoprolol succinate, venlafaxine ? Continue Eliquis, i have stopped aspirin. Not sure why she is on triple therapy. ? delta trop at 2 hours 2.67 similar to pt's baseline. EKG did not show any acute ischemic changes ? ABG initially showed pH 7.28/45. Will repeat a gas now. pt back to nc at this time. place on bipap as needed ? Continue Lantus 17 units nightly, moderate dose intensity sliding scale insulin ? Check chest x-ray in AM. ? I will not repeat echo since there was one done recently. ? Will need to diurese. Placed on Lasix 40 IV twice daily ? Check BMP daily monitor electrolytes replete as needed. Keep magnesium above 2 and potassium above 4. ? Patient on the methimazole at home 5 mg daily. - wbc [id number]. possibly reactive? Monitor off abx for now. Check procalcitonin, sputum gm stain culture, in event of pt worsening, will check ct chest - continue home meds Full code DVT prophylaxis: Patient is on Eliquis. Attestations 2 Medical Necessity Statement*: > 2 midnight stay for mgmt of htn urgency Diagnoses Hypertensive emergency I16.1 Acute on chronic diastolic (congestive) heart failure I50.33 Diabetes mellitus E11.9 Stage 3a chronic kidney disease N18.31 Chronic kidney disease stage: stage 3 (moderate) Chronic kidney disease stage 3 subtype: stage 3a (GFR 45-59) Coronary artery disease involving [place] coronary artery of [place] heart without angina pectoris I25.10 Associated angina: without angina Coronary Disease-Associated Artery/Lesion type: [place] artery [place] vs. transplanted heart: [place] heart Dyslipidemia E78.5 Hypertensive urgency I16.0 S/P CABG (coronary artery bypass graft) Z95.1 Anxiety F41.9
[2023-12-26] MEDS: hyDRALAzine 50 mg Tablet PO ×2 (15:03→20:07)
[2023-12-26 15:04] LABS: Procalcitonin 0.13 ng/mL (0-0.5)
[2023-12-26 15:21] LABS: ABG PCO2 36.6 mmHg (35-45); ABG PH Result 7.36 (7.35-7.45); Arterial Blood Gas Hematocrit 26.7 % (37-47); Base Excess ABG -4.6 mmol/L (-2.0-2.0); Blood Gas Allen Test Pos; Blood Gas Sample Type Arterial; HCO3 ABG 20.4 mmol/L (22-26)
[2023-12-26 15:22] LABS: Blood Gas Operator Identificat MONRO; Blood Gas Sample Site Radial, right; Oxygen Device BIPAP; PO2 FiO2 Ratio Arterial Blood 420
[2023-12-26 17:09] LABS: Glucose Point of Care 169 mg/dL (70-110)
[2023-12-26] MEDS: sacubitril/valsartan 24-26 mg Tablet 2 EACH PO (17:13)
[2023-12-26] MEDS: insulin lispro 100 unit/1 mL SUBCUT ×2 (17:13→20:16)
[2023-12-26 17:55] LABS: Troponin 5 6HR 79.03 ng/L (0-10); Troponin 5 6HR Delta -2.97 ng/L (0-12)
[2023-12-26] MEDS: metoprolol tartrate 25 mg Tablet PO (20:07)
[2023-12-26] MEDS: atorvastatin 40 mg Tablet PO (20:07)
[2023-12-26] MEDS: ipratropium-albuterol 3 mL Neb INHALATION (20:20)
[2023-12-27] VITALS (29 sets, daily range): BP systolic 109–179; BP diastolic 51–95; PULSE 66–96; RESP 10–21; TEMP 36.3–36.9; O2SAT 96–100
[2023-12-27] MEDS: ipratropium-albuterol 3 mL Neb INHALATION ×4 (01:46→19:58)
[2023-12-27 02:17] LABS: Glucose Point of Care 245 mg/dL (70-110)
[2023-12-27 04:30] LABS: ABG PCO2 32.1 mmHg (35-45); ABG PH Result 7.43 (7.35-7.45); Base Excess ABG -2.9 mmol/L (-2.0-2.0); Blood Gas Allen Test Pos; Blood Gas Sample Site Brachial, right; Blood Gas Sample Type Arterial; Oxygen Device BIPAP; PO2 ABG 93.3 mmHg (80.0-100.0); PO2 FiO2 Ratio Arterial Blood 373
[2023-12-27 04:36] LABS: Basophils % 0.2 %; Eosinophils % 0.2 %; Hematocrit 28.9 % (36-47); Lymphocytes # 1.4 10^3/uL (0.8-4.8); Lymphocytes % 13.5 %; Mean Corpuscular HGB Conc 30.1 g/dL (30-55); Mean Corpuscular Hemoglobin 23.7 pg (27-33); Mean Corpuscular Volume 78.7 fl (85-98); Mean Platelet Volume 10.8 fL (7.4-10.4); Monocytes # 0.7 10^3/uL (0.2-0.9); Monocytes % 6.9 %; Neutrophils # 8.27 10^3/uL (1.8-7.7); Neutrophils % 78.6 %; Nucleated Red Blood Cells % 0 %; Platelet Count 283 10^3/cmm (157-399); Red Blood Count 3.67 10^6/uL (3.85-5.65); Red Cell Distribution Width 15.3 % (12.1-15.1); White Blood Count 10.51 10^3/uL (3.29-11.43)
[2023-12-27 05:02] LABS: Anion Gap 17.4 (5-19); Blood Urea Nitrogen 39 mg/dL (8-23); Calcium 9.1 mg/dL (8.5-10.5); Carbon Dioxide 21 mmol/L (22-29); Chloride 111 mmol/L (98-107); Creatinine Clr Calc Pharmacy 18.5034; Glucose 181 mg/dL (65-115); Magnesium 2.2 mg/dL (1.7-2.3); Osmolality Calculated 314 mOsm/kg (285-295); Potassium 4.4 mmol/L (3.5-5.1); Sodium 145 mmol/L (136-145)
[2023-12-27] MEDS: insulin lispro 100 unit/1 mL SUBCUT ×3 (07:50→21:14)
[2023-12-27] MEDS: metoprolol tartrate 25 mg Tablet PO ×2 (07:53→20:18)
[2023-12-27] MEDS: isosorbide mononitrate ER 60 mg Tablet PO (07:53)
[2023-12-27] MEDS: clopidogrel 75 mg Tablet PO (07:53)
[2023-12-27] MEDS: venlafaxine ER (24HR) 150 mg Capsule PO (07:53)
[2023-12-27] MEDS: apixaban 5 mg Tablet 2.5 MG PO ×2 (07:54→20:18)
[2023-12-27] MEDS: sacubitril/valsartan 24-26 mg Tablet 2 EACH PO ×2 (07:55→17:37)
[2023-12-27] MEDS: hyDRALAzine 50 mg Tablet PO ×3 (07:55→20:18)
--- NOTE | 2023-12-27 08:32 | PC.PHAR ---
PTS' MEDS HAVE ALL CURRENT FILL DATES AND PT IS VERY SHARP ABOUT HER MEDICATIONS.
--- NOTE | 2023-12-27 10:28 | PC.SOCIAL ---
IMM Update Pg. 2 of IMM updated. Copy left at bedside.
[2023-12-27 11:03] LABS: Glucose Point of Care 249 mg/dL (70-110)
[2023-12-27 11:03] LABS: Glucose Point of Care 218 mg/dL (70-110)
[2023-12-27] MEDS: FUROsemide 10 mg/mL SDV 4mL 40 MG IVP (16:00)
--- NOTE | 2023-12-27 16:08 | PM.PN ---
Subjective Subjective: Patient states she feels better today. Less dyspneic. Currently saturating well on room air while laying in bed. Stated that earlier while trying to use the bedside commode she felt dyspneic but this is better compared to yesterday. Blood pressure is currently well-controlled. Medications: Reviewed: Yes Vitals/I&O/Wt Last Vital Signs Temp 98.5 F 12/27/23 08:00 Pulse 84 12/27/23 16:00 Resp 10 L 12/27/23 16:00 BP 140/73 12/27/23 16:00 Pulse Ox 96 12/27/23 16:00 O2 Del Method Room Air 12/27/23 14:02 O2 Flow Rate 2 12/26/23 18:12 FiO2 25 12/27/23 04:00 12/27/23 12/27/23 12/27/23 06:59 14:59 22:59 Intake Total 480 / 480 Output Total 120 / 320 Balance -120 / 36 480 / 480 Weight last 48 hrs Weight 60.413 kg Weight 58.06 kg Physical Exam Narrative: General: No acute distress, AO x3 HEENT: PERRLA, pupils bilaterally equal and reactive, pallors not present Chest: Normal vesicular breath sounds, no added sounds, equal good air entry bilaterally CVS: S1-S2 regular, no murmurs, no tachycardia, no gallops, no rubs Abdomen: Soft, nontender, no organomegaly, bowel sounds present Neuro: No focal deficits, no facial deformity, AO x3, power 5/5 in all limbs Data 12/27/23 03:06 12/27/23 03:06 Micro: Microbiology 12/26/23 17:15 Blood Culture - Preliminary Blood SPECIMEN COLLECTED 12/26/23 17:06 Blood Culture - Preliminary Blood SPECIMEN COLLECTED A&P Assessment and plan (1) Hypertensive emergency: (2) Acute on chronic diastolic (congestive) heart failure: (3) Diabetes mellitus: (4) Chronic kidney disease: Qualifiers: Chronic kidney disease stage: stage 3 (moderate) Chronic kidney disease stage 3 subtype: stage 3a (GFR 45-59) Qualified Code(s): N18.31 - Chronic kidney disease, stage 3a (5) CAD (coronary artery disease): Qualifiers: Associated angina: without angina Coronary Disease-Associated Artery/Lesion type: [place] artery [place] vs. transplanted heart: [place] heart Qualified Code(s): I25.10 - Atherosclerotic heart disease of [place] coronary artery without angina pectoris (6) Dyslipidemia: (7) Hypertensive urgency: (8) S/P CABG (coronary artery bypass graft): (9) Anxiety: Plan #Hypertensive urgency #Flash pulmonary edema #Acute on chronic systolic congestive heart failure EF 45 to 50% #Diabetes mellitus type 2 #COPD #CKD, cr at baseline #Peripheral arterial disease #CAD, ischemic cardiomyopathy #Anxiety #History of NSTEMI ? BP elevated at admission, nitro was given, bipap was placed. Pt probably had flash pulm edema 2/2 to hypertensive urgency ? Continue Plavix Entresto, metoprolol succinate, venlafaxine ? Continue Eliquis, i have stopped aspirin. Not sure why she is on triple therapy. ? delta trop at 2 hours 2.67 similar to pt's baseline. EKG did not show any acute ischemic changes ? ABG initially showed pH 7.28/45. Will repeat a gas now. pt back to [place] at this time. place on bipap as needed ? Continue Lantus 17 units nightly, moderate dose intensity sliding scale insulin ? Check chest x-ray in AM. ? I will not repeat echo since there was one done recently. ? Will need to diurese. Placed on Lasix 40 IV twice daily ? Check BMP daily monitor electrolytes replete as needed. Keep magnesium above 2 and potassium above 4. ? Patient on the methimazole at home 5 mg daily. - wbc [id number]. possibly reactive? Monitor off abx for now. Check procalcitonin, sputum gm stain culture, in event of pt worsening, will check ct chest - continue home meds Full code DVT prophylaxis: Patient is on Eliquis. December 27, 2023. Blood pressure is currently improving. She is saturating well on room air. States that breathing is better than before. Plan to continue IV Lasix 40 mg today. Monitor urine output and kidney function to assess tolerability. Leukocytosis is currently resolved. Creatinine stable at 2.2. Transfer out of ICU to [facility] today. Troponin series reviewed, elevated baseline troponin and at 6 hours in the 70-80 range. This is improved compared to previous admission. Negative serial delta's and lack of chest pain or corresponding new EKG changes make ACS less likely. Attestations Medical Necessity Statement*: Clinically doing better. Less dyspneic. Continue IV diuresis today. Transfer out of ICU Coding Level of Care Code Acute Code for Chg Fwd Moderate MDM includes number and complexity of problems actively addressed during encounter, amount and/or complexity of data reviewed/ordered and described risk of complication, morbidity or mortality of management as documented Diagnoses Hypertensive emergency I16.1 Acute on chronic diastolic (congestive) heart failure I50.33 Diabetes mellitus E11.9 Stage 3a chronic kidney disease N18.31 Chronic kidney disease stage: stage 3 (moderate) Chronic kidney disease stage 3 subtype: stage 3a (GFR 45-59) Coronary artery disease involving [place] coronary artery of [place] heart without angina pectoris I25.10 Associated angina: without angina Coronary Disease-Associated Artery/Lesion type: [place] artery [place] vs. transplanted heart: [place] heart Dyslipidemia E78.5 Hypertensive urgency I16.0 S/P CABG (coronary artery bypass graft) Z95.1 Anxiety F41.9
[2023-12-27 19:02] LABS: Glucose Point of Care 119 mg/dL (70-110)
--- NOTE | 2023-12-27 19:14 | PC.NURSE ---
Transfer Patient transferred to [facility] 276[facility]2 via wheelchair. All belongings with patient upon move. Receiving nurse aware.
[2023-12-27] MEDS: atorvastatin 40 mg Tablet PO (20:18)
[2023-12-27 20:33] LABS: Glucose Point of Care 192 mg/dL (70-110)
[2023-12-28] VITALS (13 sets, daily range): BP systolic 130–153; BP diastolic 58–79; PULSE 79–100; RESP 16–20; TEMP 36.5–37.1; O2SAT 95–100
[2023-12-28] MEDS: ipratropium-albuterol 3 mL Neb INHALATION ×3 (01:55→13:22)
[2023-12-28 06:25] LABS: Alanine Aminotransferase 7 U/L (0-33); Alkaline Phosphatase 98 U/L (35-105); Anion Gap 18.6 (5-19); Aspartate Amino Transferase 17 U/L (0-32); Blood Urea Nitrogen 51 mg/dL (8-23); Calcium 8.9 mg/dL (8.5-10.5); Carbon Dioxide 19 mmol/L (22-29); Chloride 107 mmol/L (98-107); Creatinine Clr Calc Pharmacy 19.6587; Globulin 3.1 g/dL (1.3-4.6); Glucose 227 mg/dL (65-115); Osmolality Calculated 311 mOsm/kg (285-295); Potassium 4.6 mmol/L (3.5-5.1); Sodium 140 mmol/L (136-145); Total Bilirubin 0.3 mg/dL (0.15-1.2); Total Protein 6.1 g/dL (6.6-8.7)
[2023-12-28 06:42] LABS: Glucose Point of Care 232 mg/dL (70-110)
[2023-12-28] MEDS: apixaban 5 mg Tablet 2.5 MG PO (08:49)
[2023-12-28] MEDS: metoprolol tartrate 25 mg Tablet PO (08:49)
[2023-12-28] MEDS: sacubitril/valsartan 24-26 mg Tablet 2 EACH PO (08:50)
[2023-12-28] MEDS: insulin lispro 100 unit/1 mL SUBCUT ×2 (08:50→11:50)
[2023-12-28] MEDS: hyDRALAzine 50 mg Tablet PO (08:50)
[2023-12-28] MEDS: isosorbide mononitrate ER 60 mg Tablet PO (08:50)
[2023-12-28] MEDS: clopidogrel 75 mg Tablet PO (08:50)
[2023-12-28] MEDS: venlafaxine ER (24HR) 150 mg Capsule PO (08:50)
--- NOTE | 2023-12-28 09:43 | ECG_ITS ---
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 Measurements Intervals [place] Rate: 90 P: 37 MT: 175 QRS: -36 QRSD: 134 T: 85 QT: 368 QTc: 452 Interpretive Statements SINUS RHYTHM WITH OCCASIONAL VENTRICULAR PREMATURE COMPLEXES LEFT AXIS DEVIATION [QRS AXIS < -30] INTRAVENTRICULAR CONDUCTION DELAY [130+ ms QRS DURATION] LEFT VENTRICULAR HYPERTROPHY AND ST-T CHANGE [VOLTAGE CRITERIA PLUS ST/T ABNORMALITY] Compared to ECG 12/26/2023 11:07:45 Intraventricular conduction delay now present ST (T wave) deviation still present Electronically Signed On 12-28-2023 10:11:19 CDT by Tristin Goldstein M.D. [id number]
[2023-12-28] MEDS: nitroglycerin 0.4 mg sublingual Tablet SUBLINGUAL (10:01)
[2023-12-28 11:47] LABS: Glucose Point of Care 229 mg/dL (70-110)
--- NOTE | 2023-12-28 16:48 | P.DS_ITS ---
Discharge Providers Date of Admission: 12/26/23 12:10 Date of Discharge: December 28, 2023 Attending Provider at Admission: Jackie Oliver MD Attending Provider at Discharge: Misa Landry MD Primary Care Provider: Jocelyne Kirby Diagnoses at Discharge Discharge Diagnosis (1) Hypertensive emergency: Status: Acute (2) Acute on chronic diastolic (congestive) heart failure: Status: Acute (3) Diabetes mellitus: Status: Acute (4) Chronic kidney disease: Status: Inactive Qualifiers: Chronic kidney disease stage: stage 3 (moderate) Chronic kidney disease stage 3 subtype: stage 3a (GFR 45-59) Qualified Code(s): N18.31 - Chronic kidney disease, stage 3a (5) CAD (coronary artery disease): Status: Inactive Qualifiers: Associated angina: without angina Coronary Disease-Associated Artery/Lesion type: [place] artery [place] vs. transplanted heart: [place] heart Qualified Code(s): I25.10 - Atherosclerotic heart disease of [place] coronary artery without angina pectoris (6) Dyslipidemia: Status: Inactive (7) Hypertensive urgency: Status: Inactive (8) S/P CABG (coronary artery bypass graft): Status: Inactive Permanent problem details: twice, last in 2004 (9) Anxiety: Status: Inactive Reason for Visit Reason for Visit: SOB Hospital Course Hospital Course Romi Yuan is a 73 year old female with past medical history of CKD, pneumonia, skin cancer, hypothyroidism, anemia, ischemic cardiopathy, NSTEMI, congestive heart failure, diabetes mellitus, peripheral arterial disease, hypertension, dyslipidemia, anxiety who has had recurrent admissions in the past and was recently discharged on 11 November. She presented to the hospital with acute shortness of breath and dyspnea. She recently quit smoking in September 2023. She was placed on BiPAP by EMS on arrival to the ER. States that her oxygen saturation was down to 60% on her usual 2 L/min. Blood pressure was significantly elevated on arrival, she had received [address] mg of nitroglycerin on the way to the ER. She was improved after her blood pressure was controlled and after being on BiPAP. Overall clinical impression was that of acute on chronic systolic heart failure exacerbation as a result of hypertensive urgency. Hypertension most likely related to noncompliance with medications at home. She received diuresis with Lasix 40 mg IV daily. This has been transitioned to Lasix p.o. 40 mg twice daily at the time of discharge. She had leukocytosis upon admission, however this resolved quickly. Patient remained afebrile afterwards. No localizing signs or symptoms of infection. With IV diuresis and control of blood pressure, patient felt much improved on December 26 and today day of discharge December 28, 2023. Encouraged her to comply with all her medications at home. Aspirin was discontinued and patient instructed to take Plavix and Eliquis going forward. Patient wonders if she may need a CPAP or BiPAP for home use ; requested sleep study, may have underlying sleep apnea. Referral has been placed for the same, please review results with primary care physician. Trop series 80s range, however better when comapred to 09/2023 when trop was 2400. Low concern for ACS. No new EKg changes. Recent angiogram in 06/2023 which showed patent LOVETT to LAD. Patent left circumflex artery. SVG graft to RCA, SVG graft to OM and [place] RCA are known occluded. There is a small to medium size diagonal artery which has subtotal occlusion. This is chronic and has not changed since angiogram from last year. She was continued on Eliquis and Plavix. I am uncertain why she is on Eliquis 2.5 mg p.o. twice daily instead of 5 mg twice daily dosing. To be assessed by her warehouse hand as an outpatient. Patient had an additional admission in September 2023 at which time her troponins were trended up to 2800, patient declined any further angiograms as she had recently had 1 june with findings as above. Due to risk of RICARDO, further angiograms were avoided. She was medically managed for NSTEMI at the time. Currently she feels much improved at the time of discharge. Physical Exam Narrative: General: No acute distress, AO x3 HEENT: PERRLA, pupils bilaterally equal and reactive, pallors not present Chest: Normal vesicular breath sounds, no added sounds, equal good air entry bilaterally CVS: S1-S2 regular, no murmurs, no tachycardia, no gallops, no rubs Abdomen: Soft, nontender, no organomegaly, bowel sounds present Neuro: No focal deficits, no facial deformity, AO x3, power 5/5 in all limbs Extremities: No edema clubbing or cyanosis. Discharge Data Studies Completed and Pending Completed Studies During Hospitalization Category Date Time Status XR chest 1V portable [id number] Stat Exams 12/26/23 10:54 Completed Pending at discharge Category Date Time Status Blood Culture Stat Lab 12/26/23 17:15 Results Radiology Impressions Chest X-Ray 12/26/23 10:54 IMPRESSION: No acute cardiopulmonary findings. Laboratory Results WBC 10.51 10^3/uL (3.29-11.43) 12/27/23 03:06 RBC 3.67 10^6/uL (3.85-5.65) L 12/27/23 03:06 Hgb 8.70 g/dL (11.27-16.99) L 12/27/23 03:06 Hct 28.9 % (36-47) L 12/27/23 03:06 MCV 78.7 fl (85-98) L 12/27/23 03:06 MCH 23.7 pg (27-33) L 12/27/23 03:06 MCHC 30.1 g/dL (30-55) D 12/27/23 03:06 RDW 15.3 % (12.1-15.1) H 12/27/23 03:06 Plt Count 283 10^3/cmm (157-399) 12/27/23 03:06 MPV 10.8 fL (7.4-10.4) H 12/27/23 03:06 Neut % (Auto) 78.6 % 12/27/23 03:06 Lymph % (Auto) 13.5 % 12/27/23 03:06 [place] % (Auto) 6.9 % 12/27/23 03:06 Eos % (Auto) 0.2 % 12/27/23 03:06 Baso % (Auto) 0.2 % 12/27/23 03:06 Neut # (Auto) 8.27 10^3/uL (1.8-7.7) H 12/27/23 03:06 Lymph # (Auto) 1.4 10^3/uL (0.8-4.8) 12/27/23 03:06 [place] # (Auto) 0.7 10^3/uL (0.2-0.9) 12/27/23 03:06 Eos # (Auto) 0.0 10^3/uL (0.0-0.8) 12/27/23 03:06 Baso # (Auto) 0.0 10^3/uL (0.0-0.1) 12/27/23 03:06 Nucleated RBC % (auto) 0 % 12/27/23 03:06 Nucleated RBCs # 0.0 /100WBC 12/27/23 03:06 D-Dimer 0.99 ug/mLFEU (0-0.59) H 12/26/23 10:50 Specimen Type Arterial 12/27/23 04:23 Sample Site Brachial, right 12/27/23 04:23 ABG pH 7.43 (7.35-7.45) 12/27/23 04:23 ABG pCO2 32.1 mmHg (35-45) L 12/27/23 04:23 ABG pO2 93.3 mmHg (80.0-100.0) 12/27/23 04:23 ABG PO2/FiO2 Ratio 373 12/27/23 04:23 ABG HCO3 21.0 mmol/L (22-26) L 12/27/23 04:23 ABG Base Excess -2.9 mmol/L (-2.0-2.0) L 12/27/23 04:23 Rene Test Pos 12/27/23 04:23 Hematocrit 26.0 % (37-47) L 12/27/23 04:23 Hgb O2 Saturation 88.7 % (95-100) L 12/26/23 10:54 Carboxyhemoglobin 2.4 %THgb (0.4-20.1) 12/26/23 10:54 Methemoglobin 0.5 % (0.4-1.5) 12/26/23 10:54 Total Hemoglobin 9.3 g/dL (12-16) L 12/26/23 10:54 O2 Delivery Device Bipap 12/27/23 04:23 O2 Liters/Min 2.0 % 12/26/23 10:54 FiO2 25.0 % 12/27/23 04:23 Biometric Screener ID [email or web address] 12/27/23 04:23 Sodium 140 mmol/L (136-145) 12/28/23 05:42 Potassium 4.6 mmol/L (3.5-5.1) 12/28/23 05:42 Chloride 107 mmol/L (98-107) 12/28/23 05:42 Carbon Dioxide 19 mmol/L (22-29) L 12/28/23 05:42 Anion Gap 18.6 (5-19) 12/28/23 05:42 BUN 51 mg/dL (8-23) H 12/28/23 05:42 Creatinine 2.1 mg/dL (0.5-0.9) H 12/28/23 05:42 GFR Calculation Not Reportable 12/28/23 05:42 Glucose 227 mg/dL (65-115) H 12/28/23 05:42 POC Glucose 229 mg/dL (70-110) H 12/28/23 11:44 Calculated Osmolality 311 mOsm/kg (285-295) H 12/28/23 05:42 Calcium 8.9 mg/dL (8.5-10.5) 12/28/23 05:42 Magnesium 2.2 mg/dL (1.7-2.3) 12/27/23 03:06 Total Bilirubin 0.3 mg/dL (0.15-1.2) 12/28/23 05:42 AST 17 U/L (0-32) 12/28/23 05:42 ALT 7 U/L (0-33) 12/28/23 05:42 Alkaline Phosphatase 98 U/L (35-105) 12/28/23 05:42 Troponin T Baseline 82 ng/L (0-10) H 12/26/23 10:50 Troponin T 120 Minute 84.67 ng/L (0-10) H 12/26/23 13:26 Delta Troponin T 2.67 ABS# (0-10) 12/26/23 13:26 Troponin T Hi Sens 6Hr 79.03 ng/L (0-10) H 12/26/23 17:06 Troponin T Hi Sens 6Hr Delta -2.97 ng/L (0-12) L 12/26/23 17:06 NT-Pro-B Natriuret Pep 13208 pg/mL (0-125) H 12/26/23 10:50 Total Protein 6.1 g/dL (6.6-8.7) L 12/28/23 05:42 Albumin 3.0 g/dL (3.5-5.2) L 12/28/23 05:42 Globulin 3.1 g/dL (1.3-4.6) 12/28/23 05:42 Procalcitonin 0.13 ng/mL (0-0.5) 12/26/23 10:50 Vitals Last Vital Signs Temp 98.4 F 12/28/23 14:50 Pulse 79 12/28/23 14:50 Resp 16 12/28/23 14:50 BP 151/71 12/28/23 14:50 Pulse Ox 95 12/28/23 14:50 O2 Del Method Nasal Cannula 12/28/23 13:23 O2 Flow Rate 1 12/28/23 13:23 FiO2 25 12/28/23 03:30 Discharge Plan Discharge Patient Disposition: Home Condition: Stable Prescriptions: Continued Anoro Ellipta 62.5-25 mcg/actuation blister with device 1 inh INHALATION DAILY venlafaxine [Effexor XR] 150 mg capsule,extended release 24hr See Rx Instructions .ROUTE .COMPLEX Rx Instructions: TAKE 150 MG BY MOUTH AT BEDTIME ALONG WITH 75 MG Jardiance 10 mg tablet 10 mg PO DAILY apixaban 2.5 mg tablet 2.5 mg PO BID Qty: 180 2RF methimazole 5 mg tablet 5 mg PO DAILY Qty: 30 3RF tizanidine 4 mg tablet 4 mg PO BEDTIME nitroglycerin [Nitrostat] 0.4 mg Tablet, Sublingual 0.4 mg SUBLINGUAL Q5M PRN (Reason: Chest Pain) Rx Instructions: do not exceed 3 doses per episode insulin lispro [Humalog KwikPen Insulin] 100 unit/mL Insulin Pen 10 unit SUBCUT TID albuterol sulfate [Ventolin HFA] 90 mcg/actuation Hfa Aerosol Inhaler 2 puff INHALATION QID PRN (Reason: Shortness Of Breath) calcitriol 0.25 mcg capsule See Rx Instructions .ROUTE .COMPLEX Rx Instructions: TAKE 0.25 mcg orally 3 TIMES WEEKLY ON WEDNESDAY, WEDNESDAY, AND WEDNESDAY IN THE MORNING. metoprolol succinate 50 mg tablet extended release 24 hr 50 mg PO DAILY potassium chloride 10 mEq tablet extended release 10 meq PO DAILY Qty: 20 0RF acetaminophen 500 mg Tablet 500 mg PO BEDTIME ipratropium-albuterol 0.5 mg-3 mg(2.5 mg base)/3 mL solution for nebulization 3 ml INHALATION QID PRN (Reason: Shortness Of Breath) clopidogrel [Plavix] 75 mg tablet 75 mg PO DAILY Qty: 60 0RF atorvastatin 40 mg tablet 40 mg PO BEDTIME venlafaxine 75 mg capsule,extended release 24hr See Rx Instructions .ROUTE .COMPLEX Rx Instructions: TAKE 75 MG BY MOUTH AT BEDTIME ALONG WITH 150 MG acitretin 10 mg capsule 10 mg PO QAM insulin glargine [Lantus Solostar U-100 Insulin] 100 unit/mL (3 mL) insulin pen 20 unit SUBCUT DAILY ergocalciferol (vitamin D2) [Vitamin D2] 1,250 mcg (50,000 unit) capsule 50,000 unit PO Q7D Rx Instructions: WEDNESDAY EVENINGS isosorbide mononitrate 60 mg tablet extended release 24 hr 60 mg PO BID FeroSul 325 mg (65 mg iron) tablet 325 mg PO Q12H Entresto 49-51 mg tablet 1 tab PO BID Changed furosemide 40 mg tablet 40 mg PO BID Qty: 60 0RF Rx Instructions: TAKE 1 TABLET BY MOUTH EVERY MORNING AND ONE-HALF EVERY EVENING. hydralazine 50 mg tablet 100 mg PO TID Qty: 7 0RF Discontinued aspirin 81 mg Tablet,Delayed Release (Dr/Ec) 81 mg PO QAM No Action (DME) Accu-Chek Ana M Plus test strp Strip See Rx Instructions .ROUTE .MEDSUPPLY Qty: 120 3RF Rx Instructions: check blood glucose four times a day Discharge Orders: Discharge Order (Routine); Ordered 12/28/23 Ordered By: Misa Landry Other Ambulatory Orders: Sleep Study/Titration (Routine) Timeframe: 1 Week Facility: [facility] - Location: [facility] Ordered By: Misa Landry Referrals: Jocelyne Kirby PA [Primary Care Provider] - 01/04/24 10:40 am Discharge Diet: Cardiac Discharge Activity: Increase activity as tolerated Patient Instructions: COPD (Chronic Obstructive Pulmonary Disease) (GEN), Opioid Safety Discharge Attestations Time Spent in Discharge Care*: greater than 30 min Status at Discharge: Cognitive status at discharge: cognitively intact , Behavioral status at discharge: cooperative , Quality Metrics Clinical Quality Measures [ No reported AMI, CVA or VTE this stay] Coding Level of Care Code Acute Code for Chg Fwd Diagnoses Hypertensive emergency I16.1 Acute on chronic diastolic (congestive) heart failure I50.33 Diabetes mellitus E11.9 Stage 3a chronic kidney disease N18.31 Chronic kidney disease stage: stage 3 (moderate) Chronic kidney disease stage 3 subtype: stage 3a (GFR 45-59) Coronary artery disease involving [place] coronary artery of [place] heart without angina pectoris I25.10 Associated angina: without angina Coronary Disease-Associated Artery/Lesion type: [place] artery [place] vs. transplanted heart: [place] heart Dyslipidemia E78.5 Hypertensive urgency I16.0 S/P CABG (coronary artery bypass graft) Z95.1 Anxiety F41.9
== END 2023-12-28 15:15 | disposition home or self-care (01) | DRG 291 ==
LOC: ER 12:01 → ICU 12:24 → MEDSURG 12-27 19:02
PROVIDERS: Admitting Provider Internal Medicine; Emergency Provider Emergency Medicine; PCP Physician Assistant; Visit Provider Student in an Organized Health Care Education/Training Program
DX: I13.0 Hypertensive heart and chronic kidney disease with heart failure and stage 1 through stage 4 chronic kidney disease, or unspecified chronic kidney disease (principal); I50.23 Acute on chronic systolic (congestive) heart failure; E11.22 Type 2 diabetes mellitus with diabetic chronic kidney disease; N18.31 Chronic kidney disease, stage 3a; I16.0 Hypertensive urgency; Z87.01 Personal history of pneumonia (recurrent); Z85.828 Personal history of other malignant neoplasm of skin; E03.9 Hypothyroidism, unspecified; D63.1 Anemia in chronic kidney disease; I25.5 Ischemic cardiomyopathy; I25.2 Old myocardial infarction; E11.51 Type 2 diabetes mellitus with diabetic peripheral angiopathy without gangrene; E78.5 Hyperlipidemia, unspecified; F41.9 Anxiety disorder, unspecified; Z99.81 Dependence on supplemental oxygen; Z87.891 Personal history of nicotine dependence; Z79.02 Long term (current) use of antithrombotics/antiplatelets; Z79.82 Long term (current) use of aspirin; Z79.4 Long term (current) use of insulin; I25.10 Atherosclerotic heart disease of native coronary artery without angina pectoris; Z95.5 Presence of coronary angioplasty implant and graft; Z95.1 Presence of aortocoronary bypass graft; Z86.16 Personal history of COVID-19; Z91.148 Patient's other noncompliance with medication regimen for other reason; J44.9 Chronic obstructive pulmonary disease, unspecified
CPT/HCPCS: 36415; 36416; 36600; 71045; 80048; 80053; 82803; 82805; 82962; 83735; 83880; 84145; 84484; 85025; 85378; 87040; 93005; 94640; 94660; 94664; 96372; 96374; 96376; 99285; J1815; J1940

== ENCOUNTER 2023-12-29 09:48 | Inpatient (IN) | payer MEDICARE, MEDICAID, SELFPAY ==
[2023-12-29] VITALS (46 sets, daily range): BP systolic 129–183; BP diastolic 61–119; PULSE 78–122; RESP 12–25; TEMP 35.7–37; O2SAT 95–100; BMI 24.7; BMI 25.2
--- NOTE | 2023-12-29 09:53 | ECG_ITS ---
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 Measurements Intervals [place] Rate: 80 P: 77 VA: 165 QRS: -44 QRSD: 109 T: 117 QT: 378 QTc: 437 Interpretive Statements SINUS RHYTHM WITH MARKED SINUS ARRHYTHMIA LEFT AXIS DEVIATION [QRS AXIS < -30] ST DEVIATION AND MODERATE T-WAVE ABNORMALITY, CONSIDER LATERAL ISCHEMIA [-0.1+ mV T-WAVE IN I/aVL/V5/V6] Compared to ECG 12/28/2023 09:43:14 T-wave abnormality now present Possible ischemia now present Ventricular premature complex(es) no longer present Intraventricular conduction delay no longer present Left ventricular hypertrophy no longer present ST (T wave) deviation no longer present Electronically Signed On 12-29-2023 10:30:45 CDT by Tristin Goldstein M.D. [id number]
--- NOTE | 2023-12-29 09:53 | XR_ITS ---
WS: [id number] PORTABLE CHEST HISTORY: Shortness of breath COMPARISON: 12/26/2023 Prior CABG. Lungs are clear and well expanded. Nipple shadow posterior to the LEFT heart. No pleural effusion or pneumothorax. Cardiac size: Mild cardiomegaly. Mediastinum/Aorta: Mild atherosclerosis aorta. No osseous abnormality seen. XR/XR chest 1V portable [id number] IMPRESSION: 1. Status post CABG. 2. No pneumonia.
[2023-12-29] MEDS: methylPREDNISolone sod succ 125 mg/2 mL INJ IVP (10:04)
[2023-12-29 10:10] LABS: Basophils % 0.4 %; Eosinophils # 0.5 10^3/uL (0.0-0.8); Eosinophils % 5.9 %; Hematocrit 22.9 % (36-47); Lymphocytes # 2.3 10^3/uL (0.8-4.8); Lymphocytes % 29.5 %; Mean Corpuscular HGB Conc 30.1 g/dL (30-55); Mean Corpuscular Hemoglobin 23.9 pg (27-33); Mean Corpuscular Volume 79.2 fl (85-98); Monocytes # 0.6 10^3/uL (0.2-0.9); Monocytes % 7.3 %; Neutrophils # 4.46 10^3/uL (1.8-7.7); Neutrophils % 56.6 %; Nucleated Red Blood Cells % 0 %; Platelet Count 284 10^3/cmm (157-399); Red Blood Count 2.89 10^6/uL (3.85-5.65); Red Cell Distribution Width 15.8 % (12.1-15.1); White Blood Count 7.86 10^3/uL (3.29-11.43)
[2023-12-29 10:12] LABS: ABG PCO2 33.1 mmHg (35-45); ABG PH Result 7.39 (7.35-7.45); Alveolar-Arterial Oxygen Gradi 3.1 mmHg (5-10); Arterial Blood Gas Hematocrit 22.3 % (37-47); Base Excess ABG -4.8 mmol/L (-2.0-2.0); Blood Gas Allen Test Pos; Blood Gas Operator Identificat WALCI; Blood Gas Sample Site Brachial, left; Blood Gas Sample Type Arterial; Carboxyhemoglobin 2.4 %THgb (0.4-20.1); HCO3 ABG 19.8 mmol/L (22-26); HGB O2 Sat 94.6 % (95-100); Ionized Calcium Level - ABG 1.3 mmol/L (1.1-1.4); Methemoglobin 0.4 % (0.4-1.5); Oxygen Device ROOM AIR; Oxygen Saturation ABG 97.4; PO2 ABG 84.4 mmHg (80.0-100.0); PO2 FiO2 Ratio Arterial Blood 401; Potassium Level - ABG 3.9 mmol/L (3.5-5.0); Total Hemoglobin 7.3 g/dL (12-16)
[2023-12-29] MEDS: albuterol 2.5 mg/3 mL Neb INHALATION (10:19)
[2023-12-29] MEDS: ipratropium-albuterol 3 mL Neb INHALATION ×3 (10:19→19:58)
[2023-12-29 10:38] LABS: Alanine Aminotransferase 12 U/L (0-33); Albumin Level 3.3 g/dL (3.5-5.2); Alkaline Phosphatase 89 U/L (35-105); Anion Gap 16.2 (5-19); Aspartate Amino Transferase 22 U/L (0-32); Blood Urea Nitrogen 63 mg/dL (8-23); Calcium 8.8 mg/dL (8.5-10.5); Carbon Dioxide 19 mmol/L (22-29); Chloride 107 mmol/L (98-107); Creatinine Clr Calc Pharmacy 19.9097; Globulin 3.1 g/dL (1.3-4.6); Glucose 171 mg/dL (65-115); Osmolality Calculated 308 mOsm/kg (285-295); Potassium 4.2 mmol/L (3.5-5.1); Sodium 138 mmol/L (136-145); Total Bilirubin 0.2 mg/dL (0.15-1.2); Total Protein 6.4 g/dL (6.6-8.7)
--- NOTE | 2023-12-29 10:49 | ED_ITS ---
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 She says she suddenly started feeling very short of breath this morning and so she called an ambulance because she apparently goes into respiratory failure very quickly. She had some chest tightness. No altered mental status. No focal motor deficits. Review of Systems 2 Narrative: Constitutional symptoms: Negative except as documented in HPI. Skin symptoms: Negative except as documented in HPI. Eye symptoms: Negative except as documented in HPI. ENMT symptoms: Negative except as documented in HPI. Respiratory symptoms: Negative except as documented in HPI. Cardiovascular symptoms: Negative except as documented in HPI. Gastrointestinal symptoms: Negative except as documented in HPI. Genitourinary symptoms: Negative except as documented in HPI. Musculoskeletal symptoms: Negative except as documented in HPI. Neurologic symptoms: Negative except as documented in HPI. Psychiatric symptoms: Negative except as documented in HPI. Endocrine symptoms: Negative except as documented in HPI. PFSH ED 2 PFSH: Medical History (Updated 12/29/23 @ 11:15 by Anamika Camarena MD) Diabetes mellitus Congestive heart failure Community acquired pneumonia Hypertension, uncontrolled Stable angina Anemia Ischemic cardiomyopathy Atherosclerotic heart disease of iliamna coronary artery with other forms of angina pectoris CHF exacerbation Acute non-ST elevation myocardial infarction (NSTEMI) Pulmonary embolism Congestive heart failure Acute respiratory failure with hypoxia Acute exacerbation of CHF (congestive heart failure) PAD (peripheral artery disease) Dyslipidemia HTN (hypertension) NSTEMI (non-ST elevated myocardial infarction) Eczema CAD (coronary artery disease) Clostridioides difficile infection (07/2022) Insomnia CHF (congestive heart failure) Chronic kidney disease Hypertensive urgency Pneumonia due to COVID-19 virus (~06/2022) Colon polyps History of skin cancer Hyperthyroidism Graves disease History of CVA (cerebrovascular accident) COPD (chronic obstructive pulmonary disease) Anxiety Carotid arterial disease ASHD (arteriosclerotic heart disease) Surgical History (Updated 12/29/23 @ 00:01 by TIERA Manriquez) Status post insertion of iliac artery stent History of coronary artery stent placement History of cardiac catheterization 06/25/2022 Left main artery: Short, patent. Left circumflex artery: Has patent stents, no significant stenosis. LAD:Occluded in the midsegment. RCA: Known occluded. Not injected. SVG to diagonal artery and SVG to RCA are known occluded. Not injected. LOVETT to LAD: Patent. Coronary anatomy unchanged compared to before. History of renal stent Hx of local excision of skin lesion (09/16/20) Left forearm x2 Status post colonoscopy (09/16/20) S/P hysterectomy with oophorectomy S/P cholecystectomy S/P CABG (coronary artery bypass graft) twice, last in 2004 History of endovascular stent graft for abdominal aortic aneurysm (AAA) S/P cataract surgery S/P skin and subcutaneous tissue surgery Family History Sister Mark's disease Sister No problems noted. Mother No problems noted. Other Anesthesia complication Social History Smoking and tobacco/nicotine status: former use of tobacco/nicotine Alcohol intake: current Alcohol intake frequency: holidays/special occasions only Substance/Drug Use: current Physical Exam 2 Narrative: EXAM NARRATIVE: General: Alert, no acute distress. Skin: Warm, dry. Head: Normocephalic, atraumatic. Neck: Supple, trachea midline. Eye: Extraocular movements are intact. Ears, nose, mouth and throat: Oral mucosa moist. Cardiovascular: Regular rate and rhythm, Normal peripheral perfusion. Respiratory: some expiratory wheeze, mild increased wob, breath sounds are equal, Symmetrical chest wall expansion. Gastrointestinal: Soft, Nontender, Non distended, Normal bowel sounds. Musculoskeletal: Normal ROM, no deformity. Neurological: Alert and oriented to person, place, time, and situation, No focal neurological deficit observed. Psychiatric: Cooperative, appropriate mood & affect. Course 2 Vital Signs: Vital signs: Vital Signs Temperature 98.4 F 12/29/23 09:52 Pulse Rate 87 12/29/23 10:19 Respiratory Rate 16 12/29/23 10:02 Blood Pressure 135/61 12/29/23 09:52 Pulse Oximetry 100 12/29/23 10:02 Oxygen Delivery Me thod Room Air 12/29/23 10:02 Oxygen Flow Rate 1 12/29/23 09:52 MDM - SOB/Dyspnea Medical Decision Making Differential diagnosis for patient with shortness of breath includes but is not limited to and based on the above HPI, review of systems and physical exam: Pneumonia. Bronchitis. Asthma or COPD with acute exacerbation. Acute coronary syndrome / [place]. Pulmonary embolism. Anxiety. Congestive heart failure. Viral infections including influenza and Covid-19. Atrial fibrillation. Anxiety. Pleural effusion. Pneumothorax. Workup: Lab work, chest X-ray and EKG ordered to evaluate, rule in and rule out above pathologies EKG: Time 956. Rate 80. Normal sinus rhythm, nonspecific ST changes, no ectopy, normal SD & QRS intervals, This was reviewed and interpreted by myself the ER physician at 10 00 AM Chest x-ray: Cardiomegaly, sternotomy wires, no acute heart failure. No acute process. No infiltrate. No pneumothorax. This was reviewed and interpreted by myself the ER physician. Lab Review: Laboratory results were reviewed and interpreted by myself the emergency room physician. White count is 7.9. Hemoglobin is 6.9 which is significantly changed from recent. She was 8.72 days ago. BUN and creatinine are up at 63 and 2.0. Her baseline appears to be more in the 30s for her BUN and around 1.7-2 for her creatinine. This indicates that she likely has had an upper GI bleed given the much higher BUN. I reviewed the patient's medical record. Reexamination: Patient remained stable. Her blood pressure has been normotensive and her heart rate has been normal as well. O2 sats are 100% on her home 2 L nasal cannula. No increased work of breathing. No altered mental status. She does report that she has been having black stools. She reports she is on Plavix and Eliquis. She is on sure why she is on the Eliquis. She does not think she has A-fib and she does not believe she is ever had a blood clot. Assessment and plan: Upper GI bleed Anemia Chronic anticoagulation Chronic hypoxemic respiratory failure Congestive heart failure COPD -80 mg IV Protonix ? 2 units PRBCs were ordered ? Patient is stable on her home O2. -No evidence of any exacerbation of her heart failure -No acute wheezing or COPD exacerbation -I discussed the patient with the hospitalist on-call who is admitting the patient. - Discussed findings and plan with patient. Answered any questions. - All laboratory values were reviewed and interpreted personally by myself, the ER physician - All imaging was reviewed and interpreted personally by myself, the ER physician. - Evaluation and treatment of this problem were appropriate in the emergency setting -I spent a total of >35 minutes of critical care time managing the patient, independent of any other practitioner. -The time involved in the performance of separately reportable procedures was not counted towards critical care time. Lab Data 12/29/23 09:31 12/29/23 09:31 Labs/Radiology: Radiology Impressions Chest X-Ray 12/29/23 09:53 IMPRESSION: 1. Status post CABG. 2. No pneumonia. Laboratory Results WBC 7.86 10^3/uL (3.29-11.43) 12/29/23 09:31 RBC 2.89 10^6/uL (3.85-5.65) L 12/29/23 09:31 Hgb 6.90 g/dL (11.27-16.99) L 12/29/23 09:31 Hct 22.9 % (36-47) L 12/29/23 09:31 MCV 79.2 fl (85-98) L 12/29/23 09:31 MCH 23.9 pg (27-33) L 12/29/23 09:31 MCHC 30.1 g/dL (30-55) 12/29/23 09:31 RDW 15.8 % (12.1-15.1) H 12/29/23 09:31 Plt Count 284 10^3/cmm (157-399) 12/29/23 09:31 MPV 11.0 fL (7.4-10.4) H 12/29/23 09:31 Neut % (Auto) 56.6 % 12/29/23 09:31 Lymph % (Auto) 29.5 % 12/29/23 09:31 [place] % (Auto) 7.3 % 12/29/23 09:31 Eos % (Auto) 5.9 % 12/29/23 09:31 Baso % (Auto) 0.4 % 12/29/23 09:31 Neut # (Auto) 4.46 10^3/uL (1.8-7.7) 12/29/23 09:31 Lymph # (Auto) 2.3 10^3/uL (0.8-4.8) 12/29/23 09:31 [place] # (Auto) 0.6 10^3/uL (0.2-0.9) 12/29/23 09:31 Eos # (Auto) 0.5 10^3/uL (0.0-0.8) 12/29/23 09:31 Baso # (Auto) 0.0 10^3/uL (0.0-0.1) 12/29/23 09:31 Nucleated RBC % (auto) 0 % 12/29/23 09:31 Nucleated RBCs # 0.0 /100WBC 12/29/23 09:31 Specimen Type Arterial 12/29/23 10:05 Sample Site Brachial, left 12/29/23 10:05 ABG pH 7.39 (7.35-7.45) 12/29/23 10:05 ABG pCO2 33.1 mmHg (35-45) L 12/29/23 10:05 ABG pO2 84.4 mmHg (80.0-100.0) 12/29/23 10:05 ABG PO2/FiO2 Ratio 401 12/29/23 10:05 ABG HCO3 19.8 mmol/L (22-26) L 12/29/23 10:05 ABG O2 Saturation 97.4 12/29/23 10:05 ABG Base Excess -4.8 mmol/L (-2.0-2.0) L 12/29/23 10:05 Rene Test Pos 12/29/23 10:05 A-a O2 Gradient 3.1 mmHg (5-10) L 12/29/23 10:05 Hematocrit 22.3 % (37-47) L 12/29/23 10:05 Hgb O2 Saturation 94.6 % (95-100) L 12/29/23 10:05 Carboxyhemoglobin 2.4 %THgb (0.4-20.1) 12/29/23 10:05 Methemoglobin 0.4 % (0.4-1.5) 12/29/23 10:05 Total Hemoglobin 7.3 g/dL (12-16) L 12/29/23 10:05 Sodium 140.0 mmol/L (131-143) 12/29/23 10:05 Potassium 3.9 mmol/L (3.5-5.0) 12/29/23 10:05 Glucose 164.0 mg/dL (70-115) H 12/29/23 10:05 Ionized Calcium 1.3 mmol/L (1.1-1.4) 12/29/23 10:05 O2 Delivery Device Room air 12/29/23 10:05 FiO2 21.0 % 12/29/23 10:05 Tamale Machine Feeder ID [place] 12/29/23 10:05 Sodium 138 mmol/L (136-145) 12/29/23 09:31 Potassium 4.2 mmol/L (3.5-5.1) 12/29/23 09:31 Chloride 107 mmol/L (98-107) 12/29/23 09:31 Carbon Dioxide 19 mmol/L (22-29) L 12/29/23 09:31 Anion Gap 16.2 (5-19) 12/29/23 09:31 BUN 63 mg/dL (8-23) H 12/29/23 09:31 Creatinine 2.0 mg/dL (0.5-0.9) H 12/29/23 09:31 GFR Calculation Not Reportable 12/29/23 09:31 Glucose 171 mg/dL (65-115) H 12/29/23 09:31 Calculated Osmolality 308 mOsm/kg (285-295) H 12/29/23 09:31 Calcium 8.8 mg/dL (8.5-10.5) 12/29/23 09:31 Total Bilirubin 0.2 mg/dL (0.15-1.2) 12/29/23 09:31 AST 22 U/L (0-32) 12/29/23 09:31 ALT 12 U/L (0-33) 12/29/23 09:31 Alkaline Phosphatase 89 U/L (35-105) 12/29/23 09:31 Total Protein 6.4 g/dL (6.6-8.7) L 12/29/23 09:31 Albumin 3.3 g/dL (3.5-5.2) L 12/29/23 09:31 Globulin 3.1 g/dL (1.3-4.6) 12/29/23 09:31 Crossmatch See Detail 12/29/23 11:15 All radiology interpretation(s) finalized by discharge Discharge Plan Discharge Patient Disposition: Placed in Observation Clinical Impression: Acute upper GI bleed, Congestive heart failure, Anemia, Chronic anticoagulation Coding Level of Care Code ED Magnetic Tester for Kiran Holland
[2023-12-29] MEDS: pantoprazole 40 mg SDV 80 MG IVP (11:43)
[2023-12-29 11:49] LABS: NT Pro B Type Natriuretic Pept > 70000 pg/mL (0-125)
--- NOTE | 2023-12-29 11:51 | P.HP_ITS ---
Providers/Chief Complaint 2 Primary Care Provider: Jocelyne Kirby Chief Complaint: SOB History of Present Illness Romi Yuan is a 73 year old female discharged from the hospital just yesterday after being treated for hypertensive urgency and flash pulmonary edema, acute on chronic heart failure exacerbation. She carries a past medical history of coronary artery disease, last time NSTEMI in September 2023 at which time she had declined any intervention due to concern for RICARDO. She was managed medically.. Last angiogram was in June of this year which had showed patent left circumflex artery. SVG graft to RCA, SVG graft to OM and robinson RCA are known occluded. No stents were placed at that time. Patient states she has previously had multiple stents to the heart and also apparently has peripheral artery disease with stents in the renal artery and abdominal aorta per her description. None of these interventions were in the past year. After discharging home patient states that she continued to feel very weak. Overnight she developed 2 episodes. She noted black tarry stools which were flushed away. She had no appetite and developed an epigastric abdominal discomfort. She has only been sipping on ice water, last time she had anything orally was at 4:30 AM. She presented to the ER with these complaints.. Hemoglobin was noted to be at 6.9, dropped from 8.9 previously during last admission. Patient states that she was having no vomiting. No past history of known GI bleeding. Last colonoscopy dates back to 2020 at which time there was noted to be a 7 mm polyp in the descending colon which was removed with a hot snare. Note made of mild diverticulosis and internal hemorrhoids at that time. Review of Systems 2 General: Reports: 10 or more systems reviewed and unremarkable except in HPI and below Const: Denies: fever(s), chills or body aches Eyes: Denies: change in vision, blurry vision or photophobia ENMT: Reports: hoarseness; Denies: throat pain, enlarged tonsils, odynophagia or nasal congestion Card: Denies: chest pain, palpitations, irregular heart rhythm, edema, swelling of feet/ankles, lightheadedness, pre-syncope, dyspnea on exertion or orthopnea Resp: Denies: dyspnea, productive cough, non-productive cough, wheezing, stridor, pain on inspiration, change in phlegm color, hemoptysis or chest congestion GI: Denies: abdominal pain, nausea, vomiting, hematemesis, coffee ground emesis, dysphagia, heartburn, diarrhea, constipation, GI cramping, change in stool character, hematochezia or melena : Denies: flank pain, difficulty voiding, dysuria, urinary frequency, urinary urgency, urinary hesitancy or hematuria Musc: Denies: neck pain, back pain, extremity pain, joint swelling, joint warmth or deformity Neuro: Denies: headache(s), numbness in extremities, weakness in extremities, sensory changes, difficulty walking, frequent falls, dizziness, vertigo, behavioral changes, Slurred speech present or seizure-like activity Psych: Denies: anxiety, depression, suicidal ideation or homicidal ideation Endo: Denies: polyuria, polydipsia, tired all the time, cold intolerance or hot flashes Alonzo/Lymph: Denies: easy bruising or easy bleeding Medications/Allergies Home Medications Medication Instructions Recorded Confirmed Last Taken Type umeclidinium 62.5 mcg-vilanterol 1 inh inhalation DAILY 07/20/19 12/27/23 12/25/23 History 25 mcg/actuation powdr for inhalation (Anoro Ellipta) venlafaxine 150 mg See Rx Instructions .Route .COMPLEX 07/20/19 12/27/23 12/25/23 History capsule,extended release 24 hr (Effexor XR) methimazole 5 mg tablet 5 mg PO DAILY #30 tabs 03/11/20 12/27/23 12/25/23 Rx blood sugar diagnostic (Accu-Chek #120 ea 06/23/21 12/27/23 Unknown Rx Ana M Plus test strips) clopidogrel 75 mg tablet (Plavix) 75 mg PO DAILY #60 tabs 06/15/22 12/27/23 12/25/23 Rx acitretin 10 mg capsule 10 mg PO QAM 06/19/22 12/27/23 12/25/23 History atorvastatin 40 mg tablet 40 mg PO BEDTIME 06/19/22 12/27/23 12/25/23 History venlafaxine 75 mg capsule,extended See Rx Instructions .Route .COMPLEX 06/19/22 12/27/23 12/25/23 History release 24 hr albuterol sulfate 90 mcg/actuation 2 puff inhalation QID PRN 07/09/22 12/27/23 09/11/23 History aerosol inhaler (Ventolin HFA) Shortness Of Breath insulin lispro 100 unit/mL 10 unit SUBCUT TID 07/09/22 12/27/23 12/25/23 History subcutaneous pen (Humalog KwikPen (U-100) Insulin) nitroglycerin 0.4 mg sublingual 0.4 mg sublingual Q5M PRN Chest 07/09/22 12/27/23 02/26/23 History tablet (Nitrostat) Pain tizanidine 4 mg tablet 4 mg PO BEDTIME 07/09/22 12/27/23 12/25/23 History empagliflozin 10 mg tablet 10 mg PO DAILY 09/07/22 12/27/23 12/25/23 History (Jardiance) apixaban 2.5 mg tablet 2.5 mg PO BID #180 tabs 05/19/23 12/27/23 12/25/23 Rx calcitriol 0.25 mcg capsule See Rx Instructions .Route .COMPLEX 06/17/23 12/27/23 12/24/23 History ergocalciferol (vitamin D2) 1,250 50,000 unit PO Q7D 09/03/23 12/27/23 12/22/23 History mcg (50,000 unit) capsule (Vitamin D2) insulin glargine 100 unit/mL (3 20 unit SUBCUT DAILY 09/03/23 12/27/23 09/10/23 History mL) subcutaneous pen (Lantus Solostar U-100 Insulin) metoprolol succinate 50 mg 50 mg PO DAILY 11/12/23 12/27/23 12/25/23 History tablet,extended release 24 hr potassium chloride 10 mEq 10 meq PO DAILY #20 tabs 11/12/23 12/27/23 12/25/23 Rx tablet,extended release acetaminophen 500 mg tablet 500 mg PO BEDTIME 11/29/23 12/27/23 12/25/23 History ipratropium 0.5 mg-albuterol 3 mg 3 ml inhalation QID PRN Shortness 11/29/23 12/27/23 Unknown History (2.5 mg base)/3 mL nebulization Of Breath soln ferrous sulfate 325 mg (65 mg 325 mg PO Q12H 12/27/23 12/27/23 12/25/23 History iron) tablet (FeroSul) isosorbide mononitrate 60 mg 60 mg PO BID 12/27/23 12/27/23 12/25/23 History tablet,extended release 24 hr sacubitril 49 mg-valsartan 51 mg 1 tab PO BID 12/27/23 12/27/23 12/25/23 History tablet (Entresto) furosemide 40 mg tablet 40 mg PO BID #60 tabs 12/28/23 12/27/23 12/25/23 Rx hydralazine 50 mg tablet 100 mg (2 x 50 mg) PO TID Systolic 12/28/23 12/27/23 Unknown Rx blood pressure more than 180 mmHg #7 tabs Allergies Allergy/AdvReac Type Severity Reaction Status Date / Time cefuroxime [From Ceftin] Allergy ALGY-Rash Verified 12/26/23 10:54 cephalexin [From Keflex] Allergy ALGY-Rash Verified 12/26/23 10:54 hydroxyzine [From Vistaril] Allergy ALGY-Anaphy Verified 12/26/23 10:54 laxis Penicillins Allergy ALGY-Redness Verified 12/26/23 10:54 of Skin prochlorperazine Allergy ALGY-Anaphy Verified 12/26/23 10:54 [From Compazine] laxis promethazine [From Phenergan] Allergy ALGY-Anaphy Verified 12/26/23 10:54 laxis venom-honey bee Allergy ALGY-Anaphy Verified 12/26/23 10:54 laxis simvastatin [From Zocor] AdvReac ADR-Heartbu Verified 12/26/23 10:54 rn PFSH Acute 2 PFSH: Medical History Diabetes mellitus Congestive heart failure Community acquired pneumonia Hypertension, uncontrolled Stable angina Anemia Ischemic cardiomyopathy Atherosclerotic heart disease of robinson coronary artery with other forms of angina pectoris CHF exacerbation Acute non-ST elevation myocardial infarction (NSTEMI) Pulmonary embolism Congestive heart failure Acute respiratory failure with hypoxia Acute exacerbation of CHF (congestive heart failure) PAD (peripheral artery disease) Dyslipidemia HTN (hypertension) NSTEMI (non-ST elevated myocardial infarction) Eczema CAD (coronary artery disease) Clostridioides difficile infection (07/2022) Insomnia CHF (congestive heart failure) Chronic kidney disease Hypertensive urgency Pneumonia due to COVID-19 virus (~06/2022) Colon polyps History of skin cancer Hyperthyroidism Graves disease History of CVA (cerebrovascular accident) COPD (chronic obstructive pulmonary disease) Anxiety Carotid arterial disease ASHD (arteriosclerotic heart disease) Surgical History Status post insertion of iliac artery stent History of coronary artery stent placement History of cardiac catheterization 06/25/2022 Left main artery: Short, patent. Left circumflex artery: Has patent stents, no significant stenosis. LAD:Occluded in the midsegment. RCA: Known occluded. Not injected. SVG to diagonal artery and SVG to RCA are known occluded. Not injected. LOVETT to LAD: Patent. Coronary anatomy unchanged compared to before. History of renal stent Hx of local excision of skin lesion (09/16/20) Left forearm x2 Status post colonoscopy (09/16/20) S/P hysterectomy with oophorectomy S/P cholecystectomy S/P CABG (coronary artery bypass graft) twice, last in 2004 History of endovascular stent graft for abdominal aortic aneurysm (AAA) S/P cataract surgery S/P skin and subcutaneous tissue surgery Family History Sister Mark's disease Sister No problems noted. Mother No problems noted. Other Anesthesia complication Social History Smoking and tobacco/nicotine status: former use of tobacco/nicotine Alcohol intake: current Alcohol intake frequency: holidays/special occasions only Substance/Drug Use: current Vitals/I&O/Wt Last Vital Signs Temp 98.4 F 12/29/23 09:52 Pulse 87 12/29/23 10:19 Resp 16 12/29/23 10:02 BP 135/61 12/29/23 09:52 Pulse Ox 100 12/29/23 10:02 O2 Del Method Room Air 12/29/23 10:02 O2 Flow Rate 1 12/29/23 09:52 Weight last 48 hrs Weight 57.606 kg Physical Exam 2 Narrative: General: No acute distress, AO x3 HEENT: PERRLA, pupils bilaterally equal and reactive, pallors not present Chest: Normal vesicular breath sounds, no added sounds, equal good air entry bilaterally CVS: S1-S2 regular, no murmurs, no tachycardia, no gallops, no rubs Abdomen: Soft, nontender, no organomegaly, bowel sounds present Neuro: No focal deficits, no facial deformity, AO x3, power 5/5 in all limbs Data 12/29/23 09:31 12/29/23 09:31 A&P Assessment and plan (1) Acute blood loss anemia: (2) Chronic anticoagulation: (3) Acute upper GI bleed: Plan 73-year-old lady with a past medical history as outlined above, currently presenting with 2 episodes of melena overnight after recent discharge. She has been on Plavix 75 mg daily and Eliquis 2.5 mg p.o. twice daily. Prior to December 25 she had been on aspirin 81, Plavix 75 and 5 mg p.o. twice daily. Also complaining currently of epigastric pain Clinical concern for upper GI bleeding from ? Gastric ulcer She has thus far received Protonix 80 mg IV in the ER, ordered for 2 units of packed red blood cell transfusion. Start Protonix 40 mg IV every 12 hours thereafter, Carafate 1 g N.p.o. for now patient last had oral intake at 4:30 AM, describes this as ice water only. General surgery consulted for upper GI endoscopy, may be able to be perfromed today Hold Eliquis and Plavix Trend H&H every 6 hours Blood pressure currently 129/71-150 1 over 70 mmHg. Heart rate ranging between 87-1 09 Holding antihypertensives including metoprolol, hydralazine, Imdur today. COPD not currently exacerbated, scheduled nebulization with DuoNeb and budesonide. Hold off on steroids. DNR/ DNI DVT ppx: SCDs only Attestations 2 Medical Necessity Statement*: > 2 midnight stay is anticipated Coding Level of Care Code Acute Code for Chg Fwd Diagnoses Acute blood loss anemia D62 Chronic anticoagulation Z79.01 Acute upper GI bleed K92.2
[2023-12-29 12:13] LABS: Hematocrit 24.5 % (36-47)
[2023-12-29] MEDS: pantoprazole 40 mg SDV IVP ×2 (12:47→23:42)
[2023-12-29] MEDS: morphine 4 mg/mL SDV 1 mL 2 MG IVP ×3 (12:47→16:17)
--- NOTE | 2023-12-29 14:20 | ECG_ITS ---
[facility] Test Date: 2023-12-29 Pat Name: Romi Yuan Department: Room: 261 Gender: Female Turkey Boner: : 1950 Requested By: Hyun Valdes Order Number: [id number] Tessa MD: Tristin Goldstein M.D. Measurements Intervals [place] Rate: 118 P: 0 DC: 0 QRS: -43 QRSD: 121 T: 98 QT: 327 QTc: 459 Interpretive Statements SINUS TACHYCARDIA LEFT AXIS DEVIATION [QRS AXIS < -30] LEFT VENTRICULAR HYPERTROPHY AND ST-T CHANGE [VOLTAGE CRITERIA PLUS ST/T ABNORMALITY] Compared to ECG 12/29/2023 09:56:48 Left ventricular hypertrophy now present ST (T wave) deviation now present T-wave abnormality no longer present Possible ischemia no longer present Electronically Signed On 12-29-2023 15:56:15 CDT by Tristin Goldstein M.D. [id number]
--- NOTE | 2023-12-29 15:10 | PC.NURSE ---
Addendum entered by Melanie Chance RN 12/29/23 15:36: Report given to GLADYS Russell prior to transfer and to JENNIFER Humphrey upon transfer to ICU. Original Note: Pt c/o 9/10 chest pain, left jaw pain and back pain. Ordered EKG and administered IVP morphine [address] Valdes. Was informed by Dr. Valdes pt will not have EGD today, we are to take her to ICU. Dr. Landry consulted with pt prior to her transfer to ICU.
[2023-12-29 15:29] LABS: Troponin T (5th) Once 273 ng/L (0-10)
[2023-12-29] MEDS: sodium chloride 0.9% 100 mL Bag 50 ML IV (15:47)
[2023-12-29] MEDS: sodium chloride 0.9% 1,000 ML 30 ML IV (16:08)
[2023-12-29] MEDS: nitroglycerin 1 gm/inch oint Pkt 1 INCH TOPICAL (16:32)
--- NOTE | 2023-12-29 16:42 | ECG_ITS ---
[facility] Test Date: 2023-12-29 Pat Name: Romi Yuan Department: Room: ICU12 Gender: Female [employer] Fe[employer]: : 1950 Requested By: Misa Landry Order Number: [id number] Tessa MD: Tristin Goldstein M.D. Measurements Intervals [place] Rate: 112 P: 194 [place]: 136 QRS: -46 QRSD: 131 T: 124 QT: 343 QTc: 469 Interpretive Statements SINUS TACHYCARDIA LEFT AXIS DEVIATION [QRS AXIS < -30] INTRAVENTRICULAR CONDUCTION DELAY [130+ ms QRS DURATION] LEFT VENTRICULAR HYPERTROPHY AND ST-T CHANGE [VOLTAGE CRITERIA PLUS ST/T ABNORMALITY] POSSIBLE SEPTAL MYOCARDIAL INFARCTION , OF INDETERMINATE AGE [30 ms Q WAVE IN V1/V2] Compared to ECG 12/29/2023 14:23:47 Intraventricular conduction delay now present Myocardial infarct finding now present ST (T wave) deviation still present Electronically Signed On 12-29-2023 17:18:23 CDT by Tristin Goldstein M.D. [id number]
[2023-12-29 16:47] LABS: Troponin 5 2HR 220.9 ng/L (0-10); Troponin 5 2HR Delta -52.1 ABS# (0-10)
[2023-12-29 17:58] LABS: Glucose Point of Care 434 mg/dL (70-110)
[2023-12-29] MEDS: sucralfate 1 gm Tablet PO (18:04)
[2023-12-29] MEDS: insulin lispro 100 unit/1 mL SUBCUT ×2 (18:04→20:53)
--- NOTE | 2023-12-29 18:31 | P.CONIM_ITS ---
Providers/Reason For Consult 2 Consulting Physician/Specialty*: URBAN Pelayo MD/cardiology Reason for Consult*: Patient with recurrent decompensated heart failure and features of non-ST elevation myocardial infarction Requesting Physician: Dr Timoteo Landry Attending Physician: Misa Landry MD Primary Care Provider: Jocelyne Kirby History of Present Illness History of Present Illness Romi Yuan is a 73 year old female with a history of atherosclerotic heart diseas, status post coronary bypass surgery, multiple PCI's, ischemic cardiomyopathy, LVEF around 33% by echocardiogram in June 2023, multiple decompensated heart failure requiring moderate recent hospital admissions within the last 6 months he is now readmitted due to complaints of progressive shortness of breath and generalized weakness. She was found to be in congestive heart failure with accelerated hypertension in the emergency room. She also started complaining of chest pain while being in the emergency room. She was having black tarry stools. Hemoglobin was found to be around 6.9. Troponin T was found to be elevated in the 200 range. She is admitted to hospital for further evaluation and management. This patient was only discharged from the hospital yesterday after being treated for decompensated heart failure and accelerated hypertension. According the patient, as she reached home, she was feeling okay for a while. Then she started feeling very uncomfortable and could not explain why. She also could not sleep. She was having shortness of breath which progressively got worse. She also noticed tarry stools. She did not have any chest pain at home. No fever, chills or cough. This patient has a history of chronic anemia. He also is known to have chronic kidney disease. She has multiple other medical problems including peripheral artery disease, type 2 diabetes, CVA, high blood pressure, dyslipidemia, pulmonary embolism, rheumatoid arthritis, severe COPD, pulmonary hypertension, chronic anemia etc. She has a longstanding history of coronary disease. She had the first open heart surgery in 1994 while being in [place]. She had the second open heart surgery in 2004 at the [facility] in [place]. She had multiple PCI's as well. She had a total of 5 or 6 myocardial infarctions in the past. She had a 2 coronary angiogram's in the recent past, in June 2022 and June 2023. Both times, she was found to have total occlusion of the mid LAD and the right coronary artery. Patent left circumflex artery with multiple stents. LOVETT to LAD was patent. Saphenous venous graft to the RCA and obtuse marginal arteries were found to be occluded chronically. Based on the angiographic findings, it was opted to treat her medically. In September of this year, she was admitted to the hospital with accelerated hypertension and decompensated heart failure. Her troponin T went up to 2500 range. Since the patient remained fairly stable with no significant chest pain, it was opted to treat her medically. Because of the chronic kidney disease, possibility of she developing contrast-induced nephropathy and requiring hemodialysis was a significant concern. At the time of my evaluation patient chest pain is improving. She is currently receiving blood transfusion. Her blood pressure is 170/96 with a heart rate 112/min. She has a history of smoking abuse 1 to 1-1/2 pack a day for 50 years or so. She quit smoking in September of this year. No alcohol abuse or any other substance abuse. She lives alone and has a cousin who has a power of civil rights attorney. Her complaints are medications questionable. Review of Systems 2 Narrative: CONSTITUTIONAL: No fever or chills. EYES: No blurring of vision or other visual disturbances lately. ENT: No hoarseness of voice, auditory disturbances or sore throat. CARDIOVASCULAR: As mentioned above. RESPIRATORY: Severe COPD and chronic cough. History of PE GASTROINTESTINAL: No hematemesis or melena. GENITOURINARY: Chronic kidney disease INTEGUMENTARY: No skin rashes or history of skin cancer. NEURO: History of TIA PSYCHIATRIC: No history of psychosis or major depression. HEMATOLOGIC: Chronic anemia as mentioned above ENDOCRINE: No history of polyuria or polydipsia. MUSCULOSKELETAL: No recent joint pain or swelling. ALLERGY/IMMUNOLOGY: As mentioned above. Medications/Allergies Home Medications Medication Instructions Recorded Confirmed Last Taken Type umeclidinium 62.5 mcg-vilanterol 1 inh inhalation DAILY 07/20/19 12/27/23 12/25/23 History 25 mcg/actuation powdr for inhalation (Anoro Ellipta) venlafaxine 150 mg See Rx Instructions .Route .COMPLEX 07/20/19 12/27/23 12/25/23 History capsule,extended release 24 hr (Effexor XR) methimazole 5 mg tablet 5 mg PO DAILY #30 tabs 03/11/20 12/27/23 12/25/23 Rx blood sugar diagnostic (Accu-Chek #120 ea 06/23/21 12/27/23 Unknown Rx Ana M Plus test strips) clopidogrel 75 mg tablet (Plavix) 75 mg PO DAILY #60 tabs 06/15/22 12/27/23 12/25/23 Rx acitretin 10 mg capsule 10 mg PO QAM 06/19/22 12/27/23 12/25/23 History atorvastatin 40 mg tablet 40 mg PO BEDTIME 06/19/22 12/27/23 12/25/23 History venlafaxine 75 mg capsule,extended See Rx Instructions .Route .COMPLEX 06/19/22 12/27/23 12/25/23 History release 24 hr albuterol sulfate 90 mcg/actuation 2 puff inhalation QID PRN 07/09/22 12/27/23 09/11/23 History aerosol inhaler (Ventolin HFA) Shortness Of Breath insulin lispro 100 unit/mL 10 unit SUBCUT TID 07/09/22 12/27/23 12/25/23 History subcutaneous pen (Humalog KwikPen (U-100) Insulin) nitroglycerin 0.4 mg sublingual 0.4 mg sublingual Q5M PRN Chest 07/09/22 12/27/23 02/26/23 History tablet (Nitrostat) Pain tizanidine 4 mg tablet 4 mg PO BEDTIME 07/09/22 12/27/23 12/25/23 History empagliflozin 10 mg tablet 10 mg PO DAILY 09/07/22 12/27/23 12/25/23 History (Jardiance) apixaban 2.5 mg tablet 2.5 mg PO BID #180 tabs 05/19/23 12/27/23 12/25/23 Rx calcitriol 0.25 mcg capsule See Rx Instructions .Route .COMPLEX 06/17/23 12/27/23 12/24/23 History ergocalciferol (vitamin D2) 1,250 50,000 unit PO Q7D 09/03/23 12/27/23 12/22/23 History mcg (50,000 unit) capsule (Vitamin D2) insulin glargine 100 unit/mL (3 20 unit SUBCUT DAILY 09/03/23 12/27/23 09/10/23 History mL) subcutaneous pen (Lantus Solostar U-100 Insulin) metoprolol succinate 50 mg 50 mg PO DAILY 11/12/23 12/27/23 12/25/23 History tablet,extended release 24 hr potassium chloride 10 mEq 10 meq PO DAILY #20 tabs 11/12/23 12/27/23 12/25/23 Rx tablet,extended release acetaminophen 500 mg tablet 500 mg PO BEDTIME 11/29/23 12/27/23 12/25/23 History ipratropium 0.5 mg-albuterol 3 mg 3 ml inhalation QID PRN Shortness 11/29/23 12/27/23 Unknown History (2.5 mg base)/3 mL nebulization Of Breath soln ferrous sulfate 325 mg (65 mg 325 mg PO Q12H 12/27/23 12/27/23 12/25/23 History iron) tablet (FeroSul) isosorbide mononitrate 60 mg 60 mg PO BID 12/27/23 12/27/23 12/25/23 History tablet,extended release 24 hr sacubitril 49 mg-valsartan 51 mg 1 tab PO BID 12/27/23 12/27/23 12/25/23 History tablet (Entresto) furosemide 40 mg tablet 40 mg PO BID #60 tabs 12/28/23 12/27/23 12/25/23 Rx hydralazine 50 mg tablet 100 mg (2 x 50 mg) PO TID Systolic 12/28/23 12/27/23 Unknown Rx blood pressure more than 180 mmHg #7 tabs Allergies Allergy/AdvReac Type Severity Reaction Status Date / Time cefuroxime [From Ceftin] Allergy ALGY-Rash Verified 12/26/23 10:54 cephalexin [From Keflex] Allergy ALGY-Rash Verified 12/26/23 10:54 hydroxyzine [From Vistaril] Allergy ALGY-Anaphy Verified 12/26/23 10:54 laxis Penicillins Allergy ALGY-Redness Verified 12/26/23 10:54 of Skin prochlorperazine Allergy ALGY-Anaphy Verified 12/26/23 10:54 [From Compazine] laxis promethazine [From Phenergan] Allergy ALGY-Anaphy Verified 12/26/23 10:54 laxis venom-honey bee Allergy ALGY-Anaphy Verified 12/26/23 10:54 laxis simvastatin [From Zocor] AdvReac ADR-Heartbu Verified 12/26/23 10:54 rn Current Medications Generic Name Dose Route Start Last Admin Trade Name Freq PRN Reason Stop Dose Admin Albuterol/Ipratropium 3 ml 12/29/23 14:00 12/29/23 13:41 Ipratropium-Albuterol 3 Ml Neb INHALATION Not Given Q6H.RESP YASMANI Sodium Chloride 1,000 mls @ 30 mls/hr 12/29/23 14:30 12/29/23 16:08 Sodium Chloride 0.9% IV 12/30/23 14:29 30 mls/hr .Q24H YASMANI Administration Insulin Human Lispro 0 unit 12/29/23 12:00 12/29/23 18:04 Insulin Lispro 100 Unit/1 Ml SUBCUT 18 unit WM&BEDTIME YASMANI Administration Protocol Morphine Sulfate 2 mg 12/29/23 11:44 12/29/23 16:17 Morphine 4 Mg/Ml Sdv 1 Ml IVP 2 mg Q6H PRN Administration SEVERE PAIN Morphine Sulfate 2 mg 12/29/23 14:32 12/29/23 14:38 Morphine 4 Mg/Ml Sdv 1 Ml IVP 2 mg Q5M PRN Administration SEVERE PAIN Nitroglycerin 1 inch 12/29/23 16:15 12/29/23 16:32 Nitroglycerin 1 Gm/Inch Oint Pkt TOPICAL 1 inch Q6H YASMANI Administration Pantoprazole Sodium 40 mg 12/29/23 11:45 12/29/23 12:47 Pantoprazole 40 Mg Sdv IVP 40 mg Q12H YASMANI Administration Sodium Chloride 50 ml 12/29/23 11:04 12/29/23 15:47 Sodium Chloride 0.9% 100 Ml Bag IV 12/30/23 11:05 50 ml PRN PRN Administration Blood transfusion prime and flush Sucralfate 1 gm 12/29/23 18:00 12/29/23 18:04 Sucralfate 1 Gm Tablet PO 1 gm BID YASMANI Administration PFSH Acute 2 PFSH: Medical History (Updated 12/29/23 @ 20:04 by Ledy Pelayo MD) Chronic kidney disease Diabetes mellitus Congestive heart failure Community acquired pneumonia Hypertension, uncontrolled Stable angina Anemia Ischemic cardiomyopathy Atherosclerotic heart disease of [place] coronary artery with other forms of angina pectoris CHF exacerbation Acute non-ST elevation myocardial infarction (NSTEMI) Pulmonary embolism Congestive heart failure Acute respiratory failure with hypoxia Acute exacerbation of CHF (congestive heart failure) PAD (peripheral artery disease) Dyslipidemia HTN (hypertension) NSTEMI (non-ST elevated myocardial infarction) Eczema CAD (coronary artery disease) Clostridioides difficile infection (07/2022) Insomnia CHF (congestive heart failure) Hypertensive urgency Pneumonia due to COVID-19 virus (~06/2022) Colon polyps History of skin cancer Hyperthyroidism Graves disease History of CVA (cerebrovascular accident) COPD (chronic obstructive pulmonary disease) Anxiety Carotid arterial disease ASHD (arteriosclerotic heart disease) Surgical History Status post insertion of iliac artery stent History of coronary artery stent placement History of cardiac catheterization 06/25/2022 Left main artery: Short, patent. Left circumflex artery: Has patent stents, no significant stenosis. LAD:Occluded in the midsegment. RCA: Known occluded. Not injected. SVG to diagonal artery and SVG to RCA are known occluded. Not injected. LOVETT to LAD: Patent. Coronary anatomy unchanged compared to before. History of renal stent Hx of local excision of skin lesion (09/16/20) Left forearm x2 Status post colonoscopy (09/16/20) S/P hysterectomy with oophorectomy S/P cholecystectomy S/P CABG (coronary artery bypass graft) twice, last in 2004 History of endovascular stent graft for abdominal aortic aneurysm (AAA) S/P cataract surgery S/P skin and subcutaneous tissue surgery Family History Sister Mark's disease Sister No problems noted. Mother No problems noted. Other Anesthesia complication Social History Smoking and tobacco/nicotine status: former use of tobacco/nicotine Alcohol intake: current Alcohol intake frequency: holidays/special occasions only Substance/Drug Use: current Vitals/I&O/Wt Last Vital Signs Temp 98.2 F 12/29/23 15:35 Pulse 113 H 12/29/23 16:32 Resp 18 12/29/23 16:17 BP 183/100 12/29/23 16:32 Pulse Ox 100 12/29/23 16:17 O2 Del Method Nasal Cannula 12/29/23 15:50 O2 Flow Rate 2 12/29/23 15:50 FiO2 30 12/29/23 16:10 12/29/23 12/29/23 12/29/23 06:59 14:59 22:59 Intake Total 0 / 0 Balance 0 / 0 Weight last 48 hrs Weight 129 lb Weight 127 lb Physical Exam 2 Narrative: GENERAL: The patient is alert and oriented times three. Not in any acute distress. Chronically ill looking HEENT: Moderate pallor. No, icterus or lymphadenopathy.Oral cavity: There are no mucous membrane lesions. NECK: Trachea appears to be central. No masses noted. No JVD or thyromegaly appreciated. RESPIRATORY: Chest is symmetrical. No intercostals muscle retraction or any accessory muscle activation. There is no chest wall tenderness. Breath sounds are heard bilaterally. Bilateral expiratory wheezing and some coarse crackles. BREASTS: Deferred. HEART: The heart sounds are normal. No S3 or S4. No significant murmurs. No pericardial rub ABDOMEN: No vessel pulsations or distention. No tenderness. No organomegaly appreciated. Bowel sounds are normally heard. : Deferred. RECTAL: Deferred. LYMPHATIC: No lymphadenopathy noted in the neck. EXTREMITIES: Trace edema with no cyanosis. Peripheral pulses are weak bilaterally. Superficial ulcer which is bandaged at the anterior aspect of the right leg. MUSCULOSKELETAL: No acute joint deformities or swelling SKIN: There are no significant rashes or ecchymosis NEUROPSYCHIATRIC: The patient is alert and oriented x3. Appears to be in a good mood. No tremors or rigidity noted. Data 12/29/23 12:05 12/29/23 09:31 Other Labs: Laboratory Last Values WBC 7.86 10^3/uL (3.29-11.43) 12/29/23 09:31 RBC 2.89 10^6/uL (3.85-5.65) L 12/29/23 09:31 Hgb 7.20 g/dL (11.27-16.99) L 12/29/23 12:05 Hct 24.5 % (36-47) L 12/29/23 12:05 MCV 79.2 fl (85-98) L 12/29/23 09:31 MCH 23.9 pg (27-33) L 12/29/23 09:31 MCHC 30.1 g/dL (30-55) 12/29/23 09:31 RDW 15.8 % (12.1-15.1) H 12/29/23 09:31 Plt Count 284 10^3/cmm (157-399) 12/29/23 09:31 MPV 11.0 fL (7.4-10.4) H 12/29/23 09:31 Neut % (Auto) 56.6 % 12/29/23 09:31 Lymph % (Auto) 29.5 % 12/29/23 09:31 [place] % (Auto) 7.3 % 12/29/23 09:31 Eos % (Auto) 5.9 % 12/29/23 09:31 Baso % (Auto) 0.4 % 12/29/23 09:31 Neut # (Auto) 4.46 10^3/uL (1.8-7.7) 12/29/23 09:31 Lymph # (Auto) 2.3 10^3/uL (0.8-4.8) 12/29/23 09:31 [place] # (Auto) 0.6 10^3/uL (0.2-0.9) 12/29/23 09:31 Eos # (Auto) 0.5 10^3/uL (0.0-0.8) 12/29/23 09:31 Baso # (Auto) 0.0 10^3/uL (0.0-0.1) 12/29/23 09:31 Nucleated RBC % (auto) 0 % 12/29/23 09: Nucleated RBCs # 0.0 /100WBC 12/29/23 09:31 Specimen Type Arterial 12/29/23 10:05 Sample Site Brachial, left 12/29/23 10:05 ABG pH 7.39 (7.35-7.45) 12/29/23 10:05 ABG pCO2 33.1 mmHg (35-45) L 12/29/23 10:05 ABG pO2 84.4 mmHg (80.0-100.0) 12/29/23 10:05 ABG PO2/FiO2 Ratio 401 12/29/23 10:05 ABG HCO3 19.8 mmol/L (22-26) L 12/29/23 10:05 ABG O2 Saturation 97.4 12/29/23 10:05 ABG Base Excess -4.8 mmol/L (-2.0-2.0) L 12/29/23 10:05 Rene Test Pos 12/29/23 10:05 A-a O2 Gradient 3.1 mmHg (5-10) L 12/29/23 10:05 Hematocrit 22.3 % (37-47) L 12/29/23 10:05 Hgb O2 Saturation 94.6 % (95-100) L 12/29/23 10:05 Carboxyhemoglobin 2.4 %THgb (0.4-20.1) 12/29/23 10:05 Methemoglobin 0.4 % (0.4-1.5) 12/29/23 10:05 Total Hemoglobin 7.3 g/dL (12-16) L 12/29/23 10:05 Sodium 140.0 mmol/L (131-143) 12/29/23 10:05 Potassium 3.9 mmol/L (3.5-5.0) 12/29/23 10:05 Glucose 164.0 mg/dL (70-115) H 12/29/23 10:05 Ionized Calcium 1.3 mmol/L (1.1-1.4) 12/29/23 10:05 O2 Delivery Device Room air 12/29/23 10:05 FiO2 21.0 % 12/29/23 10:05 Business Line Manager ID [place] 12/29/23 10:05 Sodium 138 mmol/L (136-145) 12/29/23 09:31 Potassium 4.2 mmol/L (3.5-5.1) 12/29/23 09:31 Chloride 107 mmol/L (98-107) 12/29/23 09:31 Carbon Dioxide 19 mmol/L (22-29) L 12/29/23 09:31 Anion Gap 16.2 (5-19) 12/29/23 09:31 BUN 63 mg/dL (8-23) H 12/29/23 09:31 Creatinine 2.0 mg/dL (0.5-0.9) H 12/29/23 09:31 GFR Calculation Not Reportable 12/29/23 09:31 Glucose 171 mg/dL (65-115) H 12/29/23 09:31 POC Glucose 434 mg/dL (70-110) H 12/29/23 17:54 Calculated Osmolality 308 mOsm/kg (285-295) H 12/29/23 09:31 Calcium 8.8 mg/dL (8.5-10.5) 12/29/23 09:31 Total Bilirubin 0.2 mg/dL (0.15-1.2) 12/29/23 09:31 AST 22 U/L (0-32) 12/29/23 09:31 ALT 12 U/L (0-33) 12/29/23 09:31 Alkaline Phosphatase 89 U/L (35-105) 12/29/23 09:31 Troponin T 5th Gen ng/L 273 ng/L (0-10) H* 12/29/23 09:31 Troponin T 120 Minute 220.9 ng/L (0-10) H 12/29/23 13:55 Delta Troponin T -52.1 ABS# (0-10) L 12/29/23 13:55 NT-Pro-B Natriuret Pep > 83605 pg/mL (0-125) H 12/29/23 09:31 Total Protein 6.4 g/dL (6.6-8.7) L 12/29/23 09:31 Albumin 3.3 g/dL (3.5-5.2) L 12/29/23 09:31 Globulin 3.1 g/dL (1.3-4.6) 12/29/23 09:31 Blood Type A Positive 12/29/23 11:15 Rho(D) Type Rh positive 12/29/23 11:15 Antibody Screen Negative 12/29/23 11:15 Crossmatch See Detail 12/29/23 11:15 Other data: EKG from today, 12/29/2023 Sin[address] tachycardia, ST-T changes in the anterolateral leads suggestive of ischemia. Features of LVH by voltage criteria. Left axis deviation. Poor R wave progression . Features of old septal RI Cardiac catheterization in June 2023 Diagnostic Findings * INDICATION: NSTEMI. * Left Main is short, patent. * Circumflex has patent prior stent. * Right Coronary Artery not injected as is known occluded. * Mid Left Anterior Descending: chronic total occlusion, EMILY: 0 flow. * Bypass grafts: LOVETT to LAD is patent. SVG grafts to RCA and OM are occluded. Subclavian artery has 40-50% stenosis.. * Coronary angiography shows right dominance. Conclusions 1. Severe [place] coronary artery disease. Patent LOVETT to LAD and [place] Left circumflex artery. 2. Patient has prior CABG. Echocardiogram in June 2023 Diffuse hypokinesia of the left ventricular ejection fraction of 33%.Grade I/IV diastolic dysfunction (abnormal relaxation filling pattern), normal to mildly elevated filling pressures. Mildly increased left atrial size. Thickened mitral valve. Mild mitral annular calcification. Moderate mitral valve regurgitation. Thickened aortic valve. There is no pericardial effusion. There are no intracardiac masses. Compared to the study from 02/27/2023 there is slight decline in the LV ejection fraction A&P Assessment and plan (1) Atherosclerotic heart disease [place] coronary artery w/angina pectoris: Patient may be treated with IV nitrates, beta-lexy. Consider restarting Plavix tomorrow if the hemoglobin is stable. Because of the n.p.o., other medications are on hold.Consider starting on IV nitro, if the chest pain is not improved with the topical nitrates Qualifiers: [place] vs. transplanted heart: [place] heart Qualified Code(s): I25.119 - Atherosclerotic heart disease of [place] coronary artery with unspecified angina pectoris (2) Acute on chronic systolic heart failure: Very carefully treated with IV diuretics. Will restart the p.o. medication, once the hemoglobin is stable. (3) Acute blood loss anemia: I agree with the blood transfusion, to keep the hemoglobin around 9. (4) Accelerated hypertension: May be treated with IV hydralazine. (5) Chronic anticoagulation: The anticoagulation is on hold. (6) Diabetes mellitus: Management as per the primary Qualifiers: Diabetes mellitus type: type 2 Diabetes mellitus retirement insulin use: with terminal gauger supervisor use Diabetes mellitus complication status: with circulatory complication Diabetes mellitus complication detail: with peripheral angiopathy without gangrene Qualified Code(s): E11.51 - Type 2 diabetes mellitus with diabetic peripheral angiopathy without gangrene; Z79.4 - nursing home (current) use of insulin (7) Chronic kidney disease: This needs to be closely monitored. Qualifiers: Chronic kidney disease stage: stage 3 (moderate) Chronic kidney disease stage 3 subtype: stage 3a (GFR 45-59) Qualified Code(s): N18.31 - Chronic kidney disease, stage 3a Plan Elevated today echocardiogram to be helpful to evaluate LV function and rule out any other pathology. IV Lopressor IV nitro if there is recurrence of chest pain IV hydralazine as needed Close monitoring Patient appears to clinical progress, further recommendations will be made. Thank you for the opportunity to evaluate this patient and make these recommendations Dr. Goldstein will be assuming her care in the morning. Coding Level of Care Code 21653 Diagnoses Atherosclerosis of [place] coronary artery of [place] heart with angina pectoris I25.119 [place] vs. transplanted heart: [place] heart Acute on chronic systolic heart failure I50.23 Acute blood loss anemia D62 Accelerated hypertension I10 Chronic anticoagulation Z79.01 Type 2 diabetes mellitus with diabetic peripheral angiopathy without gangrene, with long-term current use of insulin E11.51; Z79.4 Diabetes mellitus type: type 2 Diabetes mellitus terminal gauger supervisor insulin use: with terminal gauger supervisor use Diabetes mellitus complication status: with circulatory complication Diabetes mellitus complication detail: with peripheral angiopathy without gangrene Stage 3a chronic kidney disease N18.31 Chronic kidney disease stage: stage 3 (moderate) Chronic kidney disease stage 3 subtype: stage 3a (GFR 45-59) Time Spent (min) 70
--- NOTE | 2023-12-29 18:36 | USCV_ITS ---
Romi Yuan Age: 73 Gender: F : 1950 Exam Date: 12/29/2023 21:46 Ordering Phys: Ledy Pelayo MD ([email or web address]) Technologist: BAILEY Exam Location: [facility] [place] Indication: CHF/ NSTEMI hx COPD, hx chronic hypoxemia, hx ischemic CM, O2 dependent 2L, DM BP: 183 / 100 HR: 88 Rhythm: Sinus Technical Quality: Adequate MEASUREMENTS (Male / Female) Normal Values 2D ECHO LV Diastolic Diameter PLAX 5.5 cm 4.2 - 5.9 / 3.9 - 5.3 cm LV Systolic Diameter PLAX 5.1 cm IVS Diastolic Thickness 1.4 cm 0.6 - 1.0 / 0.6 - 0.9 cm IVS Systolic Thickness 2.0 cm LVPW Diastolic Thickness 0.9 cm 0.6 - 1.0 / 0.6 - 0.9 cm LVPW Systolic Thickness 0.9 cm LVOT Diameter 1.7 cm LV Ejection Fraction 2D Teich 16.0 % LV Ejection Fraction MOD 4C 13.4 % LV Ejection Fraction MOD 2C 26.6 % LV Ejection Fraction 2C AL 27.6 % LA Diameter 5.8 cm Aorta at Sinotubular Diameter 2.4 cm IVC Diameter 1.6 cm M-MODE LA Ao Ratio MM 1.9 AV Cusp Separation MM 1.3 cm DOPPLER AV Peak Velocity 145.0 cm/s LVOT Peak Velocity 49.0 cm/s AV Area Cont Eq vti 0.7 cm squared AV Area Cont Eq pk 0.7 cm squared MV Peak Velocity 165.0 cm/s MV Area PHT 5.3 cm squared Mitral E to A Ratio 1.4 PV Peak Velocity 91.0 cm/s FINDINGS Left Ventricle Severe diffuse hypokinesia of the left ventricle with an ejection fraction of 15 to 20%, visual. Mildly dilated LV cavity Right Ventricle The right ventricle is normal in size and function. Right Atrium The right atrium is normal in size. Left Atrium Moderately increased left atrial size. Mitral Valve Thickened mitral valve. Mild mitral annular calcification. Severe mitral regurgitation Aortic Valve Minimally thickened aortic valve. Tricuspid Valve Moderate tricuspid annular calcification Pulmonic Valve Trace pulmonary valve regurgitation. Pericardium No pericardial effusion. Aorta Normal ascending aorta dimension. IVC Normal inferior vena cava. CONCLUSIONS Severe diffuse hypokinesia of the left ventricle with an ejection fraction of 15 to 20%, visual. Mildly dilated LV cavity. Moderately increased left atrial size. Thickened mitral valve. Mild mitral annular calcification. Severe mitral regurgitation. Minimally thickened aortic valve. Moderate tricuspid annular calcification Trace pulmonary valve regurgitation. Compared to the study from 09/12/2023, there is worsening of the mitral regurgitation, appears to have severe MR now. Dr Ledy Pelayo MD FAC (Electronically Signed) Final Date: 30 December 2023 01:45 S
[2023-12-29 18:49] LABS: Troponin 5 6HR 331.8 ng/L (0-10); Troponin 5 6HR Delta 58.8 ng/L (0-12)
[2023-12-29] MEDS: FUROsemide 10 mg/mL SDV 2mL 20 MG IVP (19:02)
[2023-12-29] MEDS: nitroglycerin 1 gm/inch oint Pkt 2 INCH TOPICAL (19:32)
[2023-12-29] MEDS: metoprolol tartrate 1 mg/1 mL SDV 5 mL 5 MG IVP (19:35)
[2023-12-29] MEDS: budesonide 0.5 mg/2 mL Neb INHALATION (19:58)
[2023-12-29 20:16] LABS: Hematocrit 31.7 % (36-47)
[2023-12-29 20:52] LABS: Glucose Point of Care 267 mg/dL (70-110)
[2023-12-29] MEDS: venlafaxine ER (24HR) 75 mg Capsule PO (20:53)
[2023-12-29] MEDS: venlafaxine ER (24HR) 150 mg Capsule PO (20:53)
--- NOTE | 2023-12-29 21:38 | PC.NURSE ---
1899 -- Dr. Pelayo to bedside, new orders given after thorough patient review.
--- NOTE | 2023-12-29 21:41 | ECG_ITS ---
[facility] Test Date: 2023-12-29 Pat Name: Romi Yuan Department: Room: ICU12 Gender: Female Inpatient Pharmacist: : 1950 Requested By: Misa Landry Order Number: [id number] Reading MD: Tristin Goldstein M.D. Measurements Intervals [place] Rate: 93 P: 85 DE: 176 QRS: -36 QRSD: 116 T: 84 QT: 367 QTc: 458 Interpretive Statements SINUS RHYTHM LEFT AXIS DEVIATION [QRS AXIS < -30] LEFT VENTRICULAR HYPERTROPHY AND ST-T CHANGE [VOLTAGE CRITERIA PLUS ST/T ABNORMALITY] Compared to ECG 12/29/2023 16:42:13 Sinus tachycardia no longer present Intraventricular conduction delay no longer present Myocardial infarct finding no longer present ST (T wave) deviation still present Electronically Signed On 12-30-2023 6:50:45 CDT by Tristin Goldstein M.D. [id number]
[2023-12-29] MEDS: hyDRALAzine 20 mg/mL INJ 1 mL IVP (23:41)
[2023-12-30] VITALS (56 sets, daily range): BP systolic 101–161; BP diastolic 47–98; PULSE 79–107; RESP 8–27; TEMP 36.5–36.9; O2SAT 93–100
[2023-12-30] MEDS: nitroglycerin 1 gm/inch oint Pkt 2 INCH TOPICAL ×4 (00:57→18:10)
[2023-12-30 01:09] LABS: Hematocrit 34.3 % (36-47)
[2023-12-30] MEDS: ipratropium-albuterol 3 mL Neb INHALATION ×4 (01:46→20:10)
[2023-12-30] MEDS: metoprolol tartrate 1 mg/1 mL SDV 5 mL 5 MG IVP ×3 (03:22→19:06)
[2023-12-30 05:37] LABS: Hematocrit 35.5 % (36-47)
[2023-12-30 06:06] LABS: Alanine Aminotransferase 28 U/L (0-33); Albumin Level 3.3 g/dL (3.5-5.2); Alkaline Phosphatase 94 U/L (35-105); Anion Gap 17.6 (5-19); Aspartate Amino Transferase 138 U/L (0-32); Blood Urea Nitrogen 71 mg/dL (8-23); Calcium 9.4 mg/dL (8.5-10.5); Carbon Dioxide 20 mmol/L (22-29); Chloride 108 mmol/L (98-107); Creatinine Clr Calc Pharmacy 19.3922; Globulin 3.2 g/dL (1.3-4.6); Glucose 121 mg/dL (65-115); Osmolality Calculated 314 mOsm/kg (285-295); Potassium 4.6 mmol/L (3.5-5.1); Sodium 141 mmol/L (136-145); Total Bilirubin 0.7 mg/dL (0.15-1.2); Total Protein 6.5 g/dL (6.6-8.7)
[2023-12-30] MEDS: budesonide 0.5 mg/2 mL Neb INHALATION ×2 (07:24→20:10)
[2023-12-30 08:07] LABS: Glucose Point of Care 154 mg/dL (70-110)
[2023-12-30] MEDS: methIMAzole 5 MG Tablet PO (08:11)
[2023-12-30] MEDS: sucralfate 1 gm Tablet PO (08:11)
[2023-12-30] MEDS: insulin lispro 100 unit/1 mL SUBCUT ×2 (08:11→20:07)
--- NOTE | 2023-12-30 08:37 | P.ANESASSM_ITS ---
Pre-Anesthetic Assessment Height/Weight: Height 1.52 m Weight 60.464 kg Temp Pulse Resp BP Pulse Ox O2 Del Method O2 Flow Rate 98.0 F 100 20 H 152/73 97 Nasal Cannula 2 12/30/23 08:00 12/30/23 08:00 12/30/23 08:00 12/30/23 08:00 12/30/23 08:00 12/30/23 08:00 12/30/23 07:24 FiO2 30 12/30/23 04:00 Operation Date: 12/29/23 14:04 Proposed Procedures p EGD(Not Applicable) - Zane Muniz DO Operation Date: 12/30/23 12:00 Proposed Procedures p EGD(Not Applicable) - Zane Muniz DO Familial anesthetic complications: None Last intake: > 8 hrs Social No alcohol and No tobacco former extensive smoking history Exam alert, oriented x 3, clear to auscultation bilaterally and regular rate & rhythm Pulmonary Chronic Obstructive Pulmonary Disease and Sleep Apnea Discharged 12/27 after flash pulmonary edema CV/HEM Atrial Fibrillation (ON eliquis), Anemia (s/p 2 units with improvement in HR and chest pain experienced yesterday immediately prior to procedure), Unstable Angina, Coronary Artery Disease (cabg, multiple stents, extensive cad treating medically now d/t RICARDO, on plavix ), Congestive Heart Failure (multiple repeat episodes, most recent CHF exacerbation with previous hospitalization discharged 12/27) and Myocardial Infarction (NSTEMI with troponin elevation 12/28) Echo 12/28 CONCLUSIONS Severe diffuse hypokinesia of the left ventricle with an ejection fraction of 15 to 20%, visual. Mildly dilated LV cavity. Moderately increased left atrial size. Thickened mitral valve. Mild mitral annular calcification. Severe mitral regurgitation. Minimally thickened aortic valve. Moderate tricuspid annular calcification Trace pulmonary valve regurgitation. Compared to the study from 09/12/2023, there is worsening of the mitral regurgitation, appears to have severe MR now. Chronic Renal Insufficiency Anesthetic Plan ASA status: 4 Anesthesia: MAC Other: Discusssed with patient and family code status - does not want chest compressions, but is ok with shocks, medications, and intubation, though does not want to be on prolonged mechanical ventilation Discussed need for conservative anesthesia and thus higher risk for awareness as well as increased risk of cardiac and pulmonary complications with EGD given her cardiopulmonary status Risk of > 500 ml blood loss (7ml/kg in children): No Medications/Allergies Home Medications Medication Instructions Recorded Confirmed Last Taken Type umeclidinium 62.5 mcg-vilanterol 1 inh inhalation DAILY 07/20/19 12/27/23 12/25/23 History 25 mcg/actuation powdr for inhalation (Anoro Ellipta) venlafaxine 150 mg See Rx Instructions .Route .COMPLEX 07/20/19 12/27/23 12/25/23 History capsule,extended release 24 hr (Effexor XR) methimazole 5 mg tablet 5 mg PO DAILY #30 tabs 03/11/20 12/27/23 12/25/23 Rx blood sugar diagnostic (Accu-Chek #120 ea 06/23/21 12/27/23 Unknown Rx Ana M Plus test strips) clopidogrel 75 mg tablet (Plavix) 75 mg PO DAILY #60 tabs 06/15/22 12/27/23 12/25/23 Rx acitretin 10 mg capsule 10 mg PO QAM 06/19/22 12/27/23 12/25/23 History atorvastatin 40 mg tablet 40 mg PO BEDTIME 06/19/22 12/27/23 12/25/23 History venlafaxine 75 mg capsule,extended See Rx Instructions .Route .COMPLEX 06/19/22 12/27/23 12/25/23 History release 24 hr albuterol sulfate 90 mcg/actuation 2 puff inhalation QID PRN 07/09/22 12/27/23 09/11/23 History aerosol inhaler (Ventolin HFA) Shortness Of Breath insulin lispro 100 unit/mL 10 unit SUBCUT TID 07/09/22 12/27/23 12/25/23 History subcutaneous pen (Humalog KwikPen (U-100) Insulin) nitroglycerin 0.4 mg sublingual 0.4 mg sublingual Q5M PRN Chest 07/09/22 12/27/23 02/26/23 History tablet (Nitrostat) Pain tizanidine 4 mg tablet 4 mg PO BEDTIME 07/09/22 12/27/23 12/25/23 History empagliflozin 10 mg tablet 10 mg PO DAILY 09/07/22 12/27/23 12/25/23 History (Jardiance) apixaban 2.5 mg tablet 2.5 mg PO BID #180 tabs 05/19/23 12/27/2324 Rx calcitriol 0.25 mcg capsule See Rx Instructions .Route .COMPLEX 06/17/23 12/27/23 12/24/23 History ergocalciferol (vitamin D2) 1,250 50,000 unit PO Q7D 09/03/23 12/27/23 12/22/23 History mcg (50,000 unit) capsule (Vitamin D2) insulin glargine 100 unit/mL (3 20 unit SUBCUT DAILY 09/03/23 12/27/23 09/10/23 History mL) subcutaneous pen (Lantus Solostar U-100 Insulin) metoprolol succinate 50 mg 50 mg PO DAILY 11/12/23 12/27/23 12/25/23 History tablet,extended release 24 hr potassium chloride 10 mEq 10 meq PO DAILY #20 tabs 11/12/23 12/27/23 12/25/23 Rx tablet,extended release acetaminophen 500 mg tablet 500 mg PO BEDTIME 11/29/23 12/27/23 12/25/23 History ipratropium 0.5 mg-albuterol 3 mg 3 ml inhalation QID PRN Shortness 11/29/23 12/27/23 Unknown History (2.5 mg base)/3 mL nebulization Of Breath soln ferrous sulfate 325 mg (65 mg 325 mg PO Q12H 12/27/23 12/27/23 12/25/23 History iron) tablet (FeroSul) isosorbide mononitrate 60 mg 60 mg PO BID 12/27/23 12/27/23 12/25/23 History tablet,extended release 24 hr sacubitril 49 mg-valsartan 51 mg 1 tab PO BID 12/27/23 12/27/23 12/25/23 History tablet (Entresto) furosemide 40 mg tablet 40 mg PO BID #60 tabs 12/28/23 12/27/23 12/25/23 Rx hydralazine 50 mg tablet 100 mg (2 x 50 mg) PO TID Systolic 12/28/23 12/27/23 Unknown Rx blood pressure more than 180 mmHg #7 tabs Allergies Allergy/AdvReac Type Severity Reaction Status Date / Time cefuroxime [From Ceftin] Allergy ALGY-Rash Verified 12/26/23 10:54 cephalexin [From Keflex] Allergy ALGY-Rash Verified 12/26/23 10:54 hydroxyzine [From Vistaril] Allergy ALGY-Anaphy Verified 12/26/23 10:54 laxis Penicillins Allergy ALGY-Redness Verified 12/26/23 10:54 of Skin prochlorperazine Allergy ALGY-Anaphy Verified 12/26/23 10:54 [From Compazine] laxis promethazine [From Phenergan] Allergy ALGY-Anaphy Verified 12/26/23 10:54 laxis venom-honey bee Allergy ALGY-Anaphy Verified 12/26/23 10:54 laxis simvastatin [From Zocor] AdvReac ADR-Heartbu Verified 12/26/23 10:54 rn Current Medications Generic Name Dose Route Start Last Admin Trade Name Freq PRN Reason Stop Dose Admin Albuterol/Ipratropium 3 ml 12/29/23 14:00 12/30/23 07:24 Ipratropium-Albuterol 3 Ml Neb INHALATION 3 ml Q6H.RESP YASMANI Administration Budesonide 0.5 mg 12/29/23 20:00 12/30/23 07:24 Budesonide 0.5 Mg/2 Ml Neb INHALATION 0.5 mg BID.RESPIRATORY YASMANI Administration Hydralazine HCl 20 mg 12/29/23 19:06 12/29/23 23:41 Hydralazine 20 Mg/Ml Inj 1 Ml IVP 20 mg Q8H PRN Administration SBP >= 150 Sodium Chloride 1,000 mls @ 30 mls/hr 12/29/23 14:30 12/29/23 19:23 Sodium Chloride 0.9% IV 12/30/23 14:29 Infused .Q24H YASMANI Infusion Insulin Human Lispro 0 unit 12/29/23 12:00 12/30/23 08:11 Insulin Lispro 100 Unit/1 Ml SUBCUT 6 unit WM&BEDTIME YASMANI Administration Protocol Methimazole 5 mg 12/30/23 09:00 12/30/23 08:11 Methimazole 5 Mg Tablet PO 5 mg DAILY YASMANI Administration Metoprolol Tartrate 5 mg 12/29/23 19:15 12/30/23 03:22 Metoprolol Tartrate 1 Mg/1 Ml Sdv 5 Ml IVP 5 mg Q8H YASMANI Administration Morphine Sulfate 2 mg 12/29/23 11:44 12/29/23 16:17 Morphine 4 Mg/Ml Sdv 1 Ml IVP 2 mg Q6H PRN Administration SEVERE PAIN Morphine Sulfate 2 mg 12/29/23 14:32 12/29/23 14:38 Morphine 4 Mg/Ml Sdv 1 Ml IVP 2 mg Q5M PRN Administration SEVERE PAIN Nitroglycerin 2 inch 12/29/23 19:06 12/30/23 07:49 Nitroglycerin 1 Gm/Inch Oint Pkt TOPICAL 2 inch Q6H YASMANI Administration Pantoprazole Sodium 40 mg 12/29/23 11:45 12/29/23 23:42 Pantoprazole 40 Mg Sdv IVP 40 mg Q12H YASMANI Administration Sodium Chloride 50 ml 12/29/23 11:04 12/29/23 15:47 Sodium Chloride 0.9% 100 Ml Bag IV 12/30/23 11:05 50 ml PRN PRN Administration Blood transfusion prime and flush Sucralfate 1 gm 12/29/23 18:00 12/30/23 08:11 Sucralfate 1 Gm Tablet PO 1 gm BID YASMANI Administration Venlafaxine HCl 150 mg 12/29/23 21:00 12/29/23 20:53 Venlafaxine Er (24hr) 150 Mg Capsule PO 150 mg BEDTIME YASMANI Administration Venlafaxine HCl 75 mg 12/29/23 21:00 12/29/23 20:53 Venlafaxine Er (24hr) 75 Mg Capsule PO 75 mg BEDTIME YASMANI Administration PFS Anesthesia Medical History (Updated 12/29/23 @ 20:04 by Ledy Pelayo MD) Chronic kidney disease Diabetes mellitus Congestive heart failure Community acquired pneumonia Hypertension, uncontrolled Stable angina Anemia Ischemic cardiomyopathy Atherosclerotic heart disease of [place] coronary artery with other forms of angina pectoris CHF exacerbation Acute non-ST elevation myocardial infarction (NSTEMI) Pulmonary embolism Congestive heart failure Acute respiratory failure with hypoxia Acute exacerbation of CHF (congestive heart failure) PAD (peripheral artery disease) Dyslipidemia HTN (hypertension) NSTEMI (non-ST elevated myocardial infarction) Eczema CAD (coronary artery disease) Clostridioides difficile infection (07/2022) Insomnia CHF (congestive heart failure) Hypertensive urgency Pneumonia due to COVID-19 virus (~06/2022) Colon polyps History of skin cancer Hyperthyroidism Graves disease History of CVA (cerebrovascular accident) COPD (chronic obstructive pulmonary disease) Anxiety Carotid arterial disease ASHD (arteriosclerotic heart disease) Surgical History Status post insertion of iliac artery stent History of coronary artery stent placement History of cardiac catheterization 06/25/2022 Left main artery: Short, patent. Left circumflex artery: Has patent stents, no significant stenosis. LAD:Occluded in the midsegment. RCA: Known occluded. Not injected. SVG to diagonal artery and SVG to RCA are known occluded. Not injected. LOVETT to LAD: Patent. Coronary anatomy unchanged compared to before. History of renal stent Hx of local excision of skin lesion (09/16/20) Left forearm x2 Status post colonoscopy (09/16/20) S/P hysterectomy with oophorectomy S/P cholecystectomy S/P CABG (coronary artery bypass graft) twice, last in 2004 History of endovascular stent graft for abdominal aortic aneurysm (AAA) S/P cataract surgery S/P skin and subcutaneous tissue surgery Family History Sister Mark's disease Sister No problems noted. Mother No problems noted. Other Anesthesia complication Social History Smoking and tobacco/nicotine status: former use of tobacco/nicotine Alcohol intake: current Alcohol intake frequency: holidays/special occasions only Substance/Drug Use: current Data Anesthesia 12/30/23 05:07 12/30/23 05:07 Short CBC 12/29/23 12/29/23 12/29/23 Range/Units 09:31 12:05 20:10 WBC 7.86 (3.29-11.43) 10^3/uL Hgb 6.90 L 7.20 L 9.50 L D (11.27-16.99) g/dL Hct 22.9 L 24.5 L 31.7 L (36-47) % MCV 79.2 L (85-98) fl Plt Count 284 (157-399) 10^3/cmm Neut % (Auto) 56.6 % Neut # (Auto) 4.46 (1.8-7.7) 10^3/uL 12/30/23 12/30/23 Range/Units 01:00 05:07 WBC (3.29-11.43) 10^3/uL Hgb 10.90 L 11.10 L (11.27-16.99) g/dL Hct 34.3 L 35.5 L (36-47) % MCV (85-98) fl Plt Count (157-399) 10^3/cmm Neut % (Auto) % Neut # (Auto) (1.8-7.7) 10^3/uL BMP 12/29/23 12/30/23 09:31 05:07 Sodium 138 141 Potassium 4.2 4.6 Chloride 107 108 H Carbon Dioxide 19 L 20 L BUN 63 H 71 H Creatinine 2.0 H 2.1 H Glucose 171 H 121 H Calcium 8.8 9.4 Cardiac Enzymes 12/29/23 12/29/23 12/29/23 Range/Units 09:31 13:55 17:31 Troponin T 5th Gen ng/L 273 H* (0-10) ng/L Troponin T 120 Minute 220.9 H (0-10) ng/L Delta Troponin T -52.1 L (0-10) ABS# Troponin T Hi Sens 6Hr 331.8 H (0-10) ng/L Troponin T Hi Sens 6Hr Delta 58.8 H* (0-12) ng/L NT-Pro-B Natriuret Pep > 79422 H (0-125) pg/mL Liver Function 12/29/23 12/30/23 Range/Units 09:31 05:07 Total Bilirubin 0.2 0.7 (0.15-1.2) mg/dL AST 22 138 H (0-32) U/L ALT 12 28 (0-33) U/L Alkaline Phosphatase 89 94 (35-105) U/L Albumin 3.3 L 3.3 L (3.5-5.2) g/dL Blood Bank 12/29/23 11:15 Blood Type A Positive Rho(D) Type Rh positive Antibody Screen Negative ABG 12/29/23 10:05 Specimen Type Arterial Sample Site Brachial, left ABG pH 7.39 ABG pCO2 33.1 L ABG pO2 84.4 ABG PO2/FiO2 Ratio 401 ABG HCO3 19.8 L ABG O2 Saturation 97.4 ABG Base Excess -4.8 L A-a O2 Gradient 3.1 L O2 Delivery Device Room air FiO2 21.0 Cardiac Studies: 2 Echocardiogram 09/12/23 Echocardiogram Limited Views 12/29/23
--- NOTE | 2023-12-30 08:48 | PC.PHAR ---
VERIFIED THE CHANGES ON MEDICATIONS FROM DISCHARGE LAST WEEK. ASPIRIN 81MG DC'D AND FUROSEMIDE CHANGED FROM 40MG IN AM AND 20MG PM, TO 40 MG TWICE DAILY.
--- NOTE | 2023-12-30 09:48 | P.PN_ITS ---
Subjective 2 Subjective: Patient has on and off chest pain episodes. Plan for EGD today. Vitals/I&O/Wt Last Vital Signs Temp 98.0 F 12/30/23 08:00 Pulse 100 12/30/23 08:00 Resp 20 H 12/30/23 08:00 BP 152/73 12/30/23 08:00 Pulse Ox 97 12/30/23 08:00 O2 Del Method Nasal Cannula 12/30/23 08:00 O2 Flow Rate 2 12/30/23 07:24 FiO2 30 12/30/23 04:00 12/29/23 12/30/23 12/30/23 22:59 06:59 14:59 Intake Total 1450 / 1450 450 / 1900 Output Total 350 / 350 325 / 675 Balance 1100 / 1100 125 / 1225 Weight last 48 hrs Weight 133 lb 4.8 oz Weight 129 lb Weight 127 lb Physical Exam 2 Narrative: GENERAL: Patient is alert, awake and oriented x3. [] NECK: No jugular vein distension. [] HEENT: No cyanosis. No icterus. No pallor. [] HEART: Regular S1 and S2. Grade 3/6 systolic murmur LUNGS: Clear to auscultate bilaterally. [] CENTRAL NERVOUS SYSTEM: Grossly nonfocal. [] EXTREMITIES: Lower extremities with 1+ edema bilaterally. Data 12/31/23 07:40 12/31/23 07:40 A&P Assessment and plan (1) Atherosclerotic heart disease [place] coronary artery w/angina pectoris: Qualifiers: [place] vs. transplanted heart: [place] heart Qualified Code(s): I25.119 - Atherosclerotic heart disease of [place] coronary artery with unspecified angina pectoris (2) Acute on chronic systolic heart failure: (3) Acute blood loss anemia: (4) Accelerated hypertension: (5) Chronic anticoagulation: (6) Diabetes mellitus: Qualifiers: Diabetes mellitus complication detail: with peripheral angiopathy without gangrene Diabetes mellitus complication status: with circulatory complication Diabetes mellitus mcfp insulin use: with mcfp use D iabetes mellitus type: type 2 Qualified Code(s): E11.51 - Type 2 diabetes mellitus with diabetic peripheral angiopathy without gangrene; Z79.4 - 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 Also has severe mitral regurgitation. This has progressed. Patient is not a candidate for repeat open heart surgery secondary to 2 prior CABGs. Troponins have gone up. She is complex patient with ongoing GI bleed requiring blood transfusions. Plan for EGD today. Based on the results, we will make further recommendations. Will hold off on ROCIO or coronary angiogram given potential for complications. Has CKD and BUN is over 70. May require transfer to tertiary care facility for consideration of possible MitraClip. With her renal function, may need a stress test for assessment of CAD. Thank you for involving us with care of this patient. We will continue to follow. Please call with questions. Attestations 2 Medical Necessity Statement*: Care expected to cross 2 midnights. Coding Level of Care Code Acute Code for g Fwd Diagnoses Atherosclerosis of [place] coronary artery of [place] heart with angina pectoris I25.119 [place] vs. transplanted heart: [place] heart Acute on chronic systolic heart failure I50.23 Acute blood loss anemia D62 Accelerated hypertension I10 Chronic anticoagulation Z79.01 Type 2 diabetes mellitus with diabetic peripheral angiopathy without gangrene, with long-term current use of insulin E11.51; Z79.4 Diabetes mellitus complication detail: with peripheral angiopathy without gangrene Diabetes mellitus complication status: with circulatory complication Diabetes mellitus termite control representative insulin use: with termite control representative use Diabetes mellitus type: type 2 Stage 3a chronic kidney disease N18.31 Chronic kidney disease stage: stage 3 (moderate) Chronic kidney disease stage 3 subtype: stage 3a (GFR 45-59)
[2023-12-30] MEDS: pantoprazole 40 mg SDV IVP ×2 (11:16→23:11)
--- NOTE | 2023-12-30 11:17 | PM.CONSULT ---
Providers/Reason For Consult Consulting Physician/Specialty*: Dr. Zane Muniz, DO/General surgery Reason for Consult*: Melena Attending Physician: Misa Landry MD Primary Care Provider: Jocelyne Kirby History of Present Illness History of Present Illness Romi Yuan is a 73 year old female discharged from the hospital 2 days ago after being treated for hypertensive urgency and flash pulmonary edema, acute on chronic heart failure exacerbation. When she got home she had 2 episodes of melena and began feeling weak and fatigued. She presented back to the hospital yesterday, the day after discharge. She reports that she is having epigastric and right-sided abdominal pain which is sharp and does not radiate. Palpation makes pain worse. Nothing seems to make the pain better. She denies any nausea, emesis, diarrhea, constipation and/or hematochezia. She had a coronary stent placed a year and a half ago and a CABG in 2004. She takes Plavix and Eliquis 2.5 mg at home but has not taken it for the past 2 days. Review of Systems General: Reports: 10 or more systems reviewed and unremarkable except in HPI and below Medications/Allergies Home Medications Medication Instructions Recorded Confirmed Last Taken Type umeclidinium 62.5 mcg-vilanterol 1 inh inhalation DAILY 07/20/19 12/30/23 12/25/23 History 25 mcg/actuation powdr for inhalation (Anoro Ellipta) venlafaxine 150 mg See Rx Instructions .Route .COMPLEX 07/20/19 12/30/23 12/25/23 History capsule,extended release 24 hr (Effexor XR) methimazole 5 mg tablet 5 mg PO DAILY #30 tabs 03/11/20 12/30/23 12/25/23 Rx blood sugar diagnostic (Accu-Chek #120 ea 06/23/21 12/30/23 Unknown Rx Ana M Plus test strips) clopidogrel 75 mg tablet (Plavix) 75 mg PO DAILY #60 tabs 06/15/22 12/30/23 12/25/23 Rx acitretin 10 mg capsule 10 mg PO QAM 06/19/22 12/30/23 12/25/23 History atorvastatin 40 mg tablet 40 mg PO BEDTIME 06/19/22 12/30/23 12/25/23 History venlafaxine 75 mg capsule,extended See Rx Instructions .Route .COMPLEX 06/19/22 12/30/23 12/25/23 History release 24 hr albuterol sulfate 90 mcg/actuation 2 puff inhalation QID PRN 07/09/22 12/30/23 09/11/23 History aerosol inhaler (Ventolin HFA) Shortness Of Breath insulin lispro 100 unit/mL 10 unit SUBCUT TID 07/09/22 12/30/23 12/25/23 History subcutaneous pen (Humalog KwikPen (U-100) Insulin) nitroglycerin 0.4 mg sublingual 0.4 mg sublingual Q5M PRN Chest 07/09/22 12/30/23 02/26/23 History tablet (Nitrostat) Pain tizanidine 4 mg tablet 4 mg PO BEDTIME 07/09/22 12/30/23 12/25/23 History empagliflozin 10 mg tablet 10 mg PO DAILY 09/07/22 12/30/23 12/25/23 History (Jardiance) apixaban 2.5 mg tablet 2.5 mg PO BID #180 tabs 05/19/23 12/30/23 12/25/23 Rx calcitriol 0.25 mcg capsule See Rx Instructions .Route .COMPLEX 06/17/23 12/30/23 12/24/23 History ergocalciferol (vitamin D2) 1,250 50,000 unit PO Q7D 09/03/23 12/30/23 12/22/23 History mcg (50,000 unit) capsule (Vitamin D2) insulin glargine 100 unit/mL (3 20 unit SUBCUT DAILY 09/03/23 12/30/23 09/10/23 History mL) subcutaneous pen (Lantus Solostar U-100 Insulin) metoprolol succinate 50 mg 50 mg PO DAILY 11/12/23 12/30/23 12/25/23 History tablet,extended release 24 hr potassium chloride 10 mEq 10 meq PO DAILY #20 tabs 11/12/23 12/30/23 12/25/23 Rx tablet,extended release acetaminophen 500 mg tablet 500 mg PO BEDTIME 11/29/23 12/30/23 12/25/23 History ipratropium 0.5 mg-albuterol 3 mg 3 ml inhalation QID PRN Shortness 11/29/23 12/30/23 Unknown History (2.5 mg base)/3 mL nebulization Of Breath soln ferrous sulfate 325 mg (65 mg 325 mg PO Q12H 12/27/23 12/30/23 12/25/23 History iron) tablet (FeroSul) isosorbide mononitrate 60 mg 60 mg PO BID 12/27/23 12/30/23 12/25/23 History tablet,extended release 24 hr sacubitril 49 mg-valsartan 51 mg 1 tab PO BID 12/27/23 12/30/23 12/25/23 History tablet (Entresto) furosemide 40 mg tablet 40 mg PO BID #60 tabs 12/28/23 12/30/23 12/25/23 Rx hydralazine 50 mg tablet 100 mg (2 x 50 mg) PO TID Systolic 12/28/23 12/30/23 Unknown Rx blood pressure more than 180 mmHg #7 tabs Allergies Allergy/AdvReac Type Severity Reaction Status Date / Time cefuroxime [From Ceftin] Allergy ALGY-Rash Verified 12/26/23 10:54 cephalexin [From Keflex] Allergy ALGY-Rash Verified 12/26/23 10:54 hydroxyzine [From Vistaril] Allergy ALGY-Anaphy Verified 12/26/23 10:54 laxis Penicillins Allergy ALGY-Redness Verified 12/26/23 10:54 of Skin prochlorperazine Allergy ALGY-Anaphy Verified 12/26/23 10:54 [From Compazine] laxis promethazine [From Phenergan] Allergy ALGY-Anaphy Verified 12/26/23 10:54 laxis venom-honey bee Allergy ALGY-Anaphy Verified 12/26/23 10:54 laxis simvastatin [From Zocor] AdvReac ADR-Heartbu Verified 12/26/23 10:54 rn Current Medications Generic Name Dose Route Start Last Admin Trade Name Freq PRN Reason Stop Dose Admin Albuterol/Ipratropium 3 ml 12/29/23 14:00 12/30/23 07:24 Ipratropium-Albuterol 3 Ml Neb INHALATION 3 ml Q6H.RESP YASMANI Administration Budesonide 0.5 mg 12/29/23 20:00 12/30/23 07:24 Budesonide 0.5 Mg/2 Ml Neb INHALATION 0.5 mg BID.RESPIRATORY YASMANI Administration Hydralazine HCl 20 mg 12/29/23 19:06 12/29/23 23:41 Hydralazine 20 Mg/Ml Inj 1 Ml IVP 20 mg Q8H PRN Administration SBP >= 150 Sodium Chloride 1,000 mls @ 30 mls/hr 12/29/23 14:30 12/29/23 19:23 Sodium Chloride 0.9% IV 12/30/23 14:29 Infused .Q24H YASMANI Infusion Insulin Human Lispro 0 unit 12/29/23 12:00 12/30/23 08:11 Insulin Lispro 100 Unit/1 Ml SUBCUT 6 unit WM&BEDTIME YASMANI Administration Protocol Methimazole 5 mg 12/30/23 09:00 12/30/23 08:11 Methimazole 5 Mg Tablet PO 5 mg DAILY YASMANI Administration Metoprolol Tartrate 5 mg 12/29/23 19:15 12/30/23 11:16 Metoprolol Tartrate 1 Mg/1 Ml Sdv 5 Ml IVP 5 mg Q8H YASMANI Administration Morphine Sulfate 2 mg 12/29/23 11:44 12/29/23 16:17 Morphine 4 Mg/Ml Sdv 1 Ml IVP 2 mg Q6H PRN Administration SEVERE PAIN Morphine Sulfate 2 mg 12/29/23 14:32 12/29/23 14:38 Morphine 4 Mg/Ml Sdv 1 Ml IVP 2 mg Q5M PRN Administration SEVERE PAIN Nitroglycerin 2 inch 12/29/23 19:06 12/30/23 07:49 Nitroglycerin 1 Gm/Inch Oint Pkt TOPICAL 2 inch Q6H YASMANI Administration Pantoprazole Sodium 40 mg 12/29/23 11:45 12/30/23 11:16 Pantoprazole 40 Mg Sdv IVP 40 mg Q12H YASMANI Administration Sucralfate 1 gm 12/29/23 18:00 12/30/23 08:11 Sucralfate 1 Gm Tablet PO 1 gm BID YASMANI Administration Venlafaxine HCl 150 mg 12/29/23 21:00 12/29/23 20:53 Venlafaxine Er (24hr) 150 Mg Capsule PO 150 mg BEDTIME YASMANI Administration Venlafaxine HCl 75 mg 12/29/23 21:00 12/29/23 20:53 Venlafaxine Er (24hr) 75 Mg Capsule PO 75 mg BEDTIME YASMANI Administration PFSH Acute PFSH: Medical History Chronic kidney disease Diabetes mellitus Congestive heart failure Community acquired pneumonia Hypertension, uncontrolled Stable angina Anemia Ischemic cardiomyopathy Atherosclerotic heart disease of [place] coronary artery with other forms of angina pectoris CHF exacerbation Acute non-ST elevation myocardial infarction (NSTEMI) Pulmonary embolism Congestive heart failure Acute respiratory failure with hypoxia Acute exacerbation of CHF (congestive heart failure) PAD (peripheral artery disease) Dyslipidemia HTN (hypertension) NSTEMI (non-ST elevated myocardial infarction) Eczema CAD (coronary artery disease) Clostridioides difficile infection (07/2022) Insomnia CHF (congestive heart failure) Hypertensive urgency Pneumonia due to COVID-19 virus (~06/2022) Colon polyps History of skin cancer Hyperthyroidism Graves disease History of CVA (cerebrovascular accident) COPD (chronic obstructive pulmonary disease) Anxiety Carotid arterial disease ASHD (arteriosclerotic heart disease) Surgical History Status post insertion of iliac artery stent History of coronary artery stent placement History of cardiac catheterization 06/25/2022 Left main artery: Short, patent. Left circumflex artery: Has patent stents, no significant stenosis. LAD:Occluded in the midsegment. RCA: Known occluded. Not injected. SVG to diagonal artery and SVG to RCA are known occluded. Not injected. LOVETT to LAD: Patent. Coronary anatomy unchanged compared to before. History of renal stent Hx of local excision of skin lesion (09/16/20) Left forearm x2 Status post colonoscopy (09/16/20) S/P hysterectomy with oophorectomy S/P cholecystectomy S/P CABG (coronary artery bypass graft) twice, last in 2004 History of endovascular stent graft for abdominal aortic aneurysm (AAA) S/P cataract surgery S/P skin and subcutaneous tissue surgery Family History Sister Mark's disease Sister No problems noted. Mother No problems noted. Other Anesthesia complication Social History Smoking and tobacco/nicotine status: former use of tobacco/nicotine Alcohol intake: current Alcohol intake frequency: holidays/special occasions only Substance/Drug Use: current Vitals/I&O/Wt Last Vital Signs Temp 98.0 F 12/30/23 08:00 Pulse 107 H 12/30/23 10:00 Resp 18 12/30/23 10:00 BP 151/69 12/30/23 10:00 Pulse Ox 97 12/30/23 10:00 O2 Del Method Nasal Cannula 12/30/23 08:00 O2 Flow Rate 2 12/30/23 07:24 FiO2 30 12/30/23 04:00 12/29/23 12/30/23 12/30/23 22:59 06:59 14:59 Intake Total 1450 / 1450 450 / 1900 Output Total 350 / 350 325 / 675 Balance 1100 / 1100 125 / 1225 Weight last 48 hrs Weight 133 lb 4.8 oz Weight 129 lb Weight 127 lb Physical Exam Narrative: General : Patient is well developed , no acute distress, oriented x3 Head : Normal cephalic, a-traumatic. Ears : Pinnae and external canal are normal. Hearing is normal. Eyes : PERRLA, Sclera and injection are normal. No conjunctival discharge. Nose : Mucous membranes are without erythema. Throat : buccal mucosa is normal, gums are without significant recession or hypertrophy. Lungs : Equal chest rise bilaterally, no use of accessory muscles, trachea is midline. Cor : Rate and rhythm are normal. Abdomen : Soft, ND, NT, no g/r/m Extremities : No edema, no cyanosis or clubbing, dorsalis pedis pulses are present bilaterally, non-tender to palpation of calves. Upper extremities are normal bilaterally. Back : non-tender to palpation, no CVA tenderness. Neuro : CN II - XII intact, Upper and lower extremities have equal and full strength Data 12/30/23 05:07 12/30/23 05:07 A&P Assessment and plan (1) Acute upper GI bleed: Plan Pantoprazole 40 mg twice daily Sucralfate EGD The risks and benefits of the procedure, including bleeding, infection, intestinal perforation requiring surgery, missed lesion were explained to the patient. The patient is understanding of the risks and wishes to proceed. Medical management per hospitalist Coding Level of Care Code 25236 Diagnoses Acute upper GI bleed K92.2
[2023-12-30 11:33] LABS: Glucose Point of Care 76 mg/dL (70-110)
[2023-12-30] MEDS: EPINEPHrine 1 mg/mL INJ XX (12:12)
[2023-12-30] MEDS: cetylpyridinium Lozenge 1 EACH MUCOUS MEM (12:44)
[2023-12-30] MEDS: sodium chloride 0.9% 1,000 ML 30 ML IV (12:45)
--- NOTE | 2023-12-30 16:24 | PM.PN ---
Subjective Subjective: Chest pain much improved today. Hemoglobin up to 11.1. 6-hour troponin delta yesterday at 58. Underwent upper GI endoscopy today which showed hiatal hernia without obstruction or gangrene. There was noted to be signs of esophagitis with areas of contact bleeding. This may have been the potential source of bleeding. There was patchy inflammation in the duodenal bulb. She received epinephrine injection into the esophageal cardia. No active bleeding was encountered. Medications: Reviewed: Yes Vitals/I&O/Wt Last Vital Signs Temp 97.7 F 12/30/23 12:23 Pulse 93 12/30/23 16:00 Resp 11 L 12/30/23 16:00 BP 136/76 12/30/23 16:00 Pulse Ox 98 12/30/23 16:00 O2 Del Method Nasal Cannula 12/30/23 13:13 O2 Flow Rate 2 12/30/23 13:13 FiO2 30 12/30/23 04:00 12/30/23 12/30/23 12/30/23 06:59 14:59 22:59 Intake Total 450 / 1900 Output Total 325 / 675 Balance 125 / 1225 Weight last 48 hrs Weight 60.464 kg Weight 58.513 kg Weight 57.606 kg Physical Exam Narrative: General: No acute distress, AO x3 HEENT: PERRLA, pupils bilaterally equal and reactive, pallors not present Chest: Normal vesicular breath sounds, no added sounds, equal good air entry bilaterally CVS: S1-S2 regular, no murmurs, no tachycardia, no gallops, no rubs Abdomen: Soft, nontender, no organomegaly, bowel sounds present Neuro: No focal deficits, no facial deformity, AO x3, power 5/5 in all limbs Data 12/30/23 05:07 12/30/23 05:07 A&P Assessment and plan (1) Acute blood loss anemia: (2) Chronic anticoagulation: (3) Acute upper GI bleed: (4) NSTEMI (non-ST elevated myocardial infarction): Plan 73-year-old lady with a past medical history as outlined above, currently presenting with 2 episodes of melena overnight after recent discharge. She has been on Plavix 75 mg daily and Eliquis 2.5 mg p.o. twice daily. Prior to December 25 she had been on aspirin 81, Plavix 75 and 5 mg p.o. twice daily. Also complaining currently of epigastric pain Clinical concern for upper GI bleeding from ? Gastric ulcer She has thus far received Protonix 80 mg IV in the ER, ordered for 2 units of packed red blood cell transfusion. Start Protonix 40 mg IV every 12 hours thereafter, Carafate 1 g N.p.o. for now patient last had oral intake at 4:30 AM, describes this as ice water only. General surgery consulted for upper GI endoscopy, may be able to be perfromed today Hold Eliquis and Plavix Trend H&H every 6 hours Blood pressure currently 129/71-150 1 over 70 mmHg. Heart rate ranging between 87-1 09 Holding antihypertensives including metoprolol, hydralazine, Imdur today. COPD not currently exacerbated, scheduled nebulization with DuoNeb and budesonide. Hold off on steroids. DNR/ DNI DVT ppx: SCDs only December 30, 2023. Patient was able to complete upper GI endoscopy today which showed findings as above. Epinephrine injected. No active bleeding. She has not had any further episodes of melena during her hospital stay. Continue Protonix 40 mg IV every 12 hours. Status post 2 packed red blood cell transfusion yesterday. Hemoglobin improved to 11.1. Chest pain is resolved today. Appreciate cardiology recommendations. Patient had developed chest pain yesterday preprocedure, troponins were taken at that time which were in the 200 range, delta of 58 at 6 hours. This was higher than her recent hospital discharge. Echocardiogram shows severe diffuse hypokinesia of the left ventricle with an EF of 15 to 20%. Mildly dilated LV cavity. Compared to September 2023 there was worsening of the mitral regurgitation, severe MR now. Anticoagulation and antiplatelets currently remain on hold given the bleeding as noted above. Will likely be able to resume in a stepwise fashion starting tomorrow. Attestations Medical Necessity Statement*: s/p UGIE today, management of NSTEMI Coding Level of Care Code Acute Code for [facility] Diagnoses Acute blood loss anemia D62 Chronic anticoagulation Z79.01 Acute upper GI bleed K92.2 NSTEMI (non-ST elevated myocardial infarction) I21.4
[2023-12-30 17:55] LABS: Glucose Point of Care 110 mg/dL (70-110)
[2023-12-30] MEDS: venlafaxine ER (24HR) 150 mg Capsule PO (20:07)
[2023-12-30] MEDS: venlafaxine ER (24HR) 75 mg Capsule PO (20:07)
[2023-12-30 23:01] LABS: Glucose Point of Care 232 mg/dL (70-110)
[2023-12-31] VITALS (25 sets, daily range): BP systolic 113–147; BP diastolic 51–78; PULSE 84–101; RESP 13–23; TEMP 36.6–36.9; O2SAT 94–100
[2023-12-31] MEDS: nitroglycerin 1 gm/inch oint Pkt 2 INCH TOPICAL ×4 (00:51→17:33)
[2023-12-31] MEDS: ipratropium-albuterol 3 mL Neb INHALATION ×3 (02:14→13:01)
[2023-12-31] MEDS: metoprolol tartrate 1 mg/1 mL SDV 5 mL 5 MG IVP (03:04)
[2023-12-31 07:49] LABS: Basophils % 0.2 %; Eosinophils # 0.1 10^3/uL (0.0-0.8); Eosinophils % 1.3 %; Hematocrit 33.5 % (36-47); Lymphocytes # 1.2 10^3/uL (0.8-4.8); Lymphocytes % 13.2 %; Mean Corpuscular HGB Conc 30.4 g/dL (30-55); Mean Corpuscular Hemoglobin 25.4 pg (27-33); Mean Corpuscular Volume 83.5 fl (85-98); Mean Platelet Volume 10.8 fL (7.4-10.4); Monocytes # 0.6 10^3/uL (0.2-0.9); Monocytes % 6.1 %; Neutrophils # 7.13 10^3/uL (1.8-7.7); Neutrophils % 78.9 %; Nucleated Red Blood Cells % 0 %; Platelet Count 258 10^3/cmm (157-399); Red Blood Count 4.01 10^6/uL (3.85-5.65); Red Cell Distribution Width 16.5 % (12.1-15.1); White Blood Count 9.04 10^3/uL (3.29-11.43)
[2023-12-31] MEDS: budesonide 0.5 mg/2 mL Neb INHALATION (08:08)
[2023-12-31 08:09] LABS: Alanine Aminotransferase 22 U/L (0-33); Albumin Level 2.8 g/dL (3.5-5.2); Alkaline Phosphatase 91 U/L (35-105); Anion Gap 16.5 (5-19); Aspartate Amino Transferase 60 U/L (0-32); Blood Urea Nitrogen 66 mg/dL (8-23); Calcium 8.7 mg/dL (8.5-10.5); Carbon Dioxide 17 mmol/L (22-29); Chloride 111 mmol/L (98-107); Creatinine Clr Calc Pharmacy 19.0163; Glucose 141 mg/dL (65-115); Osmolality Calculated 311 mOsm/kg (285-295); Potassium 4.5 mmol/L (3.5-5.1); Sodium 140 mmol/L (136-145); Total Bilirubin 0.3 mg/dL (0.15-1.2); Total Protein 5.8 g/dL (6.6-8.7)
[2023-12-31 08:17] LABS: Glucose Point of Care 148 mg/dL (70-110)
[2023-12-31] MEDS: methIMAzole 5 MG Tablet PO (08:19)
[2023-12-31] MEDS: metoprolol succinate ER (24 HR) 50 mg Tablet PO (08:19)
[2023-12-31] MEDS: insulin lispro 100 unit/1 mL SUBCUT ×2 (08:19→12:31)
[2023-12-31] MEDS: sacubitril/valsartan 24-26 mg Tablet 2 EACH PO ×2 (08:19→17:33)
--- NOTE | 2023-12-31 08:47 | PC.SOCIAL ---
IMM Update pg 2 of IMM Updated and reviewed w/ patient. Copy provided and copy dated, initialed and placed in chart @ this time.
--- NOTE | 2023-12-31 11:13 | PM.PN ---
Subjective Subjective: Patient feeling better at rest but says with physical activity, gets short of breath. Vitals/I&O/Wt Last Vital Signs Temp 97.8 F 12/31/23 08:00 Pulse 93 12/31/23 10:00 Resp 18 12/31/23 10:00 BP 143/76 12/31/23 10:00 Pulse Ox 96 12/31/23 10:00 O2 Del Method Nasal Cannula 12/31/23 08:09 O2 Flow Rate 2 12/31/23 08:09 FiO2 30 12/30/23 04:00 12/30/23 12/31/23 12/31/23 22:59 06:59 14:59 Intake Total 650 / 650 400 / 1050 500 / 500 Output Total 600 / 600 650 / 1250 200 / 200 Balance 50 / 50 -250 / -200 300 / 300 Weight last 48 hrs Weight 127 lb 12.8 oz Weight 133 lb 4.8 oz Weight 129 lb Physical Exam Narrative: GENERAL: Patient is alert, awake and oriented x3. [] NECK: No jugular vein distension. [] HEENT: No cyanosis. No icterus. No pallor. [] HEART: Regular S1 and S2. Grade 3/6 systolic murmur LUNGS: Clear to auscultate bilaterally. [] CENTRAL NERVOUS SYSTEM: Grossly nonfocal. [] EXTREMITIES: Lower extremities with 1+ edema bilaterally. Data 12/31/23 07:40 12/31/23 07:40 A&P Assessment and plan (1) Atherosclerotic heart disease [place] coronary artery w/angina pectoris: Qualifiers: [place] vs. 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 Also has severe mitral regurgitation. This has progressed. Patient is not a candidate for repeat open heart surgery secondary to 2 prior CABGs. Troponins have gone up. EKG performed yesterday showed esophagitis with bleeding noted. Epinephrine injection done. Hemoglobin is stable. Not on antiplatelet/anticoagulation at this time. Can resume antiplatelet agents today. Monitor H and H Recommend transfer to tertiary care center for MitraClip assessment. Will also need ischemic workup given troponin elevation. May need stress test. Thank you for involving us with care of this patient. Please call with questions. Attestations Medical Necessity Statement*: Care expected to cross 2 midnights. Coding Level of Care Code Acute Code for g Fwd Diagnoses Atherosclerosis of [place] coronary artery of [place] heart with angina pectoris I25.119 [place] vs. 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
[2023-12-31 12:27] LABS: Glucose Point of Care 194 mg/dL (70-110)
[2023-12-31] MEDS: pantoprazole 40 mg SDV IVP (12:32)
--- NOTE | 2023-12-31 13:00 | PC.NURSE ---
Transfer Note Patient transferred to CSU room 106 from ICU via wheelchair. Handoff report given to JENNIFER [place]. Patient oriented to environment and equipment. Covering service notified. Orders reviewed and will continue to monitor. Upon transfer patient is alert/oriented x4 on 2LNC. All patient belongings transferred with patient and placed at bedside. No reports of pain.
--- NOTE | 2023-12-31 15:14 | PM.TDS ---
Transfer Summary Providers Date of Admission: 12/29/23 15:33 Date of Discharge/Transfer: 12/31/23 Attending Provider at Admission: Misa Landry MD Attending Provider at Transfer: Misa Landry MD Primary Care Provider: Jocelyne Kirby Transfer Plans: Anticipated date of transfer: 12/31/23. Receiving Facility: [facility] . Receiving Provider: hospitalist. Diagnoses at Discharge Discharge Diagnosis (1) Atherosclerotic heart disease [place] coronary artery w/angina pectoris: Status: Acute Qualifiers: [place] vs. transplanted heart: [place] heart Qualified Code(s): I25.119 - Atherosclerotic heart disease of [place] coronary artery with unspecified angina pectoris (2) Acute on chronic systolic heart failure: Status: Acute (3) Acute blood loss anemia: Status: Acute (4) Accelerated hypertension: Status: Acute (5) Chronic anticoagulation: Status: Acute (6) Diabetes mellitus: Status: Acute Qualifiers: Diabetes mellitus complication detail: with peripheral angiopathy without gangrene Diabetes mellitus complication status: with circulatory complication Diabetes mellitus general helper insulin use: with custodial use Diabetes mellitus type: type 2 Qualified Code(s): E11.51 - Type 2 diabetes mellitus with diabetic peripheral angiopathy without gangrene; Z79.4 - line patrolman (current) use of insulin (7) Chronic kidney disease: Status: Chronic Qualifiers: Chronic kidney disease stage: stage 3 (moderate) Chronic kidney disease stage 3 subtype: stage 3a (GFR 45-59) Qualified Code(s): N18.31 - Chronic kidney disease, stage 3a (8) NSTEMI (non-ST elevated myocardial infarction): Status: Acute Reason for Visit Reason for Visit SOB Hospital Course Hospital Course Romi Yuan is a 73 year old female recently discharged from the hospital on December 28, 2023 after being treated for hypertensive urgency and flash pulmonary edema, acute on chronic heart failure exacerbation. She carries a past medical history of coronary artery disease, last time NSTEMI in September 2023 at which time she had declined any intervention due to concern for RICARDO. She was managed medically.. Last angiogram was in June of this year which had showed patent left circumflex artery. SVG graft to RCA, SVG graft to OM and [place] RCA are known occluded. No stents were placed at that time. Patient states she has previously had multiple stents to the heart and also apparently has peripheral artery disease with stents in the renal artery and abdominal aorta per her description. None of these interventions were in the past year. She currently returned to the hospital on December 29, 2023 after having had 2 episodes of melena shortly after discharge. She felt extremely weak and dizzy. Her hemoglobin had dropped to 6.9, at the time of recent discharge it had been at 8.9. Patient has chronically been on aspirin Plavix and Eliquis 2.5 mg p.o. twice daily, on December 27 this had been changed to Plavix and Eliquis only. She received 2 packed red blood cell transfusion. Hemoglobin is currently stabilized at 10.2. She underwent EGD on December 30, 2023 which showed a hiatal hernia and unspecified esophagitis. There was contact bleeding from the area of the esophagitis. Epinephrine was injected into the esophageal cardia. No further active bleeding was noted. EGD was originally expected to be performed on December 28, however shortly before the procedure patient developed chest pain. Troponins were checked which returned at 237--> 220--> 331 (previously had been 79 on December 26, 2023)/ EKG showed ST-T wave depression in leads I and II. Cardiology was consulted due to concern for NSTEMI. Echocardiogram showed severe diffuse hypokinesia of the left ventricle with an EF of 15 to 20%, which was reduced compared to September 2023 when the EF had been 45 to 50%. Additionally now patient also has severe mitral regurgitation.Patient is not a candidate for repeat open heart surgery secondary to 2 prior CABGs. Cariology recommends transfer to tertiary care center for MitraClip assessment. Will also need ischemic workup given troponin elevation. May need stress test. Physical Exam Narrative: General: No acute distress, AO x3 HEENT: PERRLA, pupils bilaterally equal and reactive, pallors not present Chest: Normal vesicular breath sounds, no added sounds, equal good air entry bilaterally CVS: S1-S2 regular, no murmurs, no tachycardia, no gallops, no rubs Abdomen: Soft, nontender, no organomegaly, bowel sounds present Neuro: No focal deficits, no facial deformity, AO x3, power 5/5 in all limbs TS Data Studies Completed and Pending Pending at discharge Category Date Time Status CMP [Comprehensive Metabolic Panel] AM LABS Lab 01/01/24 04:00 Ordered Complete Blood Count w/Auto AM LABS Lab 01/01/24 04:00 Ordered Pathology: Surgical [PTH] Routine Pth 12/30/23 12:16 Received Completed Studies During Hospitalization Category Date Time Status XR chest 1V portable [id number] Stat Exams 12/29/23 09:53 Completed CV. echo limited [id number] Routine Ultrasound 12/29/23 18:36 Completed Laboratory Last Values WBC 9.04 10^3/uL (3.29-11.43) 12/31/23 07:40 RBC 4.01 10^6/uL (3.85-5.65) 12/31/23 07:40 Hgb 10.20 g/dL (11.27-16.99) L 12/31/23 07:40 Hct 33.5 % (36-47) L 12/31/23 07:40 MCV 83.5 fl (85-98) L 12/31/23 07:40 MCH 25.4 pg (27-33) L 12/31/23 07:40 MCHC 30.4 g/dL (30-55) 12/31/23 07:40 RDW 16.5 % (12.1-15.1) H 12/31/23 07:40 Plt Count 258 10^3/cmm (157-399) 12/31/23 07:40 MPV 10.8 fL (7.4-10.4) H 12/31/23 07:40 Neut % (Auto) 78.9 % 12/31/23 07:40 Lymph % (Auto) 13.2 % 12/31/23 07:40 [place] % (Auto) 6.1 % 12/31/23 07:40 Eos % (Auto) 1.3 % 12/31/23 07:40 Baso % (Auto) 0.2 % 12/31/23 07:40 Neut # (Auto) 7.13 10^3/uL (1.8-7.7) 12/31/23 07:40 Lymph # (Auto) 1.2 10^3/uL (0.8-4.8) 12/31/23 07:40 [place] # (Auto) 0.6 10^3/uL (0.2-0.9) 12/31/23 07:40 Eos # (Auto) 0.1 10^3/uL (0.0-0.8) 12/31/23 07:40 Baso # (Auto) 0.0 10^3/uL (0.0-0.1) 12/31/23 07:40 Nucleated RBC % (auto) 0 % 12/31/23 07:40 Nucleated RBCs # 0.0 /100WBC 12/31/23 07:40 Specimen Type Arterial 12/29/23 10:05 Sample Site Brachial, left 12/29/23 10:05 ABG pH 7.39 (7.35-7.45) 12/29/23 10:05 ABG pCO2 33.1 mmHg (35-45) L 12/29/23 10:05 ABG pO2 84.4 mmHg (80.0-100.0) 12/29/23 10:05 ABG PO2/FiO2 Ratio 401 12/29/23 10:05 ABG HCO3 19.8 mmol/L (22-26) L 12/29/23 10:05 ABG O2 Saturation 97.4 12/29/23 10:05 ABG Base Excess -4.8 mmol/L (-2.0-2.0) L 12/29/23 10:05 Rene Test Pos 12/29/23 10:05 A-a O2 Gradient 3.1 mmHg (5-10) L 12/29/23 10:05 Hematocrit 22.3 % (37-47) L 12/29/23 10:05 Hgb O2 Saturation 94.6 % (95-100) L 12/29/23 10:05 Carboxyhemoglobin 2.4 %THgb (0.4-20.1) 12/29/23 10:05 Methemoglobin 0.4 % (0.4-1.5) 12/29/23 10:05 Total Hemoglobin 7.3 g/dL (12-16) L 12/29/23 10:05 Sodium 140.0 mmol/L (131-143) 12/29/23 10:05 Potassium 3.9 mmol/L (3.5-5.0) 12/29/23 10:05 Glucose 164.0 mg/dL (70-115) H 12/29/23 10:05 Ionized Calcium 1.3 mmol/L (1.1-1.4) 12/29/23 10:05 O2 Delivery Device Room air 12/29/23 10:05 FiO2 21.0 % 12/29/23 10:05 Bait Maker ID Felicity 12/29/23 10:05 Sodium 140 mmol/L (136-145) 12/31/23 07:40 Potassium 4.5 mmol/L (3.5-5.1) 12/31/23 07:40 Chloride 111 mmol/L (98-107) H 12/31/23 07:40 Carbon Dioxide 17 mmol/L (22-29) L 12/31/23 07:40 Anion Gap 16.5 (5-19) 12/31/23 07:40 BUN 66 mg/dL (8-23) H 12/31/23 07:40 Creatinine 2.1 mg/dL (0.5-0.9) H 12/31/23 07:40 GFR Calculation Not Reportable 12/31/23 07:40 Glucose 141 mg/dL (65-115) H 12/31/23 07:40 POC Glucose 194 mg/dL (70-110) H 12/31/23 12:23 Calculated Osmolality 311 mOsm/kg (285-295) H 12/31/23 07:40 Calcium 8.7 mg/dL (8.5-10.5) 12/31/23 07:40 Total Bilirubin 0.3 mg/dL (0.15-1.2) 12/31/23 07:40 AST 60 U/L (0-32) H 12/31/23 07:40 ALT 22 U/L (0-33) 12/31/23 07:40 Alkaline Phosphatase 91 U/L (35-105) 12/31/23 07:40 Troponin T 5th Gen ng/L 273 ng/L (0-10) H* 12/29/23 09:31 Troponin T 120 Minute 220.9 ng/L (0-10) H 12/29/23 13:55 Delta Troponin T -52.1 ABS# (0-10) L 12/29/23 13:55 Troponin T Hi Sens 6Hr 331.8 ng/L (0-10) H 12/29/23 17:31 Troponin T Hi Sens 6Hr Delta 58.8 ng/L (0-12) H* 12/29/23 17:31 NT-Pro-B Natriuret Pep > 58061 pg/mL (0-125) H 12/29/23 09:31 Total Protein 5.8 g/dL (6.6-8.7) L 12/31/23 07:40 Albumin 2.8 g/dL (3.5-5.2) L 12/31/23 07:40 Globulin 3.0 g/dL (1.3-4.6) 12/31/23 07:40 Blood Type A Positive 12/29/23 11:15 Rho(D) Type Rh positive 12/29/23 11:15 Antibody Screen Negative 12/29/23 11:15 Crossmatch See Detail 12/29/23 11:15 Radiology Impressions Chest X-Ray 12/29/23 09:53 IMPRESSION: 1. Status post CABG. 2. No pneumonia. Recent Clincial Data Last Vital Signs Temp 97.8 F 12/31/23 08:00 Pulse 95 12/31/23 13:02 Resp 18 12/31/23 13:02 BP 113/59 12/31/23 12:32 Pulse Ox 94 12/31/23 13:02 O2 Del Method Room Air 12/31/23 13:02 O2 Flow Rate 2 12/31/23 08:09 FiO2 30 12/30/23 04:00 Vital Signs Temp Pulse Resp BP Pulse Ox O2 Del Method O2 Flow Rate 12/31/23 13:02 95 18 94 Room Air 12/31/23 12:32 91 113/59 12/31/23 12:00 88 16 135/66 95 12/31/23 11:00 90 13 138/69 94 12/31/23 10:00 93 18 143/76 96 12/31/23 09:00 101 H 20 H 143/73 99 12/31/23 08:09 95 18 98 Nasal Cannula 2 12/31/23 08:00 97.8 F 94 17 130/60 99 Nasal Cannula 2 12/31/23 07:00 92 15 119/72 99 12/31/23 06:26 92 119/72 12/31/23 06:00 89 15 140/62 100 Nasal Cannula 2 12/31/23 05:46 90 12/31/23 05:00 87 22 H 115/51 97 12/31/23 04:00 98.4 F 84 21 H 147/66 99 Nasal Cannula 2 Intake & Output/Weight 12/29/23 12/30/23 12/31/23 01/01/24 06:59 06:59 06:59 06:59 Intake Total 1900 / 1900 1050 / 1050 860 / 860 Output Total 675 / 675 1250 / 1250 200 / 200 Balance 1225 / 1225 -200 / -200 660 / 660 Weight 60.464 kg 57.969 kg Vitals Last Vital Signs Temp 97.8 F 12/31/23 08:00 Pulse 95 12/31/23 13:02 Resp 18 12/31/23 13:02 BP 113/59 12/31/23 12:32 Pulse Ox 94 12/31/23 13:02 O2 Del Method Room Air 12/31/23 13:02 O2 Flow Rate 2 12/31/23 08:09 FiO2 30 12/30/23 04:00 TS Medications Medications Acetaminophen (Acetaminophen 325 Mg Tablet) 650 mg PO Q6H PRN PRN Reason: Mild/Mod Pain Or Temp >/= 101 Albuterol/Ipratropium (Ipratropium-Albuterol 3 Ml Neb) 3 ml INHALATION Q6H.RESP YASMANI Last Admin: 12/31/23 13:01 Dose: 3 ml Budesonide (Budesonide 0.5 Mg/2 Ml Neb) 0.5 mg INHALATION BID.RESPIRATORY YASMANI Last Admin: 12/31/23 08:08 Dose: 0.5 mg Glucagon (Glucagon 1 Mg/Ml Kit 1 Ml) 1 mg IM ONCE PRN; Protocol PRN Reason: Adult Acute Hypoglycemia Nursing Prot. Hydralazine HCl (Hydralazine 20 Mg/Ml Inj 1 Ml) 20 mg IVP Q8H PRN PRN Reason: SBP >= 150 Last Admin: 12/29/23 23:41 Dose: 20 mg Dextrose (D5w) 500 mls @ 0 mls/hr IV ONCE PRN; Protocol PRN Reason: Adult Acute Hypoglycemia Prot Dextrose (D10w) 125 mls @ 750 mls/hr IV PRN PRN; Protocol PRN Reason: Adult Acute Hypoglycemia Nursing Protocol Dextrose (D10w) 250 mls @ 1,000 mls/hr IV PRN PRN; Protocol PRN Reason: Adult Acute Hypoglycemia Nursing Protocol Insulin Human Lispro (Insulin Lispro 100 Unit/1 Ml) 0 unit SUBCUT WM&BEDTIME YASMANI; Protocol Last Admin: 12/31/23 12:31 Dose: 8 unit Lidocaine HCl (Lidocaine 1% Inj 10 Ml (Per Ml)) 0.1 ml INTRADERMA PRN PRN PRN Reason: anesthetic prior to IV start Lidocaine HCl (Lidocaine 2% Viscous 15 Ml Udc) 1 ml TOPICAL PRN PRN PRN Reason: Anesthetic prior to IV start Lidocaine HCl (Lidocaine 2% Viscous 15 Ml Udc) 1 ml TOPICAL PRN PRN PRN Reason: Anesthetic prior to IV start Methimazole (Methimazole 5 Mg Tablet) 5 mg PO DAILY [facility] Last Admin: 12/31/23 08:19 Dose: 5 mg Metoprolol Succinate (Metoprolol Succinate Er (24 Hr) 50 Mg Tablet) 50 mg PO DAILY [facility] Last Admin: 12/31/23 08:19 Dose: 50 mg Midazolam HCl (Midazolam 1 Mg/Ml Inj 2 Ml) 2 mg IVP Q5M PRN PRN Reason: Preop Anxiety Midazolam HCl (Midazolam 1 Mg/Ml Inj 2 Ml) 2 mg IVP Q5M PRN PRN Reason: Preop Anxiety Morphine Sulfate (Morphine 4 Mg/Ml Sdv 1 Ml) 2 mg IVP Q6H PRN PRN Reason: SEVERE PAIN Last Admin: 12/29/23 16:17 Dose: 2 mg Morphine Sulfate (Morphine 4 Mg/Ml Sdv 1 Ml) 0 mg IVP Q5M PRN PRN Reason: Breakthrough Pain PACU PhaseII Morphine Sulfate (Morphine 4 Mg/Ml Sdv 1 Ml) 2 mg IVP Q5M PRN PRN Reason: SEVERE PAIN Last Admin: 12/29/23 14:38 Dose: 2 mg Morphine Sulfate (Morphine 4 Mg/Ml Sdv 1 Ml) 0 mg IVP Q5M PRN PRN Reason: Breakthrough Pain PACU PhaseII Nitroglycerin (Nitroglycerin 1 Gm/Inch Oint Pkt) 2 inch TOPICAL Q6H [facility] Last Admin: 12/31/23 12:32 Dose: 2 inch Ondansetron HCl (Ondansetron 2 Mg/Ml Sdv 2 Ml) 4 mg IVP Q8H PRN PRN Reason: vomiting, or N/V if npo Ondansetron HCl (Ondansetron 2 Mg/Ml Sdv 2 Ml) 4 mg IVP Q15M PRN PRN Reason: Nausea/Vomiting PACU PHASE II Ondansetron HCl (Ondansetron 2 Mg/Ml Sdv 2 Ml) 4 mg IVP Q15M PRN PRN Reason: Nausea/Vomiting PACU PHASE II Pantoprazole Sodium (Pantoprazole 40 Mg Sdv) 40 mg IVP Q12H [facility] Last Admin: 12/31/23 12:32 Dose: 40 mg Sacubitril/Valsartan (Sacubitril/Valsartan 24-26 Mg Tablet) 2 each PO BID [facility] Last Admin: 12/31/23 08:19 Dose: 2 each Venlafaxine HCl (Venlafaxine Er (24hr) 150 Mg Capsule) 150 mg PO BEDTIME [facility] Last Admin: 12/30/23 20:07 Dose: 150 mg Venlafaxine HCl (Venlafaxine Er (24hr) 75 Mg Capsule) 75 mg PO BEDTIME [facility] Last Admin: 12/30/23 20:07 Dose: 75 mg Discontinued Medications Albuterol Sulfate (Albuterol 2.5 Mg/3 Ml Neb) 2.5 mg INHALATION ONCE ONE Stop: 12/29/23 09:53 Last Admin: 12/29/23 10:19 Dose: 2.5 mg Albuterol/Ipratropium (Ipratropium-Albuterol 3 Ml Neb) 3 ml INHALATION ONCE ONE Stop: 12/29/23 09:53 Last Admin: 12/29/23 10:19 Dose: 3 ml Albuterol/Ipratropium (Ipratropium-Albuterol 3 Ml Neb) 3 ml INHALATION Q6H [facility] Last Admin: 12/29/23 15:54 Dose: 3 ml Benzocaine (Cetylpyridinium Lozenge) 1 each MUCOUS MEM ONCE ONE Stop: 12/29/23 14:21 Last Admin: 12/29/23 15:23 Dose: Not Given Benzocaine (Cetylpyridinium Lozenge) 1 each MUCOUS MEM ONCE ONE Stop: 12/30/23 11:59 Last Admin: 12/30/23 12:44 Dose: 1 each Benzocaine/Butamben/Tetracaine HCl (Cetacaine [place] 5 Gm Can) Confirm Administered Dose 5 spray .ROUTE .STK-MED ONE Stop: 12/30/23 11:50 Epinephrine HCl (Epinephrine 1 Mg/Ml Inj) 1 mg XX ONCE ONE Stop: 12/30/23 12:12 Last Admin: 12/30/23 12:12 Dose: 1 mg Furosemide (Furosemide 10 Mg/Ml Sdv 2ml) 20 mg IVP ONCE ONE Stop: 12/29/23 18:01 Last Admin: 12/29/23 19:02 Dose: 20 mg Hydralazine HCl (Hydralazine 20 Mg/Ml Inj 1 Ml) 10 mg IVP Q4H PRN PRN Reason: SBP> 180 Sodium Chloride (Sodium Chloride 0.9%) 1,000 mls @ 30 mls/hr IV .Q24H [facility] Stop: 12/30/23 14:29 Last Infusion: 12/29/23 19:23 Dose: Infused Tranexamic Acid (Tranexamic Acid) 1,000 mg in 100 mls @ 600 mls/hr IV ONCE ONE Stop: 12/29/23 14:30 Last Admin: 12/29/23 15:26 Dose: Not Given Tranexamic Acid (Tranexamic Acid) 1,000 mg in 100 mls @ 600 mls/hr IV ONCE ONE Stop: 12/29/23 15:39 Last Admin: 12/29/23 15:27 Dose: Not Given Sodium Chloride (Sodium Chloride 0.9% (100 Ml)) Confirm Administered Dose 100 mls @ as directed .ROUTE .STK-MED ONE Stop: 12/29/23 15:21 Sodium Chloride (Sodium Chloride 0.9%) 1,000 mls @ 30 mls/hr IV .Q24H [facility] Stop: 12/31/23 11:59 Last Admin: 12/30/23 12:45 Dose: 30 mls/hr Ketamine HCl (Ketamine 50 Mg/Ml Syr 1 Ml) Confirm Administered Dose 50 mg .ROUTE .STK-MED ONE Stop: 12/30/23 11:46 Lidocaine HCl (Lidocaine 1% Inj 10 Ml (Per Ml)) 0.1 ml INTRADERMA PRN PRN PRN Reason: anesthetic prior to IV start Stop: 12/31/23 11:57 Methylprednisolone Sodium Succinate (Methylprednisolone Sod Succ 125 Mg/2 Ml Inj) 125 mg IVP ONCE ONE Stop: 12/29/23 09:53 Last Admin: 12/29/23 10:04 Dose: 125 mg Metoprolol Tartrate (Metoprolol Tartrate 1 Mg/1 Ml Sdv 5 Ml) 5 mg IVP Q8H [facility] Last Admin: 12/31/23 03:04 Dose: 5 mg Midazolam HCl (Midazolam 1 Mg/Ml Inj 2 Ml) Confirm Administered Dose 2 mg .ROUTE .STK-MED ONE Stop: 12/30/23 11:08 Nitroglycerin (Nitroglycerin 1 Gm/Inch Oint Pkt) 1 inch TOPICAL Q6H YASMANI Last Admin: 12/29/23 16:32 Dose: 1 inch Pantoprazole Sodium (Pantoprazole 40 Mg Sdv) 80 mg IVP ONCE ONE Stop: 12/29/23 11:05 Last Admin: 12/29/23 11:43 Dose: 80 mg Sodium Chloride (Sodium Chloride 0.9% 100 Ml Bag) 50 ml IV PRN PRN PRN Reason: Blood transfusion prime and flush Stop: 12/30/23 11:05 Last Admin: 12/29/23 15:47 Dose: 50 ml Sucralfate (Sucralfate 1 Gm Tablet) 1 gm PO BID [facility] Last Admin: 12/30/23 08:11 Dose: 1 gm Allergies cefuroxime [From Ceftin] Allergy (Verified 12/26/23 10:54) ALGY-Rash cephalexin [From Keflex] Allergy (Verified 12/26/23 10:54) ALGY-Rash hydroxyzine [From Vistaril] Allergy (Verified 12/26/23 10:54) ALGY-Anaphylaxis Penicillins Allergy (Verified 12/26/23 10:54) ALGY-Redness of Skin prochlorperazine [From Compazine] Allergy (Verified 12/26/23 10:54) ALGY-Anaphylaxis promethazine [From Phenergan] Allergy (Verified 12/26/23 10:54) ALGY-Anaphylaxis venom-honey bee Allergy (Verified 12/26/23 10:54) ALGY-Anaphylaxis simvastatin [From Zocor] Adverse Reaction (Verified 12/26/23 10:54) ADR-Heartburn Home Medications umeclidinium 62.5 mcg-vilanterol 25 mcg/actuation powdr for inhalation (Anoro Ellipta) 1 inh inhalation DAILY 07/20/19 [History Confirmed 12/30/23] venlafaxine 150 mg capsule,extended release 24 hr (Effexor XR) See Rx Instructions .Route .COMPLEX 07/20/19 [History Confirmed 12/30/23] methimazole 5 mg tablet 5 mg PO DAILY #30 tabs 03/11/20 [Rx Confirmed 12/30/23] blood sugar diagnostic (Accu-Chek Ana M Plus test strips) #120 ea 06/23/21 [Rx Confirmed 12/30/23] clopidogrel 75 mg tablet (Plavix) 75 mg PO DAILY #60 tabs 06/15/22 [Rx Confirmed 12/30/23] acitretin 10 mg capsule 10 mg PO QAM 06/19/22 [History Confirmed 12/30/23] atorvastatin 40 mg tablet 40 mg PO BEDTIME 06/19/22 [History Confirmed 12/30/23] venlafaxine 75 mg capsule,extended release 24 hr See Rx Instructions .Route .COMPLEX 06/19/22 [History Confirmed 12/30/23] albuterol sulfate 90 mcg/actuation aerosol inhaler (Ventolin HFA) 2 puff inhalation QID PRN Shortness Of Breath 07/09/22 [History Confirmed 12/30/23] insulin lispro 100 unit/mL subcutaneous pen (Humalog KwikPen (U-100) Insulin) 10 unit SUBCUT TID 07/09/22 [History Confirmed 12/30/23] nitroglycerin 0.4 mg sublingual tablet (Nitrostat) 0.4 mg sublingual Q5M PRN Chest Pain 07/09/22 [History Confirmed 12/30/23] tizanidine 4 mg tablet 4 mg PO BEDTIME 07/09/22 [History Confirmed 12/30/23] empagliflozin 10 mg tablet (Jardiance) 10 mg PO DAILY 09/07/22 [History Confirmed 12/30/23] apixaban 2.5 mg tablet 2.5 mg PO BID #180 tabs 05/19/23 [Rx Confirmed 12/30/23] calcitriol 0.25 mcg capsule See Rx Instructions .Route .COMPLEX 06/17/23 [History Confirmed 12/30/23] ergocalciferol (vitamin D2) 1,250 mcg (50,000 unit) capsule (Vitamin D2) 50,000 unit PO Q7D 09/03/23 [History Confirmed 12/30/23] insulin glargine 100 unit/mL (3 mL) subcutaneous pen (Lantus Solostar U-100 Insulin) 20 unit SUBCUT DAILY 09/03/23 [History Confirmed 12/30/23] metoprolol succinate 50 mg tablet,extended release 24 hr 50 mg PO DAILY 11/12/23 [History Confirmed 12/30/23] potassium chloride 10 mEq tablet,extended release 10 meq PO DAILY #20 tabs 11/12/23 [Rx Confirmed 12/30/23] acetaminophen 500 mg tablet 500 mg PO BEDTIME 11/29/23 [History Confirmed 12/30/23] ipratropium 0.5 mg-albuterol 3 mg (2.5 mg base)/3 mL nebulization soln 3 ml inhalation QID PRN Shortness Of Breath 11/29/23 [History Confirmed 12/30/23] ferrous sulfate 325 mg (65 mg iron) tablet (FeroSul) 325 mg PO Q12H 12/27/23 [History Confirmed 12/30/23] isosorbide mononitrate 60 mg tablet,extended release 24 hr 60 mg PO BID 12/27/23 [History Confirmed 12/30/23] sacubitril 49 mg-valsartan 51 mg tablet (Entresto) 1 tab PO BID 12/27/23 [History Confirmed 12/30/23] furosemide 40 mg tablet 40 mg PO BID #60 tabs 12/28/23 [Rx Confirmed 12/30/23] hydralazine 50 mg tablet 100 mg (2 x 50 mg) PO TID Systolic blood pressure more than 180 mmHg #7 tabs 12/28/23 [Rx Confirmed 12/30/23] Discharge Plan Discharge Patient Disposition: Xfer Other Condition: Stable Prescriptions: No Action Anoro Ellipta 62.5-25 mcg/actuation blister with device 1 inh INHALATION DAILY venlafaxine [Effexor XR] 150 mg capsule,extended release 24hr See Rx Instructions .ROUTE .COMPLEX Rx Instructions: TAKE 150 MG BY MOUTH AT BEDTIME ALONG WITH 75 MG Jardiance 10 mg tablet 10 mg PO DAILY apixaban 2.5 mg tablet 2.5 mg PO BID Qty: 180 2RF methimazole 5 mg tablet 5 mg PO DAILY Qty: 30 3RF (DME) Accu-Chek Ana M Plus test strp Strip See Rx Instructions .ROUTE .MEDSUPPLY Qty: 120 3RF Rx Instructions: check blood glucose four times a day tizanidine 4 mg tablet 4 mg PO BEDTIME nitroglycerin [Nitrostat] 0.4 mg Tablet, Sublingual 0.4 mg SUBLINGUAL Q5M PRN (Reason: Chest Pain) Rx Instructions: do not exceed 3 doses per episode insulin lispro [Humalog KwikPen Insulin] 100 unit/mL Insulin Pen 10 unit SUBCUT TID albuterol sulfate [Ventolin HFA] 90 mcg/actuation Hfa Aerosol Inhaler 2 puff INHALATION QID PRN (Reason: Shortness Of Breath) calcitriol 0.25 mcg capsule See Rx Instructions .ROUTE .COMPLEX Rx Instructions: TAKE 0.25 mcg orally 3 TIMES WEEKLY ON WEDNESDAY, WEDNESDAY, AND WEDNESDAY IN THE MORNING. metoprolol succinate 50 mg tablet extended release 24 hr 50 mg PO DAILY potassium chloride 10 mEq tablet extended release 10 meq PO DAILY Qty: 20 0RF acetaminophen 500 mg Tablet 500 mg PO BEDTIME ipratropium-albuterol 0.5 mg-3 mg(2.5 mg base)/3 mL solution for nebulization 3 ml INHALATION QID PRN (Reason: Shortness Of Breath) clopidogrel [Plavix] 75 mg tablet 75 mg PO DAILY Qty: 60 0RF atorvastatin 40 mg tablet 40 mg PO BEDTIME venlafaxine 75 mg capsule,extended release 24hr See Rx Instructions .ROUTE .COMPLEX Rx Instructions: TAKE 75 MG BY MOUTH AT BEDTIME ALONG WITH 150 MG acitretin 10 mg capsule 10 mg PO QAM insulin glargine [Lantus Solostar U-100 Insulin] 100 unit/mL (3 mL) insulin pen 20 unit SUBCUT DAILY ergocalciferol (vitamin D2) [Vitamin D2] 1,250 mcg (50,000 unit) capsule 50,000 unit PO Q7D Rx Instructions: WEDNESDAY EVENINGS isosorbide mononitrate 60 mg tablet extended release 24 hr 60 mg PO BID ferrous sulfate [FeroSul] 325 mg (65 mg iron) tablet 325 mg PO Q12H Entresto 49-51 mg tablet 1 tab PO BID furosemide 40 mg tablet 40 mg PO BID Qty: 60 0RF hydralazine 50 mg tablet 100 mg PO TID Qty: 7 0RF Referrals: Jocelyne Kirby PA [Primary Care Provider] - Discharge Diet: Cardiac Patient Instructions: Heart Failure (DC), CHF Stoplight, GI Discharge Instructions, Opioid Safety, Post Heart Attack Stoplight Transfer Attestations Time Spent in Transfer Care: greater than 30 min Status at Transfer: Cognitive status at transfer: cognitively intact; Behavioral status at transfer: cooperative; Quality Metrics Clinical Quality Measures [ Acute Myocardial Infaction { Clinical Trial Participant: No; Contraindication to aspirin: Other (GI bleed); Contraindication to statin: None; Statin prescribed;}] Coding Level of Care Code Acute Code for Chg Fwd Diagnoses Atherosclerosis of [place] coronary artery of [place] heart with angina pectoris I25.119 [place] vs. transplanted heart: [place] heart Acute on chronic systolic heart failure I50.23 Acute blood loss anemia D62 Accelerated hypertension I10 Chronic anticoagulation Z79.01 Type 2 diabetes mellitus with diabetic peripheral angiopathy without gangrene, with long-term current use of insulin E11.51; Z79.4 Diabetes mellitus complication detail: with peripheral angiopathy without gangrene Diabetes mellitus complication status: with circulatory complication Diabetes mellitus custodial insulin use: with custodial use Diabetes mellitus type: type 2 Stage 3a chronic kidney disease N18.31 Chronic kidney disease stage: stage 3 (moderate) Chronic kidney disease stage 3 subtype: stage 3a (GFR 45-59) NSTEMI (non-ST elevated myocardial infarction) I21.4
[2023-12-31 17:27] LABS: Glucose Point of Care 125 mg/dL (70-110)
--- NOTE | 2023-12-31 20:01 | PC.NURSE ---
pt transferrig to [facility], report called franck [place] RN, pt left via ambulance, no belongings in room
== END 2023-12-31 19:56 | disposition short-term general hospital (02) | DRG 368 ==
LOC: ER 11:46 → MEDSURG 11:52 → ICU 15:04 → CSU 12-31 13:16
PROVIDERS: Surgery; Admitting Provider Student in an Organized Health Care Education/Training Program; Emergency Provider Emergency Medicine; PCP Physician Assistant; Visit Provider Student in an Organized Health Care Education/Training Program
PROC: 0DJ08ZZ Inspection of Upper Intestinal Tract, Via Natural or Artificial Opening Endoscopic (ICD-10-PCS; CPT 43235; principal; 2023-12-30 12:00)
DX: K20.91 Esophagitis, unspecified with bleeding (principal); I50.23 Acute on chronic systolic (congestive) heart failure; D62 Acute posthemorrhagic anemia; I13.0 Hypertensive heart and chronic kidney disease with heart failure and stage 1 through stage 4 chronic kidney disease, or unspecified chronic kidney disease; K29.80 Duodenitis without bleeding; I25.2 Old myocardial infarction; Z86.010 Personal history of colon polyps; Z79.02 Long term (current) use of antithrombotics/antiplatelets; Z79.4 Long term (current) use of insulin; Z79.01 Long term (current) use of anticoagulants; E11.51 Type 2 diabetes mellitus with diabetic peripheral angiopathy without gangrene; N18.31 Chronic kidney disease, stage 3a; E11.22 Type 2 diabetes mellitus with diabetic chronic kidney disease; I25.5 Ischemic cardiomyopathy; I25.119 Atherosclerotic heart disease of native coronary artery with unspecified angina pectoris; Z95.1 Presence of aortocoronary bypass graft; Z95.5 Presence of coronary angioplasty implant and graft; Z86.711 Personal history of pulmonary embolism; E78.5 Hyperlipidemia, unspecified; Z87.01 Personal history of pneumonia (recurrent); Z86.16 Personal history of COVID-19; Z85.828 Personal history of other malignant neoplasm of skin; F41.9 Anxiety disorder, unspecified; K44.9 Diaphragmatic hernia without obstruction or gangrene; I34.0 Nonrheumatic mitral (valve) insufficiency; Z87.891 Personal history of nicotine dependence; Z66 Do not resuscitate; D63.1 Anemia in chronic kidney disease; M06.9 Rheumatoid arthritis, unspecified; I27.20 Pulmonary hypertension, unspecified
CPT/HCPCS: 36415; 36416; 36430; 36600; 71045; 80051; 80053; 82330; 82805; 82962; 83880; 84484; 85014; 85018; 85025; 86850; 86900; 86920; 88305; 93005; 93308; 94640; 94660; 96372; 96374; 96375; 96376; 99285; C9113; G0378; J0171; J0360; J1815; J1940; J2250; J2270; J2919; J3490; J7030; J7613; J7626; P9016

== ENCOUNTER 2024-01-06 18:37 | Observation (INO) | payer MEDICARE, MEDICAID, SELFPAY ==
[2024-01-06] VITALS (9 sets, daily range): BP systolic 133–184; BP diastolic 67–89; PULSE 97–117; RESP 18–24; TEMP 37.1–38.3; O2SAT 94–99; BMI 25.0
--- NOTE | 2024-01-06 18:44 | XRR_ITS ---
PROCEDURE INFORMATION: Exam: XR Chest Exam date and time: 01/06/2024 6:52 PM Age: 73 years old Clinical indication: Dyspnea; Prior surgery; Surgery date: 6+ months; Surgery type: Open heart; Additional info: Cough x 3 weeks TECHNIQUE: Imaging protocol: Radiologic exam of the chest. Views: 1 view. COMPARISON: CR XR chest 1V portable [id number] 12/29/2023 10:39 AM FINDINGS: Lungs: Mild right basilar atelectasis. Pleural spaces: Small right pleural effusion. Heart/Mediastinum: Cardiomegaly. Mediastinal clips. Vasculature: Atherosclerotic calcifications. Bones/joints: Median sternotomy wires. Degenerative changes of the shoulders. XR/XR chest 1V portable [id number] IMPRESSION: Small right pleural effusion with subjacent atelectasis.
--- NOTE | 2024-01-06 18:47 | W.ED.SOB ---
HPI - SOB/Dyspnea General: Chief Complaint: Shortness of Breath/Dyspnea Stated Complaint: copd Time Seen by Provider: 01/06/24 18:43 History of Present Illness: HPI Narrative: 73-year-old female presents with shortness of breath, fever not feeling well for about 4 days. Patient reports that she is has a UTI and is on antibiotic. Patient called EMS. When EMS arrived she was in her mid 80s on her oxygen. She is normally on 2 L oxygen patient reports she has had fever, chills and not feeling well for the 4 days. Mild increased cough patient also has a mild induration and cellulitis on her left antecubital space. Reports has been treating this at home. Associated symptoms: Reports fever(s); Deny abdominal pain, chest pain, nausea or vomiting Review of Systems Const: Reports: fever(s), chills and body aches Card: Denies: chest pain Resp: Reports: dyspnea and productive cough GI: Denies: abdominal pain, nausea or vomiting Musc: Denies: neck pain Skin/Breast: Reports: erythema and other (Induration/abscess); Denies: rash Neuro: Denies: headache(s) Psych: Denies: anxiety PFSH ED PFSH: Medical History NSTEMI (non-ST elevated myocardial infarction) Chronic kidney disease Diabetes mellitus Congestive heart failure Community acquired pneumonia Hypertension, uncontrolled Stable angina Anemia Ischemic cardiomyopathy Atherosclerotic heart disease of [place] coronary artery with other forms of angina pectoris CHF exacerbation Acute non-ST elevation myocardial infarction (NSTEMI) Pulmonary embolism Congestive heart failure Acute respiratory failure with hypoxia Acute exacerbation of CHF (congestive heart failure) PAD (peripheral artery disease) Dyslipidemia HTN (hypertension) Eczema CAD (coronary artery disease) Clostridioides difficile infection (07/2022) Insomnia CHF (congestive heart failure) Hypertensive urgency Pneumonia due to COVID-19 virus (~06/2022) Colon polyps History of skin cancer Hyperthyroidism Graves disease History of CVA (cerebrovascular accident) COPD (chronic obstructive pulmonary disease) Anxiety Carotid arterial disease ASHD (arteriosclerotic heart disease) Surgical History Status post insertion of iliac artery stent History of coronary artery stent placement History of cardiac catheterization 06/25/2022 Left main artery: Short, patent. Left circumflex artery: Has patent stents, no significant stenosis. LAD:Occluded in the midsegment. RCA: Known occluded. Not injected. SVG to diagonal artery and SVG to RCA are known occluded. Not injected. LOVETT to LAD: Patent. Coronary anatomy unchanged compared to before. History of renal stent Hx of local excision of skin lesion (09/16/20) Left forearm x2 Status post colonoscopy (09/16/20) S/P hysterectomy with oophorectomy S/P cholecystectomy S/P CABG (coronary artery bypass graft) twice, last in 2004 History of endovascular stent graft for abdominal aortic aneurysm (AAA) S/P cataract surgery S/P skin and subcutaneous tissue surgery Family History Sister Mark's disease Sister No problems noted. Mother No problems noted. Other Anesthesia complication Social History Smoking and tobacco/nicotine status: former use of tobacco/nicotine Alcohol intake: current Alcohol intake frequency: holidays/special occasions only Substance/Drug Use: current Physical Exam Const: COMMON NORMALS: no acute distress and patient oriented x3 GENERAL APPEARANCE: cooperative Resp: COMMON NORMALS: No use of accessory muscles AUSCULTATION: diminished lung sounds Cardio: COMMON NORMALS: regular rhythm RATE: tachycardic RHYTHM: regular rhythm GI: COMMON NORMALS: Soft to palpation and non-tender PALPATION: Yes Soft to palpation Extremity: COMMON NORMALS: full ROM and capillary refill normal Neuro: COMMON NORMALS: patient oriented x3, no focal motor deficits and no sensory deficits noted Skin: NARRATIVE SKIN EXAM: Small area of erythema, and induration in left antecubital space no obvious drainage Course Vital Signs: Vital signs: Vital Signs Temperature 101 F H 01/06/24 20:55 Pulse Rate 97 01/06/24 22:00 Respiratory Rate 20 H 01/06/24 22:00 Blood Pressure 134/67 01/06/24 20:55 Pulse Oximetry 94 01/06/24 22:00 Oxygen Delivery Me thod Nasal Cannula 01/06/24 22:00 Oxygen Flow Rate 2 01/06/24 22:00 MDM - SOB/Dyspnea Medical Decision Making Patient labs are ordered reviewed and interpreted by me. She has mild increase in her white count at 13.78. Otherwise her labs appear to be near her baseline labs. Patient is febrile with unknown source. Her urine appears to be contaminated. She is negative for COVID. No pneumonia noted. Patient is feeling significant better following treatment. She was significantly short of breath upon arrival and is improved. Patient will be placed in observation with admitting Dr. Tony due to her increased risk and recent procedures. Blood cultures are pending and we will hold antibiotics at this time. Lab Data 01/06/24 19:01 01/06/24 19:01 Labs/Radiology: Radiology Impressions Chest X-Ray 01/06/24 18:44 IMPRESSION: Small right pleural effusion with subjacent atelectasis. Laboratory Results WBC 13.78 10^3/uL (3.29-11.43) H 01/06/24 19: RBC 4.46 10^6/uL (3.85-5.65) 01/06/24 19: Hgb 11.10 g/dL (11.27-16.99) L 01/06/24 19: Hct 37.4 % (36-47) 01/06/24 19: MCV 83.9 fl (85-98) L 01/06/24 19:01 MCH 24.9 pg (27-33) L 01/06/24 19: MCHC 29.7 g/dL (30-55) L 01/06/24 19: RDW 18.7 % (12.1-15.1) H 01/06/24 19:01 Plt Count 294 10^3/cmm (157-399) 01/06/24 19: MPV 10.7 fL (7.4-10.4) H 01/06/24 19:01 Neut % (Auto) 88.7 % 01/06/24 19: Lymph % (Auto) 3.6 % 01/06/24 19: [place] % (Auto) 6.9 % 01/06/24 19: Eos % (Auto) 0.0 % 01/06/24 19: Baso % (Auto) 0.1 % 01/06/24 19: Neut # (Auto) 12.21 10^3/uL (1.8-7.7) H 01/06/24 19: Lymph # (Auto) 0.5 10^3/uL (0.8-4.8) L 01/06/24 19:01 [place] # (Auto) 1.0 10^3/uL (0.2-0.9) H 01/06/24 19:01 Eos # (Auto) 0.0 10^3/uL (0.0-0.8) 01/06/24 19:01 Baso # (Auto) 0.0 10^3/uL (0.0-0.1) 01/06/24 19:01 Nucleated RBC % (auto) 0 % 01/06/24 19:01 Nucleated RBCs # 0.0 /100WBC 01/06/24 19:01 Specimen Type Arterial 01/06/24 19:03 Sample Site Brachial, left 01/06/24 19:03 ABG pH 7.44 (7.35-7.45) 01/06/24 19:03 ABG pCO2 29.6 mmHg (35-45) L 01/06/24 19:03 ABG pO2 75.9 mmHg (80.0-100.0) L 01/06/24 19:03 ABG PO2/FiO2 Ratio 271 01/06/24 19:03 ABG HCO3 20.3 mmol/L (22-26) L 01/06/24 19:03 ABG Base Excess -2.9 mmol/L (-2.0-2.0) L 01/06/24 19:03 Rene Test N/a 01/06/24 19:03 Hematocrit 35.1 % (37-47) L 01/06/24 19:03 O2 Delivery Device Nc 01/06/24 19:03 O2 Liters/Min 2.0 % 01/06/24 19:03 FiO2 28.0 % 01/06/24 19:03 Causticiser ID Ed 01/06/24 19:03 Sodium 136 mmol/L (136-145) 01/06/24 19:01 Potassium 4.7 mmol/L (3.5-5.1) 01/06/24 19:01 Chloride 102 mmol/L (98-107) 01/06/24 19:01 Carbon Dioxide 21 mmol/L (22-29) L 01/06/24 19:01 Anion Gap 17.7 (5-19) 01/06/24 19:01 BUN 45 mg/dL (8-23) H 01/06/24 19:01 Creatinine 1.9 mg/dL (0.5-0.9) H 01/06/24 19: GFR Calculation Not Reportable 01/06/24 19: Glucose 357 mg/dL (65-115) H 01/06/24 19:01 Calculated Osmolality 308 mOsm/kg (285-295) H 01/06/24 19:01 Lactic Acid 1.6 mmol/L (0.5-2.2) 01/06/24 19:01 Calcium 9.2 mg/dL (8.5-10.5) 01/06/24 19: Magnesium 1.7 mg/dL (1.7-2.3) 01/06/24 19: Total Bilirubin 0.5 mg/dL (0.15-1.2) 01/06/24 19:01 AST 15 U/L (0-32) 01/06/24 19: ALT 13 U/L (0-33) 01/06/24 19: Alkaline Phosphatase 138 U/L (35-105) H 01/06/24 19:01 Total Protein 7.1 g/dL (6.6-8.7) 01/06/24 19: Albumin 3.4 g/dL (3.5-5.2) L 01/06/24 19: Globulin 3.7 g/dL (1.3-4.6) 01/06/24 19:01 Procalcitonin 0.24 ng/mL (0-0.5) 01/06/24 19:01 Urine Color Yellow (Yellow) 01/06/24 21:37 Urine Appearance Cloudy (CLEAR) A 01/06/24 21:37 Urine pH 5.0 (5-7) 01/06/24 21:37 Ur Specific [place] 1.014 (1.005-1.030) 01/06/24 21:37 Urine Protein 3+ (Negative) A 01/06/24 21:37 Urine Glucose (UA) 2+ (Normal) H 01/06/24 21:37 Urine Ketones Negative (Negative) 01/06/24 21:37 Urine Blood Negative (Negative) 01/06/24 21:37 Urine Nitrate Negative (Negative) 01/06/24 21:37 Urine Bilirubin Negative (Negative) 01/06/24 21:37 Urine Urobilinogen 1.0 mg/dL (Negative) 01/06/24 21:37 Ur Leukocyte Esterase Negative (Negative) 01/06/24 21:37 Urine RBC 0-4 /hpf (0-2) H 01/06/24 21:37 Ur Squamous Epith Cells 15-25 /hpf (0-5) H 01/06/24 21:37 Amorphous Sediment Not Reportable 01/06/24 21:37 Urine Bacteria 3+ /hpf (NONE) H 01/06/24 21:37 Urine Mucus 2+ /hpf 01/06/24 21:37 Urine Yeast 2+ /hpf H 01/06/24 21:37 Coronavirus 229E (PCR) Not detected (NOT DETECT) 01/06/24 19:50 SARS-CoV-2 (PCR) Not detected (NOT DETECT) 01/06/24 19:50 All radiology interpretation(s) finalized by discharge EKG Data EKG 1: I personally reviewed and interpreted this EKG as follows: EKG Interpretation Date: 01/06/24 EKG interpretation time: 18:45 Interpretation: Heart rate 112, sinus tachycardia, DC 155, left ventricular Heidrich perfect reviewed, no acute ST changes or elevation noted Discharge Plan Discharge Patient Disposition: Placed in Observation Clinical Impression: Fever of unknown origin (FUO), SOB (shortness of breath), COPD (chronic obstructive pulmonary disease) Coding Level of Care Code ED Medical Support Specialist for Kiran Holland
[2024-01-06] MEDS: ipratropium-albuterol 3 mL Neb INHALATION (19:00)
[2024-01-06 19:11] LABS: Basophils % 0.1 %; Hematocrit 37.4 % (36-47); Lymphocytes # 0.5 10^3/uL (0.8-4.8); Lymphocytes % 3.6 %; Mean Corpuscular HGB Conc 29.7 g/dL (30-55); Mean Corpuscular Hemoglobin 24.9 pg (27-33); Mean Corpuscular Volume 83.9 fl (85-98); Mean Platelet Volume 10.7 fL (7.4-10.4); Monocytes % 6.9 %; Neutrophils # 12.21 10^3/uL (1.8-7.7); Neutrophils % 88.7 %; Nucleated Red Blood Cells % 0 %; Platelet Count 294 10^3/cmm (157-399); Red Blood Count 4.46 10^6/uL (3.85-5.65); Red Cell Distribution Width 18.7 % (12.1-15.1); White Blood Count 13.78 10^3/uL (3.29-11.43)
[2024-01-06 19:12] LABS: ABG PCO2 29.6 mmHg (35-45); ABG PH Result 7.44 (7.35-7.45); Arterial Blood Gas Hematocrit 35.1 % (37-47); Base Excess ABG -2.9 mmol/L (-2.0-2.0); Blood Gas Sample Type Arterial; HCO3 ABG 20.3 mmol/L (22-26); PO2 ABG 75.9 mmHg (80.0-100.0)
[2024-01-06 19:14] LABS: Blood Gas Operator Identificat ED; Blood Gas Sample Site Brachial, left; Oxygen Device NC; PO2 FiO2 Ratio Arterial Blood 271
[2024-01-06 19:32] LABS: Alanine Aminotransferase 13 U/L (0-33); Albumin Level 3.4 g/dL (3.5-5.2); Alkaline Phosphatase 138 U/L (35-105); Anion Gap 17.7 (5-19); Aspartate Amino Transferase 15 U/L (0-32); Blood Urea Nitrogen 45 mg/dL (8-23); Calcium 9.2 mg/dL (8.5-10.5); Carbon Dioxide 21 mmol/L (22-29); Chloride 102 mmol/L (98-107); Globulin 3.7 g/dL (1.3-4.6); Glucose 357 mg/dL (65-115); Magnesium 1.7 mg/dL (1.7-2.3); Osmolality Calculated 308 mOsm/kg (285-295); Potassium 4.7 mmol/L (3.5-5.1); Sodium 136 mmol/L (136-145); Total Bilirubin 0.5 mg/dL (0.15-1.2); Total Protein 7.1 g/dL (6.6-8.7)
[2024-01-06 19:33] LABS: Creatinine Clr Calc Pharmacy 21.0332; Lactic Sepsis W/Reflex 1.6 mmol/L (0.5-2.2)
[2024-01-06] MEDS: sodium chloride 0.9% 500 ML 999 ML IV (19:36)
[2024-01-06] MEDS: methylPREDNISolone sod succ 125 mg/2 mL INJ 80 MG IV (19:36)
[2024-01-06] MEDS: acetaminophen 325 mg Tablet 650 MG PO (19:37)
[2024-01-06] MEDS: fentaNYL 50 mcg/mL INJ 2mL 25 MCG IVP (21:55)
[2024-01-06 22:02] LABS: Bilirubin Urine Negative (Negative); Blood Urine Negative (Negative); Glucose Urine UA 2+ (Normal); Ketones Urine Negative (Negative); Leukocyte Esterase Urine Negative (Negative); Nitrate Urine Negative (Negative); Protein Urine 3+ (Negative); Specific Gravity, Urine 1.014 (1.005-1.030); Urine Appearance Cloudy (CLEAR); Urine Color Yellow (Yellow)
[2024-01-06 22:06] LABS: Adenovirus Not Detected (NOT DETECT); Chlamydia Pneumoniae Not Detected (NOT DETECT); Coronavirus 229E,HKU1,NL63,OC4 Not Detected (NOT DETECT); Human Metapneumovirus Not Detected (NOT DETECT); Human Rhinovirus/Enterovirus Not Detected (NOT DETECT); Influenza A Not Detected (NOT DETECT); Influenza A H1 Not Detected (NOT DETECT); Influenza A H1-2009 Not Detected (NOT DETECT); Influenza A H3 Not Detected (NOT DETECT); Influenza B Not Detected (NOT DETECT); Mycoplasma Pneumoniae Not Detected (NOT DETECT); Parainfluenza Virus Type 1 Not Detected (NOT DETECT); Parainfluenza Virus Type 2 Not Detected (NOT DETECT); Parainfluenza Virus Type 3 Not Detected (NOT DETECT); Parainfluenza Virus Type 4 Not Detected (NOT DETECT); Respiratory Syncytial Virus A Not Detected (NOT DETECT); Respiratory Syncytial Virus B Not Detected (NOT DETECT); SARS-COV-2 Not Detected (NOT DETECT)
[2024-01-06 22:26] LABS: Hyaline Casts Urine 38.45 /lpf; WBC Urine 0-5 /hpf (0-5)
[2024-01-06 22:36] LABS: Bacteria Urine 3+ /hpf; Mucus Urine 2+ /hpf; RBC Urine 0-4 /hpf (0-2); Squamous Epithelial Cell Urine 15-25 /hpf (0-5)
[2024-01-06 22:37] LABS: Add Urine Culture? No
--- NOTE | 2024-01-06 23:00 | P.HP_ITS ---
Providers/Chief Complaint 2 Primary Care Provider: Jocelyne Kirby Chief Complaint: copd History of Present Illness Romi Yuan is a 73 year old female with a past medical history significant for heart failure with reduced ejection fraction, severe mitral regurgitation, COPD with chronic hypoxic respiratory failure on 2L baseline oxygen, coronary artery disease, hypertension, sleep apnea, type 2 diabetes mellitus and multiple other comorbidities who presents to the emergency department with fevers and chills x4 days. Endorses associated generalized weakness, fatigue, and shortness of breath. Reports exertion worsens symptoms. Rest improves symptoms. She denies changes in bowel habits, new cough, chest pain or other new complaints. She states that she lives home alone and due to worsening symptoms prompted her to be evaluated today. Patient also notes some redness on her left antecubital space. She denies any other redness or wounds elsewhere on her body. She reports recent urinary tract infection for which she was on oral ciprofloxacin. She was recently admitted here and transferred on December 30 to [facility] for further evaluation of her mitral valve. She states that she has been home for about 4 days. She reports that her mitral valve is to be operated on as outpatient later this month. Review of Systems 2 Narrative: A complete review of systems was obtained and is negative except as stated in HPI. Medications/Allergies Home Medications Medication Instructions Recorded Confirmed Last Taken Type umeclidinium 62.5 mcg-vilanterol 1 inh inhalation DAILY 07/20/19 12/30/23 12/25/23 History 25 mcg/actuation powdr for inhalation (Anoro Ellipta) venlafaxine 150 mg See Rx Instructions .Route .COMPLEX 07/20/19 12/30/23 12/25/23 History capsule,extended release 24 hr (Effexor XR) methimazole 5 mg tablet 5 mg PO DAILY #30 tabs 03/11/20 12/30/23 12/25/23 Rx blood sugar diagnostic (Accu-Chek #120 ea 06/23/21 12/30/23 Unknown Rx Ana M Plus test strips) clopidogrel 75 mg tablet (Plavix) 75 mg PO DAILY #60 tabs 06/15/22 12/30/23 12/25/23 Rx acitretin 10 mg capsule 10 mg PO QAM 06/19/22 12/30/23 12/25/23 History atorvastatin 40 mg tablet 40 mg PO BEDTIME 06/19/22 12/30/23 12/25/23 History venlafaxine 75 mg capsule,extended See Rx Instructions .Route .COMPLEX 06/19/22 12/30/23 12/25/23 History release 24 hr albuterol sulfate 90 mcg/actuation 2 puff inhalation QID PRN 07/09/22 12/30/23 09/11/23 History aerosol inhaler (Ventolin HFA) Shortness Of Breath insulin lispro 100 unit/mL 10 unit SUBCUT TID 07/09/22 12/30/23 12/25/23 History subcutaneous pen (Humalog KwikPen (U-100) Insulin) nitroglycerin 0.4 mg sublingual 0.4 mg sublingual Q5M PRN Chest 07/09/22 12/30/23 02/26/23 History tablet (Nitrostat) Pain tizanidine 4 mg tablet 4 mg PO BEDTIME 07/09/22 12/30/23 12/25/23 History empagliflozin 10 mg tablet 10 mg PO DAILY 09/07/22 12/30/23 12/25/23 History (Jardiance) apixaban 2.5 mg tablet 2.5 mg PO BID #180 tabs 05/19/23 12/30/23 12/25/23 Rx calcitriol 0.25 mcg capsule See Rx Instructions .Route .COMPLEX 06/17/23 12/30/23 12/24/23 History ergocalciferol (vitamin D2) 1,250 50,000 unit PO Q7D 09/03/23 12/30/23 12/22/23 History mcg (50,000 unit) capsule (Vitamin D2) insulin glargine 100 unit/mL (3 20 unit SUBCUT DAILY 09/03/23 12/30/23 09/10/23 History mL) subcutaneous pen (Lantus Solostar U-100 Insulin) metoprolol succinate 50 mg 50 mg PO DAILY 11/12/23 12/30/23 12/25/23 History tablet,extended release 24 hr potassium chloride 10 mEq 10 meq PO DAILY #20 tabs 11/12/23 12/30/23 12/25/23 Rx tablet,extended release acetaminophen 500 mg tablet 500 mg PO BEDTIME 11/29/23 12/30/23 12/25/23 History ipratropium 0.5 mg-albuterol 3 mg 3 ml inhalation QID PRN Shortness 11/29/23 12/30/23 Unknown History (2.5 mg base)/3 mL nebulization Of Breath soln ferrous sulfate 325 mg (65 mg 325 mg PO Q12H 12/27/23 12/30/23 12/25/23 History iron) tablet (FeroSul) isosorbide mononitrate 60 mg 60 mg PO BID 12/27/23 12/30/23 12/25/23 History tablet,extended release 24 hr sacubitril 49 mg-valsartan 51 mg 1 tab PO BID 12/27/23 12/30/23 12/25/23 History tablet (Entresto) furosemide 40 mg tablet 40 mg PO BID #60 tabs 12/28/23 12/30/23 12/25/23 Rx hydralazine 50 mg tablet 100 mg (2 x 50 mg) PO TID Systolic 12/28/23 12/30/23 Unknown Rx blood pressure more than 180 mmHg #7 tabs Allergies Allergy/AdvReac Type Severity Reaction Status Date / Time cefuroxime [From Ceftin] Allergy ALGY-Rash Verified 12/26/23 10:54 cephalexin [From Keflex] Allergy ALGY-Rash Verified 12/26/23 10:54 hydroxyzine [From Vistaril] Allergy ALGY-Anaphy Verified 12/26/23 10:54 laxis Penicillins Allergy ALGY-Redness Verified 12/26/23 10:54 of Skin prochlorperazine Allergy ALGY-Anaphy Verified 12/26/23 10:54 [From Compazine] laxis promethazine [From Phenergan] Allergy ALGY-Anaphy Verified 12/26/23 10:54 laxis venom-honey bee Allergy ALGY-Anaphy Verified 12/26/23 10:54 laxis simvastatin [From Zocor] AdvReac ADR-Heartbu Verified 12/26/23 10:54 rn PFSH Acute 2 PFSH: Medical History CAD (coronary artery disease) Carotid arterial disease NSTEMI (non-ST elevated myocardial infarction) Chronic kidney disease Diabetes mellitus Congestive heart failure Community acquired pneumonia Hypertension, uncontrolled Stable angina Anemia Ischemic cardiomyopathy Atherosclerotic heart disease of [place] coronary artery with other forms of angina pectoris CHF exacerbation Acute non-ST elevation myocardial infarction (NSTEMI) Pulmonary embolism Congestive heart failure Acute respiratory failure with hypoxia Acute exacerbation of CHF (congestive heart failure) PAD (peripheral artery disease) Dyslipidemia HTN (hypertension) Eczema Clostridioides difficile infection (07/2022) Insomnia CHF (congestive heart failure) Hypertensive urgency Pneumonia due to COVID-19 virus (~06/2022) Colon polyps History of skin cancer Hyperthyroidism Graves disease History of CVA (cerebrovascular accident) COPD (chronic obstructive pulmonary disease) Anxiety ASHD (arteriosclerotic heart disease) Surgical History Status post insertion of iliac artery stent History of coronary artery stent placement History of cardiac catheterization 06/25/2022 Left main artery: Short, patent. Left circumflex artery: Has patent stents, no significant stenosis. LAD:Occluded in the midsegment. RCA: Known occluded. Not injected. SVG to diagonal artery and SVG to RCA are known occluded. Not injected. LOVETT to LAD: Patent. Coronary anatomy unchanged compared to before. History of renal stent Hx of local excision of skin lesion (09/16/20) Left forearm x2 Status post colonoscopy (09/16/20) S/P hysterectomy with oophorectomy S/P cholecystectomy S/P CABG (coronary artery bypass graft) twice, last in 2004 History of endovascular stent graft for abdominal aortic aneurysm (AAA) S/P cataract surgery S/P skin and subcutaneous tissue surgery Family History Sister Mark's disease Sister No problems noted. Mother No problems noted. Other Anesthesia complication Social History Smoking and tobacco/nicotine status: former use of tobacco/nicotine Alcohol intake: current Alcohol intake frequency: holidays/special occasions only Substance/Drug Use: current Vitals/I&O/Wt Last Vital Signs Temp 101 F H 01/06/24 20:55 Pulse 97 01/06/24 22:00 Resp 20 H 01/06/24 22:00 BP 134/67 01/06/24 20:55 Pulse Ox 94 01/06/24 22:00 O2 Del Method Nasal Cannula 01/06/24 22:00 O2 Flow Rate 2 01/06/24 22:00 Weight last 48 hrs Weight 58.06 kg Physical Exam 2 Narrative: General: Patient is awake. Alert. Conversational. Head: Normocephalic. Atraumatic. EOM intact. Dry mucous membranes. Neck: No JVD. Cardiovascular: RRR. No gallops. No murmurs. Trace pedal edema bilaterally. Lungs: Breath sounds slightly diminished bilateral bases, no use of accessory muscles, no crackles or wheezes. Skin: No jaundice. There is an area of patchy erythema in the left antecubital space. Abdomen: Normal bowel sounds, abdomen soft and nontender. Genito Urinary: Genital exam not performed since complaints not related. Rectal: Rectal exam not performed since no symptoms indicated blood loss. Extremities: No cyanosis or clubbing. Musculoskeletal: No swollen or erythematous joints. Neurological: Moves all 4 extremities. No myoclonus. Data 01/06/24 19:01 01/06/24 19:01 A&P Assessment and plan (1) Sepsis: SIRS: Febrile, tachycardic Source: Differential includes cellulitis of left antecubital space versus less likely UTI given UA versus other source Blood cultures x 2 Given IV fluids in ED, hold off on full 30 mL/kg body weight IV fluids due to heart failure with reduced ejection fraction Start broad-spectrum antibiotics w/ cefepime and vancomycin Strict I's and O's Telemetry (2) Congestive heart failure: Chronic heart failure with reduced ejection fraction of 15-20% Continue home CHF meds, however hold Jardiance given NF status and UTI Strict I&Os Daily weights (3) Chronic kidney disease: Suspect stage IV CKD Renally dose medications Continue home calcitriol Qualifiers: Chronic kidney disease stage: stage 3 (moderate) Chronic kidney disease stage 3 subtype: stage 3a (GFR 45-59) Qualified Code(s): N18.31 - Chronic kidney disease, stage 3a (4) Mitral regurgitation: Patient recently evaluated at [facility] Patient reports outpatient mitral valve clip has been scheduled (5) GI bleed: Patient recently underwent endoscopy by Dr. Muniz revealing esophagitis Monitor blood counts Continue iron supplement (6) Diabetes mellitus: Continue Lantus at reduced home dose Sliding-scale insulin correction Qualifiers: Diabetes mellitus complication detail: with peripheral angiopathy without gangrene Diabetes mellitus complication status: with circulatory complication Diabetes mellitus supervisor telephone answering service insulin use: with supervisor telephone answering service use D iabetes mellitus type: type 2 Qualified Code(s): E11.51 - Type 2 diabetes mellitus with diabetic peripheral angiopathy without gangrene; Z79.4 - warp changer (current) use of insulin (7) COPD (chronic obstructive pulmonary disease): Received systemic steroids in ED Monitor for exacerbation Pulmicort DuoNebs (8) Carotid arterial disease: Hx of 2 prior CABG Continue Plavix Continue BB Continue statin Continue Imdur Plan DVT ppx: Apixaban Attestations 2 Medical Necessity Statement*: Patient presents with sepsis with expected hospitalization not to cross two midnights for IV abx and supportive care. Coding Level of Care Code Acute Code for [facility] Fwd Diagnoses Sepsis A41.9 Congestive heart failure I50.9 Stage 3a chronic kidney disease N18.31 Chronic kidney disease stage: stage 3 (moderate) Chronic kidney disease stage 3 subtype: stage 3a (GFR 45-59) Mitral regurgitation I34.0 GI bleed K92.2 Type 2 diabetes mellitus with diabetic peripheral angiopathy without gangrene, with long-term current use of insulin E11.51; Z79.4 Diabetes mellitus complication detail: with peripheral angiopathy without gangrene Diabetes mellitus complication status: with circulatory complication Diabetes mellitus supervisor telephone answering service insulin use: with supervisor telephone answering service use Diabetes mellitus type: type 2 COPD (chronic obstructive pulmonary disease) J44.9 Carotid arterial disease I77.9
[2024-01-06 23:35] LABS: Procalcitonin 0.24 ng/mL (0-0.5)
[2024-01-07] VITALS (11 sets, daily range): BP systolic 114–165; BP diastolic 63–95; PULSE 42–99; RESP 16–20; TEMP 36.5–37.3; O2SAT 93–98
[2024-01-07] MEDS: oxyCODONE-APAP 5-325 mg Tablet 1 TAB PO ×2 (00:28→06:15)
[2024-01-07] MEDS: ferrous sulfate EC 325 mg Tablet PO (00:28)
[2024-01-07] MEDS: venlafaxine ER (24HR) 150 mg Capsule PO (01:43)
[2024-01-07] MEDS: venlafaxine ER (24HR) 75 mg Capsule PO (01:43)
[2024-01-07] MEDS: cefepime 1,000 mg SDV 1000 MG IV (02:44)
[2024-01-07 05:15] LABS: Basophils % 0.1 %; Hematocrit 34.4 % (36-47); Lymphocytes # 0.5 10^3/uL (0.8-4.8); Mean Corpuscular HGB Conc 29.7 g/dL (30-55); Mean Corpuscular Hemoglobin 25.2 pg (27-33); Mean Corpuscular Volume 84.9 fl (85-98); Mean Platelet Volume 11.2 fL (7.4-10.4); Monocytes # 0.6 10^3/uL (0.2-0.9); Neutrophils # 14.08 10^3/uL (1.8-7.7); Neutrophils % 92.4 %; Nucleated Red Blood Cells % 0 %; Platelet Count 273 10^3/cmm (157-399); Red Blood Count 4.05 10^6/uL (3.85-5.65); Red Cell Distribution Width 18.9 % (12.1-15.1); White Blood Count 15.24 10^3/uL (3.29-11.43)
[2024-01-07 05:34] LABS: Anion Gap 18.1 (5-19); Blood Urea Nitrogen 48 mg/dL (8-23); Calcium 8.9 mg/dL (8.5-10.5); Carbon Dioxide 18 mmol/L (22-29); Chloride 107 mmol/L (98-107); Creatinine Clr Calc Pharmacy 19.6383; Glucose 424 mg/dL (65-115); Magnesium 1.8 mg/dL (1.7-2.3); Osmolality Calculated 317 mOsm/kg (285-295); Phosphorus 3.5 mg/dL (2.5-4.5); Potassium 5.1 mmol/L (3.5-5.1); Sodium 138 mmol/L (136-145)
[2024-01-07 06:07] LABS: Glucose Point of Care 467 mg/dL (70-110)
[2024-01-07] MEDS: insulin lispro 100 unit/1 mL 12 UNIT SUBCUT (06:16)
[2024-01-07] MEDS: FUROsemide 40 mg Tablet PO (06:16)
[2024-01-07 07:36] LABS: Glucose Point of Care 420 mg/dL (70-110)
[2024-01-07 07:36] LABS: Glucose Point of Care 417 mg/dL (70-110)
[2024-01-07] MEDS: calcitriol 0.25 mcg Capsule PO (08:09)
[2024-01-07] MEDS: isosorbide mononitrate ER 60 mg Tablet PO (08:09)
[2024-01-07] MEDS: metoprolol succinate ER (24 HR) 50 mg Tablet PO (08:09)
[2024-01-07] MEDS: hyDRALAzine 50 mg Tablet 100 MG PO ×2 (08:09→14:43)
[2024-01-07] MEDS: clopidogrel 75 mg Tablet PO (08:09)
[2024-01-07] MEDS: sacubitril/valsartan 24-26 mg Tablet 2 EACH PO (08:09)
[2024-01-07] MEDS: methIMAzole 5 MG Tablet PO (08:11)
[2024-01-07] MEDS: insulin lispro 100 unit/1 mL SUBCUT ×2 (08:12→12:19)
[2024-01-07] MEDS: budesonide 0.5 mg/2 mL Neb INHALATION (09:03)
[2024-01-07] MEDS: ipratropium-albuterol 3 mL Neb INHALATION (09:03)
[2024-01-07 09:31] LABS: Glucose Point of Care 356 mg/dL (70-110)
[2024-01-07] MEDS: insulin glargine 100 units/1 mL 16 UNIT SUBCUT (10:03)
--- NOTE | 2024-01-07 10:36 | P.DS_ITS ---
Discharge Providers Date of Admission: 01/07/24 00:25 Date of Discharge: January 07, 2024 Attending Provider at Admission: Lino Tony MD Attending Provider at Discharge: Smiley Hanson MD Primary Care Provider: Jocelyne Kirby Diagnoses at Discharge Discharge Diagnosis (1) Sepsis: Status: Acute (2) Congestive heart failure: Status: Acute (3) Chronic kidney disease: Status: Chronic Qualifiers: Chronic kidney disease stage: stage 3 (moderate) Chronic kidney disease stage 3 subtype: stage 3a (GFR 45-59) Qualified Code(s): N18.31 - Chronic kidney disease, stage 3a (4) Mitral regurgitation: Status: Acute (5) GI bleed: Status: Acute (6) Diabetes mellitus: Status: Acute Qualifiers: Diabetes mellitus complication detail: with peripheral angiopathy without gangrene Diabetes mellitus complication status: with circulatory complication Diabetes mellitus [facility] insulin use: with [facility] use Diabetes mellitus type: type 2 Qualified Code(s): E11.51 - Type 2 diabetes mellitus with diabetic peripheral angiopathy without gangrene; Z79.4 - longterm (current) use of insulin (7) COPD (chronic obstructive pulmonary disease): Status: Acute (8) Carotid arterial disease: Status: Acute Reason for Visit Reason for Visit: copd Hospital Course Hospital Course 73 of female who has an appointment at [facility] for mitral valve clip next Wednesday presented to the hospital with chief complaint of generalized weakness and fatigue, sepsis criteria met with fever tachycardia, she was put on antibiotics, source of infection was related to IV line infiltration of the left antecubital fossa versus UTI. At the time of evaluation patient is afebrile wanting to go home. She does have a white count of 15,000, patient lives alone, stating that she will be better off at home, she does not seem to be in acute congestive heart failure, her creatinine seems around baseline. She does have chronic kidney disease. Recent EGD showed esophagitis hemoglobin stable. Patient has COPD uses 2 L of oxygen via [place] on intermittent basis. Prior history of CABG. Patient has multiple allergies listed but seems like they are not real allergies, patient seems to be very anxious about her medications refused Eliquis and stated that she is will only take Plavix. She did receive cefepime in the hospital she did not show any sign of allergy or anaphylaxis At the time of discharge I will give her doxycycline and cefpodoxime. I have asked her not to take ciprofloxacin Physical Exam Narrative: Awake and alert Euvolemic GCS 15 Currently on 2 L Hemodynamically stable Discharge Data Studies Completed and Pending Completed Studies During Hospitalization Category Date Time Status XR chest 1V portable [id number] Stat Exams 01/06/24 18:44 Completed Pending at discharge Category Date Time Status Blood Culture Stat Lab 01/06/24 22:55 Results MRSA [Methicillin Resistant S.aureu] Routine Lab 01/07/24 02:50 Received Radiology Impressions Chest X-Ray 01/06/24 18:44 IMPRESSION: Small right pleural effusion with subjacent atelectasis. Laboratory Results WBC 15.24 10^3/uL (3.29-11.43) H 01/07/24 04:40 RBC 4.05 10^6/uL (3.85-5.65) 01/07/24 04:40 Hgb 10.20 g/dL (11.27-16.99) L 01/07/24 04:40 Hct 34.4 % (36-47) L 01/07/24 04:40 MCV 84.9 fl (85-98) L 01/07/24 04:40 MCH 25.2 pg (27-33) L 01/07/24 04:40 MCHC 29.7 g/dL (30-55) L 01/07/24 04:40 RDW 18.9 % (12.1-15.1) H 01/07/24 04:40 Plt Count 273 10^3/cmm (157-399) 01/07/24 04:40 MPV 11.2 fL (7.4-10.4) H 01/07/24 04:40 Neut % (Auto) 92.4 % 01/07/24 04:40 Lymph % (Auto) 3.0 % 01/07/24 04:40 [place] % (Auto) 4.0 % 01/07/24 04:40 Eos % (Auto) 0.0 % 01/07/24 04:40 Baso % (Auto) 0.1 % 01/07/24 04:40 Neut # (Auto) 14.08 10^3/uL (1.8-7.7) H 01/07/24 04:40 Lymph # (Auto) 0.5 10^3/uL (0.8-4.8) L 01/07/24 04:40 [place] # (Auto) 0.6 10^3/uL (0.2-0.9) 01/07/24 04:40 Eos # (Auto) 0.0 10^3/uL (0.0-0.8) 01/07/24 04:40 Baso # (Auto) 0.0 10^3/uL (0.0-0.1) 01/07/24 04:40 Nucleated RBC % (auto) 0 % 01/07/24 04:40 Nucleated RBCs # 0.0 /100WBC 01/07/24 04:40 Specimen Type Arterial 01/06/24 19:03 Sample Site Brachial, left 01/06/24 19:03 ABG pH 7.44 (7.35-7.45) 01/06/24 19:03 ABG pCO2 29.6 mmHg (35-45) L 01/06/24 19:03 ABG pO2 75.9 mmHg (80.0-100.0) L 01/06/24 19:03 ABG PO2/FiO2 Ratio 271 01/06/24 19:03 ABG HCO3 20.3 mmol/L (22-26) L 01/06/24 19:03 ABG Base Excess -2.9 mmol/L (-2.0-2.0) L 01/06/24 19:03 Rene Test N/a 01/06/24 19:03 Hematocrit 35.1 % (37-47) L 01/06/24 19:03 O2 Delivery Device Nc 01/06/24 19:03 O2 Liters/Min 2.0 % 01/06/24 19:03 FiO2 28.0 % 01/06/24 19:03 Hammerer ID Ed 01/06/24 19:03 Sodium 138 mmol/L (136-145) 01/07/24 04:40 Potassium 5.1 mmol/L (3.5-5.1) 01/07/24 04:40 Chloride 107 mmol/L (98-107) 01/07/24 04:40 Carbon Dioxide 18 mmol/L (22-29) L 01/07/24 04:40 Anion Gap 18.1 (5-19) 01/07/24 04:40 BUN 48 mg/dL (8-23) H 01/07/24 04:40 Creatinine 2.1 mg/dL (0.5-0.9) H 01/07/24 04:40 GFR Calculation Not Reportable 01/07/24 04:40 Glucose 424 mg/dL (65-115) H 01/07/24 04:40 POC Glucose 356 mg/dL (70-110) H 01/07/24 09:27 Calculated Osmolality 317 mOsm/kg (285-295) H 01/07/24 04:40 Lactic Acid 1.6 mmol/L (0.5-2.2) 01/06/24 19:01 Calcium 8.9 mg/dL (8.5-10.5) 01/07/24 04:40 Phosphorus 3.5 mg/dL (2.5-4.5) 01/07/24 04:40 Magnesium 1.8 mg/dL (1.7-2.3) 01/07/24 04:40 Total Bilirubin 0.5 mg/dL (0.15-1.2) 01/06/24 19:01 AST 15 U/L (0-32) 01/06/24 19:01 ALT 13 U/L (0-33) 01/06/24 19:01 Alkaline Phosphatase 138 U/L (35-105) H 01/06/24 19:01 Total Protein 7.1 g/dL (6.6-8.7) 01/06/24 19:01 Albumin 3.4 g/dL (3.5-5.2) L 01/06/24 19:01 Globulin 3.7 g/dL (1.3-4.6) 01/06/24 19:01 Procalcitonin 0.24 ng/mL (0-0.5) 01/06/24 19:01 Urine Color Yellow (Yellow) 01/06/24 21:37 Urine Appearance Cloudy (CLEAR) A 01/06/24 21:37 Urine pH 5.0 (5-7) 01/06/24 21:37 Ur Specific [place] 1.014 (1.005-1.030) 01/06/24 21:37 Urine Protein 3+ (Negative) A 01/06/24 21:37 Urine Glucose (UA) 2+ (Normal) H 01/06/24 21:37 Urine Ketones Negative (Negative) 01/06/24 21:37 Urine Blood Negative (Negative) 01/06/24 21:37 Urine Nitrate Negative (Negative) 01/06/24 21:37 Urine Bilirubin Negative (Negative) 01/06/24 21:37 Urine Urobilinogen 1.0 mg/dL (Negative) 01/06/24 21:37 Ur Leukocyte Esterase Negative (Negative) 01/06/24 21:37 Urine RBC 0-4 /hpf (0-2) H 01/06/24 21:37 Urine WBC 0-5 /hpf (0-5) 01/06/24 21:37 Ur Squamous Epith Cells 15-25 /hpf (0-5) H 01/06/24 21:37 Amorphous Sediment Not Reportable 01/06/24 21:37 Urine Bacteria 3+ /hpf (NONE) H 01/06/24 21:37 Hyaline Casts 38.45 /lpf 01/06/24 21:37 Urine Mucus 2+ /hpf 01/06/24 21:37 Urine Yeast 2+ /hpf H 01/06/24 21:37 Coronavirus 229E (PCR) Not detected (NOT DETECT) 01/06/24 19:50 SARS-CoV-2 (PCR) Not detected (NOT DETECT) 01/06/24 19:50 Vitals Last Vital Signs Temp 97.9 F 01/07/24 07:33 Pulse 99 01/07/24 09:15 Resp 18 01/07/24 09:07 BP 114/69 01/07/24 07:33 Pulse Ox 98 01/07/24 09:07 O2 Del Method Nasal Cannula 01/07/24 09:07 O2 Flow Rate 2 01/07/24 09:07 Discharge Plan Discharge Patient Disposition: Home Condition: Stable Prescriptions: New cefpodoxime 200 mg tablet 200 mg PO BID Qty: 20 0RF Rx Instructions: must administer with a meal/food doxycycline hyclate 100 mg tablet 100 mg PO BID 7 Days Qty: 14 0RF Continued Anoro Ellipta 62.5-25 mcg/actuation blister with device 1 inh INHALATION DAILY Jardiance 10 mg tablet 10 mg PO DAILY apixaban 2.5 mg tablet 2.5 mg PO BID Qty: 180 2RF methimazole 5 mg tablet 5 mg PO DAILY Qty: 30 3RF (DME) Accu-Chek Ana M Plus test strp Strip See Rx Instructions .ROUTE .MEDSUPPLY Qty: 120 3RF Rx Instructions: check blood glucose four times a day tizanidine 4 mg tablet 4 mg PO BEDTIME nitroglycerin [Nitrostat] 0.4 mg Tablet, Sublingual 0.4 mg SUBLINGUAL Q5M PRN (Reason: Chest Pain) Rx Instructions: do not exceed 3 doses per episode insulin lispro [Humalog KwikPen Insulin] 100 unit/mL Insulin Pen 3 - 4 unit SUBCUT TID albuterol sulfate [Ventolin HFA] 90 mcg/actuation Hfa Aerosol Inhaler 2 puff INHALATION QID PRN (Reason: Shortness Of Breath) calcitriol 0.25 mcg capsule See Rx Instructions .ROUTE .COMPLEX Rx Instructions: TAKE 0.25 mcg orally 3 TIMES WEEKLY ON WEDNESDAY, WEDNESDAY, AND WEDNESDAY IN THE MORNING. metoprolol succinate 50 mg tablet extended release 24 hr 50 mg PO DAILY acetaminophen 500 mg Tablet 500 mg PO BEDTIME ipratropium-albuterol 0.5 mg-3 mg(2.5 mg base)/3 mL solution for nebulization 3 ml INHALATION QID PRN (Reason: Shortness Of Breath) Aspir-81 81 mg Tablet,Delayed Release (Dr/Ec) 81 mg PO QAM pantoprazole 40 mg tablet,delayed release (DR/EC) 40 mg PO BID clopidogrel [Plavix] 75 mg tablet 75 mg PO DAILY Qty: 60 0RF atorvastatin 40 mg tablet 40 mg PO BEDTIME venlafaxine 75 mg capsule,extended release 24hr See Rx Instructions .ROUTE .COMPLEX Rx Instructions: TAKE 75 MG BY MOUTH AT BEDTIME ALONG WITH 150 MG acitretin 10 mg capsule 10 mg PO QAM insulin glargine [Lantus Solostar U-100 Insulin] 100 unit/mL (3 mL) insulin pen 14 unit SUBCUT DAILY ergocalciferol (vitamin D2) [Vitamin D2] 1,250 mcg (50,000 unit) capsule 50,000 unit PO Q7D Rx Instructions: WEDNESDAY EVENINGS isosorbide mononitrate 60 mg tablet extended release 24 hr 60 mg PO BID ferrous sulfate [FeroSul] 325 mg (65 mg iron) tablet 325 mg PO Q12H furosemide 40 mg tablet 40 mg PO BID Qty: 60 0RF hydralazine 50 mg tablet 100 mg PO TID Qty: 7 0RF Held potassium chloride 10 mEq tablet extended release 10 meq PO DAILY Qty: 20 0RF Hold Instructions: Resume on 01/10/24. Entresto 49-51 mg tablet 1 tab PO BID Hold Instructions: Resume on 01/10/24. Discontinued venlafaxine [Effexor XR] 150 mg capsule,extended release 24hr See Rx Instructions .ROUTE .COMPLEX Rx Instructions: TAKE 150 MG BY MOUTH AT BEDTIME ALONG WITH 75 MG ciprofloxacin HCl 500 mg tablet 500 mg PO DAILY Discharge Orders: Discharge Order (Routine); Ordered 01/07/24 Ordered By: Smiley Hanson Referrals: Jocelyne Kirby PA [Primary Care Provider] - Discharge Diet: Diabetic Discharge Activity: Increase activity as tolerated Patient Instructions: Opioid Safety Discharge Attestations Time Spent in Discharge Care*: greater than 30 min Status at Discharge: Cognitive status at discharge: cognitively intact , Behavioral status at discharge: cooperative , Quality Metrics Clinical Quality Measures [ No reported AMI, CVA or VTE this stay] Coding Level of Care Code Acute Code for Chg Fwd Diagnoses Sepsis A41.9 Congestive heart failure I50.9 Stage 3a chronic kidney disease N18.31 Chronic kidney disease stage: stage 3 (moderate) Chronic kidney disease stage 3 subtype: stage 3a (GFR 45-59) Mitral regurgitation I34.0 GI bleed K92.2 Type 2 diabetes mellitus with diabetic peripheral angiopathy without gangrene, with long-term current use of insulin E11.51; Z79.4 Diabetes mellitus complication detail: with peripheral angiopathy without gangrene Diabetes mellitus complication status: with circulatory complication Diabetes mellitus [facility] insulin use: with emt intermediate use Diabetes mellitus type: type 2 COPD (chronic obstructive pulmonary disease) J44.9 Carotid arterial disease I77.9
[2024-01-07 10:40] LABS: Glucose Point of Care 279 mg/dL (70-110)
--- NOTE | 2024-01-07 14:01 | PC.NURSE ---
Delay in discharge due to patient not having a ride available until 1430 or after.
[2024-01-07] MEDS: acetaminophen 325 mg Tablet 650 MG PO (14:43)
--- NOTE | 2024-01-07 15:06 | PC.NURSE ---
Patient was transferring to wheel chair to discharge and received a skin tear to the right forearm. Skin tear was assessed and dressing applied
[2024-01-07 16:00] LABS: Bacillus cereus group Not Detected (NOT DETECT); Bacillus subtillis group Not Detected (NOT DETECT); Corynebacterium Not Detected (NOT DETECT); Cutibacterium acnes (P.acnes) Not Detected (NOT DETECT); Enterococcus Not Detected (NOT DETECT); Enterococcus faecalis Not Detected (NOT DETECT); Enterococcus faecium Not Detected (NOT DETECT); Lactobacillus species Not Detected (NOT DETECT); Listeria Not Detected (NOT DETECT); Listeria monocytogenes Not Detected (NOT DETECT); Micrococcus Not Detected (NOT DETECT); Pan Candida Not Detected (NOT DETECT); Pan Gram-Negative Not Detected (NOT DETECT); Staphylococcus epidermidis Not Detected (NOT DETECT); Staphylococcus lugdunensis Not Detected (NOT DETECT); Staphylococcus species Detected (NOT DETECT); Streptococcus agalactiae Not Detected (NOT DETECT); Streptococcus anginosus group Not Detected (NOT DETECT); Streptococcus pneumoniae Not Detected (NOT DETECT); Streptococcus pyogenes Not Detected (NOT DETECT); Streptococcus species Not Detected (NOT DETECT); mecA Not Detected (NOT DETECT); mecC Not Detected (NOT DETECT)
[2024-01-08 13:03] LABS: Methicillin-Resist S.aureu PCR NOT DETECTED (NOT DETECTED)
== END 2024-01-07 15:09 | disposition home or self-care (01) ==
LOC: ER 23:02 → MEDSURG 01-07 00:25
PROVIDERS: Admitting Provider Internal Medicine; Emergency Provider Student in an Organized Health Care Education/Training Program; PCP Physician Assistant; Visit Provider Internal Medicine
DX: A41.9 Sepsis, unspecified organism (principal); I34.0 Nonrheumatic mitral (valve) insufficiency; K92.2 Gastrointestinal hemorrhage, unspecified; E11.51 Type 2 diabetes mellitus with diabetic peripheral angiopathy without gangrene; Z79.4 Long term (current) use of insulin; J44.9 Chronic obstructive pulmonary disease, unspecified; E11.22 Type 2 diabetes mellitus with diabetic chronic kidney disease; I13.0 Hypertensive heart and chronic kidney disease with heart failure and stage 1 through stage 4 chronic kidney disease, or unspecified chronic kidney disease; N18.31 Chronic kidney disease, stage 3a; I77.9 Disorder of arteries and arterioles, unspecified; Z99.81 Dependence on supplemental oxygen; Z95.1 Presence of aortocoronary bypass graft; Z79.02 Long term (current) use of antithrombotics/antiplatelets; I50.20 Unspecified systolic (congestive) heart failure; I25.10 Atherosclerotic heart disease of native coronary artery without angina pectoris; I25.2 Old myocardial infarction; Z87.891 Personal history of nicotine dependence
CPT/HCPCS: 36415; 36416; 36600; 71045; 80048; 80053; 81001; 82803; 82962; 83605; 83735; 84100; 84145; 85025; 87040; 87077; 87150; 87186; 87205; 87635; 87641; 94640; 96365; 96372; 96375; 99285; G0378; J0692; J1815; J2919; J3010; J7040; J7626

== ENCOUNTER 2024-01-13 23:48 | Emergency (ER) | payer MEDICARE, MEDICAID, SELFPAY ==
[2024-01-13 23:49] VITALS: BP 125/51; PULSE 53; RESP 16; TEMP 36.7; O2SAT 100; BMI 24.7
--- NOTE | 2024-01-14 00:02 | XRR_ITS ---
PROCEDURE INFORMATION: Exam: XR Chest Exam date and time: 01/14/2024 12:46 AM Age: 73 years old Clinical indication: Cardiovascular condition or disease; Congestive heart failure (chf); Cause unknown; Type unknown TECHNIQUE: Imaging protocol: Radiologic exam of the chest. Views: 1 view. COMPARISON: CR XR chest 1V portable [id number] 01/06/2024 6:52 PM FINDINGS: Lungs: Similar-appearing reticular and micronodular densities of the right lower lobe, with perhaps slight worsening. Pleural spaces: Similar-appearing blunting of the right costophrenic angle. Heart/Mediastinum: Postprocedural changes of the cardiomediastinal silhouette. Vasculature: Atherosclerotic disease of the aortic arch. Bones/joints: Status post sternotomy. Diffuse degenerative change of the visualized osseous structures. XR/XR chest 1V portable [id number] IMPRESSION: 1. Slight increase in infiltration of the right lower lobe with associated pleural effusion. Infection is not excluded. Correlate clinically. 2. Remainder of the examination with details as above.
--- NOTE | 2024-01-14 00:02 | CTR_ITS ---
PROCEDURE INFORMATION: Exam: CT Abdomen And Pelvis Without Contrast Exam date and time: 01/14/2024 12:54 AM Age: 73 years old Clinical indication: Abdominal pain; Prior surgery; Surgery date: 6+ months; Surgery type: Renal stents, choley; Additional info: Decrease urine output TECHNIQUE: Imaging protocol: Computed tomography of the abdomen and pelvis without contrast. Radiation optimization: All CT scans at this facility use at least one of these dose optimization techniques: automated exposure control; mA and/or kV adjustment per patient size (includes targeted exams where dose is matched to clinical indication); or iterative reconstruction. COMPARISON: CT angio abd aorta runof [id number] 08/25/2019 2:39 PM RADIATION DOSE METRICS: Total DLP (mGy-cm): 459.29 FINDINGS: Pleural spaces: [id number] right pleural effusion with adjacent atelectasis. Trace to small right pleural effusion with adjacent atelectasis. Heart: Moderate cardiomegaly. No pericardial effusion or pericardial thickening. Liver: The liver is normal. No hepatic masses are identified. Gallbladder and biliary ducts: The gallbladder is surgically absent. There is no ductal dilatation. Pancreas: The pancreas is atrophic without obvious abnormality. Spleen: Calcified splenic granulomata are noted. The spleen is otherwise normal. Adrenal glands: Stable appearance of the adrenal glands. Kidneys and ureters: No hydronephrosis. The right kidney is somewhat small. Small calcifications projecting over the bilateral renal carey are likely vascular in origin. Stomach and bowel: Mild colonic diverticulosis without diverticulitis. There is no large or small bowel obstruction. There is no evidence of bowel wall thickening. Appendix: A normal appendix is identified. Intraperitoneal space: No inflammatory changes are identified. Trace abdominopelvic free fluid. No fluid collections. There is no pneumoperitoneum. Vasculature: Atherosclerotic calcifications of the aorta are present. There is a 3.4 cm infrarenal abdominal aortic aneurysm. Bilateral iliac arterial stents are present. Lymph nodes: No enlarged lymph nodes are identified. Urinary bladder: The bladder is unremarkable. Reproductive: The uterus is absent. Bones/joints: Chronic appearing moderate superior endplate compression fracture of L2, new compared to 2019. Bilateral L5 spondylolysis with trace anterolisthesis of L5 on S1. Degenerative changes of the spine. No acute osseous abnormalities are seen. Soft tissues: Moderate diffuse subcutaneous edema consistent with anasarca. CT/CT kidney stone [id number] IMPRESSION: 1. No acute intra-abdominal or pelvic process. 2. Bilateral pleural effusions, anasarca, and trace abdominopelvic free fluid. Correlate with fluid status. 3. Other nonemergent findings above.
--- NOTE | 2024-01-14 00:02 | ECG_ITS ---
[facility] Test Date: 2024-01-14 Pat Name: Romi Yuan Department: Room: Gender: Female Change Analyst: : 1950 Requested By: Qamar Amin Order Number: [id number] Tessa MD: Tristin Goldstein M.D. Measurements Intervals [place] Rate: 51 P: 100 PA: 183 QRS: -48 QRSD: 108 T: 138 QT: 469 QTc: 433 Interpretive Statements SINUS BRADYCARDIA LEFT AXIS DEVIATION [QRS AXIS < -30] PATTERN CONSISTENT WITH PULMONARY DISEASE INCOMPLETE RIGHT BUNDLE BRANCH BLOCK [90+ ms QRS DURATION, TERMINAL R IN V1/V2, 40+ ms S IN I/aVL/V4/V5/V6] LEFT VENTRICULAR HYPERTROPHY AND ST-T CHANGE [VOLTAGE CRITERIA PLUS ST/T ABNORMALITY] Compared to ECG 12/29/2023 21:41:24 Incomplete right bundle-branch block now present Sinus rhythm no longer present ST (T wave) deviation still present Electronically Signed On 01-14-2024 11:54:08 CDT by Tristin Goldstein M.D. [email or web address]
--- NOTE | 2024-01-14 00:03 | W.ED.FEMALGU ---
Documented by User: [email or web address] Moran 01/15/24 13:27 HPI - Female Genitourinary General: Chief complaint: Urogenital-Female Stated complaint: dysuria x 1 day Time Seen by Provider: 01/13/24 23:54 History of Present Illness: Patient comes in today for concerns of decreased urine output. Patient states that she Had a Recent cardiac cath 3 days ago and was told to monitor her urine output. Patient noticed that she had only had 50 mL out over the last few hours which was not what she was expected to have. Patient was concerned and came into the ER for further evaluation. Patient also reports some increased swelling. Patient reports no increase in shortness of breath. Patient has a history of valve heart disease, COPD, coronary artery disease, and chronic kidney disease. Review of Systems General: Reports: 10 or more systems reviewed and unremarkable except in HPI and below PFSH ED PFSH: Medical History CAD (coronary artery disease) Carotid arterial disease NSTEMI (non-ST elevated myocardial infarction) Chronic kidney disease Diabetes mellitus Congestive heart failure Community acquired pneumonia Hypertension, uncontrolled Stable angina Anemia Ischemic cardiomyopathy Atherosclerotic heart disease of [place] coronary artery with other forms of angina pectoris CHF exacerbation Acute non-ST elevation myocardial infarction (NSTEMI) Pulmonary embolism Congestive heart failure Acute respiratory failure with hypoxia Acute exacerbation of CHF (congestive heart failure) PAD (peripheral artery disease) Dyslipidemia HTN (hypertension) Eczema Clostridioides difficile infection (07/2022) Insomnia CHF (congestive heart failure) Hypertensive urgency Pneumonia due to COVID-19 virus (~06/2022) Colon polyps History of skin cancer Hyperthyroidism Graves disease History of CVA (cerebrovascular accident) COPD (chronic obstructive pulmonary disease) Anxiety ASHD (arteriosclerotic heart disease) Surgical History Status post insertion of iliac artery stent History of coronary artery stent placement History of cardiac catheterization 06/25/2022 Left main artery: Short, patent. Left circumflex artery: Has patent stents, no significant stenosis. LAD:Occluded in the midsegment. RCA: Known occluded. Not injected. SVG to diagonal artery and SVG to RCA are known occluded. Not injected. LOVETT to LAD: Patent. Coronary anatomy unchanged compared to before. History of renal stent Hx of local excision of skin lesion (09/16/20) Left forearm x2 Status post colonoscopy (09/16/20) S/P hysterectomy with oophorectomy S/P cholecystectomy S/P CABG (coronary artery bypass graft) twice, last in 2004 History of endovascular stent graft for abdominal aortic aneurysm (AAA) S/P cataract surgery S/P skin and subcutaneous tissue surgery Family History Sister Mark's disease Sister No problems noted. Mother No problems noted. Other Anesthesia complication Social History Smoking and tobacco/nicotine status: former use of tobacco/nicotine Alcohol intake: current Alcohol intake frequency: holidays/special occasions only Substance/Drug Use: current Physical Exam Const: COMMON NORMALS: alert HENMT: COMMON NORMALS: normocephalic HEAD & SCALP: normocephalic Neck/C-Spine: COMMON NORMALS: full ROM Resp: COMMON NORMALS: normal respiratory effort AUSCULTATION: rhonchi Cardio: COMMON NORMALS: regular rate RATE: regular rate GI: COMMON NORMALS: Soft to palpation PALPATION: Yes Soft to palpation Extremity: NARRATIVE EXTREMITY EXAM: Edema at the ankles. +1 pitting. Patient reports swelling up to her thighs. Neuro: SENSORIUM/ORIENTATION: Yes alert Skin: COMMON NORMALS: turgor normal GENERAL SKIN EXAM: turgor normal Course Vital Signs: Vital signs: Vital Signs Temperature 98.1 F 01/13/24 23:49 Pulse Rate 64 01/14/24 04:25 Respiratory Rate 16 01/13/24 23:49 Blood Pressure 129/60 01/14/24 04:25 Pulse Oximetry 100 01/14/24 04:25 Oxygen Delivery Me thod Nasal Cannula 01/14/24 01:30 Oxygen Flow Rate 3 01/13/24 23:49 MDM - Female Medical Decision Making 73-year-old female with recent cardiac history of a valve clip done on around December 30, patient is also recently had a cardiac cath done approximately 3 days ago. Patient was told to monitor her urine output but did not notice much urine output over the last few hours only about 50 mL this evening. Patient does report that she has been drinking water. On exam we note some pitting edema to the bilateral lower legs with +1 pitting. Patient has office lung sounds. Vital signs are normal except for some mild bradycardia at 53. Patient's oxygen saturation is 100% on 3 L nasal cannula. Differential diagnosis includes congestive heart failure, renal failure, dehydration. 1250, reviewed patient with Dr. Roberts who agreed to assume care of patient at the end of my shift. Lab Data 01/14/24 00:45 01/14/24 00:45 Radiology Impressions Abdomen/Pelvis CT 01/14/24 00:02 IMPRESSION: 1. No acute intra-abdominal or pelvic process. 2. Bilateral pleural effusions, anasarca, and trace abdominopelvic free fluid. Correlate with fluid status. 3. Other nonemergent findings above. Chest X-Ray 01/14/24 00:02 IMPRESSION: 1. Slight increase in infiltration of the right lower lobe with associated pleural effusion. Infection is not excluded. Correlate clinically. 2. Remainder of the examination with details as above. Laboratory Results WBC 8.22 10^3/uL (3.29-11.43) 01/14/24 00:45 RBC 3.63 10^6/uL (3.85-5.65) L 01/14/24 00:45 Hgb 9.00 g/dL (11.27-16.99) L 01/14/24 00:45 Hct 30.5 % (36-47) L 01/14/24 00:45 MCV 84.0 fl (85-98) L 01/14/24 00:45 MCH 24.8 pg (27-33) L 01/14/24 00:45 MCHC 29.5 g/dL (30-55) L 01/14/24 00:45 RDW 18.8 % (12.1-15.1) H 01/14/24 00:45 Plt Count 267 10^3/cmm (157-399) 01/14/24 00:45 MPV 10.9 fL (7.4-10.4) H 01/14/24 00:45 Neut % (Auto) 71.5 % 01/14/24 00:45 Lymph % (Auto) 20.6 % 01/14/24 00:45 [place] % (Auto) 6.0 % 01/14/24 00:45 Eos % (Auto) 1.2 % 01/14/24 00:45 Baso % (Auto) 0.2 % 01/14/24 00:45 Neut # (Auto) 5.88 10^3/uL (1.8-7.7) 01/14/24 00:45 Lymph # (Auto) 1.7 10^3/uL (0.8-4.8) 01/14/24 00:45 [place] # (Auto) 0.5 10^3/uL (0.2-0.9) 01/14/24 00:45 Eos # (Auto) 0.1 10^3/uL (0.0-0.8) 01/14/24 00:45 Baso # (Auto) 0.0 10^3/uL (0.0-0.1) 01/14/24 00:45 Nucleated RBC % (auto) 0 % 01/14/24 00:45 Nucleated RBCs # 0.0 /100WBC 01/14/24 00:45 Sodium 136 mmol/L (136-145) 01/14/24 00:45 Potassium 4.6 mmol/L (3.5-5.1) 01/14/24 00:45 Chloride 103 mmol/L (98-107) 01/14/24 00:45 Carbon Dioxide 19 mmol/L (22-29) L 01/14/24 00:45 Anion Gap 18.6 (5-19) 01/14/24 00:45 BUN 53 mg/dL (8-23) H 01/14/24 00:45 Creatinine 2.2 mg/dL (0.5-0.9) H 01/14/24 00:45 GFR Calculation Not Reportable 01/14/24 00:45 Glucose 290 mg/dL (65-115) H 01/14/24 00:45 Calculated Osmolality 305 mOsm/kg (285-295) H 01/14/24 00:45 Calcium 8.1 mg/dL (8.5-10.5) L 01/14/24 00:45 Total Bilirubin 0.2 mg/dL (0.15-1.2) 01/14/24 00:45 AST 24 U/L (0-32) 01/14/24 00:45 ALT 16 U/L (0-33) 01/14/24 00:45 Alkaline Phosphatase 162 U/L (35-105) H 01/14/24 00:45 Troponin T Baseline 565 ng/L (0-10) H* 01/14/24 00:45 Troponin T 120 Minute 473.5 ng/L (0-10) H 01/14/24 03:02 Delta Troponin T -91.5 ABS# (0-10) L 01/14/24 03:02 NT-Pro-B Natriuret Pep > 47626 pg/mL (0-125) H 01/14/24 00:45 Total Protein 5.8 g/dL (6.6-8.7) L 01/14/24 00:45 Albumin 3.0 g/dL (3.5-5.2) L 01/14/24 00:45 Globulin 2.7 g/dL (1.3-4.6) 01/14/24 00:45 Urine Color Dark yellow (Yellow) A 01/14/24 02:00 Urine Appearance Clear (CLEAR) 01/14/24 02:00 Urine pH 5.0 (5-7) 01/14/24 02:00 Ur Specific [place] 1.020 (1.005-1.030) 01/14/24 02:00 Urine Protein 3+ (Negative) A 01/14/24 02:00 Urine Glucose (UA) Trace (Normal) H 01/14/24 02:00 Urine Ketones Negative (Negative) 01/14/24 02:00 Urine Blood Negative (Negative) 01/14/24 02:00 Urine Nitrate Negative (Negative) 01/14/24 02:00 Urine Bilirubin 1+ (Negative) H 01/14/24 02:00 Urine Urobilinogen 1.0 mg/dL (Negative) 01/14/24 02:00 Ur Leukocyte Esterase Negative (Negative) 01/14/24 02:00 Urine RBC 3-5 /hpf (0-2) 01/14/24 02:00 Urine WBC 0-5 /hpf (0-5) 01/14/24 02:00 Ur Squamous Epith Cells 0-5 /hpf (0-5) 01/14/24 02:00 Amorphous Sediment Not Reportable 01/14/24 02:00 Urine Bacteria Few /hpf (NONE) 01/14/24 02:00 Hyaline Casts 25.23 /lpf 01/14/24 02:00 Urine Yeast 1+ /hpf H 01/14/24 02:00 Discharge Plan Discharge Patient Disposition: Home Clinical Impression: Edema Qualifiers: Edema type: localized Qualified Code(s): R60.0 - Localized edema Chronic kidney disease Qualifiers: Chronic kidney disease stage: unspecified stage Qualified Code(s): N18.9 - Chronic kidney disease, unspecified Condition: Stable Prescriptions: No Action Anoro Ellipta 62.5-25 mcg/actuation blister with device 1 inh INHALATION DAILY Jardiance 10 mg tablet 10 mg PO DAILY apixaban 2.5 mg tablet 2.5 mg PO BID Qty: 180 2RF methimazole 5 mg tablet 5 mg PO DAILY Qty: 30 3RF (DME) Accu-Chek Ana M Plus test strp Strip See Rx Instructions .ROUTE .MEDSUPPLY Qty: 120 3RF Rx Instructions: check blood glucose four times a day tizanidine 4 mg tablet 4 mg PO BEDTIME nitroglycerin [Nitrostat] 0.4 mg Tablet, Sublingual 0.4 mg SUBLINGUAL Q5M PRN (Reason: Chest Pain) Rx Instructions: do not exceed 3 doses per episode insulin lispro [Humalog KwikPen Insulin] 100 unit/mL Insulin Pen 3 - 4 unit SUBCUT TID albuterol sulfate [Ventolin HFA] 90 mcg/actuation Hfa Aerosol Inhaler 2 puff INHALATION QID PRN (Reason: Shortness Of Breath) calcitriol 0.25 mcg capsule See Rx Instructions .ROUTE .COMPLEX Rx Instructions: TAKE 0.25 mcg orally 3 TIMES WEEKLY ON WEDNESDAY, WEDNESDAY, AND WEDNESDAY IN THE MORNING. metoprolol succinate 50 mg tablet extended release 24 hr 50 mg PO DAILY potassium chloride 10 mEq tablet extended release 10 meq PO DAILY Qty: 20 0RF Hold Instructions: Resume on 01/10/24. acetaminophen 500 mg Tablet 500 mg PO BEDTIME ipratropium-albuterol 0.5 mg-3 mg(2.5 mg base)/3 mL solution for nebulization 3 ml INHALATION QID PRN (Reason: Shortness Of Breath) aspirin 81 mg Tablet,Delayed Release (Dr/Ec) 81 mg PO QAM pantoprazole 40 mg tablet,delayed release (DR/EC) 40 mg PO BID cefpodoxime 200 mg tablet 200 mg PO BID Qty: 20 0RF Rx Instructions: must administer with a meal/food clopidogrel [Plavix] 75 mg tablet 75 mg PO DAILY Qty: 60 0RF atorvastatin 40 mg tablet 40 mg PO BEDTIME venlafaxine 75 mg capsule,extended release 24hr See Rx Instructions .ROUTE .COMPLEX Rx Instructions: TAKE 75 MG BY MOUTH AT BEDTIME ALONG WITH 150 MG acitretin 10 mg capsule 10 mg PO QAM insulin glargine [Lantus Solostar U-100 Insulin] 100 unit/mL (3 mL) insulin pen 14 unit SUBCUT DAILY ergocalciferol (vitamin D2) [Vitamin D2] 1,250 mcg (50,000 unit) capsule 50,000 unit PO Q7D Rx Instructions: WEDNESDAY EVENINGS isosorbide mononitrate 60 mg tablet extended release 24 hr 60 mg PO BID ferrous sulfate [FeroSul] 325 mg (65 mg iron) tablet 325 mg PO Q12H Entresto 49-51 mg tablet 1 tab PO BID Hold Instructions: Resume on 01/10/24. furosemide 40 mg tablet 40 mg PO BID Qty: 60 0RF hydralazine 50 mg tablet 100 mg PO TID Qty: 7 0RF Discharge Orders: Discharge ED (Routine); Ordered 01/14/24 Ordered By: Jose Alberto Roberts Referrals: Jocelyne Kirby PA [Primary Care Provider] - 1 week Patient Instructions: Chronic Kidney Disease (ED), Edema (ED) Activity Restrictions/Additional Instructions: Thank you for choosing [facility] for your healthcare needs today. Please realize that you were seen in the emergency department and that we are providing you with an emergency medical screening exam and this may not be a complete and all exclusive of all testing and/or medical workup we may need to determine your element or severity of your illness. It is very important that you follow-up as instructed with your primary care provider or specialist for the additional evaluation and to discuss your medical treatment plan. You may return to the emergency department should you have concerns or if your condition changes or worsens in any way. Coding Level of Care Code ED Burn Crew Member for Kiarn Holland Documented by User: Jose Alberto Roberts DO 01/14/24 04:06 HPI - Female Genitourinary General: Chief complaint: Urogenital-Female Stated complaint: dysuria x 1 day Time Seen by Provider: 01/13/24 23:54 PFSH ED PFSH: Medical History CAD (coronary artery disease) Carotid arterial disease NSTEMI (non-ST elevated myocardial infarction) Chronic kidney disease Diabetes mellitus Congestive heart failure Community acquired pneumonia Hypertension, uncontrolled Stable angina Anemia Ischemic cardiomyopathy Atherosclerotic heart disease of [place] coronary artery with other forms of angina pectoris CHF exacerbation Acute non-ST elevation myocardial infarction (NSTEMI) Pulmonary embolism Congestive heart failure Acute respiratory failure with hypoxia Acute exacerbation of CHF (congestive heart failure) PAD (peripheral artery disease) Dyslipidemia HTN (hypertension) Eczema Clostridioides difficile infection (07/2022) Insomnia CHF (congestive heart failure) Hypertensive urgency Pneumonia due to COVID-19 virus (~06/2022) Colon polyps History of skin cancer Hyperthyroidism Graves disease History of CVA (cerebrovascular accident) COPD (chronic obstructive pulmonary disease) Anxiety ASHD (arteriosclerotic heart disease) Surgical History Status post insertion of iliac artery stent History of coronary artery stent placement History of cardiac catheterization 06/25/2022 Left main artery: Short, patent. Left circumflex artery: Has patent stents, no significant stenosis. LAD:Occluded in the midsegment. RCA: Known occluded. Not injected. SVG to diagonal artery and SVG to RCA are known occluded. Not injected. LOVETT to LAD: Patent. Coronary anatomy unchanged compared to before. History of renal stent Hx of local excision of skin lesion (09/16/20) Left forearm x2 Status post colonoscopy (09/16/20) S/P hysterectomy with oophorectomy S/P cholecystectomy S/P CABG (coronary artery bypass graft) twice, last in 2004 History of endovascular stent graft for abdominal aortic aneurysm (AAA) S/P cataract surgery S/P skin and subcutaneous tissue surgery Family History Sister Mark's disease Sister No problems noted. Mother No problems noted. Other Anesthesia complication Social History Smoking and tobacco/nicotine status: former use of tobacco/nicotine Alcohol intake: current Alcohol intake frequency: holidays/special occasions only Substance/Drug Use: current Course Vital Signs: Vital signs: Vital Signs Temperature 98.1 F 01/13/24 23:49 Pulse Rate 64 01/14/24 04:25 Respiratory Rate 16 01/13/24 23:49 Blood Pressure 129/60 01/14/24 04:25 Pulse Oximetry 100 01/14/24 04:25 Oxygen Delivery Nj thod Nasal Cannula 01/14/24 01:30 Oxygen Flow Rate 3 01/13/24 23:49 MDM - Female Medical Decision Making 73-year-old female with recent cardiac history of a valve clip done on around December 30, patient is also recently had a cardiac cath done approximately 3 days ago. Patient was told to monitor her urine output but did not notice much urine output over the last few hours only about 50 mL this evening. Patient does report that she has been drinking water. On exam we note some pitting edema to the bilateral lower legs with +1 pitting. Patient has office lung sounds. Vital signs are normal except for some mild bradycardia at 53. Patient's oxygen saturation is 100% on 3 L nasal cannula. Differential diagnosis includes congestive heart failure, renal failure, dehydration. 1250, reviewed patient with Dr. Roberts who agreed to assume care of patient at the end of my shift. Patient care was transferred to ca at shift change we are waiting for all lab work and CT scan to come back. These results was discussed with the patient who has been given Tylenol and tramadol for her back pain secondary to laying in bed. We will discharge patient home. Patient hemoglobin is 9.0, BUN/creatinine stable at 53 and 2.2, BNP greater than 70,000, initial Trope was 565, 2-hour Trope was 473, this is consistent with someone who has recently had cardiac surgery. Patient is chest pain-free now and has been chest pain-free the entire time and there is no EKG changes. Lab Data 01/14/24 00:45 01/14/24 00:45 Radiology Impressions Abdomen/Pelvis CT 01/14/24 00:02 IMPRESSION: 1. No acute intra-abdominal or pelvic process. 2. Bilateral pleural effusions, anasarca, and trace abdominopelvic free fluid. Correlate with fluid status. 3. Other nonemergent findings above. Chest X-Ray 01/14/24 00:02 IMPRESSION: 1. Slight increase in infiltration of the right lower lobe with associated pleural effusion. Infection is not excluded. Correlate clinically. 2. Remainder of the examination with details as above. Laboratory Results WBC 8.22 10^3/uL (3.29-11.43) 01/14/24 00:45 RBC 3.63 10^6/uL (3.85-5.65) L 01/14/24 00:45 Hgb 9.00 g/dL (11.27-16.99) L 01/14/24 00:45 Hct 30.5 % (36-47) L 01/14/24 00:45 MCV 84.0 fl (85-98) L 01/14/24 00:45 MCH 24.8 pg (27-33) L 01/14/24 00:45 MCHC 29.5 g/dL (30-55) L 01/14/24 00:45 RDW 18.8 % (12.1-15.1) H 01/14/24 00:45 Plt Count 267 10^3/cmm (157-399) 01/14/24 00:45 MPV 10.9 fL (7.4-10.4) H 01/14/24 00:45 Neut % (Auto) 71.5 % 01/14/24 00:45 Lymph % (Auto) 20.6 % 01/14/24 00:45 [place] % (Auto) 6.0 % 01/14/24 00:45 Eos % (Auto) 1.2 % 01/14/24 00:45 Baso % (Auto) 0.2 % 01/14/24 00:45 Neut # (Auto) 5.88 10^3/uL (1.8-7.7) 01/14/24 00:45 Lymph # (Auto) 1.7 10^3/uL (0.8-4.8) 01/14/24 00:45 [place] # (Auto) 0.5 10^3/uL (0.2-0.9) 01/14/24 00:45 Eos # (Auto) 0.1 10^3/uL (0.0-0.8) 01/14/24 00:45 Baso # (Auto) 0.0 10^3/uL (0.0-0.1) 01/14/24 00:45 Nucleated RBC % (auto) 0 % 01/14/24 00:45 Nucleated RBCs # 0.0 /100WBC 01/14/24 00:45 Sodium 136 mmol/L (136-145) 01/14/24 00:45 Potassium 4.6 mmol/L (3.5-5.1) 01/14/24 00:45 Chloride 103 mmol/L (98-107) 01/14/24 00:45 Carbon Dioxide 19 mmol/L (22-29) L 01/14/24 00:45 Anion Gap 18.6 (5-19) 01/14/24 00:45 BUN 53 mg/dL (8-23) H 01/14/24 00:45 Creatinine 2.2 mg/dL (0.5-0.9) H 01/14/24 00:45 GFR Calculation Not Reportable 01/14/24 00:45 Glucose 290 mg/dL (65-115) H 01/14/24 00:45 Calculated Osmolality 305 mOsm/kg (285-295) H 01/14/24 00:45 Calcium 8.1 mg/dL (8.5-10.5) L 01/14/24 00:45 Total Bilirubin 0.2 mg/dL (0.15-1.2) 01/14/24 00:45 AST 24 U/L (0-32) 01/14/24 00:45 ALT 16 U/L (0-33) 01/14/24 00:45 Alkaline Phosphatase 162 U/L (35-105) H 01/14/24 00:45 Troponin T Baseline 565 ng/L (0-10) H* 01/14/24 00:45 Troponin T 120 Minute 473.5 ng/L (0-10) H 01/14/24 03:02 Delta Troponin T -91.5 ABS# (0-10) L 01/14/24 03:02 NT-Pro-B Natriuret Pep > 35272 pg/mL (0-125) H 01/14/24 00:45 Total Protein 5.8 g/dL (6.6-8.7) L 01/14/24 00:45 Albumin 3.0 g/dL (3.5-5.2) L 01/14/24 00:45 Globulin 2.7 g/dL (1.3-4.6) 01/14/24 00:45 Urine Color Dark yellow (Yellow) A 01/14/24 02:00 Urine Appearance Clear (CLEAR) 01/14/24 02:00 Urine pH 5.0 (5-7) 01/14/24 02:00 Ur Specific [place] 1.020 (1.005-1.030) 01/14/24 02:00 Urine Protein 3+ (Negative) A 01/14/24 02:00 Urine Glucose (UA) Trace (Normal) H 01/14/24 02:00 Urine Ketones Negative (Negative) 01/14/24 02:00 Urine Blood Negative (Negative) 01/14/24 02:00 Urine Nitrate Negative (Negative) 01/14/24 02:00 Urine Bilirubin 1+ (Negative) H 01/14/24 02:00 Urine Urobilinogen 1.0 mg/dL (Negative) 01/14/24 02:00 Ur Leukocyte Esterase Negative (Negative) 01/14/24 02:00 Urine RBC 3-5 /hpf (0-2) 01/14/24 02:00 Urine WBC 0-5 /hpf (0-5) 01/14/24 02:00 Ur Squamous Epith Cells 0-5 /hpf (0-5) 01/14/24 02:00 Amorphous Sediment Not Reportable 01/14/24 02:00 Urine Bacteria Few /hpf (NONE) 01/14/24 02:00 Hyaline Casts 25.23 /lpf 01/14/24 02:00 Urine Yeast 1+ /hpf H 01/14/24 02:00 All radiology interpretation(s) finalized by discharge Discharge Plan Discharge Patient Disposition: Home Clinical Impression: Edema Qualifiers: Edema type: localized Qualified Code(s): R60.0 - Localized edema Chronic kidney disease Qualifiers: Chronic kidney disease stage: unspecified stage Qualified Code(s): N18.9 - Chronic kidney disease, unspecified Condition: Stable Prescriptions: No Action Anoro Ellipta 62.5-25 mcg/actuation blister with device 1 inh INHALATION DAILY Jardiance 10 mg tablet 10 mg PO DAILY apixaban 2.5 mg tablet 2.5 mg PO BID Qty: 180 2RF methimazole 5 mg tablet 5 mg PO DAILY Qty: 30 3RF (DME) Accu-Chek Ana M Plus test strp Strip See Rx Instructions .ROUTE .MEDSUPPLY Qty: 120 3RF Rx Instructions: check blood glucose four times a day tizanidine 4 mg tablet 4 mg PO BEDTIME nitroglycerin [Nitrostat] 0.4 mg Tablet, Sublingual 0.4 mg SUBLINGUAL Q5M PRN (Reason: Chest Pain) Rx Instructions: do not exceed 3 doses per episode insulin lispro [Humalog KwikPen Insulin] 100 unit/mL Insulin Pen 3 - 4 unit SUBCUT TID albuterol sulfate [Ventolin HFA] 90 mcg/actuation Hfa Aerosol Inhaler 2 puff INHALATION QID PRN (Reason: Shortness Of Breath) calcitriol 0.25 mcg capsule See Rx Instructions .ROUTE .COMPLEX Rx Instructions: TAKE 0.25 mcg orally 3 TIMES WEEKLY ON WEDNESDAY, WEDNESDAY, AND WEDNESDAY IN THE MORNING. metoprolol succinate 50 mg tablet extended release 24 hr 50 mg PO DAILY potassium chloride 10 mEq tablet extended release 10 meq PO DAILY Qty: 20 0RF Hold Instructions: Resume on 01/10/24. acetaminophen 500 mg Tablet 500 mg PO BEDTIME ipratropium-albuterol 0.5 mg-3 mg(2.5 mg base)/3 mL solution for nebulization 3 ml INHALATION QID PRN (Reason: Shortness Of Breath) aspirin 81 mg Tablet,Delayed Release (Dr/Ec) 81 mg PO QAM pantoprazole 40 mg tablet,delayed release (DR/EC) 40 mg PO BID cefpodoxime 200 mg tablet 200 mg PO BID Qty: 20 0RF Rx Instructions: must administer with a meal/food clopidogrel [Plavix] 75 mg tablet 75 mg PO DAILY Qty: 60 0RF atorvastatin 40 mg tablet 40 mg PO BEDTIME venlafaxine 75 mg capsule,extended release 24hr See Rx Instructions .ROUTE .COMPLEX Rx Instructions: TAKE 75 MG BY MOUTH AT BEDTIME ALONG WITH 150 MG acitretin 10 mg capsule 10 mg PO QAM insulin glargine [Lantus Solostar U-100 Insulin] 100 unit/mL (3 mL) insulin pen 14 unit SUBCUT DAILY ergocalciferol (vitamin D2) [Vitamin D2] 1,250 mcg (50,000 unit) capsule 50,000 unit PO Q7D Rx Instructions: WEDNESDAY EVENINGS isosorbide mononitrate 60 mg tablet extended release 24 hr 60 mg PO BID ferrous sulfate [FeroSul] 325 mg (65 mg iron) tablet 325 mg PO Q12H Entresto 49-51 mg tablet 1 tab PO BID Hold Instructions: Resume on 01/10/24. furosemide 40 mg tablet 40 mg PO BID Qty: 60 0RF hydralazine 50 mg tablet 100 mg PO TID Qty: 7 0RF Discharge Orders: Discharge ED (Routine); Ordered 01/14/24 Ordered By: Jose Alberto Roberts Referrals: Jocelyne Kirby PA [Primary Care Provider] - 1 week Patient Instructions: Chronic Kidney Disease (ED), Edema (ED) Activity Restrictions/Additional Instructions: Thank you for choosing [facility] for your healthcare needs today. Please realize that you were seen in the emergency department and that we are providing you with an emergency medical screening exam and this may not be a complete and all exclusive of all testing and/or medical workup we may need to determine your element or severity of your illness. It is very important that you follow-up as instructed with your primary care provider or specialist for the additional evaluation and to discuss your medical treatment plan. You may return to the emergency department should you have concerns or if your condition changes or worsens in any way. Coding Level of Care Code ED Burn Crew Member for Kiran Holland
[2024-01-14 00:52] LABS: Basophils % 0.2 %; Eosinophils # 0.1 10^3/uL (0.0-0.8); Eosinophils % 1.2 %; Hematocrit 30.5 % (36-47); Lymphocytes # 1.7 10^3/uL (0.8-4.8); Lymphocytes % 20.6 %; Mean Corpuscular HGB Conc 29.5 g/dL (30-55); Mean Corpuscular Hemoglobin 24.8 pg (27-33); Mean Platelet Volume 10.9 fL (7.4-10.4); Monocytes # 0.5 10^3/uL (0.2-0.9); Neutrophils # 5.88 10^3/uL (1.8-7.7); Neutrophils % 71.5 %; Nucleated Red Blood Cells % 0 %; Platelet Count 267 10^3/cmm (157-399); Red Blood Count 3.63 10^6/uL (3.85-5.65); Red Cell Distribution Width 18.8 % (12.1-15.1); White Blood Count 8.22 10^3/uL (3.29-11.43)
[2024-01-14 00:57] VITALS: BP 133/89
[2024-01-14 01:13] LABS: Troponin(5th) Baseline 565 ng/L (0-10)
[2024-01-14 01:14] LABS: Alanine Aminotransferase 16 U/L (0-33); Aspartate Amino Transferase 24 U/L (0-32); Chloride 103 mmol/L (98-107); Globulin 2.7 g/dL (1.3-4.6); Potassium 4.6 mmol/L (3.5-5.1); Sodium 136 mmol/L (136-145)
[2024-01-14 01:25] LABS: Alkaline Phosphatase 162 U/L (35-105); Anion Gap 18.6 (5-19); Blood Urea Nitrogen 53 mg/dL (8-23); Calcium 8.1 mg/dL (8.5-10.5); Carbon Dioxide 19 mmol/L (22-29); Creatinine Clr Calc Pharmacy 18.0997; Glucose 290 mg/dL (65-115); Osmolality Calculated 305 mOsm/kg (285-295); Total Bilirubin 0.2 mg/dL (0.15-1.2); Total Protein 5.8 g/dL (6.6-8.7)
[2024-01-14 01:30] VITALS: BP 148/75; PULSE 54; O2SAT 94
[2024-01-14] MEDS: acetaminophen 500 mg Tablet 1000 MG PO (01:34)
[2024-01-14 01:57] VITALS: BP 158/72; PULSE 53
[2024-01-14 02:00] VITALS: BP 158/72; PULSE 53
[2024-01-14 02:08] LABS: Charge for UA Resulting for Rev
--- NOTE | 2024-01-14 02:08 | ECG_ITS ---
[facility] Test Date: 2024-01-14 Pat Name: Romi Yuan Department: Room: Gender: Female Emergency Department Physician: : 1950 Requested By: Qamar Amin Order Number: [id number] Tessa MD: Tristin Goldstein M.D. Measurements Intervals [place] Rate: 54 P: 27 CO: 185 QRS: -34 QRSD: 113 T: 133 QT: 456 QTc: 433 Interpretive Statements SINUS BRADYCARDIA LEFT AXIS DEVIATION [QRS AXIS < -30] PATTERN CONSISTENT WITH PULMONARY DISEASE INCOMPLETE RIGHT BUNDLE BRANCH BLOCK [90+ ms QRS DURATION, TERMINAL R IN V1/V2, 40+ ms S IN I/aVL/V4/V5/V6] LEFT VENTRICULAR HYPERTROPHY AND ST-T CHANGE [VOLTAGE CRITERIA PLUS ST/T ABNORMALITY] Compared to ECG 01/14/2024 00:38:42 No significant changes Electronically Signed On 01-14-2024 11:57:25 CDT by Tristin Goldstein M.D. [email or web address] [id number]
[2024-01-14 02:12] LABS: Bilirubin Urine 1+ (Negative); Blood Urine Negative (Negative); Glucose Urine UA Trace (Normal); Ketones Urine Negative (Negative); Leukocyte Esterase Urine Negative (Negative); Nitrate Urine Negative (Negative); Protein Urine 3+ (Negative); Urine Appearance Clear (CLEAR); Urine Color Dark Yellow (Yellow)
[2024-01-14 02:13] LABS: NT Pro B Type Natriuretic Pept > 70000 pg/mL (0-125)
[2024-01-14 02:21] LABS: Hyaline Casts Urine 25.23 /lpf; Squamous Epithelial Cell Urine 0-5 /hpf (0-5); WBC Urine 0-5 /hpf (0-5)
[2024-01-14 02:29] LABS: Bacteria Urine Few /hpf
[2024-01-14 02:30] LABS: Add Urine Culture? Yes
[2024-01-14] MEDS: TRAMadol 50 mg Tablet PO (03:19)
[2024-01-14 03:21] VITALS: BP 142/77; PULSE 55; O2SAT 100
[2024-01-14 03:28] LABS: Troponin 5 2HR Delta -91.5 ABS# (0-10)
[2024-01-14 03:29] LABS: Troponin 5 2HR 473.5 ng/L (0-10)
[2024-01-14 04:25] VITALS: BP 129/60; PULSE 64; O2SAT 100
== END 2024-01-14 04:25 | disposition home or self-care (01) ==
PROVIDERS: Emergency Provider Nurse Practitioner Family; PCP Physician Assistant
DX: R60.0 Localized edema (principal); E11.22 Type 2 diabetes mellitus with diabetic chronic kidney disease; I13.0 Hypertensive heart and chronic kidney disease with heart failure and stage 1 through stage 4 chronic kidney disease, or unspecified chronic kidney disease; N18.9 Chronic kidney disease, unspecified; I50.9 Heart failure, unspecified; I25.2 Old myocardial infarction; I25.5 Ischemic cardiomyopathy; I25.10 Atherosclerotic heart disease of native coronary artery without angina pectoris; E78.5 Hyperlipidemia, unspecified; Z86.73 Personal history of transient ischemic attack (TIA), and cerebral infarction without residual deficits; J44.9 Chronic obstructive pulmonary disease, unspecified; Z95.1 Presence of aortocoronary bypass graft; Z87.891 Personal history of nicotine dependence; Z79.82 Long term (current) use of aspirin; Z79.4 Long term (current) use of insulin; Z79.02 Long term (current) use of antithrombotics/antiplatelets
CPT/HCPCS: 71045; 74176; 80053; 81003; 81015; 83880; 84484; 85025; 87086; 87106; 93005; 99285

== ENCOUNTER 2024-01-16 22:55 | Emergency (ER) | payer MEDICARE, MEDICAID, SELFPAY ==
[2024-01-16 22:56] VITALS: BP 162/92; PULSE 98; RESP 100; TEMP 36.6; O2SAT 100; BMI 24.7
[2024-01-16 23:08] VITALS: BP 162/92; PULSE 94; RESP 16; O2SAT 100
--- NOTE | 2024-01-16 23:35 | XRR_ITS ---
PROCEDURE INFORMATION: Exam: XR Chest Exam date and time: 01/17/2024 12:04 AM Age: 73 years old Clinical indication: Shortness of breath; Prior surgery; Surgery date: 3-7 days post-operative; Surgery type: Mitral valve last week. Coronary stents; Patient HX: C/O worsening SOB. History of chf. TECHNIQUE: Imaging protocol: Radiologic exam of the chest. Views: 1 view. COMPARISON: CR XR chest 1V portable [id number] 01/14/2024 12:46 AM FINDINGS: Lungs: Emphysema. Hazy opacities of the lung bases concerning for pulmonary edema, improving compared to chest radiograph January 14, 2024. Pleural spaces: Improving small right pleural effusion. Heart/Mediastinum: Cardiomegaly. Bones/joints: Median sternotomy wires. Mediastinal clips. XR/XR chest 1V portable [id number] IMPRESSION: Improving but persistent pulmonary edema compared to January 14, 2024. Improving small right pleural effusion.
[2024-01-16 23:42] LABS: Basophils % 0.3 %; Eosinophils # 0.1 10^3/uL (0.0-0.8); Eosinophils % 0.8 %; Hematocrit 27.8 % (36-47); Lymphocytes # 1.2 10^3/uL (0.8-4.8); Lymphocytes % 18.1 %; Mean Corpuscular HGB Conc 30.2 g/dL (30-55); Mean Corpuscular Hemoglobin 24.8 pg (27-33); Mean Platelet Volume 10.4 fL (7.4-10.4); Monocytes # 0.3 10^3/uL (0.2-0.9); Monocytes % 4.1 %; Neutrophils # 4.96 10^3/uL (1.8-7.7); Neutrophils % 76.2 %; Nucleated Red Blood Cells % 0 %; Platelet Count 317 10^3/cmm (157-399); Red Blood Count 3.39 10^6/uL (3.85-5.65); Red Cell Distribution Width 19.9 % (12.1-15.1); White Blood Count 6.51 10^3/uL (3.29-11.43)
[2024-01-16 23:47] VITALS: BP 162/92; PULSE 99; RESP 16; O2SAT 100
[2024-01-16] MEDS: FUROsemide 10 mg/mL SDV 10mL 80 MG IVP (23:49)
[2024-01-16] MEDS: ipratropium-albuterol 3 mL Neb INHALATION (23:55)
[2024-01-16 23:57] VITALS: PULSE 98; RESP 20; O2SAT 100
--- NOTE | 2024-01-16 23:58 | ECG_ITS ---
[facility] Test Date: 2024-01-16 Pat Name: Romi Yuan Department: Room: Gender: Female Bridge Tender: : 1950 Requested By: Christian Huynh Order Number: [id number] Zarate MD: Tristin Goldstein M.D. Measurements Intervals [place]inger Rate: 98 P: 70 CO: 171 QRS: -46 QRSD: 111 T: 114 QT: 342 QTc: 437 Interpretive Statements SINUS RHYTHM LEFT AXIS DEVIATION [QRS AXIS < -30] MODERATE INTRAVENTRICULAR CONDUCTION DELAY [110+ ms QRS DURATION] MINIMAL VOLTAGE CRITERIA FOR LVH, CONSIDER NORMAL VARIANT [MEETS CRITERIA IN ONE OF: R(aVL), S(V1), R(V5), R(V5/V6)+S(V1)] ST DEVIATION AND MODERATE T-WAVE ABNORMALITY, CONSIDER LATERAL ISCHEMIA [-0.1+ mV T-WAVE IN I/aVL/V5/V6] Compared to ECG 01/14/2024 02:08:28 Intraventricular conduction delay now present T-wave abnormality now present Possible ischemia now present Sinus bradycardia no longer present Incomplete right bundle-branch block no longer present ST (T wave) deviation no longer present Electronically Signed On 01-18-2024 7:39:28 CDT by Tristin Goldstein M.D. [id number]
[2024-01-17 00:03] LABS: Lactic Sepsis W/Reflex 1.4 mmol/L (0.5-2.2)
[2024-01-17 00:07] LABS: Alanine Aminotransferase 24 U/L (0-33); Albumin Level 2.9 g/dL (3.5-5.2); Alkaline Phosphatase 222 U/L (35-105); Aspartate Amino Transferase 38 U/L (0-32); Blood Urea Nitrogen 56 mg/dL (8-23); Calcium 8.5 mg/dL (8.5-10.5); Carbon Dioxide 18 mmol/L (22-29); Chloride 103 mmol/L (98-107); Creatinine Clr Calc Pharmacy 19.9097; Globulin 3.7 g/dL (1.3-4.6); Glucose 184 mg/dL (65-115); Osmolality Calculated 300 mOsm/kg (285-295); Sodium 135 mmol/L (136-145); Total Bilirubin 0.2 mg/dL (0.15-1.2); Total Protein 6.6 g/dL (6.6-8.7)
[2024-01-17 00:08] LABS: Troponin(5th) Baseline 290 ng/L (0-10)
[2024-01-17 00:11] VITALS: PULSE 100; RESP 20; O2SAT 97
--- NOTE | 2024-01-17 00:15 | ED_ITS ---
HPI - SOB/Dyspnea 2 General: Chief Complaint: Shortness of Breath/Dyspnea Stated Complaint: SOB Time Seen by Provider: 01/16/24 23:04 History of Present Illness: HPI Narrative: 73-year-old female with significant hist ory of severe heart failure with reduced ejection fraction. She also has a history of severe mitral regurgitation, and is status post MitraClip procedure last week. She presents with worsening shortness of breath over the course of the day. She notes this started around noon. She is unaware if she was more swollen in her lower extremities or not. She is on home oxygen, and turned her oxygen up to 3 from 2 due to her shortness of breath. She took an extra dose of Lasix this afternoon without any improvement. She denies any fever. She has had a mild nonproductive cough. Related Data Home Medications Medication Instructions Recorded Confirmed umeclidinium 62.5 mcg-vilanterol 1 inh inhalation DAILY 07/20/19 01/07/24 25 mcg/actuation powdr for inhalation (Anoro Ellipta) acitretin 10 mg capsule 10 mg PO QAM 06/19/22 01/07/24 atorvastatin 40 mg tablet 40 mg PO BEDTIME 06/19/22 01/07/24 venlafaxine 75 mg capsule,extended See Rx Instructions .Route .COMPLEX 06/19/22 01/07/24 release 24 hr albuterol sulfate 90 mcg/actuation 2 puff inhalation QID PRN 07/09/22 01/07/24 aerosol inhaler (Ventolin HFA) Shortness Of Breath insulin lispro 100 unit/mL 3 - 4 unit SUBCUT TID 07/09/22 01/07/24 subcutaneous pen (Humalog KwikPen (U-100) Insulin) nitroglycerin 0.4 mg sublingual 0.4 mg sublingual Q5M PRN Chest 07/09/22 01/07/24 tablet (Nitrostat) Pain tizanidine 4 mg tablet 4 mg PO BEDTIME 07/09/22 01/07/24 empagliflozin 10 mg tablet 10 mg PO DAILY 09/07/22 01/07/24 (Jardiance) calcitriol 0.25 mcg capsule See Rx Instructions .Route .COMPLEX 06/17/23 01/07/24 ergocalciferol (vitamin D2) 1,250 50,000 unit PO Q7D 09/03/23 01/07/24 mcg (50,000 unit) capsule (Vitamin D2) insulin glargine 100 unit/mL (3 14 unit SUBCUT DAILY 09/03/23 01/07/24 mL) subcutaneous pen (Lantus Solostar U-100 Insulin) metoprolol succinate 50 mg 50 mg PO DAILY 11/12/23 01/07/24 tablet,extended release 24 hr acetaminophen 500 mg tablet 500 mg PO BEDTIME 11/29/23 01/07/24 ipratropium 0.5 mg-albuterol 3 mg 3 ml inhalation QID PRN Shortness 11/29/23 01/07/24 (2.5 mg base)/3 mL nebulization Of Breath soln ferrous sulfate 325 mg (65 mg 325 mg PO Q12H 12/27/23 01/07/24 iron) tablet (FeroSul) isosorbide mononitrate 60 mg 60 mg PO BID 12/27/23 01/07/24 tablet,extended release 24 hr sacubitril 49 mg-valsartan 51 mg 1 tab PO BID 12/27/23 01/07/24 tablet (Entresto) aspirin 81 mg tablet,delayed 81 mg PO QAM 01/07/24 01/07/24 release pantoprazole 40 mg tablet,delayed 40 mg PO BID 01/07/24 01/07/24 release Previous Rx's Medication Instructions Recorded methimazole 5 mg tablet 5 mg PO DAILY #30 tabs 03/11/20 blood sugar diagnostic (Accu-Chek #120 ea 06/23/21 Ana M Plus test strips) clopidogrel 75 mg tablet (Plavix) 75 mg PO DAILY #60 tabs 06/15/22 apixaban 2.5 mg tablet 2.5 mg PO BID #180 tabs 05/19/23 potassium chloride 10 mEq 10 meq PO DAILY #20 tabs 11/12/23 tablet,extended release furosemide 40 mg tablet 40 mg PO BID #60 tabs 12/28/23 hydralazine 50 mg tablet 100 mg (2 x 50 mg) PO TID Systolic 12/28/23 blood pressure more than 180 mmHg #7 tabs cefpodoxime 200 mg tablet 200 mg PO BID #20 tabs 01/07/24 Allergies Allergy/AdvReac Type Severity Reaction Status Date / Time cefuroxime [From Ceftin] Allergy ALGY-Rash Verified 12/26/23 10:54 cephalexin [From Keflex] Allergy ALGY-Rash Verified 12/26/23 10:54 hydroxyzine [From Vistaril] Allergy ALGY-Anaphy Verified 12/26/23 10:54 laxis Penicillins Allergy ALGY-Redness Verified 12/26/23 10:54 of Skin prochlorperazine Allergy ALGY-Anaphy Verified 12/26/23 10:54 [From Compazine] laxis promethazine [From Phenergan] Allergy ALGY-Anaphy Verified 12/26/23 10:54 laxis venom-honey bee Allergy ALGY-Anaphy Verified 12/26/23 10:54 laxis simvastatin [From Zocor] AdvReac ADR-Heartbu Verified 12/26/23 10:54 rn PFSH ED 2 PFSH: Medical History CAD (coronary artery disease) Carotid arterial disease NSTEMI (non-ST elevated myocardial infarction) Chronic kidney disease Diabetes mellitus Congestive heart failure Community acquired pneumonia Hypertension, uncontrolled Stable angina Anemia Ischemic cardiomyopathy Atherosclerotic heart disease of [place] coronary artery with other forms of angina pectoris CHF exacerbation Acute non-ST elevation myocardial infarction (NSTEMI) Pulmonary embolism Congestive heart failure Acute respiratory failure with hypoxia Acute exacerbation of CHF (congestive heart failure) PAD (peripheral artery disease) Dyslipidemia HTN (hypertension) Eczema Clostridioides difficile infection (07/2022) Insomnia CHF (congestive heart failure) Hypertensive urgency Pneumonia due to COVID-19 virus (~06/2022) Colon polyps History of skin cancer Hyperthyroidism Graves disease History of CVA (cerebrovascular accident) COPD (chronic obstructive pulmonary disease) Anxiety ASHD (arteriosclerotic heart disease) Surgical History Status post insertion of iliac artery stent History of coronary artery stent placement History of cardiac catheterization 06/25/2022 Left main artery: Short, patent. Left circumflex artery: Has patent stents, no significant stenosis. LAD:Occluded in the midsegment. RCA: Known occluded. Not injected. SVG to diagonal artery and SVG to RCA are known occluded. Not injected. LOVETT to LAD: Patent. Coronary anatomy unchanged compared to before. History of renal stent Hx of local excision of skin lesion (09/16/20) Left forearm x2 Status post colonoscopy (09/16/20) S/P hysterectomy with oophorectomy S/P cholecystectomy S/P CABG (coronary artery bypass graft) twice, last in 2004 History of endovascular stent graft for abdominal aortic aneurysm (AAA) S/P cataract surgery S/P skin and subcutaneous tissue surgery Family History Sister Mark's disease Sister No problems noted. Mother No problems noted. Other Anesthesia complication Social History Smoking and tobacco/nicotine status: former use of tobacco/nicotine Alcohol intake: current Alcohol intake frequency: holidays/special occasions only Substance/Drug Use: current Physical Exam 2 Const: COMMON NORMALS: no acute distress GENERAL APPEARANCE: cooperative, anxious, ill appearing (mildly) and frail appearing HENMT: COMMON NORMALS: normocephalic, atraumatic and Normal external nose present HEAD & SCALP: normocephalic and atraumatic FACE & SINUS: normal facial exam and face symmetric NOSE: Normal external nose present Eye: COMMON NORMALS: Equal, round and reactive pupils present and EOMs intact bilaterally PUPIL: Yes Equal, round and reactive pupils present Neck/C-Spine: GENERAL: Yes trachea midline Chest: CHEST: Yes Symmetrical chest wall rise Resp: COMMON NORMALS: normal respiratory effort, No retractions, No use of accessory muscles and clear to auscultation bilaterally AUSCULTATION: clear to auscultation bilaterally Cardio: COMMON NORMALS: regular rate and regular rhythm RATE: regular rate RHYTHM: regular rhythm GI: COMMON NORMALS: Normal to inspection, nondistended, normoactive bowel sounds present Extremity: COMMON NORMALS: no pedal edema Neuro: LOGAN COMA SCALE: document GCS findings Confluence coma scale eye opening: Spontaneous Confluence coma scale verbal response: Orientated Confluence coma scale motor response: Obey commands Confluence coma scale total score: 15 S ENSORY EXAM: Yes extremities (intact) Psych: COMMON NORMALS: speech normal SPEECH: Yes normal speech Skin: COMMON NORMALS: no rashes or lesions noted GENERAL SKIN EXAM: no rashes or lesions noted Course 2 Vital Signs: Vital signs: Vital Signs Temperature 97.8 F 01/16/24 22:56 Pulse Rate 87 01/17/24 03:56 Respiratory Rate 18 08/12/24 03:56 Blood Pressure 158/74 01/17/24 03:56 Pulse Oximetry 99 01/17/24 03:56 Oxygen Delivery Me thod Room Air 01/17/24 02:36 Oxygen Flow Rate 2 01/17/24 00:45 Fraction of Inspir ed Oxygen 2 01/17/24 00:11 MDM - SOB/Dyspnea Medical Decision Making 73-year-old female with significant heart failure history. She present with shortness of breath. Oxygen saturations have been 98% and above on her home O2 setting. Blood pressure currently is 158/74. Heart rate 87. Her hemoglobin is 8.4 which is essentially stable from prior. Her creatinine is 2 which is stable from prior. Delta troponin is not significant. BNP is stable. Chest x-ray is show improved pulmonary edema compared to 3 days ago. Blood gas shows a pH of 7.4 with a normal to elevated pO2, and mildly decreased bicarbonate. She received 80 mg of Lasix IV here, with some diuresis. With no increased oxygen demand, improvement in her symptoms as well as imaging, she will be allowed discharge. Close outpatient follow-up. Return for worsening. Lab Data 01/16/24 23:30 01/16/24 23:30 Labs/Radiology: Radiology Impressions Chest X-Ray 01/16/24 23:35 IMPRESSION: Improving but persistent pulmonary edema compared to January 14, 2024. Improving small right pleural effusion. Laboratory Results WBC 6.51 10^3/uL (3.29-11.43) 01/16/24 23:30 RBC 3.39 10^6/uL (3.85-5.65) L 01/16/24 23:30 Hgb 8.40 g/dL (11.27-16.99) L 01/16/24 23:30 Hct 27.8 % (36-47) L 01/16/24 23:30 MCV 82.0 fl (85-98) L 01/16/24 23:30 MCH 24.8 pg (27-33) L 01/16/24 23:30 MCHC 30.2 g/dL (30-55) 01/16/24 23:30 RDW 19.9 % (12.1-15.1) H 01/16/24 23:30 Plt Count 317 10^3/cmm (157-399) 01/16/24 23:30 MPV 10.4 fL (7.4-10.4) 01/16/24 23:30 Neut % (Auto) 76.2 % 01/16/24 23:30 Lymph % (Auto) 18.1 % 01/16/24 23:30 Stewart % (Auto) 4.1 % 01/16/24 23:30 Eos % (Auto) 0.8 % 01/16/24 23:30 Baso % (Auto) 0.3 % 01/16/24 23:30 Neut # (Auto) 4.96 10^3/uL (1.8-7.7) 01/16/24 23: Lymph # (Auto) 1.2 10^3/uL (0.8-4.8) 01/16/24 23:30 Stewart # (Auto) 0.3 10^3/uL (0.2-0.9) 01/16/24 23:30 Eos # (Auto) 0.1 10^3/uL (0.0-0.8) 01/16/24 23:30 Baso # (Auto) 0.0 10^3/uL (0.0-0.1) 01/16/24 23:30 Nucleated RBC % (auto) 0 % 01/16/24: Nucleated RBCs # 0.0 /100WBC 01/16/24 23:30 Specimen Type Arterial 01/16/24 00:10 Sample Site Brachial, right 01/16/24 00:10 ABG pH 7.40 (7.35-7.45) 01/16/24 00:10 ABG pCO2 29.8 mmHg (35-45) L 01/16/24 00:10 ABG pO2 125.0 mmHg (80.0-100.0) H 01/16/24 00:10 ABG HCO3 18.5 mmol/L (22-26) L 01/16/24 00:10 ABG Base Excess -5.6 mmol/L (-2.0-2.0) L 01/16/24 00:10 Rene Test N/a 01/16/24 00:10 Hematocrit 24.9 % (37-47) L 01/16/24 00:10 Hgb O2 Saturation 98.1 % (95-100) 01/16/24 00:10 Carboxyhemoglobin 1.2 %THgb (0.4-20.1) 01/16/24 00:10 Methemoglobin 0.4 % (0.4-1.5) 01/16/24 00:10 Total Hemoglobin 8.1 g/dL (12-16) L 01/16/24 00:10 O2 Delivery Device Nc 01/16/24 00:10 O2 Liters/Min 2.0 % 01/16/24 00:10 Legislative Director ID Shey 01/16/24 00:10 Sodium 135 mmol/L (136-145) L 01/16/24 23:30 Potassium 5.0 mmol/L (3.5-5.1) 01/16/24 23:30 Chloride 103 mmol/L (98-107) 01/16/24 23:30 Carbon Dioxide 18 mmol/L (22-29) L 01/16/24 23:30 Anion Gap 19.0 (5-19) 01/16/24 23:30 BUN 56 mg/dL (8-23) H 01/16/24 23:30 Creatinine 2.0 mg/dL (0.5-0.9) H 01/16/24 23:30 GFR Calculation Not Reportable 01/16/24 23:30 Glucose 184 mg/dL (65-115) H 01/16/24 23:30 Calculated Osmolality 300 mOsm/kg (285-295) H 01/16/24 23:30 Lactic Acid 1.4 mmol/L (0.5-2.2) 01/16/24 23:30 Calcium 8.5 mg/dL (8.5-10.5) 01/16/24 23:30 Total Bilirubin 0.2 mg/dL (0.15-1.2) 01/16/24 23:30 AST 38 U/L (0-32) H 01/16/24 23:30 ALT 24 U/L (0-33) 01/16/24 23:30 Alkaline Phosphatase 222 U/L (35-105) H 01/16/24 23:30 Troponin T Baseline 290 ng/L (0-10) H* 01/16/24 23:30 Troponin T 120 Minute 291.3 ng/L (0-10) H 01/17/24 01:25 Delta Troponin T 1.3 ABS# (0-10) 01/17/24 01:25 NT-Pro-B Natriuret Pep > 25868 pg/mL (0-125) H 01/16/24 23:30 Total Protein 6.6 g/dL (6.6-8.7) 01/16/24 23:30 Albumin 2.9 g/dL (3.5-5.2) L 01/16/24 23:30 Globulin 3.7 g/dL (1.3-4.6) 01/16/24 23:30 All radiology interpretation(s) finalized by discharge Discharge Plan Discharge Patient Disposition: Home Clinical Impression: Pulmonary edema Condition: Stable Prescriptions: No Action Anoro Ellipta 62.5-25 mcg/actuation blister with device 1 inh INHALATION DAILY Jardiance 10 mg tablet 10 mg PO DAILY apixaban 2.5 mg tablet 2.5 mg PO BID Qty: 180 2RF methimazole 5 mg tablet 5 mg PO DAILY Qty: 30 3RF (DME) Accu-Chek Ana M Plus test strp Strip See Rx Instructions .ROUTE .MEDSUPPLY Qty: 120 3RF Rx Instructions: check blood glucose four times a day tizanidine 4 mg tablet 4 mg PO BEDTIME nitroglycerin [Nitrostat] 0.4 mg Tablet, Sublingual 0.4 mg SUBLINGUAL Q5M PRN (Reason: Chest Pain) Rx Instructions: do not exceed 3 doses per episode insulin lispro [Humalog KwikPen Insulin] 100 unit/mL Insulin Pen 3 - 4 unit SUBCUT TID albuterol sulfate [Ventolin HFA] 90 mcg/actuation Hfa Aerosol Inhaler 2 puff INHALATION QID PRN (Reason: Shortness Of Breath) calcitriol 0.25 mcg capsule See Rx Instructions .ROUTE .COMPLEX Rx Instructions: TAKE 0.25 mcg orally 3 TIMES WEEKLY ON WEDNESDAY, WEDNESDAY, AND WEDNESDAY IN THE MORNING. metoprolol succinate 50 mg tablet extended release 24 hr 50 mg PO DAILY potassium chloride 10 mEq tablet extended release 10 meq PO DAILY Qty: 20 0RF Hold Instructions: Resume on 01/10/24. acetaminophen 500 mg Tablet 500 mg PO BEDTIME ipratropium-albuterol 0.5 mg-3 mg(2.5 mg base)/3 mL solution for nebulization 3 ml INHALATION QID PRN (Reason: Shortness Of Breath) aspirin 81 mg Tablet,Delayed Release (Dr/Ec) 81 mg PO QAM pantoprazole 40 mg tablet,delayed release (DR/EC) 40 mg PO BID cefpodoxime 200 mg tablet 200 mg PO BID Qty: 20 0RF Rx Instructions: must administer with a meal/food clopidogrel [Plavix] 75 mg tablet 75 mg PO DAILY Qty: 60 0RF atorvastatin 40 mg tablet 40 mg PO BEDTIME venlafaxine 75 mg capsule,extended release 24hr See Rx Instructions .ROUTE .COMPLEX Rx Instructions: TAKE 75 MG BY MOUTH AT BEDTIME ALONG WITH 150 MG acitretin 10 mg capsule 10 mg PO QAM insulin glargine [Lantus Solostar U-100 Insulin] 100 unit/mL (3 mL) insulin pen 14 unit SUBCUT DAILY ergocalciferol (vitamin D2) [Vitamin D2] 1,250 mcg (50,000 unit) capsule 50,000 unit PO Q7D Rx Instructions: WEDNESDAY EVENINGS isosorbide mononitrate 60 mg tablet extended release 24 hr 60 mg PO BID ferrous sulfate [FeroSul] 325 mg (65 mg iron) tablet 325 mg PO Q12H Entresto 49-51 mg tablet 1 tab PO BID Hold Instructions: Resume on 01/10/24. furosemide 40 mg tablet 40 mg PO BID Qty: 60 0RF hydralazine 50 mg tablet 100 mg PO TID Qty: 7 0RF Discharge Orders: Discharge ED (Routine); Ordered 01/17/24 Ordered By: Christian Mclaughlin Referrals: Jocelyne Kirby PA [Primary Care Provider] - 1-3 days Patient Instructions: Pulmonary Edema (ED), Opioid Safety, Pain Management Activity Restrictions/Additional Instructions: Resume your normal medications. Return for worsening shortness of breath despite treatment, significant chest discomfort, other concerning symptoms. Call your doctor this morning, let them know you were seen here, as they may want to follow-up with you sooner than normal. Coding Level of Care Code ED Windows Consultant for Kiran Holland
[2024-01-17 00:19] LABS: ABG PCO2 29.8 mmHg (35-45); Arterial Blood Gas Hematocrit 24.9 % (37-47); Base Excess ABG -5.6 mmol/L (-2.0-2.0); Blood Gas Operator Identificat BUSJA; Blood Gas Sample Site Brachial, right; Blood Gas Sample Type Arterial; Carboxyhemoglobin 1.2 %THgb (0.4-20.1); HCO3 ABG 18.5 mmol/L (22-26); HGB O2 Sat 98.1 % (95-100); Methemoglobin 0.4 % (0.4-1.5); Oxygen Device NC; Total Hemoglobin 8.1 g/dL (12-16)
[2024-01-17 00:20] VITALS: BP 211/116; PULSE 105; RESP 16; O2SAT 100
[2024-01-17 00:40] LABS: NT Pro B Type Natriuretic Pept > 70000 pg/mL (0-125)
[2024-01-17 00:45] VITALS: BP 194/90; PULSE 92; RESP 18; O2SAT 99
[2024-01-17 00:48] VITALS: BP 194/90; PULSE 105
[2024-01-17] MEDS: nitroglycerin 1 gm/inch oint Pkt 1 INCH TOPICAL (00:48)
[2024-01-17] MEDS: metoprolol tartrate 1 mg/1 mL SDV 5 mL 5 MG IVP (00:50)
[2024-01-17] MEDS: acetaminophen 500 mg Tablet 1000 MG PO (02:00)
[2024-01-17 02:20] LABS: Troponin 5 2HR Delta 1.3 ABS# (0-10)
[2024-01-17 02:21] LABS: Troponin 5 2HR 291.3 ng/L (0-10)
[2024-01-17 02:36] VITALS: BP 195/99; PULSE 87; RESP 20; O2SAT 99
[2024-01-17 03:56] VITALS: BP 158/74; PULSE 87; RESP 18; O2SAT 99
== END 2024-01-17 03:51 | disposition home or self-care (01) ==
PROVIDERS: Emergency Provider Emergency Medicine; PCP Physician Assistant
DX: J81.1 Chronic pulmonary edema (principal); Z79.4 Long term (current) use of insulin; Z79.82 Long term (current) use of aspirin; Z79.02 Long term (current) use of antithrombotics/antiplatelets; Z87.891 Personal history of nicotine dependence; Z95.1 Presence of aortocoronary bypass graft; I25.10 Atherosclerotic heart disease of native coronary artery without angina pectoris; I25.2 Old myocardial infarction; E11.22 Type 2 diabetes mellitus with diabetic chronic kidney disease; I13.0 Hypertensive heart and chronic kidney disease with heart failure and stage 1 through stage 4 chronic kidney disease, or unspecified chronic kidney disease; N18.9 Chronic kidney disease, unspecified; I50.9 Heart failure, unspecified; I25.5 Ischemic cardiomyopathy; E78.5 Hyperlipidemia, unspecified; Z86.73 Personal history of transient ischemic attack (TIA), and cerebral infarction without residual deficits; J44.9 Chronic obstructive pulmonary disease, unspecified
CPT/HCPCS: 36415; 71045; 80053; 82805; 83605; 83880; 84484; 85025; 93005; 94640; 96374; 96375; 99285; J1940; J3490

== ENCOUNTER 2024-01-21 11:48 | Emergency (ER) | payer MEDICARE, MEDICAID, SELFPAY ==
[2024-01-21] VITALS (9 sets, daily range): BP systolic 139–181; BP diastolic 65–77; PULSE 56–76; RESP 14–20; TEMP 36.4; O2SAT 97–100; BMI 24.7
--- NOTE | 2024-01-21 12:13 | CT_ITS ---
WS: [id number] CT HEAD NONCONTRAST HISTORY: altered mental status TECHNIQUE: Contiguous axial imaging performed through the brain in 2.5 mm imaging. Bone and soft tiss ue windows. Sagittal and coronal reformats reviewed. All CT scans at [facility] use at least one of these dose optimization techniques: automated exposure control; mA and/or kV adjustment per pa tient size (includes targeted exams where dose is matched to clinical indication); or iterative recon struction. DLP: 1055.08 mGy.cm COMPARISON: 12/16/2022 No acute intracranial hemorrhage, midline shift or mass effect. Mild bilateral atrophy and small vessel ischemic disease. Small lacunar infarcts in the RIGHT basal g anglia are unchanged. Bilateral thalami infarcts. Slightly greater size and number of infarcts in the LEFT thalamus. No progression since the prior study. Ventricles: Normal size with no hydrocephalus. Reidentified is a retrocerebellar arachnoid cyst with very minimal mass effect upon the central cereb ellum. Volume loss and encephalomalacia in the LEFT cerebellum from a prior infarct is unchanged. Paranasal sinuses: As visualized are clear. Mastoid air cells: Well pneumatized. Calvarium and scalp: Skull is intact with no soft tissue edema or swelling. CT/CT head wo con* [id number] IMPRESSION: 1. No acute intracranial hemorrhage or edema. 2. Bilateral lacunar infarcts. Similar distribution as 12/16/2022 with no progr ession. 3. Stable retrocerebellar arachnoid cyst. 4. Remote stable LEFT cerebellar infarct. 5. No acute hemorrhage.
--- NOTE | 2024-01-21 12:13 | XR_ITS ---
WS: [id number] Examination: XR chest 1V portable [id number] Reason for Exam: altered mental status Date: January 21, 2024 Comparison: January 17, 2024 Findings: The heart is enlarged. The mediastinum is not widened. Sternal wires are in place. The lung markings are less prominent than on the previous study with improving edema. A small right e ffusion is suspected. XR/XR chest 1V portable [id number] IMPRESSION: There is cardiomegaly with improving edema.
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
--- NOTE | 2024-01-21 12:40 | ECG_ITS ---
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 Measurements Intervals [place] Rate: 57 P: -39 NH: 139 QRS: -39 QRSD: 126 T: 71 QT: 459 QTc: 449 Interpretive Statements SINUS BRADYCARDIA LEFT AXIS DEVIATION [QRS AXIS < -30] MODERATE INTRAVENTRICULAR CONDUCTION DELAY [105+ ms QRS DURATION, 80+ ms Q/S IN V1/V2, NO Q AND 60+ ms R IN I/aVL/V5/V6] MODERATE ST DEPRESSION [0.05+ mV ST DEPRESSION] Compared to ECG 01/16/2024 23:58:02 ST (T wave) deviation now present Sinus rhythm no longer present T-wave abnormality no longer present Possible ischemia no longer present Electronically Signed On 01-21-2024 13:31:30 CDT by Tristin Goldstein M.D. [email or web address]
[2024-01-21 12:55] LABS: Basophils # 0.1 10^3/uL (0.0-0.1); Basophils % 0.2 %; Hematocrit 31.9 % (36-47); Lymphocytes # 0.5 10^3/uL (0.8-4.8); Lymphocytes % 1.7 %; Mean Corpuscular HGB Conc 29.8 g/dL (30-55); Mean Corpuscular Hemoglobin 24.9 pg (27-33); Mean Corpuscular Volume 83.7 fl (85-98); Mean Platelet Volume 10.6 fL (7.4-10.4); Monocytes % 3.3 %; Neutrophils # 28.29 10^3/uL (1.8-7.7); Neutrophils % 93.6 %; Nucleated Red Blood Cells # 0.1 /100WBC; Nucleated Red Blood Cells % 0.2 %; Platelet Count 441 10^3/cmm (157-399); Red Blood Count 3.81 10^6/uL (3.85-5.65); Red Cell Distribution Width 21.6 % (12.1-15.1)
[2024-01-21 13:16] LABS: White Blood Count 30.22 10^3/uL (3.29-11.43)
[2024-01-21] MEDS: sodium chloride 0.9% 500 ML IV (13:20)
[2024-01-21] MEDS: acetaminophen 325 mg Tablet 650 MG PO (13:24)
[2024-01-21 13:26] LABS: Troponin(5th) Baseline 211 ng/L (0-10)
[2024-01-21 13:27] LABS: Lactic Sepsis W/Reflex 5.9 mmol/L (0.5-2.2)
[2024-01-21 13:28] LABS: Charge for UA Resulting for Rev
[2024-01-21 13:34] LABS: Alanine Aminotransferase 44 U/L (0-33); Albumin Level 3.6 g/dL (3.5-5.2); Alkaline Phosphatase 392 U/L (35-105); Aspartate Amino Transferase 77 U/L (0-32); C Reactive Protein 67.8 mg/L (0.0-4.9); Calcium 9.1 mg/dL (8.5-10.5); Carbon Dioxide 13 mmol/L (22-29); Chloride 96 mmol/L (98-107); Creatine Phosphokinase 102 U/L (26-192); Creatinine Clr Calc Pharmacy 8.6564; Globulin 3.3 g/dL (1.3-4.6); Glucose 230 mg/dL (65-115); Osmolality Calculated 313 mOsm/kg (285-295); Sodium 133 mmol/L (136-145); Total Bilirubin 0.9 mg/dL (0.15-1.2); Total Protein 6.9 g/dL (6.6-8.7)
[2024-01-21 13:44] LABS: Anion Gap 30.9 (5-19); Blood Urea Nitrogen 96 mg/dL (8-23); Potassium 6.9 mmol/L (3.5-5.1)
[2024-01-21] MEDS: calcium gluconate 0.1 gm/mL 10% SDV 10mL 1 GM IVP (13:55)
[2024-01-21 14:01] LABS: NT Pro B Type Natriuretic Pept > 70000 pg/mL (0-125)
--- NOTE | 2024-01-21 14:08 | CTR_ITS ---
PROCEDURE INFORMATION: Exam: CT Chest Without Contrast; Diagnostic Exam date and time: 01/21/2024 3:28 PM Age: 73 years old Clinical indication: Abdominal tenderness; Angina and dyspnea; Prior surgery; Surgery date: 6+ months; Surgery type: Heart; Additional info: Sepsis TECHNIQUE: Imaging protocol: Diagnostic computed tomography of the chest without contrast. Radiation optimization: All CT scans at this facility use at least one of these dose optimization techniques: automated exposure control; mA and/or kV adjustment per patient size (includes targeted exams where dose is matched to clinical indication); or iterative reconstruction. COMPARISON: CT angio chest PE protcl [id number] 02/27/2023 1:00 AM RADIATION DOSE METRICS: Total DLP (mGy-cm): 610.78 FINDINGS: Tubes, catheters and devices: There are sternal wires consistent with previous sternotomy incision. Thyroid: Nodular thyroid gland which may be followed up with ultrasound in a nonemergent setting. Lungs: Right lower lobe compressive atelectasis. Linear atelectasis and scarring in the left lower lobe. Bilateral bronchial wall thickening. Pleural spaces: Moderate right pleural effusion. Heart: Severe aortic valve calcifications. Prior mitral valve clipping. Severe cardiomegaly. Increased density to the left ventricular myocardium when compared with the blood pool, favoring anemia. Coronary arteries: Prior CABG. Severe calcific coronary artery disease. Coronary artery stents are suggested in the left circumflex and RCA. Mediastinal space: Scattered calcified granulomas throughout the mediastinum are benign. Lymph nodes: No concerning mediastinal, hilar, or axillary adenopathy by CT size criteria. Vasculature: Severe aortic calcifications without aneurysm formation. Bones/joints: Bone demineralization. Moderate multilevel degenerative changes of the spine, as manifested by multilevel anterior osteophytes and multilevel decrease in intervertebral disc space. No acutely displaced fractures. No aggressive osseous lesions. Soft tissues: Moderate body wall edema. Other findings: Benign right hilar calcified granulomas. PROCEDURE INFORMATION: Exam: CT Abdomen And Pelvis Without Contrast Exam date and time: 01/21/2024 3:28 PM Age: 73 years old Clinical indication: Abdominal tenderness; Angina and dyspnea; Prior surgery; Surgery date: 6+ months; Surgery type: Heart; Additional info: Sepsis TECHNIQUE: Imaging protocol: Computed tomography of the abdomen and pelvis without contrast. Radiation optimization: All CT scans at this facility use at least one of these dose optimization techniques: automated exposure control; mA and/or kV adjustment per patient size (includes targeted exams where dose is matched to clinical indication); or iterative reconstruction. COMPARISON: CT kidney stone [id number] 01/14/2024 12:54 AM RADIATION DOSE METRICS: Total DLP (mGy-cm): 610.78 FINDINGS: Liver: Liver is enlarged measuring 18 cm. Slightly nodular liver contour, concerning for early hepatocellular disease. Correlation with pertinent labs is recommended. Scattered calcified liver granulomas are benign. Gallbladder and biliary ducts: Prior cholecystectomy. Pancreas: There is diffuse, benign fatty infiltration of the pancreas. There is diffuse atrophy of the pancreatic parenchyma. Spleen: The spleen demonstrates punctate calcifications, consistent with remote granulomatous organism exposure. Adrenal glands: Symmetric thickening of the adrenal glands, likely senile or related to an acute illness. Kidneys and ureters: There is a simple cyst in the right kidney measuring 1.7 cm. No follow-up is recommended. Small and slightly atrophied right kidney. 1.4 cm hyperdense exophytic left renal lesion, likely a proteinaceous/hemorrhagic cyst however incompletely characterized and ultrasound correlation is recommended. Stomach and bowel: Diffuse colonic diverticulosis. No bowel obstruction or significant bowel wall thickening. There is mildly excessive colonic stool content. Appendix: No evidence of appendicitis. Intraperitoneal space: Trace abdominopelvic ascites. Vasculature: 3.1 cm infrarenal abdominal aortic aneurysm. Aorto bi-iliac stent. The arterial vasculature demonstrates diffuse marked atherosclerotic calcification. Lymph nodes: No retroperitoneal, pelvic, or mesenteric adenopathy. Urinary bladder: Unremarkable as visualized. Reproductive: There has been a hysterectomy. Bones/joints: Bone demineralization. Chronic superior endplate compression fracture of L2 with about 40% loss in vertebral body height. Severe multilevel degenerative changes of the spine, as manifested by multilevel anterior osteophytes and multilevel decrease in intervertebral disc space. Bilateral pars interarticularis defects at L5-S1 with grade 1 anterolisthesis. No acutely displaced fractures. No aggressive osseous lesions. Soft tissues: Severe diffuse subcutaneous edema. Calcified subcutaneous granulomas ventral pelvic wall. CT/[place] [id number] IMPRESSION: 1. Moderate right pleural effusion. 2. Moderate body wall edema. 3. Acute/chronic bronchitis, reactive airways disease, or early peribronchial edema. 4. Incidental findings as above. IMPRESSION: 1. 3.1 cm infrarenal abdominal aortic aneurysm. 2. Moderate interstitial third-spacing/volume overload. 3. Incidental findings as above. COMMENTS: Consistent with the [employer]'s Incidental Findings Committee white paper (J Am Zayra Radiol 2018): Any incidental renal lesion less than 1 cm or classified as too small to characterize, or any incidental cystic renal lesion characterized as simple-appearing, is likely benign. No follow-up imaging is recommended for these lesions per consensus recommendations based on imaging criteria.
[2024-01-21 14:12] LABS: Urine Appearance Slightly Cloudy (CLEAR); Urine Color Yellow (Yellow)
[2024-01-21 14:13] LABS: Mucus Urine 1+ /hpf; RBC Urine 0-4 /hpf (0-2); Squamous Epithelial Cell Urine 0-4 /hpf (0-5); UA Manual Slide Review YES; UA Slide Review UA Slide Review Perf; WBC Urine 0-4 /hpf (0-5)
--- NOTE | 2024-01-21 14:16 | ECG_ITS ---
[facility] Test Date: 2024-01-21 Pat Name: Romi Yuan Department: Room: Gender: Female [employer]gl[employer] Investigator: : 1950 Requested By: Sean Varghese Order Number: [id number] Reading MD: JASON HAMILTON Measurements Intervals [place] Rate: 56 P: -45 TX: 137 QRS: -45 QRSD: 123 T: -29 QT: 473 QTc: 457 Interpretive Statements SINUS BRADYCARDIA LEFT AXIS DEVIATION [QRS AXIS < -30] MODERATE INTRAVENTRICULAR CONDUCTION DELAY [105+ ms QRS DURATION, 80+ ms Q/S IN V1/V2, NO Q AND 60+ ms R IN I/aVL/V5/V6] MODERATE ST DEPRESSION [0.05+ mV ST DEPRESSION] Compared to ECG 01/21/2024 12:40:30 No significant changes Electronically Signed On 01-22-2024 20:27:51 CDT by JASON HAMILTON [id number]
[2024-01-21] MEDS: doxycycline 100 MG in sodium chloride 0.9% (plus) 100 ML IV (14:20)
[2024-01-21 14:40] LABS: Reflex Lactate Order REFLEX LACTIC ORDERD
[2024-01-21] MEDS: ondansetron 2 mg/ML SDV 2 mL 4 MG IVP (14:46)
[2024-01-21] MEDS: fentaNYL 50 mcg/mL INJ 2mL 12.5 MCG IVP (14:46)
[2024-01-21] MEDS: fentaNYL 50 mcg/mL INJ 2mL 25 MCG IVP (15:01)
[2024-01-21] MEDS: aztreonam 1,000 MG in sodium chloride 0.9% (plus) 50 ML 100 MG IV (15:12)
[2024-01-21 15:14] LABS: ABG PCO2 27.5 mmHg (35-45); ABG PH Result 7.27 (7.35-7.45); Arterial Blood Gas Hematocrit 27.7 % (37-47); Base Excess ABG -13.2 mmol/L (-2.0-2.0); Blood Gas Allen Test Pos; Blood Gas Operator Identificat BROMA; Blood Gas Sample Site Brachial, left; Blood Gas Sample Type Arterial; HCO3 ABG 12.5 mmol/L (22-26); Oxygen Device ROOM AIR; PO2 ABG 79.7 mmHg (80.0-100.0); PO2 FiO2 Ratio Arterial Blood 379
[2024-01-21 15:22] LABS: Lactic Acid level (Lactate) 4.6 mmol/L (0.5-2.2)
[2024-01-21 15:39] LABS: Adenovirus Not Detected (NOT DETECT); Chlamydia Pneumoniae Not Detected (NOT DETECT); Coronavirus 229E,HKU1,NL63,OC4 Not Detected (NOT DETECT); Human Metapneumovirus Not Detected (NOT DETECT); Human Rhinovirus/Enterovirus Not Detected (NOT DETECT); Influenza A Not Detected (NOT DETECT); Influenza A H1 Not Detected (NOT DETECT); Influenza A H1-2009 Not Detected (NOT DETECT); Influenza A H3 Not Detected (NOT DETECT); Influenza B Not Detected (NOT DETECT); Mycoplasma Pneumoniae Not Detected (NOT DETECT); Parainfluenza Virus Type 1 Not Detected (NOT DETECT); Parainfluenza Virus Type 2 Not Detected (NOT DETECT); Parainfluenza Virus Type 3 Not Detected (NOT DETECT); Parainfluenza Virus Type 4 Not Detected (NOT DETECT); Respiratory Syncytial Virus A Not Detected (NOT DETECT); Respiratory Syncytial Virus B Not Detected (NOT DETECT)
[2024-01-21 15:41] LABS: SARS-COV-2 Detected (NOT DETECT)
[2024-01-21] MEDS: sodium bicarbonate 150 MEQ in dextrose 5% 200 ML 700 MEQ IV (16:45)
[2024-01-21] MEDS: sodium bicarbonate 8.4% syr 150 MEQ in dextrose 5% 200 ML 700 MEQ IV (16:50)
[2024-01-21] MEDS: insulin regular-human 100 units/1 mL 9 UNIT IVP (16:58)
[2024-01-21] MEDS: sodium polystyrene sulfonate 15 gm/60 mL Btl PO (16:58)
[2024-01-21] MEDS: vancomycin 1,000 MG in sodium chloride 0.9% 250 ML 250 MG IV (16:59)
--- NOTE | 2024-01-22 04:44 | PC.NURSE ---
Reported (+) Gram cocci in clusters blood culture result to JUANI MICU to Matthew RODRIGUEZ
== END 2024-01-21 18:30 | disposition short-term general hospital (02) ==
PROVIDERS: Emergency Provider Emergency Medicine; PCP Physician Assistant
DX: A41.9 Sepsis, unspecified organism (principal); U07.1 COVID-19; N17.9 Acute kidney failure, unspecified; E87.5 Hyperkalemia; Z79.4 Long term (current) use of insulin; Z79.82 Long term (current) use of aspirin; Z79.02 Long term (current) use of antithrombotics/antiplatelets; Z87.891 Personal history of nicotine dependence; Z95.1 Presence of aortocoronary bypass graft; J44.9 Chronic obstructive pulmonary disease, unspecified; I25.10 Atherosclerotic heart disease of native coronary artery without angina pectoris; I25.2 Old myocardial infarction; E11.22 Type 2 diabetes mellitus with diabetic chronic kidney disease; I13.0 Hypertensive heart and chronic kidney disease with heart failure and stage 1 through stage 4 chronic kidney disease, or unspecified chronic kidney disease; N18.9 Chronic kidney disease, unspecified; I50.9 Heart failure, unspecified; I25.5 Ischemic cardiomyopathy; E78.5 Hyperlipidemia, unspecified; Z86.73 Personal history of transient ischemic attack (TIA), and cerebral infarction without residual deficits
CPT/HCPCS: 36600; 70450; 71045; 71250; 74176; 80053; 81003; 81015; 82550; 82803; 83605; 83880; 84484; 85025; 86140; 87040; 87077; 87150; 87186; 87205; 87486; 87581; 87633; 93005; 96365; 96366; 96367; 96375; 96376; 99291; 99292; J0612; J1815; J2405; J3010; J3370; J3490; J7030; J7040; J7050; J7060